=== PATIENT | male | born 1945 | race Caucasian/White ===

== ENCOUNTER 2016-11-27 08:29 | Outpatient (RCR) | payer MEDICARE, OTHER ==
[2016-09-04 15:35] LABS: BASOPHILS % (AUTO) 0 % (0-10); EOSINOPHILS # (AUTO) 0.3 10^3/uL (0.0-0.3); EOSINOPHILS % (AUTO) 5 % (0-10); LYMPHOCYTES # (AUTO) 1.1 X 10^3 (1.0-4.0); LYMPHOCYTES % (AUTO) 18 % (12-44); MEAN CORPUSCULAR HEMOGLOBIN 31 PG (25-34); MEAN CORPUSCULAR HGB CONC 34 G/DL (32-36); MEAN CORPUSCULAR VOLUME 90 FL (80-99); MONOCYTES # (AUTO) 0.7 X 10^3 (0.0-1.0); MONOCYTES % (AUTO) 12 % (0-12); NEUTROPHILS # (AUTO) 3.9 X 10^3 (1.8-7.8); NEUTROPHILS % (AUTO) 65 % (42-75); PLATELET COUNT 233 10^3/uL (130-400); RED BLOOD COUNT 4.46 10^6/uL (4.35-5.85); RED CELL DISTRIBUTION WIDTH 13.9 % (10.0-14.5); WHITE BLOOD COUNT 6.1 10^3/uL (4.3-11.0)
[2016-09-04 16:07] LABS: BILIRUBIN,TOTAL 0.6 MG/DL (0.1-1.0); CREATININE SERUM 1.68 MG/DL (0.60-1.30); MAGNESIUM 2.1 MG/DL (1.8-2.4); TOTAL PROTEIN 6.6 G/DL (6.4-8.2)
[~2016-11-27 08:29] MED LIST: AMIO200T50 PO; AMLO-304 PO; ASP325TEC PO; ASP81CT PO; ASP81TEC PO; ASPI-999 PO; ATOR80TA PO; ATOR80TA75 PO; CEPH500C PO; CLOP75TA PO; E400C PO; EZET10TA23 PO; EZET1TAB16; EZET1TAB16 PO; EZET1TAB44 PO; FENO135C PO; FINA5TAB PO; FISH1CAP15 PO; METO-272 PO; METO100T5 PO; MULT-1029 PO; MULT-850 PO; OMEP20CA12 PO; OMEP20TA2 PO; OMG1KC PO; PRAS10TA6 PO; RABE20TA PO; RAMI10TA PO; RAMI5CAP PO; RMP5C PO; RNT150T PO; VITA-198 PO; WARF-48 PO; WARF5TAB PO; WARF7.5T PO; WRF2.5T PO; WRF5T PO
[2016-11-27 08:48] LABS: BASOPHILS % (AUTO) 1 % (0-10); EOSINOPHILS # (AUTO) 0.4 10^3/uL (0.0-0.3); EOSINOPHILS % (AUTO) 6 % (0-10); LYMPHOCYTES # (AUTO) 1.6 X 10^3 (1.0-4.0); LYMPHOCYTES % (AUTO) 24 % (12-44); MEAN CORPUSCULAR HEMOGLOBIN 32 PG (25-34); MEAN CORPUSCULAR HGB CONC 36 G/DL (32-36); MEAN CORPUSCULAR VOLUME 90 FL (80-99); MEAN PLATELET VOLUME 9.6 FL (7.4-10.4); MONOCYTES % (AUTO) 16 % (0-12); NEUTROPHILS # (AUTO) 3.6 X 10^3 (1.8-7.8); NEUTROPHILS % (AUTO) 55 % (42-75); PLATELET COUNT 211 10^3/uL (130-400); RED CELL DISTRIBUTION WIDTH 13.3 % (10.0-14.5); WHITE BLOOD COUNT 6.6 10^3/uL (4.3-11.0)
[2016-11-27 09:49] LABS: ALBUMIN 4.1 G/DL (3.2-4.5); BILIRUBIN,TOTAL 0.8 MG/DL (0.1-1.0); CALCIUM 9.1 MG/DL (8.5-10.1); CREATININE SERUM 1.51 MG/DL (0.60-1.30); POTASSIUM 4.5 MMOL/L (3.6-5.0); TOTAL PROTEIN 6.9 G/DL (6.4-8.2)
== END 2016-12-03 | disposition home or self-care (01) ==
LOC: ONC 08:29
PROVIDERS: ATTEND Internal Medicine Hematology & Oncology
DX: C91.10 Chronic lymphocytic 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 (principal); I25.10 Atherosclerotic heart disease of native coronary artery without angina pectoris; I10 Essential (primary) hypertension; E11.9 Type 2 diabetes mellitus without complications; E78.5 Hyperlipidemia, unspecified; Z95.1 Presence of aortocoronary bypass graft; Z79.01 Long term (current) use of anticoagulants; Z79.899 Other long term (current) drug therapy; Z45.2 Encounter for adjustment and management of vascular access device
CPT/HCPCS: 36591; 80053; 82232; 82784; 83615; 83735; 85025; 96523; 99213

== ENCOUNTER → 2016-12-26 | Outpatient (CLI) | payer MEDICARE, OTHER ==
[~2016-12-26] MED LIST changes: +TRAM50TA2 PO
--- NOTE | 2016-12-26 14:20 | Diagnostic Imaging Report ---
INDICATION: Pneumonia, cough. Study compared to 09/15/2015. FINDINGS: Lungs are clear. The heart and vessels normal. There is no effusion or pneumothorax. IMPRESSION: No acute-appearing abnormality. Dictated by: Dictated on workstation # [id number]
== END ==
LOC: RAD 09:44
PROVIDERS: ATTEND Nurse Practitioner Family
DX: J18.9 Pneumonia, unspecified organism (principal); R05 Cough
CPT/HCPCS: 71020

== ENCOUNTER 2017-01-30 09:31 | Outpatient (RCR) | payer MEDICARE, OTHER ==
[~2017-01-30 09:31] MED LIST changes: -TRAM50TA2 PO
== END 2017-01-30 12:01 | disposition home or self-care (01) ==
PROVIDERS: ATTEND Orthopaedic Surgery
DX: M25.511 Pain in right shoulder (principal); M75.111 Incomplete rotator cuff tear or rupture of right shoulder, not specified as traumatic

== ENCOUNTER 2017-02-18 10:19 | Outpatient (RCR) | payer MEDICARE, OTHER ==
[2017-02-18 10:44] LABS: BASOPHILS % (AUTO) 0 % (0-10); EOSINOPHILS # (AUTO) 0.3 10^3/uL (0.0-0.3); EOSINOPHILS % (AUTO) 3 % (0-10); LYMPHOCYTES # (AUTO) 1.7 X 10^3 (1.0-4.0); LYMPHOCYTES % (AUTO) 22 % (12-44); MEAN CORPUSCULAR HEMOGLOBIN 32 PG (25-34); MEAN CORPUSCULAR HGB CONC 35 G/DL (32-36); MEAN CORPUSCULAR VOLUME 91 FL (80-99); MEAN PLATELET VOLUME 9.9 FL (7.4-10.4); MONOCYTES # (AUTO) 0.7 X 10^3 (0.0-1.0); MONOCYTES % (AUTO) 9 % (0-12); NEUTROPHILS % (AUTO) 66 % (42-75); PLATELET COUNT 229 10^3/uL (130-400); RED BLOOD COUNT 4.74 10^6/uL (4.35-5.85); WHITE BLOOD COUNT 7.6 10^3/uL (4.3-11.0)
[2017-02-18 11:09] LABS: ALBUMIN 3.9 G/DL (3.2-4.5); BILIRUBIN,TOTAL 0.9 MG/DL (0.1-1.0); CREATININE SERUM 1.59 MG/DL (0.60-1.30); POTASSIUM 4.2 MMOL/L (3.6-5.0); TOTAL PROTEIN 6.5 G/DL (6.4-8.2)
[2017-03-12] MEDS ORDERED: TRAM50TA2 PO (09:00)
== END 2017-03-25 | disposition home or self-care (01) ==
LOC: ONC 10:19
PROVIDERS: ATTEND Internal Medicine Hematology & Oncology
DX: C91.10 Chronic lymphocytic 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 (principal); I25.10 Atherosclerotic heart disease of native coronary artery without angina pectoris; I10 Essential (primary) hypertension; E11.9 Type 2 diabetes mellitus without complications; E78.5 Hyperlipidemia, unspecified; Z95.1 Presence of aortocoronary bypass graft; Z79.01 Long term (current) use of anticoagulants; Z79.899 Other long term (current) drug therapy; Z45.2 Encounter for adjustment and management of vascular access device
CPT/HCPCS: 36591; 80053; 82232; 83615; 85025; 96523; 99213

== ENCOUNTER 2017-03-05 08:40 | Outpatient (CLI) | payer MEDICARE, OTHER ==
[~2017-03-05] VITALS: Ht 172.7 cm; Wt 90.0 kg
[2017-03-05 08:57] VITALS: BP 158/88
== END 2017-03-05 09:17 | disposition home or self-care (01) ==
LOC: PREOP 08:40
PROVIDERS: ATTEND Surgery
DX: Z01.818 Encounter for other preprocedural examination (principal); Z11.2 Encounter for screening for other bacterial diseases; C85.10 Unspecified B-cell lymphoma, unspecified site
CPT/HCPCS: 87081

== ENCOUNTER 2017-03-12 06:00 | Day surgery (SDC) | payer MEDICARE, OTHER ==
[~2017-03-12] VITALS: Ht 172.7 cm; Wt 90.0 kg
[2017-03-12] MEDS ORDERED: LACTATED RINGERS 1,000 ML IV PRN (06:22)
[2017-03-12 06:30] VITALS: BP 140/87
[2017-03-12] MEDS ORDERED: ceFAZolin 1,000 MG (ANCEF) VIAL ONE (06:39)
[2017-03-12] MEDS ORDERED: NS (IVPB) 50 ML ONE (06:40)
[2017-03-12] MEDS ORDERED: ceFAZolin 1 GM/NS 50 ML IVPB IV ONE ×2 (06:45)
[2017-03-12] MEDS ORDERED: CATHETER FLUSH 10 ML SYR IV PRN (07:00)
[2017-03-12] MEDS ORDERED: BUP/EPI 0.25% 1:200,000 (MARCAINE) 30 ML VIAL ONE (07:12)
[2017-03-12] MEDS ORDERED: MIDAZOLAM 2 MG/2 ML (VERSED) VIAL ONE (07:14)
[2017-03-12] MEDS ORDERED: LACTATED RINGERS 1,000 ML IV ONE (07:14)
[2017-03-12] MEDS ORDERED: proPOfol 200 MG/20 ML (DIPRIVAN) VIAL IV ONE (07:14)
--- NOTE | 2017-03-12 08:29 | Progress Note-Pre Operative ---
Pre-Operative Progress Note H&P Reviewed The H&P was reviewed, patient examined and no changes noted. Date H&P Reviewed: Mar 12, 2017 Time H&P Reviewed: 08:29 Pre-Operative Diagnosis: Treated lymphoma KINJAL PORTER MD Mar 12, 2017 8:29 am
--- NOTE | 2017-03-12 08:57 | Progress Note-Post Operative ---
Post-Operative Progess Note Surgeon (s)/Histologic Aide (s) Surgeon KINJAL PORTER MD Histologic Aide: Kat Pre-Operative Diagnosis Treated lymphoma Post-Operative Diagnosis same Post-Op Procedure Note Date of Procedure: Mar 12, 2017 Name of Procedure Performed: removal of [id number] Description of the Procedure: see operative report Findings of the Procedure see operative report Anesthesia Type sedation with local Estimated blood loss (mL): minimal Specimen(s) collected/removed none KINJAL PORTER MD Mar 12, 2017 8:57 am
--- NOTE | 2017-03-12 08:59 | Discharge Inst-Simple/Standard ---
Discharge Inst-Standard Discharge Medications New, Converted or Re-Newed RX: RX on Chart Patient Instructions/Follow Up Plan of Care/Instructions/FU: dressings off in 48 hours. Activity as Tolerated: Yes Discharge Diet: No Restrictions KINJAL PORTER MD Mar 12, 2017 8:59 am
[2017-03-12] MEDS ORDERED: TRAM50TA2 PO (09:00)
[2017-03-12] MEDS ORDERED: morphine INJ 10 MG/ML 1ML (SYR OR VIAL) IVP PRN (09:15)
[2017-03-12 09:25] VITALS: BP 141/76
[2017-03-12 09:55] VITALS: BP 147/83
--- NOTE | 2017-03-12 23:22 | OPERATIVE REPORT ---
DATE OF SERVICE: 03/12/2017 PREOPERATIVE DIAGNOSIS: Treated lymphoma. POSTOPERATIVE DIAGNOSIS: Treated lymphoma. OPERATION: Removal of Infusaport. SURGEON: Kinjal Porter MD ANESTHESIA: Sedation with local. BLOOD LOSS: Minimal. FLUIDS: 500 mL of crystalloid. WOUND TYPE: Type 1 (clean wound). INDICATION FOR PROCEDURE: This gentleman has completed systemic therapy to manage lymphoma. Therefore, it was felt reasonable to remove the Infusaport, after confirming with his oncologist. Informed consent was obtained after reviewing the procedure in detail. DESCRIPTION OF PROCEDURE: He was placed supine on the operating room table, and our anesthesiologist administered sedation, monitored his vital signs. A gram of Ancef was administered intravenously as prophylaxis against wound infection. Sequential compression devices were placed around his legs to minimize the risk of venous thrombosis. His right infraclavicular fossa was prepared and draped in the usual sterile manner. Local anesthesia was achieved using 0.25% Marcaine with epinephrine. A secondary incision was made along the previous scar, and the Infusaport removed without risking air embolism. The pocket was irrigated with saline, and the incision closed using 3-0 Vicryl for the subcutaneous tissue and 4-0 Vicryl for skin in subcuticular fashion. He tolerated the procedure well and was taken to the recovery room in a stable condition. Needle, sponges and instruments were correct at the end of the operation. Job ID: [id number] DocumentID: [id number] Dictated Date: 03/12/2017 08:54:35 Phone Specialist Date: 03/12/2017 23:03:40 Dictated By: KINJAL PORTER MD [facility]
== END 2017-03-12 10:10 | disposition home or self-care (01) ==
LOC: SDC 06:00
PROVIDERS: ATTEND Surgery
DX: Z08 Encounter for follow-up examination after completed treatment for malignant neoplasm (principal); Z85.72 Personal history of non-Hodgkin lymphomas

== ENCOUNTER 2017-05-27 08:47 | Outpatient (RCR) | payer MEDICARE, OTHER ==
[~2017-05-27 08:47] MED LIST changes: +TRAM50TA2 PO
[2017-05-27 09:17] LABS: BASOPHILS % (AUTO) 1 % (0-10); EOSINOPHILS # (AUTO) 0.4 10^3/uL (0.0-0.3); EOSINOPHILS % (AUTO) 5 % (0-10); LYMPHOCYTES # (AUTO) 1.5 X 10^3 (1.0-4.0); LYMPHOCYTES % (AUTO) 20 % (12-44); MEAN CORPUSCULAR HEMOGLOBIN 31 PG (25-34); MEAN CORPUSCULAR HGB CONC 33 G/DL (32-36); MEAN CORPUSCULAR VOLUME 92 FL (80-99); MEAN PLATELET VOLUME 9.6 FL (7.4-10.4); MONOCYTES # (AUTO) 1.1 X 10^3 (0.0-1.0); MONOCYTES % (AUTO) 15 % (0-12); NEUTROPHILS # (AUTO) 4.4 X 10^3 (1.8-7.8); NEUTROPHILS % (AUTO) 59 % (42-75); PLATELET COUNT 282 10^3/uL (130-400); RED BLOOD COUNT 4.59 10^6/uL (4.35-5.85); RED CELL DISTRIBUTION WIDTH 13.2 % (10.0-14.5); WHITE BLOOD COUNT 7.4 10^3/uL (4.3-11.0)
[2017-05-27 09:59] LABS: ALBUMIN 3.8 GM/DL (3.2-4.5); BILIRUBIN,TOTAL 0.8 MG/DL (0.1-1.0); CALCIUM 9.4 MG/DL (8.5-10.1); CREATININE SERUM 1.33 MG/DL (0.60-1.30); POTASSIUM 4.6 MMOL/L (3.6-5.0)
== END 2017-08-16 | disposition home or self-care (01) ==
LOC: ONC 08:47
PROVIDERS: ATTEND Internal Medicine Hematology & Oncology
DX: C91.10 Chronic lymphocytic 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 (principal); I25.10 Atherosclerotic heart disease of native coronary artery without angina pectoris; I10 Essential (primary) hypertension; E11.9 Type 2 diabetes mellitus without complications; E78.5 Hyperlipidemia, unspecified; Z95.1 Presence of aortocoronary bypass graft; Z79.01 Long term (current) use of anticoagulants; Z79.899 Other long term (current) drug therapy
CPT/HCPCS: 36415; 80053; 82232; 82784; 83615; 85025; 99213

== ENCOUNTER 2017-08-25 13:22 | Outpatient (RCR) | payer MEDICARE, OTHER ==
[2017-08-25 13:34] LABS: BASOPHILS % (AUTO) 1 % (0-10); EOSINOPHILS # (AUTO) 0.4 10^3/uL (0.0-0.3); EOSINOPHILS % (AUTO) 7 % (0-10); LYMPHOCYTES # (AUTO) 1.5 X 10^3 (1.0-4.0); LYMPHOCYTES % (AUTO) 24 % (12-44); MEAN CORPUSCULAR HEMOGLOBIN 30 PG (25-34); MEAN CORPUSCULAR HGB CONC 33 G/DL (32-36); MEAN CORPUSCULAR VOLUME 89 FL (80-99); MEAN PLATELET VOLUME 10.3 FL (7.4-10.4); MONOCYTES # (AUTO) 0.7 X 10^3 (0.0-1.0); MONOCYTES % (AUTO) 11 % (0-12); NEUTROPHILS # (AUTO) 3.5 X 10^3 (1.8-7.8); NEUTROPHILS % (AUTO) 57 % (42-75); PLATELET COUNT 247 10^3/uL (130-400); RED BLOOD COUNT 4.72 10^6/uL (4.35-5.85); RED CELL DISTRIBUTION WIDTH 13.9 % (10.0-14.5); WHITE BLOOD COUNT 6.1 10^3/uL (4.3-11.0)
[2017-08-25 13:57] LABS: ALBUMIN 3.9 GM/DL (3.2-4.5); BILIRUBIN,TOTAL 0.6 MG/DL (0.1-1.0); CALCIUM 9.1 MG/DL (8.5-10.1); CREATININE SERUM 1.47 MG/DL (0.60-1.30); POTASSIUM 4.1 MMOL/L (3.6-5.0); TOTAL PROTEIN 7.2 GM/DL (6.4-8.2)
== END 2017-09-03 13:03 | disposition home or self-care (01) ==
LOC: ONC 13:22
PROVIDERS: ATTEND Internal Medicine Hematology & Oncology
DX: C91.10 Chronic lymphocytic 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 (principal); I25.10 Atherosclerotic heart disease of native coronary artery without angina pectoris; I10 Essential (primary) hypertension; E11.9 Type 2 diabetes mellitus without complications; E78.5 Hyperlipidemia, unspecified; Z95.1 Presence of aortocoronary bypass graft; Z79.01 Long term (current) use of anticoagulants; Z79.899 Other long term (current) drug therapy
CPT/HCPCS: 36415; 80053; 82232; 83615; 85025

== ENCOUNTER 2017-09-03 13:50 | Outpatient (RCR) | payer MEDICARE, OTHER ==
[2017-12-04 13:03] LABS: BASOPHILS % (AUTO) 0 % (0-10); EOSINOPHILS # (AUTO) 0.3 10^3/uL (0.0-0.3); EOSINOPHILS % (AUTO) 4 % (0-10); HEMATOCRIT 44 % (40-54); HEMOGLOBIN 15.5 G/DL (13.3-17.7); LYMPHOCYTES # (AUTO) 2.4 X 10^3 (1.0-4.0); LYMPHOCYTES % (AUTO) 31 % (12-44); MEAN CORPUSCULAR HEMOGLOBIN 31 PG (25-34); MEAN CORPUSCULAR HGB CONC 35 G/DL (32-36); MEAN CORPUSCULAR VOLUME 89 FL (80-99); MEAN PLATELET VOLUME 10.4 FL (7.4-10.4); MONOCYTES # (AUTO) 0.8 X 10^3 (0.0-1.0); MONOCYTES % (AUTO) 10 % (0-12); NEUTROPHILS # (AUTO) 4.2 X 10^3 (1.8-7.8); NEUTROPHILS % (AUTO) 55 % (42-75); PLATELET COUNT 219 10^3/uL (130-400); RED BLOOD COUNT 4.98 10^6/uL (4.35-5.85); RED CELL DISTRIBUTION WIDTH 14.4 % (10.0-14.5); WHITE BLOOD COUNT 7.6 10^3/uL (4.3-11.0)
[2017-12-04 13:23] LABS: BILIRUBIN,TOTAL 0.8 MG/DL (0.1-1.0); CALCIUM 9.1 MG/DL (8.5-10.1); CREATININE SERUM 1.58 MG/DL (0.60-1.30); TOTAL PROTEIN 7.1 GM/DL (6.4-8.2)
== END 2017-12-02 | disposition home or self-care (01) ==
LOC: ONC 13:50
PROVIDERS: ATTEND Internal Medicine Hematology & Oncology
DX: C91.10 Chronic lymphocytic 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 (principal); I25.10 Atherosclerotic heart disease of native coronary artery without angina pectoris; I10 Essential (primary) hypertension; E11.9 Type 2 diabetes mellitus without complications; E78.5 Hyperlipidemia, unspecified; Z95.1 Presence of aortocoronary bypass graft; Z79.01 Long term (current) use of anticoagulants; Z79.899 Other long term (current) drug therapy
CPT/HCPCS: 99213

== ENCOUNTER 2017-12-04 12:48 | Outpatient (RCR) | payer MEDICARE, OTHER ==
[2018-02-03] MEDS ORDERED: TRAM50TA2 PO (15:59)
== END 2018-03-04 | disposition home or self-care (01) ==
LOC: ONC 12:48
PROVIDERS: ATTEND Internal Medicine Hematology & Oncology
DX: C91.10 Chronic lymphocytic 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 (principal); I25.10 Atherosclerotic heart disease of native coronary artery without angina pectoris; I10 Essential (primary) hypertension; E11.9 Type 2 diabetes mellitus without complications; E78.5 Hyperlipidemia, unspecified; Z95.1 Presence of aortocoronary bypass graft; Z79.01 Long term (current) use of anticoagulants; Z79.899 Other long term (current) drug therapy
CPT/HCPCS: 99213

== ENCOUNTER 2018-02-03 13:22 | Emergency (ER) | payer MEDICARE, OTHER ==
[~2018-02-03] VITALS: Ht 175.3 cm; Wt 88.5 kg
[2018-02-03] MEDS ORDERED: fentaNYL INJECTION 100 MCG/2 ML AMP IVP STA (13:34)
[2018-02-03] MEDS ORDERED: ACETAMINOPHEN 500 MG TAB (TYLENOL) PO STA (13:34)
--- NOTE | 2018-02-03 13:43 | ED General ---
General Chief Complaint: General Problems/Pain Stated Complaint: KIDNEY ISSUES Source of Information: Patient History of Present Illness Date Seen by Provider: Feb 03, 2018 Time Seen by Provider: 13:30 Initial Comments Here with report of left CVA tenderness. Has history of kidney issues and is supposed to be checked out with the golf sales associate from [place] the pain was worse today and he is instructed to come here. Does have history of leukemia and is on blood thinners. Reports that his INR is a little tooth and on Coumadin so they have adjusted that recently. Denies dysuria or diarrhea or blood in his urine. Denies fever or chills. He is instructed to seek care and get ultrasound, labs and UA is reasonable. Denies other changes. Kidney problem found during stress test with cardiology care. Timing/Duration: 2-3 Days Severity: Moderate Associated Systoms: No Cough, No Fever/Chills, No Nausea/Vomiting, No Shortness of Air, No Weakness Allergies and Home Medications Allergies Coded Allergies: No Known Drug Allergies (Unverified , 03/05/17) Home Medications Amiodarone Hcl 200 Mg Tab, 200 MG PO DAILY, (Reported) Aspirin 81 Mg Tab.chew, 81 MG PO DAILY, (Reported) Atorvastatin Calcium 80 Mg Tablet, 80 MG PO EVERY EVENING, (Reported) Fenofibric Acid (Choline) 135 Mg Capsule.dr, 135 MG PO DAILY, (Reported) Finasteride 5 Mg Tablet, 5 MG PO DAILY, (Reported) Fish Oil/Dha/Epa 1 Each Capsule, 1,200 MG PO BID, (Reported) Metoprolol Succinate 50 Mg Tab.sr.24h, 25 MG PO BID, (Reported) Multivitamins W-Minerals/Lut 1 Each Tablet, 1 TAB PO HS, (Reported) Omeprazole 20 Mg Capsule.dr, 20 MG PO DAILY, (Reported) Ramipril 5 Mg Capsule, 5 MG PO DAILY, (Reported) Tramadol HCl 50 Mg Tablet, 50 MG PO Q12H PRN for PAIN-MILD Prescribed by: KINJAL PORTER on 03/12/17 0900 Vitamin E (Dl,Tocopheryl Acet) 1,000 Unit Capsule, 1,000 UNIT PO DAILY, ( Reported) Warfarin Sodium 5 Mg Tablet, 5 MG PO DAILY, (Reported) 2.5MG MON AND FRI, 5MG T,W,TH,SAT,SUN Patient Home Medication List Home Medication List Reviewed: Yes Constitutional: see HPI, No chills, No fever EENTM: no symptoms reported Respiratory: no symptoms reported, No cough, No short of breath Cardiovascular: No chest pain, No edema Gastrointestinal: No abdominal pain, No nausea, No vomiting Genitourinary: No hematuria, pain (left flank CVA area) Musculoskeletal: see HPI, back pain, No muscle pain Skin: no symptoms reported Psychiatric/Neurological: No Symptoms Reported All Other Systems Reviewed Negative Unless Noted: Yes Past Gydosgr-Gzzrxp-Edledp Hx Patient Social History Alcohol Use: Denies Use Recreational Drug Use: No Smoking Status: Former Smoker Type Used: Cigarettes Former Smoker, Quit: Mar 05, 1966 Recent Foreign Travel: No Contact w/Someone Who Travel: No Recent Hopitalizations: Yes Immunizations Up To Date Tetanus Booster (TDap): Unknown Date of Pneumonia Vaccine: Aug 26, 2016 Date of Influenza Vaccine: Aug 26, 2016 Seasonal Allergies Seasonal Allergies: No Surgeries History of Surgeries: Yes (CAROTID ARTERY, LT INGUINAL HERNIA, PORT PLACED) Surgeries: CABG, Gallbladder Respiratory History of Respiratory Disorde: Yes (CPAP) Respiratory Disorders: Sleep Apnea Currently Using CPAP: Yes Cardiovascular History of Cardiac Disorders: Yes (OPEN HEART, STENTS x3, ABLATION) Cardiac Disorders: Atrial Fibrillation, Coronary Artery Disease, Heart Attack, High Cholesterol Neurological History of Neurological Disord: No Reproductive System Hx Reproductive Disorders: No Sexually Transmitted Disease: No HIV/AIDS: No Gastrointestinal History of Gastrointestinal Di: Yes Gastrointestinal Disorders: Gastroesophageal Reflux, Diverticulosis Musculoskeletal History of Musculoskeletal Dis: No Endocrine History of Endocrine Disorders: No HEENT Loss of Vision: Bilateral Hearing Impairment: Denies Cancer History of Cancer: Yes Cancer: Leukemia, Lymphoma Psychosocial History of Psychiatric Problem: No Integumentary History of Skin or Integumenta: No Blood Transfusions History of Blood Disorders: No Adverse Reaction to a Blood Tr: No (N/A) Reviewed Nursing Assessment Reviewed/Agree w Nursing PMH: Yes Family Medical History Significant Family History: No Pertinent Family Hx Physical Exam Vital Signs Vital Signs - First Documented 02/03/18 13:26 Temp 97.3 Pulse 68 Resp 18 B/P (MAP) 133/93 (106) Capillary Refill : General Appearance: No Apparent Distress, WD/WN HEENT: PERRL/EOMI, Pharynx Normal Neck: Non Tender, Supple Respiratory: Lungs Clear, Normal Breath Sounds Cardiovascular: Regular Rate, Rhythm, No Murmur Gastrointestinal: Non Tender, Soft Back: Normal Inspection, No Vertebral Tenderness, CVA Tenderness (L), No CVA Tenderness (R) Extremity: Normal Range of Motion, Non Tender Neurologic/Psychiatric: Alert, Oriented x3 Skin: Normal Color, Warm/Dry Progress/Results/Core Measures Suspected Sepsis SIRS Temperature: Pulse: Respiratory Rate: Laboratory Tests 02/03/18 13:42: White Blood Count 8.1 Blood Pressure / Mean: Laboratory Tests 02/03/18 13:42: Creatinine 1.72H, INR Comment 3.4H, Platelet Count 234, Total Bilirubin 0.7 Results/Orders Lab Results Laboratory Tests Test 02/03/18 13:42 02/03/18 14:02 Range/Units White Blood Count 8.1 4.3-11.0 10^3/uL Red Blood Count 4.62 4.35-5.85 10^6/uL Hemoglobin 14.3 13.3-17.7 G/DL Hematocrit 42 40-54 % Mean Corpuscular Volume 91 80-99 FL Mean Corpuscular Hemoglobin 31 25-34 PG Mean Corpuscular Hemoglobin Concent 34 32-36 G/DL Red Cell Distribution Width 13.8 10.0-14.5 % Platelet Count 234 130-400 10^3/uL Mean Platelet Volume 10.6 H 7.4-10.4 FL Neutrophils (%) (Auto) 59 42-75 % Lymphocytes (%) (Auto) 25 12-44 % Monocytes (%) (Auto) 11 0-12 % Eosinophils (%) (Auto) 5 0-10 % Basophils (%) (Auto) 1 0-10 % Neutrophils # (Auto) 4.8 1.8-7.8 X 10^3 Lymphocytes # (Auto) 2.0 1.0-4.0 X 10^3 Monocytes # (Auto) 0.9 0.0-1.0 X 10^3 Eosinophils # (Auto) 0.4 H 0.0-0.3 10^3/uL Basophils # (Auto) 0.1 0.0-0.1 10^3/uL Prothrombin Time 34.4 H 12.2-14.7 SEC INR Comment 3.4 H 0.8-1.4 Sodium Level 140 135-145 MMOL/L Potassium Level 4.3 3.6-5.0 MMOL/L Chloride Level 110 H 98-107 MMOL/L Carbon Dioxide Level 21 21-32 MMOL/L Anion Gap 9 5-14 MMOL/L Blood Urea Nitrogen 20 H 7-18 MG/DL Creatinine 1.72 H 0.60-1.30 MG/DL Estimat Glomerular Filtration Rate 39 BUN/Creatinine Ratio 12 Glucose Level 113 H 70-105 MG/DL Calcium Level 9.0 8.5-10.1 MG/DL Total Bilirubin 0.7 0.1-1.0 MG/DL Aspartate Amino Transf (AST/SGOT) 22 5-34 U/L Alanine Aminotransferase (ALT/SGPT) 21 0-55 U/L Alkaline Phosphatase 48 40-136 U/L C-Reactive Protein High Sensitivity 0.02 0.00-0.50 MG/DL Total Protein 6.6 6.4-8.2 GM/DL Albumin 4.0 3.2-4.5 GM/DL Amylase Level 100 25-125 U/L Lipase 33 8-78 U/L Urine Color YELLOW Urine Clarity CLEAR Urine pH 5 5-9 Urine Specific [place] 1.020 1.016-1.022 Urine Protein NEGATIVE NEGATIVE Urine Glucose (UA) NEGATIVE NEGATIVE Urine Ketones NEGATIVE NEGATIVE Urine Nitrite NEGATIVE NEGATIVE Urine Bilirubin NEGATIVE NEGATIVE Urine Urobilinogen NORMAL NORMAL MG/DL Urine Leukocyte Esterase NEGATIVE NEGATIVE Urine RBC (Auto) NEGATIVE NEGATIVE Urine RBC NONE /HPF Urine WBC RARE /HPF Urine Squamous Epithelial Cells RARE /HPF Urine Crystals NONE /LPF Urine Bacteria NEGATIVE /HPF Urine Casts NONE /LPF Urine Mucus SMALL H /LPF Urine Culture Indicated NO My Orders Orders - ASTRID WISDOM MD Cbc With Automated Diff (02/03/18 13:34) Comprehensive Metabolic Panel (02/03/18 13:34) Hs C Reactive Protein (02/03/18 13:34) Protime With Inr (02/03/18 13:34) Ua Culture If Indicated (02/03/18 13:34) Saline Lock/Iv-Start (02/03/18 13:34) Acetaminophen Tablet (Tylenol Tablet) (02/03/18 13:34) Fentanyl Injection (Sublimaze Injection (02/03/18 13:34) Us Renal Bilateral [id number] (02/03/18 13:44) Ct Abdomen/Pelvis Wo (02/03/18 14:59) Amylase (02/03/18 15:00) Lipase (3/20/18 15:00) Vital Signs/I&O Vital Sign - Last 12Hours 02/03/18 13:26 Temp 97.3 Pulse 68 Resp 18 B/P (MAP) 133/93 (106) Capillary Refill : Progress Note : Progress Note Seen and evaluated. IV, labs, UA and ultrasound renal studies ordered. Monitor patient. 1500: Ultrasound complete and shows no significant findings. Patient's renal dysfunction appears to be chronic renal insufficiency and not mass related. Patient does have pain. We will add amylase and lipase and get CT of the abdomen and pelvis. This is discussed with patient who agrees. 1555 : CT negative for acute findings. Patient still daily okay. Discharge home with return precautions. Patient verbalize understanding instructions and agreement with plan. Diagnostic Imaging Diagonstic Imaging: Ultrasound Plain Films/CT/US/NM/MRI: other (renal) [facility] [place], [place] NAME: ANGELA HILL [facility] REC#: [id number] PT STATUS: REG ER : 1945 PHYSICIAN: ASTRID WISDOM MD ADMIT DATE: 02/03/18/ER Draft Date of Exam:02/03/18 US RENAL BILATERAL [id number] INDICATION: Left flank pain. TECHNIQUE: Multiple Real-time grayscale images were obtained over both kidneys in various projections. FINDINGS: The right kidney measures 11 x 5.4 x 5.3 cm. The left kidney measures 10.6 x 5.6 x 5.3 cm. Both kidneys demonstrate normal renal cortical thickness and echogenicity. The bladder is normal. Neither ureteral jet was visualized. The IVC was not seen. IMPRESSION: Unremarkable sonographic appearance of both kidneys. Neither ureteral jet was visualized. Dictated on workstation # [id number] Dict: 02/03/18 1448 Trans: 02/03/18 1455 [id number] Interpreted by: CESAR CHAMPION MD Electronically signed by: Diagonstic Imaging: CT Plain Films/CT/US/NM/MRI: abdomen, pelvis Comments [facility] [place] [place] NAME: ANGELA HILL [facility] REC#: [id number] PT STATUS: REG ER : 1945 PHYSICIAN: ASTRID WISDOM MD ADMIT DATE: 02/03/18/ER Draft Date of Exam:02/03/18 CT ABDOMEN/PELVIS WO PROCEDURE: CT abdomen and pelvis without contrast. TECHNIQUE: Multiple contiguous axial images were obtained through the abdomen and pelvis without the use of intravenous contrast. INDICATION: Left-sided pain. FINDINGS: The previous CT abdomen/pelvis exam of 06/07/2016 failed to show any sign of an acute abnormality. On this exam, there is still no evidence for nephrolithiasis or urolithiasis, and the kidneys do not appear to be obstructed. The urinary bladder is grossly unremarkable. The prostate gland is mildly enlarged but stable in size when compared to the prior study. The gland measures approximately 5.4 cm in maximum transverse diameter. As noted on the previous study, there is extensive diverticulosis of the sigmoid and distal descending colon. There is still no evidence for acute diverticulitis, however. The postsurgical changes involving the inguinal canal on the left noted previously are again evident. There is still a fat-containing hernia in the left inguinal canal. There is no incarceration or obstruction of the bowel in this area, however. The appendix is partially filled with gas and not abnormally thickened. The liver, spleen, pancreas, adrenals, aorta, and inferior vena cava show no sign of an acute abnormality. The gallbladder is surgically absent. The stomach is partially filled with fluid and particulate matter and consequently difficult to assess. The small hiatal hernia seen previously is again evident and no different. The lung bases are clear. The bone window show no evidence for a fracture or for a destructive lesion. IMPRESSION: 1. There is still no evidence for nephrolithiasis or urolithiasis, and the kidneys do not appear to be obstructed. 2. There is extensive diverticulosis of the sigmoid and descending colon, but there is no evidence for acute diverticulitis. 3. The remainder of the abdomen and pelvis is stable when compared to the prior exam. No new abnormality has developed. Dictated on workstation # [id number] Dict: 02/03/18 1522 Trans: 02/03/18 1538 [id number] Interpreted by: ELIZABETH OQUENDO MD Electronically signed by: Departure Impression Impression: Primary Impression: Left flank pain Additional Impression: Muscle strain Disposition: HOME, SELF-CARE Condition: Improved Departure-Patient Inst. Decision time for Depature: 15:58 Referrals: MARYLOU BARAJAS MD (PCP/Family) Primary Care Physician Patient Instructions: Flank Pain (DC), Muscle Strain (DC) Add. Discharge Instructions: All discharge instructions reviewed with patient and/or family. Voiced understanding. You may take Tylenol 1000 mg every 8 hours as needed for pain. Take other medications as directed. Follow-up with your Dr. in a few days for recheck. Return for worse pain, fever, vomiting, weakness, breathing problems or other concerns as needed. Scripts Tramadol HCl (Tramadol HCl) 50 Mg Tablet 50 MG PO Q6H Y for PAIN, #20 TAB 0 Refills Prov: ASTRID WISDOM MD 02/03/18 ASTRID WISDOM MD Feb 03, 2018 13:43
[2018-02-03 13:54] LABS: BASOPHILS # (AUTO) 0.1 10^3/uL (0.0-0.1); BASOPHILS % (AUTO) 1 % (0-10); EOSINOPHILS # (AUTO) 0.4 10^3/uL (0.0-0.3); EOSINOPHILS % (AUTO) 5 % (0-10); HEMATOCRIT 42 % (40-54); HEMOGLOBIN 14.3 G/DL (13.3-17.7); LYMPHOCYTES % (AUTO) 25 % (12-44); MEAN CORPUSCULAR HEMOGLOBIN 31 PG (25-34); MEAN CORPUSCULAR HGB CONC 34 G/DL (32-36); MEAN CORPUSCULAR VOLUME 91 FL (80-99); MEAN PLATELET VOLUME 10.6 FL (7.4-10.4); MONOCYTES # (AUTO) 0.9 X 10^3 (0.0-1.0); MONOCYTES % (AUTO) 11 % (0-12); NEUTROPHILS # (AUTO) 4.8 X 10^3 (1.8-7.8); NEUTROPHILS % (AUTO) 59 % (42-75); PLATELET COUNT 234 10^3/uL (130-400); RED BLOOD COUNT 4.62 10^6/uL (4.35-5.85); RED CELL DISTRIBUTION WIDTH 13.8 % (10.0-14.5); WHITE BLOOD COUNT 8.1 10^3/uL (4.3-11.0)
[2018-02-03 14:06] LABS: INR 3.4 (0.8-1.4); PROTHROMBIN TIME PATIENT 34.4 SEC (12.2-14.7)
[2018-02-03 14:09] LABS: BILIRUBIN,URINE NEGATIVE (NEGATIVE); CLARITY,URINE CLEAR; COLOR,URINE YELLOW; GLUCOSE, URINE (UA) NEGATIVE (NEGATIVE); KETONES,URINE NEGATIVE (NEGATIVE); LEUKOCYTE ESTERASE ,URINE NEGATIVE (NEGATIVE); NITRITE,URINE NEGATIVE (NEGATIVE); PH,URINE 5 (5-9); PROTEIN,URINE NEGATIVE (NEGATIVE); UROBILINOGEN,URINE NORMAL (NORMAL)
[2018-02-03 14:12] LABS: BILIRUBIN,TOTAL 0.7 MG/DL (0.1-1.0); CREATININE SERUM 1.72 MG/DL (0.60-1.30); POTASSIUM 4.3 MMOL/L (3.6-5.0); TOTAL PROTEIN 6.6 GM/DL (6.4-8.2)
[2018-02-03 14:18] LABS: BACTERIA,URINE NEGATIVE /HPF; SQUAMOUS EPITHELIAL CELL,UR RARE /HPF; WBC,URINE RARE /HPF
--- NOTE | 2018-02-03 14:56 | Diagnostic Imaging Report ---
INDICATION: Left flank pain. TECHNIQUE: Multiple Real-time grayscale images were obtained over both kidneys in various projections. FINDINGS: The right kidney measures 11 x 5.4 x 5.3 cm. The left kidney measures 10.6 x 5.6 x 5.3 cm. Both kidneys demonstrate normal renal cortical thickness and echogenicity. The bladder is normal. Neither ureteral jet was visualized. The IVC was not seen. IMPRESSION: Unremarkable sonographic appearance of both kidneys. Neither ureteral jet was visualized. Dictated by: Dictated on workstation # [id number]
[2018-02-03 15:17] LABS: AMYLASE 100 U/L (25-125); LIPASE 33 U/L (8-78)
--- NOTE | 2018-02-03 15:39 | Diagnostic Imaging Report ---
PROCEDURE: CT abdomen and pelvis without contrast. TECHNIQUE: Multiple contiguous axial images were obtained through the abdomen and pelvis without the use of intravenous contrast. INDICATION: Left-sided pain. FINDINGS: The previous CT abdomen/pelvis exam of 06/07/2016 failed to show any sign of an acute abnormality. On this exam, there is still no evidence for nephrolithiasis or urolithiasis, and the kidneys do not appear to be obstructed. The urinary bladder is grossly unremarkable. The prostate gland is mildly enlarged but stable in size when compared to the prior study. The gland measures approximately 5.4 cm in maximum transverse diameter. As noted on the previous study, there is extensive diverticulosis of the sigmoid and distal descending colon. There is still no evidence for acute diverticulitis, however. The postsurgical changes involving the inguinal canal on the left noted previously are again evident. There is still a fat-containing hernia in the left inguinal canal. There is no incarceration or obstruction of the bowel in this area, however. The appendix is partially filled with gas and not abnormally thickened. The liver, spleen, pancreas, adrenals, aorta, and inferior vena cava show no sign of an acute abnormality. The gallbladder is surgically absent. The stomach is partially filled with fluid and particulate matter and consequently difficult to assess. The small hiatal hernia seen previously is again evident and no different. The lung bases are clear. The bone window show no evidence for a fracture or for a destructive lesion. IMPRESSION: 1. There is still no evidence for nephrolithiasis or urolithiasis, and the kidneys do not appear to be obstructed. 2. There is extensive diverticulosis of the sigmoid and descending colon, but there is no evidence for acute diverticulitis. 3. The remainder of the abdomen and pelvis is stable when compared to the prior exam. No new abnormality has developed. Dictated by: Dictated on workstation # [id number]
[2018-02-03] MEDS ORDERED: TRAM50TA2 PO (15:59)
[2018-02-03 16:10] VITALS: BP 133/93
== END 2018-02-03 16:10 | disposition home or self-care (01) ==
LOC: EDUNIT# 13:22 → ER 13:24
DX: S39.012A Strain of muscle, fascia and tendon of lower back, initial encounter (principal); R10.9 Unspecified abdominal pain; G47.30 Sleep apnea, unspecified; I48.91 Unspecified atrial fibrillation; I25.10 Atherosclerotic heart disease of native coronary artery without angina pectoris; I25.2 Old myocardial infarction; E78.00 Pure hypercholesterolemia, unspecified; K21.9 Gastro-esophageal reflux disease without esophagitis; Z95.5 Presence of coronary angioplasty implant and graft; Z79.01 Long term (current) use of anticoagulants; Z85.6 Personal history of leukemia; Z95.1 Presence of aortocoronary bypass graft; Z87.19 Personal history of other diseases of the digestive system; Z87.891 Personal history of nicotine dependence; Z79.82 Long term (current) use of aspirin; X58.XXXA Exposure to other specified factors, initial encounter
CPT/HCPCS: 36415; 74176; 76770; 80053; 81000; 82150; 83690; 85025; 85610; 86141; 96374

== ENCOUNTER 2018-03-05 10:41 | Outpatient (RCR) | payer MEDICARE, OTHER ==
[2018-03-05 10:57] LABS: BASOPHILS % (AUTO) 1 % (0-10); EOSINOPHILS # (AUTO) 0.3 10^3/uL (0.0-0.3); EOSINOPHILS % (AUTO) 4 % (0-10); HEMATOCRIT 42 % (40-54); HEMOGLOBIN 14.5 G/DL (13.3-17.7); LYMPHOCYTES # (AUTO) 1.5 X 10^3 (1.0-4.0); LYMPHOCYTES % (AUTO) 19 % (12-44); MEAN CORPUSCULAR HEMOGLOBIN 31 PG (25-34); MEAN CORPUSCULAR HGB CONC 34 G/DL (32-36); MEAN CORPUSCULAR VOLUME 90 FL (80-99); MEAN PLATELET VOLUME 9.7 FL (7.4-10.4); MONOCYTES # (AUTO) 0.7 X 10^3 (0.0-1.0); MONOCYTES % (AUTO) 9 % (0-12); NEUTROPHILS # (AUTO) 5.2 X 10^3 (1.8-7.8); NEUTROPHILS % (AUTO) 68 % (42-75); PLATELET COUNT 234 10^3/uL (130-400); RED BLOOD COUNT 4.71 10^6/uL (4.35-5.85); RED CELL DISTRIBUTION WIDTH 13.6 % (10.0-14.5); WHITE BLOOD COUNT 7.6 10^3/uL (4.3-11.0)
[2018-03-05 11:13] LABS: ALBUMIN 4.1 GM/DL (3.2-4.5); BILIRUBIN,TOTAL 0.8 MG/DL (0.1-1.0); CALCIUM 9.2 MG/DL (8.5-10.1); CREATININE SERUM 1.5 MG/DL (0.60-1.30); POTASSIUM 4.5 MMOL/L (3.6-5.0); TOTAL PROTEIN 6.8 GM/DL (6.4-8.2)
== END 2018-06-03 | disposition home or self-care (01) ==
LOC: ONC 10:41
PROVIDERS: ATTEND Internal Medicine Hematology & Oncology
DX: C91.10 Chronic lymphocytic 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 (principal); I25.10 Atherosclerotic heart disease of native coronary artery without angina pectoris; I10 Essential (primary) hypertension; E11.9 Type 2 diabetes mellitus without complications; E78.5 Hyperlipidemia, unspecified; Z95.1 Presence of aortocoronary bypass graft; Z79.01 Long term (current) use of anticoagulants; Z79.899 Other long term (current) drug therapy
CPT/HCPCS: 36415; 80053; 83615; 85025; 99213

== ENCOUNTER 2018-06-11 08:14 | Outpatient (RCR) | payer MEDICARE, OTHER ==
[~2018-06-11 08:14] MED LIST changes: -RAMI5CAP PO; +RAMI5CAP65 PO
[2018-06-11 08:34] LABS: BASOPHILS # (AUTO) 0.1 10^3/uL (0.0-0.1); BASOPHILS % (AUTO) 1 % (0-10); EOSINOPHILS # (AUTO) 0.4 10^3/uL (0.0-0.3); EOSINOPHILS % (AUTO) 7 % (0-10); HEMATOCRIT 41 % (40-54); HEMOGLOBIN 14.3 G/DL (13.3-17.7); LYMPHOCYTES # (AUTO) 1.8 X 10^3 (1.0-4.0); LYMPHOCYTES % (AUTO) 29 % (12-44); MEAN CORPUSCULAR HEMOGLOBIN 32 PG (25-34); MEAN CORPUSCULAR HGB CONC 35 G/DL (32-36); MEAN CORPUSCULAR VOLUME 91 FL (80-99); MEAN PLATELET VOLUME 10.1 FL (7.4-10.4); MONOCYTES # (AUTO) 0.7 X 10^3 (0.0-1.0); MONOCYTES % (AUTO) 11 % (0-12); NEUTROPHILS # (AUTO) 3.2 X 10^3 (1.8-7.8); NEUTROPHILS % (AUTO) 52 % (42-75); PLATELET COUNT 238 10^3/uL (130-400); RED BLOOD COUNT 4.48 10^6/uL (4.35-5.85); RED CELL DISTRIBUTION WIDTH 13.5 % (10.0-14.5); WHITE BLOOD COUNT 6.2 10^3/uL (4.3-11.0)
[2018-06-11 09:02] LABS: ALBUMIN 3.9 GM/DL (3.2-4.5); BILIRUBIN,TOTAL 0.6 MG/DL (0.1-1.0); CALCIUM 9.1 MG/DL (8.5-10.1); CREATININE SERUM 1.54 MG/DL (0.60-1.30); POTASSIUM 4.5 MMOL/L (3.6-5.0); TOTAL PROTEIN 6.7 GM/DL (6.4-8.2)
== END 2018-06-16 | disposition home or self-care (01) ==
LOC: ONC 08:14
PROVIDERS: ATTEND Internal Medicine Hematology & Oncology
DX: C91.10 Chronic lymphocytic 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 (principal); I25.10 Atherosclerotic heart disease of native coronary artery without angina pectoris; I10 Essential (primary) hypertension; E11.9 Type 2 diabetes mellitus without complications; E78.5 Hyperlipidemia, unspecified; Z95.1 Presence of aortocoronary bypass graft; Z79.01 Long term (current) use of anticoagulants; Z79.899 Other long term (current) drug therapy
CPT/HCPCS: 36415; 80053; 83615; 85025; 99213

== ENCOUNTER 2018-08-07 11:29 | Outpatient (RCR) | payer MEDICARE, OTHER | END 2018-08-07 12:48 | disposition home or self-care (01) | PROVIDERS: ATTEND Nurse Practitioner Family | DX: M17.12 Unilateral primary osteoarthritis, left knee (principal) ==

== ENCOUNTER 2018-11-01 21:33 | Inpatient (IN) | payer MEDICARE, OTHER ==
[~2018-11-01] VITALS: Ht 180.3 cm; Wt 90.4 kg
[2018-11-01] MEDS ORDERED: NITROGLYCERIN 0.4 MG SL TABS BTL 25'S SL ONE (21:39)
[2018-11-01] MEDS ORDERED: ASPIRIN 81 MG CHEW (CHILDREN'S ASA) ONE (21:39)
--- OUTSIDE RECORDS SUMMARY | 2018-11-01 21:41 | XMS REPORT | CCD ---
Author Author Amanda Celestin MD, [facility] Address [address] [place] [address] Phone Care Team Providers Care Form Drafter Name Role Phone PP Unavailable CCM Unavailable Summary Purpose Interface Exchange Insurance Providers Payer name Policy type / Coverage type Covered libertarian ID Effective Begin Date Effective End Date WPS Medicare Part B [id number] Unknown Link [employer] [id number] Unknown Family history Brother Diagnosis Age At Onset pancreatic cancer Unknown Sister Diagnosis Age At Onset Leukemia Unknown Father Diagnosis Age At Onset Heart Attack Unknown Aneursym Unknown Mother Diagnosis Age At Onset Stroke Unknown Dementia Unknown Social History Social History Element Codes Description Effective Dates Marital status Unknown Griselda 03/25/2017 Number of children Unknown 2 05/02/2015 Living arrangements Unknown House 05/02/2015 Employment Unknown Retired 05/02/[address]: 0020576 Former smoker Quit in 1966 05/02/2015 Number of years using tobacco Unknown 5 - 10 05/02/2015 Allergies, Adverse Reactions, Alerts Substance Reaction Codes Entered Date Inactivated Date Status * NO KNOWN FOOD ALLERGIES Unknown 05/02/2015 No Inactive Date Active NO KNOWN DRUG ALLERGIES Unknown 05/02/2015 No Inactive Date Active Past Medical History Illness Codes Condition Status Onset Date Resolved Date Encounter for screening for malignant neoplasm of colon ICD-9: V76.51 ICD-10: Z12.11 Active 04/08/2018 Unknown Encounter for general adult medical examination with abnormal findings ICD-9: V70.0 ICD-10: Z00.01 Active 10/31/2017 Unknown Low back pain ICD-9: 724.2 ICD-10: M54.5 Active 03/31/2018 Unknown Muscle spasm of back ICD-9: 724.8 ICD-10: M62.830 Active 03/31/2018 Unknown Actinic keratosis ICD- 9: 702.0 ICD-10: L57.0 Active 11/26/2017 Unknown Other hypertrophic disorders of the skin ICD-9: 701.9 ICD-10: L91.8 Active 11/26/2017 Unknown Essential (primary) hypertension ICD-9: 401.9 ICD-10: I10 Active 11/20/2016 Unknown Mild cognitive impairment, so stated ICD-9: 331.83 ICD-10: G31.84 Active 10/07/2017 Unknown Cough ICD-9: 786.2 ICD-10: R05 Active 12/01/2016 Unknown Pneumonia due to other streptococci ICD-9: 482.39 ICD-10: J15.4 Active 12/01/2016 Unknown Left lower quadrant pain ICD-9: 789.04 ICD-10: R10.32 Active 05/08/2017 Unknown Other fatigue ICD-9: 780.79 ICD-10: R53.83 Active 05/08/2017 Unknown Allergic rhinitis due to pollen ICD-9: 477.0 ICD-10: J30.1 Active 01/21/2017 Unknown Other allergic rhinitis ICD-9: 477.8 ICD-10: J30.89 Active 07/28/2016 Unknown Pneumonia, unspecified organism ICD-9: 486 ICD-10: J18.9 Active 06/26/2016 Unknown Encounter for general adult medical examination without abnormal findings ICD-9: V70.9 ICD-10: Z00.00 Active 10/24/2016 Unknown Mixed hyperlipidemia ICD-9: 272.2 ICD-10: E78.2 Active 06/23/2016 Unknown Gastro-esophageal reflux disease without esophagitis ICD-9: 530.81 ICD-10: K21.9 Active 02/20/2016 Unknown Hypertension Unknown Active 10/18/2015 Unknown Chronic lymphocytic 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 ICD-9: 204.10 ICD-10: C91.10 Active 10/17/2015 Unknown Diverticulitis ICD-9: 562.11 Active 05/01/2015 Unknown Problems Condition Codes Effective Dates Condition Status Encounter for screening for malignant neoplasm of colon ICD-9: V76.51 ICD-10: Z12.11 04/08/2018 Active Encounter for general adult medical examination with abnormal findings ICD-9: V70.0 ICD-10: Z00.01 10/31/2017 Active Low back pain ICD-9: 724.2 ICD-10: M54.5 03/31/2018 Active Muscle spasm of back ICD-9: 724.8 ICD-10: M62.830 03/31/2018 Active Actinic keratosis ICD- 9: 702.0 ICD-10: L57.0 11/26/2017 Active Other hypertrophic disorders of the skin ICD-9: 701.9 ICD-10: L91.8 11/26/2017 Active Essential (primary) hypertension ICD-9: 401.9 ICD-10: I10 11/20/2016 Active Mild cognitive impairment, so stated ICD-9: 331.83 ICD-10: G31.84 10/07/2017 Active Cough ICD-9: 786.2 ICD-10: R05 12/01/2016 Active Pneumonia due to other streptococci ICD-9: 482.39 ICD-10: J15.4 12/01/2016 Active Left lower quadrant pain ICD-9: 789.04 ICD-10: R10.32 05/08/2017 Active Other fatigue ICD-9: 780.79 ICD-10: R53.83 05/08/2017 Active Allergic rhinitis due to pollen ICD-9: 477.0 ICD-10: J30.1 01/21/2017 Active Other allergic rhinitis ICD-9: 477.8 ICD-10: J30.89 07/28/2016 Active Pneumonia, unspecified organism ICD-9: 486 ICD-10: J18.9 06/26/2016 Active Encounter for general adult medical examination without abnormal findings ICD-9: V70.9 ICD-10: Z00.00 10/24/2016 Active Mixed hyperlipidemia ICD-9: 272.2 ICD-10: E78.2 06/23/2016 Active Gastro-esophageal reflux disease without esophagitis ICD-9: 530.81 ICD-10: K21.9 02/20/2016 Active Hypertension Unknown 10/18/2015 Active Chronic lymphocytic 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 ICD-9: 204.10 ICD-10: C91.10 10/17/2015 Active Diverticulitis ICD-9: 562.11 05/01/2015 Active Medications Medication Codes Instructions Start Date Stop Date Status Fill Instructions metoprolol tartrate 25 mg tablet RxNorm: 611061 Tablet(s) TAKE 1 TABLET BY MOUTH TWICE DAILY 10/16/2018 No Stop Date Active metoprolol tartrate 25 mg tablet RxNorm: 135288 TAKE 1 TABLET BY MOUTH TWICE DAILY 07/13/2018 10/15/2018 Inactive Trilipix 135 mg capsule,delayed release RxNorm: 954599 1 Capsule(s) PO daily 06/17/2018 10/14/2018 Inactive ramipril 10 mg capsule RxNorm: 815145 TAKE ONE CAPSULE BY MOUTH ONCE DAILY 06/15/2018 No Stop Date Active omeprazole 20 mg capsule,delayed release RxNorm: 556297 Capsule(s) TAKE ONE CAPSULE BY MOUTH ONCE DAILY 06/03/2018 No Stop Date Active omeprazole 20 mg capsule,delayed release RxNorm: 325957 Capsule(s) TAKE ONE CAPSULE BY MOUTH ONCE DAILY 06/02/2018 Inactive metoprolol tartrate 25 mg tablet RxNorm: 161162 TAKE ONE TABLET BY MOUTH TWICE DAILY 02/16/2018 07/12/2018 Inactive omeprazole 20 mg capsule,delayed release RxNorm: 681352 TAKE ONE CAPSULE BY MOUTH ONCE DAILY 01/05/2018 06/01/2018 Inactive metoprolol tartrate 25 mg tablet RxNorm: 463730 TAKE ONE TABLET BY MOUTH TWICE DAILY 10/27/2017 02/15/2018 Inactive azithromycin 250 mg tablet RxNorm: 852751 1 Tablet(s) PO UD 2 tabs on day #1, then 1 pill daily x 4 days 09/22/201707/2018 Inactive omeprazole 20 mg capsule,delayed release RxNorm: 440285 TAKE ONE CAPSULE BY MOUTH ONCE DAILY 06/16/2017 12/12/2017 Inactive metronidazole 500 mg tablet RxNorm: 887587 1 Tablet(s) PO TID 05/08/2017 05/14/2017 Inactive ramipril 10 mg capsule RxNorm: 844274 1 Capsule(s) PO daily 07/201703/19/2018 Inactive Kenalog 40 mg/mL suspension for injection RxNorm: 4121470 Milliliter(s) Inj 01/21/2017 01/21/2017 Inactive ceftriaxone 500 mg solution for injection RxNorm: 2635759 Inj 12/30/2016 12/30/2016 Inactive Phenergan with Codeine Syrup RxNorm: 5-10 Milliliter(s) PO Q6 PRN 12/26/2016 No Stop Date Active Levaquin 500 mg tablet RxNorm: 711910 1 Tablet(s) PO daily 07/201701/01/2017 Inactive Tessangeetha Perles 100 mg capsule RxNorm: 604179 1 Capsule(s) PO TID as needed 12/26/2016 01/04/2017 Inactive prednisone 20 mg tablet RxNorm: 596042 1 Tablet(s) PO BID 12/2612/30/2016 Inactive omeprazole 20 mg capsule,delayed release RxNorm: 861035 TAKE ONE CAPSULE BY MOUTH ONCE DAILY 12/16/2016 06/13/2017 Inactive cefdinir 300 mg capsule RxNorm: 110845 1 Capsule(s) PO BID 12/08/2016 Inactive azithromycin 250 mg tablet RxNorm: 756706 Tablet(s) 2 tabs on day #1, then one tab PO daily x 4 more days 12/02/201606/2017 Inactive metoprolol tartrate 25 mg tablet RxNorm: 683424 1 Tablet(s) PO BID 10/23/2016 10/17/2017 Inactive metoprolol tartrate 25 mg tablet RxNorm: 860014 1 Tablet(s) PO BID 10/23/2016 10/22/2016 Inactive ceftriaxone 500 mg solution for injection RxNorm: 6535196 Inj 06/24/2016 06/24/2016 Inactive cefdinir 300 mg capsule RxNorm: 930493 1 Capsule(s) PO BID 06/201606/30/2016 Inactive omeprazole 20 mg capsule,delayed release RxNorm: 909497 TAKE ONE CAPSULE BY MOUTH DAILY 06/07/2016 12/03/2016 Inactive omeprazole 20 mg capsule,delayed release RxNorm: 993494 TAKE ONE CAPSULE BY MOUTH DAILY 01/29/2016 05/27/2016 Inactive metoprolol tartrate 50 mg tablet RxNorm: 733337 Tablet(s) TAKE ONE TABLET BY MOUTH DAILY 10/11/2015 10/10/2015 Inactive metoprolol tartrate 50 mg tablet RxNorm: 257243 TAKE ONE TABLET BY MOUTH DAILY 10/11/2015 10/22/2016 Inactive omeprazole 20 mg capsule,delayed release RxNorm: 718462 TAKE ONE CAPSULE BY MOUTH DAILY 08/28/2015 01/24/2016 Inactive metoprolol tartrate 50 mg tablet RxNorm: 809106 TAKE ONE TABLET BY MOUTH DAILY 08/11/2015 10/09/2015 Inactive metoprolol tartrate 50 mg tablet RxNorm: 890509 1 Tablet(s) PO daily 06/14/2015 08/10/2015 Inactive omeprazole 20 mg capsule,delayed release RxNorm: 615863 1 Capsule(s) PO daily 05/29/2015 08/26/2015 Inactive omeprazole 20 mg capsule,delayed release RxNorm: 727024 1 Capsule(s) PO daily 05/29/2015 05/28/2015 Inactive metronidazole 500 mg tablet RxNorm: 298176 1 Tablet(s) PO TID 05/02/2015 05/08/2015 Inactive finasteride 5 mg tablet RxNorm: 481564 1 Tablet(s) PO daily No Start Date Active warfarin 5 mg tablet RxNorm: 784066 1 Tablet(s) PO daily No Start Date Active Aspirin Childrens 81 mg chewable tablet RxNorm: 245271 1 Tablet(s) PO daily No Start Date Active amiodarone 200 mg tablet RxNorm: 126916 1 Tablet(s) PO daily No Start Date Active vitamin E (dl, acetate) 1,000 unit capsule RxNorm: 167494 1 Capsule(s) PO daily No Start Date Active atorvastatin 80 mg tablet RxNorm: 933146 1 Tablet(s) PO daily No Start Date Active Fish Oil 120 mg-180 mg capsule RxNorm: 971995 1 Capsule(s) PO BID No Start Date 10/30/2017 Inactive metoprolol tartrate 50 mg tablet RxNorm: 438231 1 Tablet(s) PO daily No Start Date 06/13/2015 Inactive Zetia 10 mg tablet RxNorm: 995828 1 Tablet(s) PO daily No Start Date 10/17/2015 Inactive ramipril 5 mg capsule RxNorm: 928773 1 Capsule(s) PO daily No Start Date 03/24/2017 Inactive Tessalon Perles 100 mg capsule RxNorm: 525116 1 Capsule(s) PO TID as needed No Start Date 12/25/2016 Inactive omeprazole 20 mg capsule,delayed release RxNorm: 743983 1 Capsule(s) PO daily No Start Date 05/28/2015 Inactive Trilipix 135 mg capsule,delayed release RxNorm: 013193 1 Capsule(s) PO daily No Start Date 06/16/2018 Inactive Centrum Silver tablet RxNorm: 1 Tablet(s) PO daily No Start Date 10/30/2017 Inactive Medication Administered Medication Codes Instructions Start Date Status Kenalog 40 mg/mL suspension for injection RxNorm: 0745996 Milliliter 01/21/2017 No longer Active ceftriaxone 500 mg solution for injection RxNorm: 6482443 12/30/2016 No longer Active ceftriaxone 500 mg solution for injection RxNorm: 8211495 06/24/2016 No longer Active Immunizations Vaccine Codes Date Status Influenza CVX: 141 09/11/2015 completed Pneumococcal (Adult) CVX: 33 05/02/2014 completed Assessments Condition Codes Effective Dates Encounter for screening for malignant neoplasm of colon ICD- 10: Z12.11 ICD-9: V76.51 04/08/2018 Encounter for general adult medical examination with abnormal findings ICD-10: Z00.01 ICD-9: V70.0 04/03/2018 Muscle spasm of back ICD-10: M62.830 ICD-9: 724.8 03/31/2018 Low back pain ICD-10: M54.5 ICD-9: 724.2 03/31/2018 Other hypertrophic disorders of the skin ICD-10: L91.8 ICD-9: 701.9 11/26/2017 Actinic keratosis ICD-10: L57.0 ICD-9: 702.0 11/26/2017 Mild cognitive impairment, so stated ICD-10: G31.84 ICD-9: 331.83 10/07/2017 Essential (primary) hypertension ICD-10: I10 ICD-9: 401.9 10/07/2017 Pneumonia due to other streptococci ICD-10: J15.4 ICD-9: 482.39 09/22/2017 Cough ICD-10: R05 ICD-9: 786.2 09/22/2017 Left lower quadrant pain ICD-10: R10.32 ICD-9: 789.04 05/08/2017 Other fatigue ICD-10: R53.83 ICD-9: 780.79 05/08/2017 Allergic rhinitis due to pollen ICD-10: J30.1 ICD-9: 477.0 01/21/2017 Other allergic rhinitis ICD-10: J30.89 ICD-9: 477.8 12/30/2016 Pneumonia, unspecified organism ICD-10: J18.9 ICD-9: 486 12/26/2016 Encounter for general adult medical examination without abnormal findings ICD-10: Z00.00 ICD-9: V70.9 10/25/2016 Mixed hyperlipidemia ICD-10: E78.2 ICD-9: 272.2 10/23/2016 Gastro-esophageal reflux disease without esophagitis ICD-10 : K21.9 ICD-9: 530.81 02/21/2016 Chronic lymphocytic 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 ICD-10: C91.10 ICD-9: 204.10 10/18/2015 Diverticulitis ICD-9: 562.11 05/02/2015 Reason For Visit Reason For Visit Effective Dates Notes Annual Medicare Wellness Exam 04/03/2018 low back pain 03/31/2018 acrochordon (skin tags) 11/26/2017 Annual Medicare Wellness Exam 10/31/2017 ~generic 10/07/2017 Diagnosed with leukemia in Jul 2015 cough 09/22/2017 abdominal pain 05/08/2017 ~generic 03/25/2017 Diagnosed with leukemia in Jul 2015 cough 01/21/2017 sore throat 12/30/2016 sore throat 12/26/2016 sore throat 12/02/2016 ~generic 11/21/2016 Diagnosed with leukemia in Jul 2015 Annual Medicare Wellness Exam 10/25/2016 ~generic 10/23/2016 Diagnosed with leukemia in Jul 2015 cough 07/29/2016 ~generic 06/24/2016 Diagnosed with leukemia in Jul 2015 ~generic 02/21/2016 Diagnosed with leukemia in Jul ~generic 10/18/2015 Diagnosed with leukemia in Jul abdominal pain 05/02/2015 Night sweats Results Observation Observation Code Item Item Code Result Date Pt Igk8078 PT 29.8 seconds 08/17/2018 Pt Vya4254 INR 2.8 08/17/2018 Pt Bvq6281 Low Intensity - 1.5-2.0 08/17/2018 Pt Jrh4481 Mod intensity - 2.0-3.0 08/17/2018 Pt Rvk7595 Hi intensity - 3.0-4.0 08/17/2018 Random Urine Protein/Creatinine Ratio Iou0990 U Prot 7.0 mg/dl 05/18/2018 Random Urine Protein/Creatinine Ratio Weq5688 U CREAT 75.0 mg/dL 05/18/2018 Random Urine Protein/Creatinine Ratio Teb4898 R MTP/Creat Ratio 0.09 05/18/2018 Tibc Ord40 Iron 68 ug/dl 05/18/2018 Tibc Ord40 UIBC 308 ug/dL 05/18/2018 Tibc Ord40 TIBC 376 ug/dL 05/18/2018 Tibc Ord40 Fe-%Sat 18.1 % 05/18/2018 Urinalysis Ord28 U-Color Yellow 05/18/2018 Urinalysis Ord28 U-Clarity Clear 05/18/2018 Urinalysis Ord28 U-Gluc Negative 05/18/2018 Urinalysis Ord28 U-Bili Negative 05/18/2018 Urinalysis Ord28 U-Ketone Negative 05/18/2018 Urinalysis Ord28 U-SG 1.010 05/18/2018 Urinalysis Ord28 U-Blood Negative 05/18/2018 Urinalysis Ord28 U-pH 5.0 05/18/2018 Urinalysis Ord28 U-Protein Negative 05/18/2018 Urinalysis Ord28 U-Urobilin 0.2 E.U./dL E.U./dL 05/18/2018 Urinalysis Ord28 U-Nitrites Negative 05/18/2018 Urinalysis Ord28 U-Leuk Negative 05/18/2018 Urinalysis Ord28 U-Bact None 05/18/2018 Urinalysis Ord28 U-Squamous Epi 0-5 per/HPF 05/18/2018 Urinalysis Ord28 U-Crystal CALCIUM OXALATE per/HPF 05/18/2018 Urinalysis Ord28 U-Mucus 1+ 05/18/2018 Urinalysis Ord28 U-Renal tubular epi None 05/18/2018 Urinalysis Ord28 U-RBC RARE per/HPF 05/18/2018 Urinalysis Ord28 U-Transitional epi RARE per/HPF 05/18/2018 Urinalysis Ord28 U-WBC RARE per/HPF 05/18/2018 Urinalysis Ord28 U-Cast None per/HPF 05/18/2018 Urinalysis Ord28 U-VOL VOLUME SUFFICIENT (10mL) 05/18/2018 Urinalysis Ord28 U-Com Urine saved if culture needed (specimen acceptable for 48 hours from collection if refrigerated) 05/18/2018 Urinalysis Ord28 U-Yeast NEGATIVE 05/18/2018 Parathyroid Hormone Stf161 PTH 36.20 pg/ml 05/18/2018 Uric Acid Ord77 Uric A 3.9 mg/dL 05/18/2018 Vitamin D 25 Oh Kag6901 VITAMIN D, 25 HYDROXY 27.40 ng/mL Cbc With Differential Ord2 WBC 6.21 K/ul 05/18/2018 Cbc With Differential Ord2 RBC 4.66 M/ul 05/18/2018 Cbc With Differential Ord2 HGB 14.4 g/dl 05/18/2018 Cbc With Differential Ord2 Neut% 48.0 % 05/18/2018 Cbc With Differential Ord2 HCT 42.7 % 05/18/2018 Cbc With Differential Ord2 Lymph% 31.2 % 05/18/2018 Cbc With Differential Ord2 MCV 91.6 fl 05/18/2018 Cbc With Differential Ord2 MCH 30.9 pg 05/18/2018 Cbc With Differential Ord2 [place]% 13.8 % 05/18/2018 Cbc With Differential Ord2 MCHC 33.7 pg 05/18/2018 Cbc With Differential Ord2 Eos% 6.8 % 05/18/2018 Cbc With Differential Ord2 PLT 227 K/ul 05/18/2018 Cbc With Differential Ord2 Baso% 0.2 % 05/18/2018 Cbc With Differential Ord2 RDW 14.1 % 05/18/2018 Cbc With Differential Ord2 Neut ABS# 2.98 K/ul 05/18/2018 Cbc With Differential Ord2 Lymph ABS# 1.94 K/ul 05/18/2018 Cbc With Differential Ord2 [place] ABS# 0.9 K/ul 05/18/2018 Cbc With Differential Ord2 Eos ABS# 0.4 K/ul 05/18/2018 Cbc With Differential Ord2 Baso ABS# 0.0 K/ul 05/18/2018 Ferritin Ord22 FERRITIN 43.3 ng/mL 05/18/2018 Pt Vdv2833 PT 27.7 seconds 05/18/2018 Pt Znv0687 INR 2.6 05/18/2018 Pt Rnd4098 Low Intensity - 1.5-2.0 05/18/2018 Pt Vak4149 Mod intensity - 2.0-3.0 05/18/2018 Pt Ssq9489 Hi intensity - 3.0-4.0 05/18/2018 Renal Qox249 NA 141 mEq/L 05/18/2018 Renal Www070 K 4.0 mEq/L 05/18/2018 Renal Vqz606 CL 107 mEq/L 05/18/2018 Renal Mje991 CO2 27.0 mEq/L 05/18/2018 Renal Kxw114 ANION GAP 11 05/18/2018 Renal Dlz992 Osmo 282 mOsmo 05/18/2018 Renal Xpc141 GLUCOSE 83 mg/dL 05/18/2018 Renal Qoq167 BUN 18 mg/dL 05/18/2018 Renal Hxd678 Creat 1.4 mg/dL 05/18/2018 Renal Oyz444 eGFR 55 ml/min/1.73m2 05/18/2018 Renal Psi785 B/C Ratio 13.3 Ratio 05/18/2018 Renal Ofn131 CALCIUM 9.0 mg/dL 05/18/2018 Renal Cpk944 PHOS 2.9 mg/dL 05/18/2018 Renal Ydx059 ALBUMIN 4.0 g/dL 05/18/2018 Metabolic Ord15 NA 139 mEq/L 03/23/2018 Metabolic Ord15 K 4.5 mEq/L 03/23/2018 Metabolic Ord15 CL 104 mEq/L 03/23/2018 Metabolic Ord15 CO2 28.0 mEq/L 03/23/2018 Metabolic Ord15 GLUCOSE 80 mg/dL 03/23/2018 Metabolic Ord15 BUN 19 mg/dL 03/23/2018 Metabolic Ord15 Creat 1.5 mg/dL 03/23/2018 Metabolic Ord15 B/C Ratio 12.4 Ratio 03/23/2018 Metabolic Ord15 eGFR 47 ml/min/1.73m2 03/23/2018 Metabolic Ord15 Osmo 279 mOsmo 03/23/2018 Metabolic Ord15 ANION GAP 12 03/23/2018 Metabolic Ord15 CALCIUM 9.2 mg/dL 03/23/2018 Pt Sno5191 PT 29.0 seconds 03/13/2018 Pt Ufd6955 INR 2.7 03/13/2018 Pt Vmk1046 Low Intensity - 1.5-2.0 03/13/2018 Pt Xwe6464 Mod intensity - 2.0-3.0 03/13/2018 Pt Uht3053 Hi intensity - 3.0-4.0 03/13/2018 Pt Dof2215 PT 31.6 seconds 03/04/2018 Pt Irf3986 INR 3.0 03/04/2018 Pt Lcx2712 Low Intensity - 1.5-2.0 03/04/2018 Pt Wjj5229 Mod intensity - 2.0-3.0 03/04/2018 Pt Pkg0822 Hi intensity - 3.0-4.0 03/04/2018 Pt Vct5935 PT 33.3 seconds 01/29/2018 Pt Dbq4043 INR 3.2 01/29/2018 Pt Fol5105 Low Intensity - 1.5-2.0 01/29/2018 Pt Fct5573 Mod intensity - 2.0-3.0 01/29/2018 Pt Htx3149 Hi intensity - 3.0-4.0 01/29/2018 Pt Cqw0191 PT 26.1 seconds 01/21/2018 Pt Xpk6293 INR 2.4 01/21/2018 Pt Qjw2639 Low Intensity - 1.5-2.0 01/21/2018 Pt Qtp2854 Mod intensity - 2.0-3.0 01/21/2018 Pt Bfc2163 Hi intensity - 3.0-4.0 01/21/2018 Pt Obo0422 PT 35.7 seconds 01/09/2018 Pt Wip6838 INR 3.5 01/09/2018 Pt Mlq8039 Low Intensity - 1.5-2.0 01/09/2018 Pt Rwx9394 Mod intensity - 2.0-3.0 01/09/2018 Pt Sel7322 Hi intensity - 3.0-4.0 01/09/2018 Pt Hrz7770 PT 23.8 seconds 12/04/2017 Pt Mom8152 INR 2.1 12/04/2017 Pt Ulr7704 Low Intensity - 1.5-2.0 12/04/2017 Pt Woy8269 Mod intensity - 2.0-3.0 12/04/2017 Pt Sza6811 Hi intensity - 3.0-4.0 12/04/2017 Pt Bre6155 PT 32.3 seconds 11/12/2017 Pt Bqj5995 INR 3.1 11/12/2017 Pt Bek0110 Low Intensity - 1.5-2.0 11/12/2017 Pt Czc9382 Mod intensity - 2.0-3.0 11/12/2017 Pt Cux6967 Hi intensity - 3.0-4.0 11/12/2017 Pt Izw8639 PT 16.6 seconds 10/20/2017 Pt Gag1385 INR 1.4 10/20/2017 Pt Ylv8251 Low Intensity - 1.5-2.0 10/20/2017 Pt Qeu8215 Mod intensity - 2.0-3.0 10/20/2017 Pt Wad3697 Hi intensity - 3.0-4.0 10/20/2017 Urinalysis Ord28 U-Color Yellow 10/20/2017 Urinalysis Ord28 U-Clarity Clear 10/20/2017 Urinalysis Ord28 U-Gluc Negative 10/20/2017 Urinalysis Ord28 U-Bili Negative 10/20/2017 Urinalysis Ord28 U-Ketone Negative 10/20/2017 Urinalysis Ord28 U-SG 1.020 10/20/2017 Urinalysis Ord28 U-Blood Negative 10/20/2017 Urinalysis Ord28 U-pH 5.5 10/20/2017 Urinalysis Ord28 U-Protein Negative 10/20/2017 Urinalysis Ord28 U-Urobilin 0.2 E.U./dL E.U./dL 10/20/2017 Urinalysis Ord28 U-Nitrites Negative 10/20/2017 Urinalysis Ord28 U-Leuk Negative 10/20/2017 Urinalysis Ord28 U-Bact None 10/20/2017 Urinalysis Ord28 U-Squamous Epi None per/HPF 10/20/2017 Urinalysis Ord28 U-Crystal URIC ACID, MONOSODIUM URATE per/HPF 10/20/2017 Urinalysis Ord28 U-Mucus 1+ 10/20/2017 Urinalysis Ord28 U-Renal tubular epi None 10/20/2017 Urinalysis Ord28 U-RBC RARE per/HPF 10/20/2017 Urinalysis Ord28 U-Transitional epi None per/HPF 10/20/2017 Urinalysis Ord28 U-WBC RARE per/HPF 10/20/2017 Urinalysis Ord28 U-Cast GRANULAR CAST per/HPF 10/20/2017 Urinalysis Ord28 U-VOL VOLUME SUFFICIENT (10mL) 10/20/2017 Urinalysis Ord28 U-Yeast NEGATIVE 10/20/2017 Urinalysis Ord28 U-Com Urine saved if culture needed (specimen acceptable for 48 hours from collection if refrigerated) 10/20/2017 Renal Pmr281 NA 142 mEq/L 10/20/2017 Renal Aoi187 K 4.5 mEq/L 10/20/2017 Renal Klf987 CL 107 mEq/L 10/20/2017 Renal Thd464 CO2 28.0 mEq/L 10/20/2017 Renal Sgk006 ANION GAP 12 10/20/2017 Renal Zlj873 Osmo 288 mOsmo 10/20/2017 Renal Tlv585 GLUCOSE 96 mg/dL 10/20/2017 Renal Svb234 BUN 27 mg/dL 10/20/2017 Renal Jbd959 Creat 1.6 mg/dL 10/20/2017 Renal Hdg975 eGFR 46 ml/min/1.73m2 10/20/2017 Renal Xfh555 B/C Ratio 17.2 Ratio 10/20/2017 Renal Wvf874 CALCIUM 9.4 mg/dL 10/20/2017 Renal Fgt921 PHOS 3.0 mg/dL 10/20/2017 Renal Cpk037 ALBUMIN 4.2 g/dL 10/20/2017 Pt Fto9788 PT 31.2 seconds 10/17/2017 Pt Dmg7125 INR 3.0 10/17/2017 Pt Jky0587 Low Intensity - 1.5-2.0 10/17/2017 Pt Jjw9052 Mod intensity - 2.0-3.0 10/17/2017 Pt Jbf8743 Hi intensity - 3.0-4.0 10/17/2017 Cbc With Differential Ord2 WBC 8.45 K/ul 05/08/2017 Cbc With Differential Ord2 RBC 4.63 M/ul 05/08/2017 Cbc With Differential Ord2 HGB 14.6 g/dl 05/08/2017 Cbc With Differential Ord2 Neut% 68.4 % 05/08/2017 Cbc With Differential Ord2 HCT 43.5 % 05/08/2017 Cbc With Differential Ord2 MCV 94.0 fl 05/08/2017 Cbc With Differential Ord2 Lymph% 15.3 % 05/08/2017 Cbc With Differential Ord2 MCH 31.5 pg 05/08/2017 Cbc With Differential Ord2 [place]% 13.5 % 05/08/2017 Cbc With Differential Ord2 Eos% 2.6 % 05/08/2017 Cbc With Differential Ord2 MCHC 33.6 pg 05/08/2017 Cbc With Differential Ord2 PLT 218 K/ul 05/08/2017 Cbc With Differential Ord2 Baso% 0.2 % 05/08/2017 Cbc With Differential Ord2 Neut ABS# 5.78 K/ul 05/08/2017 Cbc With Differential Ord2 RDW 13.7 % 05/08/2017 Cbc With Differential Ord2 Lymph ABS# 1.29 K/ul 05/08/2017 Cbc With Differential Ord2 [place] ABS# 1.1 K/ul 05/08/2017 Cbc With Differential Ord2 Eos ABS# 0.2 K/ul 05/08/2017 Cbc With Differential Ord2 Baso ABS# 0.0 K/ul 05/08/2017 Comp Metabolic Cnf469 NA 139 mEq/L 05/08/2017 Comp Metabolic Yte315 K 4.1 mEq/L 05/08/2017 Comp Metabolic Upn555 CL 103 mEq/L 05/08/2017 Comp Metabolic Igc221 CO2 28.0 mEq/L 05/08/2017 Comp Metabolic Bqc948 ANION GAP 12 05/08/2017 Comp Metabolic Rkd297 GLUCOSE 75 mg/dL 05/08/2017 Comp Metabolic Eum511 Creat 1.3 mg/dL 05/08/2017 Comp Metabolic Lzi261 eGFR 55 ml/min/1.73m2 05/08/2017 Comp Metabolic Poo909 BUN 20 mg/dL 05/08/2017 Comp Metabolic Lxi467 B/C Ratio 14.9 Ratio 05/08/2017 Comp Metabolic Msr417 CALCIUM 8.8 mg/dL 05/08/2017 Comp Metabolic Upw966 ALK PHOS 51 U/L 05/08/2017 Comp Metabolic Mao358 AST(SGOT) 30 U/L 05/08/2017 Comp Metabolic Wkq475 ALT(SGPT) 31 U/L 05/08/2017 Comp Metabolic Gor732 BILI T 0.9 mg/dL 05/08/2017 Comp Metabolic Ewl089 ALBUMIN 4.0 g/dL 05/08/2017 Comp Metabolic Xsq422 TPRO 6.5 g/dL 05/08/2017 Comp Metabolic Duu866 GLOB 2.6 g/dL 05/08/2017 Comp Metabolic Tmp929 A/G Ratio 1.5 Ratio 05/08/2017 Comp Metabolic Mwb131 Osmo 279 mOsmo 05/08/2017 Pt Gns4160 PT 22.7 seconds 11/22/2016 Pt Pfu3261 INR 2.1 11/22/2016 Pt Frb7508 Low Intensity - 1.5-2.0 11/22/2016 Pt Cyy3943 Mod intensity - 2.0-3.0 11/22/2016 Pt Ufa0754 Hi intensity - 3.0-4.0 11/22/2016 Pt Zdo1174 PT 24.4 seconds 10/25/2016 Pt Iob3239 INR 2.3 10/25/2016 Pt Pkx4071 Low Intensity - 1.5-2.0 10/25/2016 Pt Cmj9375 Mod intensity - 2.0-3.0 10/25/2016 Pt Gth6651 Hi intensity - 3.0-4.0 10/25/2016 Pt Pen8063 PT 23.5 seconds 09/04/2016 Pt Yyx2458 INR 2.2 09/04/2016 Pt Rqr1518 Low Intensity - 1.5-2.0 09/04/2016 Pt Xxg6903 Mod intensity - 2.0-3.0 09/04/2016 Pt Lak4477 Hi intensity - 3.0-4.0 09/04/2016 Pt Xfh1445 PT 26.1 seconds 07/09/2016 Pt Ldn3753 INR 2.6 07/09/2016 Pt Gsn0914 Low Intensity - 1.5-2.0 07/09/2016 Pt Yih8415 Mod intensity - 2.0-3.0 07/09/2016 Pt Fwg8854 Hi intensity - 3.0-4.0 07/09/2016 Pt Ddl2402 PT 19.4 seconds 06/24/2016 Pt Jpb8792 INR 1.7 06/24/2016 Pt Kty8980 Low Intensity - 1.5-2.0 06/24/2016 Pt Jud1254 Mod intensity - 2.0-3.0 06/24/2016 Pt [id number] Hi intensity - 3.0-4.0 06/24/2016 Pt Nid8578 PT 28.9 seconds 04/26/2016 Pt Iez8289 INR 2.9 04/26/2016 Pt Bfe2820 Low Intensity - 1.5-2.0 04/26/2016 Pt [id number] Mod intensity - 2.0-3.0 04/26/2016 Pt Wxn3427 Hi intensity - 3.0-4.0 04/26/2016 Lipid Ord30 CHOL 181 mg/dL 02/29/2016 Lipid Ord30 HDL 33.0 mg/dl 02/29/2016 Lipid Ord30 TRIG 248 mg/dL 02/29/2016 Lipid Ord30 LDL 98 mg/dL 02/29/2016 Lipid Ord30 C/HDL 5.5 Ratio 02/29/2016 Tsh Ord6 hTSH II 1.21 uIU/mL 02/29/2016 Pt [id number] PT 21.8 seconds 02/29/2016 Pt Ril1107 INR 2.0 02/29/2016 Pt Rqq1142 Low Intensity - 1.5-2.0 02/29/2016 Pt Gpb3378 Mod intensity - 2.0-3.0 02/29/2016 Pt Fzd5082 Hi intensity - 3.0-4.0 02/29/2016 Cbc With Differential Ord2 WBC 14.7 K/uL 06/30/2015 Cbc With Differential Ord2 LYM 9.3 K/uL 06/30/2015 Cbc With Differential Ord2 LYM% 63.4 % 06/30/2015 Cbc With Differential Ord2 NEUT/GRAN 4.4 K/uL 06/30/2015 Cbc With Differential Ord2 NEUT/GRAN % 29.6 % 06/30/2015 Cbc With Differential Ord2 MID 1.0 K/uL 06/30/2015 Cbc With Differential Ord2 MID% 7.0 % 06/30/2015 Cbc With Differential Ord2 RBC 4.83 M/uL 06/30/2015 Cbc With Differential Ord2 HGB 14.1 g/dL 06/30/2015 Cbc With Differential Ord2 HCT 44.0 % 06/30/2015 Cbc With Differential Ord2 MCV 91 fL 06/30/2015 Cbc With Differential Ord2 MCH 29 pg 06/30/2015 Cbc With Differential Ord2 MCHC 32 g/dL 06/30/2015 Cbc With Differential Ord2 PLT 233 K/uL 06/30/2015 Cbc With Differential Ord2 RDW 16.2 % 06/30/2015 Comp Metabolic Rae830 NA 138 mEq/L 06/30/2015 Comp Metabolic Fns280 K 4.8 mEq/L 06/30/2015 Comp Metabolic Zhr012 CL 107 mEq/L 06/30/2015 Comp Metabolic Csk541 CO2 27.0 mEq/L 06/30/2015 Comp Metabolic Ylx983 ANION GAP 9 06/30/2015 Comp Metabolic Lwy178 GLUCOSE 98 mg/dL 06/30/2015 Comp Metabolic Mfg700 Creat 1.8 mg/dL 06/30/2015 Comp Metabolic Ghq842 eGFR 40 ml/min/1.73m2 06/30/2015 Comp Metabolic Dtg320 BUN 20 mg/dL 06/30/2015 Comp Metabolic Kpa339 B/C Ratio 11.1 Ratio 06/30/2015 Comp Metabolic Vji494 CALCIUM 9.1 mg/dL 06/30/2015 Comp Metabolic Pzb434 ALK PHOS 39 U/L 06/30/2015 Comp Metabolic Nec614 AST(SGOT) 21 U/L 06/30/2015 Comp Metabolic Jic245 ALT(SGPT) 23 U/L 06/30/2015 Comp Metabolic Dli128 BILI T 0.5 mg/dL 06/30/2015 Comp Metabolic Vps197 ALBUMIN 4.0 g/dL 06/30/2015 Comp Metabolic Nhj732 TPRO 6.6 g/dL 06/30/2015 Comp Metabolic Wsu357 GLOB 2.6 g/dL 06/30/2015 Comp Metabolic Liz284 A/G Ratio 1.5 Ratio 06/30/2015 Comp Metabolic Qem694 Osmo 278 mOsmo 06/30/2015 Pt Bcl7068 PT 26.1 seconds 06/30/2015 Pt [id number] INR 2.5 06/30/2015 Pt Psn0421 Low Intensity - 1.5-2.0 06/30/2015 Pt Orh2001 Mod intensity - 2.0-3.0 06/30/2015 Pt Uzt7080 Hi intensity - 3.0-4.0 06/30/2015 Review of Systems System Result Effective Dates Constitutional No recent illness 2017 Constitutional No chills 04/03/2018 Constitutional No diaphoresis 04/03/2018 Constitutional No fever 04/03/2018 Eyes No blindness 04/03/2018 Ears/Nose/Throat/Neck No nasal discharge 04/03/2018 Cardiovascular No chest pain/pressure Cardiovascular No dyspnea 04/03/2018 Respiratory No cough 04/03/2018 Respiratory No dyspnea 04/03/2018 Neurologic No alteration of consciousness 04/03/2018 Neurologic No mental status change 2017 Constitutional No anorexia 04/03/2018 Constitutional No night sweats 2017 Constitutional No fatigue 04/03/2018 Constitutional No insomnia 04/03/2018 Constitutional No malaise 04/03/2018 Constitutional No weight loss 04/03/2018 Constitutional No weight gain 04/03/2018 Gastrointestinal No abdominal pain 2017 Musculoskeletal back pain 04/03/2018 Genitourinary/Nephrology No dysuria 04/03 Dermatologic No rash 04/03/2018 Constitutional No recent illness 2017 Constitutional No anorexia 03/31/2018 Constitutional No night sweats 2017 Constitutional No chills 03/31/2018 Constitutional No diaphoresis 03/31/2018 Constitutional No fatigue 03/31/2018 Constitutional No fever 03/31/2018 Constitutional No insomnia 03/31/2018 Constitutional No malaise 03/31/2018 Constitutional No weight loss 03/31/2018 Constitutional No weight gain 03/31/2018 Musculoskeletal back pain 03/31/2018 Dermatologic No rash 03/31/2018 Dermatologic No sores 03/31/2018 Neurologic No alteration of consciousness 03/31/2018 Gastrointestinal No abdominal pain 2017 Gastrointestinal No constipation 2017 Gastrointestinal No diarrhea 03/31/2018 Genitourinary/Nephrology No dysuria 03/31 Cardiovascular No chest pain/pressure Respiratory No cough 03/31/2018 Ears/Nose/Throat/Neck No dizziness 2017 Constitutional No recent illness 2017 Dermatologic acrochordon (skin tags) 08/2018 Dermatologic sores 11/26/2017 Constitutional No recent illness 2016 Constitutional No chills 10/31/2017 Constitutional No diaphoresis 10/31/2017 Constitutional No fever 10/31/2017 Eyes No eye erythema 10/31/2017 Ears/Nose/Throat/Neck No nasal discharge 10/31/2017 Cardiovascular No chest pain/pressure Cardiovascular No dyspnea 10/31/2017 Respiratory No cough 10/31/2017 Respiratory No dyspnea 10/31/2017 Neurologic No alteration of consciousness 10/31/2017 Neurologic No mental status change 2016 Constitutional No recent illness 2016 Constitutional No chills 10/07/2017 Constitutional No fatigue 10/07/2017 Constitutional No fever 10/07/2017 Constitutional No insomnia 10/07/2017 Constitutional No malaise 10/07/2017 Eyes No blindness 10/07/2017 Eyes No vision change 10/07/2017 Ears/Nose/Throat/Neck No dental pain Ears/Nose/Throat/Neck No dizziness 2016 Ears/Nose/Throat/Neck No dysphagia 2016 Ears/Nose/Throat/Neck No headache 2016 Ears/Nose/Throat/Neck No hearing loss Ears/Nose/Throat/Neck No nasal allergies 10/07/2017 Ears/Nose/Throat/Neck No sore throat Ears/Nose/Throat/Neck No postnasal drip 10/07/2017 Ears/Nose/Throat/Neck No sinus congestion 10/07/2017 Cardiovascular No chest pain/pressure Cardiovascular No dyspnea 10/07/2017 Cardiovascular No edema 10/07/2017 Cardiovascular No exercise intolerance Cardiovascular No fatigue 10/07/2017 Cardiovascular hypertension 10/07/2017 Cardiovascular No near-syncope/dizziness 10/07/2017 Respiratory No chest tightness 2016 Respiratory No cough 10/07/2017 Respiratory No dyspnea 10/07/2017 Respiratory No pedal edema 10/07/2017 Gastrointestinal No abdominal pain 2016 Gastrointestinal No constipation 2016 Gastrointestinal No diarrhea 10/07/2017 Gastrointestinal No gastroesophageal reflux 10/07/2017 Gastrointestinal No nausea 10/07/2017 Gastrointestinal No vomiting 10/07/2017 Genitourinary/Nephrology No dysuria 10/07 Genitourinary/Nephrology No nocturia Genitourinary/Nephrology No urinary incontinence 10/07/2017 Musculoskeletal No stiffness 10/07/2017 Musculoskeletal No swelling 10/07/2017 Musculoskeletal No muscle weakness 2016 Musculoskeletal No myalgias 10/07/2017 Dermatologic No rash 10/07/2017 Dermatologic sores 10/07/2017 Neurologic No dizziness 10/07/2017 Neurologic No headache 10/07/2017 Neurologic No neck pain 10/07/2017 Neurologic No syncope 10/07/2017 Psychiatric No anxiety 10/07/2017 Psychiatric No depression 10/07/2017 Psychiatric disturbances of memory 2016 Constitutional No anorexia 09/22/2017 Constitutional No night sweats 2016 Constitutional chills 09/22/2017 Constitutional No diaphoresis 09/22/2017 Constitutional fatigue 09/22/2017 Constitutional fever 09/22/2017 Constitutional insomnia 09/22/2017 Constitutional malaise 09/22/2017 Constitutional No obesity 09/22/2017 Eyes No eye pain 09/22/2017 Eyes No vision change 09/22/2017 Ears/Nose/Throat/Neck nasal discharge 04/2017 Ears/Nose/Throat/Neck sore throat 2016 Cardiovascular chest pain/pressure 2016 Cardiovascular dyspnea 09/22/2017 Cardiovascular fatigue 09/22/2017 Respiratory chest congestion 09/22/2017 Respiratory chest tightness 09/22/2017 Respiratory cough 09/22/2017 Gastrointestinal No abdominal pain 2016 Gastrointestinal No nausea 09/22/2017 Gastrointestinal No vomiting 09/22/2017 Genitourinary/Nephrology No anuria/oliguria 09/22/2017 Genitourinary/Nephrology No dysuria 09/22 Genitourinary/Nephrology No nocturia 04/2017 Musculoskeletal stiffness 09/22/2017 Musculoskeletal swelling 09/22/2017 Musculoskeletal arthralgia(s) 09/22/2017 Dermatologic No rash 09/22/2017 Dermatologic No sores 09/22/2017 Psychiatric No anxiety 09/22/2017 Psychiatric No depression 09/22/2017 Constitutional recent illness 05/08/2017 Constitutional chills 05/08/2017 Constitutional No diaphoresis 05/08/2017 Constitutional fatigue 05/08/2017 Constitutional No fever 05/08/2017 Eyes No eye erythema 05/08/2017 Ears/Nose/Throat/Neck No nasal allergies 05/08/2017 Ears/Nose/Throat/Neck No nasal discharge 05/08/2017 Cardiovascular No chest pain/pressure Cardiovascular No dyspnea 05/08/2017 Respiratory No cough 05/08/2017 Respiratory No chest congestion 2016 Gastrointestinal abdominal pain 2016 Gastrointestinal No constipation 2016 Gastrointestinal No diarrhea 05/08/2017 Gastrointestinal No vomiting 05/08/2017 Gastrointestinal No nausea 05/08/2017 Dermatologic No rash 05/08/2017 Neurologic No alteration of consciousness 05/08/2017 Neurologic No mental status change 2016 Constitutional No recent illness 2016 Constitutional No chills 03/25/2017 Constitutional No fatigue 03/25/2017 Constitutional No fever 03/25/2017 Constitutional No insomnia 03/25/2017 Constitutional No malaise 03/25/2017 Eyes No blindness 03/25/2017 Eyes No vision change 03/25/2017 Ears/Nose/Throat/Neck No dental pain 07/2017 Ears/Nose/Throat/Neck No dizziness 2016 Ears/Nose/Throat/Neck No dysphagia 2016 Ears/Nose/Throat/Neck No headache 2016 Ears/Nose/Throat/Neck No hearing loss 07/2017 Ears/Nose/Throat/Neck No nasal allergies 03/25/2017 Ears/Nose/Throat/Neck No sore throat 07/2017 Ears/Nose/Throat/Neck No postnasal drip 03/25/2017 Ears/Nose/Throat/Neck No sinus congestion 03/25/2017 Cardiovascular No chest pain/pressure 07/2017 Cardiovascular No dyspnea 03/25/2017 Cardiovascular No edema 03/25/2017 Cardiovascular No exercise intolerance Cardiovascular No fatigue 03/25/2017 Cardiovascular No near-syncope/dizziness 03/25/2017 Respiratory No chest tightness 2016 Respiratory No cough 03/25/2017 Respiratory No dyspnea 03/25/2017 Respiratory No pedal edema 03/25/2017 Gastrointestinal No abdominal pain 2016 Gastrointestinal No constipation 2016 Gastrointestinal No diarrhea 03/25/2017 Gastrointestinal No gastroesophageal reflux 03/25/2017 Gastrointestinal No nausea 03/25/2017 Gastrointestinal No vomiting 03/25/2017 Genitourinary/Nephrology No dysuria 03/25 Genitourinary/Nephrology No nocturia 07/2017 Genitourinary/Nephrology No urinary incontinence 03/25/2017 Musculoskeletal No stiffness 03/25/2017 Musculoskeletal No swelling 03/25/2017 Musculoskeletal No muscle weakness 2016 Musculoskeletal No myalgias 03/25/2017 Dermatologic No rash 03/25/2017 Dermatologic sores 03/25/2017 Neurologic No dizziness 03/25/2017 Neurologic No headache 03/25/2017 Neurologic No neck pain 03/25/2017 Neurologic No syncope 03/25/2017 Psychiatric No anxiety 03/25/2017 Psychiatric No depression 03/25/2017 Cardiovascular hypertension 03/25/2017 Constitutional recent illness 01/21/2017 Constitutional No chills 01/21/2017 Constitutional No fatigue 01/21/2017 Constitutional No fever 01/21/2017 Constitutional No insomnia 01/21/2017 Constitutional No malaise 01/21/2017 Eyes No blindness 01/21/2017 Eyes No vision change 01/21/2017 Ears/Nose/Throat/Neck No dental pain 05/2017 Ears/Nose/Throat/Neck No dizziness 2016 Ears/Nose/Throat/Neck No dysphagia 2016 Ears/Nose/Throat/Neck No headache 2016 Ears/Nose/Throat/Neck No hearing loss 05/2017 Ears/Nose/Throat/Neck nasal allergies 05/2017 Ears/Nose/Throat/Neck No sore throat 05/2017 Ears/Nose/Throat/Neck No postnasal drip 01/21/2017 Ears/Nose/Throat/Neck No sinus congestion 01/21/2017 Cardiovascular No chest pain/pressure 05/2017 Cardiovascular No dyspnea 01/21/2017 Cardiovascular No edema 01/21/2017 Cardiovascular No exercise intolerance Cardiovascular No fatigue 01/21/2017 Cardiovascular No near-syncope/dizziness 01/21/2017 Respiratory No chest tightness 2016 Respiratory cough 01/21/2017 Respiratory No dyspnea 01/21/2017 Respiratory No pedal edema 01/21/2017 Gastrointestinal No abdominal pain 2016 Gastrointestinal No constipation 2016 Gastrointestinal No diarrhea 01/21/2017 Gastrointestinal No gastroesophageal reflux 01/21/2017 Gastrointestinal No nausea 01/21/2017 Gastrointestinal No vomiting 01/21/2017 Genitourinary/Nephrology No dysuria 01/21 Genitourinary/Nephrology No nocturia 05/2017 Genitourinary/Nephrology No urinary incontinence 01/21/2017 Musculoskeletal No stiffness 01/21/2017 Musculoskeletal No swelling 01/21/2017 Musculoskeletal No muscle weakness 2016 Musculoskeletal No myalgias 01/21/2017 Dermatologic No rash 01/21/2017 Neurologic No dizziness 01/21/2017 Neurologic No headache 01/21/2017 Neurologic No neck pain 01/21/2017 Neurologic No syncope 01/21/2017 Psychiatric No anxiety 01/21/2017 Psychiatric No depression 01/21/2017 Constitutional No anorexia 01/21/2017 Constitutional No night sweats 2016 Constitutional No diaphoresis 01/21/2017 Ears/Nose/Throat/Neck nasal discharge 05/2017 Constitutional recent illness 12/30/2016 Constitutional No chills 12/30/2016 Constitutional No diaphoresis 12/30/2016 Constitutional No fever 12/30/2016 Eyes No eye erythema 12/30/2016 Eyes No vision change 12/30/2016 Ears/Nose/Throat/Neck nasal allergies Ears/Nose/Throat/Neck nasal discharge Ears/Nose/Throat/Neck postnasal drip Ears/Nose/Throat/Neck sinus congestion Cardiovascular No chest pain/pressure Cardiovascular No dyspnea 12/30/2016 Respiratory cough 12/30/2016 Respiratory No dyspnea 12/30/2016 Gastrointestinal No abdominal pain 2016 Gastrointestinal No constipation 2016 Gastrointestinal No diarrhea 12/30/2016 Gastrointestinal No nausea 12/30/2016 Gastrointestinal No vomiting 12/30/2016 Dermatologic No rash 12/30/2016 Constitutional No malaise 12/30/2016 Respiratory No chest congestion 2016 Musculoskeletal No joint complaint 2016 Neurologic No alteration of consciousness 12/30/2016 Neurologic No mental status change 2016 Constitutional recent illness 12/26/2016 Constitutional No anorexia 12/26/2016 Constitutional No night sweats 2016 Constitutional chills 12/26/2016 Constitutional No diaphoresis 12/26/2016 Constitutional fatigue 12/26/2016 Constitutional fever 12/26/2016 Constitutional insomnia 12/26/2016 Constitutional malaise 12/26/2016 Constitutional No weight loss 12/26/2016 Constitutional No weight gain 12/26/2016 Constitutional No obesity 12/26/2016 Eyes No eye pain 12/26/2016 Eyes No vision change 12/26/2016 Ears/Nose/Throat/Neck No dizziness 2016 Ears/Nose/Throat/Neck No headache 2016 Cardiovascular chest pain/pressure 2016 Cardiovascular dyspnea 12/26/2016 Cardiovascular fatigue 12/26/2016 Respiratory cough 12/26/2016 Respiratory chest tightness 12/26/2016 Respiratory chest congestion 12/26/2016 Gastrointestinal No abdominal pain 2016 Gastrointestinal No nausea 12/26/2016 Gastrointestinal No vomiting 12/26/2016 Genitourinary/Nephrology No dysuria 12/26 Genitourinary/Nephrology No anuria/oliguria 12/26/2016 Genitourinary/Nephrology No nocturia 07/2017 Musculoskeletal stiffness 12/26/2016 Musculoskeletal swelling 12/26/2016 Musculoskeletal arthralgia(s) 12/26/2016 Dermatologic No rash 12/26/2016 Dermatologic No sores 12/26/2016 Neurologic headache 12/26/2016 Neurologic mental status change 2016 Psychiatric No anxiety 12/26/2016 Psychiatric No depression 12/26/2016 Endocrine No polyuria 12/26/2016 Endocrine No polydipsia 12/26/2016 Endocrine No weakness 12/26/2016 Hematologic/Lymphatic No abnormal ecchymoses 12/26/2016 Hematologic/Lymphatic No abnormal bleeding and bruising 12/26/2016 Ears/Nose/Throat/Neck nasal discharge 07/2017 Ears/Nose/Throat/Neck sore throat 2016 Constitutional recent illness 12/02/2016 Constitutional fatigue 12/02/2016 Constitutional No fever 12/02/2016 Cardiovascular No chest pain/pressure Cardiovascular No dyspnea 12/02/2016 Cardiovascular No edema 12/02/2016 Cardiovascular No exercise intolerance Cardiovascular No fatigue 12/02/2016 Cardiovascular No near-syncope/dizziness 12/02/2016 Respiratory cough 12/02/2016 Respiratory No dyspnea on exertion 2016 Psychiatric No anxiety 12/02/2016 Psychiatric No depression 12/02/2016 Dermatologic No rash 12/02/2016 Constitutional No recent illness 2016 Constitutional No chills 11/21/2016 Constitutional No fatigue 11/21/2016 Constitutional No fever 11/21/2016 Constitutional No insomnia 11/21/2016 Constitutional No malaise 11/21/2016 Eyes No blindness 11/21/2016 Eyes No vision change 11/21/2016 Ears/Nose/Throat/Neck No dental pain 03/2017 Ears/Nose/Throat/Neck No dizziness 2016 Ears/Nose/Throat/Neck No dysphagia 2016 Ears/Nose/Throat/Neck No headache 2016 Ears/Nose/Throat/Neck No hearing loss 03/2017 Ears/Nose/Throat/Neck No nasal allergies 11/21/2016 Ears/Nose/Throat/Neck No sore throat 03/2017 Ears/Nose/Throat/Neck No postnasal drip 11/21/2016 Ears/Nose/Throat/Neck No sinus congestion 11/21/2016 Cardiovascular No chest pain/pressure 03/2017 Cardiovascular No dyspnea 11/21/2016 Cardiovascular No edema 11/21/2016 Cardiovascular No exercise intolerance Cardiovascular No fatigue 11/21/2016 Cardiovascular No near-syncope/dizziness 11/21/2016 Respiratory No chest tightness 2016 Respiratory No cough 11/21/2016 Respiratory No dyspnea 11/21/2016 Respiratory No pedal edema 11/21/2016 Gastrointestinal No abdominal pain 2016 Gastrointestinal No constipation 2016 Gastrointestinal No diarrhea 11/21/2016 Gastrointestinal No gastroesophageal reflux 11/21/2016 Gastrointestinal No nausea 11/21/2016 Gastrointestinal No vomiting 11/21/2016 Genitourinary/Nephrology No dysuria 11/21 Genitourinary/Nephrology No nocturia 03/2017 Genitourinary/Nephrology No urinary incontinence 11/21/2016 Musculoskeletal No stiffness 11/21/2016 Musculoskeletal No swelling 11/21/2016 Musculoskeletal No muscle weakness 2016 Musculoskeletal No myalgias 11/21/2016 Dermatologic No rash 11/21/2016 Dermatologic sores 11/21/2016 Neurologic No dizziness 11/21/2016 Neurologic No headache 11/21/2016 Neurologic No neck pain 11/21/2016 Neurologic No syncope 11/21/2016 Psychiatric No anxiety 11/21/2016 Psychiatric No depression 11/21/2016 Constitutional No recent illness 2015 Constitutional No chills 10/25/2016 Constitutional No fever 10/25/2016 Eyes No eye erythema 10/25/2016 Eyes No vision change 10/25/2016 Ears/Nose/Throat/Neck No nasal allergies 10/25/2016 Ears/Nose/Throat/Neck No sore throat 07/2016 Ears/Nose/Throat/Neck No postnasal drip 10/25/2016 Ears/Nose/Throat/Neck No sinus congestion 10/25/2016 Cardiovascular No chest pain/pressure 07/2016 Cardiovascular No dyspnea 10/25/2016 Respiratory No cough 10/25/2016 Respiratory No dyspnea 10/25/2016 Gastrointestinal No constipation 2015 Gastrointestinal No diarrhea 10/25/2016 Gastrointestinal No gastroesophageal reflux 10/25/2016 Gastrointestinal No nausea 10/25/2016 Gastrointestinal No vomiting 10/25/2016 Dermatologic No rash 10/25/2016 Respiratory No chest congestion 2015 Gastrointestinal No abdominal pain 2015 Musculoskeletal No joint complaint 2015 Neurologic No alteration of consciousness 10/25/2016 Neurologic No mental status change 2015 Constitutional No recent illness 2015 Constitutional No chills 10/23/2016 Constitutional No fatigue 10/23/2016 Constitutional No fever 10/23/2016 Constitutional No insomnia 10/23/2016 Constitutional No malaise 10/23/2016 Eyes No blindness 10/23/2016 Eyes No vision change 10/23/2016 Ears/Nose/Throat/Neck No dental pain 05/2016 Ears/Nose/Throat/Neck No dizziness 2015 Ears/Nose/Throat/Neck No dysphagia 2015 Ears/Nose/Throat/Neck No headache 2015 Ears/Nose/Throat/Neck No hearing loss 05/2016 Ears/Nose/Throat/Neck No nasal allergies 10/23/2016 Ears/Nose/Throat/Neck No sore throat 05/2016 Ears/Nose/Throat/Neck No postnasal drip 10/23/2016 Ears/Nose/Throat/Neck No sinus congestion 10/23/2016 Cardiovascular No chest pain/pressure 05/2016 Cardiovascular No dyspnea 10/23/2016 Cardiovascular No edema 10/23/2016 Cardiovascular No exercise intolerance Cardiovascular No fatigue 10/23/2016 Cardiovascular No near-syncope/dizziness 10/23/2016 Respiratory No chest tightness 2015 Respiratory No cough 10/23/2016 Respiratory No dyspnea 10/23/2016 Respiratory No pedal edema 10/23/2016 Gastrointestinal No abdominal pain 2015 Gastrointestinal No constipation 2015 Gastrointestinal No diarrhea 10/23/2016 Gastrointestinal No gastroesophageal reflux 10/23/2016 Gastrointestinal No nausea 10/23/2016 Gastrointestinal No vomiting 10/23/2016 Genitourinary/Nephrology No dysuria 10/23 Genitourinary/Nephrology No nocturia 05/2016 Genitourinary/Nephrology No urinary incontinence 10/23/2016 Musculoskeletal No stiffness 10/23/2016 Musculoskeletal No swelling 10/23/2016 Musculoskeletal No muscle weakness 2015 Musculoskeletal No myalgias 10/23/2016 Dermatologic No rash 10/23/2016 Dermatologic sores 10/23/2016 Neurologic No dizziness 10/23/2016 Neurologic No headache 10/23/2016 Neurologic No neck pain 10/23/2016 Neurologic No syncope 10/23/2016 Psychiatric No anxiety 10/23/2016 Psychiatric No depression 10/23/2016 Constitutional No recent illness 2015 Constitutional No chills 07/29/2016 Constitutional No fever 07/29/2016 Eyes No eye erythema 07/29/2016 Eyes No vision change 07/29/2016 Ears/Nose/Throat/Neck nasal allergies 10/2016 Cardiovascular No chest pain/pressure 10/2016 Cardiovascular No dyspnea 07/29/2016 Respiratory cough 07/29/2016 Respiratory No dyspnea 07/29/2016 Gastrointestinal No abdominal pain 2015 Gastrointestinal No vomiting 07/29/2016 Dermatologic No rash 07/29/2016 Constitutional No diaphoresis 07/29/2016 Ears/Nose/Throat/Neck nasal discharge 10/2016 Respiratory No productive sputum 2015 Gastrointestinal No nausea 07/29/2016 Gastrointestinal No gastroesophageal reflux 07/29/2016 Gastrointestinal No diarrhea 07/29/2016 Gastrointestinal No constipation 2015 Musculoskeletal No joint complaint 2015 Neurologic No alteration of consciousness 07/29/2016 Neurologic No mental status change 2015 Constitutional No recent illness 2015 Constitutional No chills 06/24/2016 Constitutional No fatigue 06/24/2016 Constitutional No fever 06/24/2016 Constitutional No insomnia 06/24/2016 Constitutional No malaise 06/24/2016 Eyes No blindness 06/24/2016 Eyes No vision change 06/24/2016 Ears/Nose/Throat/Neck No dental pain 06/2016 Ears/Nose/Throat/Neck No dizziness 2015 Ears/Nose/Throat/Neck No dysphagia 2015 Ears/Nose/Throat/Neck No headache 2015 Ears/Nose/Throat/Neck No hearing loss 06/2016 Ears/Nose/Throat/Neck No nasal allergies 06/24/2016 Ears/Nose/Throat/Neck No sore throat 06/2016 Ears/Nose/Throat/Neck No postnasal drip 06/24/2016 Ears/Nose/Throat/Neck No sinus congestion 06/24/2016 Cardiovascular No chest pain/pressure 06/2016 Cardiovascular No dyspnea 06/24/2016 Cardiovascular No edema 06/24/2016 Cardiovascular No exercise intolerance Cardiovascular No fatigue 06/24/2016 Cardiovascular No near-syncope/dizziness 06/24/2016 Respiratory No chest tightness 2015 Respiratory No cough 06/24/2016 Respiratory No dyspnea 06/24/2016 Respiratory No pedal edema 06/24/2016 Gastrointestinal No abdominal pain 2015 Gastrointestinal No constipation 2015 Gastrointestinal No diarrhea 06/24/2016 Gastrointestinal No gastroesophageal reflux 06/24/2016 Gastrointestinal No nausea 06/24/2016 Gastrointestinal No vomiting 06/24/2016 Genitourinary/Nephrology No dysuria 06/24 Genitourinary/Nephrology No nocturia 06/2016 Genitourinary/Nephrology No urinary incontinence 06/24/2016 Musculoskeletal No stiffness 06/24/2016 Musculoskeletal No swelling 06/24/2016 Musculoskeletal No muscle weakness 2015 Musculoskeletal No myalgias 06/24/2016 Dermatologic No rash 06/24/2016 Dermatologic sores 06/24/2016 Neurologic No dizziness 06/24/2016 Neurologic No headache 06/24/2016 Neurologic No neck pain 06/24/2016 Neurologic No syncope 06/24/2016 Psychiatric No anxiety 06/24/2016 Psychiatric No depression 06/24/2016 Constitutional No recent illness 2015 Constitutional No chills 02/21/2016 Constitutional No fatigue 02/21/2016 Constitutional No fever 02/21/2016 Constitutional No insomnia 02/21/2016 Constitutional No malaise 02/21/2016 Eyes No blindness 02/21/2016 Eyes No vision change 02/21/2016 Ears/Nose/Throat/Neck No dental pain 04/2016 Ears/Nose/Throat/Neck No dizziness 2015 Ears/Nose/Throat/Neck No dysphagia 2015 Ears/Nose/Throat/Neck No headache 2015 Ears/Nose/Throat/Neck No hearing loss 04/2016 Ears/Nose/Throat/Neck No nasal allergies 02/21/2016 Ears/Nose/Throat/Neck No sore throat 04/2016 Ears/Nose/Throat/Neck No postnasal drip 02/21/2016 Ears/Nose/Throat/Neck No sinus congestion 02/21/2016 Cardiovascular No chest pain/pressure 04/2016 Cardiovascular No dyspnea 02/21/2016 Cardiovascular No edema 02/21/2016 Cardiovascular No exercise intolerance Cardiovascular No fatigue 02/21/2016 Cardiovascular No near-syncope/dizziness 02/21/2016 Respiratory No chest tightness 2015 Respiratory No cough 02/21/2016 Respiratory No dyspnea 02/21/2016 Respiratory No pedal edema 02/21/2016 Gastrointestinal No abdominal pain 2015 Gastrointestinal No constipation 2015 Gastrointestinal No diarrhea 02/21/2016 Gastrointestinal No gastroesophageal reflux 02/21/2016 Gastrointestinal No nausea 02/21/2016 Gastrointestinal No vomiting 02/21/2016 Genitourinary/Nephrology No dysuria 02/20 Genitourinary/Nephrology No nocturia 04/2016 Genitourinary/Nephrology No urinary incontinence 02/21/2016 Musculoskeletal No stiffness 02/21/2016 Musculoskeletal No swelling 02/21/2016 Musculoskeletal No muscle weakness 2015 Musculoskeletal No myalgias 02/21/2016 Dermatologic No rash 02/21/2016 Dermatologic sores 02/21/2016 Neurologic No dizziness 02/21/2016 Neurologic No headache 02/21/2016 Neurologic No neck pain 02/21/2016 Neurologic No syncope 02/21/2016 Psychiatric No anxiety 02/21/2016 Psychiatric No depression 02/21/2016 Constitutional No recent illness 2014 Constitutional No chills 10/18/2015 Constitutional No fatigue 10/18/2015 Constitutional No fever 10/18/2015 Constitutional No insomnia 10/18/2015 Constitutional No malaise 10/18/2015 Eyes No blindness 10/18/2015 Eyes No vision change 10/18/2015 Ears/Nose/Throat/Neck No dental pain 12/2014 Ears/Nose/Throat/Neck No dizziness 2014 Ears/Nose/Throat/Neck No dysphagia 2014 Ears/Nose/Throat/Neck No headache 2014 Ears/Nose/Throat/Neck No hearing loss 12/2014 Ears/Nose/Throat/Neck No nasal allergies 10/18/2015 Ears/Nose/Throat/Neck No sore throat 12/2014 Ears/Nose/Throat/Neck No postnasal drip 10/18/2015 Ears/Nose/Throat/Neck No sinus congestion 10/18/2015 Cardiovascular No chest pain/pressure 12/2014 Cardiovascular No dyspnea 10/18/2015 Cardiovascular No edema 10/18/2015 Cardiovascular No exercise intolerance Cardiovascular No fatigue 10/18/2015 Cardiovascular No near-syncope/dizziness 10/18/2015 Respiratory No chest tightness 2014 Respiratory No cough 10/18/2015 Respiratory No dyspnea 10/18/2015 Respiratory No pedal edema 10/18/2015 Gastrointestinal No abdominal pain 2014 Gastrointestinal No constipation 2014 Gastrointestinal No diarrhea 10/18/2015 Gastrointestinal No gastroesophageal reflux 10/18/2015 Gastrointestinal No nausea 10/18/2015 Gastrointestinal No vomiting 10/18/2015 Genitourinary/Nephrology No dysuria 10/18 Genitourinary/Nephrology No nocturia 12/2014 Genitourinary/Nephrology No urinary incontinence 10/18/2015 Musculoskeletal No stiffness 10/18/2015 Musculoskeletal No swelling 10/18/2015 Musculoskeletal No muscle weakness 2014 Musculoskeletal No myalgias 10/18/2015 Dermatologic No rash 10/18/2015 Dermatologic sores 10/18/2015 Neurologic No dizziness 10/18/2015 Neurologic No headache 10/18/2015 Neurologic No neck pain 10/18/2015 Neurologic No syncope 10/18/2015 Psychiatric No anxiety 10/18/2015 Psychiatric No depression 10/18/2015 Constitutional No fever 05/02/2015 Constitutional night sweats 05/02/2015 Cardiovascular No chest pain/pressure Cardiovascular No dyspnea 05/02/2015 Respiratory No cough 05/02/2015 Respiratory No chest tightness 2014 Respiratory No cigarette smoking 2014 Gastrointestinal abdominal pain 2014 Gastrointestinal No constipation 2014 Gastrointestinal diarrhea 05/02/2015 Gastrointestinal No nausea 05/02/2015 Gastrointestinal No vomiting 05/02/2015 Genitourinary/Nephrology No dysuria 05/02 Genitourinary/Nephrology No hematuria Genitourinary/Nephrology No urinary incontinence 05/02/2015 Dermatologic No sores 05/02/2015 Dermatologic No rash 05/02/2015 Physical Exam Exam Name System Name Item Name Status Result Effective Dates Notes Full Exam - General 1994 Constitutional general appearance Overall: well developed 04/03/2018 None Full Exam - General 1994 Constitutional general appearance Overall: in no acute distress 04/03/2018 None Full Exam - General 1994 Constitutional general appearance Overall: well nourished 04/03/2018 None Full Exam - General 1994 Eyes conjunctiva /eyelids Overall: conjunctiva clear 04/03/2018 None Full Exam - General 1994 Eyes conjunctiva /eyelids Overall: eyelids normal 04/03/2018 None Full Exam - General 1994 Ears/Nose/Throat lips/teeth/gingiva Overall: benign lips 04/03/2018 None Full Exam - General 1994 Respiratory respiratory effort/rhythm Overall: no retractions 04/03/2018 None Full Exam - General 1994 Respiratory respiratory effort/rhythm Overall: normal rate 04/03/2018 None Full Exam - General 1994 Musculoskeletal head and neck Overall: head atraumatic 04/03/2018 None Full Exam - General 1994 Neurologic cranial nerves Overall: crainial nerves 2 - 12 grossly intact 04/03/2018 None Full Exam - General 1994 Psychiatric orientation/consciousness Overall: oriented to person, place and time 04/03/2018 None Full Exam - General 1994 Psychiatric mood and affect Overall: normal mood and affect 04/03/2018 None Full Exam - General 1994 Psychiatric appearance Overall: well-groomed, good eye contact 04/03/2018 None Full Exam - General 1994 Abdomen abdominal exam Contour: rounded 04/03/2018 None Full Exam - General 1994 Abdomen abdominal exam Overall: normal bowel sounds 04/03/2018 None Full Exam - General 1994 Constitutional general appearance Development: well developed 03/31/2018 None Full Exam - General 1994 Constitutional general appearance Development: appears stated age 0503/31/2018 None Full Exam - General 1994 Constitutional general appearance Hygiene/Attention to Grooming: good hygiene 03/31/2018 None Full Exam - General 1994 Eyes conjunctiva /eyelids Overall: conjunctiva clear 03/31/2018 None Full Exam - General 1994 Eyes conjunctiva /eyelids Overall: cornea clear 03/31/2018 None Full Exam - General 1994 Eyes conjunctiva /eyelids Overall: eyelids normal 03/31/2018 None Full Exam - General 1994 Eyes pupils and irises Overall: pupils equal, round, reactive to light and accomodation 03/31/2018 None Full Exam - General 1994 Ears/Nose/Throat otoscopic exam Overall: external auditory canals clear 03/31/2018 None Full Exam - General 1994 Ears/Nose/Throat otoscopic exam Overall: tympanic membranes clear 03/31/2018 None Full Exam - General 1994 Ears/Nose/Throat lips/teeth/gingiva Overall: benign lips 03/31/2018 None Full Exam - General 1994 Ears/Nose/Throat lips/teeth/gingiva Overall: normal dentition 03/31/2018 None Full Exam - General 1994 Ears/Nose/Throat oral cavity/pharynx/larynx Overall: oral mucosa clear 03/31/2018 None Full Exam - General 1994 Ears/Nose/Throat oral cavity/pharynx/larynx Overall: oropharyngeal mucosa clear 03/31/2018 None Full Exam - General 1994 Ears/Nose/Throat oral cavity/pharynx/larynx Overall: hypopharynx benign 03/31/2018 None Full Exam - General 1994 Ears/Nose/Throat oral cavity/pharynx/larynx Overall: no masses 03/31/2018 None Full Exam - General 1994 Respiratory auscultation Overall: breath sounds clear bilaterally 03/31/2018 None Full Exam - General 1994 Respiratory respiratory effort/rhythm Overall: no retractions 03/31/2018 None Full Exam - General 1994 Respiratory respiratory effort/rhythm Overall: normal rate 03/31/2018 None Full Exam - General 1994 Cardiovascular extremities Overall: no clubbing 03/31/2018 None Full Exam - General 1994 Cardiovascular auscultation of heart Overall: regular rate 03/31/2018 None Full Exam - General 1994 Cardiovascular auscultation of heart Overall: normal heart sounds 03/31/2018 None Full Exam - General 1994 Abdomen abdominal exam Overall: no tenderness 03/31/2018 None Full Exam - General 1994 Abdomen abdominal exam Overall: normal bowel sounds 03/31/2018 None Full Exam - General 1994 Lymphatic neck nodes Overall: anterior cervical chain benign 03/31/2018 None Full Exam - General 1994 Lymphatic neck nodes Overall: posterior cervical chain benign 03/31/2018 None Full Exam - General 1994 Musculoskeletal spine, ribs and pelvis Overall: sacroiliac joint benign 03/31/2018 None Full Exam - General 1994 Musculoskeletal spine, ribs and pelvis Overall: good posture 03/31/2018 None Full Exam - General 1994 Musculoskeletal head and neck Overall: head atraumatic 03/31/2018 None Full Exam - General 1994 Musculoskeletal head and neck Overall: cervical spine benign 03/31/2018 None Full Exam - General 1994 Neurologic mental status Overall: alert 03/31/2018 None Full Exam - General 1994 Neurologic mental status Overall: oriented 03/31/2018 None Full Exam - General 1994 Neurologic cranial nerves Overall: crainial nerves 2 - 12 grossly intact 03/31/2018 None Full Exam - General 1994 Psychiatric orientation/consciousness Overall: oriented to person, place and time 03/31/2018 None Full Exam - General 1994 Psychiatric mood and affect Overall: normal mood and affect 03/31/2018 None Full Exam - General 1994 Musculoskeletal spine, ribs and pelvis Overall: spine benign 03/31/2018 tender left lumbar muscles Full Exam - General 1994 Constitutional general appearance Development: well developed 11/26/2017 None Full Exam - General 1994 Constitutional general appearance Development: appears stated age 0111/26/2017 None Full Exam - General 1994 Psychiatric orientation/consciousness Overall: oriented to person, place and time 11/26/2017 None Full Exam - General 1994 Integument inspection of skin Location: left arm 11/26/2017 actinic keratosis on dorsum of arm on left x 2 - treated with cryotherapy, skin tags x 5 on left removed with sharp excision Full Exam - General 1994 Integument inspection of skin Location: right arm 11/26/2017 actinic keratosis on dorsum of arm on right x 1 - treated with cryotherapy, skin tags x 5 on right axilla removed with sharp excision Full Exam - General 1994 Integument inspection of skin Location: neck 11/26/2017 actinic keratosis - on neck x 1 - treated with cryotherapy Full Exam - General 1994 Constitutional general appearance Overall: well developed 10/31/2017 None Full Exam - General 1994 Constitutional general appearance Overall: in no acute distress 10/31/2017 None Full Exam - General 1994 Constitutional general appearance Overall: well nourished 10/31/2017 None Full Exam - General 1994 Eyes conjunctiva /eyelids Overall: conjunctiva clear 10/31/2017 None Full Exam - General 1994 Eyes conjunctiva /eyelids Overall: eyelids normal 10/31/2017 None Full Exam - General 1994 Ears/Nose/Throat lips/teeth/gingiva Overall: benign lips 10/31/2017 None Full Exam - General 1994 Respiratory respiratory effort/rhythm Overall: no retractions 10/31/2017 None Full Exam - General 1994 Respiratory respiratory effort/rhythm Overall: normal rate 10/31/2017 None Full Exam - General 1994 Musculoskeletal head and neck Overall: head atraumatic 10/31/2017 None Full Exam - General 1994 Neurologic cranial nerves Overall: crainial nerves 2 - 12 grossly intact 10/31/2017 None Full Exam - General 1994 Psychiatric orientation/consciousness Overall: oriented to person, place and time 10/31/2017 None Full Exam - General 1994 Psychiatric mood and affect Overall: normal mood and affect 10/31/2017 None Full Exam - General 1994 Psychiatric appearance Overall: well-groomed, good eye contact 10/31/2017 None Full Exam - General 1994 Constitutional general appearance Development: well developed 10/07/2017 None Full Exam - General 1994 Constitutional general appearance Development: appears stated age 1110/07/2017 None Full Exam - General 1994 Constitutional general appearance Hygiene/Attention to Grooming: good hygiene 10/07/2017 None Full Exam - General 1994 Eyes conjunctiva /eyelids Overall: conjunctiva clear 10/07/2017 None Full Exam - General 1994 Eyes conjunctiva /eyelids Overall: cornea clear 10/07/2017 None Full Exam - General 1994 Eyes conjunctiva /eyelids Overall: eyelids normal 10/07/2017 None Full Exam - General 1994 Eyes pupils and irises Overall: pupils equal, round, reactive to light and accomodation 10/07/2017 None Full Exam - General 1994 Ears/Nose/Throat otoscopic exam Overall: external auditory canals clear 10/07/2017 None Full Exam - General 1994 Ears/Nose/Throat otoscopic exam Overall: tympanic membranes clear 10/07/2017 None Full Exam - General 1994 Ears/Nose/Throat lips/teeth/gingiva Overall: benign lips 10/07/2017 None Full Exam - General 1994 Ears/Nose/Throat lips/teeth/gingiva Overall: normal dentition 10/07/2017 None Full Exam - General 1994 Ears/Nose/Throat oral cavity/pharynx/larynx Overall: oral mucosa clear 10/07/2017 None Full Exam - General 1994 Ears/Nose/Throat oral cavity/pharynx/larynx Overall: oropharyngeal mucosa clear 10/07/2017 None Full Exam - General 1994 Ears/Nose/Throat oral cavity/pharynx/larynx Overall: hypopharynx benign 10/07/2017 None Full Exam - General 1994 Ears/Nose/Throat oral cavity/pharynx/larynx Overall: no masses 10/07/2017 None Full Exam - General 1994 Respiratory auscultation Overall: breath sounds clear bilaterally 10/07/2017 None Full Exam - General 1994 Respiratory respiratory effort/rhythm Overall: no retractions 10/07/2017 None Full Exam - General 1994 Respiratory respiratory effort/rhythm Overall: normal rate 10/07/2017 None Full Exam - General 1994 Cardiovascular extremities Overall: no clubbing 10/07/2017 None Full Exam - General 1994 Cardiovascular auscultation of heart Overall: regular rate 10/07/2017 None Full Exam - General 1994 Cardiovascular auscultation of heart Overall: normal heart sounds 10/07/2017 None Full Exam - General 1994 Abdomen abdominal exam Overall: no tenderness 10/07/2017 None Full Exam - General 1994 Abdomen abdominal exam Overall: normal bowel sounds 10/07/2017 None Full Exam - General 1994 Lymphatic neck nodes Overall: anterior cervical chain benign 10/07/2017 None Full Exam - General 1994 Lymphatic neck nodes Overall: posterior cervical chain benign 10/07/2017 None Full Exam - General 1994 Musculoskeletal spine, ribs and pelvis Overall: spine benign 10/07/2017 None Full Exam - General 1994 Musculoskeletal spine, ribs and pelvis Overall: sacroiliac joint benign 10/07/2017 None Full Exam - General 1994 Musculoskeletal spine, ribs and pelvis Overall: good posture 10/07/2017 None Full Exam - General 1994 Musculoskeletal head and neck Overall: head atraumatic 10/07/2017 None Full Exam - General 1994 Musculoskeletal head and neck Overall: cervical spine benign 10/07/2017 None Full Exam - General 1994 Integument inspection of skin Pigmentation: erythematous 10/07/2017 on right knee slightly indurated region of tissue Full Exam - General 1994 Neurologic cranial nerves Overall: crainial nerves 2 - 12 grossly intact 10/07/2017 None Full Exam - General 1994 Psychiatric orientation/consciousness Overall: oriented to person, place and time 10/07/2017 None Full Exam - General 1994 Psychiatric mood and affect Overall: normal mood and affect 10/07/2017 None Full Exam - General 1994 Neurologic mental status Overall: alert 10/07/2017 - [id number] Full Exam - General 1994 Neurologic mental status Overall: oriented 10/07/2017 None Full Exam - Pulmonary Constitutional general appearance Overall: well nourished 09/22/2017 None Full Exam - Pulmonary Constitutional general appearance Overall: well developed 09/22/2017 None Full Exam - Pulmonary Constitutional general appearance Overall: in no acute distress 09/22/2017 None Full Exam - Pulmonary Eyes conjunctiva/ eyelids Overall: conjunctiva clear 09/22/2017 None Full Exam - Pulmonary Eyes conjunctiva/ eyelids Overall: cornea clear 09/22/2017 None Full Exam - Pulmonary Eyes conjunctiva/ eyelids Overall: eyelids normal 09/22/2017 None Full Exam - Pulmonary Eyes pupils and irises Overall: pupils equal, round, reactive to light and accomodation 09/22/2017 None Full Exam - Pulmonary Ears/Nose/Throat teeth/gingiva Overall: normal dentition 09/22/2017 None Full Exam - Pulmonary Ears/Nose/Throat teeth/gingiva Overall: no masses 09/22/2017 None Full Exam - Pulmonary Ears/Nose/Throat oropharynx Posterior Pharynx: clear post nasal drainage 09/22/2017 None Full Exam - Pulmonary Respiratory auscultation Left lower lung field: crackles 09/22/2017 None Full Exam - Pulmonary Respiratory respiratory effort/rhythm Overall: no retractions 09/22/2017 None Full Exam - Pulmonary Respiratory respiratory effort/rhythm Overall: normal rate 09/22/2017 None Full Exam - Pulmonary Cardiovascular auscultation of heart Overall: regular rate 09/22/2017 None Full Exam - Pulmonary Cardiovascular auscultation of heart Overall: normal heart sounds 09/22/2017 None Full Exam - Pulmonary Cardiovascular auscultation of heart Overall: no murmurs 09/22/2017 None Full Exam - Pulmonary Abdomen abdominal exam Overall: no tenderness 09/22/2017 None Full Exam - Pulmonary Abdomen abdominal exam Overall: normal bowel sounds 09/22/2017 None Full Exam - Pulmonary Musculoskeletal muscle strength and tone Overall: normal strength 09/22/2017 None Full Exam - Pulmonary Musculoskeletal muscle strength and tone Overall: normal tone 09/22/2017 None Full Exam - Pulmonary Musculoskeletal gait and station Overall: normal gait 09/22/2017 None Full Exam - Pulmonary Musculoskeletal gait and station Overall: normal station 09/22/2017 None Full Exam - Pulmonary Neurologic mental status Overall: alert 09/22/2017 None Full Exam - Pulmonary Neurologic mental status Overall: oriented 09/22/2017 None Full Exam - Pulmonary Neurologic gait Overall: no ataxia, no unsteadiness 09/22/2017 None Full Exam - Pulmonary Neurologic speech Overall: normal quality, no aphasia 09/22/2017 None Full Exam - Pulmonary Psychiatric orientation/consciousness Overall: oriented to person, place and time 09/22/2017 None Full Exam - Pulmonary Psychiatric mood and affect Overall: normal mood and affect 09/22/2017 None Full Exam - General 1994 Constitutional general appearance Overall: well developed 05/08/2017 None Full Exam - General 1994 Constitutional general appearance Overall: in no acute distress 05/08/2017 None Full Exam - General 1994 Constitutional general appearance Overall: well nourished 05/08/2017 None Full Exam - General 1994 Eyes conjunctiva /eyelids Overall: conjunctiva clear 05/08/2017 None Full Exam - General 1994 Eyes conjunctiva /eyelids Overall: eyelids normal 05/08/2017 None Full Exam - General 1994 Ears/Nose/Throat lips/teeth/gingiva Overall: benign lips 05/08/2017 None Full Exam - General 1994 Ears/Nose/Throat oral cavity/pharynx/larynx Overall: oral mucosa clear 05/08/2017 None Full Exam - General 1994 Ears/Nose/Throat oral cavity/pharynx/larynx Overall: oropharyngeal mucosa clear 05/08/2017 None Full Exam - General 1994 Respiratory auscultation Overall: breath sounds clear bilaterally 05/08/2017 None Full Exam - General 1994 Respiratory respiratory effort/rhythm Overall: no retractions 05/08/2017 None Full Exam - General 1994 Respiratory respiratory effort/rhythm Overall: normal rate 05/08/2017 None Full Exam - General 1994 Cardiovascular auscultation of heart Overall: regular rate 05/08/2017 None Full Exam - General 1994 Cardiovascular auscultation of heart Overall: normal heart sounds 05/08/2017 None Full Exam - General 1994 Abdomen abdominal exam Overall: normal bowel sounds 05/08/2017 None Full Exam - General 1994 Abdomen abdominal exam Lower quadrant: tender to palpation 05/08/2017 None Full Exam - General 1994 Abdomen abdominal exam Lower quadrant: dull pain 05/08/2017 None Full Exam - General 1994 Abdomen abdominal exam Lower quadrant: voluntary guarding 05/08/2017 None Full Exam - General 1994 Abdomen abdominal exam Lower quadrant: no rebound tenderness 05/08/2017 None Full Exam - General 1994 Abdomen abdominal exam Lower quadrant: soft 05/08/2017 None Full Exam - General 1994 Abdomen abdominal exam Lower quadrant: sharp pain 05/08/2017 None Full Exam - General 1994 Abdomen abdominal exam Upper quadrant: non-tender to palpation 05/08/2017 None Full Exam - General 1994 Abdomen abdominal exam Upper quadrant: no guarding 05/08/2017 None Full Exam - General 1994 Abdomen abdominal exam Upper quadrant: no rebound tenderness 05/08/2017 None Full Exam - General 1994 Abdomen abdominal exam Upper quadrant: soft 05/08/2017 None Full Exam - General 1994 Musculoskeletal head and neck Overall: head atraumatic 05/08/2017 None Full Exam - General 1994 Musculoskeletal gait and station Overall: normal gait 05/08/2017 None Full Exam - General 1994 Musculoskeletal gait and station Overall: normal station 05/08/2017 None Full Exam - General 1994 Neurologic cranial nerves Overall: crainial nerves 2 - 12 grossly intact 05/08/2017 None Full Exam - General 1994 Psychiatric orientation/consciousness Overall: oriented to person, place and time 05/08/2017 None Full Exam - General 1994 Psychiatric mood and affect Overall: normal mood and affect 05/08/2017 None Full Exam - General 1994 Psychiatric appearance Overall: well-groomed, good eye contact 05/08/2017 None Full Exam - General 1994 Constitutional general appearance Development: well developed 03/25/2017 None Full Exam - General 1994 Constitutional general appearance Development: appears stated age 0503/25/2017 None Full Exam - General 1994 Constitutional general appearance Hygiene/Attention to Grooming: good hygiene 03/25/2017 None Full Exam - General 1994 Eyes conjunctiva /eyelids Overall: conjunctiva clear 03/25/2017 None Full Exam - General 1994 Eyes conjunctiva /eyelids Overall: cornea clear 03/25/2017 None Full Exam - General 1994 Eyes conjunctiva /eyelids Overall: eyelids normal 03/25/2017 None Full Exam - General 1994 Eyes pupils and irises Overall: pupils equal, round, reactive to light and accomodation 03/25/2017 None Full Exam - General 1994 Ears/Nose/Throat otoscopic exam Overall: external auditory canals clear 03/25/2017 None Full Exam - General 1994 Ears/Nose/Throat otoscopic exam Overall: tympanic membranes clear 03/25/2017 None Full Exam - General 1994 Ears/Nose/Throat lips/teeth/gingiva Overall: benign lips 03/25/2017 None Full Exam - General 1994 Ears/Nose/Throat lips/teeth/gingiva Overall: normal dentition 03/25/2017 None Full Exam - General 1994 Ears/Nose/Throat oral cavity/pharynx/larynx Overall: oral mucosa clear 03/25/2017 None Full Exam - General 1994 Ears/Nose/Throat oral cavity/pharynx/larynx Overall: oropharyngeal mucosa clear 03/25/2017 None Full Exam - General 1994 Ears/Nose/Throat oral cavity/pharynx/larynx Overall: hypopharynx benign 03/25/2017 None Full Exam - General 1994 Ears/Nose/Throat oral cavity/pharynx/larynx Overall: no masses 03/25/2017 None Full Exam - General 1994 Respiratory auscultation Overall: breath sounds clear bilaterally 03/25/2017 None Full Exam - General 1994 Respiratory respiratory effort/rhythm Overall: no retractions 03/25/2017 None Full Exam - General 1994 Respiratory respiratory effort/rhythm Overall: normal rate 03/25/2017 None Full Exam - General 1994 Cardiovascular extremities Overall: no clubbing 03/25/2017 None Full Exam - General 1994 Cardiovascular auscultation of heart Overall: regular rate 03/25/2017 None Full Exam - General 1994 Cardiovascular auscultation of heart Overall: normal heart sounds 03/25/2017 None Full Exam - General 1994 Abdomen abdominal exam Overall: no tenderness 03/25/2017 None Full Exam - General 1994 Abdomen abdominal exam Overall: normal bowel sounds 03/25/2017 None Full Exam - General 1994 Lymphatic neck nodes Overall: anterior cervical chain benign 03/25/2017 None Full Exam - General 1994 Lymphatic neck nodes Overall: posterior cervical chain benign 03/25/2017 None Full Exam - General 1994 Musculoskeletal spine, ribs and pelvis Overall: spine benign 03/25/2017 None Full Exam - General 1994 Musculoskeletal spine, ribs and pelvis Overall: sacroiliac joint benign 03/25/2017 None Full Exam - General 1994 Musculoskeletal spine, ribs and pelvis Overall: good posture 03/25/2017 None Full Exam - General 1994 Musculoskeletal head and neck Overall: head atraumatic 03/25/2017 None Full Exam - General 1994 Musculoskeletal head and neck Overall: cervical spine benign 03/25/2017 None Full Exam - General 1994 Integument inspection of skin Pigmentation: erythematous 03/25/2017 on right knee slightly indurated region of tissue Full Exam - General 1994 Neurologic deep tendon reflexes Overall: deep tendon reflexes intact 03/25/2017 None Full Exam - General 1994 Neurologic cranial nerves Overall: crainial nerves 2 - 12 grossly intact 03/25/2017 None Full Exam - General 1994 Psychiatric orientation/consciousness Overall: oriented to person, place and time 03/25/2017 None Full Exam - General 1994 Psychiatric mood and affect Overall: normal mood and affect 03/25/2017 None Full Exam - ENT Constitutional general appearance Overall: well nourished 01/21/2017 None Full Exam - ENT Constitutional general appearance Overall: in no acute distress 01/21/2017 None Full Exam - ENT Constitutional general appearance Overall: well developed 01/21/2017 None Full Exam - ENT Neurologic orientation Overall: oriented to person, place and time 01/21/2017 None Full Exam - ENT Integument inspection of skin Overall: no rash, lesions 01/21/2017 None Full Exam - ENT Lymphatic palpation of lymph nodes Overall: posterior cervical chain benign 01/21/2017 None Full Exam - ENT Lymphatic palpation of lymph nodes Overall: anterior cervical chain benign 01/21/2017 None Full Exam - ENT Abdomen abdominal exam Overall: normal bowel sounds 01/21/2017 None Full Exam - ENT Abdomen abdominal exam Overall: no tenderness 01/21/2017 None Full Exam - ENT Cardiovascular auscultation of heart Overall: regular rate 01/21/2017 None Full Exam - ENT Cardiovascular auscultation of heart Overall: normal heart sounds 01/21/2017 None Full Exam - ENT Respiratory inspection Overall: normal rate 05/2017 None Full Exam - ENT Respiratory inspection Overall: no retractions 01/21/2017 None Full Exam - ENT Respiratory auscultation Overall: breath sounds clear bilaterally 01/21/2017 None Full Exam - ENT Face and Head palpation Overall: no sinus tenderness 01/21/2017 None Full Exam - ENT Ears/Nose/Throat otoscopic exam Overall: external auditory canals normal 01/21/2017 None Full Exam - ENT Ears/Nose/Throat otoscopic exam Overall: tympanic membranes normal 01/21/2017 None Full Exam - ENT Ears/Nose/Throat oropharynx Overall: oral mucosa clear 01/21/2017 None Full Exam - ENT Constitutional general appearance Overall: well nourished 12/30/2016 None Full Exam - ENT Constitutional general appearance Overall: well developed 12/30/2016 None Full Exam - ENT Constitutional general appearance Overall: in no acute distress 12/30/2016 None Full Exam - ENT Ears/Nose/Throat otoscopic exam Overall: external auditory canals normal 12/30/2016 None Full Exam - ENT Ears/Nose/Throat otoscopic exam Overall: tympanic membranes normal 12/30/2016 None Full Exam - ENT Ears/Nose/Throat oropharynx Overall: oral mucosa clear 12/30/2016 None Full Exam - ENT Respiratory inspection Overall: no retractions 12/30/2016 None Full Exam - ENT Respiratory inspection Overall: normal rate None Full Exam - ENT Respiratory auscultation Overall: breath sounds clear bilaterally 12/30/2016 None Full Exam - ENT Cardiovascular auscultation of heart Overall: regular rate 12/30/2016 None Full Exam - ENT Cardiovascular auscultation of heart Overall: normal heart sounds 12/30/2016 None Full Exam - ENT Lymphatic palpation of lymph nodes Overall: anterior cervical chain benign 12/30/2016 None Full Exam - ENT Lymphatic palpation of lymph nodes Overall: posterior cervical chain benign 12/30/2016 None Full Exam - ENT Integument inspection of skin Overall: no rash, lesions 12/30/2016 None Full Exam - ENT Neurologic orientation Overall: oriented to person, place and time 12/30/2016 None Full Exam - ENT Ears/Nose/Throat oropharynx Posterior Pharynx: clear post nasal drainage 12/30/2016 None Full Exam - ENT Ears/Nose/Throat lips/ teeth/gingiva Overall: benign lips 12/30/2016 None Full Exam - ENT Neurologic cranial nerves /coordination Overall: cranial nerves 2- 12 grossly intact 12/30/2016 None Full Exam - Pulmonary Constitutional general appearance Overall: well nourished 12/26/2016 None Full Exam - Pulmonary Constitutional general appearance Overall: well developed 12/26/2016 None Full Exam - Pulmonary Constitutional general appearance Overall: in no acute distress 12/26/2016 None Full Exam - Pulmonary Eyes conjunctiva/ eyelids Overall: conjunctiva clear 12/26/2016 None Full Exam - Pulmonary Eyes conjunctiva/ eyelids Overall: cornea clear 12/26/2016 None Full Exam - Pulmonary Eyes conjunctiva/ eyelids Overall: eyelids normal 12/26/2016 None Full Exam - Pulmonary Eyes pupils and irises Overall: pupils equal, round, reactive to light and accomodation 12/26/2016 None Full Exam - Pulmonary Ears/Nose/Throat teeth/gingiva Overall: normal dentition 12/26/2016 None Full Exam - Pulmonary Ears/Nose/Throat teeth/gingiva Overall: no masses 12/26/2016 None Full Exam - Pulmonary Ears/Nose/Throat oropharynx Posterior Pharynx: clear post nasal drainage 12/26/2016 None Full Exam - Pulmonary Neck thyroid Overall: normal size 2016 None Full Exam - Pulmonary Neck thyroid Overall: normal consistency 12/26/2016 None Full Exam - Pulmonary Neck thyroid Overall: nontender 2016 None Full Exam - Pulmonary Neck inspection of neck Overall: normal size 12/26/2016 None Full Exam - Pulmonary Neck inspection of neck Overall: normal appearance 12/26/2016 None Full Exam - Pulmonary Respiratory auscultation Left lower lung field: crackles 12/26/2016 None Full Exam - Pulmonary Respiratory respiratory effort/rhythm Overall: no retractions 12/26/2016 None Full Exam - Pulmonary Respiratory respiratory effort/rhythm Overall: normal rate 12/26/2016 None Full Exam - Pulmonary Respiratory auscultation Right lower lung field: crackles 12/26/2016 None Full Exam - Pulmonary Cardiovascular auscultation of heart Overall: regular rate 12/26/2016 None Full Exam - Pulmonary Cardiovascular auscultation of heart Overall: normal heart sounds 12/26/2016 None Full Exam - Pulmonary Cardiovascular auscultation of heart Overall: no murmurs 12/26/2016 None Full Exam - Pulmonary Abdomen abdominal exam Overall: no tenderness 12/26/2016 None Full Exam - Pulmonary Abdomen abdominal exam Overall: normal bowel sounds 12/26/2016 None Full Exam - Pulmonary Musculoskeletal muscle strength and tone Overall: normal strength 12/26/2016 None Full Exam - Pulmonary Musculoskeletal muscle strength and tone Overall: normal tone 12/26/2016 None Full Exam - Pulmonary Musculoskeletal gait and station Overall: normal gait 12/26/2016 None Full Exam - Pulmonary Musculoskeletal gait and station Overall: normal station 12/26/2016 None Full Exam - Pulmonary Neurologic mental status Overall: alert 12/26/2016 None Full Exam - Pulmonary Neurologic mental status Overall: oriented 12/26/2016 None Full Exam - Pulmonary Neurologic gait Overall: no ataxia, no unsteadiness 12/26/2016 None Full Exam - Pulmonary Neurologic speech Overall: normal quality, no aphasia 12/26/2016 None Full Exam - Pulmonary Psychiatric orientation/consciousness Overall: oriented to person, place and time 12/26/2016 None Full Exam - Pulmonary Psychiatric mood and affect Overall: normal mood and affect 12/26/2016 None Full Exam - General 1994 Constitutional general appearance Overall: well nourished 12/02/2016 None Full Exam - General 1994 Constitutional general appearance Overall: well developed 12/02/2016 None Full Exam - General 1994 Constitutional general appearance Overall: in no acute distress 12/02/2016 None Full Exam - General 1994 Eyes pupils and irises Overall: pupils equal, round, reactive to light and accomodation 12/02/2016 None Full Exam - General 1994 Ears/Nose/Throat otoscopic exam Tympanic membrane: air- fluid level 12/02/2016 None Full Exam - General 1994 Ears/Nose/Throat otoscopic exam Tympanic membrane: tympanosclerosis 12/02/2016 None Full Exam - General 1994 Ears/Nose/Throat oral cavity/pharynx/larynx Oropharynx: erythema 12/02/2016 None Full Exam - General 1994 Respiratory respiratory effort/rhythm Overall: normal rate 12/02/2016 None Full Exam - General 1994 Respiratory respiratory effort/rhythm Overall: no retractions 12/02/2016 None Full Exam - General 1994 Respiratory auscultation Lower lung field: crackles 12/02/2016 faint Full Exam - General 1994 Cardiovascular auscultation of heart Overall: regular rate 12/02/2016 None Full Exam - General 1994 Cardiovascular auscultation of heart Overall: normal heart sounds 12/02/2016 None Full Exam - General 1994 Cardiovascular auscultation of heart Overall: no murmurs 12/02/2016 None Full Exam - General 1994 Cardiovascular extremities Overall: no clubbing 12/02/2016 None Full Exam - General 1994 Cardiovascular inspection of carotid pulses Overall: strong, bilaterally equal, no bruits 12/02/2016 None Full Exam - General 1994 Lymphatic neck nodes Overall: anterior cervical chain benign 12/02/2016 None Full Exam - General 1994 Lymphatic neck nodes Overall: posterior cervical chain benign 12/02/2016 None Full Exam - General 1994 Psychiatric orientation/consciousness Overall: oriented to person, place and time 12/02/2016 None Full Exam - General 1994 Psychiatric mood and affect Mood: happy 12/02/2016 None Full Exam - General 1994 Psychiatric mood and affect Overall: normal mood and affect 12/02/2016 None Full Exam - General 1994 Constitutional general appearance Development: well developed 11/21/2016 None Full Exam - General 1994 Constitutional general appearance Development: appears stated age 0111/21/2016 None Full Exam - General 1994 Constitutional general appearance Hygiene/Attention to Grooming: good hygiene 11/21/2016 None Full Exam - General 1994 Eyes conjunctiva /eyelids Overall: conjunctiva clear 11/21/2016 None Full Exam - General 1994 Eyes conjunctiva /eyelids Overall: cornea clear 11/21/2016 None Full Exam - General 1994 Eyes conjunctiva /eyelids Overall: eyelids normal 11/21/2016 None Full Exam - General 1994 Eyes pupils and irises Overall: pupils equal, round, reactive to light and accomodation 11/21/2016 None Full Exam - General 1994 Ears/Nose/Throat otoscopic exam Overall: external auditory canals clear 11/21/2016 None Full Exam - General 1994 Ears/Nose/Throat otoscopic exam Overall: tympanic membranes clear 11/21/2016 None Full Exam - General 1994 Ears/Nose/Throat lips/teeth/gingiva Overall: benign lips 11/21/2016 None Full Exam - General 1994 Ears/Nose/Throat lips/teeth/gingiva Overall: normal dentition 11/21/2016 None Full Exam - General 1994 Ears/Nose/Throat oral cavity/pharynx/larynx Overall: oral mucosa clear 11/21/2016 None Full Exam - General 1994 Ears/Nose/Throat oral cavity/pharynx/larynx Overall: oropharyngeal mucosa clear 11/21/2016 None Full Exam - General 1994 Ears/Nose/Throat oral cavity/pharynx/larynx Overall: hypopharynx benign 11/21/2016 None Full Exam - General 1994 Ears/Nose/Throat oral cavity/pharynx/larynx Overall: no masses 11/21/2016 None Full Exam - General 1994 Respiratory auscultation Overall: breath sounds clear bilaterally 11/21/2016 None Full Exam - General 1994 Respiratory respiratory effort/rhythm Overall: no retractions 11/21/2016 None Full Exam - General 1994 Respiratory respiratory effort/rhythm Overall: normal rate 11/21/2016 None Full Exam - General 1994 Cardiovascular extremities Overall: no clubbing 11/21/2016 None Full Exam - General 1994 Cardiovascular auscultation of heart Overall: regular rate 11/21/2016 None Full Exam - General 1994 Cardiovascular auscultation of heart Overall: normal heart sounds 11/21/2016 None Full Exam - General 1994 Abdomen abdominal exam Overall: no tenderness 11/21/2016 None Full Exam - General 1994 Abdomen abdominal exam Overall: normal bowel sounds 11/21/2016 None Full Exam - General 1994 Lymphatic neck nodes Overall: anterior cervical chain benign 11/21/2016 None Full Exam - General 1994 Lymphatic neck nodes Overall: posterior cervical chain benign 11/21/2016 None Full Exam - General 1994 Musculoskeletal spine, ribs and pelvis Overall: spine benign 11/21/2016 None Full Exam - General 1994 Musculoskeletal spine, ribs and pelvis Overall: sacroiliac joint benign 11/21/2016 None Full Exam - General 1994 Musculoskeletal spine, ribs and pelvis Overall: good posture 11/21/2016 None Full Exam - General 1994 Musculoskeletal head and neck Overall: head atraumatic 11/21/2016 None Full Exam - General 1994 Musculoskeletal head and neck Overall: cervical spine benign 11/21/2016 None Full Exam - General 1994 Integument inspection of skin Pigmentation: erythematous 11/21/2016 on right knee slightly indurated region of tissue Full Exam - General 1994 Neurologic deep tendon reflexes Overall: deep tendon reflexes intact 11/21/2016 None Full Exam - General 1994 Neurologic cranial nerves Overall: crainial nerves 2 - 12 grossly intact 11/21/2016 None Full Exam - General 1994 Psychiatric orientation/consciousness Overall: oriented to person, place and time 11/21/2016 None Full Exam - General 1994 Psychiatric mood and affect Overall: normal mood and affect 11/21/2016 None Full Exam - General 1994 Constitutional general appearance Hygiene/Attention to Grooming: good hygiene 10/25/2016 None Full Exam - General 1994 Eyes conjunctiva /eyelids Overall: conjunctiva clear 10/25/2016 None Full Exam - General 1994 Eyes conjunctiva /eyelids Overall: eyelids normal 10/25/2016 None Full Exam - General 1994 Eyes pupils and irises Overall: pupils equal, round, reactive to light and accomodation 10/25/2016 None Full Exam - General 1994 Ears/Nose/Throat otoscopic exam Overall: external auditory canals clear 10/25/2016 None Full Exam - General 1994 Ears/Nose/Throat otoscopic exam Overall: tympanic membranes clear 10/25/2016 None Full Exam - General 1994 Ears/Nose/Throat lips/teeth/gingiva Overall: benign lips 10/25/2016 None Full Exam - General 1994 Ears/Nose/Throat oral cavity/pharynx/larynx Overall: oral mucosa clear 10/25/2016 None Full Exam - General 1994 Ears/Nose/Throat oral cavity/pharynx/larynx Overall: oropharyngeal mucosa clear 10/25/2016 None Full Exam - General 1994 Ears/Nose/Throat oral cavity/pharynx/larynx Overall: no masses 10/25/2016 None Full Exam - General 1994 Respiratory auscultation Overall: breath sounds clear bilaterally 10/25/2016 None Full Exam - General 1994 Respiratory respiratory effort/rhythm Overall: no retractions 10/25/2016 None Full Exam - General 1994 Respiratory respiratory effort/rhythm Overall: normal rate 10/25/2016 None Full Exam - General 1994 Cardiovascular extremities Overall: no clubbing 10/25/2016 None Full Exam - General 1994 Cardiovascular auscultation of heart Overall: regular rate 10/25/2016 None Full Exam - General 1994 Cardiovascular auscultation of heart Overall: normal heart sounds 10/25/2016 None Full Exam - General 1994 Musculoskeletal spine, ribs and pelvis Overall: good posture 10/25/2016 None Full Exam - General 1994 Musculoskeletal head and neck Overall: head atraumatic 10/25/2016 None Full Exam - General 1994 Neurologic cranial nerves Overall: crainial nerves 2 - 12 grossly intact 10/25/2016 None Full Exam - General 1994 Psychiatric orientation/consciousness Overall: oriented to person, place and time 10/25/2016 None Full Exam - General 1994 Psychiatric mood and affect Overall: normal mood and affect 10/25/2016 None Full Exam - General 1994 Constitutional general appearance Overall: well developed 10/25/2016 None Full Exam - General 1994 Constitutional general appearance Overall: in no acute distress 10/25/2016 None Full Exam - General 1994 Constitutional general appearance Overall: well nourished 10/25/2016 None Full Exam - General 1994 Psychiatric appearance Overall: well-groomed, good eye contact 10/25/2016 None Full Exam - General 1994 Constitutional general appearance Development: well developed 10/23/2016 None Full Exam - General 1994 Constitutional general appearance Development: appears stated age 1210/23/2016 None Full Exam - General 1994 Constitutional general appearance Hygiene/Attention to Grooming: good hygiene 10/23/2016 None Full Exam - General 1994 Eyes conjunctiva /eyelids Overall: conjunctiva clear 10/23/2016 None Full Exam - General 1994 Eyes conjunctiva /eyelids Overall: cornea clear 10/23/2016 None Full Exam - General 1994 Eyes conjunctiva /eyelids Overall: eyelids normal 10/23/2016 None Full Exam - General 1994 Eyes pupils and irises Overall: pupils equal, round, reactive to light and accomodation 10/23/2016 None Full Exam - General 1994 Ears/Nose/Throat otoscopic exam Overall: external auditory canals clear 10/23/2016 None Full Exam - General 1994 Ears/Nose/Throat otoscopic exam Overall: tympanic membranes clear 10/23/2016 None Full Exam - General 1994 Ears/Nose/Throat lips/teeth/gingiva Overall: benign lips 10/23/2016 None Full Exam - General 1994 Ears/Nose/Throat lips/teeth/gingiva Overall: normal dentition 10/23/2016 None Full Exam - General 1994 Ears/Nose/Throat oral cavity/pharynx/larynx Overall: oral mucosa clear 10/23/2016 None Full Exam - General 1994 Ears/Nose/Throat oral cavity/pharynx/larynx Overall: oropharyngeal mucosa clear 10/23/2016 None Full Exam - General 1994 Ears/Nose/Throat oral cavity/pharynx/larynx Overall: hypopharynx benign 10/23/2016 None Full Exam - General 1994 Ears/Nose/Throat oral cavity/pharynx/larynx Overall: no masses 10/23/2016 None Full Exam - General 1994 Respiratory auscultation Overall: breath sounds clear bilaterally 10/23/2016 None Full Exam - General 1994 Respiratory respiratory effort/rhythm Overall: no retractions 10/23/2016 None Full Exam - General 1994 Respiratory respiratory effort/rhythm Overall: normal rate 10/23/2016 None Full Exam - General 1994 Cardiovascular extremities Overall: no clubbing 10/23/2016 None Full Exam - General 1994 Cardiovascular auscultation of heart Overall: regular rate 10/23/2016 None Full Exam - General 1994 Cardiovascular auscultation of heart Overall: normal heart sounds 10/23/2016 None Full Exam - General 1994 Abdomen abdominal exam Overall: no tenderness 10/23/2016 None Full Exam - General 1994 Abdomen abdominal exam Overall: normal bowel sounds 10/23/2016 None Full Exam - General 1994 Lymphatic neck nodes Overall: anterior cervical chain benign 10/23/2016 None Full Exam - General 1994 Lymphatic neck nodes Overall: posterior cervical chain benign 10/23/2016 None Full Exam - General 1994 Musculoskeletal spine, ribs and pelvis Overall: spine benign 10/23/2016 None Full Exam - General 1994 Musculoskeletal spine, ribs and pelvis Overall: sacroiliac joint benign 10/23/2016 None Full Exam - General 1994 Musculoskeletal spine, ribs and pelvis Overall: good posture 10/23/2016 None Full Exam - General 1994 Musculoskeletal head and neck Overall: head atraumatic 10/23/2016 None Full Exam - General 1994 Musculoskeletal head and neck Overall: cervical spine benign 10/23/2016 None Full Exam - General 1994 Integument inspection of skin Pigmentation: erythematous 10/23/2016 on right knee slightly indurated region of tissue Full Exam - General 1994 Neurologic deep tendon reflexes Overall: deep tendon reflexes intact 10/23/2016 None Full Exam - General 1994 Neurologic cranial nerves Overall: crainial nerves 2 - 12 grossly intact 10/23/2016 None Full Exam - General 1994 Psychiatric orientation/consciousness Overall: oriented to person, place and time 10/23/2016 None Full Exam - General 1994 Psychiatric mood and affect Overall: normal mood and affect 10/23/2016 None Full Exam - General 1994 Eyes conjunctiva /eyelids Overall: conjunctiva clear 07/29/2016 None Full Exam - General 1994 Eyes conjunctiva /eyelids Overall: cornea clear 07/29/2016 None Full Exam - General 1994 Eyes conjunctiva /eyelids Overall: eyelids normal 07/29/2016 None Full Exam - General 1994 Ears/Nose/Throat otoscopic exam Overall: external auditory canals clear 07/29/2016 None Full Exam - General 1994 Ears/Nose/Throat otoscopic exam Overall: tympanic membranes clear 07/29/2016 None Full Exam - General 1994 Ears/Nose/Throat lips/teeth/gingiva Overall: benign lips 07/29/2016 None Full Exam - General 1994 Ears/Nose/Throat lips/teeth/gingiva Overall: normal dentition 07/29/2016 None Full Exam - General 1994 Ears/Nose/Throat oral cavity/pharynx/larynx Overall: oral mucosa clear 07/29/2016 None Full Exam - General 1994 Respiratory auscultation Overall: breath sounds clear bilaterally 07/29/2016 None Full Exam - General 1994 Respiratory respiratory effort/rhythm Overall: no retractions 07/29/2016 None Full Exam - General 1994 Respiratory respiratory effort/rhythm Overall: normal rate 07/29/2016 None Full Exam - General 1994 Cardiovascular extremities Overall: no clubbing 07/29/2016 None Full Exam - General 1994 Cardiovascular auscultation of heart Overall: regular rate 07/29/2016 None Full Exam - General 1994 Cardiovascular auscultation of heart Overall: normal heart sounds 07/29/2016 None Full Exam - General 1994 Lymphatic neck nodes Overall: anterior cervical chain benign 07/29/2016 None Full Exam - General 1994 Lymphatic neck nodes Overall: posterior cervical chain benign 07/29/2016 None Full Exam - General 1994 Musculoskeletal spine, ribs and pelvis Overall: good posture 07/29/2016 None Full Exam - General 1994 Musculoskeletal head and neck Overall: head atraumatic 07/29/2016 None Full Exam - General 1994 Neurologic cranial nerves Overall: crainial nerves 2 - 12 grossly intact 07/29/2016 None Full Exam - General 1994 Psychiatric orientation/consciousness Overall: oriented to person, place and time 07/29/2016 None Full Exam - General 1994 Psychiatric mood and affect Overall: normal mood and affect 07/29/2016 None Full Exam - General 1994 Constitutional general appearance Overall: well developed 07/29/2016 None Full Exam - General 1994 Constitutional general appearance Overall: in no acute distress 07/29/2016 None Full Exam - General 1994 Constitutional general appearance Overall: well nourished 07/29/2016 None Full Exam - General 1994 Ears/Nose/Throat oral cavity/pharynx/larynx Posterior Pharynx: clear post nasal drainage 07/29/2016 None Full Exam - General 1994 Neurologic gait Overall: no ataxia, no unsteadiness 07/29/2016 None Full Exam - General 1994 Psychiatric appearance Overall: well-groomed, good eye contact 07/29/2016 None Full Exam - General 1994 Psychiatric speech Overall: normal quality, no aphasia 07/29/2016 None Full Exam - General 1994 Psychiatric speech Overall: normal quality, quantity, rate 07/29/2016 None Full Exam - General 1994 Constitutional general appearance Development: well developed 06/24/2016 None Full Exam - General 1994 Constitutional general appearance Development: appears stated age 0806/24/2016 None Full Exam - General 1994 Constitutional general appearance Hygiene/Attention to Grooming: good hygiene 06/24/2016 None Full Exam - General 1994 Eyes conjunctiva /eyelids Overall: conjunctiva clear 06/24/2016 None Full Exam - General 1994 Eyes conjunctiva /eyelids Overall: cornea clear 06/24/2016 None Full Exam - General 1994 Eyes conjunctiva /eyelids Overall: eyelids normal 06/24/2016 None Full Exam - General 1994 Eyes pupils and irises Overall: pupils equal, round, reactive to light and accomodation 06/24/2016 None Full Exam - General 1994 Ears/Nose/Throat otoscopic exam Overall: external auditory canals clear 06/24/2016 None Full Exam - General 1994 Ears/Nose/Throat otoscopic exam Overall: tympanic membranes clear 06/24/2016 None Full Exam - General 1994 Ears/Nose/Throat lips/teeth/gingiva Overall: benign lips 06/24/2016 None Full Exam - General 1994 Ears/Nose/Throat lips/teeth/gingiva Overall: normal dentition 06/24/2016 None Full Exam - General 1994 Ears/Nose/Throat oral cavity/pharynx/larynx Overall: oral mucosa clear 06/24/2016 None Full Exam - General 1994 Ears/Nose/Throat oral cavity/pharynx/larynx Overall: oropharyngeal mucosa clear 06/24/2016 None Full Exam - General 1994 Ears/Nose/Throat oral cavity/pharynx/larynx Overall: hypopharynx benign 06/24/2016 None Full Exam - General 1994 Ears/Nose/Throat oral cavity/pharynx/larynx Overall: no masses 06/24/2016 None Full Exam - General 1994 Respiratory auscultation Overall: breath sounds clear bilaterally 06/24/2016 None Full Exam - General 1994 Respiratory respiratory effort/rhythm Overall: no retractions 06/24/2016 None Full Exam - General 1994 Respiratory respiratory effort/rhythm Overall: normal rate 06/24/2016 None Full Exam - General 1994 Cardiovascular extremities Overall: no clubbing 06/24/2016 None Full Exam - General 1994 Cardiovascular auscultation of heart Overall: regular rate 06/24/2016 None Full Exam - General 1994 Cardiovascular auscultation of heart Overall: normal heart sounds 06/24/2016 None Full Exam - General 1994 Abdomen abdominal exam Overall: no tenderness 06/24/2016 None Full Exam - General 1994 Abdomen abdominal exam Overall: normal bowel sounds 06/24/2016 None Full Exam - General 1994 Lymphatic neck nodes Overall: anterior cervical chain benign 06/24/2016 None Full Exam - General 1994 Lymphatic neck nodes Overall: posterior cervical chain benign 06/24/2016 None Full Exam - General 1994 Musculoskeletal spine, ribs and pelvis Overall: spine benign 06/24/2016 None Full Exam - General 1994 Musculoskeletal spine, ribs and pelvis Overall: sacroiliac joint benign 06/24/2016 None Full Exam - General 1994 Musculoskeletal spine, ribs and pelvis Overall: good posture 06/24/2016 None Full Exam - General 1994 Musculoskeletal head and neck Overall: head atraumatic 06/24/2016 None Full Exam - General 1994 Musculoskeletal head and neck Overall: cervical spine benign 06/24/2016 None Full Exam - General 1994 Integument inspection of skin Pigmentation: erythematous 06/24/2016 on right knee slightly indurated region of tissue Full Exam - General 1994 Neurologic deep tendon reflexes Overall: deep tendon reflexes intact 06/24/2016 None Full Exam - General 1994 Neurologic cranial nerves Overall: crainial nerves 2 - 12 grossly intact 06/24/2016 None Full Exam - General 1994 Psychiatric orientation/consciousness Overall: oriented to person, place and time 06/24/2016 None Full Exam - General 1994 Psychiatric mood and affect Overall: normal mood and affect 06/24/2016 None Full Exam - General 1994 Constitutional general appearance Development: well developed 02/21/2016 None Full Exam - General 1994 Constitutional general appearance Development: appears stated age 0402/21/2016 None Full Exam - General 1994 Constitutional general appearance Hygiene/Attention to Grooming: good hygiene 02/21/2016 None Full Exam - General 1994 Eyes conjunctiva /eyelids Overall: conjunctiva clear 02/21/2016 None Full Exam - General 1994 Eyes conjunctiva /eyelids Overall: cornea clear 02/21/2016 None Full Exam - General 1994 Eyes conjunctiva /eyelids Overall: eyelids normal 02/21/2016 None Full Exam - General 1994 Eyes pupils and irises Overall: pupils equal, round, reactive to light and accomodation 02/21/2016 None Full Exam - General 1994 Ears/Nose/Throat otoscopic exam Overall: external auditory canals clear 02/21/2016 None Full Exam - General 1994 Ears/Nose/Throat otoscopic exam Overall: tympanic membranes clear 02/21/2016 None Full Exam - General 1994 Ears/Nose/Throat lips/teeth/gingiva Overall: benign lips 02/21/2016 None Full Exam - General 1994 Ears/Nose/Throat lips/teeth/gingiva Overall: normal dentition 02/21/2016 None Full Exam - General 1994 Ears/Nose/Throat oral cavity/pharynx/larynx Overall: oral mucosa clear 02/21/2016 None Full Exam - General 1994 Ears/Nose/Throat oral cavity/pharynx/larynx Overall: oropharyngeal mucosa clear 02/21/2016 None Full Exam - General 1994 Ears/Nose/Throat oral cavity/pharynx/larynx Overall: hypopharynx benign 02/21/2016 None Full Exam - General 1994 Ears/Nose/Throat oral cavity/pharynx/larynx Overall: no masses 02/21/2016 None Full Exam - General 1994 Respiratory auscultation Overall: breath sounds clear bilaterally 02/21/2016 None Full Exam - General 1994 Respiratory respiratory effort/rhythm Overall: no retractions 02/21/2016 None Full Exam - General 1994 Respiratory respiratory effort/rhythm Overall: normal rate 02/21/2016 None Full Exam - General 1994 Cardiovascular extremities Overall: no clubbing 02/21/2016 None Full Exam - General 1994 Cardiovascular auscultation of heart Overall: regular rate 02/21/2016 None Full Exam - General 1994 Cardiovascular auscultation of heart Overall: normal heart sounds 02/21/2016 None Full Exam - General 1994 Abdomen abdominal exam Overall: no tenderness 02/21/2016 None Full Exam - General 1994 Abdomen abdominal exam Overall: normal bowel sounds 02/21/2016 None Full Exam - General 1994 Lymphatic neck nodes Overall: anterior cervical chain benign 02/21/2016 None Full Exam - General 1994 Lymphatic neck nodes Overall: posterior cervical chain benign 02/21/2016 None Full Exam - General 1994 Musculoskeletal spine, ribs and pelvis Overall: spine benign 02/21/2016 None Full Exam - General 1994 Musculoskeletal spine, ribs and pelvis Overall: sacroiliac joint benign 02/21/2016 None Full Exam - General 1994 Musculoskeletal spine, ribs and pelvis Overall: good posture 02/21/2016 None Full Exam - General 1994 Musculoskeletal head and neck Overall: head atraumatic 02/21/2016 None Full Exam - General 1994 Musculoskeletal head and neck Overall: cervical spine benign 02/21/2016 None Full Exam - General 1994 Integument inspection of skin Pigmentation: erythematous 02/21/2016 on right knee slightly indurated region of tissue Full Exam - General 1994 Neurologic deep tendon reflexes Overall: deep tendon reflexes intact 02/21/2016 None Full Exam - General 1994 Neurologic cranial nerves Overall: crainial nerves 2 - 12 grossly intact 02/21/2016 None Full Exam - General 1994 Psychiatric orientation/consciousness Overall: oriented to person, place and time 02/21/2016 None Full Exam - General 1994 Psychiatric mood and affect Overall: normal mood and affect 02/21/2016 None Full Exam - General 1994 Constitutional general appearance Development: well developed 10/18/2015 None Full Exam - General 1994 Constitutional general appearance Development: appears stated age 1210/18/2015 None Full Exam - General 1994 Constitutional general appearance Hygiene/Attention to Grooming: good hygiene 10/18/2015 None Full Exam - General 1994 Eyes conjunctiva /eyelids Overall: conjunctiva clear 10/18/2015 None Full Exam - General 1994 Eyes conjunctiva /eyelids Overall: cornea clear 10/18/2015 None Full Exam - General 1994 Eyes conjunctiva /eyelids Overall: eyelids normal 10/18/2015 None Full Exam - General 1994 Eyes pupils and irises Overall: pupils equal, round, reactive to light and accomodation 10/18/2015 None Full Exam - General 1994 Ears/Nose/Throat otoscopic exam Overall: external auditory canals clear 10/18/2015 None Full Exam - General 1994 Ears/Nose/Throat otoscopic exam Overall: tympanic membranes clear 10/18/2015 None Full Exam - General 1994 Ears/Nose/Throat lips/teeth/gingiva Overall: benign lips 10/18/2015 None Full Exam - General 1994 Ears/Nose/Throat lips/teeth/gingiva Overall: normal dentition 10/18/2015 None Full Exam - General 1994 Ears/Nose/Throat oral cavity/pharynx/larynx Overall: oral mucosa clear 10/18/2015 None Full Exam - General 1994 Ears/Nose/Throat oral cavity/pharynx/larynx Overall: oropharyngeal mucosa clear 10/18/2015 None Full Exam - General 1994 Ears/Nose/Throat oral cavity/pharynx/larynx Overall: hypopharynx benign 10/18/2015 None Full Exam - General 1994 Ears/Nose/Throat oral cavity/pharynx/larynx Overall: no masses 10/18/2015 None Full Exam - General 1994 Respiratory auscultation Overall: breath sounds clear bilaterally 10/18/2015 None Full Exam - General 1994 Respiratory respiratory effort/rhythm Overall: no retractions 10/18/2015 None Full Exam - General 1994 Respiratory respiratory effort/rhythm Overall: normal rate 10/18/2015 None Full Exam - General 1994 Cardiovascular extremities Overall: no clubbing 10/18/2015 None Full Exam - General 1994 Cardiovascular auscultation of heart Overall: regular rate 10/18/2015 None Full Exam - General 1994 Cardiovascular auscultation of heart Overall: normal heart sounds 10/18/2015 None Full Exam - General 1994 Abdomen abdominal exam Overall: no tenderness 10/18/2015 None Full Exam - General 1994 Abdomen abdominal exam Overall: normal bowel sounds 10/18/2015 None Full Exam - General 1994 Lymphatic neck nodes Overall: anterior cervical chain benign 10/18/2015 None Full Exam - General 1994 Lymphatic neck nodes Overall: posterior cervical chain benign 10/18/2015 None Full Exam - General 1994 Musculoskeletal spine, ribs and pelvis Overall: spine benign 10/18/2015 None Full Exam - General 1994 Musculoskeletal spine, ribs and pelvis Overall: sacroiliac joint benign 10/18/2015 None Full Exam - General 1994 Musculoskeletal spine, ribs and pelvis Overall: good posture 10/18/2015 None Full Exam - General 1994 Musculoskeletal head and neck Overall: head atraumatic 10/18/2015 None Full Exam - General 1994 Musculoskeletal head and neck Overall: cervical spine benign 10/18/2015 None Full Exam - General 1994 Neurologic deep tendon reflexes Overall: deep tendon reflexes intact 10/18/2015 None Full Exam - General 1994 Neurologic cranial nerves Overall: crainial nerves 2 - 12 grossly intact 10/18/2015 None Full Exam - General 1994 Psychiatric orientation/consciousness Overall: oriented to person, place and time 10/18/2015 None Full Exam - General 1994 Psychiatric mood and affect Overall: normal mood and affect 10/18/2015 None Full Exam - General 1994 Integument inspection of skin Pigmentation: erythematous 10/18/2015 on right knee slightly indurated region of tissue Full Exam - General 1994 Abdomen abdominal exam Overall: normal bowel sounds 05/02/2015 abdominal diastasis recti Full Exam - General 1994 Psychiatric orientation/consciousness Overall: oriented to person, place and time 05/02/2015 None Full Exam - General 1994 Psychiatric mood and affect Overall: normal mood and affect 05/02/2015 None Full Exam - General 1994 Psychiatric appearance Overall: well-groomed, good eye contact 05/02/2015 None Full Exam - General 1994 Neurologic deep tendon reflexes Overall: deep tendon reflexes intact 05/02/2015 None Full Exam - General 1994 Neurologic gait Overall: no ataxia, no unsteadiness 05/02/2015 None Full Exam - General 1994 Integument inspection of skin Overall: few scattered moles, no gross abnormalities 05/02/2015 None Full Exam - General 1994 Musculoskeletal head and neck Overall: head atraumatic 05/02/2015 None Full Exam - General 1994 Musculoskeletal head and neck Overall: cervical spine benign 05/02/2015 None Full Exam - General 1994 Musculoskeletal gait and station Overall: normal gait 05/02/2015 None Full Exam - General 1994 Musculoskeletal gait and station Overall: normal station 05/02/2015 None Full Exam - General 1994 Musculoskeletal spine, ribs and pelvis Overall: ribs benign 05/02/2015 None Full Exam - General 1994 Musculoskeletal spine, ribs and pelvis Overall: spine benign 05/02/2015 None Full Exam - General 1994 Musculoskeletal spine, ribs and pelvis Overall: sacroiliac joint benign 05/02/2015 None Full Exam - General 1994 Lymphatic neck nodes Overall: posterior cervical chain benign 05/02/2015 None Full Exam - General 1994 Lymphatic neck nodes Overall: anterior cervical chain benign 05/02/2015 None Full Exam - General 1994 Abdomen abdominal exam Upper quadrant: non-tender to palpation 05/02/2015 None Full Exam - General 1994 Abdomen abdominal exam Lower quadrant: tender to palpation 05/02/2015 None Full Exam - General 1994 Abdomen abdominal exam Epigastric: non-tender to palpation 05/02/2015 None Full Exam - General 1994 Abdomen abdominal exam Periumbilical: non-tender to palpation 05/02/2015 None Full Exam - General 1994 Abdomen abdominal exam Suprapubic: tender to palpation 05/02/2015 None Full Exam - General 1994 Cardiovascular auscultation of heart Overall: regular rate 05/02/2015 None Full Exam - General 1994 Cardiovascular auscultation of heart Overall: normal heart sounds 05/02/2015 None Full Exam - General 1994 Cardiovascular extremities Overall: no clubbing 05/02/2015 None Full Exam - General 1994 Cardiovascular inspection of pedal pulses Dorsalis pedis: a normal exam 05/02/2015 None Full Exam - General 1994 Respiratory respiratory effort/rhythm Overall: no retractions 05/02/2015 None Full Exam - General 1994 Respiratory respiratory effort/rhythm Overall: normal rate 05/02/2015 None Full Exam - General 1994 Respiratory auscultation Overall: breath sounds clear bilaterally 05/02/2015 None Full Exam - General 1994 Neck inspection of neck Overall: normal size 05/02/2015 None Full Exam - General 1994 Neck inspection of neck Overall: normal appearance 05/02/2015 None Full Exam - General 1994 Ears/Nose/Throat oral cavity/pharynx/larynx Overall: oropharyngeal mucosa clear 05/02/2015 None Full Exam - General 1994 Ears/Nose/Throat lips/teeth/gingiva Overall: benign lips 05/02/2015 None Full Exam - General 1994 Ears/Nose/Throat lips/teeth/gingiva Overall: normal dentition 05/02/2015 None Full Exam - General 1994 Eyes pupils and irises Overall: pupils equal, round, reactive to light and accomodation 05/02/2015 None Full Exam - General 1994 Eyes conjunctiva /eyelids Overall: cornea clear 05/02/2015 None Full Exam - General 1994 Eyes conjunctiva /eyelids Overall: eyelids normal 05/02/2015 None Full Exam - General 1994 Eyes conjunctiva /eyelids Overall: conjunctiva clear 05/02/2015 None Full Exam - General 1994 Constitutional general appearance Development: well developed 05/02/2015 None Full Exam - General 1994 Constitutional general appearance Development: appears stated age 0605/02/2015 None Full Exam - General 1994 Constitutional general appearance Overall: in no acute distress 05/02/2015 None Full Exam - General 1994 Constitutional general appearance Overall: well nourished 05/02/2015 None Procedures Procedure Codes Date OCCULT BLOOD FECES CPT -4: 81405 04/08/2018 PPPS, SUBSEQ VISIT CPT -4: G0439 04/03/2018 PPPS, SUBSEQ VISIT CPT -4: G0439 10/31/2017 PRESCRIP TRANSMIT VIA ERX SY CPT-4: G8553 09/22/2017 THER/PROPH/DIAG INJ SC/IM CPT-4: 19514 01/21/2017 TRIAMCINOLONE ACET INJ NOS CPT-4: J3301 01/21/2017 THER/PROPH/DIAG INJ SC/IM CPT-4: 77724 12/30/2016 ROCEPHIN, PER 250 MG CPT-4: J0696 12/30/2016 PPPS, SUBSEQ VISIT CPT -4: G0439 10/25/2016 ROCEPHIN, PER 250 MG CPT-4: J0696 06/24/2016 THER/PROPH/DIAG INJ SC/IM CPT-4: 30055 06/24/2016 Vital Signs Date Vital 04/03/2018 Blood Pressure 1: 128/72 Code : 8480-6 BMI: 29.8 Code : 16292-5 Heart Rate 1 : 60 bpm Height: 5'8" SpO2: 96% Weight: 196 lbs 03/31/2018 Blood Pressure 1: 12876 Code : 8480-6 BMI: 29.8 Code : 27725-2 Heart Rate 1 : 56 bpm Height: 5'8" SpO2: 98% Weight: 196 lbs 11/26/2017 Blood Pressure 1: 156/76 Code : 8480-6 BMI: 29.6 Code : 76975-4 Heart Rate 1 : 57 bpm Height: 5'8" SpO2: 98% Weight: 195 lbs 10/31/2017 Blood Pressure 1: 136/74 Code : 8480-6 BMI: 29.5 Code : 70353-9 Heart Rate 1 : 56 bpm Height: 5'8" SpO2: 95% Waist Measure (cm): 91 cm Weight: 194 lbs 10/07/2017 Blood Pressure 1: 136/72 Code : 8480-6 BMI: 30.3 Code : 56719-2 Heart Rate 1 : 58 bpm Height: 5'8" SpO2: 96% Weight: 199 lbs 09/22/2017 Blood Pressure 1: 138/78 Code : 8480-6 BMI: 30.4 Code : 95359-0 Heart Rate 1 : 60 bpm Height: 5'8" SpO2: 98% Temperature: 36.6 (C) / 97.9 (F) Weight: 200 lbs 05/08/2017 Blood Pressure 1: 128/80 Code : 8480-6 BMI: 30.0 Code : 86770-7 Heart Rate 1 : 75 bpm Height: 5'8" SpO2: 98% Weight: 197 lbs 03/25/2017 Blood Pressure 1: 150/80 Code : 8480-6 BMI: 30.1 Code : 25125-7 Heart Rate 1 : 53 bpm Height: 5'8" SpO2: 98% Weight: 198 lbs 01/21/2017 Blood Pressure 1: 156/88 Code : 8480-6 BMI: 29.8 Code : 85613-4 Heart Rate 1 : 95 bpm Height: 5'8" SpO2: 98% Temperature: 36.9 (C) / 98.4 (F) Weight: 196 lbs 12/30/2016 Blood Pressure 1: 122/74 Code : 8480-6 BMI: 29.8 Code : 04486-7 Heart Rate 1 : 60 bpm Height: 5'8" SpO2: 96% Temperature: 37.1 (C) / 98.8 (F) Weight: 196 lbs 12/26/2016 Blood Pressure 1: 142/74 Code : 8480-6 BMI: 29.8 Code : 48351-2 Heart Rate 1 : 58 bpm Height: 5'8" SpO2: 96% Temperature: 36.7 (C) / 98.0 (F) Weight: 196 lbs 12/02/2016 Blood Pressure 1: 128/78 Code : 8480-6 BMI: 30.3 Code : 39027-2 Heart Rate 1 : 49 bpm Height: 5'8" SpO2: 98% Temperature: 36.5 (C) / 97.7 (F) Weight: 199 lbs 11/21/2016 Blood Pressure 1: 130/68 Code : 8480-6 BMI: 30.3 Code : 64232-3 Heart Rate 1 : 54 bpm Height: 5'8" SpO2: 98% Weight: 199 lbs 10/25/2016 Blood Pressure 1: 150/92 Code : 8480-6 BMI: 29.8 Code : 55177-9 Heart Rate 1 : 54 bpm Height: 5'8" SpO2: 97% Waist Measure (cm): 97 cm Weight: 196 lbs 10/23/2016 Blood Pressure 1: 150/92 Code : 8480-6 BMI: 29.9 Code : 94544-7 Heart Rate 1 : 54 bpm Height: 5'8" SpO2: 98% Weight: 196 lbs 8 oz 07/29/2016 Blood Pressure 1: 144/72 Code : 8480-6 BMI: 30.3 Code : 05083-0 Heart Rate 1 : 54 bpm Height: 5'8" SpO2: 98% Weight: 199 lbs 06/24/2016 Blood Pressure 1: 132/78 Code : 8480-6 BMI: 29.5 Code : 14044-3 Heart Rate 1 : 59 bpm Height: 5'8" SpO2: 94% Weight: 194 lbs 02/21/2016 Blood Pressure 1: 138/84 Code : 8480-6 BMI: 30.3 Code : 48048-6 Heart Rate 1 : 64 bpm Height: 5'8" SpO2: 95% Weight: 199 lbs 10/18/2015 Blood Pressure 1: 138/72 Code : 8480-6 Blood Pressure 1: 154/84 Code: 8480-6 BMI: 30.4 Code: 45202-4 Heart Rate 1: 68 bpm Height: 5'8" SpO2: 97% Weight: 200 lbs 05/02/2015 Blood Pressure 1: 114/64 Code : 8480-6 BMI: 29.0 Code : 00931-9 Heart Rate 1 : 62 bpm Height: 5'8" Respiratory Rate: 20 bpm Weight: 191 lbs Functional Status No Functional Status data History of Present Illness Symptom Name Status Result Effective Date Notes Annual Medicare Wellness Exam Depression or Hopelessness almost never 04/03/2018 None Annual Medicare Wellness Exam Depression (last 6 months) almost never 04/03/2018 None Annual Medicare Wellness Exam Describe Your Health very good 04/03/2018 None Annual Medicare Wellness Exam Motor Vehicle Safety always fastens seat belt: yes 04/03/2018 None Annual Medicare Wellness Exam Alcohol Use does not drink any alcohol 04/03/2018 None Annual Medicare Wellness Exam Smoking and Tobacco Use non smoker 04/03/2018 None Annual Medicare Wellness Exam Exercise Habits exercises 3 days per week 04/03/2018 None Annual Medicare Wellness Exam Exercise Habits exercises 20 minutes per day 04/03/2018 None Annual Medicare Wellness Exam Aspirin Use yes 04/03/2018 None Annual Medicare Wellness Exam Blood Glucose (self reported) don't know 04/03/2018 None Annual Medicare Wellness Exam Hemaglobin A-1C (self reported ) don't know 04/03/2018 None Annual Medicare Wellness Exam Blood Pressure (self reported ) diagnosed with hypertension 04/03/2018 None Annual Medicare Wellness Exam Cholesterol (self reported) diagnosed with elevated cholesterol 2017 None Annual Medicare Wellness Exam Handling Stress usually migdalia effectively 04/03/2018 None Annual Medicare Wellness Exam Interaction with Friends yes 04/03/2018 None Annual Medicare Wellness Exam Interests & Pleasure daily 04/03/2018 None Annual Medicare Wellness Exam Social & Emotional Support always 04/03/2018 None Annual Medicare Wellness Exam Stress almost never 04/03/2018 None Annual Medicare Wellness Exam Hours of Sleep 7-8 04/03/2018 None Annual Medicare Wellness Exam Sun Exposure protects skin when outdoors: yes 04/03/2018 None Annual Medicare Wellness Exam Life Satisfaction very satisfied 04/03/2018 None Annual Medicare Wellness Exam Nutrition servings of fried food / high fat foods per day: 0-1 2017 None Annual Medicare Wellness Exam Nutrition servings of high fiber / whole grain per day: 1-2 04/03/2018 None Annual Medicare Wellness Exam Nutrition servings of vegetables / fruit per day: 2-3 04/03/2018 None low back pain Quality acute 03/31/2018 None low back pain Quality intermittent 03/31/2018 None low back pain Location on the left 03/31/2018 None low back pain Onset and Resolution ongoing 03/31/2018 None low back pain Onset of Symptom 3-4 months ago 03/31/2018 None low back pain Limitation on Activities moderately limits activities 03/31/2018 None low back pain Frequency of Episodes daily 03/31/2018 None low back pain Mechanism of injury unknown 03/31/2018 None low back pain Exacerbating Factors activity 03/31/2018 None low back pain Exacerbating Factors changing position 03/31/2018 None low back pain Exacerbating Factors standing or walking 03/31/2018 None low back pain Pertinent Findings pain with movement 03/31/2018 None low back pain Significant Medical Conditions cancer 03/31/2018 None acrochordon (skin tags) Location on the neck 11/26/2017 None acrochordon (skin tags) Location in both axillae 11/26/2017 None acrochordon (skin tags) Onset and Resolution ongoing 11/26/2017 None acrochordon (skin tags) Significant Medical Conditions rubbing 11/26/2017 None skin lesion Location left arm 11/26/2017 None skin lesion Quality tender 11/26/2017 None skin lesion Quality ulcerated 11/26/2017 None skin lesion Onset and Resolution ongoing 11/26/2017 None Annual Medicare Wellness Exam Alcohol Use does not drink any alcohol 10/31/2017 None Annual Medicare Wellness Exam Aspirin Use yes 10/31/2017 None Annual Medicare Wellness Exam Blood Glucose (self reported) don't know 10/31/2017 None Annual Medicare Wellness Exam Blood Pressure (self reported ) borderline (120/80 - 139/89) 10/31/2017 None Annual Medicare Wellness Exam Cholesterol (self reported) don't know 10/31/2017 None Annual Medicare Wellness Exam Depression (last 6 months) almost never 10/31/2017 None Annual Medicare Wellness Exam Depression or Hopelessness almost never 10/31/2017 None Annual Medicare Wellness Exam Describe Your Health fair 10/31/2017 None Annual Medicare Wellness Exam Exercise Habits does not exercise 10/31/2017 None Annual Medicare Wellness Exam Handling Stress usually migdalia effectively 10/31/2017 None Annual Medicare Wellness Exam Hemaglobin A-1C (self reported ) don't know 10/31/2017 None Annual Medicare Wellness Exam Hours of Sleep 8 10/31/2017 None Annual Medicare Wellness Exam Interaction with Friends yes 10/31/2017 None Annual Medicare Wellness Exam Interests & Pleasure almost all of the time 10/31/2017 None Annual Medicare Wellness Exam Life Satisfaction very satisfied 10/31/2017 None Annual Medicare Wellness Exam Motor Vehicle Safety always fastens seat belt: y 10/31/2017 None Annual Medicare Wellness Exam Motor Vehicle Safety drives after drinking: n 10/31/2017 None Annual Medicare Wellness Exam Motor Vehicle Safety rides with someone who has been drinking: n 2016 None Annual Medicare Wellness Exam Nutrition servings of fried food / high fat foods per day: 0 2016 None Annual Medicare Wellness Exam Nutrition servings of high fiber / whole grain per day: 0 10/31/2017 None Annual Medicare Wellness Exam Nutrition servings of vegetables / fruit per day: 6 10/31/2017 None Annual Medicare Wellness Exam Smoking and Tobacco Use non smoker 10/31/2017 None Annual Medicare Wellness Exam Social & Emotional Support always 10/31/2017 None Annual Medicare Wellness Exam Stress almost never 10/31/2017 None Annual Medicare Wellness Exam Sun Exposure protects skin when outdoors: y 10/31/2017 None hypertension Quality chronic 10/07/2017 None hypertension Quality primary hypertension 10/07/2017 None hypertension Onset and Resolution ongoing 10/07/2017 None hypertension Onset of Symptom during adulthood 10/07/2017 None hypertension Blood Pressure Values not checking blood pressure at home 10/07/2017 None hypertension Alleviating Factors medication 10/07/2017 None hypertension Exacerbating Factors stress 10/07/2017 None hypertension Pertinent Findings Denies decreased energy 10/07/2017 None hypertension Pertinent Findings Denies dizziness 10/07/2017 None hypertension Pertinent Findings Denies dyspnea 10/07/2017 None hypertension Pertinent Findings Denies edema 10/07/2017 None hypertension Pertinent Findings Denies nausea 10/07/2017 None cough Quality acute None cough Quality intermittent 10/07/2017 None cough Quality productive 10/07/2017 None cough Onset and Resolution sudden in onset 10/07/2017 None cough Onset of Symptom 1 days ago 10/07/2017 None cough Pertinent Findings Denies fever 10/07/2017 None cough Pertinent Findings hoarseness 10/07/2017 None cough Pertinent Findings Denies muscle aches 10/07/2017 None cough Pertinent Findings Denies nasal congestion 10/07/2017 None cough Pertinent Findings Denies nausea 10/07/2017 None cough Pertinent Findings Denies post nasal drip 10/07/2017 None cough Pertinent Findings sputum production 10/07/2017 white ~generic Quality chronic 10/07/2017 None ~generic Quality intermittent 10/07/2017 left hand/thumb worst area of tremors ~generic Severity mild 10/07/2017 None ~generic Exacerbating Factors activity 10/07/2017 None cough Quality acute None cough Quality intermittent 09/22/2017 None cough Quality productive 09/22/2017 None cough Onset and Resolution sudden in onset 09/22/2017 None cough Onset of Symptom 1 days ago 09/22/2017 None cough Pertinent Findings Denies fever 09/22/2017 None cough Pertinent Findings hoarseness 09/22/2017 None cough Pertinent Findings Denies muscle aches 09/22/2017 None cough Pertinent Findings Denies nausea 09/22/2017 None cough Pertinent Findings sputum production 09/22/2017 white cough Pertinent Findings Denies post nasal drip 09/22/2017 None cough Pertinent Findings Denies nasal congestion 09/22/2017 None abdominal pain Location in the LLQ 05/08/2017 None abdominal pain Quality acute 05/08/2017 None abdominal pain Onset and Resolution sudden in onset 05/08/2017 None abdominal pain Onset of Symptom 2-3 days ago 05/08/2017 None abdominal pain Limitation on Activities moderately limits activities 05/08/2017 None abdominal pain Alleviating Factors medication 05/08/2017 None hypertension Quality chronic 03/25/2017 None hypertension Onset and Resolution ongoing 03/25/2017 None hypertension Onset of Symptom during adulthood 03/25/2017 None hypertension Alleviating Factors medication 03/25/2017 None hypertension Exacerbating Factors stress 03/25/2017 None hypertension Pertinent Findings Denies decreased energy 03/25/2017 None hypertension Pertinent Findings Denies dizziness 03/25/2017 None hypertension Pertinent Findings Denies dyspnea 03/25/2017 None hypertension Pertinent Findings Denies edema 03/25/2017 None hypertension Pertinent Findings Denies nausea 03/25/2017 None hypertension Blood Pressure Values not checking blood pressure at home 03/25/2017 None hypertension Quality primary hypertension 03/25/2017 None cough Location in the lung 01/21/2017 None cough Quality constant 01/21/2017 None cough Quality hacking 01/21/2017 None cough Quality productive 01/21/2017 None cough Onset and Resolution ongoing 01/21/2017 None cough Pertinent Findings chest discomfort 01/21/2017 None cough Onset of Symptom _ weeks ago 01/21/2017 None cough Limitation on Activities does not limit activities 01/21/2017 None cough Frequency of Episodes unchanged 01/21/2017 None cough Triggers no known associated factors 01/21/2017 None sore throat Quality acute 12/30/2016 None sore throat Onset of Symptom 3 weeks ago 12/30/2016 None sore throat Limitation on Activities does not limit oral intake 12/30/2016 None sore throat Significant Medications antibiotics 12/30/2016 was prescribed two ABT on 12/02 sore throat Triggers no known associated factors 12/30/2016 None sore throat Pertinent Findings cough 12/30/2016 None sore throat Pertinent Findings fever 12/30/2016 None sore throat Pertinent Findings Denies nasal congestion 12/30/2016 None cough Quality acute None cough Quality intermittent 12/30/2016 None cough Quality productive 12/30/2016 None cough Onset of Symptom 3 days ago 12/30/2016 None cough Triggers no known associated factors 12/30/2016 None cough Exacerbating Factors exercise 12/30/2016 None cough Exacerbating Factors stress 12/30/2016 None cough Exacerbating Factors cold exposure 12/30/2016 None cough Pertinent Findings chest discomfort 12/30/2016 None cough Pertinent Findings dyspnea 12/30/2016 None cough Pertinent Findings fever 12/30/2016 None cough Pertinent Findings muscle aches 12/30/2016 stiff cough Pertinent Findings Denies nasal congestion 12/30/2016 None cough Pertinent Findings sputum production 12/30/2016 clear sore throat Onset and Resolution ongoing 12/30/2016 None cough Onset and Resolution ongoing 12/30/2016 None sore throat Quality acute 12/26/2016 None sore throat Onset and Resolution sudden in onset 12/26/2016 None sore throat Pertinent Findings cough 12/26/2016 None sore throat Pertinent Findings fever 12/26/2016 None cough Quality acute None cough Quality intermittent 12/26/2016 None cough Quality productive 12/26/2016 None cough Onset and Resolution sudden in onset 12/26/2016 None cough Onset of Symptom 3 days ago 12/26/2016 None cough Pertinent Findings fever 12/26/2016 None cough Pertinent Findings sputum production 12/26/2016 clear sore throat Onset of Symptom 3 weeks ago 12/26/2016 None sore throat Limitation on Activities does not limit oral intake 12/26/2016 None sore throat Pertinent Findings Denies nasal congestion 12/26/2016 None sore throat Significant Medications antibiotics 12/26/2016 was prescribed two ABT on 12/02 sore throat Triggers no known associated factors 12/26/2016 None cough Pertinent Findings dyspnea 12/26/2016 None cough Pertinent Findings chest discomfort 12/26/2016 None cough Pertinent Findings muscle aches 12/26/2016 stiff cough Pertinent Findings Denies nasal congestion 12/26/2016 None cough Triggers no known associated factors 12/26/2016 None cough Exacerbating Factors exercise 12/26/2016 None cough Exacerbating Factors stress 12/26/2016 None cough Exacerbating Factors cold exposure 12/26/2016 None sore throat Quality acute 12/02/2016 None sore throat Onset and Resolution sudden in onset 12/02/2016 None sore throat Onset of Symptom 3 days ago 12/02/2016 None sore throat Pertinent Findings cough 12/02/2016 None sore throat Pertinent Findings Denies fever 12/02/2016 None cough Quality acute None cough Quality intermittent 12/02/2016 None cough Quality productive 12/02/2016 None cough Onset and Resolution sudden in onset 12/02/2016 None cough Onset of Symptom 3 days ago 12/02/2016 None cough Pertinent Findings Denies fever 12/02/2016 None cough Pertinent Findings sputum production 12/02/2016 whitish ~generic Quality acute 11/21/2016 None ~generic Onset and Resolution ongoing 11/21/2016 None hypertension Quality chronic 11/21/2016 None hypertension Onset and Resolution ongoing 11/21/2016 None hypertension Onset of Symptom during adulthood 11/21/2016 None hypertension Blood Pressure Values patient checking blood pressure at home - did not bring in readings 11/21/2016 None hypertension Alleviating Factors medication 11/21/2016 None hypertension Exacerbating Factors stress 11/21/2016 None hypertension Pertinent Findings decreased energy 11/21/2016 -improving hypertension Pertinent Findings Denies dizziness 11/21/2016 None hypertension Pertinent Findings Denies dyspnea 11/21/2016 None hypertension Pertinent Findings Denies edema 11/21/2016 None hypertension Pertinent Findings Denies nausea 11/21/2016 None hyperlipidemia Onset and Resolution gradual in onset 11/21/2016 None hyperlipidemia Onset and Resolution ongoing 11/21/2016 None hyperlipidemia Onset of Symptom during adulthood 11/21/2016 None hyperlipidemia Alleviating Factors medication 11/21/2016 None hyperlipidemia Exacerbating Factors diet 11/21/2016 None diaphoresis Onset and Resolution sudden in onset 11/21/2016 None diaphoresis Onset of Symptom 1 weeks ago 11/21/2016 None diaphoresis Timing of Episodes at night 11/21/2016 None diaphoresis Pertinent Findings Denies dizziness 11/21/2016 None diaphoresis Pertinent Findings Denies dyspnea 11/21/2016 None diaphoresis Pertinent Findings Denies lightheadedness 11/21/2016 None diaphoresis Pertinent Findings Denies nausea 11/21/2016 None Annual Medicare Wellness Exam Alcohol Use does not drink any alcohol 10/25/2016 None Annual Medicare Wellness Exam Aspirin Use yes 10/25/2016 None Annual Medicare Wellness Exam Blood Glucose (self reported) don't know 10/25/2016 None Annual Medicare Wellness Exam Blood Pressure (self reported ) high (140/90 or higher) 10/25/2016 None Annual Medicare Wellness Exam Cholesterol (self reported) don't know 10/25/2016 None Annual Medicare Wellness Exam Depression (last 6 months) almost never 10/25/2016 None Annual Medicare Wellness Exam Depression or Hopelessness almost never 10/25/2016 None Annual Medicare Wellness Exam Describe Your Health excellent 10/25/2016 None Annual Medicare Wellness Exam Exercise Habits exercises 7 days per week 10/25/2016 None Annual Medicare Wellness Exam Handling Stress usually migdalia effectively 10/25/2016 None Annual Medicare Wellness Exam Hemaglobin A-1C (self reported ) don't know 10/25/2016 None Annual Medicare Wellness Exam Hours of Sleep 6 10/25/2016 None Annual Medicare Wellness Exam Interaction with Friends yes 10/25/2016 None Annual Medicare Wellness Exam Interests & Pleasure daily 10/25/2016 None Annual Medicare Wellness Exam Life Satisfaction satisfied 10/25/2016 None Annual Medicare Wellness Exam Motor Vehicle Safety always fastens seat belt: y 10/25/2016 None Annual Medicare Wellness Exam Motor Vehicle Safety drives after drinking: n 10/25/2016 None Annual Medicare Wellness Exam Motor Vehicle Safety rides with someone who has been drinking: n 2015 None Annual Medicare Wellness Exam Nutrition servings of fried food / high fat foods per day: 1 2015 None Annual Medicare Wellness Exam Nutrition servings of high fiber / whole grain per day: 1 10/25/2016 None Annual Medicare Wellness Exam Nutrition servings of vegetables / fruit per day: 4 10/25/2016 None Annual Medicare Wellness Exam Smoking and Tobacco Use non smoker 10/25/2016 None Annual Medicare Wellness Exam Social & Emotional Support always 10/25/2016 None Annual Medicare Wellness Exam Stress almost never 10/25/2016 None Annual Medicare Wellness Exam Sun Exposure protects skin when outdoors: _ 10/25/2016 None ~generic Quality acute 10/23/2016 None ~generic Onset and Resolution ongoing 10/23/2016 None hypertension Quality chronic 10/23/2016 None hypertension Onset and Resolution ongoing 10/23/2016 None hypertension Onset of Symptom during adulthood 10/23/2016 None hypertension Blood Pressure Values patient checking blood pressure at home - did not bring in readings 10/23/2016 None hypertension Alleviating Factors medication 10/23/2016 None hypertension Exacerbating Factors stress 10/23/2016 None hypertension Pertinent Findings Denies decreased energy 10/23/2016 None hypertension Pertinent Findings Denies dizziness 10/23/2016 None hypertension Pertinent Findings Denies dyspnea 10/23/2016 None hypertension Pertinent Findings Denies edema 10/23/2016 None hyperlipidemia Onset and Resolution gradual in onset 10/23/2016 None hyperlipidemia Onset and Resolution ongoing 10/23/2016 None hyperlipidemia Onset of Symptom during adulthood 10/23/2016 None hyperlipidemia Alleviating Factors medication 10/23/2016 None hyperlipidemia Exacerbating Factors diet 10/23/2016 None cough Location in the throat 07/29/2016 None cough Quality dry 10/2016 None cough Quality constant 07/29/2016 None cough Onset and Resolution ongoing 07/29/2016 None cough Onset of Symptom 1 months ago 07/29/2016 None cough Frequency of Episodes daily 07/29/2016 None cough Pertinent Findings hoarseness 07/29/2016 None ~generic Quality acute 06/24/2016 None ~generic Onset and Resolution ongoing 06/24/2016 None hypertension Quality chronic 06/24/2016 None hypertension Onset and Resolution ongoing 06/24/2016 None hypertension Onset of Symptom during adulthood 06/24/2016 None hypertension Alleviating Factors medication 06/24/2016 None hypertension Exacerbating Factors stress 06/24/2016 None hypertension Pertinent Findings decreased energy 06/24/2016 -improving hypertension Pertinent Findings Denies dizziness 06/24/2016 None hypertension Pertinent Findings Denies dyspnea 06/24/2016 None hypertension Pertinent Findings Denies edema 06/24/2016 None hypertension Pertinent Findings Denies nausea 06/24/2016 None hyperlipidemia Onset and Resolution ongoing 06/24/2016 None hyperlipidemia Onset of Symptom during adulthood 06/24/2016 None hyperlipidemia Alleviating Factors medication 06/24/2016 None hyperlipidemia Exacerbating Factors diet 06/24/2016 None hypertension Blood Pressure Values patient checking blood pressure at home - did not bring in readings 06/24/2016 None hyperlipidemia Onset and Resolution gradual in onset 06/24/2016 None diaphoresis Onset of Symptom 1 weeks ago 06/24/2016 None diaphoresis Onset and Resolution sudden in onset 06/24/2016 None diaphoresis Timing of Episodes at night 06/24/2016 None diaphoresis Pertinent Findings Denies nausea 06/24/2016 None diaphoresis Pertinent Findings Denies lightheadedness 06/24/2016 None diaphoresis Pertinent Findings Denies dyspnea 06/24/2016 None diaphoresis Pertinent Findings Denies dizziness 06/24/2016 None ~generic Quality acute 02/21/2016 None ~generic Onset and Resolution ongoing 02/21/2016 None hypertension Quality chronic 02/21/2016 None hypertension Onset and Resolution ongoing 02/21/2016 None hypertension Onset of Symptom during adulthood 02/21/2016 None hypertension Alleviating Factors medication 02/21/2016 None hypertension Exacerbating Factors stress 02/21/2016 None hypertension Blood Pressure Values not checking blood pressure at home 02/21/2016 None hypertension Pertinent Findings Denies dizziness 02/21/2016 None hypertension Pertinent Findings dyspnea 02/21/2016 due to the chemo- has been improving hypertension Pertinent Findings decreased energy 02/21/2016 due to the chemo- is now increasing hypertension Pertinent Findings Denies edema 02/21/2016 None hypertension Pertinent Findings Denies nausea 02/21/2016 None hypertension Pertinent Findings muscle weakness 02/21/2016 due to the chemo- has been improving hyperlipidemia Onset and Resolution ongoing 02/21/2016 None hyperlipidemia Onset of Symptom during adulthood 02/21/2016 None hyperlipidemia Alleviating Factors medication 02/21/2016 None hyperlipidemia Exacerbating Factors diet 02/21/2016 None skin lesion Quality acute 10/18/2015 None skin lesion Onset and Resolution sudden in onset 10/18/2015 None skin lesion Onset and Resolution improving _ days ago 10/18/2015 None skin lesion Location Right Knee 10/18/2015 None ~generic Quality acute 10/18/2015 None ~generic Onset and Resolution ongoing 10/18/2015 None hypertension Quality chronic 10/18/2015 None hypertension Onset and Resolution ongoing 10/18/2015 None hypertension Onset of Symptom during adulthood 10/18/2015 None hypertension Alleviating Factors medication 10/18/2015 None hypertension Exacerbating Factors stress 10/18/2015 None abdominal pain Location in the suprapubic area 05/02/2015 None abdominal pain Location in the RLQ 05/02/2015 None abdominal pain Quality aching 05/02/2015 None abdominal pain Quality acute 05/02/2015 None abdominal pain Onset and Resolution sudden in onset 05/02/2015 None abdominal pain Onset of Symptom 5 days ago 05/02/2015 None abdominal pain Limitation on Activities moderately limits activities 05/02/2015 None abdominal pain Frequency of Episodes decreasing 05/02/2015 None abdominal pain Significant Medical Conditions history of abdominal surgery 05/02/2015 hernia repair abdominal pain Location in the LLQ 05/02/2015 None Advance Directives No Advance Directive data Encounters Encounter Performer Location Codes Date ([id number]) 65984 EST. PATIENT, LEVEL III Diagnosis: Low back pain[ICD10: M54.5] Diagnosis: Muscle spasm of back[ICD10: M62.830] Leidy Husain MD, [facility] CPT-4: 89349 03/31/2018 ([id number]) 50299 EST. PATIENT, LEVEL III Diagnosis: Actinic keratosis[ICD10: L57.0] Diagnosis: Other hypertrophic disorders of the skin[ICD10: L91.8] Amanda Husain MD, [facility] CPT-4: 88734 11/26/2017 [id number]) 02205 EST. PATIENT, LEVEL IV Diagnosis: Essential (primary) hypertension[ICD10: I10] Diagnosis: Mild cognitive impairment, so stated[ICD10: G31.84] [facility] CPT-4: 73317 10/07/2017 ([id number] 57823 EST. PATIENT, LEVEL III Diagnosis: Pneumonia due to other streptococci[ICD10: J15.4] Diagnosis: Cough[ICD10: R05] Amanda Husain MD, [facility] CPT-4: 82333 09/22/2017 [id number] EST. PATIENT, LEVEL IV Diagnosis: Left lower quadrant pain[ICD10: R10.32] Diagnosis: Other fatigue[ICD10: R53.83] Gabrielle Husain MD, [facility] CPT-4 : 30691 05/08/2017 ([id number]) 28326 EST. PATIENT, LEVEL III Diagnosis: Essential (primary) hypertension[ICD10: I10] Amanda Husain MD, [facility] CPT-4: 70388 03/25/2017 ([id number]) 57888 EST. PATIENT, LEVEL III Diagnosis: Cough[ICD10: R05] Diagnosis: Allergic rhinitis due to pollen[ICD10: J30.1] Leidy Husain MD, [facility] CPT-4: 48616 01/21/2017 [id number] EST. PATIENT, LEVEL III Diagnosis: Other allergic rhinitis[ICD10: J30.89] Diagnosis: Cough[ICD10: R05] Gabrielle Husain MD, [facility] CPT-4: 58079 12/30/2016 ([id number]) 38960 EST. PATIENT, LEVEL III Diagnosis: Cough[ICD10: R05] Diagnosis: Pneumonia, unspecified organism[ICD10: J18.9] Leidy Husain MD, [facility] CPT-4: 98312 12/26/2016 ([id number]) 87033 EST. PATIENT, LEVEL III Diagnosis: Pneumonia due to other streptococci[ICD10: J15.4] Diagnosis: Cough[ICD10: R05] Amanda Husain MD, [facility] CPT-4: 80882 12/02/2016 ([id number]) 71963 EST. PATIENT, LEVEL III Diagnosis: Essential (primary) hypertension[ICD10: I10] Amanda Husain MD, [facility] CPT-4: 29403 11/21/2016 ([id number]) 11425 EST. PATIENT, LEVEL IV Diagnosis: Essential (primary) hypertension[ICD10: I10] Diagnosis: Mixed hyperlipidemia[ICD10: E78.2] Amanda Husain MD, [facility] CPT-4: 66367 10/23/2016 47646 EST. PATIENT, LEVEL IV Diagnosis: Other allergic rhinitis[ICD10: J30.89] Diagnosis: Cough[ICD10: R05] Gabrielle Husain MD, [facility] CPT-4: 55797 07/29/2016 ([id number]) Miscellaneous no charge Diagnosis: Pneumonia, unspecified organism[ICD10: J18.9] Gabrielle Husain MD [facility] CPT-4: 42702 06/27/2016 ([id number]) 18901 EST. PATIENT, LEVEL IV Diagnosis: Essential (primary) hypertension[ICD10: I10] Diagnosis: Pneumonia, unspecified organism[ICD10: J18.9] Diagnosis: Cough[ICD10: R05] Diagnosis: Mixed hyperlipidemia[ICD10: E78.2] Amanda Husain MD [facility] CPT-4: 85557 06/24/2016 ([id number]) 32457 EST. PATIENT, LEVEL IV Diagnosis: Mixed hyperlipidemia[ICD10: E78.2] Diagnosis: Essential (primary) hypertension[ICD10: I10] Diagnosis: Gastro-esophageal reflux disease without esophagitis[ICD10: K21.9] Amanda Husain MD [facility] CPT-4: 93961 02/21/2016 ([id number]) 99282 EST. PATIENT, LEVEL IV Diagnosis: Essential (primary) hypertension[ICD10: I10] Diagnosis: Mixed hyperlipidemia[ICD10: E78.2] Diagnosis: Chronic lymphocytic 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[ICD10: C91.10] Amanda Husain MD, [facility] CPT-4: 94338 10/18/2015 ([id number]) OFFICE VISIT, NEW - LEVEL 3 Diagnosis: Diverticulitis[ICD9: 562.11] Amanda Husain MD, [facility] CPT-4 : 26897 05/02/2015 Plan of Care Planned Activity Notes Codes Status Date Appointment: Lab Draw 04/08/2018 Patient Education: Patient Medication Summary Completed 04/08/2018 Visit Plan: Medicare Exam - today we discussed the patients past history, immunizations, preventative exams/evaluations - colonoscopy, fecal occult blood testing, routine labs for renal function, glucose, cholesterol, osteoporosis evaluations, cardiovascular testing and cancer screenings. We have also discussed mental health and the signs/symptoms of depression. The patient was advised of home safety evaluations and the need to make sure that as the aging process continues, we need to be aware of different ways to make the home a safer place to reside. The patient has also been counseled that exercise is necessary - and of utmost importance as we age to help decrease fall risk and to maintain independence in the home. Today we discussed the need for the patient to create paperwork for Advanced directives as well as for the patient to provide this office with a copy of her DOPA paperwork for health care surrogate. 04/03/2018 Patient Education: Patient Medication Summary Completed 04/03/2018 Visit Plan: Low back pain- recommend rest, tiger balm as directed and stretches. Discussed imaging vs physical therapy if symptoms persist. The patient is to call the office if the pain is worsening or does not improve. 03/31/2018 Appointment: Leidy Angulo WPtel: [phone] [id number] (15 min) Moderate 03/31/2018 Patient Education: Patient Medication Summary Completed 03/31/2018 Visit Plan: Wound Instructions - Pt was instructed to keep the wound clean, wash with antibacterial soap, use triple antibiotic ointment, call if redness, pustular drainage, or any other acute concerns. 11/26/2017 Appointment: [phone] [id number] [facility] 11/26/2017 Patient Education: Patient Medication Summary Completed 11/26/2017 Visit Plan: Medicare Exam - today we discussed the patients past history, immunizations, preventative exams/evaluations - colonoscopy, fecal occult blood testing, routine labs for renal function, glucose, cholesterol, osteoporosis evaluations, cardiovascular testing and cancer screenings. We have also discussed mental health and the signs/symptoms of depression. The patient was advised of home safety evaluations and the need to make sure that as the aging process continues, we need to be aware of different ways to make the home a safer place to reside. The patient has also been counseled that exercise is necessary - and of utmost importance as we age to help decrease fall risk and to maintain independece in the home. Today we discussed the need for the patient to create paperwork for Advanced directives as well as for the patient to provide this office with a copy of her DOPA paperwork for health care surrogate. 10/31/2017 Appointment: [phone] [phone] [facility] - Annual Wellness Visit 10/31/2017 Patient Education: Patient Medication Summary Completed 10/31/2017 Visit Plan: Hypertension - well controlled - continue with current medications, continue with no added salt diet. Pt has been encouraged to exercise daily. The pt has been advised to call the office if there are any acute concerns about change in blood pressure readings at home. Mild Cognitive Impairment - discussed with pt the diagnosis, pt is not yet in category of dementia, but is in danger of approaching that level of memory loss. 10/07/2017 Appointment: Amanda Hus[facility]el[facility] [phone] [id number] (30 min) Complex 10/07/2017 Patient Education: Patient Medication Summary Completed 10/07/2017 Patient Education: Obesity Completed 10/07/2017 Patient Education: Hypertension Completed 10/07/2017 Visit Plan: Pneumonia - Pt has been diagnosed with pneumonia by physical exam. Antibiotics have been ordered. The pt is aware of the diagnosis and the need for acute treatment of this illness. 09/22/2017 Appointment: [facility]el[facility] [phone] [id number] (15 min) Moderate 09/22/2017 Patient Education: Patient Medication Summary Completed 09/22/2017 Patient Education: Obesity Completed 09/22/2017 Visit Plan: Diverticulitis - rx for antibiotic sent to pt' s pharmacy - pt advised to avoid seeds, nuts, popcorn, or any other food which has been proven to upset the pt's stomach. Fatigue, history of CLL - will check labs, pt has a follow up appointment with his oncologist on 05/27. Pt is to notify clinic if symptoms do not improve, if they worsen, or with any questions or concerns. 05/08/2017 Appointment: [facility] Corona [facility] [phone] [id number] ([facility] min) Complex 05/08/2017 Patient Education: Patient Medication Summary Completed 05/08/2017 Patient Education: Obesity Completed 05/08/2017 Visit Plan: Hypertension - uncontrolled - the patient's medications have been modified as documented in the visit note. The patient has been counseled to cut back on salt in diet for a no added salt diet, low fat diet, start an exercise program with low weight bearing exercises and higher aerobic activity for heart health. The patient is to check blood pressure readings as an outpatient and either fax, call, or email the readings to the office next week for practitioner to review. The pt is to call for acute concerns. Increase the ramipril to 10mg daily. 03/25/2017 Appointment: Amanda Husain WPtel: [phone] [facility] (15 min) Moderate 03/25/2017 Patient Education: Patient Medication Summary Completed 03/25/2017 Appointment: Leidy Angulo WPtel: [phone] (15 min) Moderate 01/31/2017 Visit Plan: URI/Allergies - Pt advised to increase fluids, vitamin C. Discussed natural and expected course of this diagnosis and need to alert me if symptoms do not follow expected course, or if any worse. RX sent to patient's pharmacy. 01/21/2017 Appointment: Leidy Angulo WPtel: [phone] (15 min) Moderate 01/21/2017 Patient Education: Patient Medication Summary Completed 01/21/2017 Visit Plan: URI - Pt advised to increase fluids, vitamin C. Discussed natural and expected course of this diagnosis and need to alert me if symptoms do not follow expected course, or if any worse. RX sent to patient' s pharmacy. Allergies - chronic - recommended pt to use allergy medication as prescribed. Pt has been counseled as to the appropriate use of the medication. Pt to call if allergy symptoms are not controlled with the medication. 12/30/2016 Appointment: Leidy Angulo WPtel: [phone] [phone] [place] (15 min) Moderate 12/30/2016 Appointment: Gabrielle Corona WPtel: [facility] [place] (30 min) Complex 12/30/2016 Patient Education: Patient Medication Summary Completed 12/30/2016 Visit Plan: Pneumonia - Pt has been diagnosed with pneumonia by physical exam. Antibiotics ordered, pt advised on starting a probiotic, and to have his inr checked on Friday. The pt is aware of the diagnosis and the need for acute treatment of this illness. Discussed with Dr Husain-hold amiodarone while on the levaquin. 12/26/2016 Appointment: Leidy Angulo WPtel: [phone] [phone] [place] (15 min) Moderate 12/26/2016 Patient Education: Patient Medication Summary Completed 12/26/2016 Visit Plan: Pneumonia - Pt has been diagnosed with pneumonia by physical exam. Antibiotics ordered, pt advised on starting a probiotic, and to have his inr checked on of this week. The pt is aware of the diagnosis and the need for acute treatment of this illness. 12/02/2016 Patient Education: Patient Medication Summary Completed 12/02/2016 Patient Education: Obesity Completed 12/02/2016 Visit Plan: Hypertension - well controlled - continue with current medications, continue with no added salt diet. Pt has been encouraged to exercise daily. The pt has been advised to call the office if there are any acute concerns about change in blood pressure readings at home. 11/21/2016 Appointment: [facility]el[phone] [place] (15 min) Moderate 11/21/2016 Patient Education: Patient Medication Summary Completed 11/21/2016 Patient Education: Obesity Completed 11/21/2016 Patient Education: Hypertension Completed 11/21/2016 Visit Plan: Medicare Exam - today we discussed the patients past history, immunizations, preventative exams/evaluations - colonoscopy, fecal occult blood testing, routine labs for renal function, glucose, cholesterol, osteoporosis evaluations, cardiovascular testing and cancer screenings. We have also discussed mental health and the signs/symptoms of depression. The patient was advised of home safety evaluations and the need to make sure that as the aging process continues, we need to be aware of different ways to make the home a safer place to reside. The patient has also been counseled that exercise is necessary - and of utmost importance as we age to help decrease fall risk and to maintain independece in the home. Today we discussed the need for the patient to create paperwork for Advanced directives as well as for the patient to provide this office with a copy of her DOPA paperwork for health care surrogate. 10/25/2016 Appointment: Leidy Angulo WPtel: [phone] [phone] [facility] Wellness Visit 10/25/2016 Patient Education: Patient Medication Summary Completed 10/25/2016 Visit Plan: Hypertension - well controlled - continue with current medications, continue with no added salt diet. Pt has been encouraged to exercise daily. The pt has been advised to call the office if there are any acute concerns about change in blood pressure readings at home. Hyperlipidemia - pt has been counseled about appropriate diet, exercise, and need for low fat food choices. I have discussed the need for the patient to take medications as prescribed. If the patient has negative side effects from the medication, they are to CALL the office and not abruptly discontinue the medication without discussion with a practitioner in the office. We will check labs in 3-6 months for follow up on the patient's chronic medical problem and to assure normal liver response to medications. 10/23/2016 Appointment: Amanda Husain WPtel: [phone] [facility] (15 min) Moderate 10/23/2016 Patient Education: Patient Medication Summary Completed 10/23/2016 Patient Education: Hypertension Completed 10/23/2016 Visit Plan: Allergies - chronic - recommended pt to use allergy medication as prescribed. Pt has been counseled as to the appropriate use of the medication. Pt to call if allergy symptoms are not controlled with the medication. If using nasal spray, instructions as follows: Nasal spray- use twice daily, one spray per nostril twice daily, after 30 minutes, rinse out nose with saline spray.. Use opposite hand per nostril to spray in the nasal steroid allergy spray. Ongoing dry, nonproductive cough - will stop JEFF inhibitor - pt is to monitor blood pressures and HR and notify clinic with any concerns. 07/29/2016 Appointment: Gabrielle Corona WPtel: [phone] [facility] (15 min) Moderate 07/29/2016 Patient Education: Patient Medication Summary Completed 07/29/2016 Patient Education: Obesity Completed 07/29/2016 Appointment: Nurse Visit 06/27/2016 Patient Education: Patient Medication Summary Completed 06/27/2016 Visit Plan: Hypertension - well controlled - continue with current medications, continue with no added salt diet. Pt has been encouraged to exercise daily. The pt has been advised to call the office if there are any acute concerns about change in blood pressure readings at home. Pneumonia - Pt has been diagnosed with pneumonia by physical exam. A chest xray has been ordered as have antibiotics. The pt is aware of the diagnosis and the need for acute treatment of this illness. Rx for antibiotic sent to pharmacy Hyperlipidemia - pt has been counseled about appropriate diet, exercise, and need for low fat food choices. I have discussed the need for the patient to take medications as prescribed. If the patient has negative side effects from the medication, they are to CALL the office and not abruptly discontinue the medication without discussion with a practitioner in the office. We will check labs in 3-6 months for follow up on the patient's chronic medical problem and to assure normal liver response to medications. 06/24/2016 Visit Plan: Hypertension - well controlled - continue with current medications, continue with no added salt diet. Pt has been encouraged to exercise daily. The pt has been advised to call the office if there are any acute concerns about change in blood pressure readings at home. Pneumonia - Pt has been diagnosed with pneumonia by physical exam. A chest xray has been ordered as have antibiotics. The pt is aware of the diagnosis and the need for acute treatment of this illness. Rx for antibiotic sent to pharmacy Hyperlipidemia - pt has been counseled about appropriate diet, exercise, and need for low fat food choices. I have discussed the need for the patient to take medications as prescribed. If the patient has negative side effects from the medication, they are to CALL the office and not abruptly discontinue the medication without discussion with a practitioner in the office. We will check labs in 3-6 months for follow up on the patient's chronic medical problem and to assure normal liver response to medications. 06/24/2016 Appointment: Amanda Husain WPtel: [address] [place], [place] [id number] (15 min) Moderate 06/24/2016 Patient Education: Patient Medication Summary Completed 06/24/2016 Visit Plan: Hypertension - well controlled - continue with current medications, continue with no added salt diet. Pt has been encouraged to exercise daily. The pt has been advised to call the office if there are any acute concerns about change in blood pressure readings at home. Hyperlipidemia - pt has been counseled about appropriate diet, exercise, and need for low fat food choices. I have discussed the need for the patient to take medications as prescribed. If the patient has negative side effects from the medication, they are to CALL the office and not abruptly discontinue the medication without discussion with a practitioner in the office. We will check labs in 3-6 months for follow up on the patient's chronic medical problem and to assure normal liver response to medications. Esophageal Reflux - the patient has been counseled against excessive intake of caffeine, spicy foods, peppermint, and cinnamon - all of which can exacerbate esophageal reflux. The patient is to take medications as prescribed and call the office if the symptoms are not improving. 02/21/2016 Appointment: Amanda Husain WPtel: [address] [place], [place] [id number] (15 min) Moderate 02/21/2016 Patient Education: Patient Medication Summary Completed 02/21/2016 Patient Education: Obesity Completed 02/21/2016 Patient Education: Hypertension Completed 02/21/2016 Visit Plan: Hypertension - well controlled - continue with current medications, continue with no added salt diet. Pt has been encouraged to exercise daily. The pt has been advised to call the office if there are any acute concerns about change in blood pressure readings at home. Hyperlipidemia - pt has been counseled about appropriate diet, exercise, and need for low fat food choices. I have discussed the need for the patient to take medications as prescribed. If the patient has negative side effects from the medication, they are to CALL the office and not abruptly discontinue the medication without discussion with a practitioner in the office. We will check labs in 3-6 months for follow up on the patient's chronic medical problem and to assure normal liver response to medications. CLL - pt receiving treatment per oncology - per his report - he is tolerating treatments well. 10/18/2015 Patient Education: Patient Medication Summary Completed 10/18/2015 Patient Education: Hypertension Completed 10/18/2015 Visit Plan: Diverticulitis - rx for antibiotic sent to pt' s pharmacy - pt advised to avoid seeds, nuts, popcorn, or any other food which has been proven to upset the pt's stomach. If pain worsens pt is to go to the ER. Check labs today. Will check cardiac enzymes as well. Come back Friday to recheck PT/INR 05/02/2015 Appointment: (S) New Patient 05/02/2015 Patient Education: Patient Medication Summary Completed 05/02/2015 Care Plan: COMPLETE CBC AUTOMATED LOINC : 61035-0 Ordered 05/02/2015 Care Plan: ASSAY OF TROPONIN QUANT Ordered 05/02/2015 Care Plan: ASSAY OF CK (CPK) Ordered 05/02/2015 Instructions Comment please go home and confirm that the metoprolol is TARTATE - - if so, we will need to change you to twice daily dosing on that medication - we could to 1/2 of a pill twice daily - but the TARTATE is only a 12 hour medication. . Hypertension - well controlled - continue with current medications, continue with no added salt diet. Pt has been encouraged to exercise daily. The pt has been advised to call the office if there are any acute concerns about change in blood pressure readings at home. Hyperlipidemia - pt has been counseled about appropriate diet, exercise, and need for low fat food choices. I have discussed the need for the patient to take medications as prescribed. If the patient has negative side effects from the medication, they are to CALL the office and not abruptly discontinue the medication without discussion with a practitioner in the office. We will check labs in 3-6 months for follow up on the patient's chronic medical problem and to assure normal liver response to medications. CLL - pt receiving treatment per oncology - per his report - he is tolerating treatments well. . Diverticulitis - rx for antibiotic sent to pt's pharmacy - pt advised to avoid seeds, nuts, popcorn, or any other food which has been proven to upset the pt's stomach. If pain worsens pt is to go to the ER. Check labs today. Will check cardiac enzymes as well. Come back Friday to recheck PT/INR check INR today and - come by office on for dr to listen to your lungs an antibiotic was sent to your pharmacy - first dose to be taken tonight start on a probiotic twice daily x 7 days while taking the antibiotic - this will help prevent diarrhea on the antibiotic . Hypertension - well controlled - continue with current medications, continue with no added salt diet. Pt has been encouraged to exercise daily. The pt has been advised to call the office if there are any acute concerns about change in blood pressure readings at home. Pneumonia - Pt has been diagnosed with pneumonia by physical exam. A chest xray has been ordered as have antibiotics. The pt is aware of the diagnosis and the need for acute treatment of this illness. Rx for antibiotic sent to pharmacy Hyperlipidemia - pt has been counseled about appropriate diet, exercise, and need for low fat food choices. I have discussed the need for the patient to take medications as prescribed. If the patient has negative side effects from the medication, they are to CALL the office and not abruptly discontinue the medication without discussion with a practitioner in the office. We will check labs in 3-6 months for follow up on the patient's chronic medical problem and to assure normal liver response to medications. check INR today and - come by office on for dr to listen to your lungs an antibiotic was sent to your pharmacy - first dose to be taken tonight start on a probiotic twice daily x 7 days while taking the antibiotic - this will help prevent diarrhea on the antibiotic . Hypertension - well controlled - continue with current medications, continue with no added salt diet. Pt has been encouraged to exercise daily. The pt has been advised to call the office if there are any acute concerns about change in blood pressure readings at home. Pneumonia - Pt has been diagnosed with pneumonia by physical exam. A chest xray has been ordered as have antibiotics. The pt is aware of the diagnosis and the need for acute treatment of this illness. Rx for antibiotic sent to pharmacy Hyperlipidemia - pt has been counseled about appropriate diet, exercise, and need for low fat food choices. I have discussed the need for the patient to take medications as prescribed. If the patient has negative side effects from the medication, they are to CALL the office and not abruptly discontinue the medication without discussion with a practitioner in the office. We will check labs in 3-6 months for follow up on the patient's chronic medical problem and to assure normal liver response to medications. Increase the ramipril to 10mg daily. . Hypertension - uncontrolled - the patient's medications have been modified as documented in the visit note. The patient has been counseled to cut back on salt in diet for a no added salt diet, low fat diet, start an exercise program with low weight bearing exercises and higher aerobic activity for heart health. The patient is to check blood pressure readings as an outpatient and either fax , call, or email the readings to the office next week for practitioner to review. The pt is to call for acute concerns. Increase the ramipril to 10mg daily. kenalog injection zyrtec 10mg daily call if symptoms do not resolve or if any worse . URI/Allergies - Pt advised to increase fluids, vitamin C. Discussed natural and expected course of this diagnosis and need to alert me if symptoms do not follow expected course, or if any worse. RX sent to patient's pharmacy. . Hypertension - well controlled - continue with current medications, continue with no added salt diet. Pt has been encouraged to exercise daily. The pt has been advised to call the office if there are any acute concerns about change in blood pressure readings at home. Mild Cognitive Impairment - discussed with pt the diagnosis, pt is not yet in category of dementia, but is in danger of approaching that level of memory loss. Finish levaquin and prednisone - let me know if it does not improve and we will change your antibiotic. URI - Pt advised to increase fluids, vitamin C. Discussed natural and expected course of this diagnosis and need to alert me if symptoms do not follow expected course, or if any worse. RX sent to patient's pharmacy. Allergies - chronic - recommended pt to use allergy medication as prescribed. Pt has been counseled as to the appropriate use of the medication. Pt to call if allergy symptoms are not controlled with the medication. [employer]) or [employer] - take three times daily x 7 days get a PT/INR check on of this week . Pneumonia - Pt has been diagnosed with pneumonia by physical exam. Antibiotics ordered, pt advised on starting a probiotic, and to have his inr checked on of this week. The pt is aware of the diagnosis and the need for acute treatment of this illness. . Medicare Exam - today we discussed the patients past history, immunizations, preventative exams/evaluations - colonoscopy, fecal occult blood testing, routine labs for renal function, glucose, cholesterol, osteoporosis evaluations, cardiovascular testing and cancer screenings. We have also discussed mental health and the signs/symptoms of depression. The patient was advised of home safety evaluations and the need to make sure that as the aging process continues, we need to be aware of different ways to make the home a safer place to reside. The patient has also been counseled that exercise is necessary - and of utmost importance as we age to help decrease fall risk and to maintain independece in the home. Today we discussed the need for the patient to create paperwork for Advanced directives as well as for the patient to provide this office with a copy of her DOPA paperwork for health care surrogate. . Hypertension - well controlled - continue with current medications, continue with no added salt diet. Pt has been encouraged to exercise daily. The pt has been advised to call the office if there are any acute concerns about change in blood pressure readings at home. Hyperlipidemia - pt has been counseled about appropriate diet, exercise, and need for low fat food choices. I have discussed the need for the patient to take medications as prescribed. If the patient has negative side effects from the medication, they are to CALL the office and not abruptly discontinue the medication without discussion with a practitioner in the office. We will check labs in 3-6 months for follow up on the patient's chronic medical problem and to assure normal liver response to medications. Esophageal Reflux - the patient has been counseled against excessive intake of caffeine, spicy foods, peppermint, and cinnamon - all of which can exacerbate esophageal reflux. The patient is to take medications as prescribed and call the office if the symptoms are not improving. change metoprolol to 25mg twice daily. . Hypertension - well controlled - continue with current medications, continue with no added salt diet. Pt has been encouraged to exercise daily. The pt has been advised to call the office if there are any acute concerns about change in blood pressure readings at home. Hyperlipidemia - pt has been counseled about appropriate diet, exercise, and need for low fat food choices. I have discussed the need for the patient to take medications as prescribed. If the patient has negative side effects from the medication, they are to CALL the office and not abruptly discontinue the medication without discussion with a practitioner in the office. We will check labs in 3-6 months for follow up on the patient's chronic medical problem and to assure normal liver response to medications. . Pneumonia - Pt has been diagnosed with pneumonia by physical exam. Antibiotics have been ordered. The pt is aware of the diagnosis and the need for acute treatment of this illness. We will call to see if you need a prevnar 13 vaccine . Medicare Exam - today we discussed the patients past history, immunizations, preventative exams/evaluations - colonoscopy, fecal occult blood testing, routine labs for renal function, glucose, cholesterol, osteoporosis evaluations , cardiovascular testing and cancer screenings. We have also discussed mental health and the signs/symptoms of depression. The patient was advised of home safety evaluations and the need to make sure that as the aging process continues , we need to be aware of different ways to make the home a safer place to reside. The patient has also been counseled that exercise is necessary - and of utmost importance as we age to help decrease fall risk and to maintain independence in the home. Today we discussed the need for the patient to create paperwork for Advanced directives as well as for the patient to provide this office with a copy of her DOPA paperwork for health care surrogate. Follow up appointment with Dr. Cantu on 05/27 at 9AM. They will set you up with someone new at that time. . Diverticulitis - rx for antibiotic sent to pt's pharmacy - pt advised to avoid seeds, nuts, popcorn, or any other food which has been proven to upset the pt's stomach. Fatigue, history of CLL - will check labs, pt has a follow up appointment with his oncologist on 05/27. Pt is to notify clinic if symptoms do not improve, if they worsen, or with any questions or concerns. . Medicare Exam - today we discussed the patients past history, immunizations, preventative exams/evaluations - colonoscopy, fecal occult blood testing, routine labs for renal function, glucose, cholesterol, osteoporosis evaluations, cardiovascular testing and cancer screenings. We have also discussed mental health and the signs/symptoms of depression. The patient was advised of home safety evaluations and the need to make sure that as the aging process continues, we need to be aware of different ways to make the home a safer place to reside. The patient has also been counseled that exercise is necessary - and of utmost importance as we age to help decrease fall risk and to maintain independece in the home. Today we discussed the need for the patient to create paperwork for Advanced directives as well as for the patient to provide this office with a copy of her DOPA paperwork for health care surrogate. HOLD AMIODARONE X 7 DAYS LEVAQUIN 500MG DAILY X 7 DAYS PREDNISONE 20MG TWICE DAILY X 5 DAYS CHECK PT/INR ON FRIDAY . Pneumonia - Pt has been diagnosed with pneumonia by physical exam. Antibiotics ordered, pt advised on starting a probiotic, and to have his inr checked on Friday. The pt is aware of the diagnosis and the need for acute treatment of this illness. Discussed with Dr Husain-hold amiodarone while on the levaquin. . Low back pain- recommend rest, tiger balm as directed and stretches. Discussed imaging vs physical therapy if symptoms persist. The patient is to call the office if the pain is worsening or does not improve. . Wound Instructions - Pt was instructed to keep the wound clean, wash with antibacterial soap, use triple antibiotic ointment, call if redness, pustular drainage, or any other acute concerns. . Hypertension - well controlled - continue with current medications, continue with no added salt diet. Pt has been encouraged to exercise daily. The pt has been advised to call the office if there are any acute concerns about change in blood pressure readings at home. zyrtec - daily for allergies If in a few days still coughing add a flonase nasal spray 1 spray each nostril twice a day stop Ramipril - it can cause a dry cough - check blood pressure and heart rate three times a day for the next few days - write them down, let me know with any concerns. . Allergies - chronic - recommended pt to use allergy medication as prescribed. Pt has been counseled as to the appropriate use of the medication. Pt to call if allergy symptoms are not controlled with the medication. If using nasal spray, instructions as follows: Nasal spray- use twice daily, one spray per nostril twice daily, after 30 minutes, rinse out nose with saline spray.. Use opposite hand per nostril to spray in the nasal steroid allergy spray. Ongoing dry, nonproductive cough - will stop JEFF inhibitor - pt is to monitor blood pressures and HR and notify clinic with any concerns.
[2018-11-01] MEDS ORDERED: TICAGRELOR 90 MG TABLET (BRILINTA) PO ONE ×2 (21:42→22:00)
[2018-11-01] MEDS: NITROGLYCERIN 0.4 MG SL TABS BTL 25'S SL PRN (21:42)
--- OUTSIDE RECORDS SUMMARY | 2018-11-01 21:43 | XMS REPORT | CCD ---
Author Author Amanda Celestin Organization Amanda Husain MD, [facility] Address [address] [place] [address] Phone Care Team Providers Care Associate Professor Of Art History Name Role Phone PP Unavailable CCM Unavailable Summary Purpose Interface Exchange Insurance Providers Payer name Policy type / Coverage type Covered republican ID Effective Begin Date Effective End Date WPS Medicare Part B [id number] 2017 Unknown [employer] [id number] Unknown Family history Brother Diagnosis Age At [...] Unknown Retired 05/02/[address]: 6786984 Former smoker Quit in 1966 05/02/2015 Number of years using tobacco Unknown - 05/02/2015 Allergies, Adverse Reactions, Alerts Allergies, Adverse Reactions, Alerts data not found Past Medical History Illness Codes Condition Status Onset Date Resolved Date Actinic keratosis ICD- 9: 702.0 ICD-10: L57.0 Active 11/26/2017 Unknown Other hypertrophic disorders of the skin ICD-9: 701.9 ICD-10: L91.8 Active 11/26/2017 Unknown Encounter for general adult medical examination with abnormal findings ICD-9: V70.0 ICD-10: Z00.01 Active 10/31/2017 Unknown Essential (primary) hypertension ICD-9: 401.9 ICD-10: [...] Problems Condition Codes Effective Dates Condition Status Actinic keratosis ICD- 9: 702.0 ICD-10: L57.0 11/26/2017 Active Other hypertrophic disorders of the skin ICD-9: 701.9 ICD-10: L91.8 11/26/2017 Active Encounter for general adult medical examination with abnormal findings ICD-9: V70.0 ICD-10: Z00.01 10/31/2017 Active Essential (primary) hypertension ICD-9: 401.9 ICD-10: [...] Instructions metoprolol tartrate 25 mg tablet RxNorm: 238043 TAKE ONE TABLET BY MOUTH TWICE DAILY 10/27/2017 No Stop Date Active azithromycin 250 mg tablet RxNorm: 202504 1 Tablet(s) PO UD 2 tabs on day #1, then 1 pill daily x 4 days 09/22/201707/2018 Inactive omeprazole 20 mg capsule,delayed release RxNorm: 898345 TAKE ONE CAPSULE BY MOUTH ONCE DAILY 06/16/2017 12/12/2017 Active metronidazole 500 mg tablet RxNorm: 414033 1 Tablet(s) PO TID 05/08/2017 05/14/2017 Inactive ramipril 10 mg capsule RxNorm: 801177 1 Capsule(s) PO daily 07/201703/19/2018 Active Kenalog 40 mg/mL suspension for injection RxNorm: 9149253 Milliliter(s) Inj 01/21/2017 01/21/2017 Inactive ceftriaxone 500 mg solution for injection RxNorm: 3773691 Inj 12/30/2016 12/30/2016 Inactive Phenergan with Codeine Syrup RxNorm: 5-10 Milliliter(s) PO Q6 PRN 12/26/2016 No Stop Date Active Levaquin 500 mg tablet RxNorm: 552017 1 Tablet(s) PO daily 07/201701/01/2017 Inactive Tessalon Perles 100 mg capsule RxNorm: 923627 1 Capsule(s) PO TID as needed 12/26/2016 01/04/2017 Inactive prednisone 20 mg tablet RxNorm: 977627 1 Tablet(s) PO BID 12/2612/30/2016 Inactive omeprazole 20 mg capsule,delayed release RxNorm: 669105 TAKE ONE CAPSULE BY MOUTH ONCE DAILY 12/16/2016 06/13/2017 Inactive cefdinir 300 mg capsule RxNorm: 825354 1 Capsule(s) PO BID 12/08/2016 Inactive azithromycin 250 mg tablet RxNorm: 685878 Tablet(s) 2 tabs on day #1, then one tab PO daily x 4 more days 12/02/201606/2017 Inactive metoprolol tartrate 25 mg tablet RxNorm: 417696 1 Tablet(s) PO BID 10/23/2016 10/17/2017 Inactive metoprolol tartrate 25 mg tablet RxNorm: 260273 1 Tablet(s) PO BID 10/23/2016 10/22/2016 Inactive ceftriaxone 500 mg solution for injection RxNorm: 7015983 Inj 06/24/2016 06/24/2016 Inactive cefdinir 300 mg capsule RxNorm: 245807 1 Capsule(s) PO BID 06/201606/30/2016 Inactive omeprazole 20 mg capsule,delayed release RxNorm: 946840 TAKE ONE CAPSULE BY MOUTH DAILY 06/07/2016 12/03/2016 Inactive omeprazole 20 mg capsule,delayed release RxNorm: 202283 TAKE ONE CAPSULE BY MOUTH DAILY 01/29/2016 05/27/2016 Inactive metoprolol tartrate 50 mg tablet RxNorm: 418820 Tablet(s) TAKE ONE TABLET BY MOUTH DAILY 10/11/2015 10/10/2015 Inactive metoprolol tartrate 50 mg tablet RxNorm: 969465 TAKE ONE TABLET BY MOUTH DAILY 10/11/2015 10/22/2016 Inactive omeprazole 20 mg capsule,delayed release RxNorm: 348809 TAKE ONE CAPSULE BY MOUTH DAILY 08/28/2015 01/24/2016 Inactive metoprolol tartrate 50 mg tablet RxNorm: 220292 TAKE ONE TABLET BY MOUTH DAILY 08/11/2015 10/09/2015 Inactive metoprolol tartrate 50 mg tablet RxNorm: 196650 1 Tablet(s) PO daily 06/14/2015 08/10/2015 Inactive omeprazole 20 mg capsule,delayed release RxNorm: 970494 1 Capsule(s) PO daily 05/29/2015 08/26/2015 Inactive omeprazole 20 mg capsule,delayed release RxNorm: 371576 1 Capsule(s) PO daily 05/29/2015 05/28/2015 Inactive metronidazole 500 mg tablet RxNorm: 825974 1 Tablet(s) PO TID 05/02/2015 05/08/2015 Inactive finasteride 5 mg tablet RxNorm: 220359 1 Tablet(s) PO daily No Start Date Active warfarin 5 mg tablet RxNorm: 837724 1 Tablet(s) PO daily No Start Date Active Aspirin Childrens 81 mg chewable tablet RxNorm: 256343 1 Tablet(s) PO daily No Start Date Active amiodarone 200 mg tablet RxNorm: 337040 1 Tablet(s) PO daily No Start Date Active vitamin E (dl, acetate) 1,000 unit capsule RxNorm: 451387 1 Capsule(s) PO daily No Start Date Active Trilipix 135 mg capsule,delayed release RxNorm: 436505 1 Capsule(s) PO daily No Start Date Active atorvastatin 80 mg tablet RxNorm: 842016 1 Tablet(s) PO daily No Start Date Active Fish Oil 120 mg-180 mg capsule RxNorm: 000234 1 Capsule(s) PO BID No Start Date 10/30/2017 Inactive metoprolol tartrate 50 mg tablet RxNorm: 815206 1 Tablet(s) PO daily No Start Date 06/13/2015 Inactive Zetia 10 mg tablet RxNorm: 682887 1 Tablet(s) PO daily No Start Date 10/17/2015 Inactive ramipril 5 mg capsule RxNorm: 329672 1 Capsule(s) PO daily No Start Date 03/24/2017 Inactive Tessalon Perles 100 mg capsule RxNorm: 659570 1 Capsule(s) PO TID as needed No Start Date 12/25/2016 Inactive omeprazole 20 mg capsule,delayed release RxNorm: 224295 1 Capsule(s) PO daily No Start Date 05/28/2015 Inactive Centrum Silver tablet RxNorm: 1 Tablet(s) PO daily No Start Date 10/30/2017 Inactive Medication Administered Medication Codes Instructions Start Date Status Kenalog 40 mg/mL suspension for injection RxNorm: 0182395 Milliliter 01/21/2017 No longer Active ceftriaxone 500 mg solution for injection RxNorm: 4801220 12/30/2016 No longer Active ceftriaxone 500 mg solution for injection RxNorm: 2798756 06/24/2016 No longer Active Immunizations Vaccine Codes Date Status Influenza CVX: 141 09/11/2015 completed Pneumococcal (Adult) CVX: 33 05/02/2014 completed Assessments Condition Codes Effective Dates Other hypertrophic disorders of the skin ICD-10: L91.8 ICD-9: 701.9 11/26/2017 Actinic keratosis ICD-10: L57.0 ICD-9: 702.0 11/26/2017 Encounter for general adult medical examination with abnormal findings ICD-10: Z00.01 ICD-9: V70.0 10/31/2017 Mild cognitive impairment, so stated ICD-10: G31.84 [...] Visit Reason For Visit Effective Dates Notes acrochordon (skin tags) 11/26/2017 Annual Medicare Wellness [...] Code Item Item Code Result Date Pt Wgf1294 PT 23.8 seconds 12/04/2017 Pt Agk9067 INR 2.1 12/04/2017 Pt Kdx3911 Low Intensity - 1.5-2.0 12/04/2017 Pt Ncn2258 Mod intensity - 2.0-3.0 12/04/2017 Pt Syt5289 Hi intensity - 3.0-4.0 12/04/2017 Pt Hbu7423 PT 32.3 seconds 11/12/2017 Pt Gdm1266 INR 3.1 11/12/2017 Pt Ixd3542 Low Intensity - 1.5-2.0 11/12/2017 Pt Acs8673 Mod intensity - 2.0-3.0 11/12/2017 Pt Jxk3729 Hi intensity - 3.0-4.0 11/12/2017 Renal Hlj397 NA 142 mEq/L 10/20/2017 Renal Obh000 K 4.5 mEq/L 10/20/2017 Renal Ets133 CL 107 mEq/L 10/20/2017 Renal Yky095 CO2 28.0 mEq/L 10/20/2017 Renal Rbf775 ANION GAP 12 10/20/2017 Renal Uhu603 Osmo 288 mOsmo 10/20/2017 Renal Opj266 GLUCOSE 96 mg/dL 10/20/2017 Renal Bwl378 BUN 27 mg/dL 10/20/2017 Renal Pjv962 Creat 1.6 mg/dL 10/20/2017 Renal Pxz493 eGFR 46 ml/min/1.73m2 10/20/2017 Renal Imb324 B/C Ratio 17.2 Ratio 10/20/2017 Renal Sgc533 CALCIUM 9.4 mg/dL 10/20/2017 Renal Dbn372 PHOS 3.0 mg/dL 10/20/2017 Renal Ejh865 ALBUMIN 4.2 g/dL 10/20/2017 Pt Bno4968 PT 16.6 seconds 10/20/2017 Pt Clh5572 INR 1.4 10/20/2017 Pt Gjp2983 Low Intensity - 1.5-2.0 10/20/2017 Pt Gnz5527 Mod intensity - 2.0-3.0 10/20/2017 Pt Woq6772 Hi intensity - 3.0-4.0 10/20/2017 Urinalysis Ord28 [...] 48 hours from collection if refrigerated) 10/20/2017 Pt Wuo8259 PT 31.2 seconds 10/17/2017 Pt Xcm9579 INR 3.0 10/17/2017 Pt Gii9776 Low Intensity - 1.5-2.0 10/17/2017 Pt Uet0240 Mod intensity - 2.0-3.0 10/17/2017 Pt Xqj4547 Hi intensity - 3.0-4.0 10/17/2017 Comp Metabolic Ejp616 NA 139 mEq/L 05/08/2017 Comp Metabolic Mdr695 K 4.1 mEq/L 05/08/2017 Comp Metabolic Xtt382 CL 103 mEq/L 05/08/2017 Comp Metabolic Gws732 CO2 28.0 mEq/L 05/08/2017 Comp Metabolic Xfs431 ANION GAP 12 05/08/2017 Comp Metabolic Ssy328 GLUCOSE 75 mg/dL 05/08/2017 Comp Metabolic Qua281 Creat 1.3 mg/dL 05/08/2017 Comp Metabolic Ozt508 eGFR 55 ml/min/1.73m2 05/08/2017 Comp Metabolic Tlv542 BUN 20 mg/dL 05/08/2017 Comp Metabolic Qqk212 B/C Ratio 14.9 Ratio 05/08/2017 Comp Metabolic Qzp775 CALCIUM 8.8 mg/dL 05/08/2017 Comp Metabolic Ynt135 ALK PHOS 51 U/L 05/08/2017 Comp Metabolic Mgm095 AST(SGOT) 30 U/L 05/08/2017 Comp Metabolic Yfw212 ALT(SGPT) 31 U/L 05/08/2017 Comp Metabolic Taa573 BILI T 0.9 mg/dL 05/08/2017 Comp Metabolic Qbu002 ALBUMIN 4.0 g/dL 05/08/2017 Comp Metabolic Iaf187 TPRO 6.5 g/dL 05/08/2017 Comp Metabolic Ncr267 GLOB 2.6 g/dL 05/08/2017 Comp Metabolic Vkz455 A/G Ratio 1.5 Ratio 05/08/2017 Comp Metabolic Nhu732 Osmo 279 mOsmo 05/08/2017 Cbc With Differential Ord2 WBC 8.45 K/ul 05/08/2017 Cbc With Differential Ord2 RBC 4.63 M/ul 05/08/2017 Cbc With Differential Ord2 HGB 14.6 g/dl 05/08/2017 Cbc With Differential Ord2 HCT 43.5 % 05/08/2017 Cbc With Differential Ord2 Neut% 68.4 % 05/08/2017 Cbc With Differential Ord2 MCV 94.0 fl 05/08/2017 Cbc With Differential Ord2 Lymph% 15.3 % 05/08/2017 Cbc With Differential Ord2 Rice% 13.5 % 05/08/2017 Cbc With Differential Ord2 MCH 31.5 pg 05/08/2017 Cbc With Differential Ord2 MCHC 33.6 pg 05/08/2017 Cbc With Differential Ord2 Eos% 2.6 % 05/08/2017 Cbc With Differential Ord2 Baso% 0.2 % 05/08/2017 Cbc With Differential Ord2 PLT 218 K/ul 05/08/2017 Cbc With Differential Ord2 Neut ABS# 5.78 K/ul 05/08/2017 Cbc With Differential Ord2 RDW 13.7 % 05/08/2017 Cbc With Differential Ord2 Lymph ABS# 1.29 K/ul 05/08/2017 Cbc With Differential Ord2 Rice ABS# 1.1 K/ul 05/08/2017 Cbc With Differential Ord2 Eos ABS# 0.2 K/ul 05/08/2017 Cbc With Differential Ord2 Baso ABS# 0.0 K/ul 05/08/2017 Pt Jqi2540 PT 22.7 seconds 11/22/2016 Pt Qfk7360 INR 2.1 11/22/2016 Pt Wmv7319 Low Intensity - 1.5-2.0 11/22/2016 Pt Bkh1532 Mod intensity - 2.0-3.0 11/22/2016 Pt Drw1776 Hi intensity - 3.0-4.0 11/22/2016 Pt Xbv1605 PT 24.4 seconds 10/25/2016 Pt Spi8993 INR 2.3 10/25/2016 Pt Obf0875 Low Intensity - 1.5-2.0 10/25/2016 Pt Pkv5745 Mod intensity - 2.0-3.0 10/25/2016 Pt Pbf8738 Hi intensity - 3.0-4.0 10/25/2016 Pt Srp2974 PT 23.5 seconds 09/04/2016 Pt Knd0297 INR 2.2 09/04/2016 Pt Zxc4994 Low Intensity - 1.5-2.0 09/04/2016 Pt Hsz5193 Mod intensity - 2.0-3.0 09/04/2016 Pt Xmp6703 Hi intensity - 3.0-4.0 09/04/2016 Pt Fvg8984 PT 26.1 seconds 07/09/2016 Pt INR 2.6 07/09/2016 Pt Unp7012 Low Intensity - 1.5-2.0 07/09/2016 Pt Xgz8705 Mod intensity - 2.0-3.0 07/09/2016 Pt Hpu8628 Hi intensity - 3.0-4.0 07/09/2016 Pt Pxk5262 PT 19.4 seconds 06/24/2016 Pt Snf2660 INR 1.7 06/24/2016 Pt Ofy4791 Low Intensity - 1.5-2.0 06/24/2016 Pt Mtu0435 Mod intensity - 2.0-3.0 06/24/2016 Pt Tln8495 Hi intensity - 3.0-4.0 06/24/2016 Pt Yog0097 PT 28.9 seconds 04/26/2016 Pt Viz7125 INR 2.9 04/26/2016 Pt Mdi0985 Low Intensity - 1.5-2.0 04/26/2016 Pt Tym7709 Mod intensity - 2.0-3.0 04/26/2016 Pt Hqj7475 Hi intensity - 3.0-4.0 04/26/2016 Lipid Ord30 CHOL 181 mg/dL 02/29/2016 Lipid Ord30 HDL 33.0 mg/dl 02/29/2016 Lipid Ord30 TRIG 248 mg/dL 02/29/2016 Lipid Ord30 LDL 98 mg/dL 02/29/2016 Lipid Ord30 C/HDL 5.5 Ratio 02/29/2016 Pt Xsw3107 PT 21.8 seconds 02/29/2016 Pt Bez8392 INR 2.0 02/29/2016 Pt Jpa7876 Low Intensity - 1.5-2.0 02/29/2016 Pt Jjq2041 Mod intensity - 2.0-3.0 02/29/2016 Pt Atf7086 Hi intensity - 3.0-4.0 02/29/2016 Tsh Ord6 hTSH II 1.21 uIU/mL 02/29/2016 Pt Ehs5331 PT 26.1 seconds 06/30/2015 Pt Wlg6458 INR 2.5 06/30/2015 Pt Xqc2349 Low Intensity - 1.5-2.0 06/30/2015 Pt Tkx5909 Mod intensity - 2.0-3.0 06/30/2015 Pt Lmb9351 Hi intensity - 3.0-4.0 06/30/2015 Comp Metabolic Sze043 NA 138 mEq/L 06/30/2015 Comp Metabolic Qut172 K 4.8 mEq/L 06/30/2015 Comp Metabolic Mye311 CL 107 mEq/L 06/30/2015 Comp Metabolic Ieh612 CO2 27.0 mEq/L 06/30/2015 Comp Metabolic Kgg090 ANION GAP 9 06/30/2015 Comp Metabolic Lbg306 GLUCOSE 98 mg/dL 06/30/2015 Comp Metabolic Ydn031 Creat 1.8 mg/dL 06/30/2015 Comp Metabolic Qbp525 eGFR 40 ml/min/1.73m2 06/30/2015 Comp Metabolic Uzo656 BUN 20 mg/dL 06/30/2015 Comp Metabolic Bqy680 B/C Ratio 11.1 Ratio 06/30/2015 Comp Metabolic Diu555 CALCIUM 9.1 mg/dL 06/30/2015 Comp Metabolic Ath090 ALK PHOS 39 U/L 06/30/2015 Comp Metabolic Yko927 AST(SGOT) 21 U/L 06/30/2015 Comp Metabolic Zno668 ALT(SGPT) 23 U/L 06/30/2015 Comp Metabolic Tga963 BILI T 0.5 mg/dL 06/30/2015 Comp Metabolic Zvh344 ALBUMIN 4.0 g/dL 06/30/2015 Comp Metabolic Pbb304 TPRO 6.6 g/dL 06/30/2015 Comp Metabolic Rrg752 GLOB 2.6 g/dL 06/30/2015 Comp Metabolic Rvi055 A/G Ratio 1.5 Ratio 06/30/2015 Comp Metabolic Usz156 Osmo 278 mOsmo 06/30/2015 Cbc With Differential Ord2 WBC 14.7 K/uL [...] With Differential Ord2 RDW 16.2 % 06/30/2015 Review of Systems System Result Effective Dates Constitutional No recent illness 2017 Dermatologic acrochordon [...] nourished 05/02/2015 None Procedures Procedure Codes Date PPPS, SUBSEQ VISIT CPT -4: G0439 10/31/2017 PRESCRIP TRANSMIT VIA ERX SY CPT-4: G8553 09/22/2017 THER/PROPH/DIAG INJ SC/IM CPT-4: 14434 01/21/2017 TRIAMCINOLONE ACET INJ NOS CPT-4: J3301 01/21/2017 THER/PROPH/DIAG INJ SC/IM CPT-4: 60507 12/30/2016 ROCEPHIN, PER 250 MG CPT-4: J0696 12/30/2016 PPPS, SUBSEQ VISIT CPT -4: G0439 10/25/2016 ROCEPHIN, PER 250 MG CPT-4: J0696 06/24/2016 THER/PROPH/DIAG INJ SC/IM CPT-4: 65924 06/24/2016 Vital Signs Date Vital 11/26/2017 Blood Pressure 1: 156/76 Code : 8480-6 BMI: 29.6 Code : 43310-6 Heart Rate 1 : 57 bpm Height: 5'8" SpO2: 98% Weight: 195 lbs 10/31/2017 Blood Pressure 1: 136/74 Code : 8480-6 BMI: 29.5 Code : 83161-3 Heart Rate 1 : 56 bpm Height: 5'8" SpO2: 95% Waist Measure (cm): 91 cm Weight: 194 lbs 10/07/2017 Blood Pressure 1: 136/72 Code : 8480-6 BMI: 30.3 Code : 78208-6 Heart Rate 1 : 58 bpm Height: 5'8" SpO2: 96% Weight: 199 lbs 09/22/2017 Blood Pressure 1: 138/78 Code : 8480-6 BMI: 30.4 Code : 16144-8 Heart Rate 1 : 60 bpm Height: 5'8" SpO2: 98% Temperature: 36.6 (C) / 97.9 (F) Weight: 200 lbs 05/08/2017 Blood Pressure 1: 128/80 Code : 8480-6 BMI: 30.0 Code : 73571-0 Heart Rate 1 : 75 bpm Height: 5'8" SpO2: 98% Weight: 197 lbs 03/25/2017 Blood Pressure 1: 150/80 Code : 8480-6 BMI: 30.1 Code : 16916-1 Heart Rate 1 : 53 bpm Height: 5'8" SpO2: 98% Weight: 198 lbs 01/21/2017 Blood Pressure 1: 156/88 Code : 8480-6 BMI: 29.8 Code : 39083-9 Heart Rate 1 : 95 bpm Height: 5'8" SpO2: 98% Temperature: 36.9 (C) / 98.4 (F) Weight: 196 lbs 12/30/2016 Blood Pressure 1: 122/74 Code : 8480-6 BMI: 29.8 Code : 58835-1 Heart Rate 1 : 60 bpm Height: 5'8" SpO2: 96% Temperature: 37.1 (C) / 98.8 (F) Weight: 196 lbs 12/26/2016 Blood Pressure 1: 142/74 Code : 8480-6 BMI: 29.8 Code : 78180-7 Heart Rate 1 : 58 bpm Height: 5'8" SpO2: 96% Temperature: 36.7 (C) / 98.0 (F) Weight: 196 lbs 12/02/2016 Blood Pressure 1: 128/78 Code : 8480-6 BMI: 30.3 Code : 10090-0 Heart Rate 1 : 49 bpm Height: 5'8" SpO2: 98% Temperature: 36.5 (C) / 97.7 (F) Weight: 199 lbs 11/21/2016 Blood Pressure 1: 130/68 Code : 8480-6 BMI: 30.3 Code : 76257-0 Heart Rate 1 : 54 bpm Height: 5'8" SpO2: 98% Weight: 199 lbs 10/25/2016 Blood Pressure 1: 150/92 Code : 8480-6 BMI: 29.8 Code : 67270-7 Heart Rate 1 : 54 bpm Height: 5'8" SpO2: 97% Waist Measure (cm): 97 cm Weight: 196 lbs 10/23/2016 Blood Pressure 1: 150/92 Code : 8480-6 BMI: 29.9 Code : 98415-9 Heart Rate 1 : 54 bpm Height: 5'8" SpO2: 98% Weight: 196 lbs 8 oz 07/29/2016 Blood Pressure 1: 144/72 Code : 8480-6 BMI: 30.3 Code : 19444-4 Heart Rate 1 : 54 bpm Height: 5'8" SpO2: 98% Weight: 199 lbs 06/24/2016 Blood Pressure 1: 132/78 Code : 8480-6 BMI: 29.5 Code : 35575-7 Heart Rate 1 : 59 bpm Height: 5'8" SpO2: 94% Weight: 194 lbs 02/21/2016 Blood Pressure 1: 138/84 Code : 8480-6 BMI: 30.3 Code : 94635-3 Heart Rate 1 : 64 bpm Height: 5'8" SpO2: 95% Weight: 199 lbs 10/18/2015 Blood Pressure 1: 138/72 Code : 8480-6 Blood Pressure 1: 154/84 Code: 8480-6 BMI: 30.4 Code: 43297-0 Heart Rate 1: 68 bpm Height: 5'8" SpO2: 97% Weight: 200 lbs 05/02/2015 Blood Pressure 1: 114/64 Code : 8480-6 BMI: 29.0 Code : 71992-2 Heart Rate 1 : 62 bpm Height: 5'8" Respiratory Rate: 20 bpm Weight: 191 lbs Functional Status No Functional Status data History of Present Illness Symptom Name Status Result Effective Date Notes acrochordon (skin tags) Location on the neck [...] data Encounters Encounter Performer Location Codes Date ([id number]) 45516 EST. PATIENT, LEVEL III Diagnosis: Actinic keratosis[ICD10: L57.0] Diagnosis: Other hypertrophic disorders of the skin[ICD10: L91.8] Amanda Husain MD, [facility] CPT-4: 27980 11/26/2017 ([id number]) 92231 EST. PATIENT, LEVEL IV Diagnosis: Essential (primary) hypertension[ICD10: I10] Diagnosis: Mild cognitive impairment, so stated[ICD10: G31.84] Amanda Husain MD, [facility] CPT-4: 22914 10/07/2017 ([id number]) 53836 EST. PATIENT, LEVEL III Diagnosis: Pneumonia due to other streptococci[ICD10: J15.4] Diagnosis: Cough[ICD10: R05] Amanda Husain MD, [facility] CPT-4: 78065 09/22/2017 [id number] EST. PATIENT, LEVEL IV Diagnosis: Left lower quadrant pain[ICD10: R10.32] Diagnosis: Other fatigue[ICD10: R53.83] Gabrielle Husain MD, [facility] CPT-4 : 59763 05/08/2017 ([id number]) 83279 EST. PATIENT, LEVEL III Diagnosis: Essential (primary) hypertension[ICD10: I10] Amanda Husain MD, [facility] CPT-4: 91055 03/25/2017 ([id number]) 70763 EST. PATIENT, LEVEL III Diagnosis: Cough[ICD10: R05] Diagnosis: Allergic rhinitis due to pollen[ICD10: J30.1] Leidy Husain MD, [facility] CPT-4: 18846 01/21/2017 [id number] EST. PATIENT, LEVEL III Diagnosis: Other allergic rhinitis[ICD10: J30.89] Diagnosis: Cough[ICD10: R05] Gabrielle Husain MD, [facility] CPT-4: 22974 12/30/2016 ([id number]) 62153 EST. PATIENT, LEVEL III Diagnosis: Cough[ICD10: R05] Diagnosis: Pneumonia, unspecified organism[ICD10: J18.9] Leidy Husain MD, [facility] CPT-4: 35633 12/26/2016 ([id number]) 13568 EST. PATIENT, LEVEL III Diagnosis: Pneumonia due to other streptococci[ICD10: J15.4] Diagnosis: Cough[ICD10: R05] Amanda Husain MD [facility] CPT-4: 65656 12/02/2016 ([id number]) 94072 EST. PATIENT, LEVEL III Diagnosis: Essential (primary) hypertension[ICD10: I10] Amanda Husain MD [facility] CPT-4: 36273 11/21/2016 ([id number]) 66199 EST. PATIENT, LEVEL IV Diagnosis: Essential (primary) hypertension[ICD10: I10] Diagnosis: Mixed hyperlipidemia[ICD10: E78.2] Amanda Husain MD [facility] CPT-4: 04067 10/23/2016 27818 EST. PATIENT, LEVEL IV Diagnosis: Other allergic rhinitis[ICD10: J30.89] Diagnosis: Cough[ICD10: R05] Gabrielle Husain MD [facility] CPT-4: 79880 07/29/2016 ([id number]) Miscellaneous no charge Diagnosis: Pneumonia, unspecified organism[ICD10: J18.9] Gabrielle Husain MD [facility] CPT-4: 40745 06/27/2016 ([id number]) 37099 EST. PATIENT, LEVEL IV Diagnosis: Essential (primary) hypertension[ICD10: I10] Diagnosis: Pneumonia, unspecified organism[ICD10: J18.9] Diagnosis: Cough[ICD10: R05] Diagnosis: Mixed hyperlipidemia[ICD10: E78.2] Amanda Husain MD [facility] CPT-4: 16177 06/24/2016 ([id number]) 70185 EST. PATIENT, LEVEL IV Diagnosis: Mixed hyperlipidemia[ICD10: E78.2] Diagnosis: Essential (primary) hypertension[ICD10: I10] Diagnosis: Gastro-esophageal reflux disease without esophagitis[ICD10: K21.9] Amanda Husain MD [facility] CPT-4: 95420 02/21/2016 ([id number]) 73464 EST. PATIENT, LEVEL IV Diagnosis: Essential (primary) hypertension[ICD10: I10] Diagnosis: Mixed hyperlipidemia[ICD10: E78.2] Diagnosis: Chronic lymphocytic 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[ICD10: C91.10] [facility] CPT-4: 93564 10/18/2015 ([id number]) OFFICE VISIT, NEW - LEVEL 3 Diagnosis: Diverticulitis[ICD9: 562.11] [facility] CPT-4 : 16808 05/02/2015 Plan of Care Planned Activity Notes Codes Status Date Visit Plan: Wound Instructions - Pt was instructed to keep the wound clean, wash with antibacterial soap, use triple antibiotic ointment, call if redness, pustular drainage, or any other acute concerns. 11/26/2017 App[facility]ment: [phone] [place] [facility] Procedure 11/26/2017 Patient Education: Patient Medication [...] care surrogate. 10/31/2017 [phone] [facility] - Annual Wellness Visit 10/31/2017 Patient [...] memory loss. 10/07/2017 Appointment: Amanda Husain WPtel: [phone] [facility] (30 min) Complex 10/07/2017 Patient Education: Patient Medication Summary Completed 10/07/2017 Patient Education: Obesity Completed 10/07/2017 Patient Education: Hypertension Completed 10/07/2017 Visit Plan: Pneumonia - Pt has been diagnosed with pneumonia by physical exam. Antibiotics have been ordered. The pt is aware of the diagnosis and the need for acute treatment of this illness. 09/22/2017 Appointment: Amanda Husain WPtel: [phone] [facility] (15 min) Moderate 09/22/2017 Patient Education: Patient [...] or concerns. 05/08/2017 Appointment: Gabrielle Corona WPtel: [phone] [facility] (30 min) Complex 05/08/2017 Patient Education: Patient [...] 10mg daily. 03/25/2017 Appointment: Amanda Husain WPtel: [phone] [facility] (15 min) Moderate 03/25/2017 Patient Education: Patient Medication Summary Completed 03/25/2017 Appointment: Leidy Angulo WPtel: [facility] [address] (15 min) Moderate 01/31/2017 Visit Plan: URI/Allergies - Pt advised to increase fluids, vitamin C. Discussed natural and expected course of this diagnosis and need to alert me if symptoms do not follow expected course, or if any worse. RX sent to patient's pharmacy. 01/21/2017 Appointment: Leidy Angulo WPtel: [phone] [place] (15 min) Moderate 01/21/2017 Patient Education: Patient [...] the medication. 12/30/2016 Appointment: Leidy Angulo WPtel: [facility] (15 min) Moderate 12/30/2016 Appointment: Gabirelle Corona WPtel: [address] [place] [address] (30 min) Complex 12/30/2016 Patient Education: Patient [...] the levaquin. 12/26/2016 Appointment: Leidy Angulo WPtel: [phone] [place] (15 min) Moderate 12/26/2016 Patient Education: [...] at home. 11/21/2016 Appointment: [phone] (15 min) Moderate 11/21/2016 Patient Education: Patient [...] care surrogate. 10/25/2016 Appointment: Leidy Angulo WPtel: [phone] [facility] - Annual Wellness Visit 10/25/2016 Patient [...] to medications. 10/23/2016 Appointment: Amanda Husain WPtel: [facility] (15 min) Moderate 10/23/2016 Patient Education: Patient [...] any concerns. 07/29/2016 Appointment: Gabrielle Corona WPtel: [facility]5 [facility] (15 min) Moderate 07/29/2016 Patient Education: Patient [...] to medications. 06/24/2016 Appointment: Amanda Husain WPtel: [address] [place], [place] [id number] (15 min) Moderate 06/24/2016 Patient Education: Patient [...] the symptoms are not improving. 02/21/2016 Appointment: Rodrigue Amanda WPtel: [id number] (15 min) Moderate 02/21/2016 Patient Education: Patient [...] Care Plan: COMPLETE CBC AUTOMATED LOINC : 83926-3 Ordered 05/02/2015 Care Plan: ASSAY OF TROPONIN QUANT Ordered 05/02/2015 Care Plan: [facility] ([facility]) Ordered 05/02/2015 [facility]ructions [facility] [employer] - take three times daily x 7 days get a PT/INR check on of this week . Pneumonia - Pt has been diagnosed with pneumonia by physical exam. Antibiotics ordered, pt advised on starting a probiotic, and to have his inr checked on of this week. The pt is aware of the diagnosis and the need for acute treatment of this illness. zyrtec - daily for allergies If in [...] HR and notify clinic with any concerns. . Wound Instructions - Pt was instructed to keep the wound clean, wash with antibacterial soap, use triple antibiotic ointment, call if redness, pustular drainage, or any other acute concerns. HOLD AMIODARONE X 7 DAYS LEVAQUIN 500MG [...] Husain-hold amiodarone while on the levaquin. . Medicare Exam - today we discussed [...] or with any questions or concerns. . 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 Finish levaquin and prednisone - let me [...] symptoms are not controlled with the medication. . Hypertension - well controlled - [...] of approaching that level of memory loss. kenalog injection zyrtec 10mg daily call if symptoms do not resolve or if any worse . URI/Allergies - Pt advised to increase fluids, vitamin C. Discussed natural and expected course of this diagnosis and need to alert me if symptoms do not follow expected course, or if any worse. RX sent to patient's pharmacy. Increase the ramipril to 10mg daily. . [...] concerns. Increase the ramipril to 10mg daily. check INR today and - come by [...] assure normal liver response to medications. . Diverticulitis - rx for antibiotic sent to pt's pharmacy - pt advised to avoid seeds, nuts, popcorn, or any other food which has been proven to upset the pt's stomach. If pain worsens pt is to go to the ER. Check labs today. Will check cardiac enzymes as well. Come back Friday to recheck PT/INR please go home and confirm that the [...] - he is tolerating treatments well. . Hypertension - well controlled - continue with current medications, continue with no added salt diet. Pt has been encouraged to exercise daily. The pt has been advised to call the office if there are any acute concerns about change in blood pressure readings at home. change metoprolol to 25mg twice daily. . [...] assure normal liver response to medications. . Hypertension - well controlled - continue [...]
--- OUTSIDE RECORDS SUMMARY | 2018-11-01 21:50 | XMS REPORT | Continuity of Care Document ---
Author Author [facility] Organization [facility] Address Unknown Phone Unavailable Allergies Active Description Code Type Severity Reaction Onset Reported/Identified Relationship to Patient Clinical Status Yes No Known Drug Allergies [id number] Drug Allergy Unknown N/A 03/05/2017 Medications There is no data. 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 01/25/2011 Ot 433.10 CAROTID ARTERY OCCLUSION 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 CEREBRAL IN 01/25/2011 Ot 786.09 RESPIRATORY ABNORM NEC 01/25/2011 Ot 786.50 CHEST PAIN NOS 01/25/2011 Ot V45.82 PERCUTANEOUS TRANSLUM CORON ANGIOPLASTY 04/02/2011 Ot 272.4 HYPERLIPIDEMIA NEC/NOS 04/02/2011 Ot 401.9 HYPERTENSION NOS 04/02/2011 Ot 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 04/02/2011 Ot 427.31 ATRIAL FIBRILLATION 04/02/2011 Ot 433.10 CAROTID ARTERY OCCLUSION 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 CEREBRAL IN 04/02/2011 Ot 443.9 PERIPH VASCULAR DIS NOS 04/02/2011 Ot V45.82 PERCUTANEOUS TRANSLUM CORON ANGIOPLASTY 04/02/2011 Ot V58.66 LONG-TERM ( CURRENT) USE OF ASPIRIN 04/02/2011 Ot V58.69 OTH MED,LT, CURRENT USE 06/04/2011 Ot V45.82 PERCUTANEOUS TRANSLUM CORON ANGIOPLASTY 06/04/2011 Ot V57.89 REHABILITATION PROC NEC 07/12/2011 Ot V45.82 PERCUTANEOUS TRANSLUM CORON ANGIOPLASTY 07/12/2011 Ot V57.89 REHABILITATION PROC NEC 08/24/2012 Ot 562.10 DIVERTICULOSIS COLON (W/O MENT OF HEMORR 08/24/2012 Ot V12.72 PERSONAL HISTORY OF COLONIC POLYPS 08/24/2012 Ot V58.66 LONG-TERM ( CURRENT) USE OF ASPIRIN 08/24/2012 Ot V58.69 OTH MED,LT, CURRENT USE 03/09/2013 Ot 272.4 HYPERLIPIDEMIA NEC/NOS 03/09/2013 Ot 401.9 HYPERTENSION NOS 03/09/2013 Ot 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 03/09/2013 Ot 427.31 ATRIAL FIBRILLATION 03/09/2013 Ot 427.69 PREMATURE BEATS NEC 03/09/2013 Ot 427.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 03/09/2013 Ot 433.10 CAROTID ARTERY OCCLUSION 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 CEREBRAL IN 03/09/2013 Ot 600.00 HYPERTROPHY (BENIGN) OF PROSTATE W/O URI 03/09/2013 Ot V45.82 PERCUTANEOUS TRANSLUM CORON ANGIOPLASTY 03/09/2013 Ot V58.61 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S,LT,CURRENT USE 03/09/2013 Ot V58.66 LONG-TERM ( CURRENT) USE OF ASPIRIN 03/09/2013 Ot V58.69 OT MED,LT, CURRENT USE 04/10/2013 CAT PERES MD Ot 272.4 HYPERLIPIDEMIA NEC/NOS 04/10/2013 CAT PERES MD Ot 285.9 ANEMIA NOS 04/10/2013 CAT PERES MD Ot 401.9 HYPERTENSION NOS 04/10/2013 CAT PERES MD Ot 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 INFARCT 04/10/2013 CAT PERES MD Ot 414.00 CORON ATHEROSCLER NOS TYPE VESSEL, NATIV 04/10/2013 CAT PERES MD Ot 427.31 ATRIAL FIBRILLATION 04/10/2013 CAT PERES MD Ot 427.89 CARDIAC DYSRHYTHMIAS NEC 04/10/2013 CAT PERES MD Ot V45.81 AORTOCORONARY BYPASS 08/02/2013 JENNY KIM MD Ot V45.81 AORTOCORONARY BYPASS 08/02/2013 JENNY KIM MD Ot V57.89 REHABILITATION PROC NEC 08/04/2013 JENNY KIM MD Ot V45.81 AORTOCORONARY BYPASS 08/04/2013 JENNY KIM MD Ot V57.89 REHABILITATION PROC NEC 05/10/2014 [facility] Ot 327.23 OBSTRUCTIVE SLEEP APNEA (ADULT) (PEDIATR 02/03/2015 Ot 211.3 BENIGN NEOPLASM LG BOWEL 02/03/2015 Ot 562.10 DIVERTICULOSIS COLON (W/O MENT OF HEMORR 02/03/2015 Ot V76.51 SCREEN MAL NEOP-COLON 03/03/2015 Ot V72.84 05/03/2015 Ot V72.84 05/03/2015 Ot 442.2 05/03/2015 Ot 562.10 05/03/2015 Ot 599.70 05/03/2015 Ot 600.00 05/24/2015 DEIDRE AMIN APRN Ot 412 05/24/2015 DEIDRE AMIN APRN Ot 780.8 07/06/2015 DEIDRE AMIN APRN Ot 412 07/06/2015 DEIDRE AMIN APRN Ot 780.8 07/14/2015 Ot 442.2 07/14/2015 Ot 562.10 07/14/2015 Ot 599.70 07/14/2015 Ot 600.00 07/14/2015 Ot V72.84 07/14/2015 Ot 427.81 07/14/2015 Ot 785.1 07/14/2015 Ot 427.31 07/14/2015 Ot 427.81 07/14/2015 Ot 785.1 07/14/2015 OSCAR VALENCIA GEOLOGICAL ENGINEERING TEACHER Ot 414.01 07/14/2015 OSCAR VALENCIA GEOLOGICAL ENGINEERING TEACHER Ot 427.31 07/14/2015 OSCAR VALENCIA GEOLOGICAL ENGINEERING TEACHER Ot V45.81 07/14/2015 ANATOLIY LUNA GEOLOGICAL ENGINEERING TEACHER Ot 786.09 07/14/2015 ANATOLIY LUNA GEOLOGICAL ENGINEERING TEACHER Ot 786.2 07/14/2015 Ot V72.84 07/14/2015 DEIDRE AMIN ANALYTICS ASSOCIATE Ot 412 07/14/2015 DEIDRE AMIN APRN Ot 780.8 07/14/2015 ALEX CHANDLER GEOLOGICAL ENGINEERING TEACHER Ot 288.61 07/18/2015 ALEX CHANDLER GEOLOGICAL ENGINEERING TEACHER Ot 288.61 07/26/2015 Ot V72.84 08/16/2015 PEBBLES FRANCO, LUIGI Foote Ot 204.10 CHRONIC LYMPHOID LEUKEMIA, 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 08/16/2015 PEBBLES FRANCO, LUIGI Foote Ot 272.4 HYPERLIPIDEMIA NEC/NOS 08/16/2015 PEBBLES FRANCO, LUIGI Foote Ot 401.9 HYPERTENSION NOS 08/16/2015 PEBBLES FRANCO, LUIGI Foote Ot 414.00 CORON ATHEROSCLER NOS TYPE VESSEL, NATIV 08/16/2015 LUIGI ROGEL MD Ot 427.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 08/16/2015 LUIGI ROGEL MD Ot 447.9 ARTERIAL DISEASE NOS 08/16/2015 LUIGI ROGEL MD Ot V45.81 AORTOCORONARY BYPASS 08/16/2015 PEBBLES FRANCO, LUIGI Foote Ot V58.69 OT MED,LT,CURRENT USE 08/22/2015 LUIGI ROGEL MD Ot 204.10 08/22/2015 LUIGI ROGEL MD Ot 272.4 08/22/2015 PEBBLES FRANCO, LUIGI Foote Ot 401.9 08/22/2015 PEBBLES FRANCO, LUIGI Foote Ot 414.00 08/22/2015 LUIGI ROGEL MD Ot 427.81 08/22/2015 PEBBLES FRANCO, LUIGI Foote Ot 447.9 08/22/2015 PEBBLES FRANCO, LUIGI Foote Ot V45.81 08/22/2015 PEBBLES FRANCO, LUIGI Foote Ot V58.69 08/23/2015 LUIGI ROGEL MD Ot 204.10 08/23/2015 PEBBLES FRANCO, LUIGI Foote Ot 562.10 08/23/2015 PEBBLES FRANCO, LUIGI Foote Ot 571.8 09/15/2015 CHARLOTTE FRANCO, KINJAL Anna Ot C95.90 LEUKEMIA, UNSPECIFIED NOT HAVING ACHIEVE 09/19/2015 PEBBLES FRANCO, LUIGI Foote Ot C91.10 09/19/2015 PEBBLES FRANCO, LUIGI Foote Ot E11.9 09/19/2015 PEBBLES FRANCO, LUIGI Foote Ot E78.5 09/19/2015 PEBBLES FRANCO, LUIGI Foote Ot I12.9 09/19/2015 PEBBLES FRANCO, LUIGI Foote Ot I25.10 09/19/2015 PEBBLES FRANCO, LUIGI Foote Ot Z79.01 09/19/2015 PEBBLES FRANCO, LUIGI Foote Ot Z79.899 09/19/2015 PEBBLES FRANCO, LUIGI Foote Ot Z95.1 10/03/2015 PEBBLES FRANCO, LUIGI K Ot C91.10 10/03/2015 PEBBLES FRANCO, LUIGI Dary Ot E11.9 10/03/2015 PEBBLES FRANCO, LUIGI Foote Ot E78.5 10/03/2015 PEBBLES FRANCO, LUIGI K Ot I12.9 10/03/2015 PEBBLES FRANCO, LUIGI Foote Ot I25.10 10/03/2015 PEBBLES FRANCO, LUIGI Dary Ot Z79.01 10/03/2015 PEBBLES FRANCO, LUIGI Dary Ot Z79.899 10/03/2015 PEBBLES FRANCO, LUIGI K Ot Z95.1 10/04/2015 BRIEN JESUS S GEOLOGICAL ENGINEERING TEACHER Ot C91.10 10/04/2015 BRIEN HILAH S GEOLOGICAL ENGINEERING TEACHER Ot E11.9 10/04/2015 BRIEN HILTISH S GEOLOGICAL ENGINEERING TEACHER Ot E78.5 10/04/2015 BRIEN HILAH S GEOLOGICAL ENGINEERING TEACHER Ot I12.9 10/04/2015 BRIEN HILAH S GEOLOGICAL ENGINEERING TEACHER Ot I25.10 10/04/2015 BRIEN HILAH S GEOLOGICAL ENGINEERING TEACHER Ot Z79.01 10/04/2015 BRIEN HILAH S GEOLOGICAL ENGINEERING TEACHER Ot Z79.899 10/04/2015 BRIEN HILAH S GEOLOGICAL ENGINEERING TEACHER Ot Z95.1 10/17/2015 PEBBLES FRANCO, LUIGI Dary Ot C91.10 10/17/2015 PEBBLES FRANCO, LUIGI Dary Ot E11.9 10/17/2015 EPBBLES FRANCO, LUIGI Dary Ot E78.5 10/17/2015 PEBBLES FRANCO, LUIGI Dary Ot I12.9 10/17/2015 PEBBLES FRANCO, LUIGI Foote Ot I25.10 10/17/2015 PEBBLES FRANCO, LUIGI Foote Ot Z79.01 10/17/2015 PEBBLES FRANCO, LUIGI K Ot Z79.899 10/17/2015 PEBBLES FRANCO, LUIGI K Ot Z95.1 10/18/2015 PEBBLES FRANCO, LUIGI Foote Ot C91.10 10/18/2015 PEBBLES FRANCO, LUIGI K Ot E11.9 10/18/2015 PEBBLES FRANCO, LUIGI Dary Ot E78.5 10/18/2015 PEBBLES FRANCO, LUIGI K Ot I12.9 10/18/2015 PEBBLES FRANCO, LUIGI Foote Ot I25.10 10/18/2015 PEBBLES FRANCO, LUIGI Foote Ot Z79.01 10/18/2015 PEBBLES FRANCO, LUIGI Foote Ot Z79.899 10/18/2015 PEBBLES FRANCO, LUIGI K Ot Z95.1 10/18/2015 LUIGI ROGEL MD, Ot C91.10 10/18/2015 LUIGI ROGEL MD Ot E11.9 10/18/2015 LUIGI ROGEL MD, Ot E78.5 10/18/2015 LUIGI ROGEL MD Ot I12.9 10/18/2015 LUIGI ROGEL MD, Ot I25.10 10/18/2015 LUIGI ROGEL MD, Ot Z79.01 10/18/2015 LUIGI ROGEL MD, Ot Z79.899 10/18/2015 LUIGI ROGEL MD, Ot Z95.1 11/15/2015 LUIGI ROGEL MD Ot 204.10 CHRONIC LYMPHOID LEUKEMIA, 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 11/15/2015 LUIGI ROGEL MD Ot 250.00 DIAB GISELLA WO COMPL, TYPE II OR UNSPEC TY 11/15/2015 LUIGI ROGEL MD Ot 272.4 HYPERLIPIDEMIA NEC/NOS 11/15/2015 LUIGI ROGEL MD, Ot C91.10 CHRONIC LYMPHOCYTIC LEUK OF B-CELL TYPE 11/15/2015 LUIGI ROGEL MD, Ot E11.9 TYPE 2 DIABETES MELLITUS WITHOUT COMPLIC 11/15/2015 LUIGI ROGEL MD, Ot E78.5 HYPERLIPIDEMIA, UNSPECIFIED 11/15/2015 LUIGI ROGEL MD, Ot I12.9 HYPERTENSIVE CHRONIC KIDNEY DISEASE W ST 11/15/2015 LUIGI ROGEL MD, Ot 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 11/15/2015 LUIGI ROGEL MD Ot V45.81 AORTOCORONARY BYPASS 11/15/2015 LUIGI ROGEL MD, Ot V58.61 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S,LT,CURRENT USE 11/15/2015 LUIGI ROGEL MD, Ot V58.69 OTH MED,LT,CURRENT USE 11/15/2015 LUIGI ROGEL MD Ot Z51.11 ENCOUNTER FOR ANTINEOPLASTIC CHEMOTHERAP 11/15/2015 LUIGI ROGEL MD, Ot 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 11/15/2015 LUIGI ROGEL MD, Ot Z79.899 OTHER GENERAL II FARMWORKER (CURRENT) DRUG THERAPY 11/15/2015 LUIGI ROGEL MD Ot Z95.1 PRESENCE OF AORTOCORONARY BYPASS GRAFT 11/20/2015 LUIGI ROGEL MD Ot 204.10 11/20/2015 LUIGI ROGEL MD Ot 250.00 11/20/2015 LUIGI ROGEL MD Ot 272.4 11/20/2015 LUIGI ROGEL MD, Ot C91.10 11/20/2015 PEBBLES FRANCO, LUIGI Foote Ot E11.9 11/20/2015 PEBBLES FRANCO, LUIGI Foote Ot E78.5 11/20/2015 PEBBLES FRANCO, LUIGI Foote Ot I12.9 11/20/2015 PEBBLES FRANCO, LUIGI Foote Ot I25.10 11/20/2015 PEBBLES FRANCO, LUIGI Foote Ot V45.81 11/20/2015 PEBBLES FRANCO, LUIGI Foote Ot V58.61 11/20/2015 PEBBLES FRANCO, LUIGI Foote Ot V58.69 11/20/2015 PEBBLES FRANCO, LUIGI Foote Ot Z79.01 11/20/2015 PEBBLES FRANCO, LUIGI Foote Ot Z79.899 11/20/2015 PEBBLES FRANCO, LUIGI Foote Ot Z95.1 12/05/2015 PEBBLES FRANCO, LUIGI Foote Ot C91.10 12/05/2015 PEBBLES FRANCO, LUIGI Foote Ot E11.9 12/05/2015 PEBBLES FRANCO, LUIGI Foote Ot E78.5 12/05/2015 PEBBLES FRANCO, LUIGI Foote Ot I10 12/05/2015 PEBBLES FRANCO, LUIGI Foote Ot I25.10 12/05/2015 PEBBLES FRANCO, LUIGI Foote Ot Z51.11 12/05/2015 PEBBLES FRANCO, LUIGI Foote Ot Z79.01 12/05/2015 PEBBLES FRANCO, LUIGI Foote Ot Z79.899 12/05/2015 PEBBLES FRANCO, LUIGI Foote Ot Z95.1 12/15/2015 PEBBLES FRANCO, LUIGI Foote Ot C91.10 12/15/2015 PEBBLES FRANCO, LUIGI Foote Ot E11.9 12/15/2015 PEBBLES FRANCO, LUIGI Foote Ot E78.5 12/15/2015 PEBBLES FRANCO, LUIGI Foote Ot I10 12/15/2015 PEBBLES FRANCO, LUIGI Foote Ot I25.10 12/15/2015 PEBBLES FRANCO, LUIGI Foote Ot Z51.11 12/15/2015 PEBBLES FRANCO, LUIGI Foote Ot Z79.01 12/15/2015 PEBBLES FRANCO, LUIGI Foote Ot Z79.899 12/15/2015 PEBBLES FRANCO, LUIGI Foote Ot Z95.1 01/23/2016 Ot 562.10 01/23/2016 Ot 574.20 01/23/2016 Ot 599.7 01/23/2016 Ot 600.00 01/23/2016 Ot 272.0 01/23/2016 Ot 401.9 01/23/2016 Ot 414.00 01/23/2016 Ot 574.10 01/23/2016 Ot V45.82 01/23/2016 Ot V58.69 01/23/2016 Ot V72.81 01/23/2016 Ot V72.83 01/23/2016 PEBBLES FRANCO, LUIGI Foote Ot C91.10 01/23/2016 PEBBLES FRANCO, LUIGI Dary Ot E11.9 01/23/2016 PEBBLES FRANCO, LUIGI Dary Ot E78.5 01/23/2016 PEBBLES FRANCO, LUIGI Dary Ot I10 01/23/2016 PEBBLES FRANCO, LUIGI Dary Ot I25.10 01/23/2016 PEBBLES FRANCO, LUIGI Dary Ot Z51.11 01/23/2016 PEBBLES FRANCO, LUIGI Foote Ot Z79.01 01/23/2016 PEBBLES FRANCO, LUIGI Foote Ot Z79.899 01/23/2016 PEBBLES FRANCO, LUIGI Foote Ot Z95.1 01/23/2016 Ot V72.84 01/23/2016 Ot V72.84 01/23/2016 PEBBLES FRANCO, LUIGI Dary Ot 204.10 01/23/2016 PEBBLES FRANCO, LUIGI Foote Ot 562.10 01/23/2016 PEBBLES FRANCO, LUIGI Foote Ot 571.8 01/23/2016 CHARLOTTE FRANCO, KINJAL Anna Ot C91.10 01/23/2016 CHARLOTTE FRANCO, KINJAL Anna Ot Z01.818 01/23/2016 PEBBLES FRANCO, LUIGI Foote Ot C91.10 01/23/2016 PEBBLES FRANCO, LUIGI Dary Ot E11.9 01/23/2016 PEBBLES FRANCO, LUIGI Foote Ot E78.5 01/23/2016 PEBBLES FRANCO, LUIGI Dary Ot I10 01/23/2016 PEBBLES FRANCO, LUIGI Foote Ot I25.10 01/23/2016 PEBBLES FRANCO, LUIGI Foote Ot Z51.11 01/23/2016 PEBBLES FRANCO, LUIGI Foote Ot Z79.01 01/23/2016 PEBBLES FRANCO, LUIGI Foote Ot Z79.899 01/23/2016 PEBBLES FRANCO, LUIGI Dary Ot Z95.1 01/26/2016 PEBBLES FRANCO, LUIGI Foote Ot C91.10 01/26/2016 PEBBLES FRANCO, LUIGI Foote Ot E11.9 01/26/2016 PEBBLES FRANCO, LUIGI Foote Ot E78.5 01/26/2016 PEBBLES FRANCO, LUIGI Foote Ot I10 01/26/2016 PEBBLES FRANCO, LUIGI Dary Ot I25.10 01/26/2016 PEBBLES FRANCO, LUIGI Foote Ot Z51.11 01/26/2016 PEBBLES FRANCO, LUIGI Foote Ot Z79.01 01/26/2016 PEBBLES FRANCO, LUIGI Dary Ot Z79.899 01/26/2016 PEBBLES FRANCO, LUIGI Foote Ot Z95.1 01/26/2016 PEBBLES FRANCO, LUIGI Foote Ot C91.10 01/26/2016 PEBBLES FRANCO, LUIGI Foote Ot E11.9 01/26/2016 PEBBLES FRANCO, LUIGI Foote Ot E78.5 01/26/2016 PEBBLES FRANCO, LUIGI Foote Ot I10 01/26/2016 PEBBLES FRANCO, LUIGI Foote Ot I25.10 01/26/2016 PEBBLES FRANCO, LUIGI Dary Ot Z51.11 01/26/2016 PEBBLES FRANCO, LUIGI Dary Ot Z79.01 01/26/2016 PEBBLES FRANCO, LUIGI Dary Ot Z79.899 01/26/2016 PEBBLES FRANCO, LUIGI Foote Ot Z95.1 02/14/2016 PEBBLES FRANCO, LUIGI Foote Ot C91.10 CHRONIC LYMPHOCYTIC LEUK OF B-CELL TYPE 02/14/2016 PEBBLES FRANCO, LUIGI Foote Ot E11.9 TYPE 2 DIABETES MELLITUS WITHOUT COMPLIC 02/14/2016 LUIGI ROGEL MD Ot E78.5 HYPERLIPIDEMIA, UNSPECIFIED 02/14/2016 PEBBLES FRANCO, LUIGI Foote Ot I10 ESSENTIAL (PRIMARY) HYPERTENSION 02/14/2016 PEBBLES FRANCO, LUIGI Dary Ot 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 02/14/2016 PEBBLES FRANCO, LUIGI Dary Ot Z51.11 ENCOUNTER FOR ANTINEOPLASTIC CHEMOTHERAP 02/14/2016 PEBBLES FRANCO, LUIGI Dary Ot 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 02/14/2016 PEBBLES FRANCO, LUIGI Dary Ot Z79.899 OTHER GENERAL II FARMWORKER (CURRENT) DRUG THERAPY 02/14/2016 PEBBLES FRANCO, LUIGI Dary Ot Z95.1 PRESENCE OF AORTOCORONARY BYPASS GRAFT 02/29/2016 Ot 442.2 02/29/2016 Ot 562.10 02/29/2016 Ot 599.70 02/29/2016 Ot 600.00 02/29/2016 DEIDRE AMIN APRN Ot 412 02/29/2016 DEIDRE AMIN APRN Ot 780.8 02/29/2016 ALEX CHANDLER GEOLOGICAL ENGINEERING TEACHER Ot 288.61 02/29/2016 PEBBLES FRANCO, LUIGI Foote Ot 204.10 02/29/2016 PEBBLES FRANCO, LUIGI Foote Ot 562.10 02/29/2016 PEBBLES FRANCO, LUIGI Foote Ot 571.8 02/29/2016 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 Ot C91.10 02/29/2016 TESFAYEJESUS Arreguin GEOLOGICAL ENGINEERING TEACHER Ot E11.9 02/29/2016 TESFAYEJESUS Arreguin GEOLOGICAL ENGINEERING TEACHER Ot E78.5 02/29/2016 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 Ot I12.9 02/29/2016 TESFAYEJESUS Arreguin GEOLOGICAL ENGINEERING TEACHER Ot I25.10 02/29/2016 TESFAYEJESUS Arreguin GEOLOGICAL ENGINEERING TEACHER Ot Z79.01 02/29/2016 TESFAYEJESUS Arreguin GEOLOGICAL ENGINEERING TEACHER Ot Z79.899 02/29/2016 TESFAYEJESUS Arreguin GEOLOGICAL ENGINEERING TEACHER Ot Z95.1 02/29/2016 CHARLOTTE FRANCO, KINJAL Anna Ot C91.10 02/29/2016 CHARLOTTE FRANCO, KINJAL Anna Ot Z01.818 03/04/2016 LUIGI ROGEL MD, Ot C91.10 CHRONIC LYMPHOCYTIC LEUK OF B-CELL TYPE 03/04/2016 LUIGI ROGEL MD Ot E11.9 TYPE 2 DIABETES MELLITUS WITHOUT COMPLIC 03/04/2016 LUIGI ROGEL MD, Ot E78.5 HYPERLIPIDEMIA, UNSPECIFIED 03/04/2016 LUIGI ROGEL MD Ot I10 ESSENTIAL (PRIMARY) HYPERTENSION 03/04/2016 LUIGI ROGEL MD, Ot 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 03/04/2016 LUIGI ROGEL MD Ot Z51.11 ENCOUNTER FOR ANTINEOPLASTIC CHEMOTHERAP 03/04/2016 LUIGI ROGEL MD Ot 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 03/04/2016 LUIGI ROGEL MD, Ot Z79.899 OTHER GENERAL II FARMWORKER (CURRENT) DRUG THERAPY 03/04/2016 LUIGI ROGEL MD Ot Z95.1 PRESENCE OF AORTOCORONARY BYPASS GRAFT 03/11/2016 LUIGI ROGEL MD, Ot C91.10 CHRONIC LYMPHOCYTIC LEUK OF B-CELL TYPE 03/11/2016 LUIGI ROGEL MD Ot E11.9 TYPE 2 DIABETES MELLITUS WITHOUT COMPLIC 03/11/2016 LUIGI ROGEL MD Ot E78.5 HYPERLIPIDEMIA, UNSPECIFIED 03/11/2016 LUIGI ROGEL MD Ot I10 ESSENTIAL (PRIMARY) HYPERTENSION 03/11/2016 LUIGI ROGEL MD Ot 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 03/11/2016 LUIGI ROGEL MD Ot Z51.11 ENCOUNTER FOR ANTINEOPLASTIC CHEMOTHERAP 03/11/2016 LUIGI ROGEL MD Ot Z79.01 ALF (CURRENT) USE OF 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 03/11/2016 LUIGI ROGEL MD Ot Z79.899 OTHER ALF (CURRENT) DRUG THERAPY 03/11/2016 LUIGI ROGEL MD Ot Z95.1 PRESENCE OF AORTOCORONARY BYPASS GRAFT 03/28/2016 MARIETTA VITAL MD, Ot S01.91XA LACERATION W/O FOREIGN BODY OF UNSP PART 03/28/2016 MARIETTA VITAL MD, Ot Z53.21 PROC/TRTMT NOT CRD OUT D/T PT LV BEF SEE 03/28/2016 Ot V72.84 EXAM PRE- OPERATIVE NOS 03/28/2016 LUIGI ROGEL MD Ot 204.10 CHRONIC LYMPHOID LEUKEMIA, 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 03/28/2016 LUIGI ROGEL MD Ot 562.10 DIVERTICULOSIS COLON (W/O MENT OF HEMORR 03/28/2016 LUIGI ROGEL MD Ot 571.8 CHRONIC LIVER DIS NEC 03/28/2016 JESUS TESFAYE Ot C91.10 CHRONIC LYMPHOCYTIC LEUK OF B-CELL TYPE 03/28/2016 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 Ot E11.9 TYPE 2 DIABETES MELLITUS WITHOUT COMPLIC 03/28/2016 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 Ot E78.5 HYPERLIPIDEMIA, UNSPECIFIED 03/28/2016 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 Ot I12.9 HYPERTENSIVE CHRONIC KIDNEY DISEASE W ST 03/28/2016 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 Ot 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 03/28/2016 JESUS TESFAYEP Ot 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 03/28/2016 JESUS TESFAYEP Ot Z79.899 OTHER GENERAL II FARMWORKER (CURRENT) DRUG THERAPY 03/28/2016 JESUS TESFAYEP Ot Z95.1 PRESENCE OF AORTOCORONARY BYPASS GRAFT 03/28/2016 KINJAL PORTER MD Ot C91.10 CHRONIC LYMPHOCYTIC LEUK OF B-CELL TYPE 03/28/2016 CHARLOTTE FRANCO, KINJAL Anna Ot Z01.818 ENCOUNTER FOR OTHER PREPROCEDURAL EXAMIN 03/28/2016 LUIGI ROGEL MD Ot C91.10 CHRONIC LYMPHOCYTIC LEUK OF B-CELL TYPE 03/28/2016 LUIGI ROGEL MD Ot E11.9 TYPE 2 DIABETES MELLITUS WITHOUT COMPLIC 03/28/2016 LUIGI ROGEL MD, Ot E78.5 HYPERLIPIDEMIA, UNSPECIFIED 03/28/2016 LUIGI ROGEL MD Ot I10 ESSENTIAL (PRIMARY) HYPERTENSION 03/28/2016 LUIGI ROGEL MD, Ot 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 03/28/2016 LUIGI ROGEL MD, Ot Z51.11 ENCOUNTER FOR ANTINEOPLASTIC CHEMOTHERAP 03/28/2016 LUIGI ROGEL MD, Ot Z79.01 ALF (CURRENT) USE OF 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 03/28/2016 LUIGI ROGEL MD, Ot Z79.899 OTHER GENERAL II FARMWORKER (CURRENT) DRUG THERAPY 03/28/2016 LUIGI ROGEL MD Ot Z95.1 PRESENCE OF AORTOCORONARY BYPASS GRAFT 03/29/2016 MARIETTA VITAL MD, Ot S01.91XA LACERATION W/O FOREIGN BODY OF UNSP PART 03/29/2016 MARIETTA VITAL MD, Ot Z53.21 PROC/TRTMT NOT CRD OUT D/T PT LV BEF SEE 04/03/2016 MARIETTA VITAL MD, Ot S01.91XA LACERATION W/O FOREIGN BODY OF UNSP PART 04/03/2016 MARIETTA VITAL MD, Ot Z53.21 PROC/TRTMT NOT CRD OUT D/T PT LV BEF SEE 04/10/2016 LUIGI ROGEL MD, Ot C91.10 CHRONIC LYMPHOCYTIC LEUK OF B-CELL TYPE 04/10/2016 LUIGI ROGEL MD Ot E11.9 TYPE 2 DIABETES MELLITUS WITHOUT COMPLIC 04/10/2016 LUIGI ROGEL MD, Ot E78.5 HYPERLIPIDEMIA, UNSPECIFIED 04/10/2016 LUIGI ROGEL MD Ot I10 ESSENTIAL (PRIMARY) HYPERTENSION 04/10/2016 LUIGI ROGEL MD, Ot 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 04/10/2016 LUIGI ROGEL MD, Ot Z51.11 ENCOUNTER FOR ANTINEOPLASTIC CHEMOTHERAP 04/10/2016 LUIGI ROGEL MD, Ot 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 04/10/2016 LUIGI ROGEL MD, Ot Z79.899 OTHER ALF (CURRENT) DRUG THERAPY 04/10/2016 LUIGI ROGEL MD Ot Z95.1 PRESENCE OF AORTOCORONARY BYPASS GRAFT 04/27/2016 LUIGI ROGEL MD, Ot C91.10 CHRONIC LYMPHOCYTIC LEUK OF B-CELL TYPE 04/27/2016 LUIGI ROGEL MD Ot E11.9 TYPE 2 DIABETES MELLITUS WITHOUT COMPLIC 04/27/2016 LUIGI ROGEL MD Ot E78.5 HYPERLIPIDEMIA, UNSPECIFIED 04/27/2016 LUIGI ROGEL MD Ot I10 ESSENTIAL (PRIMARY) HYPERTENSION 04/27/2016 LUIGI ROGEL MD Ot 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 04/27/2016 LUIGI ROGEL MD Ot Z45.2 ENCOUNTER FOR ADJUSTMENT AND MANAGEMENT 04/27/2016 LUIGI ROGEL MD Ot 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 04/27/2016 LUIGI ROGEL MD Ot Z79.899 OTHER GENERAL II FARMWORKER (CURRENT) DRUG THERAPY 04/27/2016 LUIGI ROGEL MD Ot Z95.1 PRESENCE OF AORTOCORONARY BYPASS GRAFT 05/21/2016 LUIGI ROGEL MD, Ot C91.10 CHRONIC LYMPHOCYTIC LEUK OF B-CELL TYPE 05/21/2016 LUIGI ROGEL MD, Ot E11.9 TYPE 2 DIABETES MELLITUS WITHOUT COMPLIC 05/21/2016 LUIGI ROGEL MD, Ot E78.5 HYPERLIPIDEMIA, UNSPECIFIED 05/21/2016 LUIGI ROGEL MD Ot I10 ESSENTIAL (PRIMARY) HYPERTENSION 05/21/2016 LUIGI ROGEL MD Ot 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 05/21/2016 LUIGI ROGEL MD, Ot Z45.2 ENCOUNTER FOR ADJUSTMENT AND MANAGEMENT 05/21/2016 LUIGI ROGEL MD, Ot 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 05/21/2016 LUIGI ROGEL MD Ot Z79.899 OTHER GENERAL II FARMWORKER (CURRENT) DRUG THERAPY 05/21/2016 LUIGI ROGEL MD Ot Z95.1 PRESENCE OF AORTOCORONARY BYPASS GRAFT 05/23/2016 LUIGI ROGEL MD, Ot C91.10 CHRONIC LYMPHOCYTIC LEUK OF B-CELL TYPE 05/23/2016 LUIGI ROGEL MD Ot E11.9 TYPE 2 DIABETES MELLITUS WITHOUT COMPLIC 05/23/2016 LUIGI ROGEL MD, Ot E78.5 HYPERLIPIDEMIA, UNSPECIFIED 05/23/2016 LUIGI ROGEL MD Ot I10 ESSENTIAL (PRIMARY) HYPERTENSION 05/23/2016 LUIGI ROGEL MD Ot 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 05/23/2016 LUIGI ROGEL MD Ot Z45.2 ENCOUNTER FOR ADJUSTMENT AND MANAGEMENT 05/23/2016 LUIGI ORGEL MD Ot Z79.01 ALF (CURRENT) USE OF 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 05/23/2016 LUIGI ROGEL MD Ot Z79.899 OTHER ALF (CURRENT) DRUG THERAPY 05/23/2016 LUIGI ROGEL MD Ot Z95.1 PRESENCE OF AORTOCORONARY BYPASS GRAFT 05/29/2016 LUIGI ROGEL MD, Ot C91.10 CHRONIC LYMPHOCYTIC LEUK OF B-CELL TYPE 05/29/2016 LUIGI ROGEL MD Ot E11.9 TYPE 2 DIABETES MELLITUS WITHOUT COMPLIC 05/29/2016 LUIGI ROGEL MD Ot E78.5 HYPERLIPIDEMIA, UNSPECIFIED 05/29/2016 LUIGI ROGEL MD Ot I10 ESSENTIAL (PRIMARY) HYPERTENSION 05/29/2016 LUIGI ROGEL MD Ot 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 05/29/2016 LUIGI ROGEL MD Ot Z45.2 ENCOUNTER FOR ADJUSTMENT AND MANAGEMENT 05/29/2016 LUIGI ROGEL MD, Ot Z79.01 ALF (CURRENT) USE OF 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 05/29/2016 LUIGI ROGEL MD, Ot Z79.899 OTHER ALF (CURRENT) DRUG THERAPY 05/29/2016 LUIGI ROGEL MD Ot Z95.1 PRESENCE OF AORTOCORONARY BYPASS GRAFT 06/06/2016 LUIGI ROGEL MD, Ot C91.10 CHRONIC LYMPHOCYTIC LEUK OF B-CELL TYPE 06/06/2016 LUIGI ROGEL MD Ot E11.9 TYPE 2 DIABETES MELLITUS WITHOUT COMPLIC 06/06/2016 LUIGI ROGEL MD Ot E78.5 HYPERLIPIDEMIA, UNSPECIFIED 06/06/2016 LUIGI ROGEL MD Ot I10 ESSENTIAL (PRIMARY) HYPERTENSION 06/06/2016 LUIGI ROGEL MD Ot 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 06/06/2016 LUIGI ROGEL MD Ot Z45.2 ENCOUNTER FOR ADJUSTMENT AND MANAGEMENT 06/06/2016 LUIGI ROGEL MD Ot 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 06/06/2016 LUIGI ROGEL MD Ot Z79.899 OTHER GENERAL II FARMWORKER (CURRENT) DRUG THERAPY 06/06/2016 LUIGI ROGEL MD Ot Z95.1 PRESENCE OF AORTOCORONARY BYPASS GRAFT 06/07/2016 Ot V72.84 EXAM PRE- OPERATIVE NOS 06/07/2016 LUIGI ROGEL MD Ot 204.10 CHRONIC LYMPHOID LEUKEMIA, 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 06/07/2016 LUIGI ROGEL MD Ot 562.10 DIVERTICULOSIS COLON (W/O MENT OF HEMORR 06/07/2016 LUIGI ROGEL MD Ot 571.8 CHRONIC LIVER DIS NEC 06/07/2016 JESUS TESFAYE Ot C91.10 CHRONIC LYMPHOCYTIC LEUK OF B-CELL TYPE 06/07/2016 JESUS TESFAYE Ot E11.9 TYPE 2 DIABETES MELLITUS WITHOUT COMPLIC 06/07/2016 JESUS TESFAYE Ot E78.5 HYPERLIPIDEMIA, UNSPECIFIED 06/07/2016 JESUS TESFAYE Ot I12.9 HYPERTENSIVE CHRONIC KIDNEY DISEASE W ST 06/07/2016 JESUS TESFAYE Ot 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 06/07/2016 JESUS TESFAYE Ot Z79.01 ALF (CURRENT) USE OF 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 06/07/2016 JESUS TESFAYE Ot Z79.899 OTHER GENERAL II FARMWORKER (CURRENT) DRUG THERAPY 06/07/2016 JESUS TESFAYE Ot Z95.1 PRESENCE OF AORTOCORONARY BYPASS GRAFT 06/07/2016 KINJAL PORTER MD Ot C91.10 CHRONIC LYMPHOCYTIC LEUK OF B-CELL TYPE 06/07/2016 KINJAL PORTER MD Ot Z01.818 ENCOUNTER FOR OTHER PREPROCEDURAL EXAMIN 06/07/2016 LUIGI ROGEL MD Ot C91.10 CHRONIC LYMPHOCYTIC LEUK OF B-CELL TYPE 06/07/2016 LUIGI ROGEL MD Ot E11.9 TYPE 2 DIABETES MELLITUS WITHOUT COMPLIC 06/07/2016 LUIGI ROGEL MD Ot E78.5 HYPERLIPIDEMIA, UNSPECIFIED 06/07/2016 LUIGI ROGEL MD Ot I10 ESSENTIAL (PRIMARY) HYPERTENSION 06/07/2016 LUIGI ROGEL MD Ot 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 06/07/2016 LUGII ROGEL MD Ot Z45.2 ENCOUNTER FOR ADJUSTMENT AND MANAGEMENT 06/07/2016 LUIGI ROGEL MD Ot Z79.01 ALF (CURRENT) USE OF 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 06/07/2016 LUIGI ROGEL MD Ot Z79.899 OTHER GENERAL II FARMWORKER (CURRENT) DRUG THERAPY 06/07/2016 LUIGI ROGEL MD Ot Z95.1 PRESENCE OF AORTOCORONARY BYPASS GRAFT 06/07/2016 Ot 442.2 ILIAC ARTERY ANEURYSM 06/07/2016 Ot 562.10 DIVERTICULOSIS COLON (W/O MENT OF HEMORR 06/07/2016 Ot 599.70 HEMATURIA, UNSPECIFIED 06/07/2016 Ot 600.00 HYPERTROPHY (BENIGN) OF PROSTATE W/O URI 06/07/2016 Ot V72.84 EXAM PRE- OPERATIVE NOS 06/07/2016 Ot 427.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 06/07/2016 Ot 785.1 PALPITATIONS 06/07/2016 Ot 427.31 ATRIAL FIBRILLATION 06/07/2016 Ot 427.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 06/07/2016 Ot 785.1 PALPITATIONS 06/07/2016 OSCAR VALENCIA GEOLOGICAL ENGINEERING TEACHER Ot 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 06/07/2016 OSCAR VALENCIA GEOLOGICAL ENGINEERING TEACHER Ot 427.31 ATRIAL FIBRILLATION 06/07/2016 OSCAR VALENCIA GEOLOGICAL ENGINEERING TEACHER Ot V45.81 AORTOCORONARY BYPASS 06/07/2016 ANATOLIY LUNA GEOLOGICAL ENGINEERING TEACHER Ot 786.09 RESPIRATORY ABNORM NEC 06/07/2016 ANATOLIY LUNA GEOLOGICAL ENGINEERING TEACHER Ot 786.2 COUGH 06/07/2016 Ot V72.84 EXAM PRE- OPERATIVE NOS 06/07/2016 DEIDRE AMIN ANALYTICS ASSOCIATE Ot 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 INFARCT 06/07/2016 DEIDRE AMIN ANALYTICS ASSOCIATE Ot 780.8 GENERALIZED HYPERHIDROSIS 06/07/2016 ALEX CHANDLER GEOLOGICAL ENGINEERING TEACHER Ot 288.61 LYMPHOCYTOSIS (SYMPTOMATIC) 06/07/2016 PEBBLES FRANCO, LUIGI Foote Ot 204.10 CHRONIC LYMPHOID LEUKEMIA, 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 06/07/2016 PEBBLES FRANCO, LUIGI Foote Ot 562.10 DIVERTICULOSIS COLON (W/O MENT OF HEMORR 06/07/2016 PEBBLES FRANCO, LUIGI Foote Ot 571.8 CHRONIC LIVER DIS NEC 06/07/2016 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 Ot C91.10 CHRONIC LYMPHOCYTIC LEUK OF B-CELL TYPE 06/07/2016 JESUS TESFAYEP Ot E11.9 TYPE 2 DIABETES MELLITUS WITHOUT COMPLIC 06/07/2016 JESUS TESFAYEP Ot E78.5 HYPERLIPIDEMIA, UNSPECIFIED 06/07/2016 JESUS TESFAYEP Ot I12.9 HYPERTENSIVE CHRONIC KIDNEY DISEASE W ST 06/07/2016 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 Ot 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 06/07/2016 TESFAYEJESUS Arreguin RUPINDER Ot 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 06/07/2016 TESFAYEJESUS Arreguin RUPINDER Ot Z79.899 OTHER ALF (CURRENT) DRUG THERAPY 06/07/2016 TESFAYEJESUS Arreguin RUPINDER Ot Z95.1 PRESENCE OF AORTOCORONARY BYPASS GRAFT 06/07/2016 KINJAL PORTER MD Ot C91.10 CHRONIC LYMPHOCYTIC LEUK OF B-CELL TYPE 06/07/2016 KINJAL PORTER MD Ot Z01.818 ENCOUNTER FOR OTHER PREPROCEDURAL EXAMIN 06/07/2016 LUIGI ROGEL MD Ot C91.10 CHRONIC LYMPHOCYTIC LEUK OF B-CELL TYPE 06/07/2016 LUIGI ROGEL MD Ot E11.9 TYPE 2 DIABETES MELLITUS WITHOUT COMPLIC 06/07/2016 LUIGI ROGEL MD Ot E78.5 HYPERLIPIDEMIA, UNSPECIFIED 06/07/2016 LUIGI ROGEL MD Ot I10 ESSENTIAL (PRIMARY) HYPERTENSION 06/07/2016 LUIGI ROGEL MD Ot 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 06/07/2016 LUIGI ROGEL MD Ot Z45.2 ENCOUNTER FOR ADJUSTMENT AND MANAGEMENT 06/07/2016 LUIGI ROGEL MD Ot Z79.01 ALF (CURRENT) USE OF 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 06/07/2016 LUIGI ROGEL MD Ot Z79.899 OTHER ALF (CURRENT) DRUG THERAPY 06/07/2016 LUIGI ROGEL MD Ot Z95.1 PRESENCE OF AORTOCORONARY BYPASS GRAFT 06/11/2016 MADYSON MARTINEZ MD Ot K57.90 DVRTCLOS OF INTEST, PART UNSP, W/O PERF 06/11/2016 MADYSON MARTINEZ MD Ot K76.0 FATTY (CHANGE OF) LIVER, NOT ELSEWHERE C 06/11/2016 MADYSON MARTINEZ MD Ot N40.0 ENLARGED PROSTATE WITHOUT LOWER URINARY 06/11/2016 MADYSON MARTINEZ MD Ot R31.9 HEMATURIA, UNSPECIFIED 07/02/2016 MADYSON MARTINEZ MD Ot K57.90 DVRTCLOS OF INTEST, PART UNSP, W/O PERF 07/02/2016 MADYSON MARTINEZ MD Ot K76.0 FATTY (CHANGE OF) LIVER, NOT ELSEWHERE C 07/02/2016 MADYSON MARTINEZ MD Ot N40.0 ENLARGED PROSTATE WITHOUT LOWER URINARY 07/02/2016 MADYSON MARTINEZ MD Ot R31.9 HEMATURIA, UNSPECIFIED 08/05/2016 MADYSON MARTINEZ MD Ot K57.90 DVRTCLOS OF INTEST, PART UNSP, W/O PERF 08/05/2016 MADYSON MARTINEZ MD Ot K76.0 FATTY (CHANGE OF) LIVER, NOT ELSEWHERE C 08/05/2016 MADYSON MARTINEZ MD Ot N40.0 ENLARGED PROSTATE WITHOUT LOWER URINARY 08/05/2016 MADYSON MARTINEZ MD Ot R31.9 HEMATURIA, UNSPECIFIED 08/08/2016 Ot V72.84 EXAM PRE- OPERATIVE NOS 08/08/2016 PEBBLES FRANCO, LUIGI Foote Ot 204.10 CHRONIC LYMPHOID LEUKEMIA, 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 08/08/2016 PEBBLES FRANCO, LUIGI Foote Ot 562.10 DIVERTICULOSIS COLON (W/O MENT OF HEMORR 08/08/2016 PEBBLES FRANCO, LUIGI Foote Ot 571.8 CHRONIC LIVER DIS NEC 08/08/2016 JESUS TESFAYEP Ot C91.10 CHRONIC LYMPHOCYTIC LEUK OF B-CELL TYPE 08/08/2016 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 Ot E11.9 TYPE 2 DIABETES MELLITUS WITHOUT COMPLIC 08/08/2016 JESUS TESFAYEP Ot E78.5 HYPERLIPIDEMIA, UNSPECIFIED 08/08/2016 JESUS TESFAYEP Ot I12.9 HYPERTENSIVE CHRONIC KIDNEY DISEASE W ST 08/08/2016 JESUS TESFAYEP Ot 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 08/08/2016 JESUS TESFAYEP Ot 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 08/08/2016 JESUS TESFAYEP Ot Z79.899 OTHER ALF (CURRENT) DRUG THERAPY 08/08/2016 JESUS TESFAYEP Ot Z95.1 PRESENCE OF AORTOCORONARY BYPASS GRAFT 08/08/2016 CHARLOTTE FRANCO, KINJAL Anna Ot C91.10 CHRONIC LYMPHOCYTIC LEUK OF B-CELL TYPE 08/08/2016 CHARLOTTE FRANCO, KINJAL Anna Ot Z01.818 ENCOUNTER FOR OTHER PREPROCEDURAL EXAMIN 08/08/2016 PEBBLES FRANCO, LUIGI Foote Ot C91.10 CHRONIC LYMPHOCYTIC LEUK OF B-CELL TYPE 08/08/2016 LUIGI ROGEL MD Ot E11.9 TYPE 2 DIABETES MELLITUS WITHOUT COMPLIC 08/08/2016 LUIGI ROGEL MD Ot E78.5 HYPERLIPIDEMIA, UNSPECIFIED 08/08/2016 LUIGI ROGEL MD Ot I10 ESSENTIAL (PRIMARY) HYPERTENSION 08/08/2016 LUIGI ROGEL MD Ot 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 08/08/2016 LUIGI ROGEL MD Ot Z45.2 ENCOUNTER FOR ADJUSTMENT AND MANAGEMENT 08/08/2016 LUIGI ROGEL MD Ot 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 08/08/2016 LUIGI ROGEL MD Ot Z79.899 OTHER GENERAL II FARMWORKER (CURRENT) DRUG THERAPY 08/08/2016 LUIGI ROGEL MD Ot Z95.1 PRESENCE OF AORTOCORONARY BYPASS GRAFT 08/08/2016 MADYSON MARTINEZ MD, Ot K57.90 DVRTCLOS OF INTEST, PART UNSP, W/O PERF 08/08/2016 MADYSON MARTINEZ MD Ot K76.0 FATTY (CHANGE OF) LIVER, NOT ELSEWHERE C 08/08/2016 MADYSON MARTINEZ MD Ot N40.0 ENLARGED PROSTATE WITHOUT LOWER URINARY 08/08/2016 MADYSON MARTINEZ MD Ot R31.9 HEMATURIA, UNSPECIFIED 08/14/2016 Ot V72.84 EXAM PRE- OPERATIVE NOS 08/14/2016 PEBBLES FRANCO, LUIGI Foote Ot 204.10 CHRONIC LYMPHOID LEUKEMIA, 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 08/14/2016 LUIGI ROGEL MD Ot 562.10 DIVERTICULOSIS COLON (W/O MENT OF HEMORR 08/14/2016 LUIGI ROGEL MD Ot 571.8 CHRONIC LIVER DIS NEC 08/14/2016 JESUS TESFAYE Ot C91.10 CHRONIC LYMPHOCYTIC LEUK OF B-CELL TYPE 08/14/2016 JESUS TESFAYE Ot E11.9 TYPE 2 DIABETES MELLITUS WITHOUT COMPLIC 08/14/2016 JESUS TESFAYE Ot E78.5 HYPERLIPIDEMIA, UNSPECIFIED 08/14/2016 JESUS TESFAYE Ot I12.9 HYPERTENSIVE CHRONIC KIDNEY DISEASE W ST 08/14/2016 JESUS TESFAYE Ot 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 08/14/2016 JESUS TESFAYE Ot 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 08/14/2016 BRIEN JESUS Arreguin RUPINDER Ot Z79.899 OTHER ALF (CURRENT) DRUG THERAPY 08/14/2016 TESFAYE JESUS Arreguin RUPINDER Ot Z95.1 PRESENCE OF AORTOCORONARY BYPASS GRAFT 08/14/2016 CHARLOTTE FRANCO, KINJAL Anna Ot C91.10 CHRONIC LYMPHOCYTIC LEUK OF B-CELL TYPE 08/14/2016 CHARLOTTE FRANCO, KINJAL Anna Ot Z01.818 ENCOUNTER FOR OTHER PREPROCEDURAL EXAMIN 08/14/2016 LUIGI ROGEL MD Ot C91.10 CHRONIC LYMPHOCYTIC LEUK OF B-CELL TYPE 08/14/2016 LUIGI ROGEL MD Ot E11.9 TYPE 2 DIABETES MELLITUS WITHOUT COMPLIC 08/14/2016 LUIGI ROGEL MD Ot E78.5 HYPERLIPIDEMIA, UNSPECIFIED 08/14/2016 LUIGI ROGEL MD Ot I10 ESSENTIAL (PRIMARY) HYPERTENSION 08/14/2016 LUIGI ROGEL MD Ot 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 08/14/2016 LUIGI ROGEL MD Ot Z45.2 ENCOUNTER FOR ADJUSTMENT AND MANAGEMENT 08/14/2016 LUIGI ROGEL MD Ot 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 08/14/2016 LUIGI ROGEL MD Ot Z79.899 OTHER GENERAL II FARMWORKER (CURRENT) DRUG THERAPY 08/14/2016 LUIGI ROGEL MD Ot Z95.1 PRESENCE OF AORTOCORONARY BYPASS GRAFT 08/14/2016 MADYSON MARTINEZ MD Ot K57.90 DVRTCLOS OF INTEST, PART UNSP, W/O PERF 08/14/2016 MADYSON MARTINEZ MD Ot K76.0 FATTY (CHANGE OF) LIVER, NOT ELSEWHERE C 08/14/2016 MADYSON MARTINEZ MD, Ot N40.0 ENLARGED PROSTATE WITHOUT LOWER URINARY 08/14/2016 MADYSON MARTINEZ MD, Ot R31.9 HEMATURIA, UNSPECIFIED 08/23/2016 Ot V72.84 EXAM PRE- OPERATIVE NOS 08/23/2016 LUIGI ROGEL MD Ot 204.10 CHRONIC LYMPHOID LEUKEMIA, 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 08/23/2016 ULIGI ROGEL MD Ot 562.10 DIVERTICULOSIS COLON (W/O MENT OF HEMORR 08/23/2016 LUIGI ROGEL MD Ot 571.8 CHRONIC LIVER DIS NEC 08/23/2016 BRIEN JESUS Arreguin GEOLOGICAL ENGINEERING TEACHER Ot C91.10 CHRONIC LYMPHOCYTIC LEUK OF B-CELL TYPE 08/23/2016 BRIEN JESUS Arreguin GEOLOGICAL ENGINEERING TEACHER Ot E11.9 TYPE 2 DIABETES MELLITUS WITHOUT COMPLIC 08/23/2016 BRIEN JESUS HERRERAP Ot E78.5 HYPERLIPIDEMIA, UNSPECIFIED 08/23/2016 BRIEN JESUS Arreguin GEOLOGICAL ENGINEERING TEACHER Ot I12.9 HYPERTENSIVE CHRONIC KIDNEY DISEASE W ST 08/23/2016 MAURO TESFAYETISH Arreguin GEOLOGICAL ENGINEERING TEACHER Ot 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 08/23/2016 MAURO TESFAYETISH Arreguin GEOLOGICAL ENGINEERING TEACHER Ot Z79.01 ALF (CURRENT) USE OF 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 08/23/2016 MAURO TESFAYETISH Arreguin RUPINDER Ot Z79.899 OTHER GENERAL II FARMWORKER (CURRENT) DRUG THERAPY 08/23/2016 MAURO TESFAYETISH Arreguin RUPINDER Ot Z95.1 PRESENCE OF AORTOCORONARY BYPASS GRAFT 08/23/2016 CHARLOTTE FRANCO, KINJAL Anna Ot C91.10 CHRONIC LYMPHOCYTIC LEUK OF B-CELL TYPE 08/23/2016 CHARLOTTE FRANCO, KINJAL Anna Ot Z01.818 ENCOUNTER FOR OTHER PREPROCEDURAL EXAMIN 08/23/2016 LUIGI ROGEL MD Ot C91.10 CHRONIC LYMPHOCYTIC LEUK OF B-CELL TYPE 08/23/2016 LUIGI ROGEL MD Ot E11.9 TYPE 2 DIABETES MELLITUS WITHOUT COMPLIC 08/23/2016 LUIGI ROGEL MD Ot E78.5 HYPERLIPIDEMIA, UNSPECIFIED 08/23/2016 LUIGI ROGEL MD Ot I10 ESSENTIAL (PRIMARY) HYPERTENSION 08/23/2016 LUIGI ROGEL MD Ot 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 08/23/2016 LUIGI ROGEL MD Ot Z45.2 ENCOUNTER FOR ADJUSTMENT AND MANAGEMENT 08/23/2016 LUIGI ROGEL MD Ot Z79.01 ALF (CURRENT) USE OF 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 08/23/2016 LUIGI ROGEL MD Ot Z79.899 OTHER GENERAL II FARMWORKER (CURRENT) DRUG THERAPY 08/23/2016 LUIGI ROGEL MD Ot Z95.1 PRESENCE OF AORTOCORONARY BYPASS GRAFT 08/23/2016 MADYSON MARTINEZ MD, Ot K57.90 DVRTCLOS OF INTEST, PART UNSP, W/O PERF 08/23/2016 MADYSON MARTINEZ MD Ot K76.0 FATTY (CHANGE OF) LIVER, NOT ELSEWHERE C 08/23/2016 JUAN FRANCO, MADYSON Pro Ot N40.0 ENLARGED PROSTATE WITHOUT LOWER URINARY 08/23/2016 MADYSON MARTINEZ MD Ot R31.9 HEMATURIA, UNSPECIFIED 08/23/2016 LUIGI ROGEL MD Ot C91.10 CHRONIC LYMPHOCYTIC LEUK OF B-CELL TYPE 08/23/2016 LUIGI ROGEL MD Ot E11.9 TYPE 2 DIABETES MELLITUS WITHOUT COMPLIC 08/23/2016 LUIGI ROGEL MD Ot E78.5 HYPERLIPIDEMIA, UNSPECIFIED 08/23/2016 LUIGI ROGEL MD Ot I10 ESSENTIAL (PRIMARY) HYPERTENSION 08/23/2016 LUIGI ROGEL MD Ot 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 08/23/2016 LUIGI ROGEL MD Ot Z45.2 ENCOUNTER FOR ADJUSTMENT AND MANAGEMENT 08/23/2016 LUIGI ROGEL MD Ot Z79.01 ALF (CURRENT) USE OF 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 08/23/2016 LUIGI ROGEL MD Ot Z79.899 OTHER ALF (CURRENT) DRUG THERAPY 08/23/2016 LUIGI ROGEL MD Ot Z95.1 PRESENCE OF AORTOCORONARY BYPASS GRAFT 09/04/2016 Ot V72.84 EXAM PRE- OPERATIVE NOS 09/04/2016 LUIGI ROGEL MD Ot 204.10 CHRONIC LYMPHOID LEUKEMIA, 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 09/04/2016 LUIGI ROGEL MD Ot 562.10 DIVERTICULOSIS COLON (W/O MENT OF HEMORR 09/04/2016 LUIGI ROGEL MD Ot 571.8 CHRONIC LIVER DIS NEC 09/04/2016 JESUS TESFAYE Ot C91.10 CHRONIC LYMPHOCYTIC LEUK OF B-CELL TYPE 09/04/2016 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 Ot E11.9 TYPE 2 DIABETES MELLITUS WITHOUT COMPLIC 09/04/2016 JESUS TESFAYE Ot E78.5 HYPERLIPIDEMIA, UNSPECIFIED 09/04/2016 JESUS TEFSAYEP Ot I12.9 HYPERTENSIVE CHRONIC KIDNEY DISEASE W ST 09/04/2016 JESUS TESFAYEP Ot 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 09/04/2016 JESUS TESFAYEP Ot 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 09/04/2016 JESUS TESFAYEP Ot Z79.899 OTHER GENERAL II FARMWORKER (CURRENT) DRUG THERAPY 09/04/2016 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 Ot Z95.1 PRESENCE OF AORTOCORONARY BYPASS GRAFT 09/04/2016 CHARLOTTE FRANCO, KINJAL Anna Ot C91.10 CHRONIC LYMPHOCYTIC LEUK OF B-CELL TYPE 09/04/2016 KINJAL PORTER MD Ot Z01.818 ENCOUNTER FOR OTHER PREPROCEDURAL EXAMIN 09/04/2016 MADYSON MARTINEZ MD, Ot K57.90 DVRTCLOS OF INTEST, PART UNSP, W/O PERF 09/04/2016 MADYSON MARTINEZ MD Ot K76.0 FATTY (CHANGE OF) LIVER, NOT ELSEWHERE C 09/04/2016 MADYSON MARTINEZ MD, Ot N40.0 ENLARGED PROSTATE WITHOUT LOWER URINARY 09/04/2016 MADYSON MARTINEZ MD, Ot R31.9 HEMATURIA, UNSPECIFIED 09/04/2016 LUIGI ROGEL MD, Ot C91.10 CHRONIC LYMPHOCYTIC LEUK OF B-CELL TYPE 09/04/2016 LUIGI ROGEL MD Ot E11.9 TYPE 2 DIABETES MELLITUS WITHOUT COMPLIC 09/04/2016 LUIGI ROGEL MD Ot E78.5 HYPERLIPIDEMIA, UNSPECIFIED 09/04/2016 LUIGI ROGEL MD Ot I10 ESSENTIAL (PRIMARY) HYPERTENSION 09/04/2016 LUIGI ROGEL MD Ot 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 09/04/2016 LUIGI ROGEL MD Ot Z45.2 ENCOUNTER FOR ADJUSTMENT AND MANAGEMENT 09/04/2016 LUIGI ROGEL MD Ot 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 09/04/2016 LUIGI ROGEL MD Ot Z79.899 OTHER GENERAL II FARMWORKER (CURRENT) DRUG THERAPY 09/04/2016 LUIGI ROGEL MD Ot Z95.1 PRESENCE OF AORTOCORONARY BYPASS GRAFT 09/05/2016 LUIGI ROGEL MD Ot C91.10 CHRONIC LYMPHOCYTIC LEUK OF B-CELL TYPE 09/05/2016 LUIGI ROGEL MD Ot E11.9 TYPE 2 DIABETES MELLITUS WITHOUT COMPLIC 09/05/2016 LUIGI ROGEL MD Ot E78.5 HYPERLIPIDEMIA, UNSPECIFIED 09/05/2016 LUIGI ROGEL MD Ot I10 ESSENTIAL (PRIMARY) HYPERTENSION 09/05/2016 LUIGI ROGEL MD Ot 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 09/05/2016 LUIGI ROGEL MD, Ot Z45.2 ENCOUNTER FOR ADJUSTMENT AND MANAGEMENT 09/05/2016 LUIGI ROGEL MD, Ot 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 09/05/2016 LUIGI ROGEL MD, Ot Z79.899 OTHER GENERAL II FARMWORKER (CURRENT) DRUG THERAPY 09/05/2016 LUIGI ROGEL MD, Ot Z95.1 PRESENCE OF AORTOCORONARY BYPASS GRAFT 09/17/2016 LUIGI ROGEL MD Ot 204.10 CHRONIC LYMPHOID LEUKEMIA, 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 09/17/2016 LUIGI ROGEL MD Ot 250.00 DIAB GISELLA WO COMPL, TYPE II OR UNSPEC TY 09/17/2016 LUIGI ROGEL MD Ot 272.4 HYPERLIPIDEMIA NEC/NOS 09/17/2016 LUIGI ROGEL MD, Ot C91.10 CHRONIC LYMPHOCYTIC LEUK OF B-CELL TYPE 09/17/2016 LUIGI ROGEL MD, Ot E11.9 TYPE 2 DIABETES MELLITUS WITHOUT COMPLIC 09/17/2016 LUIGI ROGEL MD, Ot E78.5 HYPERLIPIDEMIA, UNSPECIFIED 09/17/2016 LUIGI ROGEL MD, Ot I12.9 HYPERTENSIVE CHRONIC KIDNEY DISEASE W ST 09/17/2016 LUIGI ROGEL MD, Ot 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 09/17/2016 LUIGI ROGEL MD Ot V45.81 AORTOCORONARY BYPASS 09/17/2016 LUIGI ROGEL MD, Ot V58.61 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S,LT,CURRENT USE 09/17/2016 LUIGI ROGEL MD, Ot V58.69 OTH MED,LT,CURRENT USE 09/17/2016 LUIGI ROGEL MD, Ot Z51.11 ENCOUNTER FOR ANTINEOPLASTIC CHEMOTHERAP 09/17/2016 LUIGI ROGEL MD, Ot Z79.01 ALF (CURRENT) USE OF 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 09/17/2016 LUIGI ROGEL MD, Ot Z79.899 OTHER ALF (CURRENT) DRUG THERAPY 09/17/2016 LUIGI ROGEL MD, Ot Z95.1 PRESENCE OF AORTOCORONARY BYPASS GRAFT 12/03/2016 LUIGI ROGEL MD, Ot C91.10 CHRONIC LYMPHOCYTIC LEUK OF B-CELL TYPE 12/03/2016 LUIGI ROGEL MD, Ot E11.9 TYPE 2 DIABETES MELLITUS WITHOUT COMPLIC 12/03/2016 LUIGI ROGEL MD, Ot E78.5 HYPERLIPIDEMIA, UNSPECIFIED 12/03/2016 LUIGI ROGEL MD Ot I10 ESSENTIAL (PRIMARY) HYPERTENSION 12/03/2016 LUIGI ROGEL MD, Ot 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 12/03/2016 LUIGI ROGEL MD, Ot Z45.2 ENCOUNTER FOR ADJUSTMENT AND MANAGEMENT 12/03/2016 LUIGI ROGEL MD, Ot Z79.01 ALF (CURRENT) USE OF 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 12/03/2016 LUIGI ROGEL MD, Ot Z79.899 OTHER ALF (CURRENT) DRUG THERAPY 12/03/2016 LUIGI ROGEL MD Ot Z95.1 PRESENCE OF AORTOCORONARY BYPASS GRAFT 12/04/2016 LUIGI ROGEL MD, Ot C91.10 CHRONIC LYMPHOCYTIC LEUK OF B-CELL TYPE 12/04/2016 LUIGI ROGEL MD Ot E11.9 TYPE 2 DIABETES MELLITUS WITHOUT COMPLIC 12/04/2016 LUIGI ROGEL MD, Ot E78.5 HYPERLIPIDEMIA, UNSPECIFIED 12/04/2016 LUIGI ROGEL MD Ot I10 ESSENTIAL (PRIMARY) HYPERTENSION 12/04/2016 LUIIG ROGEL MD, Ot 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 12/04/2016 LUIGI ROGEL MD, Ot Z45.2 ENCOUNTER FOR ADJUSTMENT AND MANAGEMENT 12/04/2016 LUIGI ROGEL MD Ot 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 12/04/2016 LUIGI ROGEL MD, Ot Z79.899 OTHER ALF (CURRENT) DRUG THERAPY 12/04/2016 LUIGI ROGEL MD Ot Z95.1 PRESENCE OF AORTOCORONARY BYPASS GRAFT 12/26/2016 LUIGI ROGEL MD, Ot C91.10 CHRONIC LYMPHOCYTIC LEUK OF B-CELL TYPE 12/26/2016 LUIGI ROGEL MD Ot E11.9 TYPE 2 DIABETES MELLITUS WITHOUT COMPLIC 12/26/2016 LUIGI ROGEL MD Ot E78.5 HYPERLIPIDEMIA, UNSPECIFIED 12/26/2016 LUIGI ROGEL MD Ot I10 ESSENTIAL (PRIMARY) HYPERTENSION 12/26/2016 LUIGI ROGEL MD Ot 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 12/26/2016 LUIGI ROGEL MD Ot Z45.2 ENCOUNTER FOR ADJUSTMENT AND MANAGEMENT 12/26/2016 LUIGI ROGEL MD, Ot Z79.01 ALF (CURRENT) USE OF 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 12/26/2016 LUIGI ROGEL MD Ot Z79.899 OTHER ALF (CURRENT) DRUG THERAPY 12/26/2016 LUIGI ROGEL MD Ot Z95.1 PRESENCE OF AORTOCORONARY BYPASS GRAFT 12/26/2016 Ot 442.2 ILIAC ARTERY ANEURYSM 12/26/2016 Ot 562.10 DIVERTICULOSIS COLON (W/O MENT OF HEMORR 12/26/2016 Ot 599.70 HEMATURIA, UNSPECIFIED 12/26/2016 Ot 600.00 HYPERTROPHY (BENIGN) OF PROSTATE W/O URI 12/26/2016 Ot V72.84 EXAM PRE- OPERATIVE NOS 12/26/2016 Ot 427.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 12/26/2016 Ot 785.1 PALPITATIONS 12/26/2016 Ot 427.31 ATRIAL FIBRILLATION 12/26/2016 Ot 427.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 12/26/2016 Ot 785.1 PALPITATIONS 12/26/2016 OSCAR VALENCIA GEOLOGICAL ENGINEERING TEACHER Ot 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 12/26/2016 OSCAR VALENCIA GEOLOGICAL ENGINEERING TEACHER Ot 427.31 ATRIAL FIBRILLATION 12/26/2016 OSCAR VALENCIA GEOLOGICAL ENGINEERING TEACHER Ot V45.81 AORTOCORONARY BYPASS 12/26/2016 ANATOLIY LUNA GEOLOGICAL ENGINEERING TEACHER Ot 786.09 RESPIRATORY ABNORM NEC 12/26/2016 ANATOLIY LUNA GEOLOGICAL ENGINEERING TEACHER Ot 786.2 COUGH 12/26/2016 Ot V72.84 EXAM PRE- OPERATIVE NOS 12/26/2016 DEIDRE AMIN ANALYTICS ASSOCIATE Ot 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 INFARCT 12/26/2016 DEIDRE AMIN ANALYTICS ASSOCIATE Ot 780.8 GENERALIZED HYPERHIDROSIS 12/26/2016 ALEX CHANDLER GEOLOGICAL ENGINEERING TEACHER Ot 288.61 LYMPHOCYTOSIS (SYMPTOMATIC) 12/26/2016 PEBBLES FRANCO, LUIGI Foote Ot 204.10 CHRONIC LYMPHOID LEUKEMIA, 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 12/26/2016 PEBBLES FRANCO, LUIGI Foote Ot 562.10 DIVERTICULOSIS COLON (W/O MENT OF HEMORR 12/26/2016 PEBBLES FRANCO, LUIGI Foote Ot 571.8 CHRONIC LIVER DIS NEC 12/26/2016 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 Ot C91.10 CHRONIC LYMPHOCYTIC LEUK OF B-CELL TYPE 12/26/2016 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 Ot E11.9 TYPE 2 DIABETES MELLITUS WITHOUT COMPLIC 12/26/2016 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 Ot E78.5 HYPERLIPIDEMIA, UNSPECIFIED 12/26/2016 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 Ot I12.9 HYPERTENSIVE CHRONIC KIDNEY DISEASE W ST 12/26/2016 MAURO TESFAYETISH Arreguin RUPINDER Ot 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 12/26/2016 MAURO TESFAYETISH Arreguin RUPINDER Ot Z79.01 ALF (CURRENT) USE OF 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 12/26/2016 BRIEN JESUS Arreguin RUPINDER Ot Z79.899 OTHER ALF (CURRENT) DRUG THERAPY 12/26/2016 BRIEN JESUS Arreguin RUPINDER Ot Z95.1 PRESENCE OF AORTOCORONARY BYPASS GRAFT 12/26/2016 CHARLOTTE FRANCO, KINJAL Anna Ot C91.10 CHRONIC LYMPHOCYTIC LEUK OF B-CELL TYPE 12/26/2016 KINJAL PORTER MD Ot Z01.818 ENCOUNTER FOR OTHER PREPROCEDURAL EXAMIN 12/26/2016 MADYSON MARTINEZ MD, Ot K57.90 DVRTCLOS OF INTEST, PART UNSP, W/O PERF 12/26/2016 MADYSON MARTINEZ MD Ot K76.0 FATTY (CHANGE OF) LIVER, NOT ELSEWHERE C 12/26/2016 MADYSON MARTINEZ MD, Ot N40.0 ENLARGED PROSTATE WITHOUT LOWER URINARY 12/26/2016 MADYSON MARTINEZ MD, Ot R31.9 HEMATURIA, UNSPECIFIED 12/26/2016 LUIGI ROGEL MD Ot C91.10 CHRONIC LYMPHOCYTIC LEUK OF B-CELL TYPE 12/26/2016 LUIGI ROGEL MD Ot E11.9 TYPE 2 DIABETES MELLITUS WITHOUT COMPLIC 12/26/2016 LUIGI ROGEL MD Ot E78.5 HYPERLIPIDEMIA, UNSPECIFIED 12/26/2016 LUIGI ROGEL MD Ot I10 ESSENTIAL (PRIMARY) HYPERTENSION 12/26/2016 LUIGI ROGEL MD Ot 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 12/26/2016 LUIGI ROGEL MD Ot Z45.2 ENCOUNTER FOR ADJUSTMENT AND MANAGEMENT 12/26/2016 LUIGI ROGEL MD Ot 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 12/26/2016 LUIGI ROGEL MD Ot Z79.899 OTHER ALF (CURRENT) DRUG THERAPY 12/26/2016 LUIGI ROGEL MD Ot Z95.1 PRESENCE OF AORTOCORONARY BYPASS GRAFT 12/26/2016 Ot 442.2 ILIAC ARTERY ANEURYSM 12/26/2016 Ot 562.10 DIVERTICULOSIS COLON (W/O MENT OF HEMORR 12/26/2016 Ot 599.70 HEMATURIA, UNSPECIFIED 12/26/2016 Ot 600.00 HYPERTROPHY (BENIGN) OF PROSTATE W/O URI 12/26/2016 DEIDRE AMIN APRN Ot 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 INFARCT 12/26/2016 DEIDRE AMIN APRN Ot 780.8 GENERALIZED HYPERHIDROSIS 12/26/2016 ALEX CHANDLER Ot 288.61 LYMPHOCYTOSIS (SYMPTOMATIC) 12/26/2016 PEBBLES FRANCO, LUIGI Foote Ot 204.10 CHRONIC LYMPHOID LEUKEMIA, 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 12/26/2016 PEBBLES FRANCO, LUIGI Foote Ot 562.10 DIVERTICULOSIS COLON (W/O MENT OF HEMORR 12/26/2016 PEBBLES FRANCO, LUIGI Foote Ot 571.8 CHRONIC LIVER DIS NEC 12/26/2016 JESUS TESFAYE Ot C91.10 CHRONIC LYMPHOCYTIC LEUK OF B-CELL TYPE 12/26/2016 JESUS TESFAYE Ot E11.9 TYPE 2 DIABETES MELLITUS WITHOUT COMPLIC 12/26/2016 JESUS TESFAYE Ot E78.5 HYPERLIPIDEMIA, UNSPECIFIED 12/26/2016 JESUS TESFAYE Ot I12.9 HYPERTENSIVE CHRONIC KIDNEY DISEASE W ST 12/26/2016 JESUS TESFAYE Ot 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 12/26/2016 JESUS TESFAYE Ot 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 12/26/2016 JESUS TESFAYEP Ot Z79.899 OTHER ALF (CURRENT) DRUG THERAPY 12/26/2016 JESUS TESFAYE Ot Z95.1 PRESENCE OF AORTOCORONARY BYPASS GRAFT 12/26/2016 CHARLOTTE FRANCO, KINJAL Anna Ot C91.10 CHRONIC LYMPHOCYTIC LEUK OF B-CELL TYPE 12/26/2016 CHARLOTTE FRANCO, KINJAL Anna Ot Z01.818 ENCOUNTER FOR OTHER PREPROCEDURAL EXAMIN 12/27/2016 ALEX CHANDLER Ot J18.9 PNEUMONIA, UNSPECIFIED ORGANISM 12/27/2016 ALEX CHANDLER Ot R05 COUGH 01/16/2017 ALEX CHANDLER Ot J18.9 PNEUMONIA, UNSPECIFIED ORGANISM 01/16/2017 ALEX CHANDLER Ot R05 COUGH 01/30/2017 KEN PRABHAKAR DO Ot M25.511 PAIN IN RIGHT SHOULDER 01/30/2017 KEN PRABHAKAR DO F Ot M75.111 INCOMPLETE ROTATR-CUFF TEAR/RUPTR OF R S 03/05/2017 KINJAL PORTER MD, Ot C85.10 UNSPECIFIED B-CELL LYMPHOMA, UNSPECIFIED 03/05/2017 KINJAL PORTER MD Ot Z01.818 ENCOUNTER FOR OTHER PREPROCEDURAL EXAMIN 03/05/2017 KINJAL PORTER MD Ot Z11.2 ENCOUNTER FOR SCREENING FOR OTHER BACTER 03/06/2017 KINJAL PORTER MD, Ot C85.10 UNSPECIFIED B-CELL LYMPHOMA, UNSPECIFIED 03/06/2017 KINJAL PORTER MD Ot Z01.818 ENCOUNTER FOR OTHER PREPROCEDURAL EXAMIN 03/06/2017 KINJAL PORTER MD, Ot Z11.2 ENCOUNTER FOR SCREENING FOR OTHER BACTER 03/12/2017 KINJAL PORTER MD Ot Z08 ENCNTR FOR FOLLOW-UP EXAM AFTER TRTMT FO 03/12/2017 KINJAL PORTER MD, Ot Z85.72 PERSONAL HISTORY OF NON-HODGKIN LYMPHOMA 03/13/2017 KINJAL PORTER MD Ot Z08 ENCNTR FOR FOLLOW-UP EXAM AFTER TRTMT FO 03/13/2017 KINJAL PORTER MD Ot Z85.72 PERSONAL HISTORY OF NON-HODGKIN LYMPHOMA 03/25/2017 LUIGI ROGEL MD Ot C91.10 CHRONIC LYMPHOCYTIC LEUK OF B-CELL TYPE 03/25/2017 LUGII ROGEL MD Ot E11.9 TYPE 2 DIABETES MELLITUS WITHOUT COMPLIC 03/25/2017 LUIGI ROGEL MD Ot E78.5 HYPERLIPIDEMIA, UNSPECIFIED 03/25/2017 LUIGI ROGEL MD Ot I10 ESSENTIAL (PRIMARY) HYPERTENSION 03/25/2017 LUIGI ROGEL MD, Ot 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 03/25/2017 LUIGI ROGEL MD Ot Z45.2 ENCOUNTER FOR ADJUSTMENT AND MANAGEMENT 03/25/2017 LUIGI ROGEL MD Ot 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9 TYPE 2 DIABETES MELLITUS WITHOUT COMPLIC 05/27/2017 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 Ot E78.5 HYPERLIPIDEMIA, UNSPECIFIED 05/27/2017 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 Ot I12.9 HYPERTENSIVE CHRONIC KIDNEY DISEASE W ST 05/27/2017 JESUS TESFAYE Ot 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 05/27/2017 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 Ot 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 05/27/2017 JESUS TESFAYEP Ot Z79.899 OTHER GENERAL II FARMWORKER (CURRENT) DRUG THERAPY 05/27/2017 JESUS TESFAYEP Ot Z95.1 PRESENCE OF AORTOCORONARY BYPASS GRAFT 05/27/2017 CHARLOTTE FRANCO, KINJAL Anna Ot C91.10 CHRONIC LYMPHOCYTIC LEUK OF B-CELL TYPE 05/27/2017 CHARLOTTE FRANCO, KINJAL Anna Ot Z01.818 ENCOUNTER FOR OTHER PREPROCEDURAL EXAMIN 05/27/2017 MADYSON MARTINEZ MD, Ot K57.90 DVRTCLOS OF INTEST, PART UNSP, W/O PERF 05/27/2017 MADYSON MARTINEZ MD Ot K76.0 FATTY (CHANGE OF) LIVER, NOT ELSEWHERE C 05/27/2017 MADYSON MARTINEZ MD Ot N40.0 ENLARGED PROSTATE WITHOUT LOWER URINARY 05/27/2017 MADYSON MARTINEZ MD, Ot R31.9 HEMATURIA, UNSPECIFIED 05/27/2017 LUIGI ROGEL MD Ot C91.10 CHRONIC LYMPHOCYTIC LEUK OF B-CELL TYPE 05/27/2017 LUIGI ROGEL MD Ot E11.9 TYPE 2 DIABETES MELLITUS WITHOUT COMPLIC 05/27/2017 LUIGI ROGEL MD Ot E78.5 HYPERLIPIDEMIA, UNSPECIFIED 05/27/2017 LUIGI ROGEL MD Ot I10 ESSENTIAL (PRIMARY) HYPERTENSION 05/27/2017 LUIGI ROGEL MD, Ot 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 05/27/2017 LUIGI ROGEL MD, Ot Z45.2 ENCOUNTER FOR ADJUSTMENT AND MANAGEMENT 05/27/2017 LUIGI ROGEL MD, Ot 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 05/27/2017 LUIGI ROGEL MD, Ot Z79.899 OTHER ALF (CURRENT) DRUG THERAPY 05/27/2017 LUIGI ROGEL MD Ot Z95.1 PRESENCE OF AORTOCORONARY BYPASS GRAFT 05/28/2017 LUIGI ROGEL MD, Ot C91.10 CHRONIC LYMPHOCYTIC LEUK OF B-CELL TYPE 05/28/2017 LUIGI ROGEL MD, Ot E11.9 TYPE 2 DIABETES MELLITUS WITHOUT COMPLIC 05/28/2017 LUIGI ROGEL MD, Ot E78.5 HYPERLIPIDEMIA, UNSPECIFIED 05/28/2017 LUIGI ROGEL MD, Ot I10 ESSENTIAL (PRIMARY) HYPERTENSION 05/28/2017 LUIGI ROGEL MD, Ot 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 05/28/2017 LUIGI ROGEL MD, Ot Z45.2 ENCOUNTER FOR ADJUSTMENT AND MANAGEMENT 05/28/2017 LUIGI ROGEL MD, Ot Z79.01 ALF (CURRENT) USE OF 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 05/28/2017 LUIGI ROGEL MD, Ot Z79.899 OTHER ALF (CURRENT) DRUG THERAPY 05/28/2017 LUIGI ROGEL MD, Ot Z95.1 PRESENCE OF AORTOCORONARY BYPASS GRAFT 08/16/2017 LUIGI ROGEL MD, Ot C91.10 CHRONIC LYMPHOCYTIC LEUK OF B-CELL TYPE 08/16/2017 LUIGI ROGEL MD, Ot E11.9 TYPE 2 DIABETES MELLITUS WITHOUT COMPLIC 08/16/2017 LUIGI ROGEL MD, Ot E78.5 HYPERLIPIDEMIA, UNSPECIFIED 08/16/2017 LUIGI ROGEL MD Ot I10 ESSENTIAL (PRIMARY) HYPERTENSION 08/16/2017 LUIGI ROGEL MD Ot 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 08/16/2017 LUIGI ROGEL MD, Ot Z79.01 ALF (CURRENT) USE OF 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 08/16/2017 LUIGI ROGEL MD, Ot Z79.899 OTHER ALF (CURRENT) DRUG THERAPY 08/16/2017 LUIGI ROGEL MD Ot Z95.1 PRESENCE OF AORTOCORONARY BYPASS GRAFT 08/25/2017 PEBBLES MD, LUIGI K Ot C91.10 CHRONIC LYMPHOCYTIC LEUK OF B-CELL TYPE 08/25/2017 LUIGI ROGEL MD Ot E11.9 TYPE 2 DIABETES MELLITUS WITHOUT COMPLIC 08/25/2017 LUIGI ROGEL MD Ot E78.5 HYPERLIPIDEMIA, UNSPECIFIED 08/25/2017 LUIGI ROGEL MD Ot I10 ESSENTIAL (PRIMARY) HYPERTENSION 08/25/2017 LUIGI ROGEL MD Ot 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 08/25/2017 LUIGI ROGEL MD Ot 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 08/25/2017 LUIGI ROGEL MD Ot Z79.899 OTHER GENERAL II FARMWORKER (CURRENT) DRUG THERAPY 08/25/2017 LUIGI ROGEL MD Ot Z95.1 PRESENCE OF AORTOCORONARY BYPASS GRAFT 08/25/2017 Ot V72.84 EXAM PRE- OPERATIVE NOS 08/25/2017 LUIGI ROGEL MD Ot 204.10 CHRONIC LYMPHOID LEUKEMIA, 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 08/25/2017 LUIGI ROGEL MD Ot 562.10 DIVERTICULOSIS COLON (W/O MENT OF HEMORR 08/25/2017 LUIGI ROGEL MD Ot 571.8 CHRONIC LIVER DIS NEC 08/25/2017 JESUS TESFAYEP Ot C91.10 CHRONIC LYMPHOCYTIC LEUK OF B-CELL TYPE 08/25/2017 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 Ot E11.9 TYPE 2 DIABETES MELLITUS WITHOUT COMPLIC 08/25/2017 JESUS TESFAYEP Ot E78.5 HYPERLIPIDEMIA, UNSPECIFIED 08/25/2017 JESUS TESFAYEP Ot I12.9 HYPERTENSIVE CHRONIC KIDNEY DISEASE W ST 08/25/2017 JESUS TESFAYEP Ot 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 08/25/2017 JESUS TESFAYEP Ot 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 08/25/2017 JESUS TESFAYEP Ot Z79.899 OTHER ALF (CURRENT) DRUG THERAPY 08/25/2017 JESUS TESFAYEP Ot Z95.1 PRESENCE OF AORTOCORONARY BYPASS GRAFT 08/25/2017 KINJAL PORTER MD Ot C91.10 CHRONIC LYMPHOCYTIC LEUK OF B-CELL TYPE 08/25/2017 KINJAL PORTER MD Ot Z01.818 ENCOUNTER FOR OTHER PREPROCEDURAL EXAMIN 08/25/2017 MADYSON MARTINEZ MD, Ot K57.90 DVRTCLOS OF INTEST, PART UNSP, W/O PERF 08/25/2017 MADYSON MARTINEZ MD, Ot K76.0 FATTY (CHANGE OF) LIVER, NOT ELSEWHERE C 08/25/2017 MADYSON MARTINEZ MD, Ot N40.0 ENLARGED PROSTATE WITHOUT LOWER URINARY 08/25/2017 MADYSON MARTINEZ MD, Ot R31.9 HEMATURIA, UNSPECIFIED 08/26/2017 EDMUNDO MITCHELL MD, Ot C91.10 CHRONIC LYMPHOCYTIC LEUK OF B-CELL TYPE 08/26/2017 EDMUNDO MITCHELL MD, Ot E11.9 TYPE 2 DIABETES MELLITUS WITHOUT COMPLIC 08/26/2017 EDMUNDO MITCHELL MD, Ot E78.5 HYPERLIPIDEMIA, UNSPECIFIED 08/26/2017 EDMUNDO MITCHELL MD, Ot I10 ESSENTIAL (PRIMARY) HYPERTENSION 08/26/2017 EDMUNDO MITCHELL MD, Ot 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 08/26/2017 EDMUNDO MITCHELL MD Ot 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 08/26/2017 EDMUNDO MITCHELL MD, Ot Z79.899 OTHER GENERAL II FARMWORKER (CURRENT) DRUG THERAPY 08/26/2017 EDMUNDO MITCHELL MD, Ot Z95.1 PRESENCE OF AORTOCORONARY BYPASS GRAFT 09/03/2017 EDMUNDO MITCHELL MD, Ot C91.10 CHRONIC LYMPHOCYTIC LEUK OF B-CELL TYPE 09/03/2017 EDMUNDO MITCHELL MD Ot E11.9 TYPE 2 DIABETES MELLITUS WITHOUT COMPLIC 09/03/2017 EDMUNDO MITCHELL MD, Ot E78.5 HYPERLIPIDEMIA, UNSPECIFIED 09/03/2017 EDMUNDO MITCHELL MD Ot I10 ESSENTIAL (PRIMARY) HYPERTENSION 09/03/2017 EDMUNDO MITCHELL MD Ot 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 09/03/2017 EDMUNDO MITCHELL MD, Ot Z79.01 ALF (CURRENT) USE OF 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 09/03/2017 EDMUNDO MITCHELL MD, Ot Z79.899 OTHER GENERAL II FARMWORKER (CURRENT) DRUG THERAPY 09/03/2017 EDMUNDO MITCHELL MD, Ot Z95.1 PRESENCE OF AORTOCORONARY BYPASS GRAFT 09/04/2017 JOSE JACOB MD Ot C91.10 CHRONIC LYMPHOCYTIC LEUK OF B-CELL TYPE 09/04/2017 JOSE JACOB MD Ot E11.9 TYPE 2 DIABETES MELLITUS WITHOUT COMPLIC 09/04/2017 JOSE JACOB MD Ot E78.5 HYPERLIPIDEMIA, UNSPECIFIED 09/04/2017 JOSE JACOB MD Ot I10 ESSENTIAL (PRIMARY) HYPERTENSION 09/04/2017 JOSE JACOB MD Ot 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 09/04/2017 JOSE JACOB MD Ot Z79.01 ALF (CURRENT) USE OF 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 09/04/2017 JOSE JACOB MD Ot Z79.899 OTHER ALF (CURRENT) DRUG THERAPY 09/04/2017 JOSE JACOB MD Ot Z95.1 PRESENCE OF AORTOCORONARY BYPASS GRAFT 09/18/2017 Ot V72.84 EXAM PRE- OPERATIVE NOS 09/18/2017 Ot 427.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 09/18/2017 Ot 785.1 PALPITATIONS 09/18/2017 Ot 427.31 ATRIAL FIBRILLATION 09/18/2017 Ot 427.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 09/18/2017 Ot 785.1 PALPITATIONS 09/18/2017 OSCAR VALENCIA Ot 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 09/18/2017 OSCAR VALENCIA Ot 427.31 ATRIAL FIBRILLATION 09/18/2017 OSCAR VALENCIA Ot V45.81 AORTOCORONARY BYPASS 09/18/2017 ANATOLIY LUNA GEOLOGICAL ENGINEERING TEACHER Ot 786.09 RESPIRATORY ABNORM NEC 09/18/2017 ANATOLIY LUNA GEOLOGICAL ENGINEERING TEACHER Ot 786.2 COUGH 09/18/2017 Ot V72.84 EXAM PRE- OPERATIVE NOS 09/18/2017 DEIDRE AMIN ANALYTICS ASSOCIATE Ot 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 INFARCT 09/18/2017 DEIDRE AMIN ANALYTICS ASSOCIATE Ot 780.8 GENERALIZED HYPERHIDROSIS 09/18/2017 ALEX CHANDLER Ot 288.61 LYMPHOCYTOSIS (SYMPTOMATIC) 09/18/2017 PEBBLES FRANCO, LUIGI Foote Ot 204.10 CHRONIC LYMPHOID LEUKEMIA, 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 09/18/2017 PEBBLES FRANCO, LUIGI Foote Ot 562.10 DIVERTICULOSIS COLON (W/O MENT OF HEMORR 09/18/2017 LUIGI ROGEL MD Ot 571.8 CHRONIC LIVER DIS NEC 09/18/2017 MAURO TESFAYEAH S RUPINDER Ot C91.10 CHRONIC LYMPHOCYTIC LEUK OF B-CELL TYPE 09/18/2017 BRIEN JESUS Arreguin RUPINDER Ot E11.9 TYPE 2 DIABETES MELLITUS WITHOUT COMPLIC 09/18/2017 MARUO TESFAYETISH Arreguin RUPINDER Ot E78.5 HYPERLIPIDEMIA, UNSPECIFIED 09/18/2017 MAURO TESFAYETISH Arreguin RUPINDER Ot I12.9 HYPERTENSIVE CHRONIC KIDNEY DISEASE W ST 09/18/2017 MAURO TESFAYETISH Arreguin RUPINDER Ot 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 09/18/2017 MAURO TESFAYETISH Arreguin RUPINDER Ot 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 09/18/2017 MAURO TESFAYETISH Arreguin RUPINDER Ot Z79.899 OTHER ALF (CURRENT) DRUG THERAPY 09/18/2017 MAURO TESFAYETISH Arreguin RUPINDER Ot Z95.1 PRESENCE OF AORTOCORONARY BYPASS GRAFT 09/18/2017 KINJAL PORTER MD, Ot C91.10 CHRONIC LYMPHOCYTIC LEUK OF B-CELL TYPE 09/18/2017 KINJAL PORTER MD, Ot Z01.818 ENCOUNTER FOR OTHER PREPROCEDURAL EXAMIN 09/18/2017 MADYSON MARTINEZ MD, Ot K57.90 DVRTCLOS OF INTEST, PART UNSP, W/O PERF 09/18/2017 MADYSON MARTINEZ MD Ot K76.0 FATTY (CHANGE OF) LIVER, NOT ELSEWHERE C 09/18/2017 MADYSON MARTINEZ MD Ot N40.0 ENLARGED PROSTATE WITHOUT LOWER URINARY 09/18/2017 MADYSON MARTINEZ MD Ot R31.9 HEMATURIA, UNSPECIFIED 09/18/2017 ALEX CHANDLER Ot J18.9 PNEUMONIA, UNSPECIFIED ORGANISM 09/18/2017 ALEX CHANDLER Ot R05 COUGH 09/18/2017 JOSE JACOB MD, Ot C91.10 CHRONIC LYMPHOCYTIC LEUK OF B-CELL TYPE 09/18/2017 JOSE JACOB MD, Ot E11.9 TYPE 2 DIABETES MELLITUS WITHOUT COMPLIC 09/18/2017 JOSE JACOB MD, Ot E78.5 HYPERLIPIDEMIA, UNSPECIFIED 09/18/2017 JOSE JACOB MD Ot I10 ESSENTIAL (PRIMARY) HYPERTENSION 09/18/2017 JOSE JACOB MD, Ot 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 09/18/2017 JOSE JACOB MD Ot 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 09/18/2017 JOSE JACOB MD Ot Z79.899 OTHER GENERAL II FARMWORKER (CURRENT) DRUG THERAPY 09/18/2017 JOSE JACOB MD Ot Z95.1 PRESENCE OF AORTOCORONARY BYPASS GRAFT 10/10/2017 JOSE JACOB MD Ot C91.10 CHRONIC LYMPHOCYTIC LEUK OF B-CELL TYPE 10/10/2017 JOSE JACOB MD Ot E11.9 TYPE 2 DIABETES MELLITUS WITHOUT COMPLIC 10/10/2017 JOSE JACOB MD Ot E78.5 HYPERLIPIDEMIA, UNSPECIFIED 10/10/2017 JOSE JACOB MD Ot I10 ESSENTIAL (PRIMARY) HYPERTENSION 10/10/2017 JOSE JACOB MD Ot 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 10/10/2017 JOSE JACOB MD Ot Z79.01 ALF (CURRENT) USE OF 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 10/10/2017 JOSE JACOB MD Ot Z79.899 OTHER GENERAL II FARMWORKER (CURRENT) DRUG THERAPY 10/10/2017 JOSE JACOB MD Ot Z95.1 PRESENCE OF AORTOCORONARY BYPASS GRAFT 10/15/2017 YEHUDA FRANCO FACC, ALI FACP CCDS Ot C91.10 CHRONIC LYMPHOCYTIC LEUK OF B-CELL TYPE 10/15/2017 YEHUDA FRANCO FACC, ALI FACP CCDS Ot E78.4 OTHER HYPERLIPIDEMIA 10/15/2017 YEHUDA FRANCO FACC, ALI FACP CCDS Ot I10 ESSENTIAL (PRIMARY) HYPERTENSION 10/15/2017 YEHUDA FRANCO FACC, ALI FACP CCDS Ot 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 10/15/2017 YEHUDA FRANCO FACC, ALI FACP CCDS Ot I65.23 OCCLUSION AND STENOSIS OF BILATERAL [place] 10/15/2017 YEHUDA FRANCO FACC, ALI FACP CCDS Ot R07.89 OTHER CHEST PAIN 10/27/2017 JOSE JACOB MD Ot C91.10 CHRONIC LYMPHOCYTIC LEUK OF B-CELL TYPE 10/27/2017 JOSE JACOB MD Ot E11.9 TYPE 2 DIABETES MELLITUS WITHOUT COMPLIC 10/27/2017 JOSE JACOB MD Ot E78.5 HYPERLIPIDEMIA, UNSPECIFIED 10/27/2017 JOSE JACOB MD Ot I10 ESSENTIAL (PRIMARY) HYPERTENSION 10/27/2017 JOSE JACOB MD Ot 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 10/27/2017 JOSE JACOB MD Ot 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 10/27/2017 JOSE JACOB MD Ot Z79.899 OTHER GENERAL II FARMWORKER (CURRENT) DRUG THERAPY 10/27/2017 JOSE JACOB MD Ot Z95.1 PRESENCE OF AORTOCORONARY BYPASS GRAFT 12/02/2017 JOSE JACOB MD Ot C91.10 CHRONIC LYMPHOCYTIC LEUK OF B-CELL TYPE 12/02/2017 JOSE JACOB MD Ot E11.9 TYPE 2 DIABETES MELLITUS WITHOUT COMPLIC 12/02/2017 JOSE JACOB MD Ot E78.5 HYPERLIPIDEMIA, UNSPECIFIED 12/02/2017 JOSE JACOB MD Ot I10 ESSENTIAL (PRIMARY) HYPERTENSION 12/02/2017 JOSE JACOB MD Ot 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 12/02/2017 JOSE JACOB MD Ot 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 12/02/2017 JOSE JACOB MD Ot Z79.899 OTHER ALF (CURRENT) DRUG THERAPY 12/02/2017 JOSE JACOB MD Ot Z95.1 PRESENCE OF AORTOCORONARY BYPASS GRAFT 12/03/2017 JOSE JACOB MD Ot C91.10 CHRONIC LYMPHOCYTIC LEUK OF B-CELL TYPE 12/03/2017 JOSE JACOB MD Ot E11.9 TYPE 2 DIABETES MELLITUS WITHOUT COMPLIC 12/03/2017 JOSE JACOB MD Ot E78.5 HYPERLIPIDEMIA, UNSPECIFIED 12/03/2017 JOSE JACOB MD Ot I10 ESSENTIAL (PRIMARY) HYPERTENSION 12/03/2017 JOSE JACOB MD Ot 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 12/03/2017 JOSE JACOB MD Ot 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 12/03/2017 JOSE JACOB MD Ot Z79.899 OTHER GENERAL II FARMWORKER (CURRENT) DRUG THERAPY 12/03/2017 JOSE JACOB MD Ot Z95.1 PRESENCE OF AORTOCORONARY BYPASS GRAFT 12/12/2017 JOSE JACOB MD Ot C91.10 CHRONIC LYMPHOCYTIC LEUK OF B-CELL TYPE 12/12/2017 JOSE JACOB MD Ot E11.9 TYPE 2 DIABETES MELLITUS WITHOUT COMPLIC 12/12/2017 JOSE JACOB MD Ot E78.5 HYPERLIPIDEMIA, UNSPECIFIED 12/12/2017 JOSE JACOB MD Ot I10 ESSENTIAL (PRIMARY) HYPERTENSION 12/12/2017 JOSE JACOB MD Ot 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 12/12/2017 JOSE JACOB MD Ot 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 12/12/2017 JOSE JACOB MD Ot Z79.899 OTHER ALF (CURRENT) DRUG THERAPY 12/12/2017 JOSE JACOB MD Ot Z95.1 PRESENCE OF AORTOCORONARY BYPASS GRAFT 01/09/2018 JOSE JACOB MD Ot C91.10 CHRONIC LYMPHOCYTIC LEUK OF B-CELL TYPE 01/09/2018 JOSE JACOB MD Ot E11.9 TYPE 2 DIABETES MELLITUS WITHOUT COMPLIC 01/09/2018 JOSE JACOB MD Ot E78.5 HYPERLIPIDEMIA, UNSPECIFIED 01/09/2018 JOSE JACOB MD Ot I10 ESSENTIAL (PRIMARY) HYPERTENSION 01/09/2018 JOSE JACOB MD Ot 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 01/09/2018 JOSE JACOB MD Ot Z79.01 ALF (CURRENT) USE OF 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 01/09/2018 JOSE JACOB MD Ot Z79.899 OTHER ALF (CURRENT) DRUG THERAPY 01/09/2018 JOSE JACOB MD Ot Z95.1 PRESENCE OF AORTOCORONARY BYPASS GRAFT 02/03/2018 ASTRID WISDOM MD Ot E78.00 PURE HYPERCHOLESTEROLEMIA, UNSPECIFIED 02/03/2018 ASTRID WISDOM MD Ot G47.30 SLEEP APNEA, UNSPECIFIED 02/03/2018 ASTRID WISDOM MD Ot 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 02/03/2018 ASTRID WISDOM MD Ot I25.2 OLD MYOCARDIAL INFARCTION 02/03/2018 ASTRID WISDOM MD Ot I48.91 UNSPECIFIED ATRIAL FIBRILLATION 02/03/2018 ASTRID WISDOM MD Ot K21.9 GASTRO-ESOPHAGEAL REFLUX DISEASE WITHOUT 02/03/2018 ASTRID WISDOM MD Ot R10.9 UNSPECIFIED ABDOMINAL PAIN 02/03/2018 ASTRID WISDOM MD Ot S39.012A STRAIN OF MUSCLE, FASCIA AND TENDON OF L 02/03/2018 ASTRID WISDOM MD Ot X58.XXXA EXPOSURE TO OTHER SPECIFIED FACTORS, INI 02/03/2018 ASTRID WISDOM MD Ot 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 02/03/2018 ASTRID WISDOM MD, Ot Z79.82 ALF (CURRENT) USE OF ASPIRIN 02/03/2018 ASTRID WISDOM MD, Ot Z85.6 PERSONAL HISTORY OF LEUKEMIA 02/03/2018 ASTRID WISDOM MD, Ot Z87.19 PERSONAL HISTORY OF OTHER DISEASES OF 02/03/2018 ASTRID WISDOM MD, Ot Z87.891 PERSONAL HISTORY OF NICOTINE DEPENDENCE 02/03/2018 ASTRID WISDOM MD Ot Z95.1 PRESENCE OF AORTOCORONARY BYPASS GRAFT 02/03/2018 ASTRID WISDOM MD Ot Z95.5 PRESENCE OF CORONARY ANGIOPLASTY IMPLANT 02/05/2018 ASTRID WISDOM MD Ot E78.00 PURE HYPERCHOLESTEROLEMIA, UNSPECIFIED 02/05/2018 ASTRID WISDOM MD Ot G47.30 SLEEP APNEA, UNSPECIFIED 02/05/2018 ASTRID WISDOM MD Ot 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 02/05/2018 ASTRID WISDOM MD Ot I25.2 OLD MYOCARDIAL INFARCTION 02/05/2018 ASTRID WISDOM MD Ot I48.91 UNSPECIFIED ATRIAL FIBRILLATION 02/05/2018 ASTRID WISDOM MD Ot K21.9 GASTRO-ESOPHAGEAL REFLUX DISEASE WITHOUT 02/05/2018 ASTRID WISDOM MD Ot R10.9 UNSPECIFIED ABDOMINAL PAIN 02/05/2018 ASTRID WISDOM MD Ot S39.012A STRAIN OF MUSCLE, FASCIA AND TENDON OF L 02/05/2018 ASTRID WISDOM MD Ot X58.XXXA EXPOSURE TO OTHER SPECIFIED FACTORS, INI 02/05/2018 ASTRID WISDOM MD Ot 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 02/05/2018 ASTRID WISDOM MD, Ot Z79.82 ALF (CURRENT) USE OF ASPIRIN 02/05/2018 ASTRID WISDOM MD Ot Z85.6 PERSONAL HISTORY OF LEUKEMIA 02/05/2018 ASTRID WISDOM MD Ot Z87.19 PERSONAL HISTORY OF OTHER DISEASES OF 02/05/2018 ASTRID WISDOM MD, Ot Z87.891 PERSONAL HISTORY OF NICOTINE DEPENDENCE 02/05/2018 ASTRID WISDOM MD Ot Z95.1 PRESENCE OF AORTOCORONARY BYPASS GRAFT 02/05/2018 ASTRID WISDOM MD Ot Z95.5 PRESENCE OF CORONARY ANGIOPLASTY IMPLANT 03/04/2018 JOSE JACOB MD Ot C91.10 CHRONIC LYMPHOCYTIC LEUK OF B-CELL TYPE 03/04/2018 JOSE JACOB MD Ot E11.9 TYPE 2 DIABETES MELLITUS WITHOUT COMPLIC 03/04/2018 JOSE JACOB MD Ot E78.5 HYPERLIPIDEMIA, UNSPECIFIED 03/04/2018 JOSE JACOB MD Ot I10 ESSENTIAL (PRIMARY) HYPERTENSION 03/04/2018 JOSE JACOB MD Ot 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 03/04/2018 JSOE JACOB MD Ot 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 03/04/2018 JOSE JACOB MD Ot Z79.899 OTHER GENERAL II FARMWORKER (CURRENT) DRUG THERAPY 03/04/2018 JOSE JACOB MD Ot Z95.1 PRESENCE OF AORTOCORONARY BYPASS GRAFT 03/05/2018 JOSE JACOB MD Ot C91.10 CHRONIC LYMPHOCYTIC LEUK OF B-CELL TYPE 03/05/2018 JOSE JACOB MD Ot E11.9 TYPE 2 DIABETES MELLITUS WITHOUT COMPLIC 03/05/2018 JOSE JACOB MD Ot E78.5 HYPERLIPIDEMIA, UNSPECIFIED 03/05/2018 JOSE JACOB MD Ot I10 ESSENTIAL (PRIMARY) HYPERTENSION 03/05/2018 JOSE JACOB MD Ot 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 03/05/2018 JOSE JACOB MD Ot 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 03/05/2018 JOSE JACOB MD Ot Z79.899 OTHER ALF (CURRENT) DRUG THERAPY 03/05/2018 JOSE JACOB MD Ot Z95.1 PRESENCE OF AORTOCORONARY BYPASS GRAFT 03/25/2018 JOSE JACOB MD Ot C91.10 CHRONIC LYMPHOCYTIC LEUK OF B-CELL TYPE 03/25/2018 JOSE JACOB MD Ot E11.9 TYPE 2 DIABETES MELLITUS WITHOUT COMPLIC 03/25/2018 JOSE JACOB MD Ot E78.5 HYPERLIPIDEMIA, UNSPECIFIED 03/25/2018 JOSE JACOB MD Ot I10 ESSENTIAL (PRIMARY) HYPERTENSION 03/25/2018 JOSE JACOB MD Ot 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 03/25/2018 JOSE JACOB MD Ot 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 03/25/2018 JOSE JACOB MD Ot Z79.899 OTHER GENERAL II FARMWORKER (CURRENT) DRUG THERAPY 03/25/2018 JOSE JACOB MD Ot Z95.1 PRESENCE OF AORTOCORONARY BYPASS GRAFT 04/10/2018 JOSE JACOB MD Ot C91.10 CHRONIC LYMPHOCYTIC LEUK OF B-CELL TYPE 04/10/2018 JOSE JACOB MD Ot E11.9 TYPE 2 DIABETES MELLITUS WITHOUT COMPLIC 04/10/2018 JOSE JACOB MD Ot E78.5 HYPERLIPIDEMIA, UNSPECIFIED 04/10/2018 JOSE JACOB MD Ot I10 ESSENTIAL (PRIMARY) HYPERTENSION 04/10/2018 JOSE JACOB MD Ot 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 04/10/2018 JOSE JACOB MD Ot Z79.01 ALF (CURRENT) USE OF 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 04/10/2018 JOSE JACOB MD Ot Z79.899 OTHER GENERAL II FARMWORKER (CURRENT) DRUG THERAPY 04/10/2018 JOSE JACOB MD Ot Z95.1 PRESENCE OF AORTOCORONARY BYPASS GRAFT 06/03/2018 JOSE JACOB MD Ot C91.10 CHRONIC LYMPHOCYTIC LEUK OF B-CELL TYPE 06/03/2018 JOSE JACOB MD Ot E11.9 TYPE 2 DIABETES MELLITUS WITHOUT COMPLIC 06/03/2018 JOSE JACOB MD Ot E78.5 HYPERLIPIDEMIA, UNSPECIFIED 06/03/2018 JOSE JACOB MD Ot I10 ESSENTIAL (PRIMARY) HYPERTENSION 06/03/2018 JOSE JACOB MD Ot 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 06/03/2018 JOSE JACOB MD Ot 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 06/03/2018 JOSE JACOB MD Ot Z79.899 OTHER ALF (CURRENT) DRUG THERAPY 06/03/2018 JOSE JACOB MD Ot Z95.1 PRESENCE OF AORTOCORONARY BYPASS GRAFT 06/04/2018 JOSE JACOB MD Ot C91.10 CHRONIC LYMPHOCYTIC LEUK OF B-CELL TYPE 06/04/2018 JOSE JACOB MD Ot E11.9 TYPE 2 DIABETES MELLITUS WITHOUT COMPLIC 06/04/2018 JOSE JACOB MD Ot E78.5 HYPERLIPIDEMIA, UNSPECIFIED 06/04/2018 JOSE JACOB MD Ot I10 ESSENTIAL (PRIMARY) HYPERTENSION 06/04/2018 JOSE JACOB MD Ot 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 06/04/2018 JOSE JACOB MD Ot 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 06/04/2018 JOSE JACOB MD Ot Z79.899 OTHER GENERAL II FARMWORKER (CURRENT) DRUG THERAPY 06/04/2018 JOSE JACOB MD Ot Z95.1 PRESENCE OF AORTOCORONARY BYPASS GRAFT 06/11/2018 Ot 427.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 06/11/2018 Ot 785.1 PALPITATIONS 06/11/2018 Ot 427.31 ATRIAL FIBRILLATION 06/11/2018 Ot 427.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 06/11/2018 Ot 785.1 PALPITATIONS 06/11/2018 OSCAR VALENCIA Ot 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 06/11/2018 OSCAR VALENCIA Ot 427.31 ATRIAL FIBRILLATION 06/11/2018 OSCAR VALENCIA Ot V45.81 AORTOCORONARY BYPASS 06/11/2018 ANATOLIY LUNA GEOLOGICAL ENGINEERING TEACHER Ot 786.09 RESPIRATORY ABNORM NEC 06/11/2018 ANATOLIY LUNA GEOLOGICAL ENGINEERING TEACHER Ot 786.2 COUGH 06/11/2018 Ot V72.84 EXAM PRE- OPERATIVE NOS 06/11/2018 DEIDRE AMIN ANALYTICS ASSOCIATE Ot 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 INFARCT 06/11/2018 DEIDRE AMIN ANALYTICS ASSOCIATE Ot 780.8 GENERALIZED HYPERHIDROSIS 06/11/2018 ALEX CHANDLER GEOLOGICAL ENGINEERING TEACHER Ot 288.61 LYMPHOCYTOSIS (SYMPTOMATIC) 06/11/2018 LUIGI ROGEL MD Ot 204.10 CHRONIC LYMPHOID LEUKEMIA, 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 06/11/2018 LUIGI ROGEL MD Ot 562.10 DIVERTICULOSIS COLON (W/O MENT OF HEMORR 06/11/2018 LUIGI ROGEL MD Ot 571.8 CHRONIC LIVER DIS NEC 06/11/2018 JESUS TESFAYE Ot C91.10 CHRONIC LYMPHOCYTIC LEUK OF B-CELL TYPE 06/11/2018 JESUS TESFAYEP Ot E11.9 TYPE 2 DIABETES MELLITUS WITHOUT COMPLIC 06/11/2018 JESUS TESFAYE Ot E78.5 HYPERLIPIDEMIA, UNSPECIFIED 06/11/2018 TESFAYE, HILAH S GEOLOGICAL ENGINEERING TEACHER Ot I12.9 HYPERTENSIVE CHRONIC KIDNEY DISEASE W ST 06/11/2018 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 Ot 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 06/11/2018 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 Ot Z79.01 ALF (CURRENT) USE OF 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 06/11/2018 TESFAYEJESUS Arreguin GEOLOGICAL ENGINEERING TEACHER Ot Z79.899 OTHER ALF (CURRENT) DRUG THERAPY 06/11/2018 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 Ot Z95.1 PRESENCE OF AORTOCORONARY BYPASS GRAFT 06/11/2018 CHARLOTTE FRANCO, KINJAL Anna Ot C91.10 CHRONIC LYMPHOCYTIC LEUK OF B-CELL TYPE 06/11/2018 CHARLOTTE FRANCO, KINJAL Anna Ot Z01.818 ENCOUNTER FOR OTHER PREPROCEDURAL EXAMIN 06/11/2018 JUAN FRANCO, MADYSON Pro Ot K57.90 DVRTCLOS OF INTEST, PART UNSP, W/O PERF 06/11/2018 MADYSON MARTINEZ MD Ot K76.0 FATTY (CHANGE OF) LIVER, NOT ELSEWHERE C 06/11/2018 MADYSON MARTINEZ MD Ot N40.0 ENLARGED PROSTATE WITHOUT LOWER URINARY 06/11/2018 MADYSON MARTINEZ MD Ot R31.9 HEMATURIA, UNSPECIFIED 06/11/2018 ALEX CHANDLER GEOLOGICAL ENGINEERING TEACHER Ot J18.9 PNEUMONIA, UNSPECIFIED ORGANISM 06/11/2018 ALEX CHANDLER GEOLOGICAL ENGINEERING TEACHER Ot R05 COUGH 06/11/2018 YEHUDA FRANCO FACC, LUIS FACP CCDS Ot C91.10 CHRONIC LYMPHOCYTIC LEUK OF B-CELL TYPE 06/11/2018 YEHUDA FRANCO FACC, ALI FACP CCDS Ot E78.4 OTHER HYPERLIPIDEMIA 06/11/2018 YEHUDA FRANCO FACC, ALI FACP CCDS Ot I10 ESSENTIAL (PRIMARY) HYPERTENSION 06/11/2018 YEHUDA FRANCO FACC, ALI FACP CCDS Ot 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 06/11/2018 YEHUDA FRANCO FACC, ALI FACP CCDS Ot I65.23 OCCLUSION AND STENOSIS OF BILATERAL [place] 06/11/2018 YEHUDA FRANCO FACC, ALI FACP CCDS Ot R07.89 OTHER CHEST PAIN 06/11/2018 JOSE JACOB MD Ot C91.10 CHRONIC LYMPHOCYTIC LEUK OF B-CELL TYPE 06/11/2018 OJSE JACOB MD Ot E11.9 TYPE 2 DIABETES MELLITUS WITHOUT COMPLIC 06/11/2018 JOSE JACOB MD Ot E78.5 HYPERLIPIDEMIA, UNSPECIFIED 06/11/2018 JOSE JACOB MD Ot I10 ESSENTIAL (PRIMARY) HYPERTENSION 06/11/2018 JOES JACOB MD Ot 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 06/11/2018 JOSE JACOB MD Ot 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 06/11/2018 JOSE JACOB MD Ot Z79.899 OTHER GENERAL II FARMWORKER (CURRENT) DRUG THERAPY 06/11/2018 JOSE JACOB MD Ot Z95.1 PRESENCE OF AORTOCORONARY BYPASS GRAFT 06/12/2018 JOSE JACOB MD Ot C91.10 CHRONIC LYMPHOCYTIC LEUK OF B-CELL TYPE 06/12/2018 JOSE JACOB MD Ot E11.9 TYPE 2 DIABETES MELLITUS WITHOUT COMPLIC 06/12/2018 JOSE JACOB MD Ot E78.5 HYPERLIPIDEMIA, UNSPECIFIED 06/12/2018 JOSE JACOB MD Ot I10 ESSENTIAL (PRIMARY) HYPERTENSION 06/12/2018 JOSE JACOB MD Ot 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 06/12/2018 JOSE JACOB MD Ot 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 06/12/2018 JOSE JACOB MD Ot Z79.899 OTHER GENERAL II FARMWORKER (CURRENT) DRUG THERAPY 06/12/2018 JOSE JACOB MD Ot Z95.1 PRESENCE OF AORTOCORONARY BYPASS GRAFT 06/16/2018 JOSE JACOB MD Ot C91.10 CHRONIC LYMPHOCYTIC LEUK OF B-CELL TYPE 06/16/2018 JOSE JACOB MD Ot E11.9 TYPE 2 DIABETES MELLITUS WITHOUT COMPLIC 06/16/2018 JOSE JACOB MD Ot E78.5 HYPERLIPIDEMIA, UNSPECIFIED 06/16/2018 JOSE JACOB MD Ot I10 ESSENTIAL (PRIMARY) HYPERTENSION 06/16/2018 JOSE JACOB MD Ot 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 06/16/2018 JOSE JACOB MD Ot 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 06/16/2018 JOSE JACOB MD Ot Z79.899 OTHER GENERAL II FARMWORKER (CURRENT) DRUG THERAPY 06/16/2018 JOSE JACOB MD Ot Z95.1 PRESENCE OF AORTOCORONARY BYPASS GRAFT 07/07/2018 JOSE JACOB MD Ot C91.10 CHRONIC LYMPHOCYTIC LEUK OF B-CELL TYPE 07/07/2018 JOSE JACOB MD Ot E11.9 TYPE 2 DIABETES MELLITUS WITHOUT COMPLIC 07/07/2018 JOSE JACOB MD, Ot E78.5 HYPERLIPIDEMIA, UNSPECIFIED 07/07/2018 JOSE JACOB MD Ot I10 ESSENTIAL (PRIMARY) HYPERTENSION 07/07/2018 JOSE JACOB MD, Ot 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 Results Test Result Range Methicillin resistant Staphylococcus aureus (MRSA) screening culture - 09:00 Methicillin resistant Staphylococcus aureus (MRSA) screening culture NEG NRG Complete blood count (CBC) with automated white blood cell (WBC) differential - 02/03/18 13:42 Blood leukocytes automated count (number/volume) 8.1 10*3/uL 4.3-11.0 Blood erythrocytes automated count (number/volume) 4.62 10*6/uL 4.35-5.85 Venous blood hemoglobin measurement (mass/volume) 14.3 g/dL 13.3-17.7 Blood hematocrit (volume fraction) 42 % 40-54 Automated erythrocyte mean corpuscular volume 91 [foz_us] 80-99 Automated erythrocyte mean corpuscular hemoglobin (mass per erythrocyte) 31 pg 25-34 Automated erythrocyte mean corpuscular hemoglobin concentration measurement ( mass/volume) 34 g/dL 32-36 Automated erythrocyte distribution width ratio 13.8 % 10.0-14.5 Automated blood platelet count (count/volume) 234 10*3/uL 130-400 Automated blood platelet mean volume measurement 10.6 [foz_us] 7.4-10.4 Automated blood neutrophils/100 leukocytes 59 % 42-75 Automated blood lymphocytes/100 leukocytes 25 % 12-44 Blood monocytes/100 leukocytes 11 % 0-12 Automated blood eosinophils/100 leukocytes 5 % 0-10 Automated blood basophils/100 leukocytes 1 % 0-10 Blood neutrophils automated count (number/volume) 4.8 10*3 1.8-7.8 Blood lymphocytes automated count (number/volume) 2.0 10*3 1.0-4.0 Blood monocytes automated count (number/volume) 0.9 10*3 0.0-1.0 Automated eosinophil count 0.4 10*3/uL 0.0-0.3 Automated blood basophil count (count/volume) 0.1 10*3/uL 0.0-0.1 PT panel in platelet poor plasma by coagulation assay - 02/03/18 13:42 Prothrombin time (PT) in platelet poor plasma by coagulation assay 34.4 s 12.2-14.7 INR in platelet poor plasma or blood by coagulation assay 3.4 0.8-1.4 Comprehensive metabolic panel - 02/03/18 13:42 Serum or plasma sodium measurement (moles/volume) 140 mmol/L 135-145 Serum or plasma potassium measurement (moles/volume) 4.3 mmol/L 3.6-5.0 Serum or plasma chloride measurement (moles/volume) 110 mmol/L 98-107 Carbon dioxide 21 mmol/L 21-32 Serum or plasma anion gap determination (moles/volume) 9 mmol/L 5-14 Serum or plasma urea nitrogen measurement (mass/volume) 20 mg/dL 7-18 Serum or plasma creatinine measurement (mass/volume) 1.72 mg/dL 0.60-1.30 Serum or plasma urea nitrogen/creatinine mass ratio 12 NRG Serum or plasma creatinine measurement with calculation of estimated glomerular filtration rate 39 NRG Serum or plasma glucose measurement (mass/volume) 113 mg/dL 70-105 Serum or plasma calcium measurement (mass/volume) 9.0 mg/dL 8.5-10.1 Serum or plasma total bilirubin measurement (mass/volume) 0.7 mg/dL 0.1-1.0 Serum or plasma alkaline phosphatase measurement (enzymatic activity/volume) 48 U/L 40-136 Serum or plasma aspartate aminotransferase measurement (enzymatic activity/ volume) 22 U/L 5-34 Serum or plasma alanine aminotransferase measurement (enzymatic activity/volume ) 21 U/L 0-55 Serum or plasma protein measurement (mass/volume) 6.6 g/dL 6.4-8.2 Serum or plasma albumin measurement (mass/volume) 4.0 g/dL 3.2-4.5 Serum or plasma C reactive protein measurement (mass/volume) - 02/03/18 13:42 Serum or plasma C reactive protein measurement (mass/volume) 0.02 mg /dL 0.00-0.50 Serum or plasma amylase measurement (enzymatic activity/volume) - 02/03/18 13: 42 Serum or plasma amylase measurement (enzymatic activity/volume) 100 U/L 25-125 Lipase - 02/03/18 13:42 Lipase 33 U/L 8-78 Complete urinalysis with reflex to culture - 02/03/18 14:02 Urine color determination YELLOW NRG Urine clarity determination CLEAR NRG Urine pH measurement by test strip 5 5-9 Specific gravity of urine by test strip 1.020 1.016- 1.022 Urine protein assay by test strip, semi-quantitative NEGATIVE NEGATIVE Urine glucose detection by automated test strip NEGATIVE NEGATIVE Erythrocytes detection in urine sediment by light microscopy NEGATIVE NEGATIVE Urine ketones detection by automated test strip NEGATIVE NEGATIVE Urine nitrite detection by test strip NEGATIVE NEGATIVE Urine total bilirubin detection by test strip NEGATIVE NEGATIVE Urine urobilinogen measurement by automated test strip (mass/volume) NORMAL NORMAL Urine leukocyte esterase detection by dipstick NEGATIVE NEGATIVE Automated urine sediment erythrocyte count by microscopy (number/high power field) NONE NRG Automated urine sediment leukocyte count by microscopy (number/high power field ) RARE NRG Bacteria detection in urine sediment by light microscopy NEGATIVE NRG Squamous epithelial cells detection in urine sediment by light microscopy RARE NRG Crystals detection in urine sediment by light microscopy NONE NRG Casts detection in urine sediment by light microscopy NONE NRG Mucus detection in urine sediment by light microscopy SMALL NRG Complete urinalysis with reflex to culture NO NRG Encounters ACCT No. Visit Date/Time Discharge Status Pt. Type Provider Facility Loc./Unit Complaint [id number] 08/17/2018 00:25:00 08/17/2018 23:59:59 CLS Preadmit JOSE JACOB MD [facility] ONC [id number] 08/07/2018 11:29:00 08/07/2018 12:48:00 DIS Outpatient JEFFERY AYALA APRN [facility] REHAB PRIMARY OA KNEE [id number] 06/11/2018 08:14:00 06/16/2018 00:01:00 DIS Outpatient JOSE JACOB MD [facility] ONC [id number] 03/05/2018 10:41:00 06/03/2018 00:01:00 DIS Outpatient OJSE JACOB MD [facility] ONC [id number] 12/04/2017 12:48:00 03/04/2018 00:01:00 DIS Outpatient JOSE JACOB MD [facility] ONC [id number] 02/03/2018 13:24:00 02/03/2018 16:10:00 DIS Emergency ASTRID WISDOM MD [facility] ER KIDNEY ISSUES [id number] 12/04/2017 14:59:00 12/04/2017 23:59:59 CLS Preadmit NICHOLAS CASTRO MD [facility] RAD CHRONIC KIDNEY DISEASE, STAGE 3 [id number] 09/03/2017 13:50:00 12/02/2017 00:01:00 DIS Outpatient JOSE JACOB MD [facility] ONC [id number] 09/23/2017 07:18:00 09/23/2017 23:59:59 CLS Outpatient YEHUDA FRANCO FACC, LUIS ANNE CCDS [facility] CARD CAD I25.10 [id number] 08/25/2017 13:22:00 09/03/2017 13:03:00 DIS Outpatient EDMUNDO MITCHELL MD [facility] ONC [id number] 05/27/2017 08:47:00 08/16/2017 00:01:00 DIS Outpatient LUIGI ROGEL MD [facility] ONC [id number] 02/18/2017 10:19:00 03/25/2017 00:01:00 DIS Outpatient LUIGI ROGEL MD [facility] ONC [id number] 03/12/2017 06:00:00 03/12/2017 10:10:00 DIS Outpatient KINJAL PORTER MD [facility] SDC BASAL CELL CARCINOMA [id number] 03/05/2017 08:40:00 03/05/2017 09:17:00 DIS Outpatient KINJAL PORTER MD [facility] PREOP BASAL CELL CARCINOMA [id number] 01/30/2017 09:31:00 01/30/2017 12:01:00 DIS Outpatient AKIKEN GREER DO [facility] REHAB RT SHOULDER PAIN; PARTIAL RCT TEAR [id number] 12/26/2016 09:44:00 12/26/2016 23:59:59 CLS Outpatient ALEX CHANDLER [facility] RAD PNEUMONIA,COUGH [id number] 11/27/2016 08:29:00 12/03/2016 00:01:00 DIS Outpatient LUIGI ROGEL MD [facility] ONC [id number] 07/31/2016 09:08:00 08/23/2016 16:22:00 DIS Outpatient LUIGI ROGEL MD [facility] ONC [id number] 06/07/2016 11:12:00 06/07/2016 23:59:59 CLS Outpatient MADYSON MARTINEZ MD [facility] RAD HEMATERIA [id number] 05/01/2016 08:52:00 05/21/2016 00:01:00 DIS Outpatient LUIGI ROGEL MD [facility] ONC [id number] 03/28/2016 15:24:00 03/28/2016 15:56:00 DIS Emergency MARIETTA VITAL MD [facility] ER HEAD LAC [id number] 02/14/2016 09:36:00 02/14/2016 00:01:00 DIS Outpatient LUIGI ROGEL MD [facility] ONC [id number] 11/15/2015 08:33:00 11/15/2015 00:01:00 DIS Outpatient LUIGI ROGEL MD [facility] ONC [id number] 09/15/2015 06:18:00 09/15/2015 11:26:00 DIS Outpatient KINJAL PORTER MD [facility] SDC LEUKEMIA [id number] 09/14/2015 05:34:00 09/14/2015 23:59:59 CLS Outpatient KINJAL PORTER MD [facility] PREOP PORT PLACEMENT [id number] 09/13/2015 13:29:00 09/13/2015 23:59:59 CLS Outpatient JESUS TESFAYE [facility] ONC [id number] 07/26/2015 13:23:00 08/16/2015 00:01:00 DIS Outpatient LUIGI ROGEL MD [facility] ONC [id number] 08/01/2015 09:03:00 08/01/2015 23:59:59 CLS Outpatient LUIGI ROGEL MD [facility] RAD MULTIPLE MYLOMA [id number] 07/03/2015 09:55:00 07/03/2015 23:59:59 CLS Outpatient ALEX CHANDLER [facility] LAB ELEVATED WBC, ELEVATED LYMPHOCYTES [id number] 05/02/2015 10:30:00 05/02/2015 23:59:59 CLS Outpatient DEIDRE AMIN APRN [facility] CARD NIGHT SWEATS [id number] 05/09/2014 21:02:00 05/10/2014 06:25:00 DIS Outpatient MOSHE MARIE NUMERICAL CONTROL LATHE OPERATOR [facility] SLEEP EXCESSIVE DAYTIME SLEEPINESS [id number] 08/04/2013 12:10:00 08/04/2013 13:10:00 DIS Outpatient JENNY KIM MD [facility] CR STATUS POST ACB [id number] 08/02/2013 13:31:00 08/02/2013 00:01:00 DIS Outpatient JENNY KIM MD [facility] CR STATUS POST ACB [id number] 06/08/2013 16:44:00 06/08/2013 23:59:59 CLS Outpatient ANATOLIY LUNA [facility] RAD COUGH [id number] 04/09/2013 12:56:00 04/10/2013 11:10:00 DIS Inpatient CAT PERES MD [facility] ICU IRREGULAR HEART RATE [id number] 04/01/2013 08:50:00 04/01/2013 23:59:59 CLS Outpatient OSCAR VALENCIA [facility] CARD CAD [id number] 11/06/2018 11:56:00 PEN Preadmit AKIKEN GREER DO [facility] REHAB S/P L TKR [id number] 01/23/2016 14:14:00 Document Registration [id number] 01/23/2016 14:14:00 Document Registration [id number] 01/23/2016 14:14:00 Document Registration [id number] 07/14/2015 15:25:00 Document Registration [id number] 07/14/2015 15:25:00 Document Registration [id number] 02/03/2015 06:54:00 Document Registration [id number] 02/02/2015 05:56:00 Document Registration [id number] 03/09/2013 08:10:00 Document Registration [id number] 02/26/2013 10:43:00 Document Registration [id number] 08/24/2012 06:57:00 Document Registration [id number] 08/21/2012 08:34:00 Document Registration [id number] 08/02/2011 10:03:00 Document Registration [id number] 06/12/2011 12:03:00 Document Registration [id number] 06/03/2011 12:40:00 Document Registration [id number] 04/01/2011 11:20:00 Document Registration [id number] 01/25/2011 09:37:00 Document Registration [id number] 10/22/2006 15:56:00 Document Registration [id number] 09/12/2006 06:47:00 Document Registration [id number] 10/06/2017 23:41:23 10/06/2017 23:59:59 CLS Outpatient
[2018-11-01] MEDS ORDERED: morphine INJ 10 MG/ML 1ML (SYR OR VIAL) IVP STA (21:53)
[2018-11-01 21:55] LABS: BASOPHILS % (AUTO) 0 % (0-10); EOSINOPHILS # (AUTO) 0.3 10^3/uL (0.0-0.3); EOSINOPHILS % (AUTO) 4 % (0-10); HEMATOCRIT 37 % (40-54); HEMOGLOBIN 12.2 G/DL (13.3-17.7); LYMPHOCYTES # (AUTO) 2.2 X 10^3 (1.0-4.0); LYMPHOCYTES % (AUTO) 31 % (12-44); MEAN CORPUSCULAR HEMOGLOBIN 30 PG (25-34); MEAN CORPUSCULAR HGB CONC 33 G/DL (32-36); MEAN CORPUSCULAR VOLUME 91 FL (80-99); MEAN PLATELET VOLUME 9.7 FL (7.4-10.4); MONOCYTES # (AUTO) 0.6 X 10^3 (0.0-1.0); MONOCYTES % (AUTO) 8 % (0-12); NEUTROPHILS # (AUTO) 4.1 X 10^3 (1.8-7.8); NEUTROPHILS % (AUTO) 57 % (42-75); PLATELET COUNT 343 10^3/uL (130-400); RED BLOOD COUNT 4.03 10^6/uL (4.35-5.85); RED CELL DISTRIBUTION WIDTH 15.3 % (10.0-14.5); WHITE BLOOD COUNT 7.1 10^3/uL (4.3-11.0)
[2018-11-01] MEDS ORDERED: LIDOCAINE 1% INJ 20 ML 20 ML VIAL ONE (21:57)
[2018-11-01] MEDS ORDERED: fentaNYL INJECTION 100 MCG/2 ML AMP ONE (21:58)
[2018-11-01] MEDS ORDERED: HEParin (CATH LAB) 2,000 ML IV ONE (21:58)
[2018-11-01] MEDS ORDERED: MIDAZOLAM 5 MG/5 ML (VERSED) VIAL ONE (21:58)
[2018-11-01] MEDS ORDERED: NITRO DRIP 25000 MCG/D5W 250 ML IV ONE (21:58)
[2018-11-01] MEDS ORDERED: NS IV 1000 ML 1,000 ML ONE (21:58)
[2018-11-01] MEDS ORDERED: HEParin 1000 UNIT/ML (10ML VIAL) FOR BOLUS ONE (21:58)
[2018-11-01] MEDS ORDERED: ASPIRIN 81 MG CHEW (CHILDREN'S ASA) PO ONE (22:00)
[2018-11-01 22:02] LABS: INR 3.8 (0.8-1.4); PROTHROMBIN TIME PATIENT 37.6 SEC (12.2-14.7)
--- NOTE | 2018-11-01 22:03 | ED Chest Pain ---
General Chief Complaint: Chest Pain Source: patient Exam Limitations: no limitations History of Present Illness Date Seen by Provider: Nov 01, 2018 Time Seen by Provider: 21:37 Initial Comments PT ARRIVES VIA POV FROM HOME C/O CHEST PAIN X 30 MINUTES PAIN BEGAN WHILE TRYING TO GO TO SLEEP PAIN IS MID AND LEFT CHEST, RADIATES DOWN LEFT ARM TO WRIST, AND INTO LEFT JAW RATES PAIN 6/10 NO SHORTNESS OF BREATH NO PALPITATIONS NO SWEATS NO NAUSEA/VOMITING NO DIZZINESS NO SWELLING IN FEET/ANKLES PT TOOK 1 BABY ASPIRIN PRIOR TO ARRIVAL PT TAKES COUMADIN FOR CAD AND HISTORY OF ATRIAL FIB, AND TOOK NORMAL DOSE TONIGHT PT HAS HAD MO X 3--SEES DR. BLACKMAN FIRST MO-- HAD STENT X 1 SECOND MO--HAD STENT X 2 THIRD MO--HAD 2 VESSEL CABG + CARDIOVERSION FOR ATRIAL FIBRILLATION--2012 LAST STRESS TEST 09/2017 STATES THIS PAIN IS SAME WITH PRIOR MO'S PT HAD LEFT TOTAL KNEE REPLACEMENT 10/20/[address] PRABHAKAR. PT HAD DENTAL PROCEDURE FOR DENTAL ABSCESS THE WEEK BEFORE THAT. WAS CLEARED FOR SURGERY BY DR. BLACKMAN PCP: DR. BARAJAS ASPHALT ROLLER OPERATOR: DR. BLACKMAN ORTHOPEDIC SURGEON: DR. PRABHAKAR Allergies and Home Medications Allergies Coded Allergies: No Known Drug Allergies (Unverified , 03/05/17) Home Medications Amiodarone Hcl 200 Mg Tab, 200 MG PO DAILY, (Reported) Aspirin 81 Mg Tab.chew, 81 MG PO DAILY, (Reported) Atorvastatin Calcium 80 Mg Tablet, 80 MG PO EVERY EVENING, (Reported) Fenofibric Acid (Choline) 135 Mg Capsule.dr, 135 MG PO DAILY, (Reported) Finasteride 5 Mg Tablet, 5 MG PO DAILY, (Reported) Fish Oil/Dha/Epa 1 Each Capsule, 1,200 MG PO BID, (Reported) Metoprolol Succinate 50 Mg Tab.sr.24h, 25 MG PO BID, (Reported) Multivitamins W-Minerals/Lut 1 Each Tablet, 1 TAB PO HS, (Reported) Omeprazole 20 Mg Capsule.dr, 20 MG PO DAILY, (Reported) Ramipril 5 Mg Capsule, 5 MG PO DAILY, (Reported) Tramadol HCl 50 Mg Tablet, 50 MG PO Q12H PRN for PAIN-MILD Prescribed by: KINJAL PORTER on 03/12/17 0900 Tramadol HCl 50 Mg Tablet, 50 MG PO Q6H PRN for PAIN Prescribed by: ASTRID WISDOM on 02/03/18 9550 Vitamin E (Dl,Tocopheryl Acet) 1,000 Unit Capsule, 1,000 UNIT PO DAILY, ( Reported) Warfarin Sodium 5 Mg Tablet, 5 MG PO DAILY, (Reported) 2.5MG MON AND FRI, 5MG T,W,TH,SAT,SUN Patient Home Medication List Home Medication List Reviewed: Yes Review of Systems Review of Systems Constitutional: no symptoms reported; No diaphoresis, No dizziness EENTM: No Symptoms Reported Respiratory: No Symptoms Reported; Denies Orthopnea, Denies Shortness of Air Cardiovascular: See HPI, Chest Pain, Edema (MILD LEFT LEG SWELLING POST OP KNEE REPLACEMENT); Denies Irregular Heart Rate, Denies Lightheadedness, Denies Palpitations, Denies Syncope Gastrointestinal: No Symptoms Reported; Denies Abdominal Pain, Denies Nausea, Denies Vomiting Genitourinary: No Symptoms Reported Musculoskeletal: see HPI Skin: no symptoms reported Psychiatric/Neurological: No Symptoms Reported Endocrine: No Symptoms Reported Hematologic/Lymphatic: No Symptoms Reported Past Omrycxy-Rlzbrg-Umitrl Hx Patient Social History Alcohol Use: Denies Use Recreational Drug Use: No Smoking Status: Former Smoker Type Used: Cigarettes Former Smoker, Quit: Mar 05, 1966 Recent Foreign Travel: No Contact w/Someone Who Travel: No Recent Hopitalizations: Yes Immunizations Up To Date Tetanus Booster (TDap): Unknown Date of Pneumonia Vaccine: Aug 26, 2016 Date of Influenza Vaccine: Aug 26, 2016 Seasonal Allergies Seasonal Allergies: No Past Medical History Surgeries: Yes (LEFT CAROTID ARTERY; LEFT INGUINAL HERNIA; PORT PLACED/ REMOVED ; RIGHT TRIGGER FINGER; LEFT TOTAL KNEE REPLACEMENT 10/20/18; CARDIAC CATHS--STENTS X 3; 2 VESSEL CABG 2014; BILATERAL CATARACTS; COLONOSCOPIES/ POLYPECTOMIES; ) Abdominal, Cardiac, CABG, Coronary Stent, Eye Surgery, Gallbladder, Joint Replacement, Orthopedic, Vascular Surgery Respiratory: Yes (CPAP) Sleep Apnea Currently Using CPAP: Yes Cardiac: Yes (2 VESSEL CABG WITH CARDIAC ABLATION FOR ATRIAL FIBRILLATION 2014 ; CARDIAC STENTS x3; CAROTID DISEASE--LEFT CAROTID ENDARTERECTOMY; STRESS TEST 09/2017) Atrial Fibrillation, Coronary Artery Disease, Heart Attack, High Cholesterol, Hypertension, Peripheral Vascular Neurological: No Reproductive Disorders: No Sexually Transmitted Disease: No HIV/AIDS: No Genitourinary: Yes (CHRONIC RENAL FAILURE/INSUFFICIENCY) Benign Prostatic Hyperpl, Prostate Problems, Renal Failure Gastrointestinal: Yes Gastroesophageal Reflux, Diverticulosis Musculoskeletal: Yes Arthritis Endocrine: No Loss of Vision: Bilateral Hearing Impairment: Denies Cancer: Yes (CLL--DX 2016--IN REMISSION AFTER 6 MONTHS OF CHEMO) Leukemia, Lymphoma Did You Recieve Any Treatments: Yes What Type of Treatment Did You: Chemotherapy Psychosocial: No Integumentary: No Blood Disorders: No Adverse Reaction/Blood Tranf: No (N/A) Family Medical History No Pertinent Family Hx Physical Exam Vital Signs Capillary Refill : Height, Weight, BMI Height: 5'9.00" Weight: 195lbs. 6.0oz. 88.111219jj; 30.2 BMI Method:Stated General Appearance: No Apparent Distress, WD/WN Neck: Full Range of Motion, Normal Inspection, Non Tender, Supple; No Carotid Bruit, No JVD Respiratory: Normal Breath Sounds, No Accessory Muscle Use, No Respiratory Distress Cardiovascular: Regular Rate, Rhythm, No JVD, No Murmur, Normal Peripheral Pulses Gastrointestinal: Non Tender, Soft Extremity: Normal Capillary Refill, No Calf Tenderness, Other (SURIGICAL WOUND LEFT KNEE--HEALING WITH STERI STRIPS IN PLACE, NO SIGNS OF INFECTION; 1+ EDEMA LEFT LEG. NO SWELLING ON RIGHT) Neurologic/Psychiatric: Alert, Oriented x3, No Motor/Sensory Deficits, Normal Mood/Affect, lidar scientist II-XII Norm as Tested Skin: Normal Color, Warm/Dry, Other (BIRTHMARK TO MOST OF LEFT ABDOMEN) Progress/Results/Core Measures Results/Orders Lab Results Laboratory Tests Test 11/01/18 21:41 Range/Units My Orders Orders - AQUILINO TALBERT DO Nitroglycerin 0.4 Mg Btl 25's (Nitrostat (11/01/18 21:39) Aspirin Chewable Tablet (Baby Aspirin Ch (11/01/18 21:39) Ticagrelor Tablet (Brilinta Tablet) (11/01/18 21:42) Aspirin Chewable Tablet (Baby Aspirin Ch (11/01/18 22:00) Nitroglycerin 0.4 Mg Btl 25's (Nitrostat (11/01/18 22:00) Ticagrelor Tablet (Brilinta Tablet) (11/01/18 22:00) Morphine Injection (Morphine Injection (11/01/18 21:53) I-Stat Bedside Testing (11/01/18 21:56) Progress Progress Note : Progress Note PAIN RESOLVED WITH NTG AND MORPHINE UNEVENTFUL ER STAY 2212--[facility] HERE Initial ECG Impression Date: Nov 01, 2018 Initial ECG Impression Time: 21:38 Initial ECG Rate: 69 Initial ECG Rhythm: Normal Sinus (WITH PAC'S) Initial ECG Impression: Acute MO (INFERIOR) Initial ECG Comparisson: Changed Diagnostic Imaging Comments CXR--NO ACUTE PROCESS, PENDING RADIOLOGIST REVIEW Departure Communication (Admissions) 2138--SPOKE WITH DR. CAR, INFORMED OF STEMI, ADVISES BRILINTA 180 MG AND CALL IN [facility]--BEING DONE BY RN AT THIS TIME. 2212--[facility] HERE TO TAKE PT Impression Primary Impression: STEMI (ST elevation myocardial infarction) Additional Impressions: HX OF CAD WITH STENTS AND CABG RECENT LEFT TKR Disposition: 09 ADMITTED INPATIENT (TO [facility]) Condition: Improved Admissions Decision to Admit Reason: Admit from ER (General) (TO [facility]) Decision to Admit/Date: Nov 01, 2018 Time/Decision to Admit Time: 21:39 Departure-Patient Inst. Referrals: KEN PRABHAKAR DO (PCP) Primary Care Physician AQUILINO TALBERT DO Nov 01, 2018 22:03
[2018-11-01 22:09] LABS: ALANINE AMINOTRANSFERASE 20 U/L (0-55); ALBUMIN 3.8 GM/DL (3.2-4.5); ALKALINE PHOSPHATASE 74 U/L (40-136); BUN/CREATININE RATIO 13; CALCIUM 9.1 MG/DL (8.5-10.1); CARBON DIOXIDE 22 MMOL/L (21-32); CHLORIDE 107 MMOL/L (98-107); CREATININE SERUM 1.82 MG/DL (0.60-1.30); GFR ESTIMATED 36; GLUCOSE 115 MG/DL (70-105); MAGNESIUM 2.1 MG/DL (1.8-2.4); SODIUM 140 MMOL/L (135-145); TOTAL PROTEIN 6.9 GM/DL (6.4-8.2)
[2018-11-01 22:15] LABS: MYOGLOBIN SERUM 51.3 NG/ML (10.0-92.0)
--- OUTSIDE RECORDS SUMMARY | 2018-11-01 22:16 | XMS REPORT | Continuity of Care Document ---
Author Author [facility] Organization [facility] Address Unknown Phone Unavailable Allergies Active Description Code Type Severity Reaction Onset Reported/Identified Relationship to Patient Clinical Status Yes No Known Drug Allergies [id number] Drug Allergy Unknown N/A 03/05/2017 Medications There [...] INFARCT,EPISO 01/25/2011 Ot 414.01 CORONARY ATHEROSCLEROSIS OF [place] CORON 01/25/2011 Ot 433.10 CAROTID ARTERY OCCLUSION W O CEREBRAL IN 01/25/2011 Ot 786.09 RESPIRATORY ABNORM NEC 01/25/2011 Ot 786.50 CHEST PAIN NOS 01/25/2011 Ot V45.82 PERCUTANEOUS TRANSLUM CORON ANGIOPLASTY 04/02/2011 Ot 272.4 HYPERLIPIDEMIA NEC/NOS 04/02/2011 Ot 401.9 HYPERTENSION NOS 04/02/2011 Ot 414.01 CORONARY ATHEROSCLEROSIS OF [place] CORON 04/02/2011 Ot 427.31 ATRIAL FIBRILLATION 04/02/2011 [...] NOS 03/09/2013 Ot 414.01 CORONARY ATHEROSCLEROSIS OF [place] CORON 03/09/2013 Ot 427.31 ATRIAL FIBRILLATION 03/09/2013 [...] V57.89 REHABILITATION PROC NEC 05/10/2014 [facility] Ot 327.23 OBSTRUCTIVE SLEEP APNEA (ADULT) (PEDIATR [...] 427.81 07/14/2015 Ot 785.1 07/14/2015 OSCAR VALENCIA MEDICAL PROGRAM SPECIALIST Ot 414.01 07/14/2015 OSCAR VALENCIA MEDICAL PROGRAM SPECIALIST Ot 427.31 07/14/2015 OSCAR VALENCIA MEDICAL PROGRAM SPECIALIST Ot V45.81 07/14/2015 ANATOLIY LUNA MEDICAL PROGRAM SPECIALIST Ot 786.09 07/14/2015 ANATOLIY LUNA MEDICAL PROGRAM SPECIALIST Ot 786.2 07/14/2015 Ot V72.84 07/14/2015 DEIDRE AMIN ONLINE ADVERTISING DIRECTOR Ot 412 07/14/2015 DEIDRE AMIN APRN Ot 780.8 07/14/2015 ALEX CHANDLER MEDICAL PROGRAM SPECIALIST Ot 288.61 07/18/2015 ALEX CHANDLER MEDICAL PROGRAM SPECIALIST Ot 288.61 07/26/2015 Ot V72.84 08/16/2015 PEBBLES [...] K Ot Z95.1 10/04/2015 BRIEN JESUS S MEDICAL PROGRAM SPECIALIST Ot C91.10 10/04/2015 BRIEN HILAH S MEDICAL PROGRAM SPECIALIST Ot E11.9 10/04/2015 BRIEN HILTISH S MEDICAL PROGRAM SPECIALIST Ot E78.5 10/04/2015 BRIEN HILAH S MEDICAL PROGRAM SPECIALIST Ot I12.9 10/04/2015 BRIEN HILAH S MEDICAL PROGRAM SPECIALIST Ot I25.10 10/04/2015 BRIEN HILAH S MEDICAL PROGRAM SPECIALIST Ot Z79.01 10/04/2015 BRIEN HILAH S MEDICAL PROGRAM SPECIALIST Ot Z79.899 10/04/2015 BRIEN HILAH S MEDICAL PROGRAM SPECIALIST Ot Z95.1 10/17/2015 PEBBLES FRANCO, LUIGI Dary Ot C91.10 10/17/2015 PEBBLES FRANCO, LUIGI Dary Ot E11.9 10/17/2015 PEBBLES FRANCO, LUIGI Dary Ot E78.5 10/17/2015 PEBBLES [...] 10/18/2015 LUIGI ROGEL MD, Ot E78.5 10/18/2015 ULIGI ROGEL MD Ot I12.9 10/18/2015 LUIGI ROGEL [...] MD, Ot I25.10 ATHSCL HEART DISEASE OF [place] CORONARY 11/15/2015 LUIGI ROGEL MD Ot V45.81 AORTOCORONARY BYPASS 11/15/2015 LUIGI ROGEL MD, Ot V58.61 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S,LT,CURRENT USE 11/15/2015 LUIGI ROGEL MD, Ot V58.69 OTH MED,LT,CURRENT USE 11/15/2015 LUIGI ROGEL MD Ot Z51.11 ENCOUNTER FOR ANTINEOPLASTIC CHEMOTHERAP 11/15/2015 LUIGI ROGEL MD, Ot Z79.01 ART PSYCHOTHERAPIST OR THERAPIST (CURRENT) USE OF 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 11/15/2015 LUIGI ROGEL MD, Ot Z79.899 OTHER ART PSYCHOTHERAPIST OR THERAPIST (CURRENT) DRUG THERAPY 11/15/2015 LUIGI ROGEL MD [...] PEBBLES FRANCO, LUIGI Foote Ot Z95.1 02/14/2016 EPBBLES FRANCO, LUIGI Foote Ot C91.10 CHRONIC LYMPHOCYTIC LEUK OF B-CELL TYPE 02/14/2016 PEBBLES FRANCO, LUIGI Foote Ot E11.9 TYPE 2 DIABETES MELLITUS WITHOUT COMPLIC 02/14/2016 LUIGI ROGEL MD Ot E78.5 HYPERLIPIDEMIA, UNSPECIFIED 02/14/2016 PEBBLES FRACNO, LUIGI Foote Ot I10 ESSENTIAL (PRIMARY) HYPERTENSION 02/14/2016 PEBBLES FRANCO, LUIGI Dary Ot I25.10 ATHSCL HEART DISEASE OF [place] CORONARY 02/14/2016 PEBBLES FRANCO, LUIGI Dary Ot Z51.11 ENCOUNTER FOR ANTINEOPLASTIC CHEMOTHERAP 02/14/2016 PEBBLES FRACNO, LUIGI Dary Ot Z79.01 ART PSYCHOTHERAPIST OR THERAPIST (CURRENT) USE OF 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 02/14/2016 PEBBLES FRANCO, LUIGI Dary Ot Z79.899 OTHER ART PSYCHOTHERAPIST OR THERAPIST (CURRENT) DRUG THERAPY 02/14/2016 PEBBLES FRANCO, LUIGI Dary Ot Z95.1 PRESENCE OF AORTOCORONARY BYPASS GRAFT 02/29/2016 Ot 442.2 02/29/2016 Ot 562.10 02/29/2016 Ot 599.70 02/29/2016 Ot 600.00 02/29/2016 DEIDRE AMIN APRN Ot 412 02/29/2016 DEIDRE AMIN APRN Ot 780.8 02/29/2016 ALEX CHANDLER MEDICAL PROGRAM SPECIALIST Ot 288.61 02/29/2016 PEBBLES FRANCO, LUIGI Foote Ot 204.10 02/29/2016 PEBBLES FRANCO, LUIGI Foote Ot 562.10 02/29/2016 PEBBLES FRANCO, LUIGI Foote Ot 571.8 02/29/2016 JESUS TESFAYE MEDICAL PROGRAM SPECIALIST Ot C91.10 02/29/2016 TESFAYEJESUS Arreguin MEDICAL PROGRAM SPECIALIST Ot E11.9 02/29/2016 TESFAYEJESUS Arreguin MEDICAL PROGRAM SPECIALIST Ot E78.5 02/29/2016 JESUS TESFAYE MEDICAL PROGRAM SPECIALIST Ot I12.9 02/29/2016 TESFAYEJESUS Arreguin MEDICAL PROGRAM SPECIALIST Ot I25.10 02/29/2016 TESFAYEJESUS Arreguin MEDICAL PROGRAM SPECIALIST Ot Z79.01 02/29/2016 TESFAYEJESUS Arreguin MEDICAL PROGRAM SPECIALIST Ot Z79.899 02/29/2016 TESFAYEJESUS Arreguin MEDICAL PROGRAM SPECIALIST Ot Z95.1 02/29/2016 CHARLOTTE FRANCO, KINJAL Anna [...] MD, Ot I25.10 ATHSCL HEART DISEASE OF [place] CORONARY 03/04/2016 LUIGI ROGEL MD Ot Z51.11 ENCOUNTER FOR ANTINEOPLASTIC CHEMOTHERAP 03/04/2016 LUIGI ROGEL MD Ot Z79.01 ART PSYCHOTHERAPIST OR THERAPIST (CURRENT) USE OF 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 03/04/2016 LUIGI ROGEL MD, Ot Z79.899 OTHER ART PSYCHOTHERAPIST OR THERAPIST (CURRENT) DRUG THERAPY 03/04/2016 LUIGI ROGEL MD [...] MD Ot I25.10 ATHSCL HEART DISEASE OF [place] CORONARY 03/11/2016 LUIGI ROGEL MD Ot Z51.11 ENCOUNTER FOR ANTINEOPLASTIC CHEMOTHERAP 03/11/2016 LUIGI ROGEL MD Ot Z79.01 HALFWAY (CURRENT) USE OF 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 03/11/2016 LUIGI ROGEL MD Ot Z79.899 OTHER HALFWAY (CURRENT) DRUG THERAPY 03/11/2016 LUIGI ROGEL MD [...] LEUK OF B-CELL TYPE 03/28/2016 JESUS TESFAYE MEDICAL PROGRAM SPECIALIST Ot E11.9 TYPE 2 DIABETES MELLITUS WITHOUT COMPLIC 03/28/2016 JESUS TESFAYE MEDICAL PROGRAM SPECIALIST Ot E78.5 HYPERLIPIDEMIA, UNSPECIFIED 03/28/2016 JESUS TESFAYE MEDICAL PROGRAM SPECIALIST Ot I12.9 HYPERTENSIVE CHRONIC KIDNEY DISEASE W ST 03/28/2016 JESUS TESFAYE MEDICAL PROGRAM SPECIALIST Ot I25.10 ATHSCL HEART DISEASE OF [place] CORONARY 03/28/2016 JESUS TESFAYEP Ot Z79.01 ART PSYCHOTHERAPIST OR THERAPIST (CURRENT) USE OF 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 03/28/2016 JESUS TESFAYEP Ot Z79.899 OTHER ART PSYCHOTHERAPIST OR THERAPIST (CURRENT) DRUG THERAPY 03/28/2016 JESUS TESFAYEP Ot [...] MD, Ot I25.10 ATHSCL HEART DISEASE OF [place] CORONARY 03/28/2016 LUIGI ROGEL MD, Ot Z51.11 ENCOUNTER FOR ANTINEOPLASTIC CHEMOTHERAP 03/28/2016 LUIGI ROGEL MD, Ot Z79.01 HALFWAY (CURRENT) USE OF 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 03/28/2016 LUIGI ROGEL MD, Ot Z79.899 OTHER ART PSYCHOTHERAPIST OR THERAPIST (CURRENT) DRUG THERAPY 03/28/2016 LUIGI ROGEL MD Ot Z95.1 PRESENCE OF AORTOCORONARY BYPASS GRAFT 03/29/2016 MAIRETTA VITAL MD, Ot S01.91XA LACERATION W/O FOREIGN [...] MD, Ot I25.10 ATHSCL HEART DISEASE OF [place] CORONARY 04/10/2016 LUIGI ROGEL MD, Ot Z51.11 ENCOUNTER FOR ANTINEOPLASTIC CHEMOTHERAP 04/10/2016 LUIGI ROGEL MD, Ot Z79.01 ART PSYCHOTHERAPIST OR THERAPIST (CURRENT) USE OF 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 04/10/2016 LUIGI ROGEL MD, Ot Z79.899 OTHER HALFWAY (CURRENT) DRUG THERAPY 04/10/2016 LUIGI ROGEL MD [...] MD Ot I25.10 ATHSCL HEART DISEASE OF [place] CORONARY 04/27/2016 LUIGI ROGEL MD Ot Z45.2 ENCOUNTER FOR ADJUSTMENT AND MANAGEMENT 04/27/2016 LUIGI ROGEL MD Ot Z79.01 ART PSYCHOTHERAPIST OR THERAPIST (CURRENT) USE OF 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 04/27/2016 LUIGI ROGEL MD Ot Z79.899 OTHER ART PSYCHOTHERAPIST OR THERAPIST (CURRENT) DRUG THERAPY 04/27/2016 LUIGI ROGEL MD [...] MD Ot I25.10 ATHSCL HEART DISEASE OF [place] CORONARY 05/21/2016 LUIGI ROGEL MD, Ot Z45.2 ENCOUNTER FOR ADJUSTMENT AND MANAGEMENT 05/21/2016 LUIGI ROGEL MD, Ot Z79.01 ART PSYCHOTHERAPIST OR THERAPIST (CURRENT) USE OF 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 05/21/2016 LUIGI ROGEL MD Ot Z79.899 OTHER ART PSYCHOTHERAPIST OR THERAPIST (CURRENT) DRUG THERAPY 05/21/2016 LUIGI ROGEL MD [...] MD Ot I25.10 ATHSCL HEART DISEASE OF [place] CORONARY 05/23/2016 LUIGI ROGEL MD Ot Z45.2 ENCOUNTER FOR ADJUSTMENT AND MANAGEMENT 05/23/2016 LUIGI ROGEL MD Ot Z79.01 HALFWAY (CURRENT) USE OF 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 05/23/2016 LUIGI ROGEL MD Ot Z79.899 OTHER HALFWAY (CURRENT) DRUG THERAPY 05/23/2016 LUIGI ROGEL MD Ot Z95.1 PRESENCE OF AORTOCORONARY BYPASS GRAFT 05/29/2016 LUIGI ROGEL MD, Ot C91.10 CHRONIC LYMPHOCYTIC LEUK OF B-CELL TYPE 05/29/2016 LUIGI ROGEL MD Ot E11.9 TYPE 2 DIABETES MELLITUS WITHOUT COMPLIC 05/29/2016 LUIGI ROGEL MD Ot E78.5 HYPERLIPIDEMIA, UNSPECIFIED 05/29/2016 ULIGI ROGEL MD Ot I10 ESSENTIAL (PRIMARY) HYPERTENSION 05/29/2016 LUIGI ROGEL MD Ot I25.10 ATHSCL HEART DISEASE OF [place] CORONARY 05/29/2016 LUIGI ROGEL MD Ot Z45.2 ENCOUNTER FOR ADJUSTMENT AND MANAGEMENT 05/29/2016 LUIGI ROGEL MD, Ot Z79.01 HALFWAY (CURRENT) USE OF 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 05/29/2016 LUIGI ROGEL MD, Ot Z79.899 OTHER HALFWAY (CURRENT) DRUG THERAPY 05/29/2016 LUIGI ROGEL MD [...] MD Ot I25.10 ATHSCL HEART DISEASE OF [place] CORONARY 06/06/2016 LUIGI ROGEL MD Ot Z45.2 ENCOUNTER FOR ADJUSTMENT AND MANAGEMENT 06/06/2016 LUIGI ROGEL MD Ot Z79.01 ART PSYCHOTHERAPIST OR THERAPIST (CURRENT) USE OF 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 06/06/2016 LUIGI ROGEL MD Ot Z79.899 OTHER ART PSYCHOTHERAPIST OR THERAPIST (CURRENT) DRUG THERAPY 06/06/2016 LUIGI ROGEL MD [...] TESFAYE Ot I25.10 ATHSCL HEART DISEASE OF [place] CORONARY 06/07/2016 JESUS TESFAYE Ot Z79.01 HALFWAY (CURRENT) USE OF 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 06/07/2016 JESUS TESFAYE Ot Z79.899 OTHER ART PSYCHOTHERAPIST OR THERAPIST (CURRENT) DRUG THERAPY 06/07/2016 JESUS TESFAYE Ot [...] MD Ot I25.10 ATHSCL HEART DISEASE OF [place] CORONARY 06/07/2016 LUIGI ROGEL MD Ot Z45.2 ENCOUNTER FOR ADJUSTMENT AND MANAGEMENT 06/07/2016 LUIGI ROGEL MD Ot Z79.01 HALFWAY (CURRENT) USE OF 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 06/07/2016 LUIGI ROGEL MD Ot Z79.899 OTHER ART PSYCHOTHERAPIST OR THERAPIST (CURRENT) DRUG THERAPY 06/07/2016 LUIGI ROGEL MD [...] 06/07/2016 Ot 785.1 PALPITATIONS 06/07/2016 OSCAR VALENCIA MEDICAL PROGRAM SPECIALIST Ot 414.01 CORONARY ATHEROSCLEROSIS OF [place] CORON 06/07/2016 OSCAR VALNECIA MEDICAL PROGRAM SPECIALIST Ot 427.31 ATRIAL FIBRILLATION 06/07/2016 OSCAR VALENCIA MEDICAL PROGRAM SPECIALIST Ot V45.81 AORTOCORONARY BYPASS 06/07/2016 ANATOLIY LUNA MEDICAL PROGRAM SPECIALIST Ot 786.09 RESPIRATORY ABNORM NEC 06/07/2016 ANATOLIY LUNA MEDICAL PROGRAM SPECIALIST Ot 786.2 COUGH 06/07/2016 Ot V72.84 EXAM PRE- OPERATIVE NOS 06/07/2016 DEIDRE AMIN ONLINE ADVERTISING DIRECTOR Ot 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 INFARCT 06/07/2016 DEIDRE AMIN ONLINE ADVERTISING DIRECTOR Ot 780.8 GENERALIZED HYPERHIDROSIS 06/07/2016 ALEX CHANDLER MEDICAL PROGRAM SPECIALIST Ot 288.61 LYMPHOCYTOSIS (SYMPTOMATIC) 06/07/2016 PEBBLES FRANCO, LUIGI Foote Ot 204.10 CHRONIC LYMPHOID LEUKEMIA, 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 06/07/2016 PEBBLES FRANCO, LUIGI Foote Ot 562.10 DIVERTICULOSIS COLON (W/O MENT OF HEMORR 06/07/2016 PEBBLES FRANCO, LUIGI Foote Ot 571.8 CHRONIC LIVER DIS NEC 06/07/2016 JESUS TESFAYE MEDICAL PROGRAM SPECIALIST Ot C91.10 CHRONIC LYMPHOCYTIC LEUK OF B-CELL TYPE 06/07/2016 JESUS TESFAYEP Ot E11.9 TYPE 2 DIABETES MELLITUS WITHOUT COMPLIC 06/07/2016 JESUS TESFAYEP Ot E78.5 HYPERLIPIDEMIA, UNSPECIFIED 06/07/2016 JESUS TESFAYEP Ot I12.9 HYPERTENSIVE CHRONIC KIDNEY DISEASE W ST 06/07/2016 JESUS TESFAYE MEDICAL PROGRAM SPECIALIST Ot I25.10 ATHSCL HEART DISEASE OF [place] CORONARY 06/07/2016 TESFAYEJESUS Arreguin RUPINDER Ot Z79.01 ART PSYCHOTHERAPIST OR THERAPIST (CURRENT) USE OF 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 06/07/2016 TESFAYEJESUS Arreguin RUPINDER Ot Z79.899 OTHER HALFWAY (CURRENT) DRUG THERAPY 06/07/2016 TESFAYEJESUS Arreguin RUPINDER [...] MD Ot I25.10 ATHSCL HEART DISEASE OF [place] CORONARY 06/07/2016 LUIGI ROGEL MD Ot Z45.2 ENCOUNTER FOR ADJUSTMENT AND MANAGEMENT 06/07/2016 LUIGI ROGEL MD Ot Z79.01 HALFWAY (CURRENT) USE OF 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 06/07/2016 LUIGI ROGEL MD Ot Z79.899 OTHER HALFWAY (CURRENT) DRUG THERAPY 06/07/2016 LUIGI ROGEL MD [...] EXAM PRE- OPERATIVE NOS 08/08/2016 PEBBLES FRANCO, LUIIG Foote Ot 204.10 CHRONIC LYMPHOID LEUKEMIA, 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 08/08/2016 PEBBLES FRANCO, LUIGI Foote Ot 562.10 DIVERTICULOSIS COLON (W/O MENT OF HEMORR 08/08/2016 PEBBLES FRANCO, LUIGI Foote Ot 571.8 CHRONIC LIVER DIS NEC 08/08/2016 JESUS TESFAYEP Ot C91.10 CHRONIC LYMPHOCYTIC LEUK OF B-CELL TYPE 08/08/2016 JESUS TESFAYE MEDICAL PROGRAM SPECIALIST Ot E11.9 TYPE 2 DIABETES MELLITUS WITHOUT COMPLIC 08/08/2016 JESUS TESFAYEP Ot E78.5 HYPERLIPIDEMIA, UNSPECIFIED 08/08/2016 JESUS TESFAYEP Ot I12.9 HYPERTENSIVE CHRONIC KIDNEY DISEASE W ST 08/08/2016 JESUS TESFAYEP Ot I25.10 ATHSCL HEART DISEASE OF [place] CORONARY 08/08/2016 JESUS TESFAYEP Ot Z79.01 ART PSYCHOTHERAPIST OR THERAPIST (CURRENT) USE OF 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 08/08/2016 JESUS TESFAYEP Ot Z79.899 OTHER HALFWAY (CURRENT) DRUG THERAPY 08/08/2016 JESUS TESFAYEP Ot [...] MD Ot I25.10 ATHSCL HEART DISEASE OF [place] CORONARY 08/08/2016 LUIGI ROGEL MD Ot Z45.2 ENCOUNTER FOR ADJUSTMENT AND MANAGEMENT 08/08/2016 LUIGI ROGEL MD Ot Z79.01 ART PSYCHOTHERAPIST OR THERAPIST (CURRENT) USE OF 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 08/08/2016 LUIGI ROGEL MD Ot Z79.899 OTHER ART PSYCHOTHERAPIST OR THERAPIST (CURRENT) DRUG THERAPY 08/08/2016 LUIGI ROGEL MD [...] TESFAYE Ot I25.10 ATHSCL HEART DISEASE OF [place] CORONARY 08/14/2016 JESUS TESFAYE Ot Z79.01 ART PSYCHOTHERAPIST OR THERAPIST (CURRENT) USE OF 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 08/14/2016 BRIEN JESUS Arreguin RUPINDER Ot Z79.899 OTHER HALFWAY (CURRENT) DRUG THERAPY 08/14/2016 TESFAYE JESUS Arreguin [...] MD Ot I25.10 ATHSCL HEART DISEASE OF [place] CORONARY 08/14/2016 LUIGI ROGEL MD Ot Z45.2 ENCOUNTER FOR ADJUSTMENT AND MANAGEMENT 08/14/2016 LUIGI ROGEL MD Ot Z79.01 ART PSYCHOTHERAPIST OR THERAPIST (CURRENT) USE OF 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 08/14/2016 LUIGI ROGEL MD Ot Z79.899 OTHER ART PSYCHOTHERAPIST OR THERAPIST (CURRENT) DRUG THERAPY 08/14/2016 LUIGI ROGEL MD [...] CHRONIC LYMPHOID LEUKEMIA, 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 08/23/2016 LUIGI ROGEL MD Ot 562.10 DIVERTICULOSIS COLON (W/O MENT OF HEMORR 08/23/2016 LUIGI ROGEL MD Ot 571.8 CHRONIC LIVER DIS NEC 08/23/2016 BRIEN JESUS Arreguin MEDICAL PROGRAM SPECIALIST Ot C91.10 CHRONIC LYMPHOCYTIC LEUK OF B-CELL TYPE 08/23/2016 BRIEN JESUS Arreguin MEDICAL PROGRAM SPECIALIST Ot E11.9 TYPE 2 DIABETES MELLITUS WITHOUT COMPLIC 08/23/2016 BRIEN JESUS HERRERAP Ot E78.5 HYPERLIPIDEMIA, UNSPECIFIED 08/23/2016 BREIN JESUS Arreguin MEDICAL PROGRAM SPECIALIST Ot I12.9 HYPERTENSIVE CHRONIC KIDNEY DISEASE W ST 08/23/2016 MAURO TESFAYETISH Arreguin MEDICAL PROGRAM SPECIALIST Ot I25.10 ATHSCL HEART DISEASE OF [place] CORONARY 08/23/2016 MAURO TESFAYETISH Arreguin MEDICAL PROGRAM SPECIALIST Ot Z79.01 HALFWAY (CURRENT) USE OF 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 08/23/2016 MAURO TESFAYETISH Arreguin RUPINDER Ot Z79.899 OTHER ART PSYCHOTHERAPIST OR THERAPIST (CURRENT) DRUG THERAPY 08/23/2016 MAURO TESFAYETISH Arreguin [...] MD Ot I25.10 ATHSCL HEART DISEASE OF [place] CORONARY 08/23/2016 LUIGI ROGEL MD Ot Z45.2 ENCOUNTER FOR ADJUSTMENT AND MANAGEMENT 08/23/2016 LIUGI ROGEL MD Ot Z79.01 HALFWAY (CURRENT) USE OF 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 08/23/2016 LUIGI ROGEL MD Ot Z79.899 OTHER ART PSYCHOTHERAPIST OR THERAPIST (CURRENT) DRUG THERAPY 08/23/2016 LUIGI ROGEL MD [...] MD Ot I25.10 ATHSCL HEART DISEASE OF [place] CORONARY 08/23/2016 LUIGI ROGEL MD Ot Z45.2 ENCOUNTER FOR ADJUSTMENT AND MANAGEMENT 08/23/2016 LUIGI ROGEL MD Ot Z79.01 HALFWAY (CURRENT) USE OF 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 08/23/2016 LUIGI ROGEL MD Ot Z79.899 OTHER HALFWAY (CURRENT) DRUG THERAPY 08/23/2016 LUIGI ROGEL MD [...] LEUK OF B-CELL TYPE 09/04/2016 JESUS TESFAYE MEDICAL PROGRAM SPECIALIST Ot E11.9 TYPE 2 DIABETES MELLITUS WITHOUT COMPLIC 09/04/2016 JESUS TESFAYE Ot E78.5 HYPERLIPIDEMIA, UNSPECIFIED 09/04/2016 JESUS TESFAYEP Ot I12.9 HYPERTENSIVE CHRONIC KIDNEY DISEASE W ST 09/04/2016 JESUS TESFAYEP Ot I25.10 ATHSCL HEART DISEASE OF [place] CORONARY 09/04/2016 JESUS TESFAYEP Ot Z79.01 ART PSYCHOTHERAPIST OR THERAPIST (CURRENT) USE OF 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 09/04/2016 JESUS TESFAYEP Ot Z79.899 OTHER ART PSYCHOTHERAPIST OR THERAPIST (CURRENT) DRUG THERAPY 09/04/2016 JESUS TESFAYE MEDICAL PROGRAM SPECIALIST Ot Z95.1 PRESENCE OF AORTOCORONARY BYPASS GRAFT [...] MD Ot I25.10 ATHSCL HEART DISEASE OF [place] CORONARY 09/04/2016 LUIGI ROGEL MD Ot Z45.2 ENCOUNTER FOR ADJUSTMENT AND MANAGEMENT 09/04/2016 LUIGI ROGEL MD Ot Z79.01 ART PSYCHOTHERAPIST OR THERAPIST (CURRENT) USE OF 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 09/04/2016 LUIGI ROGEL MD Ot Z79.899 OTHER ART PSYCHOTHERAPIST OR THERAPIST (CURRENT) DRUG THERAPY 09/04/2016 LUIGI ROGEL MD [...] MD Ot I25.10 ATHSCL HEART DISEASE OF [place] CORONARY 09/05/2016 LUIGI ROGEL MD, Ot Z45.2 ENCOUNTER FOR ADJUSTMENT AND MANAGEMENT 09/05/2016 LUIGI ROGEL MD, Ot Z79.01 ART PSYCHOTHERAPIST OR THERAPIST (CURRENT) USE OF 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 09/05/2016 LUIGI ROGEL MD, Ot Z79.899 OTHER ART PSYCHOTHERAPIST OR THERAPIST (CURRENT) DRUG THERAPY 09/05/2016 LUIGI ROGEL MD, [...] MD, Ot I25.10 ATHSCL HEART DISEASE OF [place] CORONARY 09/17/2016 LUIGI ROGEL MD Ot V45.81 AORTOCORONARY BYPASS 09/17/2016 LUIGI ROGEL MD, Ot V58.61 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S,LT,CURRENT USE 09/17/2016 LUIGI ROGEL MD, Ot V58.69 OTH MED,LT,CURRENT USE 09/17/2016 LUIGI ROGEL MD, Ot Z51.11 ENCOUNTER FOR ANTINEOPLASTIC CHEMOTHERAP 09/17/2016 LUIGI ROGEL MD, Ot Z79.01 HALFWAY (CURRENT) USE OF 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 09/17/2016 LUIGI ROGEL MD, Ot Z79.899 OTHER HALFWAY (CURRENT) DRUG THERAPY 09/17/2016 LUIGI ROGEL MD, [...] MD, Ot I25.10 ATHSCL HEART DISEASE OF [place] CORONARY 12/03/2016 LUIGI ROGEL MD, Ot Z45.2 ENCOUNTER FOR ADJUSTMENT AND MANAGEMENT 12/03/2016 LUIGI ROGEL MD, Ot Z79.01 HALFWAY (CURRENT) USE OF 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 12/03/2016 LUIGI ROGEL MD, Ot Z79.899 OTHER HALFWAY (CURRENT) DRUG THERAPY 12/03/2016 LUIGI ROGEL MD Ot Z95.1 PRESENCE OF AORTOCORONARY BYPASS GRAFT 12/04/2016 LUIGI ROGEL MD, Ot C91.10 CHRONIC LYMPHOCYTIC LEUK OF B-CELL TYPE 12/04/2016 LUIGI ROGEL MD Ot E11.9 TYPE 2 DIABETES MELLITUS WITHOUT COMPLIC 12/04/2016 LUIGI ROGEL MD, Ot E78.5 HYPERLIPIDEMIA, UNSPECIFIED 12/04/2016 LUIGI ROGEL MD Ot I10 ESSENTIAL (PRIMARY) HYPERTENSION 12/04/2016 LUIGI ROGEL MD, Ot I25.10 ATHSCL HEART DISEASE OF [place] CORONARY 12/04/2016 LUIGI ROGEL MD, Ot Z45.2 ENCOUNTER FOR ADJUSTMENT AND MANAGEMENT 12/04/2016 LUIGI ROGEL MD Ot Z79.01 ART PSYCHOTHERAPIST OR THERAPIST (CURRENT) USE OF 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 12/04/2016 LUIGI ROGEL MD, Ot Z79.899 OTHER HALFWAY (CURRENT) DRUG THERAPY 12/04/2016 LUIGI ROGEL MD Ot Z95.1 PRESENCE OF AORTOCORONARY BYPASS GRAFT 12/26/2016 LUIGI ROGEL MD, Ot C91.10 CHRONIC LYMPHOCYTIC LEUK OF B-CELL TYPE 12/26/2016 LUIGI ROGLE MD Ot E11.9 TYPE 2 DIABETES MELLITUS WITHOUT COMPLIC 12/26/2016 LUIGI ROGEL MD Ot E78.5 HYPERLIPIDEMIA, UNSPECIFIED 12/26/2016 LUIGI ROGEL MD Ot I10 ESSENTIAL (PRIMARY) HYPERTENSION 12/26/2016 LUIGI ROGEL MD Ot I25.10 ATHSCL HEART DISEASE OF [place] CORONARY 12/26/2016 LUIGI ROGEL MD Ot Z45.2 ENCOUNTER FOR ADJUSTMENT AND MANAGEMENT 12/26/2016 LUIGI ROGEL MD, Ot Z79.01 HALFWAY (CURRENT) USE OF 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 12/26/2016 LUIGI ROGEL MD Ot Z79.899 OTHER HALFWAY (CURRENT) DRUG THERAPY 12/26/2016 LUIGI ROGEL MD [...] 12/26/2016 Ot 785.1 PALPITATIONS 12/26/2016 OSCAR VALENCIA MEDICAL PROGRAM SPECIALIST Ot 414.01 CORONARY ATHEROSCLEROSIS OF [place] CORON 12/26/2016 OSCAR VALENCIA MEDICAL PROGRAM SPECIALIST Ot 427.31 ATRIAL FIBRILLATION 12/26/2016 OSCAR VALENCIA MEDICAL PROGRAM SPECIALIST Ot V45.81 AORTOCORONARY BYPASS 12/26/2016 ANATOLIY LUNA MEDICAL PROGRAM SPECIALIST Ot 786.09 RESPIRATORY ABNORM NEC 12/26/2016 ANATOLIY LUNA MEDICAL PROGRAM SPECIALIST Ot 786.2 COUGH 12/26/2016 Ot V72.84 EXAM PRE- OPERATIVE NOS 12/26/2016 DEIDRE AMIN ONLINE ADVERTISING DIRECTOR Ot 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 INFARCT 12/26/2016 DEIDRE AMIN ONLINE ADVERTISING DIRECTOR Ot 780.8 GENERALIZED HYPERHIDROSIS 12/26/2016 ALEX CHANDLER MEDICAL PROGRAM SPECIALIST Ot 288.61 LYMPHOCYTOSIS (SYMPTOMATIC) 12/26/2016 PEBBLES FRANCO, LUIGI Foote Ot 204.10 CHRONIC LYMPHOID LEUKEMIA, 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 12/26/2016 PEBBLES FRANCO, LUIGI Foote Ot 562.10 DIVERTICULOSIS COLON (W/O MENT OF HEMORR 12/26/2016 PEBBLES FRANCO, LUIGI Foote Ot 571.8 CHRONIC LIVER DIS NEC 12/26/2016 JESUS TESFAYE MEDICAL PROGRAM SPECIALIST Ot C91.10 CHRONIC LYMPHOCYTIC LEUK OF B-CELL TYPE 12/26/2016 JESUS TESFAYE MEDICAL PROGRAM SPECIALIST Ot E11.9 TYPE 2 DIABETES MELLITUS WITHOUT COMPLIC 12/26/2016 JESUS TESFAYE MEDICAL PROGRAM SPECIALIST Ot E78.5 HYPERLIPIDEMIA, UNSPECIFIED 12/26/2016 JESUS TESFAYE MEDICAL PROGRAM SPECIALIST Ot I12.9 HYPERTENSIVE CHRONIC KIDNEY DISEASE W ST 12/26/2016 MAURO TESFAYETISH Arreguin RUPINDER Ot I25.10 ATHSCL HEART DISEASE OF [place] CORONARY 12/26/2016 MAURO TESFAYETISH Arreguin RUPINDER Ot Z79.01 HALFWAY (CURRENT) USE OF 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 12/26/2016 BRIEN JESUS Arreguin RUPINDER Ot Z79.899 OTHER HALFWAY (CURRENT) DRUG THERAPY 12/26/2016 BRIEN JESUS Arreguin [...] MD Ot I25.10 ATHSCL HEART DISEASE OF [place] CORONARY 12/26/2016 LUIGI ROGEL MD Ot Z45.2 ENCOUNTER FOR ADJUSTMENT AND MANAGEMENT 12/26/2016 LUIGI ROGEL MD Ot Z79.01 ART PSYCHOTHERAPIST OR THERAPIST (CURRENT) USE OF 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 12/26/2016 LUIGI ROGEL MD Ot Z79.899 OTHER HALFWAY (CURRENT) DRUG THERAPY 12/26/2016 LUIGI ROGEL MD [...] TESFAYE Ot I25.10 ATHSCL HEART DISEASE OF [place] CORONARY 12/26/2016 JESUS TESFAYE Ot Z79.01 ART PSYCHOTHERAPIST OR THERAPIST (CURRENT) USE OF 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 12/26/2016 JESUS TESFAYEP Ot Z79.899 OTHER HALFWAY (CURRENT) DRUG THERAPY 12/26/2016 JESUS TESFAYE Ot [...] CHRONIC LYMPHOCYTIC LEUK OF B-CELL TYPE 03/25/2017 LUIGI ROGEL MD Ot E11.9 TYPE 2 DIABETES MELLITUS WITHOUT COMPLIC 03/25/2017 LUIGI ROGEL MD Ot E78.5 HYPERLIPIDEMIA, UNSPECIFIED 03/25/2017 LUIGI ROGEL MD Ot I10 ESSENTIAL (PRIMARY) HYPERTENSION 03/25/2017 LUIGI ROGEL MD, Ot I25.10 ATHSCL HEART DISEASE OF [place] CORONARY 03/25/2017 LUIGI ROGEL MD Ot Z45.2 ENCOUNTER FOR ADJUSTMENT AND MANAGEMENT 03/25/2017 LUIGI ROGEL MD Ot Z79.01 ART PSYCHOTHERAPIST OR THERAPIST (CURRENT) USE OF 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 03/25/2017 LUIGI ROGEL MD Ot Z79.899 OTHER ART PSYCHOTHERAPIST OR THERAPIST (CURRENT) DRUG THERAPY 03/25/2017 LUIGI ROGEL MD [...] LEUK OF B-CELL TYPE 05/27/2017 JESUS TESFAYE MEDICAL PROGRAM SPECIALIST Ot E11.9 TYPE 2 DIABETES MELLITUS WITHOUT COMPLIC 05/27/2017 JESUS TESFAYE MEDICAL PROGRAM SPECIALIST Ot E78.5 HYPERLIPIDEMIA, UNSPECIFIED 05/27/2017 JESUS TESFAYE MEDICAL PROGRAM SPECIALIST Ot I12.9 HYPERTENSIVE CHRONIC KIDNEY DISEASE W ST 05/27/2017 JESUS TESFAYE Ot I25.10 ATHSCL HEART DISEASE OF [place] CORONARY 05/27/2017 JESUS TESFAYE MEDICAL PROGRAM SPECIALIST Ot Z79.01 ART PSYCHOTHERAPIST OR THERAPIST (CURRENT) USE OF 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 05/27/2017 JESUS TESFAYEP Ot Z79.899 OTHER ART PSYCHOTHERAPIST OR THERAPIST (CURRENT) DRUG THERAPY 05/27/2017 JESUS TESFAYEP Ot [...] MD, Ot I25.10 ATHSCL HEART DISEASE OF [place] CORONARY 05/27/2017 LUIGI ROGEL MD, Ot Z45.2 ENCOUNTER FOR ADJUSTMENT AND MANAGEMENT 05/27/2017 LUIGI ROGEL MD, Ot Z79.01 ART PSYCHOTHERAPIST OR THERAPIST (CURRENT) USE OF 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 05/27/2017 LUIGI ROGEL MD, Ot Z79.899 OTHER HALFWAY (CURRENT) DRUG THERAPY 05/27/2017 LUIGI ROGEL MD [...] MD, Ot I25.10 ATHSCL HEART DISEASE OF [place] CORONARY 05/28/2017 LUIGI ROGEL MD, Ot Z45.2 ENCOUNTER FOR ADJUSTMENT AND MANAGEMENT 05/28/2017 LUIGI ROGEL MD, Ot Z79.01 HALFWAY (CURRENT) USE OF 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 05/28/2017 LUIGI ROGEL MD, Ot Z79.899 OTHER HALFWAY (CURRENT) DRUG THERAPY 05/28/2017 LUIGI ROGEL MD, [...] MD Ot I25.10 ATHSCL HEART DISEASE OF [place] CORONARY 08/16/2017 LUIGI ROGEL MD, Ot Z79.01 HALFWAY (CURRENT) USE OF 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 08/16/2017 LUIGI ROGEL MD, Ot Z79.899 OTHER HALFWAY (CURRENT) DRUG THERAPY 08/16/2017 LUIGI ROGEL MD [...] MD Ot I25.10 ATHSCL HEART DISEASE OF [place] CORONARY 08/25/2017 LUIGI ROGEL MD Ot Z79.01 ART PSYCHOTHERAPIST OR THERAPIST (CURRENT) USE OF 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 08/25/2017 LUIGI ROGEL MD Ot Z79.899 OTHER ART PSYCHOTHERAPIST OR THERAPIST (CURRENT) DRUG THERAPY 08/25/2017 LUIGI ROGEL MD [...] LEUK OF B-CELL TYPE 08/25/2017 JESUS TESFAYE MEDICAL PROGRAM SPECIALIST Ot E11.9 TYPE 2 DIABETES MELLITUS WITHOUT COMPLIC 08/25/2017 JESUS TESFAYEP Ot E78.5 HYPERLIPIDEMIA, UNSPECIFIED 08/25/2017 JESUS TESFAYEP Ot I12.9 HYPERTENSIVE CHRONIC KIDNEY DISEASE W ST 08/25/2017 JESUS TESFAYEP Ot I25.10 ATHSCL HEART DISEASE OF [place] CORONARY 08/25/2017 JESUS TESFAYEP Ot Z79.01 ART PSYCHOTHERAPIST OR THERAPIST (CURRENT) USE OF 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 08/25/2017 JESUS TESFAYEP Ot Z79.899 OTHER HALFWAY (CURRENT) DRUG THERAPY 08/25/2017 JESUS TESFAYEP Ot [...] MD, Ot I10 ESSENTIAL (PRIMARY) HYPERTENSION 08/26/2017 EDUMNDO MITCHELL MD, Ot I25.10 ATHSCL HEART DISEASE OF [place] CORONARY 08/26/2017 EDMUNDO MITCHELL MD Ot Z79.01 ART PSYCHOTHERAPIST OR THERAPIST (CURRENT) USE OF 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 08/26/2017 EDMUNDO MITCHELL MD, Ot Z79.899 OTHER ART PSYCHOTHERAPIST OR THERAPIST (CURRENT) DRUG THERAPY 08/26/2017 EDMUNDO MITCHELL MD, [...] MD Ot I25.10 ATHSCL HEART DISEASE OF [place] CORONARY 09/03/2017 EDMUNDO MITCHELL MD, Ot Z79.01 HALFWAY (CURRENT) USE OF 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 09/03/2017 EDMUNDO MITCHELL MD, Ot Z79.899 OTHER ART PSYCHOTHERAPIST OR THERAPIST (CURRENT) DRUG THERAPY 09/03/2017 EDMUNDO MITCHELL MD, [...] MD Ot I25.10 ATHSCL HEART DISEASE OF [place] CORONARY 09/04/2017 JOSE JACOB MD Ot Z79.01 HALFWAY (CURRENT) USE OF 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 09/04/2017 JOSE JACOB MD Ot Z79.899 OTHER HALFWAY (CURRENT) DRUG THERAPY 09/04/2017 JOSE JACOB MD Ot Z95.1 PRESENCE OF AORTOCORONARY BYPASS GRAFT 09/18/2017 Ot V72.84 EXAM PRE- OPERATIVE NOS 09/18/2017 Ot 427.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 09/18/2017 Ot 785.1 PALPITATIONS 09/18/2017 Ot 427.31 ATRIAL FIBRILLATION 09/18/2017 Ot 427.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 09/18/2017 Ot 785.1 PALPITATIONS 09/18/2017 OSCAR VALENCIA Ot 414.01 CORONARY ATHEROSCLEROSIS OF [place] CORON 09/18/2017 OSCAR VALENCIA Ot 427.31 ATRIAL FIBRILLATION 09/18/2017 OSCAR VALENCIA Ot V45.81 AORTOCORONARY BYPASS 09/18/2017 ANAOTLIY LUNA MEDICAL PROGRAM SPECIALIST Ot 786.09 RESPIRATORY ABNORM NEC 09/18/2017 ANATOLIY LUNA MEDICAL PROGRAM SPECIALIST Ot 786.2 COUGH 09/18/2017 Ot V72.84 EXAM PRE- OPERATIVE NOS 09/18/2017 DEIDRE AMIN ONLINE ADVERTISING DIRECTOR Ot 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 INFARCT 09/18/2017 DEIDRE AMIN ONLINE ADVERTISING DIRECTOR Ot 780.8 GENERALIZED HYPERHIDROSIS 09/18/2017 ALEX CHANDLER Ot 288.61 LYMPHOCYTOSIS (SYMPTOMATIC) 09/18/2017 PEBBLES FRANCO, LUIGI Foote Ot 204.10 CHRONIC LYMPHOID LEUKEMIA, 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 09/18/2017 PEBBLES RFANCO, LUIGI Foote Ot 562.10 DIVERTICULOSIS COLON (W/O MENT OF HEMORR 09/18/2017 LUIGI ROGEL MD Ot 571.8 CHRONIC LIVER DIS NEC 09/18/2017 MAURO TESFAYEAH S RUPINDER Ot C91.10 CHRONIC LYMPHOCYTIC LEUK OF B-CELL TYPE 09/18/2017 BRIEN JESUS Arreguin RUPINDER Ot E11.9 TYPE 2 DIABETES MELLITUS WITHOUT COMPLIC 09/18/2017 MAURO TESFAYETISH Arreguin RUPINDER Ot E78.5 HYPERLIPIDEMIA, UNSPECIFIED 09/18/2017 MAURO TESFAYETISH Arreguin RUPINDER Ot I12.9 HYPERTENSIVE CHRONIC KIDNEY DISEASE W ST 09/18/2017 MAURO TESFAYETISH Arreguin RUPINDER Ot I25.10 ATHSCL HEART DISEASE OF [place] CORONARY 09/18/2017 MAURO TESFAYETISH Arreguin RUPINDER Ot Z79.01 ART PSYCHOTHERAPIST OR THERAPIST (CURRENT) USE OF 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 09/18/2017 MAURO TESFAYETISH Arreguin RUPINDER Ot Z79.899 OTHER HALFWAY (CURRENT) DRUG THERAPY 09/18/2017 MAURO TESFAYETISH Arreguin [...] MD, Ot I25.10 ATHSCL HEART DISEASE OF [place] CORONARY 09/18/2017 JOSE JACOB MD Ot Z79.01 ART PSYCHOTHERAPIST OR THERAPIST (CURRENT) USE OF 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 09/18/2017 JOSE JACOB MD Ot Z79.899 OTHER ART PSYCHOTHERAPIST OR THERAPIST (CURRENT) DRUG THERAPY 09/18/2017 JOSE JACOB MD [...] MD Ot I25.10 ATHSCL HEART DISEASE OF [place] CORONARY 10/10/2017 JOSE JACOB MD Ot Z79.01 HALFWAY (CURRENT) USE OF 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 10/10/2017 JOSE JACOB MD Ot Z79.899 OTHER ART PSYCHOTHERAPIST OR THERAPIST (CURRENT) DRUG THERAPY 10/10/2017 JOSE JACOB MD [...] CCDS Ot I25.10 ATHSCL HEART DISEASE OF [place] CORONARY 10/15/2017 YEHUDA FRANCO FACC, ALI FACP [...] MD Ot I25.10 ATHSCL HEART DISEASE OF [place] CORONARY 10/27/2017 JOSE JACOB MD Ot Z79.01 ART PSYCHOTHERAPIST OR THERAPIST (CURRENT) USE OF 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 10/27/2017 JOSE JACOB MD Ot Z79.899 OTHER ART PSYCHOTHERAPIST OR THERAPIST (CURRENT) DRUG THERAPY 10/27/2017 JOSE JACOB MD [...] MD Ot I25.10 ATHSCL HEART DISEASE OF [place] CORONARY 12/02/2017 JOSE JACOB MD Ot Z79.01 ART PSYCHOTHERAPIST OR THERAPIST (CURRENT) USE OF 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 12/02/2017 JOSE JACOB MD Ot Z79.899 OTHER HALFWAY (CURRENT) DRUG THERAPY 12/02/2017 JOSE JACOB MD [...] MD Ot I25.10 ATHSCL HEART DISEASE OF [place] CORONARY 12/03/2017 JOSE JACOB MD Ot Z79.01 ART PSYCHOTHERAPIST OR THERAPIST (CURRENT) USE OF 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 12/03/2017 JOSE JACOB MD Ot Z79.899 OTHER ART PSYCHOTHERAPIST OR THERAPIST (CURRENT) DRUG THERAPY 12/03/2017 JOSE JACOB MD [...] MD Ot I25.10 ATHSCL HEART DISEASE OF [place] CORONARY 12/12/2017 JOSE JACOB MD Ot Z79.01 ART PSYCHOTHERAPIST OR THERAPIST (CURRENT) USE OF 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 12/12/2017 JOSE JACOB MD Ot Z79.899 OTHER HALFWAY (CURRENT) DRUG THERAPY 12/12/2017 JOSE JACOB MD [...] MD Ot I25.10 ATHSCL HEART DISEASE OF [place] CORONARY 01/09/2018 JOSE JACOB MD Ot Z79.01 HALFWAY (CURRENT) USE OF 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 01/09/2018 JOSE JACOB MD Ot Z79.899 OTHER HALFWAY (CURRENT) DRUG THERAPY 01/09/2018 JOSE JACOB MD Ot Z95.1 PRESENCE OF AORTOCORONARY BYPASS GRAFT 02/03/2018 ASTRID WISDOM MD Ot E78.00 PURE HYPERCHOLESTEROLEMIA, UNSPECIFIED 02/03/2018 ASTRID WISDOM MD Ot G47.30 SLEEP APNEA, UNSPECIFIED 02/03/2018 ASTRID WISDOM MD Ot I25.10 ATHSCL HEART DISEASE OF [place] CORONARY 02/03/2018 ASTRID WISDOM MD Ot I25.2 [...] INI 02/03/2018 ASTRID WISDOM MD Ot Z79.01 ART PSYCHOTHERAPIST OR THERAPIST (CURRENT) USE OF 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 02/03/2018 ASTRID WISDOM MD, Ot Z79.82 HALFWAY (CURRENT) USE OF ASPIRIN 02/03/2018 ASTRID WISDOM [...] MD Ot I25.10 ATHSCL HEART DISEASE OF [place] CORONARY 02/05/2018 ASTRID WISDOM MD Ot I25.2 [...] INI 02/05/2018 ASTRID WISDOM MD Ot Z79.01 ART PSYCHOTHERAPIST OR THERAPIST (CURRENT) USE OF 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 02/05/2018 ASTRID WISDOM MD, Ot Z79.82 HALFWAY (CURRENT) USE OF ASPIRIN 02/05/2018 ASTRID WISDOM [...] MD Ot I25.10 ATHSCL HEART DISEASE OF [place] CORONARY 03/04/2018 JOSE JACOB MD Ot Z79.01 ART PSYCHOTHERAPIST OR THERAPIST (CURRENT) USE OF 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 03/04/2018 JOSE JACOB MD Ot Z79.899 OTHER ART PSYCHOTHERAPIST OR THERAPIST (CURRENT) DRUG THERAPY 03/04/2018 JOSE JACOB MD [...] MD Ot I25.10 ATHSCL HEART DISEASE OF [place] CORONARY 03/05/2018 JOSE JACOB MD Ot Z79.01 ART PSYCHOTHERAPIST OR THERAPIST (CURRENT) USE OF 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 03/05/2018 JOSE JACOB MD Ot Z79.899 OTHER HALFWAY (CURRENT) DRUG THERAPY 03/05/2018 JOSE JACOB MD [...] MD Ot I25.10 ATHSCL HEART DISEASE OF [place] CORONARY 03/25/2018 JOSE JACOB MD Ot Z79.01 ART PSYCHOTHERAPIST OR THERAPIST (CURRENT) USE OF 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 03/25/2018 JOSE JACOB MD Ot Z79.899 OTHER ART PSYCHOTHERAPIST OR THERAPIST (CURRENT) DRUG THERAPY 03/25/2018 JOSE JACOB MD [...] MD Ot I25.10 ATHSCL HEART DISEASE OF [place] CORONARY 04/10/2018 JOSE JACOB MD Ot Z79.01 HALFWAY (CURRENT) USE OF 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 04/10/2018 JOSE JACOB MD Ot Z79.899 OTHER ART PSYCHOTHERAPIST OR THERAPIST (CURRENT) DRUG THERAPY 04/10/2018 JOSE JACOB MD [...] MD Ot I25.10 ATHSCL HEART DISEASE OF [place] CORONARY 06/03/2018 JOSE JACOB MD Ot Z79.01 ART PSYCHOTHERAPIST OR THERAPIST (CURRENT) USE OF 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 06/03/2018 JOSE JACOB MD Ot Z79.899 OTHER HALFWAY (CURRENT) DRUG THERAPY 06/03/2018 JOSE JACOB MD [...] MD Ot I25.10 ATHSCL HEART DISEASE OF [place] CORONARY 06/04/2018 JOSE JACOB MD Ot Z79.01 ART PSYCHOTHERAPIST OR THERAPIST (CURRENT) USE OF 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 06/04/2018 JOSE JACOB MD Ot Z79.899 OTHER ART PSYCHOTHERAPIST OR THERAPIST (CURRENT) DRUG THERAPY 06/04/2018 JOSE JCAOB MD Ot Z95.1 PRESENCE OF AORTOCORONARY BYPASS GRAFT 06/11/2018 Ot 427.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 06/11/2018 Ot 785.1 PALPITATIONS 06/11/2018 Ot 427.31 ATRIAL FIBRILLATION 06/11/2018 Ot 427.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 06/11/2018 Ot 785.1 PALPITATIONS 06/11/2018 OSCAR VALENCIA Ot 414.01 CORONARY ATHEROSCLEROSIS OF [place] CORON 06/11/2018 OSCAR VALENCIA Ot 427.31 ATRIAL FIBRILLATION 06/11/2018 OSCAR VALENCIA Ot V45.81 AORTOCORONARY BYPASS 06/11/2018 ANATOLIY LUNA MEDICAL PROGRAM SPECIALIST Ot 786.09 RESPIRATORY ABNORM NEC 06/11/2018 ANATOLIY LUNA MEDICAL PROGRAM SPECIALIST Ot 786.2 COUGH 06/11/2018 Ot V72.84 EXAM PRE- OPERATIVE NOS 06/11/2018 DEIDRE AMIN ONLINE ADVERTISING DIRECTOR Ot 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 INFARCT 06/11/2018 DEIDRE AMIN ONLINE ADVERTISING DIRECTOR Ot 780.8 GENERALIZED HYPERHIDROSIS 06/11/2018 ALEX CHANDLER MEDICAL PROGRAM SPECIALIST Ot 288.61 LYMPHOCYTOSIS (SYMPTOMATIC) 06/11/2018 LUIGI ROGEL [...] E78.5 HYPERLIPIDEMIA, UNSPECIFIED 06/11/2018 TESFAYE, HILAH S MEDICAL PROGRAM SPECIALIST Ot I12.9 HYPERTENSIVE CHRONIC KIDNEY DISEASE W ST 06/11/2018 JESUS TESFAYE MEDICAL PROGRAM SPECIALIST Ot I25.10 ATHSCL HEART DISEASE OF [place] CORONARY 06/11/2018 JESUS TESFAYE MEDICAL PROGRAM SPECIALIST Ot Z79.01 HALFWAY (CURRENT) USE OF 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 06/11/2018 TESFAYEJESUS Arreguin MEDICAL PROGRAM SPECIALIST Ot Z79.899 OTHER HALFWAY (CURRENT) DRUG THERAPY 06/11/2018 JESUS TESFAYE MEDICAL PROGRAM SPECIALIST Ot Z95.1 PRESENCE OF AORTOCORONARY BYPASS GRAFT [...] Ot R31.9 HEMATURIA, UNSPECIFIED 06/11/2018 ALEX CHANDLER MEDICAL PROGRAM SPECIALIST Ot J18.9 PNEUMONIA, UNSPECIFIED ORGANISM 06/11/2018 ALEX CHANDLER MEDICAL PROGRAM SPECIALIST Ot R05 COUGH 06/11/2018 YEHUDA FRANCO FACC, LUIS FACP CCDS Ot C91.10 CHRONIC LYMPHOCYTIC LEUK OF B-CELL TYPE 06/11/2018 YEHUDA FRANCO FACC, ALI FACP CCDS Ot E78.4 OTHER HYPERLIPIDEMIA 06/11/2018 YEHUDA FRANCO FACC, ALI FACP CCDS Ot I10 ESSENTIAL (PRIMARY) HYPERTENSION 06/11/2018 YEHUDA FRANCO FACC, ALI FACP CCDS Ot I25.10 ATHSCL HEART DISEASE OF [place] CORONARY 06/11/2018 YEHUDA FRANCO FACC, ALI FACP CCDS Ot I65.23 OCCLUSION AND STENOSIS OF BILATERAL [place] 06/11/2018 YEHUDA FRANCO FACC, ALI FACP CCDS Ot R07.89 OTHER CHEST PAIN 06/11/2018 JOSE JACOB MD Ot C91.10 CHRONIC LYMPHOCYTIC LEUK OF B-CELL TYPE 06/11/2018 JOSE JACOB MD Ot E11.9 TYPE 2 DIABETES MELLITUS WITHOUT COMPLIC 06/11/2018 JOSE JACOB MD Ot E78.5 HYPERLIPIDEMIA, UNSPECIFIED 06/11/2018 JOSE JACOB MD Ot I10 ESSENTIAL (PRIMARY) HYPERTENSION 06/11/2018 JOSE JACOB MD Ot I25.10 ATHSCL HEART DISEASE OF [place] CORONARY 06/11/2018 JOSE JACOB MD Ot Z79.01 ART PSYCHOTHERAPIST OR THERAPIST (CURRENT) USE OF 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 06/11/2018 JOSE JACOB MD Ot Z79.899 OTHER ART PSYCHOTHERAPIST OR THERAPIST (CURRENT) DRUG THERAPY 06/11/2018 JOSE JACOB MD [...] MD Ot I25.10 ATHSCL HEART DISEASE OF [place] CORONARY 06/12/2018 JOSE JACOB MD Ot Z79.01 ART PSYCHOTHERAPIST OR THERAPIST (CURRENT) USE OF 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 06/12/2018 JOSE JACOB MD Ot Z79.899 OTHER ART PSYCHOTHERAPIST OR THERAPIST (CURRENT) DRUG THERAPY 06/12/2018 JOSE JACOB MD [...] MD Ot I25.10 ATHSCL HEART DISEASE OF [place] CORONARY 06/16/2018 JOSE JACOB MD Ot Z79.01 ART PSYCHOTHERAPIST OR THERAPIST (CURRENT) USE OF 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 06/16/2018 JOSE JACOB MD Ot Z79.899 OTHER ART PSYCHOTHERAPIST OR THERAPIST (CURRENT) DRUG THERAPY 06/16/2018 JOSE JACOB MD [...] MD, Ot I25.10 ATHSCL HEART DISEASE OF [place] CORONARY 07/07/2018 JOSE JACOB MD, Ot Z79.01 HALFWAY (CURRENT) USE OF 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 07/07/2018 JOSE JACOB MD, Ot Z79.899 OTHER ART PSYCHOTHERAPIST OR THERAPIST (CURRENT) DRUG THERAPY 07/07/2018 JOSE JACOB MD, [...] Status Pt. Type Provider Facility Loc./Unit Complaint [id number] 08/17/2018 00:25:00 08/17/2018 23:59:59 CLS Preadmit JOSE JACOB MD [facility] ONC [id number] 08/07/2018 11:29:00 08/07/2018 12:48:00 DIS Outpatient JEFFERY AYALA APRN Via [facility] REHAB PRIMARY OA KNEE [id number] 06/11/2018 08:14:00 06/16/2018 00:01:00 DIS Outpatient JOSE JACOB MD [facility] ONC [id number] 03/05/2018 10:41:00 06/03/2018 00:01:00 DIS Outpatient JOSE JACOB MD [facility] ONC [id number] 12/04/2017 12:48:00 03/04/2018 00:01:00 DIS Outpatient JOSE JACOB MD [facility] ONC [id number] 02/03/2018 13:24:00 02/03/2018 16:10:00 DIS Emergency ASTRID WISDOM MD [facility] ER KIDNEY ISSUES [id number] 12/04/2017 14:59:00 12/04/2017 23:59:59 CLS Preadmit NICHOLAS CASTRO MD [facility] RAD CHRONIC KIDNEY DISEASE, STAGE 3 [id number] 09/03/2017 13:50:00 12/02/2017 00:01:00 DIS Outpatient JOSE JACOB MD [facility] ONC [id number] 09/23/2017 07:18:00 09/23/2017 23:59:59 CLS Outpatient YEHUDA FRANCO FACC, LUIS ANNE CCDS [facility] CARD CAD I25.10 [id number] 08/25/2017 13:22:00 09/03/2017 13:03:00 DIS Outpatient EDMUNDO MITCHELL MD [facility] ONC [id number] 05/27/2017 08:47:00 08/16/2017 00:01:00 DIS Outpatient LUIGI ROGEL MD [facility] ONC [id number] 02/18/2017 10:19:00 03/25/2017 00:01:00 DIS Outpatient LUIGI ROGEL MD [facility] ONC [id number] 03/12/2017 06:00:00 03/12/2017 10:10:00 DIS Outpatient KINJAL PORTER MD [facility] SDC BASAL CELL CARCINOMA [id number] 03/05/2017 08:40:00 03/05/2017 09:17:00 DIS Outpatient KINJAL PORTER MD [facility] PREOP BASAL CELL CARCINOMA [id number] 01/30/2017 09:31:00 01/30/2017 12:01:00 DIS Outpatient AKIKEN GREER DO [facility] REHAB RT SHOULDER PAIN; PARTIAL RCT TEAR [id number] 12/26/2016 09:44:00 12/26/2016 23:59:59 CLS Outpatient ALEX CHANDLER [facility] RAD PNEUMONIA,COUGH [id number] 11/27/2016 08:29:00 12/03/2016 00:01:00 DIS Outpatient LUIGI ROGEL MD [facility] ONC [id number] 07/31/2016 09:08:00 08/23/2016 16:22:00 DIS Outpatient LUIGI ROGEL MD [facility] ONC [id number] 06/07/2016 11:12:00 06/07/2016 23:59:59 CLS Outpatient MADYSON MARTINEZ MD [facility] RAD HEMATERIA [id number] 05/01/2016 08:52:00 05/21/2016 00:01:00 DIS Outpatient LUIGI ROGEL MD [facility] ONC [id number] 03/28/2016 15:24:00 03/28/2016 15:56:00 DIS Emergency MARIETTA VITAL MD [facility] ER HEAD LAC [id number] 02/14/2016 09:36:00 02/14/2016 00:01:00 DIS Outpatient LUIGI ROGEL MD [facility] ONC [id number] 11/15/2015 08:33:00 11/15/2015 00:01:00 DIS Outpatient LUIGI ROGEL MD [facility] ONC [id number] 09/15/2015 06:18:00 09/15/2015 11:26:00 DIS Outpatient KINJAL PORTER MD [facility] SDC LEUKEMIA [id number] 09/14/2015 05:34:00 09/14/2015 23:59:59 CLS Outpatient KINJAL PORTER MD [facility] PREOP PORT PLACEMENT [id number] 09/13/2015 13:29:00 09/13/2015 23:59:59 CLS Outpatient JESUS TESFAYE [facility] ONC [id number] 07/26/2015 13:23:00 08/16/2015 00:01:00 DIS Outpatient LUIGI ROGEL MD [facility] ONC [id number] 08/01/2015 09:03:00 08/01/2015 23:59:59 CLS Outpatient LUIGI ROGEL MD [facility] RAD MULTIPLE MYLOMA [id number] 07/03/2015 09:55:00 07/03/2015 23:59:59 CLS Outpatient ALEX CHANDLER [facility] LAB ELEVATED WBC, ELEVATED LYMPHOCYTES [id number] 05/02/2015 10:30:00 05/02/2015 23:59:59 CLS Outpatient DEIDRE AMIN APRN [facility] CARD NIGHT SWEATS [id number] 05/09/2014 21:02:00 05/10/2014 06:25:00 DIS Outpatient MOSHE MARIE WATCH CASE POLISHER [facility] SLEEP EXCESSIVE DAYTIME SLEEPINESS [id number] 08/04/2013 12:10:00 08/04/2013 13:10:00 DIS Outpatient JENNY KIM MD [facility] CR STATUS POST ACB [id number] 08/02/2013 13:31:00 08/02/2013 00:01:00 DIS Outpatient JENNY KIM MD [facility] CR STATUS POST ACB [id number] 06/08/2013 16:44:00 06/08/2013 23:59:59 CLS Outpatient ANATOLIY LUNA [facility] RAD COUGH [id number] 04/09/2013 12:56:00 04/10/2013 11:10:00 DIS Inpatient CAT PERES MD [facility] ICU IRREGULAR HEART RATE [id number] 04/01/2013 08:50:00 04/01/2013 23:59:59 CLS Outpatient OSCAR VALENCIA [facility] CARD CAD [id number] 11/06/2018 11:56:00 PEN Preadmit AKIKEN GREER DO [facility] REHAB S/P L TKR [id number] 01/23/2016 14:14:00 Document Registration [id number] 01/23/2016 14:14:00 Document Registration [id number] 01/23/2016 14:14:00 Document Registration [id number] 07/14/2015 15:25:00 Document Registration [id number] 07/14/2015 15:25:00 Document Registration [id number] 02/03/2015 06:54:00 Document Registration [id number] 02/02/2015 05:56:00 Document Registration [id number] 03/09/2013 08:10:00 Document Registration [id number] 02/26/2013 10:43:00 Document Registration [id number] 08/24/2012 06:57:00 Document Registration [id number] 08/21/2012 08:34:00 Document Registration [id number] 08/02/2011 10:03:00 Document Registration [id number] 06/12/2011 12:03:00 Document Registration [id number] 06/03/2011 12:40:00 Document Registration [id number] 04/01/2011 11:20:00 Document Registration [id number] 01/25/2011 09:37:00 Document Registration [id number] 10/22/2006 15:56:00 Document Registration [id number] 09/12/2006 06:47:00 Document Registration [id number] 10/06/2017 23:41:23 10/06/2017 23:59:59 CLS Outpatient
--- NOTE | 2018-11-01 23:33 | History & Physicial-Cardiolgy ---
HPI-Cardiology Cardiology Consultation: Date of Consultation 11/01/18 Date of Admission Attending Physician Amanda Husain MD Admitting Physician Amanda Husain MD Consulting Physician Shoshana CAR MD HPI: Time Seen by a Provider: 10:20 Chief Complaint: Chest pain This is a 73 [address] old patient of Dr brown with history of CABG x2 in 2013. PCI in LAD and left circumflex artery.. Recent knee surgery. On coumadin. Who presented with severe chest pain. Chest pain started 30 minutes before arrival. Chest pain was substernal and in the left side of the chest. It radiates to the left arm and left jaw. Moderate intensity. No associated shortness of breath, palpitations, nausea and vomiting. Patient took aspirin when the chest pain started. Patient takes Coumadin for CAD and possible atrial fibrillation. Previous history of TN and cardioversion for atrial fibrillation. Maze procedure was done during cardiac surgery. Review of Systems-Cardiology Review of Systems Constitutional: As described under HPI; No As described under HPI, No no symptoms reported, No chills, No fever, No lightheadedness Eyes: No As described under HPI, No no symptoms reported, No blindness, No blurred vision, No contact lenses, No drainage, No decreased acuity, No foreign body sensation, No pain, No vision change Ears/Nose/Throat: No As described under HPI, No no symptoms reported, No chronic hearing loss, No ear discharge, No ear pain, No nasal drainage, No ulcerations Respiratory: No no symptoms reported; As described under HPI; No As described under HPI, No cough, No orthopnea, No shortness of breath, No SOB with excertion Cardiovascular: No no symptoms reported; As described under HPI; No As described under HPI; chest pain; No edema, No irregular heart rate, No lightheadedness, No palpitations Gastrointestinal: No no symptoms reported, No As described under HPI, No abdomen distended, No abdominal pain, No blood streaked bowels, No constipation , No diarrhea, No nausea, No vomiting, No stool coloration changes Genitourinary: No As described under HPI, No burning, No dysuria, No discharge , No frequency, No flank pain, No hematuria, No urgency Skin: No rash, No skin related problems, No ulcerations Psychiatric/Neurological: No anxiety, No depression, No seizure, No focal weakness, No syncope Hematologic: No bleeding abnormalities [id number] Hx Patient Social History Alcohol Use: Denies Use Recreational Drug Use: No Smoking Status: Former Smoker Former smoker/When Quit: Sep 15, 1966 Type Used: Cigarettes Recent Foreign Travel: No Recent Infectious Disease Expo: No Hospitalization with Isolation: Denies Immunizations Up To Date Tetanus Booster (TDap): Unknown Date of Pneumonia Vaccine: Aug 26, 2016 Date of Influenza Vaccine: Aug 26, 2016 Past Medical History PMH As described under Assessment. Allergies and Home Medications Allergies Coded Allergies: No Known Drug Allergies (Unverified , 03/05/17) Home Medications Amiodarone Hcl 200 Mg Tab, 200 MG PO DAILY, (Reported) Amlodipine Besylate 5 Mg Tablet, 5 MG PO DAILY, (Reported) Aspirin 81 Mg Tab.chew, 81 MG PO HS, (Reported) Atorvastatin Calcium 80 Mg Tablet, 80 MG PO HS, (Reported) Cholecalciferol (Vitamin D3) 1,000 Unit Capsule, 1,000 UNIT PO DAILY, (Reported) Fenofibric Acid (Choline) 135 Mg Capsule.dr, 135 MG PO HS, (Reported) Finasteride 5 Mg Tablet, 5 MG PO DAILY, (Reported) Hydrocodone/Acetaminophen 1 Each Tablet, 1 EACH PO Q6H PRN for PAIN-MODERATE, ( Reported) Metoprolol Tartrate 25 Mg Tablet, 25 MG PO BID, (Reported) Omeprazole 20 Mg Capsule.dr, 20 MG PO HS, (Reported) Ramipril 10 Mg Capsule, 10 MG PO DAILY, (Reported) Warfarin Sodium 2.5 Mg Tablet, 2.5 MG PO Fri, (Reported) Warfarin Sodium 5 Mg Tablet, 5 MG PO Fri SAT, (Reported) Patient Home Medication List Home Medication List Reviewed: Yes Physical Exam-Cardiology Physical Exam Vital Signs/I&O 11/02/18 11/02/18 11/02/18 11/02/18 05:00 06:00 07:00 07:16 Pulse 54 57 62 62 Resp 20 13 B/P (MAP) 153/78 (103) 150/78 (102) 151/68 (95) Pulse Ox 98 99 99 O2 Delivery Nasal Cannula Nasal Cannula Nasal Cannula O2 Flow Rate 2.00 2.00 2.00 11/02/18 11/02/18 11/02/18 11/02/18 08:00 08:00 12:00 12:07 Pulse 64 59 57 Resp 19 12 B/P (MAP) 134/73 (93) Pulse Ox 95 99 O2 Delivery Nasal Cannula Nasal Cannula Room Air O2 Flow Rate 2.00 2.00 11/02/18 11/02/18 12:30 16:45 Temp 98.7 Pulse 64 Resp 20 B/P (MAP) 147/79 (101) Pulse Ox 98 95 O2 Delivery Nasal Cannula Room Air Capillary Refill : NONE Constitutional: appears stated age, AAO x 3, apparent distress, well-developed , well-nourished HEENT: PERRL; No normal ENT inspection, No TMs normal, No pharynx normal, No scleral icterus (R), No scleral icterus (L), No pale conjunctivae (R), No pale conjunctivae (L), No photophobia, No TM abnormal (R), No TM abnormal (L), No pharyngeal erythema, No tonsillar exudate, No other, No discharge, No EOMI; hearing is well preserved; No hard of hearing; oral hygience is good; No ulceration, No xanthelasmas are seen Neck: No non-tender, No full range of motion, No supple, No normal inspection, No carotid bruit, No limited range of motion, No lymphadenopathy (R), No lymphadenopathy (L), No tender lateral, No tender midline, No thyromegaly, No other; carotid pulses are 2 + bilaterally; No with good upstrokes Respiratory: No accessory muscle use, No respiratory distress, No chest tender , No chest expansion is symmetric; chest is bilaterally symmetric; No lungs clear to percussion; lungs clear to auscultation; No crackles, No rhonchi, No rales, No stridor, No wheezing, No pleural rub, No other Cardiovascular: regular rate-rhythm; No irregularly irregular, No extra beats, No parasternal heave is noted, No JVD, No edema, No bradycardia, No tachycardia , No point of maximal impulse, No cardiac thrills are palpable; S1 and S2; No gallop/S3, No gallop/S4, No diastolic murmur, No systolic murmur, No friction rub, No click, No other Gastrointestinal: No tender, No soft, No round, No distended, No pulsatile mass , No organomegaly, No guarding, No rebound, No tenderness, No hernia, No mass, No audible bowel sounds, No abnormal bowel sounds, No abdominal bruits, No spleenomegaly, No other Rectal: deferred Extremities: No normal range of motion, No non-tender, No normal inspection, No pedal edema, No calf tenderness, No normal capillary refill, No pelvis stable , No calf tenderness, No inflammation, No pedal edema, No slow capillary refill , No swelling, No other, No abrasion, No clubbing, No cyanosis, No ecchymosis, No laceration, No no lower extremity edema bilateral, No significant edema, No tenderness, No wound Neurologic/Psychiatric: no motor/sensory deficits, alert, normal mood/affect, oriented x 3, power is 5/5 both on sides Skin: No normal color, No warm/dry, No cyanosis, No cool, No diaphoresis, No damp, No ecchymosis, No jaundice, No mottled, No pallor, No rash, No tattoos/ piercings, No ulcerations, No rash on exposed areas, No ulcerations on exposed areas, No other Data Review Labs Laboratory Tests 11/01/18 21:41: White Blood Count 7.1, Red Blood Count 4.03L, Hemoglobin 12.2L, Hematocrit 37L, Mean Corpuscular Volume 91, Mean Corpuscular Hemoglobin 30, Mean Corpuscular Hemoglobin Concent 33, Red Cell Distribution Width 15.3H, Platelet Count 343, Mean Platelet Volume 9.7, Neutrophils (%) (Auto) 57, Lymphocytes (%) (Auto) 31, Monocytes (%) (Auto) 8, Eosinophils (%) (Auto) 4, Basophils (%) (Auto) 0, Neutrophils # (Auto) 4.1, Lymphocytes # (Auto) 2.2, Monocytes # (Auto) 0.6, Eosinophils # (Auto) 0.3, Basophils # (Auto) 0.0, Prothrombin Time 37.6H, INR Comment 3.8H, Activated Partial Thromboplast Time 55H, Sodium Level 140, Potassium Level 4.0, Chloride Level 107, Carbon Dioxide Level 22, Anion Gap 11, Blood Urea Nitrogen 24H, Creatinine 1.82H, Estimat Glomerular Filtration Rate 36 , BUN/Creatinine Ratio 13, Glucose Level 115H, Calcium Level 9.1, Corrected Calcium 9.3, Magnesium Level 2.1, Total Bilirubin 1.0, Aspartate Amino Transf ( AST/SGOT) 17, Alanine Aminotransferase (ALT/SGPT) 20, Alkaline Phosphatase 74, Myoglobin 51.3, Troponin I < 0.30, Total Protein 6.9, Albumin 3.8 11/02/18 05:20: White Blood Count 7.1, Red Blood Count 3.65L, Hemoglobin 10.9L, Hematocrit 33L, Mean Corpuscular Volume 92, Mean Corpuscular Hemoglobin 30, Mean Corpuscular Hemoglobin Concent 33, Red Cell Distribution Width 15.0H, Platelet Count 265, Mean Platelet Volume 9.9, Neutrophils (%) (Auto) 65, Lymphocytes (%) (Auto) 22, Monocytes (%) (Auto) 10, Eosinophils (%) (Auto) 3, Basophils (%) (Auto) 0, Neutrophils # (Auto) 4.6, Lymphocytes # (Auto) 1.6, Monocytes # (Auto) 0.7, Eosinophils # (Auto) 0.2, Basophils # (Auto) 0.0, Prothrombin Time 41.9H, INR Comment 4.3H, Sodium Level 139, Potassium Level 4.0, Chloride Level 109H, Carbon Dioxide Level 18L, Anion Gap 12, Blood Urea Nitrogen 19H, Creatinine 1.35H, Estimat Glomerular Filtration Rate 52, BUN/Creatinine Ratio 14, Glucose Level 88, Calcium Level 8.7, Magnesium Level 2.0, Troponin I 6.89*H, Phosphorus Level 3.3, Triglycerides Level 190H, Cholesterol Level 139, LDL Cholesterol Direct 86, VLDL Cholesterol 38, HDL Cholesterol 31L ECG Impression ECG Initial ECG Impression: Acute TN A/P-Cardiology Assessment/Admission Diagnosis Inferior STEMI, CAD/CABG/PCI, HTN, Chronic kidney disease, 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 Paroxysmal atrial fibrillation, Recent knee surgery, Anemia Admission Status: Inpatient Order (span 2 midnights) Reason for Inpatient Admission: STEMI Plan Inferior STEMI - Emergent coronary angiography. aspirin, brilinta bolus. MICHOACANO - iv fluids, CAD/CABG -continue aspirin. Will likely require dual antiplatelet therapy. Supratherapeutic INR - 3.8. Need to hold coumadin. HTN - will continue outpatient meds. Hyperlipidemia continue statin. Anemia, Recent knee surgery. Dr. Brown to take over cardiology care from tomorrow. Clinical Quality Measures AMI/AHF: ASA po Prior to arrival: Yes Shoshana CAR MD Nov 01, 2018 11:33 pm
--- NOTE | 2018-11-01 23:34 | Coronary Angiography & PCI ---
Coronary Angiography & PCI DATE OF PROCEDURE: 11/01/18 INDICATION: Inferior STEMI PREOPERATIVE DIAGNOSIS: Inferior STEMI POSTOPERATIVE DIAGNOSIS: Distal RCA occlusion, PTCA HISTORY: This is a 73 [address] old patient of Dr mcclain with history of CABG x2 in 2013. PCI in LAD and left circumflex artery. Recent knee surgery. On coumadin. Who presented with severe chest pain and inferior STEMI.Therefore, the patient was scheduled for emergent coronary angiography. PROCEDURES PERFORMED: 1.Coronary angiography. 2.Left heart catheterization. 3. Aortic arch angiography. 4. Graft Angiography. DELAROSA injection. 3. PTCA to the distal RCA. COMPLICATIONS: None. SPECIMENS: None. ESTIMATED BLOOD LOSS: 10 mL ANESTHESIA: Conscious sedation ANTICOAGULATION: IV heparin CONTRAST: 210 mL. FLUOROSCOPY: 17.53 minutes. FLOUROSCOPY DOSE: [id number] mgy. PROCEDURE DETAILS: The patient is a 73 male and was brought to the pharmacy laboratory technician after informed consent was taken. All the risks and complications were explained in detail; this included the risk of bleeding, vascular damage, stroke , [place] and even . The patient was draped and prepped in the usual sterile fashion. Access was gained in the right femoral artery. Diagnostic angiography was performed with a JR4 and JL4 catheter. Left heart catheterization was performed with a JR4 catheter. Aortic arch angiogram was performed with a JR4 catheter. SVG was engaged with a JR4 guide catheter. DELAROSA was engaged with a DELAROSA catheter. FINDINGS: 1.Left main: Moderate ostial stenosis. 2.LAD: Patent stent in the proximal and distal LAD. Moderate diffuse disease with no focal stenosis. 3.Left circumflex artery: Moderate diffuse disease. 4.RCA: Moderate diffuse disease. Distal occlusion. 5.Left heart catheterization: LV pressure 127/3 mmHg. LVEDP 11 mmHg. Aortic pressure 124/63 mmHg. Normal LV function with no wall motion abnormalities. No gradient across the aortic valve. 6. Aortic arch angiography: Only one graft visible. No evidence of dissection or aneurysm. Patent proximal segments of the great arteries. 7. SVG to OM1: Patent. 8. DELAROSA: Patent. Diffuse distal disease after the distal anastomotic site. RECOMMENDATIONS: Intervention the distal RCA is recommended. INTERVENTION DETAILS: JR4 Guide, Whisper guide wire, heparin IV. ACT x1 was 260 seconds. The lesion was crossed with difficulty in the distal RCA and a Emerge 2.0x12 balloon was done at nominal pressure. Door to balloon time was 78 minutes. Small artery ( diameter < 1.5mm), not amenable to PCI. Balloon inflation done and recanalization achieved, however there was distal disease resulting in slow flow. No stents were placed. Patient chest pain resolved and he was pain free at the end of the procedure. Right femoral artery was closed with the mynx device. CONCLUSIONS: 1. PTCA to distal RCA. Small artery (diameter <1.5mm) therefore no stents done. 2. Dual antiplatelet therapy. 3. Echocardiogram. Rickey Meyer MD, FACP, FACC, [facility] Interventional Cardiology Shoshana MEYER MD Nov 01, 2018 11:34 pm
[2018-11-01] MEDS ORDERED: PATIENT MAY USE OWN MEDS, ALL PO SCH (23:45)
[2018-11-01 23:50] VITALS: BP 126/75
[2018-11-02] VITALS (13 sets, daily range): BP systolic 123–153; BP diastolic 65–79
[2018-11-02 05:27] LABS: BASOPHILS % (AUTO) 0 % (0-10); EOSINOPHILS # (AUTO) 0.2 10^3/uL (0.0-0.3); EOSINOPHILS % (AUTO) 3 % (0-10); HEMATOCRIT 33 % (40-54); HEMOGLOBIN 10.9 G/DL (13.3-17.7); LYMPHOCYTES # (AUTO) 1.6 X 10^3 (1.0-4.0); LYMPHOCYTES % (AUTO) 22 % (12-44); MEAN CORPUSCULAR HEMOGLOBIN 30 PG (25-34); MEAN CORPUSCULAR HGB CONC 33 G/DL (32-36); MEAN CORPUSCULAR VOLUME 92 FL (80-99); MEAN PLATELET VOLUME 9.9 FL (7.4-10.4); MONOCYTES # (AUTO) 0.7 X 10^3 (0.0-1.0); MONOCYTES % (AUTO) 10 % (0-12); NEUTROPHILS # (AUTO) 4.6 X 10^3 (1.8-7.8); NEUTROPHILS % (AUTO) 65 % (42-75); PLATELET COUNT 265 10^3/uL (130-400); RED BLOOD COUNT 3.65 10^6/uL (4.35-5.85); WHITE BLOOD COUNT 7.1 10^3/uL (4.3-11.0)
[2018-11-02 05:46] LABS: CALCIUM 8.7 MG/DL (8.5-10.1); CREATININE SERUM 1.35 MG/DL (0.60-1.30); PHOSPHORUS 3.3 MG/DL (2.3-4.7)
[2018-11-02] MEDS ORDERED: KCL 20 MEQ TAB (K-DUR) PO SCH (06:00)
[2018-11-02] MEDS ORDERED: MAGNESIUM 1 GM/100 ML IVPB 100 ML IV SCH (06:00)
[2018-11-02] MEDS ORDERED: POTASSIUM CL 10MEQ/50ML IVPB 50 ML IV SCH (06:00)
[2018-11-02] MEDS: NS IV 1000 ML 1,000 ML IV SCH ×4 (06:27→23:21)
--- NOTE | 2018-11-02 07:15 | Diagnostic Imaging Report ---
INDICATION: Chest pain, coronary artery disease. COMPARISON: 12/26/2016. FINDINGS: A single view of the chest demonstrates stable minimal cardiac enlargement. The lungs are clear. There is no pneumothorax, effusion or infiltrate. Sternal wires are midline. The Port-A-Cath has been removed. Osseous structures are age-appropriate. IMPRESSION: Stable slight cardiac enlargement without pulmonary edema or infiltrate. Dictated by: Dictated on workstation # [id number]
--- NOTE | 2018-11-02 07:38 | Diagnostic Imaging Report ---
INDICATION: Shortness of breath, coronary artery disease, recent heart catheter. COMPARISON: 11/01/2018. FINDINGS: Single view of the chest demonstrates stable cardiac enlargement. Lungs are clear. There is no pneumothorax. Osseous structures are stable. Sternal wires are midline. IMPRESSION: Stable cardiac enlargement without pulmonary edema or infiltrate. Dictated by: Dictated on workstation # [id number]
--- NOTE | 2018-11-02 08:21 | Progress Note-Cardiology ---
Cardiology SOAP Progress Note Subjective: In bed. Denies any further c/o CP. No c/o dyspnea, palpitations, syncope or near syncope. H/O L TKR on 10-20-18 for which he was off Plavix for 5 days prior , but had resumed the day after surgery. Objective: I&O/Vital Signs 11/02/18 11/02/18 11/02/18 11/02/18 12:00 12:07 12:30 16:45 Temp 98.7 Pulse 59 57 64 Resp 12 20 B/P (MAP) 147/79 (101) Pulse Ox 98 95 O2 Delivery Room Air Nasal Cannula Room Air 11/02/18 19:00 Pulse 61 Weight (Pounds): 217 Weight (Ounces): 0.0 Weight (Calculated Kilograms): 98.840381 Side: right Groin site without hematoma: Yes Condition: DP/PT pulses palpable, extremity w/d/p Bruising: mild bruising Constitutional: appears stated age, AAO x 3, well-developed, well-nourished Respiratory: chest is bilaterally symmetric, lungs clear to auscultation Cardiovascular: regular rate-rhythm, S1 and S2 Gastrointestional: No tender; soft, round, audible bowel sounds Extremities: other (mild swelling to left leg (post TKR on 10-20-18)) Neurologic/Psychiatric: alert, grossly intact Skin: other (L knee with steri-strips at surgial site; edges approx; no s/s of infection) Results/Procedures: Labs Laboratory Tests 11/01/18 21:41: White Blood Count 7.1, Red Blood Count 4.03L, Hemoglobin 12.2L, Hematocrit 37L, Mean Corpuscular Volume 91, Mean Corpuscular Hemoglobin 30, Mean Corpuscular Hemoglobin Concent 33, Red Cell Distribution Width 15.3H, Platelet Count 343, Mean Platelet Volume 9.7, Neutrophils (%) (Auto) 57, Lymphocytes (%) (Auto) 31, Monocytes (%) (Auto) 8, Eosinophils (%) (Auto) 4, Basophils (%) (Auto) 0, Neutrophils # (Auto) 4.1, Lymphocytes # (Auto) 2.2, Monocytes # (Auto) 0.6, Eosinophils # (Auto) 0.3, Basophils # (Auto) 0.0, Prothrombin Time 37.6H, INR Comment 3.8H, Activated Partial Thromboplast Time 55H, Sodium Level 140, Potassium Level 4.0, Chloride Level 107, Carbon Dioxide Level 22, Anion Gap 11, Blood Urea Nitrogen 24H, Creatinine 1.82H, Estimat Glomerular Filtration Rate 36 , BUN/Creatinine Ratio 13, Glucose Level 115H, Calcium Level 9.1, Corrected Calcium 9.3, Magnesium Level 2.1, Total Bilirubin 1.0, Aspartate Amino Transf ( AST/SGOT) 17, Alanine Aminotransferase (ALT/SGPT) 20, Alkaline Phosphatase 74, Myoglobin 51.3, Troponin I < 0.30, Total Protein 6.9, Albumin 3.8 11/02/18 05:20: White Blood Count 7.1, Red Blood Count 3.65L, Hemoglobin 10.9L, Hematocrit 33L, Mean Corpuscular Volume 92, Mean Corpuscular Hemoglobin 30, Mean Corpuscular Hemoglobin Concent 33, Red Cell Distribution Width 15.0H, Platelet Count 265, Mean Platelet Volume 9.9, Neutrophils (%) (Auto) 65, Lymphocytes (%) (Auto) 22, Monocytes (%) (Auto) 10, Eosinophils (%) (Auto) 3, Basophils (%) (Auto) 0, Neutrophils # (Auto) 4.6, Lymphocytes # (Auto) 1.6, Monocytes # (Auto) 0.7, Eosinophils # (Auto) 0.2, Basophils # (Auto) 0.0, Prothrombin Time 41.9H, INR Comment 4.3H, Sodium Level 139, Potassium Level 4.0, Chloride Level 109H, Carbon Dioxide Level 18L, Anion Gap 12, Blood Urea Nitrogen 19H, Creatinine 1.35H, Estimat Glomerular Filtration Rate 52, BUN/Creatinine Ratio 14, Glucose Level 88, Calcium Level 8.7, Magnesium Level 2.0, Troponin I 6.89*H, Phosphorus Level 3.3, Triglycerides Level 190H, Cholesterol Level 139, LDL Cholesterol Direct 86, VLDL Cholesterol 38, HDL Cholesterol 31L Procedures NAME: [facility] REC#: [id number] PT STATUS: REG [facility] : 1945 PHYSICIAN: NICHOLAS MEYER MD ADMIT DATE: 11/01/18/ICU Signed Date of Exam: 11/02/18 CHEST 1 VIEW, AP/PA ONLY INDICATION: Shortness of breath, coronary artery disease, recent heart catheter. COMPARISON: 11/01/2018. FINDINGS: Single view of the chest demonstrates stable cardiac enlargement. Lungs are clear. There is no pneumothorax. Osseous structures are stable. Sternal wires are midline. IMPRESSION: Stable cardiac enlargement without pulmonary edema or infiltrate. Dictated by: Dictated on workstation # [id number] Dict: 11/02/1827 Trans: 11/02/18819 Interpreted by: BETY MCGOWAN Electronically signed by: BETY MCGOWAN 11/02/18819 A/P: Assessment: CAD - Most recent cardiac cath by Dr. Meyer on 11-01-18: PTCA to distal RCA. Small artery (diameter <1.5mm) therefore no stents done. History of bare-metal stenting (ZETA 3 x 12 mm stent) in the left anterior descending artery in April 2003. In 01/25/2011, at [facility] by Dr. Reed, the patient received 2.25 x 24 mm Taxus stent to the distal left anterior descending artery and 2.25 x 20 mm Taxus stent to the left circumflex artery. In March 2013, he underwent coronary artery bypass grafting x2 with the left internal thoracic artery to the anterior descending coronary artery and saphenous vein to the first obtuse marginal coronary artery. Also, radioablation MAZE procedure and transmyocardial laser revascularization to the left ventricular apex and lateral wall in the post lateral territory were by Dr. Yefri Luis at [facility] in [place], [place] B-Cell CLL, treated with bendamustine and rituximab, treatment completed on 01/17, followed by Dr Cantu MPI of 09/23/17: No ischemia or infarction; LVEF 57% H/o palpitations in the past, which he is not reporting any episodes at this time Sinus node dysfunction with paroxysmal atrial fibrillation with a controlled ventricular response. Chronic asymptomatic sinus dinesh Chronic warfarin anticoag - supra-therapeutic INR (warfarin being held) Hypertension, controlled Hyperlipidemia, being treated with atorvastatin, Trilipix and Zetia History of mild carotid arterial disease History of prostate enlargement, being followed by Dr. Husain Right-sided trigger finger, treated surgically in May 2012 CKD stage 2 No evidence of AAA on abd ao screeing of 09/27/16 Plan: Chart reviewed Spoke with Dr. Meyer Continue current medication regimen Increase activity Monitor lab Hold Warfarin for now d/t supra-therapeutic INR Resume BB, Amiodarone, and statin Hold JEFF (-) for now Physician Assessment Physician Assessment Denies cp or palp or syncope or shortness of breath Lungs: good bilat air entry Cor: reg Ext: no c/c/e A&R * As documented in our note above that I updated (italics) and as noted below * Transfer to floor with tele * I answered patient's questions * I discussed his case with Dr Meyer Clinical Quality Measures AMI/AHF: ASA po Prior to arrival: Yes ANATOLIY LUNA [employer] BUSINESS ANALYST Nov 02, 2018 08:21 LUIS BLACKMAN MD FACP [facility] Nov 02, 2018 20:31
[2018-11-02 08:50] LABS: INR 4.3 (0.8-1.4); PROTHROMBIN TIME PATIENT 41.9 SEC (12.2-14.7)
[2018-11-02] MEDS: CLOPIDOGREL 75 MG (PLAVIX) TABLET PO SCH (10:00)
[2018-11-02] MEDS: AMIODARONE 200 MG (CORDARONE) TAB PO SCH (10:00)
[2018-11-02] MEDS: ASPIRIN E.C. 81 MG (ECOTRIN) TAB PO SCH (10:00)
[2018-11-02] MEDS ORDERED: RAMI10CA69 PO (13:23)
[2018-11-02] MEDS ORDERED: ATOR80TA76 PO (13:24)
[2018-11-02] MEDS ORDERED: AMLO5TAB7 PO (13:24)
[2018-11-02] MEDS ORDERED: CHOL10007 PO (13:27)
[2018-11-02] MEDS ORDERED: HYDR-3820 PO (13:30)
[2018-11-02] MEDS ORDERED: METO-333 PO (13:31)
[2018-11-02] MEDS ORDERED: WARF2.5T82 PO (13:32)
[2018-11-02] MEDS ORDERED: WARF-48 PO (13:32)
[2018-11-02] MEDS ORDERED: ATORVASTATIN 40 MG (LIPITOR) TABLET PO SCH (21:00)
[2018-11-03 00:11] VITALS: BP 125/60
[2018-11-03 04:02] VITALS: BP 134/67
[2018-11-03 08:00] VITALS: BP 120/79
[2018-11-03] MEDS ORDERED: METO-387 PO (08:30)
[2018-11-03] MEDS ORDERED: CLOP75TA28 PO (08:30)
[2018-11-03 09:03] LABS: INR 3.9 (0.8-1.4); PROTHROMBIN TIME PATIENT 38.6 SEC (12.2-14.7)
--- NOTE | 2018-11-03 09:31 | Progress Note-Cardiology ---
Cardiology SOAP Progress Note Subjective: Up in room. Has been ambulating in the halls. No c/o CP, palpitations, syncope , dyspnea or near syncope. Wants to go home. Objective: I&O/Vital Signs Weight (Pounds): 199 Weight (Ounces): 5.4 Weight (Calculated Kilograms): 90.668954 Side: right Groin site without hematoma: Yes Condition: DP/PT pulses palpable, extremity w/d/p Bruising: mild bruising Constitutional: appears stated age, AAO x 3, well-developed, well-nourished Respiratory: chest is bilaterally symmetric, lungs clear to auscultation Cardiovascular: regular rate-rhythm, S1 and S2 Gastrointestional: No tender; soft, round, audible bowel sounds Extremities: other (mild swelling to left leg (post TKR on 10-20-18)) Neurologic/Psychiatric: alert, grossly intact Skin: other (L knee with steri-strips at surgial site; edges approx; no s/s of infection) Results/Procedures: Labs Microbiology 11/02/18 MRSA Screen - Final, Complete MRSA not isolated A/P: Assessment: CAD - Most recent cardiac cath by Dr. Meyer on 11-01-18: PTCA to distal RCA. Small artery (diameter <1.5mm) therefore no stents done. History of bare-metal stenting (ZETA 3 x 12 mm stent) in the left anterior descending artery in April 2003. In 01/25/2011, at [facility] by Dr. Reed, the patient received 2.25 x 24 mm Taxus stent to the distal left anterior descending artery and 2.25 x 20 mm Taxus stent to the left circumflex artery. In March 2013, he underwent coronary artery bypass grafting x2 with the left internal thoracic artery to the anterior descending coronary artery and saphenous vein to the first obtuse marginal coronary artery. Also, radioablation MAZE procedure and transmyocardial laser revascularization to the left ventricular apex and lateral wall in the post lateral territory were by Dr. Yefri Luis at [facility] in [place], [place] B-Cell CLL, treated with bendamustine and rituximab, treatment completed on 01/17, followed by Dr Cnatu Echocardiogram of 11-02-[address] Meyer: LVEF 55-60%. Mild to mod MR. Mild AoR. PASP 30 mmHg. MPI of 09/23/17: No ischemia or infarction; LVEF 57% H/o palpitations in the past, which he is not reporting any episodes at this time Sinus node dysfunction with paroxysmal atrial fibrillation with a controlled ventricular response. Chronic asymptomatic sinus diensh Chronic warfarin anticoag - supra-therapeutic INR (warfarin being held) Hypertension, controlled Hyperlipidemia, being treated with atorvastatin, Trilipix and Zetia History of mild carotid arterial disease History of prostate enlargement, being followed by Dr. Husain Right-sided trigger finger, treated surgically in May 2012 CKD stage 2 No evidence of AAA on abd ao screeing of 09/27/16 Plan: OK to discharge home today Continue to hold Warfarin for now d/t supra-therapeutic INR - Advise PT/INR to be done on . Advised he call our office after he has had his lab drawn for instructions regarding warfarin. Stop ASA and continue Plavix and warfarin. Having him on all three will increase his risk of bleeding Continue BB, Amiodarone, and statin BB changed to long-acting BB LVEF 55-60% on recent echo. BP well controlled we will stop JEFF (-) for now Stop Norvasc Out pt f/u Clinical Quality Measures AMI/AHF: ASA po Prior to arrival: Yes ANATOLIY LUNA Nov 03, 2018 09:31
[2018-11-03] MEDS: CLOPIDOGREL 75 MG (PLAVIX) TABLET PO SCH (09:47)
[2018-11-03] MEDS: ASPIRIN E.C. 81 MG (ECOTRIN) TAB PO SCH (09:48)
[2018-11-03] MEDS: AMIODARONE 200 MG (CORDARONE) TAB PO SCH (09:48)
--- NOTE | 2018-11-03 10:53 | Discharge Inst-Cardiology ---
Discharge Inst-Cardiac Discharge Medications New Medications: Clopidogrel Bisulfate (Clopidogrel) 75 Mg Tablet 75 MG PO DAILY, #30 TAB Metoprolol Succinate (Metoprolol Succinate) 25 Mg Tab.er.24h 25 MG PO DAILY, #30 TAB Continued Medications: Amiodarone Hcl (Cordarone Po) 200 Mg Tab 200 MG PO DAILY Aspirin (Aspirin) 81 Mg Tab.chew 81 MG PO HS, TAB Atorvastatin Calcium (Atorvastatin Calcium) 80 Mg Tablet 80 MG PO HS, TAB Cholecalciferol (Vitamin D3) (Vitamin D3) 1,000 Unit Capsule 1000 UNIT PO DAILY, CAP Fenofibric Acid (Choline) (Trilipix) 135 Mg Capsule.dr 135 MG PO HS, CAP Finasteride (Finasteride) 5 Mg Tablet 5 MG PO DAILY Hydrocodone/Acetaminophen (Hydrocodon-Acetaminophn 10-325) 1 Each Tablet 1 EACH PO Q6H PRN for PAIN-MODERATE MDD 5, TAB Ramipril (Ramipril) 10 Mg Capsule 10 MG PO DAILY, CAP Discontinued Medications: Amlodipine Besylate (Amlodipine Besylate) 5 Mg Tablet 5 MG PO DAILY, TAB Metoprolol Tartrate (Metoprolol Tartrate) 25 Mg Tablet 25 MG PO BID, TAB Omeprazole (Omeprazole) 20 Mg Capsule.dr 20 MG PO HS, CAP Warfarin Sodium (Warfarin Sodium) 2.5 Mg Tablet 2.5 MG PO Fri, TAB Warfarin Sodium (Warfarin Sodium) 5 Mg Tablet 5 MG PO SUN SAT, TAB New, Converted or Re-Newed RX: Transmitted to Pharmacy Patient Instructions Patient Instructions: Stop Warfarin (Coumadin). INR on - please call our office after you have had lab done for results and further instructions Follow up appointment with Ginger Miller APRN next week GINGER MILLER Nov 03, 2018 10:53
[2018-11-03 11:50] VITALS: BP 133/78
[2018-11-03 12:04] VITALS: BP 133/78
--- NOTE | 2018-11-03 12:16 | Cardiology Discharge Summary ---
Diagnosis/Chief Complaint Date of Admission 11-01-18 Date of Discharge 11-03-18 Admission Diagnosis Inferior STEMI, CAD/CABG/PCI, HTN, Chronic kidney disease, 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 Paroxysmal atrial fibrillation, Recent knee surgery, Anemia Final/Discharge Diagnosis CAD - Most recent cardiac cath by Dr. Meyer on 11-01-18: PTCA to distal RCA. Small artery (diameter <1.5mm) therefore no stents done. History of bare-metal stenting (ZETA 3 x 12 mm stent) in the left anterior descending artery in April 2003. In 01/25/2011, at [facility] by Dr. Reed, the patient received 2.25 x 24 mm Taxus stent to the distal left anterior descending artery and 2.25 x 20 mm Taxus stent to the left circumflex artery. In March 2013, he underwent coronary artery bypass grafting x2 with the left internal thoracic artery to the anterior descending coronary artery and saphenous vein to the first obtuse marginal coronary artery. Also, radioablation MAZE procedure and transmyocardial laser revascularization to the left ventricular apex and lateral wall in the post lateral territory were by Dr. Yefri Luis at [facility] in [place], [place] B-Cell CLL, treated with bendamustine and rituximab, treatment completed on 01/17, followed by Dr Cantu Echocardiogram of 11-02-[address] Meyer: LVEF 55-60%. Mild to mod MR. Mild AoR. PASP 30 mmHg. MPI of 09/23/17: No ischemia or infarction; LVEF 57% H/o palpitations in the past, which he is not reporting any episodes at this time Sinus node dysfunction with paroxysmal atrial fibrillation with a controlled ventricular response. Chronic asymptomatic sinus dinesh Chronic warfarin anticoag - supra-therapeutic INR (warfarin being held) Hypertension, controlled Hyperlipidemia, being treated with atorvastatin, Trilipix and Zetia History of mild carotid arterial disease History of prostate enlargement, being followed by Dr. Husain Right-sided trigger finger, treated surgically in May 2012 CKD stage 2 No evidence of AAA on abd ao screeing of 09/27/16 Chief Complaint/HPI Chief Complaint/HPI Chest pain This is a 73 year old patient of Dr mcclain with history of CABG x2 in 2012. PCI in LAD and left circumflex artery.. Recent knee surgery. On coumadin. Who presented with severe chest pain. Chest pain started 30 minutes before arrival. Chest pain was substernal and in the left side of the chest. It radiates to the left arm and left jaw. Moderate intensity. No associated shortness of breath, palpitations, nausea and vomiting. Patient took aspirin when the chest pain started. Patient takes Coumadin for CAD and possible atrial fibrillation. Previous history of LA and cardioversion for atrial fibrillation. Maze procedure was done during cardiac surgery. Discharge Summary Procedures Cardiac cath with successful intervention on 11-01-[address] Meyer. Please refer to his cardiac cath report for details. Discharge Physical Examination Please refer to progress note of 11-03-18 Hospital Course Mr. Beyer was admitted on 11-01-18 with an inferior STEMI. He underwent cardiac cath with successful intervention by . His INR was supratherapeutic at time of admission and remained elevated. Warfarin is currently being withheld. He has had no further episodes of chest pain. He is being discharged home today. Pending Labs Discussion & Recommendations Discussion INR remain supratherapeutic. We are continuing to hold. INR on , Nov 05, 2018. We will discontinue tx with warfarin and start on Eliquis as an out pt once INR is 2.0 or below for OAC to protect against stroke. We will continue BB, JEFF (-) and statin We will continue ASA and Plavix for now. Once we start Eliquis we will then stop the ASA and continue Plavix. Out pt f/u appt next week Home Medications Reviewed patient Home Medication Reconciliation performed by pharmacy medication reconciliations chemical waste management technician and/or nursing. Patients Allergies have been reviewed. Discharge Home Medications: Reviewed and agree with Discharge Medication list on patient's Discharge Instruction sheet Clinical Quality Measures AMI/AHF: ASA po Prior to arrival: Yes DVT/VTE Risk/Contraindication: Risk Factor Score Per Nursin RFS Level Per Nursing on Admit: 4+=Very High ANATOLIY LUNA Nov 03, 2018 12:16
--- OUTSIDE RECORDS SUMMARY | 2018-11-03 15:16 | XMS REPORT | Continuity of Care Document ---
Author Author [facility] Organization [facility] Address Unknown Phone Unavailable Allergies Active Description Code Type Severity Reaction Onset Reported/Identified Relationship to Patient Clinical Status Yes No Known Drug Allergies [id number] Drug Allergy Unknown N/A 03/05/2017 Medications There [...] INFARCT,EPISO 01/25/2011 Ot 414.01 CORONARY ATHEROSCLEROSIS OF [place] CORON 01/25/2011 Ot 433.10 CAROTID ARTERY OCCLUSION W O CEREBRAL IN 01/25/2011 Ot 786.09 RESPIRATORY ABNORM NEC 01/25/2011 Ot 786.50 CHEST PAIN NOS 01/25/2011 Ot V45.82 PERCUTANEOUS TRANSLUM CORON ANGIOPLASTY 04/02/2011 Ot 272.4 HYPERLIPIDEMIA NEC/NOS 04/02/2011 Ot 401.9 HYPERTENSION NOS 04/02/2011 Ot 414.01 CORONARY ATHEROSCLEROSIS OF [place] CORON 04/02/2011 Ot 427.31 ATRIAL FIBRILLATION 04/02/2011 [...] NOS 03/09/2013 Ot 414.01 CORONARY ATHEROSCLEROSIS OF [place] CORON 03/09/2013 Ot 427.31 ATRIAL FIBRILLATION 03/09/2013 [...] V57.89 REHABILITATION PROC NEC 05/10/2014 [facility] [place] [facility] Ot 327.23 OBSTRUCTIVE SLEEP APNEA (ADULT) (PEDIATR [...] 427.81 07/14/2015 Ot 785.1 07/14/2015 OSCAR VALENCIA GYROSCOPIC INSTRUMENT TESTER Ot 414.01 07/14/2015 OSCAR VALENCIA GYROSCOPIC INSTRUMENT TESTER Ot 427.31 07/14/2015 OSCAR VALENCIA GYROSCOPIC INSTRUMENT TESTER Ot V45.81 07/14/2015 ANATOLIY LUNA GYROSCOPIC INSTRUMENT TESTER Ot 786.09 07/14/2015 ANATOLIY LUNA GYROSCOPIC INSTRUMENT TESTER Ot 786.2 07/14/2015 Ot V72.84 07/14/2015 DEIDRE AMIN DRAPERY CUTTER Ot 412 07/14/2015 DEIDRE AMIN APRN Ot 780.8 07/14/2015 ALEX CHANDLER GYROSCOPIC INSTRUMENT TESTER Ot 288.61 07/18/2015 ALEX CHANDLER GYROSCOPIC INSTRUMENT TESTER Ot 288.61 07/26/2015 Ot V72.84 08/16/2015 PEBBLES [...] K Ot Z95.1 10/04/2015 BRIEN JESUS S GYROSCOPIC INSTRUMENT TESTER Ot C91.10 10/04/2015 BRIEN HILAH S GYROSCOPIC INSTRUMENT TESTER Ot E11.9 10/04/2015 BRIEN HILTISH S GYROSCOPIC INSTRUMENT TESTER Ot E78.5 10/04/2015 BRIEN HILAH S GYROSCOPIC INSTRUMENT TESTER Ot I12.9 10/04/2015 BRIEN HILAH S GYROSCOPIC INSTRUMENT TESTER Ot I25.10 10/04/2015 BRIEN HILAH S GYROSCOPIC INSTRUMENT TESTER Ot Z79.01 10/04/2015 BRIEN HILAH S GYROSCOPIC INSTRUMENT TESTER Ot Z79.899 10/04/2015 BRIEN HILAH S GYROSCOPIC INSTRUMENT TESTER Ot Z95.1 10/17/2015 PEBBLES FRANCO, LUIGI Dary [...] MD, Ot I25.10 ATHSCL HEART DISEASE OF [place] CORONARY 11/15/2015 LUIGI ROGEL MD Ot V45.81 AORTOCORONARY BYPASS 11/15/2015 LUIGI ROGEL MD, Ot V58.61 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S,LT,CURRENT USE 11/15/2015 LUIGI ROGEL MD, Ot V58.69 OTH MED,LT,CURRENT USE 11/15/2015 LUIGI ROGEL MD Ot Z51.11 ENCOUNTER FOR ANTINEOPLASTIC CHEMOTHERAP 11/15/2015 LUIGI ROGEL MD, Ot Z79.01 PROJECT CONTROL ANALYST (CURRENT) USE OF 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 11/15/2015 LUIGI ROGEL MD, Ot Z79.899 OTHER PROJECT CONTROL ANALYST (CURRENT) DRUG THERAPY 11/15/2015 LUIGI ROGEL MD [...] LUIGI Foote Ot V58.61 11/20/2015 PEBBLES FRANCO, LUGII Foote Ot V58.69 11/20/2015 PEBBLES FRANCO, LUIGI [...] Dary Ot I25.10 ATHSCL HEART DISEASE OF [place] CORONARY 02/14/2016 PEBBLES FRANCO, LUIGI Dary Ot Z51.11 ENCOUNTER FOR ANTINEOPLASTIC CHEMOTHERAP 02/14/2016 PEBBLES FRANCO, LUIGI Dary Ot Z79.01 PROJECT CONTROL ANALYST (CURRENT) USE OF 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 02/14/2016 PEBBLES FRANCO, LUIGI Dary Ot Z79.899 OTHER PROJECT CONTROL ANALYST (CURRENT) DRUG THERAPY 02/14/2016 PEBBLES FRANCO, LUIGI Dary Ot Z95.1 PRESENCE OF AORTOCORONARY BYPASS GRAFT 02/29/2016 Ot 442.2 02/29/2016 Ot 562.10 02/29/2016 Ot 599.70 02/29/2016 Ot 600.00 02/29/2016 DEIDRE AMIN APRN Ot 412 02/29/2016 DEIDRE AMIN APRN Ot 780.8 02/29/2016 ALEX CHANDLER GYROSCOPIC INSTRUMENT TESTER Ot 288.61 02/29/2016 PEBBLES FRANCO, LUIGI Foote Ot 204.10 02/29/2016 PEBBLES FRANCO, LUIGI Foote Ot 562.10 02/29/2016 PEBBLES FRANCO, LUIGI Foote Ot 571.8 02/29/2016 JESUS TESFAYE GYROSCOPIC INSTRUMENT TESTER Ot C91.10 02/29/2016 TESFAYEJESUS Arreguin GYROSCOPIC INSTRUMENT TESTER Ot E11.9 02/29/2016 TESFAYEJESUS Arreguin GYROSCOPIC INSTRUMENT TESTER Ot E78.5 02/29/2016 JESUS TESFAYE GYROSCOPIC INSTRUMENT TESTER Ot I12.9 02/29/2016 TESFAYEJESUS Arreguin GYROSCOPIC INSTRUMENT TESTER Ot I25.10 02/29/2016 TESFAYEJESUS Arreguin GYROSCOPIC INSTRUMENT TESTER Ot Z79.01 02/29/2016 TESFAYEJESUS Arreguin GYROSCOPIC INSTRUMENT TESTER Ot Z79.899 02/29/2016 TESFAYEJESUS Arreguin GYROSCOPIC INSTRUMENT TESTER Ot Z95.1 02/29/2016 CHARLOTTE FRANCO, KINJAL Anna [...] MD, Ot I25.10 ATHSCL HEART DISEASE OF [place] CORONARY 03/04/2016 LUIGI ROGEL MD Ot Z51.11 ENCOUNTER FOR ANTINEOPLASTIC CHEMOTHERAP 03/04/2016 LUIGI ROGEL MD Ot Z79.01 PROJECT CONTROL ANALYST (CURRENT) USE OF 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 03/04/2016 LUIGI ROGEL MD, Ot Z79.899 OTHER PROJECT CONTROL ANALYST (CURRENT) DRUG THERAPY 03/04/2016 LUIGI ROGEL MD [...] MD Ot I25.10 ATHSCL HEART DISEASE OF [place] CORONARY 03/11/2016 LUIGI ROGEL MD Ot Z51.11 ENCOUNTER FOR ANTINEOPLASTIC CHEMOTHERAP 03/11/2016 LUIGI ROGEL MD Ot Z79.01 [facility] (CURRENT) USE OF 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 03/11/2016 LUIGI ROGEL MD Ot Z79.899 OTHER [facility] (CURRENT) DRUG THERAPY 03/11/2016 LUIGI ROGEL MD [...] LEUK OF B-CELL TYPE 03/28/2016 JESUS TESFAYE GYROSCOPIC INSTRUMENT TESTER Ot E11.9 TYPE 2 DIABETES MELLITUS WITHOUT COMPLIC 03/28/2016 JESUS TESFAYE GYROSCOPIC INSTRUMENT TESTER Ot E78.5 HYPERLIPIDEMIA, UNSPECIFIED 03/28/2016 JESUS TESFAYE GYROSCOPIC INSTRUMENT TESTER Ot I12.9 HYPERTENSIVE CHRONIC KIDNEY DISEASE W ST 03/28/2016 JESUS TESFAYE GYROSCOPIC INSTRUMENT TESTER Ot I25.10 ATHSCL HEART DISEASE OF [place] CORONARY 03/28/2016 JESUS TESFAYEP Ot Z79.01 PROJECT CONTROL ANALYST (CURRENT) USE OF 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 03/28/2016 JESUS TESFAYEP Ot Z79.899 OTHER PROJECT CONTROL ANALYST (CURRENT) DRUG THERAPY 03/28/2016 JESUS TESFAYEP Ot [...] MD, Ot I25.10 ATHSCL HEART DISEASE OF [place] CORONARY 03/28/2016 LUIGI ROGEL MD, Ot Z51.11 ENCOUNTER FOR ANTINEOPLASTIC CHEMOTHERAP 03/28/2016 LUIGI ROGEL MD, Ot Z79.01 [facility] (CURRENT) USE OF 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 03/28/2016 LUIGI ROGEL MD, Ot Z79.899 OTHER PROJECT CONTROL ANALYST (CURRENT) DRUG THERAPY 03/28/2016 LUIGI ROGEL MD [...] MD, Ot I25.10 ATHSCL HEART DISEASE OF [place] CORONARY 04/10/2016 LUIGI ROGEL MD, Ot Z51.11 ENCOUNTER FOR ANTINEOPLASTIC CHEMOTHERAP 04/10/2016 LUIGI ROGEL MD, Ot Z79.01 PROJECT CONTROL ANALYST (CURRENT) USE OF 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 04/10/2016 LUIGI ROGEL MD, Ot Z79.899 OTHER [facility] (CURRENT) DRUG THERAPY 04/10/2016 LUIGI ROGEL MD [...] MD Ot I25.10 ATHSCL HEART DISEASE OF [place] CORONARY 04/27/2016 LUIGI ROGEL MD Ot Z45.2 ENCOUNTER FOR ADJUSTMENT AND MANAGEMENT 04/27/2016 LUIGI ROGEL MD Ot Z79.01 PROJECT CONTROL ANALYST (CURRENT) USE OF 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 04/27/2016 LUIGI ROGEL MD Ot Z79.899 OTHER PROJECT CONTROL ANALYST (CURRENT) DRUG THERAPY 04/27/2016 LUIGI ROGEL MD [...] MD Ot I25.10 ATHSCL HEART DISEASE OF [place] CORONARY 05/21/2016 LUIGI ROGEL MD, Ot Z45.2 ENCOUNTER FOR ADJUSTMENT AND MANAGEMENT 05/21/2016 LUIGI ORGEL MD, Ot Z79.01 PROJECT CONTROL ANALYST (CURRENT) USE OF 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 05/21/2016 LUIGI ROGEL MD Ot Z79.899 OTHER PROJECT CONTROL ANALYST (CURRENT) DRUG THERAPY 05/21/2016 LUIGI ROGEL MD [...] MD Ot I25.10 ATHSCL HEART DISEASE OF [place] CORONARY 05/23/2016 LUIGI ROGEL MD Ot Z45.2 ENCOUNTER FOR ADJUSTMENT AND MANAGEMENT 05/23/2016 LUIGI ROGEL MD Ot Z79.01 [facility] (CURRENT) USE OF 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 05/23/2016 LUIGI ROGEL MD Ot Z79.899 [facility] (CURRENT) DRUG THERAPY 05/23/2016 LUIGI ROGEL MD [...] MD Ot I25.10 ATHSCL HEART DISEASE OF [place] CORONARY 05/29/2016 LUIGI ROGEL MD Ot Z45.2 ENCOUNTER FOR ADJUSTMENT AND MANAGEMENT 05/29/2016 LUIGI ROGEL MD, Ot Z79.01 [facility] (CURRENT) USE OF 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 05/29/2016 LUIGI ROGEL MD, Ot Z79.899 [facility] (CURRENT) DRUG THERAPY 05/29/2016 LUIGI ROGEL MD [...] MD Ot I25.10 ATHSCL HEART DISEASE OF [place] CORONARY 06/06/2016 LUIGI ROGEL MD Ot Z45.2 ENCOUNTER FOR ADJUSTMENT AND MANAGEMENT 06/06/2016 LUIGI ROGEL MD Ot Z79.01 PROJECT CONTROL ANALYST (CURRENT) USE OF 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 06/06/2016 LUIGI ROGEL MD Ot Z79.899 OTHER PROJECT CONTROL ANALYST (CURRENT) DRUG THERAPY 06/06/2016 LUIGI ROGEL MD [...] TESFAYE Ot I25.10 ATHSCL HEART DISEASE OF [place] CORONARY 06/07/2016 JESUS TESFAYE Ot Z79.01 [facility] (CURRENT) USE OF 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 06/07/2016 JESUS TESFAYE Ot Z79.899 OTHER PROJECT CONTROL ANALYST (CURRENT) DRUG THERAPY 06/07/2016 JESUS TESFAYE Ot [...] MD Ot I25.10 ATHSCL HEART DISEASE OF [place] CORONARY 06/07/2016 LUIGI ROGEL MD Ot Z45.2 ENCOUNTER FOR ADJUSTMENT AND MANAGEMENT 06/07/2016 LUIGI ROGEL MD Ot Z79.01 [facility] (CURRENT) USE OF 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 06/07/2016 LUIGI ROGEL MD Ot Z79.899 OTHER PROJECT CONTROL ANALYST (CURRENT) DRUG THERAPY 06/07/2016 LUIGI ROGEL MD [...] 06/07/2016 Ot 785.1 PALPITATIONS 06/07/2016 OSCAR VALENCIA GYROSCOPIC INSTRUMENT TESTER Ot 414.01 CORONARY ATHEROSCLEROSIS OF [place] CORON 06/07/2016 OSCAR VALENCIA GYROSCOPIC INSTRUMENT TESTER Ot 427.31 ATRIAL FIBRILLATION 06/07/2016 OSCAR VALENCIA GYROSCOPIC INSTRUMENT TESTER Ot V45.81 AORTOCORONARY BYPASS 06/07/2016 ANATOLIY LUNA GYROSCOPIC INSTRUMENT TESTER Ot 786.09 RESPIRATORY ABNORM NEC 06/07/2016 ANATOLIY LUNA GYROSCOPIC INSTRUMENT TESTER Ot 786.2 COUGH 06/07/2016 Ot V72.84 EXAM PRE- OPERATIVE NOS 06/07/2016 DEIDRE AMIN DRAPERY CUTTER Ot 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 INFARCT 06/07/2016 DEIDRE AMIN DRAPERY CUTTER Ot 780.8 GENERALIZED HYPERHIDROSIS 06/07/2016 ALEX CHANDLER GYROSCOPIC INSTRUMENT TESTER Ot 288.61 LYMPHOCYTOSIS (SYMPTOMATIC) 06/07/2016 PEBBLES FRANCO, LUIGI Foote Ot 204.10 CHRONIC LYMPHOID LEUKEMIA, 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 06/07/2016 PEBBLES FRANCO, LUIGI Foote Ot 562.10 DIVERTICULOSIS COLON (W/O MENT OF HEMORR 06/07/2016 PEBBLES FRANCO, LUIGI Foote Ot 571.8 CHRONIC LIVER DIS NEC 06/07/2016 JESUS TESFAYE GYROSCOPIC INSTRUMENT TESTER Ot C91.10 CHRONIC LYMPHOCYTIC LEUK OF B-CELL TYPE 06/07/2016 JESUS TESFAYEP Ot E11.9 TYPE 2 DIABETES MELLITUS WITHOUT COMPLIC 06/07/2016 JESUS TESFAYEP Ot E78.5 HYPERLIPIDEMIA, UNSPECIFIED 06/07/2016 JESUS TESFAYEP Ot I12.9 HYPERTENSIVE CHRONIC KIDNEY DISEASE W ST 06/07/2016 JESUS TESFAYE GYROSCOPIC INSTRUMENT TESTER Ot I25.10 ATHSCL HEART DISEASE OF [place] CORONARY 06/07/2016 TESFAYEJESUS Arreguin RUPINDER Ot Z79.01 PROJECT CONTROL ANALYST (CURRENT) USE OF 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 06/07/2016 TESFAYEJESUS Arreguin RUPINDER Ot Z79.899 OTHER [facility] (CURRENT) DRUG THERAPY 06/07/2016 TESFAYEJESUS Arreguin RUPINDER [...] MD Ot I25.10 ATHSCL HEART DISEASE OF [place] CORONARY 06/07/2016 LUIGI ROGEL MD Ot Z45.2 ENCOUNTER FOR ADJUSTMENT AND MANAGEMENT 06/07/2016 LUIGI ROGEL MD Ot Z79.01 [facility] (CURRENT) USE OF 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 06/07/2016 LUIGI ROGEL MD Ot Z79.899 [facility] (CURRENT) DRUG THERAPY 06/07/2016 LUIGI ROGEL MD [...] LEUK OF B-CELL TYPE 08/08/2016 JESUS TESFAYE GYROSCOPIC INSTRUMENT TESTER Ot E11.9 TYPE 2 DIABETES MELLITUS WITHOUT COMPLIC 08/08/2016 JESUS TESFAYEP Ot E78.5 HYPERLIPIDEMIA, UNSPECIFIED 08/08/2016 JESUS TESFAYEP Ot I12.9 HYPERTENSIVE CHRONIC KIDNEY DISEASE W ST 08/08/2016 JESUS TESFAYEP Ot I25.10 ATHSCL HEART DISEASE OF [place] CORONARY 08/08/2016 JESUS TESFAYEP Ot Z79.01 PROJECT CONTROL ANALYST (CURRENT) USE OF 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 08/08/2016 JESUS TESFAYEP Ot Z79.899 [facility] (CURRENT) DRUG THERAPY 08/08/2016 JESUS TESFAYEP Ot [...] MD Ot I25.10 ATHSCL HEART DISEASE OF [place] CORONARY 08/08/2016 LUIGI ROGEL MD Ot Z45.2 ENCOUNTER FOR ADJUSTMENT AND MANAGEMENT 08/08/2016 LUIGI ROGEL MD Ot Z79.01 PROJECT CONTROL ANALYST (CURRENT) USE OF 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 08/08/2016 LUIGI ROGEL MD Ot Z79.899 OTHER PROJECT CONTROL ANALYST (CURRENT) DRUG THERAPY 08/08/2016 LUIGI ROGEL MD [...] TESFAYE Ot I25.10 ATHSCL HEART DISEASE OF [place] CORONARY 08/14/2016 JESUS TESFAYE Ot Z79.01 PROJECT CONTROL ANALYST (CURRENT) USE OF 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 08/14/2016 BRIEN JESUS Arreguin RUPINDER Ot Z79.899 OTHER [facility] (CURRENT) DRUG THERAPY 08/14/2016 TESFAYE JESUS Arreguin [...] MD Ot I25.10 ATHSCL HEART DISEASE OF [place] CORONARY 08/14/2016 LUIGI ROGEL MD Ot Z45.2 ENCOUNTER FOR ADJUSTMENT AND MANAGEMENT 08/14/2016 LUIGI ROGEL MD Ot Z79.01 PROJECT CONTROL ANALYST (CURRENT) USE OF 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 08/14/2016 LUIGI ROGEL MD Ot Z79.899 OTHER PROJECT CONTROL ANALYST (CURRENT) DRUG THERAPY 08/14/2016 LUIGI ROGEL MD [...] LIVER DIS NEC 08/23/2016 BRIEN JESUS Arreguin GYROSCOPIC INSTRUMENT TESTER Ot C91.10 CHRONIC LYMPHOCYTIC LEUK OF B-CELL TYPE 08/23/2016 BRIEN JESUS Arreguin GYROSCOPIC INSTRUMENT TESTER Ot E11.9 TYPE 2 DIABETES MELLITUS WITHOUT COMPLIC 08/23/2016 BRIEN JESUS HERRERAP Ot E78.5 HYPERLIPIDEMIA, UNSPECIFIED 08/23/2016 BRIEN JEUSS Arreguin GYROSCOPIC INSTRUMENT TESTER Ot I12.9 HYPERTENSIVE CHRONIC KIDNEY DISEASE W ST 08/23/2016 MAURO TESFAYETISH Arreguin GYROSCOPIC INSTRUMENT TESTER Ot I25.10 ATHSCL HEART DISEASE OF [place] CORONARY 08/23/2016 MAURO TESFAYETISH Arreguin GYROSCOPIC INSTRUMENT TESTER Ot Z79.01 [facility] (CURRENT) USE OF 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 08/23/2016 MAURO TESFAYETISH Arreguin RUPINDER Ot Z79.899 OTHER PROJECT CONTROL ANALYST (CURRENT) DRUG THERAPY 08/23/2016 MAURO TESFAYETISH Arreguin [...] MD Ot I25.10 ATHSCL HEART DISEASE OF [place] CORONARY 08/23/2016 LUIGI ROGEL MD Ot Z45.2 ENCOUNTER FOR ADJUSTMENT AND MANAGEMENT 08/23/2016 LUIGI ROGEL MD Ot Z79.01 [facility] (CURRENT) USE OF 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 08/23/2016 LUIGI ROGEL MD Ot Z79.899 OTHER PROJECT CONTROL ANALYST (CURRENT) DRUG THERAPY 08/23/2016 LUIGI ROGEL MD [...] MD Ot I25.10 ATHSCL HEART DISEASE OF [place] CORONARY 08/23/2016 LUIGI ROGEL MD Ot Z45.2 ENCOUNTER FOR ADJUSTMENT AND MANAGEMENT 08/23/2016 LUIGI ROGEL MD Ot Z79.01 [facility] (CURRENT) USE OF 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 08/23/2016 LUIGI ROGEL MD Ot Z79.899 [facility] (CURRENT) DRUG THERAPY 08/23/2016 LUIGI ROGEL MD [...] LEUK OF B-CELL TYPE 09/04/2016 JESUS TESFAYE GYROSCOPIC INSTRUMENT TESTER Ot E11.9 TYPE 2 DIABETES MELLITUS WITHOUT COMPLIC 09/04/2016 JESUS TESFAYE Ot E78.5 HYPERLIPIDEMIA, UNSPECIFIED 09/04/2016 JESUS TESFAYEP Ot I12.9 HYPERTENSIVE CHRONIC KIDNEY DISEASE W ST 09/04/2016 JESUS TESFAYEP Ot I25.10 ATHSCL HEART DISEASE OF [place] CORONARY 09/04/2016 JESUS TESFAYEP Ot Z79.01 PROJECT CONTROL ANALYST (CURRENT) USE OF 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 09/04/2016 JESUS TESFAYEP Ot Z79.899 OTHER PROJECT CONTROL ANALYST (CURRENT) DRUG THERAPY 09/04/2016 JESUS TESFAYE GYROSCOPIC INSTRUMENT TESTER Ot Z95.1 PRESENCE OF AORTOCORONARY BYPASS GRAFT [...] MD Ot I25.10 ATHSCL HEART DISEASE OF [place] CORONARY 09/04/2016 LUIGI ROGEL MD Ot Z45.2 ENCOUNTER FOR ADJUSTMENT AND MANAGEMENT 09/04/2016 LUIGI ROGEL MD Ot Z79.01 PROJECT CONTROL ANALYST (CURRENT) USE OF 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 09/04/2016 LUIGI ROGEL MD Ot Z79.899 OTHER PROJECT CONTROL ANALYST (CURRENT) DRUG THERAPY 09/04/2016 LUIGI ROGEL MD [...] MD Ot I25.10 ATHSCL HEART DISEASE OF [place] CORONARY 09/05/2016 LUIGI ROGEL MD, Ot Z45.2 ENCOUNTER FOR ADJUSTMENT AND MANAGEMENT 09/05/2016 LUIGI ROGEL MD, Ot Z79.01 PROJECT CONTROL ANALYST (CURRENT) USE OF 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 09/05/2016 LUIGI ROGEL MD, Ot Z79.899 OTHER PROJECT CONTROL ANALYST (CURRENT) DRUG THERAPY 09/05/2016 LUIGI ROGEL MD, [...] MD, Ot I25.10 ATHSCL HEART DISEASE OF [place] CORONARY 09/17/2016 LUIGI ROGEL MD Ot V45.81 AORTOCORONARY BYPASS 09/17/2016 LUIGI ROGEL MD, Ot V58.61 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S,LT,CURRENT USE 09/17/2016 LUIGI ROGEL MD, Ot V58.69 OTH MED,LT,CURRENT USE 09/17/2016 LUIGI ROGEL MD, Ot Z51.11 ENCOUNTER FOR ANTINEOPLASTIC CHEMOTHERAP 09/17/2016 LUIGI ROGEL MD, Ot Z79.01 [facility] (CURRENT) USE OF 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 09/17/2016 LUIGI ROGEL MD, Ot Z79.899 OTHER [facility] (CURRENT) DRUG THERAPY 09/17/2016 LUIGI ROGEL MD, [...] MD, Ot I25.10 ATHSCL HEART DISEASE OF [place] CORONARY 12/03/2016 LUIGI ROGEL MD, Ot Z45.2 ENCOUNTER FOR ADJUSTMENT AND MANAGEMENT 12/03/2016 LUIGI ROGEL MD, Ot Z79.01 [facility] (CURRENT) USE OF 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 12/03/2016 LUIGI ROGEL MD, Ot Z79.899 OTHER [facility] (CURRENT) DRUG THERAPY 12/03/2016 LUIGI ROGEL MD [...] MD, Ot I25.10 ATHSCL HEART DISEASE OF [place] CORONARY 12/04/2016 LUIGI ROGEL MD, Ot Z45.2 ENCOUNTER FOR ADJUSTMENT AND MANAGEMENT 12/04/2016 LUIGI ROGEL MD Ot Z79.01 PROJECT CONTROL ANALYST (CURRENT) USE OF 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 12/04/2016 LUIGI ROGEL MD, Ot Z79.899 OTHER [facility] (CURRENT) DRUG THERAPY 12/04/2016 LUIGI ROGEL MD [...] MD Ot I25.10 ATHSCL HEART DISEASE OF [place] CORONARY 12/26/2016 LUIGI ROGEL MD Ot Z45.2 ENCOUNTER FOR ADJUSTMENT AND MANAGEMENT 12/26/2016 LUIGI ROGEL MD, Ot Z79.01 [facility] (CURRENT) USE OF 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 12/26/2016 LUIGI ROGEL MD Ot Z79.899 OTHER [facility] (CURRENT) DRUG THERAPY 12/26/2016 LUIGI ROGEL MD [...] 12/26/2016 Ot 785.1 PALPITATIONS 12/26/2016 OSCAR VALENCIA GYROSCOPIC INSTRUMENT TESTER Ot 414.01 CORONARY ATHEROSCLEROSIS OF [place] CORON 12/26/2016 OSCAR VALENCIA GYROSCOPIC INSTRUMENT TESTER Ot 427.31 ATRIAL FIBRILLATION 12/26/2016 OSCAR VALENCIA GYROSCOPIC INSTRUMENT TESTER Ot V45.81 AORTOCORONARY BYPASS 12/26/2016 ANATOLIY LUNA GYROSCOPIC INSTRUMENT TESTER Ot 786.09 RESPIRATORY ABNORM NEC 12/26/2016 ANATOLIY LUNA GYROSCOPIC INSTRUMENT TESTER Ot 786.2 COUGH 12/26/2016 Ot V72.84 EXAM PRE- OPERATIVE NOS 12/26/2016 DEIDRE AMIN DRAPERY CUTTER Ot 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 INFARCT 12/26/2016 DEIDRE AMIN DRAPERY CUTTER Ot 780.8 GENERALIZED HYPERHIDROSIS 12/26/2016 ALEX CHANDLER GYROSCOPIC INSTRUMENT TESTER Ot 288.61 LYMPHOCYTOSIS (SYMPTOMATIC) 12/26/2016 PEBBLES FRANCO, LUIGI Foote Ot 204.10 CHRONIC LYMPHOID LEUKEMIA, 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 12/26/2016 PEBBLES FRANCO, LUIGI Foote Ot 562.10 DIVERTICULOSIS COLON (W/O MENT OF HEMORR 12/26/2016 PEBBLES FRANCO, LUIGI Foote Ot 571.8 CHRONIC LIVER DIS NEC 12/26/2016 JESUS TESFAYE GYROSCOPIC INSTRUMENT TESTER Ot C91.10 CHRONIC LYMPHOCYTIC LEUK OF B-CELL TYPE 12/26/2016 JESUS TESFAYE GYROSCOPIC INSTRUMENT TESTER Ot E11.9 TYPE 2 DIABETES MELLITUS WITHOUT COMPLIC 12/26/2016 JESUS TESFAYE GYROSCOPIC INSTRUMENT TESTER Ot E78.5 HYPERLIPIDEMIA, UNSPECIFIED 12/26/2016 JESUS TESFAYE GYROSCOPIC INSTRUMENT TESTER Ot I12.9 HYPERTENSIVE CHRONIC KIDNEY DISEASE W ST 12/26/2016 MAURO TESFAYETISH Arreguin RUPINDER Ot I25.10 ATHSCL HEART DISEASE OF [place] CORONARY 12/26/2016 MAURO TESFAYETISH Arreguin RUPINDER Ot Z79.01 [facility] (CURRENT) USE OF 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 12/26/2016 BRIEN JESUS Arreguin RUPINDER Ot Z79.899 OTHER [facility] (CURRENT) DRUG THERAPY 12/26/2016 BRIEN JESUS Arreguin [...] MD Ot I25.10 ATHSCL HEART DISEASE OF [place] CORONARY 12/26/2016 LUIGI ROGEL MD Ot Z45.2 ENCOUNTER FOR ADJUSTMENT AND MANAGEMENT 12/26/2016 LUIGI ROGEL MD Ot Z79.01 PROJECT CONTROL ANALYST (CURRENT) USE OF 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 12/26/2016 LUIGI ROGEL MD Ot Z79.899 OTHER [facility] (CURRENT) DRUG THERAPY 12/26/2016 LUIGI ROGEL MD [...] TESFAYE Ot I25.10 ATHSCL HEART DISEASE OF [place] CORONARY 12/26/2016 JESUS TESFAYE Ot Z79.01 PROJECT CONTROL ANALYST (CURRENT) USE OF 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 12/26/2016 JESUS TESFAYEP Ot Z79.899 OTHER [facility] (CURRENT) DRUG THERAPY 12/26/2016 JESUS TESFAYE Ot [...] MD, Ot I25.10 ATHSCL HEART DISEASE OF [place] CORONARY 03/25/2017 LUIGI ROGEL MD Ot Z45.2 ENCOUNTER FOR ADJUSTMENT AND MANAGEMENT 03/25/2017 LUIGI ROGEL MD Ot Z79.01 PROJECT CONTROL ANALYST (CURRENT) USE OF 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 03/25/2017 LUIGI ROGEL MD Ot Z79.899 OTHER PROJECT CONTROL ANALYST (CURRENT) DRUG THERAPY 03/25/2017 LUIGI ROGEL MD [...] LEUK OF B-CELL TYPE 05/27/2017 JESUS TESFAYE GYROSCOPIC INSTRUMENT TESTER Ot E11.9 TYPE 2 DIABETES MELLITUS WITHOUT COMPLIC 05/27/2017 JESUS TESFAYE GYROSCOPIC INSTRUMENT TESTER Ot E78.5 HYPERLIPIDEMIA, UNSPECIFIED 05/27/2017 JESUS TESFAYE GYROSCOPIC INSTRUMENT TESTER Ot I12.9 HYPERTENSIVE CHRONIC KIDNEY DISEASE W ST 05/27/2017 JESUS TESFAYE Ot I25.10 ATHSCL HEART DISEASE OF [place] CORONARY 05/27/2017 JESUS TESFAYE GYROSCOPIC INSTRUMENT TESTER Ot Z79.01 PROJECT CONTROL ANALYST (CURRENT) USE OF 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 05/27/2017 JESUS TESFAYEP Ot Z79.899 OTHER PROJECT CONTROL ANALYST (CURRENT) DRUG THERAPY 05/27/2017 JESUS TESFAYEP Ot [...] MD, Ot I25.10 ATHSCL HEART DISEASE OF [place] CORONARY 05/27/2017 LUIGI ROGEL MD, Ot Z45.2 ENCOUNTER FOR ADJUSTMENT AND MANAGEMENT 05/27/2017 LUIGI ROGEL MD, Ot Z79.01 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 CONTROL ANALYST (CURRENT) USE OF 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 05/27/2017 LUIGI ROGEL MD, Ot Z79.899 OTHER [facility] (CURRENT) DRUG THERAPY 05/27/2017 LUIGI ROGEL MD Ot Z95.1 PRESENCE OF AORTOCORONARY BYPASS GRAFT 05/28/2017 LUIGI ROGEL MD, Ot C91.10 CHRONIC LYMPHOCYTIC LEUK OF B-CELL TYPE 05/28/2017 LUIGI ROEGL MD, Ot E11.9 TYPE 2 DIABETES MELLITUS WITHOUT COMPLIC 05/28/2017 LUIGI ROGEL MD, Ot E78.5 HYPERLIPIDEMIA, UNSPECIFIED 05/28/2017 LUIGI ROGEL MD, Ot I10 ESSENTIAL (PRIMARY) HYPERTENSION 05/28/2017 LUIGI ROGEL MD, Ot I25.10 ATHSCL HEART DISEASE OF [place] CORONARY 05/28/2017 LUIGI ROGEL MD, Ot Z45.2 ENCOUNTER FOR ADJUSTMENT AND MANAGEMENT 05/28/2017 LUIGI ROGEL MD, Ot Z79.01 [facility] (CURRENT) USE OF 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 05/28/2017 LUIGI ROGEL MD, Ot Z79.899 OTHER [facility] (CURRENT) DRUG THERAPY 05/28/2017 LUIGI ROGEL MD, [...] MD Ot I25.10 ATHSCL HEART DISEASE OF [place] CORONARY 08/16/2017 LUIGI ROGEL MD, Ot Z79.01 [facility] (CURRENT) USE OF 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 08/16/2017 LUIGI ROGEL MD, Ot Z79.899 OTHER [facility] (CURRENT) DRUG THERAPY 08/16/2017 LUIGI ROGEL MD [...] MD Ot I25.10 ATHSCL HEART DISEASE OF [place] CORONARY 08/25/2017 LUIGI ROGEL MD Ot Z79.01 PROJECT CONTROL ANALYST (CURRENT) USE OF 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 08/25/2017 LUIGI ROGEL MD Ot Z79.899 OTHER PROJECT CONTROL ANALYST (CURRENT) DRUG THERAPY 08/25/2017 LUIGI ROGEL MD [...] LEUK OF B-CELL TYPE 08/25/2017 JESUS TESFAYE GYROSCOPIC INSTRUMENT TESTER Ot E11.9 TYPE 2 DIABETES MELLITUS WITHOUT COMPLIC 08/25/2017 JESUS TESFAYEP Ot E78.5 HYPERLIPIDEMIA, UNSPECIFIED 08/25/2017 JESUS TESFAYEP Ot I12.9 HYPERTENSIVE CHRONIC KIDNEY DISEASE W ST 08/25/2017 JESUS TESFAYEP Ot I25.10 ATHSCL HEART DISEASE OF [place] CORONARY 08/25/2017 JESUS TESFAYEP Ot Z79.01 PROJECT CONTROL ANALYST (CURRENT) USE OF 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 08/25/2017 JESUS TESFAYEP Ot Z79.899 OTHER [facility] (CURRENT) DRUG THERAPY 08/25/2017 JESUS TESFAYEP Ot [...] MD, Ot I25.10 ATHSCL HEART DISEASE OF [place] CORONARY 08/26/2017 EDMUNDO MITCHELL MD Ot Z79.01 PROJECT CONTROL ANALYST (CURRENT) USE OF 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 08/26/2017 EDMUNDO MITCHELL MD, Ot Z79.899 OTHER PROJECT CONTROL ANALYST (CURRENT) DRUG THERAPY 08/26/2017 EDMUNDO MITCHELL MD, [...] MD Ot I25.10 ATHSCL HEART DISEASE OF [place] CORONARY 09/03/2017 EDMUNDO MITCHELL MD, Ot Z79.01 [facility] (CURRENT) USE OF 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 09/03/2017 EDMUNDO MITCHELL MD, Ot Z79.899 OTHER PROJECT CONTROL ANALYST (CURRENT) DRUG THERAPY 09/03/2017 EDMUNDO MITCHELL MD, [...] MD Ot I25.10 ATHSCL HEART DISEASE OF [place] CORONARY 09/04/2017 JOSE JACOB MD Ot Z79.01 [facility] (CURRENT) USE OF 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 09/04/2017 JOSE JACOB MD Ot Z79.899 OTHER [facility] (CURRENT) DRUG THERAPY 09/04/2017 JOSE JACOB MD Ot Z95.1 PRESENCE OF AORTOCORONARY BYPASS GRAFT 09/18/2017 Ot V72.84 EXAM PRE- OPERATIVE NOS 09/18/2017 Ot 427.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 09/18/2017 Ot 785.1 PALPITATIONS 09/18/2017 Ot 427.31 ATRIAL FIBRILLATION 09/18/2017 Ot 427.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 09/18/2017 Ot 785.1 PALPITATIONS 09/18/2017 OSCAR VALENCIA Ot 414.01 CORONARY ATHEROSCLEROSIS OF [place] CORON 09/18/2017 OSCAR VALENCIA Ot 427.31 ATRIAL FIBRILLATION 09/18/2017 OSCAR VALENCIA Ot V45.81 AORTOCORONARY BYPASS 09/18/2017 ANATOLIY LUNA GYROSCOPIC INSTRUMENT TESTER Ot 786.09 RESPIRATORY ABNORM NEC 09/18/2017 ANATOLIY LUNA GYROSCOPIC INSTRUMENT TESTER Ot 786.2 COUGH 09/18/2017 Ot V72.84 EXAM PRE- OPERATIVE NOS 09/18/2017 DEIDRE AMIN DRAPERY CUTTER Ot 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 INFARCT 09/18/2017 DEIDRE AMIN DRAPERY CUTTER Ot 780.8 GENERALIZED HYPERHIDROSIS 09/18/2017 ALEX CHANDLER [...] RUPINDER Ot I25.10 ATHSCL HEART DISEASE OF [place] CORONARY 09/18/2017 MAURO TESFAYETISH Arreguin RUIPNDER Ot Z79.01 PROJECT CONTROL ANALYST (CURRENT) USE OF 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 09/18/2017 MAURO TESFAYETISH Arreguin RUPINDER Ot Z79.899 OTHER [facility] (CURRENT) DRUG THERAPY 09/18/2017 MAURO TESFAYETISH Arreguin [...] MD, Ot I25.10 ATHSCL HEART DISEASE OF [place] CORONARY 09/18/2017 JOSE JACOB MD Ot Z79.01 PROJECT CONTROL ANALYST (CURRENT) USE OF 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 09/18/2017 JOSE JACOB MD Ot Z79.899 OTHER PROJECT CONTROL ANALYST (CURRENT) DRUG THERAPY 09/18/2017 JOSE JACOB MD [...] MD Ot I25.10 ATHSCL HEART DISEASE OF [place] CORONARY 10/10/2017 JOSE JACOB MD Ot Z79.01 [facility] (CURRENT) USE OF 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 10/10/2017 JOSE JACOB MD Ot Z79.899 OTHER PROJECT CONTROL ANALYST (CURRENT) DRUG THERAPY 10/10/2017 JOSE JACOB MD [...] CCDS Ot I25.10 ATHSCL HEART DISEASE OF [place] CORONARY 10/15/2017 YEHUDA FRANCO FACC, ALI FACP [...] MD Ot I25.10 ATHSCL HEART DISEASE OF [place] CORONARY 10/27/2017 JOSE JACOB MD Ot Z79.01 PROJECT CONTROL ANALYST (CURRENT) USE OF 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 10/27/2017 JOSE JACOB MD Ot Z79.899 OTHER PROJECT CONTROL ANALYST (CURRENT) DRUG THERAPY 10/27/2017 JOSE JACOB MD [...] MD Ot I25.10 ATHSCL HEART DISEASE OF [place] CORONARY 12/02/2017 JOSE JACOB MD Ot Z79.01 PROJECT CONTROL ANALYST (CURRENT) USE OF 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 12/02/2017 JOSE JACOB MD Ot Z79.899 OTHER [facility] (CURRENT) DRUG THERAPY 12/02/2017 JOSE JACOB MD [...] MD Ot I25.10 ATHSCL HEART DISEASE OF [place] CORONARY 12/03/2017 JOSE JACOB MD Ot Z79.01 PROJECT CONTROL ANALYST (CURRENT) USE OF 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 12/03/2017 JOSE JACOB MD Ot Z79.899 OTHER PROJECT CONTROL ANALYST (CURRENT) DRUG THERAPY 12/03/2017 JOSE JACOB MD [...] MD Ot I25.10 ATHSCL HEART DISEASE OF [place] CORONARY 12/12/2017 JOSE JACOB MD Ot Z79.01 PROJECT CONTROL ANALYST (CURRENT) USE OF 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 12/12/2017 JOSE JACOB MD Ot Z79.899 OTHER [facility] (CURRENT) DRUG THERAPY 12/12/2017 JOSE JACOB MD [...] MD Ot I25.10 ATHSCL HEART DISEASE OF [place] CORONARY 01/09/2018 JOSE JACOB MD Ot Z79.01 [facility] (CURRENT) USE OF 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 01/09/2018 JOSE JACOB MD Ot Z79.899 OTHER [facility] (CURRENT) DRUG THERAPY 01/09/2018 JOSE JACOB MD Ot Z95.1 PRESENCE OF AORTOCORONARY BYPASS GRAFT 02/03/2018 ASTRID WISDOM MD Ot E78.00 PURE HYPERCHOLESTEROLEMIA, UNSPECIFIED 02/03/2018 ASTRID WISDOM MD Ot G47.30 SLEEP APNEA, UNSPECIFIED 02/03/2018 ASTRID WISDOM MD Ot I25.10 ATHSCL HEART DISEASE OF [place] CORONARY 02/03/2018 ASTRID WISDOM MD Ot I25.2 [...] INI 02/03/2018 ASTRID WISDOM MD Ot Z79.01 PROJECT CONTROL ANALYST (CURRENT) USE OF 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 02/03/2018 ASTRID WISDOM MD, Ot Z79.82 [facility] (CURRENT) USE OF ASPIRIN 02/03/2018 ASTRID WISDOM [...] MD Ot I25.10 ATHSCL HEART DISEASE OF [place] CORONARY 02/05/2018 ASTRID WISDOM MD Ot I25.2 [...] INI 02/05/2018 ASTRID WISDOM MD Ot Z79.01 PROJECT CONTROL ANALYST (CURRENT) USE OF 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 02/05/2018 ASTRID WISDOM MD, Ot Z79.82 [facility] (CURRENT) USE OF ASPIRIN 02/05/2018 ASTRID WISDOM [...] MD Ot I25.10 ATHSCL HEART DISEASE OF [place] CORONARY 03/04/2018 JOSE JACOB MD Ot Z79.01 PROJECT CONTROL ANALYST (CURRENT) USE OF 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 03/04/2018 JOSE JACOB MD Ot Z79.899 OTHER PROJECT CONTROL ANALYST (CURRENT) DRUG THERAPY 03/04/2018 JOSE JACOB MD [...] MD Ot I25.10 ATHSCL HEART DISEASE OF [place] CORONARY 03/05/2018 JOSE JACOB MD Ot Z79.01 PROJECT CONTROL ANALYST (CURRENT) USE OF 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 03/05/2018 JOSE JACOB MD Ot Z79.899 OTHER [facility] (CURRENT) DRUG THERAPY 03/05/2018 JOSE JACOB MD [...] MD Ot I25.10 ATHSCL HEART DISEASE OF [place] CORONARY 03/25/2018 JOSE JACOB MD Ot Z79.01 PROJECT CONTROL ANALYST (CURRENT) USE OF 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 03/25/2018 JOSE JACOB MD Ot Z79.899 OTHER PROJECT CONTROL ANALYST (CURRENT) DRUG THERAPY 03/25/2018 JOSE JACOB MD [...] MD Ot I25.10 ATHSCL HEART DISEASE OF [place] CORONARY 04/10/2018 JOSE JACOB MD Ot Z79.01 [facility] (CURRENT) USE OF 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 04/10/2018 JOSE JACOB MD Ot Z79.899 OTHER PROJECT CONTROL ANALYST (CURRENT) DRUG THERAPY 04/10/2018 JOSE JACOB MD [...] MD Ot I25.10 ATHSCL HEART DISEASE OF [place] CORONARY 06/03/2018 JOSE JACOB MD Ot Z79.01 PROJECT CONTROL ANALYST (CURRENT) USE OF 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 06/03/2018 JOSE JACOB MD Ot Z79.899 OTHER [facility] (CURRENT) DRUG THERAPY 06/03/2018 JOSE JACOB MD [...] MD Ot I25.10 ATHSCL HEART DISEASE OF [place] CORONARY 06/04/2018 JOSE JACOB MD Ot Z79.01 PROJECT CONTROL ANALYST (CURRENT) USE OF 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 06/04/2018 JOSE JACOB MD Ot Z79.899 OTHER PROJECT CONTROL ANALYST (CURRENT) DRUG THERAPY 06/04/2018 JOSE JACOB MD Ot Z95.1 PRESENCE OF AORTOCORONARY BYPASS GRAFT 06/11/2018 Ot 427.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 06/11/2018 Ot 785.1 PALPITATIONS 06/11/2018 Ot 427.31 ATRIAL FIBRILLATION 06/11/2018 Ot 427.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 06/11/2018 Ot 785.1 PALPITATIONS 06/11/2018 OSCAR VALENCIA Ot 414.01 CORONARY ATHEROSCLEROSIS OF [place] CORON 06/11/2018 OSCAR VALENCIA Ot 427.31 ATRIAL FIBRILLATION 06/11/2018 OSCAR VALENCIA Ot V45.81 AORTOCORONARY BYPASS 06/11/2018 ANATOLIY LUNA GYROSCOPIC INSTRUMENT TESTER Ot 786.09 RESPIRATORY ABNORM NEC 06/11/2018 ANATOLIY LUNA GYROSCOPIC INSTRUMENT TESTER Ot 786.2 COUGH 06/11/2018 Ot V72.84 EXAM PRE- OPERATIVE NOS 06/11/2018 DEIDRE AMIN DRAPERY CUTTER Ot 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 INFARCT 06/11/2018 DEIDRE AMIN DRAPERY CUTTER Ot 780.8 GENERALIZED HYPERHIDROSIS 06/11/2018 ALEX CHANDLER GYROSCOPIC INSTRUMENT TESTER Ot 288.61 LYMPHOCYTOSIS (SYMPTOMATIC) 06/11/2018 LUIGI ROGEL [...] E78.5 HYPERLIPIDEMIA, UNSPECIFIED 06/11/2018 TESFAYE, HILAH S GYROSCOPIC INSTRUMENT TESTER Ot I12.9 HYPERTENSIVE CHRONIC KIDNEY DISEASE W ST 06/11/2018 JESUS TESFAYE GYROSCOPIC INSTRUMENT TESTER Ot I25.10 ATHSCL HEART DISEASE OF [place] CORONARY 06/11/2018 JESUS TESFAYE GYROSCOPIC INSTRUMENT TESTER Ot Z79.01 [facility] (CURRENT) USE OF 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 06/11/2018 TESFAYEJESUS Arreguin GYROSCOPIC INSTRUMENT TESTER Ot Z79.899 OTHER [facility] (CURRENT) DRUG THERAPY 06/11/2018 JESUS TESFAYE GYROSCOPIC INSTRUMENT TESTER Ot Z95.1 PRESENCE OF AORTOCORONARY BYPASS GRAFT [...] Ot R31.9 HEMATURIA, UNSPECIFIED 06/11/2018 ALEX CHANDLER GYROSCOPIC INSTRUMENT TESTER Ot J18.9 PNEUMONIA, UNSPECIFIED ORGANISM 06/11/2018 ALEX CHANDLER GYROSCOPIC INSTRUMENT TESTER Ot R05 COUGH 06/11/2018 YEHUDA FRANCO FACC, LUIS FACP CCDS Ot C91.10 CHRONIC LYMPHOCYTIC LEUK OF B-CELL TYPE 06/11/2018 YEHUDA FRANCO FACC, ALI FACP CCDS Ot E78.4 OTHER HYPERLIPIDEMIA 06/11/2018 YEHUDA FRANCO FACC, ALI FACP CCDS Ot I10 ESSENTIAL (PRIMARY) HYPERTENSION 06/11/2018 YEHUDA FRANCO FACC, ALI FACP CCDS Ot I25.10 ATHSCL HEART DISEASE OF [place] CORONARY 06/11/2018 YEHUDA FRANCO FACC, ALI FACP [...] MD Ot I25.10 ATHSCL HEART DISEASE OF [place] CORONARY 06/11/2018 JOSE JACOB MD Ot Z79.01 PROJECT CONTROL ANALYST (CURRENT) USE OF 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 06/11/2018 JOSE JACOB MD Ot Z79.899 OTHER PROJECT CONTROL ANALYST (CURRENT) DRUG THERAPY 06/11/2018 JOSE JACOB MD [...] MD Ot I25.10 ATHSCL HEART DISEASE OF [place] CORONARY 06/12/2018 JOSE JACOB MD Ot Z79.01 PROJECT CONTROL ANALYST (CURRENT) USE OF 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 06/12/2018 JOSE JACOB MD Ot Z79.899 OTHER PROJECT CONTROL ANALYST (CURRENT) DRUG THERAPY 06/12/2018 JOSE JACOB MD [...] MD Ot I25.10 ATHSCL HEART DISEASE OF [place] CORONARY 06/16/2018 JOSE JACOB MD Ot Z79.01 PROJECT CONTROL ANALYST (CURRENT) USE OF 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 06/16/2018 JOSE JACOB MD Ot Z79.899 OTHER PROJECT CONTROL ANALYST (CURRENT) DRUG THERAPY 06/16/2018 JOSE JACOB MD [...] MD, Ot I25.10 ATHSCL HEART DISEASE OF [place] CORONARY 07/07/2018 JOSE JACOB MD, Ot Z79.01 [facility] (CURRENT) USE OF 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 07/07/2018 JOSE JACOB MD, Ot Z79.899 OTHER PROJECT CONTROL ANALYST (CURRENT) DRUG THERAPY 07/07/2018 JOSE JACOB MD, [...] Status Pt. Type Provider Facility Loc./Unit Complaint [id number] 08/17/2018 00:25:00 08/17/2018 23:59:59 CLS Preadmit JOSE JACOB MD [facility] ONC [id number] 08/07/2018 11:29:00 08/07/2018 12:48:00 DIS Outpatient JEFFERY AYALA APRN [facility] REHAB PRIMARY OA KNEE [id number] 06/11/2018 08:14:00 06/16/2018 00:01:00 DIS Outpatient JOSE JACOB MD [facility] ONC [id number] 03/05/2018 10:41:00 06/03/2018 00:01:00 DIS Outpatient JOSE JACOB MD [facility] ONC [id number] 12/04/2017 12:48:00 03/04/2018 00:01:00 DIS Outpatient JOSE JACOB MD [facility] ONC [id number] 02/03/2018 13:24:00 02/03/2018 16:10:00 DIS Emergency ASTRID WISDOM MD [facility] ER KIDNEY ISSUES [id number] 12/04/2017 14:59:00 12/04/2017 23:59:59 CLS Preadmit NICHOLAS CASTRO MD [facility] RAD CHRONIC KIDNEY DISEASE, STAGE 3 [id number] 09/03/2017 13:50:00 12/02/2017 00:01:00 DIS Outpatient JOSE JACOB MD [facility] ONC [id number] 09/23/2017 07:18:00 09/23/2017 23:59:59 CLS Outpatient YEHUDA FRANCO FACC, LUIS ANNE CCDS [facility] CARD CAD I25.10 [id number] 08/25/2017 13:22:00 09/03/2017 13:03:00 DIS Outpatient EDMUNDO MITCHELL MD [facility] ONC [id number] 05/27/2017 08:47:00 08/16/2017 00:01:00 DIS Outpatient LUIGI ROGEL MD [facility] ONC [id number] 02/18/2017 10:19:00 03/25/2017 00:01:00 DIS Outpatient LUIGI ROGEL MD [facility] ONC [id number] 03/12/2017 06:00:00 03/12/2017 10:10:00 DIS Outpatient KINJAL PORTER MD [facility] SDC BASAL CELL CARCINOMA [id number] 03/05/2017 08:40:00 03/05/2017 09:17:00 DIS Outpatient KINJAL PORTER MD [facility] PREOP BASAL CELL CARCINOMA [id number] 01/30/2017 09:31:00 01/30/2017 12:01:00 DIS Outpatient AKIKEN GREER DO [facility] REHAB RT SHOULDER PAIN; PARTIAL RCT TEAR [id number] 12/26/2016 09:44:00 12/26/2016 23:59:59 CLS Outpatient ALEX CHANDLER [facility] RAD PNEUMONIA,COUGH [id number] 11/27/2016 08:29:00 12/03/2016 00:01:00 DIS Outpatient LUIGI ROGEL MD [facility] ONC [id number] 07/31/2016 09:08:00 08/23/2016 16:22:00 DIS Outpatient LUIGI ROGEL MD [facility] ONC [id number] 06/07/2016 11:12:00 06/07/2016 23:59:59 CLS Outpatient MADYSON MARTINEZ MD [facility] RAD HEMATERIA [id number] 05/01/2016 08:52:00 05/21/2016 00:01:00 DIS Outpatient LUIGI ROGEL MD [facility] ONC [id number] 03/28/2016 15:24:00 03/28/2016 15:56:00 DIS Emergency MARIETTA VITAL MD [facility] ER HEAD LAC [id number] 02/14/2016 09:36:00 02/14/2016 00:01:00 DIS Outpatient LUIGI ROGEL MD [facility] ONC [id number] 11/15/2015 08:33:00 11/15/2015 00:01:00 DIS Outpatient LUIGI ROGEL MD [facility] ONC [id number] 09/15/2015 06:18:00 09/15/2015 11:26:00 DIS Outpatient KINJAL PORTER MD [facility] SDC LEUKEMIA [id number] 09/14/2015 05:34:00 09/14/2015 23:59:59 CLS Outpatient KINJAL PORTER MD [facility] PREOP PORT PLACEMENT [id number] 09/13/2015 13:29:00 09/13/2015 23:59:59 CLS Outpatient JESUS TESFAYE [facility] ONC [id number] 07/26/2015 13:23:00 08/16/2015 00:01:00 DIS Outpatient LUIGI ROGEL MD [facility] ONC [id number] 08/01/2015 09:03:00 08/01/2015 23:59:59 CLS Outpatient LUIGI ROGEL MD [facility] RAD MULTIPLE MYLOMA [id number] 07/03/2015 09:55:00 07/03/2015 23:59:59 CLS Outpatient ALEX CHANDLER [facility] LAB ELEVATED WBC, ELEVATED LYMPHOCYTES [id number] 05/02/2015 10:30:00 05/02/2015 23:59:59 CLS Outpatient DEIDRE AMIN APRN [facility] CARD NIGHT SWEATS [id number] 05/09/2014 21:02:00 05/10/2014 06:25:00 DIS Outpatient MOSHE MARIE VEGETABLE PREPARER [facility] SLEEP EXCESSIVE DAYTIME SLEEPINESS [id number] 08/04/2013 12:10:00 08/04/2013 13:10:00 DIS Outpatient JENNY KIM MD [facility] CR STATUS POST ACB [id number] 08/02/2013 13:31:00 08/02/2013 00:01:00 DIS Outpatient JENNY KIM MD [facility] CR STATUS POST ACB [id number] 06/08/2013 16:44:00 06/08/2013 23:59:59 CLS Outpatient ANATOLIY LUNA [facility] RAD COUGH [id number] 04/09/2013 12:56:00 04/10/2013 11:10:00 DIS Inpatient CAT PERES MD [facility] ICU IRREGULAR HEART RATE [id number] 04/01/2013 08:50:00 04/01/2013 23:59:59 CLS Outpatient OSCAR VALENCIA [facility] CARD CAD [id number] 11/06/2018 11:56:00 PEN Preadmit AKIKEN GREER DO [facility] REHAB S/P L TKR [id number] 01/23/2016 14:14:00 Document Registration [id number] 01/23/2016 14:14:00 Document Registration [id number] 01/23/2016 14:14:00 Document Registration [id number] 07/14/2015 15:25:00 Document Registration [id number] 07/14/2015 15:25:00 Document Registration [id number] 02/03/2015 06:54:00 Document Registration [id number] 02/02/2015 05:56:00 Document Registration [id number] 03/09/2013 08:10:00 Document Registration [id number] 02/26/2013 10:43:00 Document Registration [id number] 08/24/2012 06:57:00 Document Registration [id number] 08/21/2012 08:34:00 Document Registration [id number] 08/02/2011 10:03:00 Document Registration [id number] 06/12/2011 12:03:00 Document Registration [id number] 06/03/2011 12:40:00 Document Registration [id number] 04/01/2011 11:20:00 Document Registration [id number] 01/25/2011 09:37:00 Document Registration [id number] 10/22/2006 15:56:00 Document Registration [id number] 09/12/2006 06:47:00 Document Registration [id number] 10/06/2017 23:41:23 10/06/2017 23:59:59 CLS Outpatient
--- OUTSIDE RECORDS SUMMARY | 2018-11-03 15:37 | XMS REPORT | Continuity of Care Document ---
Author Author [facility] Organization [facility] Address Unknown Phone Unavailable Allergies Active Description Code Type Severity Reaction Onset Reported/Identified Relationship to Patient Clinical Status Yes No Known Drug Allergies [id number] Drug Allergy Unknown N/A 03/05/2017 Medications There [...] INFARCT,EPISO 01/25/2011 Ot 414.01 CORONARY ATHEROSCLEROSIS OF [place] CORON 01/25/2011 Ot 433.10 CAROTID ARTERY OCCLUSION W O CEREBRAL IN 01/25/2011 Ot 786.09 RESPIRATORY ABNORM NEC 01/25/2011 Ot 786.50 CHEST PAIN NOS 01/25/2011 Ot V45.82 PERCUTANEOUS TRANSLUM CORON ANGIOPLASTY 04/02/2011 Ot 272.4 HYPERLIPIDEMIA NEC/NOS 04/02/2011 Ot 401.9 HYPERTENSION NOS 04/02/2011 Ot 414.01 CORONARY ATHEROSCLEROSIS OF [place] CORON 04/02/2011 Ot 427.31 ATRIAL FIBRILLATION 04/02/2011 [...] NOS 03/09/2013 Ot 414.01 CORONARY ATHEROSCLEROSIS OF [place] CORON 03/09/2013 Ot 427.31 ATRIAL FIBRILLATION 03/09/2013 [...] V57.89 REHABILITATION PROC NEC 05/10/2014 [facility] Ot 327.23 OBSTRUCTIVE SLEEP APNEA (ADULT) [...] 427.81 07/14/2015 Ot 785.1 07/14/2015 OSCAR VALENCIA FIRE LIEUTENANT Ot 414.01 07/14/2015 OSCAR VALENCIA FIRE LIEUTENANT Ot 427.31 07/14/2015 OSCAR VALENCIA FIRE LIEUTENANT Ot V45.81 07/14/2015 ANATOLIY LUNA FIRE LIEUTENANT Ot 786.09 07/14/2015 ANATOLIY LUNA FIRE LIEUTENANT Ot 786.2 07/14/2015 Ot V72.84 07/14/2015 DEIDRE AMIN BLOOD COLLECTOR Ot 412 07/14/2015 DEIDRE AMIN APRN Ot 780.8 07/14/2015 ALEX CHANDLER FIRE LIEUTENANT Ot 288.61 07/18/2015 ALEX CHANDLER FIRE LIEUTENANT Ot 288.61 07/26/2015 Ot V72.84 08/16/2015 PEBBLES [...] K Ot Z95.1 10/04/2015 BRIEN JESUS S FIRE LIEUTENANT Ot C91.10 10/04/2015 BRIEN HILAH S FIRE LIEUTENANT Ot E11.9 10/04/2015 BRIEN HILTISH S FIRE LIEUTENANT Ot E78.5 10/04/2015 BRIEN HILAH S FIRE LIEUTENANT Ot I12.9 10/04/2015 BRIEN HILAH S FIRE LIEUTENANT Ot I25.10 10/04/2015 BRIEN HILAH S FIRE LIEUTENANT Ot Z79.01 10/04/2015 BRIEN HILAH S FIRE LIEUTENANT Ot Z79.899 10/04/2015 BRIEN HILAH S FIRE LIEUTENANT Ot Z95.1 10/17/2015 PEBBLES FRANCO, LUIGI Dary [...] MD, Ot I25.10 ATHSCL HEART DISEASE OF [place] CORONARY 11/15/2015 LUIGI ROGEL MD Ot V45.81 AORTOCORONARY BYPASS 11/15/2015 LUIGI ROGEL MD, Ot V58.61 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S,LT,CURRENT USE 11/15/2015 LUIGI ROGEL MD, Ot V58.69 OTH MED,LT,CURRENT USE 11/15/2015 LUIGI ROGEL MD Ot Z51.11 ENCOUNTER FOR ANTINEOPLASTIC CHEMOTHERAP 11/15/2015 LUIGI ROGEL MD, Ot Z79.01 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 ADJUSTER (CURRENT) USE OF ANTICOAGULANT 11/15/2015 LUIGI ROGEL MD, Ot Z79.899 OTHER 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 ADJUSTER (CURRENT) DRUG THERAPY 11/15/2015 LUIGI ROGEL MD Ot Z95.1 PRESENCE OF AORTOCORONARY BYPASS GRAFT 11/20/2015 LUIGI ROGEL MD Ot 204.10 11/20/2015 LUIGI ROGEL MD Ot 250.00 11/20/2015 LUIGI ROGEL MD Ot 272.4 11/20/2015 LUIGI ROGEL MD, Ot C91.10 11/20/2015 PEBBLES FRANCO, LUIGI Foote Ot E11.9 11/20/2015 PEBBLES FARNCO, LUIGI Foote Ot E78.5 11/20/2015 PEBBLES FRANCO, [...] Dary Ot I25.10 ATHSCL HEART DISEASE OF [place] CORONARY 02/14/2016 PEBBLES FRANCO, LUIGI Dary Ot Z51.11 ENCOUNTER FOR ANTINEOPLASTIC CHEMOTHERAP 02/14/2016 PEBBLES FRANCO, LUIGI Dary Ot Z79.01 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 ADJUSTER (CURRENT) USE OF ANTICOAGULANT 02/14/2016 PEBBLES FRANCO, LUIGI Dary Ot Z79.899 OTHER 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 ADJUSTER (CURRENT) DRUG THERAPY 02/14/2016 PEBBLES FRANCO, LUIGI Dary Ot Z95.1 PRESENCE OF AORTOCORONARY BYPASS GRAFT 02/29/2016 Ot 442.2 02/29/2016 Ot 562.10 02/29/2016 Ot 599.70 02/29/2016 Ot 600.00 02/29/2016 DEIDRE AMIN APRN Ot 412 02/29/2016 DEIDRE AMIN APRN Ot 780.8 02/29/2016 ALEX CHANDLER FIRE LIEUTENANT Ot 288.61 02/29/2016 PEBBLES FRANCO, LUIGI Foote Ot 204.10 02/29/2016 PEBBLES FRANCO, LUIGI Foote Ot 562.10 02/29/2016 PEBBLES FRANCO, LUIGI Foote Ot 571.8 02/29/2016 JESUS TESFAYE FIRE LIEUTENANT Ot C91.10 02/29/2016 TESFAYEJESUS Arreguin FIRE LIEUTENANT Ot E11.9 02/29/2016 TESFAYEJESUS Arreguin FIRE LIEUTENANT Ot E78.5 02/29/2016 JESUS TESFAYE FIRE LIEUTENANT Ot I12.9 02/29/2016 TESFAYEJESUS Arreguin FIRE LIEUTENANT Ot I25.10 02/29/2016 TESFAYEJESUS Arreguin FIRE LIEUTENANT Ot Z79.01 02/29/2016 TESFAYEJESUS Arreguin FIRE LIEUTENANT Ot Z79.899 02/29/2016 TESFAYEJESUS Arreguin FIRE LIEUTENANT Ot Z95.1 02/29/2016 CHARLOTTE FRANCO, KINJAL Anna [...] MD, Ot I25.10 ATHSCL HEART DISEASE OF [place] CORONARY 03/04/2016 LUIGI ROGEL MD Ot Z51.11 ENCOUNTER FOR ANTINEOPLASTIC CHEMOTHERAP 03/04/2016 LUIGI ROGEL MD Ot Z79.01 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 ADJUSTER (CURRENT) USE OF ANTICOAGULANT 03/04/2016 LUIGI ROGEL MD, Ot Z79.899 OTHER 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 ADJUSTER (CURRENT) DRUG THERAPY 03/04/2016 LUIGI ROGEL MD [...] MD Ot I25.10 ATHSCL HEART DISEASE OF [place] CORONARY 03/11/2016 LUIGI ROGEL MD Ot Z51.11 ENCOUNTER FOR ANTINEOPLASTIC CHEMOTHERAP 03/11/2016 LUIGI ROGEL MD Ot Z79.01 [facility] (CURRENT) USE OF ANTICOAGULANT 03/11/2016 LUIGI ROGEL MD Ot Z79.899 OTHER [facility] (CURRENT) DRUG THERAPY 03/11/2016 LUIGI ROGEL MD [...] LEUK OF B-CELL TYPE 03/28/2016 JESUS TESFAYE FIRE LIEUTENANT Ot E11.9 TYPE 2 DIABETES MELLITUS WITHOUT COMPLIC 03/28/2016 JESUS TESFAYE FIRE LIEUTENANT Ot E78.5 HYPERLIPIDEMIA, UNSPECIFIED 03/28/2016 JESUS TESFAYE FIRE LIEUTENANT Ot I12.9 HYPERTENSIVE CHRONIC KIDNEY DISEASE W ST 03/28/2016 JESUS TESFAYE FIRE LIEUTENANT Ot I25.10 ATHSCL HEART DISEASE OF [place] CORONARY 03/28/2016 EJSUS TESFAYEP Ot Z79.01 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 ADJUSTER (CURRENT) USE OF ANTICOAGULANT 03/28/2016 JESUS TESFAYEP Ot Z79.899 OTHER 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 ADJUSTER (CURRENT) DRUG THERAPY 03/28/2016 JESUS TESFAYEP Ot [...] MD, Ot I25.10 ATHSCL HEART DISEASE OF [place] CORONARY 03/28/2016 LUIGI ROGEL MD, Ot Z51.11 ENCOUNTER FOR ANTINEOPLASTIC CHEMOTHERAP 03/28/2016 LUIGI ROGEL MD, Ot Z79.01 [facility] (CURRENT) USE OF ANTICOAGULANT 03/28/2016 LUIGI ROGEL MD, Ot Z79.899 OTHER 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 ADJUSTER (CURRENT) DRUG THERAPY 03/28/2016 LUIGI ROGEL MD [...] MD, Ot I25.10 ATHSCL HEART DISEASE OF [place] CORONARY 04/10/2016 LUIGI ROGEL MD, Ot Z51.11 ENCOUNTER FOR ANTINEOPLASTIC CHEMOTHERAP 04/10/2016 LUIGI ROGEL MD, Ot Z79.01 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 ADJUSTER (CURRENT) USE OF ANTICOAGULANT 04/10/2016 LUIGI ROGEL MD, Ot Z79.899 OTHER [facility] (CURRENT) DRUG THERAPY 04/10/2016 LUIGI ROGEL MD Ot Z95.1 PRESENCE OF AORTOCORONARY BYPASS GRAFT 04/27/2016 LUIGI ROGEL MD, Ot C91.10 CHRONIC LYMPHOCYTIC LEUK OF B-CELL TYPE 04/27/2016 LUIGI ROGEL MD Ot E11.9 TYPE 2 DIABETES MELLITUS WITHOUT COMPLIC 04/27/2016 ULIGI ROGEL MD Ot E78.5 HYPERLIPIDEMIA, UNSPECIFIED 04/27/2016 LUIGI ROGEL MD Ot I10 ESSENTIAL (PRIMARY) HYPERTENSION 04/27/2016 LUIGI ROGEL MD Ot I25.10 ATHSCL HEART DISEASE OF [place] CORONARY 04/27/2016 LUIGI ROGEL MD Ot Z45.2 ENCOUNTER FOR ADJUSTMENT AND MANAGEMENT 04/27/2016 LUIGI ROGEL MD Ot Z79.01 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 ADJUSTER (CURRENT) USE OF ANTICOAGULANT 04/27/2016 LUIGI ROGEL MD Ot Z79.899 OTHER 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 ADJUSTER (CURRENT) DRUG THERAPY 04/27/2016 LUIGI ROGEL MD [...] MD Ot I25.10 ATHSCL HEART DISEASE OF [place] CORONARY 05/21/2016 LUIGI ROGEL MD, Ot Z45.2 ENCOUNTER FOR ADJUSTMENT AND MANAGEMENT 05/21/2016 LUIGI ROGEL MD, Ot Z79.01 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 ADJUSTER (CURRENT) USE OF ANTICOAGULANT 05/21/2016 LUIGI ROGEL MD Ot Z79.899 OTHER 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 ADJUSTER (CURRENT) DRUG THERAPY 05/21/2016 LUIGI ROGEL MD [...] MD Ot I25.10 ATHSCL HEART DISEASE OF [place] CORONARY 05/23/2016 LUIGI ROGEL MD Ot Z45.2 ENCOUNTER FOR ADJUSTMENT AND MANAGEMENT 05/23/2016 LUIGI ROGEL MD Ot Z79.01 [facility] (CURRENT) USE OF ANTICOAGULANT 05/23/2016 LUIGI ROGEL MD Ot Z79.899 OTHER [facility] (CURRENT) DRUG THERAPY 05/23/2016 LUIGI ROGEL MD [...] MD Ot I25.10 ATHSCL HEART DISEASE OF [place] CORONARY 05/29/2016 LUIGI ROGEL MD Ot Z45.2 ENCOUNTER FOR ADJUSTMENT AND MANAGEMENT 05/29/2016 LUIGI ROGEL MD, Ot Z79.01 [facility] (CURRENT) USE OF ANTICOAGULANT 05/29/2016 LUIGI ROGEL MD, Ot Z79.899 OTHER [facility] (CURRENT) DRUG THERAPY 05/29/2016 LUIGI ROGEL MD [...] MD Ot I25.10 ATHSCL HEART DISEASE OF [place] CORONARY 06/06/2016 LUIGI ROGEL MD Ot Z45.2 ENCOUNTER FOR ADJUSTMENT AND MANAGEMENT 06/06/2016 LUIGI ROGEL MD Ot Z79.01 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 ADJUSTER (CURRENT) USE OF ANTICOAGULANT 06/06/2016 LUIGI ROGEL MD Ot Z79.899 OTHER 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 ADJUSTER (CURRENT) DRUG THERAPY 06/06/2016 LUIGI ROGEL MD [...] TESFAYE Ot I25.10 ATHSCL HEART DISEASE OF [place] CORONARY 06/07/2016 JESUS TESFAYE Ot Z79.01 [facility] (CURRENT) USE OF ANTICOAGULANT 06/07/2016 JESUS TESFAYE Ot Z79.899 OTHER 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 ADJUSTER (CURRENT) DRUG THERAPY 06/07/2016 JESUS TESFAYE Ot [...] MD Ot I25.10 ATHSCL HEART DISEASE OF [place] CORONARY 06/07/2016 LUIGI ROGEL MD Ot Z45.2 ENCOUNTER FOR ADJUSTMENT AND MANAGEMENT 06/07/2016 LUIGI ROGEL MD Ot Z79.01 [facility] (CURRENT) USE OF ANTICOAGULANT 06/07/2016 LUIGI ROGEL MD Ot Z79.899 OTHER 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 ADJUSTER (CURRENT) DRUG THERAPY 06/07/2016 LUIGI ROGLE MD Ot Z95.1 PRESENCE OF AORTOCORONARY BYPASS [...] 06/07/2016 Ot 785.1 PALPITATIONS 06/07/2016 OSCAR VALENCIA FIRE LIEUTENANT Ot 414.01 CORONARY ATHEROSCLEROSIS OF [place] CORON 06/07/2016 OSCAR VALENCIA FIRE LIEUTENANT Ot 427.31 ATRIAL FIBRILLATION 06/07/2016 OSCAR VALENCIA FIRE LIEUTENANT Ot V45.81 AORTOCORONARY BYPASS 06/07/2016 ANATOLIY LUNA FIRE LIEUTENANT Ot 786.09 RESPIRATORY ABNORM NEC 06/07/2016 ANATOLIY LUNA FIRE LIEUTENANT Ot 786.2 COUGH 06/07/2016 Ot V72.84 EXAM PRE- OPERATIVE NOS 06/07/2016 DEIDRE AMIN BLOOD COLLECTOR Ot 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 INFARCT 06/07/2016 DEIDRE AMIN BLOOD COLLECTOR Ot 780.8 GENERALIZED HYPERHIDROSIS 06/07/2016 ALEX CHANDLER FIRE LIEUTENANT Ot 288.61 LYMPHOCYTOSIS (SYMPTOMATIC) 06/07/2016 PEBBLES FRANCO, LUIGI Foote Ot 204.10 CHRONIC LYMPHOID LEUKEMIA, 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 06/07/2016 PEBBLES FRANCO, LUIGI Foote Ot 562.10 DIVERTICULOSIS COLON (W/O MENT OF HEMORR 06/07/2016 PEBBLES FRANCO, LUIGI Foote Ot 571.8 CHRONIC LIVER DIS NEC 06/07/2016 JESUS TESFAYE FIRE LIEUTENANT Ot C91.10 CHRONIC LYMPHOCYTIC LEUK OF B-CELL TYPE 06/07/2016 JESUS TESFAYEP Ot E11.9 TYPE 2 DIABETES MELLITUS WITHOUT COMPLIC 06/07/2016 JESUS TESFAYEP Ot E78.5 HYPERLIPIDEMIA, UNSPECIFIED 06/07/2016 JESUS TESFAYEP Ot I12.9 HYPERTENSIVE CHRONIC KIDNEY DISEASE W ST 06/07/2016 JESUS TESFAYE FIRE LIEUTENANT Ot I25.10 ATHSCL HEART DISEASE OF [place] CORONARY 06/07/2016 TESFAYEJESUS Arreguin RUPINDER Ot Z79.01 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 ADJUSTER (CURRENT) USE OF ANTICOAGULANT 06/07/2016 TESFAYEJESUS Arreguin RUPINDER Ot Z79.899 OTHER [facility] (CURRENT) DRUG THERAPY 06/07/2016 TESFAYEJESUS Arreguin RUPINDER [...] MD Ot I25.10 ATHSCL HEART DISEASE OF [place] CORONARY 06/07/2016 LUIGI ROGEL MD Ot Z45.2 ENCOUNTER FOR ADJUSTMENT AND MANAGEMENT 06/07/2016 LUIGI ROGEL MD Ot Z79.01 [facility] (CURRENT) USE OF ANTICOAGULANT 06/07/2016 LUIGI ROGEL MD Ot Z79.899 OTHER [facility] (CURRENT) DRUG THERAPY 06/07/2016 LUIGI ROGEL MD [...] LEUK OF B-CELL TYPE 08/08/2016 JESUS TESFAYE FIRE LIEUTENANT Ot E11.9 TYPE 2 DIABETES MELLITUS WITHOUT COMPLIC 08/08/2016 JESUS TESFAYEP Ot E78.5 HYPERLIPIDEMIA, UNSPECIFIED 08/08/2016 JESUS TESFAYEP Ot I12.9 HYPERTENSIVE CHRONIC KIDNEY DISEASE W ST 08/08/2016 JESUS TESFAYEP Ot I25.10 ATHSCL HEART DISEASE OF [place] CORONARY 08/08/2016 JESUS TESFAYEP Ot Z79.01 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 ADJUSTER (CURRENT) USE OF ANTICOAGULANT 08/08/2016 JESUS TESFAYEP Ot Z79.899 OTHER [facility] (CURRENT) DRUG THERAPY 08/08/2016 JESUS TESFAYEP Ot Z95.1 PRESENCE OF AORTOCORONARY BYPASS GRAFT 08/08/2016 CHARLOTTE FRANCO, KINJAL Anna Ot C91.10 CHRONIC LYMPHOCYTIC LEUK OF B-CELL TYPE 08/08/2016 CAHRLOTTE FRANCO, KINJAL Anna Ot Z01.818 ENCOUNTER FOR OTHER PREPROCEDURAL EXAMIN 08/08/2016 PEBBLES FRANCO, LUIGI Foote Ot C91.10 CHRONIC LYMPHOCYTIC LEUK OF B-CELL TYPE 08/08/2016 LUIGI ROGEL MD Ot E11.9 TYPE 2 DIABETES MELLITUS WITHOUT COMPLIC 08/08/2016 LIUGI ROGEL MD Ot E78.5 HYPERLIPIDEMIA, UNSPECIFIED 08/08/2016 LUIGI ROGEL MD Ot I10 ESSENTIAL (PRIMARY) HYPERTENSION 08/08/2016 LUIGI ROGEL MD Ot I25.10 ATHSCL HEART DISEASE OF [place] CORONARY 08/08/2016 LUIGI ROGEL MD Ot Z45.2 ENCOUNTER FOR ADJUSTMENT AND MANAGEMENT 08/08/2016 LUIGI ROGEL MD Ot Z79.01 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 ADJUSTER (CURRENT) USE OF ANTICOAGULANT 08/08/2016 LUIGI ROGEL MD Ot Z79.899 OTHER 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 ADJUSTER (CURRENT) DRUG THERAPY 08/08/2016 LUIGI ROGEL MD Ot Z95.1 PRESENCE OF AORTOCORONARY BYPASS GRAFT 08/08/2016 MADYSON MARTINEZ MD, Ot K57.90 DVRTCLOS OF INTEST, PART UNSP, W/O PERF 08/08/2016 MADYSON MARTINEZ MD Ot K76.0 FATTY (CHANGE OF) LIVER, NOT ELSEWHERE C 08/08/2016 AMDYSON MARTINEZ MD Ot N40.0 ENLARGED PROSTATE WITHOUT [...] TESFAYE Ot I25.10 ATHSCL HEART DISEASE OF [place] CORONARY 08/14/2016 JESUS TESFAYE Ot Z79.01 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 ADJUSTER (CURRENT) USE OF ANTICOAGULANT 08/14/2016 BRIEN JESUS Arreguin RUPINDER Ot Z79.899 OTHER [facility] (CURRENT) DRUG THERAPY 08/14/2016 TESFAYE JESUS Arreguin [...] MD Ot I25.10 ATHSCL HEART DISEASE OF [place] CORONARY 08/14/2016 LUIGI ROGEL MD Ot Z45.2 ENCOUNTER FOR ADJUSTMENT AND MANAGEMENT 08/14/2016 LUIGI ROGEL MD Ot Z79.01 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 ADJUSTER (CURRENT) USE OF ANTICOAGULANT 08/14/2016 LUIGI ROGEL MD Ot Z79.899 OTHER 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 ADJUSTER (CURRENT) DRUG THERAPY 08/14/2016 LUIGI ROGEL MD [...] LIVER DIS NEC 08/23/2016 BRIEN JESUS Arreguin FIRE LIEUTENANT Ot C91.10 CHRONIC LYMPHOCYTIC LEUK OF B-CELL TYPE 08/23/2016 BRIEN JESUS Arreguin FIRE LIEUTENANT Ot E11.9 TYPE 2 DIABETES MELLITUS WITHOUT COMPLIC 08/23/2016 BRIEN JESUS HERRERAP Ot E78.5 HYPERLIPIDEMIA, UNSPECIFIED 08/23/2016 BRIEN JESUS Arreguin FIRE LIEUTENANT Ot I12.9 HYPERTENSIVE CHRONIC KIDNEY DISEASE W ST 08/23/2016 MAURO TESFAYETISH Arreguin FIRE LIEUTENANT Ot I25.10 ATHSCL HEART DISEASE OF [place] CORONARY 08/23/2016 MAURO TESFAYETISH Arreguin FIRE LIEUTENANT Ot Z79.01 [facility] (CURRENT) USE OF ANTICOAGULANT 08/23/2016 MAURO TESFAYETISH Arreguin RUPINDER Ot Z79.899 OTHER 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 ADJUSTER (CURRENT) DRUG THERAPY 08/23/2016 MAURO TESFAYETISH Arreguin [...] MD Ot I25.10 ATHSCL HEART DISEASE OF [place] CORONARY 08/23/2016 LUIGI ROGEL MD Ot Z45.2 ENCOUNTER FOR ADJUSTMENT AND MANAGEMENT 08/23/2016 LUIGI ROGEL MD Ot Z79.01 [facility] (CURRENT) USE OF ANTICOAGULANT 08/23/2016 LUIGI ROGEL MD Ot Z79.899 OTHER 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 ADJUSTER (CURRENT) DRUG THERAPY 08/23/2016 LUIGI ROGEL MD [...] MD Ot I25.10 ATHSCL HEART DISEASE OF [place] CORONARY 08/23/2016 LUIGI ROGEL MD Ot Z45.2 ENCOUNTER FOR ADJUSTMENT AND MANAGEMENT 08/23/2016 LUIGI ROGEL MD Ot Z79.01 [facility] (CURRENT) USE OF ANTICOAGULANT 08/23/2016 LUIGI ROGEL MD Ot Z79.899 OTHER [facility] (CURRENT) DRUG THERAPY 08/23/2016 LUIGI ROGEL MD [...] LEUK OF B-CELL TYPE 09/04/2016 JESUS TESFAYE FIRE LIEUTENANT Ot E11.9 TYPE 2 DIABETES MELLITUS WITHOUT COMPLIC 09/04/2016 JESUS TESFAYE Ot E78.5 HYPERLIPIDEMIA, UNSPECIFIED 09/04/2016 JESUS TESFAYEP Ot I12.9 HYPERTENSIVE CHRONIC KIDNEY DISEASE W ST 09/04/2016 JESUS TESFAYEP Ot I25.10 ATHSCL HEART DISEASE OF [place] CORONARY 09/04/2016 JESUS TESFAYEP Ot Z79.01 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 ADJUSTER (CURRENT) USE OF ANTICOAGULANT 09/04/2016 JESUS TESFAYEP Ot Z79.899 OTHER 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 ADJUSTER (CURRENT) DRUG THERAPY 09/04/2016 JESUS TESFAYE FIRE LIEUTENANT Ot Z95.1 PRESENCE OF AORTOCORONARY BYPASS GRAFT 09/04/2016 CHALROTTE FRANCO, KINJAL Anna Ot C91.10 CHRONIC LYMPHOCYTIC [...] MD Ot I25.10 ATHSCL HEART DISEASE OF [place] CORONARY 09/04/2016 LUIGI ROGEL MD Ot Z45.2 ENCOUNTER FOR ADJUSTMENT AND MANAGEMENT 09/04/2016 LUIGI ROGEL MD Ot Z79.01 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 ADJUSTER (CURRENT) USE OF ANTICOAGULANT 09/04/2016 LUIGI ROGEL MD Ot Z79.899 OTHER 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 ADJUSTER (CURRENT) DRUG THERAPY 09/04/2016 LUIGI ROGEL MD [...] MD Ot I25.10 ATHSCL HEART DISEASE OF [place] CORONARY 09/05/2016 LUIGI ROGEL MD, Ot Z45.2 ENCOUNTER FOR ADJUSTMENT AND MANAGEMENT 09/05/2016 LUIGI ROGEL MD, Ot Z79.01 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 ADJUSTER (CURRENT) USE OF ANTICOAGULANT 09/05/2016 LUIGI ROGEL MD, Ot Z79.899 OTHER 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 ADJUSTER (CURRENT) DRUG THERAPY 09/05/2016 LUIGI ROGEL MD, [...] MD, Ot I25.10 ATHSCL HEART DISEASE OF [place] CORONARY 09/17/2016 LUIGI ROGEL MD Ot V45.81 AORTOCORONARY BYPASS 09/17/2016 LUIGI ROGEL MD, Ot V58.61 ANTICOAGULANTS,LT,CURRENT USE 09/17/2016 LUIGI ROGEL MD, Ot V58.69 OTH MED,LT,CURRENT USE 09/17/2016 LUIGI ROGEL MD, Ot Z51.11 ENCOUNTER FOR ANTINEOPLASTIC CHEMOTHERAP 09/17/2016 LUIGI ROGEL MD, Ot Z79.01 [facility] (CURRENT) USE OF ANTICOAGULANT 09/17/2016 LUIGI ROGEL MD, Ot Z79.899 OTHER [facility] (CURRENT) DRUG THERAPY 09/17/2016 LUIGI ROGEL MD, [...] MD, Ot I25.10 ATHSCL HEART DISEASE OF [place] CORONARY 12/03/2016 LUIGI ROGEL MD, Ot Z45.2 ENCOUNTER FOR ADJUSTMENT AND MANAGEMENT 12/03/2016 LUIGI ROGEL MD, Ot Z79.01 [facility] (CURRENT) USE OF ANTICOAGULANT 12/03/2016 LUIGI ROGEL MD, Ot Z79.899 OTHER [facility] (CURRENT) DRUG THERAPY 12/03/2016 LUIGI ROGEL MD [...] MD, Ot I25.10 ATHSCL HEART DISEASE OF [place] CORONARY 12/04/2016 LUIGI ROGEL MD, Ot Z45.2 ENCOUNTER FOR ADJUSTMENT AND MANAGEMENT 12/04/2016 LUIGI ROGEL MD Ot Z79.01 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 ADJUSTER (CURRENT) USE OF ANTICOAGULANT 12/04/2016 LUIGI ROGEL MD, Ot Z79.899 OTHER [facility] (CURRENT) DRUG THERAPY 12/04/2016 LUIGI ROGEL MD [...] MD Ot I25.10 ATHSCL HEART DISEASE OF [place] CORONARY 12/26/2016 LUIGI ROGEL MD Ot Z45.2 ENCOUNTER FOR ADJUSTMENT AND MANAGEMENT 12/26/2016 LUIGI ROGEL MD, Ot Z79.01 [facility] (CURRENT) USE OF ANTICOAGULANT 12/26/2016 LUIGI ROGEL MD Ot Z79.899 OTHER [facility] (CURRENT) DRUG THERAPY 12/26/2016 LUIGI ROGEL MD [...] 12/26/2016 Ot 785.1 PALPITATIONS 12/26/2016 OSCAR VALENCIA FIRE LIEUTENANT Ot 414.01 CORONARY ATHEROSCLEROSIS OF [place] CORON 12/26/2016 OSCAR VALENCIA FIRE LIEUTENANT Ot 427.31 ATRIAL FIBRILLATION 12/26/2016 OSCAR VALENCIA FIRE LIEUTENANT Ot V45.81 AORTOCORONARY BYPASS 12/26/2016 ANATOLIY LUNA FIRE LIEUTENANT Ot 786.09 RESPIRATORY ABNORM NEC 12/26/2016 ANATOLIY LUNA FIRE LIEUTENANT Ot 786.2 COUGH 12/26/2016 Ot V72.84 EXAM PRE- OPERATIVE NOS 12/26/2016 DEIDRE AMIN BLOOD COLLECTOR Ot 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 INFARCT 12/26/2016 DEIDRE AMIN BLOOD COLLECTOR Ot 780.8 GENERALIZED HYPERHIDROSIS 12/26/2016 ALEX CHANDLER FIRE LIEUTENANT Ot 288.61 LYMPHOCYTOSIS (SYMPTOMATIC) 12/26/2016 PEBBLES FRANCO, LUIGI Foote Ot 204.10 CHRONIC LYMPHOID LEUKEMIA, 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 12/26/2016 PEBBLES FRANCO, LUIGI Foote Ot 562.10 DIVERTICULOSIS COLON (W/O MENT OF HEMORR 12/26/2016 PEBBLES FRANCO, LUIGI Foote Ot 571.8 CHRONIC LIVER DIS NEC 12/26/2016 JESUS TESFAYE FIRE LIEUTENANT Ot C91.10 CHRONIC LYMPHOCYTIC LEUK OF B-CELL TYPE 12/26/2016 JESUS TESFAYE FIRE LIEUTENANT Ot E11.9 TYPE 2 DIABETES MELLITUS WITHOUT COMPLIC 12/26/2016 JESUS TESFAYE FIRE LIEUTENANT Ot E78.5 HYPERLIPIDEMIA, UNSPECIFIED 12/26/2016 JESUS TESFAYE FIRE LIEUTENANT Ot I12.9 HYPERTENSIVE CHRONIC KIDNEY DISEASE W ST 12/26/2016 MAURO TESFAYETISH Arreguin RUPINDER Ot I25.10 ATHSCL HEART DISEASE OF [place] CORONARY 12/26/2016 MAURO TESFAYETISH Arreguin RUPINDER Ot Z79.01 [facility] (CURRENT) USE OF ANTICOAGULANT 12/26/2016 BRIEN JESUS Arreguin RUPINDER Ot Z79.899 OTHER [facility] (CURRENT) DRUG THERAPY 12/26/2016 BRIEN JESUS Arreguin [...] MD Ot I25.10 ATHSCL HEART DISEASE OF [place] CORONARY 12/26/2016 LUIGI ROGEL MD Ot Z45.2 ENCOUNTER FOR ADJUSTMENT AND MANAGEMENT 12/26/2016 LUIGI ROGEL MD Ot Z79.01 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 ADJUSTER (CURRENT) USE OF ANTICOAGULANT 12/26/2016 LUIGI ROGEL MD Ot Z79.899 OTHER [facility] (CURRENT) DRUG THERAPY 12/26/2016 LUIGI ROGEL MD [...] MENT OF HEMORR 12/26/2016 PEBBLES FRANCO, LUIGI Fooet Ot 571.8 CHRONIC LIVER DIS NEC 12/26/2016 JESUS TESFAYE Ot C91.10 CHRONIC LYMPHOCYTIC LEUK OF B-CELL TYPE 12/26/2016 JESUS TESFAYE Ot E11.9 TYPE 2 DIABETES MELLITUS WITHOUT COMPLIC 12/26/2016 JESUS TESFAYE Ot E78.5 HYPERLIPIDEMIA, UNSPECIFIED 12/26/2016 JESUS TESFAYE Ot I12.9 HYPERTENSIVE CHRONIC KIDNEY DISEASE W ST 12/26/2016 JESUS TESFAYE Ot I25.10 ATHSCL HEART DISEASE OF [place] CORONARY 12/26/2016 JESUS TESFAYE Ot Z79.01 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 ADJUSTER (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) USE OF ANTICOAGULANT 12/26/2016 JESUS TESFAYEP Ot Z79.899 OTHER [facility] (CURRENT) DRUG THERAPY 12/26/2016 JESUS TESFAYE Ot [...] MD, Ot I25.10 ATHSCL HEART DISEASE OF [place] CORONARY 03/25/2017 LUIGI ROGEL MD Ot Z45.2 ENCOUNTER FOR ADJUSTMENT AND MANAGEMENT 03/25/2017 LUIGI ROGEL MD Ot Z79.01 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 ADJUSTER (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) USE OF ANTICOAGULANT 03/25/2017 LUIGI ROGEL MD Ot Z79.899 OTHER 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 ADJUSTER (CURRENT) DRUG THERAPY 03/25/2017 LUIGI ROGEL MD [...] LEUK OF B-CELL TYPE 05/27/2017 JESUS TESFAYE FIRE LIEUTENANT Ot E11.9 TYPE 2 DIABETES MELLITUS WITHOUT COMPLIC 05/27/2017 JESUS TESFAYE FIRE LIEUTENANT Ot E78.5 HYPERLIPIDEMIA, UNSPECIFIED 05/27/2017 JESUS TESFAYE FIRE LIEUTENANT Ot I12.9 HYPERTENSIVE CHRONIC KIDNEY DISEASE W ST 05/27/2017 JESUS TESFAYE Ot I25.10 ATHSCL HEART DISEASE OF [place] CORONARY 05/27/2017 JESUS TESFAYE FIRE LIEUTENANT Ot Z79.01 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 ADJUSTER (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) USE OF ANTICOAGULANT 05/27/2017 JESUS TESFAYEP Ot Z79.899 OTHER 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 ADJUSTER (CURRENT) DRUG THERAPY 05/27/2017 JESUS TESFAYEP Ot [...] MD, Ot I25.10 ATHSCL HEART DISEASE OF [place] CORONARY 05/27/2017 LUIGI ROGEL MD, Ot Z45.2 ENCOUNTER FOR ADJUSTMENT AND MANAGEMENT 05/27/2017 LUIGI ROGEL MD, Ot Z79.01 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 ADJUSTER (CURRENT) USE OF ANTICOAGULANT 05/27/2017 LUIGI ROGEL MD, Ot Z79.899 OTHER [facility] (CURRENT) DRUG THERAPY 05/27/2017 LUIGI ROGEL MD [...] MD, Ot I25.10 ATHSCL HEART DISEASE OF [place] CORONARY 05/28/2017 LUIGI ROGEL MD, Ot Z45.2 ENCOUNTER FOR ADJUSTMENT AND MANAGEMENT 05/28/2017 LUIGI ROGEL MD, Ot Z79.01 [facility] (CURRENT) USE OF ANTICOAGULANT 05/28/2017 LUIGI ROGEL MD, Ot Z79.899 OTHER [facility] (CURRENT) DRUG THERAPY 05/28/2017 LUIGI ROGEL MD, [...] MD Ot I25.10 ATHSCL HEART DISEASE OF [place] CORONARY 08/16/2017 LUIGI ROGEL MD, Ot Z79.01 [facility] (CURRENT) USE OF ANTICOAGULANT 08/16/2017 LUIGI ROGEL MD, Ot Z79.899 OTHER [facility] (CURRENT) DRUG THERAPY 08/16/2017 LUIGI ROGEL MD [...] MD Ot I25.10 ATHSCL HEART DISEASE OF [place] CORONARY 08/25/2017 LUIGI ROGEL MD Ot Z79.01 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 ADJUSTER (CURRENT) USE OF ANTICOAGULANT 08/25/2017 LUIGI ROGEL MD Ot Z79.899 OTHER 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 ADJUSTER (CURRENT) DRUG THERAPY 08/25/2017 LUIGI ROGEL MD [...] LEUK OF B-CELL TYPE 08/25/2017 JESUS TESFAYE FIRE LIEUTENANT Ot E11.9 TYPE 2 DIABETES MELLITUS WITHOUT COMPLIC 08/25/2017 JESUS TESFAYEP Ot E78.5 HYPERLIPIDEMIA, UNSPECIFIED 08/25/2017 JESUS TESFAYEP Ot I12.9 HYPERTENSIVE CHRONIC KIDNEY DISEASE W ST 08/25/2017 JESUS TESFAYEP Ot I25.10 ATHSCL HEART DISEASE OF [place] CORONARY 08/25/2017 JESUS TESFAYEP Ot Z79.01 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 ADJUSTER (CURRENT) USE OF ANTICOAGULANT 08/25/2017 JESUS TESFAYEP Ot Z79.899 OTHER [facility] (CURRENT) DRUG THERAPY 08/25/2017 JESUS TESFAYEP Ot [...] OF) LIVER, NOT ELSEWHERE C 08/25/2017 MADYSON MARTIENZ MD, Ot N40.0 ENLARGED PROSTATE WITHOUT LOWER [...] MD, Ot I25.10 ATHSCL HEART DISEASE OF [place] CORONARY 08/26/2017 EDMUNDO MITCHELL MD Ot Z79.01 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 ADJUSTER (CURRENT) USE OF ANTICOAGULANT 08/26/2017 EDMUNDO MITCHELL MD, Ot Z79.899 OTHER 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 ADJUSTER (CURRENT) DRUG THERAPY 08/26/2017 EDMUNDO MITCHELL MD, [...] MD Ot I25.10 ATHSCL HEART DISEASE OF [place] CORONARY 09/03/2017 EDMUNDO MITCHELL MD, Ot Z79.01 [facility] (CURRENT) USE OF ANTICOAGULANT 09/03/2017 EDMUNDO MITCHELL MD, Ot Z79.899 OTHER 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 ADJUSTER (CURRENT) DRUG THERAPY 09/03/2017 EDMUNDO MITCHELL MD, [...] MD Ot I25.10 ATHSCL HEART DISEASE OF [place] CORONARY 09/04/2017 JOSE JACOB MD Ot Z79.01 [facility] (CURRENT) USE OF ANTICOAGULANT 09/04/2017 JOSE JACOB MD Ot Z79.899 OTHER [facility] (CURRENT) DRUG THERAPY 09/04/2017 JOSE JACOB MD Ot Z95.1 PRESENCE OF AORTOCORONARY BYPASS GRAFT 09/18/2017 Ot V72.84 EXAM PRE- OPERATIVE NOS 09/18/2017 Ot 427.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 09/18/2017 Ot 785.1 PALPITATIONS 09/18/2017 Ot 427.31 ATRIAL FIBRILLATION 09/18/2017 Ot 427.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 09/18/2017 Ot 785.1 PALPITATIONS 09/18/2017 OSCAR VALENCIA Ot 414.01 CORONARY ATHEROSCLEROSIS OF [place] CORON 09/18/2017 OSCAR VALENCIA Ot 427.31 ATRIAL FIBRILLATION 09/18/2017 OSCAR VALENCIA Ot V45.81 AORTOCORONARY BYPASS 09/18/2017 ANATOLIY LUNA FIRE LIEUTENANT Ot 786.09 RESPIRATORY ABNORM NEC 09/18/2017 ANATOLIY LUNA FIRE LIEUTENANT Ot 786.2 COUGH 09/18/2017 Ot V72.84 EXAM PRE- OPERATIVE NOS 09/18/2017 DEIDRE AMIN BLOOD COLLECTOR Ot 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 INFARCT 09/18/2017 DEIDRE AMIN BLOOD COLLECTOR Ot 780.8 GENERALIZED HYPERHIDROSIS 09/18/2017 ALEX CHANDLER [...] RUPINDER Ot I25.10 ATHSCL HEART DISEASE OF [place] CORONARY 09/18/2017 MAURO TESFAYETISH Arreguin RUPINDER Ot Z79.01 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 ADJUSTER (CURRENT) USE OF ANTICOAGULANT 09/18/2017 MAURO TESFAYETISH Arreguin RUPINDER Ot Z79.899 OTHER [facility] (CURRENT) DRUG THERAPY 09/18/2017 MAURO TESFAYETISH Arreguin [...] MD, Ot I25.10 ATHSCL HEART DISEASE OF [place] CORONARY 09/18/2017 JOSE JACOB MD Ot Z79.01 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 ADJUSTER (CURRENT) USE OF ANTICOAGULANT 09/18/2017 JOSE JACOB MD Ot Z79.899 OTHER 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 ADJUSTER (CURRENT) DRUG THERAPY 09/18/2017 JOSE JACOB MD [...] MD Ot I25.10 ATHSCL HEART DISEASE OF [place] CORONARY 10/10/2017 JOSE JACOB MD Ot Z79.01 [facility] (CURRENT) USE OF ANTICOAGULANT 10/10/2017 JOSE JACOB MD Ot Z79.899 OTHER 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 ADJUSTER (CURRENT) DRUG THERAPY 10/10/2017 JOSE JACOB MD [...] CCDS Ot I25.10 ATHSCL HEART DISEASE OF [place] CORONARY 10/15/2017 YEHUDA FRANCO FACC, ALI FACP [...] MD Ot I25.10 ATHSCL HEART DISEASE OF [place] CORONARY 10/27/2017 JOSE JACOB MD Ot Z79.01 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 ADJUSTER (CURRENT) USE OF ANTICOAGULANT 10/27/2017 JOSE JACOB MD Ot Z79.899 OTHER 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 ADJUSTER (CURRENT) DRUG THERAPY 10/27/2017 JOSE JACOB MD [...] MD Ot I25.10 ATHSCL HEART DISEASE OF [place] CORONARY 12/02/2017 JOSE JACOB MD Ot Z79.01 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 ADJUSTER (CURRENT) USE OF ANTICOAGULANT 12/02/2017 JOSE JACOB MD Ot Z79.899 OTHER [facility] (CURRENT) DRUG THERAPY 12/02/2017 JOSE JACOB MD [...] MD Ot I25.10 ATHSCL HEART DISEASE OF [place] CORONARY 12/03/2017 JOSE JACOB MD Ot Z79.01 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 ADJUSTER (CURRENT) USE OF ANTICOAGULANT 12/03/2017 JOSE JACOB MD Ot Z79.899 OTHER 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 ADJUSTER (CURRENT) DRUG THERAPY 12/03/2017 JOSE JACOB MD [...] MD Ot I25.10 ATHSCL HEART DISEASE OF [place] CORONARY 12/12/2017 JOSE JACOB MD Ot Z79.01 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 ADJUSTER (CURRENT) USE OF ANTICOAGULANT 12/12/2017 JOSE JACOB MD Ot Z79.899 OTHER [facility] (CURRENT) DRUG THERAPY 12/12/2017 JOSE JACOB MD [...] MD Ot I25.10 ATHSCL HEART DISEASE OF [place] CORONARY 01/09/2018 JOSE JACOB MD Ot Z79.01 [facility] (CURRENT) USE OF ANTICOAGULANT 01/09/2018 JOSE JACOB MD Ot Z79.899 OTHER [facility] (CURRENT) DRUG THERAPY 01/09/2018 JOSE JACOB MD Ot Z95.1 PRESENCE OF AORTOCORONARY BYPASS GRAFT 02/03/2018 ASTRID WISDOM MD Ot E78.00 PURE HYPERCHOLESTEROLEMIA, UNSPECIFIED 02/03/2018 ASTRID WISDOM MD Ot G47.30 SLEEP APNEA, UNSPECIFIED 02/03/2018 ASTRID WISDOM MD Ot I25.10 ATHSCL HEART DISEASE OF [place] CORONARY 02/03/2018 ASTRID WISDOM MD Ot I25.2 [...] INI 02/03/2018 ASTRID WISDOM MD Ot Z79.01 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 ADJUSTER (CURRENT) USE OF ANTICOAGULANT 02/03/2018 ASTRID WISDOM MD, Ot Z79.82 [facility] (CURRENT) USE OF ASPIRIN 02/03/2018 ASTRID WISDOM [...] MD Ot I25.10 ATHSCL HEART DISEASE OF [place] CORONARY 02/05/2018 ASTRID WISDOM MD Ot I25.2 [...] INI 02/05/2018 ASTRID WISDOM MD Ot Z79.01 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 ADJUSTER (CURRENT) USE OF ANTICOAGULANT 02/05/2018 ASTRID WISDOM MD, Ot Z79.82 [facility] (CURRENT) USE OF ASPIRIN 02/05/2018 ATSRID WISDOM MD Ot Z85.6 PERSONAL HISTORY OF [...] MD Ot I25.10 ATHSCL HEART DISEASE OF [place] CORONARY 03/04/2018 JOSE JACOB MD Ot Z79.01 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 ADJUSTER (CURRENT) USE OF ANTICOAGULANT 03/04/2018 JOSE JACOB MD Ot Z79.899 OTHER 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 ADJUSTER (CURRENT) DRUG THERAPY 03/04/2018 JOSE JACOB MD [...] MD Ot I25.10 ATHSCL HEART DISEASE OF [place] CORONARY 03/05/2018 JOSE JACOB MD Ot Z79.01 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 ADJUSTER (CURRENT) USE OF ANTICOAGULANT 03/05/2018 JOSE JACOB MD Ot Z79.899 OTHER [facility] (CURRENT) DRUG THERAPY 03/05/2018 JOSE JACOB MD [...] MD Ot I25.10 ATHSCL HEART DISEASE OF [place] CORONARY 03/25/2018 JOSE JACOB MD Ot Z79.01 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 ADJUSTER (CURRENT) USE OF ANTICOAGULANT 03/25/2018 JOSE JACOB MD Ot Z79.899 OTHER 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 ADJUSTER (CURRENT) DRUG THERAPY 03/25/2018 JOSE JACOB MD [...] MD Ot I25.10 ATHSCL HEART DISEASE OF [place] CORONARY 04/10/2018 JOSE JACOB MD Ot Z79.01 [facility] (CURRENT) USE OF ANTICOAGULANT 04/10/2018 JOSE JACOB MD Ot Z79.899 OTHER 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 ADJUSTER (CURRENT) DRUG THERAPY 04/10/2018 JOSE JACOB MD [...] MD Ot I25.10 ATHSCL HEART DISEASE OF [place] CORONARY 06/03/2018 JOSE JACOB MD Ot Z79.01 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 ADJUSTER (CURRENT) USE OF ANTICOAGULANT 06/03/2018 JOSE JACOB MD Ot Z79.899 OTHER [facility] (CURRENT) DRUG THERAPY 06/03/2018 JOSE JACOB MD [...] MD Ot I25.10 ATHSCL HEART DISEASE OF [place] CORONARY 06/04/2018 OJSE JACOB MD Ot Z79.01 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 ADJUSTER (CURRENT) USE OF ANTICOAGULANT 06/04/2018 JOSE JACOB MD Ot Z79.899 OTHER 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 ADJUSTER (CURRENT) DRUG THERAPY 06/04/2018 JOSE JACOB MD Ot Z95.1 PRESENCE OF AORTOCORONARY BYPASS GRAFT 06/11/2018 Ot 427.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 06/11/2018 Ot 785.1 PALPITATIONS 06/11/2018 Ot 427.31 ATRIAL FIBRILLATION 06/11/2018 Ot 427.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 06/11/2018 Ot 785.1 PALPITATIONS 06/11/2018 OSCAR VALENCIA Ot 414.01 CORONARY ATHEROSCLEROSIS OF [place] CORON 06/11/2018 OSCAR VALENCIA Ot 427.31 ATRIAL FIBRILLATION 06/11/2018 OSCAR VALENCIA Ot V45.81 AORTOCORONARY BYPASS 06/11/2018 ANATOLIY LUNA FIRE LIEUTENANT Ot 786.09 RESPIRATORY ABNORM NEC 06/11/2018 ANATOLIY LUNA FIRE LIEUTENANT Ot 786.2 COUGH 06/11/2018 Ot V72.84 EXAM PRE- OPERATIVE NOS 06/11/2018 DEIDRE AMIN BLOOD COLLECTOR Ot 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 INFARCT 06/11/2018 DEIDRE AMIN BLOOD COLLECTOR Ot 780.8 GENERALIZED HYPERHIDROSIS 06/11/2018 ALEX CHANDLER FIRE LIEUTENANT Ot 288.61 LYMPHOCYTOSIS (SYMPTOMATIC) 06/11/2018 LUIGI ROGEL [...] E78.5 HYPERLIPIDEMIA, UNSPECIFIED 06/11/2018 TESFAYE, HILAH S FIRE LIEUTENANT Ot I12.9 HYPERTENSIVE CHRONIC KIDNEY DISEASE W ST 06/11/2018 JESUS TESFAYE FIRE LIEUTENANT Ot I25.10 ATHSCL HEART DISEASE OF [place] CORONARY 06/11/2018 JESUS TESFAYE FIRE LIEUTENANT Ot Z79.01 [facility] (CURRENT) USE OF ANTICOAGULANT 06/11/2018 TESFAYEJESUS Arreguin FIRE LIEUTENANT Ot Z79.899 OTHER [facility] (CURRENT) DRUG THERAPY 06/11/2018 JESUS TESFAYE FIRE LIEUTENANT Ot Z95.1 PRESENCE OF AORTOCORONARY BYPASS GRAFT [...] Ot R31.9 HEMATURIA, UNSPECIFIED 06/11/2018 ALEX CHANDLER FIRE LIEUTENANT Ot J18.9 PNEUMONIA, UNSPECIFIED ORGANISM 06/11/2018 ALEX CHANDLER FIRE LIEUTENANT Ot R05 COUGH 06/11/2018 YEHUDA FRANCO FACC, LUIS FACP CCDS Ot C91.10 CHRONIC LYMPHOCYTIC LEUK OF B-CELL TYPE 06/11/2018 YEHUDA FRANCO FACC, ALI FACP CCDS Ot E78.4 OTHER HYPERLIPIDEMIA 06/11/2018 YEHUDA FRANCO FACC, ALI FACP CCDS Ot I10 ESSENTIAL (PRIMARY) HYPERTENSION 06/11/2018 YEHUDA FRANCO FACC, ALI FACP CCDS Ot I25.10 ATHSCL HEART DISEASE OF [place] CORONARY 06/11/2018 YEHUDA FRANCO FACC, ALI FACP [...] MD Ot I25.10 ATHSCL HEART DISEASE OF [place] CORONARY 06/11/2018 JOSE JACOB MD Ot Z79.01 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 ADJUSTER (CURRENT) USE OF ANTICOAGULANT 06/11/2018 JOSE JACOB MD Ot Z79.899 OTHER 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 ADJUSTER (CURRENT) DRUG THERAPY 06/11/2018 JOSE JACOB MD [...] MD Ot I25.10 ATHSCL HEART DISEASE OF [place] CORONARY 06/12/2018 JOSE JACOB MD Ot Z79.01 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 ADJUSTER (CURRENT) USE OF ANTICOAGULANT 06/12/2018 JOSE JACOB MD Ot Z79.899 OTHER 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 ADJUSTER (CURRENT) DRUG THERAPY 06/12/2018 JOSE JACOB MD [...] MD Ot I25.10 ATHSCL HEART DISEASE OF [place] CORONARY 06/16/2018 JOSE JACOB MD Ot Z79.01 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 ADJUSTER (CURRENT) USE OF ANTICOAGULANT 06/16/2018 JOSE JACOB MD Ot Z79.899 OTHER 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 ADJUSTER (CURRENT) DRUG THERAPY 06/16/2018 JOSE JACOB MD [...] MD, Ot I25.10 ATHSCL HEART DISEASE OF [place] CORONARY 07/07/2018 JOSE JACOB MD, Ot Z79.01 [facility] (CURRENT) USE OF ANTICOAGULANT 07/07/2018 JOSE JACOB MD, Ot Z79.899 OTHER 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 ADJUSTER (CURRENT) DRUG THERAPY 07/07/2018 JOSE JACOB MD, [...] Status Pt. Type Provider Facility Loc./Unit Complaint [id number] 08/17/2018 00:25:00 08/17/2018 23:59:59 CLS Preadmit JOSE JACOB MD [facility] ONC [id number] 08/07/2018 11:29:00 08/07/2018 12:48:00 DIS Outpatient JEFFERY AYALA APRN [facility] REHAB PRIMARY OA KNEE [id number] 06/11/2018 08:14:00 06/16/2018 00:01:00 DIS Outpatient JOSE JACOB MD [facility] ONC [id number] 03/05/2018 10:41:00 06/03/2018 00:01:00 DIS Outpatient JOSE JACOB MD [facility] ONC [id number] 12/04/2017 12:48:00 03/04/2018 00:01:00 DIS Outpatient JOSE JACOB MD [facility] ONC [id number] 02/03/2018 13:24:00 02/03/2018 16:10:00 DIS Emergency ASTRID WISDOM MD [facility] ER KIDNEY ISSUES [id number] 12/04/2017 14:59:00 12/04/2017 23:59:59 CLS Preadmit NICHOLAS CASTRO MD [facility] RAD CHRONIC KIDNEY DISEASE, STAGE 3 [id number] 09/03/2017 13:50:00 12/02/2017 00:01:00 DIS Outpatient JOSE JACOB MD [facility] ONC [id number] 09/23/2017 07:18:00 09/23/2017 23:59:59 CLS Outpatient YEHUDA FRANCO FACC, LUIS ANNE CCDS [facility] CARD CAD I25.10 [id number] 08/25/2017 13:22:00 09/03/2017 13:03:00 DIS Outpatient EDMUNDO MITCHELL MD [facility] ONC [id number] 05/27/2017 08:47:00 08/16/2017 00:01:00 DIS Outpatient LUIGI ROGEL MD [facility] ONC [id number] 02/18/2017 10:19:00 03/25/2017 00:01:00 DIS Outpatient LUIGI ROGEL MD [facility] ONC [id number] 03/12/2017 06:00:00 03/12/2017 10:10:00 DIS Outpatient KINJAL PORTER MD [facility] SDC BASAL CELL CARCINOMA [id number] 03/05/2017 08:40:00 03/05/2017 09:17:00 DIS Outpatient KINJAL PORTER MD [facility] PREOP BASAL CELL CARCINOMA [id number] 01/30/2017 09:31:00 01/30/2017 12:01:00 DIS Outpatient AKIKEN GREER DO [facility] REHAB RT SHOULDER PAIN; PARTIAL RCT TEAR [id number] 12/26/2016 09:44:00 12/26/2016 23:59:59 CLS Outpatient ALEX CHANDLER [facility] RAD PNEUMONIA,COUGH [id number] 11/27/2016 08:29:00 12/03/2016 00:01:00 DIS Outpatient LUIGI ROGEL MD [facility] ONC [id number] 07/31/2016 09:08:00 08/23/2016 16:22:00 DIS Outpatient LUIGI ROGEL MD [facility] ONC [id number] 06/07/2016 11:12:00 06/07/2016 23:59:59 CLS Outpatient MADYSON MARTINEZ MD [facility] RAD HEMATERIA [id number] 05/01/2016 08:52:00 05/21/2016 00:01:00 DIS Outpatient LUIGI ROGEL MD [facility] ONC [id number] 03/28/2016 15:24:00 03/28/2016 15:56:00 DIS Emergency MARIETTA VITAL MD [facility] ER HEAD LAC [id number] 02/14/2016 09:36:00 02/14/2016 00:01:00 DIS Outpatient LUIGI ROGEL MD [facility] ONC [id number] 11/15/2015 08:33:00 11/15/2015 00:01:00 DIS Outpatient LUIGI ROGEL MD [facility] ONC [id number] 09/15/2015 06:18:00 09/15/2015 11:26:00 DIS Outpatient KINJAL PORTER MD [facility] SDC LEUKEMIA [id number] 09/14/2015 05:34:00 09/14/2015 23:59:59 CLS Outpatient KINJAL PORTER MD [facility] PREOP PORT PLACEMENT [id number] 09/13/2015 13:29:00 09/13/2015 23:59:59 CLS Outpatient JESUS TESFAYE [facility] ONC [id number] 07/26/2015 13:23:00 08/16/2015 00:01:00 DIS Outpatient LUIGI ROGEL MD [facility] ONC [id number] 08/01/2015 09:03:00 08/01/2015 23:59:59 CLS Outpatient LUIGI ROGEL MD [facility] RAD MULTIPLE MYLOMA [id number] 07/03/2015 09:55:00 07/03/2015 23:59:59 CLS Outpatient ALEX CHANDLER [facility] LAB ELEVATED WBC, ELEVATED LYMPHOCYTES [id number] 05/02/2015 10:30:00 05/02/2015 23:59:59 CLS Outpatient DEIDRE AMIN APRN [facility] CARD NIGHT SWEATS [id number] 05/09/2014 21:02:00 05/10/2014 06:25:00 DIS Outpatient MOSHE MARIE GRADES 1 THRU 6 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 TEACHER [facility] SLEEP EXCESSIVE DAYTIME SLEEPINESS [id number] 08/04/2013 12:10:00 08/04/2013 13:10:00 DIS Outpatient JENNY KIM MD [facility] CR STATUS POST ACB [id number] 08/02/2013 13:31:00 08/02/2013 00:01:00 DIS Outpatient JENNY KIM MD [facility] CR STATUS POST ACB [id number] 06/08/2013 16:44:00 06/08/2013 23:59:59 CLS Outpatient ANATOLIY LUNA [facility] RAD COUGH [id number] 04/09/2013 12:56:00 04/10/2013 11:10:00 DIS Inpatient CAT PERES MD [facility] ICU IRREGULAR HEART RATE [id number] 04/01/2013 08:50:00 04/01/2013 23:59:59 CLS Outpatient OSCAR VALENCIA [facility] CARD CAD [id number] 11/06/2018 11:56:00 PEN Preadmit KAIKEN GREER DO [facility] REHAB S/P L TKR [id number] 01/23/2016 14:14:00 Document Registration [id number] 01/23/2016 14:14:00 Document Registration [id number] 01/23/2016 14:14:00 Document Registration [id number] 07/14/2015 15:25:00 Document Registration [id number] 07/14/2015 15:25:00 Document Registration [id number] 02/03/2015 06:54:00 Document Registration [id number] 02/02/2015 05:56:00 Document Registration [id number] 03/09/2013 08:10:00 Document Registration [id number] 02/26/2013 10:43:00 Document Registration [id number] 08/24/2012 06:57:00 Document Registration [id number] 08/21/2012 08:34:00 Document Registration [id number] 08/02/2011 10:03:00 Document Registration [id number] 06/12/2011 12:03:00 Document Registration [id number] 06/03/2011 12:40:00 Document Registration [id number] 04/01/2011 11:20:00 Document Registration [id number] 01/25/2011 09:37:00 Document Registration [id number] 10/22/2006 15:56:00 Document Registration [id number] 09/12/2006 06:47:00 Document Registration [id number] 10/06/2017 23:41:23 10/06/2017 23:59:59 CLS Outpatient
--- NOTE | 2018-11-03 17:09 | Progress Note-Cardiology ---
Cardiology SOAP Progress Note Subjective: No cp or palp or syncope or shortness of breath Wishes to go home Objective: I&O/Vital Signs 11/03/18 11/03/18 11/03/18 11/03/18 07:00 08:00 09:00 11:50 Temp 97.2 99.0 Pulse 78 79 66 Resp 18 18 B/P (MAP) 120/79 (93) 133/78 (96) Pulse Ox 98 98 O2 Delivery Nasal Cannula Room Air Room Air O2 Flow Rate 2.00 11/03/18 12:04 Pulse 66 Resp 18 B/P (MAP) 133/78 Pulse Ox 98 O2 Delivery Room Air O2 Flow Rate 2.00 FiO2 100 11/03/18 00:00 Intake Total 800 ml Balance 800 ml Weight (Pounds): 199 Weight (Ounces): 5.4 Weight (Calculated Kilograms): 90.948005 Side: right Groin site without hematoma: Yes Condition: DP/PT pulses palpable, extremity w/d/p Bruising: mild bruising Constitutional: appears stated age, AAO x 3, well-developed, well-nourished Respiratory: chest is bilaterally symmetric, lungs clear to auscultation Cardiovascular: regular rate-rhythm, S1 and S2 Gastrointestional: No tender; soft, round, audible bowel sounds Extremities: other (mild swelling to left leg (post TKR on 10-20-18)) Neurologic/Psychiatric: alert, grossly intact Skin: other (L knee with steri-strips at surgial site; edges approx; no s/s of infection) Results/Procedures: Labs Laboratory Tests 11/03/18 08:45: Prothrombin Time 38.6H, INR Comment 3.9H Microbiology 11/02/18 MRSA Screen - Final, Complete MRSA not isolated Laboratory Tests 11/01/18 21:41 11/02/18 05:20 A/P: Assessment: Inferior STEMI, treated with primary PTCA on CAD/CABG/PCI HTN Chronic kidney disease, stage 2-3 Supratherapeutic INR Paroxysmal atrial fibrillation Recent knee surgery Anemia, mild, post-op, stable Plan: Hold warfarin until INR below 2. Then switch out to apixaban Continue ASA and Plavix for now D/c Plavix when starting apixaban; continue ASA Continue BB, Amiodarone, and statin BB changed to long-acting BB LVEF 55-60% on recent echo. BP well controlled we will stop JEFF (-) for now Stop Norvasc Out pt f/u Clinical Quality Measures AMI/AHF: ASA po Prior to arrival: Yes LUIS BLACKMAN MD FACP FACC CCDS Nov 03, 2018 17:09
--- NOTE | 2018-11-03 17:16 | Cardiology Discharge Summary ---
Diagnosis/Chief Complaint Date of Admission Nov 01, 2018 at 21:36 Date of Discharge Nov 03, 2018 at 12:06 Final/Discharge Diagnosis Inferior STEMI, treated with primary PTCA on CAD/CABG/PCI HTN Chronic kidney disease, stage 2-3 Supratherapeutic INR Paroxysmal atrial fibrillation Recent knee surgery Anemia, mild, post-op, stable Chief Complaint/HPI Chief Complaint/HPI This is a 73 year old patient with history of CABG x2 in 2012. PCI in LAD and left circumflex artery.. Recent knee surgery. On coumadin. Who presented with severe chest pain. Chest pain started 30 minutes before arrival. Chest pain was substernal and in the left side of the chest. It radiates to the left arm and left jaw. Moderate intensity. No associated shortness of breath, palpitations, nausea and vomiting. Patient took aspirin when the chest pain started. Patient takes Coumadin for CAD and possible atrial fibrillation. Previous history of IN and cardioversion for atrial fibrillation. Maze procedure was done during cardiac surgery. For condition at d/c and hosp course, please refer to my progress note of today' s date Discharge Summary Discussion & Recommendations Home Medications Reviewed patient Home Medication Reconciliation performed by pharmacy medication reconciliations neon technician and/or nursing. Patients Allergies have been reviewed. Discharge Home Medications: Reviewed and agree with Discharge Medication list on patient's Discharge Instruction sheet Clinical Quality Measures AMI/AHF: ASA po Prior to arrival: Yes DVT/VTE Risk/Contraindication: Risk Factor Score Per Nursin RFS Level Per Nursing on Admit: 4+=Very High LUIS BLACKMAN MD FACP FAC CCDS Nov 03, 2018 17:16
== END 2018-11-03 12:06 | disposition home or self-care (01) | DRG 251 ==
LOC: EDUNIT# 21:33 → ER 21:35 → CATH 21:35 → ICU 21:36 → CATH 11-02 00:50 → ICU 11-02 00:50 → UNDOFXSDCSVC 11-02 12:30 → 4TH 11-02 12:30 → ICU 11-02 12:30 → UNDOFXSDCACCOM 11-02 12:30 → UNDOFXSDCRRACCOM 11-02 12:36 → UNDOFXSDCACCOM 11-02 12:36 → CATH 11-03 12:06 → 4TH 11-03 12:06 → EDSTATUS 11-03 14:50
PROVIDERS: ADMIT Internal Medicine Interventional Cardiology; ATTEND Internal Medicine Interventional Cardiology
PROC: 02703ZZ Dilation of Coronary Artery, One Artery, Percutaneous Approach (ICD-10-PCS; principal; 2018-11-01)
PROC: 4A023N7 Measurement of Cardiac Sampling and Pressure, Left Heart, Percutaneous Approach (ICD-10-PCS; 2018-11-01)
PROC: B2151ZZ Fluoroscopy of Left Heart using Low Osmolar Contrast (ICD-10-PCS; 2018-11-01)
PROC: B2111ZZ Fluoroscopy of Multiple Coronary Arteries using Low Osmolar Contrast (ICD-10-PCS; 2018-11-01)
PROC: B3101ZZ Fluoroscopy of Thoracic Aorta using Low Osmolar Contrast (ICD-10-PCS; 2018-11-01)
DX: I21.11 ST elevation (STEMI) myocardial infarction involving right coronary artery (principal); I25.10 Atherosclerotic heart disease of native coronary artery without angina pectoris; N17.9 Acute kidney failure, unspecified; I48.0 Paroxysmal atrial fibrillation; I12.9 Hypertensive chronic kidney disease with stage 1 through stage 4 chronic kidney disease, or unspecified chronic kidney disease; N18.2 Chronic kidney disease, stage 2 (mild); D50.0 Iron deficiency anemia secondary to blood loss (chronic); R79.1 Abnormal coagulation profile; I73.9 Peripheral vascular disease, unspecified; E78.00 Pure hypercholesterolemia, unspecified; G47.30 Sleep apnea, unspecified; K21.9 Gastro-esophageal reflux disease without esophagitis; Z95.1 Presence of aortocoronary bypass graft; Z95.5 Presence of coronary angioplasty implant and graft; Z79.01 Long term (current) use of anticoagulants; Z79.899 Other long term (current) drug therapy; Z79.82 Long term (current) use of aspirin; Z87.891 Personal history of nicotine dependence; Z96.651 Presence of right artificial knee joint
CPT/HCPCS: 36221; 36415; 71045; 80053; 83735; 83874; 84484; 85025; 85347; 85610; 85730; 93005; 93041; 93306; 93458

== ENCOUNTER 2018-12-10 08:41 | Outpatient (RCR) | payer MEDICARE, OTHER ==
[~2018-12-10 08:41] MED LIST changes: +AMLO5TAB9 PO; +ATOR80TA76 PO; +CHOL10007 PO; +CLOP75TA28 PO; +HYDR-3820 PO; +METO-333 PO; +METO-387 PO; +RAMI10CA69 PO; +WARF2.5T82 PO
[2018-12-10 08:48] LABS: BASOPHILS % (AUTO) 1 % (0-10); EOSINOPHILS # (AUTO) 0.3 10^3/uL (0.0-0.3); EOSINOPHILS % (AUTO) 5 % (0-10); HEMATOCRIT 39 % (40-54); HEMOGLOBIN 12.9 G/DL (13.3-17.7); LYMPHOCYTES # (AUTO) 1.8 X 10^3 (1.0-4.0); LYMPHOCYTES % (AUTO) 30 % (12-44); MEAN CORPUSCULAR HEMOGLOBIN 30 PG (25-34); MEAN CORPUSCULAR HGB CONC 33 G/DL (32-36); MEAN CORPUSCULAR VOLUME 91 FL (80-99); MEAN PLATELET VOLUME 9.6 FL (7.4-10.4); MONOCYTES # (AUTO) 0.7 X 10^3 (0.0-1.0); MONOCYTES % (AUTO) 11 % (0-12); NEUTROPHILS # (AUTO) 3.2 X 10^3 (1.8-7.8); NEUTROPHILS % (AUTO) 52 % (42-75); PLATELET COUNT 279 10^3/uL (130-400); RED CELL DISTRIBUTION WIDTH 14.1 % (10.0-14.5); WHITE BLOOD COUNT 6.1 10^3/uL (4.3-11.0)
[2018-12-10 09:11] LABS: ALBUMIN 3.8 GM/DL (3.2-4.5); BILIRUBIN,TOTAL 0.5 MG/DL (0.1-1.0); CREATININE SERUM 1.49 MG/DL (0.60-1.30); TOTAL PROTEIN 6.5 GM/DL (6.4-8.2)
== END 2019-03-10 | disposition home or self-care (01) ==
LOC: ONC 08:41
PROVIDERS: ATTEND Internal Medicine Hematology & Oncology
DX: C91.10 Chronic lymphocytic 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 (principal); I25.10 Atherosclerotic heart disease of native coronary artery without angina pectoris; I10 Essential (primary) hypertension; E11.9 Type 2 diabetes mellitus without complications; E78.5 Hyperlipidemia, unspecified; Z95.1 Presence of aortocoronary bypass graft; Z79.01 Long term (current) use of anticoagulants; Z79.899 Other long term (current) drug therapy
CPT/HCPCS: 36415; 80053; 83615; 85025; 99213

== ENCOUNTER 2018-12-11 12:52 | Outpatient (RCR) | payer MEDICARE, OTHER | END 2018-12-11 13:29 | disposition home or self-care (01) | PROVIDERS: ATTEND Orthopaedic Surgery | DX: Z47.1 Aftercare following joint replacement surgery (principal); Z96.651 Presence of right artificial knee joint ==

== ENCOUNTER 2019-05-11 05:32 | Outpatient (CLI) | payer MEDICARE, OTHER ==
[~2019-05-11] VITALS: Ht 180.3 cm; Wt 90.4 kg
[2019-05-11] MEDS ORDERED: OMEP20TA7 PO (13:55)
[2019-05-11] MEDS ORDERED: FINA5TAB6 PO (13:55)
[2019-05-11] MEDS ORDERED: WARF-48 PO (13:55)
[2019-05-11] MEDS ORDERED: AMIO200T4 PO (13:55)
[2019-05-11] MEDS ORDERED: WARF2.5T82 PO (13:55)
== END 2019-05-11 14:08 | disposition home or self-care (01) ==
LOC: PREOP 05:32
PROVIDERS: ATTEND Surgery
DX: Z01.818 Encounter for other preprocedural examination (principal)

== ENCOUNTER → 2019-05-14 | Outpatient (CLI) | payer MEDICARE, OTHER ==
[~2019-05-14] MED LIST changes: +AMIO200T4 PO; +FINA5TAB6 PO; +OMEP20TA7 PO
[2019-05-14 08:51] LABS: BILIRUBIN,TOTAL 0.6 MG/DL (0.1-1.0); CALCIUM 9.2 MG/DL (8.5-10.1); CREATININE SERUM 1.36 MG/DL (0.60-1.30); POTASSIUM 4.1 MMOL/L (3.6-5.0); TOTAL PROTEIN 6.8 GM/DL (6.4-8.2)
[2019-05-14 08:55] LABS: BASOPHILS % (AUTO) 1 % (0-10); EOSINOPHILS # (AUTO) 0.3 10^3/uL (0.0-0.3); EOSINOPHILS % (AUTO) 5 % (0-10); HEMATOCRIT 41 % (40-54); HEMOGLOBIN 13.5 G/DL (13.3-17.7); LYMPHOCYTES # (AUTO) 2.1 X 10^3 (1.0-4.0); LYMPHOCYTES % (AUTO) 32 % (12-44); MEAN CORPUSCULAR HEMOGLOBIN 29 PG (25-34); MEAN CORPUSCULAR HGB CONC 33 G/DL (32-36); MEAN CORPUSCULAR VOLUME 87 FL (80-99); MEAN PLATELET VOLUME 10.3 FL (7.4-10.4); MONOCYTES # (AUTO) 0.8 X 10^3 (0.0-1.0); MONOCYTES % (AUTO) 12 % (0-12); NEUTROPHILS # (AUTO) 3.4 X 10^3 (1.8-7.8); NEUTROPHILS % (AUTO) 51 % (42-75); PLATELET COUNT 246 10^3/uL (130-400); RED CELL DISTRIBUTION WIDTH 15.1 % (10.0-14.5); WHITE BLOOD COUNT 6.5 10^3/uL (4.3-11.0)
== END ==
LOC: EDSTATUS 03-11 08:18 → ONC 08:20
PROVIDERS: ATTEND Internal Medicine Hematology & Oncology
DX: C91.10 Chronic lymphocytic 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 (principal); I25.10 Atherosclerotic heart disease of native coronary artery without angina pectoris; I10 Essential (primary) hypertension; E11.9 Type 2 diabetes mellitus without complications; E78.5 Hyperlipidemia, unspecified; Z95.1 Presence of aortocoronary bypass graft; Z79.01 Long term (current) use of anticoagulants; Z79.899 Other long term (current) drug therapy
CPT/HCPCS: 36415; 80053; 83615; 85025; 99213

== ENCOUNTER 2019-05-19 10:13 | Day surgery (SDC) | payer MEDICARE, OTHER ==
[~2019-05-19] VITALS: Ht 180.3 cm; Wt 89.4 kg
[2019-05-19] VITALS (7 sets, daily range): BP systolic 151–184; BP diastolic 77–91
--- OUTSIDE RECORDS SUMMARY | 2019-05-19 10:20 | XMS REPORT | CCD ---
Author Author Amanda Celestin MD, [facility] Address [address] [place] [address] Phone Care Team Providers Care Valuation Manager Name Role Phone PP Unavailable CCM Unavailable Summary Purpose Interface Exchange Insurance Providers Payer name Policy type / Coverage type Covered republican ID Effective Begin Date Effective End Date WPS Medicare Part B [id number] 2019 Unknown [employer] [id number] Unknown Family history Brother Diagnosis Age At [...] Unknown Retired 05/02/[address]: 1541606 Former smoker Quit in 1966 05/02/2015 Number of years using tobacco Unknown 5 - 10 05/02/2015 Allergies, Adverse Reactions, Alerts Substance Reaction Codes Entered Date Inactivated Date Status * NO KNOWN FOOD ALLERGIES Unknown 05/02/2015 No Inactive Date Active NO KNOWN DRUG ALLERGIES Unknown 05/02/2015 No Inactive Date Active Past Medical History Illness Codes Condition Status Onset Date Resolved Date Actinic keratosis ICD-9: 702.0 ICD-10: L57.0 Active 11/26/2017 Unknown Squamous cell carcinoma of skin of right lower limb, including hip ICD-9: 173.72 ICD-10: C44.722 Active 04/29/2019 Unknown Diverticulitis of small intestine with perforation and abscess without bleeding ICD-9: 562.11 ICD-10: K57.00 Active 12/23/2018 Unknown Encounter for screening for malignant neoplasm of colon ICD-9: V76.51 ICD-10: Z12.11 Active 04/08/2018 Unknown Encounter for general adult medical examination with abnormal findings ICD-9: V70.0 ICD-10: Z00.01 Active 10/31/2017 Unknown Low back pain ICD-9: 724.2 ICD-10: M54.5 Active 03/31/2018 Unknown Muscle spasm of back ICD- 9: 724.8 ICD-10: M62.830 Active 03/31/2018 Unknown Other hypertrophic disorders of the skin [...] ICD-10: Z00.00 Active 10/24/2016 Unknown Mixed hyperlipidemia ICD- 9: 272.2 ICD-10: E78.2 Active 06/23/2016 Unknown Gastro-esophageal reflux disease without esophagitis ICD-9: 530.81 ICD-10: K21.9 Active 02/20/2016 Unknown Hypertension Unknown Active 10/18/2015 Unknown Chronic lymphocytic 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 ICD-9: 204.10 ICD-10: C91.10 Active 10/17/2015 Unknown Diverticulitis ICD-9: 562.11 Active 05/01/2015 Unknown Problems Condition Codes Effective Dates Condition Status Actinic keratosis ICD-9: 702.0 ICD-10: L57.0 11/26/2017 Active Squamous cell carcinoma of skin of right lower limb, including hip ICD-9: 173.72 ICD-10: C44.722 04/29/2019 Active Diverticulitis of small intestine with perforation and abscess without bleeding ICD-9: 562.11 ICD-10: K57.00 12/23/2018 Active Encounter for screening for malignant neoplasm of colon ICD-9: V76.51 ICD-10: Z12.11 04/08/2018 Active Encounter for general adult medical examination with abnormal findings ICD-9: V70.0 ICD-10: Z00.01 10/31/2017 Active Low back pain ICD-9: 724.2 ICD-10: M54.5 03/31/2018 Active Muscle spasm of back ICD- 9: 724.8 ICD-10: M62.830 03/31/2018 Active Other hypertrophic disorders of the skin [...] V70.9 ICD-10: Z00.00 10/24/2016 Active Mixed hyperlipidemia ICD- 9: 272.2 ICD-10: E78.2 06/23/2016 Active Gastro-esophageal reflux disease without esophagitis ICD-9: 530.81 ICD-10: K21.9 02/20/2016 Active Hypertension Unknown 10/18/2015 Active Chronic lymphocytic 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 ICD-9: 204.10 ICD-10: C91.10 10/17/2015 Active Diverticulitis ICD-9: 562.11 05/01/2015 Active Medications Medication Codes Instructions Start Date Stop Date Status Fill Instructions Zithromax Z-Carlo 250 mg tablet RxNorm: 573411 2 Tablet(s) PO on 1 st day then 1 daily x 4 days ZPACK X 1 01/15/2019 04/28/2019 Inactive metronidazole 500 mg tablet RxNorm: 369089 1 Tablet(s) PO TID 12/23/2018 01/01/2019 Inactive omeprazole 20 mg capsule,delayed release RxNorm: 573908 TAKE 1 CAPSULE BY MOUTH ONCE DAILY 12/07/2018 No Stop Date Active metoprolol tartrate 25 mg tablet RxNorm: 127637 Tablet(s) TAKE 1 TABLET BY MOUTH TWICE DAILY 10/16/2018 No Stop Date Active metoprolol tartrate 25 mg tablet RxNorm: 231738 TAKE 1 TABLET BY MOUTH TWICE DAILY 07/13/2018 10/15/2018 Inactive Trilipix 135 mg capsule,delayed release RxNorm: 649746 1 Capsule(s) PO daily 06/17/2018 10/14/2018 Inactive ramipril 10 mg capsule RxNorm: 802656 TAKE ONE CAPSULE BY MOUTH ONCE DAILY 06/15/2018 No Stop Date Active omeprazole 20 mg capsule,delayed release RxNorm: 140970 Capsule(s) TAKE ONE CAPSULE BY MOUTH ONCE DAILY 06/03/2018 04/28/2019 Inactive omeprazole 20 mg capsule,delayed release RxNorm: 324959 Capsule(s) TAKE ONE CAPSULE BY MOUTH ONCE DAILY 06/02/2018 06/02/2018 Inactive metoprolol tartrate 25 mg tablet RxNorm: 718527 TAKE ONE TABLET BY MOUTH TWICE DAILY 02/16/2018 07/12/2018 Inactive omeprazole 20 mg capsule,delayed release RxNorm: 306065 TAKE ONE CAPSULE BY MOUTH ONCE DAILY 01/05/2018 06/01/2018 Inactive metoprolol tartrate 25 mg tablet RxNorm: 112196 TAKE ONE TABLET BY MOUTH TWICE DAILY 10/27/2017 02/15/2018 Inactive azithromycin 250 mg tablet RxNorm: 977078 1 Tablet(s) PO UD 2 tabs on day #1, then 1 pill daily x 4 days 09/22/2017 11/25/2017 Inactive omeprazole 20 mg capsule,delayed release RxNorm: 997225 TAKE ONE CAPSULE BY MOUTH ONCE DAILY 06/16/2017 12/12/2017 Inactive metronidazole 500 mg tablet RxNorm: 300943 1 Tablet(s) PO TID 05/08/2017 05/14/2017 Inactive ramipril 10 mg capsule RxNorm: 819157 1 Capsule(s) PO daily 03/25/2017 03/19/2018 Inactive Kenalog 40 mg/mL suspension for injection RxNorm: 9604282 Milliliter(s) Inj 01/21/2017 01/21/2017 Inactive ceftriaxone 500 mg solution for injection RxNorm: 3100113 Inj 12/30/2016 12/30/2016 Inactive Levaquin 500 mg tablet RxNorm: 057584 1 Tablet(s) PO daily 12/26/2016 01/01/2017 Inactive Tessalon Perles 100 mg capsule RxNorm: 162583 1 Capsule(s) PO TID as needed 12/26/2016 01/04/2017 Inactive prednisone 20 mg tablet RxNorm: 531040 1 Tablet(s) PO BID 12/26/2016 12/30/2016 Inactive Phenergan with Codeine Syrup RxNorm: 5-10 Milliliter(s) PO Q6 PRN 12/26/2016 04/28/2019 Inactive omeprazole 20 mg capsule,delayed release RxNorm: 874448 TAKE ONE CAPSULE BY MOUTH ONCE DAILY 12/16/2016 06/13/2017 Inactive cefdinir 300 mg capsule RxNorm: 693008 1 Capsule(s) PO BID 12/02/2016 12/08/2016 Inactive azithromycin 250 mg tablet RxNorm: 327891 Tablet(s) 2 tabs on day #1, then one tab PO daily x 4 more days 12/02/2016 12/25/2016 Inactive metoprolol tartrate 25 mg tablet RxNorm: 985758 1 Tablet(s) PO BID 10/23/2016 10/22/2016 Inactive metoprolol tartrate 25 mg tablet RxNorm: 115782 1 Tablet(s) PO BID 10/23/2016 04/28/2019 Inactive ceftriaxone 500 mg solution for injection RxNorm: 2300855 Inj 06/24/2016 06/24/2016 Inactive cefdinir 300 mg capsule RxNorm: 009038 1 Capsule(s) PO BID 06/24/2016 06/30/2016 Inactive omeprazole 20 mg capsule,delayed release RxNorm: 905675 TAKE ONE CAPSULE BY MOUTH DAILY 06/07/2016 12/03/2016 Inactive omeprazole 20 mg capsule,delayed release RxNorm: 417502 TAKE ONE CAPSULE BY MOUTH DAILY 01/29/2016 05/27/2016 Inactive metoprolol tartrate 50 mg tablet RxNorm: 741864 Tablet(s) TAKE ONE TABLET BY MOUTH DAILY 10/11/2015 10/10/2015 Inactive metoprolol tartrate 50 mg tablet RxNorm: 454994 TAKE ONE TABLET BY MOUTH DAILY 10/11/2015 10/22/2016 Inactive omeprazole 20 mg capsule,delayed release RxNorm: 912836 TAKE ONE CAPSULE BY MOUTH DAILY 08/28/2015 01/24/2016 Inactive metoprolol tartrate 50 mg tablet RxNorm: 615938 TAKE ONE TABLET BY MOUTH DAILY 08/11/2015 10/09/2015 Inactive metoprolol tartrate 50 mg tablet RxNorm: 945587 1 Tablet(s) PO daily 06/14/2015 08/10/2015 Inactive omeprazole 20 mg capsule,delayed release RxNorm: 249434 1 Capsule(s) PO daily 05/29/2015 05/28/2015 Inactive omeprazole 20 mg capsule,delayed release RxNorm: 926075 1 Capsule(s) PO daily 05/29/2015 04/28/2019 Inactive metronidazole 500 mg tablet RxNorm: 750637 1 Tablet(s) PO TID 05/02/2015 05/08/2015 Inactive finasteride 5 mg tablet RxNorm: 335645 1 Tablet(s) PO daily No Start Date Active warfarin 5 mg tablet RxNorm: 571294 1 Tablet(s) PO daily No Start Date Active Aspirin Childrens 81 mg chewable tablet RxNorm: 464213 1 Tablet(s) PO daily No Start Date Active amiodarone 200 mg tablet RxNorm: 441477 1 Tablet(s) PO daily No Start Date Active vitamin E (dl, acetate) 1,000 unit capsule RxNorm: 406877 1 Capsule(s) PO daily No Start Date Active atorvastatin 80 mg tablet RxNorm: 979207 1 Tablet(s) PO daily No Start Date Active Fish Oil 120 mg-180 mg capsule RxNorm: 100901 1 Capsule(s) PO BID No Start Date 10/30/2017 Inactive metoprolol tartrate 50 mg tablet RxNorm: 750998 1 Tablet(s) PO daily No Start Date 06/13/2015 Inactive Zetia 10 mg tablet RxNorm: 774136 1 Tablet(s) PO daily No Start Date 10/17/2015 Inactive ramipril 5 mg capsule RxNorm: 697989 1 Capsule(s) PO daily No Start Date 03/24/2017 Inactive Tessalon Perles 100 mg capsule RxNorm: 420858 1 Capsule(s) PO TID as needed No Start Date 12/25/2016 Inactive omeprazole 20 mg capsule,delayed release RxNorm: 129250 1 Capsule(s) PO daily No Start Date 05/28/2015 Inactive Zithromax Z-Carlo 250 mg tablet RxNorm: 977894 2 Tablet(s) PO on 1 st day then 1 daily x 4 days ZPACK X 1 No Start Date 01/14/2019 Inactive Trilipix 135 mg capsule,delayed release RxNorm: 730310 1 Capsule(s) PO daily No Start Date 06/16/2018 Inactive Centrum Silver tablet RxNorm: 1 Tablet(s) PO daily No Start Date 10/30/2017 Inactive Medication Administered Medication Codes Instructions Start Date Status Kenalog 40 mg/mL suspension for injection RxNorm: 4681776 Milliliter 01/21/2017 No longer Active ceftriaxone 500 mg solution for injection RxNorm: 2458918 12/30/2016 No longer Active ceftriaxone 500 mg solution for injection RxNorm: 3333491 06/24/2016 No longer Active Immunizations Vaccine Codes Date Status Influenza CVX: 141 09/11/2015 completed Pneumococcal (Adult) CVX: 33 05/02/2014 completed Assessments Condition Codes Effective Dates Actinic keratosis ICD-10: L57.0 ICD-9: 702.0 04/29/2019 Squamous cell carcinoma of skin of right lower limb, including hip ICD-10: C44.722 ICD-9: 173.72 04/29/2019 Diverticulitis of small intestine with perforation and abscess without bleeding ICD-10: K57.00 ICD-9: 562.11 12/23/2018 Encounter for screening for malignant neoplasm of colon ICD-10: Z12.11 ICD-9: V76.51 04/08/2018 Encounter for general adult medical examination with abnormal findings ICD-10: Z00.01 ICD-9: V70.0 04/03/2018 Muscle spasm of back ICD-10: M62.830 ICD-9: 724.8 03/31/2018 Low back pain ICD-10: M54.5 ICD-9: 724.2 03/31/2018 Other hypertrophic disorders of the skin ICD-10: L91.8 ICD-9: 701.9 11/26/2017 Mild cognitive impairment, so stated ICD-10: [...] 272.2 10/23/2016 Gastro-esophageal reflux disease without esophagitis ICD-10: K21.9 ICD-9: 530.81 02/21/2016 Chronic lymphocytic 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 ICD-10: C91.10 ICD-9: 204.10 10/18/2015 Diverticulitis ICD-9: 562.11 05/02/2015 Reason For Visit Reason For Visit Effective Dates Notes skin lesion 04/29/2019 mole check 12/31/2018 abdominal pain 12/23/2018 Annual Medicare Wellness Exam 04/03/2018 low back [...] Code Item Item Code Result Date Pt Txg5290 PT 30.4 seconds 05/14/2019 Pt Axo2748 INR 2.9 05/14/2019 Pt Hwv8190 Low Intensity - 1.5-2.0 05/14/2019 Pt Ugi9657 Mod intensity - 2.0-3.0 05/14/2019 Pt Wpa7813 Hi intensity - 3.0-4.0 05/14/2019 Pt Rgh1595 PT 32.1 seconds 04/30/2019 Pt Usr1688 INR 3.2 04/30/2019 Pt Das9123 Low Intensity - 1.5-2.0 04/30/2019 Pt Ypg0996 Mod intensity - 2.0-3.0 04/30/2019 Pt Jgv4379 Hi intensity - 3.0-4.0 04/30/2019 Metabolic Ord15 NA 142 mEq/L 04/19/2019 Metabolic Ord15 K 4.2 mEq/L 04/19/2019 Metabolic Ord15 CL 109 mEq/L 04/19/2019 Metabolic Ord15 CO2 24.0 mEq/L 04/19/2019 Metabolic Ord15 GLUCOSE 88 mg/dL 04/19/2019 Metabolic Ord15 BUN 22 mg/dL 04/19/2019 Metabolic Ord15 Creat 1.5 mg/dL 04/19/2019 Metabolic Ord15 B/C Ratio 14.9 Ratio 04/19/2019 Metabolic Ord15 eGFR 49 ml/min/1.73m2 04/19/2019 Metabolic Ord15 Osmo 286 mOsmo 04/19/2019 Metabolic Ord15 ANION GAP 13 04/19/2019 Metabolic Ord15 CALCIUM 9.0 mg/dL 04/19/2019 Pt Ntm9315 PT 32.2 seconds 04/15/2019 Pt Ryh7082 INR 3.2 04/15/2019 Pt Hle3186 Low Intensity - 1.5-2.0 04/15/2019 Pt Wqs5185 Mod intensity - 2.0-3.0 04/15/2019 Pt Frj6092 Hi intensity - 3.0-4.0 04/15/2019 Pt Kzc1672 PT 20.2 seconds 03/19/2019 Pt Ijy4524 INR 1.8 03/19/2019 Pt Mft0638 Low Intensity - 1.5-2.0 03/19/2019 Pt Bea0964 Mod intensity - 2.0-3.0 03/19/2019 Pt Cpz7908 Hi intensity - 3.0-4.0 03/19/2019 Pt Qel6881 PT 29.7 seconds 03/03/2019 Pt Jom3828 INR 2.9 03/03/2019 Pt Wjq5821 Low Intensity - 1.5-2.0 03/03/2019 Pt Oxu5435 Mod intensity - 2.0-3.0 03/03/2019 Pt Jpu7153 Hi intensity - 3.0-4.0 03/03/2019 Pt Xxr8316 PT 27.9 seconds 02/24/2019 Pt Ytk9639 INR 2.7 02/24/2019 Pt Ynp5386 Low Intensity - 1.5-2.0 02/24/2019 Pt Hao6052 Mod intensity - 2.0-3.0 02/24/2019 Pt Tyr8632 Hi intensity - 3.0-4.0 02/24/2019 Pt Dsy3190 PT 16.6 seconds 02/15/2019 Pt Sbk1072 INR 1.4 02/15/2019 Pt Qdu3820 Low Intensity - 1.5-2.0 02/15/2019 Pt Eks0284 Mod intensity - 2.0-3.0 02/15/2019 Pt Rsa1296 Hi intensity - 3.0-4.0 02/15/2019 Pt Twh9505 PT 16.6 seconds 02/05/2019 Pt Qwt1564 INR 1.4 02/05/2019 Pt Iva6221 Low Intensity - 1.5-2.0 02/05/2019 Pt Uac1676 Mod intensity - 2.0-3.0 02/05/2019 Pt Rnr7310 Hi intensity - 3.0-4.0 02/05/2019 Pt Iuc7423 PT 39.6 seconds 02/01/2019 Pt Zxr4859 INR 4.1 02/01/2019 Pt Xwb8649 Low Intensity - 1.5-2.0 02/01/2019 Pt Yqp4721 Mod intensity - 2.0-3.0 02/01/2019 Pt Mwy8119 Hi intensity - 3.0-4.0 02/01/2019 Pt Yhu3546 PT 31.9 seconds 01/20/2019 Pt Sbf1215 INR 3.1 01/20/2019 Pt Hub2151 Low Intensity - 1.5-2.0 01/20/2019 Pt Efx3082 Mod intensity - 2.0-3.0 01/20/2019 Pt Qmc2274 Hi intensity - 3.0-4.0 01/20/2019 Pt Sba4744 PT 21.0 seconds 01/12/2019 Pt Gqq8384 INR 1.9 01/12/2019 Pt Jnk8796 Low Intensity - 1.5-2.0 01/12/2019 Pt Ntl1288 Mod intensity - 2.0-3.0 01/12/2019 Pt Dfy7851 Hi intensity - 3.0-4.0 01/12/2019 Pt Fcu7264 PT 31.8 seconds 01/07/2019 Pt Yin0640 INR 3.1 01/07/2019 Pt Nef2675 Low Intensity - 1.5-2.0 01/07/2019 Pt Klr3340 Mod intensity - 2.0-3.0 01/07/2019 Pt Jva6732 Hi intensity - 3.0-4.0 01/07/2019 Pt Jmc3948 PT 48.2 seconds 01/05/2019 Pt Mvt9989 INR 5.2 01/05/2019 Pt Ruo3598 Low Intensity - 1.5-2.0 01/05/2019 Pt Kxh1348 Mod intensity - 2.0-3.0 01/05/2019 Pt Vqj2548 Hi intensity - 3.0-4.0 01/05/2019 Pt Cyh1255 PT 17.6 seconds 12/25/2018 Pt Muj4420 INR 1.5 12/25/2018 Pt Ser0983 Low Intensity - 1.5-2.0 12/25/2018 Pt Pfl2618 Mod intensity - 2.0-3.0 12/25/2018 Pt Six0369 Hi intensity - 3.0-4.0 12/25/2018 Cbc With Differential Ord2 WBC 7.65 K/ul 12/10/2018 Cbc With Differential Ord2 RBC 4.46 M/ul 12/10/2018 Cbc With Differential Ord2 HGB 13.4 g/dl 12/10/2018 Cbc With Differential Ord2 HCT 41.1 % 12/10/2018 Cbc With Differential Ord2 Neut% 56.7 % 12/10/2018 Cbc With Differential Ord2 MCV 92.2 fl 12/10/2018 Cbc With Differential Ord2 Lymph% 27.3 % 12/10/2018 Cbc With Differential Ord2 MCH 30.0 pg 12/10/2018 Cbc With Differential Ord2 Conway% 10.5 % 12/10/2018 Cbc With Differential Ord2 MCHC 32.6 pg 12/10/2018 Cbc With Differential Ord2 Eos% 5.2 % 12/10/2018 Cbc With Differential Ord2 PLT 281 K/ul 12/10/2018 Cbc With Differential Ord2 Baso% 0.3 % 12/10/2018 Cbc With Differential Ord2 RDW 14.4 % 12/10/2018 Cbc With Differential Ord2 Neut ABS# 4.34 K/ul 12/10/2018 Cbc With Differential Ord2 Lymph ABS# 2.09 K/ul 12/10/2018 Cbc With Differential Ord2 Conway ABS# 0.8 K/ul 12/10/2018 Cbc With Differential Ord2 Eos ABS# 0.4 K/ul 12/10/2018 Cbc With Differential Ord2 Baso ABS# 0.0 K/ul 12/10/2018 Uric Acid Ord77 Uric A 4.6 mg/dL 12/10/2018 Random Urine Protein/Creatinine Ratio Kth6029 U Prot 9.0 mg/dl 12/10/2018 Random Urine Protein/Creatinine Ratio Jix1702 U CREAT 126.0 mg/dL 12/10/2018 Random Urine Protein/Creatinine Ratio Ruy5254 R MTP/Creat Ratio 0.07 12/10/2018 Ferritin Ord22 FERRITIN 47.9 ng/mL 12/10/2018 Renal Zrx693 NA 142 mEq/L 12/10/2018 Renal Vza663 K 4.3 mEq/L 12/10/2018 Renal Hcg130 CL 106 mEq/L 12/10/2018 Renal Xzp181 CO2 30.0 mEq/L 12/10/2018 Renal Rya536 ANION GAP 10 12/10/2018 Renal Wtv690 Osmo 286 mOsmo 12/10/2018 Renal Dhr901 GLUCOSE 105 mg/dL 12/10/2018 Renal Czl342 BUN 20 mg/dL 12/10/2018 Renal Roh854 Creat 1.4 mg/dL 12/10/2018 Renal Zqx276 eGFR 52 ml/min/1.73m2 12/10/2018 Renal Xpu375 B/C Ratio 14.1 Ratio 12/10/2018 Renal Abn738 CALCIUM 9.7 mg/dL 12/10/2018 Renal Sjs754 PHOS 3.3 mg/dL 12/10/2018 Renal Vjg550 ALBUMIN 4.0 g/dL 12/10/2018 Urinalysis Ord28 U-Color Yellow 12/10/2018 Urinalysis Ord28 U-Clarity Clear 12/10/2018 Urinalysis Ord28 U-Gluc Negative 12/10/2018 Urinalysis Ord28 U-Bili Negative 12/10/2018 Urinalysis Ord28 U-Ketone Negative 12/10/2018 Urinalysis Ord28 U-SG 1.015 12/10/2018 Urinalysis Ord28 U-Blood Negative 12/10/2018 Urinalysis Ord28 U-pH 5.5 12/10/2018 Urinalysis Ord28 U-Protein Negative 12/10/2018 Urinalysis Ord28 U-Urobilin 0.2 E.U./dL E.U./dL 12/10/2018 Urinalysis Ord28 U-Nitrites Negative 12/10/2018 Urinalysis Ord28 U-Leuk Negative 12/10/2018 Urinalysis Ord28 U-Bact None 12/10/2018 Urinalysis Ord28 U-Squamous Epi None per/HPF 12/10/2018 Urinalysis Ord28 U-Crystal None per/HPF 12/10/2018 Urinalysis Ord28 U-Mucus None 12/10/2018 Urinalysis Ord28 U-Renal tubular epi None 12/10/2018 Urinalysis Ord28 U-RBC None per/HPF 12/10/2018 Urinalysis Ord28 U-Transitional epi None per/HPF 12/10/2018 Urinalysis Ord28 U-WBC None per/HPF 12/10/2018 Urinalysis Ord28 U-Cast None per/HPF 12/10/2018 Urinalysis Ord28 U-VOL VOLUME SUFFICIENT (10mL) 12/10/2018 Urinalysis Ord28 U-Yeast NEGATIVE 12/10/2018 Urinalysis Ord28 U-Com Urine saved if culture needed (specimen acceptable for 48 hours from collection if refrigerated) 12/10/2018 Tibc Ord40 Iron 69 ug/dl 12/10/2018 Tibc Ord40 UIBC 318 ug/dL 12/10/2018 Tibc Ord40 TIBC 387 ug/dL 12/10/2018 Tibc Ord40 Fe-%Sat 17.8 % 12/10/2018 Vitamin D 25 Oh Gig7588 VITAMIN D, 25 HYDROXY 27.29 ng/mL 12/10/2018 Pt Kcl1558 PT 23.1 seconds 11/05/2018 Pt Oso1064 INR 2.1 11/05/2018 Pt Ehr5514 Low Intensity - 1.5-2.0 11/05/2018 Pt Ewf0950 Mod intensity - 2.0-3.0 11/05/2018 Pt Ckq9351 Hi intensity - 3.0-4.0 11/05/2018 Pt Gsb6756 PT 29.8 seconds 08/17/2018 Pt Ujt3999 INR 2.8 08/17/2018 Pt Hjn6654 Low Intensity - 1.5-2.0 08/17/2018 Pt Nxg9961 Mod intensity - 2.0-3.0 08/17/2018 Pt Stw0316 Hi intensity - 3.0-4.0 08/17/2018 Pt Nqd4987 PT 27.7 seconds 05/18/2018 Pt Qpf1191 INR 2.6 05/18/2018 Pt Tlq7994 Low Intensity - 1.5-2.0 05/18/2018 Pt Zqz7477 Mod intensity - 2.0-3.0 05/18/2018 Pt Ouw5412 Hi intensity - 3.0-4.0 05/18/2018 Uric Acid Ord77 Uric A 3.9 mg/dL 05/18/2018 Cbc With Differential Ord2 WBC 6.21 K/ul 05/18/2018 Cbc With Differential Ord2 RBC 4.66 M/ul 05/18/2018 Cbc With Differential Ord2 HGB 14.4 g/dl 05/18/2018 Cbc With Differential Ord2 HCT 42.7 % 05/18/2018 Cbc With Differential Ord2 Neut% 48.0 % 05/18/2018 Cbc With Differential Ord2 MCV 91.6 fl 05/18/2018 Cbc With Differential Ord2 Lymph% 31.2 % 05/18/2018 Cbc With Differential Ord2 MCH 30.9 pg 05/18/2018 Cbc With Differential Ord2 Conway% 13.8 % 05/18/2018 Cbc With Differential Ord2 [...] 1.94 K/ul 05/18/2018 Cbc With Differential Ord2 Conway ABS# 0.9 K/ul 05/18/2018 Cbc With Differential Ord2 Eos ABS# 0.4 K/ul 05/18/2018 Cbc With Differential Ord2 Baso ABS# 0.0 K/ul 05/18/2018 Random Urine Protein/Creatinine Ratio Nth5628 U Prot 7.0 mg/dl 05/18/2018 Random Urine Protein/Creatinine Ratio Lvj6806 U CREAT 75.0 mg/dL 05/18/2018 Random Urine Protein/Creatinine Ratio Cfo1173 R MTP/Creat Ratio 0.09 05/18/2018 Vitamin D 25 Oh Edq8370 VITAMIN D, 25 HYDROXY 27.40 ng/mL 05/18/2018 Tibc Ord40 Iron 68 ug/dl 05/18/2018 Tibc Ord40 UIBC 308 ug/dL 05/18/2018 Tibc Ord40 TIBC 376 ug/dL 05/18/2018 Tibc Ord40 Fe-%Sat 18.1 % 05/18/2018 Parathyroid Hormone Gsz980 PTH 36.20 pg/ml 05/18/2018 Urinalysis Ord28 U-Color Yellow 05/18/2018 Urinalysis [...] U-VOL VOLUME SUFFICIENT (10mL) 05/18/2018 Urinalysis Ord28 U-Yeast NEGATIVE 05/18/2018 Urinalysis Ord28 U-Com Urine saved if culture needed (specimen acceptable for 48 hours from collection if refrigerated) 05/18/2018 Renal Tzx656 NA 141 mEq/L 05/18/2018 Renal Ona086 K 4.0 mEq/L 05/18/2018 Renal Tza255 CL 107 mEq/L 05/18/2018 Renal Itv665 CO2 27.0 mEq/L 05/18/2018 Renal Gpq320 ANION GAP 11 05/18/2018 Renal Zgz318 Osmo 282 mOsmo 05/18/2018 Renal Own273 GLUCOSE 83 mg/dL 05/18/2018 Renal Wqs817 BUN 18 mg/dL 05/18/2018 Renal Pav005 Creat 1.4 mg/dL 05/18/2018 Renal Zwo303 eGFR 55 ml/min/1.73m2 05/18/2018 Renal Ysb151 B/C Ratio 13.3 Ratio 05/18/2018 Renal Vin627 CALCIUM 9.0 mg/dL 05/18/2018 Renal Tgt310 PHOS 2.9 mg/dL 05/18/2018 Renal Lee690 ALBUMIN 4.0 g/dL 05/18/2018 Ferritin Ord22 FERRITIN 43.3 ng/mL 05/18/2018 Metabolic Ord15 NA 139 mEq/L 03/23/2018 [...] Metabolic Ord15 CALCIUM 9.2 mg/dL 03/23/2018 Pt Jiz2095 PT 29.0 seconds 03/13/2018 Pt Edt1439 INR 2.7 03/13/2018 Pt Fep8356 Low Intensity - 1.5-2.0 03/13/2018 Pt Jwn8559 Mod intensity - 2.0-3.0 03/13/2018 Pt Cjh6109 Hi intensity - 3.0-4.0 03/13/2018 Pt Jtr8109 PT 31.6 seconds 03/04/2018 Pt Rcg7259 INR 3.0 03/04/2018 Pt Phl2090 Low Intensity - 1.5-2.0 03/04/2018 Pt Fbc6194 Mod intensity - 2.0-3.0 03/04/2018 Pt Pdp3013 Hi intensity - 3.0-4.0 03/04/2018 Pt Den0003 PT 33.3 seconds 01/29/2018 Pt Kkr0409 INR 3.2 01/29/2018 Pt Vmt1773 Low Intensity - 1.5-2.0 01/29/2018 Pt Nca4212 Mod intensity - 2.0-3.0 01/29/2018 Pt Gla5080 Hi intensity - 3.0-4.0 01/29/2018 Pt Qmw0407 PT 26.1 seconds 01/21/2018 Pt Now3982 INR 2.4 01/21/2018 Pt Vfw6130 Low Intensity - 1.5-2.0 01/21/2018 Pt Aem1498 Mod intensity - 2.0-3.0 01/21/2018 Pt Mnh4653 Hi intensity - 3.0-4.0 01/21/2018 Pt Uup8627 PT 35.7 seconds 01/09/2018 Pt Dkz5674 INR 3.5 01/09/2018 Pt Hxd9936 Low Intensity - 1.5-2.0 01/09/2018 Pt Wkd6079 Mod intensity - 2.0-3.0 01/09/2018 Pt Vpo6962 Hi intensity - 3.0-4.0 01/09/2018 Pt Ygg3018 PT 23.8 seconds 12/04/2017 Pt Uwi0295 INR 2.1 12/04/2017 Pt Zaw9005 Low Intensity - 1.5-2.0 12/04/2017 Pt Dje6040 Mod intensity - 2.0-3.0 12/04/2017 Pt Hoa6784 Hi intensity - 3.0-4.0 12/04/2017 Pt Yea8208 PT 32.3 seconds 11/12/2017 Pt Oim5345 INR 3.1 11/12/2017 Pt Vll9648 Low Intensity - 1.5-2.0 11/12/2017 Pt Rhz5439 Mod intensity - 2.0-3.0 11/12/2017 Pt Pne1830 Hi intensity - 3.0-4.0 11/12/2017 Urinalysis Ord28 U-Color Yellow 10/20/2017 Urinalysis Ord28 [...] hours from collection if refrigerated) 10/20/2017 Pt Hek3144 PT 16.6 seconds 10/20/2017 Pt Vvw5812 INR 1.4 10/20/2017 Pt Hxl2437 Low Intensity - 1.5-2.0 10/20/2017 Pt Gip5113 Mod intensity - 2.0-3.0 10/20/2017 Pt Ivf3124 Hi intensity - 3.0-4.0 10/20/2017 Renal Pgd140 NA 142 mEq/L 10/20/2017 Renal Plt029 K 4.5 mEq/L 10/20/2017 Renal Mtt359 CL 107 mEq/L 10/20/2017 Renal Vkd854 CO2 28.0 mEq/L 10/20/2017 Renal Txt389 ANION GAP 12 10/20/2017 Renal Trj252 Osmo 288 mOsmo 10/20/2017 Renal Kfr614 GLUCOSE 96 mg/dL 10/20/2017 Renal Jlb175 BUN 27 mg/dL 10/20/2017 Renal Jjj250 Creat 1.6 mg/dL 10/20/2017 Renal Chp675 eGFR 46 ml/min/1.73m2 10/20/2017 Renal Srp312 B/C Ratio 17.2 Ratio 10/20/2017 Renal Rmn885 CALCIUM 9.4 mg/dL 10/20/2017 Renal Gdu089 PHOS 3.0 mg/dL 10/20/2017 Renal Dtk502 ALBUMIN 4.2 g/dL 10/20/2017 Pt Rxa4360 PT 31.2 seconds 10/17/2017 Pt Qmj5700 INR 3.0 10/17/2017 Pt Oio9829 Low Intensity - 1.5-2.0 10/17/2017 Pt Bho6069 Mod intensity - 2.0-3.0 10/17/2017 Pt Drk7394 Hi intensity - 3.0-4.0 10/17/2017 Comp Metabolic Sey985 NA 139 mEq/L 05/08/2017 Comp Metabolic Hdw181 K 4.1 mEq/L 05/08/2017 Comp Metabolic Ifu172 CL 103 mEq/L 05/08/2017 Comp Metabolic Bjd712 CO2 28.0 mEq/L 05/08/2017 Comp Metabolic Igs773 ANION GAP 12 05/08/2017 Comp Metabolic Tlw535 GLUCOSE 75 mg/dL 05/08/2017 Comp Metabolic Eer071 Creat 1.3 mg/dL 05/08/2017 Comp Metabolic Wid395 eGFR 55 ml/min/1.73m2 05/08/2017 Comp Metabolic Wbx377 BUN 20 mg/dL 05/08/2017 Comp Metabolic Wjo722 B/C Ratio 14.9 Ratio 05/08/2017 Comp Metabolic Mxb268 CALCIUM 8.8 mg/dL 05/08/2017 Comp Metabolic Szw701 ALK PHOS 51 U/L 05/08/2017 Comp Metabolic Klj777 AST(SGOT) 30 U/L 05/08/2017 Comp Metabolic Ngj451 ALT(SGPT) 31 U/L 05/08/2017 Comp Metabolic Wpn631 BILI T 0.9 mg/dL 05/08/2017 Comp Metabolic Mvh718 ALBUMIN 4.0 g/dL 05/08/2017 Comp Metabolic Ayr380 TPRO 6.5 g/dL 05/08/2017 Comp Metabolic Pcr653 GLOB 2.6 g/dL 05/08/2017 Comp Metabolic Nmm564 A/G Ratio 1.5 Ratio 05/08/2017 Comp Metabolic Eoc679 Osmo 279 mOsmo 05/08/2017 Cbc With Differential [...] 31.5 pg 05/08/2017 Cbc With Differential Ord2 [place]% 13.5 % 05/08/2017 Cbc With Differential Ord2 MCHC 33.6 pg 05/08/2017 Cbc With Differential Ord2 Eos% 2.6 % 05/08/2017 Cbc With Differential Ord2 PLT 218 K/ul 05/08/2017 Cbc With Differential Ord2 Baso% 0.2 % 05/08/2017 Cbc With Differential Ord2 RDW 13.7 % 05/08/2017 Cbc With Differential Ord2 Neut ABS# 5.78 K/ul 05/08/2017 Cbc With Differential Ord2 Lymph ABS# 1.29 K/ul 05/08/2017 Cbc With Differential Ord2 [place] ABS# 1.1 K/ul 05/08/2017 Cbc With Differential Ord2 Eos ABS# 0.2 K/ul 05/08/2017 Cbc With Differential Ord2 Baso ABS# 0.0 K/ul 05/08/2017 Pt [id number] PT 22.7 seconds 11/22/2016 Pt [id number] INR 2.1 11/22/2016 Pt Hsi7844 Low Intensity - 1.5-2.0 11/22/2016 Pt Uyl5246 Mod intensity - 2.0-3.0 11/22/2016 Pt Kwy5213 Hi intensity - 3.0-4.0 11/22/2016 Pt Iok4166 PT 24.4 seconds 10/25/2016 Pt Lhb3895 INR 2.3 10/25/2016 Pt Ojq1926 Low Intensity - 1.5-2.0 10/25/2016 Pt Meg8259 Mod intensity - 2.0-3.0 10/25/2016 Pt Vlc8007 Hi intensity - 3.0-4.0 10/25/2016 Pt Wns4239 PT 23.5 seconds 09/04/2016 Pt Xru1959 INR 2.2 09/04/2016 Pt Nhg0305 Low Intensity - 1.5-2.0 09/04/2016 Pt Xef5205 Mod intensity - 2.0-3.0 09/04/2016 Pt Cjc3978 Hi intensity - 3.0-4.0 09/04/2016 Pt Oqp3888 PT 26.1 seconds 07/09/2016 Pt Yhv8317 INR 2.6 07/09/2016 Pt Wgn1215 Low Intensity - 1.5-2.0 07/09/2016 Pt Afe0794 Mod intensity - 2.0-3.0 07/09/2016 Pt Zif5645 Hi intensity - 3.0-4.0 07/09/2016 Pt Aca2137 PT 19.4 seconds 06/24/2016 Pt Cto1345 INR 1.7 06/24/2016 Pt Lgy2242 Low Intensity - 1.5-2.0 06/24/2016 Pt Fsd4759 Mod intensity - 2.0-3.0 06/24/2016 Pt Wkb8469 Hi intensity - 3.0-4.0 06/24/2016 Pt Ipd7877 PT 28.9 seconds 04/26/2016 Pt Nkx4793 INR 2.9 04/26/2016 Pt Keq3345 Low Intensity - 1.5-2.0 04/26/2016 Pt Xqd4598 Mod intensity - 2.0-3.0 04/26/2016 Pt Ryj4973 Hi intensity - 3.0-4.0 04/26/2016 Tsh Ord6 hTSH II 1.21 uIU/mL 02/29/2016 Pt Zha2717 PT 21.8 seconds 02/29/2016 Pt Qcm9463 INR 2.0 02/29/2016 Pt Ytb0917 Low Intensity - 1.5-2.0 02/29/2016 Pt Ihm4924 Mod intensity - 2.0-3.0 02/29/2016 Pt Cci3458 Hi intensity - 3.0-4.0 02/29/2016 Lipid Ord30 CHOL 181 mg/dL 02/29/2016 Lipid Ord30 HDL 33.0 mg/dl 02/29/2016 Lipid Ord30 TRIG 248 mg/dL 02/29/2016 Lipid Ord30 LDL 98 mg/dL 02/29/2016 Lipid Ord30 C/HDL 5.5 Ratio 02/29/2016 Cbc With Differential Ord2 WBC 14.7 [...] Ord2 RDW 16.2 % 06/30/2015 Comp Metabolic Vlo125 NA 138 mEq/L 06/30/2015 Comp Metabolic Tpl989 K 4.8 mEq/L 06/30/2015 Comp Metabolic Fdp173 CL 107 mEq/L 06/30/2015 Comp Metabolic Brd215 CO2 27.0 mEq/L 06/30/2015 Comp Metabolic Ibq591 ANION GAP 9 06/30/2015 Comp Metabolic Wvo791 GLUCOSE 98 mg/dL 06/30/2015 Comp Metabolic Sdl061 Creat 1.8 mg/dL 06/30/2015 Comp Metabolic Tom942 eGFR 40 ml/min/1.73m2 06/30/2015 Comp Metabolic Yja293 BUN 20 mg/dL 06/30/2015 Comp Metabolic Jfj841 B/C Ratio 11.1 Ratio 06/30/2015 Comp Metabolic Ttr979 CALCIUM 9.1 mg/dL 06/30/2015 Comp Metabolic Krq442 ALK PHOS 39 U/L 06/30/2015 Comp Metabolic Dmn270 AST(SGOT) 21 U/L 06/30/2015 Comp Metabolic Whn896 ALT(SGPT) 23 U/L 06/30/2015 Comp Metabolic Oba958 BILI T 0.5 mg/dL 06/30/2015 Comp Metabolic Wmd917 ALBUMIN 4.0 g/dL 06/30/2015 Comp Metabolic Hay629 TPRO 6.6 g/dL 06/30/2015 Comp Metabolic Udk134 GLOB 2.6 g/dL 06/30/2015 Comp Metabolic Ggw978 A/G Ratio 1.5 Ratio 06/30/2015 Comp Metabolic Ubb153 Osmo 278 mOsmo 06/30/2015 Pt Wnb2630 PT 26.1 seconds 06/30/2015 Pt Mfh3009 INR 2.5 06/30/2015 Pt Kxd7866 Low Intensity - 1.5-2.0 06/30/2015 Pt Hxh4689 Mod intensity - 2.0-3.0 06/30/2015 Pt Vsp0095 Hi intensity - 3.0-4.0 06/30/2015 Review of Systems System Result Effective Dates Eyes No blindness 04/29/2019 Eyes No eye discharge 04/29/2019 Eyes No eye erythema 04/29/2019 Eyes No eye floaters 04/29/2019 Eyes No eye foreign body 04/29/2019 Eyes No eye pain 04/29/2019 Eyes No eye tearing 04/29/2019 Eyes No eye trauma 04/29/2019 Eyes No eyelid edema 04/29/2019 Eyes No eyelid erythema 04/29/2019 Eyes No eyelid pain 04/29/2019 Eyes No photophobia 04/29/2019 Eyes No vision change 04/29/2019 Eyes No amblyopia 04/29/2019 Eyes No cataract 04/29/2019 Eyes No glaucoma 04/29/2019 Eyes No macular degeneration 04/29/2019 Constitutional No recent illness 04/29/2019 Constitutional No night sweats 04/29/2019 Constitutional No chills 04/29/2019 Constitutional No diaphoresis 04/29/2019 Constitutional No fatigue 04/29/2019 Constitutional No fever 04/29/2019 Constitutional No insomnia 04/29/2019 Constitutional No malaise 04/29/2019 Constitutional No weight loss 04/29/2019 Constitutional No weight gain 04/29/2019 Constitutional No obesity 04/29/2019 Ears/Nose/Throat/Neck No dry mouth 04/29/2019 Ears/Nose/Throat/Neck No dental pain 04/29/2019 Ears/Nose/Throat/Neck No dizziness 04/29/2019 Ears/Nose/Throat/Neck No dysphagia 04/29/2019 Ears/Nose/Throat/Neck No headache 04/29/2019 Ears/Nose/Throat/Neck No hearing loss 04/29/2019 Ears/Nose/Throat/Neck No nasal allergies 04/29/2019 Ears/Nose/Throat/Neck No nasal discharge 04/29/2019 Ears/Nose/Throat/Neck No postnasal drip 04/29/2019 Ears/Nose/Throat/Neck No sinus congestion 04/29/2019 Ears/Nose/Throat/Neck No sore throat 04/29/2019 Cardiovascular No arrhythmia 04/29/2019 Cardiovascular No chest pain/pressure 04/29/2019 Cardiovascular No dyspnea 04/29/2019 Cardiovascular No edema 04/29/2019 Cardiovascular No exercise intolerance 04/29/2019 Cardiovascular No fatigue 04/29/2019 Cardiovascular No near-syncope/dizziness 04/29/2019 Cardiovascular No orthopnea 04/29/2019 Cardiovascular No palpitations 04/29/2019 Respiratory No electronic cigarettes/Vapor 04/29/2019 Respiratory No asthma 04/29/2019 Respiratory No pleuritic pain 04/29/2019 Respiratory No productive sputum 04/29/2019 Respiratory No chest tightness 04/29/2019 Respiratory No cigarette smoking 04/29/2019 Respiratory No cough 04/29/2019 Respiratory No dyspnea 04/29/2019 Respiratory No pedal edema 04/29/2019 Respiratory No snoring 04/29/2019 Respiratory No wheezing 04/29/2019 Gastrointestinal No hemorrhoids 04/29/2019 Gastrointestinal No abdominal pain 04/29/2019 Gastrointestinal No constipation 04/29/2019 Gastrointestinal No diarrhea 04/29/2019 Gastrointestinal No gastroesophageal reflux 04/29/2019 Gastrointestinal No melena 04/29/2019 Gastrointestinal No nausea 04/29/2019 Gastrointestinal No vomiting 04/29/2019 Genitourinary/Nephrology No dysuria 04/29/2019 Genitourinary/Nephrology No nocturia 04/29/2019 Genitourinary/Nephrology No urinary incontinence 04/29/2019 Musculoskeletal No stiffness 04/29/2019 Musculoskeletal No swelling 04/29/2019 Musculoskeletal No muscle weakness 04/29/2019 Musculoskeletal No myalgias 04/29/2019 Dermatologic sores 04/29/2019 Neurologic No dizziness 04/29/2019 Neurologic No headache 04/29/2019 Neurologic No neck pain 04/29/2019 Neurologic No syncope 04/29/2019 Constitutional No recent illness 12/31/2018 Dermatologic sores 12/31/2018 Constitutional recent illness 12/23/2018 Constitutional No chills 12/23/2018 Constitutional No diaphoresis 12/23/2018 Constitutional No fever 12/23/2018 Eyes No eye erythema 12/23/2018 Ears/Nose/Throat/Neck No nasal discharge 12/23/2018 Cardiovascular No chest pain/pressure 12/23/2018 Cardiovascular No dyspnea 12/23/2018 Respiratory No chest congestion 12/23/2018 Respiratory No cough 12/23/2018 Gastrointestinal abdominal pain 12/23/2018 Gastrointestinal No constipation 12/23/2018 Gastrointestinal diarrhea 12/23/2018 Gastrointestinal No hematochezia 12/23/2018 Gastrointestinal No melena 12/23/2018 Gastrointestinal No nausea 12/23/2018 Gastrointestinal No vomiting 12/23/2018 Neurologic No alteration of consciousness 12/23/2018 Neurologic No mental status change 12/23/2018 Constitutional No recent illness 04/03/2018 Constitutional No chills 04/03/2018 Constitutional No diaphoresis 04/03/2018 Constitutional No fever 04/03/2018 Eyes No blindness 04/03/2018 Ears/Nose/Throat/Neck No nasal discharge 04/03/2018 Cardiovascular No chest pain/pressure 04/03/2018 Cardiovascular No dyspnea 04/03/2018 Respiratory No cough 04/03/2018 Respiratory No dyspnea 04/03/2018 Neurologic No alteration of consciousness 04/03/2018 Neurologic No mental status change 04/03/2018 Constitutional No anorexia 04/03/2018 Constitutional No night sweats 04/03/2018 Constitutional No fatigue 04/03/2018 Constitutional No insomnia 04/03/2018 Constitutional No malaise 04/03/2018 Constitutional No weight loss 04/03/2018 Constitutional No weight gain 04/03/2018 Gastrointestinal No abdominal pain 04/03/2018 Musculoskeletal back pain 04/03/2018 Genitourinary/Nephrology No dysuria 04/03/2018 Dermatologic No rash 04/03/2018 Constitutional No recent illness 03/31/2018 Constitutional No anorexia 03/31/2018 Constitutional No night sweats 03/31/2018 Constitutional No chills 03/31/2018 Constitutional No diaphoresis 03/31/2018 Constitutional No fatigue 03/31/2018 Constitutional No fever 03/31/2018 Constitutional No insomnia 03/31/2018 Constitutional No malaise 03/31/2018 Constitutional No weight loss 03/31/2018 Constitutional No weight gain 03/31/2018 Musculoskeletal back pain 03/31/2018 Dermatologic No rash 03/31/2018 Dermatologic No sores 03/31/2018 Neurologic No alteration of consciousness 03/31/2018 Gastrointestinal No abdominal pain 03/31/2018 Gastrointestinal No constipation 03/31/2018 Gastrointestinal No diarrhea 03/31/2018 Genitourinary/Nephrology No dysuria 03/31/2018 Cardiovascular No chest pain/pressure 03/31/2018 Respiratory No cough 03/31/2018 Ears/Nose/Throat/Neck No dizziness 03/31/2018 Constitutional No recent illness 11/26/2017 Dermatologic acrochordon (skin tags) 11/26/2017 Dermatologic sores 11/26/2017 Constitutional No recent illness 10/31/2017 Constitutional No chills 10/31/2017 Constitutional No diaphoresis 10/31/2017 Constitutional No fever 10/31/2017 Eyes No eye erythema 10/31/2017 Ears/Nose/Throat/Neck No nasal discharge 10/31/2017 Cardiovascular No chest pain/pressure 10/31/2017 Cardiovascular No dyspnea 10/31/2017 Respiratory No cough 10/31/2017 Respiratory No dyspnea 10/31/2017 Neurologic No alteration of consciousness 10/31/2017 Neurologic No mental status change 10/31/2017 Constitutional No recent illness 10/07/2017 Constitutional No chills 10/07/2017 Constitutional No fatigue 10/07/2017 Constitutional No fever 10/07/2017 Constitutional No insomnia 10/07/2017 Constitutional No malaise 10/07/2017 Eyes No blindness 10/07/2017 Eyes No vision change 10/07/2017 Ears/Nose/Throat/Neck No dental pain 10/07/2017 Ears/Nose/Throat/Neck No dizziness 10/07/2017 Ears/Nose/Throat/Neck No dysphagia 10/07/2017 Ears/Nose/Throat/Neck No headache 10/07/2017 Ears/Nose/Throat/Neck No hearing loss 10/07/2017 Ears/Nose/Throat/Neck No nasal allergies 10/07/2017 Ears/Nose/Throat/Neck No sore throat 10/07/2017 Ears/Nose/Throat/Neck No postnasal drip 10/07/2017 Ears/Nose/Throat/Neck No sinus congestion 10/07/2017 Cardiovascular No chest pain/pressure 10/07/2017 Cardiovascular No dyspnea 10/07/2017 Cardiovascular No edema 10/07/2017 Cardiovascular No exercise intolerance 10/07/2017 Cardiovascular No fatigue 10/07/2017 Cardiovascular hypertension 10/07/2017 Cardiovascular No near-syncope/dizziness 10/07/2017 Respiratory No chest tightness 10/07/2017 Respiratory No cough 10/07/2017 Respiratory No dyspnea 10/07/2017 Respiratory No pedal edema 10/07/2017 Gastrointestinal No abdominal pain 10/07/2017 Gastrointestinal No constipation 10/07/2017 Gastrointestinal No diarrhea 10/07/2017 Gastrointestinal No gastroesophageal reflux 10/07/2017 Gastrointestinal No nausea 10/07/2017 Gastrointestinal No vomiting 10/07/2017 Genitourinary/Nephrology No dysuria 10/07/2017 Genitourinary/Nephrology No nocturia 10/07/2017 Genitourinary/Nephrology No urinary incontinence 10/07/2017 Musculoskeletal No stiffness 10/07/2017 Musculoskeletal No swelling 10/07/2017 Musculoskeletal No muscle weakness 10/07/2017 Musculoskeletal No myalgias 10/07/2017 Dermatologic No rash 10/07/2017 Dermatologic sores 10/07/2017 Neurologic No dizziness 10/07/2017 Neurologic No headache 10/07/2017 Neurologic No neck pain 10/07/2017 Neurologic No syncope 10/07/2017 Psychiatric No anxiety 10/07/2017 Psychiatric No depression 10/07/2017 Psychiatric disturbances of memory 10/07/2017 Constitutional No anorexia 09/22/2017 Constitutional No night sweats 09/22/2017 Constitutional chills 09/22/2017 Constitutional No diaphoresis 09/22/2017 Constitutional fatigue 09/22/2017 Constitutional fever 09/22/2017 Constitutional insomnia 09/22/2017 Constitutional malaise 09/22/2017 Constitutional No obesity 09/22/2017 Eyes No eye pain 09/22/2017 Eyes No vision change 09/22/2017 Ears/Nose/Throat/Neck nasal discharge 09/22/2017 Ears/Nose/Throat/Neck sore throat 09/22/2017 Cardiovascular chest pain/pressure 09/22/2017 Cardiovascular dyspnea 09/22/2017 Cardiovascular fatigue 09/22/2017 Respiratory chest congestion 09/22/2017 Respiratory chest tightness 09/22/2017 Respiratory cough 09/22/2017 Gastrointestinal No abdominal pain 09/22/2017 Gastrointestinal No nausea 09/22/2017 Gastrointestinal No vomiting 09/22/2017 Genitourinary/Nephrology No anuria/oliguria 09/22/2017 Genitourinary/Nephrology No dysuria 09/22/2017 Genitourinary/Nephrology No nocturia 09/22/2017 Musculoskeletal stiffness 09/22/2017 Musculoskeletal swelling 09/22/2017 Musculoskeletal arthralgia(s) 09/22/2017 Dermatologic No rash 09/22/2017 Dermatologic No sores 09/22/2017 Psychiatric No anxiety 09/22/2017 Psychiatric No depression 09/22/2017 Constitutional recent illness 05/08/2017 Constitutional chills 05/08/2017 Constitutional No diaphoresis 05/08/2017 Constitutional fatigue 05/08/2017 Constitutional No fever 05/08/2017 Eyes No eye erythema 05/08/2017 Ears/Nose/Throat/Neck No nasal allergies 05/08/2017 Ears/Nose/Throat/Neck No nasal discharge 05/08/2017 Cardiovascular No chest pain/pressure 05/08/2017 Cardiovascular No dyspnea 05/08/2017 Respiratory No cough 05/08/2017 Respiratory No chest congestion 05/08/2017 Gastrointestinal abdominal pain 05/08/2017 Gastrointestinal No constipation 05/08/2017 Gastrointestinal No diarrhea 05/08/2017 Gastrointestinal No vomiting 05/08/2017 Gastrointestinal No nausea 05/08/2017 Dermatologic No rash 05/08/2017 Neurologic No alteration of consciousness 05/08/2017 Neurologic No mental status change 05/08/2017 Constitutional No recent illness 03/25/2017 Constitutional No chills 03/25/2017 Constitutional No fatigue 03/25/2017 Constitutional No fever 03/25/2017 Constitutional No insomnia 03/25/2017 Constitutional No malaise 03/25/2017 Eyes No blindness 03/25/2017 Eyes No vision change 03/25/2017 Ears/Nose/Throat/Neck No dental pain 03/25/2017 Ears/Nose/Throat/Neck No dizziness 03/25/2017 Ears/Nose/Throat/Neck No dysphagia 03/25/2017 Ears/Nose/Throat/Neck No headache 03/25/2017 Ears/Nose/Throat/Neck No hearing loss 03/25/2017 Ears/Nose/Throat/Neck No nasal allergies 03/25/2017 Ears/Nose/Throat/Neck No sore throat 03/25/2017 Ears/Nose/Throat/Neck No postnasal drip 03/25/2017 Ears/Nose/Throat/Neck No sinus congestion 03/25/2017 Cardiovascular No chest pain/pressure 03/25/2017 Cardiovascular No dyspnea 03/25/2017 Cardiovascular No edema 03/25/2017 Cardiovascular No exercise intolerance 03/25/2017 Cardiovascular No fatigue 03/25/2017 Cardiovascular No near-syncope/dizziness 03/25/2017 Respiratory No chest tightness 03/25/2017 Respiratory No cough 03/25/2017 Respiratory No dyspnea 03/25/2017 Respiratory No pedal edema 03/25/2017 Gastrointestinal No abdominal pain 03/25/2017 Gastrointestinal No constipation 03/25/2017 Gastrointestinal No diarrhea 03/25/2017 Gastrointestinal No gastroesophageal reflux 03/25/2017 Gastrointestinal No nausea 03/25/2017 Gastrointestinal No vomiting 03/25/2017 Genitourinary/Nephrology No dysuria 03/25/2017 Genitourinary/Nephrology No nocturia 03/25/2017 Genitourinary/Nephrology No urinary incontinence 03/25/2017 Musculoskeletal No stiffness 03/25/2017 Musculoskeletal No swelling 03/25/2017 Musculoskeletal No muscle weakness 03/25/2017 Musculoskeletal No myalgias 03/25/2017 Dermatologic No rash [...] vision change 01/21/2017 Ears/Nose/Throat/Neck No dental pain 01/21/2017 Ears/Nose/Throat/Neck No dizziness 01/21/2017 Ears/Nose/Throat/Neck No dysphagia 01/21/2017 Ears/Nose/Throat/Neck No headache 01/21/2017 Ears/Nose/Throat/Neck No hearing loss 01/21/2017 Ears/Nose/Throat/Neck nasal allergies 01/21/2017 Ears/Nose/Throat/Neck No sore throat 01/21/2017 Ears/Nose/Throat/Neck No postnasal drip 01/21/2017 Ears/Nose/Throat/Neck No sinus congestion 01/21/2017 Cardiovascular No chest pain/pressure 01/21/2017 Cardiovascular No dyspnea 01/21/2017 Cardiovascular No edema 01/21/2017 Cardiovascular No exercise intolerance 01/21/2017 Cardiovascular No fatigue 01/21/2017 Cardiovascular No near-syncope/dizziness 01/21/2017 Respiratory No chest tightness 01/21/2017 Respiratory cough 01/21/2017 Respiratory No dyspnea 01/21/2017 Respiratory No pedal edema 01/21/2017 Gastrointestinal No abdominal pain 01/21/2017 Gastrointestinal No constipation 01/21/2017 Gastrointestinal No diarrhea 01/21/2017 Gastrointestinal No gastroesophageal reflux 01/21/2017 Gastrointestinal No nausea 01/21/2017 Gastrointestinal No vomiting 01/21/2017 Genitourinary/Nephrology No dysuria 01/21/2017 Genitourinary/Nephrology No nocturia 01/21/2017 Genitourinary/Nephrology No urinary incontinence 01/21/2017 Musculoskeletal No stiffness 01/21/2017 Musculoskeletal No swelling 01/21/2017 Musculoskeletal No muscle weakness 01/21/2017 Musculoskeletal No myalgias 01/21/2017 Dermatologic No rash 01/21/2017 Neurologic No dizziness 01/21/2017 Neurologic No headache 01/21/2017 Neurologic No neck pain 01/21/2017 Neurologic No syncope 01/21/2017 Psychiatric No anxiety 01/21/2017 Psychiatric No depression 01/21/2017 Constitutional No anorexia 01/21/2017 Constitutional No night sweats 01/21/2017 Constitutional No diaphoresis 01/21/2017 Ears/Nose/Throat/Neck nasal discharge 01/21/2017 Constitutional recent illness 12/30/2016 Constitutional No chills 12/30/2016 Constitutional No diaphoresis 12/30/2016 Constitutional No fever 12/30/2016 Eyes No eye erythema 12/30/2016 Eyes No vision change 12/30/2016 Ears/Nose/Throat/Neck nasal allergies 12/30/2016 Ears/Nose/Throat/Neck nasal discharge 12/30/2016 Ears/Nose/Throat/Neck postnasal drip 12/30/2016 Ears/Nose/Throat/Neck sinus congestion 12/30/2016 Cardiovascular No chest pain/pressure 12/30/2016 Cardiovascular No dyspnea 12/30/2016 Respiratory cough 12/30/2016 Respiratory No dyspnea 12/30/2016 Gastrointestinal No abdominal pain 12/30/2016 Gastrointestinal No constipation 12/30/2016 Gastrointestinal No diarrhea 12/30/2016 Gastrointestinal No nausea 12/30/2016 Gastrointestinal No vomiting 12/30/2016 Dermatologic No rash 12/30/2016 Constitutional No malaise 12/30/2016 Respiratory No chest congestion 12/30/2016 Musculoskeletal No joint complaint 12/30/2016 Neurologic No alteration of consciousness 12/30/2016 Neurologic No mental status change 12/30/2016 Constitutional recent illness 12/26/2016 Constitutional No anorexia 12/26/2016 Constitutional No night sweats 12/26/2016 Constitutional chills 12/26/2016 Constitutional No diaphoresis 12/26/2016 Constitutional fatigue 12/26/2016 Constitutional fever 12/26/2016 Constitutional insomnia 12/26/2016 Constitutional malaise 12/26/2016 Constitutional No weight loss 12/26/2016 Constitutional No weight gain 12/26/2016 Constitutional No obesity 12/26/2016 Eyes No eye pain 12/26/2016 Eyes No vision change 12/26/2016 Ears/Nose/Throat/Neck No dizziness 12/26/2016 Ears/Nose/Throat/Neck No headache 12/26/2016 Cardiovascular chest pain/pressure 12/26/2016 Cardiovascular dyspnea 12/26/2016 Cardiovascular fatigue 12/26/2016 Respiratory cough 12/26/2016 Respiratory chest tightness 12/26/2016 Respiratory chest congestion 12/26/2016 Gastrointestinal No abdominal pain 12/26/2016 Gastrointestinal No nausea 12/26/2016 Gastrointestinal No vomiting 12/26/2016 Genitourinary/Nephrology No dysuria 12/26/2016 Genitourinary/Nephrology No anuria/oliguria 12/26/2016 Genitourinary/Nephrology No nocturia 12/26/2016 Musculoskeletal stiffness 12/26/2016 Musculoskeletal swelling 12/26/2016 Musculoskeletal arthralgia(s) 12/26/2016 Dermatologic No rash 12/26/2016 Dermatologic No sores 12/26/2016 Neurologic headache 12/26/2016 Neurologic mental status change 12/26/2016 Psychiatric No anxiety 12/26/2016 Psychiatric No depression 12/26/2016 Endocrine No polyuria 12/26/2016 Endocrine No polydipsia 12/26/2016 Endocrine No weakness 12/26/2016 Hematologic/Lymphatic No abnormal ecchymoses 12/26/2016 Hematologic/Lymphatic No abnormal bleeding and bruising 12/26/2016 Ears/Nose/Throat/Neck nasal discharge 12/26/2016 Ears/Nose/Throat/Neck sore throat 12/26/2016 Constitutional recent illness 12/02/2016 Constitutional fatigue 12/02/2016 Constitutional No fever 12/02/2016 Cardiovascular No chest pain/pressure 12/02/2016 Cardiovascular No dyspnea 12/02/2016 Cardiovascular No edema 12/02/2016 Cardiovascular No exercise intolerance 12/02/2016 Cardiovascular No fatigue 12/02/2016 Cardiovascular No near-syncope/dizziness 12/02/2016 Respiratory cough 12/02/2016 Respiratory No dyspnea on exertion 12/02/2016 Psychiatric No anxiety 12/02/2016 Psychiatric No depression 12/02/2016 Dermatologic No rash 12/02/2016 Constitutional No recent illness 11/21/2016 Constitutional No chills 11/21/2016 Constitutional No fatigue 11/21/2016 Constitutional No fever 11/21/2016 Constitutional No insomnia 11/21/2016 Constitutional No malaise 11/21/2016 Eyes No blindness 11/21/2016 Eyes No vision change 11/21/2016 Ears/Nose/Throat/Neck No dental pain 11/21/2016 Ears/Nose/Throat/Neck No dizziness 11/21/2016 Ears/Nose/Throat/Neck No dysphagia 11/21/2016 Ears/Nose/Throat/Neck No headache 11/21/2016 Ears/Nose/Throat/Neck No hearing loss 11/21/2016 Ears/Nose/Throat/Neck No nasal allergies 11/21/2016 Ears/Nose/Throat/Neck No sore throat 11/21/2016 Ears/Nose/Throat/Neck No postnasal drip 11/21/2016 Ears/Nose/Throat/Neck No sinus congestion 11/21/2016 Cardiovascular No chest pain/pressure 11/21/2016 Cardiovascular No dyspnea 11/21/2016 Cardiovascular No edema 11/21/2016 Cardiovascular No exercise intolerance 11/21/2016 Cardiovascular No fatigue 11/21/2016 Cardiovascular No near-syncope/dizziness 11/21/2016 Respiratory No chest tightness 11/21/2016 Respiratory No cough 11/21/2016 Respiratory No dyspnea 11/21/2016 Respiratory No pedal edema 11/21/2016 Gastrointestinal No abdominal pain 11/21/2016 Gastrointestinal No constipation 11/21/2016 Gastrointestinal No diarrhea 11/21/2016 Gastrointestinal No gastroesophageal reflux 11/21/2016 Gastrointestinal No nausea 11/21/2016 Gastrointestinal No vomiting 11/21/2016 Genitourinary/Nephrology No dysuria 11/21/2016 Genitourinary/Nephrology No nocturia 11/21/2016 Genitourinary/Nephrology No urinary incontinence 11/21/2016 Musculoskeletal No stiffness 11/21/2016 Musculoskeletal No swelling 11/21/2016 Musculoskeletal No muscle weakness 11/21/2016 Musculoskeletal No myalgias 11/21/2016 Dermatologic No rash 11/21/2016 Dermatologic sores 11/21/2016 Neurologic No dizziness 11/21/2016 Neurologic No headache 11/21/2016 Neurologic No neck pain 11/21/2016 Neurologic No syncope 11/21/2016 Psychiatric No anxiety 11/21/2016 Psychiatric No depression 11/21/2016 Constitutional No recent illness 10/25/2016 Constitutional No chills 10/25/2016 Constitutional No fever 10/25/2016 Eyes No eye erythema 10/25/2016 Eyes No vision change 10/25/2016 Ears/Nose/Throat/Neck No nasal allergies 10/25/2016 Ears/Nose/Throat/Neck No sore throat 10/25/2016 Ears/Nose/Throat/Neck No postnasal drip 10/25/2016 Ears/Nose/Throat/Neck No sinus congestion 10/25/2016 Cardiovascular No chest pain/pressure 10/25/2016 Cardiovascular No dyspnea 10/25/2016 Respiratory No cough 10/25/2016 Respiratory No dyspnea 10/25/2016 Gastrointestinal No constipation 10/25/2016 Gastrointestinal No diarrhea 10/25/2016 Gastrointestinal No gastroesophageal reflux 10/25/2016 Gastrointestinal No nausea 10/25/2016 Gastrointestinal No vomiting 10/25/2016 Dermatologic No rash 10/25/2016 Respiratory No chest congestion 10/25/2016 Gastrointestinal No abdominal pain 10/25/2016 Musculoskeletal No joint complaint 10/25/2016 Neurologic No alteration of consciousness 10/25/2016 Neurologic No mental status change 10/25/2016 Constitutional No recent illness 10/23/2016 Constitutional No chills 10/23/2016 Constitutional No fatigue 10/23/2016 Constitutional No fever 10/23/2016 Constitutional No insomnia 10/23/2016 Constitutional No malaise 10/23/2016 Eyes No blindness 10/23/2016 Eyes No vision change 10/23/2016 Ears/Nose/Throat/Neck No dental pain 10/23/2016 Ears/Nose/Throat/Neck No dizziness 10/23/2016 Ears/Nose/Throat/Neck No dysphagia 10/23/2016 Ears/Nose/Throat/Neck No headache 10/23/2016 Ears/Nose/Throat/Neck No hearing loss 10/23/2016 Ears/Nose/Throat/Neck No nasal allergies 10/23/2016 Ears/Nose/Throat/Neck No sore throat 10/23/2016 Ears/Nose/Throat/Neck No postnasal drip 10/23/2016 Ears/Nose/Throat/Neck No sinus congestion 10/23/2016 Cardiovascular No chest pain/pressure 10/23/2016 Cardiovascular No dyspnea 10/23/2016 Cardiovascular No edema 10/23/2016 Cardiovascular No exercise intolerance 10/23/2016 Cardiovascular No fatigue 10/23/2016 Cardiovascular No near-syncope/dizziness 10/23/2016 Respiratory No chest tightness 10/23/2016 Respiratory No cough 10/23/2016 Respiratory No dyspnea 10/23/2016 Respiratory No pedal edema 10/23/2016 Gastrointestinal No abdominal pain 10/23/2016 Gastrointestinal No constipation 10/23/2016 Gastrointestinal No diarrhea 10/23/2016 Gastrointestinal No gastroesophageal reflux 10/23/2016 Gastrointestinal No nausea 10/23/2016 Gastrointestinal No vomiting 10/23/2016 Genitourinary/Nephrology No dysuria 10/23/2016 Genitourinary/Nephrology No nocturia 10/23/2016 Genitourinary/Nephrology No urinary incontinence 10/23/2016 Musculoskeletal No stiffness 10/23/2016 Musculoskeletal No swelling 10/23/2016 Musculoskeletal No muscle weakness 10/23/2016 Musculoskeletal No myalgias 10/23/2016 Dermatologic No rash 10/23/2016 Dermatologic sores 10/23/2016 Neurologic No dizziness 10/23/2016 Neurologic No headache 10/23/2016 Neurologic No neck pain 10/23/2016 Neurologic No syncope 10/23/2016 Psychiatric No anxiety 10/23/2016 Psychiatric No depression 10/23/2016 Constitutional No recent illness 07/29/2016 Constitutional No chills 07/29/2016 Constitutional No fever 07/29/2016 Eyes No eye erythema 07/29/2016 Eyes No vision change 07/29/2016 Ears/Nose/Throat/Neck nasal allergies 07/29/2016 Cardiovascular No chest pain/pressure 07/29/2016 Cardiovascular No dyspnea 07/29/2016 Respiratory cough 07/29/2016 Respiratory No dyspnea 07/29/2016 Gastrointestinal No abdominal pain 07/29/2016 Gastrointestinal No vomiting 07/29/2016 Dermatologic No rash 07/29/2016 Constitutional No diaphoresis 07/29/2016 Ears/Nose/Throat/Neck nasal discharge 07/29/2016 Respiratory No productive sputum 07/29/2016 Gastrointestinal No nausea 07/29/2016 Gastrointestinal No gastroesophageal reflux 07/29/2016 Gastrointestinal No diarrhea 07/29/2016 Gastrointestinal No constipation 07/29/2016 Musculoskeletal No joint complaint 07/29/2016 Neurologic No alteration of consciousness 07/29/2016 Neurologic No mental status change 07/29/2016 Constitutional No recent illness 06/24/2016 Constitutional No chills 06/24/2016 Constitutional No fatigue 06/24/2016 Constitutional No fever 06/24/2016 Constitutional No insomnia 06/24/2016 Constitutional No malaise 06/24/2016 Eyes No blindness 06/24/2016 Eyes No vision change 06/24/2016 Ears/Nose/Throat/Neck No dental pain 06/24/2016 Ears/Nose/Throat/Neck No dizziness 06/24/2016 Ears/Nose/Throat/Neck No dysphagia 06/24/2016 Ears/Nose/Throat/Neck No headache 06/24/2016 Ears/Nose/Throat/Neck No hearing loss 06/24/2016 Ears/Nose/Throat/Neck No nasal allergies 06/24/2016 Ears/Nose/Throat/Neck No sore throat 06/24/2016 Ears/Nose/Throat/Neck No postnasal drip 06/24/2016 Ears/Nose/Throat/Neck No sinus congestion 06/24/2016 Cardiovascular No chest pain/pressure 06/24/2016 Cardiovascular No dyspnea 06/24/2016 Cardiovascular No edema 06/24/2016 Cardiovascular No exercise intolerance 06/24/2016 Cardiovascular No fatigue 06/24/2016 Cardiovascular No near-syncope/dizziness 06/24/2016 Respiratory No chest tightness 06/24/2016 Respiratory No cough 06/24/2016 Respiratory No dyspnea 06/24/2016 Respiratory No pedal edema 06/24/2016 Gastrointestinal No abdominal pain 06/24/2016 Gastrointestinal No constipation 06/24/2016 Gastrointestinal No diarrhea 06/24/2016 Gastrointestinal No gastroesophageal reflux 06/24/2016 Gastrointestinal No nausea 06/24/2016 Gastrointestinal No vomiting 06/24/2016 Genitourinary/Nephrology No dysuria 06/24/2016 Genitourinary/Nephrology No nocturia 06/24/2016 Genitourinary/Nephrology No urinary incontinence 06/24/2016 Musculoskeletal No stiffness 06/24/2016 Musculoskeletal No swelling 06/24/2016 Musculoskeletal No muscle weakness 06/24/2016 Musculoskeletal No myalgias 06/24/2016 Dermatologic No rash 06/24/2016 Dermatologic sores 06/24/2016 Neurologic No dizziness 06/24/2016 Neurologic No headache 06/24/2016 Neurologic No neck pain 06/24/2016 Neurologic No syncope 06/24/2016 Psychiatric No anxiety 06/24/2016 Psychiatric No depression 06/24/2016 Constitutional No recent illness 02/21/2016 Constitutional No chills 02/21/2016 Constitutional No fatigue 02/21/2016 Constitutional No fever 02/21/2016 Constitutional No insomnia 02/21/2016 Constitutional No malaise 02/21/2016 Eyes No blindness 02/21/2016 Eyes No vision change 02/21/2016 Ears/Nose/Throat/Neck No dental pain 02/21/2016 Ears/Nose/Throat/Neck No dizziness 02/21/2016 Ears/Nose/Throat/Neck No dysphagia 02/21/2016 Ears/Nose/Throat/Neck No headache 02/21/2016 Ears/Nose/Throat/Neck No hearing loss 02/21/2016 Ears/Nose/Throat/Neck No nasal allergies 02/21/2016 Ears/Nose/Throat/Neck No sore throat 02/21/2016 Ears/Nose/Throat/Neck No postnasal drip 02/21/2016 Ears/Nose/Throat/Neck No sinus congestion 02/21/2016 Cardiovascular No chest pain/pressure 02/21/2016 Cardiovascular No dyspnea 02/21/2016 Cardiovascular No edema 02/21/2016 Cardiovascular No exercise intolerance 02/21/2016 Cardiovascular No fatigue 02/21/2016 Cardiovascular No near-syncope/dizziness 02/21/2016 Respiratory No chest tightness 02/21/2016 Respiratory No cough 02/21/2016 Respiratory No dyspnea 02/21/2016 Respiratory No pedal edema 02/21/2016 Gastrointestinal No abdominal pain 02/21/2016 Gastrointestinal No constipation 02/21/2016 Gastrointestinal No diarrhea 02/21/2016 Gastrointestinal No gastroesophageal reflux 02/21/2016 Gastrointestinal No nausea 02/21/2016 Gastrointestinal No vomiting 02/21/2016 Genitourinary/Nephrology No dysuria 02/21/2016 Genitourinary/Nephrology No nocturia 02/21/2016 Genitourinary/Nephrology No urinary incontinence 02/21/2016 Musculoskeletal No stiffness 02/21/2016 Musculoskeletal No swelling 02/21/2016 Musculoskeletal No muscle weakness 02/21/2016 Musculoskeletal No myalgias 02/21/2016 Dermatologic No rash 02/21/2016 Dermatologic sores 02/21/2016 Neurologic No dizziness 02/21/2016 Neurologic No headache 02/21/2016 Neurologic No neck pain 02/21/2016 Neurologic No syncope 02/21/2016 Psychiatric No anxiety 02/21/2016 Psychiatric No depression 02/21/2016 Constitutional No recent illness 10/18/2015 Constitutional No chills 10/18/2015 Constitutional No fatigue 10/18/2015 Constitutional No fever 10/18/2015 Constitutional No insomnia 10/18/2015 Constitutional No malaise 10/18/2015 Eyes No blindness 10/18/2015 Eyes No vision change 10/18/2015 Ears/Nose/Throat/Neck No dental pain 10/18/2015 Ears/Nose/Throat/Neck No dizziness 10/18/2015 Ears/Nose/Throat/Neck No dysphagia 10/18/2015 Ears/Nose/Throat/Neck No headache 10/18/2015 Ears/Nose/Throat/Neck No hearing loss 10/18/2015 Ears/Nose/Throat/Neck No nasal allergies 10/18/2015 Ears/Nose/Throat/Neck No sore throat 10/18/2015 Ears/Nose/Throat/Neck No postnasal drip 10/18/2015 Ears/Nose/Throat/Neck No sinus congestion 10/18/2015 Cardiovascular No chest pain/pressure 10/18/2015 Cardiovascular No dyspnea 10/18/2015 Cardiovascular No edema 10/18/2015 Cardiovascular No exercise intolerance 10/18/2015 Cardiovascular No fatigue 10/18/2015 Cardiovascular No near-syncope/dizziness 10/18/2015 Respiratory No chest tightness 10/18/2015 Respiratory No cough 10/18/2015 Respiratory No dyspnea 10/18/2015 Respiratory No pedal edema 10/18/2015 Gastrointestinal No abdominal pain 10/18/2015 Gastrointestinal No constipation 10/18/2015 Gastrointestinal No diarrhea 10/18/2015 Gastrointestinal No gastroesophageal reflux 10/18/2015 Gastrointestinal No nausea 10/18/2015 Gastrointestinal No vomiting 10/18/2015 Genitourinary/Nephrology No dysuria 10/18/2015 Genitourinary/Nephrology No nocturia 10/18/2015 Genitourinary/Nephrology No urinary incontinence 10/18/2015 Musculoskeletal No stiffness 10/18/2015 Musculoskeletal No swelling 10/18/2015 Musculoskeletal No muscle weakness 10/18/2015 Musculoskeletal No myalgias 10/18/2015 Dermatologic No rash 10/18/2015 Dermatologic sores 10/18/2015 Neurologic No dizziness 10/18/2015 Neurologic No headache 10/18/2015 Neurologic No neck pain 10/18/2015 Neurologic No syncope 10/18/2015 Psychiatric No anxiety 10/18/2015 Psychiatric No depression 10/18/2015 Constitutional No fever 05/02/2015 Constitutional night sweats 05/02/2015 Cardiovascular No chest pain/pressure 05/02/2015 Cardiovascular No dyspnea 05/02/2015 Respiratory No cough 05/02/2015 Respiratory No chest tightness 05/02/2015 Respiratory No cigarette smoking 05/02/2015 Gastrointestinal abdominal pain 05/02/2015 Gastrointestinal No constipation 05/02/2015 Gastrointestinal diarrhea 05/02/2015 Gastrointestinal No nausea 05/02/2015 Gastrointestinal No vomiting 05/02/2015 Genitourinary/Nephrology No dysuria 05/02/2015 Genitourinary/Nephrology No hematuria 05/02/2015 Genitourinary/Nephrology No urinary incontinence 05/02/2015 Dermatologic No sores 05/02/2015 Dermatologic No rash 05/02/2015 Physical Exam Exam Name System Name Item Name Status Result Effective Dates Notes Full Exam - Dermatology Constitutional general appearance Overall: well nourished 04/29/2019 None Full Exam - Dermatology Constitutional general appearance Overall: well developed 04/29/2019 None Full Exam - Dermatology Constitutional general appearance Overall: in no acute distress 04/29/2019 None Full Exam - Dermatology Constitutional general appearance Overall: of normal body habitus 04/29/2019 None Full Exam - Dermatology Constitutional general appearance Overall: well groomed 04/29/2019 None Full Exam - Dermatology Psychiatric orientation Overall: oriented to person, place and time 04/29/2019 None Full Exam - Dermatology Integument insp & palp - right lower extremity Location: on the miller 04/29/2019 1cm x 1 cm raised erythematous circular lesion with partly eroded surface Full Exam - Dermatology Integument insp & palp - head/face Location: on the left cheek 04/29/2019 AK right cheek Full Exam - General 1994 Constitutional general appearance Development: well developed 12/31/2018 None Full Exam - General 1994 Constitutional general appearance Development: appears stated age 0212/31/2018 None Full Exam - General 1994 Psychiatric orientation/consciousness Overall: oriented to person, place and time 12/31/2018 None Full Exam - General 1994 Integument inspection of skin Location: shoulder 12/31/2018 thick actinic keratosis irritated on upper shoulder/neck Full Exam - General 1994 Integument inspection of skin Location: face 12/31/2018 irritated actinic keratosis on forehead, right cheek, left cheek Full Exam - General 1994 Constitutional general appearance Overall: well developed 12/23/2018 None Full Exam - General 1994 Constitutional general appearance Overall: in no acute distress 12/23/2018 None Full Exam - General 1994 Constitutional general appearance Overall: well nourished 12/23/2018 None Full Exam - General 1994 Eyes conjunctiva/eyelids Overall: conjunctiva clear 12/23/2018 None Full Exam - General 1994 Eyes conjunctiva/eyelids Overall: cornea clear 12/23/2018 None Full Exam - General 1994 Eyes conjunctiva/eyelids Overall: eyelids normal 12/23/2018 None Full Exam - General 1994 Ears/Nose/Throat lips/teeth/gingiva Overall: benign lips 12/23/2018 None Full Exam - General 1994 Ears/Nose/Throat oral cavity/pharynx/larynx Overall: oral mucosa clear 12/23/2018 None Full Exam - General 1994 Respiratory auscultation Overall: breath sounds clear bilaterally 12/23/2018 None Full Exam - General 1994 Respiratory respiratory effort/rhythm Overall: no retractions 12/23/2018 None Full Exam - General 1994 Respiratory respiratory effort/rhythm Overall: normal rate 12/23/2018 None Full Exam - General 1994 Cardiovascular auscultation of heart Overall: regular rate 12/23/2018 None Full Exam - General 1994 Cardiovascular auscultation of heart Overall: normal heart sounds 12/23/2018 None Full Exam - General 1994 Musculoskeletal head and neck Overall: head atraumatic 12/23/2018 None Full Exam - General 1994 Neurologic cranial nerves Overall: crainial nerves 2 - 12 grossly intact 12/23/2018 None Full Exam - General 1994 Psychiatric orientation/consciousness Overall: oriented to person, place and time 12/23/2018 None Full Exam - General 1994 Psychiatric mood and affect Overall: normal mood and affect 12/23/2018 None Full Exam - General 1994 Abdomen abdominal exam Overall: normal bowel sounds 12/23/2018 None Full Exam - General 1994 Abdomen abdominal exam Lower quadrant: tender to palpation 12/23/2018 None Full Exam - General 1994 Abdomen abdominal exam Lower quadrant: dull pain 12/23/2018 None Full Exam - General 1994 Abdomen abdominal exam Lower quadrant: voluntary guarding 12/23/2018 None Full Exam - General 1994 Abdomen abdominal exam Lower quadrant: no rebound tenderness 12/23/2018 None Full Exam - General 1994 Abdomen abdominal exam Lower quadrant: soft 12/23/2018 None Full Exam - General 1994 Constitutional general appearance Overall: well developed 04/03/2018 None Full Exam - General 1994 Constitutional general appearance Overall: in no acute distress 04/03/2018 None Full Exam - General 1994 Constitutional general appearance Overall: well nourished 04/03/2018 None Full Exam - General 1994 Eyes conjunctiva/eyelids Overall: conjunctiva clear 04/03/2018 None Full Exam - General 1994 Eyes conjunctiva/eyelids Overall: eyelids normal 04/03/2018 None Full Exam [...] None Full Exam - General 1994 Eyes conjunctiva/eyelids Overall: conjunctiva clear 03/31/2018 None Full Exam - General 1994 Eyes conjunctiva/eyelids Overall: cornea clear 03/31/2018 None Full Exam - General 1994 Eyes conjunctiva/eyelids Overall: eyelids normal 03/31/2018 None Full Exam [...] None Full Exam - General 1994 Eyes conjunctiva/eyelids Overall: conjunctiva clear 10/31/2017 None Full Exam - General 1994 Eyes conjunctiva/eyelids Overall: eyelids normal 10/31/2017 None Full Exam [...] None Full Exam - General 1994 Eyes conjunctiva/eyelids Overall: conjunctiva clear 10/07/2017 None Full Exam - General 1994 Eyes conjunctiva/eyelids Overall: cornea clear 10/07/2017 None Full Exam - General 1994 Eyes conjunctiva/eyelids Overall: eyelids normal 10/07/2017 None Full Exam [...] 09/22/2017 None Full Exam - Pulmonary Eyes conjunctiva/eyelids Overall: conjunctiva clear 09/22/2017 None Full Exam - Pulmonary Eyes conjunctiva/eyelids Overall: cornea clear 09/22/2017 None Full Exam - Pulmonary Eyes conjunctiva/eyelids Overall: eyelids normal 09/22/2017 None Full Exam [...] None Full Exam - General 1994 Eyes conjunctiva/eyelids Overall: conjunctiva clear 05/08/2017 None Full Exam - General 1994 Eyes conjunctiva/eyelids Overall: eyelids normal 05/08/2017 None Full Exam [...] None Full Exam - General 1994 Eyes conjunctiva/eyelids Overall: conjunctiva clear 03/25/2017 None Full Exam - General 1994 Eyes conjunctiva/eyelids Overall: cornea clear 03/25/2017 None Full Exam - General 1994 Eyes conjunctiva/eyelids Overall: eyelids normal 03/25/2017 None Full Exam [...] - ENT Respiratory inspection Overall: normal rate 01/21/2017 None Full Exam - ENT Respiratory [...] - ENT Respiratory inspection Overall: normal rate 12/30/2016 None Full Exam - ENT Respiratory auscultation [...] 12/30/2016 None Full Exam - ENT Ears/Nose/Throat lips/teeth/gingiva Overall: benign lips 12/30/2016 None Full Exam - ENT Neurologic cranial nerves/coordination Overall: cranial nerves 2-12 grossly intact 12/30/2016 None Full Exam - Pulmonary Constitutional general appearance Overall: well nourished 12/26/2016 None Full Exam - Pulmonary Constitutional general appearance Overall: well developed 12/26/2016 None Full Exam - Pulmonary Constitutional general appearance Overall: in no acute distress 12/26/2016 None Full Exam - Pulmonary Eyes conjunctiva/eyelids Overall: conjunctiva clear 12/26/2016 None Full Exam - Pulmonary Eyes conjunctiva/eyelids Overall: cornea clear 12/26/2016 None Full Exam - Pulmonary Eyes conjunctiva/eyelids Overall: eyelids normal 12/26/2016 None Full Exam [...] - Pulmonary Neck thyroid Overall: normal size 12/26/2016 None Full Exam - Pulmonary Neck thyroid Overall: normal consistency 12/26/2016 None Full Exam - Pulmonary Neck thyroid Overall: nontender 12/26/2016 None Full Exam - Pulmonary Neck [...] General 1994 Ears/Nose/Throat otoscopic exam Tympanic membrane: air-fluid level 12/02/2016 None Full Exam - General [...] None Full Exam - General 1994 Eyes conjunctiva/eyelids Overall: conjunctiva clear 11/21/2016 None Full Exam - General 1994 Eyes conjunctiva/eyelids Overall: cornea clear 11/21/2016 None Full Exam - General 1994 Eyes conjunctiva/eyelids Overall: eyelids normal 11/21/2016 None Full Exam [...] None Full Exam - General 1994 Eyes conjunctiva/eyelids Overall: conjunctiva clear 10/25/2016 None Full Exam - General 1994 Eyes conjunctiva/eyelids Overall: eyelids normal 10/25/2016 None Full Exam [...] None Full Exam - General 1994 Eyes conjunctiva/eyelids Overall: conjunctiva clear 10/23/2016 None Full Exam - General 1994 Eyes conjunctiva/eyelids Overall: cornea clear 10/23/2016 None Full Exam - General 1994 Eyes conjunctiva/eyelids Overall: eyelids normal 10/23/2016 None Full Exam [...] None Full Exam - General 1994 Eyes conjunctiva/eyelids Overall: conjunctiva clear 07/29/2016 None Full Exam - General 1994 Eyes conjunctiva/eyelids Overall: cornea clear 07/29/2016 None Full Exam - General 1994 Eyes conjunctiva/eyelids Overall: eyelids normal 07/29/2016 None Full Exam [...] None Full Exam - General 1994 Eyes conjunctiva/eyelids Overall: conjunctiva clear 06/24/2016 None Full Exam - General 1994 Eyes conjunctiva/eyelids Overall: cornea clear 06/24/2016 None Full Exam - General 1994 Eyes conjunctiva/eyelids Overall: eyelids normal 06/24/2016 None Full Exam [...] None Full Exam - General 1994 Eyes conjunctiva/eyelids Overall: conjunctiva clear 02/21/2016 None Full Exam - General 1994 Eyes conjunctiva/eyelids Overall: cornea clear 02/21/2016 None Full Exam - General 1994 Eyes conjunctiva/eyelids Overall: eyelids normal 02/21/2016 None Full Exam [...] None Full Exam - General 1994 Eyes conjunctiva/eyelids Overall: conjunctiva clear 10/18/2015 None Full Exam - General 1994 Eyes conjunctiva/eyelids Overall: cornea clear 10/18/2015 None Full Exam - General 1994 Eyes conjunctiva/eyelids Overall: eyelids normal 10/18/2015 None Full Exam [...] None Full Exam - General 1994 Eyes conjunctiva/eyelids Overall: cornea clear 05/02/2015 None Full Exam - General 1994 Eyes conjunctiva/eyelids Overall: eyelids normal 05/02/2015 None Full Exam - General 1994 Eyes conjunctiva/eyelids Overall: conjunctiva clear 05/02/2015 None Full Exam [...] nourished 05/02/2015 None Procedures Procedure Codes Date DESTRUCT PREMALG LESION CPT-4: 79315 04/29/2019 DESTRUCT PREMALG LESION CPT-4: 18272 12/31/2018 DESTRUCT PREMALG LES 2-14 CPT-4: 07728 12/31/2018 OCCULT BLOOD FECES CPT- 4: 05637 04/08/2018 PPPS, SUBSEQ VISIT CPT- 4: G0439 04/03/2018 PPPS, SUBSEQ VISIT CPT- 4: G0439 10/31/2017 PRESCRIP TRANSMIT VIA ERX SY CPT-4: G8553 09/22/2017 THER/PROPH/DIAG INJ SC/IM CPT-4: 63111 01/21/2017 TRIAMCINOLONE ACET INJ NOS CPT-4: J3301 01/21/2017 THER/PROPH/DIAG INJ SC/IM CPT-4: 79211 12/30/2016 ROCEPHIN, PER 250 MG CPT- 4: J0696 12/30/2016 PPPS, SUBSEQ VISIT CPT- 4: G0439 10/25/2016 ROCEPHIN, PER 250 MG CPT- 4: J0696 06/24/2016 THER/PROPH/DIAG INJ SC/IM CPT-4: 82668 06/24/2016 Vital Signs Date Vital 04/29/2019 Blood Pressure 1: 158/80 Code: 8480-6 BMI: 31.0 Code: 03934-2 Heart Rate 1: 58 bpm Height: 5'8" SpO2: 96% Weight: 204 lbs 12/31/2018 Blood Pressure 1: 140/80 Code: 8480-6 BMI: 29.0 Code: 16854-8 Heart Rate 1: 86 bpm Height: 5'8" SpO2: 97% Weight: 191 lbs 12/23/2018 Blood Pressure 1: 140/68 Code: 8480-6 BMI: 29.3 Code: 13628-1 Heart Rate 1: 70 bpm Height: 5'8" SpO2: 97% Weight: 193 lbs 04/03/2018 Blood Pressure 1: 128/72 Code: 8480-6 BMI: 29.8 Code: 10360-0 Heart Rate 1: 60 bpm Height: 5'8" SpO2: 96% Weight: 196 lbs 03/31/2018 Blood Pressure 1: 128/76 Code: 8480-6 BMI: 29.8 Code: 51199-1 Heart Rate 1: 56 bpm Height: 5'8" SpO2: 98% Weight: 196 lbs 11/26/2017 Blood Pressure 1: 15676 Code: 8480-6 BMI: 29.6 Code: 02299-8 Heart Rate 1: 57 bpm Height: 5'8" SpO2: 98% Weight: 195 lbs 10/31/2017 Blood Pressure 1: 136/74 Code: 8480-6 BMI: 29.5 Code: 33736-2 Heart Rate 1: 56 bpm Height: 5'8" SpO2: 95% Waist Measure (cm): 91 cm Weight: 194 lbs 10/07/2017 Blood Pressure 1: 13672 Code: 8480-6 BMI: 30.3 Code: 80505-6 Heart Rate 1: 58 bpm Height: 5'8" SpO2: 96% Weight: 199 lbs 09/22/2017 Blood Pressure 1: 138/78 Code: 8480-6 BMI: 30.4 Code: 94907-4 Heart Rate 1: 60 bpm Height: 5'8" SpO2: 98% Temperature: 36.6 (C) / 97.9 (F) Weight: 200 lbs 05/08/2017 Blood Pressure 1: 128/80 Code: 8480-6 BMI: 30.0 Code: 36239-1 Heart Rate 1: 75 bpm Height: 5'8" SpO2: 98% Weight: 197 lbs 03/25/2017 Blood Pressure 1: 150/80 Code: 8480-6 BMI: 30.1 Code: 17347-1 Heart Rate 1: 53 bpm Height: 5'8" SpO2: 98% Weight: 198 lbs 01/21/2017 Blood Pressure 1: 156/ Code: 8480-6 BMI: 29.8 Code: 67158-0 Heart Rate 1: 95 bpm Height: 5'8" SpO2: 98% Temperature: 36.9 (C) / 98.4 (F) Weight: 196 lbs 12/30/2016 Blood Pressure 1: 122/74 Code: 8480-6 BMI: 29.8 Code: 66481-8 Heart Rate 1: 60 bpm Height: 5'8" SpO2: 96% Temperature: 37.1 (C) / 98.8 (F) Weight: 196 lbs 12/26/2016 Blood Pressure 1: 142/74 Code: 8480-6 BMI: 29.8 Code: 84434-0 Heart Rate 1: 58 bpm Height: 5'8" SpO2: 96% Temperature: 36.7 (C) / 98.0 (F) Weight: 196 lbs 12/02/2016 Blood Pressure 1: 128/78 Code: 8480-6 BMI: 30.3 Code: 11552-0 Heart Rate 1: 49 bpm Height: 5'8" SpO2: 98% Temperature: 36.5 (C) / 97.7 (F) Weight: 199 lbs 11/21/2016 Blood Pressure 1: 130/68 Code: 8480-6 BMI: 30.3 Code: 62568-9 Heart Rate 1: 54 bpm Height: 5'8" SpO2: 98% Weight: 199 lbs 10/25/2016 Blood Pressure 1: 150/92 Code: 8480-6 BMI: 29.8 Code: 17317-8 Heart Rate 1: 54 bpm Height: 5'8" SpO2: 97% Waist Measure (cm): 97 cm Weight: 196 lbs 10/23/2016 Blood Pressure 1: 150/92 Code: 8480-6 BMI: 29.9 Code: 53580-9 Heart Rate 1: 54 bpm Height: 5'8" SpO2: 98% Weight: 196 lbs 8 oz 07/29/2016 Blood Pressure 1: 144/72 Code: 8480-6 BMI: 30.3 Code: 22030-0 Heart Rate 1: 54 bpm Height: 5'8" SpO2: 98% Weight: 199 lbs 06/24/2016 Blood Pressure 1: 132/78 Code: 8480-6 BMI: 29.5 Code: 99792-0 Heart Rate 1: 59 bpm Height: 5'8" SpO2: 94% Weight: 194 lbs 02/21/2016 Blood Pressure 1: 138/84 Code: 8480-6 BMI: 30.3 Code: 87733-0 Heart Rate 1: 64 bpm Height: 5'8" SpO2: 95% Weight: 199 lbs 10/18/2015 Blood Pressure 1: 154/84 Code: 8480-6 Blood Pressure 1: 138/72 Code: 8480-6 BMI: 30.4 Code: 71987-9 Heart Rate 1: 68 bpm Height: 5'8" SpO2: 97% Weight: 200 lbs 05/02/2015 Blood Pressure 1: 114/64 Code: 8480-6 BMI: 29.0 Code: 87482-2 Heart Rate 1: 62 bpm Height: 5'8" Respiratory Rate: 20 bpm Weight: 191 lbs Functional Status No Functional Status data History of Present Illness Symptom Name Status Result Effective Date Notes Location right lower leg 04/29/2019 None Quality acute 04/29/2019 None Quality oozing 04/29/2019 None Quality erythematous 04/29/2019 None Quality tender 04/29/2019 None Onset and Resolution ongoing 04/29/2019 None Quality worsening 04/29/2019 None Onset of Symptom months ago 04/29/2019 None Frequency of Episodes daily 04/29/2019 None Location-Major on the head 12/31/2018 None Location-Major on the arms 12/31/2018 None Location-Major on the legs 12/31/2018 None Color brown 12/31/2018 None Onset and Resolution ongoing 12/31/2018 None Onset of Symptom _ years ago 12/31/2018 None Pertinent Findings Denies pain 12/31/2018 None Location in the LLQ 12/23/2018 None Quality aching 12/23/2018 None Quality cramping 12/23/2018 None Quality constant 12/23/2018 None Onset and Resolution sudden in onset 12/23/2018 None Onset of Symptom 1 weeks ago 12/23/2018 None Annual Medicare Wellness Exam Depression or [...] Annual Medicare Wellness Exam Hemaglobin A-1C (self reported) don't know 04/03/2018 None Annual Medicare Wellness Exam Blood Pressure (self reported) diagnosed with hypertension 04/03/2018 None Annual Medicare Wellness Exam Cholesterol (self reported) diagnosed with elevated cholesterol 04/03/2018 None Annual Medicare Wellness Exam Handling Stress [...] / high fat foods per day: 0-1 04/03/2018 None Annual Medicare Wellness Exam Nutrition [...] Annual Medicare Wellness Exam Blood Pressure (self reported) borderline (120/80 - 139/89) 10/31/2017 None Annual [...] Annual Medicare Wellness Exam Hemaglobin A-1C (self reported) don't know 10/31/2017 None Annual [...] with someone who has been drinking: n 10/31/2017 None Annual Medicare Wellness Exam Nutrition servings of fried food / high fat foods per day: 0 10/31/2017 None Annual Medicare [...] Denies nausea 10/07/2017 None cough Quality acute 10/07/2017 None cough Quality intermittent 10/07/2017 None cough [...] Factors activity 10/07/2017 None cough Quality acute 09/22/2017 None cough Quality intermittent 09/22/2017 None cough [...] nasal congestion 12/30/2016 None cough Quality acute 12/30/2016 None cough Quality intermittent 12/30/2016 None cough [...] Findings fever 12/26/2016 None cough Quality acute 12/26/2016 None cough Quality intermittent 12/26/2016 None cough [...] Denies fever 12/02/2016 None cough Quality acute 12/02/2016 None cough Quality intermittent 12/02/2016 None cough [...] Annual Medicare Wellness Exam Blood Pressure (self reported) high (140/90 or higher) 10/25/2016 None Annual [...] Annual Medicare Wellness Exam Hemaglobin A-1C (self reported) don't know 10/25/2016 None Annual [...] with someone who has been drinking: n 10/25/2016 None Annual Medicare Wellness Exam Nutrition servings of fried food / high fat foods per day: 1 10/25/2016 None Annual Medicare [...] the throat 07/29/2016 None cough Quality dry 07/29/2016 None cough Quality constant 07/29/2016 None cough [...] data Encounters Encounter Performer Location Codes Date 20361 EST. PATIENT, LEVEL II Diagnosis: Squamous cell carcinoma of skin of right lower limb, including hip[ICD10: C44.722] [facility] CPT-4: 60001 04/29/2019 78248 EST. PATIENT, LEVEL III Diagnosis: Diverticulitis of small intestine with perforation and abscess without bleeding[ICD10: K57.00] [facility] CPT-4: 88778 12/23/2018 ([id number]) 66596 EST. PATIENT, LEVEL III Diagnosis: Low back pain[ICD10: M54.5] Diagnosis: Muscle spasm of back[ICD10: M62.830] Leidy Husain MD, [facility] CPT-4: 95243 03/31/2018 ([id number]) 10983 EST. PATIENT, LEVEL III Diagnosis: Actinic keratosis[ICD10: L57.0] Diagnosis: Other hypertrophic disorders of the skin[ICD10: L91.8] Amanda Husain MD, [facility] CPT-4: 63278 11/26/2017 ([id number]) 05539 EST. PATIENT, LEVEL IV Diagnosis: Essential (primary) hypertension[ICD10: I10] Diagnosis: Mild cognitive impairment, so stated[ICD10: G31.84] Amanda Husain MD, [facility] CPT-4: 95666 10/07/2017 ([id number]) 80336 EST. PATIENT, LEVEL III Diagnosis: Pneumonia due to other streptococci[ICD10: J15.4] Diagnosis: Cough[ICD10: R05] Amanda Husain MD, [facility] CPT-4: 42472 09/22/2017 86604 EST. PATIENT, LEVEL IV Diagnosis: Left lower quadrant pain[ICD10: R10.32] Diagnosis: Other fatigue[ICD10: R53.83] Gabrielle Husain MD, [facility] CPT-4: 28892 05/08/2017 ([id number]) 68089 EST. PATIENT, LEVEL III Diagnosis: Essential (primary) hypertension[ICD10: I10] Amanda Husain MD, [facility] CPT-4: 66064 03/25/2017 ([id number]) 98020 EST. PATIENT, LEVEL III Diagnosis: Cough[ICD10: R05] Diagnosis: Allergic rhinitis due to pollen[ICD10: J30.1] Leidy Husain MD, [facility] CPT-4: 97555 01/21/2017 81388 EST. PATIENT, LEVEL III Diagnosis: Other allergic rhinitis[ICD10: J30.89] Diagnosis: Cough[ICD10: R05] Gabrielle Husain MD, [facility] CPT-4: 42913 12/30/2016 ([id number]) 91180 EST. PATIENT, LEVEL III Diagnosis: Cough[ICD10: R05] Diagnosis: Pneumonia, unspecified organism[ICD10: J18.9] Leidy Husain MD, [facility] CPT-4: 70960 12/26/2016 ([id number]) 47834 EST. PATIENT, LEVEL III Diagnosis: Pneumonia due to other streptococci[ICD10: J15.4] Diagnosis: Cough[ICD10: R05] Amanda Husain MD, [facility] CPT-4: 83273 12/02/2016 ([id number]) 89648 EST. PATIENT, LEVEL III Diagnosis: Essential (primary) hypertension[ICD10: I10] Amanda Husain MD [facility] CPT-4: 36538 11/21/2016 ([id number]) 16685 EST. PATIENT, LEVEL IV Diagnosis: Essential (primary) hypertension[ICD10: I10] Diagnosis: Mixed hyperlipidemia[ICD10: E78.2] Amanda Husain MD, [facility] CPT- 4: 83917 10/23/2016 10837 EST. PATIENT, LEVEL IV Diagnosis: Other allergic rhinitis[ICD10: J30.89] Diagnosis: Cough[ICD10: R05] Gabrielle Husain MD, [facility] CPT-4: 99748 07/29/2016 ([id number]) Miscellaneous no charge Diagnosis: Pneumonia, unspecified organism[ICD10: J18.9] Gabrielle Husain MD, [facility] CPT-4: 07412 06/27/2016 ([id number]) 73756 EST. PATIENT, LEVEL IV Diagnosis: Essential (primary) hypertension[ICD10: I10] Diagnosis: Pneumonia, unspecified organism[ICD10: J18.9] Diagnosis: Cough[ICD10: R05] Diagnosis: Mixed hyperlipidemia[ICD10: E78.2] Amanda Husain MD, [facility] CPT- 4: 75929 06/24/2016 ([id number]) 42918 EST. PATIENT, LEVEL IV Diagnosis: Mixed hyperlipidemia[ICD10: E78.2] Diagnosis: Essential (primary) hypertension[ICD10: I10] Diagnosis: Gastro-esophageal reflux disease without esophagitis[ICD10: K21.9] Amanda Husain MD, [facility] CPT-4: 98251 02/21/2016 ([id number]) 66252 EST. PATIENT, LEVEL IV Diagnosis: Essential (primary) hypertension[ICD10: I10] Diagnosis: Mixed hyperlipidemia[ICD10: E78.2] Diagnosis: Chronic lymphocytic 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[ICD10: C91.10] [facility] CPT-4: 98568 10/18/2015 ([id number]) OFFICE VISIT, NEW - LEVEL 3 Diagnosis: Diverticulitis[ICD9: 562.11] [facility] CPT-4: 40246 05/02/2015 Plan of Care Planned Activity Notes Codes Status Date Visit Plan: Nonhealing skin lesion -right lower leg -refer to Dr Andrade for biopsy/removal AK-cryotherapy - three cryotherapy on each lesion, dressed with neosporin and monitor lesions. 04/29/2019 Appointment: Leidy Angulo WPtel: [phone] (30 min) Complex 04/29/2019 Patient Education: Patient Medication Summary Completed 04/29/2019 Visit Plan: Actinic Keratosis - treated with cryotherapy x 3, pt advised on how to appropriately care for the lesion. Call if not improved after thorough healing - apply neosporin to skin lesions. 12/31/2018 Appointment: Amanda Husain WPtel: [address] [place], [place] [phone] (30 min) Complex 12/31/2018 Patient Education: Patient Medication Summary Completed 12/31/2018 Visit Plan: Diverticulitis - rx for antibiotic sent to pt's pharmacy - pt advised to avoid seeds, nuts, popcorn, or any other food which has been proven to upset the pt's stomach. 12/23/2018 Appointment: Gabrielle Corona WPtel: [facility] (15 min) Moderate 12/23/2018 Patient Education: Patient Medication Summary Completed 12/23/2018 Appointment: Gabrielle Corona WPtel: [facility] (30 min) Complex 12/16/2018 Appointment: Lab Draw 04/08/2018 Patient Education: Patient [...] not improve. 03/31/2018 Appointment: Leidy Angulo WPtel: [facility] [place] [address] (15 min) Moderate 03/31/2018 Patient Education: Patient Medication Summary Completed 03/31/2018 Visit Plan: Wound Instructions - Pt was instructed to keep the wound clean, wash with antibacterial soap, use triple antibiotic ointment, call if redness, pustular drainage, or any other acute concerns. 11/26/2017 Appointment: Amanda Husain WPtel: [facility] Surgical Procedure 11/26/2017 Patient Education: Patient Medication [...] care surrogate. 10/31/2017 [phone] [facility] - Annual Wellness Visit 10/31/2017 Patient [...] memory loss. 10/07/2017 Appointment: Amanda Husain WPtel: [phone] [facility] (30 min) Complex 10/07/2017 Patient Education: Patient Medication Summary Completed 10/07/2017 Patient Education: Obesity Completed 10/07/2017 Patient Education: Hypertension Completed 10/07/2017 Visit Plan: Pneumonia - Pt has been diagnosed with pneumonia by physical exam. Antibiotics have been ordered. The pt is aware of the diagnosis and the need for acute treatment of this illness. 09/22/2017 [facility]ment: [phone] (15 min) Moderate 09/22/2017 Patient Education: [...] or concerns. 05/08/2017 Appointment: Gabrielle Corona WPtel: [facility] (30 min) Complex 05/08/2017 Patient [...] 10mg daily. 03/25/2017 Appointment: Amanda Husain WPtel: [facility] (15 min) Moderate 03/25/2017 Patient Education: Patient Medication Summary Completed 03/25/2017 Appointment: Leidy Angulo WPtel: [phone] (15 min) Moderate 01/31/2017 Visit Plan: URI/Allergies - Pt advised to increase fluids, vitamin C. Discussed natural and expected course of this diagnosis and need to alert me if symptoms do not follow expected course, or if any worse. RX sent to patient's pharmacy. 01/21/2017 Appointment: Leidy Angulo WPtel: [phone] [place] (15 min) Moderate 01/21/2017 [...] the medication. 12/30/2016 Appointment: Leidy Angulo WPtel: [phone] (15 min) Moderate 12/30/2016 Appointment: Gabrielle Corona WPtel: [facility] (30 min) Complex 12/30/2016 Patient Education: Patient [...] the levaquin. 12/26/2016 Appointment: Leidy Angulo WPtel: [phone] (15 min) Moderate 12/26/2016 Patient Education: Patient Medication Summary Completed 12/26/2016 Visit Plan: Pneumonia - Pt has been diagnosed with pneumonia by physical exam. Antibiotics ordered, pt advised on starting a probiotic, and to have his inr checked on of this week. The pt is aware of the d iagnosis and the need for acute treatment of [...] at home. 11/21/2016 Appointment: [facility] Husain [facility]Ptel[facility] (15 min) Moderate 11/21/2016 Patient Education: Patient [...] surrogate. 10/25/2016 Appointment: Leidy Angulo WPtel: [phone] [phone] [facility] - Annual Wellness Visit 10/25/2016 Patient [...] medications. 10/23/2016 Appointment: [phone] (15 min) Moderate 10/23/2016 Patient Education: Patient [...] any concerns. 07/29/2016 Appointment: [phone] [facility] (15 min) Moderate 07/29/2016 Patient Education: Patient [...] to medications. 06/24/2016 Appointment: [phone] (15 min) Moderate 06/24/2016 Patient Education: Patient [...] the symptoms are not improving. 02/21/2016 Appointment: [facility] Husain[facility]el[phone] (15 min) Moderate 02/21/2016 Patient Education: Patient [...] Care Plan: COMPLETE CBC AUTOMATED LOINC : 41746-5 Ordered 05/02/2015 Care Plan: ASSAY OF TROPONIN QUANT Ordered 05/02/2015 Care Plan: ASSAY OF CK (CPK) Ordered 05/02/2015 Instructions Comment check INR today and - come by [...] symptoms are not controlled with the medication. [employer] [facility] - take three times daily x 7 days get a PT/INR check on of this week . Pneumonia - Pt has been diagnosed with pneumonia by physical exam. Antibiotics ordered, pt advised on starting a probiotic, and to have his inr checked on of this week. The pt is aware of the diagnosis and the need for acute treatment of this illness. . Pneumonia - Pt has been diagnosed with pneumonia by physical exam. Antibiotics have been ordered. The pt is aware of the diagnosis and the need for acute treatment of this illness. . Low back pain- recommend rest, tiger [...] DOPA paperwork for health care surrogate. . Diverticulitis - rx for antibiotic sent to pt's pharmacy - pt advised to avoid seeds, nuts, popcorn, or any other food which has been proven to upset the pt's stomach. Follow up appointment with Dr. Cantu on [...] worsen, or with any questions or concerns. We will call to see if you [...] DOPA paperwork for health care surrogate. . Nonhealing skin lesion -right lower leg -refer to Dr Andrade for biopsy/removal AK-cryotherapy - three cryotherapy on each lesion, dressed with neosporin and monitor lesions. change metoprolol to 25mg twice daily. . [...] office if the symptoms are not improving. . Medicare Exam - today we discussed [...] DOPA paperwork for health care surrogate. . Actinic Keratosis - treated with cryotherapy x 3, pt advised on how to appropriately care for the lesion. Call if not improved after thorough healing - apply neosporin to skin lesions. check INR today and - come by [...] and confirm that the metoprolol is TARTATE -- if so, we will need to change [...] report - he is tolerating treatments well. zyrtec - daily for allergies If in [...] and notify clinic with any concerns. . Hypertension - well controlled - continue with current medications, continue with no added salt diet. Pt has been encouraged to exercise daily. The pt has been advised to call the office if there are any acute concerns about change in blood pressure readings at home.
--- OUTSIDE RECORDS SUMMARY | 2019-05-19 10:23 | XMS REPORT | CCD ---
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 Phone PP Unavailable CCM Unavailable Summary Purpose Interface Exchange Insurance Providers Payer name Policy type / Coverage type Covered republican ID Effective Begin Date Effective End Date WPS Medicare Part B [id number] 2019 Unknown [employer] [id number] Unknown Family history Brother Diagnosis Age At [...] Unknown Retired 05/02/[address]: 9303034 Former smoker Quit in 1966 05/02/2015 Number [...] Instructions Zithromax Z-Carlo 250 mg tablet RxNorm: 767150 2 Tablet(s) PO on 1 st day then 1 daily x 4 days ZPACK X 1 01/15/2019 04/28/2019 Inactive metronidazole 500 mg tablet RxNorm: 787419 1 Tablet(s) PO TID 12/23/2018 01/01/2019 Inactive omeprazole 20 mg capsule,delayed release RxNorm: 248045 TAKE 1 CAPSULE BY MOUTH ONCE DAILY 12/07/2018 No Stop Date Active metoprolol tartrate 25 mg tablet RxNorm: 165838 Tablet(s) TAKE 1 TABLET BY MOUTH TWICE DAILY 10/16/2018 No Stop Date Active metoprolol tartrate 25 mg tablet RxNorm: 799685 TAKE 1 TABLET BY MOUTH TWICE DAILY 07/13/2018 10/15/2018 Inactive Trilipix 135 mg capsule,delayed release RxNorm: 503115 1 Capsule(s) PO daily 06/17/2018 10/14/2018 Inactive ramipril 10 mg capsule RxNorm: 006389 TAKE ONE CAPSULE BY MOUTH ONCE DAILY 06/15/2018 No Stop Date Active omeprazole 20 mg capsule,delayed release RxNorm: 477114 Capsule(s) TAKE ONE CAPSULE BY MOUTH ONCE DAILY 06/03/2018 04/28/2019 Inactive omeprazole 20 mg capsule,delayed release RxNorm: 222448 Capsule(s) TAKE ONE CAPSULE BY MOUTH ONCE DAILY 06/02/2018 06/02/2018 Inactive metoprolol tartrate 25 mg tablet RxNorm: 299376 TAKE ONE TABLET BY MOUTH TWICE DAILY 02/16/2018 07/12/2018 Inactive omeprazole 20 mg capsule,delayed release RxNorm: 611018 TAKE ONE CAPSULE BY MOUTH ONCE DAILY 01/05/2018 06/01/2018 Inactive metoprolol tartrate 25 mg tablet RxNorm: 749119 TAKE ONE TABLET BY MOUTH TWICE DAILY 10/27/2017 02/15/2018 Inactive azithromycin 250 mg tablet RxNorm: 124958 1 Tablet(s) PO UD 2 tabs on day #1, then 1 pill daily x 4 days 09/22/2017 11/25/2017 Inactive omeprazole 20 mg capsule,delayed release RxNorm: 680698 TAKE ONE CAPSULE BY MOUTH ONCE DAILY 06/16/2017 12/12/2017 Inactive metronidazole 500 mg tablet RxNorm: 505775 1 Tablet(s) PO TID 05/08/2017 05/14/2017 Inactive ramipril 10 mg capsule RxNorm: 188840 1 Capsule(s) PO daily 03/25/2017 03/19/2018 Inactive Kenalog 40 mg/mL suspension for injection RxNorm: 5615890 Milliliter(s) Inj 01/21/2017 01/21/2017 Inactive ceftriaxone 500 mg solution for injection RxNorm: 8656800 Inj 12/30/2016 12/30/2016 Inactive Levaquin 500 mg tablet RxNorm: 657462 1 Tablet(s) PO daily 12/26/2016 01/01/2017 Inactive Tessalon Perles 100 mg capsule RxNorm: 190262 1 Capsule(s) PO TID as needed 12/26/2016 01/04/2017 Inactive prednisone 20 mg tablet RxNorm: 076319 1 Tablet(s) PO BID 12/26/2016 12/30/2016 Inactive Phenergan with Codeine Syrup RxNorm: 5-10 Milliliter(s) PO Q6 PRN 12/26/2016 04/28/2019 Inactive omeprazole 20 mg capsule,delayed release RxNorm: 204807 TAKE ONE CAPSULE BY MOUTH ONCE DAILY 12/16/2016 06/13/2017 Inactive cefdinir 300 mg capsule RxNorm: 619446 1 Capsule(s) PO BID 12/02/2016 12/08/2016 Inactive azithromycin 250 mg tablet RxNorm: 218009 Tablet(s) 2 tabs on day #1, then one tab PO daily x 4 more days 12/02/2016 12/25/2016 Inactive metoprolol tartrate 25 mg tablet RxNorm: 082798 1 Tablet(s) PO BID 10/23/2016 10/22/2016 Inactive metoprolol tartrate 25 mg tablet RxNorm: 320580 1 Tablet(s) PO BID 10/23/2016 04/28/2019 Inactive ceftriaxone 500 mg solution for injection RxNorm: 4265979 Inj 06/24/2016 06/24/2016 Inactive cefdinir 300 mg capsule RxNorm: 011007 1 Capsule(s) PO BID 06/24/2016 06/30/2016 Inactive omeprazole 20 mg capsule,delayed release RxNorm: 488890 TAKE ONE CAPSULE BY MOUTH DAILY 06/07/2016 12/03/2016 Inactive omeprazole 20 mg capsule,delayed release RxNorm: 793640 TAKE ONE CAPSULE BY MOUTH DAILY 01/29/2016 05/27/2016 Inactive metoprolol tartrate 50 mg tablet RxNorm: 605000 Tablet(s) TAKE ONE TABLET BY MOUTH DAILY 10/11/2015 10/10/2015 Inactive metoprolol tartrate 50 mg tablet RxNorm: 835253 TAKE ONE TABLET BY MOUTH DAILY 10/11/2015 10/22/2016 Inactive omeprazole 20 mg capsule,delayed release RxNorm: 636264 TAKE ONE CAPSULE BY MOUTH DAILY 08/28/2015 01/24/2016 Inactive metoprolol tartrate 50 mg tablet RxNorm: 544162 TAKE ONE TABLET BY MOUTH DAILY 08/11/2015 10/09/2015 Inactive metoprolol tartrate 50 mg tablet RxNorm: 459096 1 Tablet(s) PO daily 06/14/2015 08/10/2015 Inactive omeprazole 20 mg capsule,delayed release RxNorm: 776712 1 Capsule(s) PO daily 05/29/2015 05/28/2015 Inactive omeprazole 20 mg capsule,delayed release RxNorm: 432355 1 Capsule(s) PO daily 05/29/2015 04/28/2019 Inactive metronidazole 500 mg tablet RxNorm: 943157 1 Tablet(s) PO TID 05/02/2015 05/08/2015 Inactive finasteride 5 mg tablet RxNorm: 932602 1 Tablet(s) PO daily No Start Date Active warfarin 5 mg tablet RxNorm: 608133 1 Tablet(s) PO daily No Start Date Active Aspirin Childrens 81 mg chewable tablet RxNorm: 478941 1 Tablet(s) PO daily No Start Date Active amiodarone 200 mg tablet RxNorm: 337912 1 Tablet(s) PO daily No Start Date Active vitamin E (dl, acetate) 1,000 unit capsule RxNorm: 633195 1 Capsule(s) PO daily No Start Date Active atorvastatin 80 mg tablet RxNorm: 951799 1 Tablet(s) PO daily No Start Date Active Fish Oil 120 mg-180 mg capsule RxNorm: 304988 1 Capsule(s) PO BID No Start Date 10/30/2017 Inactive metoprolol tartrate 50 mg tablet RxNorm: 022755 1 Tablet(s) PO daily No Start Date 06/13/2015 Inactive Zetia 10 mg tablet RxNorm: 544755 1 Tablet(s) PO daily No Start Date 10/17/2015 Inactive ramipril 5 mg capsule RxNorm: 979414 1 Capsule(s) PO daily No Start Date 03/24/2017 Inactive Tessalon Perles 100 mg capsule RxNorm: 756233 1 Capsule(s) PO TID as needed No Start Date 12/25/2016 Inactive omeprazole 20 mg capsule,delayed release RxNorm: 734389 1 Capsule(s) PO daily No Start Date 05/28/2015 Inactive Zithromax Z-Carlo 250 mg tablet RxNorm: 367775 2 Tablet(s) PO on 1 st day then 1 daily x 4 days ZPACK X 1 No Start Date 01/14/2019 Inactive Trilipix 135 mg capsule,delayed release RxNorm: 578522 1 Capsule(s) PO daily No Start Date 06/16/2018 Inactive Centrum Silver tablet RxNorm: 1 Tablet(s) PO daily No Start Date 10/30/2017 Inactive Medication Administered Medication Codes Instructions Start Date Status Kenalog 40 mg/mL suspension for injection RxNorm: 7558027 Milliliter 01/21/2017 No longer Active ceftriaxone 500 mg solution for injection RxNorm: 8370023 12/30/2016 No longer Active ceftriaxone 500 mg solution for injection RxNorm: 7637764 06/24/2016 No longer Active Immunizations Vaccine Codes [...] Code Item Item Code Result Date Pt Ank8336 PT 32.1 seconds 04/30/2019 Pt Fik1121 INR 3.2 04/30/2019 Pt Pfa2772 Low Intensity - 1.5-2.0 04/30/2019 Pt Ccs3890 Mod intensity - 2.0-3.0 04/30/2019 Pt Cnb8929 Hi intensity - 3.0-4.0 04/30/2019 Metabolic Ord15 [...] Metabolic Ord15 CALCIUM 9.0 mg/dL 04/19/2019 Pt Ait0742 PT 32.2 seconds 04/15/2019 Pt Vdc8848 INR 3.2 04/15/2019 Pt Vct3761 Low Intensity - 1.5-2.0 04/15/2019 Pt Xxz6721 Mod intensity - 2.0-3.0 04/15/2019 Pt Spq2040 Hi intensity - 3.0-4.0 04/15/2019 Pt Vpn6655 PT 20.2 seconds 03/19/2019 Pt Jho6706 INR 1.8 03/19/2019 Pt Wdw7676 Low Intensity - 1.5-2.0 03/19/2019 Pt Fvf7104 Mod intensity - 2.0-3.0 03/19/2019 Pt Pvz9637 Hi intensity - 3.0-4.0 03/19/2019 Pt Fhm9976 PT 29.7 seconds 03/03/2019 Pt Ixc3062 INR 2.9 03/03/2019 Pt Cys8466 Low Intensity - 1.5-2.0 03/03/2019 Pt Ssa2554 Mod intensity - 2.0-3.0 03/03/2019 Pt Ugw9541 Hi intensity - 3.0-4.0 03/03/2019 Pt Lpc5352 PT 27.9 seconds 02/24/2019 Pt Akm4563 INR 2.7 02/24/2019 Pt Cwj5763 Low Intensity - 1.5-2.0 02/24/2019 Pt Doe6216 Mod intensity - 2.0-3.0 02/24/2019 Pt Ptb9763 Hi intensity - 3.0-4.0 02/24/2019 Pt Qjt1992 PT 16.6 seconds 02/15/2019 Pt Umy7886 INR 1.4 02/15/2019 Pt Mas6095 Low Intensity - 1.5-2.0 02/15/2019 Pt Oyf3660 Mod intensity - 2.0-3.0 02/15/2019 Pt Uds8431 Hi intensity - 3.0-4.0 02/15/2019 Pt Cus9973 PT 16.6 seconds 02/05/2019 Pt Zla1922 INR 1.4 02/05/2019 Pt Bry4169 Low Intensity - 1.5-2.0 02/05/2019 Pt Spz8963 Mod intensity - 2.0-3.0 02/05/2019 Pt Eep6211 Hi intensity - 3.0-4.0 02/05/2019 Pt Btn5825 PT 39.6 seconds 02/01/2019 Pt Sga2209 INR 4.1 02/01/2019 Pt Vot6239 Low Intensity - 1.5-2.0 02/01/2019 Pt Kpr2028 Mod intensity - 2.0-3.0 02/01/2019 Pt Pvt5621 Hi intensity - 3.0-4.0 02/01/2019 Pt Xfu6091 PT 31.9 seconds 01/20/2019 Pt Ndf0822 INR 3.1 01/20/2019 Pt Rou7064 Low Intensity - 1.5-2.0 01/20/2019 Pt Vpf1184 Mod intensity - 2.0-3.0 01/20/2019 Pt Cmy5112 Hi intensity - 3.0-4.0 01/20/2019 Pt Ezh3560 PT 21.0 seconds 01/12/2019 Pt Qyr0220 INR 1.9 01/12/2019 Pt Knd6480 Low Intensity - 1.5-2.0 01/12/2019 Pt Pgh6562 Mod intensity - 2.0-3.0 01/12/2019 Pt Ctz6441 Hi intensity - 3.0-4.0 01/12/2019 Pt Tut7643 PT 31.8 seconds 01/07/2019 Pt Zdf0313 INR 3.1 01/07/2019 Pt Yaq0822 Low Intensity - 1.5-2.0 01/07/2019 Pt Ntv0191 Mod intensity - 2.0-3.0 01/07/2019 Pt Uvl0237 Hi intensity - 3.0-4.0 01/07/2019 Pt Mxg8731 PT 48.2 seconds 01/05/2019 Pt Kbm0181 INR 5.2 01/05/2019 Pt Meg7125 Low Intensity - 1.5-2.0 01/05/2019 Pt Ycl5109 Mod intensity - 2.0-3.0 01/05/2019 Pt Qba5076 Hi intensity - 3.0-4.0 01/05/2019 Pt Hls3610 PT 17.6 seconds 12/25/2018 Pt Nxd9705 INR 1.5 12/25/2018 Pt Qnz8564 Low Intensity - 1.5-2.0 12/25/2018 Pt Txk2127 Mod intensity - 2.0-3.0 12/25/2018 Pt Vbq8934 Hi intensity - 3.0-4.0 12/25/2018 Cbc With [...] 30.0 pg 12/10/2018 Cbc With Differential Ord2 Lawrence% 10.5 % 12/10/2018 Cbc With Differential Ord2 [...] 2.09 K/ul 12/10/2018 Cbc With Differential Ord2 Lawrence ABS# 0.8 K/ul 12/10/2018 Cbc With Differential Ord2 Eos ABS# 0.4 K/ul 12/10/2018 Cbc With Differential Ord2 Baso ABS# 0.0 K/ul 12/10/2018 Uric Acid Ord77 Uric A 4.6 mg/dL 12/10/2018 Random Urine Protein/Creatinine Ratio Wid1437 U Prot 9.0 mg/dl 12/10/2018 Random Urine Protein/Creatinine Ratio Lcc3136 U CREAT 126.0 mg/dL 12/10/2018 Random Urine Protein/Creatinine Ratio Wjq0605 R MTP/Creat Ratio 0.07 12/10/2018 Ferritin Ord22 FERRITIN 47.9 ng/mL 12/10/2018 Renal Fbw026 NA 142 mEq/L 12/10/2018 Renal Waf675 K 4.3 mEq/L 12/10/2018 Renal Uus475 CL 106 mEq/L 12/10/2018 Renal Kxx539 CO2 30.0 mEq/L 12/10/2018 Renal Hcc209 ANION GAP 10 12/10/2018 Renal Weo468 Osmo 286 mOsmo 12/10/2018 Renal Rnt206 GLUCOSE 105 mg/dL 12/10/2018 Renal Qlt270 BUN 20 mg/dL 12/10/2018 Renal Moi948 Creat 1.4 mg/dL 12/10/2018 Renal Gfb852 eGFR 52 ml/min/1.73m2 12/10/2018 Renal Zay617 B/C Ratio 14.1 Ratio 12/10/2018 Renal Vmf921 CALCIUM 9.7 mg/dL 12/10/2018 Renal Ekv571 PHOS 3.3 mg/dL 12/10/2018 Renal Ogw190 ALBUMIN 4.0 g/dL 12/10/2018 Urinalysis Ord28 U-Color [...] 17.8 % 12/10/2018 Vitamin D 25 Oh Wol3013 VITAMIN D, 25 HYDROXY 27.29 ng/mL 12/10/2018 Pt Qms0906 PT 23.1 seconds 11/05/2018 Pt Syg6172 INR 2.1 11/05/2018 Pt Woz7696 Low Intensity - 1.5-2.0 11/05/2018 Pt Dqw8463 Mod intensity - 2.0-3.0 11/05/2018 Pt Kkr4909 Hi intensity - 3.0-4.0 11/05/2018 Pt Qyw1900 PT 29.8 seconds 08/17/2018 Pt Fwn9501 INR 2.8 08/17/2018 Pt Bse4899 Low Intensity - 1.5-2.0 08/17/2018 Pt Epa9564 Mod intensity - 2.0-3.0 08/17/2018 Pt Mct2111 Hi intensity - 3.0-4.0 08/17/2018 Pt Dhc2237 PT 27.7 seconds 05/18/2018 Pt Wcx2870 INR 2.6 05/18/2018 Pt Ose0032 Low Intensity - 1.5-2.0 05/18/2018 Pt Lot8575 Mod intensity - 2.0-3.0 05/18/2018 Pt Yyn2943 Hi intensity - 3.0-4.0 05/18/2018 Uric Acid [...] 30.9 pg 05/18/2018 Cbc With Differential Ord2 Lawrence% 13.8 % 05/18/2018 Cbc With Differential Ord2 [...] 1.94 K/ul 05/18/2018 Cbc With Differential Ord2 Lawrence ABS# 0.9 K/ul 05/18/2018 Cbc With Differential Ord2 Eos ABS# 0.4 K/ul 05/18/2018 Cbc With Differential Ord2 Baso ABS# 0.0 K/ul 05/18/2018 Random Urine Protein/Creatinine Ratio Owc7926 U Prot 7.0 mg/dl 05/18/2018 Random Urine Protein/Creatinine Ratio Dum1222 U CREAT 75.0 mg/dL 05/18/2018 Random Urine Protein/Creatinine Ratio Lek6224 R MTP/Creat Ratio 0.09 05/18/2018 Vitamin D 25 Oh Fam2497 VITAMIN D, 25 HYDROXY 27.40 ng/mL 05/18/2018 Tibc Ord40 Iron 68 ug/dl 05/18/2018 Tibc Ord40 UIBC 308 ug/dL 05/18/2018 Tibc Ord40 TIBC 376 ug/dL 05/18/2018 Tibc Ord40 Fe-%Sat 18.1 % 05/18/2018 Parathyroid Hormone Wav928 PTH 36.20 pg/ml 05/18/2018 Urinalysis Ord28 U-Color [...] hours from collection if refrigerated) 05/18/2018 Renal Geo308 NA 141 mEq/L 05/18/2018 Renal Fzu265 K 4.0 mEq/L 05/18/2018 Renal Hiw172 CL 107 mEq/L 05/18/2018 Renal Nmj106 CO2 27.0 mEq/L 05/18/2018 Renal Ycq936 ANION GAP 11 05/18/2018 Renal Ksq047 Osmo 282 mOsmo 05/18/2018 Renal Fcz497 GLUCOSE 83 mg/dL 05/18/2018 Renal Cfa550 BUN 18 mg/dL 05/18/2018 Renal Pbh720 Creat 1.4 mg/dL 05/18/2018 Renal Uoe156 eGFR 55 ml/min/1.73m2 05/18/2018 Renal Drh731 B/C Ratio 13.3 Ratio 05/18/2018 Renal Fky745 CALCIUM 9.0 mg/dL 05/18/2018 Renal Oqc195 PHOS 2.9 mg/dL 05/18/2018 Renal Les742 ALBUMIN 4.0 g/dL 05/18/2018 Ferritin Ord22 FERRITIN [...] Metabolic Ord15 CALCIUM 9.2 mg/dL 03/23/2018 Pt Cdz7077 PT 29.0 seconds 03/13/2018 Pt Hmx0185 INR 2.7 03/13/2018 Pt Pce9770 Low Intensity - 1.5-2.0 03/13/2018 Pt Tgp0892 Mod intensity - 2.0-3.0 03/13/2018 Pt Htd3852 Hi intensity - 3.0-4.0 03/13/2018 Pt Gku4045 PT 31.6 seconds 03/04/2018 Pt Yqb7223 INR 3.0 03/04/2018 Pt Yui7678 Low Intensity - 1.5-2.0 03/04/2018 Pt Hpm3757 Mod intensity - 2.0-3.0 03/04/2018 Pt Jai3907 Hi intensity - 3.0-4.0 03/04/2018 Pt Mpo8365 PT 33.3 seconds 01/29/2018 Pt Ecg3021 INR 3.2 01/29/2018 Pt Gdm5688 Low Intensity - 1.5-2.0 01/29/2018 Pt Plh6830 Mod intensity - 2.0-3.0 01/29/2018 Pt Czm5616 Hi intensity - 3.0-4.0 01/29/2018 Pt Axc7234 PT 26.1 seconds 01/21/2018 Pt Ofj9871 INR 2.4 01/21/2018 Pt Gsz1946 Low Intensity - 1.5-2.0 01/21/2018 Pt Asf5213 Mod intensity - 2.0-3.0 01/21/2018 Pt Oqp1366 Hi intensity - 3.0-4.0 01/21/2018 Pt Ywx0127 PT 35.7 seconds 01/09/2018 Pt Hzh3780 INR 3.5 01/09/2018 Pt Bvk1641 Low Intensity - 1.5-2.0 01/09/2018 Pt Fjh4467 Mod intensity - 2.0-3.0 01/09/2018 Pt Epu0837 Hi intensity - 3.0-4.0 01/09/2018 Pt Hmk8772 PT 23.8 seconds 12/04/2017 Pt Gsy6605 INR 2.1 12/04/2017 Pt Dst8989 Low Intensity - 1.5-2.0 12/04/2017 Pt Jmu0293 Mod intensity - 2.0-3.0 12/04/2017 Pt Fsk8571 Hi intensity - 3.0-4.0 12/04/2017 Pt Etb8716 PT 32.3 seconds 11/12/2017 Pt Uux3107 INR 3.1 11/12/2017 Pt Noz0364 Low Intensity - 1.5-2.0 11/12/2017 Pt Wbg0232 Mod intensity - 2.0-3.0 11/12/2017 Pt Pjw1058 Hi intensity - 3.0-4.0 11/12/2017 Urinalysis Ord28 [...] hours from collection if refrigerated) 10/20/2017 Pt Gzy8711 PT 16.6 seconds 10/20/2017 Pt Zrv4365 INR 1.4 10/20/2017 Pt Mcn8110 Low Intensity - 1.5-2.0 10/20/2017 Pt Ukr7850 Mod intensity - 2.0-3.0 10/20/2017 Pt Azu3584 Hi intensity - 3.0-4.0 10/20/2017 Renal Xyb133 NA 142 mEq/L 10/20/2017 Renal Gpn134 K 4.5 mEq/L 10/20/2017 Renal Xkx789 CL 107 mEq/L 10/20/2017 Renal Bwg064 CO2 28.0 mEq/L 10/20/2017 Renal Smh634 ANION GAP 12 10/20/2017 Renal Tye541 Osmo 288 mOsmo 10/20/2017 Renal Vht703 GLUCOSE 96 mg/dL 10/20/2017 Renal Gzk367 BUN 27 mg/dL 10/20/2017 Renal Xud310 Creat 1.6 mg/dL 10/20/2017 Renal Dhl130 eGFR 46 ml/min/1.73m2 10/20/2017 Renal Fwc495 B/C Ratio 17.2 Ratio 10/20/2017 Renal Zgf616 CALCIUM 9.4 mg/dL 10/20/2017 Renal Gcd524 PHOS 3.0 mg/dL 10/20/2017 Renal Xtt237 ALBUMIN 4.2 g/dL 10/20/2017 Pt Vjg8450 PT 31.2 seconds 10/17/2017 Pt Rdc3186 INR 3.0 10/17/2017 Pt Rdu1450 Low Intensity - 1.5-2.0 10/17/2017 Pt Psf4231 Mod intensity - 2.0-3.0 10/17/2017 Pt Hyk9223 Hi intensity - 3.0-4.0 10/17/2017 Comp Metabolic Iqi588 NA 139 mEq/L 05/08/2017 Comp Metabolic Dis554 K 4.1 mEq/L 05/08/2017 Comp Metabolic Cbx009 CL 103 mEq/L 05/08/2017 Comp Metabolic Lxi616 CO2 28.0 mEq/L 05/08/2017 Comp Metabolic Zfn565 ANION GAP 12 05/08/2017 Comp Metabolic Zro861 GLUCOSE 75 mg/dL 05/08/2017 Comp Metabolic Goz813 Creat 1.3 mg/dL 05/08/2017 Comp Metabolic Ebr715 eGFR 55 ml/min/1.73m2 05/08/2017 Comp Metabolic Ube395 BUN 20 mg/dL 05/08/2017 Comp Metabolic Elg325 B/C Ratio 14.9 Ratio 05/08/2017 Comp Metabolic Jvs509 CALCIUM 8.8 mg/dL 05/08/2017 Comp Metabolic Bxv711 ALK PHOS 51 U/L 05/08/2017 Comp Metabolic Ffo732 AST(SGOT) 30 U/L 05/08/2017 Comp Metabolic Iuy868 ALT(SGPT) 31 U/L 05/08/2017 Comp Metabolic Njf841 BILI T 0.9 mg/dL 05/08/2017 Comp Metabolic Alx937 ALBUMIN 4.0 g/dL 05/08/2017 Comp Metabolic Ukd916 TPRO 6.5 g/dL 05/08/2017 Comp Metabolic Bbu617 GLOB 2.6 g/dL 05/08/2017 Comp Metabolic Tnt828 A/G Ratio 1.5 Ratio 05/08/2017 Comp Metabolic Xie212 Osmo 279 mOsmo 05/08/2017 Cbc With Differential [...] 31.5 pg 05/08/2017 Cbc With Differential Ord2 Lawrence% 13.5 % 05/08/2017 Cbc With Differential Ord2 [...] 1.29 K/ul 05/08/2017 Cbc With Differential Ord2 Lawrence ABS# 1.1 K/ul 05/08/2017 Cbc With Differential Ord2 Eos ABS# 0.2 K/ul 05/08/2017 Cbc With Differential Ord2 Baso ABS# 0.0 K/ul 05/08/2017 Pt Nqv4124 PT 22.7 seconds 11/22/2016 Pt Fcn3900 INR 2.1 11/22/2016 Pt Wff4426 Low Intensity - 1.5-2.0 11/22/2016 Pt Lza0950 Mod intensity - 2.0-3.0 11/22/2016 Pt Qrz6237 Hi intensity - 3.0-4.0 11/22/2016 Pt Rhl2551 PT 24.4 seconds 10/25/2016 Pt Rnp9415 INR 2.3 10/25/2016 Pt Sgq1031 Low Intensity - 1.5-2.0 10/25/2016 Pt Wcj1165 Mod intensity - 2.0-3.0 10/25/2016 Pt Xme9275 Hi intensity - 3.0-4.0 10/25/2016 Pt Gss9936 PT 23.5 seconds 09/04/2016 Pt Bek7175 INR 2.2 09/04/2016 Pt Hmy0822 Low Intensity - 1.5-2.0 09/04/2016 Pt Dwd0098 Mod intensity - 2.0-3.0 09/04/2016 Pt Zzw0700 Hi intensity - 3.0-4.0 09/04/2016 Pt Sjf7577 PT 26.1 seconds 07/09/2016 Pt Zxj1859 INR 2.6 07/09/2016 Pt Zmk0405 Low Intensity - 1.5-2.0 07/09/2016 Pt Ewj6865 Mod intensity - 2.0-3.0 07/09/2016 Pt Cfb8960 Hi intensity - 3.0-4.0 07/09/2016 Pt Fis1703 PT 19.4 seconds 06/24/2016 Pt Bgw0345 INR 1.7 06/24/2016 Pt Bog7808 Low Intensity - 1.5-2.0 06/24/2016 Pt Igt3995 Mod intensity - 2.0-3.0 06/24/2016 Pt Qee9609 Hi intensity - 3.0-4.0 06/24/2016 Pt Sso4195 PT 28.9 seconds 04/26/2016 Pt Jwo3506 INR 2.9 04/26/2016 Pt Nfx1557 Low Intensity - 1.5-2.0 04/26/2016 Pt Vcy0407 Mod intensity - 2.0-3.0 04/26/2016 Pt Htc6766 Hi intensity - 3.0-4.0 04/26/2016 Tsh Ord6 hTSH II 1.21 uIU/mL 02/29/2016 Pt Tzg7306 PT 21.8 seconds 02/29/2016 Pt Owe0298 INR 2.0 02/29/2016 Pt Pmb4554 Low Intensity - 1.5-2.0 02/29/2016 Pt Xgq3539 Mod intensity - 2.0-3.0 02/29/2016 Pt Lus7676 Hi intensity - 3.0-4.0 02/29/2016 Lipid Ord30 [...] Ord2 RDW 16.2 % 06/30/2015 Comp Metabolic Hjw054 NA 138 mEq/L 06/30/2015 Comp Metabolic Czd846 K 4.8 mEq/L 06/30/2015 Comp Metabolic Atm873 CL 107 mEq/L 06/30/2015 Comp Metabolic Kgv754 CO2 27.0 mEq/L 06/30/2015 Comp Metabolic Znd178 ANION GAP 9 06/30/2015 Comp Metabolic Vtz133 GLUCOSE 98 mg/dL 06/30/2015 Comp Metabolic Vau710 Creat 1.8 mg/dL 06/30/2015 Comp Metabolic Xfn176 eGFR 40 ml/min/1.73m2 06/30/2015 Comp Metabolic Aar586 BUN 20 mg/dL 06/30/2015 Comp Metabolic Urz135 B/C Ratio 11.1 Ratio 06/30/2015 Comp Metabolic Gds764 CALCIUM 9.1 mg/dL 06/30/2015 Comp Metabolic Whn079 ALK PHOS 39 U/L 06/30/2015 Comp Metabolic Wyx326 AST(SGOT) 21 U/L 06/30/2015 Comp Metabolic Xlo415 ALT(SGPT) 23 U/L 06/30/2015 Comp Metabolic Htl998 BILI T 0.5 mg/dL 06/30/2015 Comp Metabolic Hqi290 ALBUMIN 4.0 g/dL 06/30/2015 Comp Metabolic Bcb240 TPRO 6.6 g/dL 06/30/2015 Comp Metabolic Qsw658 GLOB 2.6 g/dL 06/30/2015 Comp Metabolic Xyi484 A/G Ratio 1.5 Ratio 06/30/2015 Comp Metabolic Vsv931 Osmo 278 mOsmo 06/30/2015 Pt Pxg2123 PT 26.1 seconds 06/30/2015 Pt Fdv2437 INR 2.5 06/30/2015 Pt Bgx2612 Low Intensity - 1.5-2.0 06/30/2015 Pt Vtn6318 Mod intensity - 2.0-3.0 06/30/2015 Pt Awo9145 Hi intensity - 3.0-4.0 06/30/2015 Review of [...] Procedure Codes Date DESTRUCT PREMALG LESION CPT-4: 53359 04/29/2019 DESTRUCT PREMALG LESION CPT-4: 48537 12/31/2018 DESTRUCT PREMALG LES 2-14 CPT-4: 87816 12/31/2018 OCCULT BLOOD FECES CPT- 4: 27343 04/08/2018 PPPS, SUBSEQ VISIT CPT- 4: G0439 04/03/2018 PPPS, SUBSEQ VISIT CPT- 4: G0439 10/31/2017 PRESCRIP TRANSMIT VIA ERX SY CPT-4: G8553 09/22/2017 THER/PROPH/DIAG INJ SC/IM CPT-4: 46203 01/21/2017 TRIAMCINOLONE ACET INJ NOS CPT-4: J3301 01/21/2017 THER/PROPH/DIAG INJ SC/IM CPT-4: 90127 12/30/2016 ROCEPHIN, PER 250 MG CPT- 4: J0696 12/30/2016 PPPS, SUBSEQ VISIT CPT- 4: G0439 10/25/2016 ROCEPHIN, PER 250 MG CPT- 4: J0696 06/24/2016 THER/PROPH/DIAG INJ SC/IM CPT-4: 33572 06/24/2016 Vital Signs Date Vital 04/29/2019 Blood Pressure 1: 158/80 Code: 8480-6 BMI: 31.0 Code: 47414-0 Heart Rate 1: 58 bpm Height: 5'8" SpO2: 96% Weight: 204 lbs 12/31/2018 Blood Pressure 1: 140/80 Code: 8480-6 BMI: 29.0 Code: 40707-6 Heart Rate 1: 86 bpm Height: 5'8" SpO2: 97% Weight: 191 lbs 12/23/2018 Blood Pressure 1: 140/68 Code: 8480-6 BMI: 29.3 Code: 86902-6 Heart Rate 1: 70 bpm Height: 5'8" SpO2: 97% Weight: 193 lbs 04/03/2018 Blood Pressure 1: 128/72 Code: 8480-6 BMI: 29.8 Code: 39367-0 Heart Rate 1: 60 bpm Height: 5'8" SpO2: 96% Weight: 196 lbs 03/31/2018 Blood Pressure 1: 128/76 Code: 8480-6 BMI: 29.8 Code: 63601-4 Heart Rate 1: 56 bpm Height: 5'8" SpO2: 98% Weight: 196 lbs 11/26/2017 Blood Pressure 1: 156/76 Code: 8480-6 BMI: 29.6 Code: 13538-7 Heart Rate 1: 57 bpm Height: 5'8" SpO2: 98% Weight: 195 lbs 10/31/2017 Blood Pressure 1: 136/74 Code: 8480-6 BMI: 29.5 Code: 21529-6 Heart Rate 1: 56 bpm Height: 5'8" SpO2: 95% Waist Measure (cm): 91 cm Weight: 194 lbs 10/07/2017 Blood Pressure 1: 136/72 Code: 8480-6 BMI: 30.3 Code: 04599-8 Heart Rate 1: 58 bpm Height: 5'8" SpO2: 96% Weight: 199 lbs 09/22/2017 Blood Pressure 1: 138/78 Code: 8480-6 BMI: 30.4 Code: 27308-3 Heart Rate 1: 60 bpm Height: 5'8" SpO2: 98% Temperature: 36.6 (C) / 97.9 (F) Weight: 200 lbs 05/08/2017 Blood Pressure 1: 128/80 Code: 8480-6 BMI: 30.0 Code: 34008-3 Heart Rate 1: 75 bpm Height: 5'8" SpO2: 98% Weight: 197 lbs 03/25/2017 Blood Pressure 1: 150/80 Code: 8480-6 BMI: 30.1 Code: 76339-1 Heart Rate 1: 53 bpm Height: 5'8" SpO2: 98% Weight: 198 lbs 01/21/2017 Blood Pressure 1: 156/88 Code: 8480-6 BMI: 29.8 Code: 30863-8 Heart Rate 1: 95 bpm Height: 5'8" SpO2: 98% Temperature: 36.9 (C) / 98.4 (F) Weight: 196 lbs 12/30/2016 Blood Pressure 1: 122/74 Code: 8480-6 BMI: 29.8 Code: 75909-4 Heart Rate 1: 60 bpm Height: 5'8" SpO2: 96% Temperature: 37.1 (C) / 98.8 (F) Weight: 196 lbs 12/26/2016 Blood Pressure 1: 142/74 Code: 8480-6 BMI: 29.8 Code: 27063-0 Heart Rate 1: 58 bpm Height: 5'8" SpO2: 96% Temperature: 36.7 (C) / 98.0 (F) Weight: 196 lbs 12/02/2016 Blood Pressure 1: 128/78 Code: 8480-6 BMI: 30.3 Code: 77797-1 Heart Rate 1: 49 bpm Height: 5'8" SpO2: 98% Temperature: 36.5 (C) / 97.7 (F) Weight: 199 lbs 11/21/2016 Blood Pressure 1: 130/68 Code: 8480-6 BMI: 30.3 Code: 16831-7 Heart Rate 1: 54 bpm Height: 5'8" SpO2: 98% Weight: 199 lbs 10/25/2016 Blood Pressure 1: 150/92 Code: 8480-6 BMI: 29.8 Code: 19347-1 Heart Rate 1: 54 bpm Height: 5'8" SpO2: 97% Waist Measure (cm): 97 cm Weight: 196 lbs 10/23/2016 Blood Pressure 1: 150/92 Code: 8480-6 BMI: 29.9 Code: 40254-8 Heart Rate 1: 54 bpm Height: 5'8" SpO2: 98% Weight: 196 lbs 8 oz 07/29/2016 Blood Pressure 1: 144/72 Code: 8480-6 BMI: 30.3 Code: 47288-6 Heart Rate 1: 54 bpm Height: 5'8" SpO2: 98% Weight: 199 lbs 06/24/2016 Blood Pressure 1: 132/78 Code: 8480-6 BMI: 29.5 Code: 67731-8 Heart Rate 1: 59 bpm Height: 5'8" SpO2: 94% Weight: 194 lbs 02/21/2016 Blood Pressure 1: 138/84 Code: 8480-6 BMI: 30.3 Code: 56899-5 Heart Rate 1: 64 bpm Height: 5'8" SpO2: 95% Weight: 199 lbs 10/18/2015 Blood Pressure 1: 154/84 Code: 8480-6 Blood Pressure 1: 138/72 Code: 8480-6 BMI: 30.4 Code: 31257-5 Heart Rate 1: 68 bpm Height: 5'8" SpO2: 97% Weight: 200 lbs 05/02/2015 Blood Pressure 1: 114/64 Code: 8480-6 BMI: 29.0 Code: 17701-1 Heart Rate 1: 62 bpm Height: 5'8" [...] data Encounters Encounter Performer Location Codes Date EST. PATIENT, LEVEL II Diagnosis: Squamous cell carcinoma of skin of right lower limb, including hip[ICD10: C44.722] Leidy Husain MD, [facility] CPT-4: 32281 04/29/2019 [id number] EST. PATIENT, LEVEL III Diagnosis: Diverticulitis of small intestine with perforation and abscess without bleeding[ICD10: K57.00] [facility] CPT-4: 41325 12/23/2018 [id number]) [id number] EST. PATIENT, LEVEL III Diagnosis: Low back pain[ICD10: M54.5] Diagnosis: Muscle spasm of back[ICD10: M62.830] [facility] CPT-4: 40986 03/31/2018 ([id number]) 86137 EST. PATIENT, LEVEL III Diagnosis: Actinic keratosis[ICD10: L57.0] Diagnosis: Other hypertrophic disorders of the skin[ICD10: L91.8] Amanda Husain MD, [facility] CPT-4: 09654 11/26/2017 ([id number]) 46474 EST. PATIENT, LEVEL IV Diagnosis: Essential (primary) hypertension[ICD10: I10] Diagnosis: Mild cognitive impairment, so stated[ICD10: G31.84] Amanda Husain MD [facility] CPT-4: 65180 10/07/2017 ([id number]) 01744 EST. PATIENT, LEVEL III Diagnosis: Pneumonia due to other streptococci[ICD10: J15.4] Diagnosis: Cough[ICD10: R05] Amanda Husain MD, [facility] CPT-4: 14028 09/22/2017 [id number] EST. PATIENT, LEVEL IV Diagnosis: Left lower quadrant pain[ICD10: R10.32] Diagnosis: Other fatigue[ICD10: R53.83] Gabrielle Husain MD, [facility] CPT-4: 59693 05/08/2017 ([id number]) 10467 EST. PATIENT, LEVEL III Diagnosis: Essential (primary) hypertension[ICD10: I10] Amanda Husain MD [facility] CPT-4: 51994 03/25/2017 ([id number]) 56232 EST. PATIENT, LEVEL III Diagnosis: Cough[ICD10: R05] Diagnosis: Allergic rhinitis due to pollen[ICD10: J30.1] Leidy Husain MD [facility] CPT-4: 92233 01/21/2017 [id number] EST. PATIENT, LEVEL III Diagnosis: Other allergic rhinitis[ICD10: J30.89] Diagnosis: Cough[ICD10: R05] Gabrielle Husain MD, [facility] CPT-4: 63130 12/30/2016 ([id number]) 72844 EST. PATIENT, LEVEL III Diagnosis: Cough[ICD10: R05] Diagnosis: Pneumonia, unspecified organism[ICD10: J18.9] Leidy Husain MD, [facility] CPT-4: 04869 12/26/2016 ([id number]) 17617 EST. PATIENT, LEVEL III Diagnosis: Pneumonia due to other streptococci[ICD10: J15.4] Diagnosis: Cough[ICD10: R05] Amanda Husain MD, [facility] CPT-4: 86276 12/02/2016 ([id number]) 52190 EST. PATIENT, LEVEL III Diagnosis: Essential (primary) hypertension[ICD10: I10] Amanda Husain MD [facility] CPT-4: 31526 11/21/2016 ([id number]) 61360 EST. PATIENT, LEVEL IV Diagnosis: Essential (primary) hypertension[ICD10: I10] Diagnosis: Mixed hyperlipidemia[ICD10: E78.2] Amanda Husain MD, [facility] CPT- 4: 50918 10/23/2016 07458 EST. PATIENT, LEVEL IV Diagnosis: Other allergic rhinitis[ICD10: J30.89] Diagnosis: Cough[ICD10: R05] Gabrielle Husain MD, [facility] CPT-4: 19018 07/29/2016 ([id number]) Miscellaneous no charge Diagnosis: Pneumonia, unspecified organism[ICD10: J18.9] Gabrielle Husain MD, [facility] CPT-4: 39143 06/27/2016 ([id number]) 39287 EST. PATIENT, LEVEL IV Diagnosis: Essential (primary) hypertension[ICD10: I10] Diagnosis: Pneumonia, unspecified organism[ICD10: J18.9] Diagnosis: Cough[ICD10: R05] Diagnosis: Mixed hyperlipidemia[ICD10: E78.2] Amanda Husain MD, [facility] CPT- 4: 83941 06/24/2016 ([id number]) 85256 EST. PATIENT, LEVEL IV Diagnosis: Mixed hyperlipidemia[ICD10: E78.2] Diagnosis: Essential (primary) hypertension[ICD10: I10] Diagnosis: Gastro-esophageal reflux disease without esophagitis[ICD10: K21.9] Amanda Husain MD, [facility] CPT-4: 58754 02/21/2016 ([id number]) 70079 EST. PATIENT, LEVEL IV Diagnosis: Essential (primary) hypertension[ICD10: I10] Diagnosis: Mixed hyperlipidemia[ICD10: E78.2] Diagnosis: Chronic lymphocytic 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[ICD10: C91.10] [facility] CPT-4: 49410 10/18/2015 ([id number]) OFFICE VISIT, NEW - LEVEL 3 Diagnosis: Diverticulitis[ICD9: 562.11] [facility] CPT-4: 03169 05/02/2015 Plan of Care Planned Activity Notes Codes Status Date Visit Plan: Nonhealing skin lesion -right lower leg -refer to Dr Andrade for biopsy/removal AK-cryotherapy - three cryotherapy on each lesion, dressed with neosporin and monitor lesions. 04/29/2019 Appointment: Leidy Angulo WPtel: [phone] [place] (30 min) Complex 04/29/2019 Patient Education: Patient Medication Summary Completed 04/29/2019 Visit Plan: Actinic Keratosis - treated with cryotherapy x 3, pt advised on how to appropriately care for the lesion. Call if not improved after thorough healing - apply neosporin to skin lesions. 12/31/2018 Appointment: Amanda Husain WPtel: [facility]5 [facility] (30 min) Complex 12/31/2018 Patient Education: Patient Medication Summary Completed 12/31/2018 Visit Plan: Diverticulitis - rx for antibiotic sent to pt's pharmacy - pt advised to avoid seeds, nuts, popcorn, or any other food which has been proven to upset the pt's stomach. 12/23/2018 Appointment: Gabrielle Corona WPtel: [address] [place], [place] [phone] [place] (15 min) Moderate 12/23/2018 Patient Education: Patient Medication Summary Completed 12/23/2018 Appointment: Gabrielle Corona WPtel: [phone] [facility] [place] (30 min) Complex 12/16/2018 Appointment: Lab Draw [...] not improve. 03/31/2018 Appointment: Leidy Angulo WPtel: [phone] [facility] [place] [address] (15 min) Moderate 03/31/2018 Patient Education: Patient Medication Summary Completed 03/31/2018 Visit Plan: Wound Instructions - Pt was instructed to keep the wound clean, wash with antibacterial soap, use triple antibiotic ointment, call if redness, pustular drainage, or any other acute concerns. 11/26/2017 Appointment: Amanda Husain WPtel: [phone] [phone] Surgical Procedure 11/26/2017 Patient Education: Patient Medication [...] surrogate. 10/31/2017 Appointment: Leidy Angulo WPtel: [phone] [phone] [facility] - Annual Wellness Visit 10/31/2017 Patient [...] loss. 10/07/2017 Appointment: Amanda Husain WPtel: [phone] [facility] (30 min) Complex 10/07/2017 Patient Education: Patient Medication Summary Completed 10/07/2017 Patient Education: Obesity Completed 10/07/2017 Patient Education: Hypertension Completed 10/07/2017 Visit Plan: Pneumonia - Pt has been diagnosed with pneumonia by physical exam. Antibiotics have been ordered. The pt is aware of the diagnosis and the need for acute treatment of this illness. 09/22/2017 [facility]ment: [phone] (15 min) Moderate 09/22/2017 Patient Education: [...] or concerns. 05/08/2017 Appointment: Gabrielle Corona WPtel: [phone] [phone] (30 min) Complex 05/08/2017 Patient Education: Patient [...] daily. 03/25/2017 Appointment: Amanda Husain WPtel: [phone] [facility] [place] (15 min) Moderate 03/25/2017 Patient Education: Patient Medication Summary Completed 03/25/2017 Appointment: Leidy Angulo WPtel: [facility] [address] [place] (15 min) Moderate 01/31/2017 Visit Plan: URI/Allergies - Pt advised to increase fluids, vitamin C. Discussed natural and expected course of this diagnosis and need to alert me if symptoms do not follow expected course, or if any worse. RX sent to patient's pharmacy. 01/21/2017 Appointment: Leidy Angulo WPtel: [phone] [phone] [place] (15 min) Moderate 01/21/2017 Patient Education: [...] medication. 12/30/2016 Appointment: Leidy Angulo WPtel: [phone] [phone] [place] (15 min) Moderate 12/30/2016 Appointment: [facility] Corona [phone] (30 min) Complex 12/30/2016 Patient Education: Patient [...] the levaquin. 12/26/2016 Appointment: Le[facility] Angulo [facility]Ptel: [phone] [place] (15 min) Moderate 12/26/2016 Patient Education: [...] home. 11/21/2016 Appointment: [phone] [place] (15 min) Moderate 11/21/2016 Patient [...] care surrogate. 10/25/2016 Appointment: Leidy Angulo WPtel: [phone] [phone] [facility] - Annual Wellness Visit 10/25/2016 Patient [...] to medications. 10/23/2016 Appointment: [phone] (15 min) Moderate 10/23/2016 Patient Education: [...] concerns. 07/29/2016 Appointment: Gabrielle Corona [facility]Ptel: [phone] [place] (15 min) Moderate 07/29/2016 Patient Education: Patient [...] to medications. 06/24/2016 Appointment: Amanda Husain WPtel: [phone] [facility] (15 min) Moderate 06/24/2016 Patient Education: Patient [...] not improving. 02/21/2016 Appointment: Amanda Husain WPtel: [phone] [facility] (15 min) Moderate 02/21/2016 Patient Education: Patient [...] Care Plan: COMPLETE CBC AUTOMATED LOINC : 53607-7 Ordered 05/02/2015 Care Plan: ASSAY OF TROPONIN QUANT Ordered 05/02/2015 Care Plan: ASSAY OF CK (CPK) Ordered 05/02/2015 Instructions Comment . Diverticulitis - rx for antibiotic sent to pt's pharmacy - pt advised to avoid seeds, nuts, popcorn, or any other food which has been proven to upset the pt's stomach. If pain worsens pt is to go to the ER. Check labs today. Will check cardiac enzymes as well. Come back Friday to recheck PT/INR . Hypertension - well controlled - continue [...] are not controlled with the medication. . Nonhealing skin lesion -right lower leg -refer to Dr Andrade for biopsy/removal AK-cryotherapy - three cryotherapy on each lesion, dressed with neosporin and monitor lesions. . Low back pain- recommend rest, tiger balm as directed and stretches. Discussed imaging vs physical therapy if symptoms persist. The patient is to call the office if the pain is worsening or does not improve. HOLD AMIODARONE X 7 DAYS LEVAQUIN 500MG [...] DOPA paperwork for health care surrogate. . Pneumonia - Pt has been diagnosed with pneumonia by physical exam. Antibiotics have been ordered. The pt is aware of the diagnosis and the need for acute treatment of this illness. change metoprolol to 25mg twice daily. . [...] healing - apply neosporin to skin lesions. [employer] or [employer] - take three times daily x 7 days get a PT/INR check on of this week . Pneumonia - Pt has been diagnosed with pneumonia by physical exam. Antibiotics ordered, pt advised on starting a probiotic, and to have his inr checked on of this week. The pt is aware of the diagnosis and the need for acute treatment of this illness. kenalog injection zyrtec 10mg daily call if [...] to assure normal liver response to medications. please go home and confirm that the [...] change in blood pressure readings at home. . Wound Instructions - Pt was instructed to keep the wound clean, wash with antibacterial soap, use triple antibiotic ointment, call if redness, pustular drainage, or any other acute concerns.
--- OUTSIDE RECORDS SUMMARY | 2019-05-19 10:27 | XMS REPORT | CCD ---
Author Author Amanda Celestin MD, [facility] Address [address] [place] [address] Phone Care Team Providers Care Professor Of Communication Arts Name Role Phone PP Unavailable CCM Unavailable Summary Purpose Interface Exchange Insurance Providers Payer name Policy type / Coverage type Covered green party ID Effective Begin Date Effective End Date WPS Medicare Part B [id number] 2019 Unknown [employer] Life Insurance [id number] Unknown Family history Brother Diagnosis Age At [...] Unknown Retired 05/02/[address]: 6902464 Former smoker Quit in 1966 05/02/2015 Number [...] Instructions Zithromax Z-Carlo 250 mg tablet RxNorm: 497303 2 Tablet(s) PO on 1 st day then 1 daily x 4 days ZPACK X 1 01/15/2019 04/28/2019 Inactive metronidazole 500 mg tablet RxNorm: 398485 1 Tablet(s) PO TID 12/23/2018 01/01/2019 Inactive omeprazole 20 mg capsule,delayed release RxNorm: 409667 TAKE 1 CAPSULE BY MOUTH ONCE DAILY 12/07/2018 No Stop Date Active metoprolol tartrate 25 mg tablet RxNorm: 448984 Tablet(s) TAKE 1 TABLET BY MOUTH TWICE DAILY 10/16/2018 No Stop Date Active metoprolol tartrate 25 mg tablet RxNorm: 812907 TAKE 1 TABLET BY MOUTH TWICE DAILY 07/13/2018 10/15/2018 Inactive Trilipix 135 mg capsule,delayed release RxNorm: 313491 1 Capsule(s) PO daily 06/17/2018 10/14/2018 Inactive ramipril 10 mg capsule RxNorm: 272522 TAKE ONE CAPSULE BY MOUTH ONCE DAILY 06/15/2018 No Stop Date Active omeprazole 20 mg capsule,delayed release RxNorm: 877666 Capsule(s) TAKE ONE CAPSULE BY MOUTH ONCE DAILY 06/03/2018 04/28/2019 Inactive omeprazole 20 mg capsule,delayed release RxNorm: 045769 Capsule(s) TAKE ONE CAPSULE BY MOUTH ONCE DAILY 06/02/2018 06/02/2018 Inactive metoprolol tartrate 25 mg tablet RxNorm: 083087 TAKE ONE TABLET BY MOUTH TWICE DAILY 02/16/2018 07/12/2018 Inactive omeprazole 20 mg capsule,delayed release RxNorm: 695886 TAKE ONE CAPSULE BY MOUTH ONCE DAILY 01/05/2018 06/01/2018 Inactive metoprolol tartrate 25 mg tablet RxNorm: 107610 TAKE ONE TABLET BY MOUTH TWICE DAILY 10/27/2017 02/15/2018 Inactive azithromycin 250 mg tablet RxNorm: 810785 1 Tablet(s) PO UD 2 tabs on day #1, then 1 pill daily x 4 days 09/22/2017 11/25/2017 Inactive omeprazole 20 mg capsule,delayed release RxNorm: 705441 TAKE ONE CAPSULE BY MOUTH ONCE DAILY 06/16/2017 12/12/2017 Inactive metronidazole 500 mg tablet RxNorm: 991418 1 Tablet(s) PO TID 05/08/2017 05/14/2017 Inactive ramipril 10 mg capsule RxNorm: 960558 1 Capsule(s) PO daily 03/25/2017 03/19/2018 Inactive Kenalog 40 mg/mL suspension for injection RxNorm: 7118905 Milliliter(s) Inj 01/21/2017 01/21/2017 Inactive ceftriaxone 500 mg solution for injection RxNorm: 6543135 Inj 12/30/2016 12/30/2016 Inactive Levaquin 500 mg tablet RxNorm: 992814 1 Tablet(s) PO daily 12/26/2016 01/01/2017 Inactive Tessalon Perles 100 mg capsule RxNorm: 932252 1 Capsule(s) PO TID as needed 12/26/2016 01/04/2017 Inactive prednisone 20 mg tablet RxNorm: 821241 1 Tablet(s) PO BID 12/26/2016 12/30/2016 Inactive Phenergan with Codeine Syrup RxNorm: 5-10 Milliliter(s) PO Q6 PRN 12/26/2016 04/28/2019 Inactive omeprazole 20 mg capsule,delayed release RxNorm: 580945 TAKE ONE CAPSULE BY MOUTH ONCE DAILY 12/16/2016 06/13/2017 Inactive cefdinir 300 mg capsule RxNorm: 028551 1 Capsule(s) PO BID 12/02/2016 12/08/2016 Inactive azithromycin 250 mg tablet RxNorm: 025969 Tablet(s) 2 tabs on day #1, then one tab PO daily x 4 more days 12/02/2016 12/25/2016 Inactive metoprolol tartrate 25 mg tablet RxNorm: 572241 1 Tablet(s) PO BID 10/23/2016 10/22/2016 Inactive metoprolol tartrate 25 mg tablet RxNorm: 131570 1 Tablet(s) PO BID 10/23/2016 04/28/2019 Inactive ceftriaxone 500 mg solution for injection RxNorm: 4254243 Inj 06/24/2016 06/24/2016 Inactive cefdinir 300 mg capsule RxNorm: 570308 1 Capsule(s) PO BID 06/24/2016 06/30/2016 Inactive omeprazole 20 mg capsule,delayed release RxNorm: 596935 TAKE ONE CAPSULE BY MOUTH DAILY 06/07/2016 12/03/2016 Inactive omeprazole 20 mg capsule,delayed release RxNorm: 738780 TAKE ONE CAPSULE BY MOUTH DAILY 01/29/2016 05/27/2016 Inactive metoprolol tartrate 50 mg tablet RxNorm: 100418 Tablet(s) TAKE ONE TABLET BY MOUTH DAILY 10/11/2015 10/10/2015 Inactive metoprolol tartrate 50 mg tablet RxNorm: 253062 TAKE ONE TABLET BY MOUTH DAILY 10/11/2015 10/22/2016 Inactive omeprazole 20 mg capsule,delayed release RxNorm: 710384 TAKE ONE CAPSULE BY MOUTH DAILY 08/28/2015 01/24/2016 Inactive metoprolol tartrate 50 mg tablet RxNorm: 475748 TAKE ONE TABLET BY MOUTH DAILY 08/11/2015 10/09/2015 Inactive metoprolol tartrate 50 mg tablet RxNorm: 798969 1 Tablet(s) PO daily 06/14/2015 08/10/2015 Inactive omeprazole 20 mg capsule,delayed release RxNorm: 901284 1 Capsule(s) PO daily 05/29/2015 05/28/2015 Inactive omeprazole 20 mg capsule,delayed release RxNorm: 073594 1 Capsule(s) PO daily 05/29/2015 04/28/2019 Inactive metronidazole 500 mg tablet RxNorm: 553101 1 Tablet(s) PO TID 05/02/2015 05/08/2015 Inactive finasteride 5 mg tablet RxNorm: 434315 1 Tablet(s) PO daily No Start Date Active warfarin 5 mg tablet RxNorm: 764871 1 Tablet(s) PO daily No Start Date Active Aspirin Childrens 81 mg chewable tablet RxNorm: 232385 1 Tablet(s) PO daily No Start Date Active amiodarone 200 mg tablet RxNorm: 336362 1 Tablet(s) PO daily No Start Date Active vitamin E (dl, acetate) 1,000 unit capsule RxNorm: 076657 1 Capsule(s) PO daily No Start Date Active atorvastatin 80 mg tablet RxNorm: 906548 1 Tablet(s) PO daily No Start Date Active Fish Oil 120 mg-180 mg capsule RxNorm: 062203 1 Capsule(s) PO BID No Start Date 10/30/2017 Inactive metoprolol tartrate 50 mg tablet RxNorm: 920638 1 Tablet(s) PO daily No Start Date 06/13/2015 Inactive Zetia 10 mg tablet RxNorm: 562519 1 Tablet(s) PO daily No Start Date 10/17/2015 Inactive ramipril 5 mg capsule RxNorm: 945216 1 Capsule(s) PO daily No Start Date 03/24/2017 Inactive Tessalon Perles 100 mg capsule RxNorm: 521937 1 Capsule(s) PO TID as needed No Start Date 12/25/2016 Inactive omeprazole 20 mg capsule,delayed release RxNorm: 800720 1 Capsule(s) PO daily No Start Date 05/28/2015 Inactive Zithromax Z-Carlo 250 mg tablet RxNorm: 874100 2 Tablet(s) PO on 1 st day then 1 daily x 4 days ZPACK X 1 No Start Date 01/14/2019 Inactive Trilipix 135 mg capsule,delayed release RxNorm: 862844 1 Capsule(s) PO daily No Start Date 06/16/2018 Inactive Centrum Silver tablet RxNorm: 1 Tablet(s) PO daily No Start Date 10/30/2017 Inactive Medication Administered Medication Codes Instructions Start Date Status Kenalog 40 mg/mL suspension for injection RxNorm: 8956509 Milliliter 01/21/2017 No longer Active ceftriaxone 500 mg solution for injection RxNorm: 6194424 12/30/2016 No longer Active ceftriaxone 500 mg solution for injection RxNorm: 0552932 06/24/2016 No longer Active Immunizations Vaccine Codes [...] Code Item Item Code Result Date Pt Edc9772 PT 32.1 seconds 04/30/2019 Pt Qrz7895 INR 3.2 04/30/2019 Pt Nsp9978 Low Intensity - 1.5-2.0 04/30/2019 Pt Djs6734 Mod intensity - 2.0-3.0 04/30/2019 Pt Rzv1686 Hi intensity - 3.0-4.0 04/30/2019 Metabolic Ord15 [...] Metabolic Ord15 CALCIUM 9.0 mg/dL 04/19/2019 Pt Kkg3830 PT 32.2 seconds 04/15/2019 Pt Vlw4591 INR 3.2 04/15/2019 Pt Xrx5866 Low Intensity - 1.5-2.0 04/15/2019 Pt Itb3989 Mod intensity - 2.0-3.0 04/15/2019 Pt Krd1414 Hi intensity - 3.0-4.0 04/15/2019 Pt Abe3985 PT 20.2 seconds 03/19/2019 Pt Xux3808 INR 1.8 03/19/2019 Pt Kep5079 Low Intensity - 1.5-2.0 03/19/2019 Pt Wfa1052 Mod intensity - 2.0-3.0 03/19/2019 Pt Ast3348 Hi intensity - 3.0-4.0 03/19/2019 Pt Ffu2762 PT 29.7 seconds 03/03/2019 Pt Zfw1004 INR 2.9 03/03/2019 Pt Smi6582 Low Intensity - 1.5-2.0 03/03/2019 Pt Ouq2992 Mod intensity - 2.0-3.0 03/03/2019 Pt Zme3666 Hi intensity - 3.0-4.0 03/03/2019 Pt Cak9048 PT 27.9 seconds 02/24/2019 Pt Hjd4873 INR 2.7 02/24/2019 Pt Gat2551 Low Intensity - 1.5-2.0 02/24/2019 Pt Knd6085 Mod intensity - 2.0-3.0 02/24/2019 Pt Uup1623 Hi intensity - 3.0-4.0 02/24/2019 Pt Fgw0050 PT 16.6 seconds 02/15/2019 Pt Ngs6398 INR 1.4 02/15/2019 Pt Vui5969 Low Intensity - 1.5-2.0 02/15/2019 Pt Yra2690 Mod intensity - 2.0-3.0 02/15/2019 Pt Vsf2893 Hi intensity - 3.0-4.0 02/15/2019 Pt Wns8591 PT 16.6 seconds 02/05/2019 Pt Ifu4290 INR 1.4 02/05/2019 Pt Eya1311 Low Intensity - 1.5-2.0 02/05/2019 Pt Owz7478 Mod intensity - 2.0-3.0 02/05/2019 Pt Mwt4386 Hi intensity - 3.0-4.0 02/05/2019 Pt Lox5926 PT 39.6 seconds 02/01/2019 Pt Lxy7150 INR 4.1 02/01/2019 Pt Lpz1998 Low Intensity - 1.5-2.0 02/01/2019 Pt Mep6972 Mod intensity - 2.0-3.0 02/01/2019 Pt Ogj1140 Hi intensity - 3.0-4.0 02/01/2019 Pt Mqv3992 PT 31.9 seconds 01/20/2019 Pt Cxq7409 INR 3.1 01/20/2019 Pt Lzf8311 Low Intensity - 1.5-2.0 01/20/2019 Pt Waw5126 Mod intensity - 2.0-3.0 01/20/2019 Pt Liq8166 Hi intensity - 3.0-4.0 01/20/2019 Pt Vte9977 PT 21.0 seconds 01/12/2019 Pt Fpw4092 INR 1.9 01/12/2019 Pt Eaz0905 Low Intensity - 1.5-2.0 01/12/2019 Pt Vvt3004 Mod intensity - 2.0-3.0 01/12/2019 Pt Xru6508 Hi intensity - 3.0-4.0 01/12/2019 Pt Jkv3813 PT 31.8 seconds 01/07/2019 Pt Kav2938 INR 3.1 01/07/2019 Pt Hpi0351 Low Intensity - 1.5-2.0 01/07/2019 Pt Abr4957 Mod intensity - 2.0-3.0 01/07/2019 Pt Obp4591 Hi intensity - 3.0-4.0 01/07/2019 Pt Ptq2002 PT 48.2 seconds 01/05/2019 Pt Ukc2571 INR 5.2 01/05/2019 Pt Dkv9343 Low Intensity - 1.5-2.0 01/05/2019 Pt Peb0627 Mod intensity - 2.0-3.0 01/05/2019 Pt Lxl5854 Hi intensity - 3.0-4.0 01/05/2019 Pt Zkx1122 PT 17.6 seconds 12/25/2018 Pt Cgg2510 INR 1.5 12/25/2018 Pt Yxc1367 Low Intensity - 1.5-2.0 12/25/2018 Pt Vtw3186 Mod intensity - 2.0-3.0 12/25/2018 Pt Hsr5766 Hi intensity - 3.0-4.0 12/25/2018 Cbc With [...] 30.0 pg 12/10/2018 Cbc With Differential Ord2 Dukes% 10.5 % 12/10/2018 Cbc With Differential Ord2 MCHC 32.6 pg 12/10/2018 Cbc With Differential Ord2 Eos% 5.2 % 12/10/2018 Cbc With Differential Ord2 Baso% 0.3 % 12/10/2018 Cbc With Differential Ord2 PLT 281 K/ul 12/10/2018 Cbc With Differential Ord2 RDW 14.4 % 12/10/2018 Cbc With Differential Ord2 Neut ABS# 4.34 K/ul 12/10/2018 Cbc With Differential Ord2 Lymph ABS# 2.09 K/ul 12/10/2018 Cbc With Differential Ord2 Dukes ABS# 0.8 K/ul 12/10/2018 Cbc With Differential Ord2 Eos ABS# 0.4 K/ul 12/10/2018 Cbc With Differential Ord2 Baso ABS# 0.0 K/ul 12/10/2018 Uric Acid Ord77 Uric A 4.6 mg/dL 12/10/2018 Random Urine Protein/Creatinine Ratio Slz9650 U Prot 9.0 mg/dl 12/10/2018 Random Urine Protein/Creatinine Ratio Aae4070 U CREAT 126.0 mg/dL 12/10/2018 Random Urine Protein/Creatinine Ratio Fla1147 R MTP/Creat Ratio 0.07 12/10/2018 Ferritin Ord22 FERRITIN 47.9 ng/mL 12/10/2018 Renal Vys719 NA 142 mEq/L 12/10/2018 Renal Uhj781 K 4.3 mEq/L 12/10/2018 Renal Sqd259 CL 106 mEq/L 12/10/2018 Renal Xdn919 CO2 30.0 mEq/L 12/10/2018 Renal Hpv559 ANION GAP 10 12/10/2018 Renal Gsj169 Osmo 286 mOsmo 12/10/2018 Renal Gcj281 GLUCOSE 105 mg/dL 12/10/2018 Renal Kgi199 BUN 20 mg/dL 12/10/2018 Renal Nvs433 Creat 1.4 mg/dL 12/10/2018 Renal Yqm554 eGFR 52 ml/min/1.73m2 12/10/2018 Renal Hbk291 B/C Ratio 14.1 Ratio 12/10/2018 Renal Gqb677 CALCIUM 9.7 mg/dL 12/10/2018 Renal Ysa604 PHOS 3.3 mg/dL 12/10/2018 Renal Uvg314 ALBUMIN 4.0 g/dL 12/10/2018 Urinalysis Ord28 U-Color [...] U-VOL VOLUME SUFFICIENT (10mL) 12/10/2018 Urinalysis Ord28 U-Com Urine saved if culture needed (specimen acceptable for 48 hours from collection if refrigerated) 12/10/2018 Urinalysis Ord28 U-Yeast NEGATIVE 12/10/2018 Tibc Ord40 Iron 69 ug/dl 12/10/2018 Tibc Ord40 UIBC 318 ug/dL 12/10/2018 Tibc Ord40 TIBC 387 ug/dL 12/10/2018 Tibc Ord40 Fe-%Sat 17.8 % 12/10/2018 Vitamin D 25 Oh Avq8941 VITAMIN D, 25 HYDROXY 27.29 ng/mL 12/10/2018 Pt Ovg6941 PT 23.1 seconds 11/05/2018 Pt Hws6424 INR 2.1 11/05/2018 Pt Bct2168 Low Intensity - 1.5-2.0 11/05/2018 Pt Moq6967 Mod intensity - 2.0-3.0 11/05/2018 Pt Bzn2526 Hi intensity - 3.0-4.0 11/05/2018 Pt Gcp5238 PT 29.8 seconds 08/17/2018 Pt Lzi1379 INR 2.8 08/17/2018 Pt Bqf3206 Low Intensity - 1.5-2.0 08/17/2018 Pt Oem2353 Mod intensity - 2.0-3.0 08/17/2018 Pt Rme1992 Hi intensity - 3.0-4.0 08/17/2018 Pt Rqb5231 PT 27.7 seconds 05/18/2018 Pt Kyv3886 INR 2.6 05/18/2018 Pt Gdv6277 Low Intensity - 1.5-2.0 05/18/2018 Pt Bgt9316 Mod intensity - 2.0-3.0 05/18/2018 Pt Gqk7602 Hi intensity - 3.0-4.0 05/18/2018 Uric Acid [...] 30.9 pg 05/18/2018 Cbc With Differential Ord2 Dukes% 13.8 % 05/18/2018 Cbc With Differential Ord2 Eos% 6.8 % 05/18/2018 Cbc With Differential Ord2 MCHC 33.7 pg 05/18/2018 Cbc With Differential Ord2 Baso% 0.2 % 05/18/2018 Cbc With Differential Ord2 PLT 227 K/ul 05/18/2018 Cbc With Differential Ord2 Neut ABS# 2.98 K/ul 05/18/2018 Cbc With Differential Ord2 RDW 14.1 % 05/18/2018 Cbc With Differential Ord2 Lymph ABS# 1.94 K/ul 05/18/2018 Cbc With Differential Ord2 Dukes ABS# 0.9 K/ul 05/18/2018 Cbc With Differential Ord2 Eos ABS# 0.4 K/ul 05/18/2018 Cbc With Differential Ord2 Baso ABS# 0.0 K/ul 05/18/2018 Random Urine Protein/Creatinine Ratio Lkg8122 U Prot 7.0 mg/dl 05/18/2018 Random Urine Protein/Creatinine Ratio Nje1360 U CREAT 75.0 mg/dL 05/18/2018 Random Urine Protein/Creatinine Ratio Rey6709 R MTP/Creat Ratio 0.09 05/18/2018 Vitamin D 25 Oh Bxu8380 VITAMIN D, 25 HYDROXY 27.40 ng/mL 05/18/2018 Tibc Ord40 Iron 68 ug/dl 05/18/2018 Tibc Ord40 UIBC 308 ug/dL 05/18/2018 Tibc Ord40 TIBC 376 ug/dL 05/18/2018 Tibc Ord40 Fe-%Sat 18.1 % 05/18/2018 Parathyroid Hormone Lit333 PTH 36.20 pg/ml 05/18/2018 Urinalysis Ord28 U-Color [...] refrigerated) 05/18/2018 Urinalysis Ord28 U-Yeast NEGATIVE 05/18/2018 Renal Yvv878 NA 141 mEq/L 05/18/2018 Renal Lgq633 K 4.0 mEq/L 05/18/2018 Renal Plv046 CL 107 mEq/L 05/18/2018 Renal Gbe957 CO2 27.0 mEq/L 05/18/2018 Renal Vqr296 ANION GAP 11 05/18/2018 Renal Pxz578 Osmo 282 mOsmo 05/18/2018 Renal Ukl351 GLUCOSE 83 mg/dL 05/18/2018 Renal Jzi820 BUN 18 mg/dL 05/18/2018 Renal Kdw652 Creat 1.4 mg/dL 05/18/2018 Renal Het827 eGFR 55 ml/min/1.73m2 05/18/2018 Renal Suq707 B/C Ratio 13.3 Ratio 05/18/2018 Renal Stn680 CALCIUM 9.0 mg/dL 05/18/2018 Renal Dmu559 PHOS 2.9 mg/dL 05/18/2018 Renal Hld394 ALBUMIN 4.0 g/dL 05/18/2018 Ferritin Ord22 FERRITIN [...] Metabolic Ord15 CALCIUM 9.2 mg/dL 03/23/2018 Pt Rwt8480 PT 29.0 seconds 03/13/2018 Pt Ldb3231 INR 2.7 03/13/2018 Pt Dxx1396 Low Intensity - 1.5-2.0 03/13/2018 Pt Fsh8172 Mod intensity - 2.0-3.0 03/13/2018 Pt Vlw8151 Hi intensity - 3.0-4.0 03/13/2018 Pt Nso4362 PT 31.6 seconds 03/04/2018 Pt Sak9800 INR 3.0 03/04/2018 Pt Zdm1319 Low Intensity - 1.5-2.0 03/04/2018 Pt Sie3527 Mod intensity - 2.0-3.0 03/04/2018 Pt Niz8776 Hi intensity - 3.0-4.0 03/04/2018 Pt Ntb6166 PT 33.3 seconds 01/29/2018 Pt Jaq7138 INR 3.2 01/29/2018 Pt Kyl4903 Low Intensity - 1.5-2.0 01/29/2018 Pt Clc7250 Mod intensity - 2.0-3.0 01/29/2018 Pt Ray4199 Hi intensity - 3.0-4.0 01/29/2018 Pt Iyy9628 PT 26.1 seconds 01/21/2018 Pt Bti2276 INR 2.4 01/21/2018 Pt Nsn8246 Low Intensity - 1.5-2.0 01/21/2018 Pt Her0844 Mod intensity - 2.0-3.0 01/21/2018 Pt Mly7161 Hi intensity - 3.0-4.0 01/21/2018 Pt Rkc7864 PT 35.7 seconds 01/09/2018 Pt Mwa7807 INR 3.5 01/09/2018 Pt Cgu7160 Low Intensity - 1.5-2.0 01/09/2018 Pt Dkj1471 Mod intensity - 2.0-3.0 01/09/2018 Pt Dkp4375 Hi intensity - 3.0-4.0 01/09/2018 Pt Kxw8180 PT 23.8 seconds 12/04/2017 Pt Ohi3973 INR 2.1 12/04/2017 Pt Kfz6663 Low Intensity - 1.5-2.0 12/04/2017 Pt Kse4634 Mod intensity - 2.0-3.0 12/04/2017 Pt Lba2759 Hi intensity - 3.0-4.0 12/04/2017 Pt Urp7613 PT 32.3 seconds 11/12/2017 Pt Oti9161 INR 3.1 11/12/2017 Pt Egz1096 Low Intensity - 1.5-2.0 11/12/2017 Pt Smo1861 Mod intensity - 2.0-3.0 11/12/2017 Pt Kos8646 Hi intensity - 3.0-4.0 11/12/2017 Urinalysis Ord28 [...] U-VOL VOLUME SUFFICIENT (10mL) 10/20/2017 Urinalysis Ord28 U-Com Urine saved if culture needed (specimen acceptable for 48 hours from collection if refrigerated) 10/20/2017 Urinalysis Ord28 U-Yeast NEGATIVE 10/20/2017 Pt Kpi6145 PT 16.6 seconds 10/20/2017 Pt Kbi3010 INR 1.4 10/20/2017 Pt Usj3707 Low Intensity - 1.5-2.0 10/20/2017 Pt Qiz7037 Mod intensity - 2.0-3.0 10/20/2017 Pt Ztp1357 Hi intensity - 3.0-4.0 10/20/2017 Renal Yqm791 NA 142 mEq/L 10/20/2017 Renal Zgd658 K 4.5 mEq/L 10/20/2017 Renal Xcx518 CL 107 mEq/L 10/20/2017 Renal Aqq331 CO2 28.0 mEq/L 10/20/2017 Renal Edh797 ANION GAP 12 10/20/2017 Renal Ylc936 Osmo 288 mOsmo 10/20/2017 Renal Qoy570 GLUCOSE 96 mg/dL 10/20/2017 Renal Ciq211 BUN 27 mg/dL 10/20/2017 Renal Djf249 Creat 1.6 mg/dL 10/20/2017 Renal Axt927 eGFR 46 ml/min/1.73m2 10/20/2017 Renal Ilo527 B/C Ratio 17.2 Ratio 10/20/2017 Renal Atl118 CALCIUM 9.4 mg/dL 10/20/2017 Renal Iau124 PHOS 3.0 mg/dL 10/20/2017 Renal Sjc732 ALBUMIN 4.2 g/dL 10/20/2017 Pt Dnf2165 PT 31.2 seconds 10/17/2017 Pt Qwt7514 INR 3.0 10/17/2017 Pt Ygi3737 Low Intensity - 1.5-2.0 10/17/2017 Pt Czv5940 Mod intensity - 2.0-3.0 10/17/2017 Pt Xlv0933 Hi intensity - 3.0-4.0 10/17/2017 Comp Metabolic Khg461 NA 139 mEq/L 05/08/2017 Comp Metabolic Lhn339 K 4.1 mEq/L 05/08/2017 Comp Metabolic Fam071 CL 103 mEq/L 05/08/2017 Comp Metabolic Wxk416 CO2 28.0 mEq/L 05/08/2017 Comp Metabolic Pss870 ANION GAP 12 05/08/2017 Comp Metabolic Wjd270 GLUCOSE 75 mg/dL 05/08/2017 Comp Metabolic Qsq251 Creat 1.3 mg/dL 05/08/2017 Comp Metabolic Kru091 eGFR 55 ml/min/1.73m2 05/08/2017 Comp Metabolic Wan515 BUN 20 mg/dL 05/08/2017 Comp Metabolic Uli146 B/C Ratio 14.9 Ratio 05/08/2017 Comp Metabolic Rdh219 CALCIUM 8.8 mg/dL 05/08/2017 Comp Metabolic Cxq526 ALK PHOS 51 U/L 05/08/2017 Comp Metabolic Bvy246 AST(SGOT) 30 U/L 05/08/2017 Comp Metabolic Zge587 ALT(SGPT) 31 U/L 05/08/2017 Comp Metabolic Zxs706 BILI T 0.9 mg/dL 05/08/2017 Comp Metabolic Ycp560 ALBUMIN 4.0 g/dL 05/08/2017 Comp Metabolic Bsx638 TPRO 6.5 g/dL 05/08/2017 Comp Metabolic Eog848 GLOB 2.6 g/dL 05/08/2017 Comp Metabolic Zea372 A/G Ratio 1.5 Ratio 05/08/2017 Comp Metabolic Zir594 Osmo 279 mOsmo 05/08/2017 Cbc With Differential [...] 31.5 pg 05/08/2017 Cbc With Differential Ord2 Dukes% 13.5 % 05/08/2017 Cbc With Differential Ord2 [...] 1.29 K/ul 05/08/2017 Cbc With Differential Ord2 Dukes ABS# 1.1 K/ul 05/08/2017 Cbc With Differential Ord2 Eos ABS# 0.2 K/ul 05/08/2017 Cbc With Differential Ord2 Baso ABS# 0.0 K/ul 05/08/2017 Pt Twj9738 PT 22.7 seconds 11/22/2016 Pt Zjw1902 INR 2.1 11/22/2016 Pt Bdw6646 Low Intensity - 1.5-2.0 11/22/2016 Pt Vfd2553 Mod intensity - 2.0-3.0 11/22/2016 Pt Nie9475 Hi intensity - 3.0-4.0 11/22/2016 Pt Eei8092 PT 24.4 seconds 10/25/2016 Pt Dle1549 INR 2.3 10/25/2016 Pt Kyg8438 Low Intensity - 1.5-2.0 10/25/2016 Pt Hsj9527 Mod intensity - 2.0-3.0 10/25/2016 Pt Hzn7077 Hi intensity - 3.0-4.0 10/25/2016 Pt Syw5130 PT 23.5 seconds 09/04/2016 Pt Fyh0538 INR 2.2 09/04/2016 Pt Swm1885 Low Intensity - 1.5-2.0 09/04/2016 Pt Qkt2806 Mod intensity - 2.0-3.0 09/04/2016 Pt Ycg0581 Hi intensity - 3.0-4.0 09/04/2016 Pt Fyw3589 PT 26.1 seconds 07/09/2016 Pt Oci5650 INR 2.6 07/09/2016 Pt Mes4568 Low Intensity - 1.5-2.0 07/09/2016 Pt Dkn0007 Mod intensity - 2.0-3.0 07/09/2016 Pt Eqm7839 Hi intensity - 3.0-4.0 07/09/2016 Pt Wgl3353 PT 19.4 seconds 06/24/2016 Pt Hyf8045 INR 1.7 06/24/2016 Pt Afw4735 Low Intensity - 1.5-2.0 06/24/2016 Pt Jjq5286 Mod intensity - 2.0-3.0 06/24/2016 Pt Usl2872 Hi intensity - 3.0-4.0 06/24/2016 Pt Ecm8032 PT 28.9 seconds 04/26/2016 Pt Rlh6945 INR 2.9 04/26/2016 Pt Xrj8601 Low Intensity - 1.5-2.0 04/26/2016 Pt Sva9923 Mod intensity - 2.0-3.0 04/26/2016 Pt Hfb2038 Hi intensity - 3.0-4.0 04/26/2016 Tsh Ord6 hTSH II 1.21 uIU/mL 02/29/2016 Pt Dwq1540 PT 21.8 seconds 02/29/2016 Pt Axz7202 INR 2.0 02/29/2016 Pt Jhx1594 Low Intensity - 1.5-2.0 02/29/2016 Pt Jtu9238 Mod intensity - 2.0-3.0 02/29/2016 Pt Vrf0174 Hi intensity - 3.0-4.0 02/29/2016 Lipid Ord30 [...] Ord2 RDW 16.2 % 06/30/2015 Comp Metabolic Pex930 NA 138 mEq/L 06/30/2015 Comp Metabolic Rjd137 K 4.8 mEq/L 06/30/2015 Comp Metabolic Dom469 CL 107 mEq/L 06/30/2015 Comp Metabolic Uyu639 CO2 27.0 mEq/L 06/30/2015 Comp Metabolic Wyv912 ANION GAP 9 06/30/2015 Comp Metabolic Pqx221 GLUCOSE 98 mg/dL 06/30/2015 Comp Metabolic Fyr690 Creat 1.8 mg/dL 06/30/2015 Comp Metabolic Deq922 eGFR 40 ml/min/1.73m2 06/30/2015 Comp Metabolic Fbe020 BUN 20 mg/dL 06/30/2015 Comp Metabolic Fip453 B/C Ratio 11.1 Ratio 06/30/2015 Comp Metabolic Qag738 CALCIUM 9.1 mg/dL 06/30/2015 Comp Metabolic Osy932 ALK PHOS 39 U/L 06/30/2015 Comp Metabolic Nxj294 AST(SGOT) 21 U/L 06/30/2015 Comp Metabolic Bew077 ALT(SGPT) 23 U/L 06/30/2015 Comp Metabolic Mxs335 BILI T 0.5 mg/dL 06/30/2015 Comp Metabolic Jzh020 ALBUMIN 4.0 g/dL 06/30/2015 Comp Metabolic Afd154 TPRO 6.6 g/dL 06/30/2015 Comp Metabolic Wwf116 GLOB 2.6 g/dL 06/30/2015 Comp Metabolic Gnn051 A/G Ratio 1.5 Ratio 06/30/2015 Comp Metabolic Eay138 Osmo 278 mOsmo 06/30/2015 Pt Nyq9680 PT 26.1 seconds 06/30/2015 Pt Git0951 INR 2.5 06/30/2015 Pt Yis0642 Low Intensity - 1.5-2.0 06/30/2015 Pt Led2740 Mod intensity - 2.0-3.0 06/30/2015 Pt Fxr6471 Hi intensity - 3.0-4.0 06/30/2015 Review of [...] Procedure Codes Date DESTRUCT PREMALG LESION CPT-4: 50660 04/29/2019 DESTRUCT PREMALG LESION CPT-4: 15384 12/31/2018 DESTRUCT PREMALG LES 2-14 CPT-4: 34502 12/31/2018 OCCULT BLOOD FECES CPT- 4: 21849 04/08/2018 PPPS, SUBSEQ VISIT CPT- 4: G0439 04/03/2018 PPPS, SUBSEQ VISIT CPT- 4: G0439 10/31/2017 PRESCRIP TRANSMIT VIA ERX SY CPT-4: G8553 09/22/2017 THER/PROPH/DIAG INJ SC/IM CPT-4: 40692 01/21/2017 TRIAMCINOLONE ACET INJ NOS CPT-4: J3301 01/21/2017 THER/PROPH/DIAG INJ SC/IM CPT-4: 79103 12/30/2016 ROCEPHIN, PER 250 MG CPT- 4: J0696 12/30/2016 PPPS, SUBSEQ VISIT CPT- 4: G0439 10/25/2016 ROCEPHIN, PER 250 MG CPT- 4: J0696 06/24/2016 THER/PROPH/DIAG INJ SC/IM CPT-4: 61249 06/24/2016 Vital Signs Date Vital 04/29/2019 Blood Pressure 1: 158/80 Code: 8480-6 BMI: 31.0 Code: 49862-1 Heart Rate 1: 58 bpm Height: 5'8" SpO2: 96% Weight: 204 lbs 12/31/2018 Blood Pressure 1: 140/80 Code: 8480-6 BMI: 29.0 Code: 21237-1 Heart Rate 1: 86 bpm Height: 5'8" SpO2: 97% Weight: 191 lbs 12/23/2018 Blood Pressure 1: 140/68 Code: 8480-6 BMI: 29.3 Code: 41215-2 Heart Rate 1: 70 bpm Height: 5'8" SpO2: 97% Weight: 193 lbs 04/03/2018 Blood Pressure 1: 128/72 Code: 8480-6 BMI: 29.8 Code: 83960-2 Heart Rate 1: 60 bpm Height: 5'8" SpO2: 96% Weight: 196 lbs 03/31/2018 Blood Pressure 1: 128/76 Code: 8480-6 BMI: 29.8 Code: 38055-3 Heart Rate 1: 56 bpm Height: 5'8" SpO2: 98% Weight: 196 lbs 11/26/2017 Blood Pressure 1: 156/76 Code: 8480-6 BMI: 29.6 Code: 51424-5 Heart Rate 1: 57 bpm Height: 5'8" SpO2: 98% Weight: 195 lbs 10/31/2017 Blood Pressure 1: 136/74 Code: 8480-6 BMI: 29.5 Code: 94773-0 Heart Rate 1: 56 bpm Height: 5'8" SpO2: 95% Waist Measure (cm): 91 cm Weight: 194 lbs 10/07/2017 Blood Pressure 1: 136/72 Code: 8480-6 BMI: 30.3 Code: 56069-1 Heart Rate 1: 58 bpm Height: 5'8" SpO2: 96% Weight: 199 lbs 09/22/2017 Blood Pressure 1: 138/78 Code: 8480-6 BMI: 30.4 Code: 44470-5 Heart Rate 1: 60 bpm Height: 5'8" SpO2: 98% Temperature: 36.6 (C) / 97.9 (F) Weight: 200 lbs 05/08/2017 Blood Pressure 1: 128/80 Code: 8480-6 BMI: 30.0 Code: 50941-7 Heart Rate 1: 75 bpm Height: 5'8" SpO2: 98% Weight: 197 lbs 03/25/2017 Blood Pressure 1: 150/80 Code: 8480-6 BMI: 30.1 Code: 17150-2 Heart Rate 1: 53 bpm Height: 5'8" SpO2: 98% Weight: 198 lbs 01/21/2017 Blood Pressure 1: 156/88 Code: 8480-6 BMI: 29.8 Code: 30199-8 Heart Rate 1: 95 bpm Height: 5'8" SpO2: 98% Temperature: 36.9 (C) / 98.4 (F) Weight: 196 lbs 12/30/2016 Blood Pressure 1: 122/74 Code: 8480-6 BMI: 29.8 Code: 38953-9 Heart Rate 1: 60 bpm Height: 5'8" SpO2: 96% Temperature: 37.1 (C) / 98.8 (F) Weight: 196 lbs 12/26/2016 Blood Pressure 1: 142/74 Code: 8480-6 BMI: 29.8 Code: 85537-3 Heart Rate 1: 58 bpm Height: 5'8" SpO2: 96% Temperature: 36.7 (C) / 98.0 (F) Weight: 196 lbs 12/02/2016 Blood Pressure 1: 128/78 Code: 8480-6 BMI: 30.3 Code: 17733-2 Heart Rate 1: 49 bpm Height: 5'8" SpO2: 98% Temperature: 36.5 (C) / 97.7 (F) Weight: 199 lbs 11/21/2016 Blood Pressure 1: 130/68 Code: 8480-6 BMI: 30.3 Code: 30718-1 Heart Rate 1: 54 bpm Height: 5'8" SpO2: 98% Weight: 199 lbs 10/25/2016 Blood Pressure 1: 150/92 Code: 8480-6 BMI: 29.8 Code: 12208-9 Heart Rate 1: 54 bpm Height: 5'8" SpO2: 97% Waist Measure (cm): 97 cm Weight: 196 lbs 10/23/2016 Blood Pressure 1: 150/92 Code: 8480-6 BMI: 29.9 Code: 63389-5 Heart Rate 1: 54 bpm Height: 5'8" SpO2: 98% Weight: 196 lbs 8 oz 07/29/2016 Blood Pressure 1: 144/72 Code: 8480-6 BMI: 30.3 Code: 34601-0 Heart Rate 1: 54 bpm Height: 5'8" SpO2: 98% Weight: 199 lbs 06/24/2016 Blood Pressure 1: 132/78 Code: 8480-6 BMI: 29.5 Code: 80467-1 Heart Rate 1: 59 bpm Height: 5'8" SpO2: 94% Weight: 194 lbs 02/21/2016 Blood Pressure 1: 138/84 Code: 8480-6 BMI: 30.3 Code: 75389-2 Heart Rate 1: 64 bpm Height: 5'8" SpO2: 95% Weight: 199 lbs 10/18/2015 Blood Pressure 1: 154/84 Code: 8480-6 Blood Pressure 1: 138/72 Code: 8480-6 BMI: 30.4 Code: 96688-0 Heart Rate 1: 68 bpm Height: 5'8" SpO2: 97% Weight: 200 lbs 05/02/2015 Blood Pressure 1: 114/64 Code: 8480-6 BMI: 29.0 Code: 72928-8 Heart Rate 1: 62 bpm Height: 5'8" [...] limb, including hip[ICD10: C44.722] Leidy Husain MD, [facility] CPT-4: 51630 04/29/2019 77966 EST. PATIENT, LEVEL III Diagnosis: Diverticulitis of small intestine with perforation and abscess without bleeding[ICD10: K57.00] [facility] CPT-4: 88703 12/23/[id number]) 52675 EST. PATIENT, LEVEL III Diagnosis: Low back pain[ICD10: M54.5] Diagnosis: Muscle spasm of back[ICD10: M62.830] [facility] CPT-4: 85374 03/31/2018 ([id number]) 16204 EST. PATIENT, LEVEL III Diagnosis: Actinic keratosis[ICD10: L57.0] Diagnosis: Other hypertrophic disorders of the skin[ICD10: L91.8] Amanda Husain MD, [facility] CPT-4: 59809 11/26/2017 ([id number]) 13472 EST. PATIENT, LEVEL IV Diagnosis: Essential (primary) hypertension[ICD10: I10] Diagnosis: Mild cognitive impairment, so stated[ICD10: G31.84] Amanda Husain MD [facility] CPT-4: 85288 10/07/2017 ([id number]) 36951 EST. PATIENT, LEVEL III Diagnosis: Pneumonia due to other streptococci[ICD10: J15.4] Diagnosis: Cough[ICD10: R05] Amanda Husain MD, [facility] CPT-4: 85695 09/22/2017 16651 EST. PATIENT, LEVEL IV Diagnosis: Left lower quadrant pain[ICD10: R10.32] Diagnosis: Other fatigue[ICD10: R53.83] Gabrielle Husain MD, [facility] CPT-4: 43292 05/08/2017 ([id number]) 67500 EST. PATIENT, LEVEL III Diagnosis: Essential (primary) hypertension[ICD10: I10] Amanda Husain MD [facility] CPT-4: 42973 03/25/2017 ([id number]) 70493 EST. PATIENT, LEVEL III Diagnosis: Cough[ICD10: R05] Diagnosis: Allergic rhinitis due to pollen[ICD10: J30.1] Leidy Husain MD [facility] CPT-4: 24378 01/21/2017 79749 EST. PATIENT, LEVEL III Diagnosis: Other allergic rhinitis[ICD10: J30.89] Diagnosis: Cough[ICD10: R05] Gabrielle Husain MD, [facility] CPT-4: 01147 12/30/2016 ([id number]) 66395 EST. PATIENT, LEVEL III Diagnosis: Cough[ICD10: R05] Diagnosis: Pneumonia, unspecified organism[ICD10: J18.9] Leidy Husain MD, [facility] CPT-4: 80133 12/26/2016 ([id number]) 01785 EST. PATIENT, LEVEL III Diagnosis: Pneumonia due to other streptococci[ICD10: J15.4] Diagnosis: Cough[ICD10: R05] Amanda Husain MD, [facility] CPT-4: 72218 12/02/2016 ([id number]) 17778 EST. PATIENT, LEVEL III Diagnosis: Essential (primary) hypertension[ICD10: I10] Amanda Husain MD [facility] CPT-4: 84907 11/21/2016 ([id number]) 99256 EST. PATIENT, LEVEL IV Diagnosis: Essential (primary) hypertension[ICD10: I10] Diagnosis: Mixed hyperlipidemia[ICD10: E78.2] Amanda Husain MD, [facility] CPT- 4: 77179 10/23/2016 97850 EST. PATIENT, LEVEL IV Diagnosis: Other allergic rhinitis[ICD10: J30.89] Diagnosis: Cough[ICD10: R05] Gabrielle Husain MD, [facility] CPT-4: 95264 07/29/2016 ([id number]) Miscellaneous no charge Diagnosis: Pneumonia, unspecified organism[ICD10: J18.9] Gabrielle Husain MD, [facility] CPT-4: 16075 06/27/2016 ([id number]) 76185 EST. PATIENT, LEVEL IV Diagnosis: Essential (primary) hypertension[ICD10: I10] Diagnosis: Pneumonia, unspecified organism[ICD10: J18.9] Diagnosis: Cough[ICD10: R05] Diagnosis: Mixed hyperlipidemia[ICD10: E78.2] Amanda Husain MD, [facility] CPT- 4: 34874 06/24/2016 ([id number]) 33627 EST. PATIENT, LEVEL IV Diagnosis: Mixed hyperlipidemia[ICD10: E78.2] Diagnosis: Essential (primary) hypertension[ICD10: I10] Diagnosis: Gastro-esophageal reflux disease without esophagitis[ICD10: K21.9] Amanda Husain MD, [facility] CPT-4: 04536 02/21/2016 ([id number]) 72428 EST. 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 04/29/2019 Appointment: Leidy Angulo WPtel: [phone] [place] (30 min) Complex 04/29/2019 Patient Education: Patient Medication Summary Completed 04/29/2019 Visit Plan: Actinic Keratosis - treated with cryotherapy x 3, pt advised on how to appropriately care for the lesion. Call if not improved after thorough healing - apply neosporin to skin lesions. 12/31/2018 Appointment: Amanda Husain WPtel: [facility] (30 min) Complex 12/31/2018 Patient Education: Patient Medication Summary Completed 12/31/2018 Visit Plan: Diverticulitis - rx for antibiotic sent to pt's pharmacy - pt advised to avoid seeds, nuts, popcorn, or any other food which has been proven to upset the pt's stomach. 12/23/2018 Appointment: Gabrielle Corona WPtel: [address] [place], [place] [phone] [place] (15 min) Moderate 12/23/2018 Patient Education: Patient Medication Summary Completed 12/23/2018 Appointment: Gabrielle Corona WPtel: [phone] [facility] [place] (30 min) Complex 12/16/2018 Appointment: Lab [...] not improve. 03/31/2018 Appointment: Leidy Angulo WPtel: [phone] [facility] [place] [address] (15 min) Moderate 03/31/2018 Patient Education: Patient Medication Summary Completed 03/31/2018 Visit Plan: Wound Instructions - Pt was instructed to keep the wound clean, wash with antibacterial soap, use triple antibiotic ointment, call if redness, pustular drainage, or any other acute concerns. 11/26/2017 Appointment: Amanda Husain WPtel: [phone] [facility] Surgical Procedure 11/26/2017 Patient Education: Patient Medication [...] surrogate. 10/31/2017 Appointment: Leidy Angulo WPtel: [phone] [phone] [facility] - Annual Wellness Visit 10/31/2017 Patient [...] loss. 10/07/2017 Appointment: Amanda Husain WPtel: [phone] [facility] (30 min) Complex 10/07/2017 Patient Education: Patient Medication Summary Completed 10/07/2017 Patient Education: Obesity Completed 10/07/2017 Patient Education: Hypertension Completed 10/07/2017 Visit Plan: Pneumonia - Pt has been diagnosed with pneumonia by physical exam. Antibiotics have been ordered. The pt is aware of the diagnosis and the need for acute treatment of this illness. 09/22/2017 [facility]ment[phone] (15 min) Moderate 09/22/2017 Patient Education: [...] concerns. 05/08/2017 Appointment: Gabrielle Corona WPtel: [phone] [facility] (30 min) Complex 05/08/2017 Patient Education: Patient [...] daily. 03/25/2017 Appointment: Amanda Husain WPtel: [phone] [facility] [place] (15 min) Moderate 03/25/2017 Patient Education: Patient Medication Summary Completed 03/25/2017 Appointment: Leidy Angulo WPtel: [facility] [address] [place] (15 min) Moderate 01/31/2017 Visit Plan: URI/Allergies - Pt advised to increase fluids, vitamin C. Discussed natural and expected course of this diagnosis and need to alert me if symptoms do not follow expected course, or if any worse. RX sent to patient's pharmacy. 01/21/2017 Appointment: Leidy Angulo WPtel: [phone] [phone] [place] (15 min) Moderate 01/21/2017 Patient Education: [...] medication. 12/30/2016 Appointment: Leidy Angulo WPtel: [phone] [phone] [place] (15 min) Moderate 12/30/2016 App[facility]ment: [phone] ([facility] min) Complex 12/30/2016 Patient Education: Patient [...] the levaquin. 12/26/2016 Appointment: [facility] [phone] [phone] [place] (15 min) Moderate 12/26/2016 Patient Education: [...] home. 11/21/2016 Appointment: [facility] [phone] [facility] [place] (15 min) Moderate 11/21/2016 Patient [...] care surrogate. 10/25/2016 Appointment: Leidy Angulo WPtel: [phone] [phone] [facility] - Annual Wellness Visit 10/25/2016 Patient [...] to medications. 10/23/2016 Appointment: [phone] [facility] (15 min) Moderate 10/23/2016 Patient Education: [...] concerns. 07/29/2016 Appointment: [facility] [phone] [facility] [place] (15 min) Moderate 07/29/2016 Patient Education: [...] to medications. 06/24/2016 Appointment: Amanda Husain WPtel: [phone] [facility] (15 min) Moderate 06/24/2016 Patient Education: Patient [...] improving. 02/21/2016 Appointment: Amanda Husain WPtel: [phone] [facility] (15 min) Moderate 02/21/2016 Patient Education: Patient [...] Care Plan: COMPLETE CBC AUTOMATED LOINC : 95532-1 Ordered 05/02/2015 Care Plan: ASSAY OF TROPONIN QUANT Ordered 05/02/2015 Care Plan: ASSAY OF CK (CPK) Ordered 05/02/2015 Instructions Comment . Nonhealing skin lesion -right lower leg [...] healing - apply neosporin to skin lesions. [facility] - take three times daily x 7 days get a PT/INR check on of this week . Pneumonia - Pt has been diagnosed with pneumonia by physical exam. Antibiotics ordered, pt advised on starting a probiotic, and to have his inr checked on of this week. The pt is aware of the diagnosis and the need for acute treatment of this illness. Finish levaquin and prednisone - let me [...]
--- OUTSIDE RECORDS SUMMARY | 2019-05-19 10:30 | XMS REPORT | CCD ---
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 Name Role Phone PP Unavailable CCM Unavailable Summary Purpose Interface Exchange Insurance Providers Payer name Policy type / Coverage type Covered alliance party ID Effective Begin Date Effective End Date WPS Medicare Part B [id number] 2019 Unknown [employer] [id number] 2019 Unknown Family history Brother Diagnosis Age At [...] Unknown Retired 05/02/[address]: 9317868 Former smoker Quit in 1966 05/02/2015 Number [...] Instructions Zithromax Z-Carlo 250 mg tablet RxNorm: 447020 2 Tablet(s) PO on 1 st day then 1 daily x 4 days ZPACK X 1 01/15/2019 04/28/2019 Inactive metronidazole 500 mg tablet RxNorm: 315651 1 Tablet(s) PO TID 12/23/2018 01/01/2019 Inactive omeprazole 20 mg capsule,delayed release RxNorm: 615734 TAKE 1 CAPSULE BY MOUTH ONCE DAILY 12/07/2018 No Stop Date Active metoprolol tartrate 25 mg tablet RxNorm: 764850 Tablet(s) TAKE 1 TABLET BY MOUTH TWICE DAILY 10/16/2018 No Stop Date Active metoprolol tartrate 25 mg tablet RxNorm: 588979 TAKE 1 TABLET BY MOUTH TWICE DAILY 07/13/2018 10/15/2018 Inactive Trilipix 135 mg capsule,delayed release RxNorm: 829209 1 Capsule(s) PO daily 06/17/2018 10/14/2018 Inactive ramipril 10 mg capsule RxNorm: 078497 TAKE ONE CAPSULE BY MOUTH ONCE DAILY 06/15/2018 No Stop Date Active omeprazole 20 mg capsule,delayed release RxNorm: 521071 Capsule(s) TAKE ONE CAPSULE BY MOUTH ONCE DAILY 06/03/2018 04/28/2019 Inactive omeprazole 20 mg capsule,delayed release RxNorm: 675243 Capsule(s) TAKE ONE CAPSULE BY MOUTH ONCE DAILY 06/02/2018 06/02/2018 Inactive metoprolol tartrate 25 mg tablet RxNorm: 624504 TAKE ONE TABLET BY MOUTH TWICE DAILY 02/16/2018 07/12/2018 Inactive omeprazole 20 mg capsule,delayed release RxNorm: 486190 TAKE ONE CAPSULE BY MOUTH ONCE DAILY 01/05/2018 06/01/2018 Inactive metoprolol tartrate 25 mg tablet RxNorm: 142877 TAKE ONE TABLET BY MOUTH TWICE DAILY 10/27/2017 02/15/2018 Inactive azithromycin 250 mg tablet RxNorm: 195803 1 Tablet(s) PO UD 2 tabs on day #1, then 1 pill daily x 4 days 09/22/2017 11/25/2017 Inactive omeprazole 20 mg capsule,delayed release RxNorm: 792709 TAKE ONE CAPSULE BY MOUTH ONCE DAILY 06/16/2017 12/12/2017 Inactive metronidazole 500 mg tablet RxNorm: 370918 1 Tablet(s) PO TID 05/08/2017 05/14/2017 Inactive ramipril 10 mg capsule RxNorm: 452070 1 Capsule(s) PO daily 03/25/2017 03/19/2018 Inactive Kenalog 40 mg/mL suspension for injection RxNorm: 9996589 Milliliter(s) Inj 01/21/2017 01/21/2017 Inactive ceftriaxone 500 mg solution for injection RxNorm: 8984713 Inj 12/30/2016 12/30/2016 Inactive Levaquin 500 mg tablet RxNorm: 662161 1 Tablet(s) PO daily 12/26/2016 01/01/2017 Inactive Tessalon Perles 100 mg capsule RxNorm: 247118 1 Capsule(s) PO TID as needed 12/26/2016 01/04/2017 Inactive prednisone 20 mg tablet RxNorm: 156143 1 Tablet(s) PO BID 12/26/2016 12/30/2016 Inactive Phenergan with Codeine Syrup RxNorm: 5-10 Milliliter(s) PO Q6 PRN 12/26/2016 04/28/2019 Inactive omeprazole 20 mg capsule,delayed release RxNorm: 314147 TAKE ONE CAPSULE BY MOUTH ONCE DAILY 12/16/2016 06/13/2017 Inactive cefdinir 300 mg capsule RxNorm: 461524 1 Capsule(s) PO BID 12/02/2016 12/08/2016 Inactive azithromycin 250 mg tablet RxNorm: 192880 Tablet(s) 2 tabs on day #1, then one tab PO daily x 4 more days 12/02/2016 12/25/2016 Inactive metoprolol tartrate 25 mg tablet RxNorm: 477335 1 Tablet(s) PO BID 10/23/2016 10/22/2016 Inactive metoprolol tartrate 25 mg tablet RxNorm: 509719 1 Tablet(s) PO BID 10/23/2016 04/28/2019 Inactive ceftriaxone 500 mg solution for injection RxNorm: 5808757 Inj 06/24/2016 06/24/2016 Inactive cefdinir 300 mg capsule RxNorm: 831578 1 Capsule(s) PO BID 06/24/2016 06/30/2016 Inactive omeprazole 20 mg capsule,delayed release RxNorm: 180608 TAKE ONE CAPSULE BY MOUTH DAILY 06/07/2016 12/03/2016 Inactive omeprazole 20 mg capsule,delayed release RxNorm: 429489 TAKE ONE CAPSULE BY MOUTH DAILY 01/29/2016 05/27/2016 Inactive metoprolol tartrate 50 mg tablet RxNorm: 623954 Tablet(s) TAKE ONE TABLET BY MOUTH DAILY 10/11/2015 10/10/2015 Inactive metoprolol tartrate 50 mg tablet RxNorm: 050684 TAKE ONE TABLET BY MOUTH DAILY 10/11/2015 10/22/2016 Inactive omeprazole 20 mg capsule,delayed release RxNorm: 806521 TAKE ONE CAPSULE BY MOUTH DAILY 08/28/2015 01/24/2016 Inactive metoprolol tartrate 50 mg tablet RxNorm: 071022 TAKE ONE TABLET BY MOUTH DAILY 08/11/2015 10/09/2015 Inactive metoprolol tartrate 50 mg tablet RxNorm: 913656 1 Tablet(s) PO daily 06/14/2015 08/10/2015 Inactive omeprazole 20 mg capsule,delayed release RxNorm: 035858 1 Capsule(s) PO daily 05/29/2015 05/28/2015 Inactive omeprazole 20 mg capsule,delayed release RxNorm: 100636 1 Capsule(s) PO daily 05/29/2015 04/28/2019 Inactive metronidazole 500 mg tablet RxNorm: 644018 1 Tablet(s) PO TID 05/02/2015 05/08/2015 Inactive finasteride 5 mg tablet RxNorm: 972053 1 Tablet(s) PO daily No Start Date Active warfarin 5 mg tablet RxNorm: 675789 1 Tablet(s) PO daily No Start Date Active Aspirin Childrens 81 mg chewable tablet RxNorm: 650879 1 Tablet(s) PO daily No Start Date Active amiodarone 200 mg tablet RxNorm: 729289 1 Tablet(s) PO daily No Start Date Active vitamin E (dl, acetate) 1,000 unit capsule RxNorm: 280980 1 Capsule(s) PO daily No Start Date Active atorvastatin 80 mg tablet RxNorm: 261535 1 Tablet(s) PO daily No Start Date Active Fish Oil 120 mg-180 mg capsule RxNorm: 964046 1 Capsule(s) PO BID No Start Date 10/30/2017 Inactive metoprolol tartrate 50 mg tablet RxNorm: 284977 1 Tablet(s) PO daily No Start Date 06/13/2015 Inactive Zetia 10 mg tablet RxNorm: 772853 1 Tablet(s) PO daily No Start Date 10/17/2015 Inactive ramipril 5 mg capsule RxNorm: 505655 1 Capsule(s) PO daily No Start Date 03/24/2017 Inactive Tessalon Perles 100 mg capsule RxNorm: 071987 1 Capsule(s) PO TID as needed No Start Date 12/25/2016 Inactive omeprazole 20 mg capsule,delayed release RxNorm: 024639 1 Capsule(s) PO daily No Start Date 05/28/2015 Inactive Zithromax Z-Carlo 250 mg tablet RxNorm: 538123 2 Tablet(s) PO on 1 st day then 1 daily x 4 days ZPACK X 1 No Start Date 01/14/2019 Inactive Trilipix 135 mg capsule,delayed release RxNorm: 709107 1 Capsule(s) PO daily No Start Date 06/16/2018 Inactive Centrum Silver tablet RxNorm: 1 Tablet(s) PO daily No Start Date 10/30/2017 Inactive Medication Administered Medication Codes Instructions Start Date Status Kenalog 40 mg/mL suspension for injection RxNorm: 0453218 Milliliter 01/21/2017 No longer Active ceftriaxone 500 mg solution for injection RxNorm: 6155069 12/30/2016 No longer Active ceftriaxone 500 mg solution for injection RxNorm: 3950617 06/24/2016 No longer Active Immunizations Vaccine Codes [...] Observation Code Item Item Code Result Date Metabolic Ord15 NA 142 mEq/L 04/19/2019 Metabolic [...] Metabolic Ord15 CALCIUM 9.0 mg/dL 04/19/2019 Pt Eue9747 PT 32.2 seconds 04/15/2019 Pt Ppg8284 INR 3.2 04/15/2019 Pt Yxw2048 Low Intensity - 1.5-2.0 04/15/2019 Pt Lym3561 Mod intensity - 2.0-3.0 04/15/2019 Pt Ova3962 Hi intensity - 3.0-4.0 04/15/2019 Pt Vba5671 PT 20.2 seconds 03/19/2019 Pt Rqz4714 INR 1.8 03/19/2019 Pt Mnf8743 Low Intensity - 1.5-2.0 03/19/2019 Pt Vyl6747 Mod intensity - 2.0-3.0 03/19/2019 Pt Uze5203 Hi intensity - 3.0-4.0 03/19/2019 Pt Yug3510 PT 29.7 seconds 03/03/2019 Pt Zqb0854 INR 2.9 03/03/2019 Pt Dfi5305 Low Intensity - 1.5-2.0 03/03/2019 Pt Ooi9213 Mod intensity - 2.0-3.0 03/03/2019 Pt Flc3878 Hi intensity - 3.0-4.0 03/03/2019 Pt Fvt1828 PT 27.9 seconds 02/24/2019 Pt Vqo8288 INR 2.7 02/24/2019 Pt Ogt1887 Low Intensity - 1.5-2.0 02/24/2019 Pt Jdg3663 Mod intensity - 2.0-3.0 02/24/2019 Pt Cim8781 Hi intensity - 3.0-4.0 02/24/2019 Pt Lfk9346 PT 16.6 seconds 02/15/2019 Pt Xpq8912 INR 1.4 02/15/2019 Pt Fky7970 Low Intensity - 1.5-2.0 02/15/2019 Pt Emc9092 Mod intensity - 2.0-3.0 02/15/2019 Pt Pxk6629 Hi intensity - 3.0-4.0 02/15/2019 Pt Fca4710 PT 16.6 seconds 02/05/2019 Pt Xrq1719 INR 1.4 02/05/2019 Pt Lam8588 Low Intensity - 1.5-2.0 02/05/2019 Pt Zdy1365 Mod intensity - 2.0-3.0 02/05/2019 Pt Fdj1995 Hi intensity - 3.0-4.0 02/05/2019 Pt Aca6152 PT 39.6 seconds 02/01/2019 Pt Xfc4695 INR 4.1 02/01/2019 Pt Jvv7831 Low Intensity - 1.5-2.0 02/01/2019 Pt Lxr8257 Mod intensity - 2.0-3.0 02/01/2019 Pt Dhx7573 Hi intensity - 3.0-4.0 02/01/2019 Pt Lna8848 PT 31.9 seconds 01/20/2019 Pt Bri6221 INR 3.1 01/20/2019 Pt Fka2952 Low Intensity - 1.5-2.0 01/20/2019 Pt Adr1962 Mod intensity - 2.0-3.0 01/20/2019 Pt Rfj9373 Hi intensity - 3.0-4.0 01/20/2019 Pt Zbt8012 PT 21.0 seconds 01/12/2019 Pt Urq8556 INR 1.9 01/12/2019 Pt Egz4175 Low Intensity - 1.5-2.0 01/12/2019 Pt Rvt4375 Mod intensity - 2.0-3.0 01/12/2019 Pt Tlr7869 Hi intensity - 3.0-4.0 01/12/2019 Pt Rcu1665 PT 31.8 seconds 01/07/2019 Pt Seh1542 INR 3.1 01/07/2019 Pt Kkj7297 Low Intensity - 1.5-2.0 01/07/2019 Pt Iql7350 Mod intensity - 2.0-3.0 01/07/2019 Pt Sut7530 Hi intensity - 3.0-4.0 01/07/2019 Pt Zgw3520 PT 48.2 seconds 01/05/2019 Pt Gmt5666 INR 5.2 01/05/2019 Pt Tzt1809 Low Intensity - 1.5-2.0 01/05/2019 Pt Ubx6979 Mod intensity - 2.0-3.0 01/05/2019 Pt Hdm0274 Hi intensity - 3.0-4.0 01/05/2019 Pt Xjr3293 PT 17.6 seconds 12/25/2018 Pt Kyg7059 INR 1.5 12/25/2018 Pt Yku8715 Low Intensity - 1.5-2.0 12/25/2018 Pt Szs1166 Mod intensity - 2.0-3.0 12/25/2018 Pt Oed3177 Hi intensity - 3.0-4.0 12/25/2018 Cbc With [...] 30.0 pg 12/10/2018 Cbc With Differential Ord2 Tillman% 10.5 % 12/10/2018 Cbc With Differential Ord2 [...] 2.09 K/ul 12/10/2018 Cbc With Differential Ord2 Tillman ABS# 0.8 K/ul 12/10/2018 Cbc With Differential Ord2 Eos ABS# 0.4 K/ul 12/10/2018 Cbc With Differential Ord2 Baso ABS# 0.0 K/ul 12/10/2018 Uric Acid Ord77 Uric A 4.6 mg/dL 12/10/2018 Random Urine Protein/Creatinine Ratio Ilr1561 U Prot 9.0 mg/dl 12/10/2018 Random Urine Protein/Creatinine Ratio Dhr7603 U CREAT 126.0 mg/dL 12/10/2018 Random Urine Protein/Creatinine Ratio Bvg4681 R MTP/Creat Ratio 0.07 12/10/2018 Ferritin Ord22 FERRITIN 47.9 ng/mL 12/10/2018 Renal Exw272 NA 142 mEq/L 12/10/2018 Renal Vap962 K 4.3 mEq/L 12/10/2018 Renal Dvq069 CL 106 mEq/L 12/10/2018 Renal Rxw763 CO2 30.0 mEq/L 12/10/2018 Renal Lre588 ANION GAP 10 12/10/2018 Renal Fha452 Osmo 286 mOsmo 12/10/2018 Renal Tfm702 GLUCOSE 105 mg/dL 12/10/2018 Renal Npa059 BUN 20 mg/dL 12/10/2018 Renal Dtk423 Creat 1.4 mg/dL 12/10/2018 Renal Wht830 eGFR 52 ml/min/1.73m2 12/10/2018 Renal Jmi114 B/C Ratio 14.1 Ratio 12/10/2018 Renal Byb417 CALCIUM 9.7 mg/dL 12/10/2018 Renal Cvi254 PHOS 3.3 mg/dL 12/10/2018 Renal Ejw174 ALBUMIN 4.0 g/dL 12/10/2018 Urinalysis Ord28 U-Color [...] 17.8 % 12/10/2018 Vitamin D 25 Oh Bfh5143 VITAMIN D, 25 HYDROXY 27.29 ng/mL 12/10/2018 Pt Ktd6031 PT 23.1 seconds 11/05/2018 Pt Ddd5400 INR 2.1 11/05/2018 Pt Hmm9239 Low Intensity - 1.5-2.0 11/05/2018 Pt Nfi8002 Mod intensity - 2.0-3.0 11/05/2018 Pt Qbo3761 Hi intensity - 3.0-4.0 11/05/2018 Pt Exl0120 PT 29.8 seconds 08/17/2018 Pt Znm8704 INR 2.8 08/17/2018 Pt Pdu4303 Low Intensity - 1.5-2.0 08/17/2018 Pt Tkn3934 Mod intensity - 2.0-3.0 08/17/2018 Pt Iol7911 Hi intensity - 3.0-4.0 08/17/2018 Pt Hfh4912 PT 27.7 seconds 05/18/2018 Pt Csn2528 INR 2.6 05/18/2018 Pt God1732 Low Intensity - 1.5-2.0 05/18/2018 Pt Niu0106 Mod intensity - 2.0-3.0 05/18/2018 Pt Vdg3499 Hi intensity - 3.0-4.0 05/18/2018 Uric Acid [...] 30.9 pg 05/18/2018 Cbc With Differential Ord2 Tillman% 13.8 % 05/18/2018 Cbc With Differential Ord2 [...] 1.94 K/ul 05/18/2018 Cbc With Differential Ord2 Tillman ABS# 0.9 K/ul 05/18/2018 Cbc With Differential Ord2 Eos ABS# 0.4 K/ul 05/18/2018 Cbc With Differential Ord2 Baso ABS# 0.0 K/ul 05/18/2018 Random Urine Protein/Creatinine Ratio Omn0946 U Prot 7.0 mg/dl 05/18/2018 Random Urine Protein/Creatinine Ratio Cre0636 U CREAT 75.0 mg/dL 05/18/2018 Random Urine Protein/Creatinine Ratio Lds8978 R MTP/Creat Ratio 0.09 05/18/2018 Vitamin D 25 Oh Ynp8789 VITAMIN D, 25 HYDROXY 27.40 ng/mL 05/18/2018 Tibc Ord40 Iron 68 ug/dl 05/18/2018 Tibc Ord40 UIBC 308 ug/dL 05/18/2018 Tibc Ord40 TIBC 376 ug/dL 05/18/2018 Tibc Ord40 Fe-%Sat 18.1 % 05/18/2018 Parathyroid Hormone Wmd019 PTH 36.20 pg/ml 05/18/2018 Urinalysis Ord28 U-Color [...] hours from collection if refrigerated) 05/18/2018 Renal Mzm778 NA 141 mEq/L 05/18/2018 Renal Lzx736 K 4.0 mEq/L 05/18/2018 Renal Vrv441 CL 107 mEq/L 05/18/2018 Renal Fox929 CO2 27.0 mEq/L 05/18/2018 Renal Viz065 ANION GAP 11 05/18/2018 Renal Udq933 Osmo 282 mOsmo 05/18/2018 Renal Rrp699 GLUCOSE 83 mg/dL 05/18/2018 Renal Ait292 BUN 18 mg/dL 05/18/2018 Renal Vxi867 Creat 1.4 mg/dL 05/18/2018 Renal Fzd909 eGFR 55 ml/min/1.73m2 05/18/2018 Renal Kun877 B/C Ratio 13.3 Ratio 05/18/2018 Renal Tze562 CALCIUM 9.0 mg/dL 05/18/2018 Renal Hkq532 PHOS 2.9 mg/dL 05/18/2018 Renal Ggx895 ALBUMIN 4.0 g/dL 05/18/2018 Ferritin Ord22 FERRITIN [...] Metabolic Ord15 CALCIUM 9.2 mg/dL 03/23/2018 Pt Mpm2236 PT 29.0 seconds 03/13/2018 Pt Jne2835 INR 2.7 03/13/2018 Pt Lva3365 Low Intensity - 1.5-2.0 03/13/2018 Pt Iek4631 Mod intensity - 2.0-3.0 03/13/2018 Pt Gvz9092 Hi intensity - 3.0-4.0 03/13/2018 Pt Rfy2007 PT 31.6 seconds 03/04/2018 Pt Qgt8742 INR 3.0 03/04/2018 Pt Qpv6926 Low Intensity - 1.5-2.0 03/04/2018 Pt Gjj8805 Mod intensity - 2.0-3.0 03/04/2018 Pt Ugj4544 Hi intensity - 3.0-4.0 03/04/2018 Pt Hco8204 PT 33.3 seconds 01/29/2018 Pt Czg1908 INR 3.2 01/29/2018 Pt Qfn5719 Low Intensity - 1.5-2.0 01/29/2018 Pt Ydb1885 Mod intensity - 2.0-3.0 01/29/2018 Pt Kab4665 Hi intensity - 3.0-4.0 01/29/2018 Pt Hhr9769 PT 26.1 seconds 01/21/2018 Pt Bzd4172 INR 2.4 01/21/2018 Pt Tnx9411 Low Intensity - 1.5-2.0 01/21/2018 Pt Zoi2575 Mod intensity - 2.0-3.0 01/21/2018 Pt Jzr7621 Hi intensity - 3.0-4.0 01/21/2018 Pt Qbo3284 PT 35.7 seconds 01/09/2018 Pt Swl9289 INR 3.5 01/09/2018 Pt Tdx4740 Low Intensity - 1.5-2.0 01/09/2018 Pt Hxx4312 Mod intensity - 2.0-3.0 01/09/2018 Pt Unr0858 Hi intensity - 3.0-4.0 01/09/2018 Pt Bvb3372 PT 23.8 seconds 12/04/2017 Pt Hdu6389 INR 2.1 12/04/2017 Pt Wdg3320 Low Intensity - 1.5-2.0 12/04/2017 Pt Rvw1555 Mod intensity - 2.0-3.0 12/04/2017 Pt Dtf7358 Hi intensity - 3.0-4.0 12/04/2017 Pt Yxo2072 PT 32.3 seconds 11/12/2017 Pt Gnv5668 INR 3.1 11/12/2017 Pt Mfm7669 Low Intensity - 1.5-2.0 11/12/2017 Pt Yvm5968 Mod intensity - 2.0-3.0 11/12/2017 Pt Cpu8624 Hi intensity - 3.0-4.0 11/12/2017 Urinalysis Ord28 [...] hours from collection if refrigerated) 10/20/2017 Pt Pen2168 PT 16.6 seconds 10/20/2017 Pt Pbz6034 INR 1.4 10/20/2017 Pt Jov5322 Low Intensity - 1.5-2.0 10/20/2017 Pt Dwk1959 Mod intensity - 2.0-3.0 10/20/2017 Pt Lao6432 Hi intensity - 3.0-4.0 10/20/2017 Renal Msk184 NA 142 mEq/L 10/20/2017 Renal Vpo254 K 4.5 mEq/L 10/20/2017 Renal Orj680 CL 107 mEq/L 10/20/2017 Renal Uih107 CO2 28.0 mEq/L 10/20/2017 Renal Ozw123 ANION GAP 12 10/20/2017 Renal Elu236 Osmo 288 mOsmo 10/20/2017 Renal Tzs280 GLUCOSE 96 mg/dL 10/20/2017 Renal Wji214 BUN 27 mg/dL 10/20/2017 Renal Xks883 Creat 1.6 mg/dL 10/20/2017 Renal Rfl895 eGFR 46 ml/min/1.73m2 10/20/2017 Renal Qmu498 B/C Ratio 17.2 Ratio 10/20/2017 Renal Gxw657 CALCIUM 9.4 mg/dL 10/20/2017 Renal Loy798 PHOS 3.0 mg/dL 10/20/2017 Renal Feu978 ALBUMIN 4.2 g/dL 10/20/2017 Pt Eql6130 PT 31.2 seconds 10/17/2017 Pt Skl8678 INR 3.0 10/17/2017 Pt Ggy0448 Low Intensity - 1.5-2.0 10/17/2017 Pt Ejk1125 Mod intensity - 2.0-3.0 10/17/2017 Pt Quo5949 Hi intensity - 3.0-4.0 10/17/2017 Comp Metabolic Qco622 NA 139 mEq/L 05/08/2017 Comp Metabolic Ihk897 K 4.1 mEq/L 05/08/2017 Comp Metabolic Xxe785 CL 103 mEq/L 05/08/2017 Comp Metabolic Ssn690 CO2 28.0 mEq/L 05/08/2017 Comp Metabolic Ebu920 ANION GAP 12 05/08/2017 Comp Metabolic Ahr739 GLUCOSE 75 mg/dL 05/08/2017 Comp Metabolic Hss151 Creat 1.3 mg/dL 05/08/2017 Comp Metabolic Gon870 eGFR 55 ml/min/1.73m2 05/08/2017 Comp Metabolic New913 BUN 20 mg/dL 05/08/2017 Comp Metabolic Uxc931 B/C Ratio 14.9 Ratio 05/08/2017 Comp Metabolic Ufx387 CALCIUM 8.8 mg/dL 05/08/2017 Comp Metabolic Aag848 ALK PHOS 51 U/L 05/08/2017 Comp Metabolic Aze997 AST(SGOT) 30 U/L 05/08/2017 Comp Metabolic Vea770 ALT(SGPT) 31 U/L 05/08/2017 Comp Metabolic Pcn533 BILI T 0.9 mg/dL 05/08/2017 Comp Metabolic Kxk581 ALBUMIN 4.0 g/dL 05/08/2017 Comp Metabolic Ing236 TPRO 6.5 g/dL 05/08/2017 Comp Metabolic Vsq195 GLOB 2.6 g/dL 05/08/2017 Comp Metabolic Dcw256 A/G Ratio 1.5 Ratio 05/08/2017 Comp Metabolic Lkp080 Osmo 279 mOsmo 05/08/2017 Cbc With Differential [...] 31.5 pg 05/08/2017 Cbc With Differential Ord2 Tillman% 13.5 % 05/08/2017 Cbc With Differential Ord2 [...] 1.29 K/ul 05/08/2017 Cbc With Differential Ord2 Tillman ABS# 1.1 K/ul 05/08/2017 Cbc With Differential Ord2 Eos ABS# 0.2 K/ul 05/08/2017 Cbc With Differential Ord2 Baso ABS# 0.0 K/ul 05/08/2017 Pt Kyo9966 PT 22.7 seconds 11/22/2016 Pt Xhq1140 INR 2.1 11/22/2016 Pt Lzz3485 Low Intensity - 1.5-2.0 11/22/2016 Pt Jou0652 Mod intensity - 2.0-3.0 11/22/2016 Pt Kky2095 Hi intensity - 3.0-4.0 11/22/2016 Pt Oyx4589 PT 24.4 seconds 10/25/2016 Pt Tqh6541 INR 2.3 10/25/2016 Pt Mbt3926 Low Intensity - 1.5-2.0 10/25/2016 Pt Lyk0418 Mod intensity - 2.0-3.0 10/25/2016 Pt Hik5305 Hi intensity - 3.0-4.0 10/25/2016 Pt Cce4731 PT 23.5 seconds 09/04/2016 Pt Kih7569 INR 2.2 09/04/2016 Pt Gpl6864 Low Intensity - 1.5-2.0 09/04/2016 Pt Shm6520 Mod intensity - 2.0-3.0 09/04/2016 Pt Dbg0049 Hi intensity - 3.0-4.0 09/04/2016 Pt Jaf4008 PT 26.1 seconds 07/09/2016 Pt Zgc9556 INR 2.6 07/09/2016 Pt Bur6711 Low Intensity - 1.5-2.0 07/09/2016 Pt Btr3377 Mod intensity - 2.0-3.0 07/09/2016 Pt Dtr1938 Hi intensity - 3.0-4.0 07/09/2016 Pt Vkt9729 PT 19.4 seconds 06/24/2016 Pt Ugj2132 INR 1.7 06/24/2016 Pt Exx4311 Low Intensity - 1.5-2.0 06/24/2016 Pt Hgb7182 Mod intensity - 2.0-3.0 06/24/2016 Pt Pbu3464 Hi intensity - 3.0-4.0 06/24/2016 Pt Ams4843 PT 28.9 seconds 04/26/2016 Pt Lnh0173 INR 2.9 04/26/2016 Pt Grh2027 Low Intensity - 1.5-2.0 04/26/2016 Pt Yvx1558 Mod intensity - 2.0-3.0 04/26/2016 Pt Thh7028 Hi intensity - 3.0-4.0 04/26/2016 Tsh Ord6 hTSH II 1.21 uIU/mL 02/29/2016 Pt Jkp3153 PT 21.8 seconds 02/29/2016 Pt Hnm2481 INR 2.0 02/29/2016 Pt Wnw4327 Low Intensity - 1.5-2.0 02/29/2016 Pt Ran7108 Mod intensity - 2.0-3.0 02/29/2016 Pt Cvq3077 Hi intensity - 3.0-4.0 02/29/2016 Lipid Ord30 [...] Ord2 RDW 16.2 % 06/30/2015 Comp Metabolic Klp387 NA 138 mEq/L 06/30/2015 Comp Metabolic Mzx522 K 4.8 mEq/L 06/30/2015 Comp Metabolic Qvg853 CL 107 mEq/L 06/30/2015 Comp Metabolic Hcb673 CO2 27.0 mEq/L 06/30/2015 Comp Metabolic Tcc244 ANION GAP 9 06/30/2015 Comp Metabolic Jaw935 GLUCOSE 98 mg/dL 06/30/2015 Comp Metabolic Jtm307 Creat 1.8 mg/dL 06/30/2015 Comp Metabolic Jdc068 eGFR 40 ml/min/1.73m2 06/30/2015 Comp Metabolic Caw949 BUN 20 mg/dL 06/30/2015 Comp Metabolic Oco482 B/C Ratio 11.1 Ratio 06/30/2015 Comp Metabolic Hkr256 CALCIUM 9.1 mg/dL 06/30/2015 Comp Metabolic Ryh154 ALK PHOS 39 U/L 06/30/2015 Comp Metabolic Zsz651 AST(SGOT) 21 U/L 06/30/2015 Comp Metabolic Lix123 ALT(SGPT) 23 U/L 06/30/2015 Comp Metabolic Ken937 BILI T 0.5 mg/dL 06/30/2015 Comp Metabolic Joc985 ALBUMIN 4.0 g/dL 06/30/2015 Comp Metabolic Zli878 TPRO 6.6 g/dL 06/30/2015 Comp Metabolic Lpf741 GLOB 2.6 g/dL 06/30/2015 Comp Metabolic Qal863 A/G Ratio 1.5 Ratio 06/30/2015 Comp Metabolic Wrk116 Osmo 278 mOsmo 06/30/2015 Pt Cwj4180 PT 26.1 seconds 06/30/2015 Pt Qio1197 INR 2.5 06/30/2015 Pt Vll0891 Low Intensity - 1.5-2.0 06/30/2015 Pt Mum4497 Mod intensity - 2.0-3.0 06/30/2015 Pt Loy2117 Hi intensity - 3.0-4.0 06/30/2015 Review of [...] Procedure Codes Date DESTRUCT PREMALG LESION CPT-4: 90292 04/29/2019 DESTRUCT PREMALG LESION CPT-4: 38613 12/31/2018 DESTRUCT PREMALG LES 2-14 CPT-4: 55880 12/31/2018 OCCULT BLOOD FECES CPT- 4: 57951 04/08/2018 PPPS, SUBSEQ VISIT CPT- 4: G0439 04/03/2018 PPPS, SUBSEQ VISIT CPT- 4: G0439 10/31/2017 PRESCRIP TRANSMIT VIA ERX SY CPT-4: G8553 09/22/2017 THER/PROPH/DIAG INJ SC/IM CPT-4: 33221 01/21/2017 TRIAMCINOLONE ACET INJ NOS CPT-4: J3301 01/21/2017 THER/PROPH/DIAG INJ SC/IM CPT-4: 16233 12/30/2016 ROCEPHIN, PER 250 MG CPT- 4: J0696 12/30/2016 PPPS, SUBSEQ VISIT CPT- 4: G0439 10/25/2016 ROCEPHIN, PER 250 MG CPT- 4: J0696 06/24/2016 THER/PROPH/DIAG INJ SC/IM CPT-4: 98671 06/24/2016 Vital Signs Date Vital 04/29/2019 Blood Pressure 1: 158/80 Code: 8480-6 BMI: 31.0 Code: 39517-6 Heart Rate 1: 58 bpm Height: 5'8" SpO2: 96% Weight: 204 lbs 12/31/2018 Blood Pressure 1: 140/80 Code: 8480-6 BMI: 29.0 Code: 19100-5 Heart Rate 1: 86 bpm Height: 5'8" SpO2: 97% Weight: 191 lbs 12/23/2018 Blood Pressure 1: 140/68 Code: 8480-6 BMI: 29.3 Code: 39977-9 Heart Rate 1: 70 bpm Height: 5'8" SpO2: 97% Weight: 193 lbs 04/03/2018 Blood Pressure 1: 128/72 Code: 8480-6 BMI: 29.8 Code: 81667-9 Heart Rate 1: 60 bpm Height: 5'8" SpO2: 96% Weight: 196 lbs 03/31/2018 Blood Pressure 1: 128/76 Code: 8480-6 BMI: 29.8 Code: 35789-3 Heart Rate 1: 56 bpm Height: 5'8" SpO2: 98% Weight: 196 lbs 11/26/2017 Blood Pressure 1: 156/76 Code: 8480-6 BMI: 29.6 Code: 62097-0 Heart Rate 1: 57 bpm Height: 5'8" SpO2: 98% Weight: 195 lbs 10/31/2017 Blood Pressure 1: 136/74 Code: 8480-6 BMI: 29.5 Code: 56520-4 Heart Rate 1: 56 bpm Height: 5'8" SpO2: 95% Waist Measure (cm): 91 cm Weight: 194 lbs 10/07/2017 Blood Pressure 1: 136/72 Code: 8480-6 BMI: 30.3 Code: 59061-9 Heart Rate 1: 58 bpm Height: 5'8" SpO2: 96% Weight: 199 lbs 09/22/2017 Blood Pressure 1: 138/78 Code: 8480-6 BMI: 30.4 Code: 40136-9 Heart Rate 1: 60 bpm Height: 5'8" SpO2: 98% Temperature: 36.6 (C) / 97.9 (F) Weight: 200 lbs 05/08/2017 Blood Pressure 1: 128/80 Code: 8480-6 BMI: 30.0 Code: 50403-5 Heart Rate 1: 75 bpm Height: 5'8" SpO2: 98% Weight: 197 lbs 03/25/2017 Blood Pressure 1: 150/80 Code: 8480-6 BMI: 30.1 Code: 25384-1 Heart Rate 1: 53 bpm Height: 5'8" SpO2: 98% Weight: 198 lbs 01/21/2017 Blood Pressure 1: 156/88 Code: 8480-6 BMI: 29.8 Code: 81049-8 Heart Rate 1: 95 bpm Height: 5'8" SpO2: 98% Temperature: 36.9 (C) / 98.4 (F) Weight: 196 lbs 12/30/2016 Blood Pressure 1: 122/74 Code: 8480-6 BMI: 29.8 Code: 86253-0 Heart Rate 1: 60 bpm Height: 5'8" SpO2: 96% Temperature: 37.1 (C) / 98.8 (F) Weight: 196 lbs 12/26/2016 Blood Pressure 1: 142/74 Code: 8480-6 BMI: 29.8 Code: 86406-8 Heart Rate 1: 58 bpm Height: 5'8" SpO2: 96% Temperature: 36.7 (C) / 98.0 (F) Weight: 196 lbs 12/02/2016 Blood Pressure 1: 128/78 Code: 8480-6 BMI: 30.3 Code: 02994-2 Heart Rate 1: 49 bpm Height: 5'8" SpO2: 98% Temperature: 36.5 (C) / 97.7 (F) Weight: 199 lbs 11/21/2016 Blood Pressure 1: 130/68 Code: 8480-6 BMI: 30.3 Code: 85373-3 Heart Rate 1: 54 bpm Height: 5'8" SpO2: 98% Weight: 199 lbs 10/25/2016 Blood Pressure 1: 150/92 Code: 8480-6 BMI: 29.8 Code: 22779-4 Heart Rate 1: 54 bpm Height: 5'8" SpO2: 97% Waist Measure (cm): 97 cm Weight: 196 lbs 10/23/2016 Blood Pressure 1: 150/92 Code: 8480-6 BMI: 29.9 Code: 45514-0 Heart Rate 1: 54 bpm Height: 5'8" SpO2: 98% Weight: 196 lbs 8 oz 07/29/2016 Blood Pressure 1: 144/72 Code: 8480-6 BMI: 30.3 Code: 17476-9 Heart Rate 1: 54 bpm Height: 5'8" SpO2: 98% Weight: 199 lbs 06/24/2016 Blood Pressure 1: 132/78 Code: 8480-6 BMI: 29.5 Code: 28099-6 Heart Rate 1: 59 bpm Height: 5'8" SpO2: 94% Weight: 194 lbs 02/21/2016 Blood Pressure 1: 138/84 Code: 8480-6 BMI: 30.3 Code: 07568-1 Heart Rate 1: 64 bpm Height: 5'8" SpO2: 95% Weight: 199 lbs 10/18/2015 Blood Pressure 1: 154/84 Code: 8480-6 Blood Pressure 1: 138/72 Code: 8480-6 BMI: 30.4 Code: 51348-2 Heart Rate 1: 68 bpm Height: 5'8" SpO2: 97% Weight: 200 lbs 05/02/2015 Blood Pressure 1: 114/64 Code: 8480-6 BMI: 29.0 Code: 79474-3 Heart Rate 1: 62 bpm Height: 5'8" [...] limb, including hip[ICD10: C44.722] Leidy Husain MD, [facility] CPT-4: 30596 04/29/2019 [id number] EST. PATIENT, LEVEL III Diagnosis: Diverticulitis of small intestine with perforation and abscess without bleeding[ICD10: K57.00] Gabrielle Husain MD, [facility] CPT-4: 17784 12/23/2018 ([id number]) [id number] EST. PATIENT, LEVEL III Diagnosis: Low back pain[ICD10: M54.5] Diagnosis: Muscle spasm of back[ICD10: M62.830] Leidy Husain MD, [facility] CPT-4: 97347 03/31/2018 [id number]) [id number] EST. PATIENT, LEVEL III Diagnosis: Actinic keratosis[ICD10: L57.0] Diagnosis: Other hypertrophic disorders of the skin[ICD10: L91.8] Amanda Husain MD, [facility] CPT-4: 64796 11/26/2017 ([id number]) 39810 EST. PATIENT, LEVEL IV Diagnosis: Essential (primary) hypertension[ICD10: I10] Diagnosis: Mild cognitive impairment, so stated[ICD10: G31.84] Amanda Husain MD, [facility] CPT-4: 05622 10/07/2017 ([id number]) 79762 EST. PATIENT, LEVEL III Diagnosis: Pneumonia due to other streptococci[ICD10: J15.4] Diagnosis: Cough[ICD10: R05] Amanda Husain MD, [facility] CPT-4: 52836 09/22/2017 25595 EST. PATIENT, LEVEL IV Diagnosis: Left lower quadrant pain[ICD10: R10.32] Diagnosis: Other fatigue[ICD10: R53.83] Gabrielle Husain MD, [facility] CPT-4: 48938 05/08/2017 ([id number]) 04025 EST. PATIENT, LEVEL III Diagnosis: Essential (primary) hypertension[ICD10: I10] Amanda Husain MD, [facility] CPT-4: 10638 03/25/2017 ([id number]) 55115 EST. PATIENT, LEVEL III Diagnosis: Cough[ICD10: R05] Diagnosis: Allergic rhinitis due to pollen[ICD10: J30.1] Leidy Husain MD, [facility] CPT-4: 20150 01/21/2017 11297 EST. PATIENT, LEVEL III Diagnosis: Other allergic rhinitis[ICD10: J30.89] Diagnosis: Cough[ICD10: R05] Gabrielle Husain MD, [facility] CPT-4: 77994 12/30/2016 ([id number]) 76226 EST. PATIENT, LEVEL III Diagnosis: Cough[ICD10: R05] Diagnosis: Pneumonia, unspecified organism[ICD10: J18.9] Leidy Husain MD, [facility] CPT-4: 50828 12/26/2016 ([id number]) 99486 EST. PATIENT, LEVEL III Diagnosis: Pneumonia due to other streptococci[ICD10: J15.4] Diagnosis: Cough[ICD10: R05] Amanda Husain MD, [facility] CPT-4: 81168 12/02/2016 ([id number]) 87274 EST. PATIENT, LEVEL III Diagnosis: Essential (primary) hypertension[ICD10: I10] Amanda Husain MD, [facility] CPT-4: 37312 11/21/2016 ([id number]) 94945 EST. PATIENT, LEVEL IV Diagnosis: Essential (primary) hypertension[ICD10: I10] Diagnosis: Mixed hyperlipidemia[ICD10: E78.2] Amanda Husain MD [facility] CPT- 4: 65331 10/23/2016 21344 EST. PATIENT, LEVEL IV Diagnosis: Other allergic rhinitis[ICD10: J30.89] Diagnosis: Cough[ICD10: R05] Gabrielle Husain MD [facility] CPT-4: 56912 07/29/2016 ([id number]) Miscellaneous no charge Diagnosis: Pneumonia, unspecified organism[ICD10: J18.9] Gabrielle Husain MD, [facility] CPT-4: 35332 06/27/2016 ([id number]) 46386 EST. PATIENT, LEVEL IV Diagnosis: Essential (primary) hypertension[ICD10: I10] Diagnosis: Pneumonia, unspecified organism[ICD10: J18.9] Diagnosis: Cough[ICD10: R05] Diagnosis: Mixed hyperlipidemia[ICD10: E78.2] Amanda Husain MD, [facility] CPT- 4: 60387 06/24/2016 ([id number]) 28048 EST. PATIENT, LEVEL IV Diagnosis: Mixed hyperlipidemia[ICD10: E78.2] Diagnosis: Essential (primary) hypertension[ICD10: I10] Diagnosis: Gastro-esophageal reflux disease without esophagitis[ICD10: K21.9] Amanda Husain MD [facility] CPT-4: 20802 02/21/2016 ([id number]) 85609 EST. 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 04/29/2019 Patient Education: Patient Medication Summary Completed 04/29/2019 Visit Plan: Actinic Keratosis - treated with cryotherapy x 3, pt advised on how to appropriately care for the lesion. Call if not improved after thorough healing - apply neosporin to skin lesions. 12/31/2018 Appointment: Amanda Husain WPtel: [phone] [phone] (30 min) Complex 12/31/2018 Patient Education: Patient Medication Summary Completed 12/31/2018 Visit Plan: Diverticulitis - rx for antibiotic sent to pt's pharmacy - pt advised to avoid seeds, nuts, popcorn, or any other food which has been proven to upset the pt's stomach. 12/23/2018 Appointment: Gabrielle Corona WPtel: [phone] [phone] (15 min) Moderate 12/23/2018 Patient Education: Patient Medication Summary Completed 12/23/2018 Appointment: Gabrielle Corona WPtel: [phone] [facility] (30 min) Complex 12/16/2018 Appointment: Lab Draw [...] not improve. 03/31/2018 Appointment: Leidy Angulo WPtel: [address] [place], [place] [phone] (15 min) Moderate 03/31/2018 Patient Education: Patient Medication Summary Completed 03/31/2018 Visit Plan: Wound Instructions - Pt was instructed to keep the wound clean, wash with antibacterial soap, use triple antibiotic ointment, call if redness, pustular drainage, or any other acute concerns. 11/26/2017 Appointment: Amanda Husain WPtel: [address] [place] [address] Surgical Procedure 11/26/2017 Patient Education: Patient Medication [...] care surrogate. 10/31/2017 Appointment: Leidy Angulo WPtel: [address] [place], [place] [phone] [facility] - Annual Wellness Visit 10/31/2017 Patient [...] memory loss. 10/07/2017 Appointment: Amanda Husain WPtel: [phone] [facility] (30 min) Complex 10/07/2017 Patient Education: Patient Medication Summary Completed 10/07/2017 Patient Education: Obesity Completed 10/07/2017 Patient Education: Hypertension Completed 10/07/2017 Visit Plan: Pneumonia - Pt has been diagnosed with pneumonia by physical exam. Antibiotics have been ordered. The pt is aware of the diagnosis and the need for acute treatment of this illness. 09/22/2017 Appointment: Amanda Husain WPtel: [phone] [phone] (15 min) Moderate 09/22/2017 Patient Education: Patient [...] concerns. 05/08/2017 Appointment: Gabrielle Corona WPtel: [phone] [phone] (30 min) Complex 05/08/2017 Patient Education: [...] 10mg daily. 03/25/2017 Appointment: Amanda Husain WPtel: [facility]5 [facility] (15 min) Moderate 03/25/2017 Patient Education: Patient Medication Summary Completed 03/25/2017 Appointment: Leidy Angulo WPtel: [address] [place], [place] [phone] (15 min) Moderate 01/31/2017 Visit Plan: URI/Allergies - Pt advised to increase fluids, vitamin C. Discussed natural and expected course of this diagnosis and need to alert me if symptoms do not follow expected course, or if any worse. RX sent to patient's pharmacy. 01/21/2017 Appointment: Leidy Angulo WPtel: [phone] (15 min) Moderate 01/21/2017 Patient Education: Patient [...] the medication. 12/30/2016 Appointment: Leidy Angulo WPtel: [address] [place], [place] [phone] [place] (15 min) Moderate 12/30/2016 Appointment: Gabrielle Corona WPtel: [address] [place], [place] [phone] [place] (30 min) Complex 12/30/2016 Patient Education: Patient Medication Summary Completed 12/30/2016 Visit Plan: Pneumonia - Pt has been diagnosed with pneumonia by physical exam. Antibiotics ordered, pt advised on starting a probiotic, and to have his inr checked on Friday. The pt is aware of the diagnosis and the need for acute treatment of this illness. Discussed with Dr Hsuain-hold amiodarone while on the levaquin. 12/26/2016 Appointment: Leidy Angulol: [phone] [phone] (15 min) Moderate 12/26/2016 Patient Education: Patient [...] home. 11/21/2016 Appointment: Amanda Husain WPtel: [phone] [phone] (15 min) Moderate 11/21/2016 Patient Education: Patient [...] surrogate. 10/25/2016 [phone] [facility] - Annual Wellness Visit 10/25/2016 Patient Education: [...] medications. 10/23/2016 Appointment: [phone] (15 min) Moderate 10/23/2016 Patient Education: Patient [...] any concerns. 07/29/2016 Appointment: [phone] (15 min) Moderate 07/29/2016 Patient Education: Patient [...] to medications. 06/24/2016 Appointment: Amanda Husain WPtel: [address] [place], [place] [id number] (15 min) Moderate 06/24/2016 Patient Education: Patient [...] not improving. 02/21/2016 Appointment: Amanda Husain WPtel: [facility] (15 min) Moderate 02/21/2016 Patient Education: Patient [...] Care Plan: COMPLETE CBC AUTOMATED LOINC : 70771-4 Ordered 05/02/2015 Care Plan: ASSAY OF TROPONIN [...] symptoms are not controlled with the medication. [employer] or [facility] - take three times daily x 7 days get a PT/INR check on of this week . Pneumonia - Pt has been diagnosed with pneumonia by physical exam. Antibiotics ordered, pt advised on starting a probiotic, and to have his inr checked on of this week. The pt is aware of the diagnosis and the need for acute treatment of this illness. . Actinic Keratosis - treated with cryotherapy x 3, pt advised on how to appropriately care for the lesion. Call if not improved after thorough healing - apply neosporin to skin lesions. . Medicare Exam - today we discussed [...] assure normal liver response to medications. . Nonhealing skin lesion -right lower leg -refer to Dr Andrade for biopsy/removal AK-cryotherapy - three cryotherapy on each lesion, dressed with neosporin and monitor lesions. . Pneumonia - Pt has been diagnosed [...] or with any questions or concerns. . Diverticulitis - rx for antibiotic sent to pt's pharmacy - pt advised to avoid seeds, nuts, popcorn, or any other food which has been proven to upset the pt's stomach. . Medicare Exam - today we discussed [...] Ongoing dry, nonproductive cough - will stop EJFF inhibitor - pt is to monitor blood pressures and HR and notify clinic with any concerns.
--- OUTSIDE RECORDS SUMMARY | 2019-05-19 10:34 | XMS REPORT | CCD ---
Author Author Amanda Celestin MD, [facility] Address [address] [place] [address] Phone Care Team Providers Care Wood Planer Name Role Phone PP Unavailable CCM Unavailable Summary Purpose Interface Exchange Insurance Providers Payer name Policy type / Coverage type Covered democrat ID Effective Begin Date Effective End Date WPS Medicare Part B [id number] Unknown [employer] Life Insurance [id number] Unknown Family history Brother Diagnosis Age At [...] Unknown Retired 05/02/[address]: 5817664 Former smoker Quit in 1966 05/02/2015 Number [...] ICD-9: 702.0 ICD-10: L57.0 Active 11/26/2017 Unknown Diverticulitis of small intestine with perforation [...] keratosis ICD-9: 702.0 ICD-10: L57.0 11/26/2017 Active Diverticulitis of small intestine with perforation [...] Instructions Zithromax Z-Carlo 250 mg tablet RxNorm: 663958 2 Tablet(s) PO on 1 st day then 1 daily x 4 days ZPACK X 1 01/15/2019 No Stop Date Active metronidazole 500 mg tablet RxNorm: 692850 1 Tablet(s) PO TID 12/23/2018 01/01/2019 Inactive omeprazole 20 mg capsule,delayed release RxNorm: 226994 TAKE 1 CAPSULE BY MOUTH ONCE DAILY 12/07/2018 No Stop Date Active metoprolol tartrate 25 mg tablet RxNorm: 843475 Tablet(s) TAKE 1 TABLET BY MOUTH TWICE DAILY 10/16/2018 No Stop Date Active metoprolol tartrate 25 mg tablet RxNorm: 121003 TAKE 1 TABLET BY MOUTH TWICE DAILY 07/13/2018 10/15/2018 Inactive Trilipix 135 mg capsule,delayed release RxNorm: 082765 1 Capsule(s) PO daily 06/17/2018 10/14/2018 Inactive ramipril 10 mg capsule RxNorm: 787938 TAKE ONE CAPSULE BY MOUTH ONCE DAILY 06/15/2018 No Stop Date Active omeprazole 20 mg capsule,delayed release RxNorm: 763331 Capsule(s) TAKE ONE CAPSULE BY MOUTH ONCE DAILY 06/03/2018 No Stop Date Active omeprazole 20 mg capsule,delayed release RxNorm: 081866 Capsule(s) TAKE ONE CAPSULE BY MOUTH ONCE DAILY 06/02/2018 06/02/2018 Inactive metoprolol tartrate 25 mg tablet RxNorm: 559750 TAKE ONE TABLET BY MOUTH TWICE DAILY 02/16/2018 07/12/2018 Inactive omeprazole 20 mg capsule,delayed release RxNorm: 966936 TAKE ONE CAPSULE BY MOUTH ONCE DAILY 01/05/2018 06/01/2018 Inactive metoprolol tartrate 25 mg tablet RxNorm: 006911 TAKE ONE TABLET BY MOUTH TWICE DAILY 10/27/2017 02/15/2018 Inactive azithromycin 250 mg tablet RxNorm: 780156 1 Tablet(s) PO UD 2 tabs on day #1, then 1 pill daily x 4 days 09/22/2017 11/25/2017 Inactive omeprazole 20 mg capsule,delayed release RxNorm: 131721 TAKE ONE CAPSULE BY MOUTH ONCE DAILY 06/16/2017 12/12/2017 Inactive metronidazole 500 mg tablet RxNorm: 793179 1 Tablet(s) PO TID 05/08/2017 05/14/2017 Inactive ramipril 10 mg capsule RxNorm: 277321 1 Capsule(s) PO daily 03/25/2017 03/19/2018 Inactive Kenalog 40 mg/mL suspension for injection RxNorm: 6795307 Milliliter(s) Inj 01/21/2017 01/21/2017 Inactive ceftriaxone 500 mg solution for injection RxNorm: 5068525 Inj 12/30/2016 12/30/2016 Inactive Phenergan with Codeine Syrup RxNorm: 5-10 Milliliter(s) PO Q6 PRN 12/26/2016 No Stop Date Active Levaquin 500 mg tablet RxNorm: 500921 1 Tablet(s) PO daily 12/26/2016 01/01/2017 Inactive Tessalon Perles 100 mg capsule RxNorm: 423385 1 Capsule(s) PO TID as needed 12/26/2016 01/04/2017 Inactive prednisone 20 mg tablet RxNorm: 418188 1 Tablet(s) PO BID 12/26/2016 12/30/2016 Inactive omeprazole 20 mg capsule,delayed release RxNorm: 528791 TAKE ONE CAPSULE BY MOUTH ONCE DAILY 12/16/2016 06/13/2017 Inactive cefdinir 300 mg capsule RxNorm: 624668 1 Capsule(s) PO BID 12/02/2016 12/08/2016 Inactive azithromycin 250 mg tablet RxNorm: 062075 Tablet(s) 2 tabs on day #1, then one tab PO daily x 4 more days 12/02/2016 12/25/2016 Inactive metoprolol tartrate 25 mg tablet RxNorm: 194557 1 Tablet(s) PO BID 10/23/2016 10/17/2017 Inactive metoprolol tartrate 25 mg tablet RxNorm: 802858 1 Tablet(s) PO BID 10/23/2016 10/22/2016 Inactive ceftriaxone 500 mg solution for injection RxNorm: 8486842 Inj 06/24/2016 06/24/2016 Inactive cefdinir 300 mg capsule RxNorm: 624882 1 Capsule(s) PO BID 06/24/2016 06/30/2016 Inactive omeprazole 20 mg capsule,delayed release RxNorm: 683960 TAKE ONE CAPSULE BY MOUTH DAILY 06/07/2016 12/03/2016 Inactive omeprazole 20 mg capsule,delayed release RxNorm: 948026 TAKE ONE CAPSULE BY MOUTH DAILY 01/29/2016 05/27/2016 Inactive metoprolol tartrate 50 mg tablet RxNorm: 373006 Tablet(s) TAKE ONE TABLET BY MOUTH DAILY 10/11/2015 10/10/2015 Inactive metoprolol tartrate 50 mg tablet RxNorm: 230482 TAKE ONE TABLET BY MOUTH DAILY 10/11/2015 10/22/2016 Inactive omeprazole 20 mg capsule,delayed release RxNorm: 923754 TAKE ONE CAPSULE BY MOUTH DAILY 08/28/2015 01/24/2016 Inactive metoprolol tartrate 50 mg tablet RxNorm: 832784 TAKE ONE TABLET BY MOUTH DAILY 08/11/2015 10/09/2015 Inactive metoprolol tartrate 50 mg tablet RxNorm: 922877 1 Tablet(s) PO daily 06/14/2015 08/10/2015 Inactive omeprazole 20 mg capsule,delayed release RxNorm: 902937 1 Capsule(s) PO daily 05/29/2015 08/26/2015 Inactive omeprazole 20 mg capsule,delayed release RxNorm: 870741 1 Capsule(s) PO daily 05/29/2015 05/28/2015 Inactive metronidazole 500 mg tablet RxNorm: 243605 1 Tablet(s) PO TID 05/02/2015 05/08/2015 Inactive finasteride 5 mg tablet RxNorm: 579627 1 Tablet(s) PO daily No Start Date Active warfarin 5 mg tablet RxNorm: 115604 1 Tablet(s) PO daily No Start Date Active Aspirin Childrens 81 mg chewable tablet RxNorm: 829691 1 Tablet(s) PO daily No Start Date Active amiodarone 200 mg tablet RxNorm: 789756 1 Tablet(s) PO daily No Start Date Active vitamin E (dl, acetate) 1,000 unit capsule RxNorm: 556360 1 Capsule(s) PO daily No Start Date Active atorvastatin 80 mg tablet RxNorm: 713683 1 Tablet(s) PO daily No Start Date Active Fish Oil 120 mg-180 mg capsule RxNorm: 506065 1 Capsule(s) PO BID No Start Date 10/30/2017 Inactive metoprolol tartrate 50 mg tablet RxNorm: 237688 1 Tablet(s) PO daily No Start Date 06/13/2015 Inactive Zetia 10 mg tablet RxNorm: 573298 1 Tablet(s) PO daily No Start Date 10/17/2015 Inactive ramipril 5 mg capsule RxNorm: 197708 1 Capsule(s) PO daily No Start Date 03/24/2017 Inactive Tessalon Perles 100 mg capsule RxNorm: 167071 1 Capsule(s) PO TID as needed No Start Date 12/25/2016 Inactive omeprazole 20 mg capsule,delayed release RxNorm: 974802 1 Capsule(s) PO daily No Start Date 05/28/2015 Inactive Zithromax Z-Carlo 250 mg tablet RxNorm: 826449 2 Tablet(s) PO on 1 st day then 1 daily x 4 days ZPACK X 1 No Start Date 01/14/2019 Inactive Trilipix 135 mg capsule,delayed release RxNorm: 978402 1 Capsule(s) PO daily No Start Date 06/16/2018 Inactive Centrum Silver tablet RxNorm: 1 Tablet(s) PO daily No Start Date 10/30/2017 Inactive Medication Administered Medication Codes Instructions Start Date Status Kenalog 40 mg/mL suspension for injection RxNorm: 1229972 Milliliter 01/21/2017 No longer Active ceftriaxone 500 mg solution for injection RxNorm: 1094233 12/30/2016 No longer Active ceftriaxone 500 mg solution for injection RxNorm: 8186832 06/24/2016 No longer Active Immunizations Vaccine Codes Date Status Influenza CVX: 141 09/11/2015 completed Pneumococcal (Adult) CVX: 33 05/02/2014 completed Assessments Condition Codes Effective Dates Actinic keratosis ICD-10: L57.0 ICD-9: 702.0 12/31/2018 Diverticulitis of small intestine with perforation and [...] Visit Reason For Visit Effective Dates Notes mole check 12/31/2018 abdominal pain 12/23/2018 Annual [...] Metabolic Ord15 CALCIUM 9.0 mg/dL 04/19/2019 Pt Cmr4468 PT 32.2 seconds 04/15/2019 Pt Xdf2981 INR 3.2 04/15/[address]25 Low Intensity - 1.5-2.0 04/15/2019 Pt Mdl0340 Mod intensity - 2.0-3.0 04/15/2019 Pt Jpz5471 Hi intensity - 3.0-4.0 04/15/2019 Pt Mso2210 PT 20.2 seconds 03/19/2019 Pt Zbn4336 INR 1.8 03/19/2019 Pt Nja7932 Low Intensity - 1.5-2.0 03/19/2019 Pt Cva3096 Mod intensity - 2.0-3.0 03/19/2019 Pt Qmk9520 Hi intensity - 3.0-4.0 03/19/2019 Pt Dvw7222 PT 29.7 seconds 03/03/2019 Pt Tak1253 INR 2.9 03/03/2019 Pt Amg6949 Low Intensity - 1.5-2.0 03/03/2019 Pt Szg2419 Mod intensity - 2.0-3.0 03/03/2019 Pt Yju1895 Hi intensity - 3.0-4.0 03/03/2019 Pt Lfu3355 PT 27.9 seconds 02/24/2019 Pt Cvd3122 INR 2.7 02/24/2019 Pt Dto3927 Low Intensity - 1.5-2.0 02/24/2019 Pt Vgm3428 Mod intensity - 2.0-3.0 02/24/2019 Pt Doh0862 Hi intensity - 3.0-4.0 02/24/2019 Pt Ycf4954 PT 16.6 seconds 02/15/2019 Pt Oai6329 INR 1.4 02/15/2019 Pt Vpq9433 Low Intensity - 1.5-2.0 02/15/2019 Pt Hcr6611 Mod intensity - 2.0-3.0 02/15/2019 Pt Awa8983 Hi intensity - 3.0-4.0 02/15/2019 Pt Qtz6065 PT 16.6 seconds 02/05/2019 Pt Wfa7479 INR 1.4 02/05/2019 Pt Dab5785 Low Intensity - 1.5-2.0 02/05/2019 Pt Uhk1614 Mod intensity - 2.0-3.0 02/05/2019 Pt Yzd3246 Hi intensity - 3.0-4.0 02/05/2019 Pt Oqk2508 PT 39.6 seconds 02/01/2019 Pt Quc3165 INR 4.1 02/01/2019 Pt Vdf7285 Low Intensity - 1.5-2.0 02/01/2019 Pt Qjm1128 Mod intensity - 2.0-3.0 02/01/2019 Pt Fjf1126 Hi intensity - 3.0-4.0 02/01/2019 Pt Ogy7129 PT 31.9 seconds 01/20/2019 Pt Uzg1712 INR 3.1 01/20/2019 Pt Hxi9834 Low Intensity - 1.5-2.0 01/20/2019 Pt Kri9172 Mod intensity - 2.0-3.0 01/20/2019 Pt Dfb3934 Hi intensity - 3.0-4.0 01/20/2019 Pt Pwj1136 PT 21.0 seconds 01/12/2019 Pt Qmh8471 INR 1.9 01/12/2019 Pt Ghv0936 Low Intensity - 1.5-2.0 01/12/2019 Pt Wqw8867 Mod intensity - 2.0-3.0 01/12/2019 Pt Pza2130 Hi intensity - 3.0-4.0 01/12/2019 Pt Ldg0480 PT 31.8 seconds 01/07/2019 Pt Wqo6350 INR 3.1 01/07/2019 Pt Uvf2957 Low Intensity - 1.5-2.0 01/07/2019 Pt Avz1653 Mod intensity - 2.0-3.0 01/07/2019 Pt Jhs0227 Hi intensity - 3.0-4.0 01/07/2019 Pt Rji4681 PT 48.2 seconds 01/05/2019 Pt Kij9235 INR 5.2 01/05/2019 Pt Rgc3090 Low Intensity - 1.5-2.0 01/05/2019 Pt Iyj7618 Mod intensity - 2.0-3.0 01/05/2019 Pt Gst6629 Hi intensity - 3.0-4.0 01/05/2019 Pt Gfb7059 PT 17.6 seconds 12/25/2018 Pt Wpn1254 INR 1.5 12/25/2018 Pt Uef6452 Low Intensity - 1.5-2.0 12/25/2018 Pt Owi4882 Mod intensity - 2.0-3.0 12/25/2018 Pt Nfe4178 Hi intensity - 3.0-4.0 12/25/2018 Cbc With [...] 30.0 pg 12/10/2018 Cbc With Differential Ord2 [place]% 10.5 % 12/10/2018 Cbc With Differential Ord2 [...] 2.09 K/ul 12/10/2018 Cbc With Differential Ord2 [place] ABS# 0.8 K/ul 12/10/2018 Cbc With Differential Ord2 Eos ABS# 0.4 K/ul 12/10/2018 Cbc With Differential Ord2 Baso ABS# 0.0 K/ul 12/10/2018 Uric Acid Ord77 Uric A 4.6 mg/dL 12/10/2018 Random Urine Protein/Creatinine Ratio Ndk6361 U Prot 9.0 mg/dl 12/10/2018 Random Urine Protein/Creatinine Ratio Rsc8652 U CREAT 126.0 mg/dL 12/10/2018 Random Urine Protein/Creatinine Ratio Yyq7132 R MTP/Creat Ratio 0.07 12/10/2018 Ferritin Ord22 FERRITIN 47.9 ng/mL 12/10/2018 Renal Tcu084 NA 142 mEq/L 12/10/2018 Renal Qxm146 K 4.3 mEq/L 12/10/2018 Renal Tok398 CL 106 mEq/L 12/10/2018 Renal Kql350 CO2 30.0 mEq/L 12/10/2018 Renal Iqp051 ANION GAP 10 12/10/2018 Renal Ryg033 Osmo 286 mOsmo 12/10/2018 Renal Onb675 GLUCOSE 105 mg/dL 12/10/2018 Renal Ffb921 BUN 20 mg/dL 12/10/2018 Renal Srd455 Creat 1.4 mg/dL 12/10/2018 Renal Sqs269 eGFR 52 ml/min/1.73m2 12/10/2018 Renal Nbi866 B/C Ratio 14.1 Ratio 12/10/2018 Renal Pou063 CALCIUM 9.7 mg/dL 12/10/2018 Renal Eni312 PHOS 3.3 mg/dL 12/10/2018 Renal Dgx527 ALBUMIN 4.0 g/dL 12/10/2018 Urinalysis Ord28 U-Color [...] 17.8 % 12/10/2018 Vitamin D 25 Oh Vly1000 VITAMIN D, 25 HYDROXY 27.29 ng/mL 12/10/2018 Pt Gkl0319 PT 23.1 seconds 11/05/2018 Pt Jpp0206 INR 2.1 11/05/2018 Pt Wai6882 Low Intensity - 1.5-2.0 11/05/2018 Pt Jcp4237 Mod intensity - 2.0-3.0 11/05/2018 Pt Cyt3682 Hi intensity - 3.0-4.0 11/05/2018 Pt Kdx1022 PT 29.8 seconds 08/17/2018 Pt Baz8162 INR 2.8 08/17/2018 Pt Qns4027 Low Intensity - 1.5-2.0 08/17/2018 Pt Uom2712 Mod intensity - 2.0-3.0 08/17/2018 Pt Deg2717 Hi intensity - 3.0-4.0 08/17/2018 Pt Fwm7050 PT 27.7 seconds 05/18/2018 Pt Rio7666 INR 2.6 05/18/2018 Pt Vvp3684 Low Intensity - 1.5-2.0 05/18/2018 Pt Rxo6964 Mod intensity - 2.0-3.0 05/18/2018 Pt Xvo0304 Hi intensity - 3.0-4.0 05/18/2018 Uric Acid [...] 30.9 pg 05/18/2018 Cbc With Differential Ord2 [place]% 13.8 % 05/18/2018 Cbc With Differential Ord2 [...] 1.94 K/ul 05/18/2018 Cbc With Differential Ord2 [place] ABS# 0.9 K/ul 05/18/2018 Cbc With Differential Ord2 Eos ABS# 0.4 K/ul 05/18/2018 Cbc With Differential Ord2 Baso ABS# 0.0 K/ul 05/18/2018 Random Urine Protein/Creatinine Ratio Okk1570 U Prot 7.0 mg/dl 05/18/2018 Random Urine Protein/Creatinine Ratio Huy9643 U CREAT 75.0 mg/dL 05/18/2018 Random Urine Protein/Creatinine Ratio Rso7268 R MTP/Creat Ratio 0.09 05/18/2018 Vitamin D 25 Oh Rrk4818 VITAMIN D, 25 HYDROXY 27.40 ng/mL 05/18/2018 Tibc Ord40 Iron 68 ug/dl 05/18/2018 Tibc Ord40 UIBC 308 ug/dL 05/18/2018 Tibc Ord40 TIBC 376 ug/dL 05/18/2018 Tibc Ord40 Fe-%Sat 18.1 % 05/18/2018 Parathyroid Hormone Xmv717 PTH 36.20 pg/ml 05/18/2018 Urinalysis Ord28 U-Color [...] hours from collection if refrigerated) 05/18/2018 Renal Dwh362 NA 141 mEq/L 05/18/2018 Renal Yhw734 K 4.0 mEq/L 05/18/2018 Renal Iun147 CL 107 mEq/L 05/18/2018 Renal Pmj903 CO2 27.0 mEq/L 05/18/2018 Renal Sdb443 ANION GAP 11 05/18/2018 Renal Jgw294 Osmo 282 mOsmo 05/18/2018 Renal Smk698 GLUCOSE 83 mg/dL 05/18/2018 Renal Xcx855 BUN 18 mg/dL 05/18/2018 Renal Ise886 Creat 1.4 mg/dL 05/18/2018 Renal Nga304 eGFR 55 ml/min/1.73m2 05/18/2018 Renal Nhm865 B/C Ratio 13.3 Ratio 05/18/2018 Renal Azd113 CALCIUM 9.0 mg/dL 05/18/2018 Renal Toa717 PHOS 2.9 mg/dL 05/18/2018 Renal Xzv152 ALBUMIN 4.0 g/dL 05/18/2018 Ferritin Ord22 FERRITIN [...] Metabolic Ord15 CALCIUM 9.2 mg/dL 03/23/2018 Pt Onu8531 PT 29.0 seconds 03/13/2018 Pt Ths9062 INR 2.7 03/13/2018 Pt Ytt9599 Low Intensity - 1.5-2.0 03/13/2018 Pt Upb0089 Mod intensity - 2.0-3.0 03/13/2018 Pt Azk5105 Hi intensity - 3.0-4.0 03/13/2018 Pt Btw8580 PT 31.6 seconds 03/04/2018 Pt Shd7199 INR 3.0 03/04/2018 Pt Vyl1771 Low Intensity - 1.5-2.0 03/04/2018 Pt Qpb8340 Mod intensity - 2.0-3.0 03/04/2018 Pt Rmm9846 Hi intensity - 3.0-4.0 03/04/2018 Pt Sbp9657 PT 33.3 seconds 01/29/2018 Pt Zgc7054 INR 3.2 01/29/2018 Pt Vhs5178 Low Intensity - 1.5-2.0 01/29/2018 Pt Fhe5130 Mod intensity - 2.0-3.0 01/29/2018 Pt Csq1061 Hi intensity - 3.0-4.0 01/29/2018 Pt Cmk0726 PT 26.1 seconds 01/21/2018 Pt Jfl7021 INR 2.4 01/21/2018 Pt Vsw4426 Low Intensity - 1.5-2.0 01/21/2018 Pt Ssn2299 Mod intensity - 2.0-3.0 01/21/2018 Pt Ouw4166 Hi intensity - 3.0-4.0 01/21/2018 Pt Gxi0535 PT 35.7 seconds 01/09/2018 Pt Imb1920 INR 3.5 01/09/2018 Pt Zog2955 Low Intensity - 1.5-2.0 01/09/2018 Pt Jzv2723 Mod intensity - 2.0-3.0 01/09/2018 Pt Tiw3365 Hi intensity - 3.0-4.0 01/09/2018 Pt Heb2421 PT 23.8 seconds 12/04/2017 Pt Rlj2735 INR 2.1 12/04/2017 Pt Zqz3966 Low Intensity - 1.5-2.0 12/04/2017 Pt Ydh7001 Mod intensity - 2.0-3.0 12/04/2017 Pt Jpo7025 Hi intensity - 3.0-4.0 12/04/2017 Pt Bdc3112 PT 32.3 seconds 11/12/2017 Pt Bvm0954 INR 3.1 11/12/2017 Pt Klg3047 Low Intensity - 1.5-2.0 11/12/2017 Pt Vgs6340 Mod intensity - 2.0-3.0 11/12/2017 Pt Ptl2091 Hi intensity - 3.0-4.0 11/12/2017 Urinalysis Ord28 [...] hours from collection if refrigerated) 10/20/2017 Pt Ghh4403 PT 16.6 seconds 10/20/2017 Pt Vuk0103 INR 1.4 10/20/2017 Pt Lyx2612 Low Intensity - 1.5-2.0 10/20/2017 Pt Rqt8861 Mod intensity - 2.0-3.0 10/20/2017 Pt Giu8556 Hi intensity - 3.0-4.0 10/20/2017 Renal Wnt945 NA 142 mEq/L 10/20/2017 Renal Soz645 K 4.5 mEq/L 10/20/2017 Renal Uzc595 CL 107 mEq/L 10/20/2017 Renal Epe075 CO2 28.0 mEq/L 10/20/2017 Renal Imh458 ANION GAP 12 10/20/2017 Renal Gey048 Osmo 288 mOsmo 10/20/2017 Renal Epd975 GLUCOSE 96 mg/dL 10/20/2017 Renal Ylx015 BUN 27 mg/dL 10/20/2017 Renal Bop493 Creat 1.6 mg/dL 10/20/2017 Renal Uof144 eGFR 46 ml/min/1.73m2 10/20/2017 Renal Ncp423 B/C Ratio 17.2 Ratio 10/20/2017 Renal Hxk968 CALCIUM 9.4 mg/dL 10/20/2017 Renal Cln906 PHOS 3.0 mg/dL 10/20/2017 Renal Ere243 ALBUMIN 4.2 g/dL 10/20/2017 Pt Hgx5748 PT 31.2 seconds 10/17/2017 Pt Zpx5607 INR 3.0 10/17/2017 Pt Tma8053 Low Intensity - 1.5-2.0 10/17/2017 Pt Ytd5425 Mod intensity - 2.0-3.0 10/17/2017 Pt Pxx7080 Hi intensity - 3.0-4.0 10/17/2017 Comp Metabolic Zfr697 NA 139 mEq/L 05/08/2017 Comp Metabolic Cif262 K 4.1 mEq/L 05/08/2017 Comp Metabolic Xrp810 CL 103 mEq/L 05/08/2017 Comp Metabolic Fds808 CO2 28.0 mEq/L 05/08/2017 Comp Metabolic Njw981 ANION GAP 12 05/08/2017 Comp Metabolic Erx225 GLUCOSE 75 mg/dL 05/08/2017 Comp Metabolic Fxx880 Creat 1.3 mg/dL 05/08/2017 Comp Metabolic Xdo930 eGFR 55 ml/min/1.73m2 05/08/2017 Comp Metabolic Qrv380 BUN 20 mg/dL 05/08/2017 Comp Metabolic Int584 B/C Ratio 14.9 Ratio 05/08/2017 Comp Metabolic Knn051 CALCIUM 8.8 mg/dL 05/08/2017 Comp Metabolic Wia725 ALK PHOS 51 U/L 05/08/2017 Comp Metabolic Owq359 AST(SGOT) 30 U/L 05/08/2017 Comp Metabolic Qgx199 ALT(SGPT) 31 U/L 05/08/2017 Comp Metabolic Hwl959 BILI T 0.9 mg/dL 05/08/2017 Comp Metabolic Igk192 ALBUMIN 4.0 g/dL 05/08/2017 Comp Metabolic Tct362 TPRO 6.5 g/dL 05/08/2017 Comp Metabolic Qxg446 GLOB 2.6 g/dL 05/08/2017 Comp Metabolic Act837 A/G Ratio 1.5 Ratio 05/08/2017 Comp Metabolic Klz105 Osmo 279 mOsmo 05/08/2017 Cbc With Differential [...] 31.5 pg 05/08/2017 Cbc With Differential Ord2 [place]% 13.5 % 05/08/2017 Cbc With Differential Ord2 [...] 1.29 K/ul 05/08/2017 Cbc With Differential Ord2 [place] ABS# 1.1 K/ul 05/08/2017 Cbc With Differential Ord2 Eos ABS# 0.2 K/ul 05/08/2017 Cbc With Differential Ord2 Baso ABS# 0.0 K/ul 05/08/2017 Pt Ifv9751 PT 22.7 seconds 11/22/2016 Pt Icw3495 INR 2.1 11/22/2016 Pt Pra7250 Low Intensity - 1.5-2.0 11/22/2016 Pt Waz8430 Mod intensity - 2.0-3.0 11/22/2016 Pt Jqr6928 Hi intensity - 3.0-4.0 11/22/2016 Pt Mfn2443 PT 24.4 seconds 10/25/2016 Pt Rss4859 INR 2.3 10/25/2016 Pt Lnh8015 Low Intensity - 1.5-2.0 10/25/2016 Pt Hsf9829 Mod intensity - 2.0-3.0 10/25/2016 Pt Ipt8834 Hi intensity - 3.0-4.0 10/25/2016 Pt Emk5442 PT 23.5 seconds 09/04/2016 Pt Jle9062 INR 2.2 09/04/2016 Pt Voq0638 Low Intensity - 1.5-2.0 09/04/2016 Pt Oxf3652 Mod intensity - 2.0-3.0 09/04/2016 Pt Eai5560 Hi intensity - 3.0-4.0 09/04/2016 Pt Bgu7849 PT 26.1 seconds 07/09/2016 Pt Oki7022 INR 2.6 07/09/2016 Pt Bqp3402 Low Intensity - 1.5-2.0 07/09/2016 Pt Nau7549 Mod intensity - 2.0-3.0 07/09/2016 Pt Zmy9032 Hi intensity - 3.0-4.0 07/09/2016 Pt Tfr8973 PT 19.4 seconds 06/24/2016 Pt Bwc8746 INR 1.7 06/24/2016 Pt Vxr4229 Low Intensity - 1.5-2.0 06/24/2016 Pt Fhb1428 Mod intensity - 2.0-3.0 06/24/2016 Pt Cjt5043 Hi intensity - 3.0-4.0 06/24/2016 Pt Mgp7564 PT 28.9 seconds 04/26/2016 Pt Jeh3303 INR 2.9 04/26/2016 Pt Wej9729 Low Intensity - 1.5-2.0 04/26/2016 Pt Yxv6036 Mod intensity - 2.0-3.0 04/26/2016 Pt Vud9741 Hi intensity - 3.0-4.0 04/26/2016 Tsh Ord6 hTSH II 1.21 uIU/mL 02/29/2016 Pt Xuv4839 PT 21.8 seconds 02/29/2016 Pt Ncj3766 INR 2.0 02/29/2016 Pt Qiz5035 Low Intensity - 1.5-2.0 02/29/2016 Pt Pja2700 Mod intensity - 2.0-3.0 02/29/2016 Pt Zip1441 Hi intensity - 3.0-4.0 02/29/2016 Lipid Ord30 [...] Ord2 RDW 16.2 % 06/30/2015 Comp Metabolic Wez885 NA 138 mEq/L 06/30/2015 Comp Metabolic Ull759 K 4.8 mEq/L 06/30/2015 Comp Metabolic Ang948 CL 107 mEq/L 06/30/2015 Comp Metabolic Jkx201 CO2 27.0 mEq/L 06/30/2015 Comp Metabolic Zje836 ANION GAP 9 06/30/2015 Comp Metabolic Fzv161 GLUCOSE 98 mg/dL 06/30/2015 Comp Metabolic Wgg283 Creat 1.8 mg/dL 06/30/2015 Comp Metabolic Ayn866 eGFR 40 ml/min/1.73m2 06/30/2015 Comp Metabolic Qet032 BUN 20 mg/dL 06/30/2015 Comp Metabolic Xob890 B/C Ratio 11.1 Ratio 06/30/2015 Comp Metabolic Mcg381 CALCIUM 9.1 mg/dL 06/30/2015 Comp Metabolic Eti353 ALK PHOS 39 U/L 06/30/2015 Comp Metabolic Bsx870 AST(SGOT) 21 U/L 06/30/2015 Comp Metabolic Qsp286 ALT(SGPT) 23 U/L 06/30/2015 Comp Metabolic Ceu441 BILI T 0.5 mg/dL 06/30/2015 Comp Metabolic Wud878 ALBUMIN 4.0 g/dL 06/30/2015 Comp Metabolic Ecc082 TPRO 6.6 g/dL 06/30/2015 Comp Metabolic Qye084 GLOB 2.6 g/dL 06/30/2015 Comp Metabolic Dvq048 A/G Ratio 1.5 Ratio 06/30/2015 Comp Metabolic Hil064 Osmo 278 mOsmo 06/30/2015 Pt Bjm5249 PT 26.1 seconds 06/30/2015 Pt Kfl4999 INR 2.5 06/30/2015 Pt Bte6420 Low Intensity - 1.5-2.0 06/30/2015 Pt Htw7302 Mod intensity - 2.0-3.0 06/30/2015 Pt Lgu7959 Hi intensity - 3.0-4.0 06/30/2015 Review of Systems System Result Effective Dates Constitutional No recent illness 12/31/2018 Dermatologic sores [...] Procedure Codes Date DESTRUCT PREMALG LESION CPT-4: 70216 12/31/2018 DESTRUCT PREMALG LES 2-14 CPT-4: 32646 12/31/2018 OCCULT BLOOD FECES CPT- 4: 90011 04/08/2018 PPPS, SUBSEQ VISIT CPT- 4: G0439 04/03/2018 PPPS, SUBSEQ VISIT CPT- 4: G0439 10/31/2017 PRESCRIP TRANSMIT VIA ERX SY CPT-4: G8553 09/22/2017 THER/PROPH/DIAG INJ SC/IM CPT-4: 83057 01/21/2017 TRIAMCINOLONE ACET INJ NOS CPT-4: J3301 01/21/2017 THER/PROPH/DIAG INJ SC/IM CPT-4: 95083 12/30/2016 ROCEPHIN, PER 250 MG CPT- 4: J0696 12/30/2016 PPPS, SUBSEQ VISIT CPT- 4: G0439 10/25/2016 ROCEPHIN, PER 250 MG CPT- 4: J0696 06/24/2016 THER/PROPH/DIAG INJ SC/IM CPT-4: 99894 06/24/2016 Vital Signs Date Vital 12/31/2018 Blood Pressure 1: 140/80 Code: 8480-6 BMI: 29.0 Code: 23352-1 Heart Rate 1: 86 bpm Height: 5'8" SpO2: 97% Weight: 191 lbs 12/23/2018 Blood Pressure 1: 140/68 Code: 8480-6 BMI: 29.3 Code: 86537-9 Heart Rate 1: 70 bpm Height: 5'8" SpO2: 97% Weight: 193 lbs 04/03/2018 Blood Pressure 1: 128/72 Code: 8480-6 BMI: 29.8 Code: 60911-5 Heart Rate 1: 60 bpm Height: 5'8" SpO2: 96% Weight: 196 lbs 03/31/2018 Blood Pressure 1: 128/76 Code: 8480-6 BMI: 29.8 Code: 49176-2 Heart Rate 1: 56 bpm Height: 5'8" SpO2: 98% Weight: 196 lbs 11/26/2017 Blood Pressure 1: 156/76 Code: 8480-6 BMI: 29.6 Code: 66485-7 Heart Rate 1: 57 bpm Height: 5'8" SpO2: 98% Weight: 195 lbs 10/31/2017 Blood Pressure 1: 136/74 Code: 8480-6 BMI: 29.5 Code: 92616-6 Heart Rate 1: 56 bpm Height: 5'8" SpO2: 95% Waist Measure (cm): 91 cm Weight: 194 lbs 10/07/2017 Blood Pressure 1: 136/72 Code: 8480-6 BMI: 30.3 Code: 28940-3 Heart Rate 1: 58 bpm Height: 5'8" SpO2: 96% Weight: 199 lbs 09/22/2017 Blood Pressure 1: 138/78 Code: 8480-6 BMI: 30.4 Code: 08997-2 Heart Rate 1: 60 bpm Height: 5'8" SpO2: 98% Temperature: 36.6 (C) / 97.9 (F) Weight: 200 lbs 05/08/2017 Blood Pressure 1: 128/80 Code: 8480-6 BMI: 30.0 Code: 38937-9 Heart Rate 1: 75 bpm Height: 5'8" SpO2: 98% Weight: 197 lbs 03/25/2017 Blood Pressure 1: 150/80 Code: 8480-6 BMI: 30.1 Code: 51196-5 Heart Rate 1: 53 bpm Height: 5'8" SpO2: 98% Weight: 198 lbs 01/21/2017 Blood Pressure 1: 156/88 Code: 8480-6 BMI: 29.8 Code: 70968-1 Heart Rate 1: 95 bpm Height: 5'8" SpO2: 98% Temperature: 36.9 (C) / 98.4 (F) Weight: 196 lbs 12/30/2016 Blood Pressure 1: 122/74 Code: 8480-6 BMI: 29.8 Code: 36664-9 Heart Rate 1: 60 bpm Height: 5'8" SpO2: 96% Temperature: 37.1 (C) / 98.8 (F) Weight: 196 lbs 12/26/2016 Blood Pressure 1: 142/74 Code: 8480-6 BMI: 29.8 Code: 22427-0 Heart Rate 1: 58 bpm Height: 5'8" SpO2: 96% Temperature: 36.7 (C) / 98.0 (F) Weight: 196 lbs 12/02/2016 Blood Pressure 1: 128/78 Code: 8480-6 BMI: 30.3 Code: 42116-6 Heart Rate 1: 49 bpm Height: 5'8" SpO2: 98% Temperature: 36.5 (C) / 97.7 (F) Weight: 199 lbs 11/21/2016 Blood Pressure 1: 130/68 Code: 8480-6 BMI: 30.3 Code: 44459-9 Heart Rate 1: 54 bpm Height: 5'8" SpO2: 98% Weight: 199 lbs 10/25/2016 Blood Pressure 1: 150/92 Code: 8480-6 BMI: 29.8 Code: 65858-3 Heart Rate 1: 54 bpm Height: 5'8" SpO2: 97% Waist Measure (cm): 97 cm Weight: 196 lbs 10/23/2016 Blood Pressure 1: 150/92 Code: 8480-6 BMI: 29.9 Code: 16911-9 Heart Rate 1: 54 bpm Height: 5'8" SpO2: 98% Weight: 196 lbs 8 oz 07/29/2016 Blood Pressure 1: 144/72 Code: 8480-6 BMI: 30.3 Code: 36283-3 Heart Rate 1: 54 bpm Height: 5'8" SpO2: 98% Weight: 199 lbs 06/24/2016 Blood Pressure 1: 132/78 Code: 8480-6 BMI: 29.5 Code: 08405-0 Heart Rate 1: 59 bpm Height: 5'8" SpO2: 94% Weight: 194 lbs 02/21/2016 Blood Pressure 1: 138/84 Code: 8480-6 BMI: 30.3 Code: 56861-7 Heart Rate 1: 64 bpm Height: 5'8" SpO2: 95% Weight: 199 lbs 10/18/2015 Blood Pressure 1: 154/84 Code: 8480-6 Blood Pressure 1: 138/72 Code: 8480-6 BMI: 30.4 Code: 36890-1 Heart Rate 1: 68 bpm Height: 5'8" SpO2: 97% Weight: 200 lbs 05/02/2015 Blood Pressure 1: 114/64 Code: 8480-6 BMI: 29.0 Code: 46226-8 Heart Rate 1: 62 bpm Height: 5'8" Respiratory Rate: 20 bpm Weight: 191 lbs Functional Status No Functional Status data History of Present Illness Symptom Name Status Result Effective Date Notes Location-Major on the head 12/31/2018 None Location-Major [...] data Encounters Encounter Performer Location Codes Date 53361 EST. PATIENT, LEVEL III Diagnosis: Diverticulitis of small intestine with perforation and abscess without bleeding[ICD10: K57.00] Gabrielle Husain MD, [facility] CPT-4: 40727 12/23/2018 ([id number]) 19502 EST. PATIENT, LEVEL III Diagnosis: Low back pain[ICD10: M54.5] Diagnosis: Muscle spasm of back[ICD10: M62.830] Leidy Husain MD, [facility] CPT-4: 42777 03/31/2018 ([id number]) 71029 EST. PATIENT, LEVEL III Diagnosis: Actinic keratosis[ICD10: L57.0] Diagnosis: Other hypertrophic disorders of the skin[ICD10: L91.8] Amanda Husain MD, [facility] CPT-4: 44380 11/26/2017 ([id number]) 52514 EST. PATIENT, LEVEL IV Diagnosis: Essential (primary) hypertension[ICD10: I10] Diagnosis: Mild cognitive impairment, so stated[ICD10: G31.84] Amanda Husain MD, [facility] CPT-4: 46275 10/07/2017 ([id number]) 48828 EST. PATIENT, LEVEL III Diagnosis: Pneumonia due to other streptococci[ICD10: J15.4] Diagnosis: Cough[ICD10: R05] Amanda Husain MD, [facility] CPT-4: 18665 09/22/2017 21675 EST. PATIENT, LEVEL IV Diagnosis: Left lower quadrant pain[ICD10: R10.32] Diagnosis: Other fatigue[ICD10: R53.83] Gabrielle Husain MD, [facility] CPT-4: 95045 05/08/2017 ([id number]) 80029 EST. PATIENT, LEVEL III Diagnosis: Essential (primary) hypertension[ICD10: I10] Amanda Husain MD, [facility] CPT-4: 68021 03/25/2017 ([id number]) 92049 EST. PATIENT, LEVEL III Diagnosis: Cough[ICD10: R05] Diagnosis: Allergic rhinitis due to pollen[ICD10: J30.1] Leidy Husain MD, [facility] CPT-4: 31531 01/21/2017 57368 EST. PATIENT, LEVEL III Diagnosis: Other allergic rhinitis[ICD10: J30.89] Diagnosis: Cough[ICD10: R05] Gabrielle Husain MD, [facility] CPT-4: 47084 12/30/2016 ([id number]) 49711 EST. PATIENT, LEVEL III Diagnosis: Cough[ICD10: R05] Diagnosis: Pneumonia, unspecified organism[ICD10: J18.9] Leidy Husain MD, [facility] CPT-4: 97747 12/26/2016 ([id number]) 18674 EST. PATIENT, LEVEL III Diagnosis: Pneumonia due to other streptococci[ICD10: J15.4] Diagnosis: Cough[ICD10: R05] Amanda Husain MD, [facility] CPT-4: 51313 12/02/2016 ([id number]) 82834 EST. PATIENT, LEVEL III Diagnosis: Essential (primary) hypertension[ICD10: I10] Amanda Husain MD, [facility] CPT-4: 34383 11/21/2016 ([id number]) 50662 EST. PATIENT, LEVEL IV Diagnosis: Essential (primary) hypertension[ICD10: I10] Diagnosis: Mixed hyperlipidemia[ICD10: E78.2] Amanda Husain MD, [facility] CPT- 4: 28201 10/23/2016 03669 EST. PATIENT, LEVEL IV Diagnosis: Other allergic rhinitis[ICD10: J30.89] Diagnosis: Cough[ICD10: R05] Gabrielle Husain MD, [facility] CPT-4: 46336 07/29/2016 ([id number]) Miscellaneous no charge Diagnosis: Pneumonia, unspecified organism[ICD10: J18.9] Gabrielle Husain MD [facility] CPT-4: 31685 06/27/2016 ([id number]) 44328 EST. PATIENT, LEVEL IV Diagnosis: Essential (primary) hypertension[ICD10: I10] Diagnosis: Pneumonia, unspecified organism[ICD10: J18.9] Diagnosis: Cough[ICD10: R05] Diagnosis: Mixed hyperlipidemia[ICD10: E78.2] Amanda Husain MD, [facility] CPT- 4: 75000 06/24/2016 ([id number]) 13795 EST. PATIENT, LEVEL IV Diagnosis: Mixed hyperlipidemia[ICD10: E78.2] Diagnosis: Essential (primary) hypertension[ICD10: I10] Diagnosis: Gastro-esophageal reflux disease without esophagitis[ICD10: K21.9] [facility] CPT-4: 36439 02/21/2016 ([id number]) 30535 EST. 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 Call if not improved after thorough healing - apply neosporin to skin lesions. 12/31/2018 Appointment: [facility] ([facility] Complex 12/31/2018 Patient Education: Patient Medication Summary Completed 12/31/2018 Visit Plan: Diverticulitis - rx for antibiotic sent to pt's pharmacy - pt advised to avoid seeds, nuts, popcorn, or any other food which has been proven to upset the pt's stomach. 12/23/2018 Appointment: Gabrielle Corona WPtel: [address] [place], [place] [id number] (15 min) Moderate 12/23/2018 Patient Education: Patient Medication Summary Completed 12/23/2018 Appointment: Gabrielle Corona WPtel: [address] [place] [id number] (30 min) Complex 12/16/2018 Appointment: Lab Draw [...] not improve. 03/31/2018 Appointment: Leidy Angulo WPtel: [facility]5 [facility] [place] [address] (15 min) Moderate 03/31/2018 Patient Education: Patient Medication Summary Completed 03/31/2018 Visit Plan: Wound Instructions - Pt was instructed to keep the wound clean, wash with antibacterial soap, use triple antibiotic ointment, call if redness, pustular drainage, or any other acute concerns. 11/26/2017 Appointment: Amanda Husain WPtel: [facility]5 [facility] Surgical Procedure 11/26/2017 Patient Education: Patient [...] surrogate. 10/31/2017 Appointment: Leidy Angulo WPtel: [phone] [phone] [facility] - Annual Wellness Visit 10/31/2017 Patient Education: [...] loss. 10/07/2017 Appointment: Amanda Husain WPtel: [phone] [facility] (30 min) Complex 10/07/2017 Patient Education: Patient Medication Summary Completed 10/07/2017 Patient Education: Obesity Completed 10/07/2017 Patient Education: Hypertension Completed 10/07/2017 Visit Plan: Pneumonia - Pt has been diagnosed with pneumonia by physical exam. Antibiotics have been ordered. The pt is aware of the diagnosis and the need for acute treatment of this illness. 09/22/2017 Appointment: Amanda Husain WPtel: [phone] [facility] (15 min) Moderate 09/22/2017 Patient [...] concerns. 05/08/2017 Appointment: Gabrielle Corona WPtel: [phone] [facility] (30 min) Complex 05/08/2017 Patient Education: Patient [...] daily. 03/25/2017 Appointment: Amanda Husain WPtel: [address] (15 min) Moderate 03/25/2017 Patient Education: Patient Medication Summary Completed 03/25/2017 Appointment: Leidy Angulo WPtel: [facility]9 [address] (15 min) Moderate 01/31/2017 Visit Plan: URI/Allergies - Pt advised to increase fluids, vitamin C. Discussed natural and expected course of this diagnosis and need to alert me if symptoms do not follow expected course, or if any worse. RX sent to patient's pharmacy. 01/21/2017 Appointment: Leidy Angulo WPtel: [phone] [phone] (15 min) Moderate 01/21/2017 Patient Education: Patient [...] WPtel: [phone] [phone] (15 min) Moderate 12/30/2016 Appointment: [phone] (30 min) Complex 12/30/2016 Patient Education: Patient [...] levaquin. 12/26/2016 Appointment: [facility]ulo [phone] [phone] [place] (15 min) Moderate 12/26/2016 Patient Education: [...] home. 11/21/2016 [facility]: [phone] (15 min) Moderate 11/21/2016 Patient Education: [...] WPtel: [phone] [facility] [place] [address] - Annual Wellness Visit 10/25/2016 Patient Education: [...] medications. 10/23/2016 Appointment: Amanda Husain WPtel: [phone] [facility] (15 min) Moderate 10/23/2016 Patient Education: Patient [...] any concerns. 07/29/2016 Appointment: [facility] Cor[phone] [facility] (15 min) Moderate 07/29/2016 Patient Education: Patient [...] to medications. 06/24/2016 Appointment: [phone] (15 min) Moderate 06/24/2016 Patient Education: [...] improving. 02/21/2016 Appointment: [phone] (15 min) Moderate 02/21/2016 Patient Education: [...] Care Plan: COMPLETE CBC AUTOMATED LOINC : 60396-3 Ordered 05/02/2015 Care Plan: ASSAY OF TROPONIN [...] symptoms are not controlled with the medication. [employer] - take three times daily x 7 [...]
--- OUTSIDE RECORDS SUMMARY | 2019-05-19 10:39 | XMS REPORT | CCD ---
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 Name Role Phone PP Unavailable CCM Unavailable Summary Purpose Interface Exchange Insurance Providers Payer name Policy type / Coverage type Covered constitution party ID Effective Begin Date Effective End Date WPS Medicare Part B [id number] Unknown [employer] Insurance [id number] Unknown Family history Brother Diagnosis Age At [...] Unknown Retired 05/02/[address]: 4545321 Former smoker Quit in 1966 05/02/2015 Number [...] Instructions Zithromax Z-Carlo 250 mg tablet RxNorm: 419870 2 Tablet(s) PO on 1 st day then 1 daily x 4 days ZPACK X 1 01/15/2019 No Stop Date Active metronidazole 500 mg tablet RxNorm: 919376 1 Tablet(s) PO TID 12/23/2018 01/01/2019 Inactive omeprazole 20 mg capsule,delayed release RxNorm: 671501 TAKE 1 CAPSULE BY MOUTH ONCE DAILY 12/07/2018 No Stop Date Active metoprolol tartrate 25 mg tablet RxNorm: 163172 Tablet(s) TAKE 1 TABLET BY MOUTH TWICE DAILY 10/16/2018 No Stop Date Active metoprolol tartrate 25 mg tablet RxNorm: 500034 TAKE 1 TABLET BY MOUTH TWICE DAILY 07/13/2018 10/15/2018 Inactive Trilipix 135 mg capsule,delayed release RxNorm: 780880 1 Capsule(s) PO daily 06/17/2018 10/14/2018 Inactive ramipril 10 mg capsule RxNorm: 071586 TAKE ONE CAPSULE BY MOUTH ONCE DAILY 06/15/2018 No Stop Date Active omeprazole 20 mg capsule,delayed release RxNorm: 108796 Capsule(s) TAKE ONE CAPSULE BY MOUTH ONCE DAILY 06/03/2018 No Stop Date Active omeprazole 20 mg capsule,delayed release RxNorm: 090232 Capsule(s) TAKE ONE CAPSULE BY MOUTH ONCE DAILY 06/02/2018 06/02/2018 Inactive metoprolol tartrate 25 mg tablet RxNorm: 967343 TAKE ONE TABLET BY MOUTH TWICE DAILY 02/16/2018 07/12/2018 Inactive omeprazole 20 mg capsule,delayed release RxNorm: 138380 TAKE ONE CAPSULE BY MOUTH ONCE DAILY 01/05/2018 06/01/2018 Inactive metoprolol tartrate 25 mg tablet RxNorm: 154671 TAKE ONE TABLET BY MOUTH TWICE DAILY 10/27/2017 02/15/2018 Inactive azithromycin 250 mg tablet RxNorm: 160875 1 Tablet(s) PO UD 2 tabs on day #1, then 1 pill daily x 4 days 09/22/2017 11/25/2017 Inactive omeprazole 20 mg capsule,delayed release RxNorm: 825338 TAKE ONE CAPSULE BY MOUTH ONCE DAILY 06/16/2017 12/12/2017 Inactive metronidazole 500 mg tablet RxNorm: 110274 1 Tablet(s) PO TID 05/08/2017 05/14/2017 Inactive ramipril 10 mg capsule RxNorm: 326933 1 Capsule(s) PO daily 03/25/2017 03/19/2018 Inactive Kenalog 40 mg/mL suspension for injection RxNorm: 2933559 Milliliter(s) Inj 01/21/2017 01/21/2017 Inactive ceftriaxone 500 mg solution for injection RxNorm: 4957923 Inj 12/30/2016 12/30/2016 Inactive Phenergan with Codeine Syrup RxNorm: 5-10 Milliliter(s) PO Q6 PRN 12/26/2016 No Stop Date Active Levaquin 500 mg tablet RxNorm: 711868 1 Tablet(s) PO daily 12/26/2016 01/01/2017 Inactive Tessalon Perles 100 mg capsule RxNorm: 814717 1 Capsule(s) PO TID as needed 12/26/2016 01/04/2017 Inactive prednisone 20 mg tablet RxNorm: 938284 1 Tablet(s) PO BID 12/26/2016 12/30/2016 Inactive omeprazole 20 mg capsule,delayed release RxNorm: 178289 TAKE ONE CAPSULE BY MOUTH ONCE DAILY 12/16/2016 06/13/2017 Inactive cefdinir 300 mg capsule RxNorm: 453196 1 Capsule(s) PO BID 12/02/2016 12/08/2016 Inactive azithromycin 250 mg tablet RxNorm: 789713 Tablet(s) 2 tabs on day #1, then one tab PO daily x 4 more days 12/02/2016 12/25/2016 Inactive metoprolol tartrate 25 mg tablet RxNorm: 686031 1 Tablet(s) PO BID 10/23/2016 10/17/2017 Inactive metoprolol tartrate 25 mg tablet RxNorm: 000973 1 Tablet(s) PO BID 10/23/2016 10/22/2016 Inactive ceftriaxone 500 mg solution for injection RxNorm: 3488956 Inj 06/24/2016 06/24/2016 Inactive cefdinir 300 mg capsule RxNorm: 137931 1 Capsule(s) PO BID 06/24/2016 06/30/2016 Inactive omeprazole 20 mg capsule,delayed release RxNorm: 454803 TAKE ONE CAPSULE BY MOUTH DAILY 06/07/2016 12/03/2016 Inactive omeprazole 20 mg capsule,delayed release RxNorm: 578765 TAKE ONE CAPSULE BY MOUTH DAILY 01/29/2016 05/27/2016 Inactive metoprolol tartrate 50 mg tablet RxNorm: 297062 Tablet(s) TAKE ONE TABLET BY MOUTH DAILY 10/11/2015 10/10/2015 Inactive metoprolol tartrate 50 mg tablet RxNorm: 820420 TAKE ONE TABLET BY MOUTH DAILY 10/11/2015 10/22/2016 Inactive omeprazole 20 mg capsule,delayed release RxNorm: 457063 TAKE ONE CAPSULE BY MOUTH DAILY 08/28/2015 01/24/2016 Inactive metoprolol tartrate 50 mg tablet RxNorm: 122400 TAKE ONE TABLET BY MOUTH DAILY 08/11/2015 10/09/2015 Inactive metoprolol tartrate 50 mg tablet RxNorm: 381267 1 Tablet(s) PO daily 06/14/2015 08/10/2015 Inactive omeprazole 20 mg capsule,delayed release RxNorm: 143887 1 Capsule(s) PO daily 05/29/2015 08/26/2015 Inactive omeprazole 20 mg capsule,delayed release RxNorm: 778741 1 Capsule(s) PO daily 05/29/2015 05/28/2015 Inactive metronidazole 500 mg tablet RxNorm: 485183 1 Tablet(s) PO TID 05/02/2015 05/08/2015 Inactive finasteride 5 mg tablet RxNorm: 125455 1 Tablet(s) PO daily No Start Date Active warfarin 5 mg tablet RxNorm: 012270 1 Tablet(s) PO daily No Start Date Active Aspirin Childrens 81 mg chewable tablet RxNorm: 487817 1 Tablet(s) PO daily No Start Date Active amiodarone 200 mg tablet RxNorm: 126164 1 Tablet(s) PO daily No Start Date Active vitamin E (dl, acetate) 1,000 unit capsule RxNorm: 428122 1 Capsule(s) PO daily No Start Date Active atorvastatin 80 mg tablet RxNorm: 479867 1 Tablet(s) PO daily No Start Date Active Fish Oil 120 mg-180 mg capsule RxNorm: 214103 1 Capsule(s) PO BID No Start Date 10/30/2017 Inactive metoprolol tartrate 50 mg tablet RxNorm: 256830 1 Tablet(s) PO daily No Start Date 06/13/2015 Inactive Zetia 10 mg tablet RxNorm: 204633 1 Tablet(s) PO daily No Start Date 10/17/2015 Inactive ramipril 5 mg capsule RxNorm: 542148 1 Capsule(s) PO daily No Start Date 03/24/2017 Inactive Tessalon Perles 100 mg capsule RxNorm: 473603 1 Capsule(s) PO TID as needed No Start Date 12/25/2016 Inactive omeprazole 20 mg capsule,delayed release RxNorm: 169419 1 Capsule(s) PO daily No Start Date 05/28/2015 Inactive Zithromax Z-Carlo 250 mg tablet RxNorm: 186276 2 Tablet(s) PO on 1 st day then 1 daily x 4 days ZPACK X 1 No Start Date 01/14/2019 Inactive Trilipix 135 mg capsule,delayed release RxNorm: 433863 1 Capsule(s) PO daily No Start Date 06/16/2018 Inactive Centrum Silver tablet RxNorm: 1 Tablet(s) PO daily No Start Date 10/30/2017 Inactive Medication Administered Medication Codes Instructions Start Date Status Kenalog 40 mg/mL suspension for injection RxNorm: 7775682 Milliliter 01/21/2017 No longer Active ceftriaxone 500 mg solution for injection RxNorm: 9951867 12/30/2016 No longer Active ceftriaxone 500 mg solution for injection RxNorm: 6145997 06/24/2016 No longer Active Immunizations Vaccine Codes [...] Code Item Item Code Result Date Pt Zbn0436 PT 32.2 seconds 04/15/2019 Pt Osf6015 INR 3.2 04/15/2019 Pt Xez7235 Low Intensity - 1.5-2.0 04/15/2019 Pt Jsx2699 Mod intensity - 2.0-3.0 04/15/2019 Pt Fnk1972 Hi intensity - 3.0-4.0 04/15/2019 Pt Ffj1773 PT 20.2 seconds 03/19/2019 Pt Mag1743 INR 1.8 03/19/2019 Pt Iio2228 Low Intensity - 1.5-2.0 03/19/2019 Pt Agk1727 Mod intensity - 2.0-3.0 03/19/2019 Pt Wla2750 Hi intensity - 3.0-4.0 03/19/2019 Pt Mkx9208 PT 29.7 seconds 03/03/2019 Pt Hkx4485 INR 2.9 03/03/2019 Pt Wrv1778 Low Intensity - 1.5-2.0 03/03/2019 Pt Bba1511 Mod intensity - 2.0-3.0 03/03/2019 Pt Bsg4886 Hi intensity - 3.0-4.0 03/03/2019 Pt Jzx6950 PT 27.9 seconds 02/24/2019 Pt Wer6993 INR 2.7 02/24/2019 Pt Kyk6465 Low Intensity - 1.5-2.0 02/24/2019 Pt Rvx4285 Mod intensity - 2.0-3.0 02/24/2019 Pt Diz8200 Hi intensity - 3.0-4.0 02/24/2019 Pt Kap0705 PT 16.6 seconds 02/15/2019 Pt Knh7206 INR 1.4 02/15/2019 Pt Bjb2996 Low Intensity - 1.5-2.0 02/15/2019 Pt Jie2846 Mod intensity - 2.0-3.0 02/15/2019 Pt Nrz8503 Hi intensity - 3.0-4.0 02/15/2019 Pt Rtv3774 PT 16.6 seconds 02/05/2019 Pt Mys0057 INR 1.4 02/05/2019 Pt Zsa6830 Low Intensity - 1.5-2.0 02/05/2019 Pt Qwt2637 Mod intensity - 2.0-3.0 02/05/2019 Pt Uhx1178 Hi intensity - 3.0-4.0 02/05/2019 Pt Shg0587 PT 39.6 seconds 02/01/2019 Pt Upv2466 INR 4.1 02/01/2019 Pt Ilk8282 Low Intensity - 1.5-2.0 02/01/2019 Pt Mlz8095 Mod intensity - 2.0-3.0 02/01/2019 Pt Obf9704 Hi intensity - 3.0-4.0 02/01/2019 Pt Iew0110 PT 31.9 seconds 01/20/2019 Pt Euk9651 INR 3.1 01/20/2019 Pt Gzi5049 Low Intensity - 1.5-2.0 01/20/2019 Pt Etb0028 Mod intensity - 2.0-3.0 01/20/2019 Pt Tev7314 Hi intensity - 3.0-4.0 01/20/2019 Pt Qze3135 PT 21.0 seconds 01/12/2019 Pt Vfc2338 INR 1.9 01/12/2019 Pt Ihf9759 Low Intensity - 1.5-2.0 01/12/2019 Pt Emn6494 Mod intensity - 2.0-3.0 01/12/2019 Pt Gke7297 Hi intensity - 3.0-4.0 01/12/2019 Pt Pcy6106 PT 31.8 seconds 01/07/2019 Pt Tks3997 INR 3.1 01/07/2019 Pt Ivj9543 Low Intensity - 1.5-2.0 01/07/2019 Pt Eim9176 Mod intensity - 2.0-3.0 01/07/2019 Pt Qmp6581 Hi intensity - 3.0-4.0 01/07/2019 Pt Vzx1680 PT 48.2 seconds 01/05/2019 Pt Xwg5290 INR 5.2 01/05/2019 Pt Anq7561 Low Intensity - 1.5-2.0 01/05/2019 Pt Gaf0331 Mod intensity - 2.0-3.0 01/05/2019 Pt Dzv6591 Hi intensity - 3.0-4.0 01/05/2019 Pt Hyp8224 PT 17.6 seconds 12/25/2018 Pt Sam5039 INR 1.5 12/25/2018 Pt Syq7953 Low Intensity - 1.5-2.0 12/25/2018 Pt Leh2937 Mod intensity - 2.0-3.0 12/25/2018 Pt Zeh6222 Hi intensity - 3.0-4.0 12/25/2018 Cbc With [...] 30.0 pg 12/10/2018 Cbc With Differential Ord2 [place]% 10.5 % 12/10/2018 Cbc With Differential Ord2 [...] 2.09 K/ul 12/10/2018 Cbc With Differential Ord2 [place] ABS# 0.8 K/ul 12/10/2018 Cbc With Differential Ord2 Eos ABS# 0.4 K/ul 12/10/2018 Cbc With Differential Ord2 Baso ABS# 0.0 K/ul 12/10/2018 Uric Acid Ord77 Uric A 4.6 mg/dL 12/10/2018 Random Urine Protein/Creatinine Ratio Giw9518 U Prot 9.0 mg/dl 12/10/2018 Random Urine Protein/Creatinine Ratio Kcn0489 U CREAT 126.0 mg/dL 12/10/2018 Random Urine Protein/Creatinine Ratio Cqe6515 R MTP/Creat Ratio 0.07 12/10/2018 Ferritin Ord22 FERRITIN 47.9 ng/mL 12/10/2018 Renal Wqo368 NA 142 mEq/L 12/10/2018 Renal Drf669 K 4.3 mEq/L 12/10/2018 Renal Bkh353 CL 106 mEq/L 12/10/2018 Renal Nkn057 CO2 30.0 mEq/L 12/10/2018 Renal Men354 ANION GAP 10 12/10/2018 Renal Nfp018 Osmo 286 mOsmo 12/10/2018 Renal Hin003 GLUCOSE 105 mg/dL 12/10/2018 Renal Qsv812 BUN 20 mg/dL 12/10/2018 Renal Oed225 Creat 1.4 mg/dL 12/10/2018 Renal Gve238 eGFR 52 ml/min/1.73m2 12/10/2018 Renal Bfl717 B/C Ratio 14.1 Ratio 12/10/2018 Renal Jxw354 CALCIUM 9.7 mg/dL 12/10/2018 Renal Ucv136 PHOS 3.3 mg/dL 12/10/2018 Renal Qgl800 ALBUMIN 4.0 g/dL 12/10/2018 Urinalysis Ord28 U-Color [...] 17.8 % 12/10/2018 Vitamin D 25 Oh Hkv5348 VITAMIN D, 25 HYDROXY 27.29 ng/mL 12/10/2018 Pt Grd2650 PT 23.1 seconds 11/05/2018 Pt Whz4912 INR 2.1 11/05/2018 Pt Jok3202 Low Intensity - 1.5-2.0 11/05/2018 Pt Glb0151 Mod intensity - 2.0-3.0 11/05/2018 Pt Okh3679 Hi intensity - 3.0-4.0 11/05/2018 Pt Hgw4103 PT 29.8 seconds 08/17/2018 Pt Xta6271 INR 2.8 08/17/2018 Pt Wjq8337 Low Intensity - 1.5-2.0 08/17/2018 Pt Qok1344 Mod intensity - 2.0-3.0 08/17/2018 Pt Xbd5295 Hi intensity - 3.0-4.0 08/17/2018 Pt Pkm9965 PT 27.7 seconds 05/18/2018 Pt Tev4153 INR 2.6 05/18/2018 Pt Nko9782 Low Intensity - 1.5-2.0 05/18/2018 Pt Yug3847 Mod intensity - 2.0-3.0 05/18/2018 Pt Ugx0977 Hi intensity - 3.0-4.0 05/18/2018 Uric Acid [...] 30.9 pg 05/18/2018 Cbc With Differential Ord2 [place]% 13.8 % 05/18/2018 Cbc With Differential Ord2 [...] 1.94 K/ul 05/18/2018 Cbc With Differential Ord2 [place] ABS# 0.9 K/ul 05/18/2018 Cbc With Differential Ord2 Eos ABS# 0.4 K/ul 05/18/2018 Cbc With Differential Ord2 Baso ABS# 0.0 K/ul 05/18/2018 Random Urine Protein/Creatinine Ratio Vae1369 U Prot 7.0 mg/dl 05/18/2018 Random Urine Protein/Creatinine Ratio Qwi3380 U CREAT 75.0 mg/dL 05/18/2018 Random Urine Protein/Creatinine Ratio Poj4924 R MTP/Creat Ratio 0.09 05/18/2018 Vitamin D 25 Oh Gcu9605 VITAMIN D, 25 HYDROXY 27.40 ng/mL 05/18/2018 Tibc Ord40 Iron 68 ug/dl 05/18/2018 Tibc Ord40 UIBC 308 ug/dL 05/18/2018 Tibc Ord40 TIBC 376 ug/dL 05/18/2018 Tibc Ord40 Fe-%Sat 18.1 % 05/18/2018 Parathyroid Hormone Ydp801 PTH 36.20 pg/ml 05/18/2018 Urinalysis Ord28 U-Color [...] hours from collection if refrigerated) 05/18/2018 Renal Rke380 NA 141 mEq/L 05/18/2018 Renal Zvy976 K 4.0 mEq/L 05/18/2018 Renal Bqt865 CL 107 mEq/L 05/18/2018 Renal Kfy448 CO2 27.0 mEq/L 05/18/2018 Renal Tvz482 ANION GAP 11 05/18/2018 Renal Lem069 Osmo 282 mOsmo 05/18/2018 Renal Dmj660 GLUCOSE 83 mg/dL 05/18/2018 Renal Tcp001 BUN 18 mg/dL 05/18/2018 Renal Nue566 Creat 1.4 mg/dL 05/18/2018 Renal Inm891 eGFR 55 ml/min/1.73m2 05/18/2018 Renal Msr704 B/C Ratio 13.3 Ratio 05/18/2018 Renal Pvp777 CALCIUM 9.0 mg/dL 05/18/2018 Renal Yya353 PHOS 2.9 mg/dL 05/18/2018 Renal Qem665 ALBUMIN 4.0 g/dL 05/18/2018 Ferritin Ord22 FERRITIN [...] Metabolic Ord15 CALCIUM 9.2 mg/dL 03/23/2018 Pt Vlk6397 PT 29.0 seconds 03/13/2018 Pt Pep2298 INR 2.7 03/13/2018 Pt Zoq3897 Low Intensity - 1.5-2.0 03/13/2018 Pt Ozo6549 Mod intensity - 2.0-3.0 03/13/2018 Pt Jkr3131 Hi intensity - 3.0-4.0 03/13/2018 Pt Klr6618 PT 31.6 seconds 03/04/2018 Pt Gmu9032 INR 3.0 03/04/2018 Pt Gqw0377 Low Intensity - 1.5-2.0 03/04/2018 Pt Xae3124 Mod intensity - 2.0-3.0 03/04/2018 Pt Rmn2142 Hi intensity - 3.0-4.0 03/04/2018 Pt Osb1064 PT 33.3 seconds 01/29/2018 Pt Ezu4082 INR 3.2 01/29/2018 Pt Qkl3540 Low Intensity - 1.5-2.0 01/29/2018 Pt Nsu2140 Mod intensity - 2.0-3.0 01/29/2018 Pt Weq8702 Hi intensity - 3.0-4.0 01/29/2018 Pt Jim9796 PT 26.1 seconds 01/21/2018 Pt Bkf3260 INR 2.4 01/21/2018 Pt Rgb4918 Low Intensity - 1.5-2.0 01/21/2018 Pt Utd5096 Mod intensity - 2.0-3.0 01/21/2018 Pt Fze7703 Hi intensity - 3.0-4.0 01/21/2018 Pt Sjk9407 PT 35.7 seconds 01/09/2018 Pt Pdf1419 INR 3.5 01/09/2018 Pt Epu0759 Low Intensity - 1.5-2.0 01/09/2018 Pt Udg8651 Mod intensity - 2.0-3.0 01/09/2018 Pt Ocy5206 Hi intensity - 3.0-4.0 01/09/2018 Pt Sxe4454 PT 23.8 seconds 12/04/2017 Pt Xwq4415 INR 2.1 12/04/2017 Pt Erw7760 Low Intensity - 1.5-2.0 12/04/2017 Pt Ujh5368 Mod intensity - 2.0-3.0 12/04/2017 Pt Tfv0805 Hi intensity - 3.0-4.0 12/04/2017 Pt Gyx5953 PT 32.3 seconds 11/12/2017 Pt Taf1462 INR 3.1 11/12/2017 Pt Ckj0270 Low Intensity - 1.5-2.0 11/12/2017 Pt Unv9467 Mod intensity - 2.0-3.0 11/12/2017 Pt Hiw0750 Hi intensity - 3.0-4.0 11/12/2017 Urinalysis Ord28 [...] hours from collection if refrigerated) 10/20/2017 Pt Ogj6654 PT 16.6 seconds 10/20/2017 Pt Phd1435 INR 1.4 10/20/2017 Pt Lkw7204 Low Intensity - 1.5-2.0 10/20/2017 Pt Lpk9916 Mod intensity - 2.0-3.0 10/20/2017 Pt Ttf9309 Hi intensity - 3.0-4.0 10/20/2017 Renal Uzs989 NA 142 mEq/L 10/20/2017 Renal Xpt432 K 4.5 mEq/L 10/20/2017 Renal Iwr705 CL 107 mEq/L 10/20/2017 Renal Zks290 CO2 28.0 mEq/L 10/20/2017 Renal Rnb333 ANION GAP 12 10/20/2017 Renal Csx129 Osmo 288 mOsmo 10/20/2017 Renal Rfv136 GLUCOSE 96 mg/dL 10/20/2017 Renal Yif875 BUN 27 mg/dL 10/20/2017 Renal Vjj761 Creat 1.6 mg/dL 10/20/2017 Renal Xuq822 eGFR 46 ml/min/1.73m2 10/20/2017 Renal Nmf582 B/C Ratio 17.2 Ratio 10/20/2017 Renal Jna633 CALCIUM 9.4 mg/dL 10/20/2017 Renal Ogn879 PHOS 3.0 mg/dL 10/20/2017 Renal Hbt550 ALBUMIN 4.2 g/dL 10/20/2017 Pt Qsu5134 PT 31.2 seconds 10/17/2017 Pt Exg8448 INR 3.0 10/17/2017 Pt Sis9578 Low Intensity - 1.5-2.0 10/17/2017 Pt Shy9387 Mod intensity - 2.0-3.0 10/17/2017 Pt Yrm1301 Hi intensity - 3.0-4.0 10/17/2017 Comp Metabolic Sbe340 NA 139 mEq/L 05/08/2017 Comp Metabolic Rur504 K 4.1 mEq/L 05/08/2017 Comp Metabolic Ujk010 CL 103 mEq/L 05/08/2017 Comp Metabolic Dbh163 CO2 28.0 mEq/L 05/08/2017 Comp Metabolic Jdl757 ANION GAP 12 05/08/2017 Comp Metabolic Afx081 GLUCOSE 75 mg/dL 05/08/2017 Comp Metabolic Wvy132 Creat 1.3 mg/dL 05/08/2017 Comp Metabolic Nof524 eGFR 55 ml/min/1.73m2 05/08/2017 Comp Metabolic Lak447 BUN 20 mg/dL 05/08/2017 Comp Metabolic Xve022 B/C Ratio 14.9 Ratio 05/08/2017 Comp Metabolic Qjy494 CALCIUM 8.8 mg/dL 05/08/2017 Comp Metabolic Ceo382 ALK PHOS 51 U/L 05/08/2017 Comp Metabolic Wrp630 AST(SGOT) 30 U/L 05/08/2017 Comp Metabolic Gcq626 ALT(SGPT) 31 U/L 05/08/2017 Comp Metabolic Wap525 BILI T 0.9 mg/dL 05/08/2017 Comp Metabolic Nmz529 ALBUMIN 4.0 g/dL 05/08/2017 Comp Metabolic Txl302 TPRO 6.5 g/dL 05/08/2017 Comp Metabolic Iky121 GLOB 2.6 g/dL 05/08/2017 Comp Metabolic Lyg531 A/G Ratio 1.5 Ratio 05/08/2017 Comp Metabolic Yvs575 Osmo 279 mOsmo 05/08/2017 Cbc With Differential [...] 31.5 pg 05/08/2017 Cbc With Differential Ord2 [place]% 13.5 % 05/08/2017 Cbc With Differential Ord2 [...] 1.29 K/ul 05/08/2017 Cbc With Differential Ord2 [place] ABS# 1.1 K/ul 05/08/2017 Cbc With Differential Ord2 Eos ABS# 0.2 K/ul 05/08/2017 Cbc With Differential Ord2 Baso ABS# 0.0 K/ul 05/08/2017 Pt Yek7751 PT 22.7 seconds 11/22/2016 Pt Qfi3006 INR 2.1 11/22/2016 Pt Cho0874 Low Intensity - 1.5-2.0 11/22/2016 Pt Szn2515 Mod intensity - 2.0-3.0 11/22/2016 Pt Gpx8660 Hi intensity - 3.0-4.0 11/22/2016 Pt Vwv2389 PT 24.4 seconds 10/25/2016 Pt Cxd8510 INR 2.3 10/25/2016 Pt Lxs4215 Low Intensity - 1.5-2.0 10/25/2016 Pt Vff0373 Mod intensity - 2.0-3.0 10/25/2016 Pt Dkv3016 Hi intensity - 3.0-4.0 10/25/2016 Pt Gor3787 PT 23.5 seconds 09/04/2016 Pt Dxo1892 INR 2.2 09/04/2016 Pt Krw8408 Low Intensity - 1.5-2.0 09/04/2016 Pt Edg7832 Mod intensity - 2.0-3.0 09/04/2016 Pt Fgy1745 Hi intensity - 3.0-4.0 09/04/2016 Pt Vpq4966 PT 26.1 seconds 07/09/2016 Pt Vnf0681 INR 2.6 07/09/2016 Pt Mgb9268 Low Intensity - 1.5-2.0 07/09/2016 Pt Wec3443 Mod intensity - 2.0-3.0 07/09/2016 Pt Weu0373 Hi intensity - 3.0-4.0 07/09/2016 Pt Mkm7926 PT 19.4 seconds 06/24/2016 Pt Zub6061 INR 1.7 06/24/2016 Pt Zbm8774 Low Intensity - 1.5-2.0 06/24/2016 Pt Cmd4590 Mod intensity - 2.0-3.0 06/24/2016 Pt Ays6328 Hi intensity - 3.0-4.0 06/24/2016 Pt Hoc5816 PT 28.9 seconds 04/26/2016 Pt Hni8105 INR 2.9 04/26/2016 Pt Oll8725 Low Intensity - 1.5-2.0 04/26/2016 Pt Itg5625 Mod intensity - 2.0-3.0 04/26/2016 Pt Xaa4876 Hi intensity - 3.0-4.0 04/26/2016 Tsh Ord6 hTSH II 1.21 uIU/mL 02/29/2016 Pt Qru5946 PT 21.8 seconds 02/29/2016 Pt Sfs3786 INR 2.0 02/29/2016 Pt Qie9063 Low Intensity - 1.5-2.0 02/29/2016 Pt Vmm8492 Mod intensity - 2.0-3.0 02/29/2016 Pt Piq1951 Hi intensity - 3.0-4.0 02/29/2016 Lipid Ord30 [...] Ord2 RDW 16.2 % 06/30/2015 Comp Metabolic Cii650 NA 138 mEq/L 06/30/2015 Comp Metabolic Tvw169 K 4.8 mEq/L 06/30/2015 Comp Metabolic Uhz535 CL 107 mEq/L 06/30/2015 Comp Metabolic Zmd007 CO2 27.0 mEq/L 06/30/2015 Comp Metabolic Ykz935 ANION GAP 9 06/30/2015 Comp Metabolic Prk414 GLUCOSE 98 mg/dL 06/30/2015 Comp Metabolic Hwj004 Creat 1.8 mg/dL 06/30/2015 Comp Metabolic Hka763 eGFR 40 ml/min/1.73m2 06/30/2015 Comp Metabolic Kua226 BUN 20 mg/dL 06/30/2015 Comp Metabolic Iaq589 B/C Ratio 11.1 Ratio 06/30/2015 Comp Metabolic Rck154 CALCIUM 9.1 mg/dL 06/30/2015 Comp Metabolic Jzb296 ALK PHOS 39 U/L 06/30/2015 Comp Metabolic Nlq906 AST(SGOT) 21 U/L 06/30/2015 Comp Metabolic Muc450 ALT(SGPT) 23 U/L 06/30/2015 Comp Metabolic Dqp640 BILI T 0.5 mg/dL 06/30/2015 Comp Metabolic Upr180 ALBUMIN 4.0 g/dL 06/30/2015 Comp Metabolic Hcl834 TPRO 6.6 g/dL 06/30/2015 Comp Metabolic Vbb096 GLOB 2.6 g/dL 06/30/2015 Comp Metabolic Fuy540 A/G Ratio 1.5 Ratio 06/30/2015 Comp Metabolic Jfu189 Osmo 278 mOsmo 06/30/2015 Pt Bgh7555 PT 26.1 seconds 06/30/2015 Pt Nvf8376 INR 2.5 06/30/2015 Pt Irp8132 Low Intensity - 1.5-2.0 06/30/2015 Pt Jao2024 Mod intensity - 2.0-3.0 06/30/2015 Pt Fls9062 Hi intensity - 3.0-4.0 06/30/2015 Review of [...] time 03/25/2017 None Full Exam - General [facility] Psychiatric mood and affect Overall: normal mood [...] accomodation 12/02/2016 None Full Exam - General 1995 Ears/Nose/Throat otoscopic exam Tympanic membrane: air-fluid level [...] clear 11/21/2016 None Full Exam - General 1995 Ears/Nose/Throat lips/teeth/gingiva Overall: benign lips 11/21/2016 None [...] Procedure Codes Date DESTRUCT PREMALG LESION CPT-4: 01701 12/31/2018 DESTRUCT PREMALG LES 2-14 CPT-4: 73658 12/31/2018 OCCULT BLOOD FECES CPT- 4: 96797 04/08/2018 PPPS, SUBSEQ VISIT CPT- 4: G0439 04/03/2018 PPPS, SUBSEQ VISIT CPT- 4: G0439 10/31/2017 PRESCRIP TRANSMIT VIA ERX SY CPT-4: G8553 09/22/2017 THER/PROPH/DIAG INJ SC/IM CPT-4: 22048 01/21/2017 TRIAMCINOLONE ACET INJ NOS CPT-4: J3301 01/21/2017 THER/PROPH/DIAG INJ SC/IM CPT-4: 31234 12/30/2016 ROCEPHIN, PER 250 MG CPT- 4: J0696 12/30/2016 PPPS, SUBSEQ VISIT CPT- 4: G0439 10/25/2016 ROCEPHIN, PER 250 MG CPT- 4: J0696 06/24/2016 THER/PROPH/DIAG INJ SC/IM CPT-4: 94492 06/24/2016 Vital Signs Date Vital 12/31/2018 Blood Pressure 1: 140/80 Code: 8480-6 BMI: 29.0 Code: 49211-6 Heart Rate 1: 86 bpm Height: 5'8" SpO2: 97% Weight: 191 lbs 12/23/2018 Blood Pressure 1: 140/68 Code: 8480-6 BMI: 29.3 Code: 89083-5 Heart Rate 1: 70 bpm Height: 5'8" SpO2: 97% Weight: 193 lbs 04/03/2018 Blood Pressure 1: 128/72 Code: 8480-6 BMI: 29.8 Code: 81822-7 Heart Rate 1: 60 bpm Height: 5'8" SpO2: 96% Weight: 196 lbs 03/31/2018 Blood Pressure 1: 128/76 Code: 8480-6 BMI: 29.8 Code: 62914-1 Heart Rate 1: 56 bpm Height: 5'8" SpO2: 98% Weight: 196 lbs 11/26/2017 Blood Pressure 1: 156/76 Code: 8480-6 BMI: 29.6 Code: 40327-8 Heart Rate 1: 57 bpm Height: 5'8" SpO2: 98% Weight: 195 lbs 10/31/2017 Blood Pressure 1: 136/74 Code: 8480-6 BMI: 29.5 Code: 23365-0 Heart Rate 1: 56 bpm Height: 5'8" SpO2: 95% Waist Measure (cm): 91 cm Weight: 194 lbs 10/07/2017 Blood Pressure 1: 136/72 Code: 8480-6 BMI: 30.3 Code: 93613-1 Heart Rate 1: 58 bpm Height: 5'8" SpO2: 96% Weight: 199 lbs 09/22/2017 Blood Pressure 1: 138/78 Code: 8480-6 BMI: 30.4 Code: 51977-0 Heart Rate 1: 60 bpm Height: 5'8" SpO2: 98% Temperature: 36.6 (C) / 97.9 (F) Weight: 200 lbs 05/08/2017 Blood Pressure 1: 128/80 Code: 8480-6 BMI: 30.0 Code: 17218-9 Heart Rate 1: 75 bpm Height: 5'8" SpO2: 98% Weight: 197 lbs 03/25/2017 Blood Pressure 1: 150/80 Code: 8480-6 BMI: 30.1 Code: 64093-2 Heart Rate 1: 53 bpm Height: 5'8" SpO2: 98% Weight: 198 lbs 01/21/2017 Blood Pressure 1: 156/88 Code: 8480-6 BMI: 29.8 Code: 69949-0 Heart Rate 1: 95 bpm Height: 5'8" SpO2: 98% Temperature: 36.9 (C) / 98.4 (F) Weight: 196 lbs 12/30/2016 Blood Pressure 1: 122/74 Code: 8480-6 BMI: 29.8 Code: 40650-6 Heart Rate 1: 60 bpm Height: 5'8" SpO2: 96% Temperature: 37.1 (C) / 98.8 (F) Weight: 196 lbs 12/26/2016 Blood Pressure 1: 142/74 Code: 8480-6 BMI: 29.8 Code: 67869-5 Heart Rate 1: 58 bpm Height: 5'8" SpO2: 96% Temperature: 36.7 (C) / 98.0 (F) Weight: 196 lbs 12/02/2016 Blood Pressure 1: 128/78 Code: 8480-6 BMI: 30.3 Code: 66313-5 Heart Rate 1: 49 bpm Height: 5'8" SpO2: 98% Temperature: 36.5 (C) / 97.7 (F) Weight: 199 lbs 11/21/2016 Blood Pressure 1: 130/68 Code: 8480-6 BMI: 30.3 Code: 84836-4 Heart Rate 1: 54 bpm Height: 5'8" SpO2: 98% Weight: 199 lbs 10/25/2016 Blood Pressure 1: 150/92 Code: 8480-6 BMI: 29.8 Code: 97508-3 Heart Rate 1: 54 bpm Height: 5'8" SpO2: 97% Waist Measure (cm): 97 cm Weight: 196 lbs 10/23/2016 Blood Pressure 1: 150/92 Code: 8480-6 BMI: 29.9 Code: 10385-0 Heart Rate 1: 54 bpm Height: 5'8" SpO2: 98% Weight: 196 lbs 8 oz 07/29/2016 Blood Pressure 1: 144/72 Code: 8480-6 BMI: 30.3 Code: 70254-2 Heart Rate 1: 54 bpm Height: 5'8" SpO2: 98% Weight: 199 lbs 06/24/2016 Blood Pressure 1: 132/78 Code: 8480-6 BMI: 29.5 Code: 30992-7 Heart Rate 1: 59 bpm Height: 5'8" SpO2: 94% Weight: 194 lbs 02/21/2016 Blood Pressure 1: 138/84 Code: 8480-6 BMI: 30.3 Code: 87330-5 Heart Rate 1: 64 bpm Height: 5'8" SpO2: 95% Weight: 199 lbs 10/18/2015 Blood Pressure 1: 154/84 Code: 8480-6 Blood Pressure 1: 138/72 Code: 8480-6 BMI: 30.4 Code: 21523-8 Heart Rate 1: 68 bpm Height: 5'8" SpO2: 97% Weight: 200 lbs 05/02/2015 Blood Pressure 1: 114/64 Code: 8480-6 BMI: 29.0 Code: 30621-6 Heart Rate 1: 62 bpm Height: 5'8" [...] Performer Location Codes Date EST. PATIENT, LEVEL III Diagnosis: Diverticulitis of small intestine with perforation and abscess without bleeding[ICD10: K57.00] [facility] CPT-4: 52742 12/23/2018 ([id number]) [id number] EST. PATIENT, LEVEL III Diagnosis: Low back pain[ICD10: M54.5] Diagnosis: Muscle spasm of back[ICD10: M62.830] [facility] CPT-4: 99758 03/31/2018 ([id number]) [id number] EST. PATIENT, LEVEL III Diagnosis: Actinic keratosis[ICD10: L57.0] Diagnosis: Other hypertrophic disorders of the skin[ICD10: L91.8] [facility] CPT-4: 65080 11/26/2017 ([id number]) 09695 EST. PATIENT, LEVEL IV Diagnosis: Essential (primary) hypertension[ICD10: I10] Diagnosis: Mild cognitive impairment, so stated[ICD10: G31.84] Amanda Husain MD, [facility] CPT-4: 16685 10/07/2017 ([id number]) 38096 EST. PATIENT, LEVEL III Diagnosis: Pneumonia due to other streptococci[ICD10: J15.4] Diagnosis: Cough[ICD10: R05] Amanda Husain MD, [facility] CPT-4: 79477 09/22/2017 [id number] EST. PATIENT, LEVEL IV Diagnosis: Left lower quadrant pain[ICD10: R10.32] Diagnosis: Other fatigue[ICD10: R53.83] Gabrielle Husain MD, [facility] CPT-4: 06843 05/08/2017 ([id number]) 58952 EST. PATIENT, LEVEL III Diagnosis: Essential (primary) hypertension[ICD10: I10] Amanda Husain MD, [facility] CPT-4: 41061 03/25/2017 ([id number]) 49782 EST. PATIENT, LEVEL III Diagnosis: Cough[ICD10: R05] Diagnosis: Allergic rhinitis due to pollen[ICD10: J30.1] Leidy Husain MD, [facility] CPT-4: 15825 01/21/2017 15158 EST. PATIENT, LEVEL III Diagnosis: Other allergic rhinitis[ICD10: J30.89] Diagnosis: Cough[ICD10: R05] Gabrielle Husain MD, [facility] CPT-4: 34247 12/30/2016 ([id number]) 90950 EST. PATIENT, LEVEL III Diagnosis: Cough[ICD10: R05] Diagnosis: Pneumonia, unspecified organism[ICD10: J18.9] Leidy Husain MD, [facility] CPT-4: 59154 12/26/2016 ([id number]) 40506 EST. PATIENT, LEVEL III Diagnosis: Pneumonia due to other streptococci[ICD10: J15.4] Diagnosis: Cough[ICD10: R05] Amanda Husain MD, [facility] CPT-4: 09465 12/02/2016 ([id number]) 05700 EST. PATIENT, LEVEL III Diagnosis: Essential (primary) hypertension[ICD10: I10] Amanda Husain MD, [facility] CPT-4: 52165 11/21/2016 ([id number]) 87751 EST. PATIENT, LEVEL IV Diagnosis: Essential (primary) hypertension[ICD10: I10] Diagnosis: Mixed hyperlipidemia[ICD10: E78.2] Amanda Husain MD, [facility] CPT- 4: 76836 10/23/2016 21703 EST. PATIENT, LEVEL IV Diagnosis: Other allergic rhinitis[ICD10: J30.89] Diagnosis: Cough[ICD10: R05] Gabrielle Husain MD, [facility] CPT-4: 62290 07/29/2016 ([id number]) Miscellaneous no charge Diagnosis: Pneumonia, unspecified organism[ICD10: J18.9] Gabrielle Husain MD, [facility] CPT-4: 20654 06/27/2016 ([id number]) 39170 EST. PATIENT, LEVEL IV Diagnosis: Essential (primary) hypertension[ICD10: I10] Diagnosis: Pneumonia, unspecified organism[ICD10: J18.9] Diagnosis: Cough[ICD10: R05] Diagnosis: Mixed hyperlipidemia[ICD10: E78.2] Amanda Husain MD, [facility] CPT- 4: 09507 06/24/2016 ([id number]) 16791 EST. PATIENT, LEVEL IV Diagnosis: Mixed hyperlipidemia[ICD10: E78.2] Diagnosis: Essential (primary) hypertension[ICD10: I10] Diagnosis: Gastro-esophageal reflux disease without esophagitis[ICD10: K21.9] Amanda Husain MD, [facility] CPT-4: 51526 02/21/2016 ([id number]) 60417 EST. PATIENT, LEVEL IV Diagnosis: Essential (primary) hypertension[ICD10: I10] Diagnosis: Mixed hyperlipidemia[ICD10: E78.2] Diagnosis: Chronic lymphocytic 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[ICD10: C91.10] Amanda Husain MD, [facility] CPT-4: 37594 10/18/2015 ([id number]) OFFICE VISIT, NEW - LEVEL 3 Diagnosis: Diverticulitis[ICD9: 562.11] Amanda Husain MD, [facility] CPT-4: 47584 05/02/2015 Plan of Care Planned Activity Notes Codes Status Date Visit Plan: Actinic Keratosis - treated with cryotherapy x 3, pt advised on how to appropriately care for the lesion. Call if not improved after thorough healing - apply neosporin to skin lesions. 12/31/2018 Appointment: Amanda Husain WPtel: [phone] [facility] (30 min) Complex 12/31/2018 Patient Education: Patient Medication Summary Completed 12/31/2018 Visit Plan: Diverticulitis - rx for antibiotic sent to pt's pharmacy - pt advised to avoid seeds, nuts, popcorn, or any other food which has been proven to upset the pt's stomach. 12/23/2018 Appointment: Gabrielle Corona WPtel: [phone] [phone] (15 min) Moderate 12/23/2018 Patient Education: Patient Medication Summary Completed 12/23/2018 Appointment: Gabrielle Corona WPtel: [facility]6 [phone] (30 min) Complex 12/16/2018 Appointment: Lab Draw [...] not improve. 03/31/2018 Appointment: Leidy Angulo WPtel: [facility] [place] [phone] (15 min) Moderate 03/31/2018 Patient Education: Patient Medication Summary Completed 03/31/2018 Visit Plan: Wound Instructions - Pt was instructed to keep the wound clean, wash with antibacterial soap, use triple antibiotic ointment, call if redness, pustular drainage, or any other acute concerns. 11/26/2017 Appointment: Amanda Husain WPtel: [address] [place], [place] [phone] Surgical Procedure 11/26/2017 Patient Education: Patient Medication [...] care surrogate. 10/31/2017 Appointment: Leidy Angulo WPtel: [facility]5 [phone] [facility] - Annual Wellness Visit 10/31/2017 Patient [...] memory loss. 10/07/2017 Appointment: Amanda Husain WPtel: [facility]4 [facility] (30 min) Complex 10/07/2017 Patient Education: Patient Medication Summary Completed 10/07/2017 Patient Education: Obesity Completed 10/07/2017 Patient Education: Hypertension Completed 10/07/2017 Visit Plan: Pneumonia - Pt has been diagnosed with pneumonia by physical exam. Antibiotics have been ordered. The pt is aware of the diagnosis and the need for acute treatment of this illness. 09/22/2017 Appointment: Amanda Husain WPtel: [facility] (15 min) Moderate 09/22/2017 Patient Education: Patient [...] or concerns. 05/08/2017 Appointment: Gabrielle Corona WPtel: [facility]3 [phone] (30 min) Complex 05/08/2017 Patient Education: Patient [...] 10mg daily. 03/25/2017 Appointment: Amanda Husain WPtel: [facility] [place] (15 min) Moderate 03/25/2017 Patient Education: Patient Medication Summary Completed 03/25/2017 Appointment: Leidy Angulo WPtel: [address] [place], [place] [phone] [place] (15 min) Moderate 01/31/2017 Visit Plan: URI/Allergies - Pt advised to increase fluids, vitamin C. Discussed natural and expected course of this diagnosis and need to alert me if symptoms do not follow expected course, or if any worse. RX sent to patient's pharmacy. 01/21/2017 Appointment: Leidy Angulo WPtel: [facility]6 [phone] [place] (15 min) Moderate 01/21/2017 Patient Education: [...] the medication. 12/30/2016 Appointment: Leidy Angulo WPtel: [address] [place], [place] [phone] [place] (15 min) Moderate 12/30/2016 Appointment: Gabrielle Corona WPtel: [address] [place], [place] [phone] [place] (30 min) Complex 12/30/2016 Patient Education: [...] the levaquin. 12/26/2016 Appointment: Leidy Angulo WPtel: [facility]2 [phone] [place] (15 min) Moderate 12/26/2016 Patient Education: [...] home. 11/21/2016 [facility]ment: [phone] ([facility] min) [facility] 11/21/2016 Patient Education: Patient Medication Summary Completed [...] care surrogate. 10/25/2016 [facility]ment: [phone] [facility] - Annual Wellness Visit 10/25/2016 Patient [...] to medications. 10/23/2016 Appointment: Amanda Husain WPtel: [facility] (15 min) Moderate 10/23/2016 Patient Education: Patient [...] any concerns. 07/29/2016 Appointment: Gabrielle Corona WPtel: [facility] (15 min) Moderate 07/29/2016 Patient Education: Patient [...] to medications. 06/24/2016 Appointment: Amanda Husain WPtel: [address] [place], [place] [id number] (15 min) Moderate 06/24/2016 Patient Education: Patient [...] not improving. 02/21/2016 Appointment: Rodrigue Amanda [facility]Ptel[facility] (15 min) Moderate 02/21/2016 Patient Education: [...] Care Plan: COMPLETE CBC AUTOMATED LOINC : 00767-4 Ordered 05/02/2015 Care Plan: ASSAY OF [employer]OPONIN [...] Come back Friday to recheck PT/INR . Medicare Exam - today we discussed [...] DOPA paperwork for health care surrogate. . Low back pain- recommend rest, tiger [...] Husain-hold amiodarone while on the levaquin. . Diverticulitis - rx for antibiotic sent [...] healing - apply neosporin to skin lesions. Better Weekdays or Silith[employer]IO - take three times daily x 7 [...]
--- OUTSIDE RECORDS SUMMARY | 2019-05-19 10:43 | XMS REPORT | CCD ---
Author Author Amanda Celestin MD, [facility] Address [address] [place] [address] Phone Care Team Providers Care Nurse Supervisor Name Role Phone PP Unavailable CCM Unavailable Summary Purpose Interface Exchange Insurance Providers Payer name Policy type / Coverage type Covered democrat ID Effective Begin Date Effective End Date WPS Medicare Part B [id number] Unknown Hired Life Insurance [id number] Unknown Family history Brother Diagnosis Age At [...] Unknown Retired 05/02/[address]: 5491767 Former smoker Quit in 1966 05/02/2015 Number [...] Instructions Zithromax Z-Carlo 250 mg tablet RxNorm: 384335 2 Tablet(s) PO on 1 st day then 1 daily x 4 days ZPACK X 1 01/15/2019 No Stop Date Active metronidazole 500 mg tablet RxNorm: 008090 1 Tablet(s) PO TID 12/23/2018 01/01/2019 Inactive omeprazole 20 mg capsule,delayed release RxNorm: 460028 TAKE 1 CAPSULE BY MOUTH ONCE DAILY 12/07/2018 No Stop Date Active metoprolol tartrate 25 mg tablet RxNorm: 931217 Tablet(s) TAKE 1 TABLET BY MOUTH TWICE DAILY 10/16/2018 No Stop Date Active metoprolol tartrate 25 mg tablet RxNorm: 164646 TAKE 1 TABLET BY MOUTH TWICE DAILY 07/13/2018 10/15/2018 Inactive Trilipix 135 mg capsule,delayed release RxNorm: 100769 1 Capsule(s) PO daily 06/17/2018 10/14/2018 Inactive ramipril 10 mg capsule RxNorm: 662782 TAKE ONE CAPSULE BY MOUTH ONCE DAILY 06/15/2018 No Stop Date Active omeprazole 20 mg capsule,delayed release RxNorm: 454806 Capsule(s) TAKE ONE CAPSULE BY MOUTH ONCE DAILY 06/03/2018 No Stop Date Active omeprazole 20 mg capsule,delayed release RxNorm: 825495 Capsule(s) TAKE ONE CAPSULE BY MOUTH ONCE DAILY 06/02/2018 06/02/2018 Inactive metoprolol tartrate 25 mg tablet RxNorm: 240473 TAKE ONE TABLET BY MOUTH TWICE DAILY 02/16/2018 07/12/2018 Inactive omeprazole 20 mg capsule,delayed release RxNorm: 410216 TAKE ONE CAPSULE BY MOUTH ONCE DAILY 01/05/2018 06/01/2018 Inactive metoprolol tartrate 25 mg tablet RxNorm: 089012 TAKE ONE TABLET BY MOUTH TWICE DAILY 10/27/2017 02/15/2018 Inactive azithromycin 250 mg tablet RxNorm: 319073 1 Tablet(s) PO UD 2 tabs on day #1, then 1 pill daily x 4 days 09/22/2017 11/25/2017 Inactive omeprazole 20 mg capsule,delayed release RxNorm: 675316 TAKE ONE CAPSULE BY MOUTH ONCE DAILY 06/16/2017 12/12/2017 Inactive metronidazole 500 mg tablet RxNorm: 384755 1 Tablet(s) PO TID 05/08/2017 05/14/2017 Inactive ramipril 10 mg capsule RxNorm: 041641 1 Capsule(s) PO daily 03/25/2017 03/19/2018 Inactive Kenalog 40 mg/mL suspension for injection RxNorm: 2160332 Milliliter(s) Inj 01/21/2017 01/21/2017 Inactive ceftriaxone 500 mg solution for injection RxNorm: 0799380 Inj 12/30/2016 12/30/2016 Inactive Phenergan with Codeine Syrup RxNorm: 5-10 Milliliter(s) PO Q6 PRN 12/26/2016 No Stop Date Active Levaquin 500 mg tablet RxNorm: 528903 1 Tablet(s) PO daily 12/26/2016 01/01/2017 Inactive Tessalon Perles 100 mg capsule RxNorm: 311154 1 Capsule(s) PO TID as needed 12/26/2016 01/04/2017 Inactive prednisone 20 mg tablet RxNorm: 657475 1 Tablet(s) PO BID 12/26/2016 12/30/2016 Inactive omeprazole 20 mg capsule,delayed release RxNorm: 623173 TAKE ONE CAPSULE BY MOUTH ONCE DAILY 12/16/2016 06/13/2017 Inactive cefdinir 300 mg capsule RxNorm: 508554 1 Capsule(s) PO BID 12/02/2016 12/08/2016 Inactive azithromycin 250 mg tablet RxNorm: 400840 Tablet(s) 2 tabs on day #1, then one tab PO daily x 4 more days 12/02/2016 12/25/2016 Inactive metoprolol tartrate 25 mg tablet RxNorm: 676490 1 Tablet(s) PO BID 10/23/2016 10/17/2017 Inactive metoprolol tartrate 25 mg tablet RxNorm: 338105 1 Tablet(s) PO BID 10/23/2016 10/22/2016 Inactive ceftriaxone 500 mg solution for injection RxNorm: 8606331 Inj 06/24/2016 06/24/2016 Inactive cefdinir 300 mg capsule RxNorm: 445736 1 Capsule(s) PO BID 06/24/2016 06/30/2016 Inactive omeprazole 20 mg capsule,delayed release RxNorm: 044754 TAKE ONE CAPSULE BY MOUTH DAILY 06/07/2016 12/03/2016 Inactive omeprazole 20 mg capsule,delayed release RxNorm: 396789 TAKE ONE CAPSULE BY MOUTH DAILY 01/29/2016 05/27/2016 Inactive metoprolol tartrate 50 mg tablet RxNorm: 415505 Tablet(s) TAKE ONE TABLET BY MOUTH DAILY 10/11/2015 10/10/2015 Inactive metoprolol tartrate 50 mg tablet RxNorm: 323386 TAKE ONE TABLET BY MOUTH DAILY 10/11/2015 10/22/2016 Inactive omeprazole 20 mg capsule,delayed release RxNorm: 524582 TAKE ONE CAPSULE BY MOUTH DAILY 08/28/2015 01/24/2016 Inactive metoprolol tartrate 50 mg tablet RxNorm: 124615 TAKE ONE TABLET BY MOUTH DAILY 08/11/2015 10/09/2015 Inactive metoprolol tartrate 50 mg tablet RxNorm: 436016 1 Tablet(s) PO daily 06/14/2015 08/10/2015 Inactive omeprazole 20 mg capsule,delayed release RxNorm: 587338 1 Capsule(s) PO daily 05/29/2015 08/26/2015 Inactive omeprazole 20 mg capsule,delayed release RxNorm: 497308 1 Capsule(s) PO daily 05/29/2015 05/28/2015 Inactive metronidazole 500 mg tablet RxNorm: 046994 1 Tablet(s) PO TID 05/02/2015 05/08/2015 Inactive finasteride 5 mg tablet RxNorm: 375926 1 Tablet(s) PO daily No Start Date Active warfarin 5 mg tablet RxNorm: 299428 1 Tablet(s) PO daily No Start Date Active Aspirin Childrens 81 mg chewable tablet RxNorm: 082335 1 Tablet(s) PO daily No Start Date Active amiodarone 200 mg tablet RxNorm: 620273 1 Tablet(s) PO daily No Start Date Active vitamin E (dl, acetate) 1,000 unit capsule RxNorm: 115665 1 Capsule(s) PO daily No Start Date Active atorvastatin 80 mg tablet RxNorm: 784462 1 Tablet(s) PO daily No Start Date Active Fish Oil 120 mg-180 mg capsule RxNorm: 794874 1 Capsule(s) PO BID No Start Date 10/30/2017 Inactive metoprolol tartrate 50 mg tablet RxNorm: 959743 1 Tablet(s) PO daily No Start Date 06/13/2015 Inactive Zetia 10 mg tablet RxNorm: 368785 1 Tablet(s) PO daily No Start Date 10/17/2015 Inactive ramipril 5 mg capsule RxNorm: 321037 1 Capsule(s) PO daily No Start Date 03/24/2017 Inactive Tessalon Perles 100 mg capsule RxNorm: 280751 1 Capsule(s) PO TID as needed No Start Date 12/25/2016 Inactive omeprazole 20 mg capsule,delayed release RxNorm: 050849 1 Capsule(s) PO daily No Start Date 05/28/2015 Inactive Zithromax Z-Carlo 250 mg tablet RxNorm: 295803 2 Tablet(s) PO on 1 st day then 1 daily x 4 days ZPACK X 1 No Start Date 01/14/2019 Inactive Trilipix 135 mg capsule,delayed release RxNorm: 589288 1 Capsule(s) PO daily No Start Date 06/16/2018 Inactive Centrum Silver tablet RxNorm: 1 Tablet(s) PO daily No Start Date 10/30/2017 Inactive Medication Administered Medication Codes Instructions Start Date Status Kenalog 40 mg/mL suspension for injection RxNorm: 9557693 Milliliter 01/21/2017 No longer Active ceftriaxone 500 mg solution for injection RxNorm: 2680162 12/30/2016 No longer Active ceftriaxone 500 mg solution for injection RxNorm: 2902650 06/24/2016 No longer Active Immunizations Vaccine Codes [...] Code Item Item Code Result Date Pt Iik9945 PT 20.2 seconds 03/19/2019 Pt Fnh9006 INR 1.8 03/19/2019 Pt Sun9619 Low Intensity - 1.5-2.0 03/19/2019 Pt Xgv8700 Mod intensity - 2.0-3.0 03/19/2019 Pt Jmn8700 Hi intensity - 3.0-4.0 03/19/2019 Pt Aiz8259 PT 29.7 seconds 03/03/2019 Pt Lpk8325 INR 2.9 03/03/2019 Pt Epq8780 Low Intensity - 1.5-2.0 03/03/2019 Pt Bav4112 Mod intensity - 2.0-3.0 03/03/2019 Pt Yvl0108 Hi intensity - 3.0-4.0 03/03/2019 Pt Mvo8856 PT 27.9 seconds 02/24/2019 Pt Ett9252 INR 2.7 02/24/2019 Pt Nrc2816 Low Intensity - 1.5-2.0 02/24/2019 Pt Ilz0555 Mod intensity - 2.0-3.0 02/24/2019 Pt Wfx0939 Hi intensity - 3.0-4.0 02/24/2019 Pt Msm1311 PT 16.6 seconds 02/15/2019 Pt Tik9309 INR 1.4 02/15/2019 Pt Jxe1347 Low Intensity - 1.5-2.0 02/15/2019 Pt Kad3900 Mod intensity - 2.0-3.0 02/15/2019 Pt Prs6036 Hi intensity - 3.0-4.0 02/15/2019 Pt Boy7772 PT 16.6 seconds 02/05/2019 Pt Kkx4946 INR 1.4 02/05/2019 Pt Coj5784 Low Intensity - 1.5-2.0 02/05/2019 Pt Kro5773 Mod intensity - 2.0-3.0 02/05/2019 Pt Aal8049 Hi intensity - 3.0-4.0 02/05/2019 Pt Cjt4226 PT 39.6 seconds 02/01/2019 Pt Noi2091 INR 4.1 02/01/2019 Pt Qdc0767 Low Intensity - 1.5-2.0 02/01/2019 Pt Tes6193 Mod intensity - 2.0-3.0 02/01/2019 Pt Zsl1178 Hi intensity - 3.0-4.0 02/01/2019 Pt Khm6886 PT 31.9 seconds 01/20/2019 Pt Wbx4870 INR 3.1 01/20/2019 Pt Hxp9958 Low Intensity - 1.5-2.0 01/20/2019 Pt Gnk7204 Mod intensity - 2.0-3.0 01/20/2019 Pt Jsq6306 Hi intensity - 3.0-4.0 01/20/2019 Pt Sht0098 PT 21.0 seconds 01/12/2019 Pt Uwh1156 INR 1.9 01/12/2019 Pt Sho8571 Low Intensity - 1.5-2.0 01/12/2019 Pt Wzx2068 Mod intensity - 2.0-3.0 01/12/2019 Pt Xse3440 Hi intensity - 3.0-4.0 01/12/2019 Pt Nga4779 PT 31.8 seconds 01/07/2019 Pt Goe9924 INR 3.1 01/07/2019 Pt Aqp2959 Low Intensity - 1.5-2.0 01/07/2019 Pt Rcp9620 Mod intensity - 2.0-3.0 01/07/2019 Pt Jcb3522 Hi intensity - 3.0-4.0 01/07/2019 Pt Myv4480 PT 48.2 seconds 01/05/2019 Pt Szg0819 INR 5.2 01/05/2019 Pt Eop6595 Low Intensity - 1.5-2.0 01/05/2019 Pt Wdp2534 Mod intensity - 2.0-3.0 01/05/2019 Pt Siw3860 Hi intensity - 3.0-4.0 01/05/2019 Pt Cpo2104 PT 17.6 seconds 12/25/2018 Pt Vdx1810 INR 1.5 12/25/2018 Pt Dtl9416 Low Intensity - 1.5-2.0 12/25/2018 Pt Myc2828 Mod intensity - 2.0-3.0 12/25/2018 Pt Raa4627 Hi intensity - 3.0-4.0 12/25/2018 Cbc With [...] 30.0 pg 12/10/2018 Cbc With Differential Ord2 Bladen% 10.5 % 12/10/2018 Cbc With Differential Ord2 [...] 2.09 K/ul 12/10/2018 Cbc With Differential Ord2 [place] ABS# 0.8 K/ul 12/10/2018 Cbc With Differential Ord2 Eos ABS# 0.4 K/ul 12/10/2018 Cbc With Differential Ord2 Baso ABS# 0.0 K/ul 12/10/2018 Uric Acid Ord77 Uric A 4.6 mg/dL 12/10/2018 Random Urine Protein/Creatinine Ratio Ftz9049 U Prot 9.0 mg/dl 12/10/2018 Random Urine Protein/Creatinine Ratio Aie3420 U CREAT 126.0 mg/dL 12/10/2018 Random Urine Protein/Creatinine Ratio Smr0403 R MTP/Creat Ratio 0.07 12/10/2018 Ferritin Ord22 FERRITIN 47.9 ng/mL 12/10/2018 Renal Dnf113 NA 142 mEq/L 12/10/2018 Renal Uig170 K 4.3 mEq/L 12/10/2018 Renal Iyp614 CL 106 mEq/L 12/10/2018 Renal Byp913 CO2 30.0 mEq/L 12/10/2018 Renal Kfl303 ANION GAP 10 12/10/2018 Renal Gdb525 Osmo 286 mOsmo 12/10/2018 Renal Ujd348 GLUCOSE 105 mg/dL 12/10/2018 Renal Cgs353 BUN 20 mg/dL 12/10/2018 Renal Rvp257 Creat 1.4 mg/dL 12/10/2018 Renal Hfz241 eGFR 52 ml/min/1.73m2 12/10/2018 Renal Ekg589 B/C Ratio 14.1 Ratio 12/10/2018 Renal Gjv376 CALCIUM 9.7 mg/dL 12/10/2018 Renal Fzi597 PHOS 3.3 mg/dL 12/10/2018 Renal Lau555 ALBUMIN 4.0 g/dL 12/10/2018 Urinalysis Ord28 U-Color [...] 17.8 % 12/10/2018 Vitamin D 25 Oh Big4605 VITAMIN D, 25 HYDROXY 27.29 ng/mL 12/10/2018 Pt Hun8221 PT 23.1 seconds 11/05/2018 Pt Dxv2632 INR 2.1 11/05/2018 Pt Xig6263 Low Intensity - 1.5-2.0 11/05/2018 Pt Bcd2340 Mod intensity - 2.0-3.0 11/05/2018 Pt Fzu3205 Hi intensity - 3.0-4.0 11/05/2018 Pt Lnm2517 PT 29.8 seconds 08/17/2018 Pt Azy4661 INR 2.8 08/17/2018 Pt Egt3265 Low Intensity - 1.5-2.0 08/17/2018 Pt Nzz4541 Mod intensity - 2.0-3.0 08/17/2018 Pt Hhs6391 Hi intensity - 3.0-4.0 08/17/2018 Pt Uor3124 PT 27.7 seconds 05/18/2018 Pt Uhy6980 INR 2.6 05/18/2018 Pt Fpj3740 Low Intensity - 1.5-2.0 05/18/2018 Pt Atk8329 Mod intensity - 2.0-3.0 05/18/2018 Pt Hpl5099 Hi intensity - 3.0-4.0 05/18/2018 Uric Acid [...] 30.9 pg 05/18/2018 Cbc With Differential Ord2 Bl[place]% 13.8 % 05/18/2018 Cbc With Differential Ord2 [...] 1.94 K/ul 05/18/2018 Cbc With Differential Ord2 [place] ABS# 0.9 K/ul 05/18/2018 Cbc With Differential Ord2 Eos ABS# 0.4 K/ul 05/18/2018 Cbc With Differential Ord2 Baso ABS# 0.0 K/ul 05/18/2018 Random Urine Protein/Creatinine Ratio Txj7079 U Prot 7.0 mg/dl 05/18/2018 Random Urine Protein/Creatinine Ratio Ztd5713 U CREAT 75.0 mg/dL 05/18/2018 Random Urine Protein/Creatinine Ratio Qgk8427 R MTP/Creat Ratio 0.09 05/18/2018 Vitamin D 25 Oh Ejp6662 VITAMIN D, 25 HYDROXY 27.40 ng/mL 05/18/2018 Tibc Ord40 Iron 68 ug/dl 05/18/2018 Tibc Ord40 UIBC 308 ug/dL 05/18/2018 Tibc Ord40 TIBC 376 ug/dL 05/18/2018 Tibc Ord40 Fe-%Sat 18.1 % 05/18/2018 Parathyroid Hormone Aju962 PTH 36.20 pg/ml 05/18/2018 Urinalysis Ord28 U-Color [...] hours from collection if refrigerated) 05/18/2018 Renal Bdp888 NA 141 mEq/L 05/18/2018 Renal Lqs836 K 4.0 mEq/L 05/18/2018 Renal Hoc811 CL 107 mEq/L 05/18/2018 Renal Tkj705 CO2 27.0 mEq/L 05/18/2018 Renal Ipp233 ANION GAP 11 05/18/2018 Renal Nzj249 Osmo 282 mOsmo 05/18/2018 Renal Hrj218 GLUCOSE 83 mg/dL 05/18/2018 Renal Fum055 BUN 18 mg/dL 05/18/2018 Renal Yoa914 Creat 1.4 mg/dL 05/18/2018 Renal Hre401 eGFR 55 ml/min/1.73m2 05/18/2018 Renal Pwk927 B/C Ratio 13.3 Ratio 05/18/2018 Renal Aou684 CALCIUM 9.0 mg/dL 05/18/2018 Renal Dkd633 PHOS 2.9 mg/dL 05/18/2018 Renal Llv860 ALBUMIN 4.0 g/dL 05/18/2018 Ferritin Ord22 FERRITIN [...] Metabolic Ord15 CALCIUM 9.2 mg/dL 03/23/2018 Pt Ybh2419 PT 29.0 seconds 03/13/2018 Pt Sun9830 INR 2.7 03/13/2018 Pt Udm9959 Low Intensity - 1.5-2.0 03/13/2018 Pt Awd0540 Mod intensity - 2.0-3.0 03/13/2018 Pt Bno1648 Hi intensity - 3.0-4.0 03/13/2018 Pt Mev4833 PT 31.6 seconds 03/04/2018 Pt Rjn5027 INR 3.0 03/04/2018 Pt Toa0225 Low Intensity - 1.5-2.0 03/04/2018 Pt Bku5492 Mod intensity - 2.0-3.0 03/04/2018 Pt Mnm4235 Hi intensity - 3.0-4.0 03/04/2018 Pt Vsk7711 PT 33.3 seconds 01/29/2018 Pt Njk6534 INR 3.2 01/29/2018 Pt Vvs8371 Low Intensity - 1.5-2.0 01/29/2018 Pt Cwt7452 Mod intensity - 2.0-3.0 01/29/2018 Pt Ovi5299 Hi intensity - 3.0-4.0 01/29/2018 Pt Nkn9232 PT 26.1 seconds 01/21/2018 Pt Hrw4306 INR 2.4 01/21/2018 Pt Qmn4984 Low Intensity - 1.5-2.0 01/21/2018 Pt Sqq2577 Mod intensity - 2.0-3.0 01/21/2018 Pt Nmc3768 Hi intensity - 3.0-4.0 01/21/2018 Pt Nax7955 PT 35.7 seconds 01/09/2018 Pt Bfb5776 INR 3.5 01/09/2018 Pt Msl4042 Low Intensity - 1.5-2.0 01/09/2018 Pt Ncc2007 Mod intensity - 2.0-3.0 01/09/2018 Pt Pcm9947 Hi intensity - 3.0-4.0 01/09/2018 Pt Obj3461 PT 23.8 seconds 12/04/2017 Pt Lhk1074 INR 2.1 12/04/2017 Pt Klj2993 Low Intensity - 1.5-2.0 12/04/2017 Pt Adc8470 Mod intensity - 2.0-3.0 12/04/2017 Pt Uib9136 Hi intensity - 3.0-4.0 12/04/2017 Pt Kjn3443 PT 32.3 seconds 11/12/2017 Pt Qjz6169 INR 3.1 11/12/2017 Pt Qfq8998 Low Intensity - 1.5-2.0 11/12/2017 Pt Bsa8854 Mod intensity - 2.0-3.0 11/12/2017 Pt Bta8111 Hi intensity - 3.0-4.0 11/12/2017 Urinalysis Ord28 [...] hours from collection if refrigerated) 10/20/2017 Pt Qgy6887 PT 16.6 seconds 10/20/2017 Pt Akk4601 INR 1.4 10/20/2017 Pt Hxk2451 Low Intensity - 1.5-2.0 10/20/2017 Pt Hex4606 Mod intensity - 2.0-3.0 10/20/2017 Pt Cio5856 Hi intensity - 3.0-4.0 10/20/2017 Renal Tqo965 NA 142 mEq/L 10/20/2017 Renal Psu411 K 4.5 mEq/L 10/20/2017 Renal Ucj932 CL 107 mEq/L 10/20/2017 Renal Xrk505 CO2 28.0 mEq/L 10/20/2017 Renal Kch414 ANION GAP 12 10/20/2017 Renal Clm427 Osmo 288 mOsmo 10/20/2017 Renal Hgn046 GLUCOSE 96 mg/dL 10/20/2017 Renal Zsl178 BUN 27 mg/dL 10/20/2017 Renal Drl248 Creat 1.6 mg/dL 10/20/2017 Renal Rag098 eGFR 46 ml/min/1.73m2 10/20/2017 Renal Nim995 B/C Ratio 17.2 Ratio 10/20/2017 Renal Jdy919 CALCIUM 9.4 mg/dL 10/20/2017 Renal Lvc046 PHOS 3.0 mg/dL 10/20/2017 Renal Ebi221 ALBUMIN 4.2 g/dL 10/20/2017 Pt Nkj9618 PT 31.2 seconds 10/17/2017 Pt Fff5039 INR 3.0 10/17/2017 Pt Nfd7723 Low Intensity - 1.5-2.0 10/17/2017 Pt Iub0036 Mod intensity - 2.0-3.0 10/17/2017 Pt Vfo3386 Hi intensity - 3.0-4.0 10/17/2017 Comp Metabolic Yeo045 NA 139 mEq/L 05/08/2017 Comp Metabolic Bdy477 K 4.1 mEq/L 05/08/2017 Comp Metabolic Dwi415 CL 103 mEq/L 05/08/2017 Comp Metabolic Hzn622 CO2 28.0 mEq/L 05/08/2017 Comp Metabolic Psd029 ANION GAP 12 05/08/2017 Comp Metabolic Zbe934 GLUCOSE 75 mg/dL 05/08/2017 Comp Metabolic Xsx513 Creat 1.3 mg/dL 05/08/2017 Comp Metabolic Agq019 eGFR 55 ml/min/1.73m2 05/08/2017 Comp Metabolic Rax714 BUN 20 mg/dL 05/08/2017 Comp Metabolic Hyw880 B/C Ratio 14.9 Ratio 05/08/2017 Comp Metabolic Gtv712 CALCIUM 8.8 mg/dL 05/08/2017 Comp Metabolic Uuj927 ALK PHOS 51 U/L 05/08/2017 Comp Metabolic Hdk024 AST(SGOT) 30 U/L 05/08/2017 Comp Metabolic Tnv715 ALT(SGPT) 31 U/L 05/08/2017 Comp Metabolic Mwg807 BILI T 0.9 mg/dL 05/08/2017 Comp Metabolic Pnh742 ALBUMIN 4.0 g/dL 05/08/2017 Comp Metabolic Ugu626 TPRO 6.5 g/dL 05/08/2017 Comp Metabolic Vvw135 GLOB 2.6 g/dL 05/08/2017 Comp Metabolic Suj232 A/G Ratio 1.5 Ratio 05/08/2017 Comp Metabolic Use689 Osmo 279 mOsmo 05/08/2017 Cbc With Differential [...] 31.5 pg 05/08/2017 Cbc With Differential Ord2 [place]% 13.5 % 05/08/2017 Cbc With Differential Ord2 [...] 1.29 K/ul 05/08/2017 Cbc With Differential Ord2 [place] ABS# 1.1 K/ul 05/08/2017 Cbc With Differential Ord2 Eos ABS# 0.2 K/ul 05/08/2017 Cbc With Differential Ord2 Baso ABS# 0.0 K/ul 05/08/2017 Pt Uvi7994 PT 22.7 seconds 11/22/2016 Pt Idd5661 INR 2.1 11/22/2016 Pt Jwy3623 Low Intensity - 1.5-2.0 11/22/2016 Pt Usz3007 Mod intensity - 2.0-3.0 11/22/2016 Pt Oae4634 Hi intensity - 3.0-4.0 11/22/2016 Pt Gmx4733 PT 24.4 seconds 10/25/2016 Pt Mxf2090 INR 2.3 10/25/2016 Pt Pzx5280 Low Intensity - 1.5-2.0 10/25/2016 Pt Krv7882 Mod intensity - 2.0-3.0 10/25/2016 Pt Dis0527 Hi intensity - 3.0-4.0 10/25/2016 Pt Qjg2715 PT 23.5 seconds 09/04/2016 Pt Bxn8798 INR 2.2 09/04/2016 Pt Uup5445 Low Intensity - 1.5-2.0 09/04/2016 Pt Few2865 Mod intensity - 2.0-3.0 09/04/2016 Pt Xxp8220 Hi intensity - 3.0-4.0 09/04/2016 Pt Sgp6564 PT 26.1 seconds 07/09/2016 Pt Kor9641 INR 2.6 07/09/2016 Pt Jqq1031 Low Intensity - 1.5-2.0 07/09/2016 Pt Dnd0185 Mod intensity - 2.0-3.0 07/09/2016 Pt Xwb6276 Hi intensity - 3.0-4.0 07/09/2016 Pt Rff3703 PT 19.4 seconds 06/24/2016 Pt Yox2696 INR 1.7 06/24/2016 Pt Buz9808 Low Intensity - 1.5-2.0 06/24/2016 Pt Hoi0593 Mod intensity - 2.0-3.0 06/24/2016 Pt Zsr7174 Hi intensity - 3.0-4.0 06/24/2016 Pt Lhx4419 PT 28.9 seconds 04/26/2016 Pt Tqq8677 INR 2.9 04/26/2016 Pt Yqb8205 Low Intensity - 1.5-2.0 04/26/2016 Pt Wtk3545 Mod intensity - 2.0-3.0 04/26/2016 Pt Nsq6987 Hi intensity - 3.0-4.0 04/26/2016 Tsh Ord6 hTSH II 1.21 uIU/mL 02/29/2016 Pt Lja8384 PT 21.8 seconds 02/29/2016 Pt Vjb2180 INR 2.0 02/29/2016 Pt Yjj4229 Low Intensity - 1.5-2.0 02/29/2016 Pt Ciu2897 Mod intensity - 2.0-3.0 02/29/2016 Pt Hmp7168 Hi intensity - 3.0-4.0 02/29/2016 Lipid Ord30 [...] Ord2 RDW 16.2 % 06/30/2015 Comp Metabolic Zzy974 NA 138 mEq/L 06/30/2015 Comp Metabolic Oer305 K 4.8 mEq/L 06/30/2015 Comp Metabolic Xmv014 CL 107 mEq/L 06/30/2015 Comp Metabolic Smi471 CO2 27.0 mEq/L 06/30/2015 Comp Metabolic Gzk059 ANION GAP 9 06/30/2015 Comp Metabolic Bud112 GLUCOSE 98 mg/dL 06/30/2015 Comp Metabolic Dgi519 Creat 1.8 mg/dL 06/30/2015 Comp Metabolic Zze379 eGFR 40 ml/min/1.73m2 06/30/2015 Comp Metabolic Ter085 BUN 20 mg/dL 06/30/2015 Comp Metabolic Grg100 B/C Ratio 11.1 Ratio 06/30/2015 Comp Metabolic Wcj790 CALCIUM 9.1 mg/dL 06/30/2015 Comp Metabolic War780 ALK PHOS 39 U/L 06/30/2015 Comp Metabolic Odw422 AST(SGOT) 21 U/L 06/30/2015 Comp Metabolic Jdp019 ALT(SGPT) 23 U/L 06/30/2015 Comp Metabolic Pom846 BILI T 0.5 mg/dL 06/30/2015 Comp Metabolic Wkp533 ALBUMIN 4.0 g/dL 06/30/2015 Comp Metabolic Vgk755 TPRO 6.6 g/dL 06/30/2015 Comp Metabolic Jne251 GLOB 2.6 g/dL 06/30/2015 Comp Metabolic Huk363 A/G Ratio 1.5 Ratio 06/30/2015 Comp Metabolic Yhq107 Osmo 278 mOsmo 06/30/2015 Pt Cog0151 PT 26.1 seconds 06/30/2015 Pt Elh9517 INR 2.5 06/30/2015 Pt Xli5991 Low Intensity - 1.5-2.0 06/30/2015 Pt Hut6558 Mod intensity - 2.0-3.0 06/30/2015 Pt Gjb5275 Hi intensity - 3.0-4.0 06/30/2015 Review of [...] lips 12/23/2018 None Full Exam - General 1995 Ears/Nose/Throat oral cavity/pharynx/larynx Overall: oral mucosa clear [...] Procedure Codes Date DESTRUCT PREMALG LESION CPT-4: 56981 12/31/2018 DESTRUCT PREMALG LES 2-14 CPT-4: 57542 12/31/2018 OCCULT BLOOD FECES CPT- 4: 56649 04/08/2018 PPPS, SUBSEQ VISIT CPT- 4: G0439 04/03/2018 PPPS, SUBSEQ VISIT CPT- 4: G0439 10/31/2017 PRESCRIP TRANSMIT VIA ERX SY CPT-4: G8553 09/22/2017 THER/PROPH/DIAG INJ SC/IM CPT-4: 09635 01/21/2017 TRIAMCINOLONE ACET INJ NOS CPT-4: J3301 01/21/2017 THER/PROPH/DIAG INJ SC/IM CPT-4: 03119 12/30/2016 ROCEPHIN, PER 250 MG CPT- 4: J0696 12/30/2016 PPPS, SUBSEQ VISIT CPT- 4: G0439 10/25/2016 ROCEPHIN, PER 250 MG CPT- 4: J0696 06/24/2016 THER/PROPH/DIAG INJ SC/IM CPT-4: 22512 06/24/2016 Vital Signs Date Vital 12/31/2018 Blood Pressure 1: 140/80 Code: 8480-6 BMI: 29.0 Code: 41334-3 Heart Rate 1: 86 bpm Height: 5'8" SpO2: 97% Weight: 191 lbs 12/23/2018 Blood Pressure 1: 140/68 Code: 8480-6 BMI: 29.3 Code: 97841-6 Heart Rate 1: 70 bpm Height: 5'8" SpO2: 97% Weight: 193 lbs 04/03/2018 Blood Pressure 1: 128/72 Code: 8480-6 BMI: 29.8 Code: 11677-0 Heart Rate 1: 60 bpm Height: 5'8" SpO2: 96% Weight: 196 lbs 03/31/2018 Blood Pressure 1: 128/76 Code: 8480-6 BMI: 29.8 Code: 24245-8 Heart Rate 1: 56 bpm Height: 5'8" SpO2: 98% Weight: 196 lbs 11/26/2017 Blood Pressure 1: 156/76 Code: 8480-6 BMI: 29.6 Code: 13362-2 Heart Rate 1: 57 bpm Height: 5'8" SpO2: 98% Weight: 195 lbs 10/31/2017 Blood Pressure 1: 136/74 Code: 8480-6 BMI: 29.5 Code: 87755-5 Heart Rate 1: 56 bpm Height: 5'8" SpO2: 95% Waist Measure (cm): 91 cm Weight: 194 lbs 10/07/2017 Blood Pressure 1: 136/72 Code: 8480-6 BMI: 30.3 Code: 94497-2 Heart Rate 1: 58 bpm Height: 5'8" SpO2: 96% Weight: 199 lbs 09/22/2017 Blood Pressure 1: 138/78 Code: 8480-6 BMI: 30.4 Code: 91226-3 Heart Rate 1: 60 bpm Height: 5'8" SpO2: 98% Temperature: 36.6 (C) / 97.9 (F) Weight: 200 lbs 05/08/2017 Blood Pressure 1: 128/80 Code: 8480-6 BMI: 30.0 Code: 97638-2 Heart Rate 1: 75 bpm Height: 5'8" SpO2: 98% Weight: 197 lbs 03/25/2017 Blood Pressure 1: 150/80 Code: 8480-6 BMI: 30.1 Code: 75377-7 Heart Rate 1: 53 bpm Height: 5'8" SpO2: 98% Weight: 198 lbs 01/21/2017 Blood Pressure 1: 156/88 Code: 8480-6 BMI: 29.8 Code: 74369-2 Heart Rate 1: 95 bpm Height: 5'8" SpO2: 98% Temperature: 36.9 (C) / 98.4 (F) Weight: 196 lbs 12/30/2016 Blood Pressure 1: 122/74 Code: 8480-6 BMI: 29.8 Code: 04015-8 Heart Rate 1: 60 bpm Height: 5'8" SpO2: 96% Temperature: 37.1 (C) / 98.8 (F) Weight: 196 lbs 12/26/2016 Blood Pressure 1: 142/74 Code: 8480-6 BMI: 29.8 Code: 55428-9 Heart Rate 1: 58 bpm Height: 5'8" SpO2: 96% Temperature: 36.7 (C) / 98.0 (F) Weight: 196 lbs 12/02/2016 Blood Pressure 1: 128/78 Code: 8480-6 BMI: 30.3 Code: 34929-8 Heart Rate 1: 49 bpm Height: 5'8" SpO2: 98% Temperature: 36.5 (C) / 97.7 (F) Weight: 199 lbs 11/21/2016 Blood Pressure 1: 130/68 Code: 8480-6 BMI: 30.3 Code: 62984-9 Heart Rate 1: 54 bpm Height: 5'8" SpO2: 98% Weight: 199 lbs 10/25/2016 Blood Pressure 1: 150/92 Code: 8480-6 BMI: 29.8 Code: 71827-0 Heart Rate 1: 54 bpm Height: 5'8" SpO2: 97% Waist Measure (cm): 97 cm Weight: 196 lbs 10/23/2016 Blood Pressure 1: 150/92 Code: 8480-6 BMI: 29.9 Code: 52670-1 Heart Rate 1: 54 bpm Height: 5'8" SpO2: 98% Weight: 196 lbs 8 oz 07/29/2016 Blood Pressure 1: 144/72 Code: 8480-6 BMI: 30.3 Code: 84816-5 Heart Rate 1: 54 bpm Height: 5'8" SpO2: 98% Weight: 199 lbs 06/24/2016 Blood Pressure 1: 132/78 Code: 8480-6 BMI: 29.5 Code: 12162-8 Heart Rate 1: 59 bpm Height: 5'8" SpO2: 94% Weight: 194 lbs 02/21/2016 Blood Pressure 1: 138/84 Code: 8480-6 BMI: 30.3 Code: 08302-4 Heart Rate 1: 64 bpm Height: 5'8" SpO2: 95% Weight: 199 lbs 10/18/2015 Blood Pressure 1: 154/84 Code: 8480-6 Blood Pressure 1: 138/72 Code: 8480-6 BMI: 30.4 Code: 58707-6 Heart Rate 1: 68 bpm Height: 5'8" SpO2: 97% Weight: 200 lbs 05/02/2015 Blood Pressure 1: 114/64 Code: 8480-6 BMI: 29.0 Code: 29461-6 Heart Rate 1: 62 bpm Height: 5'8" [...] bleeding[ICD10: K57.00] [facility] CPT-4: 38400 12/23/2018 ([id number]) [id number] EST. PATIENT, LEVEL III Diagnosis: Low back pain[ICD10: M54.5] Diagnosis: Muscle spasm of back[ICD10: M62.830] [facility] CPT-4: 19574 03/31/2018 ([id number]) 68213 EST. PATIENT, LEVEL III Diagnosis: Actinic keratosis[ICD10: L57.0] Diagnosis: Other hypertrophic disorders of the skin[ICD10: L91.8] [facility] CPT-4: 44333 11/26/2017 ([id number]) 49214 EST. PATIENT, LEVEL IV Diagnosis: Essential (primary) hypertension[ICD10: I10] Diagnosis: Mild cognitive impairment, so stated[ICD10: G31.84] [facility] CPT-4: 67921 10/07/2017 ([id number]) 81867 EST. PATIENT, LEVEL III Diagnosis: Pneumonia due to other streptococci[ICD10: J15.4] Diagnosis: Cough[ICD10: R05] Amanda Husain MD, [facility] CPT-4: 56594 09/22/2017 [id number] EST. PATIENT, LEVEL IV Diagnosis: Left lower quadrant pain[ICD10: R10.32] Diagnosis: Other fatigue[ICD10: R53.83] Gabrielle Husain MD, [facility] CPT-4: 71039 05/08/2017 ([id number]) [id number] EST. PATIENT, LEVEL III Diagnosis: Essential (primary) hypertension[ICD10: I10] Amanda Husain MD, [facility] CPT-4: 73166 03/25/2017 ([id number]) 59338 EST. PATIENT, LEVEL III Diagnosis: Cough[ICD10: R05] Diagnosis: Allergic rhinitis due to pollen[ICD10: J30.1] Leidy Husain MD, [facility] CPT-4: 06742 01/21/2017 [id number] EST. PATIENT, LEVEL III Diagnosis: Other allergic rhinitis[ICD10: J30.89] Diagnosis: Cough[ICD10: R05] Gabrielle Husain MD, [facility] CPT-4: 63138 12/30/2016 ([id number]) 73790 EST. PATIENT, LEVEL III Diagnosis: Cough[ICD10: R05] Diagnosis: Pneumonia, unspecified organism[ICD10: J18.9] Leidy Husain MD, [facility] CPT-4: 04875 12/26/2016 ([id number]) 88708 EST. PATIENT, LEVEL III Diagnosis: Pneumonia due to other streptococci[ICD10: J15.4] Diagnosis: Cough[ICD10: R05] Amanda Husain MD, [facility] CPT-4: 26613 12/02/2016 ([id number]) 56668 EST. PATIENT, LEVEL III Diagnosis: Essential (primary) hypertension[ICD10: I10] Amanda Husain MD, [facility] CPT-4: 40940 11/21/2016 ([id number]) 74165 EST. PATIENT, LEVEL IV Diagnosis: Essential (primary) hypertension[ICD10: I10] Diagnosis: Mixed hyperlipidemia[ICD10: E78.2] Amanda Husain MD, [facility] CPT- 4: 83579 10/23/2016 [id number] EST. PATIENT, LEVEL IV Diagnosis: Other allergic rhinitis[ICD10: J30.89] Diagnosis: Cough[ICD10: R05] Gabrielle Husain MD, [facility] CPT-4: 05533 07/29/2016 ([id number]) Miscellaneous no charge Diagnosis: Pneumonia, unspecified organism[ICD10: J18.9] Gabrielle Husain MD [facility] CPT-4: 64091 06/27/2016 ([id number]) 79106 EST. PATIENT, LEVEL IV Diagnosis: Essential (primary) hypertension[ICD10: I10] Diagnosis: Pneumonia, unspecified organism[ICD10: J18.9] Diagnosis: Cough[ICD10: R05] Diagnosis: Mixed hyperlipidemia[ICD10: E78.2] Amanda Husain MD [facility] CPT- 4: 83489 06/24/2016 ([id number]) 75977 EST. PATIENT, LEVEL IV Diagnosis: Mixed hyperlipidemia[ICD10: E78.2] Diagnosis: Essential (primary) hypertension[ICD10: I10] Diagnosis: Gastro-esophageal reflux disease without esophagitis[ICD10: K21.9] Amanda Husain MD, [facility] CPT-4: 70269 02/21/2016 ([id number]) 64967 EST. 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 Call if not improved after thorough healing - apply neosporin to skin lesions. 12/31/2018 Appointment: Amanda Husain WPtel: [address] [place], [place] [phone] [place] (30 min) Complex 12/31/2018 Patient Education: Patient Medication Summary Completed 12/31/2018 Visit Plan: Diverticulitis - rx for antibiotic sent to pt's pharmacy - pt advised to avoid seeds, nuts, popcorn, or any other food which has been proven to upset the pt's stomach. 12/23/2018 Appointment: Gabrielle Corona WPtel: [phone] [facility] [place] (15 min) Moderate 12/23/2018 Patient Education: Patient Medication Summary Completed 12/23/2018 Appointment: Gabrielle Corona WPtel: [phone] [facility] (30 min) Complex 12/16/2018 Appointment: Lab [...] not improve. 03/31/2018 Appointment: Leidy Angulo WPtel: [phone] [phone] [place] (15 min) Moderate 03/31/2018 Patient Education: Patient Medication Summary Completed 03/31/2018 Visit Plan: Wound Instructions - Pt was instructed to keep the wound clean, wash with antibacterial soap, use triple antibiotic ointment, call if redness, pustular drainage, or any other acute concerns. 11/26/2017 Appointment: Amanda Husain WPtel: [phone] [phone] Surgical Procedure 11/26/2017 Patient Education: Patient Medication [...] care surrogate. 10/31/2017 Appointment: Leidy Angulo WPtel: [phone] [phone] - Annual Wellness Visit 10/31/2017 Patient Education: [...] memory loss. 10/07/2017 Appointment: Amanda Husain WPtel: [phone] [phone] (30 min) Complex 10/07/2017 Patient Education: Patient Medication Summary Completed 10/07/2017 Patient Education: Obesity Completed 10/07/2017 Patient Education: Hypertension Completed 10/07/2017 Visit Plan: Pneumonia - Pt has been diagnosed with pneumonia by physical exam. Antibiotics have been ordered. The pt is aware of the diagnosis and the need for acute treatment of this illness. 09/22/2017 Appointment: Amanda Husain WPtel: [phone] [phone] (15 min) Moderate 09/22/2017 Patient Education: Patient [...] or concerns. 05/08/2017 Appointment: Gabrielle Corona WPtel: [facility] [place][note 2]6 [facility] (30 min) Complex 05/08/2017 Patient Education: [...] daily. 03/25/2017 Appointment: Amanda Husain WPtel: [phone] [facility] [place] (15 min) Moderate 03/25/2017 Patient Education: Patient Medication Summary Completed 03/25/2017 Appointment: Leidy Angulo WPtel: [phone] [phone] [place] (15 min) Moderate 01/31/2017 Visit Plan: URI/Allergies - Pt advised to increase fluids, vitamin C. Discussed natural and expected course of this diagnosis and need to alert me if symptoms do not follow expected course, or if any worse. RX sent to patient's pharmacy. 01/21/2017 Appointment: Leidy Angulo WPtel: [phone] [phone] (15 min) Moderate 01/21/2017 Patient Education: [...] the medication. 12/30/2016 Appointment: Leidy Angulo WPtel: [phone] [phone] [place] (15 min) Moderate 12/30/2016 Appointment: Gabrielle Corona WPtel: [phone] [facility] [place] (30 min) Complex 12/30/2016 Patient Education: [...] levaquin. 12/26/2016 Appointment: Leidy Angulo WPtel: [phone] [phone] [place] (15 min) Moderate 12/26/2016 Patient Education: [...] blood pressure readings at home. 11/21/2016 Appointment: [phone] (15 min) Moderate 11/21/2016 Patient Education: Patient [...] surrogate. 10/25/2016 [phone] [facility] - Annual Wellness Visit 10/25/2016 Patient Education: [...] medications. 10/23/2016 Appointment: Amanda Husain WPtel: [phone] [phone] (15 min) Moderate 10/23/2016 Patient Education: Patient [...] concerns. 07/29/2016 Appointment: Gabrielle Corona WPtel: [phone] [facility] (15 min) Moderate 07/29/2016 Patient Education: Patient [...] to medications. 06/24/2016 Appointment: Amanda Husain WPtel: [address] [place], [place] [phone] (15 min) Moderate 06/24/2016 Patient Education: Patient [...] not improving. 02/21/2016 Appointment: Amanda Husain WPtel: [facility] [place]note 2][facility] (15 min) Moderate 02/21/2016 Patient Education: Patient [...] Care Plan: COMPLETE CBC AUTOMATED LOINC : 11528-0 Ordered 05/02/2015 Care Plan: [employer] [...] well. Come back Friday to recheck PT/INR We will call to see if you [...] is worsening or does not improve. . Medicare Exam - today we discussed [...] proven to upset the pt's stomach. . Pneumonia - Pt has been diagnosed [...] healing - apply neosporin to skin lesions. [employer] or [employer] - take three times daily x 7 [...] pustular drainage, or any other acute concerns. Follow up appointment with Dr. Cantu on [...]
--- OUTSIDE RECORDS SUMMARY | 2019-05-19 10:45 | XMS REPORT | CCD ---
Author Author Amanda Celestin Organization Amanda Husain MD, [facility] Address [address] [place] [address] Phone Care Team Providers Care Supervisor Laboratory Name Role Phone PP Unavailable CCM Unavailable Summary Purpose Interface Exchange Insurance Providers Payer name Policy type / Coverage type Covered democrat ID Effective Begin Date Effective End Date WPS Medicare Part B [id number] Unknown Trovali [id number] Unknown Family history Brother Diagnosis Age At Onset pancreatic cancer Unknown Father Diagnosis Age At Onset Heart Attack Unknown Aneursym Unknown Mother Diagnosis Age At Onset Stroke Unknown Dementia Unknown Social History Social History Element Codes Description Effective Dates Marital status Unknown Griselda 03/25/2017 Number of children Unknown 2 05/02/2015 Living arrangements Unknown House 05/02/2015 Employment Unknown Retired 05/02/[address]: 5760052 Former smoker Quit in 1966 05/02/2015 Number of years using tobacco Unknown 5 - 10 05/02/2015 Allergies, Adverse Reactions, Alerts Allergies, Adverse Reactions, Alerts data not found Past Medical History Illness Codes Condition Status Onset Date Resolved Date Left lower quadrant pain ICD-9: 789.04 ICD-10: R10.32 Active 05/08/2017 Unknown Other fatigue ICD-9: 780.79 ICD-10: R53.83 Active 05/08/2017 Unknown Essential (primary) hypertension ICD-9: 401.9 ICD-10: I10 Active 11/20/2016 Unknown Allergic rhinitis due to pollen ICD-9: 477.0 ICD-10: J30.1 Active 01/21/2017 Unknown Cough ICD-9: 786.2 ICD-10: R05 Active 12/01/2016 12/30/2016 Other allergic rhinitis ICD-9: 477.8 ICD-10: J30.89 Active 07/28/2016 Unknown Pneumonia, unspecified organism ICD-9: 486 ICD-10: J18.9 Active 06/26/2016 Unknown Pneumonia due to other streptococci ICD-9: 482.39 ICD-10: J15.4 Active 12/01/2016 Unknown Encounter for general adult medical examination [...] Problems Condition Codes Effective Dates Condition Status Left lower quadrant pain ICD-9: 789.04 ICD-10: R10.32 05/08/2017 Active Other fatigue ICD-9: 780.79 ICD-10: R53.83 05/08/2017 Active Essential (primary) hypertension ICD-9: 401.9 ICD-10: I10 11/20/2016 Active Allergic rhinitis due to pollen ICD-9: 477.0 ICD-10: J30.1 01/21/2017 Active Cough ICD-9: 786.2 ICD-10: R05 12/01/2016 Active Other allergic rhinitis ICD-9: 477.8 ICD-10: J30.89 07/28/2016 Active Pneumonia, unspecified organism ICD-9: 486 ICD-10: J18.9 06/26/2016 Active Pneumonia due to other streptococci ICD-9: 482.39 ICD-10: J15.4 12/01/2016 Active Encounter for general adult medical examination [...] Start Date Stop Date Status Fill Instructions metronidazole 500 mg tablet RxNorm: 051271 1 Tablet(s) PO TID 05/08/2017 05/14/2017 Active ramipril 10 mg capsule RxNorm: 563242 1 Capsule(s) PO daily 03/25/2017 03/19/2018 Active Kenalog 40 mg/mL suspension for injection RxNorm: 4474499 Milliliter(s) Inj 01/21/2017 01/21/2017 Inactive ceftriaxone 500 mg solution for injection RxNorm: 3103478 Inj 12/30/2016 12/30/2016 Inactive Phenergan with Codeine Syrup RxNorm: 5-10 Milliliter(s) PO Q6 PRN 12/26/2016 No Stop Date Active Levaquin 500 mg tablet RxNorm: 487195 1 Tablet(s) PO daily 12/26/2016 01/01/2017 Inactive Tessalon Perles 100 mg capsule RxNorm: 480005 1 Capsule(s) PO TID as needed 12/26/2016 01/04/2017 Inactive prednisone 20 mg tablet RxNorm: 382628 1 Tablet(s) PO BID 12/26/2016 12/30/2016 Inactive omeprazole 20 mg capsule,delayed release RxNorm: 189605 TAKE ONE CAPSULE BY MOUTH ONCE DAILY 12/16/2016 06/13/2017 Active cefdinir 300 mg capsule RxNorm: 433664 1 Capsule(s) PO BID 12/02/2016 12/08/2016 Inactive azithromycin 250 mg tablet RxNorm: 125884 Tablet(s) 2 tabs on day #1, then one tab PO daily x 4 more days 12/02/2016 12/25/2016 Inactive metoprolol tartrate 25 mg tablet RxNorm: 084998 1 Tablet(s) PO BID 10/23/2016 10/17/2017 Active metoprolol tartrate 25 mg tablet RxNorm: 709256 1 Tablet(s) PO BID 10/23/2016 10/22/2016 Inactive ceftriaxone 500 mg solution for injection RxNorm: 1170189 Inj 06/24/2016 06/24/2016 Inactive cefdinir 300 mg capsule RxNorm: 791062 1 Capsule(s) PO BID 06/24/2016 06/30/2016 Inactive omeprazole 20 mg capsule,delayed release RxNorm: 018809 TAKE ONE CAPSULE BY MOUTH DAILY 06/07/2016 12/03/2016 Inactive omeprazole 20 mg capsule,delayed release RxNorm: 027169 TAKE ONE CAPSULE BY MOUTH DAILY 01/29/2016 05/27/2016 Inactive metoprolol tartrate 50 mg tablet RxNorm: 115873 Tablet(s) TAKE ONE TABLET BY MOUTH DAILY 10/11/2015 10/10/2015 Inactive metoprolol tartrate 50 mg tablet RxNorm: 798713 TAKE ONE TABLET BY MOUTH DAILY 10/11/2015 10/22/2016 Inactive omeprazole 20 mg capsule,delayed release RxNorm: 298027 TAKE ONE CAPSULE BY MOUTH DAILY 08/28/2015 01/24/2016 Inactive metoprolol tartrate 50 mg tablet RxNorm: 488792 TAKE ONE TABLET BY MOUTH DAILY 08/11/2015 10/09/2015 Inactive metoprolol tartrate 50 mg tablet RxNorm: 208049 1 Tablet(s) PO daily 06/14/2015 08/10/2015 Inactive omeprazole 20 mg capsule,delayed release RxNorm: 946458 1 Capsule(s) PO daily 05/29/2015 08/26/2015 Inactive omeprazole 20 mg capsule,delayed release RxNorm: 344056 1 Capsule(s) PO daily 05/29/2015 05/28/2015 Inactive metronidazole 500 mg tablet RxNorm: 976774 1 Tablet(s) PO TID 05/02/2015 05/08/2015 Inactive Fish Oil 120 mg-180 mg capsule RxNorm: 818178 1 Capsule(s) PO BID No Start Date Active finasteride 5 mg tablet RxNorm: 910756 1 Tablet(s) PO daily No Start Date Active warfarin 5 mg tablet RxNorm: 585629 1 Tablet(s) PO daily No Start Date Active Aspirin Childrens 81 mg chewable tablet RxNorm: 886075 1 Tablet(s) PO daily No Start Date Active amiodarone 200 mg tablet RxNorm: 803031 1 Tablet(s) PO daily No Start Date Active vitamin E (dl, acetate) 1,000 unit capsule RxNorm: 556114 1 Capsule(s) PO daily No Start Date Active Trilipix 135 mg capsule,delayed release RxNorm: 679957 1 Capsule(s) PO daily No Start Date Active Centrum Silver tablet RxNorm: 1 Tablet(s) PO daily No Start Date Active atorvastatin 80 mg tablet RxNorm: 705538 1 Tablet(s) PO daily No Start Date Active metoprolol tartrate 50 mg tablet RxNorm: 999764 1 Tablet(s) PO daily No Start Date 06/13/2015 Inactive Zetia 10 mg tablet RxNorm: 896668 1 Tablet(s) PO daily No Start Date 10/17/2015 Inactive ramipril 5 mg capsule RxNorm: 607941 1 Capsule(s) PO daily No Start Date 03/24/2017 Inactive Tessalon Perles 100 mg capsule RxNorm: 785394 1 Capsule(s) PO TID as needed No Start Date 12/25/2016 Inactive omeprazole 20 mg capsule,delayed release RxNorm: 991160 1 Capsule(s) PO daily No Start Date 05/28/2015 Inactive Medication Administered Medication Codes Instructions Start Date Status Kenalog 40 mg/mL suspension for injection RxNorm: 1075323 Milliliter 01/21/2017 No longer Active ceftriaxone 500 mg solution for injection RxNorm: 3517056 12/30/2016 No longer Active ceftriaxone 500 mg solution for injection RxNorm: 6604547 06/24/2016 No longer Active Immunizations Vaccine Codes Date Status Influenza CVX: 141 09/11/2015 completed Pneumococcal (Adult) CVX: 33 05/02/2014 completed Assessments Condition Codes Effective Dates Left lower quadrant pain ICD-10: R10.32 ICD-9: 789.04 05/08/2017 Other fatigue ICD-10: R53.83 ICD-9: 780.79 05/08/2017 Essential (primary) hypertension ICD-10: I10 ICD-9: 401.9 03/25/2017 Cough ICD-10: R05 ICD-9: 786.2 01/21/2017 Allergic rhinitis due to pollen ICD-10: J30.1 ICD-9: 477.0 01/21/2017 Other allergic rhinitis ICD-10: J30.89 ICD-9: 477.8 12/30/2016 Pneumonia, unspecified organism ICD-10: J18.9 ICD-9: 486 12/26/2016 Pneumonia due to other streptococci ICD-10: J15.4 ICD-9: 482.39 12/02/2016 Encounter for general adult medical examination without abnormal findings ICD-10: Z00.00 ICD-9: V70.9 10/25/2016 Mixed hyperlipidemia ICD-10: E78.2 ICD-9: 272.2 10/23/2016 Gastro-esophageal reflux disease without esophagitis ICD-10: K21.9 ICD-9: 530.81 02/21/2016 Chronic lymphocytic 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 ICD-10: C91.10 ICD-9: 204.10 10/18/2015 Diverticulitis ICD-9: 562.11 05/02/2015 Reason For Visit Reason For Visit Effective Dates Notes abdominal pain 05/08/2017 ~generic 03/25/2017 Diagnosed with [...] Observation Code Item Item Code Result Date Comp Metabolic Bsg616 NA 139 mEq/L 05/08/2017 Comp Metabolic Lgl670 K 4.1 mEq/L 05/08/2017 Comp Metabolic Btf780 CL 103 mEq/L 05/08/2017 Comp Metabolic Dli082 CO2 28.0 mEq/L 05/08/2017 Comp Metabolic Ugw381 ANION GAP 12 05/08/2017 Comp Metabolic Ehs111 GLUCOSE 75 mg/dL 05/08/2017 Comp Metabolic Pmk949 Creat 1.3 mg/dL 05/08/2017 Comp Metabolic Wsp531 eGFR 55 ml/min/1.73m2 05/08/2017 Comp Metabolic Jso964 BUN 20 mg/dL 05/08/2017 Comp Metabolic Tcc375 B/C Ratio 14.9 Ratio 05/08/2017 Comp Metabolic Ohw703 CALCIUM 8.8 mg/dL 05/08/2017 Comp Metabolic Jlg020 ALK PHOS 51 U/L 05/08/2017 Comp Metabolic Uko509 AST(SGOT) 30 U/L 05/08/2017 Comp Metabolic Brn364 ALT(SGPT) 31 U/L 05/08/2017 Comp Metabolic Bee294 BILI T 0.9 mg/dL 05/08/2017 Comp Metabolic Fki672 ALBUMIN 4.0 g/dL 05/08/2017 Comp Metabolic Czs717 TPRO 6.5 g/dL 05/08/2017 Comp Metabolic Iwd236 GLOB 2.6 g/dL 05/08/2017 Comp Metabolic Wvw261 A/G Ratio 1.5 Ratio 05/08/2017 Comp Metabolic Huq379 Osmo 279 mOsmo 05/08/2017 Cbc With Differential [...] 31.5 pg 05/08/2017 Cbc With Differential Ord2 [place]% 13.5 % 05/08/2017 Cbc With Differential Ord2 [...] 1.29 K/ul 05/08/2017 Cbc With Differential Ord2 [place] ABS# 1.1 K/ul 05/08/2017 Cbc With Differential Ord2 Eos ABS# 0.2 K/ul 05/08/2017 Cbc With Differential Ord2 Baso ABS# 0.0 K/ul 05/08/2017 Pt Lga1541 PT 22.7 seconds 11/22/2016 Pt Qmc8184 INR 2.1 11/22/2016 Pt Rra9190 Low Intensity - 1.5-2.0 11/22/2016 Pt Xtl2489 Mod intensity - 2.0-3.0 11/22/2016 Pt Guc7038 Hi intensity - 3.0-4.0 11/22/2016 Pt Wvr8718 PT 24.4 seconds 10/25/2016 Pt Mlz0839 INR 2.3 10/25/2016 Pt Wls1389 Low Intensity - 1.5-2.0 10/25/2016 Pt Ykw7461 Mod intensity - 2.0-3.0 10/25/2016 Pt Nbk2144 Hi intensity - 3.0-4.0 10/25/2016 Pt Bgo5178 PT 23.5 seconds 09/04/2016 Pt Zej3002 INR 2.2 09/04/2016 Pt Ink3638 Low Intensity - 1.5-2.0 09/04/2016 Pt Ash7055 Mod intensity - 2.0-3.0 09/04/2016 Pt Fxe4330 Hi intensity - 3.0-4.0 09/04/2016 Pt Dgx9173 PT 26.1 seconds 07/09/2016 Pt Hrp9458 INR 2.6 07/09/2016 Pt Ths2780 Low Intensity - 1.5-2.0 07/09/2016 Pt Duy3247 Mod intensity - 2.0-3.0 07/09/2016 Pt Bsu1180 Hi intensity - 3.0-4.0 07/09/2016 Pt Avk8188 PT 19.4 seconds 06/24/2016 Pt Dxp8508 INR 1.7 06/24/2016 Pt Eqv0650 Low Intensity - 1.5-2.0 06/24/2016 Pt Sxo3759 Mod intensity - 2.0-3.0 06/24/2016 Pt Vuk0102 Hi intensity - 3.0-4.0 06/24/2016 Pt Hhb7694 PT 28.9 seconds 04/26/2016 Pt Lfz3434 INR 2.9 04/26/2016 Pt Nyu8805 Low Intensity - 1.5-2.0 04/26/2016 Pt Kjb8478 Mod intensity - 2.0-3.0 04/26/2016 Pt Frq6090 Hi intensity - 3.0-4.0 04/26/2016 Tsh Ord6 hTSH II 1.21 uIU/mL 02/29/2016 Pt Asp0467 PT 21.8 seconds 02/29/2016 Pt Qeo5083 INR 2.0 02/29/2016 Pt Wyo5416 Low Intensity - 1.5-2.0 02/29/2016 Pt Onf2245 Mod intensity - 2.0-3.0 02/29/2016 Pt Gld9859 Hi intensity - 3.0-4.0 02/29/2016 Lipid Ord30 [...] Ord2 RDW 16.2 % 06/30/2015 Comp Metabolic Itj522 NA 138 mEq/L 06/30/2015 Comp Metabolic Pfo226 K 4.8 mEq/L 06/30/2015 Comp Metabolic Byl337 CL 107 mEq/L 06/30/2015 Comp Metabolic Jkx297 CO2 27.0 mEq/L 06/30/2015 Comp Metabolic Cyq127 ANION GAP 9 06/30/2015 Comp Metabolic Tbd575 GLUCOSE 98 mg/dL 06/30/2015 Comp Metabolic Gib047 Creat 1.8 mg/dL 06/30/2015 Comp Metabolic Xcn338 eGFR 40 ml/min/1.73m2 06/30/2015 Comp Metabolic Ter378 BUN 20 mg/dL 06/30/2015 Comp Metabolic Bir742 B/C Ratio 11.1 Ratio 06/30/2015 Comp Metabolic Jxj416 CALCIUM 9.1 mg/dL 06/30/2015 Comp Metabolic Sxm197 ALK PHOS 39 U/L 06/30/2015 Comp Metabolic Zan238 AST(SGOT) 21 U/L 06/30/2015 Comp Metabolic Hhg963 ALT(SGPT) 23 U/L 06/30/2015 Comp Metabolic Tkc619 BILI T 0.5 mg/dL 06/30/2015 Comp Metabolic Izt539 ALBUMIN 4.0 g/dL 06/30/2015 Comp Metabolic Btp566 TPRO 6.6 g/dL 06/30/2015 Comp Metabolic Tfp173 GLOB 2.6 g/dL 06/30/2015 Comp Metabolic Rzl643 A/G Ratio 1.5 Ratio 06/30/2015 Comp Metabolic Xlp355 Osmo 278 mOsmo 06/30/2015 Pt Wak7519 PT 26.1 seconds 06/30/2015 Pt Ctt9889 INR 2.5 06/30/2015 Pt Llp8152 Low Intensity - 1.5-2.0 06/30/2015 Pt Cup3482 Mod intensity - 2.0-3.0 06/30/2015 Pt Vkz7686 Hi intensity - 3.0-4.0 06/30/2015 Review of Systems System Result Effective Dates Constitutional recent illness 05/08/2017 Constitutional chills 05/08/2017 [...] nourished 05/02/2015 None Procedures Procedure Codes Date THER/PROPH/DIAG INJ SC/IM CPT-4: 51699Bfywqau 01/21/2017 TRIAMCINOLONE ACET INJ NOS CPT-4: S9443Peldtvz 01/21/2017 THER/PROPH/DIAG INJ SC/IM CPT-4: 32318Ltjiugk 12/30/2016 ROCEPHIN, PER 250 MG CPT-4: P8705Plvvkik 12/30/2016 PPPS, SUBSEQ VISIT CPT-4: Z4489Sgrlknf 10/25/2016 ROCEPHIN, PER 250 MG CPT-4: I0715Exhuqce 06/24/2016 THER/PROPH/DIAG INJ SC/IM CPT-4: 11769Snfbwlj 06/24/2016 Vital Signs Date Vital 05/08/2017 Blood Pressure 1: 128/80 Code: 8480-6 BMI: 30.0 Code: 89345-9 Heart Rate 1: 75 bpm Height: 5'8" SpO2: 98% Weight: 197 lbs 03/25/2017 Blood Pressure 1: 150/80 Code: 8480-6 BMI: 30.1 Code: 32096-2 Heart Rate 1: 53 bpm Height: 5'8" SpO2: 98% Weight: 198 lbs 01/21/2017 Blood Pressure 1: 156/88 Code: 8480-6 BMI: 29.8 Code: 08630-7 Heart Rate 1: 95 bpm Height: 5'8" SpO2: 98% Temperature: 36.9 (C) / 98.4 (F) Weight: 196 lbs 12/30/2016 Blood Pressure 1: 122/74 Code: 8480-6 BMI: 29.8 Code: 26246-7 Heart Rate 1: 60 bpm Height: 5'8" SpO2: 96% Temperature: 37.1 (C) / 98.8 (F) Weight: 196 lbs 12/26/2016 Blood Pressure 1: 142/74 Code: 8480-6 BMI: 29.8 Code: 87180-8 Heart Rate 1: 58 bpm Height: 5'8" SpO2: 96% Temperature: 36.7 (C) / 98.0 (F) Weight: 196 lbs 12/02/2016 Blood Pressure 1: 128/78 Code: 8480-6 BMI: 30.3 Code: 31505-4 Heart Rate 1: 49 bpm Height: 5'8" SpO2: 98% Temperature: 36.5 (C) / 97.7 (F) Weight: 199 lbs 11/21/2016 Blood Pressure 1: 130/68 Code: 8480-6 BMI: 30.3 Code: 85865-1 Heart Rate 1: 54 bpm Height: 5'8" SpO2: 98% Weight: 199 lbs 10/25/2016 Blood Pressure 1: 150/92 Code: 8480-6 BMI: 29.8 Code: 28427-3 Heart Rate 1: 54 bpm Height: 5'8" SpO2: 97% Waist Measure (cm): 97 cm Weight: 196 lbs 10/23/2016 Blood Pressure 1: 150/92 Code: 8480-6 BMI: 29.9 Code: 02384-4 Heart Rate 1: 54 bpm Height: 5'8" SpO2: 98% Weight: 196 lbs 8 oz 07/29/2016 Blood Pressure 1: 144/72 Code: 8480-6 BMI: 30.3 Code: 74909-2 Heart Rate 1: 54 bpm Height: 5'8" SpO2: 98% Weight: 199 lbs 06/24/2016 Blood Pressure 1: 132/78 Code: 8480-6 BMI: 29.5 Code: 04312-9 Heart Rate 1: 59 bpm Height: 5'8" SpO2: 94% Weight: 194 lbs 02/21/2016 Blood Pressure 1: 138/84 Code: 8480-6 BMI: 30.3 Code: 97092-4 Heart Rate 1: 64 bpm Height: 5'8" SpO2: 95% Weight: 199 lbs 10/18/2015 Blood Pressure 1: 154/84 Code: 8480-6 Blood Pressure 1: 138/72 Code: 8480-6 BMI: 30.4 Code: 18634-7 Heart Rate 1: 68 bpm Height: 5'8" SpO2: 97% Weight: 200 lbs 05/02/2015 Blood Pressure 1: 114/64 Code: 8480-6 BMI: 29.0 Code: 36681-7 Heart Rate 1: 62 bpm Height: 5'8" Respiratory Rate: 20 bpm Weight: 191 lbs Functional Status No Functional Status data History of Present Illness Symptom Name Status Result Effective Date Notes abdominal pain Location in the LLQ 05/08/2017 [...] Annual Medicare Wellness Exam Handling Stress usually [place] effectively 10/25/2016 None Annual Medicare Wellness Exam [...] data Encounters Encounter Performer Location Codes Date 98272 EST. PATIENT, LEVEL IV Diagnosis: Left lower quadrant pain[ICD10: R10.32] Diagnosis: Other fatigue[ICD10: R53.83] [facility] CPT-4: 11583 05/08/2017 ([id number]) 63588 EST. PATIENT, LEVEL III Diagnosis: Essential (primary) hypertension[ICD10: I10] [facility] CPT-4: 48745 03/25/2017 ([id number]) 87565 EST. PATIENT, LEVEL III Diagnosis: Cough[ICD10: R05] Diagnosis: Allergic rhinitis due to pollen[ICD10: J30.1] Leidy Husain MD [facility] CPT-4: 14793 01/21/2017 63546 EST. PATIENT, LEVEL III Diagnosis: Other allergic rhinitis[ICD10: J30.89] Diagnosis: Cough[ICD10: R05] Gabrielle Husain MD [facility] CPT-4: 64292 12/30/2016 ([id number]) 09512 EST. PATIENT, LEVEL III Diagnosis: Cough[ICD10: R05] Diagnosis: Pneumonia, unspecified organism[ICD10: J18.9] Leidy Husain MD [facility] CPT-4: 73616 12/26/2016 ([id number]) 30741 EST. PATIENT, LEVEL III Diagnosis: Pneumonia due to other streptococci[ICD10: J15.4] Diagnosis: Cough[ICD10: R05] Amanda Husain MD [facility] CPT-4: 73775 12/02/2016 ([id number]) 28550 EST. PATIENT, LEVEL III Diagnosis: Essential (primary) hypertension[ICD10: I10] Amanda Husain MD [facility] CPT-4: 92770 11/21/2016 ([id number]) 90733 EST. PATIENT, LEVEL IV Diagnosis: Essential (primary) hypertension[ICD10: I10] Diagnosis: Mixed hyperlipidemia[ICD10: E78.2] Amanda Husain MD [facility] CPT- 4: 26243 10/23/2016 78598 EST. PATIENT, LEVEL IV Diagnosis: Other allergic rhinitis[ICD10: J30.89] Diagnosis: Cough[ICD10: R05] Gabrielle Husain MD, [facility] CPT-4: 44086 07/29/2016 ([id number]) Miscellaneous no charge Diagnosis: Pneumonia, unspecified organism[ICD10: J18.9] Gabrielle Husain MD [facility] CPT-4: 31476 06/27/2016 ([id number]) 15053 EST. PATIENT, LEVEL IV Diagnosis: Essential (primary) hypertension[ICD10: I10] Diagnosis: Pneumonia, unspecified organism[ICD10: J18.9] Diagnosis: Cough[ICD10: R05] Diagnosis: Mixed hyperlipidemia[ICD10: E78.2] Amanda Husain MD, [facility] CPT- 4: 88246 06/24/2016 ([id number]) 64614 EST. PATIENT, LEVEL IV Diagnosis: Mixed hyperlipidemia[ICD10: E78.2] Diagnosis: Essential (primary) hypertension[ICD10: I10] Diagnosis: Gastro-esophageal reflux disease without esophagitis[ICD10: K21.9] Amanda Husain MD, [facility] CPT-4: 20148 02/21/2016 ([id number] 34236 EST. PATIENT, LEVEL IV Diagnosis: Essential (primary) hypertension[ICD10: I10] Diagnosis: Mixed hyperlipidemia[ICD10: E78.2] Diagnosis: Chronic lymphocytic 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[ICD10: C91.10] Amanda Husain MD, [facility] CPT-4: 52393 10/18/2015 ([id number]) OFFICE VISIT, NEW - LEVEL 3 Diagnosis: Diverticulitis[ICD9: 562.11] Amanda Husain MD, [facility] CPT-4: 47147 05/02/2015 Plan of Care Planned Activity Notes Codes Status Date Visit Plan: Diverticulitis - rx for antibiotic sent to pt's pharmacy - pt advised to avoid seeds, nuts, popcorn, or any other food which has been proven to upset the pt's stomach.Fatigue, history of CLL - will check labs, pt has a follow up appointment with his oncologist on 05/27. Pt is to notify clinic if symptoms do not improve, if they worsen, or with any questions or concerns. 05/08/2017 Patient Education: Patient Medication Summary Completed [...] the office next week for practitioner to review.The pt is to call for acute concerns.Increase the ramipril to 10mg daily. 03/25/2017 Appointment: Amanda Husain WPtel: [phone] (15 min) Moderate 03/25/2017 Patient Education: Patient Medication Summary Completed 03/25/2017 Appointment: Leidy Angulo WPtel: [phone] (15 min) Moderate 01/31/2017 Visit Plan: URI/Allergies - Pt advised to increase fluids, vitamin C. Discussed natural and expected course of this diagnosis and need to alert me if symptoms do not follow expected course, or if any worse. RX sent to patient's pharmacy. 01/21/2017 Appointment: Leidy Angulo WPtel: [phone] (15 min) Moderate 01/21/2017 Patient Education: Patient Medication Summary Completed 01/21/2017 Visit Plan: URI - Pt advised to increase fluids, vitamin C. Discussed natural and expected course of this diagnosis and need to alert me if symptoms do not follow expected course, or if any worse. RX sent to patient's pharmacy.Allergies - chronic - recommended pt to use allergy medication as prescribed. Pt has been counseled as to the appropriate use of the medication. Pt to call if allergy symptoms are not controlled with the medication. 12/30/2016 Appointment: Leidy Angulo WPtel: [phone] [place] (15 min) Moderate 12/30/2016 Appointment: Gabrielle Corona [facility]Ptel[facility] [place] (30 min) Complex 12/30/2016 Patient Education: Patient Medication Summary Completed 12/30/2016 Visit Plan: Pneumonia - Pt has been diagnosed with pneumonia by physical exam. Antibiotics ordered, pt advised on starting a probiotic, and to have his inr checked on Friday. The pt is aware of the diagnosis and the need for acute treatment of this illness.Discussed with Dr Husain-hold amiodarone while on the levaquin. 12/26/2016 Appointment: Leidy Angulo WPtel: [phone] [phone] (15 min) Moderate 12/26/2016 Patient Education: [...] diet. Pt has been encouraged to exercise daily.The pt has been advised to call the office if there are any acute concerns about change in blood pressure readings at home. 11/21/2016 [phone] (15 min) Moderate 11/21/2016 Patient Education: Patient [...] risk and to maintain independece in the home.Today we discussed the need for the patient to create paperwork for Advanced directives as well as for the patient to provide this office with a copy of her DOPA paperwork for health care surrogate. 10/25/2016 Appointment: Le[facility] Angulo [facility]el[facility] [phone] [phone] [facility] - Annual Wellness Visit 10/25/2016 Patient Education: Patient Medication Summary Completed 10/25/2016 Visit Plan: Hypertension - well controlled - continue with current medications, continue with no added salt diet. Pt has been encouraged to exercise daily.The pt has been advised to call the office if there are any acute concerns about change in blood pressure readings at home.Hyperlipidemia - pt has been counseled about appropriate [...] medications. 10/23/2016 [facility]ment: [phone] (15 min) Moderate 10/23/2016 Patient Education: Patient Medication Summary Completed 10/23/2016 Patient Education: Hypertension Completed 10/23/2016 Visit Plan: Allergies - chronic - recommended pt to use allergy medication as prescribed. Pt has been counseled as to the appropriate use of the medication. Pt to call if allergy symptoms are not controlled with the medication.If using nasal spray, instructions as follows: Nasal spray- use twice daily, one spray per nostril twice daily, after 30 minutes, rinse out nose with saline spray.. Use opposite hand per nostril to spray in the nasal steroid allergy spray.Ongoing dry, nonproductive cough - will stop JEFF inhibitor - pt is to monitor blood pressures and HR and notify clinic with any concerns. 07/29/2016 Appointment: [facility]ri[facility] Corona [facility] [phone] [facility] (15 min) Moderate 07/29/2016 Patient Education: Patient Medication Summary Completed 07/29/2016 Patient Education: Obesity Completed 07/29/2016 Appointment: Nurse Visit 06/27/2016 Patient Education: Patient Medication Summary Completed 06/27/2016 Visit Plan: Hypertension - well controlled - continue with current medications, continue with no added salt diet. Pt has been encouraged to exercise daily.The pt has been advised to call the office if there are any acute concerns about change in blood pressure readings at home.Pneumonia - Pt has been diagnosed with pneumonia by physical exam. A chest xray has been ordered as have antibiotics. The pt is aware of the diagnosis and the need for acute treatment of this illness.Rx for antibiotic sent to pharmacyHyperlipidemia - pt has been counseled about appropriate [...] diet. Pt has been encouraged to exercise daily.The pt has been advised to call the office if there are any acute concerns about change in blood pressure readings at home.Pneumonia - Pt has been diagnosed with pneumonia by physical exam. A chest xray has been ordered as have antibiotics. The pt is aware of the diagnosis and the need for acute treatment of this illness.Rx for antibiotic sent to pharmacyHyperlipidemia - pt has been counseled about appropriate [...] to medications. 06/24/2016 Appointment: Amanda Husain WPtel: [address] [place], [place] [id number] (15 min) Moderate 06/24/2016 Patient Education: Patient Medication Summary Completed 06/24/2016 Visit Plan: Hypertension - well controlled - continue with current medications, continue with no added salt diet. Pt has been encouraged to exercise daily.The pt has been advised to call the office if there are any acute concerns about change in blood pressure readings at home.Hyperlipidemia - pt has been counseled about appropriate [...] and to assure normal liver response to medications.Esophageal Reflux - the patient has been counseled against excessive intake of caffeine, spicy foods, peppermint, and cinnamon - all of which can exacerbate esophageal reflux.The patient is to take medications as prescribed and call the office if the symptoms are not improving. 02/21/2016 Appointment: Amanda Husain [facility]el[facility] (15 min) Moderate 02/21/2016 Patient Education: Patient Medication Summary Completed 02/21/2016 Patient Education: Obesity Completed 02/21/2016 Patient Education: Hypertension Completed 02/21/2016 Visit Plan: Hypertension - well controlled - continue with current medications, continue with no added salt diet. Pt has been encouraged to exercise daily.The pt has been advised to call the office if there are any acute concerns about change in blood pressure readings at home.Hyperlipidemia - pt has been counseled about appropriate [...] and to assure normal liver response to medications.CLL - pt receiving treatment per oncology - [...] worsens pt is to go to the ER.Check labs today. Will check cardiac enzymes as well. Come back Friday to recheck PT/INR 05/02/2015 Appointment: (S) New Patient 05/02/2015 Patient Education: Patient Medication Summary Completed 05/02/2015 Care Plan: COMPLETE CBC AUTOMATED LOINC : 67299-9 Ordered 05/02/2015 Care Plan: ASSAY OF TROPONIN [...] any worse. RX sent to patient's pharmacy. Finish levaquin and prednisone - let me [...] symptoms are not controlled with the medication. [employer] or Leondra music - take three times daily x 7 [...] to assure normal liver response to medications. Follow up appointment with Dr. Cantu on [...] worsen, or with any questions or concerns. HOLD AMIODARONE X 7 DAYS LEVAQUIN [...] Husain-hold amiodarone while on the levaquin. . Hypertension - well controlled - continue [...]
--- OUTSIDE RECORDS SUMMARY | 2019-05-19 10:47 | XMS REPORT | CCD ---
Author Author Amanda Celestin Organization Amanda Husain MD, [facility] Address [address] [place] [address] Phone Care Team Providers Care Clammer Name Role Phone PP Unavailable CCM Unavailable Summary Purpose Interface Exchange Insurance Providers Payer name Policy type / Coverage type Covered republican ID Effective Begin Date Effective End Date WPS Medicare Part B [id number] Unknown [id number] Unknown Family history Brother Diagnosis Age At Onset pancreatic cancer Unknown Father Diagnosis Age At Onset Heart Attack Unknown Aneursym Unknown Mother Diagnosis Age At Onset Stroke Unknown Dementia Unknown Social History Social History Element Codes Description Effective Dates Marital status Unknown Griselda 03/25/2017 Number of children Unknown 2 05/02/2015 Living arrangements Unknown House 05/02/2015 Employment Unknown Retired 05/02/[address]: 0239117 Former smoker Quit in 1966 05/02/2015 Number [...] Fill Instructions metronidazole 500 mg tablet RxNorm: 352839 1 Tablet(s) PO TID 05/08/2017 05/14/2017 Active ramipril 10 mg capsule RxNorm: 010358 1 Capsule(s) PO daily 03/25/2017 03/19/2018 Active Kenalog 40 mg/mL suspension for injection RxNorm: 1646606 Milliliter(s) Inj 01/21/2017 01/21/2017 Inactive ceftriaxone 500 mg solution for injection RxNorm: 6925924 Inj 12/30/2016 12/30/2016 Inactive Phenergan with Codeine Syrup RxNorm: 5-10 Milliliter(s) PO Q6 PRN 12/26/2016 No Stop Date Active Levaquin 500 mg tablet RxNorm: 166952 1 Tablet(s) PO daily 12/26/2016 01/01/2017 Inactive Tessalon Perles 100 mg capsule RxNorm: 071077 1 Capsule(s) PO TID as needed 12/26/2016 01/04/2017 Inactive prednisone 20 mg tablet RxNorm: 848880 1 Tablet(s) PO BID 12/26/2016 12/30/2016 Inactive omeprazole 20 mg capsule,delayed release RxNorm: 702071 TAKE ONE CAPSULE BY MOUTH ONCE DAILY 12/16/2016 06/13/2017 Active cefdinir 300 mg capsule RxNorm: 247233 1 Capsule(s) PO BID 12/02/2016 12/08/2016 Inactive azithromycin 250 mg tablet RxNorm: 224999 Tablet(s) 2 tabs on day #1, then one tab PO daily x 4 more days 12/02/2016 12/25/2016 Inactive metoprolol tartrate 25 mg tablet RxNorm: 354910 1 Tablet(s) PO BID 10/23/2016 10/17/2017 Active metoprolol tartrate 25 mg tablet RxNorm: 815447 1 Tablet(s) PO BID 10/23/2016 10/22/2016 Inactive ceftriaxone 500 mg solution for injection RxNorm: 4138518 Inj 06/24/2016 06/24/2016 Inactive cefdinir 300 mg capsule RxNorm: 582075 1 Capsule(s) PO BID 06/24/2016 06/30/2016 Inactive omeprazole 20 mg capsule,delayed release RxNorm: 524591 TAKE ONE CAPSULE BY MOUTH DAILY 06/07/2016 12/03/2016 Inactive omeprazole 20 mg capsule,delayed release RxNorm: 498566 TAKE ONE CAPSULE BY MOUTH DAILY 01/29/2016 05/27/2016 Inactive metoprolol tartrate 50 mg tablet RxNorm: 948422 Tablet(s) TAKE ONE TABLET BY MOUTH DAILY 10/11/2015 10/10/2015 Inactive metoprolol tartrate 50 mg tablet RxNorm: 614446 TAKE ONE TABLET BY MOUTH DAILY 10/11/2015 10/22/2016 Inactive omeprazole 20 mg capsule,delayed release RxNorm: 124877 TAKE ONE CAPSULE BY MOUTH DAILY 08/28/2015 01/24/2016 Inactive metoprolol tartrate 50 mg tablet RxNorm: 842920 TAKE ONE TABLET BY MOUTH DAILY 08/11/2015 10/09/2015 Inactive metoprolol tartrate 50 mg tablet RxNorm: 881255 1 Tablet(s) PO daily 06/14/2015 08/10/2015 Inactive omeprazole 20 mg capsule,delayed release RxNorm: 902628 1 Capsule(s) PO daily 05/29/2015 08/26/2015 Inactive omeprazole 20 mg capsule,delayed release RxNorm: 626533 1 Capsule(s) PO daily 05/29/2015 05/28/2015 Inactive metronidazole 500 mg tablet RxNorm: 691358 1 Tablet(s) PO TID 05/02/2015 05/08/2015 Inactive Fish Oil 120 mg-180 mg capsule RxNorm: 896295 1 Capsule(s) PO BID No Start Date Active finasteride 5 mg tablet RxNorm: 767438 1 Tablet(s) PO daily No Start Date Active warfarin 5 mg tablet RxNorm: 561248 1 Tablet(s) PO daily No Start Date Active Aspirin Childrens 81 mg chewable tablet RxNorm: 931072 1 Tablet(s) PO daily No Start Date Active amiodarone 200 mg tablet RxNorm: 165174 1 Tablet(s) PO daily No Start Date Active vitamin E (dl, acetate) 1,000 unit capsule RxNorm: 497980 1 Capsule(s) PO daily No Start Date Active Trilipix 135 mg capsule,delayed release RxNorm: 705823 1 Capsule(s) PO daily No Start Date Active Centrum Silver tablet RxNorm: 1 Tablet(s) PO daily No Start Date Active atorvastatin 80 mg tablet RxNorm: 248101 1 Tablet(s) PO daily No Start Date Active metoprolol tartrate 50 mg tablet RxNorm: 615699 1 Tablet(s) PO daily No Start Date 06/13/2015 Inactive Zetia 10 mg tablet RxNorm: 212049 1 Tablet(s) PO daily No Start Date 10/17/2015 Inactive ramipril 5 mg capsule RxNorm: 111056 1 Capsule(s) PO daily No Start Date 03/24/2017 Inactive Tessalon Perles 100 mg capsule RxNorm: 885695 1 Capsule(s) PO TID as needed No Start Date 12/25/2016 Inactive omeprazole 20 mg capsule,delayed release RxNorm: 981325 1 Capsule(s) PO daily No Start Date 05/28/2015 Inactive Medication Administered Medication Codes Instructions Start Date Status Kenalog 40 mg/mL suspension for injection RxNorm: 9679638 Milliliter 01/21/2017 No longer Active ceftriaxone 500 mg solution for injection RxNorm: 8571184 12/30/2016 No longer Active ceftriaxone 500 mg solution for injection RxNorm: 9445168 06/24/2016 No longer Active Immunizations Vaccine Codes [...] Item Item Code Result Date Comp Metabolic Gst110 NA 139 mEq/L 05/08/2017 Comp Metabolic Qbn377 K 4.1 mEq/L 05/08/2017 Comp Metabolic Vtf070 CL 103 mEq/L 05/08/2017 Comp Metabolic Fvg159 CO2 28.0 mEq/L 05/08/2017 Comp Metabolic Npj881 ANION GAP 12 05/08/2017 Comp Metabolic Xcf450 GLUCOSE 75 mg/dL 05/08/2017 Comp Metabolic Rul778 Creat 1.3 mg/dL 05/08/2017 Comp Metabolic War542 eGFR 55 ml/min/1.73m2 05/08/2017 Comp Metabolic Dse679 BUN 20 mg/dL 05/08/2017 Comp Metabolic Nxf729 B/C Ratio 14.9 Ratio 05/08/2017 Comp Metabolic Khp179 CALCIUM 8.8 mg/dL 05/08/2017 Comp Metabolic Bpw226 ALK PHOS 51 U/L 05/08/2017 Comp Metabolic Evp880 AST(SGOT) 30 U/L 05/08/2017 Comp Metabolic Trf154 ALT(SGPT) 31 U/L 05/08/2017 Comp Metabolic Kmf282 BILI T 0.9 mg/dL 05/08/2017 Comp Metabolic Uav718 ALBUMIN 4.0 g/dL 05/08/2017 Comp Metabolic Ksh905 TPRO 6.5 g/dL 05/08/2017 Comp Metabolic Dqh706 GLOB 2.6 g/dL 05/08/2017 Comp Metabolic Msk386 A/G Ratio 1.5 Ratio 05/08/2017 Comp Metabolic Ywh126 Osmo 279 mOsmo 05/08/2017 Cbc With Differential Ord2 WBC 8.45 K/ul 05/08/2017 Cbc With Differential Ord2 RBC 4.63 M/ul 05/08/2017 Cbc With Differential Ord2 HGB 14.6 g/dl 05/08/2017 Cbc With Differential Ord2 HCT 43.5 % 05/08/2017 Cbc With Differential Ord2 Neut% 68.4 % 05/08/2017 Cbc With Differential Ord2 Lymph% 15.3 % 05/08/2017 Cbc With Differential Ord2 MCV 94.0 fl 05/08/2017 Cbc With Differential Ord2 Loup% 13.5 % 05/08/2017 Cbc With Differential Ord2 MCH 31.5 pg 05/08/2017 Cbc With Differential Ord2 Eos% [...] 1.29 K/ul 05/08/2017 Cbc With Differential Ord2 Loup ABS# 1.1 K/ul 05/08/2017 Cbc With Differential Ord2 Eos ABS# 0.2 K/ul 05/08/2017 Cbc With Differential Ord2 Baso ABS# 0.0 K/ul 05/08/2017 Pt Qev8993 PT 22.7 seconds 11/22/2016 Pt Lmp3818 INR 2.1 11/22/2016 Pt Mlo6520 Low Intensity - 1.5-2.0 11/22/2016 Pt Hyp2531 Mod intensity - 2.0-3.0 11/22/2016 Pt Hto0307 Hi intensity - 3.0-4.0 11/22/2016 Pt Drj3009 PT 24.4 seconds 10/25/2016 Pt Zsz2639 INR 2.3 10/25/2016 Pt Rze0831 Low Intensity - 1.5-2.0 10/25/2016 Pt Zyy1650 Mod intensity - 2.0-3.0 10/25/2016 Pt Uol5440 Hi intensity - 3.0-4.0 10/25/2016 Pt Fkd6702 PT 23.5 seconds 09/04/2016 Pt Doz6645 INR 2.2 09/04/2016 Pt Cnd4330 Low Intensity - 1.5-2.0 09/04/2016 Pt Oml7248 Mod intensity - 2.0-3.0 09/04/2016 Pt Ldq2643 Hi intensity - 3.0-4.0 09/04/2016 Pt Mgc3614 PT 26.1 seconds 07/09/2016 Pt Lpp8864 INR 2.6 07/09/2016 Pt Jul8568 Low Intensity - 1.5-2.0 07/09/2016 Pt Uec1317 Mod intensity - 2.0-3.0 07/09/2016 Pt Ewj8605 Hi intensity - 3.0-4.0 07/09/2016 Pt Akx3170 PT 19.4 seconds 06/24/2016 Pt Dki2008 INR 1.7 06/24/2016 Pt Gxq3329 Low Intensity - 1.5-2.0 06/24/2016 Pt Ixu7006 Mod intensity - 2.0-3.0 06/24/2016 Pt Rwd7039 Hi intensity - 3.0-4.0 06/24/2016 Pt Tcz7552 PT 28.9 seconds 04/26/2016 Pt Xfb6123 INR 2.9 04/26/2016 Pt Oop9161 Low Intensity - 1.5-2.0 04/26/2016 Pt Qmo2558 Mod intensity - 2.0-3.0 04/26/2016 Pt Chb5703 Hi intensity - 3.0-4.0 04/26/2016 Tsh Ord6 hTSH II 1.21 uIU/mL 02/29/2016 Pt Wyw5177 PT 21.8 seconds 02/29/2016 Pt Ddo2539 INR 2.0 02/29/2016 Pt Wdc2736 Low Intensity - 1.5-2.0 02/29/2016 Pt Xoh5398 Mod intensity - 2.0-3.0 02/29/2016 Pt Odj1612 Hi intensity - 3.0-4.0 02/29/2016 Lipid Ord30 [...] Ord2 RDW 16.2 % 06/30/2015 Comp Metabolic Zhn540 NA 138 mEq/L 06/30/2015 Comp Metabolic Tfn509 K 4.8 mEq/L 06/30/2015 Comp Metabolic Jeh551 CL 107 mEq/L 06/30/2015 Comp Metabolic Ozt446 CO2 27.0 mEq/L 06/30/2015 Comp Metabolic Yem791 ANION GAP 9 06/30/2015 Comp Metabolic Ubp429 GLUCOSE 98 mg/dL 06/30/2015 Comp Metabolic Fmt622 Creat 1.8 mg/dL 06/30/2015 Comp Metabolic Hob954 eGFR 40 ml/min/1.73m2 06/30/2015 Comp Metabolic Fmi788 BUN 20 mg/dL 06/30/2015 Comp Metabolic Awa577 B/C Ratio 11.1 Ratio 06/30/2015 Comp Metabolic Voc931 CALCIUM 9.1 mg/dL 06/30/2015 Comp Metabolic Jyr226 ALK PHOS 39 U/L 06/30/2015 Comp Metabolic Vyf431 AST(SGOT) 21 U/L 06/30/2015 Comp Metabolic Pva580 ALT(SGPT) 23 U/L 06/30/2015 Comp Metabolic Grm472 BILI T 0.5 mg/dL 06/30/2015 Comp Metabolic Sdv766 ALBUMIN 4.0 g/dL 06/30/2015 Comp Metabolic Xnh812 TPRO 6.6 g/dL 06/30/2015 Comp Metabolic Sdd093 GLOB 2.6 g/dL 06/30/2015 Comp Metabolic Ujq630 A/G Ratio 1.5 Ratio 06/30/2015 Comp Metabolic Gdy946 Osmo 278 mOsmo 06/30/2015 Pt Hpk2958 PT 26.1 seconds 06/30/2015 Pt Cpl5236 INR 2.5 06/30/2015 Pt Qqm4471 Low Intensity - 1.5-2.0 06/30/2015 Pt Yuz2099 Mod intensity - 2.0-3.0 06/30/2015 Pt Anc7339 Hi intensity - 3.0-4.0 06/30/2015 Review of [...] Procedure Codes Date THER/PROPH/DIAG INJ SC/IM CPT-4: 30316Nvksghu 01/21/2017 TRIAMCINOLONE ACET INJ NOS CPT-4: N1762Nhukrzt 01/21/2017 THER/PROPH/DIAG INJ SC/IM CPT-4: 54035Ntwykmf 12/30/2016 ROCEPHIN, PER 250 MG CPT-4: Q0608Kslonci 12/30/2016 PPPS, SUBSEQ VISIT CPT-4: Y4678Ncsnvsk 10/25/2016 ROCEPHIN, PER 250 MG CPT-4: Q0368Ymftdcf 06/24/2016 THER/PROPH/DIAG INJ SC/IM CPT-4: 30671Dnwandu 06/24/2016 Vital Signs Date Vital 05/08/2017 Blood Pressure 1: 128/80 Code: 8480-6 BMI: 30.0 Code: 16624-8 Heart Rate 1: 75 bpm Height: 5'8" SpO2: 98% Weight: 197 lbs 03/25/2017 Blood Pressure 1: 150/80 Code: 8480-6 BMI: 30.1 Code: 26807-6 Heart Rate 1: 53 bpm Height: 5'8" SpO2: 98% Weight: 198 lbs 01/21/2017 Blood Pressure 1: 156/88 Code: 8480-6 BMI: 29.8 Code: 45844-1 Heart Rate 1: 95 bpm Height: 5'8" SpO2: 98% Temperature: 36.9 (C) / 98.4 (F) Weight: 196 lbs 12/30/2016 Blood Pressure 1: 122/74 Code: 8480-6 BMI: 29.8 Code: 29908-1 Heart Rate 1: 60 bpm Height: 5'8" SpO2: 96% Temperature: 37.1 (C) / 98.8 (F) Weight: 196 lbs 12/26/2016 Blood Pressure 1: 142/74 Code: 8480-6 BMI: 29.8 Code: 73476-5 Heart Rate 1: 58 bpm Height: 5'8" SpO2: 96% Temperature: 36.7 (C) / 98.0 (F) Weight: 196 lbs 12/02/2016 Blood Pressure 1: 128/78 Code: 8480-6 BMI: 30.3 Code: 64888-8 Heart Rate 1: 49 bpm Height: 5'8" SpO2: 98% Temperature: 36.5 (C) / 97.7 (F) Weight: 199 lbs 11/21/2016 Blood Pressure 1: 130/68 Code: 8480-6 BMI: 30.3 Code: 20300-8 Heart Rate 1: 54 bpm Height: 5'8" SpO2: 98% Weight: 199 lbs 10/25/2016 Blood Pressure 1: 150/92 Code: 8480-6 BMI: 29.8 Code: 73269-3 Heart Rate 1: 54 bpm Height: 5'8" SpO2: 97% Waist Measure (cm): 97 cm Weight: 196 lbs 10/23/2016 Blood Pressure 1: 150/92 Code: 8480-6 BMI: 29.9 Code: 07261-0 Heart Rate 1: 54 bpm Height: 5'8" SpO2: 98% Weight: 196 lbs 8 oz 07/29/2016 Blood Pressure 1: 144/72 Code: 8480-6 BMI: 30.3 Code: 38579-2 Heart Rate 1: 54 bpm Height: 5'8" SpO2: 98% Weight: 199 lbs 06/24/2016 Blood Pressure 1: 132/78 Code: 8480-6 BMI: 29.5 Code: 21773-3 Heart Rate 1: 59 bpm Height: 5'8" SpO2: 94% Weight: 194 lbs 02/21/2016 Blood Pressure 1: 138/84 Code: 8480-6 BMI: 30.3 Code: 44090-2 Heart Rate 1: 64 bpm Height: 5'8" SpO2: 95% Weight: 199 lbs 10/18/2015 Blood Pressure 1: 154/84 Code: 8480-6 Blood Pressure 1: 138/72 Code: 8480-6 BMI: 30.4 Code: 68084-5 Heart Rate 1: 68 bpm Height: 5'8" SpO2: 97% Weight: 200 lbs 05/02/2015 Blood Pressure 1: 114/64 Code: 8480-6 BMI: 29.0 Code: 79152-7 Heart Rate 1: 62 bpm Height: 5'8" [...] data Encounters Encounter Performer Location Codes Date 98187 EST. PATIENT, LEVEL IV Diagnosis: Left lower quadrant pain[ICD10: R10.32] Diagnosis: Other fatigue[ICD10: R53.83] [facility] CPT-4: 42063 05/08/2017 ([id number]) 69863 EST. PATIENT, LEVEL III Diagnosis: Essential (primary) hypertension[ICD10: I10] [facility] CPT-4: 53916 03/25/2017 ([id number]) 76247 EST. PATIENT, LEVEL III Diagnosis: Cough[ICD10: R05] Diagnosis: Allergic rhinitis due to pollen[ICD10: J30.1] Leidy Husain MD [facility] CPT-4: 82190 01/21/2017 40768 EST. PATIENT, LEVEL III Diagnosis: Other allergic rhinitis[ICD10: J30.89] Diagnosis: Cough[ICD10: R05] Gabrielle Husain MD [facility] CPT-4: 60898 12/30/2016 ([id number]) 60678 EST. PATIENT, LEVEL III Diagnosis: Cough[ICD10: R05] Diagnosis: Pneumonia, unspecified organism[ICD10: J18.9] Leidy Husain MD [facility] CPT-4: 32094 12/26/2016 ([id number]) 59640 EST. PATIENT, LEVEL III Diagnosis: Pneumonia due to other streptococci[ICD10: J15.4] Diagnosis: Cough[ICD10: R05] Amanda Husain MD [facility] CPT-4: 21210 12/02/2016 ([id number]) 58096 EST. PATIENT, LEVEL III Diagnosis: Essential (primary) hypertension[ICD10: I10] Amanda Husain MD [facility] CPT-4: 62482 11/21/2016 ([id number]) 49904 EST. PATIENT, LEVEL IV Diagnosis: Essential (primary) hypertension[ICD10: I10] Diagnosis: Mixed hyperlipidemia[ICD10: E78.2] Amanda Husain MD [facility] CPT- 4: 19421 10/23/2016 02991 EST. PATIENT, LEVEL IV Diagnosis: Other allergic rhinitis[ICD10: J30.89] Diagnosis: Cough[ICD10: R05] Gabrielle Husain MD, [facility] CPT-4: 51874 07/29/2016 ([id number]) Miscellaneous no charge Diagnosis: Pneumonia, unspecified organism[ICD10: J18.9] Gabrielle Husain MD [facility] CPT-4: 50140 06/27/2016 ([id number]) 15450 EST. PATIENT, LEVEL IV Diagnosis: Essential (primary) hypertension[ICD10: I10] Diagnosis: Pneumonia, unspecified organism[ICD10: J18.9] Diagnosis: Cough[ICD10: R05] Diagnosis: Mixed hyperlipidemia[ICD10: E78.2] Amanda Husain MD, [facility] CPT- 4: 30150 06/24/2016 ([id number]) 28684 EST. PATIENT, LEVEL IV Diagnosis: Mixed hyperlipidemia[ICD10: E78.2] Diagnosis: Essential (primary) hypertension[ICD10: I10] Diagnosis: Gastro-esophageal reflux disease without esophagitis[ICD10: K21.9] Amanda Husain MD, [facility] CPT-4: 12824 02/21/2016 ([id number] 15932 EST. 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 03/25/2017 Appointment: Amanda Husain WPtel: [facility] (15 min) Moderate 03/25/2017 Patient Education: Patient Medication Summary Completed 03/25/2017 Appointment: Leidy Angulo WPtel: [facility]0 [phone] (15 min) Moderate 01/31/2017 Visit Plan: URI/Allergies - Pt advised to increase fluids, vitamin C. Discussed natural and expected course of this diagnosis and need to alert me if symptoms do not follow expected course, or if any worse. RX sent to patient's pharmacy. 01/21/2017 Appointment: Leidy Angulo WPtel: [phone] (15 min) Moderate 01/21/2017 Patient Education: Patient [...] Leidy Angulo WPtel: [phone] [place] (15 min) Moderate 12/30/2016 Appointment: Gabrielle Corona WPtel: [facility] [place] [place] (30 min) Complex 12/30/2016 Patient Education: [...] levaquin. 12/26/2016 Appointment: Leidy Angulo WPtel: [phone] [phone] (15 min) Moderate 12/26/2016 Patient Education: Patient [...] home. 11/21/2016 [facility]ment[phone] ([facility] min) Moderate 11/21/2016 Patient Education: [...] surrogate. 10/25/2016 Appointment: Leidy Angulo [facility]Ptel[facility] [phone] [facility] [phone] [facility] - Annual Wellness Visit 10/25/2016 Patient [...] medications. 10/23/2016 Appointment: [phone] [facility] (15 min) Moderate 10/23/2016 Patient Education: [...] any concerns. 07/29/2016 Appointment: Gabrielle Corona [facility]Ptel[facility] [phone] [facility] [place] (15 min) Moderate 07/29/2016 Patient Education: Patient [...] to medications. 06/24/2016 Appointment: Amanda Husain WPtel: [address] [place], [place] [address] (15 min) Moderate 06/24/2016 Patient Education: Patient [...] not improving. 02/21/2016 Appointment: Amanda Husain WPtel: [facility] (15 min) Moderate 02/21/2016 Patient Education: [...] Care Plan: COMPLETE CBC AUTOMATED LOINC : 77256-5 Ordered 05/02/2015 Care Plan: ASSAY OF TROPONIN [...] symptoms are not controlled with the medication. [employer] or [employer] - take three times daily x 7 [...]
--- OUTSIDE RECORDS SUMMARY | 2019-05-19 10:54 | XMS REPORT | CCD ---
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 Name Role Phone PP Unavailable CCM Unavailable Summary Purpose Interface Exchange Insurance Providers Payer name Policy type / Coverage type Covered republican ID Effective Begin Date Effective End Date WPS Medicare Part B [id number] Unknown [employer] [id number] Unknown Family history Brother Diagnosis Age At [...] Unknown Retired 05/02/[address]: 5255836 Former smoker Quit in 1966 05/02/2015 Number [...] Instructions Zithromax Z-Carlo 250 mg tablet RxNorm: 639883 2 Tablet(s) PO on 1 st day then 1 daily x 4 days ZPACK X 1 01/15/2019 No Stop Date Active metronidazole 500 mg tablet RxNorm: 268376 1 Tablet(s) PO TID 12/23/2018 01/01/2019 Inactive omeprazole 20 mg capsule,delayed release RxNorm: 312741 TAKE 1 CAPSULE BY MOUTH ONCE DAILY 12/07/2018 No Stop Date Active metoprolol tartrate 25 mg tablet RxNorm: 651754 Tablet(s) TAKE 1 TABLET BY MOUTH TWICE DAILY 10/16/2018 No Stop Date Active metoprolol tartrate 25 mg tablet RxNorm: 473989 TAKE 1 TABLET BY MOUTH TWICE DAILY 07/13/2018 10/15/2018 Inactive Trilipix 135 mg capsule,delayed release RxNorm: 181892 1 Capsule(s) PO daily 06/17/2018 10/14/2018 Inactive ramipril 10 mg capsule RxNorm: 099329 TAKE ONE CAPSULE BY MOUTH ONCE DAILY 06/15/2018 No Stop Date Active omeprazole 20 mg capsule,delayed release RxNorm: 626923 Capsule(s) TAKE ONE CAPSULE BY MOUTH ONCE DAILY 06/03/2018 No Stop Date Active omeprazole 20 mg capsule,delayed release RxNorm: 510406 Capsule(s) TAKE ONE CAPSULE BY MOUTH ONCE DAILY 06/02/2018 06/02/2018 Inactive metoprolol tartrate 25 mg tablet RxNorm: 874194 TAKE ONE TABLET BY MOUTH TWICE DAILY 02/16/2018 07/12/2018 Inactive omeprazole 20 mg capsule,delayed release RxNorm: 442437 TAKE ONE CAPSULE BY MOUTH ONCE DAILY 01/05/2018 06/01/2018 Inactive metoprolol tartrate 25 mg tablet RxNorm: 282209 TAKE ONE TABLET BY MOUTH TWICE DAILY 10/27/2017 02/15/2018 Inactive azithromycin 250 mg tablet RxNorm: 555425 1 Tablet(s) PO UD 2 tabs on day #1, then 1 pill daily x 4 days 09/22/2017 11/25/2017 Inactive omeprazole 20 mg capsule,delayed release RxNorm: 802351 TAKE ONE CAPSULE BY MOUTH ONCE DAILY 06/16/2017 12/12/2017 Inactive metronidazole 500 mg tablet RxNorm: 366903 1 Tablet(s) PO TID 05/08/2017 05/14/2017 Inactive ramipril 10 mg capsule RxNorm: 253891 1 Capsule(s) PO daily 03/25/2017 03/19/2018 Inactive Kenalog 40 mg/mL suspension for injection RxNorm: 3983170 Milliliter(s) Inj 01/21/2017 01/21/2017 Inactive ceftriaxone 500 mg solution for injection RxNorm: 0158776 Inj 12/30/2016 12/30/2016 Inactive Phenergan with Codeine Syrup RxNorm: 5-10 Milliliter(s) PO Q6 PRN 12/26/2016 No Stop Date Active Levaquin 500 mg tablet RxNorm: 115356 1 Tablet(s) PO daily 12/26/2016 01/01/2017 Inactive Tessalon Perles 100 mg capsule RxNorm: 210416 1 Capsule(s) PO TID as needed 12/26/2016 01/04/2017 Inactive prednisone 20 mg tablet RxNorm: 194862 1 Tablet(s) PO BID 12/26/2016 12/30/2016 Inactive omeprazole 20 mg capsule,delayed release RxNorm: 636199 TAKE ONE CAPSULE BY MOUTH ONCE DAILY 12/16/2016 06/13/2017 Inactive cefdinir 300 mg capsule RxNorm: 894668 1 Capsule(s) PO BID 12/02/2016 12/08/2016 Inactive azithromycin 250 mg tablet RxNorm: 362665 Tablet(s) 2 tabs on day #1, then one tab PO daily x 4 more days 12/02/2016 12/25/2016 Inactive metoprolol tartrate 25 mg tablet RxNorm: 811943 1 Tablet(s) PO BID 10/23/2016 10/17/2017 Inactive metoprolol tartrate 25 mg tablet RxNorm: 484688 1 Tablet(s) PO BID 10/23/2016 10/22/2016 Inactive ceftriaxone 500 mg solution for injection RxNorm: 1658451 Inj 06/24/2016 06/24/2016 Inactive cefdinir 300 mg capsule RxNorm: 129691 1 Capsule(s) PO BID 06/24/2016 06/30/2016 Inactive omeprazole 20 mg capsule,delayed release RxNorm: 797714 TAKE ONE CAPSULE BY MOUTH DAILY 06/07/2016 12/03/2016 Inactive omeprazole 20 mg capsule,delayed release RxNorm: 280959 TAKE ONE CAPSULE BY MOUTH DAILY 01/29/2016 05/27/2016 Inactive metoprolol tartrate 50 mg tablet RxNorm: 052262 Tablet(s) TAKE ONE TABLET BY MOUTH DAILY 10/11/2015 10/10/2015 Inactive metoprolol tartrate 50 mg tablet RxNorm: 701419 TAKE ONE TABLET BY MOUTH DAILY 10/11/2015 10/22/2016 Inactive omeprazole 20 mg capsule,delayed release RxNorm: 441381 TAKE ONE CAPSULE BY MOUTH DAILY 08/28/2015 01/24/2016 Inactive metoprolol tartrate 50 mg tablet RxNorm: 042509 TAKE ONE TABLET BY MOUTH DAILY 08/11/2015 10/09/2015 Inactive metoprolol tartrate 50 mg tablet RxNorm: 665481 1 Tablet(s) PO daily 06/14/2015 08/10/2015 Inactive omeprazole 20 mg capsule,delayed release RxNorm: 936989 1 Capsule(s) PO daily 05/29/2015 08/26/2015 Inactive omeprazole 20 mg capsule,delayed release RxNorm: 530510 1 Capsule(s) PO daily 05/29/2015 05/28/2015 Inactive metronidazole 500 mg tablet RxNorm: 906401 1 Tablet(s) PO TID 05/02/2015 05/08/2015 Inactive finasteride 5 mg tablet RxNorm: 272696 1 Tablet(s) PO daily No Start Date Active warfarin 5 mg tablet RxNorm: 797596 1 Tablet(s) PO daily No Start Date Active Aspirin Childrens 81 mg chewable tablet RxNorm: 864416 1 Tablet(s) PO daily No Start Date Active amiodarone 200 mg tablet RxNorm: 536233 1 Tablet(s) PO daily No Start Date Active vitamin E (dl, acetate) 1,000 unit capsule RxNorm: 993182 1 Capsule(s) PO daily No Start Date Active atorvastatin 80 mg tablet RxNorm: 628229 1 Tablet(s) PO daily No Start Date Active Fish Oil 120 mg-180 mg capsule RxNorm: 961590 1 Capsule(s) PO BID No Start Date 10/30/2017 Inactive metoprolol tartrate 50 mg tablet RxNorm: 081868 1 Tablet(s) PO daily No Start Date 06/13/2015 Inactive Zetia 10 mg tablet RxNorm: 630775 1 Tablet(s) PO daily No Start Date 10/17/2015 Inactive ramipril 5 mg capsule RxNorm: 263918 1 Capsule(s) PO daily No Start Date 03/24/2017 Inactive Tessalon Perles 100 mg capsule RxNorm: 853215 1 Capsule(s) PO TID as needed No Start Date 12/25/2016 Inactive omeprazole 20 mg capsule,delayed release RxNorm: 136261 1 Capsule(s) PO daily No Start Date 05/28/2015 Inactive Zithromax Z-Carlo 250 mg tablet RxNorm: 279643 2 Tablet(s) PO on 1 st day then 1 daily x 4 days ZPACK X 1 No Start Date 01/14/2019 Inactive Trilipix 135 mg capsule,delayed release RxNorm: 339524 1 Capsule(s) PO daily No Start Date 06/16/2018 Inactive Centrum Silver tablet RxNorm: 1 Tablet(s) PO daily No Start Date 10/30/2017 Inactive Medication Administered Medication Codes Instructions Start Date Status Kenalog 40 mg/mL suspension for injection RxNorm: 8266049 Milliliter 01/21/2017 No longer Active ceftriaxone 500 mg solution for injection RxNorm: 7830716 12/30/2016 No longer Active ceftriaxone 500 mg solution for injection RxNorm: 1819474 06/24/2016 No longer Active Immunizations Vaccine Codes [...] Code Item Item Code Result Date Pt Aop4601 PT 29.7 seconds 03/03/2019 Pt Hzc4756 INR 2.9 03/03/2019 Pt Rzb7094 Low Intensity - 1.5-2.0 03/03/2019 Pt Kpe0234 Mod intensity - 2.0-3.0 03/03/2019 Pt Vhf8629 Hi intensity - 3.0-4.0 03/03/2019 Pt Rjw0859 PT 27.9 seconds 02/24/2019 Pt Dem5018 INR 2.7 02/24/2019 Pt Suk2361 Low Intensity - 1.5-2.0 02/24/2019 Pt Typ3850 Mod intensity - 2.0-3.0 02/24/2019 Pt Yrw3130 Hi intensity - 3.0-4.0 02/24/2019 Pt Gkv3836 PT 16.6 seconds 02/15/2019 Pt Pii0145 INR 1.4 02/15/2019 Pt Mdm3580 Low Intensity - 1.5-2.0 02/15/2019 Pt Fia7120 Mod intensity - 2.0-3.0 02/15/2019 Pt Nys7378 Hi intensity - 3.0-4.0 02/15/2019 Pt Dzf0697 PT 16.6 seconds 02/05/2019 Pt Cki4924 INR 1.4 02/05/2019 Pt Tpu9708 Low Intensity - 1.5-2.0 02/05/2019 Pt Gpq8852 Mod intensity - 2.0-3.0 02/05/2019 Pt Szg1849 Hi intensity - 3.0-4.0 02/05/2019 Pt Pwx2421 PT 39.6 seconds 02/01/2019 Pt Fez3516 INR 4.1 02/01/2019 Pt Lvl0260 Low Intensity - 1.5-2.0 02/01/2019 Pt Rvg8219 Mod intensity - 2.0-3.0 02/01/2019 Pt Wwg2606 Hi intensity - 3.0-4.0 02/01/2019 Pt Vxa3828 PT 31.9 seconds 01/20/2019 Pt Rdf7962 INR 3.1 01/20/2019 Pt Rme1827 Low Intensity - 1.5-2.0 01/20/2019 Pt Bzc9096 Mod intensity - 2.0-3.0 01/20/2019 Pt Sjp1562 Hi intensity - 3.0-4.0 01/20/2019 Pt Oip6871 PT 21.0 seconds 01/12/2019 Pt Hvo7432 INR 1.9 01/12/2019 Pt Qhi4704 Low Intensity - 1.5-2.0 01/12/2019 Pt Llq1080 Mod intensity - 2.0-3.0 01/12/2019 Pt Kdl1367 Hi intensity - 3.0-4.0 01/12/2019 Pt Kwt5944 PT 31.8 seconds 01/07/2019 Pt Nkr2309 INR 3.1 01/07/2019 Pt Lha2668 Low Intensity - 1.5-2.0 01/07/2019 Pt Oye5404 Mod intensity - 2.0-3.0 01/07/2019 Pt Lwb9463 Hi intensity - 3.0-4.0 01/07/2019 Pt Wss2792 PT 48.2 seconds 01/05/2019 Pt Ulb5601 INR 5.2 01/05/2019 Pt Nnh2001 Low Intensity - 1.5-2.0 01/05/2019 Pt Dqq7894 Mod intensity - 2.0-3.0 01/05/2019 Pt Wlm6283 Hi intensity - 3.0-4.0 01/05/2019 Pt Wwx9221 PT 17.6 seconds 12/25/2018 Pt Abn2345 INR 1.5 12/25/2018 Pt Duj8349 Low Intensity - 1.5-2.0 12/25/2018 Pt Cye0229 Mod intensity - 2.0-3.0 12/25/2018 Pt Rgb8581 Hi intensity - 3.0-4.0 12/25/2018 Cbc With [...] 30.0 pg 12/10/2018 Cbc With Differential Ord2 [place]% 10.5 % 12/10/2018 Cbc With Differential Ord2 [...] 2.09 K/ul 12/10/2018 Cbc With Differential Ord2 [place] ABS# 0.8 K/ul 12/10/2018 Cbc With Differential Ord2 Eos ABS# 0.4 K/ul 12/10/2018 Cbc With Differential Ord2 Baso ABS# 0.0 K/ul 12/10/2018 Uric Acid Ord77 Uric A 4.6 mg/dL 12/10/2018 Random Urine Protein/Creatinine Ratio Trt9150 U Prot 9.0 mg/dl 12/10/2018 Random Urine Protein/Creatinine Ratio Iyt9347 U CREAT 126.0 mg/dL 12/10/2018 Random Urine Protein/Creatinine Ratio Kea1753 R MTP/Creat Ratio 0.07 12/10/2018 Ferritin Ord22 FERRITIN 47.9 ng/mL 12/10/2018 Renal Koq976 NA 142 mEq/L 12/10/2018 Renal Ons738 K 4.3 mEq/L 12/10/2018 Renal Mzk926 CL 106 mEq/L 12/10/2018 Renal Ouf446 CO2 30.0 mEq/L 12/10/2018 Renal Xak397 ANION GAP 10 12/10/2018 Renal Nlc701 Osmo 286 mOsmo 12/10/2018 Renal Dcc805 GLUCOSE 105 mg/dL 12/10/2018 Renal Zsk316 BUN 20 mg/dL 12/10/2018 Renal Qee964 Creat 1.4 mg/dL 12/10/2018 Renal Ftk613 eGFR 52 ml/min/1.73m2 12/10/2018 Renal Got564 B/C Ratio 14.1 Ratio 12/10/2018 Renal Ekr354 CALCIUM 9.7 mg/dL 12/10/2018 Renal Fab888 PHOS 3.3 mg/dL 12/10/2018 Renal Yes399 ALBUMIN 4.0 g/dL 12/10/2018 Urinalysis Ord28 U-Color [...] 17.8 % 12/10/2018 Vitamin D 25 Oh Hyv6111 VITAMIN D, 25 HYDROXY 27.29 ng/mL 12/10/2018 Pt Wsa0274 PT 23.1 seconds 11/05/2018 Pt Gcl6064 INR 2.1 11/05/2018 Pt Yqr5346 Low Intensity - 1.5-2.0 11/05/2018 Pt Bmq7141 Mod intensity - 2.0-3.0 11/05/2018 Pt Jkh7684 Hi intensity - 3.0-4.0 11/05/2018 Pt Vzr3486 PT 29.8 seconds 08/17/2018 Pt Nkd0291 INR 2.8 08/17/2018 Pt Cei8629 Low Intensity - 1.5-2.0 08/17/2018 Pt Qre6592 Mod intensity - 2.0-3.0 08/17/2018 Pt Pcg8989 Hi intensity - 3.0-4.0 08/17/2018 Pt Jiy3417 PT 27.7 seconds 05/18/2018 Pt Eax9276 INR 2.6 05/18/2018 Pt Yso8638 Low Intensity - 1.5-2.0 05/18/2018 Pt Jub2739 Mod intensity - 2.0-3.0 05/18/2018 Pt Jei4074 Hi intensity - 3.0-4.0 05/18/2018 Uric Acid [...] 30.9 pg 05/18/2018 Cbc With Differential Ord2 [place]% 13.8 % 05/18/2018 Cbc With Differential Ord2 [...] 1.94 K/ul 05/18/2018 Cbc With Differential Ord2 [place] ABS# 0.9 K/ul 05/18/2018 Cbc With Differential Ord2 Eos ABS# 0.4 K/ul 05/18/2018 Cbc With Differential Ord2 Baso ABS# 0.0 K/ul 05/18/2018 Random Urine Protein/Creatinine Ratio Qfx9346 U Prot 7.0 mg/dl 05/18/2018 Random Urine Protein/Creatinine Ratio Hed3496 U CREAT 75.0 mg/dL 05/18/2018 Random Urine Protein/Creatinine Ratio Jbp1669 R MTP/Creat Ratio 0.09 05/18/2018 Vitamin D 25 Oh Uhw8494 VITAMIN D, 25 HYDROXY 27.40 ng/mL 05/18/2018 Tibc Ord40 Iron 68 ug/dl 05/18/2018 Tibc Ord40 UIBC 308 ug/dL 05/18/2018 Tibc Ord40 TIBC 376 ug/dL 05/18/2018 Tibc Ord40 Fe-%Sat 18.1 % 05/18/2018 Parathyroid Hormone Mac049 PTH 36.20 pg/ml 05/18/2018 Urinalysis Ord28 U-Color [...] hours from collection if refrigerated) 05/18/2018 Renal Ntt529 NA 141 mEq/L 05/18/2018 Renal Ipr670 K 4.0 mEq/L 05/18/2018 Renal Cog185 CL 107 mEq/L 05/18/2018 Renal Pdh990 CO2 27.0 mEq/L 05/18/2018 Renal Eia025 ANION GAP 11 05/18/2018 Renal Oqf348 Osmo 282 mOsmo 05/18/2018 Renal Jzs868 GLUCOSE 83 mg/dL 05/18/2018 Renal Dke073 BUN 18 mg/dL 05/18/2018 Renal Yrc115 Creat 1.4 mg/dL 05/18/2018 Renal Elo217 eGFR 55 ml/min/1.73m2 05/18/2018 Renal Jtt905 B/C Ratio 13.3 Ratio 05/18/2018 Renal Nfj231 CALCIUM 9.0 mg/dL 05/18/2018 Renal Wew523 PHOS 2.9 mg/dL 05/18/2018 Renal Soq539 ALBUMIN 4.0 g/dL 05/18/2018 Ferritin Ord22 FERRITIN [...] Metabolic Ord15 CALCIUM 9.2 mg/dL 03/23/2018 Pt Tjx6491 PT 29.0 seconds 03/13/2018 Pt Vxp4617 INR 2.7 03/13/2018 Pt Wnm9485 Low Intensity - 1.5-2.0 03/13/2018 Pt Gdt3595 Mod intensity - 2.0-3.0 03/13/2018 Pt Ieq3153 Hi intensity - 3.0-4.0 03/13/2018 Pt Jct2520 PT 31.6 seconds 03/04/2018 Pt Ntw6172 INR 3.0 03/04/2018 Pt Jwx8936 Low Intensity - 1.5-2.0 03/04/2018 Pt Brq2272 Mod intensity - 2.0-3.0 03/04/2018 Pt Jux6646 Hi intensity - 3.0-4.0 03/04/2018 Pt Tjz7812 PT 33.3 seconds 01/29/2018 Pt Oqv4714 INR 3.2 01/29/2018 Pt Txi3895 Low Intensity - 1.5-2.0 01/29/2018 Pt Rje3173 Mod intensity - 2.0-3.0 01/29/2018 Pt Pgc9641 Hi intensity - 3.0-4.0 01/29/2018 Pt Ewx7620 PT 26.1 seconds 01/21/2018 Pt Wmc1427 INR 2.4 01/21/2018 Pt Rmp7074 Low Intensity - 1.5-2.0 01/21/2018 Pt Ewz6863 Mod intensity - 2.0-3.0 01/21/2018 Pt Htn4483 Hi intensity - 3.0-4.0 01/21/2018 Pt Ztc1467 PT 35.7 seconds 01/09/2018 Pt Qcs3361 INR 3.5 01/09/2018 Pt Tzg0211 Low Intensity - 1.5-2.0 01/09/2018 Pt Vux4189 Mod intensity - 2.0-3.0 01/09/2018 Pt Nfz9323 Hi intensity - 3.0-4.0 01/09/2018 Pt Nay3436 PT 23.8 seconds 12/04/2017 Pt Rco4204 INR 2.1 12/04/2017 Pt Cxb3617 Low Intensity - 1.5-2.0 12/04/2017 Pt Inz1411 Mod intensity - 2.0-3.0 12/04/2017 Pt Pra3687 Hi intensity - 3.0-4.0 12/04/2017 Pt Ezx7676 PT 32.3 seconds 11/12/2017 Pt Mgc0985 INR 3.1 11/12/2017 Pt Rjs1271 Low Intensity - 1.5-2.0 11/12/2017 Pt Xxs0232 Mod intensity - 2.0-3.0 11/12/2017 Pt Goh9507 Hi intensity - 3.0-4.0 11/12/2017 Urinalysis Ord28 [...] hours from collection if refrigerated) 10/20/2017 Pt Kha0387 PT 16.6 seconds 10/20/2017 Pt Zfn8505 INR 1.4 10/20/2017 Pt Lph8097 Low Intensity - 1.5-2.0 10/20/2017 Pt Usm1208 Mod intensity - 2.0-3.0 10/20/2017 Pt Qcp9617 Hi intensity - 3.0-4.0 10/20/2017 Renal Oie872 NA 142 mEq/L 10/20/2017 Renal Iyf711 K 4.5 mEq/L 10/20/2017 Renal Frm943 CL 107 mEq/L 10/20/2017 Renal Bkk695 CO2 28.0 mEq/L 10/20/2017 Renal Qzj000 ANION GAP 12 10/20/2017 Renal Hht778 Osmo 288 mOsmo 10/20/2017 Renal Acb575 GLUCOSE 96 mg/dL 10/20/2017 Renal Ozb975 BUN 27 mg/dL 10/20/2017 Renal Cxz960 Creat 1.6 mg/dL 10/20/2017 Renal Rzu180 eGFR 46 ml/min/1.73m2 10/20/2017 Renal Zqy047 B/C Ratio 17.2 Ratio 10/20/2017 Renal Ewn939 CALCIUM 9.4 mg/dL 10/20/2017 Renal Kmt757 PHOS 3.0 mg/dL 10/20/2017 Renal Uum718 ALBUMIN 4.2 g/dL 10/20/2017 Pt Ttp3244 PT 31.2 seconds 10/17/2017 Pt Pvx3421 INR 3.0 10/17/2017 Pt Ubq7668 Low Intensity - 1.5-2.0 10/17/2017 Pt Fiv5407 Mod intensity - 2.0-3.0 10/17/2017 Pt Yji4387 Hi intensity - 3.0-4.0 10/17/2017 Comp Metabolic Ujx591 NA 139 mEq/L 05/08/2017 Comp Metabolic Vro165 K 4.1 mEq/L 05/08/2017 Comp Metabolic Kaq705 CL 103 mEq/L 05/08/2017 Comp Metabolic Nrj659 CO2 28.0 mEq/L 05/08/2017 Comp Metabolic Oyr207 ANION GAP 12 05/08/2017 Comp Metabolic Hlg216 GLUCOSE 75 mg/dL 05/08/2017 Comp Metabolic Rqt519 Creat 1.3 mg/dL 05/08/2017 Comp Metabolic Dgv092 eGFR 55 ml/min/1.73m2 05/08/2017 Comp Metabolic Mbe732 BUN 20 mg/dL 05/08/2017 Comp Metabolic Htd368 B/C Ratio 14.9 Ratio 05/08/2017 Comp Metabolic Soq824 CALCIUM 8.8 mg/dL 05/08/2017 Comp Metabolic Qly282 ALK PHOS 51 U/L 05/08/2017 Comp Metabolic Wbc472 AST(SGOT) 30 U/L 05/08/2017 Comp Metabolic Hns509 ALT(SGPT) 31 U/L 05/08/2017 Comp Metabolic Rju242 BILI T 0.9 mg/dL 05/08/2017 Comp Metabolic Mlp554 ALBUMIN 4.0 g/dL 05/08/2017 Comp Metabolic Hhx401 TPRO 6.5 g/dL 05/08/2017 Comp Metabolic Jlg945 GLOB 2.6 g/dL 05/08/2017 Comp Metabolic Kbo329 A/G Ratio 1.5 Ratio 05/08/2017 Comp Metabolic Hal901 Osmo 279 mOsmo 05/08/2017 Cbc With Differential [...] 31.5 pg 05/08/2017 Cbc With Differential Ord2 [place]% 13.5 % 05/08/2017 Cbc With Differential Ord2 [...] 1.29 K/ul 05/08/2017 Cbc With Differential Ord2 [place] ABS# 1.1 K/ul 05/08/2017 Cbc With Differential Ord2 Eos ABS# 0.2 K/ul 05/08/2017 Cbc With Differential Ord2 Baso ABS# 0.0 K/ul 05/08/2017 Pt Rjp7259 PT 22.7 seconds 11/22/2016 Pt Baw5260 INR 2.1 11/22/2016 Pt Tlt5956 Low Intensity - 1.5-2.0 11/22/2016 Pt Hpk9877 Mod intensity - 2.0-3.0 11/22/2016 Pt Yqt0744 Hi intensity - 3.0-4.0 11/22/2016 Pt Dke2541 PT 24.4 seconds 10/25/2016 Pt Snf4347 INR 2.3 10/25/2016 Pt Ihe3463 Low Intensity - 1.5-2.0 10/25/2016 Pt Qlu8619 Mod intensity - 2.0-3.0 10/25/2016 Pt Mqy6333 Hi intensity - 3.0-4.0 10/25/2016 Pt Wqa1115 PT 23.5 seconds 09/04/2016 Pt Evt8744 INR 2.2 09/04/2016 Pt Khm1611 Low Intensity - 1.5-2.0 09/04/2016 Pt Nqd4562 Mod intensity - 2.0-3.0 09/04/2016 Pt Idw1641 Hi intensity - 3.0-4.0 09/04/2016 Pt Upr6252 PT 26.1 seconds 07/09/2016 Pt Vug3467 INR 2.6 07/09/2016 Pt Mpu8664 Low Intensity - 1.5-2.0 07/09/2016 Pt Iky0191 Mod intensity - 2.0-3.0 07/09/2016 Pt Bwe7120 Hi intensity - 3.0-4.0 07/09/2016 Pt Cml7646 PT 19.4 seconds 06/24/2016 Pt New2591 INR 1.7 06/24/2016 Pt Waa0890 Low Intensity - 1.5-2.0 06/24/2016 Pt Rig3890 Mod intensity - 2.0-3.0 06/24/2016 Pt Zrf9275 Hi intensity - 3.0-4.0 06/24/2016 Pt Isx0904 PT 28.9 seconds 04/26/2016 Pt Lzk0392 INR 2.9 04/26/2016 Pt Rrn4552 Low Intensity - 1.5-2.0 04/26/2016 Pt Xft9390 Mod intensity - 2.0-3.0 04/26/2016 Pt Arf3295 Hi intensity - 3.0-4.0 04/26/2016 Tsh Ord6 hTSH II 1.21 uIU/mL 02/29/2016 Pt Hlw9479 PT 21.8 seconds 02/29/2016 Pt Sel6485 INR 2.0 02/29/2016 Pt Rlf4163 Low Intensity - 1.5-2.0 02/29/2016 Pt Wem8786 Mod intensity - 2.0-3.0 02/29/2016 Pt Tbz0023 Hi intensity - 3.0-4.0 02/29/2016 Lipid Ord30 [...] Ord2 RDW 16.2 % 06/30/2015 Comp Metabolic Fkg640 NA 138 mEq/L 06/30/2015 Comp Metabolic Mpe486 K 4.8 mEq/L 06/30/2015 Comp Metabolic Qcp239 CL 107 mEq/L 06/30/2015 Comp Metabolic Wsb170 CO2 27.0 mEq/L 06/30/2015 Comp Metabolic Cym252 ANION GAP 9 06/30/2015 Comp Metabolic Fum073 GLUCOSE 98 mg/dL 06/30/2015 Comp Metabolic Bff967 Creat 1.8 mg/dL 06/30/2015 Comp Metabolic Bbi886 eGFR 40 ml/min/1.73m2 06/30/2015 Comp Metabolic Lcy704 BUN 20 mg/dL 06/30/2015 Comp Metabolic Zrg976 B/C Ratio 11.1 Ratio 06/30/2015 Comp Metabolic Fkx225 CALCIUM 9.1 mg/dL 06/30/2015 Comp Metabolic Jdh076 ALK PHOS 39 U/L 06/30/2015 Comp Metabolic Yej772 AST(SGOT) 21 U/L 06/30/2015 Comp Metabolic Jwp947 ALT(SGPT) 23 U/L 06/30/2015 Comp Metabolic Ufc803 BILI T 0.5 mg/dL 06/30/2015 Comp Metabolic Sac703 ALBUMIN 4.0 g/dL 06/30/2015 Comp Metabolic Cfd101 TPRO 6.6 g/dL 06/30/2015 Comp Metabolic Mnd765 GLOB 2.6 g/dL 06/30/2015 Comp Metabolic Noe705 A/G Ratio 1.5 Ratio 06/30/2015 Comp Metabolic Ovo199 Osmo 278 mOsmo 06/30/2015 Pt Lbg4222 PT 26.1 seconds 06/30/2015 Pt Hga4808 INR 2.5 06/30/2015 Pt Mqd7193 Low Intensity - 1.5-2.0 06/30/2015 Pt Ovk1971 Mod intensity - 2.0-3.0 06/30/2015 Pt Hsi2123 Hi intensity - 3.0-4.0 06/30/2015 Review of [...] Procedure Codes Date DESTRUCT PREMALG LESION CPT-4: 82795 12/31/2018 DESTRUCT PREMALG LES 2-14 CPT-4: 35961 12/31/2018 OCCULT BLOOD FECES CPT- 4: 06180 04/08/2018 PPPS, SUBSEQ VISIT CPT- 4: G0439 04/03/2018 PPPS, SUBSEQ VISIT CPT- 4: G0439 10/31/2017 PRESCRIP TRANSMIT VIA ERX SY CPT-4: G8553 09/22/2017 THER/PROPH/DIAG INJ SC/IM CPT-4: 18802 01/21/2017 TRIAMCINOLONE ACET INJ NOS CPT-4: J3301 01/21/2017 THER/PROPH/DIAG INJ SC/IM CPT-4: 76503 12/30/2016 ROCEPHIN, PER 250 MG CPT- 4: J0696 12/30/2016 PPPS, SUBSEQ VISIT CPT- 4: G0439 10/25/2016 ROCEPHIN, PER 250 MG CPT- 4: J0696 06/24/2016 THER/PROPH/DIAG INJ SC/IM CPT-4: 32401 06/24/2016 Vital Signs Date Vital 12/31/2018 Blood Pressure 1: 140/80 Code: 8480-6 BMI: 29.0 Code: 22408-6 Heart Rate 1: 86 bpm Height: 5'8" SpO2: 97% Weight: 191 lbs 12/23/2018 Blood Pressure 1: 140/68 Code: 8480-6 BMI: 29.3 Code: 48995-3 Heart Rate 1: 70 bpm Height: 5'8" SpO2: 97% Weight: 193 lbs 04/03/2018 Blood Pressure 1: 128/72 Code: 8480-6 BMI: 29.8 Code: 62848-4 Heart Rate 1: 60 bpm Height: 5'8" SpO2: 96% Weight: 196 lbs 03/31/2018 Blood Pressure 1: 128/76 Code: 8480-6 BMI: 29.8 Code: 57970-3 Heart Rate 1: 56 bpm Height: 5'8" SpO2: 98% Weight: 196 lbs 11/26/2017 Blood Pressure 1: 156/76 Code: 8480-6 BMI: 29.6 Code: 99356-1 Heart Rate 1: 57 bpm Height: 5'8" SpO2: 98% Weight: 195 lbs 10/31/2017 Blood Pressure 1: 136/74 Code: 8480-6 BMI: 29.5 Code: 61665-0 Heart Rate 1: 56 bpm Height: 5'8" SpO2: 95% Waist Measure (cm): 91 cm Weight: 194 lbs 10/07/2017 Blood Pressure 1: 136/72 Code: 8480-6 BMI: 30.3 Code: 85625-0 Heart Rate 1: 58 bpm Height: 5'8" SpO2: 96% Weight: 199 lbs 09/22/2017 Blood Pressure 1: 138/78 Code: 8480-6 BMI: 30.4 Code: 94532-0 Heart Rate 1: 60 bpm Height: 5'8" SpO2: 98% Temperature: 36.6 (C) / 97.9 (F) Weight: 200 lbs 05/08/2017 Blood Pressure 1: 128/80 Code: 8480-6 BMI: 30.0 Code: 63260-7 Heart Rate 1: 75 bpm Height: 5'8" SpO2: 98% Weight: 197 lbs 03/25/2017 Blood Pressure 1: 150/80 Code: 8480-6 BMI: 30.1 Code: 61827-7 Heart Rate 1: 53 bpm Height: 5'8" SpO2: 98% Weight: 198 lbs 01/21/2017 Blood Pressure 1: 156/88 Code: 8480-6 BMI: 29.8 Code: 40515-0 Heart Rate 1: 95 bpm Height: 5'8" SpO2: 98% Temperature: 36.9 (C) / 98.4 (F) Weight: 196 lbs 12/30/2016 Blood Pressure 1: 122/74 Code: 8480-6 BMI: 29.8 Code: 88926-5 Heart Rate 1: 60 bpm Height: 5'8" SpO2: 96% Temperature: 37.1 (C) / 98.8 (F) Weight: 196 lbs 12/26/2016 Blood Pressure 1: 142/74 Code: 8480-6 BMI: 29.8 Code: 43337-8 Heart Rate 1: 58 bpm Height: 5'8" SpO2: 96% Temperature: 36.7 (C) / 98.0 (F) Weight: 196 lbs 12/02/2016 Blood Pressure 1: 128/78 Code: 8480-6 BMI: 30.3 Code: 19206-6 Heart Rate 1: 49 bpm Height: 5'8" SpO2: 98% Temperature: 36.5 (C) / 97.7 (F) Weight: 199 lbs 11/21/2016 Blood Pressure 1: 130/68 Code: 8480-6 BMI: 30.3 Code: 66901-9 Heart Rate 1: 54 bpm Height: 5'8" SpO2: 98% Weight: 199 lbs 10/25/2016 Blood Pressure 1: 150/92 Code: 8480-6 BMI: 29.8 Code: 35733-3 Heart Rate 1: 54 bpm Height: 5'8" SpO2: 97% Waist Measure (cm): 97 cm Weight: 196 lbs 10/23/2016 Blood Pressure 1: 150/92 Code: 8480-6 BMI: 29.9 Code: 44409-8 Heart Rate 1: 54 bpm Height: 5'8" SpO2: 98% Weight: 196 lbs 8 oz 07/29/2016 Blood Pressure 1: 144/72 Code: 8480-6 BMI: 30.3 Code: 97428-0 Heart Rate 1: 54 bpm Height: 5'8" SpO2: 98% Weight: 199 lbs 06/24/2016 Blood Pressure 1: 132/78 Code: 8480-6 BMI: 29.5 Code: 75198-5 Heart Rate 1: 59 bpm Height: 5'8" SpO2: 94% Weight: 194 lbs 02/21/2016 Blood Pressure 1: 138/84 Code: 8480-6 BMI: 30.3 Code: 55565-4 Heart Rate 1: 64 bpm Height: 5'8" SpO2: 95% Weight: 199 lbs 10/18/2015 Blood Pressure 1: 154/84 Code: 8480-6 Blood Pressure 1: 138/72 Code: 8480-6 BMI: 30.4 Code: 06730-4 Heart Rate 1: 68 bpm Height: 5'8" SpO2: 97% Weight: 200 lbs 05/02/2015 Blood Pressure 1: 114/64 Code: 8480-6 BMI: 29.0 Code: 64161-5 Heart Rate 1: 62 bpm Height: 5'8" [...] data Encounters Encounter Performer Location Codes Date 52814 EST. PATIENT, LEVEL III Diagnosis: Diverticulitis of small intestine with perforation and abscess without bleeding[ICD10: K57.00] Gabrielle Husain MD, [facility] CPT-4: 63040 12/23/2018 ([id number]) 34621 EST. PATIENT, LEVEL III Diagnosis: Low back pain[ICD10: M54.5] Diagnosis: Muscle spasm of back[ICD10: M62.830] Leidy Husain MD, [facility] CPT-4: 64513 03/31/2018 ([id number]) 33589 EST. PATIENT, LEVEL III Diagnosis: Actinic keratosis[ICD10: L57.0] Diagnosis: Other hypertrophic disorders of the skin[ICD10: L91.8] Amanda Husain MD, [facility] CPT-4: 94549 11/26/2017 ([id number]) 30202 EST. PATIENT, LEVEL IV Diagnosis: Essential (primary) hypertension[ICD10: I10] Diagnosis: Mild cognitive impairment, so stated[ICD10: G31.84] Amanda Husain MD, [facility] CPT-4: 97923 10/07/2017 ([id number]) 77299 EST. PATIENT, LEVEL III Diagnosis: Pneumonia due to other streptococci[ICD10: J15.4] Diagnosis: Cough[ICD10: R05] Amanda Husain MD, [facility] CPT-4: 62825 09/22/2017 28539 EST. PATIENT, LEVEL IV Diagnosis: Left lower quadrant pain[ICD10: R10.32] Diagnosis: Other fatigue[ICD10: R53.83] [facility] CPT-4: 42255 05/08/2017 ([id number]) 17617 EST. PATIENT, LEVEL III Diagnosis: Essential (primary) hypertension[ICD10: I10] Amanda Husain MD [facility] CPT-4: 93020 03/25/2017 ([id number]) 66822 EST. PATIENT, LEVEL III Diagnosis: Cough[ICD10: R05] Diagnosis: Allergic rhinitis due to pollen[ICD10: J30.1] Leidy Husain MD [facility] CPT-4: 47256 01/21/2017 [id number] EST. PATIENT, LEVEL III Diagnosis: Other allergic rhinitis[ICD10: J30.89] Diagnosis: Cough[ICD10: R05] Gabrielle Husain MD [facility] CPT-4: 46602 12/30/2016 ([id number]) 19016 EST. PATIENT, LEVEL III Diagnosis: Cough[ICD10: R05] Diagnosis: Pneumonia, unspecified organism[ICD10: J18.9] Leidy Husain MD [facility] CPT-4: 77945 12/26/2016 ([id number]) 31963 EST. PATIENT, LEVEL III Diagnosis: Pneumonia due to other streptococci[ICD10: J15.4] Diagnosis: Cough[ICD10: R05] Amanda Husain MD [facility] CPT-4: 95742 12/02/2016 ([id number]) 29082 EST. PATIENT, LEVEL III Diagnosis: Essential (primary) hypertension[ICD10: I10] Amanda Husain MD [facility] CPT-4: 43312 11/21/2016 ([id number]) 68428 EST. PATIENT, LEVEL IV Diagnosis: Essential (primary) hypertension[ICD10: I10] Diagnosis: Mixed hyperlipidemia[ICD10: E78.2] Amanda Husain MD [facility] CPT- 4: 86908 10/23/2016 01837 EST. PATIENT, LEVEL IV Diagnosis: Other allergic rhinitis[ICD10: J30.89] Diagnosis: Cough[ICD10: R05] Gabrielle Husain MD [facility] CPT-4: 41050 07/29/2016 ([id number]) Miscellaneous no charge Diagnosis: Pneumonia, unspecified organism[ICD10: J18.9] Gabrielle Husain MD, [facility] CPT-4: 07899 06/27/2016 ([id number]) 71214 EST. PATIENT, LEVEL IV Diagnosis: Essential (primary) hypertension[ICD10: I10] Diagnosis: Pneumonia, unspecified organism[ICD10: J18.9] Diagnosis: Cough[ICD10: R05] Diagnosis: Mixed hyperlipidemia[ICD10: E78.2] Amanda Husain MD, [facility] CPT- 4: 97240 06/24/2016 ([id number]) 67017 EST. PATIENT, LEVEL IV Diagnosis: Mixed hyperlipidemia[ICD10: E78.2] Diagnosis: Essential (primary) hypertension[ICD10: I10] Diagnosis: Gastro-esophageal reflux disease without esophagitis[ICD10: K21.9] Amanda Husain MD, [facility] CPT-4: 68776 02/21/2016 ([id number]) 37064 EST. PATIENT, LEVEL IV Diagnosis: Essential (primary) hypertension[ICD10: I10] Diagnosis: Mixed hyperlipidemia[ICD10: E78.2] Diagnosis: Chronic lymphocytic 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[ICD10: C91.10] Amanda Husain MD, [facility] CPT-4: 50567 10/18/2015 ([id number]) OFFICE VISIT, NEW - LEVEL 3 Diagnosis: Diverticulitis[ICD9: 562.11] Amanda Husain MD, [facility] CPT-4: 33425 05/02/2015 Plan of Care Planned Activity Notes Codes Status Date Visit Plan: Actinic Keratosis - treated with cryotherapy x 3, pt advised on how to appropriately care for the lesion. Call if not improved after thorough healing - apply neosporin to skin lesions. 12/31/2018 Appointment: Amanda Husain WPtel: [address] [place], [place] [phone] (30 min) [facility] 12/31/2018 Patient Education: Patient Medication Summary Completed 12/31/2018 Visit Plan: Diverticulitis - rx for antibiotic sent to pt's pharmacy - pt advised to avoid seeds, nuts, popcorn, or any other food which has been proven to upset the pt's stomach. 12/23/2018 Appointment: Gabrielle Corona WPtel: [facility] (15 min) Moderate 12/23/2018 Patient Education: Patient Medication Summary Completed 12/23/2018 Appointment: Gabrielle Corona WPtel: [facility] (30 min) Complex 12/16/2018 Appointment: Lab Draw [...] not improve. 03/31/2018 Appointment: Leidy Angulo WPtel: [phone] (15 min) Moderate 03/31/2018 Patient Education: Patient Medication Summary Completed 03/31/2018 Visit Plan: Wound Instructions - Pt was instructed to keep the wound clean, wash with antibacterial soap, use triple antibiotic ointment, call if redness, pustular drainage, or any other acute concerns. 11/26/2017 Appointment: Amanda Husain WPtel: [address] [place], [place] [phone] Surgical Procedure 11/26/2017 Patient Education: Patient Medication [...] surrogate. 10/31/2017 App[facility]ment: [facility]ulo [phone] [facility] - Annual Wellness Visit 10/31/2017 Patient Education: [...] memory loss. 10/07/2017 Appointment: [facility]el[facility] ([facility] min) Complex 10/07/2017 Patient Education: Patient Medication Summary Completed 10/07/2017 Patient Education: Obesity Completed 10/07/2017 Patient Education: Hypertension Completed 10/07/2017 Visit Plan: Pneumonia - Pt has been diagnosed with pneumonia by physical exam. Antibiotics have been ordered. The pt is aware of the diagnosis and the need for acute treatment of this illness. 09/22/2017 App[facility]ment: [phone] [facility] (15 min) Moderate 09/22/2017 Patient Education: [...] or concerns. 05/08/2017 Appointment: Gabrielle Corona WPtel: [facility] (30 min) Complex 05/08/2017 Patient Education: [...] 10mg daily. 03/25/2017 Appointment: Amanda Husain WPtel: [phone] (15 min) Moderate 03/25/2017 Patient Education: Patient Medication Summary Completed 03/25/2017 Appointment: Leidy Angulo WPtel: [phone] [place] (15 min) Moderate 01/31/2017 Visit Plan: URI/Allergies - Pt advised to increase fluids, vitamin C. Discussed natural and expected course of this diagnosis and need to alert me if symptoms do not follow expected course, or if any worse. RX sent to patient's pharmacy. 01/21/2017 Appointment: Leidy Angulo WPtel: [phone] [place] (15 min) Moderate 01/21/2017 Patient [...] the medication. 12/30/2016 Appointment: Leidy Angulo WPtel: [facility] [place] [phone] (15 min) Moderate 12/30/2016 Appointment: Gabrielle Corona WPtel: [facility] [place] [phone] [place] (30 min) Complex 12/30/2016 Patient Education: [...] the levaquin. 12/26/2016 Appointment: Leidy Angulo WPtel: [address] [place] [address] (15 min) Moderate 12/26/2016 Patient Education: Patient [...] home. 11/21/2016 Appointment: [phone] [facility] (15 min) Moderate 11/21/2016 Patient Education: [...] care surrogate. 10/25/2016 Appointment: [facility]ulo [facility]el[phone] [facility] - Annual Wellness Visit 10/25/2016 Patient [...] medications. 10/23/2016 Appointment: [phone] [facility] (15 min) Moderate 10/23/2016 Patient Education: [...] any concerns. 07/29/2016 Appointment: Gabrielle Corona WPtel: [address] [place] [address] (15 min) Moderate 07/29/2016 Patient Education: Patient [...] to medications. 06/24/2016 Appointment: [phone] [facility] (15 min) Moderate 06/24/2016 Patient Education: [...] not improving. 02/21/2016 Appointment: [facility]el[phone] [facility] (15 min) Moderate 02/21/2016 Patient Education: [...] Care Plan: COMPLETE CBC AUTOMATED LOINC : 80089-1 Ordered 05/02/2015 Care Plan: ASSAY OF TROPONIN QUANT Ordered 05/02/2015 Care Plan: ASSAY OF CK (CPK) Ordered 05/02/2015 Instructions Comment . Hypertension - well controlled - continue [...] office if the symptoms are not improving. zyrtec - daily for allergies If in [...] in blood pressure readings at home. . Low back pain- recommend rest, tiger [...] assure normal liver response to medications. . Medicare Exam - today we discussed [...] healing - apply neosporin to skin lesions. [facility] - take three times daily x 7 [...] - he is tolerating treatments well. . Wound Instructions - Pt was instructed to keep the wound clean, wash with antibacterial soap, use triple antibiotic ointment, call if redness, pustular drainage, or any other acute concerns.
--- OUTSIDE RECORDS SUMMARY | 2019-05-19 10:58 | XMS REPORT | CCD ---
Author Author Amanda Celestin MD, [facility] Address [address] [place] [address] Phone Care Team Providers Care Lap Welder Name Role Phone PP Unavailable CCM Unavailable Summary Purpose Interface Exchange Insurance Providers Payer name Policy type / Coverage type Covered republican ID Effective Begin Date Effective End Date WPS Medicare Part B [id number] Unknown [employer] Insurance [id number] Unknown Family history Brother Diagnosis Age At [...] Unknown Retired 05/02/[address]: 9692237 Former smoker Quit in 1966 05/02/2015 Number of years using tobacco Unknown 5 - 05/02/2015 Allergies, Adverse Reactions, Alerts Substance Reaction [...] Instructions Zithromax Z-Carlo 250 mg tablet RxNorm: 838529 2 Tablet(s) PO on 1 st day then 1 daily x 4 days ZPACK X 1 01/15/2019 No Stop Date Active metronidazole 500 mg tablet RxNorm: 312495 1 Tablet(s) PO TID 12/23/2018 01/01/2019 Inactive omeprazole 20 mg capsule,delayed release RxNorm: 721968 TAKE 1 CAPSULE BY MOUTH ONCE DAILY 12/07/2018 No Stop Date Active metoprolol tartrate 25 mg tablet RxNorm: 075495 Tablet(s) TAKE 1 TABLET BY MOUTH TWICE DAILY 10/16/2018 No Stop Date Active metoprolol tartrate 25 mg tablet RxNorm: 835170 TAKE 1 TABLET BY MOUTH TWICE DAILY 07/13/2018 10/15/2018 Inactive Trilipix 135 mg capsule,delayed release RxNorm: 684351 1 Capsule(s) PO daily 06/17/2018 10/14/2018 Inactive ramipril 10 mg capsule RxNorm: 223839 TAKE ONE CAPSULE BY MOUTH ONCE DAILY 06/15/2018 No Stop Date Active omeprazole 20 mg capsule,delayed release RxNorm: 857522 Capsule(s) TAKE ONE CAPSULE BY MOUTH ONCE DAILY 06/03/2018 No Stop Date Active omeprazole 20 mg capsule,delayed release RxNorm: 628230 Capsule(s) TAKE ONE CAPSULE BY MOUTH ONCE DAILY 06/02/2018 06/02/2018 Inactive metoprolol tartrate 25 mg tablet RxNorm: 976991 TAKE ONE TABLET BY MOUTH TWICE DAILY 02/16/2018 07/12/2018 Inactive omeprazole 20 mg capsule,delayed release RxNorm: 679600 TAKE ONE CAPSULE BY MOUTH ONCE DAILY 01/05/2018 06/01/2018 Inactive metoprolol tartrate 25 mg tablet RxNorm: 952393 TAKE ONE TABLET BY MOUTH TWICE DAILY 10/27/2017 02/15/2018 Inactive azithromycin 250 mg tablet RxNorm: 643001 1 Tablet(s) PO UD 2 tabs on day #1, then 1 pill daily x 4 days 09/22/2017 11/25/2017 Inactive omeprazole 20 mg capsule,delayed release RxNorm: 340154 TAKE ONE CAPSULE BY MOUTH ONCE DAILY 06/16/2017 12/12/2017 Inactive metronidazole 500 mg tablet RxNorm: 086276 1 Tablet(s) PO TID 05/08/2017 05/14/2017 Inactive ramipril 10 mg capsule RxNorm: 174188 1 Capsule(s) PO daily 03/25/2017 03/19/2018 Inactive Kenalog 40 mg/mL suspension for injection RxNorm: 9118566 Milliliter(s) Inj 01/21/2017 01/21/2017 Inactive ceftriaxone 500 mg solution for injection RxNorm: 7103511 Inj 12/30/2016 12/30/2016 Inactive Phenergan with Codeine Syrup RxNorm: 5-10 Milliliter(s) PO Q6 PRN 12/26/2016 No Stop Date Active Levaquin 500 mg tablet RxNorm: 911531 1 Tablet(s) PO daily 12/26/2016 01/01/2017 Inactive Tessalon Perles 100 mg capsule RxNorm: 918313 1 Capsule(s) PO TID as needed 12/26/2016 01/04/2017 Inactive prednisone 20 mg tablet RxNorm: 536648 1 Tablet(s) PO BID 12/26/2016 12/30/2016 Inactive omeprazole 20 mg capsule,delayed release RxNorm: 766740 TAKE ONE CAPSULE BY MOUTH ONCE DAILY 12/16/2016 06/13/2017 Inactive cefdinir 300 mg capsule RxNorm: 686199 1 Capsule(s) PO BID 12/02/2016 12/08/2016 Inactive azithromycin 250 mg tablet RxNorm: 445179 Tablet(s) 2 tabs on day #1, then one tab PO daily x 4 more days 12/02/2016 12/25/2016 Inactive metoprolol tartrate 25 mg tablet RxNorm: 321889 1 Tablet(s) PO BID 10/23/2016 10/17/2017 Inactive metoprolol tartrate 25 mg tablet RxNorm: 583560 1 Tablet(s) PO BID 10/23/2016 10/22/2016 Inactive ceftriaxone 500 mg solution for injection RxNorm: 7049944 Inj 06/24/2016 06/24/2016 Inactive cefdinir 300 mg capsule RxNorm: 644870 1 Capsule(s) PO BID 06/24/2016 06/30/2016 Inactive omeprazole 20 mg capsule,delayed release RxNorm: 623730 TAKE ONE CAPSULE BY MOUTH DAILY 06/07/2016 12/03/2016 Inactive omeprazole 20 mg capsule,delayed release RxNorm: 462581 TAKE ONE CAPSULE BY MOUTH DAILY 01/29/2016 05/27/2016 Inactive metoprolol tartrate 50 mg tablet RxNorm: 806391 Tablet(s) TAKE ONE TABLET BY MOUTH DAILY 10/11/2015 10/10/2015 Inactive metoprolol tartrate 50 mg tablet RxNorm: 329581 TAKE ONE TABLET BY MOUTH DAILY 10/11/2015 10/22/2016 Inactive omeprazole 20 mg capsule,delayed release RxNorm: 920180 TAKE ONE CAPSULE BY MOUTH DAILY 08/28/2015 01/24/2016 Inactive metoprolol tartrate 50 mg tablet RxNorm: 197324 TAKE ONE TABLET BY MOUTH DAILY 08/11/2015 10/09/2015 Inactive metoprolol tartrate 50 mg tablet RxNorm: 076830 1 Tablet(s) PO daily 06/14/2015 08/10/2015 Inactive omeprazole 20 mg capsule,delayed release RxNorm: 457279 1 Capsule(s) PO daily 05/29/2015 08/26/2015 Inactive omeprazole 20 mg capsule,delayed release RxNorm: 981417 1 Capsule(s) PO daily 05/29/2015 05/28/2015 Inactive metronidazole 500 mg tablet RxNorm: 931659 1 Tablet(s) PO TID 05/02/2015 05/08/2015 Inactive finasteride 5 mg tablet RxNorm: 625094 1 Tablet(s) PO daily No Start Date Active warfarin 5 mg tablet RxNorm: 041031 1 Tablet(s) PO daily No Start Date Active Aspirin Childrens 81 mg chewable tablet RxNorm: 538253 1 Tablet(s) PO daily No Start Date Active amiodarone 200 mg tablet RxNorm: 196300 1 Tablet(s) PO daily No Start Date Active vitamin E (dl, acetate) 1,000 unit capsule RxNorm: 897901 1 Capsule(s) PO daily No Start Date Active atorvastatin 80 mg tablet RxNorm: 680090 1 Tablet(s) PO daily No Start Date Active Fish Oil 120 mg-180 mg capsule RxNorm: 619593 1 Capsule(s) PO BID No Start Date 10/30/2017 Inactive metoprolol tartrate 50 mg tablet RxNorm: 402117 1 Tablet(s) PO daily No Start Date 06/13/2015 Inactive Zetia 10 mg tablet RxNorm: 450672 1 Tablet(s) PO daily No Start Date 10/17/2015 Inactive ramipril 5 mg capsule RxNorm: 011435 1 Capsule(s) PO daily No Start Date 03/24/2017 Inactive Tessalon Perles 100 mg capsule RxNorm: 031558 1 Capsule(s) PO TID as needed No Start Date 12/25/2016 Inactive omeprazole 20 mg capsule,delayed release RxNorm: 765151 1 Capsule(s) PO daily No Start Date 05/28/2015 Inactive Zithromax Z-Carlo 250 mg tablet RxNorm: 443224 2 Tablet(s) PO on 1 st day then 1 daily x 4 days ZPACK X 1 No Start Date 01/14/2019 Inactive Trilipix 135 mg capsule,delayed release RxNorm: 033445 1 Capsule(s) PO daily No Start Date 06/16/2018 Inactive Centrum Silver tablet RxNorm: 1 Tablet(s) PO daily No Start Date 10/30/2017 Inactive Medication Administered Medication Codes Instructions Start Date Status Kenalog 40 mg/mL suspension for injection RxNorm: 8410812 Milliliter 01/21/2017 No longer Active ceftriaxone 500 mg solution for injection RxNorm: 1190339 12/30/2016 No longer Active ceftriaxone 500 mg solution for injection RxNorm: 5412644 06/24/2016 No longer Active Immunizations Vaccine Codes [...] Code Item Item Code Result Date Pt Jff4990 PT 27.9 seconds 02/24/2019 Pt Gnf5063 INR 2.7 02/24/2019 Pt Ioe0078 Low Intensity - 1.5-2.0 02/24/2019 Pt Yjy3858 Mod intensity - 2.0-3.0 02/24/2019 Pt Gua0081 Hi intensity - 3.0-4.0 02/24/2019 Pt Kcx4025 PT 16.6 seconds 02/15/2019 Pt Pnj8000 INR 1.4 02/15/2019 Pt Rhq9548 Low Intensity - 1.5-2.0 02/15/2019 Pt Boh6645 Mod intensity - 2.0-3.0 02/15/2019 Pt Bny5594 Hi intensity - 3.0-4.0 02/15/2019 Pt Luh5792 PT 16.6 seconds 02/05/2019 Pt Coi7692 INR 1.4 02/05/2019 Pt Foo6537 Low Intensity - 1.5-2.0 02/05/2019 Pt Ejr5658 Mod intensity - 2.0-3.0 02/05/2019 Pt Ace0067 Hi intensity - 3.0-4.0 02/05/2019 Pt Mcd4049 PT 39.6 seconds 02/01/2019 Pt Uda6513 INR 4.1 02/01/2019 Pt Kbn2068 Low Intensity - 1.5-2.0 02/01/2019 Pt Hvr7377 Mod intensity - 2.0-3.0 02/01/2019 Pt Tdn6332 Hi intensity - 3.0-4.0 02/01/2019 Pt Vwm7899 PT 31.9 seconds 01/20/2019 Pt Fcl6229 INR 3.1 01/20/2019 Pt Gik3019 Low Intensity - 1.5-2.0 01/20/2019 Pt Njt1536 Mod intensity - 2.0-3.0 01/20/2019 Pt Cij4826 Hi intensity - 3.0-4.0 01/20/2019 Pt Sxn0827 PT 21.0 seconds 01/12/2019 Pt Xan1554 INR 1.9 01/12/2019 Pt Nwa5866 Low Intensity - 1.5-2.0 01/12/2019 Pt Viz6294 Mod intensity - 2.0-3.0 01/12/2019 Pt Sxz1343 Hi intensity - 3.0-4.0 01/12/2019 Pt Iof4869 PT 31.8 seconds 01/07/2019 Pt Sga8028 INR 3.1 01/07/2019 Pt Nhj6455 Low Intensity - 1.5-2.0 01/07/2019 Pt Cvb8254 Mod intensity - 2.0-3.0 01/07/2019 Pt Cts5758 Hi intensity - 3.0-4.0 01/07/2019 Pt Ahx1085 PT 48.2 seconds 01/05/2019 Pt Ged7909 INR 5.2 01/05/2019 Pt Phj3223 Low Intensity - 1.5-2.0 01/05/2019 Pt Hqn1756 Mod intensity - 2.0-3.0 01/05/2019 Pt Mcj4959 Hi intensity - 3.0-4.0 01/05/2019 Pt Zmw9434 PT 17.6 seconds 12/25/2018 Pt Wqc2974 INR 1.5 12/25/2018 Pt Oar1585 Low Intensity - 1.5-2.0 12/25/2018 Pt Igt0871 Mod intensity - 2.0-3.0 12/25/2018 Pt Wzo8927 Hi intensity - 3.0-4.0 12/25/2018 Cbc With [...] 30.0 pg 12/10/2018 Cbc With Differential Ord2 Mcmullen% 10.5 % 12/10/2018 Cbc With Differential Ord2 [...] 2.09 K/ul 12/10/2018 Cbc With Differential Ord2 Mcmullen ABS# 0.8 K/ul 12/10/2018 Cbc With Differential Ord2 Eos ABS# 0.4 K/ul 12/10/2018 Cbc With Differential Ord2 Baso ABS# 0.0 K/ul 12/10/2018 Uric Acid Ord77 Uric A 4.6 mg/dL 12/10/2018 Random Urine Protein/Creatinine Ratio Hyj9519 U Prot 9.0 mg/dl 12/10/2018 Random Urine Protein/Creatinine Ratio Uyj1435 U CREAT 126.0 mg/dL 12/10/2018 Random Urine Protein/Creatinine Ratio Fio5043 R MTP/Creat Ratio 0.07 12/10/2018 Ferritin Ord22 FERRITIN 47.9 ng/mL 12/10/2018 Renal Kwt196 NA 142 mEq/L 12/10/2018 Renal Alg370 K 4.3 mEq/L 12/10/2018 Renal Tcd546 CL 106 mEq/L 12/10/2018 Renal Xab164 CO2 30.0 mEq/L 12/10/2018 Renal Uqg046 ANION GAP 10 12/10/2018 Renal Pjk096 Osmo 286 mOsmo 12/10/2018 Renal Blm717 GLUCOSE 105 mg/dL 12/10/2018 Renal Mhn219 BUN 20 mg/dL 12/10/2018 Renal Alp196 Creat 1.4 mg/dL 12/10/2018 Renal Zrj094 eGFR 52 ml/min/1.73m2 12/10/2018 Renal Hmy928 B/C Ratio 14.1 Ratio 12/10/2018 Renal Fpl251 CALCIUM 9.7 mg/dL 12/10/2018 Renal Pjo027 PHOS 3.3 mg/dL 12/10/2018 Renal Zrb052 ALBUMIN 4.0 g/dL 12/10/2018 Urinalysis Ord28 U-Color [...] 17.8 % 12/10/2018 Vitamin D 25 Oh Lps8016 VITAMIN D, 25 HYDROXY 27.29 ng/mL 12/10/2018 Pt Vfb7662 PT 23.1 seconds 11/05/2018 Pt Pkh4134 INR 2.1 11/05/2018 Pt Jnw3302 Low Intensity - 1.5-2.0 11/05/2018 Pt Ewh2703 Mod intensity - 2.0-3.0 11/05/2018 Pt Mwv3660 Hi intensity - 3.0-4.0 11/05/2018 Pt Fvp1244 PT 29.8 seconds 08/17/2018 Pt Tzz2772 INR 2.8 08/17/2018 Pt Xpx4490 Low Intensity - 1.5-2.0 08/17/2018 Pt Hze6230 Mod intensity - 2.0-3.0 08/17/2018 Pt Edx9414 Hi intensity - 3.0-4.0 08/17/2018 Pt Tjx4233 PT 27.7 seconds 05/18/2018 Pt Yht1878 INR 2.6 05/18/2018 Pt Mjc1814 Low Intensity - 1.5-2.0 05/18/2018 Pt Lxc3914 Mod intensity - 2.0-3.0 05/18/2018 Pt Ywc5485 Hi intensity - 3.0-4.0 05/18/2018 Uric Acid [...] 30.9 pg 05/18/2018 Cbc With Differential Ord2 Mcmullen% 13.8 % 05/18/2018 Cbc With Differential Ord2 [...] 1.94 K/ul 05/18/2018 Cbc With Differential Ord2 Mcmullen ABS# 0.9 K/ul 05/18/2018 Cbc With Differential Ord2 Eos ABS# 0.4 K/ul 05/18/2018 Cbc With Differential Ord2 Baso ABS# 0.0 K/ul 05/18/2018 Random Urine Protein/Creatinine Ratio Zeu2502 U Prot 7.0 mg/dl 05/18/2018 Random Urine Protein/Creatinine Ratio Lfx7278 U CREAT 75.0 mg/dL 05/18/2018 Random Urine Protein/Creatinine Ratio Nsk6829 R MTP/Creat Ratio 0.09 05/18/2018 Vitamin D 25 Oh Udj8634 VITAMIN D, 25 HYDROXY 27.40 ng/mL 05/18/2018 Tibc Ord40 Iron 68 ug/dl 05/18/2018 Tibc Ord40 UIBC 308 ug/dL 05/18/2018 Tibc Ord40 TIBC 376 ug/dL 05/18/2018 Tibc Ord40 Fe-%Sat 18.1 % 05/18/2018 Parathyroid Hormone Rkw378 PTH 36.20 pg/ml 05/18/2018 Urinalysis Ord28 U-Color [...] hours from collection if refrigerated) 05/18/2018 Renal Lbl804 NA 141 mEq/L 05/18/2018 Renal Set523 K 4.0 mEq/L 05/18/2018 Renal Ffb168 CL 107 mEq/L 05/18/2018 Renal Kez244 CO2 27.0 mEq/L 05/18/2018 Renal Wce460 ANION GAP 11 05/18/2018 Renal Wzd483 Osmo 282 mOsmo 05/18/2018 Renal Hpl406 GLUCOSE 83 mg/dL 05/18/2018 Renal Uso668 BUN 18 mg/dL 05/18/2018 Renal Cpv869 Creat 1.4 mg/dL 05/18/2018 Renal Hdy873 eGFR 55 ml/min/1.73m2 05/18/2018 Renal Ikj867 B/C Ratio 13.3 Ratio 05/18/2018 Renal Kii885 CALCIUM 9.0 mg/dL 05/18/2018 Renal Tpr735 PHOS 2.9 mg/dL 05/18/2018 Renal Crp548 ALBUMIN 4.0 g/dL 05/18/2018 Ferritin Ord22 FERRITIN [...] Metabolic Ord15 CALCIUM 9.2 mg/dL 03/23/2018 Pt Bos7229 PT 29.0 seconds 03/13/2018 Pt Idl2010 INR 2.7 03/13/2018 Pt Zfg0909 Low Intensity - 1.5-2.0 03/13/2018 Pt Jxz6039 Mod intensity - 2.0-3.0 03/13/2018 Pt Qns1024 Hi intensity - 3.0-4.0 03/13/2018 Pt Cih6456 PT 31.6 seconds 03/04/2018 Pt Ldb7935 INR 3.0 03/04/2018 Pt Fpn5264 Low Intensity - 1.5-2.0 03/04/2018 Pt Son5326 Mod intensity - 2.0-3.0 03/04/2018 Pt Gny4725 Hi intensity - 3.0-4.0 03/04/2018 Pt Amo7595 PT 33.3 seconds 01/29/2018 Pt Ydm5052 INR 3.2 01/29/2018 Pt Vow9777 Low Intensity - 1.5-2.0 01/29/2018 Pt Mbl9206 Mod intensity - 2.0-3.0 01/29/2018 Pt Iqe1248 Hi intensity - 3.0-4.0 01/29/2018 Pt Nsy9963 PT 26.1 seconds 01/21/2018 Pt Uti0030 INR 2.4 01/21/2018 Pt Kyr3125 Low Intensity - 1.5-2.0 01/21/2018 Pt Pan9673 Mod intensity - 2.0-3.0 01/21/2018 Pt Ebs2314 Hi intensity - 3.0-4.0 01/21/2018 Pt Nxw3187 PT 35.7 seconds 01/09/2018 Pt Ney5304 INR 3.5 01/09/2018 Pt Lms6242 Low Intensity - 1.5-2.0 01/09/2018 Pt Vud5926 Mod intensity - 2.0-3.0 01/09/2018 Pt Doo8347 Hi intensity - 3.0-4.0 01/09/2018 Pt Twg8975 PT 23.8 seconds 12/04/2017 Pt Lmn9728 INR 2.1 12/04/2017 Pt Knl8464 Low Intensity - 1.5-2.0 12/04/2017 Pt Rhp6569 Mod intensity - 2.0-3.0 12/04/2017 Pt Kdy5310 Hi intensity - 3.0-4.0 12/04/2017 Pt Mui2206 PT 32.3 seconds 11/12/2017 Pt Zoi5059 INR 3.1 11/12/2017 Pt Vfe6179 Low Intensity - 1.5-2.0 11/12/2017 Pt Uby4903 Mod intensity - 2.0-3.0 11/12/2017 Pt Oma1278 Hi intensity - 3.0-4.0 11/12/2017 Urinalysis Ord28 [...] hours from collection if refrigerated) 10/20/2017 Pt Fyu4573 PT 16.6 seconds 10/20/2017 Pt Vlq5597 INR 1.4 10/20/2017 Pt Dud6610 Low Intensity - 1.5-2.0 10/20/2017 Pt San0948 Mod intensity - 2.0-3.0 10/20/2017 Pt Dox4570 Hi intensity - 3.0-4.0 10/20/2017 Renal Efl869 NA 142 mEq/L 10/20/2017 Renal Czy880 K 4.5 mEq/L 10/20/2017 Renal Kne386 CL 107 mEq/L 10/20/2017 Renal Olv204 CO2 28.0 mEq/L 10/20/2017 Renal Qwi862 ANION GAP 12 10/20/2017 Renal Fts620 Osmo 288 mOsmo 10/20/2017 Renal Pph643 GLUCOSE 96 mg/dL 10/20/2017 Renal Oyo125 BUN 27 mg/dL 10/20/2017 Renal Hwc126 Creat 1.6 mg/dL 10/20/2017 Renal Lnq353 eGFR 46 ml/min/1.73m2 10/20/2017 Renal Vsk294 B/C Ratio 17.2 Ratio 10/20/2017 Renal Vzl032 CALCIUM 9.4 mg/dL 10/20/2017 Renal Ljl991 PHOS 3.0 mg/dL 10/20/2017 Renal Efn288 ALBUMIN 4.2 g/dL 10/20/2017 Pt Imp1421 PT 31.2 seconds 10/17/2017 Pt Daz2035 INR 3.0 10/17/2017 Pt Bqn7328 Low Intensity - 1.5-2.0 10/17/2017 Pt Zac0121 Mod intensity - 2.0-3.0 10/17/2017 Pt Iqb7715 Hi intensity - 3.0-4.0 10/17/2017 Comp Metabolic Atm970 NA 139 mEq/L 05/08/2017 Comp Metabolic Voa953 K 4.1 mEq/L 05/08/2017 Comp Metabolic Owa205 CL 103 mEq/L 05/08/2017 Comp Metabolic Sxs901 CO2 28.0 mEq/L 05/08/2017 Comp Metabolic Giv436 ANION GAP 12 05/08/2017 Comp Metabolic Mic910 GLUCOSE 75 mg/dL 05/08/2017 Comp Metabolic Cup024 Creat 1.3 mg/dL 05/08/2017 Comp Metabolic Dpv967 eGFR 55 ml/min/1.73m2 05/08/2017 Comp Metabolic Ygk102 BUN 20 mg/dL 05/08/2017 Comp Metabolic Dho847 B/C Ratio 14.9 Ratio 05/08/2017 Comp Metabolic Scm550 CALCIUM 8.8 mg/dL 05/08/2017 Comp Metabolic Izm780 ALK PHOS 51 U/L 05/08/2017 Comp Metabolic Jwc291 AST(SGOT) 30 U/L 05/08/2017 Comp Metabolic Uix765 ALT(SGPT) 31 U/L 05/08/2017 Comp Metabolic Bqd574 BILI T 0.9 mg/dL 05/08/2017 Comp Metabolic Lge543 ALBUMIN 4.0 g/dL 05/08/2017 Comp Metabolic Sni785 TPRO 6.5 g/dL 05/08/2017 Comp Metabolic Pla379 GLOB 2.6 g/dL 05/08/2017 Comp Metabolic Djj304 A/G Ratio 1.5 Ratio 05/08/2017 Comp Metabolic Bvq826 Osmo 279 mOsmo 05/08/2017 Cbc With Differential [...] 31.5 pg 05/08/2017 Cbc With Differential Ord2 Mcmullen% 13.5 % 05/08/2017 Cbc With Differential Ord2 [...] 1.29 K/ul 05/08/2017 Cbc With Differential Ord2 Mcmullen ABS# 1.1 K/ul 05/08/2017 Cbc With Differential Ord2 Eos ABS# 0.2 K/ul 05/08/2017 Cbc With Differential Ord2 Baso ABS# 0.0 K/ul 05/08/2017 Pt Lxl6079 PT 22.7 seconds 11/22/2016 Pt Ipc8828 INR 2.1 11/22/2016 Pt Vlw6316 Low Intensity - 1.5-2.0 11/22/2016 Pt Iew1483 Mod intensity - 2.0-3.0 11/22/2016 Pt Kom9306 Hi intensity - 3.0-4.0 11/22/2016 Pt Xym3088 PT 24.4 seconds 10/25/2016 Pt Oor8228 INR 2.3 10/25/2016 Pt Ulb5851 Low Intensity - 1.5-2.0 10/25/2016 Pt Roy8315 Mod intensity - 2.0-3.0 10/25/2016 Pt Wcf3705 Hi intensity - 3.0-4.0 10/25/2016 Pt Cxq8241 PT 23.5 seconds 09/04/2016 Pt Aei7982 INR 2.2 09/04/2016 Pt Gas3198 Low Intensity - 1.5-2.0 09/04/2016 Pt Zlw5040 Mod intensity - 2.0-3.0 09/04/2016 Pt Skj3889 Hi intensity - 3.0-4.0 09/04/2016 Pt Eko6071 PT 26.1 seconds 07/09/2016 Pt Gos1016 INR 2.6 07/09/2016 Pt Qwq4573 Low Intensity - 1.5-2.0 07/09/2016 Pt Tnv3670 Mod intensity - 2.0-3.0 07/09/2016 Pt Yqn1471 Hi intensity - 3.0-4.0 07/09/2016 Pt Xsa0895 PT 19.4 seconds 06/24/2016 Pt Uzt2277 INR 1.7 06/24/2016 Pt Amo4517 Low Intensity - 1.5-2.0 06/24/2016 Pt Smw9401 Mod intensity - 2.0-3.0 06/24/2016 Pt Smq5892 Hi intensity - 3.0-4.0 06/24/2016 Pt Bcd1551 PT 28.9 seconds 04/26/2016 Pt Egv8743 INR 2.9 04/26/2016 Pt Cui1202 Low Intensity - 1.5-2.0 04/26/2016 Pt Tdz0612 Mod intensity - 2.0-3.0 04/26/2016 Pt Mvg3649 Hi intensity - 3.0-4.0 04/26/2016 Tsh Ord6 hTSH II 1.21 uIU/mL 02/29/2016 Pt Mfh0281 PT 21.8 seconds 02/29/2016 Pt Xqq5070 INR 2.0 02/29/2016 Pt Fpz8546 Low Intensity - 1.5-2.0 02/29/2016 Pt Ctu0810 Mod intensity - 2.0-3.0 02/29/2016 Pt Pkn8898 Hi intensity - 3.0-4.0 02/29/2016 Lipid Ord30 [...] Ord2 RDW 16.2 % 06/30/2015 Comp Metabolic Jlf436 NA 138 mEq/L 06/30/2015 Comp Metabolic Gsa620 K 4.8 mEq/L 06/30/2015 Comp Metabolic Ztt653 CL 107 mEq/L 06/30/2015 Comp Metabolic Iku414 CO2 27.0 mEq/L 06/30/2015 Comp Metabolic Ueq668 ANION GAP 9 06/30/2015 Comp Metabolic Ggd828 GLUCOSE 98 mg/dL 06/30/2015 Comp Metabolic Juh317 Creat 1.8 mg/dL 06/30/2015 Comp Metabolic Inu645 eGFR 40 ml/min/1.73m2 06/30/2015 Comp Metabolic Wox412 BUN 20 mg/dL 06/30/2015 Comp Metabolic Ocq178 B/C Ratio 11.1 Ratio 06/30/2015 Comp Metabolic Fus235 CALCIUM 9.1 mg/dL 06/30/2015 Comp Metabolic Gcv005 ALK PHOS 39 U/L 06/30/2015 Comp Metabolic Dwa237 AST(SGOT) 21 U/L 06/30/2015 Comp Metabolic Ooo343 ALT(SGPT) 23 U/L 06/30/2015 Comp Metabolic Jgi589 BILI T 0.5 mg/dL 06/30/2015 Comp Metabolic Hqc851 ALBUMIN 4.0 g/dL 06/30/2015 Comp Metabolic Cop345 TPRO 6.6 g/dL 06/30/2015 Comp Metabolic Pjk568 GLOB 2.6 g/dL 06/30/2015 Comp Metabolic Bnj391 A/G Ratio 1.5 Ratio 06/30/2015 Comp Metabolic Mrc367 Osmo 278 mOsmo 06/30/2015 Pt Pno2484 PT 26.1 seconds 06/30/2015 Pt Snk1312 INR 2.5 06/30/2015 Pt Wnn9317 Low Intensity - 1.5-2.0 06/30/2015 Pt Lhe3585 Mod intensity - 2.0-3.0 06/30/2015 Pt Ing3107 Hi intensity - 3.0-4.0 06/30/2015 Review of [...] Procedure Codes Date DESTRUCT PREMALG LESION CPT-4: 94298 12/31/2018 DESTRUCT PREMALG LES 2-14 CPT-4: 16342 12/31/2018 OCCULT BLOOD FECES CPT- 4: 73997 04/08/2018 PPPS, SUBSEQ VISIT CPT- 4: G0439 04/03/2018 PPPS, SUBSEQ VISIT CPT- 4: G0439 10/31/2017 PRESCRIP TRANSMIT VIA ERX SY CPT-4: G8553 09/22/2017 THER/PROPH/DIAG INJ SC/IM CPT-4: 72479 01/21/2017 TRIAMCINOLONE ACET INJ NOS CPT-4: J3301 01/21/2017 THER/PROPH/DIAG INJ SC/IM CPT-4: 85470 12/30/2016 ROCEPHIN, PER 250 MG CPT- 4: J0696 12/30/2016 PPPS, SUBSEQ VISIT CPT- 4: G0439 10/25/2016 ROCEPHIN, PER 250 MG CPT- 4: J0696 06/24/2016 THER/PROPH/DIAG INJ SC/IM CPT-4: 40586 06/24/2016 Vital Signs Date Vital 12/31/2018 Blood Pressure 1: 140/80 Code: 8480-6 BMI: 29.0 Code: 61900-0 Heart Rate 1: 86 bpm Height: 5'8" SpO2: 97% Weight: 191 lbs 12/23/2018 Blood Pressure 1: 140/68 Code: 8480-6 BMI: 29.3 Code: 21765-0 Heart Rate 1: 70 bpm Height: 5'8" SpO2: 97% Weight: 193 lbs 04/03/2018 Blood Pressure 1: 128/72 Code: 8480-6 BMI: 29.8 Code: 73076-5 Heart Rate 1: 60 bpm Height: 5'8" SpO2: 96% Weight: 196 lbs 03/31/2018 Blood Pressure 1: 128/76 Code: 8480-6 BMI: 29.8 Code: 47418-2 Heart Rate 1: 56 bpm Height: 5'8" SpO2: 98% Weight: 196 lbs 11/26/2017 Blood Pressure 1: 156/76 Code: 8480-6 BMI: 29.6 Code: 96590-4 Heart Rate 1: 57 bpm Height: 5'8" SpO2: 98% Weight: 195 lbs 10/31/2017 Blood Pressure 1: 136/74 Code: 8480-6 BMI: 29.5 Code: 17376-3 Heart Rate 1: 56 bpm Height: 5'8" SpO2: 95% Waist Measure (cm): 91 cm Weight: 194 lbs 10/07/2017 Blood Pressure 1: 136/72 Code: 8480-6 BMI: 30.3 Code: 29567-4 Heart Rate 1: 58 bpm Height: 5'8" SpO2: 96% Weight: 199 lbs 09/22/2017 Blood Pressure 1: 138/78 Code: 8480-6 BMI: 30.4 Code: 10317-4 Heart Rate 1: 60 bpm Height: 5'8" SpO2: 98% Temperature: 36.6 (C) / 97.9 (F) Weight: 200 lbs 05/08/2017 Blood Pressure 1: 128/80 Code: 8480-6 BMI: 30.0 Code: 52531-5 Heart Rate 1: 75 bpm Height: 5'8" SpO2: 98% Weight: 197 lbs 03/25/2017 Blood Pressure 1: 150/80 Code: 8480-6 BMI: 30.1 Code: 28367-9 Heart Rate 1: 53 bpm Height: 5'8" SpO2: 98% Weight: 198 lbs 01/21/2017 Blood Pressure 1: 156/88 Code: 8480-6 BMI: 29.8 Code: 40286-0 Heart Rate 1: 95 bpm Height: 5'8" SpO2: 98% Temperature: 36.9 (C) / 98.4 (F) Weight: 196 lbs 12/30/2016 Blood Pressure 1: 122/74 Code: 8480-6 BMI: 29.8 Code: 88147-2 Heart Rate 1: 60 bpm Height: 5'8" SpO2: 96% Temperature: 37.1 (C) / 98.8 (F) Weight: 196 lbs 12/26/2016 Blood Pressure 1: 142/74 Code: 8480-6 BMI: 29.8 Code: 63683-1 Heart Rate 1: 58 bpm Height: 5'8" SpO2: 96% Temperature: 36.7 (C) / 98.0 (F) Weight: 196 lbs 12/02/2016 Blood Pressure 1: 128/78 Code: 8480-6 BMI: 30.3 Code: 57451-4 Heart Rate 1: 49 bpm Height: 5'8" SpO2: 98% Temperature: 36.5 (C) / 97.7 (F) Weight: 199 lbs 11/21/2016 Blood Pressure 1: 130/68 Code: 8480-6 BMI: 30.3 Code: 65124-3 Heart Rate 1: 54 bpm Height: 5'8" SpO2: 98% Weight: 199 lbs 10/25/2016 Blood Pressure 1: 150/92 Code: 8480-6 BMI: 29.8 Code: 42852-2 Heart Rate 1: 54 bpm Height: 5'8" SpO2: 97% Waist Measure (cm): 97 cm Weight: 196 lbs 10/23/2016 Blood Pressure 1: 150/92 Code: 8480-6 BMI: 29.9 Code: 78914-4 Heart Rate 1: 54 bpm Height: 5'8" SpO2: 98% Weight: 196 lbs 8 oz 07/29/2016 Blood Pressure 1: 144/72 Code: 8480-6 BMI: 30.3 Code: 96048-5 Heart Rate 1: 54 bpm Height: 5'8" SpO2: 98% Weight: 199 lbs 06/24/2016 Blood Pressure 1: 132/78 Code: 8480-6 BMI: 29.5 Code: 69372-2 Heart Rate 1: 59 bpm Height: 5'8" SpO2: 94% Weight: 194 lbs 02/21/2016 Blood Pressure 1: 138/84 Code: 8480-6 BMI: 30.3 Code: 00753-5 Heart Rate 1: 64 bpm Height: 5'8" SpO2: 95% Weight: 199 lbs 10/18/2015 Blood Pressure 1: 154/84 Code: 8480-6 Blood Pressure 1: 138/72 Code: 8480-6 BMI: 30.4 Code: 05265-4 Heart Rate 1: 68 bpm Height: 5'8" SpO2: 97% Weight: 200 lbs 05/02/2015 Blood Pressure 1: 114/64 Code: 8480-6 BMI: 29.0 Code: 01788-9 Heart Rate 1: 62 bpm Height: 5'8" [...] abscess without bleeding[ICD10: K57.00] Gabrielle Husain MD, [facility] CPT-4: 86074 12/23/2018 ([id number]) [id number] EST. PATIENT, LEVEL III Diagnosis: Low back pain[ICD10: M54.5] Diagnosis: Muscle spasm of back[ICD10: M62.830] Leidy Husain MD, [facility] CPT-4: 86398 03/31/2018 ([id number]) 04541 EST. PATIENT, LEVEL III Diagnosis: Actinic keratosis[ICD10: L57.0] Diagnosis: Other hypertrophic disorders of the skin[ICD10: L91.8] Amanda Husain MD, [facility] CPT-4: 43348 11/26/2017 ([id number]) [id number] EST. PATIENT, LEVEL IV Diagnosis: Essential (primary) hypertension[ICD10: I10] Diagnosis: Mild cognitive impairment, so stated[ICD10: G31.84] Amanda Husain MD, [facility] CPT-4: 44739 10/07/2017 ([id number]) [id number] EST. PATIENT, LEVEL III Diagnosis: Pneumonia due to other streptococci[ICD10: J15.4] Diagnosis: Cough[ICD10: R05] Amanda Husain MD, [facility] CPT-4: 25071 09/22/2017 [id number] EST. PATIENT, LEVEL IV Diagnosis: Left lower quadrant pain[ICD10: R10.32] Diagnosis: Other fatigue[ICD10: R53.83] Gabrielle Husain MD, [facility] CPT-4: 83133 05/08/2017 ([id number]) 30751 EST. PATIENT, LEVEL III Diagnosis: Essential (primary) hypertension[ICD10: I10] Amanda Husain MD, [facility] CPT-4: 94504 03/25/2017 ([id number]) 21644 EST. PATIENT, LEVEL III Diagnosis: Cough[ICD10: R05] Diagnosis: Allergic rhinitis due to pollen[ICD10: J30.1] Leidy Husain MD, [facility] CPT-4: 18743 01/21/2017 [id number] EST. PATIENT, LEVEL III Diagnosis: Other allergic rhinitis[ICD10: J30.89] Diagnosis: Cough[ICD10: R05] Gabrielle Husain MD, [facility] CPT-4: 31775 12/30/2016 ([id number]) 32084 EST. PATIENT, LEVEL III Diagnosis: Cough[ICD10: R05] Diagnosis: Pneumonia, unspecified organism[ICD10: J18.9] Leidy Husain MD, [facility] CPT-4: 40427 12/26/2016 ([id number]) 83938 EST. PATIENT, LEVEL III Diagnosis: Pneumonia due to other streptococci[ICD10: J15.4] Diagnosis: Cough[ICD10: R05] Amanda Husain MD, [facility] CPT-4: 67807 12/02/2016 ([id number]) 38537 EST. PATIENT, LEVEL III Diagnosis: Essential (primary) hypertension[ICD10: I10] Amanda Husain MD, [facility] CPT-4: 49552 11/21/2016 ([id number]) 28913 EST. PATIENT, LEVEL IV Diagnosis: Essential (primary) hypertension[ICD10: I10] Diagnosis: Mixed hyperlipidemia[ICD10: E78.2] Amanda Husain MD, [facility] CPT- 4: 71151 10/23/2016 [id number] EST. PATIENT, LEVEL IV Diagnosis: Other allergic rhinitis[ICD10: J30.89] Diagnosis: Cough[ICD10: R05] Gabrielle Husain MD, [facility] CPT-4: 25744 07/29/2016 ([id number]) Miscellaneous no charge Diagnosis: Pneumonia, unspecified organism[ICD10: J18.9] Gabrielle Husain MD, [facility] CPT-4: 26297 06/27/2016 ([id number]) 81165 EST. PATIENT, LEVEL IV Diagnosis: Essential (primary) hypertension[ICD10: I10] Diagnosis: Pneumonia, unspecified organism[ICD10: J18.9] Diagnosis: Cough[ICD10: R05] Diagnosis: Mixed hyperlipidemia[ICD10: E78.2] Amanda Husain MD, [facility] CPT- 4: 64604 06/24/2016 ([id number]) 66012 EST. PATIENT, LEVEL IV Diagnosis: Mixed hyperlipidemia[ICD10: E78.2] Diagnosis: Essential (primary) hypertension[ICD10: I10] Diagnosis: Gastro-esophageal reflux disease without esophagitis[ICD10: K21.9] Amanda Husain MD, [facility] CPT-4: 03516 02/21/2016 ([id number]) 48617 EST. 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 Call if not improved after thorough healing - apply neosporin to skin lesions. 12/31/2018 Appointment: Amanda Husain WPtel: [phone] ([facility] min) Complex 12/31/2018 Patient Education: Patient Medication Summary Completed 12/31/2018 Visit Plan: Diverticulitis - rx for antibiotic sent to pt's pharmacy - pt advised to avoid seeds, nuts, popcorn, or any other food which has been proven to upset the pt's stomach. 12/23/2018 Appointment: Gabrielle Corona WPtel: [address] [place], [place] [id number] (15 min) Moderate 12/23/2018 Patient Education: Patient Medication Summary Completed 12/23/2018 Appointment: Gabrielle Corona WPtel: [address] [place], [place] [id number] (30 min) Complex 12/16/2018 Appointment: Lab Draw [...] not improve. 03/31/2018 Appointment: Leidy Angulo WPtel: [facility] (15 min) Moderate 03/31/2018 Patient Education: Patient Medication Summary Completed 03/31/2018 Visit Plan: Wound Instructions - Pt was instructed to keep the wound clean, wash with antibacterial soap, use triple antibiotic ointment, call if redness, pustular drainage, or any other acute concerns. 11/26/2017 Appointment: Amanda Husain WPtel: [facility]5 [phone] Surgical Procedure 11/26/2017 Patient Education: Patient Medication [...] care surrogate. 10/31/2017 Appointment: Leidy Angulo WPtel: [phone] [phone] [facility] - Annual Wellness Visit 10/31/2017 Patient [...] loss. 10/07/2017 Appointment: Amanda Husain [facility]Ptel: [phone] (30 min) Complex 10/07/2017 Patient Education: Patient Medication Summary Completed 10/07/2017 Patient Education: Obesity Completed 10/07/2017 Patient Education: Hypertension Completed 10/07/2017 Visit Plan: Pneumonia - Pt has been diagnosed with pneumonia by physical exam. Antibiotics have been ordered. The pt is aware of the diagnosis and the need for acute treatment of this illness. 09/22/2017 Appointment: Amanda Husain [facility]el: [phone] (15 min) Moderate 09/22/2017 Patient Education: Patient [...] or concerns. 05/08/2017 Appointment: Gabrielle Corona WPtel: [facility]5 [facility] (30 min) Complex 05/08/2017 Patient [...] 10mg daily. 03/25/2017 Appointment: Amanda Husain WPtel: [facility] (15 min) Moderate 03/25/2017 Patient Education: Patient Medication Summary Completed 03/25/2017 Appointment: Leidy Angulo WPtel: [phone] (15 min) Moderate 01/31/2017 Visit Plan: URI/Allergies - Pt advised to increase fluids, vitamin C. Discussed natural and expected course of this diagnosis and need to alert me if symptoms do not follow expected course, or if any worse. RX sent to patient's pharmacy. 01/21/2017 Appointment: Leidy Angulo WPtel: [facility]7 [phone] (15 min) Moderate 01/21/2017 Patient Education: Patient [...] the medication. 12/30/2016 Appointment: Leidy Angulo WPtel: [facility]7 [phone] (15 min) Moderate 12/30/2016 Appointment: Gabrielle Corona WPtel: [facility]4 [facility] (30 min) Complex 12/30/2016 Patient [...] the levaquin. 12/26/2016 Appointment: Leidy Angulo WPtel: [facility]0 [phone] (15 min) Moderate 12/26/2016 Patient [...] at home. 11/21/2016 Appointment: Amanda Husain WPtel: [facility]7 [facility] (15 min) Moderate 11/21/2016 Patient Education: Patient [...] surrogate. 10/25/2016 Appointment: Leidy Angulo [facility]el[phone] [facility] - Annual Wellness Visit 10/25/2016 Patient [...] to medications. 10/23/2016 Appointment: Amanda Husain [facility]: [phone] (15 min) Moderate 10/23/2016 Patient Education: Patient [...] concerns. 07/29/2016 Appointment: Gabrielle Corona WPtel: [phone] [id number] (15 min) Moderate 07/29/2016 Patient Education: Patient [...] normal liver response to medications. 06/24/2016 Appointment: Rodrigue Amanda [facility]Ptel: [phone] [phone] (15 min) Moderate 06/24/2016 Patient Education: Patient [...] improving. 02/21/2016 Appointment: Amanda Husain [facility]el: [phone] [place] (15 min) Moderate 02/21/2016 Patient Education: Patient [...] Care Plan: COMPLETE CBC AUTOMATED LOINC : 46224-4 Ordered 05/02/2015 Care Plan: ASSAY OF TROPONIN [...] office if the symptoms are not improving. Follow up appointment with Dr. Cantu on [...] healing - apply neosporin to skin lesions. NOW[employer] or [employer] - take three times daily x 7 [...] drainage, or any other acute concerns. . Low back pain- recommend rest, tiger [...]
--- OUTSIDE RECORDS SUMMARY | 2019-05-19 11:01 | XMS REPORT | CCD ---
Author Author Amanda Celestin MD, [facility] Address [address] [place] [address] Phone Care Team Providers Care Engagement Engineer Name Role Phone PP Unavailable CCM Unavailable Summary Purpose Interface Exchange Insurance Providers Payer name Policy type / Coverage type Covered alliance party ID Effective Begin Date Effective End Date WPS Medicare Part B [id number] Unknown Anomaly [employer] [id number] Unknown Family history Brother Diagnosis Age At [...] Unknown Retired 05/02/[address]: 3878404 Former smoker Quit in 1966 05/02/2015 Number [...] Instructions Zithromax Z-Carlo 250 mg tablet RxNorm: 156003 2 Tablet(s) PO on 1 st day then 1 daily x 4 days ZPACK X 1 01/15/2019 No Stop Date Active metronidazole 500 mg tablet RxNorm: 539711 1 Tablet(s) PO TID 12/23/2018 01/01/2019 Inactive omeprazole 20 mg capsule,delayed release RxNorm: 386506 TAKE 1 CAPSULE BY MOUTH ONCE DAILY 12/07/2018 No Stop Date Active metoprolol tartrate 25 mg tablet RxNorm: 562011 Tablet(s) TAKE 1 TABLET BY MOUTH TWICE DAILY 10/16/2018 No Stop Date Active metoprolol tartrate 25 mg tablet RxNorm: 366337 TAKE 1 TABLET BY MOUTH TWICE DAILY 07/13/2018 10/15/2018 Inactive Trilipix 135 mg capsule,delayed release RxNorm: 192833 1 Capsule(s) PO daily 06/17/2018 10/14/2018 Inactive ramipril 10 mg capsule RxNorm: 147429 TAKE ONE CAPSULE BY MOUTH ONCE DAILY 06/15/2018 No Stop Date Active omeprazole 20 mg capsule,delayed release RxNorm: 106434 Capsule(s) TAKE ONE CAPSULE BY MOUTH ONCE DAILY 06/03/2018 No Stop Date Active omeprazole 20 mg capsule,delayed release RxNorm: 064385 Capsule(s) TAKE ONE CAPSULE BY MOUTH ONCE DAILY 06/02/2018 06/02/2018 Inactive metoprolol tartrate 25 mg tablet RxNorm: 416401 TAKE ONE TABLET BY MOUTH TWICE DAILY 02/16/2018 07/12/2018 Inactive omeprazole 20 mg capsule,delayed release RxNorm: 075211 TAKE ONE CAPSULE BY MOUTH ONCE DAILY 01/05/2018 06/01/2018 Inactive metoprolol tartrate 25 mg tablet RxNorm: 800380 TAKE ONE TABLET BY MOUTH TWICE DAILY 10/27/2017 02/15/2018 Inactive azithromycin 250 mg tablet RxNorm: 980507 1 Tablet(s) PO UD 2 tabs on day #1, then 1 pill daily x 4 days 09/22/2017 11/25/2017 Inactive omeprazole 20 mg capsule,delayed release RxNorm: 337375 TAKE ONE CAPSULE BY MOUTH ONCE DAILY 06/16/2017 12/12/2017 Inactive metronidazole 500 mg tablet RxNorm: 087868 1 Tablet(s) PO TID 05/08/2017 05/14/2017 Inactive ramipril 10 mg capsule RxNorm: 356421 1 Capsule(s) PO daily 03/25/2017 03/19/2018 Inactive Kenalog 40 mg/mL suspension for injection RxNorm: 5548217 Milliliter(s) Inj 01/21/2017 01/21/2017 Inactive ceftriaxone 500 mg solution for injection RxNorm: 2830153 Inj 12/30/2016 12/30/2016 Inactive Phenergan with Codeine Syrup RxNorm: 5-10 Milliliter(s) PO Q6 PRN 12/26/2016 No Stop Date Active Levaquin 500 mg tablet RxNorm: 255852 1 Tablet(s) PO daily 12/26/2016 01/01/2017 Inactive Tessalon Perles 100 mg capsule RxNorm: 656125 1 Capsule(s) PO TID as needed 12/26/2016 01/04/2017 Inactive prednisone 20 mg tablet RxNorm: 375723 1 Tablet(s) PO BID 12/26/2016 12/30/2016 Inactive omeprazole 20 mg capsule,delayed release RxNorm: 364250 TAKE ONE CAPSULE BY MOUTH ONCE DAILY 12/16/2016 06/13/2017 Inactive cefdinir 300 mg capsule RxNorm: 663400 1 Capsule(s) PO BID 12/02/2016 12/08/2016 Inactive azithromycin 250 mg tablet RxNorm: 324705 Tablet(s) 2 tabs on day #1, then one tab PO daily x 4 more days 12/02/2016 12/25/2016 Inactive metoprolol tartrate 25 mg tablet RxNorm: 885451 1 Tablet(s) PO BID 10/23/2016 10/17/2017 Inactive metoprolol tartrate 25 mg tablet RxNorm: 321901 1 Tablet(s) PO BID 10/23/2016 10/22/2016 Inactive ceftriaxone 500 mg solution for injection RxNorm: 2436849 Inj 06/24/2016 06/24/2016 Inactive cefdinir 300 mg capsule RxNorm: 736892 1 Capsule(s) PO BID 06/24/2016 06/30/2016 Inactive omeprazole 20 mg capsule,delayed release RxNorm: 492799 TAKE ONE CAPSULE BY MOUTH DAILY 06/07/2016 12/03/2016 Inactive omeprazole 20 mg capsule,delayed release RxNorm: 454072 TAKE ONE CAPSULE BY MOUTH DAILY 01/29/2016 05/27/2016 Inactive metoprolol tartrate 50 mg tablet RxNorm: 179652 Tablet(s) TAKE ONE TABLET BY MOUTH DAILY 10/11/2015 10/10/2015 Inactive metoprolol tartrate 50 mg tablet RxNorm: 003111 TAKE ONE TABLET BY MOUTH DAILY 10/11/2015 10/22/2016 Inactive omeprazole 20 mg capsule,delayed release RxNorm: 637663 TAKE ONE CAPSULE BY MOUTH DAILY 08/28/2015 01/24/2016 Inactive metoprolol tartrate 50 mg tablet RxNorm: 528289 TAKE ONE TABLET BY MOUTH DAILY 08/11/2015 10/09/2015 Inactive metoprolol tartrate 50 mg tablet RxNorm: 896138 1 Tablet(s) PO daily 06/14/2015 08/10/2015 Inactive omeprazole 20 mg capsule,delayed release RxNorm: 074379 1 Capsule(s) PO daily 05/29/2015 08/26/2015 Inactive omeprazole 20 mg capsule,delayed release RxNorm: 030742 1 Capsule(s) PO daily 05/29/2015 05/28/2015 Inactive metronidazole 500 mg tablet RxNorm: 537368 1 Tablet(s) PO TID 05/02/2015 05/08/2015 Inactive finasteride 5 mg tablet RxNorm: 897529 1 Tablet(s) PO daily No Start Date Active warfarin 5 mg tablet RxNorm: 537291 1 Tablet(s) PO daily No Start Date Active Aspirin Childrens 81 mg chewable tablet RxNorm: 364292 1 Tablet(s) PO daily No Start Date Active amiodarone 200 mg tablet RxNorm: 159007 1 Tablet(s) PO daily No Start Date Active vitamin E (dl, acetate) 1,000 unit capsule RxNorm: 248674 1 Capsule(s) PO daily No Start Date Active atorvastatin 80 mg tablet RxNorm: 287645 1 Tablet(s) PO daily No Start Date Active Fish Oil 120 mg-180 mg capsule RxNorm: 863813 1 Capsule(s) PO BID No Start Date 10/30/2017 Inactive metoprolol tartrate 50 mg tablet RxNorm: 650308 1 Tablet(s) PO daily No Start Date 06/13/2015 Inactive Zetia 10 mg tablet RxNorm: 090920 1 Tablet(s) PO daily No Start Date 10/17/2015 Inactive ramipril 5 mg capsule RxNorm: 160817 1 Capsule(s) PO daily No Start Date 03/24/2017 Inactive Tessalon Perles 100 mg capsule RxNorm: 680375 1 Capsule(s) PO TID as needed No Start Date 12/25/2016 Inactive omeprazole 20 mg capsule,delayed release RxNorm: 367972 1 Capsule(s) PO daily No Start Date 05/28/2015 Inactive Zithromax Z-Carlo 250 mg tablet RxNorm: 695167 2 Tablet(s) PO on 1 st day then 1 daily x 4 days ZPACK X 1 No Start Date 01/14/2019 Inactive Trilipix 135 mg capsule,delayed release RxNorm: 016985 1 Capsule(s) PO daily No Start Date 06/16/2018 Inactive Centrum Silver tablet RxNorm: 1 Tablet(s) PO daily No Start Date 10/30/2017 Inactive Medication Administered Medication Codes Instructions Start Date Status Kenalog 40 mg/mL suspension for injection RxNorm: 1055917 Milliliter 01/21/2017 No longer Active ceftriaxone 500 mg solution for injection RxNorm: 1640469 12/30/2016 No longer Active ceftriaxone 500 mg solution for injection RxNorm: 0452963 06/24/2016 No longer Active Immunizations Vaccine Codes [...] Code Item Item Code Result Date Pt Pci4724 PT 16.6 seconds 02/15/2019 Pt Dhn6162 INR 1.4 02/15/2019 Pt Zln0156 Low Intensity - 1.5-2.0 02/15/2019 Pt Qxn3859 Mod intensity - 2.0-3.0 02/15/2019 Pt Qxv1653 Hi intensity - 3.0-4.0 02/15/2019 Pt Saz2091 PT 16.6 seconds 02/05/2019 Pt Lbw8782 INR 1.4 02/05/2019 Pt Gal0645 Low Intensity - 1.5-2.0 02/05/2019 Pt Vxg3578 Mod intensity - 2.0-3.0 02/05/2019 Pt Jzj8493 Hi intensity - 3.0-4.0 02/05/2019 Pt Xsx0786 PT 39.6 seconds 02/01/2019 Pt Ptq8280 INR 4.1 02/01/2019 Pt Qre2042 Low Intensity - 1.5-2.0 02/01/2019 Pt Rlm6784 Mod intensity - 2.0-3.0 02/01/2019 Pt Xgi3404 Hi intensity - 3.0-4.0 02/01/2019 Pt Bal0953 PT 31.9 seconds 01/20/2019 Pt Tti8772 INR 3.1 01/20/2019 Pt Klq6511 Low Intensity - 1.5-2.0 01/20/2019 Pt You8721 Mod intensity - 2.0-3.0 01/20/2019 Pt Zjb5631 Hi intensity - 3.0-4.0 01/20/2019 Pt Ign8670 PT 21.0 seconds 01/12/2019 Pt Qul7474 INR 1.9 01/12/2019 Pt Jdz9655 Low Intensity - 1.5-2.0 01/12/2019 Pt Pek2612 Mod intensity - 2.0-3.0 01/12/2019 Pt Bmj5439 Hi intensity - 3.0-4.0 01/12/2019 Pt Lzp2847 PT 31.8 seconds 01/07/2019 Pt Iwl1655 INR 3.1 01/07/2019 Pt Nap4074 Low Intensity - 1.5-2.0 01/07/2019 Pt Npi3767 Mod intensity - 2.0-3.0 01/07/2019 Pt Ral8224 Hi intensity - 3.0-4.0 01/07/2019 Pt Hcc4972 PT 48.2 seconds 01/05/2019 Pt Cbw5018 INR 5.2 01/05/2019 Pt Yek3923 Low Intensity - 1.5-2.0 01/05/2019 Pt Aoh1505 Mod intensity - 2.0-3.0 01/05/2019 Pt Zds5075 Hi intensity - 3.0-4.0 01/05/2019 Pt Zmn3957 PT 17.6 seconds 12/25/2018 Pt Xnf9440 INR 1.5 12/25/2018 Pt Rpk7484 Low Intensity - 1.5-2.0 12/25/2018 Pt Boh5372 Mod intensity - 2.0-3.0 12/25/2018 Pt Psz4198 Hi intensity - 3.0-4.0 12/25/2018 Cbc With [...] 30.0 pg 12/10/2018 Cbc With Differential Ord2 [place]% 10.5 % 12/10/2018 Cbc With Differential Ord2 [...] 2.09 K/ul 12/10/2018 Cbc With Differential Ord2 [place] ABS# 0.8 K/ul 12/10/2018 Cbc With Differential Ord2 Eos ABS# 0.4 K/ul 12/10/2018 Cbc With Differential Ord2 Baso ABS# 0.0 K/ul 12/10/2018 Uric Acid Ord77 Uric A 4.6 mg/dL 12/10/2018 Random Urine Protein/Creatinine Ratio Etk0649 U Prot 9.0 mg/dl 12/10/2018 Random Urine Protein/Creatinine Ratio Ryn5680 U CREAT 126.0 mg/dL 12/10/2018 Random Urine Protein/Creatinine Ratio Hll2711 R MTP/Creat Ratio 0.07 12/10/2018 Ferritin Ord22 FERRITIN 47.9 ng/mL 12/10/2018 Renal Gux200 NA 142 mEq/L 12/10/2018 Renal Cpf568 K 4.3 mEq/L 12/10/2018 Renal Czq810 CL 106 mEq/L 12/10/2018 Renal Rko093 CO2 30.0 mEq/L 12/10/2018 Renal Uqb501 ANION GAP 10 12/10/2018 Renal Sdr611 Osmo 286 mOsmo 12/10/2018 Renal Cye655 GLUCOSE 105 mg/dL 12/10/2018 Renal Aqd602 BUN 20 mg/dL 12/10/2018 Renal Iry932 Creat 1.4 mg/dL 12/10/2018 Renal Lbn741 eGFR 52 ml/min/1.73m2 12/10/2018 Renal Goj130 B/C Ratio 14.1 Ratio 12/10/2018 Renal Bxd759 CALCIUM 9.7 mg/dL 12/10/2018 Renal Kqv055 PHOS 3.3 mg/dL 12/10/2018 Renal Elq475 ALBUMIN 4.0 g/dL 12/10/2018 Urinalysis Ord28 U-Color [...] 17.8 % 12/10/2018 Vitamin D 25 Oh Gwo1859 VITAMIN D, 25 HYDROXY 27.29 ng/mL 12/10/2018 Pt Ptz9990 PT 23.1 seconds 11/05/2018 Pt Kwb5831 INR 2.1 11/05/2018 Pt Aeu5314 Low Intensity - 1.5-2.0 11/05/2018 Pt Ihi4012 Mod intensity - 2.0-3.0 11/05/2018 Pt Pgk2340 Hi intensity - 3.0-4.0 11/05/2018 Pt Nkf9242 PT 29.8 seconds 08/17/2018 Pt Vlf2474 INR 2.8 08/17/2018 Pt Cug0839 Low Intensity - 1.5-2.0 08/17/2018 Pt Uog2881 Mod intensity - 2.0-3.0 08/17/2018 Pt Szw7176 Hi intensity - 3.0-4.0 08/17/2018 Pt Bro4113 PT 27.7 seconds 05/18/2018 Pt Fjv0226 INR 2.6 05/18/2018 Pt Fja5700 Low Intensity - 1.5-2.0 05/18/2018 Pt Fxe8772 Mod intensity - 2.0-3.0 05/18/2018 Pt Hne0274 Hi intensity - 3.0-4.0 05/18/2018 Uric Acid [...] 30.9 pg 05/18/2018 Cbc With Differential Ord2 [place]% 13.8 % 05/18/2018 Cbc With Differential Ord2 [...] 1.94 K/ul 05/18/2018 Cbc With Differential Ord2 [place] ABS# 0.9 K/ul 05/18/2018 Cbc With Differential Ord2 Eos ABS# 0.4 K/ul 05/18/2018 Cbc With Differential Ord2 Baso ABS# 0.0 K/ul 05/18/2018 Random Urine Protein/Creatinine Ratio Nlk3733 U Prot 7.0 mg/dl 05/18/2018 Random Urine Protein/Creatinine Ratio Jue1282 U CREAT 75.0 mg/dL 05/18/2018 Random Urine Protein/Creatinine Ratio Spc3873 R MTP/Creat Ratio 0.09 05/18/2018 Vitamin D 25 Oh Xyw9396 VITAMIN D, 25 HYDROXY 27.40 ng/mL 05/18/2018 Tibc Ord40 Iron 68 ug/dl 05/18/2018 Tibc Ord40 UIBC 308 ug/dL 05/18/2018 Tibc Ord40 TIBC 376 ug/dL 05/18/2018 Tibc Ord40 Fe-%Sat 18.1 % 05/18/2018 Parathyroid Hormone Iul310 PTH 36.20 pg/ml 05/18/2018 Urinalysis Ord28 U-Color [...] hours from collection if refrigerated) 05/18/2018 Renal Eef162 NA 141 mEq/L 05/18/2018 Renal Pgr768 K 4.0 mEq/L 05/18/2018 Renal Mnz266 CL 107 mEq/L 05/18/2018 Renal Hwr247 CO2 27.0 mEq/L 05/18/2018 Renal Ayl990 ANION GAP 11 05/18/2018 Renal Asc853 Osmo 282 mOsmo 05/18/2018 Renal Bey608 GLUCOSE 83 mg/dL 05/18/2018 Renal Led192 BUN 18 mg/dL 05/18/2018 Renal Nfc214 Creat 1.4 mg/dL 05/18/2018 Renal Ztt803 eGFR 55 ml/min/1.73m2 05/18/2018 Renal Cad771 B/C Ratio 13.3 Ratio 05/18/2018 Renal Qxs652 CALCIUM 9.0 mg/dL 05/18/2018 Renal Ipx214 PHOS 2.9 mg/dL 05/18/2018 Renal Ssq268 ALBUMIN 4.0 g/dL 05/18/2018 Ferritin Ord22 FERRITIN [...] Metabolic Ord15 CALCIUM 9.2 mg/dL 03/23/2018 Pt Pjm5449 PT 29.0 seconds 03/13/2018 Pt Kzo8731 INR 2.7 03/13/2018 Pt Blz7444 Low Intensity - 1.5-2.0 03/13/2018 Pt Wht0848 Mod intensity - 2.0-3.0 03/13/2018 Pt Tlq5322 Hi intensity - 3.0-4.0 03/13/2018 Pt Nbd3088 PT 31.6 seconds 03/04/2018 Pt Ysb7978 INR 3.0 03/04/2018 Pt Yzl2412 Low Intensity - 1.5-2.0 03/04/2018 Pt Umm6291 Mod intensity - 2.0-3.0 03/04/2018 Pt Mew6964 Hi intensity - 3.0-4.0 03/04/2018 Pt Nkt3970 PT 33.3 seconds 01/29/2018 Pt Fwk9892 INR 3.2 01/29/2018 Pt Aac7603 Low Intensity - 1.5-2.0 01/29/2018 Pt Jlp1733 Mod intensity - 2.0-3.0 01/29/2018 Pt Ybi7683 Hi intensity - 3.0-4.0 01/29/2018 Pt Gng4205 PT 26.1 seconds 01/21/2018 Pt Yly2107 INR 2.4 01/21/2018 Pt Ymv9166 Low Intensity - 1.5-2.0 01/21/2018 Pt Kzc3946 Mod intensity - 2.0-3.0 01/21/2018 Pt Yhr1882 Hi intensity - 3.0-4.0 01/21/2018 Pt Ljz6816 PT 35.7 seconds 01/09/2018 Pt Esv3445 INR 3.5 01/09/2018 Pt Kdw6967 Low Intensity - 1.5-2.0 01/09/2018 Pt Wky1440 Mod intensity - 2.0-3.0 01/09/2018 Pt Uga9130 Hi intensity - 3.0-4.0 01/09/2018 Pt Szv6799 PT 23.8 seconds 12/04/2017 Pt Tot8410 INR 2.1 12/04/2017 Pt Qcv3307 Low Intensity - 1.5-2.0 12/04/2017 Pt Fnh7286 Mod intensity - 2.0-3.0 12/04/2017 Pt Jti5534 Hi intensity - 3.0-4.0 12/04/2017 Pt Scc2663 PT 32.3 seconds 11/12/2017 Pt Vba0379 INR 3.1 11/12/2017 Pt Jft9264 Low Intensity - 1.5-2.0 11/12/2017 Pt Ggt7620 Mod intensity - 2.0-3.0 11/12/2017 Pt Zas8125 Hi intensity - 3.0-4.0 11/12/2017 Urinalysis Ord28 [...] hours from collection if refrigerated) 10/20/2017 Pt Cmt8313 PT 16.6 seconds 10/20/2017 Pt Ppk1696 INR 1.4 10/20/2017 Pt Lqa8382 Low Intensity - 1.5-2.0 10/20/2017 Pt Hbi9070 Mod intensity - 2.0-3.0 10/20/2017 Pt Wpj4182 Hi intensity - 3.0-4.0 10/20/2017 Renal Dlr436 NA 142 mEq/L 10/20/2017 Renal Asc704 K 4.5 mEq/L 10/20/2017 Renal Dos580 CL 107 mEq/L 10/20/2017 Renal Jje952 CO2 28.0 mEq/L 10/20/2017 Renal Xvc883 ANION GAP 12 10/20/2017 Renal Pkn303 Osmo 288 mOsmo 10/20/2017 Renal Ntk140 GLUCOSE 96 mg/dL 10/20/2017 Renal Itz711 BUN 27 mg/dL 10/20/2017 Renal Jad568 Creat 1.6 mg/dL 10/20/2017 Renal Bgn155 eGFR 46 ml/min/1.73m2 10/20/2017 Renal Byf379 B/C Ratio 17.2 Ratio 10/20/2017 Renal Ygb645 CALCIUM 9.4 mg/dL 10/20/2017 Renal Mpp923 PHOS 3.0 mg/dL 10/20/2017 Renal Pyq336 ALBUMIN 4.2 g/dL 10/20/2017 Pt Ssc8777 PT 31.2 seconds 10/17/2017 Pt Fst7805 INR 3.0 10/17/2017 Pt Yha1341 Low Intensity - 1.5-2.0 10/17/2017 Pt Kqk6725 Mod intensity - 2.0-3.0 10/17/2017 Pt Pxf0520 Hi intensity - 3.0-4.0 10/17/2017 Comp Metabolic Jky833 NA 139 mEq/L 05/08/2017 Comp Metabolic Kjk659 K 4.1 mEq/L 05/08/2017 Comp Metabolic Mtp059 CL 103 mEq/L 05/08/2017 Comp Metabolic Pls431 CO2 28.0 mEq/L 05/08/2017 Comp Metabolic Dml092 ANION GAP 12 05/08/2017 Comp Metabolic Wdq474 GLUCOSE 75 mg/dL 05/08/2017 Comp Metabolic Mpo725 Creat 1.3 mg/dL 05/08/2017 Comp Metabolic Wud345 eGFR 55 ml/min/1.73m2 05/08/2017 Comp Metabolic Kzr415 BUN 20 mg/dL 05/08/2017 Comp Metabolic Hse077 B/C Ratio 14.9 Ratio 05/08/2017 Comp Metabolic Hlw628 CALCIUM 8.8 mg/dL 05/08/2017 Comp Metabolic Dpa532 ALK PHOS 51 U/L 05/08/2017 Comp Metabolic Zuh513 AST(SGOT) 30 U/L 05/08/2017 Comp Metabolic Hbq342 ALT(SGPT) 31 U/L 05/08/2017 Comp Metabolic Vak288 BILI T 0.9 mg/dL 05/08/2017 Comp Metabolic Sdc054 ALBUMIN 4.0 g/dL 05/08/2017 Comp Metabolic Hya380 TPRO 6.5 g/dL 05/08/2017 Comp Metabolic Ttl312 GLOB 2.6 g/dL 05/08/2017 Comp Metabolic Nyw110 A/G Ratio 1.5 Ratio 05/08/2017 Comp Metabolic Maj619 Osmo 279 mOsmo 05/08/2017 Cbc With Differential [...] 31.5 pg 05/08/2017 Cbc With Differential Ord2 [place]% 13.5 % 05/08/2017 Cbc With Differential Ord2 [...] 1.29 K/ul 05/08/2017 Cbc With Differential Ord2 [place] ABS# 1.1 K/ul 05/08/2017 Cbc With Differential Ord2 Eos ABS# 0.2 K/ul 05/08/2017 Cbc With Differential Ord2 Baso ABS# 0.0 K/ul 05/08/2017 Pt Tyk9839 PT 22.7 seconds 11/22/2016 Pt Wnf5089 INR 2.1 11/22/2016 Pt Ycu9988 Low Intensity - 1.5-2.0 11/22/2016 Pt Lxk1203 Mod intensity - 2.0-3.0 11/22/2016 Pt Scg6951 Hi intensity - 3.0-4.0 11/22/2016 Pt Efe5683 PT 24.4 seconds 10/25/2016 Pt Wwl5965 INR 2.3 10/25/2016 Pt Teg4805 Low Intensity - 1.5-2.0 10/25/2016 Pt Okf6580 Mod intensity - 2.0-3.0 10/25/2016 Pt Gxr4008 Hi intensity - 3.0-4.0 10/25/2016 Pt Rof6543 PT 23.5 seconds 09/04/2016 Pt Pqn2128 INR 2.2 09/04/2016 Pt Iuu9919 Low Intensity - 1.5-2.0 09/04/2016 Pt Qwj6748 Mod intensity - 2.0-3.0 09/04/2016 Pt Vct3298 Hi intensity - 3.0-4.0 09/04/2016 Pt Pii9858 PT 26.1 seconds 07/09/2016 Pt Jpu8434 INR 2.6 07/09/2016 Pt Qjr9956 Low Intensity - 1.5-2.0 07/09/2016 Pt Adj2300 Mod intensity - 2.0-3.0 07/09/2016 Pt Qsf8745 Hi intensity - 3.0-4.0 07/09/2016 Pt Zwj6825 PT 19.4 seconds 06/24/2016 Pt Iqc2811 INR 1.7 06/24/2016 Pt Ppb6074 Low Intensity - 1.5-2.0 06/24/2016 Pt Iip6457 Mod intensity - 2.0-3.0 06/24/2016 Pt Wip0276 Hi intensity - 3.0-4.0 06/24/2016 Pt Xqo5986 PT 28.9 seconds 04/26/2016 Pt Vew7801 INR 2.9 04/26/2016 Pt Lfz1165 Low Intensity - 1.5-2.0 04/26/2016 Pt Lxo0172 Mod intensity - 2.0-3.0 04/26/2016 Pt Wxh5867 Hi intensity - 3.0-4.0 04/26/2016 Tsh Ord6 hTSH II 1.21 uIU/mL 02/29/2016 Pt Vtm7776 PT 21.8 seconds 02/29/2016 Pt Bln7650 INR 2.0 02/29/2016 Pt Lof0813 Low Intensity - 1.5-2.0 02/29/2016 Pt Izx0332 Mod intensity - 2.0-3.0 02/29/2016 Pt Lxi1502 Hi intensity - 3.0-4.0 02/29/2016 Lipid Ord30 [...] Ord2 RDW 16.2 % 06/30/2015 Comp Metabolic Lyb473 NA 138 mEq/L 06/30/2015 Comp Metabolic Pux271 K 4.8 mEq/L 06/30/2015 Comp Metabolic Uhj568 CL 107 mEq/L 06/30/2015 Comp Metabolic Hmx135 CO2 27.0 mEq/L 06/30/2015 Comp Metabolic Ljd319 ANION GAP 9 06/30/2015 Comp Metabolic Cde907 GLUCOSE 98 mg/dL 06/30/2015 Comp Metabolic Zvq579 Creat 1.8 mg/dL 06/30/2015 Comp Metabolic Moh888 eGFR 40 ml/min/1.73m2 06/30/2015 Comp Metabolic Eks306 BUN 20 mg/dL 06/30/2015 Comp Metabolic Fzq573 B/C Ratio 11.1 Ratio 06/30/2015 Comp Metabolic Mdq835 CALCIUM 9.1 mg/dL 06/30/2015 Comp Metabolic Hya939 ALK PHOS 39 U/L 06/30/2015 Comp Metabolic Ggx701 AST(SGOT) 21 U/L 06/30/2015 Comp Metabolic Zwp391 ALT(SGPT) 23 U/L 06/30/2015 Comp Metabolic Lsp468 BILI T 0.5 mg/dL 06/30/2015 Comp Metabolic Jan696 ALBUMIN 4.0 g/dL 06/30/2015 Comp Metabolic Gny055 TPRO 6.6 g/dL 06/30/2015 Comp Metabolic Wbh204 GLOB 2.6 g/dL 06/30/2015 Comp Metabolic Pfn605 A/G Ratio 1.5 Ratio 06/30/2015 Comp Metabolic Rvu733 Osmo 278 mOsmo 06/30/2015 Pt Wdo2471 PT 26.1 seconds 06/30/2015 Pt Gmz4575 INR 2.5 06/30/2015 Pt Ivf1158 Low Intensity - 1.5-2.0 06/30/2015 Pt Iim0769 Mod intensity - 2.0-3.0 06/30/2015 Pt Acy9330 Hi intensity - 3.0-4.0 06/30/2015 Review of [...] Procedure Codes Date DESTRUCT PREMALG LESION CPT-4: 46567 12/31/2018 DESTRUCT PREMALG LES 2-14 CPT-4: 60618 12/31/2018 OCCULT BLOOD FECES CPT- 4: 77368 04/08/2018 PPPS, SUBSEQ VISIT CPT- 4: G0439 04/03/2018 PPPS, SUBSEQ VISIT CPT- 4: G0439 10/31/2017 PRESCRIP TRANSMIT VIA ERX SY CPT-4: G8553 09/22/2017 THER/PROPH/DIAG INJ SC/IM CPT-4: 52026 01/21/2017 TRIAMCINOLONE ACET INJ NOS CPT-4: J3301 01/21/2017 THER/PROPH/DIAG INJ SC/IM CPT-4: 81649 12/30/2016 ROCEPHIN, PER 250 MG CPT- 4: J0696 12/30/2016 PPPS, SUBSEQ VISIT CPT- 4: G0439 10/25/2016 ROCEPHIN, PER 250 MG CPT- 4: J0696 06/24/2016 THER/PROPH/DIAG INJ SC/IM CPT-4: 48707 06/24/2016 Vital Signs Date Vital 12/31/2018 Blood Pressure 1: 140/80 Code: 8480-6 BMI: 29.0 Code: 30992-4 Heart Rate 1: 86 bpm Height: 5'8" SpO2: 97% Weight: 191 lbs 12/23/2018 Blood Pressure 1: 140/68 Code: 8480-6 BMI: 29.3 Code: 21074-4 Heart Rate 1: 70 bpm Height: 5'8" SpO2: 97% Weight: 193 lbs 04/03/2018 Blood Pressure 1: 128/72 Code: 8480-6 BMI: 29.8 Code: 07715-3 Heart Rate 1: 60 bpm Height: 5'8" SpO2: 96% Weight: 196 lbs 03/31/2018 Blood Pressure 1: 128/76 Code: 8480-6 BMI: 29.8 Code: 49762-4 Heart Rate 1: 56 bpm Height: 5'8" SpO2: 98% Weight: 196 lbs 11/26/2017 Blood Pressure 1: 156/76 Code: 8480-6 BMI: 29.6 Code: 68754-7 Heart Rate 1: 57 bpm Height: 5'8" SpO2: 98% Weight: 195 lbs 10/31/2017 Blood Pressure 1: 136/74 Code: 8480-6 BMI: 29.5 Code: 38988-7 Heart Rate 1: 56 bpm Height: 5'8" SpO2: 95% Waist Measure (cm): 91 cm Weight: 194 lbs 10/07/2017 Blood Pressure 1: 136/72 Code: 8480-6 BMI: 30.3 Code: 28486-5 Heart Rate 1: 58 bpm Height: 5'8" SpO2: 96% Weight: 199 lbs 09/22/2017 Blood Pressure 1: 138/78 Code: 8480-6 BMI: 30.4 Code: 98280-7 Heart Rate 1: 60 bpm Height: 5'8" SpO2: 98% Temperature: 36.6 (C) / 97.9 (F) Weight: 200 lbs 05/08/2017 Blood Pressure 1: 128/80 Code: 8480-6 BMI: 30.0 Code: 41466-4 Heart Rate 1: 75 bpm Height: 5'8" SpO2: 98% Weight: 197 lbs 03/25/2017 Blood Pressure 1: 150/80 Code: 8480-6 BMI: 30.1 Code: 56487-0 Heart Rate 1: 53 bpm Height: 5'8" SpO2: 98% Weight: 198 lbs 01/21/2017 Blood Pressure 1: 156/88 Code: 8480-6 BMI: 29.8 Code: 80275-9 Heart Rate 1: 95 bpm Height: 5'8" SpO2: 98% Temperature: 36.9 (C) / 98.4 (F) Weight: 196 lbs 12/30/2016 Blood Pressure 1: 122/74 Code: 8480-6 BMI: 29.8 Code: 23813-5 Heart Rate 1: 60 bpm Height: 5'8" SpO2: 96% Temperature: 37.1 (C) / 98.8 (F) Weight: 196 lbs 12/26/2016 Blood Pressure 1: 142/74 Code: 8480-6 BMI: 29.8 Code: 38632-1 Heart Rate 1: 58 bpm Height: 5'8" SpO2: 96% Temperature: 36.7 (C) / 98.0 (F) Weight: 196 lbs 12/02/2016 Blood Pressure 1: 128/78 Code: 8480-6 BMI: 30.3 Code: 07967-2 Heart Rate 1: 49 bpm Height: 5'8" SpO2: 98% Temperature: 36.5 (C) / 97.7 (F) Weight: 199 lbs 11/21/2016 Blood Pressure 1: 130/68 Code: 8480-6 BMI: 30.3 Code: 01770-5 Heart Rate 1: 54 bpm Height: 5'8" SpO2: 98% Weight: 199 lbs 10/25/2016 Blood Pressure 1: 150/92 Code: 8480-6 BMI: 29.8 Code: 09128-9 Heart Rate 1: 54 bpm Height: 5'8" SpO2: 97% Waist Measure (cm): 97 cm Weight: 196 lbs 10/23/2016 Blood Pressure 1: 150/92 Code: 8480-6 BMI: 29.9 Code: 92039-9 Heart Rate 1: 54 bpm Height: 5'8" SpO2: 98% Weight: 196 lbs 8 oz 07/29/2016 Blood Pressure 1: 144/72 Code: 8480-6 BMI: 30.3 Code: 24313-1 Heart Rate 1: 54 bpm Height: 5'8" SpO2: 98% Weight: 199 lbs 06/24/2016 Blood Pressure 1: 132/78 Code: 8480-6 BMI: 29.5 Code: 91523-9 Heart Rate 1: 59 bpm Height: 5'8" SpO2: 94% Weight: 194 lbs 02/21/2016 Blood Pressure 1: 138/84 Code: 8480-6 BMI: 30.3 Code: 93546-7 Heart Rate 1: 64 bpm Height: 5'8" SpO2: 95% Weight: 199 lbs 10/18/2015 Blood Pressure 1: 154/84 Code: 8480-6 Blood Pressure 1: 138/72 Code: 8480-6 BMI: 30.4 Code: 94016-2 Heart Rate 1: 68 bpm Height: 5'8" SpO2: 97% Weight: 200 lbs 05/02/2015 Blood Pressure 1: 114/64 Code: 8480-6 BMI: 29.0 Code: 10178-7 Heart Rate 1: 62 bpm Height: 5'8" [...] data Encounters Encounter Performer Location Codes Date [id number] EST. PATIENT, LEVEL III Diagnosis: Diverticulitis of small intestine with perforation and abscess without bleeding[ICD10: K57.00] [facility] CPT-4: 37250 12/23/2018 ([id number]) 55636 EST. PATIENT, LEVEL III Diagnosis: Low back pain[ICD10: M54.5] Diagnosis: Muscle spasm of back[ICD10: M62.830] Leidy Husain MD, [facility] CPT-4: 52772 03/31/2018 ([id number]) 95615 EST. PATIENT, LEVEL III Diagnosis: Actinic keratosis[ICD10: L57.0] Diagnosis: Other hypertrophic disorders of the skin[ICD10: L91.8] Amanda Husain MD, [facility] CPT-4: 44848 11/26/2017 ([id number]) 33619 EST. PATIENT, LEVEL IV Diagnosis: Essential (primary) hypertension[ICD10: I10] Diagnosis: Mild cognitive impairment, so stated[ICD10: G31.84] Amanda Husain MD, [facility] CPT-4: 74440 10/07/2017 ([id number]) 04080 EST. PATIENT, LEVEL III Diagnosis: Pneumonia due to other streptococci[ICD10: J15.4] Diagnosis: Cough[ICD10: R05] Amanda Husain MD, [facility] CPT-4: 12729 09/22/2017 [id number] EST. PATIENT, LEVEL IV Diagnosis: Left lower quadrant pain[ICD10: R10.32] Diagnosis: Other fatigue[ICD10: R53.83] Gabrielle Husain MD, [facility] CPT-4: 71068 05/08/2017 ([id number]) 55188 EST. PATIENT, LEVEL III Diagnosis: Essential (primary) hypertension[ICD10: I10] Amanda Husain MD, [facility] CPT-4: 77629 03/25/2017 ([id number]) 36052 EST. PATIENT, LEVEL III Diagnosis: Cough[ICD10: R05] Diagnosis: Allergic rhinitis due to pollen[ICD10: J30.1] Leidy Husain MD, [facility] CPT-4: 05938 01/21/2017 [id number] EST. PATIENT, LEVEL III Diagnosis: Other allergic rhinitis[ICD10: J30.89] Diagnosis: Cough[ICD10: R05] Gabrielle Husain MD, [facility] CPT-4: 73656 12/30/2016 ([id number]) 84409 EST. PATIENT, LEVEL III Diagnosis: Cough[ICD10: R05] Diagnosis: Pneumonia, unspecified organism[ICD10: J18.9] Leidy Husain MD, [facility] CPT-4: 67657 12/26/2016 ([id number]) 59669 EST. PATIENT, LEVEL III Diagnosis: Pneumonia due to other streptococci[ICD10: J15.4] Diagnosis: Cough[ICD10: R05] Amanda Husain MD, [facility] CPT-4: 95385 12/02/2016 ([id number]) 75524 EST. PATIENT, LEVEL III Diagnosis: Essential (primary) hypertension[ICD10: I10] Amanda Husain MD [facility] CPT-4: 33598 11/21/2016 ([id number]) 93078 EST. PATIENT, LEVEL IV Diagnosis: Essential (primary) hypertension[ICD10: I10] Diagnosis: Mixed hyperlipidemia[ICD10: E78.2] Amanda Husain MD, [facility] CPT- 4: 73488 10/23/2016 56507 EST. PATIENT, LEVEL IV Diagnosis: Other allergic rhinitis[ICD10: J30.89] Diagnosis: Cough[ICD10: R05] Gabrielle Husain MD, [facility] CPT-4: 27952 07/29/2016 ([id number]) Miscellaneous no charge Diagnosis: Pneumonia, unspecified organism[ICD10: J18.9] Gabrielle Husain MD [facility] CPT-4: 30172 06/27/2016 ([id number]) 75246 EST. PATIENT, LEVEL IV Diagnosis: Essential (primary) hypertension[ICD10: I10] Diagnosis: Pneumonia, unspecified organism[ICD10: J18.9] Diagnosis: Cough[ICD10: R05] Diagnosis: Mixed hyperlipidemia[ICD10: E78.2] Amanda Husain MD, [facility] CPT- 4: 39914 06/24/2016 ([id number]) 98066 EST. PATIENT, LEVEL IV Diagnosis: Mixed hyperlipidemia[ICD10: E78.2] Diagnosis: Essential (primary) hypertension[ICD10: I10] Diagnosis: Gastro-esophageal reflux disease without esophagitis[ICD10: K21.9] [facility] CPT-4: 95456 02/21/2016 ([id number]) 74618 EST. 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 Call if not improved after thorough healing - apply neosporin to skin lesions. 12/31/2018 Appointment: Amanda Husain [facility]el[facility] ([facility] min[facility] Complex 12/31/2018 Patient Education: Patient Medication Summary Completed 12/31/2018 Visit Plan: Diverticulitis - rx for antibiotic sent to pt's pharmacy - pt advised to avoid seeds, nuts, popcorn, or any other food which has been proven to upset the pt's stomach. 12/23/2018 Appointment: Gabrielle Corona WPtel: [address] [place], [place] [address] (15 min) Moderate 12/23/2018 Patient Education: Patient Medication Summary Completed 12/23/2018 Appointment: Gabrielle Corona WPtel: [facility] (30 min) Complex 12/16/2018 Appointment: Lab Draw [...] not improve. 03/31/2018 Appointment: Leidy Angulo WPtel: [facility] (15 min) Moderate 03/31/2018 Patient Education: Patient Medication Summary Completed 03/31/2018 Visit Plan: Wound Instructions - Pt was instructed to keep the wound clean, wash with antibacterial soap, use triple antibiotic ointment, call if redness, pustular drainage, or any other acute concerns. 11/26/2017 Appointment: Amanda Husain WPtel: [facility]5 [facility] Surgical Procedure 11/26/2017 Patient Education: [...] care surrogate. 10/31/2017 Appointment: Leidy Angulo WPtel: [facility]3 [phone] [facility] - Annual Wellness Visit 10/31/2017 Patient [...] memory loss. 10/07/2017 Appointment: Amanda Husain WPtel: [facility] (30 min) Complex 10/07/2017 Patient Education: Patient Medication Summary Completed 10/07/2017 Patient Education: Obesity Completed 10/07/2017 Patient Education: Hypertension Completed 10/07/2017 Visit Plan: Pneumonia - Pt has been diagnosed with pneumonia by physical exam. Antibiotics have been ordered. The pt is aware of the diagnosis and the need for acute treatment of this illness. 09/22/2017 Appointment: Amanda Husain WPtel: [facility]3 [facility] (15 min) Moderate 09/22/2017 Patient [...] or concerns. 05/08/2017 Appointment: Gabrielle Corona WPtel: [facility] (30 min) Complex 05/08/2017 Patient Education: Patient [...] daily. 03/25/2017 Appointment: Amanda Husain WPtel: [phone] [address] [place] (15 min) Moderate 03/25/2017 Patient Education: Patient Medication Summary Completed 03/25/2017 Appointment: Leidy Angulo WPtel: [phone] [place] (15 min) Moderate 01/31/2017 Visit Plan: URI/Allergies - Pt advised to increase fluids, vitamin C. Discussed natural and expected course of this diagnosis and need to alert me if symptoms do not follow expected course, or if any worse. RX sent to patient's pharmacy. 01/21/2017 Appointment: Leidy Angulo WPtel: [address] [place] (15 min) Moderate 01/21/2017 Patient Education: [...] medication. 12/30/2016 Appointment: Leidy Angulo WPtel: [phone] [phone] [place] (15 min) Moderate 12/30/2016 Appointment: Gabrielle Corona WPtel: [phone] [facility] [place] (30 min) Complex 12/30/2016 Patient Education: Patient [...] levaquin. 12/26/2016 Appointment: Leidy Angulo WPtel: [address] [facility] [phone] [place] (15 min) Moderate 12/26/2016 Patient Education: [...] home. 11/21/2016 Appointment: [facility] [phone] [facility] (15 min) Moderate 11/21/2016 Patient Education: [...] care surrogate. 10/25/2016 Appointment: Leidy Angulo WPtel: [facility] [phone] [facility] - Annual Wellness Visit 10/25/2016 Patient [...] to medications. 10/23/2016 Appointment: Amanda Husain WPtel: [facility]0 [facility] (15 min) Moderate 10/23/2016 Patient [...] concerns. 07/29/2016 Appointment: Gabrielle Corona WPtel: [phone] [facility] [place] (15 min) Moderate 07/29/2016 Patient Education: Patient [...] medications. 06/24/2016 Appointment: Amanda Husain [facility]Ptel[facility] [phone] [facility] [place] (15 min) Moderate 06/24/2016 Patient Education: Patient [...] not improving. 02/21/2016 Appointment: Amanda Husain WPtel: [facility] [place] (15 min) Moderate 02/21/2016 Patient Education: Patient [...] Care Plan: COMPLETE CBC AUTOMATED LOINC : 80015-7 Ordered 05/02/2015 Care Plan: ASSAY OF [employer]OPONIN [...] healing - apply neosporin to skin lesions. [employer] or [employer] - take three times daily x 7 [...]
--- OUTSIDE RECORDS SUMMARY | 2019-05-19 11:05 | XMS REPORT | CCD ---
Author Author Amanda Celestin MD, [facility] Address [address] [place] [address] Phone Care Team Providers Care Server Systems Administrator Name Role Phone PP Unavailable CCM Unavailable Summary Purpose Interface Exchange Insurance Providers Payer name Policy type / Coverage type Covered constitution party ID Effective Begin Date Effective End Date WPS Medicare Part B [id number] Unknown [employer] [id number] Unknown Family history Brother Diagnosis Age At [...] Unknown Retired 05/02/[address]: 1392001 Former smoker Quit in 1966 05/02/2015 Number [...] Instructions Zithromax Z-Carlo 250 mg tablet RxNorm: 221431 2 Tablet(s) PO on 1 st day then 1 daily x 4 days ZPACK X 1 01/15/2019 No Stop Date Active metronidazole 500 mg tablet RxNorm: 956860 1 Tablet(s) PO TID 12/23/2018 01/01/2019 Inactive omeprazole 20 mg capsule,delayed release RxNorm: 813164 TAKE 1 CAPSULE BY MOUTH ONCE DAILY 12/07/2018 No Stop Date Active metoprolol tartrate 25 mg tablet RxNorm: 850847 Tablet(s) TAKE 1 TABLET BY MOUTH TWICE DAILY 10/16/2018 No Stop Date Active metoprolol tartrate 25 mg tablet RxNorm: 768513 TAKE 1 TABLET BY MOUTH TWICE DAILY 07/13/2018 10/15/2018 Inactive Trilipix 135 mg capsule,delayed release RxNorm: 671193 1 Capsule(s) PO daily 06/17/2018 10/14/2018 Inactive ramipril 10 mg capsule RxNorm: 585676 TAKE ONE CAPSULE BY MOUTH ONCE DAILY 06/15/2018 No Stop Date Active omeprazole 20 mg capsule,delayed release RxNorm: 429699 Capsule(s) TAKE ONE CAPSULE BY MOUTH ONCE DAILY 06/03/2018 No Stop Date Active omeprazole 20 mg capsule,delayed release RxNorm: 421984 Capsule(s) TAKE ONE CAPSULE BY MOUTH ONCE DAILY 06/02/2018 06/02/2018 Inactive metoprolol tartrate 25 mg tablet RxNorm: 285973 TAKE ONE TABLET BY MOUTH TWICE DAILY 02/16/2018 07/12/2018 Inactive omeprazole 20 mg capsule,delayed release RxNorm: 944919 TAKE ONE CAPSULE BY MOUTH ONCE DAILY 01/05/2018 06/01/2018 Inactive metoprolol tartrate 25 mg tablet RxNorm: 952757 TAKE ONE TABLET BY MOUTH TWICE DAILY 10/27/2017 02/15/2018 Inactive azithromycin 250 mg tablet RxNorm: 940438 1 Tablet(s) PO UD 2 tabs on day #1, then 1 pill daily x 4 days 09/22/2017 11/25/2017 Inactive omeprazole 20 mg capsule,delayed release RxNorm: 146585 TAKE ONE CAPSULE BY MOUTH ONCE DAILY 06/16/2017 12/12/2017 Inactive metronidazole 500 mg tablet RxNorm: 345830 1 Tablet(s) PO TID 05/08/2017 05/14/2017 Inactive ramipril 10 mg capsule RxNorm: 665653 1 Capsule(s) PO daily 03/25/2017 03/19/2018 Inactive Kenalog 40 mg/mL suspension for injection RxNorm: 3773005 Milliliter(s) Inj 01/21/2017 01/21/2017 Inactive ceftriaxone 500 mg solution for injection RxNorm: 1611354 Inj 12/30/2016 12/30/2016 Inactive Phenergan with Codeine Syrup RxNorm: 5-10 Milliliter(s) PO Q6 PRN 12/26/2016 No Stop Date Active Levaquin 500 mg tablet RxNorm: 439008 1 Tablet(s) PO daily 12/26/2016 01/01/2017 Inactive Tessalon Perles 100 mg capsule RxNorm: 084802 1 Capsule(s) PO TID as needed 12/26/2016 01/04/2017 Inactive prednisone 20 mg tablet RxNorm: 439928 1 Tablet(s) PO BID 12/26/2016 12/30/2016 Inactive omeprazole 20 mg capsule,delayed release RxNorm: 056341 TAKE ONE CAPSULE BY MOUTH ONCE DAILY 12/16/2016 06/13/2017 Inactive cefdinir 300 mg capsule RxNorm: 922876 1 Capsule(s) PO BID 12/02/2016 12/08/2016 Inactive azithromycin 250 mg tablet RxNorm: 425107 Tablet(s) 2 tabs on day #1, then one tab PO daily x 4 more days 12/02/2016 12/25/2016 Inactive metoprolol tartrate 25 mg tablet RxNorm: 021706 1 Tablet(s) PO BID 10/23/2016 10/17/2017 Inactive metoprolol tartrate 25 mg tablet RxNorm: 243491 1 Tablet(s) PO BID 10/23/2016 10/22/2016 Inactive ceftriaxone 500 mg solution for injection RxNorm: 9757019 Inj 06/24/2016 06/24/2016 Inactive cefdinir 300 mg capsule RxNorm: 746793 1 Capsule(s) PO BID 06/24/2016 06/30/2016 Inactive omeprazole 20 mg capsule,delayed release RxNorm: 550167 TAKE ONE CAPSULE BY MOUTH DAILY 06/07/2016 12/03/2016 Inactive omeprazole 20 mg capsule,delayed release RxNorm: 853154 TAKE ONE CAPSULE BY MOUTH DAILY 01/29/2016 05/27/2016 Inactive metoprolol tartrate 50 mg tablet RxNorm: 410932 Tablet(s) TAKE ONE TABLET BY MOUTH DAILY 10/11/2015 10/10/2015 Inactive metoprolol tartrate 50 mg tablet RxNorm: 234064 TAKE ONE TABLET BY MOUTH DAILY 10/11/2015 10/22/2016 Inactive omeprazole 20 mg capsule,delayed release RxNorm: 773265 TAKE ONE CAPSULE BY MOUTH DAILY 08/28/2015 01/24/2016 Inactive metoprolol tartrate 50 mg tablet RxNorm: 539126 TAKE ONE TABLET BY MOUTH DAILY 08/11/2015 10/09/2015 Inactive metoprolol tartrate 50 mg tablet RxNorm: 151232 1 Tablet(s) PO daily 06/14/2015 08/10/2015 Inactive omeprazole 20 mg capsule,delayed release RxNorm: 968419 1 Capsule(s) PO daily 05/29/2015 08/26/2015 Inactive omeprazole 20 mg capsule,delayed release RxNorm: 155277 1 Capsule(s) PO daily 05/29/2015 05/28/2015 Inactive metronidazole 500 mg tablet RxNorm: 166871 1 Tablet(s) PO TID 05/02/2015 05/08/2015 Inactive finasteride 5 mg tablet RxNorm: 717778 1 Tablet(s) PO daily No Start Date Active warfarin 5 mg tablet RxNorm: 009753 1 Tablet(s) PO daily No Start Date Active Aspirin Childrens 81 mg chewable tablet RxNorm: 518979 1 Tablet(s) PO daily No Start Date Active amiodarone 200 mg tablet RxNorm: 374624 1 Tablet(s) PO daily No Start Date Active vitamin E (dl, acetate) 1,000 unit capsule RxNorm: 974737 1 Capsule(s) PO daily No Start Date Active atorvastatin 80 mg tablet RxNorm: 159347 1 Tablet(s) PO daily No Start Date Active Fish Oil 120 mg-180 mg capsule RxNorm: 039828 1 Capsule(s) PO BID No Start Date 10/30/2017 Inactive metoprolol tartrate 50 mg tablet RxNorm: 346472 1 Tablet(s) PO daily No Start Date 06/13/2015 Inactive Zetia 10 mg tablet RxNorm: 203148 1 Tablet(s) PO daily No Start Date 10/17/2015 Inactive ramipril 5 mg capsule RxNorm: 003827 1 Capsule(s) PO daily No Start Date 03/24/2017 Inactive Tessalon Perles 100 mg capsule RxNorm: 348782 1 Capsule(s) PO TID as needed No Start Date 12/25/2016 Inactive omeprazole 20 mg capsule,delayed release RxNorm: 833904 1 Capsule(s) PO daily No Start Date 05/28/2015 Inactive Zithromax Z-Carlo 250 mg tablet RxNorm: 880558 2 Tablet(s) PO on 1 st day then 1 daily x 4 days ZPACK X 1 No Start Date 01/14/2019 Inactive Trilipix 135 mg capsule,delayed release RxNorm: 412285 1 Capsule(s) PO daily No Start Date 06/16/2018 Inactive Centrum Silver tablet RxNorm: 1 Tablet(s) PO daily No Start Date 10/30/2017 Inactive Medication Administered Medication Codes Instructions Start Date Status Kenalog 40 mg/mL suspension for injection RxNorm: 5518027 Milliliter 01/21/2017 No longer Active ceftriaxone 500 mg solution for injection RxNorm: 0024215 12/30/2016 No longer Active ceftriaxone 500 mg solution for injection RxNorm: 8135637 06/24/2016 No longer Active Immunizations Vaccine Codes [...] Code Item Item Code Result Date Pt Ysg0593 PT 16.6 seconds 02/05/2019 Pt Mbz0269 INR 1.4 02/05/2019 Pt Rul7001 Low Intensity - 1.5-2.0 02/05/2019 Pt Cqe4584 Mod intensity - 2.0-3.0 02/05/2019 Pt Get7557 Hi intensity - 3.0-4.0 02/05/2019 Pt Pku9330 PT 39.6 seconds 02/01/2019 Pt Wiv3219 INR 4.1 02/01/2019 Pt Ivn2658 Low Intensity - 1.5-2.0 02/01/2019 Pt Nrf9746 Mod intensity - 2.0-3.0 02/01/2019 Pt Pkf2890 Hi intensity - 3.0-4.0 02/01/2019 Pt Ear9800 PT 31.9 seconds 01/20/2019 Pt Uyd2273 INR 3.1 01/20/2019 Pt Wmn6719 Low Intensity - 1.5-2.0 01/20/2019 Pt Dup5938 Mod intensity - 2.0-3.0 01/20/2019 Pt Ikt4985 Hi intensity - 3.0-4.0 01/20/2019 Pt Qfu0203 PT 21.0 seconds 01/12/2019 Pt Axp0459 INR 1.9 01/12/2019 Pt Fcr6214 Low Intensity - 1.5-2.0 01/12/2019 Pt Nkk0108 Mod intensity - 2.0-3.0 01/12/2019 Pt Vwj7780 Hi intensity - 3.0-4.0 01/12/2019 Pt Lms7665 PT 31.8 seconds 01/07/2019 Pt Gdn6368 INR 3.1 01/07/2019 Pt Dla2239 Low Intensity - 1.5-2.0 01/07/2019 Pt Zdr7209 Mod intensity - 2.0-3.0 01/07/2019 Pt Xid6359 Hi intensity - 3.0-4.0 01/07/2019 Pt Vqw3277 PT 48.2 seconds 01/05/2019 Pt Vnf7320 INR 5.2 01/05/2019 Pt Hqh1054 Low Intensity - 1.5-2.0 01/05/2019 Pt Xqc3178 Mod intensity - 2.0-3.0 01/05/2019 Pt Hsp0382 Hi intensity - 3.0-4.0 01/05/2019 Pt Yus4579 PT 17.6 seconds 12/25/2018 Pt Voa1892 INR 1.5 12/25/2018 Pt Uxo1490 Low Intensity - 1.5-2.0 12/25/2018 Pt Pdp3252 Mod intensity - 2.0-3.0 12/25/2018 Pt Nyu8191 Hi intensity - 3.0-4.0 12/25/2018 Cbc With [...] 30.0 pg 12/10/2018 Cbc With Differential Ord2 [place]% 10.5 % 12/10/2018 Cbc With Differential Ord2 [...] 2.09 K/ul 12/10/2018 Cbc With Differential Ord2 [place] ABS# 0.8 K/ul 12/10/2018 Cbc With Differential Ord2 Eos ABS# 0.4 K/ul 12/10/2018 Cbc With Differential Ord2 Baso ABS# 0.0 K/ul 12/10/2018 Uric Acid Ord77 Uric A 4.6 mg/dL 12/10/2018 Random Urine Protein/Creatinine Ratio Hwq3290 U Prot 9.0 mg/dl 12/10/2018 Random Urine Protein/Creatinine Ratio Drk5551 U CREAT 126.0 mg/dL 12/10/2018 Random Urine Protein/Creatinine Ratio Toz6259 R MTP/Creat Ratio 0.07 12/10/2018 Ferritin Ord22 FERRITIN 47.9 ng/mL 12/10/2018 Renal Omz150 NA 142 mEq/L 12/10/2018 Renal Rab472 K 4.3 mEq/L 12/10/2018 Renal Jvg767 CL 106 mEq/L 12/10/2018 Renal Shn350 CO2 30.0 mEq/L 12/10/2018 Renal Xrn520 ANION GAP 10 12/10/2018 Renal Fqf246 Osmo 286 mOsmo 12/10/2018 Renal Jsd522 GLUCOSE 105 mg/dL 12/10/2018 Renal Zkw358 BUN 20 mg/dL 12/10/2018 Renal Bah775 Creat 1.4 mg/dL 12/10/2018 Renal Xhx932 eGFR 52 ml/min/1.73m2 12/10/2018 Renal Fto597 B/C Ratio 14.1 Ratio 12/10/2018 Renal Vps398 CALCIUM 9.7 mg/dL 12/10/2018 Renal Cdi975 PHOS 3.3 mg/dL 12/10/2018 Renal Tif621 ALBUMIN 4.0 g/dL 12/10/2018 Urinalysis Ord28 U-Color [...] 17.8 % 12/10/2018 Vitamin D 25 Oh Zvl6104 VITAMIN D, 25 HYDROXY 27.29 ng/mL 12/10/2018 Pt Tam1439 PT 23.1 seconds 11/05/2018 Pt Acx0388 INR 2.1 11/05/2018 Pt Res8853 Low Intensity - 1.5-2.0 11/05/2018 Pt Ivz0803 Mod intensity - 2.0-3.0 11/05/2018 Pt Zbb7390 Hi intensity - 3.0-4.0 11/05/2018 Pt Ezx9733 PT 29.8 seconds 08/17/2018 Pt Pcp4499 INR 2.8 08/17/2018 Pt Cgr2613 Low Intensity - 1.5-2.0 08/17/2018 Pt Xut4707 Mod intensity - 2.0-3.0 08/17/2018 Pt Yhe3053 Hi intensity - 3.0-4.0 08/17/2018 Pt Wpc9574 PT 27.7 seconds 05/18/2018 Pt Gom6970 INR 2.6 05/18/2018 Pt Wki1361 Low Intensity - 1.5-2.0 05/18/2018 Pt Fwh3373 Mod intensity - 2.0-3.0 05/18/2018 Pt Gjh9255 Hi intensity - 3.0-4.0 05/18/2018 Uric Acid [...] 30.9 pg 05/18/2018 Cbc With Differential Ord2 [place]% 13.8 % 05/18/2018 Cbc With Differential Ord2 [...] 1.94 K/ul 05/18/2018 Cbc With Differential Ord2 [place] ABS# 0.9 K/ul 05/18/2018 Cbc With Differential Ord2 Eos ABS# 0.4 K/ul 05/18/2018 Cbc With Differential Ord2 Baso ABS# 0.0 K/ul 05/18/2018 Random Urine Protein/Creatinine Ratio Epj4729 U Prot 7.0 mg/dl 05/18/2018 Random Urine Protein/Creatinine Ratio Gkh2004 U CREAT 75.0 mg/dL 05/18/2018 Random Urine Protein/Creatinine Ratio Vmu1115 R MTP/Creat Ratio 0.09 05/18/2018 Vitamin D 25 Oh Xmo0772 VITAMIN D, 25 HYDROXY 27.40 ng/mL 05/18/2018 Tibc Ord40 Iron 68 ug/dl 05/18/2018 Tibc Ord40 UIBC 308 ug/dL 05/18/2018 Tibc Ord40 TIBC 376 ug/dL 05/18/2018 Tibc Ord40 Fe-%Sat 18.1 % 05/18/2018 Parathyroid Hormone Owz202 PTH 36.20 pg/ml 05/18/2018 Urinalysis Ord28 U-Color [...] hours from collection if refrigerated) 05/18/2018 Renal Vge834 NA 141 mEq/L 05/18/2018 Renal Lsa910 K 4.0 mEq/L 05/18/2018 Renal Dxq587 CL 107 mEq/L 05/18/2018 Renal Gxj220 CO2 27.0 mEq/L 05/18/2018 Renal Oce437 ANION GAP 11 05/18/2018 Renal Uab604 Osmo 282 mOsmo 05/18/2018 Renal Axv365 GLUCOSE 83 mg/dL 05/18/2018 Renal Whr574 BUN 18 mg/dL 05/18/2018 Renal Jft720 Creat 1.4 mg/dL 05/18/2018 Renal Ikl470 eGFR 55 ml/min/1.73m2 05/18/2018 Renal Mnl977 B/C Ratio 13.3 Ratio 05/18/2018 Renal Yij838 CALCIUM 9.0 mg/dL 05/18/2018 Renal Nxm085 PHOS 2.9 mg/dL 05/18/2018 Renal Wkp597 ALBUMIN 4.0 g/dL 05/18/2018 Ferritin Ord22 FERRITIN [...] Metabolic Ord15 CALCIUM 9.2 mg/dL 03/23/2018 Pt Aaf4951 PT 29.0 seconds 03/13/2018 Pt Ngl8008 INR 2.7 03/13/2018 Pt Rfr8095 Low Intensity - 1.5-2.0 03/13/2018 Pt Hrp5456 Mod intensity - 2.0-3.0 03/13/2018 Pt Ptk3111 Hi intensity - 3.0-4.0 03/13/2018 Pt Dgm2451 PT 31.6 seconds 03/04/2018 Pt Jub5468 INR 3.0 03/04/2018 Pt Rhd4391 Low Intensity - 1.5-2.0 03/04/2018 Pt Lih3416 Mod intensity - 2.0-3.0 03/04/2018 Pt Ssh3123 Hi intensity - 3.0-4.0 03/04/2018 Pt Mbl4317 PT 33.3 seconds 01/29/2018 Pt Zxq7804 INR 3.2 01/29/2018 Pt Loh7907 Low Intensity - 1.5-2.0 01/29/2018 Pt Oqd8541 Mod intensity - 2.0-3.0 01/29/2018 Pt Bnk3393 Hi intensity - 3.0-4.0 01/29/2018 Pt Jmm8355 PT 26.1 seconds 01/21/2018 Pt Rjd2406 INR 2.4 01/21/2018 Pt Pqt5807 Low Intensity - 1.5-2.0 01/21/2018 Pt Mtw1343 Mod intensity - 2.0-3.0 01/21/2018 Pt Fyh2458 Hi intensity - 3.0-4.0 01/21/2018 Pt Hzy2909 PT 35.7 seconds 01/09/2018 Pt Bca8551 INR 3.5 01/09/2018 Pt Uiy3060 Low Intensity - 1.5-2.0 01/09/2018 Pt Lgp2129 Mod intensity - 2.0-3.0 01/09/2018 Pt Xfb8381 Hi intensity - 3.0-4.0 01/09/2018 Pt Ixj2946 PT 23.8 seconds 12/04/2017 Pt Jao4141 INR 2.1 12/04/2017 Pt Zai4781 Low Intensity - 1.5-2.0 12/04/2017 Pt Edy7132 Mod intensity - 2.0-3.0 12/04/2017 Pt Yxp2418 Hi intensity - 3.0-4.0 12/04/2017 Pt Daz2693 PT 32.3 seconds 11/12/2017 Pt Bax7801 INR 3.1 11/12/2017 Pt Ahb9167 Low Intensity - 1.5-2.0 11/12/2017 Pt Rgd9317 Mod intensity - 2.0-3.0 11/12/2017 Pt Jpw3850 Hi intensity - 3.0-4.0 11/12/2017 Urinalysis Ord28 [...] hours from collection if refrigerated) 10/20/2017 Pt Uck4284 PT 16.6 seconds 10/20/2017 Pt Uav9755 INR 1.4 10/20/2017 Pt Xol2288 Low Intensity - 1.5-2.0 10/20/2017 Pt Ptb0733 Mod intensity - 2.0-3.0 10/20/2017 Pt Hvj5051 Hi intensity - 3.0-4.0 10/20/2017 Renal Lvy474 NA 142 mEq/L 10/20/2017 Renal Yrk606 K 4.5 mEq/L 10/20/2017 Renal Qxd554 CL 107 mEq/L 10/20/2017 Renal Hqo875 CO2 28.0 mEq/L 10/20/2017 Renal Jvd193 ANION GAP 12 10/20/2017 Renal Lbv494 Osmo 288 mOsmo 10/20/2017 Renal Aec195 GLUCOSE 96 mg/dL 10/20/2017 Renal Qcq926 BUN 27 mg/dL 10/20/2017 Renal Nqn671 Creat 1.6 mg/dL 10/20/2017 Renal Gip466 eGFR 46 ml/min/1.73m2 10/20/2017 Renal Neo213 B/C Ratio 17.2 Ratio 10/20/2017 Renal Nre950 CALCIUM 9.4 mg/dL 10/20/2017 Renal Bmb369 PHOS 3.0 mg/dL 10/20/2017 Renal Gqn489 ALBUMIN 4.2 g/dL 10/20/2017 Pt Omp9415 PT 31.2 seconds 10/17/2017 Pt Vgu8126 INR 3.0 10/17/2017 Pt Hkg8812 Low Intensity - 1.5-2.0 10/17/2017 Pt Knf5111 Mod intensity - 2.0-3.0 10/17/2017 Pt Stq0563 Hi intensity - 3.0-4.0 10/17/2017 Comp Metabolic Sxf638 NA 139 mEq/L 05/08/2017 Comp Metabolic Hee984 K 4.1 mEq/L 05/08/2017 Comp Metabolic Mzd880 CL 103 mEq/L 05/08/2017 Comp Metabolic Pmj372 CO2 28.0 mEq/L 05/08/2017 Comp Metabolic Rga271 ANION GAP 12 05/08/2017 Comp Metabolic Ucg793 GLUCOSE 75 mg/dL 05/08/2017 Comp Metabolic Dvi651 Creat 1.3 mg/dL 05/08/2017 Comp Metabolic Eyi768 eGFR 55 ml/min/1.73m2 05/08/2017 Comp Metabolic Njy739 BUN 20 mg/dL 05/08/2017 Comp Metabolic Psk368 B/C Ratio 14.9 Ratio 05/08/2017 Comp Metabolic Wvd239 CALCIUM 8.8 mg/dL 05/08/2017 Comp Metabolic Qvf716 ALK PHOS 51 U/L 05/08/2017 Comp Metabolic Ypn877 AST(SGOT) 30 U/L 05/08/2017 Comp Metabolic Ohr587 ALT(SGPT) 31 U/L 05/08/2017 Comp Metabolic Zcd566 BILI T 0.9 mg/dL 05/08/2017 Comp Metabolic Cok271 ALBUMIN 4.0 g/dL 05/08/2017 Comp Metabolic Eor339 TPRO 6.5 g/dL 05/08/2017 Comp Metabolic Xhl441 GLOB 2.6 g/dL 05/08/2017 Comp Metabolic Tks916 A/G Ratio 1.5 Ratio 05/08/2017 Comp Metabolic Amk446 Osmo 279 mOsmo 05/08/2017 Cbc With Differential [...] 31.5 pg 05/08/2017 Cbc With Differential Ord2 [place]% 13.5 % 05/08/2017 Cbc With Differential Ord2 [...] 1.29 K/ul 05/08/2017 Cbc With Differential Ord2 [place] ABS# 1.1 K/ul 05/08/2017 Cbc With Differential Ord2 Eos ABS# 0.2 K/ul 05/08/2017 Cbc With Differential Ord2 Baso ABS# 0.0 K/ul 05/08/2017 Pt Zcy4254 PT 22.7 seconds 11/22/2016 Pt Jko9229 INR 2.1 11/22/2016 Pt Eqb2273 Low Intensity - 1.5-2.0 11/22/2016 Pt Ekg0248 Mod intensity - 2.0-3.0 11/22/2016 Pt Gdu2126 Hi intensity - 3.0-4.0 11/22/2016 Pt Rug5873 PT 24.4 seconds 10/25/2016 Pt Bby2323 INR 2.3 10/25/2016 Pt Res5509 Low Intensity - 1.5-2.0 10/25/2016 Pt Yow9274 Mod intensity - 2.0-3.0 10/25/2016 Pt Nys3283 Hi intensity - 3.0-4.0 10/25/2016 Pt Rgm9912 PT 23.5 seconds 09/04/2016 Pt Vie8545 INR 2.2 09/04/2016 Pt Vsf1566 Low Intensity - 1.5-2.0 09/04/2016 Pt Lzz4889 Mod intensity - 2.0-3.0 09/04/2016 Pt Wtm3937 Hi intensity - 3.0-4.0 09/04/2016 Pt Bnn5346 PT 26.1 seconds 07/09/2016 Pt Ztm2829 INR 2.6 07/09/2016 Pt Ocm7844 Low Intensity - 1.5-2.0 07/09/2016 Pt Ygi5801 Mod intensity - 2.0-3.0 07/09/2016 Pt Jif4637 Hi intensity - 3.0-4.0 07/09/2016 Pt Tkt6510 PT 19.4 seconds 06/24/2016 Pt Jtn4032 INR 1.7 06/24/2016 Pt Pcx0715 Low Intensity - 1.5-2.0 06/24/2016 Pt Xmb1677 Mod intensity - 2.0-3.0 06/24/2016 Pt Txs0517 Hi intensity - 3.0-4.0 06/24/2016 Pt Krx9529 PT 28.9 seconds 04/26/2016 Pt Qvu4679 INR 2.9 04/26/2016 Pt Rcv2699 Low Intensity - 1.5-2.0 04/26/2016 Pt Odr5131 Mod intensity - 2.0-3.0 04/26/2016 Pt Zwd1810 Hi intensity - 3.0-4.0 04/26/2016 Tsh Ord6 hTSH II 1.21 uIU/mL 02/29/2016 Pt Hjs5714 PT 21.8 seconds 02/29/2016 Pt Qdt5907 INR 2.0 02/29/2016 Pt Fjw5711 Low Intensity - 1.5-2.0 02/29/2016 Pt Jld9015 Mod intensity - 2.0-3.0 02/29/2016 Pt Zln1713 Hi intensity - 3.0-4.0 02/29/2016 Lipid Ord30 [...] Ord2 RDW 16.2 % 06/30/2015 Comp Metabolic Kcs094 NA 138 mEq/L 06/30/2015 Comp Metabolic Wvn327 K 4.8 mEq/L 06/30/2015 Comp Metabolic Cqe469 CL 107 mEq/L 06/30/2015 Comp Metabolic Mnz141 CO2 27.0 mEq/L 06/30/2015 Comp Metabolic Pgy529 ANION GAP 9 06/30/2015 Comp Metabolic Ttw378 GLUCOSE 98 mg/dL 06/30/2015 Comp Metabolic Oyu801 Creat 1.8 mg/dL 06/30/2015 Comp Metabolic Ugf357 eGFR 40 ml/min/1.73m2 06/30/2015 Comp Metabolic Mrh912 BUN 20 mg/dL 06/30/2015 Comp Metabolic Qhd620 B/C Ratio 11.1 Ratio 06/30/2015 Comp Metabolic Gnl998 CALCIUM 9.1 mg/dL 06/30/2015 Comp Metabolic Zfn194 ALK PHOS 39 U/L 06/30/2015 Comp Metabolic Wvf862 AST(SGOT) 21 U/L 06/30/2015 Comp Metabolic Hql371 ALT(SGPT) 23 U/L 06/30/2015 Comp Metabolic Hbn318 BILI T 0.5 mg/dL 06/30/2015 Comp Metabolic Uwk626 ALBUMIN 4.0 g/dL 06/30/2015 Comp Metabolic Cni501 TPRO 6.6 g/dL 06/30/2015 Comp Metabolic Pyl991 GLOB 2.6 g/dL 06/30/2015 Comp Metabolic Fqi333 A/G Ratio 1.5 Ratio 06/30/2015 Comp Metabolic Xda442 Osmo 278 mOsmo 06/30/2015 Pt Wbr0869 PT 26.1 seconds 06/30/2015 Pt Kon9709 INR 2.5 06/30/2015 Pt Qqk1490 Low Intensity - 1.5-2.0 06/30/2015 Pt Xmr0327 Mod intensity - 2.0-3.0 06/30/2015 Pt Sco1871 Hi intensity - 3.0-4.0 06/30/2015 Review of [...] Effective Dates Notes Full Exam - General 1995 Constitutional general appearance Development: well developed 12/31/2018 [...] Procedure Codes Date DESTRUCT PREMALG LESION CPT-4: 75407 12/31/2018 DESTRUCT PREMALG LES 2-14 CPT-4: 22057 12/31/2018 OCCULT BLOOD FECES CPT- 4: 12094 04/08/2018 PPPS, SUBSEQ VISIT CPT- 4: G0439 04/03/2018 PPPS, SUBSEQ VISIT CPT- 4: G0439 10/31/2017 PRESCRIP TRANSMIT VIA ERX SY CPT-4: G8553 09/22/2017 THER/PROPH/DIAG INJ SC/IM CPT-4: 73255 01/21/2017 TRIAMCINOLONE ACET INJ NOS CPT-4: J3301 01/21/2017 THER/PROPH/DIAG INJ SC/IM CPT-4: 84398 12/30/2016 ROCEPHIN, PER 250 MG CPT- 4: J0696 12/30/2016 PPPS, SUBSEQ VISIT CPT- 4: G0439 10/25/2016 ROCEPHIN, PER 250 MG CPT- 4: J0696 06/24/2016 THER/PROPH/DIAG INJ SC/IM CPT-4: 35878 06/24/2016 Vital Signs Date Vital 12/31/2018 Blood Pressure 1: 140/80 Code: 8480-6 BMI: 29.0 Code: 51161-1 Heart Rate 1: 86 bpm Height: 5'8" SpO2: 97% Weight: 191 lbs 12/23/2018 Blood Pressure 1: 140/68 Code: 8480-6 BMI: 29.3 Code: 29660-3 Heart Rate 1: 70 bpm Height: 5'8" SpO2: 97% Weight: 193 lbs 04/03/2018 Blood Pressure 1: 128/72 Code: 8480-6 BMI: 29.8 Code: 62118-0 Heart Rate 1: 60 bpm Height: 5'8" SpO2: 96% Weight: 196 lbs 03/31/2018 Blood Pressure 1: 128/76 Code: 8480-6 BMI: 29.8 Code: 23123-5 Heart Rate 1: 56 bpm Height: 5'8" SpO2: 98% Weight: 196 lbs 11/26/2017 Blood Pressure 1: 156/76 Code: 8480-6 BMI: 29.6 Code: 96416-7 Heart Rate 1: 57 bpm Height: 5'8" SpO2: 98% Weight: 195 lbs 10/31/2017 Blood Pressure 1: 136/74 Code: 8480-6 BMI: 29.5 Code: 27857-2 Heart Rate 1: 56 bpm Height: 5'8" SpO2: 95% Waist Measure (cm): 91 cm Weight: 194 lbs 10/07/2017 Blood Pressure 1: 136/72 Code: 8480-6 BMI: 30.3 Code: 18406-7 Heart Rate 1: 58 bpm Height: 5'8" SpO2: 96% Weight: 199 lbs 09/22/2017 Blood Pressure 1: 138/78 Code: 8480-6 BMI: 30.4 Code: 06802-4 Heart Rate 1: 60 bpm Height: 5'8" SpO2: 98% Temperature: 36.6 (C) / 97.9 (F) Weight: 200 lbs 05/08/2017 Blood Pressure 1: 128/80 Code: 8480-6 BMI: 30.0 Code: 68015-8 Heart Rate 1: 75 bpm Height: 5'8" SpO2: 98% Weight: 197 lbs 03/25/2017 Blood Pressure 1: 150/80 Code: 8480-6 BMI: 30.1 Code: 48938-4 Heart Rate 1: 53 bpm Height: 5'8" SpO2: 98% Weight: 198 lbs 01/21/2017 Blood Pressure 1: 156/88 Code: 8480-6 BMI: 29.8 Code: 46301-1 Heart Rate 1: 95 bpm Height: 5'8" SpO2: 98% Temperature: 36.9 (C) / 98.4 (F) Weight: 196 lbs 12/30/2016 Blood Pressure 1: 122/74 Code: 8480-6 BMI: 29.8 Code: 35055-6 Heart Rate 1: 60 bpm Height: 5'8" SpO2: 96% Temperature: 37.1 (C) / 98.8 (F) Weight: 196 lbs 12/26/2016 Blood Pressure 1: 142/74 Code: 8480-6 BMI: 29.8 Code: 86268-7 Heart Rate 1: 58 bpm Height: 5'8" SpO2: 96% Temperature: 36.7 (C) / 98.0 (F) Weight: 196 lbs 12/02/2016 Blood Pressure 1: 128/78 Code: 8480-6 BMI: 30.3 Code: 56393-1 Heart Rate 1: 49 bpm Height: 5'8" SpO2: 98% Temperature: 36.5 (C) / 97.7 (F) Weight: 199 lbs 11/21/2016 Blood Pressure 1: 130/68 Code: 8480-6 BMI: 30.3 Code: 72308-8 Heart Rate 1: 54 bpm Height: 5'8" SpO2: 98% Weight: 199 lbs 10/25/2016 Blood Pressure 1: 150/92 Code: 8480-6 BMI: 29.8 Code: 13214-0 Heart Rate 1: 54 bpm Height: 5'8" SpO2: 97% Waist Measure (cm): 97 cm Weight: 196 lbs 10/23/2016 Blood Pressure 1: 150/92 Code: 8480-6 BMI: 29.9 Code: 62574-2 Heart Rate 1: 54 bpm Height: 5'8" SpO2: 98% Weight: 196 lbs 8 oz 07/29/2016 Blood Pressure 1: 144/72 Code: 8480-6 BMI: 30.3 Code: 74673-2 Heart Rate 1: 54 bpm Height: 5'8" SpO2: 98% Weight: 199 lbs 06/24/2016 Blood Pressure 1: 132/78 Code: 8480-6 BMI: 29.5 Code: 68681-0 Heart Rate 1: 59 bpm Height: 5'8" SpO2: 94% Weight: 194 lbs 02/21/2016 Blood Pressure 1: 138/84 Code: 8480-6 BMI: 30.3 Code: 14832-8 Heart Rate 1: 64 bpm Height: 5'8" SpO2: 95% Weight: 199 lbs 10/18/2015 Blood Pressure 1: 154/84 Code: 8480-6 Blood Pressure 1: 138/72 Code: 8480-6 BMI: 30.4 Code: 26268-3 Heart Rate 1: 68 bpm Height: 5'8" SpO2: 97% Weight: 200 lbs 05/02/2015 Blood Pressure 1: 114/64 Code: 8480-6 BMI: 29.0 Code: 49271-4 Heart Rate 1: 62 bpm Height: 5'8" [...] data Encounters Encounter Performer Location Codes Date [id number] EST. PATIENT, LEVEL III Diagnosis: Diverticulitis of small intestine with perforation and abscess without bleeding[ICD10: K57.00] [facility] CPT-4: 96894 12/23/2018 ([id number]) 99703 EST. PATIENT, LEVEL III Diagnosis: Low back pain[ICD10: M54.5] Diagnosis: Muscle spasm of back[ICD10: M62.830] [facility] CPT-4: 64375 03/31/2018 ([id number]) 30524 EST. PATIENT, LEVEL III Diagnosis: Actinic keratosis[ICD10: L57.0] Diagnosis: Other hypertrophic disorders of the skin[ICD10: L91.8] Amanda Husain MD, [facility] CPT-4: 05515 11/26/2017 ([id number]) 40508 EST. PATIENT, LEVEL IV Diagnosis: Essential (primary) hypertension[ICD10: I10] Diagnosis: Mild cognitive impairment, so stated[ICD10: G31.84] Amanda Husain MD [facility] CPT-4: 99011 10/07/2017 ([id number]) 93313 EST. PATIENT, LEVEL III Diagnosis: Pneumonia due to other streptococci[ICD10: J15.4] Diagnosis: Cough[ICD10: R05] Amanda Husain MD, [facility] CPT-4: 01898 09/22/2017 86021 EST. PATIENT, LEVEL IV Diagnosis: Left lower quadrant pain[ICD10: R10.32] Diagnosis: Other fatigue[ICD10: R53.83] Gabrielle Husain MD, [facility] CPT-4: 33123 05/08/2017 ([id number]) 89059 EST. PATIENT, LEVEL III Diagnosis: Essential (primary) hypertension[ICD10: I10] Amanda Husain MD, [facility] CPT-4: 84407 03/25/2017 ([id number]) 89305 EST. PATIENT, LEVEL III Diagnosis: Cough[ICD10: R05] Diagnosis: Allergic rhinitis due to pollen[ICD10: J30.1] Leidy Husain MD [facility] CPT-4: 87224 01/21/2017 80821 EST. PATIENT, LEVEL III Diagnosis: Other allergic rhinitis[ICD10: J30.89] Diagnosis: Cough[ICD10: R05] Gabrielle Husain MD, [facility] CPT-4: 50937 12/30/2016 ([id number]) 86247 EST. PATIENT, LEVEL III Diagnosis: Cough[ICD10: R05] Diagnosis: Pneumonia, unspecified organism[ICD10: J18.9] Leidy Husain MD, [facility] CPT-4: 12748 12/26/2016 ([id number]) 28028 EST. PATIENT, LEVEL III Diagnosis: Pneumonia due to other streptococci[ICD10: J15.4] Diagnosis: Cough[ICD10: R05] Amanda Husain MD [facility] CPT-4: 01742 12/02/2016 ([id number]) 52047 EST. PATIENT, LEVEL III Diagnosis: Essential (primary) hypertension[ICD10: I10] Amanda Husain MD [facility] CPT-4: 74739 11/21/2016 ([id number]) 94703 EST. PATIENT, LEVEL IV Diagnosis: Essential (primary) hypertension[ICD10: I10] Diagnosis: Mixed hyperlipidemia[ICD10: E78.2] Amanda Husain MD [facility] CPT- 4: 50416 10/23/2016 01450 EST. PATIENT, LEVEL IV Diagnosis: Other allergic rhinitis[ICD10: J30.89] Diagnosis: Cough[ICD10: R05] Gabrielle Husain MD [facility] CPT-4: 67048 07/29/2016 ([id number]) Miscellaneous no charge Diagnosis: Pneumonia, unspecified organism[ICD10: J18.9] Gabrielle Husain MD [facility] CPT-4: 65953 06/27/2016 ([id number]) 09306 EST. PATIENT, LEVEL IV Diagnosis: Essential (primary) hypertension[ICD10: I10] Diagnosis: Pneumonia, unspecified organism[ICD10: J18.9] Diagnosis: Cough[ICD10: R05] Diagnosis: Mixed hyperlipidemia[ICD10: E78.2] Amanda Husain MD [facility] CPT- 4: 10760 06/24/2016 ([id number]) 38175 EST. PATIENT, LEVEL IV Diagnosis: Mixed hyperlipidemia[ICD10: E78.2] Diagnosis: Essential (primary) hypertension[ICD10: I10] Diagnosis: Gastro-esophageal reflux disease without esophagitis[ICD10: K21.9] Amanda Husain MD, [facility] CPT-4: 98232 02/21/2016 ([id number]) 81516 EST. 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 Call if not improved after thorough healing - apply neosporin to skin lesions. 12/31/2018 Appointment: Amanda Husain WPtel: [facility]5 [facility] (30 min) Complex 12/31/2018 Patient Education: Patient Medication Summary Completed 12/31/2018 Visit Plan: Diverticulitis - rx for antibiotic sent to pt's pharmacy - pt advised to avoid seeds, nuts, popcorn, or any other food which has been proven to upset the pt's stomach. 12/23/2018 Appointment: Gabrielle Corona WPtel: [phone] [facility] (15 min) Moderate 12/23/2018 Patient Education: Patient Medication Summary Completed 12/23/2018 Appointment: Gabrielle Corona WPtel: [facility]5 [facility] (30 min) Complex 12/16/2018 Appointment: Lab [...] not improve. 03/31/2018 Appointment: Leidy Angulo WPtel: [facility] (15 min) Moderate 03/31/2018 Patient Education: Patient Medication Summary Completed 03/31/2018 Visit Plan: Wound Instructions - Pt was instructed to keep the wound clean, wash with antibacterial soap, use triple antibiotic ointment, call if redness, pustular drainage, or any other acute concerns. 11/26/2017 Appointment: Amanda Husain WPtel: [facility] Surgical Procedure 11/26/2017 Patient Education: Patient Medication [...] care surrogate. 10/31/2017 Appointment: Leidy Angulo WPtel: [facility]8 [place] [phone] [facility] - Annual Wellness Visit 10/31/2017 Patient [...] loss. 10/07/2017 [facility]ment: [phone] ([facility] min) Complex 10/07/2017 Patient Education: [...] concerns. 05/08/2017 Appointment: [phone] ([facility] min) Complex 05/08/2017 Patient Education: Patient [...] daily. 03/25/2017 Appointment: Amanda Husain WPtel: [phone] [facility] (15 min) Moderate 03/25/2017 Patient Education: Patient Medication Summary Completed 03/25/2017 Appointment: Leidy Angulo WPtel: [facility]0 [address] [place] (15 min) Moderate 01/31/2017 Visit Plan: URI/Allergies - Pt advised to increase fluids, vitamin C. Discussed natural and expected course of this diagnosis and need to alert me if symptoms do not follow expected course, or if any worse. RX sent to patient's pharmacy. 01/21/2017 Appointment: Leidy Angulo WPtel: [facility]9 [place] [phone] [place] (15 min) Moderate 01/21/2017 Patient Education: [...] the medication. 12/30/2016 Appointment: Leidy Angulo WPtel: [facility]0 [phone] [place] (15 min) Moderate 12/30/2016 Appointment: Gabrielle Corona WPtel: [facility]1 [place] [address] [place] (30 min) Complex 12/30/2016 Patient Education: [...] levaquin. 12/26/2016 Appointment: Leidy Angulo WPtel: [phone] [phone] (15 min) Moderate 12/26/2016 Patient Education: Patient [...] [phone] (15 min) Moderate 11/21/2016 Patient Education: [...] surrogate. 10/25/2016 Appointment: [facility]ulo [facility]el[phone] [facility] - Annual Wellness Visit 10/25/2016 Patient [...] medications. 10/23/2016 Appointment: Amanda Husain WPtel: [phone] [facility] (15 min) Moderate 10/23/2016 Patient Education: [...] concerns. 07/29/2016 Appointment: Gabrielle Corona WPtel: [phone] [facility] (15 min) Moderate 07/29/2016 Patient Education: Patient [...] to medications. 06/24/2016 Appointment: Amanda Husain WPtel: [address] [place], [place] [address] (15 min) Moderate 06/24/2016 Patient Education: Patient [...] not improving. 02/21/2016 Appointment: Amanda Husain WPtel: [address] [place], [place] [address] (15 min) Moderate 02/21/2016 Patient Education: Patient [...] Care Plan: COMPLETE CBC AUTOMATED LOINC : 87907-9 Ordered 05/02/2015 Care Plan: ASSAY OF TROPONIN [...] symptoms are not controlled with the medication. [employer] [place] or [employer] - take three times daily x 7 [...]
--- OUTSIDE RECORDS SUMMARY | 2019-05-19 11:09 | XMS REPORT | CCD ---
Author Author Amanda Celestin MD, [facility] Address [address] [place] [address] Phone Care Team Providers Care Speech Coach Name Role Phone PP Unavailable CCM Unavailable Summary Purpose Interface Exchange Insurance Providers Payer name Policy type / Coverage type Covered constitution party ID Effective Begin Date Effective End Date WPS Medicare Part B [id number] Unknown [employer] [id number] Unknown Family history Brother Diagnosis Age At [...] Unknown Retired 05/02/[address]: 3052346 Former smoker Quit in 1966 05/02/2015 Number [...] Instructions Zithromax Z-Carlo 250 mg tablet RxNorm: 398598 2 Tablet(s) PO on 1 st day then 1 daily x 4 days ZPACK X 1 01/15/2019 No Stop Date Active metronidazole 500 mg tablet RxNorm: 500657 1 Tablet(s) PO TID 12/23/2018 01/01/2019 Inactive omeprazole 20 mg capsule,delayed release RxNorm: 642901 TAKE 1 CAPSULE BY MOUTH ONCE DAILY 12/07/2018 No Stop Date Active metoprolol tartrate 25 mg tablet RxNorm: 195156 Tablet(s) TAKE 1 TABLET BY MOUTH TWICE DAILY 10/16/2018 No Stop Date Active metoprolol tartrate 25 mg tablet RxNorm: 918346 TAKE 1 TABLET BY MOUTH TWICE DAILY 07/13/2018 10/15/2018 Inactive Trilipix 135 mg capsule,delayed release RxNorm: 780593 1 Capsule(s) PO daily 06/17/2018 10/14/2018 Inactive ramipril 10 mg capsule RxNorm: 957533 TAKE ONE CAPSULE BY MOUTH ONCE DAILY 06/15/2018 No Stop Date Active omeprazole 20 mg capsule,delayed release RxNorm: 841599 Capsule(s) TAKE ONE CAPSULE BY MOUTH ONCE DAILY 06/03/2018 No Stop Date Active omeprazole 20 mg capsule,delayed release RxNorm: 350207 Capsule(s) TAKE ONE CAPSULE BY MOUTH ONCE DAILY 06/02/2018 06/02/2018 Inactive metoprolol tartrate 25 mg tablet RxNorm: 543703 TAKE ONE TABLET BY MOUTH TWICE DAILY 02/16/2018 07/12/2018 Inactive omeprazole 20 mg capsule,delayed release RxNorm: 873396 TAKE ONE CAPSULE BY MOUTH ONCE DAILY 01/05/2018 06/01/2018 Inactive metoprolol tartrate 25 mg tablet RxNorm: 357076 TAKE ONE TABLET BY MOUTH TWICE DAILY 10/27/2017 02/15/2018 Inactive azithromycin 250 mg tablet RxNorm: 651807 1 Tablet(s) PO UD 2 tabs on day #1, then 1 pill daily x 4 days 09/22/2017 11/25/2017 Inactive omeprazole 20 mg capsule,delayed release RxNorm: 904478 TAKE ONE CAPSULE BY MOUTH ONCE DAILY 06/16/2017 12/12/2017 Inactive metronidazole 500 mg tablet RxNorm: 350488 1 Tablet(s) PO TID 05/08/2017 05/14/2017 Inactive ramipril 10 mg capsule RxNorm: 265115 1 Capsule(s) PO daily 03/25/2017 03/19/2018 Inactive Kenalog 40 mg/mL suspension for injection RxNorm: 7918754 Milliliter(s) Inj 01/21/2017 01/21/2017 Inactive ceftriaxone 500 mg solution for injection RxNorm: 9864315 Inj 12/30/2016 12/30/2016 Inactive Phenergan with Codeine Syrup RxNorm: 5-10 Milliliter(s) PO Q6 PRN 12/26/2016 No Stop Date Active Levaquin 500 mg tablet RxNorm: 423296 1 Tablet(s) PO daily 12/26/2016 01/01/2017 Inactive Tessalon Perles 100 mg capsule RxNorm: 209096 1 Capsule(s) PO TID as needed 12/26/2016 01/04/2017 Inactive prednisone 20 mg tablet RxNorm: 120485 1 Tablet(s) PO BID 12/26/2016 12/30/2016 Inactive omeprazole 20 mg capsule,delayed release RxNorm: 688174 TAKE ONE CAPSULE BY MOUTH ONCE DAILY 12/16/2016 06/13/2017 Inactive cefdinir 300 mg capsule RxNorm: 628209 1 Capsule(s) PO BID 12/02/2016 12/08/2016 Inactive azithromycin 250 mg tablet RxNorm: 744583 Tablet(s) 2 tabs on day #1, then one tab PO daily x 4 more days 12/02/2016 12/25/2016 Inactive metoprolol tartrate 25 mg tablet RxNorm: 843564 1 Tablet(s) PO BID 10/23/2016 10/17/2017 Inactive metoprolol tartrate 25 mg tablet RxNorm: 603593 1 Tablet(s) PO BID 10/23/2016 10/22/2016 Inactive ceftriaxone 500 mg solution for injection RxNorm: 9502943 Inj 06/24/2016 06/24/2016 Inactive cefdinir 300 mg capsule RxNorm: 377700 1 Capsule(s) PO BID 06/24/2016 06/30/2016 Inactive omeprazole 20 mg capsule,delayed release RxNorm: 431649 TAKE ONE CAPSULE BY MOUTH DAILY 06/07/2016 12/03/2016 Inactive omeprazole 20 mg capsule,delayed release RxNorm: 640536 TAKE ONE CAPSULE BY MOUTH DAILY 01/29/2016 05/27/2016 Inactive metoprolol tartrate 50 mg tablet RxNorm: 712924 Tablet(s) TAKE ONE TABLET BY MOUTH DAILY 10/11/2015 10/10/2015 Inactive metoprolol tartrate 50 mg tablet RxNorm: 557858 TAKE ONE TABLET BY MOUTH DAILY 10/11/2015 10/22/2016 Inactive omeprazole 20 mg capsule,delayed release RxNorm: 531154 TAKE ONE CAPSULE BY MOUTH DAILY 08/28/2015 01/24/2016 Inactive metoprolol tartrate 50 mg tablet RxNorm: 504034 TAKE ONE TABLET BY MOUTH DAILY 08/11/2015 10/09/2015 Inactive metoprolol tartrate 50 mg tablet RxNorm: 152077 1 Tablet(s) PO daily 06/14/2015 08/10/2015 Inactive omeprazole 20 mg capsule,delayed release RxNorm: 302533 1 Capsule(s) PO daily 05/29/2015 08/26/2015 Inactive omeprazole 20 mg capsule,delayed release RxNorm: 660951 1 Capsule(s) PO daily 05/29/2015 05/28/2015 Inactive metronidazole 500 mg tablet RxNorm: 976486 1 Tablet(s) PO TID 05/02/2015 05/08/2015 Inactive finasteride 5 mg tablet RxNorm: 058624 1 Tablet(s) PO daily No Start Date Active warfarin 5 mg tablet RxNorm: 410336 1 Tablet(s) PO daily No Start Date Active Aspirin Childrens 81 mg chewable tablet RxNorm: 000101 1 Tablet(s) PO daily No Start Date Active amiodarone 200 mg tablet RxNorm: 809273 1 Tablet(s) PO daily No Start Date Active vitamin E (dl, acetate) 1,000 unit capsule RxNorm: 573968 1 Capsule(s) PO daily No Start Date Active atorvastatin 80 mg tablet RxNorm: 813373 1 Tablet(s) PO daily No Start Date Active Fish Oil 120 mg-180 mg capsule RxNorm: 265438 1 Capsule(s) PO BID No Start Date 10/30/2017 Inactive metoprolol tartrate 50 mg tablet RxNorm: 161828 1 Tablet(s) PO daily No Start Date 06/13/2015 Inactive Zetia 10 mg tablet RxNorm: 262639 1 Tablet(s) PO daily No Start Date 10/17/2015 Inactive ramipril 5 mg capsule RxNorm: 404000 1 Capsule(s) PO daily No Start Date 03/24/2017 Inactive Tessalon Perles 100 mg capsule RxNorm: 571365 1 Capsule(s) PO TID as needed No Start Date 12/25/2016 Inactive omeprazole 20 mg capsule,delayed release RxNorm: 680282 1 Capsule(s) PO daily No Start Date 05/28/2015 Inactive Zithromax Z-Carlo 250 mg tablet RxNorm: 610363 2 Tablet(s) PO on 1 st day then 1 daily x 4 days ZPACK X 1 No Start Date 01/14/2019 Inactive Trilipix 135 mg capsule,delayed release RxNorm: 181794 1 Capsule(s) PO daily No Start Date 06/16/2018 Inactive Centrum Silver tablet RxNorm: 1 Tablet(s) PO daily No Start Date 10/30/2017 Inactive Medication Administered Medication Codes Instructions Start Date Status Kenalog 40 mg/mL suspension for injection RxNorm: 6168120 Milliliter 01/21/2017 No longer Active ceftriaxone 500 mg solution for injection RxNorm: 2427279 12/30/2016 No longer Active ceftriaxone 500 mg solution for injection RxNorm: 4480417 06/24/2016 No longer Active Immunizations Vaccine Codes [...] Code Item Item Code Result Date Pt Tns7708 PT 39.6 seconds 02/01/2019 Pt Ztd1454 INR 4.1 02/01/2019 Pt Jxv0239 Low Intensity - 1.5-2.0 02/01/2019 Pt Qpk5637 Mod intensity - 2.0-3.0 02/01/2019 Pt Kei5669 Hi intensity - 3.0-4.0 02/01/2019 Pt Lko8803 PT 31.9 seconds 01/20/2019 Pt Wmd3396 INR 3.1 01/20/2019 Pt Oyt2400 Low Intensity - 1.5-2.0 01/20/2019 Pt Cls6744 Mod intensity - 2.0-3.0 01/20/2019 Pt Tpr3121 Hi intensity - 3.0-4.0 01/20/2019 Pt Ypw3241 PT 21.0 seconds 01/12/2019 Pt Myg0499 INR 1.9 01/12/2019 Pt Mth3656 Low Intensity - 1.5-2.0 01/12/2019 Pt Ukr8658 Mod intensity - 2.0-3.0 01/12/2019 Pt Gpx3799 Hi intensity - 3.0-4.0 01/12/2019 Pt Mux6134 PT 31.8 seconds 01/07/2019 Pt Gxf0676 INR 3.1 01/07/2019 Pt Rou6963 Low Intensity - 1.5-2.0 01/07/2019 Pt Anb4697 Mod intensity - 2.0-3.0 01/07/2019 Pt Grb8220 Hi intensity - 3.0-4.0 01/07/2019 Pt Jfr1677 PT 48.2 seconds 01/05/2019 Pt Rqe6052 INR 5.2 01/05/2019 Pt Vpm6449 Low Intensity - 1.5-2.0 01/05/2019 Pt Gla6099 Mod intensity - 2.0-3.0 01/05/2019 Pt Uel9017 Hi intensity - 3.0-4.0 01/05/2019 Pt Fxd2575 PT 17.6 seconds 12/25/2018 Pt Hnx1225 INR 1.5 12/25/2018 Pt Ydu5319 Low Intensity - 1.5-2.0 12/25/2018 Pt Ufw8849 Mod intensity - 2.0-3.0 12/25/2018 Pt Ebh3607 Hi intensity - 3.0-4.0 12/25/2018 Cbc With [...] 30.0 pg 12/10/2018 Cbc With Differential Ord2 Cobb% 10.5 % 12/10/2018 Cbc With Differential Ord2 [...] 2.09 K/ul 12/10/2018 Cbc With Differential Ord2 Cobb ABS# 0.8 K/ul 12/10/2018 Cbc With Differential Ord2 Eos ABS# 0.4 K/ul 12/10/2018 Cbc With Differential Ord2 Baso ABS# 0.0 K/ul 12/10/2018 Uric Acid Ord77 Uric A 4.6 mg/dL 12/10/2018 Random Urine Protein/Creatinine Ratio Ned8184 U Prot 9.0 mg/dl 12/10/2018 Random Urine Protein/Creatinine Ratio Qtb4090 U CREAT 126.0 mg/dL 12/10/2018 Random Urine Protein/Creatinine Ratio Vof0966 R MTP/Creat Ratio 0.07 12/10/2018 Ferritin Ord22 FERRITIN 47.9 ng/mL 12/10/2018 Renal Pxw807 NA 142 mEq/L 12/10/2018 Renal Ezj835 K 4.3 mEq/L 12/10/2018 Renal Pqm825 CL 106 mEq/L 12/10/2018 Renal Jmv797 CO2 30.0 mEq/L 12/10/2018 Renal Nhd847 ANION GAP 10 12/10/2018 Renal Pam416 Osmo 286 mOsmo 12/10/2018 Renal Qzs711 GLUCOSE 105 mg/dL 12/10/2018 Renal Dkh165 BUN 20 mg/dL 12/10/2018 Renal Oms016 Creat 1.4 mg/dL 12/10/2018 Renal Nva703 eGFR 52 ml/min/1.73m2 12/10/2018 Renal Lqp520 B/C Ratio 14.1 Ratio 12/10/2018 Renal Gbe483 CALCIUM 9.7 mg/dL 12/10/2018 Renal Acu304 PHOS 3.3 mg/dL 12/10/2018 Renal Tde299 ALBUMIN 4.0 g/dL 12/10/2018 Urinalysis Ord28 U-Color [...] 17.8 % 12/10/2018 Vitamin D 25 Oh Lwy0178 VITAMIN D, 25 HYDROXY 27.29 ng/mL 12/10/2018 Pt Cnz1561 PT 23.1 seconds 11/05/2018 Pt Taj5569 INR 2.1 11/05/2018 Pt Rhz1459 Low Intensity - 1.5-2.0 11/05/2018 Pt Lfj7410 Mod intensity - 2.0-3.0 11/05/2018 Pt Zdl2548 Hi intensity - 3.0-4.0 11/05/2018 Pt Xlq6174 PT 29.8 seconds 08/17/2018 Pt Rig2751 INR 2.8 08/17/2018 Pt Kxi3378 Low Intensity - 1.5-2.0 08/17/2018 Pt Vcn3932 Mod intensity - 2.0-3.0 08/17/2018 Pt Cib1099 Hi intensity - 3.0-4.0 08/17/2018 Pt Ghn3569 PT 27.7 seconds 05/18/2018 Pt Fxc8605 INR 2.6 05/18/2018 Pt Pef5440 Low Intensity - 1.5-2.0 05/18/2018 Pt Kec6976 Mod intensity - 2.0-3.0 05/18/2018 Pt Qpj7719 Hi intensity - 3.0-4.0 05/18/2018 Uric Acid [...] 30.9 pg 05/18/2018 Cbc With Differential Ord2 Cobb% 13.8 % 05/18/2018 Cbc With Differential Ord2 [...] 1.94 K/ul 05/18/2018 Cbc With Differential Ord2 Cobb ABS# 0.9 K/ul 05/18/2018 Cbc With Differential Ord2 Eos ABS# 0.4 K/ul 05/18/2018 Cbc With Differential Ord2 Baso ABS# 0.0 K/ul 05/18/2018 Random Urine Protein/Creatinine Ratio Aar2867 U Prot 7.0 mg/dl 05/18/2018 Random Urine Protein/Creatinine Ratio Poo5225 U CREAT 75.0 mg/dL 05/18/2018 Random Urine Protein/Creatinine Ratio Cfu6103 R MTP/Creat Ratio 0.09 05/18/2018 Vitamin D 25 Oh Gmj0402 VITAMIN D, 25 HYDROXY 27.40 ng/mL 05/18/2018 Tibc Ord40 Iron 68 ug/dl 05/18/2018 Tibc Ord40 UIBC 308 ug/dL 05/18/2018 Tibc Ord40 TIBC 376 ug/dL 05/18/2018 Tibc Ord40 Fe-%Sat 18.1 % 05/18/2018 Parathyroid Hormone Gzu134 PTH 36.20 pg/ml 05/18/2018 Urinalysis Ord28 U-Color [...] hours from collection if refrigerated) 05/18/2018 Renal Now301 NA 141 mEq/L 05/18/2018 Renal Fkg173 K 4.0 mEq/L 05/18/2018 Renal Fpu133 CL 107 mEq/L 05/18/2018 Renal Gho619 CO2 27.0 mEq/L 05/18/2018 Renal Qjh779 ANION GAP 11 05/18/2018 Renal Nnl698 Osmo 282 mOsmo 05/18/2018 Renal Mqy345 GLUCOSE 83 mg/dL 05/18/2018 Renal Dhc594 BUN 18 mg/dL 05/18/2018 Renal Yxj456 Creat 1.4 mg/dL 05/18/2018 Renal Amu760 eGFR 55 ml/min/1.73m2 05/18/2018 Renal Oqe923 B/C Ratio 13.3 Ratio 05/18/2018 Renal Bkh873 CALCIUM 9.0 mg/dL 05/18/2018 Renal Qdl617 PHOS 2.9 mg/dL 05/18/2018 Renal Rgb454 ALBUMIN 4.0 g/dL 05/18/2018 Ferritin Ord22 FERRITIN [...] Metabolic Ord15 CALCIUM 9.2 mg/dL 03/23/2018 Pt Hrj6140 PT 29.0 seconds 03/13/2018 Pt Rta3189 INR 2.7 03/13/2018 Pt Vlv4243 Low Intensity - 1.5-2.0 03/13/2018 Pt Ttm1816 Mod intensity - 2.0-3.0 03/13/2018 Pt Dyj0239 Hi intensity - 3.0-4.0 03/13/2018 Pt Ulu1915 PT 31.6 seconds 03/04/2018 Pt Oks4137 INR 3.0 03/04/2018 Pt Xhh6364 Low Intensity - 1.5-2.0 03/04/2018 Pt Ctw0079 Mod intensity - 2.0-3.0 03/04/2018 Pt Kwx1461 Hi intensity - 3.0-4.0 03/04/2018 Pt Ppc5574 PT 33.3 seconds 01/29/2018 Pt Nss7122 INR 3.2 01/29/2018 Pt Gwy5903 Low Intensity - 1.5-2.0 01/29/2018 Pt Vxi0165 Mod intensity - 2.0-3.0 01/29/2018 Pt Mcn8307 Hi intensity - 3.0-4.0 01/29/2018 Pt Nae8875 PT 26.1 seconds 01/21/2018 Pt Dld3095 INR 2.4 01/21/2018 Pt Vun9850 Low Intensity - 1.5-2.0 01/21/2018 Pt Jdk9094 Mod intensity - 2.0-3.0 01/21/2018 Pt Mrf3183 Hi intensity - 3.0-4.0 01/21/2018 Pt Ubn3449 PT 35.7 seconds 01/09/2018 Pt Xqq5158 INR 3.5 01/09/2018 Pt Fsi6597 Low Intensity - 1.5-2.0 01/09/2018 Pt Blm8671 Mod intensity - 2.0-3.0 01/09/2018 Pt Igo4529 Hi intensity - 3.0-4.0 01/09/2018 Pt Elu3767 PT 23.8 seconds 12/04/2017 Pt Hoc1658 INR 2.1 12/04/2017 Pt Rgx8926 Low Intensity - 1.5-2.0 12/04/2017 Pt Kwm4172 Mod intensity - 2.0-3.0 12/04/2017 Pt Dow8212 Hi intensity - 3.0-4.0 12/04/2017 Pt Ths5934 PT 32.3 seconds 11/12/2017 Pt Xsv9710 INR 3.1 11/12/2017 Pt Cga1724 Low Intensity - 1.5-2.0 11/12/2017 Pt Mqn5702 Mod intensity - 2.0-3.0 11/12/2017 Pt Vyi0495 Hi intensity - 3.0-4.0 11/12/2017 Urinalysis Ord28 [...] hours from collection if refrigerated) 10/20/2017 Pt Vqb7679 PT 16.6 seconds 10/20/2017 Pt Job5308 INR 1.4 10/20/2017 Pt Tdg6363 Low Intensity - 1.5-2.0 10/20/2017 Pt Jcg0889 Mod intensity - 2.0-3.0 10/20/2017 Pt Drm7754 Hi intensity - 3.0-4.0 10/20/2017 Renal Fqm478 NA 142 mEq/L 10/20/2017 Renal Fdy015 K 4.5 mEq/L 10/20/2017 Renal Hlv465 CL 107 mEq/L 10/20/2017 Renal Fkt079 CO2 28.0 mEq/L 10/20/2017 Renal Zxn019 ANION GAP 12 10/20/2017 Renal Ump267 Osmo 288 mOsmo 10/20/2017 Renal Lss556 GLUCOSE 96 mg/dL 10/20/2017 Renal Rbj045 BUN 27 mg/dL 10/20/2017 Renal Zud692 Creat 1.6 mg/dL 10/20/2017 Renal Xcu036 eGFR 46 ml/min/1.73m2 10/20/2017 Renal Ozq771 B/C Ratio 17.2 Ratio 10/20/2017 Renal Kvv171 CALCIUM 9.4 mg/dL 10/20/2017 Renal Ama276 PHOS 3.0 mg/dL 10/20/2017 Renal Azo539 ALBUMIN 4.2 g/dL 10/20/2017 Pt Njd8111 PT 31.2 seconds 10/17/2017 Pt Nof0675 INR 3.0 10/17/2017 Pt Qbv4904 Low Intensity - 1.5-2.0 10/17/2017 Pt Kuv8048 Mod intensity - 2.0-3.0 10/17/2017 Pt Lic8206 Hi intensity - 3.0-4.0 10/17/2017 Comp Metabolic Pul833 NA 139 mEq/L 05/08/2017 Comp Metabolic Bvc991 K 4.1 mEq/L 05/08/2017 Comp Metabolic Zes048 CL 103 mEq/L 05/08/2017 Comp Metabolic Pdw260 CO2 28.0 mEq/L 05/08/2017 Comp Metabolic Byc007 ANION GAP 12 05/08/2017 Comp Metabolic Mrn092 GLUCOSE 75 mg/dL 05/08/2017 Comp Metabolic Agd792 Creat 1.3 mg/dL 05/08/2017 Comp Metabolic Ofs477 eGFR 55 ml/min/1.73m2 05/08/2017 Comp Metabolic Qia815 BUN 20 mg/dL 05/08/2017 Comp Metabolic Fmv782 B/C Ratio 14.9 Ratio 05/08/2017 Comp Metabolic Ogh317 CALCIUM 8.8 mg/dL 05/08/2017 Comp Metabolic Akl587 ALK PHOS 51 U/L 05/08/2017 Comp Metabolic Lqe331 AST(SGOT) 30 U/L 05/08/2017 Comp Metabolic Lvq311 ALT(SGPT) 31 U/L 05/08/2017 Comp Metabolic Cmh375 BILI T 0.9 mg/dL 05/08/2017 Comp Metabolic Xwa844 ALBUMIN 4.0 g/dL 05/08/2017 Comp Metabolic Tkr439 TPRO 6.5 g/dL 05/08/2017 Comp Metabolic Vcy278 GLOB 2.6 g/dL 05/08/2017 Comp Metabolic Hrd561 A/G Ratio 1.5 Ratio 05/08/2017 Comp Metabolic Olu166 Osmo 279 mOsmo 05/08/2017 Cbc With Differential [...] 31.5 pg 05/08/2017 Cbc With Differential Ord2 Cobb% 13.5 % 05/08/2017 Cbc With Differential Ord2 [...] 1.29 K/ul 05/08/2017 Cbc With Differential Ord2 Cobb ABS# 1.1 K/ul 05/08/2017 Cbc With Differential Ord2 Eos ABS# 0.2 K/ul 05/08/2017 Cbc With Differential Ord2 Baso ABS# 0.0 K/ul 05/08/2017 Pt Dyy3982 PT 22.7 seconds 11/22/2016 Pt Ksw7520 INR 2.1 11/22/2016 Pt Blp9808 Low Intensity - 1.5-2.0 11/22/2016 Pt Cur4884 Mod intensity - 2.0-3.0 11/22/2016 Pt Pwi5394 Hi intensity - 3.0-4.0 11/22/2016 Pt Xrr7596 PT 24.4 seconds 10/25/2016 Pt Jmv3090 INR 2.3 10/25/2016 Pt Usk9051 Low Intensity - 1.5-2.0 10/25/2016 Pt Xri2816 Mod intensity - 2.0-3.0 10/25/2016 Pt Opd2485 Hi intensity - 3.0-4.0 10/25/2016 Pt Waw8675 PT 23.5 seconds 09/04/2016 Pt Dxk4625 INR 2.2 09/04/2016 Pt Ags9015 Low Intensity - 1.5-2.0 09/04/2016 Pt Pit6073 Mod intensity - 2.0-3.0 09/04/2016 Pt Jsc7322 Hi intensity - 3.0-4.0 09/04/2016 Pt Iek0664 PT 26.1 seconds 07/09/2016 Pt Tmj5836 INR 2.6 07/09/2016 Pt Occ8122 Low Intensity - 1.5-2.0 07/09/2016 Pt Mbn7676 Mod intensity - 2.0-3.0 07/09/2016 Pt Vbr5627 Hi intensity - 3.0-4.0 07/09/2016 Pt Iqb5886 PT 19.4 seconds 06/24/2016 Pt Uaj4430 INR 1.7 06/24/2016 Pt Rfu2062 Low Intensity - 1.5-2.0 06/24/2016 Pt Uag8923 Mod intensity - 2.0-3.0 06/24/2016 Pt Pkm5113 Hi intensity - 3.0-4.0 06/24/2016 Pt Bzc3820 PT 28.9 seconds 04/26/2016 Pt Hsw5488 INR 2.9 04/26/2016 Pt Pgl2635 Low Intensity - 1.5-2.0 04/26/2016 Pt Qeh9290 Mod intensity - 2.0-3.0 04/26/2016 Pt Don5404 Hi intensity - 3.0-4.0 04/26/2016 Tsh Ord6 hTSH II 1.21 uIU/mL 02/29/2016 Pt Dho6634 PT 21.8 seconds 02/29/2016 Pt Meb5082 INR 2.0 02/29/2016 Pt Wjx1267 Low Intensity - 1.5-2.0 02/29/2016 Pt Diu7786 Mod intensity - 2.0-3.0 02/29/2016 Pt Wem5645 Hi intensity - 3.0-4.0 02/29/2016 Lipid Ord30 [...] Ord2 RDW 16.2 % 06/30/2015 Comp Metabolic Vme235 NA 138 mEq/L 06/30/2015 Comp Metabolic Cmj538 K 4.8 mEq/L 06/30/2015 Comp Metabolic Raa127 CL 107 mEq/L 06/30/2015 Comp Metabolic Gws311 CO2 27.0 mEq/L 06/30/2015 Comp Metabolic Wfq976 ANION GAP 9 06/30/2015 Comp Metabolic Ktq630 GLUCOSE 98 mg/dL 06/30/2015 Comp Metabolic Dxn461 Creat 1.8 mg/dL 06/30/2015 Comp Metabolic Ziz217 eGFR 40 ml/min/1.73m2 06/30/2015 Comp Metabolic Fok434 BUN 20 mg/dL 06/30/2015 Comp Metabolic Hbx395 B/C Ratio 11.1 Ratio 06/30/2015 Comp Metabolic Bjh791 CALCIUM 9.1 mg/dL 06/30/2015 Comp Metabolic Rac927 ALK PHOS 39 U/L 06/30/2015 Comp Metabolic Vdb272 AST(SGOT) 21 U/L 06/30/2015 Comp Metabolic Eag852 ALT(SGPT) 23 U/L 06/30/2015 Comp Metabolic Cmy885 BILI T 0.5 mg/dL 06/30/2015 Comp Metabolic Nxz670 ALBUMIN 4.0 g/dL 06/30/2015 Comp Metabolic Qyn973 TPRO 6.6 g/dL 06/30/2015 Comp Metabolic Uww915 GLOB 2.6 g/dL 06/30/2015 Comp Metabolic Lhl921 A/G Ratio 1.5 Ratio 06/30/2015 Comp Metabolic Eqw148 Osmo 278 mOsmo 06/30/2015 Pt Lyy0009 PT 26.1 seconds 06/30/2015 Pt Oxi1091 INR 2.5 06/30/2015 Pt Byj3882 Low Intensity - 1.5-2.0 06/30/2015 Pt Las9832 Mod intensity - 2.0-3.0 06/30/2015 Pt Chz8931 Hi intensity - 3.0-4.0 06/30/2015 Review of [...] time 03/25/2017 None Full Exam - General [facility] Psychiatric mood and affect Overall: normal mood [...] Procedure Codes Date DESTRUCT PREMALG LESION CPT-4: 48447 12/31/2018 DESTRUCT PREMALG LES 2-14 CPT-4: 52518 12/31/2018 OCCULT BLOOD FECES CPT- 4: 53644 04/08/2018 PPPS, SUBSEQ VISIT CPT- 4: G0439 04/03/2018 PPPS, SUBSEQ VISIT CPT- 4: G0439 10/31/2017 PRESCRIP TRANSMIT VIA ERX SY CPT-4: G8553 09/22/2017 THER/PROPH/DIAG INJ SC/IM CPT-4: 03622 01/21/2017 TRIAMCINOLONE ACET INJ NOS CPT-4: J3301 01/21/2017 THER/PROPH/DIAG INJ SC/IM CPT-4: 69675 12/30/2016 ROCEPHIN, PER 250 MG CPT- 4: J0696 12/30/2016 PPPS, SUBSEQ VISIT CPT- 4: G0439 10/25/2016 ROCEPHIN, PER 250 MG CPT- 4: J0696 06/24/2016 THER/PROPH/DIAG INJ SC/IM CPT-4: 27092 06/24/2016 Vital Signs Date Vital 12/31/2018 Blood Pressure 1: 140/80 Code: 8480-6 BMI: 29.0 Code: 90658-5 Heart Rate 1: 86 bpm Height: 5'8" SpO2: 97% Weight: 191 lbs 12/23/2018 Blood Pressure 1: 140/68 Code: 8480-6 BMI: 29.3 Code: 89103-3 Heart Rate 1: 70 bpm Height: 5'8" SpO2: 97% Weight: 193 lbs 04/03/2018 Blood Pressure 1: 128/72 Code: 8480-6 BMI: 29.8 Code: 15362-5 Heart Rate 1: 60 bpm Height: 5'8" SpO2: 96% Weight: 196 lbs 03/31/2018 Blood Pressure 1: 128/76 Code: 8480-6 BMI: 29.8 Code: 01198-4 Heart Rate 1: 56 bpm Height: 5'8" SpO2: 98% Weight: 196 lbs 11/26/2017 Blood Pressure 1: 156/76 Code: 8480-6 BMI: 29.6 Code: 90560-2 Heart Rate 1: 57 bpm Height: 5'8" SpO2: 98% Weight: 195 lbs 10/31/2017 Blood Pressure 1: 136/74 Code: 8480-6 BMI: 29.5 Code: 42184-8 Heart Rate 1: 56 bpm Height: 5'8" SpO2: 95% Waist Measure (cm): 91 cm Weight: 194 lbs 10/07/2017 Blood Pressure 1: 136/72 Code: 8480-6 BMI: 30.3 Code: 78598-5 Heart Rate 1: 58 bpm Height: 5'8" SpO2: 96% Weight: 199 lbs 09/22/2017 Blood Pressure 1: 138/78 Code: 8480-6 BMI: 30.4 Code: 97555-6 Heart Rate 1: 60 bpm Height: 5'8" SpO2: 98% Temperature: 36.6 (C) / 97.9 (F) Weight: 200 lbs 05/08/2017 Blood Pressure 1: 128/80 Code: 8480-6 BMI: 30.0 Code: 76787-5 Heart Rate 1: 75 bpm Height: 5'8" SpO2: 98% Weight: 197 lbs 03/25/2017 Blood Pressure 1: 150/80 Code: 8480-6 BMI: 30.1 Code: 18833-1 Heart Rate 1: 53 bpm Height: 5'8" SpO2: 98% Weight: 198 lbs 01/21/2017 Blood Pressure 1: 156/88 Code: 8480-6 BMI: 29.8 Code: 04067-2 Heart Rate 1: 95 bpm Height: 5'8" SpO2: 98% Temperature: 36.9 (C) / 98.4 (F) Weight: 196 lbs 12/30/2016 Blood Pressure 1: 122/74 Code: 8480-6 BMI: 29.8 Code: 97530-4 Heart Rate 1: 60 bpm Height: 5'8" SpO2: 96% Temperature: 37.1 (C) / 98.8 (F) Weight: 196 lbs 12/26/2016 Blood Pressure 1: 142/74 Code: 8480-6 BMI: 29.8 Code: 65326-3 Heart Rate 1: 58 bpm Height: 5'8" SpO2: 96% Temperature: 36.7 (C) / 98.0 (F) Weight: 196 lbs 12/02/2016 Blood Pressure 1: 128/78 Code: 8480-6 BMI: 30.3 Code: 24372-7 Heart Rate 1: 49 bpm Height: 5'8" SpO2: 98% Temperature: 36.5 (C) / 97.7 (F) Weight: 199 lbs 11/21/2016 Blood Pressure 1: 130/68 Code: 8480-6 BMI: 30.3 Code: 16960-5 Heart Rate 1: 54 bpm Height: 5'8" SpO2: 98% Weight: 199 lbs 10/25/2016 Blood Pressure 1: 150/92 Code: 8480-6 BMI: 29.8 Code: 94568-9 Heart Rate 1: 54 bpm Height: 5'8" SpO2: 97% Waist Measure (cm): 97 cm Weight: 196 lbs 10/23/2016 Blood Pressure 1: 150/92 Code: 8480-6 BMI: 29.9 Code: 21064-1 Heart Rate 1: 54 bpm Height: 5'8" SpO2: 98% Weight: 196 lbs 8 oz 07/29/2016 Blood Pressure 1: 144/72 Code: 8480-6 BMI: 30.3 Code: 48200-4 Heart Rate 1: 54 bpm Height: 5'8" SpO2: 98% Weight: 199 lbs 06/24/2016 Blood Pressure 1: 132/78 Code: 8480-6 BMI: 29.5 Code: 31217-5 Heart Rate 1: 59 bpm Height: 5'8" SpO2: 94% Weight: 194 lbs 02/21/2016 Blood Pressure 1: 138/84 Code: 8480-6 BMI: 30.3 Code: 22207-2 Heart Rate 1: 64 bpm Height: 5'8" SpO2: 95% Weight: 199 lbs 10/18/2015 Blood Pressure 1: 154/84 Code: 8480-6 Blood Pressure 1: 138/72 Code: 8480-6 BMI: 30.4 Code: 02053-9 Heart Rate 1: 68 bpm Height: 5'8" SpO2: 97% Weight: 200 lbs 05/02/2015 Blood Pressure 1: 114/64 Code: 8480-6 BMI: 29.0 Code: 11260-2 Heart Rate 1: 62 bpm Height: 5'8" [...] bleeding[ICD10: K57.00] [facility] CPT-4: 20919 12/23/2018 ([id number]) 70199 EST. PATIENT, LEVEL III Diagnosis: Low back pain[ICD10: M54.5] Diagnosis: Muscle spasm of back[ICD10: M62.830] [facility] CPT-4: 58024 03/31/2018 ([id number]) 26281 EST. PATIENT, LEVEL III Diagnosis: Actinic keratosis[ICD10: L57.0] Diagnosis: Other hypertrophic disorders of the skin[ICD10: L91.8] [facility] CPT-4: 16262 11/26/2017 ([id number]) 31409 EST. PATIENT, LEVEL IV Diagnosis: Essential (primary) hypertension[ICD10: I10] Diagnosis: Mild cognitive impairment, so stated[ICD10: G31.84] Amanda Husain MD, [facility] CPT-4: 87000 10/07/2017 ([id number]) 66403 EST. PATIENT, LEVEL III Diagnosis: Pneumonia due to other streptococci[ICD10: J15.4] Diagnosis: Cough[ICD10: R05] Amanda Husain MD, [facility] CPT-4: 24489 09/22/2017 [id number] EST. PATIENT, LEVEL IV Diagnosis: Left lower quadrant pain[ICD10: R10.32] Diagnosis: Other fatigue[ICD10: R53.83] Gabrielle Husain MD, [facility] CPT-4: 75718 05/08/2017 ([id number]) 36300 EST. PATIENT, LEVEL III Diagnosis: Essential (primary) hypertension[ICD10: I10] Amanda Husain MD, [facility] CPT-4: 39227 03/25/2017 ([id number]) 77013 EST. PATIENT, LEVEL III Diagnosis: Cough[ICD10: R05] Diagnosis: Allergic rhinitis due to pollen[ICD10: J30.1] Leidy Husain MD, [facility] CPT-4: 66866 01/21/2017 [id number] EST. PATIENT, LEVEL III Diagnosis: Other allergic rhinitis[ICD10: J30.89] Diagnosis: Cough[ICD10: R05] Gabrielle Husain MD, [facility] CPT-4: 17896 12/30/2016 ([id number]) 53458 EST. PATIENT, LEVEL III Diagnosis: Cough[ICD10: R05] Diagnosis: Pneumonia, unspecified organism[ICD10: J18.9] Leidy Husain MD, [facility] CPT-4: 23392 12/26/2016 ([id number]) 08943 EST. PATIENT, LEVEL III Diagnosis: Pneumonia due to other streptococci[ICD10: J15.4] Diagnosis: Cough[ICD10: R05] Amanda Husain MD, [facility] CPT-4: 46092 12/02/2016 ([id number]) 22765 EST. PATIENT, LEVEL III Diagnosis: Essential (primary) hypertension[ICD10: I10] Amanda Husain MD [facility] CPT-4: 13040 11/21/2016 ([id number]) 75330 EST. PATIENT, LEVEL IV Diagnosis: Essential (primary) hypertension[ICD10: I10] Diagnosis: Mixed hyperlipidemia[ICD10: E78.2] Amanda Husain MD [facility] CPT- 4: 15774 10/23/2016 15770 EST. PATIENT, LEVEL IV Diagnosis: Other allergic rhinitis[ICD10: J30.89] Diagnosis: Cough[ICD10: R05] Gabrielle Husain MD, [facility] CPT-4: 24815 07/29/2016 ([id number]) Miscellaneous no charge Diagnosis: Pneumonia, unspecified organism[ICD10: J18.9] Gabrielle Husain MD [facility] CPT-4: 56480 06/27/2016 ([id number]) 44805 EST. PATIENT, LEVEL IV Diagnosis: Essential (primary) hypertension[ICD10: I10] Diagnosis: Pneumonia, unspecified organism[ICD10: J18.9] Diagnosis: Cough[ICD10: R05] Diagnosis: Mixed hyperlipidemia[ICD10: E78.2] Amanda Husain MD, [facility] CPT- 4: 89239 06/24/2016 ([id number]) 59084 EST. PATIENT, LEVEL IV Diagnosis: Mixed hyperlipidemia[ICD10: E78.2] Diagnosis: Essential (primary) hypertension[ICD10: I10] Diagnosis: Gastro-esophageal reflux disease without esophagitis[ICD10: K21.9] Amanda Husain MD, [facility] CPT-4: 46271 02/21/2016 ([id number]) 54329 EST. PATIENT, LEVEL IV Diagnosis: Essential (primary) hypertension[ICD10: I10] Diagnosis: Mixed hyperlipidemia[ICD10: E78.2] Diagnosis: Chronic lymphocytic 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[ICD10: C91.10] Amanda Husain MD, [facility] CPT-4: 60685 10/18/2015 ([id number]) OFFICE VISIT, NEW - LEVEL 3 Diagnosis: Diverticulitis[ICD9: 562.11] Amanda Husain MD, [facility] CPT-4: 52886 05/02/2015 Plan of Care Planned Activity Notes Codes Status Date Visit Plan: Actinic Keratosis - treated with cryotherapy x 3, pt advised on how to appropriately care for the lesion. Call if not improved after thorough healing - apply neosporin to skin lesions. 12/31/2018 Appointment: Amanda Husain WPtel: [phone] [id number] (30 min) Complex 12/31/2018 Patient Education: Patient Medication Summary Completed 12/31/2018 Visit Plan: Diverticulitis - rx for antibiotic sent to pt's pharmacy - pt advised to avoid seeds, nuts, popcorn, or any other food which has been proven to upset the pt's stomach. 12/23/2018 Appointment: Gabrielle Corona WPtel: [phone] [facility] (15 min) Moderate 12/23/2018 Patient Education: Patient Medication Summary Completed 12/23/2018 Appointment: Gabrielle Corona WPtel: [facility] (30 min) Complex 12/16/2018 Appointment: Lab [...] not improve. 03/31/2018 Appointment: Leidy Angulo WPtel: [address] [place], [place] [phone] (15 min) Moderate 03/31/2018 Patient Education: Patient Medication Summary Completed 03/31/2018 Visit Plan: Wound Instructions - Pt was instructed to keep the wound clean, wash with antibacterial soap, use triple antibiotic ointment, call if redness, pustular drainage, or any other acute concerns. 11/26/2017 Appointment: Amanda Husain WPtel: [address] [place], [place] [phone] Surgical Procedure 11/26/2017 Patient Education: Patient Medication [...] care surrogate. 10/31/2017 Appointment: Leidy Angulo WPtel: [facility]5 [phone] [facility] - Annual Wellness Visit 10/31/2017 Patient [...] loss. 10/07/2017 Appointment: Amanda Husain WPtel: [phone] [id number] (30 min) Complex 10/07/2017 Patient Education: Patient Medication Summary Completed 10/07/2017 Patient Education: Obesity Completed 10/07/2017 Patient Education: Hypertension Completed 10/07/2017 Visit Plan: Pneumonia - Pt has been diagnosed with pneumonia by physical exam. Antibiotics have been ordered. The pt is aware of the diagnosis and the need for acute treatment of this illness. 09/22/2017 Appointment: Amanda Husain WPtel: [phone] [id number] (15 min) Moderate 09/22/2017 Patient Education: Patient [...] or concerns. 05/08/2017 [facility]ment: [phone] ([facility] min) Complex 05/08/2017 Patient Education: Patient [...] 10mg daily. 03/25/2017 Appointment: Amanda Husain WPtel: [phone] [id number] (15 min) Moderate 03/25/2017 Patient Education: Patient Medication Summary Completed 03/25/2017 Appointment: Leidy Angulo WPtel: [facility] (15 min) Moderate 01/31/2017 Visit Plan: URI/Allergies - Pt advised to increase fluids, vitamin C. Discussed natural and expected course of this diagnosis and need to alert me if symptoms do not follow expected course, or if any worse. RX sent to patient's pharmacy. 01/21/2017 Appointment: Leidy Angulo WPtel: [phone] (15 min) Moderate 01/21/2017 Patient Education: [...] the medication. 12/30/2016 Appointment: Leidy Angulo WPtel: [address] [place], [place] [phone] (15 min) Moderate 12/30/2016 Appointment: Gabrielle Corona WPtel: [address] [place], [place] [phone] (30 min) Complex 12/30/2016 Patient Education: Patient Medication Summary Completed 12/30/2016 Visit Plan: Pneumonia - Pt has been diagnosed with pneumonia by physical exam. Antibiotics ordered, pt advised on starting a probiotic, and to have his inr checked on Friday. The pt is aware of the diagnosis and the need for acute treatment of this illness. Discussed with Dr Husain-severiano amiodarone while on the levaquin. 12/26/2016 Appointment: Leidy Angulo WPtel: [facility]1 [phone] (15 min) Moderate 12/26/2016 Patient Education: [...] care surrogate. 10/25/2016 Appointment: Leidy Angulo WPtel: [phone] [facility] - Annual Wellness Visit 10/25/2016 Patient [...] to medications. 10/23/2016 Appointment: Amanda Husain WPtel: [phone] [id number] (15 min) Moderate 10/23/2016 Patient Education: Patient [...] any concerns. 07/29/2016 Appointment: Gabrielle Corona WPtel: [facility]8 [facility] (15 min) Moderate 07/29/2016 Patient Education: [...] to medications. 06/24/2016 Appointment: Amanda Husain WPtel: [address] [place], [place] [address] (15 min) Moderate 06/24/2016 Patient Education: Patient [...] not improving. 02/21/2016 Appointment: Rodrigue Amanda [facility]Ptel[facility] (15 min) Moderate 02/21/2016 [...] Care Plan: COMPLETE CBC AUTOMATED LOINC : 90411-5 Ordered 05/02/2015 Care Plan: ASSAY OF TROPONIN [...] of approaching that level of memory loss. Follow up appointment with Dr. Cantu on [...] healing - apply neosporin to skin lesions. [employer] - take three times daily x 7 [...] symptoms are not controlled with the medication. kenalog injection zyrtec 10mg daily call if [...]
--- NOTE | 2019-05-19 11:11 | Progress Note-Pre Operative ---
Pre-Operative Progress Note H&P Reviewed The H&P was reviewed, patient examined and no changes noted. Time Seen by Provider: 11:08 Date H&P Reviewed: May 19, 2019 Time H&P Reviewed: 11:09 Pre-Operative Diagnosis: Right lower leg lesion, Right inner thigh lesion ARMEN ROSENBERG DO May 19, 2019 11:11
--- OUTSIDE RECORDS SUMMARY | 2019-05-19 11:13 | XMS REPORT | CCD ---
Author Author Amanda Celestin MD, [facility] Address [address] [place] [address] Phone Care Team Providers Care Lead Process Engineer Name Role Phone PP Unavailable CCM Unavailable Summary Purpose Interface Exchange Insurance Providers Payer name Policy type / Coverage type Covered green party ID Effective Begin Date Effective End Date WPS Medicare Part B [id number] Unknown Vanu Coverage Life Insurance [id number] Unknown Family history Brother Diagnosis Age At [...] Unknown Retired 05/02/[address]: 8343842 Former smoker Quit in 1966 05/02/2015 Number [...] Instructions Zithromax Z-Carlo 250 mg tablet RxNorm: 074497 2 Tablet(s) PO on 1 st day then 1 daily x 4 days ZPACK X 1 01/15/2019 No Stop Date Active metronidazole 500 mg tablet RxNorm: 313236 1 Tablet(s) PO TID 12/23/2018 01/01/2019 Inactive omeprazole 20 mg capsule,delayed release RxNorm: 069682 TAKE 1 CAPSULE BY MOUTH ONCE DAILY 12/07/2018 No Stop Date Active metoprolol tartrate 25 mg tablet RxNorm: 536941 Tablet(s) TAKE 1 TABLET BY MOUTH TWICE DAILY 10/16/2018 No Stop Date Active metoprolol tartrate 25 mg tablet RxNorm: 147471 TAKE 1 TABLET BY MOUTH TWICE DAILY 07/13/2018 10/15/2018 Inactive Trilipix 135 mg capsule,delayed release RxNorm: 723189 1 Capsule(s) PO daily 06/17/2018 10/14/2018 Inactive ramipril 10 mg capsule RxNorm: 373075 TAKE ONE CAPSULE BY MOUTH ONCE DAILY 06/15/2018 No Stop Date Active omeprazole 20 mg capsule,delayed release RxNorm: 512841 Capsule(s) TAKE ONE CAPSULE BY MOUTH ONCE DAILY 06/03/2018 No Stop Date Active omeprazole 20 mg capsule,delayed release RxNorm: 316030 Capsule(s) TAKE ONE CAPSULE BY MOUTH ONCE DAILY 06/02/2018 06/02/2018 Inactive metoprolol tartrate 25 mg tablet RxNorm: 132671 TAKE ONE TABLET BY MOUTH TWICE DAILY 02/16/2018 07/12/2018 Inactive omeprazole 20 mg capsule,delayed release RxNorm: 297403 TAKE ONE CAPSULE BY MOUTH ONCE DAILY 01/05/2018 06/01/2018 Inactive metoprolol tartrate 25 mg tablet RxNorm: 317269 TAKE ONE TABLET BY MOUTH TWICE DAILY 10/27/2017 02/15/2018 Inactive azithromycin 250 mg tablet RxNorm: 399430 1 Tablet(s) PO UD 2 tabs on day #1, then 1 pill daily x 4 days 09/22/2017 11/25/2017 Inactive omeprazole 20 mg capsule,delayed release RxNorm: 605233 TAKE ONE CAPSULE BY MOUTH ONCE DAILY 06/16/2017 12/12/2017 Inactive metronidazole 500 mg tablet RxNorm: 425195 1 Tablet(s) PO TID 05/08/2017 05/14/2017 Inactive ramipril 10 mg capsule RxNorm: 185285 1 Capsule(s) PO daily 03/25/2017 03/19/2018 Inactive Kenalog 40 mg/mL suspension for injection RxNorm: 1684910 Milliliter(s) Inj 01/21/2017 01/21/2017 Inactive ceftriaxone 500 mg solution for injection RxNorm: 7297588 Inj 12/30/2016 12/30/2016 Inactive Phenergan with Codeine Syrup RxNorm: 5-10 Milliliter(s) PO Q6 PRN 12/26/2016 No Stop Date Active Levaquin 500 mg tablet RxNorm: 971948 1 Tablet(s) PO daily 12/26/2016 01/01/2017 Inactive Tessalon Perles 100 mg capsule RxNorm: 303238 1 Capsule(s) PO TID as needed 12/26/2016 01/04/2017 Inactive prednisone 20 mg tablet RxNorm: 334562 1 Tablet(s) PO BID 12/26/2016 12/30/2016 Inactive omeprazole 20 mg capsule,delayed release RxNorm: 323088 TAKE ONE CAPSULE BY MOUTH ONCE DAILY 12/16/2016 06/13/2017 Inactive cefdinir 300 mg capsule RxNorm: 784069 1 Capsule(s) PO BID 12/02/2016 12/08/2016 Inactive azithromycin 250 mg tablet RxNorm: 541970 Tablet(s) 2 tabs on day #1, then one tab PO daily x 4 more days 12/02/2016 12/25/2016 Inactive metoprolol tartrate 25 mg tablet RxNorm: 546032 1 Tablet(s) PO BID 10/23/2016 10/17/2017 Inactive metoprolol tartrate 25 mg tablet RxNorm: 314876 1 Tablet(s) PO BID 10/23/2016 10/22/2016 Inactive ceftriaxone 500 mg solution for injection RxNorm: 2602870 Inj 06/24/2016 06/24/2016 Inactive cefdinir 300 mg capsule RxNorm: 408409 1 Capsule(s) PO BID 06/24/2016 06/30/2016 Inactive omeprazole 20 mg capsule,delayed release RxNorm: 000913 TAKE ONE CAPSULE BY MOUTH DAILY 06/07/2016 12/03/2016 Inactive omeprazole 20 mg capsule,delayed release RxNorm: 809138 TAKE ONE CAPSULE BY MOUTH DAILY 01/29/2016 05/27/2016 Inactive metoprolol tartrate 50 mg tablet RxNorm: 508245 Tablet(s) TAKE ONE TABLET BY MOUTH DAILY 10/11/2015 10/10/2015 Inactive metoprolol tartrate 50 mg tablet RxNorm: 508962 TAKE ONE TABLET BY MOUTH DAILY 10/11/2015 10/22/2016 Inactive omeprazole 20 mg capsule,delayed release RxNorm: 094129 TAKE ONE CAPSULE BY MOUTH DAILY 08/28/2015 01/24/2016 Inactive metoprolol tartrate 50 mg tablet RxNorm: 223684 TAKE ONE TABLET BY MOUTH DAILY 08/11/2015 10/09/2015 Inactive metoprolol tartrate 50 mg tablet RxNorm: 022820 1 Tablet(s) PO daily 06/14/2015 08/10/2015 Inactive omeprazole 20 mg capsule,delayed release RxNorm: 070096 1 Capsule(s) PO daily 05/29/2015 08/26/2015 Inactive omeprazole 20 mg capsule,delayed release RxNorm: 768207 1 Capsule(s) PO daily 05/29/2015 05/28/2015 Inactive metronidazole 500 mg tablet RxNorm: 084366 1 Tablet(s) PO TID 05/02/2015 05/08/2015 Inactive finasteride 5 mg tablet RxNorm: 928478 1 Tablet(s) PO daily No Start Date Active warfarin 5 mg tablet RxNorm: 691036 1 Tablet(s) PO daily No Start Date Active Aspirin Childrens 81 mg chewable tablet RxNorm: 338397 1 Tablet(s) PO daily No Start Date Active amiodarone 200 mg tablet RxNorm: 202310 1 Tablet(s) PO daily No Start Date Active vitamin E (dl, acetate) 1,000 unit capsule RxNorm: 448979 1 Capsule(s) PO daily No Start Date Active atorvastatin 80 mg tablet RxNorm: 473301 1 Tablet(s) PO daily No Start Date Active Fish Oil 120 mg-180 mg capsule RxNorm: 665090 1 Capsule(s) PO BID No Start Date 10/30/2017 Inactive metoprolol tartrate 50 mg tablet RxNorm: 306648 1 Tablet(s) PO daily No Start Date 06/13/2015 Inactive Zetia 10 mg tablet RxNorm: 268267 1 Tablet(s) PO daily No Start Date 10/17/2015 Inactive ramipril 5 mg capsule RxNorm: 668002 1 Capsule(s) PO daily No Start Date 03/24/2017 Inactive Tessalon Perles 100 mg capsule RxNorm: 151819 1 Capsule(s) PO TID as needed No Start Date 12/25/2016 Inactive omeprazole 20 mg capsule,delayed release RxNorm: 452473 1 Capsule(s) PO daily No Start Date 05/28/2015 Inactive Zithromax Z-Carlo 250 mg tablet RxNorm: 286406 2 Tablet(s) PO on 1 st day then 1 daily x 4 days ZPACK X 1 No Start Date 01/14/2019 Inactive Trilipix 135 mg capsule,delayed release RxNorm: 388780 1 Capsule(s) PO daily No Start Date 06/16/2018 Inactive Centrum Silver tablet RxNorm: 1 Tablet(s) PO daily No Start Date 10/30/2017 Inactive Medication Administered Medication Codes Instructions Start Date Status Kenalog 40 mg/mL suspension for injection RxNorm: 4041183 Milliliter 01/21/2017 No longer Active ceftriaxone 500 mg solution for injection RxNorm: 9460358 12/30/2016 No longer Active ceftriaxone 500 mg solution for injection RxNorm: 4258141 06/24/2016 No longer Active Immunizations Vaccine Codes [...] Code Item Item Code Result Date Pt Ryg6410 PT 31.9 seconds 01/20/2019 Pt Qsc9784 INR 3.1 01/20/2019 Pt Kpu0993 Low Intensity - 1.5-2.0 01/20/2019 Pt Gfu9265 Mod intensity - 2.0-3.0 01/20/2019 Pt Qbp9618 Hi intensity - 3.0-4.0 01/20/2019 Pt Rmk0687 PT 21.0 seconds 01/12/2019 Pt Sva2210 INR 1.9 01/12/2019 Pt Twt3578 Low Intensity - 1.5-2.0 01/12/2019 Pt Lpi1758 Mod intensity - 2.0-3.0 01/12/2019 Pt Ujj1784 Hi intensity - 3.0-4.0 01/12/2019 Pt Sgp5116 PT 31.8 seconds 01/07/2019 Pt Yzr3981 INR 3.1 01/07/2019 Pt Pnz5872 Low Intensity - 1.5-2.0 01/07/2019 Pt Uqp1543 Mod intensity - 2.0-3.0 01/07/2019 Pt Zwj9027 Hi intensity - 3.0-4.0 01/07/2019 Pt Aoq2644 PT 48.2 seconds 01/05/2019 Pt Bei7668 INR 5.2 01/05/2019 Pt Wlo1477 Low Intensity - 1.5-2.0 01/05/2019 Pt Azv8453 Mod intensity - 2.0-3.0 01/05/2019 Pt Fwm2221 Hi intensity - 3.0-4.0 01/05/2019 Pt Ywu7730 PT 17.6 seconds 12/25/2018 Pt Nub3133 INR 1.5 12/25/2018 Pt Idj9280 Low Intensity - 1.5-2.0 12/25/2018 Pt Kkn0345 Mod intensity - 2.0-3.0 12/25/2018 Pt Aam4539 Hi intensity - 3.0-4.0 12/25/2018 Cbc With [...] 30.0 pg 12/10/2018 Cbc With Differential Ord2 [place]% 10.5 % 12/10/2018 Cbc With Differential Ord2 [...] 2.09 K/ul 12/10/2018 Cbc With Differential Ord2 [place] ABS# 0.8 K/ul 12/10/2018 Cbc With Differential Ord2 Eos ABS# 0.4 K/ul 12/10/2018 Cbc With Differential Ord2 Baso ABS# 0.0 K/ul 12/10/2018 Uric Acid Ord77 Uric A 4.6 mg/dL 12/10/2018 Random Urine Protein/Creatinine Ratio Cdo6864 U Prot 9.0 mg/dl 12/10/2018 Random Urine Protein/Creatinine Ratio Eay8636 U CREAT 126.0 mg/dL 12/10/2018 Random Urine Protein/Creatinine Ratio Ipl0363 R MTP/Creat Ratio 0.07 12/10/2018 Ferritin Ord22 FERRITIN 47.9 ng/mL 12/10/2018 Renal Lwo079 NA 142 mEq/L 12/10/2018 Renal Uyg585 K 4.3 mEq/L 12/10/2018 Renal Lyu829 CL 106 mEq/L 12/10/2018 Renal Uwv504 CO2 30.0 mEq/L 12/10/2018 Renal Sgv010 ANION GAP 10 12/10/2018 Renal Ehm980 Osmo 286 mOsmo 12/10/2018 Renal Hot476 GLUCOSE 105 mg/dL 12/10/2018 Renal Fzb095 BUN 20 mg/dL 12/10/2018 Renal Cep034 Creat 1.4 mg/dL 12/10/2018 Renal Vhr743 eGFR 52 ml/min/1.73m2 12/10/2018 Renal Uxb703 B/C Ratio 14.1 Ratio 12/10/2018 Renal Lfx663 CALCIUM 9.7 mg/dL 12/10/2018 Renal Zxk149 PHOS 3.3 mg/dL 12/10/2018 Renal Jzj513 ALBUMIN 4.0 g/dL 12/10/2018 Urinalysis Ord28 U-Color [...] 17.8 % 12/10/2018 Vitamin D 25 Oh Euo5476 VITAMIN D, 25 HYDROXY 27.29 ng/mL 12/10/2018 Pt Tqm2534 PT 23.1 seconds 11/05/2018 Pt Umy2854 INR 2.1 11/05/2018 Pt Xwv0349 Low Intensity - 1.5-2.0 11/05/2018 Pt Azs5074 Mod intensity - 2.0-3.0 11/05/2018 Pt Vwq2237 Hi intensity - 3.0-4.0 11/05/2018 Pt Weg5512 PT 29.8 seconds 08/17/2018 Pt Wzv1053 INR 2.8 08/17/2018 Pt Ldm5183 Low Intensity - 1.5-2.0 08/17/2018 Pt Cvu0594 Mod intensity - 2.0-3.0 08/17/2018 Pt Aws1773 Hi intensity - 3.0-4.0 08/17/2018 Pt Vdv2355 PT 27.7 seconds 05/18/2018 Pt Fpl1180 INR 2.6 05/18/2018 Pt Kjw9426 Low Intensity - 1.5-2.0 05/18/2018 Pt Wni0594 Mod intensity - 2.0-3.0 05/18/2018 Pt Vbn0680 Hi intensity - 3.0-4.0 05/18/2018 Uric Acid [...] 30.9 pg 05/18/2018 Cbc With Differential Ord2 [place]% 13.8 % 05/18/2018 Cbc With Differential Ord2 [...] 1.94 K/ul 05/18/2018 Cbc With Differential Ord2 [place] ABS# 0.9 K/ul 05/18/2018 Cbc With Differential Ord2 Eos ABS# 0.4 K/ul 05/18/2018 Cbc With Differential Ord2 Baso ABS# 0.0 K/ul 05/18/2018 Random Urine Protein/Creatinine Ratio Obr1937 U Prot 7.0 mg/dl 05/18/2018 Random Urine Protein/Creatinine Ratio Fsy3257 U CREAT 75.0 mg/dL 05/18/2018 Random Urine Protein/Creatinine Ratio Tsr0335 R MTP/Creat Ratio 0.09 05/18/2018 Vitamin D 25 Oh Wsg9775 VITAMIN D, 25 HYDROXY 27.40 ng/mL 05/18/2018 Tibc Ord40 Iron 68 ug/dl 05/18/2018 Tibc Ord40 UIBC 308 ug/dL 05/18/2018 Tibc Ord40 TIBC 376 ug/dL 05/18/2018 Tibc Ord40 Fe-%Sat 18.1 % 05/18/2018 Parathyroid Hormone Mbt324 PTH 36.20 pg/ml 05/18/2018 Urinalysis Ord28 U-Color [...] hours from collection if refrigerated) 05/18/2018 Renal Rsf150 NA 141 mEq/L 05/18/2018 Renal Lkm450 K 4.0 mEq/L 05/18/2018 Renal Umq147 CL 107 mEq/L 05/18/2018 Renal Chj914 CO2 27.0 mEq/L 05/18/2018 Renal Kaf649 ANION GAP 11 05/18/2018 Renal Mzc366 Osmo 282 mOsmo 05/18/2018 Renal Bcb905 GLUCOSE 83 mg/dL 05/18/2018 Renal Fku075 BUN 18 mg/dL 05/18/2018 Renal Zxz163 Creat 1.4 mg/dL 05/18/2018 Renal Qdm703 eGFR 55 ml/min/1.73m2 05/18/2018 Renal Uqo589 B/C Ratio 13.3 Ratio 05/18/2018 Renal Ksp998 CALCIUM 9.0 mg/dL 05/18/2018 Renal Bim774 PHOS 2.9 mg/dL 05/18/2018 Renal Hnw069 ALBUMIN 4.0 g/dL 05/18/2018 Ferritin Ord22 FERRITIN [...] Metabolic Ord15 CALCIUM 9.2 mg/dL 03/23/2018 Pt Nwc0968 PT 29.0 seconds 03/13/2018 Pt Lid3360 INR 2.7 03/13/2018 Pt Spm6446 Low Intensity - 1.5-2.0 03/13/2018 Pt Xxl3452 Mod intensity - 2.0-3.0 03/13/2018 Pt Xxr8949 Hi intensity - 3.0-4.0 03/13/2018 Pt Wig0570 PT 31.6 seconds 03/04/2018 Pt Ggm6133 INR 3.0 03/04/2018 Pt Gjr6018 Low Intensity - 1.5-2.0 03/04/2018 Pt Jxw8568 Mod intensity - 2.0-3.0 03/04/2018 Pt Bzz1814 Hi intensity - 3.0-4.0 03/04/2018 Pt Nzw6126 PT 33.3 seconds 01/29/2018 Pt Emz9685 INR 3.2 01/29/2018 Pt Yjn3220 Low Intensity - 1.5-2.0 01/29/2018 Pt Cea2784 Mod intensity - 2.0-3.0 01/29/2018 Pt Mjc6317 Hi intensity - 3.0-4.0 01/29/2018 Pt Jnq0920 PT 26.1 seconds 01/21/2018 Pt Nyb4990 INR 2.4 01/21/2018 Pt Qdm2159 Low Intensity - 1.5-2.0 01/21/2018 Pt Fue3015 Mod intensity - 2.0-3.0 01/21/2018 Pt Qwt9939 Hi intensity - 3.0-4.0 01/21/2018 Pt Brx3266 PT 35.7 seconds 01/09/2018 Pt Vyl2191 INR 3.5 01/09/2018 Pt Tms9759 Low Intensity - 1.5-2.0 01/09/2018 Pt Nfx7580 Mod intensity - 2.0-3.0 01/09/2018 Pt Fjw1964 Hi intensity - 3.0-4.0 01/09/2018 Pt Qns3786 PT 23.8 seconds 12/04/2017 Pt Hfb4249 INR 2.1 12/04/2017 Pt Vmv1412 Low Intensity - 1.5-2.0 12/04/2017 Pt Wcb2139 Mod intensity - 2.0-3.0 12/04/2017 Pt Ukm1633 Hi intensity - 3.0-4.0 12/04/2017 Pt Rgo2204 PT 32.3 seconds 11/12/2017 Pt Nup5464 INR 3.1 11/12/2017 Pt Fns0278 Low Intensity - 1.5-2.0 11/12/2017 Pt Xqi7210 Mod intensity - 2.0-3.0 11/12/2017 Pt Fpf5531 Hi intensity - 3.0-4.0 11/12/2017 Urinalysis Ord28 [...] hours from collection if refrigerated) 10/20/2017 Pt Spf4429 PT 16.6 seconds 10/20/2017 Pt Uvt2080 INR 1.4 10/20/2017 Pt Nvw9962 Low Intensity - 1.5-2.0 10/20/2017 Pt Mts1935 Mod intensity - 2.0-3.0 10/20/2017 Pt Wps0550 Hi intensity - 3.0-4.0 10/20/2017 Renal Qop526 NA 142 mEq/L 10/20/2017 Renal Lmw539 K 4.5 mEq/L 10/20/2017 Renal Dyb940 CL 107 mEq/L 10/20/2017 Renal Vbc289 CO2 28.0 mEq/L 10/20/2017 Renal Tuh490 ANION GAP 12 10/20/2017 Renal Ovw343 Osmo 288 mOsmo 10/20/2017 Renal Mil549 GLUCOSE 96 mg/dL 10/20/2017 Renal Lqi517 BUN 27 mg/dL 10/20/2017 Renal Wyo120 Creat 1.6 mg/dL 10/20/2017 Renal Dbj852 eGFR 46 ml/min/1.73m2 10/20/2017 Renal Xmr764 B/C Ratio 17.2 Ratio 10/20/2017 Renal Iiu329 CALCIUM 9.4 mg/dL 10/20/2017 Renal Lzr842 PHOS 3.0 mg/dL 10/20/2017 Renal Tpb762 ALBUMIN 4.2 g/dL 10/20/2017 Pt Ppo2812 PT 31.2 seconds 10/17/2017 Pt Flb6462 INR 3.0 10/17/2017 Pt Zaw7950 Low Intensity - 1.5-2.0 10/17/2017 Pt Mwy7999 Mod intensity - 2.0-3.0 10/17/2017 Pt Res6165 Hi intensity - 3.0-4.0 10/17/2017 Comp Metabolic Buf214 NA 139 mEq/L 05/08/2017 Comp Metabolic Kpp540 K 4.1 mEq/L 05/08/2017 Comp Metabolic Ynv697 CL 103 mEq/L 05/08/2017 Comp Metabolic Kix904 CO2 28.0 mEq/L 05/08/2017 Comp Metabolic Ktc654 ANION GAP 12 05/08/2017 Comp Metabolic Asg448 GLUCOSE 75 mg/dL 05/08/2017 Comp Metabolic Asc161 Creat 1.3 mg/dL 05/08/2017 Comp Metabolic Gse010 eGFR 55 ml/min/1.73m2 05/08/2017 Comp Metabolic Fkw438 BUN 20 mg/dL 05/08/2017 Comp Metabolic Miq798 B/C Ratio 14.9 Ratio 05/08/2017 Comp Metabolic Lvg377 CALCIUM 8.8 mg/dL 05/08/2017 Comp Metabolic Beu574 ALK PHOS 51 U/L 05/08/2017 Comp Metabolic Jhw969 AST(SGOT) 30 U/L 05/08/2017 Comp Metabolic Eol847 ALT(SGPT) 31 U/L 05/08/2017 Comp Metabolic Ike011 BILI T 0.9 mg/dL 05/08/2017 Comp Metabolic Yiw985 ALBUMIN 4.0 g/dL 05/08/2017 Comp Metabolic Pxe475 TPRO 6.5 g/dL 05/08/2017 Comp Metabolic Ylt973 GLOB 2.6 g/dL 05/08/2017 Comp Metabolic Htc295 A/G Ratio 1.5 Ratio 05/08/2017 Comp Metabolic Lpq555 Osmo 279 mOsmo 05/08/2017 Cbc With Differential [...] 31.5 pg 05/08/2017 Cbc With Differential Ord2 [place]% 13.5 % 05/08/2017 Cbc With Differential Ord2 [...] 1.29 K/ul 05/08/2017 Cbc With Differential Ord2 [place] ABS# 1.1 K/ul 05/08/2017 Cbc With Differential Ord2 Eos ABS# 0.2 K/ul 05/08/2017 Cbc With Differential Ord2 Baso ABS# 0.0 K/ul 05/08/2017 Pt Tgj4675 PT 22.7 seconds 11/22/2016 Pt Mvv7680 INR 2.1 11/22/2016 Pt Wtz0016 Low Intensity - 1.5-2.0 11/22/2016 Pt Sla7061 Mod intensity - 2.0-3.0 11/22/2016 Pt Hud2215 Hi intensity - 3.0-4.0 11/22/2016 Pt Dyp2934 PT 24.4 seconds 10/25/2016 Pt Kzb6049 INR 2.3 10/25/2016 Pt Qty7533 Low Intensity - 1.5-2.0 10/25/2016 Pt Czi4144 Mod intensity - 2.0-3.0 10/25/2016 Pt Sgd5594 Hi intensity - 3.0-4.0 10/25/2016 Pt Hex5321 PT 23.5 seconds 09/04/2016 Pt Oac0397 INR 2.2 09/04/2016 Pt Ouh3411 Low Intensity - 1.5-2.0 09/04/2016 Pt Alx9516 Mod intensity - 2.0-3.0 09/04/2016 Pt Vpp3365 Hi intensity - 3.0-4.0 09/04/2016 Pt Kqd0731 PT 26.1 seconds 07/09/2016 Pt Njz7528 INR 2.6 07/09/2016 Pt Orb6682 Low Intensity - 1.5-2.0 07/09/2016 Pt Dfr4534 Mod intensity - 2.0-3.0 07/09/2016 Pt Yov5438 Hi intensity - 3.0-4.0 07/09/2016 Pt Gfy7601 PT 19.4 seconds 06/24/2016 Pt Mtj5595 INR 1.7 06/24/2016 Pt Gjx9689 Low Intensity - 1.5-2.0 06/24/2016 Pt Bjh5688 Mod intensity - 2.0-3.0 06/24/2016 Pt Ttx7878 Hi intensity - 3.0-4.0 06/24/2016 Pt Skw9944 PT 28.9 seconds 04/26/2016 Pt Fgi2052 INR 2.9 04/26/2016 Pt Mlu7761 Low Intensity - 1.5-2.0 04/26/2016 Pt Mdt8001 Mod intensity - 2.0-3.0 04/26/2016 Pt Aqw1785 Hi intensity - 3.0-4.0 04/26/2016 Tsh Ord6 hTSH II 1.21 uIU/mL 02/29/2016 Pt Xcy6730 PT 21.8 seconds 02/29/2016 Pt Mrm4317 INR 2.0 02/29/2016 Pt Ttx0348 Low Intensity - 1.5-2.0 02/29/2016 Pt Hjt1240 Mod intensity - 2.0-3.0 02/29/2016 Pt Qjm7856 Hi intensity - 3.0-4.0 02/29/2016 Lipid Ord30 [...] Ord2 RDW 16.2 % 06/30/2015 Comp Metabolic Ynz315 NA 138 mEq/L 06/30/2015 Comp Metabolic Qtv974 K 4.8 mEq/L 06/30/2015 Comp Metabolic Vju016 CL 107 mEq/L 06/30/2015 Comp Metabolic Ujs362 CO2 27.0 mEq/L 06/30/2015 Comp Metabolic Phf152 ANION GAP 9 06/30/2015 Comp Metabolic Wxt599 GLUCOSE 98 mg/dL 06/30/2015 Comp Metabolic Qll970 Creat 1.8 mg/dL 06/30/2015 Comp Metabolic Tah425 eGFR 40 ml/min/1.73m2 06/30/2015 Comp Metabolic Igx581 BUN 20 mg/dL 06/30/2015 Comp Metabolic Mez314 B/C Ratio 11.1 Ratio 06/30/2015 Comp Metabolic Ooz091 CALCIUM 9.1 mg/dL 06/30/2015 Comp Metabolic Edj933 ALK PHOS 39 U/L 06/30/2015 Comp Metabolic Xhj578 AST(SGOT) 21 U/L 06/30/2015 Comp Metabolic Xyx141 ALT(SGPT) 23 U/L 06/30/2015 Comp Metabolic Qgn069 BILI T 0.5 mg/dL 06/30/2015 Comp Metabolic Qqe807 ALBUMIN 4.0 g/dL 06/30/2015 Comp Metabolic Jcc261 TPRO 6.6 g/dL 06/30/2015 Comp Metabolic Qby981 GLOB 2.6 g/dL 06/30/2015 Comp Metabolic Pej402 A/G Ratio 1.5 Ratio 06/30/2015 Comp Metabolic Zue396 Osmo 278 mOsmo 06/30/2015 Pt Fik8234 PT 26.1 seconds 06/30/2015 Pt Dqb7605 INR 2.5 06/30/2015 Pt Bmp2233 Low Intensity - 1.5-2.0 06/30/2015 Pt Wze6168 Mod intensity - 2.0-3.0 06/30/2015 Pt Wzb5483 Hi intensity - 3.0-4.0 06/30/2015 Review of [...] Procedure Codes Date DESTRUCT PREMALG LESION CPT-4: 93083 12/31/2018 DESTRUCT PREMALG LES 2-14 CPT-4: 85544 12/31/2018 OCCULT BLOOD FECES CPT- 4: 43872 04/08/2018 PPPS, SUBSEQ VISIT CPT- 4: G0439 04/03/2018 PPPS, SUBSEQ VISIT CPT- 4: G0439 10/31/2017 PRESCRIP TRANSMIT VIA ERX SY CPT-4: G8553 09/22/2017 THER/PROPH/DIAG INJ SC/IM CPT-4: 18841 01/21/2017 TRIAMCINOLONE ACET INJ NOS CPT-4: J3301 01/21/2017 THER/PROPH/DIAG INJ SC/IM CPT-4: 36926 12/30/2016 ROCEPHIN, PER 250 MG CPT- 4: J0696 12/30/2016 PPPS, SUBSEQ VISIT CPT- 4: G0439 10/25/2016 ROCEPHIN, PER 250 MG CPT- 4: J0696 06/24/2016 THER/PROPH/DIAG INJ SC/IM CPT-4: 45366 06/24/2016 Vital Signs Date Vital 12/31/2018 Blood Pressure 1: 140/80 Code: 8480-6 BMI: 29.0 Code: 50476-4 Heart Rate 1: 86 bpm Height: 5'8" SpO2: 97% Weight: 191 lbs 12/23/2018 Blood Pressure 1: 140/68 Code: 8480-6 BMI: 29.3 Code: 74273-0 Heart Rate 1: 70 bpm Height: 5'8" SpO2: 97% Weight: 193 lbs 04/03/2018 Blood Pressure 1: 128/72 Code: 8480-6 BMI: 29.8 Code: 55419-3 Heart Rate 1: 60 bpm Height: 5'8" SpO2: 96% Weight: 196 lbs 03/31/2018 Blood Pressure 1: 128/76 Code: 8480-6 BMI: 29.8 Code: 41679-9 Heart Rate 1: 56 bpm Height: 5'8" SpO2: 98% Weight: 196 lbs 11/26/2017 Blood Pressure 1: 156/76 Code: 8480-6 BMI: 29.6 Code: 26292-9 Heart Rate 1: 57 bpm Height: 5'8" SpO2: 98% Weight: 195 lbs 10/31/2017 Blood Pressure 1: 136/74 Code: 8480-6 BMI: 29.5 Code: 63186-2 Heart Rate 1: 56 bpm Height: 5'8" SpO2: 95% Waist Measure (cm): 91 cm Weight: 194 lbs 10/07/2017 Blood Pressure 1: 136/72 Code: 8480-6 BMI: 30.3 Code: 72506-7 Heart Rate 1: 58 bpm Height: 5'8" SpO2: 96% Weight: 199 lbs 09/22/2017 Blood Pressure 1: 138/78 Code: 8480-6 BMI: 30.4 Code: 23517-0 Heart Rate 1: 60 bpm Height: 5'8" SpO2: 98% Temperature: 36.6 (C) / 97.9 (F) Weight: 200 lbs 05/08/2017 Blood Pressure 1: 128/80 Code: 8480-6 BMI: 30.0 Code: 84585-0 Heart Rate 1: 75 bpm Height: 5'8" SpO2: 98% Weight: 197 lbs 03/25/2017 Blood Pressure 1: 150/80 Code: 8480-6 BMI: 30.1 Code: 32850-7 Heart Rate 1: 53 bpm Height: 5'8" SpO2: 98% Weight: 198 lbs 01/21/2017 Blood Pressure 1: 156/88 Code: 8480-6 BMI: 29.8 Code: 25521-5 Heart Rate 1: 95 bpm Height: 5'8" SpO2: 98% Temperature: 36.9 (C) / 98.4 (F) Weight: 196 lbs 12/30/2016 Blood Pressure 1: 122/74 Code: 8480-6 BMI: 29.8 Code: 44340-1 Heart Rate 1: 60 bpm Height: 5'8" SpO2: 96% Temperature: 37.1 (C) / 98.8 (F) Weight: 196 lbs 12/26/2016 Blood Pressure 1: 142/74 Code: 8480-6 BMI: 29.8 Code: 65315-1 Heart Rate 1: 58 bpm Height: 5'8" SpO2: 96% Temperature: 36.7 (C) / 98.0 (F) Weight: 196 lbs 12/02/2016 Blood Pressure 1: 128/78 Code: 8480-6 BMI: 30.3 Code: 69688-2 Heart Rate 1: 49 bpm Height: 5'8" SpO2: 98% Temperature: 36.5 (C) / 97.7 (F) Weight: 199 lbs 11/21/2016 Blood Pressure 1: 130/68 Code: 8480-6 BMI: 30.3 Code: 78426-0 Heart Rate 1: 54 bpm Height: 5'8" SpO2: 98% Weight: 199 lbs 10/25/2016 Blood Pressure 1: 150/92 Code: 8480-6 BMI: 29.8 Code: 24288-9 Heart Rate 1: 54 bpm Height: 5'8" SpO2: 97% Waist Measure (cm): 97 cm Weight: 196 lbs 10/23/2016 Blood Pressure 1: 150/92 Code: 8480-6 BMI: 29.9 Code: 99918-4 Heart Rate 1: 54 bpm Height: 5'8" SpO2: 98% Weight: 196 lbs 8 oz 07/29/2016 Blood Pressure 1: 144/72 Code: 8480-6 BMI: 30.3 Code: 65731-7 Heart Rate 1: 54 bpm Height: 5'8" SpO2: 98% Weight: 199 lbs 06/24/2016 Blood Pressure 1: 132/78 Code: 8480-6 BMI: 29.5 Code: 60896-9 Heart Rate 1: 59 bpm Height: 5'8" SpO2: 94% Weight: 194 lbs 02/21/2016 Blood Pressure 1: 138/84 Code: 8480-6 BMI: 30.3 Code: 06644-4 Heart Rate 1: 64 bpm Height: 5'8" SpO2: 95% Weight: 199 lbs 10/18/2015 Blood Pressure 1: 154/84 Code: 8480-6 Blood Pressure 1: 138/72 Code: 8480-6 BMI: 30.4 Code: 99069-3 Heart Rate 1: 68 bpm Height: 5'8" SpO2: 97% Weight: 200 lbs 05/02/2015 Blood Pressure 1: 114/64 Code: 8480-6 BMI: 29.0 Code: 08398-1 Heart Rate 1: 62 bpm Height: 5'8" [...] data Encounters Encounter Performer Location Codes Date 53866 EST. PATIENT, LEVEL III Diagnosis: Diverticulitis of small intestine with perforation and abscess without bleeding[ICD10: K57.00] Gabrielle Husain MD, [facility] CPT-4: 52337 12/23/2018 ([id number]) 63399 EST. PATIENT, LEVEL III Diagnosis: Low back pain[ICD10: M54.5] Diagnosis: Muscle spasm of back[ICD10: M62.830] [facility] CPT-4: 38806 03/31/2018 ([id number]) 95213 EST. PATIENT, LEVEL III Diagnosis: Actinic keratosis[ICD10: L57.0] Diagnosis: Other hypertrophic disorders of the skin[ICD10: L91.8] [facility] CPT-4: 21219 11/26/2017 ([id number]) 42121 EST. PATIENT, LEVEL IV Diagnosis: Essential (primary) hypertension[ICD10: I10] Diagnosis: Mild cognitive impairment, so stated[ICD10: G31.84] [facility] CPT-4: 53049 10/07/2017 ([id number]) 88213 EST. PATIENT, LEVEL III Diagnosis: Pneumonia due to other streptococci[ICD10: J15.4] Diagnosis: Cough[ICD10: R05] Amanda Husain MD, [facility] CPT-4: 41683 09/22/2017 [id number] EST. PATIENT, LEVEL IV Diagnosis: Left lower quadrant pain[ICD10: R10.32] Diagnosis: Other fatigue[ICD10: R53.83] Gabrielle Husain MD, [facility] CPT-4: 95980 05/08/2017 ([id number]) 24817 EST. PATIENT, LEVEL III Diagnosis: Essential (primary) hypertension[ICD10: I10] Amanda Husain MD, [facility] CPT-4: 22537 03/25/2017 ([id number]) 34768 EST. PATIENT, LEVEL III Diagnosis: Cough[ICD10: R05] Diagnosis: Allergic rhinitis due to pollen[ICD10: J30.1] Leidy Husain MD, [facility] CPT-4: 38414 01/21/2017 91389 EST. PATIENT, LEVEL III Diagnosis: Other allergic rhinitis[ICD10: J30.89] Diagnosis: Cough[ICD10: R05] Gabrielle Husain MD, [facility] CPT-4: 51317 12/30/2016 ([id number]) 73850 EST. PATIENT, LEVEL III Diagnosis: Cough[ICD10: R05] Diagnosis: Pneumonia, unspecified organism[ICD10: J18.9] Leidy Husain MD, [facility] CPT-4: 53842 12/26/2016 ([id number]) 05429 EST. PATIENT, LEVEL III Diagnosis: Pneumonia due to other streptococci[ICD10: J15.4] Diagnosis: Cough[ICD10: R05] Amanda Husain MD, [facility] CPT-4: 85582 12/02/2016 ([id number]) 00453 EST. PATIENT, LEVEL III Diagnosis: Essential (primary) hypertension[ICD10: I10] [facility] [facility] CPT-4: 96737 11/21/2016 ([id number]) 53159 EST. PATIENT, LEVEL IV Diagnosis: Essential (primary) hypertension[ICD10: I10] Diagnosis: Mixed hyperlipidemia[ICD10: E78.2] Amanda Husain MD, [facility] CPT- 4: 58599 10/23/2016 [id number] EST. PATIENT, LEVEL IV Diagnosis: Other allergic rhinitis[ICD10: J30.89] Diagnosis: Cough[ICD10: R05] Gabrielle Husain MD, [facility] CPT-4: 81218 07/29/2016 ([id number]) Miscellaneous no charge Diagnosis: Pneumonia, unspecified organism[ICD10: J18.9] Gabrielle Husain MD, [facility] CPT-4: 95906 06/27/2016 ([id number]) 69361 EST. PATIENT, LEVEL IV Diagnosis: Essential (primary) hypertension[ICD10: I10] Diagnosis: Pneumonia, unspecified organism[ICD10: J18.9] Diagnosis: Cough[ICD10: R05] Diagnosis: Mixed hyperlipidemia[ICD10: E78.2] Amanda Husain MD, [facility] CPT- 4: 37311 06/24/2016 ([id number]) 15379 EST. PATIENT, LEVEL IV Diagnosis: Mixed hyperlipidemia[ICD10: E78.2] Diagnosis: Essential (primary) hypertension[ICD10: I10] Diagnosis: Gastro-esophageal reflux disease without esophagitis[ICD10: K21.9] Amanda Husain MD, [facility] CPT-4: 40246 02/21/2016 ([id number]) 14101 EST. PATIENT, LEVEL IV Diagnosis: Essential (primary) hypertension[ICD10: I10] Diagnosis: Mixed hyperlipidemia[ICD10: E78.2] Diagnosis: Chronic lymphocytic 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[ICD10: C91.10] Amanda Husain MD, [facility] CPT-4: 13092 10/18/2015 ([id number]) OFFICE VISIT, NEW - LEVEL 3 Diagnosis: Diverticulitis[ICD9: 562.11] Amanda Husain MD, [facility] CPT-4: 19838 05/02/2015 Plan of Care Planned Activity Notes Codes Status Date Visit Plan: Actinic Keratosis - treated with cryotherapy x 3, pt advised on how to appropriately care for the lesion. Call if not improved after thorough healing - apply neosporin to skin lesions. 12/31/2018 Appointment: Amanda Husain WPtel: [address] [place], [place] [id number] [place] (30 min) Complex 12/31/2018 Patient Education: Patient Medication Summary Completed 12/31/2018 Visit Plan: Diverticulitis - rx for antibiotic sent to pt's pharmacy - pt advised to avoid seeds, nuts, popcorn, or any other food which has been proven to upset the pt's stomach. 12/23/2018 Appointment: Gabrielle Corona WPtel: [phone] [facility] [place] (15 min) Moderate 12/23/2018 Patient Education: Patient Medication Summary Completed 12/23/2018 [phone] [facility] [place] ([facility] min) Complex 12/16/2018 Appointment: Lab [...] improve. 03/31/2018 [facility] [phone] [phone] [place] (15 min) Moderate 03/31/2018 Patient Education: Patient Medication Summary Completed 03/31/2018 Visit Plan: Wound Instructions - Pt was instructed to keep the wound clean, wash with antibacterial soap, use triple antibiotic ointment, call if redness, pustular drainage, or any other acute concerns. 11/26/2017 [facility]ment: [phone] [facility] [facility] 11/26/2017 Patient [...] care surrogate. 10/31/2017 [facility]: [facility] [phone] [phone] [facility] - Annual Wellness Visit 10/31/2017 Patient [...] loss. 10/07/2017 App[facility]ment: [phone] [facility] (30 min) Complex 10/07/2017 Patient Education: Patient Medication Summary Completed 10/07/2017 Patient Education: Obesity Completed 10/07/2017 Patient Education: Hypertension Completed 10/07/2017 Visit Plan: Pneumonia - Pt has been diagnosed with pneumonia by physical exam. Antibiotics have been ordered. The pt is aware of the diagnosis and the need for acute treatment of this illness. 09/22/2017 Appointment: Amanda Husain WPtel: [phone] [facility] (15 min) Moderate 09/22/2017 Patient Education: [...] concerns. 05/08/2017 Appointment: Gabrielle Corona WPtel: [phone] [facility] (30 min) Complex 05/08/2017 Patient Education: [...] daily. 03/25/2017 Appointment: [phone] [facility] [place] (15 min) Moderate 03/25/2017 Patient Education: Patient Medication Summary Completed 03/25/2017 Appointment: Leidy Angulo WPtel: [phone] [phone] [place] (15 min) Moderate 01/31/2017 Visit Plan: URI/Allergies - Pt advised to increase fluids, vitamin C. Discussed natural and expected course of this diagnosis and need to alert me if symptoms do not follow expected course, or if any worse. RX sent to patient's pharmacy. 01/21/2017 Appointment: Leidy Angulo WPtel: [phone] [place] [phone] (15 min) Moderate 01/21/2017 Patient Education: Patient [...] the medication. 12/30/2016 Appointment: Leidy Angulo WPtel: Formerly named [facility] [place] [phone] (15 min) Moderate 12/30/2016 Appointment: Gabrielle Corona WPtel: Formerly named [facility] [facility] [place] (30 min) Complex 12/30/2016 Patient [...] the levaquin. 12/26/2016 Appointment: Leidy Angulo WPtel: Formerly named [phone] [place] (15 min) Moderate 12/26/2016 Patient [...] blood pressure readings at home. 11/21/2016 Appointment: Rodrigue [phone] [facility] (15 min) Moderate 11/21/2016 [...] surrogate. 10/25/2016 [facility]: [phone] [phone] [facility] - Annual Wellness Visit 10/25/2016 [...] Husain WPtel: [phone] [facility] (15 min) Moderate 10/23/2016 Patient Education: [...] concerns. 07/29/2016 Appointment: [phone] [facility] (15 min) Moderate 07/29/2016 Patient [...] to medications. 06/24/2016 Appointment: [phone] [facility] (15 min) Moderate 06/24/2016 Patient Education: Patient [...] improving. 02/21/2016 Appointment: [facility] [phone] [facility] [place] (15 min) Moderate 02/21/2016 Patient Education: [...] Care Plan: COMPLETE CBC AUTOMATED LOINC : 55066-7 Ordered 05/02/2015 Care Plan: ASSAY OF TROPONIN [...] concerns. Increase the ramipril to 10mg daily. . Actinic Keratosis - treated with cryotherapy x 3, pt advised on how to appropriately care for the lesion. Call if not improved after thorough healing - apply neosporin to skin lesions. HOLD AMIODARONE X 7 DAYS LEVAQUIN 500MG [...] her DOPA paperwork for health care surrogate. roya or [facility] - take three times daily x [...] any worse. RX sent to patient's pharmacy. check INR today and - come by [...]
--- OUTSIDE RECORDS SUMMARY | 2019-05-19 11:16 | XMS REPORT | CCD ---
Author Author Amanda Celestin MD, [facility] Address [address] [place] [address] Phone Care Team Providers Care Quality Improvement Coordinator Name Role Phone PP Unavailable CCM Unavailable Summary Purpose Interface Exchange Insurance Providers Payer name Policy type / Coverage type Covered republican ID Effective Begin Date Effective End Date WPS Medicare Part B [id number] Unknown [employer] [id number] Unknown Family history Brother Diagnosis Age At [...] Unknown Retired 05/02/[address]: 2553573 Former smoker Quit in 1966 05/02/2015 Number [...] Instructions Zithromax Z-Carlo 250 mg tablet RxNorm: 507178 2 Tablet(s) PO on 1 st day then 1 daily x 4 days ZPACK X 1 01/15/2019 No Stop Date Active metronidazole 500 mg tablet RxNorm: 757644 1 Tablet(s) PO TID 12/23/2018 01/01/2019 Inactive omeprazole 20 mg capsule,delayed release RxNorm: 908414 TAKE 1 CAPSULE BY MOUTH ONCE DAILY 12/07/2018 No Stop Date Active metoprolol tartrate 25 mg tablet RxNorm: 497849 Tablet(s) TAKE 1 TABLET BY MOUTH TWICE DAILY 10/16/2018 No Stop Date Active metoprolol tartrate 25 mg tablet RxNorm: 831368 TAKE 1 TABLET BY MOUTH TWICE DAILY 07/13/2018 10/15/2018 Inactive Trilipix 135 mg capsule,delayed release RxNorm: 017224 1 Capsule(s) PO daily 06/17/2018 10/14/2018 Inactive ramipril 10 mg capsule RxNorm: 766236 TAKE ONE CAPSULE BY MOUTH ONCE DAILY 06/15/2018 No Stop Date Active omeprazole 20 mg capsule,delayed release RxNorm: 233775 Capsule(s) TAKE ONE CAPSULE BY MOUTH ONCE DAILY 06/03/2018 No Stop Date Active omeprazole 20 mg capsule,delayed release RxNorm: 229809 Capsule(s) TAKE ONE CAPSULE BY MOUTH ONCE DAILY 06/02/2018 06/02/2018 Inactive metoprolol tartrate 25 mg tablet RxNorm: 627607 TAKE ONE TABLET BY MOUTH TWICE DAILY 02/16/2018 07/12/2018 Inactive omeprazole 20 mg capsule,delayed release RxNorm: 011946 TAKE ONE CAPSULE BY MOUTH ONCE DAILY 01/05/2018 06/01/2018 Inactive metoprolol tartrate 25 mg tablet RxNorm: 577395 TAKE ONE TABLET BY MOUTH TWICE DAILY 10/27/2017 02/15/2018 Inactive azithromycin 250 mg tablet RxNorm: 574075 1 Tablet(s) PO UD 2 tabs on day #1, then 1 pill daily x 4 days 09/22/2017 11/25/2017 Inactive omeprazole 20 mg capsule,delayed release RxNorm: 186210 TAKE ONE CAPSULE BY MOUTH ONCE DAILY 06/16/2017 12/12/2017 Inactive metronidazole 500 mg tablet RxNorm: 781714 1 Tablet(s) PO TID 05/08/2017 05/14/2017 Inactive ramipril 10 mg capsule RxNorm: 249402 1 Capsule(s) PO daily 03/25/2017 03/19/2018 Inactive Kenalog 40 mg/mL suspension for injection RxNorm: 3991468 Milliliter(s) Inj 01/21/2017 01/21/2017 Inactive ceftriaxone 500 mg solution for injection RxNorm: 9080074 Inj 12/30/2016 12/30/2016 Inactive Phenergan with Codeine Syrup RxNorm: 5-10 Milliliter(s) PO Q6 PRN 12/26/2016 No Stop Date Active Levaquin 500 mg tablet RxNorm: 367978 1 Tablet(s) PO daily 12/26/2016 01/01/2017 Inactive Tessalon Perles 100 mg capsule RxNorm: 016295 1 Capsule(s) PO TID as needed 12/26/2016 01/04/2017 Inactive prednisone 20 mg tablet RxNorm: 566321 1 Tablet(s) PO BID 12/26/2016 12/30/2016 Inactive omeprazole 20 mg capsule,delayed release RxNorm: 565306 TAKE ONE CAPSULE BY MOUTH ONCE DAILY 12/16/2016 06/13/2017 Inactive cefdinir 300 mg capsule RxNorm: 551028 1 Capsule(s) PO BID 12/02/2016 12/08/2016 Inactive azithromycin 250 mg tablet RxNorm: 118015 Tablet(s) 2 tabs on day #1, then one tab PO daily x 4 more days 12/02/2016 12/25/2016 Inactive metoprolol tartrate 25 mg tablet RxNorm: 669390 1 Tablet(s) PO BID 10/23/2016 10/17/2017 Inactive metoprolol tartrate 25 mg tablet RxNorm: 007965 1 Tablet(s) PO BID 10/23/2016 10/22/2016 Inactive ceftriaxone 500 mg solution for injection RxNorm: 5825841 Inj 06/24/2016 06/24/2016 Inactive cefdinir 300 mg capsule RxNorm: 292376 1 Capsule(s) PO BID 06/24/2016 06/30/2016 Inactive omeprazole 20 mg capsule,delayed release RxNorm: 215087 TAKE ONE CAPSULE BY MOUTH DAILY 06/07/2016 12/03/2016 Inactive omeprazole 20 mg capsule,delayed release RxNorm: 519567 TAKE ONE CAPSULE BY MOUTH DAILY 01/29/2016 05/27/2016 Inactive metoprolol tartrate 50 mg tablet RxNorm: 228196 Tablet(s) TAKE ONE TABLET BY MOUTH DAILY 10/11/2015 10/10/2015 Inactive metoprolol tartrate 50 mg tablet RxNorm: 996464 TAKE ONE TABLET BY MOUTH DAILY 10/11/2015 10/22/2016 Inactive omeprazole 20 mg capsule,delayed release RxNorm: 977281 TAKE ONE CAPSULE BY MOUTH DAILY 08/28/2015 01/24/2016 Inactive metoprolol tartrate 50 mg tablet RxNorm: 597439 TAKE ONE TABLET BY MOUTH DAILY 08/11/2015 10/09/2015 Inactive metoprolol tartrate 50 mg tablet RxNorm: 890471 1 Tablet(s) PO daily 06/14/2015 08/10/2015 Inactive omeprazole 20 mg capsule,delayed release RxNorm: 674509 1 Capsule(s) PO daily 05/29/2015 08/26/2015 Inactive omeprazole 20 mg capsule,delayed release RxNorm: 268122 1 Capsule(s) PO daily 05/29/2015 05/28/2015 Inactive metronidazole 500 mg tablet RxNorm: 603455 1 Tablet(s) PO TID 05/02/2015 05/08/2015 Inactive finasteride 5 mg tablet RxNorm: 363635 1 Tablet(s) PO daily No Start Date Active warfarin 5 mg tablet RxNorm: 395721 1 Tablet(s) PO daily No Start Date Active Aspirin Childrens 81 mg chewable tablet RxNorm: 278071 1 Tablet(s) PO daily No Start Date Active amiodarone 200 mg tablet RxNorm: 565950 1 Tablet(s) PO daily No Start Date Active vitamin E (dl, acetate) 1,000 unit capsule RxNorm: 886761 1 Capsule(s) PO daily No Start Date Active atorvastatin 80 mg tablet RxNorm: 587222 1 Tablet(s) PO daily No Start Date Active Fish Oil 120 mg-180 mg capsule RxNorm: 250350 1 Capsule(s) PO BID No Start Date 10/30/2017 Inactive metoprolol tartrate 50 mg tablet RxNorm: 840191 1 Tablet(s) PO daily No Start Date 06/13/2015 Inactive Zetia 10 mg tablet RxNorm: 448369 1 Tablet(s) PO daily No Start Date 10/17/2015 Inactive ramipril 5 mg capsule RxNorm: 594715 1 Capsule(s) PO daily No Start Date 03/24/2017 Inactive Tessalon Perles 100 mg capsule RxNorm: 384228 1 Capsule(s) PO TID as needed No Start Date 12/25/2016 Inactive omeprazole 20 mg capsule,delayed release RxNorm: 147353 1 Capsule(s) PO daily No Start Date 05/28/2015 Inactive Zithromax Z-Carlo 250 mg tablet RxNorm: 615056 2 Tablet(s) PO on 1 st day then 1 daily x 4 days ZPACK X 1 No Start Date 01/14/2019 Inactive Trilipix 135 mg capsule,delayed release RxNorm: 520609 1 Capsule(s) PO daily No Start Date 06/16/2018 Inactive Centrum Silver tablet RxNorm: 1 Tablet(s) PO daily No Start Date 10/30/2017 Inactive Medication Administered Medication Codes Instructions Start Date Status Kenalog 40 mg/mL suspension for injection RxNorm: 1959842 Milliliter 01/21/2017 No longer Active ceftriaxone 500 mg solution for injection RxNorm: 3608218 12/30/2016 No longer Active ceftriaxone 500 mg solution for injection RxNorm: 4476776 06/24/2016 No longer Active Immunizations Vaccine Codes [...] (primary) hypertension ICD-10: I10 ICD-9: 401.9 10/07/2017 Cough ICD-10: R05 ICD-9: 786.2 09/22/2017 Pneumonia due to other streptococci ICD-10: J15.4 ICD-9: 482.39 09/22/2017 Other fatigue ICD-10: R53.83 ICD-9: 780.79 05/08/2017 Left lower quadrant pain ICD-10: R10.32 ICD-9: 789.04 05/08/2017 Allergic rhinitis due to pollen ICD-10: [...] Code Item Item Code Result Date Pt Blx1705 PT 21.0 seconds 01/12/2019 Pt Lsd7657 INR 1.9 01/12/2019 Pt Rmc7464 Low Intensity - 1.5-2.0 01/12/2019 Pt Hnd2293 Mod intensity - 2.0-3.0 01/12/2019 Pt Jqn4561 Hi intensity - 3.0-4.0 01/12/2019 Pt Lan4632 PT 31.8 seconds 01/07/2019 Pt Onh3297 INR 3.1 01/07/2019 Pt Fbp9618 Low Intensity - 1.5-2.0 01/07/2019 Pt Gfr1526 Mod intensity - 2.0-3.0 01/07/2019 Pt Occ9688 Hi intensity - 3.0-4.0 01/07/2019 Pt Tuw4466 PT 48.2 seconds 01/05/2019 Pt Ssz8357 INR 5.2 01/05/2019 Pt Mbs0397 Low Intensity - 1.5-2.0 01/05/2019 Pt Vpu3453 Mod intensity - 2.0-3.0 01/05/2019 Pt Jge3155 Hi intensity - 3.0-4.0 01/05/2019 Pt Tlw5402 PT 17.6 seconds 12/25/2018 Pt Jwx2921 INR 1.5 12/25/2018 Pt Uoy2884 Low Intensity - 1.5-2.0 12/25/2018 Pt Gvo0596 Mod intensity - 2.0-3.0 12/25/2018 Pt Qtp2398 Hi intensity - 3.0-4.0 12/25/2018 Ferritin Ord22 FERRITIN 47.9 ng/mL 12/10/2018 Renal Rwq856 NA 142 mEq/L 12/10/2018 Renal Zib221 K 4.3 mEq/L 12/10/2018 Renal Dcr005 CL 106 mEq/L 12/10/2018 Renal Waq280 CO2 30.0 mEq/L 12/10/2018 Renal Tvs766 ANION GAP 10 12/10/2018 Renal Ehb612 Osmo 286 mOsmo 12/10/2018 Renal Gil632 GLUCOSE 105 mg/dL 12/10/2018 Renal Nhu311 BUN 20 mg/dL 12/10/2018 Renal Xxa232 Creat 1.4 mg/dL 12/10/2018 Renal Txu691 eGFR 52 ml/min/1.73m2 12/10/2018 Renal Ngw059 B/C Ratio 14.1 Ratio 12/10/2018 Renal Taz292 CALCIUM 9.7 mg/dL 12/10/2018 Renal Fiy118 PHOS 3.3 mg/dL 12/10/2018 Renal Pml597 ALBUMIN 4.0 g/dL 12/10/2018 Cbc With Differential Ord2 WBC 7.65 K/ul [...] 30.0 pg 12/10/2018 Cbc With Differential Ord2 [place]% 10.5 % 12/10/2018 Cbc With Differential Ord2 MCHC 32.6 pg 12/10/2018 Cbc With Differential Ord2 Eos% 5.2 % 12/10/2018 Cbc With Differential Ord2 Baso% 0.3 % 12/10/2018 Cbc With Differential Ord2 PLT 281 K/ul 12/10/2018 Cbc With Differential Ord2 Neut ABS# 4.34 K/ul 12/10/2018 Cbc With Differential Ord2 RDW 14.4 % 12/10/2018 Cbc With Differential Ord2 Lymph ABS# 2.09 K/ul 12/10/2018 Cbc With Differential Ord2 [place] ABS# 0.8 K/ul 12/10/2018 Cbc With Differential Ord2 Eos ABS# 0.4 K/ul 12/10/2018 Cbc With Differential Ord2 Baso ABS# 0.0 K/ul 12/10/2018 Uric Acid Ord77 Uric A 4.6 mg/dL 12/10/2018 Random Urine Protein/Creatinine Ratio Lla3169 U Prot 9.0 mg/dl 12/10/2018 Random Urine Protein/Creatinine Ratio Zkd4496 U CREAT 126.0 mg/dL 12/10/2018 Random Urine Protein/Creatinine Ratio Kuv6639 R MTP/Creat Ratio 0.07 12/10/2018 Urinalysis Ord28 U-Color Yellow 12/10/2018 Urinalysis [...] 17.8 % 12/10/2018 Vitamin D 25 Oh Gzx5065 VITAMIN D, 25 HYDROXY 27.29 ng/mL 12/10/2018 Pt Nzs5677 PT 23.1 seconds 11/05/2018 Pt Iwt8212 INR 2.1 11/05/2018 Pt Ssx1453 Low Intensity - 1.5-2.0 11/05/2018 Pt Kst1140 Mod intensity - 2.0-3.0 11/05/2018 Pt Jzm6585 Hi intensity - 3.0-4.0 11/05/2018 Pt Dax1382 PT 29.8 seconds 08/17/2018 Pt Ynw6578 INR 2.8 08/17/2018 Pt Xhp9672 Low Intensity - 1.5-2.0 08/17/2018 Pt Ghw3544 Mod intensity - 2.0-3.0 08/17/2018 Pt Xod0008 Hi intensity - 3.0-4.0 08/17/2018 Pt Qdn9333 PT 27.7 seconds 05/18/2018 Pt Qhp8758 INR 2.6 05/18/2018 Pt Lmq4164 Low Intensity - 1.5-2.0 05/18/2018 Pt Dqh8991 Mod intensity - 2.0-3.0 05/18/2018 Pt Pjo9882 Hi intensity - 3.0-4.0 05/18/2018 Uric Acid [...] 30.9 pg 05/18/2018 Cbc With Differential Ord2 [place]% 13.8 % 05/18/2018 Cbc With Differential Ord2 MCHC 33.7 pg 05/18/2018 Cbc With Differential Ord2 Eos% 6.8 % 05/18/2018 Cbc With Differential Ord2 PLT 227 K/ul 05/18/2018 Cbc With Differential Ord2 Baso% 0.2 % 05/18/2018 Cbc With Differential Ord2 Neut ABS# 2.98 K/ul 05/18/2018 Cbc With Differential Ord2 RDW 14.1 % 05/18/2018 Cbc With Differential Ord2 Lymph ABS# 1.94 K/ul 05/18/2018 Cbc With Differential Ord2 [place] ABS# 0.9 K/ul 05/18/2018 Cbc With Differential Ord2 Eos ABS# 0.4 K/ul 05/18/2018 Cbc With Differential Ord2 Baso ABS# 0.0 K/ul 05/18/2018 Tibc Ord40 Iron 68 ug/dl 05/18/2018 [...] refrigerated) 05/18/2018 Urinalysis Ord28 U-Yeast NEGATIVE 05/18/2018 Random Urine Protein/Creatinine Ratio Wcj8859 U Prot 7.0 mg/dl 05/18/2018 Random Urine Protein/Creatinine Ratio Fni7653 U CREAT 75.0 mg/dL 05/18/2018 Random Urine Protein/Creatinine Ratio Ttl9674 R MTP/Creat Ratio 0.09 05/18/2018 Parathyroid Hormone Dee000 PTH 36.20 pg/ml 05/18/2018 Renal Xvf317 NA 141 mEq/L 05/18/2018 Renal Sfw485 K 4.0 mEq/L 05/18/2018 Renal Cbp180 CL 107 mEq/L 05/18/2018 Renal Vmz142 CO2 27.0 mEq/L 05/18/2018 Renal Kda160 ANION GAP 11 05/18/2018 Renal Ygr934 Osmo 282 mOsmo 05/18/2018 Renal Ypw291 GLUCOSE 83 mg/dL 05/18/2018 Renal Hda320 BUN 18 mg/dL 05/18/2018 Renal Zcg193 Creat 1.4 mg/dL 05/18/2018 Renal Qru461 eGFR 55 ml/min/1.73m2 05/18/2018 Renal Ggi431 B/C Ratio 13.3 Ratio 05/18/2018 Renal Pmi449 CALCIUM 9.0 mg/dL 05/18/2018 Renal Qqa331 PHOS 2.9 mg/dL 05/18/2018 Renal Kzz570 ALBUMIN 4.0 g/dL 05/18/2018 Ferritin Ord22 FERRITIN 43.3 ng/mL 05/18/2018 Vitamin D 25 Oh Eer2086 VITAMIN D, 25 HYDROXY 27.40 ng/mL 05/18/2018 Metabolic Ord15 NA 139 mEq/L [...] Metabolic Ord15 CALCIUM 9.2 mg/dL 03/23/2018 Pt Vky4144 PT 29.0 seconds 03/13/2018 Pt Qog6638 INR 2.7 03/13/2018 Pt Rum4010 Low Intensity - 1.5-2.0 03/13/2018 Pt Bqc8569 Mod intensity - 2.0-3.0 03/13/2018 Pt Cyz8576 Hi intensity - 3.0-4.0 03/13/2018 Pt Xna5192 PT 31.6 seconds 03/04/2018 Pt Qwh7787 INR 3.0 03/04/2018 Pt Xnh0894 Low Intensity - 1.5-2.0 03/04/2018 Pt Bbi2317 Mod intensity - 2.0-3.0 03/04/2018 Pt Kuw8917 Hi intensity - 3.0-4.0 03/04/2018 Pt Xah9658 PT 33.3 seconds 01/29/2018 Pt Ljp4326 INR 3.2 01/29/2018 Pt Ebk9576 Low Intensity - 1.5-2.0 01/29/2018 Pt Skf9103 Mod intensity - 2.0-3.0 01/29/2018 Pt Akq1925 Hi intensity - 3.0-4.0 01/29/2018 Pt Byl8476 PT 26.1 seconds 01/21/2018 Pt Kpl6337 INR 2.4 01/21/2018 Pt Xpv6619 Low Intensity - 1.5-2.0 01/21/2018 Pt Gmf2204 Mod intensity - 2.0-3.0 01/21/2018 Pt Whp2781 Hi intensity - 3.0-4.0 01/21/2018 Pt Hta8278 PT 35.7 seconds 01/09/2018 Pt Vrf9194 INR 3.5 01/09/2018 Pt Krd2106 Low Intensity - 1.5-2.0 01/09/2018 Pt Fha6502 Mod intensity - 2.0-3.0 01/09/2018 Pt Epl0398 Hi intensity - 3.0-4.0 01/09/2018 Pt Asx5598 PT 23.8 seconds 12/04/2017 Pt Wet7207 INR 2.1 12/04/2017 Pt Icf5453 Low Intensity - 1.5-2.0 12/04/2017 Pt Bqo2577 Mod intensity - 2.0-3.0 12/04/2017 Pt Yhq3156 Hi intensity - 3.0-4.0 12/04/2017 Pt Ioy0288 PT 32.3 seconds 11/12/2017 Pt Tdn5613 INR 3.1 11/12/2017 Pt Mha7608 Low Intensity - 1.5-2.0 11/12/2017 Pt Xvj7975 Mod intensity - 2.0-3.0 11/12/2017 Pt Epz0677 Hi intensity - 3.0-4.0 11/12/2017 Urinalysis Ord28 [...] 10/20/2017 Urinalysis Ord28 U-Yeast NEGATIVE 10/20/2017 Pt Lif3633 PT 16.6 seconds 10/20/2017 Pt Ezt6908 INR 1.4 10/20/2017 Pt Wmf3534 Low Intensity - 1.5-2.0 10/20/2017 Pt Hwr9753 Mod intensity - 2.0-3.0 10/20/2017 Pt Gda0537 Hi intensity - 3.0-4.0 10/20/2017 Renal Qsf508 NA 142 mEq/L 10/20/2017 Renal Grh066 K 4.5 mEq/L 10/20/2017 Renal Vyq941 CL 107 mEq/L 10/20/2017 Renal Emp334 CO2 28.0 mEq/L 10/20/2017 Renal Iuv170 ANION GAP 12 10/20/2017 Renal Smq700 Osmo 288 mOsmo 10/20/2017 Renal Zva571 GLUCOSE 96 mg/dL 10/20/2017 Renal Emj666 BUN 27 mg/dL 10/20/2017 Renal Rmc063 Creat 1.6 mg/dL 10/20/2017 Renal Dtj849 eGFR 46 ml/min/1.73m2 10/20/2017 Renal Bfq563 B/C Ratio 17.2 Ratio 10/20/2017 Renal Aow655 CALCIUM 9.4 mg/dL 10/20/2017 Renal Tyu060 PHOS 3.0 mg/dL 10/20/2017 Renal Rvm970 ALBUMIN 4.2 g/dL 10/20/2017 Pt Fwq5856 PT 31.2 seconds 10/17/2017 Pt Ekc6423 INR 3.0 10/17/2017 Pt Ycn3241 Low Intensity - 1.5-2.0 10/17/2017 Pt Jvw9986 Mod intensity - 2.0-3.0 10/17/2017 Pt Vwi1019 Hi intensity - 3.0-4.0 10/17/2017 Cbc With [...] 15.3 % 05/08/2017 Cbc With Differential Ord2 [place]% 13.5 % 05/08/2017 Cbc With Differential Ord2 [...] 1.29 K/ul 05/08/2017 Cbc With Differential Ord2 [place] ABS# 1.1 K/ul 05/08/2017 Cbc With Differential Ord2 Eos ABS# 0.2 K/ul 05/08/2017 Cbc With Differential Ord2 Baso ABS# 0.0 K/ul 05/08/2017 Comp Metabolic Dbb368 NA 139 mEq/L 05/08/2017 Comp Metabolic Rss334 K 4.1 mEq/L 05/08/2017 Comp Metabolic Tdb137 CL 103 mEq/L 05/08/2017 Comp Metabolic Sqs855 CO2 28.0 mEq/L 05/08/2017 Comp Metabolic Mdv081 ANION GAP 12 05/08/2017 Comp Metabolic Aou545 GLUCOSE 75 mg/dL 05/08/2017 Comp Metabolic Iri513 Creat 1.3 mg/dL 05/08/2017 Comp Metabolic Sti135 eGFR 55 ml/min/1.73m2 05/08/2017 Comp Metabolic Blf958 BUN 20 mg/dL 05/08/2017 Comp Metabolic Vkl060 B/C Ratio 14.9 Ratio 05/08/2017 Comp Metabolic Kgn686 CALCIUM 8.8 mg/dL 05/08/2017 Comp Metabolic Fjn484 ALK PHOS 51 U/L 05/08/2017 Comp Metabolic Wau750 AST(SGOT) 30 U/L 05/08/2017 Comp Metabolic Uss494 ALT(SGPT) 31 U/L 05/08/2017 Comp Metabolic Xpj017 BILI T 0.9 mg/dL 05/08/2017 Comp Metabolic Xvo584 ALBUMIN 4.0 g/dL 05/08/2017 Comp Metabolic Yev041 TPRO 6.5 g/dL 05/08/2017 Comp Metabolic Mjp601 GLOB 2.6 g/dL 05/08/2017 Comp Metabolic Zlu245 A/G Ratio 1.5 Ratio 05/08/2017 Comp Metabolic Bcp649 Osmo 279 mOsmo 05/08/2017 Pt Fjd0620 PT 22.7 seconds 11/22/2016 Pt Tsb5899 INR 2.1 11/22/2016 Pt Jif0562 Low Intensity - 1.5-2.0 11/22/2016 Pt Poe9190 Mod intensity - 2.0-3.0 11/22/2016 Pt Tbd7200 Hi intensity - 3.0-4.0 11/22/2016 Pt Dod0734 PT 24.4 seconds 10/25/2016 Pt Vfi3114 INR 2.3 10/25/2016 Pt Fok2314 Low Intensity - 1.5-2.0 10/25/2016 Pt Fps8045 Mod intensity - 2.0-3.0 10/25/2016 Pt Oij9963 Hi intensity - 3.0-4.0 10/25/2016 Pt Jsa1712 PT 23.5 seconds 09/04/2016 Pt Txv8256 INR 2.2 09/04/2016 Pt Wxd1871 Low Intensity - 1.5-2.0 09/04/2016 Pt Ias5455 Mod intensity - 2.0-3.0 09/04/2016 Pt Nfg8864 Hi intensity - 3.0-4.0 09/04/2016 Pt Dvr0979 PT 26.1 seconds 07/09/2016 Pt Czl7397 INR 2.6 07/09/2016 Pt Jws3914 Low Intensity - 1.5-2.0 07/09/2016 Pt Zcr0354 Mod intensity - 2.0-3.0 07/09/2016 Pt Yul4596 Hi intensity - 3.0-4.0 07/09/2016 Pt Emw3017 PT 19.4 seconds 06/24/2016 Pt Phj2565 INR 1.7 06/24/2016 Pt Xpt7665 Low Intensity - 1.5-2.0 06/24/2016 Pt Gey8035 Mod intensity - 2.0-3.0 06/24/2016 Pt Wku2075 Hi intensity - 3.0-4.0 06/24/2016 Pt Cww2967 PT 28.9 seconds 04/26/2016 Pt Aef5026 INR 2.9 04/26/2016 Pt Osf8198 Low Intensity - 1.5-2.0 04/26/2016 Pt Hwf3138 Mod intensity - 2.0-3.0 04/26/2016 Pt Whb5078 Hi intensity - 3.0-4.0 04/26/2016 Lipid Ord30 CHOL 181 mg/dL 02/29/2016 Lipid Ord30 HDL 33.0 mg/dl 02/29/2016 Lipid Ord30 TRIG 248 mg/dL 02/29/2016 Lipid Ord30 LDL 98 mg/dL 02/29/2016 Lipid Ord30 C/HDL 5.5 Ratio 02/29/2016 Pt Vxz3182 PT 21.8 seconds 02/29/2016 Pt Udm2897 INR 2.0 02/29/2016 Pt Xhm0045 Low Intensity - 1.5-2.0 02/29/2016 Pt Ehr0668 Mod intensity - 2.0-3.0 02/29/2016 Pt Ibs6205 Hi intensity - 3.0-4.0 02/29/2016 Tsh Ord6 hTSH II 1.21 uIU/mL 02/29/2016 Cbc With Differential Ord2 WBC 14.7 [...] Ord2 RDW 16.2 % 06/30/2015 Comp Metabolic Kpw182 NA 138 mEq/L 06/30/2015 Comp Metabolic Jnm845 K 4.8 mEq/L 06/30/2015 Comp Metabolic Pip208 CL 107 mEq/L 06/30/2015 Comp Metabolic Knb761 CO2 27.0 mEq/L 06/30/2015 Comp Metabolic Abf195 ANION GAP 9 06/30/2015 Comp Metabolic Gcl614 GLUCOSE 98 mg/dL 06/30/2015 Comp Metabolic Ohm229 Creat 1.8 mg/dL 06/30/2015 Comp Metabolic Gmz556 eGFR 40 ml/min/1.73m2 06/30/2015 Comp Metabolic Oor534 BUN 20 mg/dL 06/30/2015 Comp Metabolic Wkl879 B/C Ratio 11.1 Ratio 06/30/2015 Comp Metabolic Rmg874 CALCIUM 9.1 mg/dL 06/30/2015 Comp Metabolic Vef958 ALK PHOS 39 U/L 06/30/2015 Comp Metabolic Rve192 AST(SGOT) 21 U/L 06/30/2015 Comp Metabolic Vrs392 ALT(SGPT) 23 U/L 06/30/2015 Comp Metabolic Ecl799 BILI T 0.5 mg/dL 06/30/2015 Comp Metabolic Wez521 ALBUMIN 4.0 g/dL 06/30/2015 Comp Metabolic Veq380 TPRO 6.6 g/dL 06/30/2015 Comp Metabolic Ivs442 GLOB 2.6 g/dL 06/30/2015 Comp Metabolic Zac121 A/G Ratio 1.5 Ratio 06/30/2015 Comp Metabolic Ycr736 Osmo 278 mOsmo 06/30/2015 Pt Cim4790 PT 26.1 seconds 06/30/2015 Pt Rkn3424 INR 2.5 06/30/2015 Pt Sbw9106 Low Intensity - 1.5-2.0 06/30/2015 Pt Tzr8557 Mod intensity - 2.0-3.0 06/30/2015 Pt Hhv4157 Hi intensity - 3.0-4.0 06/30/2015 Review of [...] normal 12/23/2018 None Full Exam - General 1995 Ears/Nose/Throat lips/teeth/gingiva Overall: benign lips 12/23/2018 None [...] Procedure Codes Date DESTRUCT PREMALG LESION CPT-4: 00577 12/31/2018 DESTRUCT PREMALG LES 2-14 CPT-4: 12106 12/31/2018 OCCULT BLOOD FECES CPT- 4: 82065 04/08/2018 PPPS, SUBSEQ VISIT CPT- 4: G0439 04/03/2018 PPPS, SUBSEQ VISIT CPT- 4: G0439 10/31/2017 PRESCRIP TRANSMIT VIA ERX SY CPT-4: G8553 09/22/2017 THER/PROPH/DIAG INJ SC/IM CPT-4: 21098 01/21/2017 TRIAMCINOLONE ACET INJ NOS CPT-4: J3301 01/21/2017 THER/PROPH/DIAG INJ SC/IM CPT-4: 59254 12/30/2016 ROCEPHIN, PER 250 MG CPT- 4: J0696 12/30/2016 PPPS, SUBSEQ VISIT CPT- 4: G0439 10/25/2016 ROCEPHIN, PER 250 MG CPT- 4: J0696 06/24/2016 THER/PROPH/DIAG INJ SC/IM CPT-4: 31943 06/24/2016 Vital Signs Date Vital 12/31/2018 Blood Pressure 1: 140/80 Code: 8480-6 BMI: 29.0 Code: 00509-5 Heart Rate 1: 86 bpm Height: 5'8" SpO2: 97% Weight: 191 lbs 12/23/2018 Blood Pressure 1: 140/68 Code: 8480-6 BMI: 29.3 Code: 57758-2 Heart Rate 1: 70 bpm Height: 5'8" SpO2: 97% Weight: 193 lbs 04/03/2018 Blood Pressure 1: 128/72 Code: 8480-6 BMI: 29.8 Code: 24944-3 Heart Rate 1: 60 bpm Height: 5'8" SpO2: 96% Weight: 196 lbs 03/31/2018 Blood Pressure 1: 128/76 Code: 8480-6 BMI: 29.8 Code: 33114-5 Heart Rate 1: 56 bpm Height: 5'8" SpO2: 98% Weight: 196 lbs 11/26/2017 Blood Pressure 1: 156/76 Code: 8480-6 BMI: 29.6 Code: 76637-9 Heart Rate 1: 57 bpm Height: 5'8" SpO2: 98% Weight: 195 lbs 10/31/2017 Blood Pressure 1: 136/74 Code: 8480-6 BMI: 29.5 Code: 38970-2 Heart Rate 1: 56 bpm Height: 5'8" SpO2: 95% Waist Measure (cm): 91 cm Weight: 194 lbs 10/07/2017 Blood Pressure 1: 136/72 Code: 8480-6 BMI: 30.3 Code: 93153-0 Heart Rate 1: 58 bpm Height: 5'8" SpO2: 96% Weight: 199 lbs 09/22/2017 Blood Pressure 1: 138/78 Code: 8480-6 BMI: 30.4 Code: 75355-2 Heart Rate 1: 60 bpm Height: 5'8" SpO2: 98% Temperature: 36.6 (C) / 97.9 (F) Weight: 200 lbs 05/08/2017 Blood Pressure 1: 128/80 Code: 8480-6 BMI: 30.0 Code: 16146-4 Heart Rate 1: 75 bpm Height: 5'8" SpO2: 98% Weight: 197 lbs 03/25/2017 Blood Pressure 1: 150/80 Code: 8480-6 BMI: 30.1 Code: 30233-5 Heart Rate 1: 53 bpm Height: 5'8" SpO2: 98% Weight: 198 lbs 01/21/2017 Blood Pressure 1: 156/88 Code: 8480-6 BMI: 29.8 Code: 50724-2 Heart Rate 1: 95 bpm Height: 5'8" SpO2: 98% Temperature: 36.9 (C) / 98.4 (F) Weight: 196 lbs 12/30/2016 Blood Pressure 1: 122/74 Code: 8480-6 BMI: 29.8 Code: 66904-7 Heart Rate 1: 60 bpm Height: 5'8" SpO2: 96% Temperature: 37.1 (C) / 98.8 (F) Weight: 196 lbs 12/26/2016 Blood Pressure 1: 142/74 Code: 8480-6 BMI: 29.8 Code: 30221-6 Heart Rate 1: 58 bpm Height: 5'8" SpO2: 96% Temperature: 36.7 (C) / 98.0 (F) Weight: 196 lbs 12/02/2016 Blood Pressure 1: 128/78 Code: 8480-6 BMI: 30.3 Code: 92026-7 Heart Rate 1: 49 bpm Height: 5'8" SpO2: 98% Temperature: 36.5 (C) / 97.7 (F) Weight: 199 lbs 11/21/2016 Blood Pressure 1: 130/68 Code: 8480-6 BMI: 30.3 Code: 76744-4 Heart Rate 1: 54 bpm Height: 5'8" SpO2: 98% Weight: 199 lbs 10/25/2016 Blood Pressure 1: 150/92 Code: 8480-6 BMI: 29.8 Code: 38569-4 Heart Rate 1: 54 bpm Height: 5'8" SpO2: 97% Waist Measure (cm): 97 cm Weight: 196 lbs 10/23/2016 Blood Pressure 1: 150/92 Code: 8480-6 BMI: 29.9 Code: 08552-7 Heart Rate 1: 54 bpm Height: 5'8" SpO2: 98% Weight: 196 lbs 8 oz 07/29/2016 Blood Pressure 1: 144/72 Code: 8480-6 BMI: 30.3 Code: 86969-9 Heart Rate 1: 54 bpm Height: 5'8" SpO2: 98% Weight: 199 lbs 06/24/2016 Blood Pressure 1: 132/78 Code: 8480-6 BMI: 29.5 Code: 89957-9 Heart Rate 1: 59 bpm Height: 5'8" SpO2: 94% Weight: 194 lbs 02/21/2016 Blood Pressure 1: 138/84 Code: 8480-6 BMI: 30.3 Code: 17017-9 Heart Rate 1: 64 bpm Height: 5'8" SpO2: 95% Weight: 199 lbs 10/18/2015 Blood Pressure 1: 154/84 Code: 8480-6 Blood Pressure 1: 138/72 Code: 8480-6 BMI: 30.4 Code: 11673-0 Heart Rate 1: 68 bpm Height: 5'8" SpO2: 97% Weight: 200 lbs 05/02/2015 Blood Pressure 1: 114/64 Code: 8480-6 BMI: 29.0 Code: 79053-4 Heart Rate 1: 62 bpm Height: 5'8" [...] data Encounters Encounter Performer Location Codes Date 23211 EST. PATIENT, LEVEL III Diagnosis: Diverticulitis of small intestine with perforation and abscess without bleeding[ICD10: K57.00] Gabrielle Husain MD, [facility] CPT-4: 33225 12/23/2018 ([id number]) 73533 EST. PATIENT, LEVEL III Diagnosis: Low back pain[ICD10: M54.5] Diagnosis: Muscle spasm of back[ICD10: M62.830] Leidy Husain MD, [facility] CPT-4: 59010 03/31/2018 ([id number]) 11913 EST. PATIENT, LEVEL III Diagnosis: Actinic keratosis[ICD10: L57.0] Diagnosis: Other hypertrophic disorders of the skin[ICD10: L91.8] Amanda Husain MD, [facility] CPT-4: 14951 11/26/2017 ([id number]) 59903 EST. PATIENT, LEVEL IV Diagnosis: Essential (primary) hypertension[ICD10: I10] Diagnosis: Mild cognitive impairment, so stated[ICD10: G31.84] Amanda Husain MD, [facility] CPT-4: 45120 10/07/2017 ([id number]) 15662 EST. PATIENT, LEVEL III Diagnosis: Pneumonia due to other streptococci[ICD10: J15.4] Diagnosis: Cough[ICD10: R05] Amanda Husain MD, [facility] CPT-4: 26188 09/22/2017 [id number] EST. PATIENT, LEVEL IV Diagnosis: Left lower quadrant pain[ICD10: R10.32] Diagnosis: Other fatigue[ICD10: R53.83] [facility], [facility] [facility] CPT-4: 41061 05/08/2017 ([id number]) 10574 EST. PATIENT, LEVEL III Diagnosis: Essential (primary) hypertension[ICD10: I10] Amanda Husain MD, [facility] CPT-4: 90787 03/25/2017 ([id number]) 75752 EST. PATIENT, LEVEL III Diagnosis: Cough[ICD10: R05] Diagnosis: Allergic rhinitis due to pollen[ICD10: J30.1] Leidy Husain MD, [facility] CPT-4: 29520 01/21/2017 [id number] EST. PATIENT, LEVEL III Diagnosis: Other allergic rhinitis[ICD10: J30.89] Diagnosis: Cough[ICD10: R05] Gabrielle Husain MD, [facility] CPT-4: 70255 12/30/2016 ([id number]) 70191 EST. PATIENT, LEVEL III Diagnosis: Cough[ICD10: R05] Diagnosis: Pneumonia, unspecified organism[ICD10: J18.9] Leidy Husain MD, [facility] CPT-4: 60006 12/26/2016 ([id number]) 49105 EST. PATIENT, LEVEL III Diagnosis: Pneumonia due to other streptococci[ICD10: J15.4] Diagnosis: Cough[ICD10: R05] Amanda Husain MD, [facility] CPT-4: 78291 12/02/2016 ([id number]) 99804 EST. PATIENT, LEVEL III Diagnosis: Essential (primary) hypertension[ICD10: I10] Amanda Husain MD, [facility] CPT-4: 51817 11/21/2016 ([id number]) 79313 EST. PATIENT, LEVEL IV Diagnosis: Essential (primary) hypertension[ICD10: I10] Diagnosis: Mixed hyperlipidemia[ICD10: E78.2] Amanda Husain MD, [facility] CPT- 4: 84510 10/23/2016 [id number] EST. PATIENT, LEVEL IV Diagnosis: Other allergic rhinitis[ICD10: J30.89] Diagnosis: Cough[ICD10: R05] Gabrielle Husain MD, [facility] CPT-4: 47227 07/29/2016 ([id number]) Miscellaneous no charge Diagnosis: Pneumonia, unspecified organism[ICD10: J18.9] Gabrielle Husain MD, [facility] CPT-4: 74419 06/27/2016 ([id number]) 80252 EST. PATIENT, LEVEL IV Diagnosis: Essential (primary) hypertension[ICD10: I10] Diagnosis: Pneumonia, unspecified organism[ICD10: J18.9] Diagnosis: Cough[ICD10: R05] Diagnosis: Mixed hyperlipidemia[ICD10: E78.2] Amanda Husain MD, [facility] CPT- 4: 69034 06/24/2016 ([id number]) 76726 EST. PATIENT, LEVEL IV Diagnosis: Mixed hyperlipidemia[ICD10: E78.2] Diagnosis: Essential (primary) hypertension[ICD10: I10] Diagnosis: Gastro-esophageal reflux disease without esophagitis[ICD10: K21.9] Amanda Husain MD, [facility] CPT-4: 80968 02/21/2016 ([id number]) 09544 EST. 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 Call if not improved after thorough healing - apply neosporin to skin lesions. 12/31/2018 Appointment: Amanda Husain WPtel: [address] [place], [place] [id number] (30 min) [facility] 12/31/2018 Patient Education: Patient Medication Summary Completed 12/31/2018 Visit Plan: Diverticulitis - rx for antibiotic sent to pt's pharmacy - pt advised to avoid seeds, nuts, popcorn, or any other food which has been proven to upset the pt's stomach. 12/23/2018 Appointment: Gabrielle Corona WPtel: [facility]5 [facility] (15 min) Moderate 12/23/2018 Patient Education: Patient Medication Summary Completed 12/23/2018 Appointment: Gabrielle Corona WPtel: [facility]5 [phone] (30 min) Complex 12/16/2018 Appointment: Lab Draw [...] not improve. 03/31/2018 Appointment: Leidy Angulo WPtel: [facility]5 [phone] (15 min) Moderate 03/31/2018 Patient Education: Patient Medication Summary Completed 03/31/2018 Visit Plan: Wound Instructions - Pt was instructed to keep the wound clean, wash with antibacterial soap, use triple antibiotic ointment, call if redness, pustular drainage, or any other acute concerns. 11/26/2017 Appointment: Amanda Husain WPtel: [facility]5 [facility] Surgical Procedure 11/26/2017 Patient Education: Patient Medication [...] care surrogate. 10/31/2017 Appointment: Leidy Angulo WPtel: [facility]0 [phone] [facility] - Annual Wellness Visit 10/31/2017 [...] memory loss. 10/07/2017 Appointment: Amanda Husain WPtel[facility] (30 min) Complex 10/07/2017 Patient Education: Patient Medication Summary Completed 10/07/2017 Patient Education: Obesity Completed 10/07/2017 Patient Education: Hypertension Completed 10/07/2017 Visit Plan: Pneumonia - Pt has been diagnosed with pneumonia by physical exam. Antibiotics have been ordered. The pt is aware of the diagnosis and the need for acute treatment of this illness. 09/22/2017 Appointment: Amanda Husain WPtel: [facility]1 [facility] (15 min) Moderate 09/22/2017 Patient Education: Patient [...] or concerns. 05/08/2017 Appointment: Gabrielle Corona WPtel: [facility]3 [phone] (30 min) Complex 05/08/2017 Patient Education: Patient [...] daily. 03/25/2017 Appointment: Amanda Husain WPtel: [facility]5 [facility] (15 min) Moderate 03/25/2017 Patient Education: Patient Medication Summary Completed 03/25/2017 Appointment: Leidy Angulo WPtel: [facility]8 [phone] [place] (15 min) Moderate 01/31/2017 Visit Plan: URI/Allergies - Pt advised to increase fluids, vitamin C. Discussed natural and expected course of this diagnosis and need to alert me if symptoms do not follow expected course, or if any worse. RX sent to patient's pharmacy. 01/21/2017 Appointment: Leidy Angulo WPtel: [facility]7 [phone] [place] (15 min) Moderate 01/21/2017 Patient Education: [...] medication. 12/30/2016 Appointment: Leidy Angulo WPtel: [facility]5 [place] [phone] (15 min) Moderate 12/30/2016 Appointment: Gabrielle Corona WPtel: [address] [place] [address] (30 min) Complex 12/30/2016 Patient Education: Patient [...] the levaquin. 12/26/2016 Appointment: Leidy Angulo WPtel: [address] [place], [place] [phone] (15 min) Moderate 12/26/2016 Patient Education: Patient [...] at home. 11/21/2016 Appointment: Amanda Husain WPtel: [facility] (15 min) Moderate 11/21/2016 Patient Education: Patient [...] surrogate. 10/25/2016 Appointment: [facility]ulo [facility]el[facility] [phone] [phone] [facility] - Annual Wellness Visit 10/25/2016 [...] medications. 10/23/2016 Appointment: Amanda Husain WPtel: [address] [facility] (15 min) Moderate 10/23/2016 Patient Education: Patient [...] any concerns. 07/29/2016 Appointment: Gabrielle Corona WPtel: [facility] (15 min) Moderate 07/29/2016 Patient Education: Patient [...] to medications. 06/24/2016 Appointment: [facility]el[facility] [phone] [facility] (15 min) Moderate 06/24/2016 Patient Education: Patient [...] not improving. 02/21/2016 Appointment: [facility] Husain [facility]Ptel[facility] [phone] [facility] (15 min) Moderate 02/21/2016 Patient Education: Patient [...] Care Plan: COMPLETE CBC AUTOMATED LOINC : 35852-8 Ordered 05/02/2015 Care Plan: ASSAY OF TROPONIN QUANT Ordered 05/02/2015 Care Plan: ASSAY OF CK (CPK) Ordered 05/02/2015 Instructions Comment . Actinic Keratosis - treated with cryotherapy x 3, pt advised on how to appropriately care for the lesion. Call if not improved after thorough healing - apply neosporin to skin lesions. zyrtec - daily for allergies If in [...] worsen, or with any questions or concerns. change metoprolol to 25mg twice daily. . [...] her DOPA paperwork for health care surrogate. [email or web address] or [employer] - take three times daily x 7 days get a PT/INR check on of this week . Pneumonia - Pt has been diagnosed with pneumonia by physical exam. Antibiotics ordered, pt advised on starting a probiotic, and to have his inr checked on of this week. The pt is aware of the diagnosis and the need for acute treatment of this illness. Increase the ramipril to 10mg daily. . [...] Increase the ramipril to 10mg daily. . Diverticulitis - rx for antibiotic sent [...] - he is tolerating treatments well. . Medicare Exam - today we discussed [...] her DOPA paperwork for health care surrogate. We will call to see if you [...] assure normal liver response to medications. . Wound Instructions - Pt was instructed to keep the wound clean, wash with antibacterial soap, use triple antibiotic ointment, call if redness, pustular drainage, or any other acute concerns.
[2019-05-19] MEDS ORDERED: PROPOFOL INJECTION 50 ML IV ONE (11:18)
[2019-05-19] MEDS ORDERED: MIDAZOLAM 2 MG/2 ML (VERSED) VIAL ONE (11:19)
--- OUTSIDE RECORDS SUMMARY | 2019-05-19 11:20 | XMS REPORT | CCD ---
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 Name Role Phone PP Unavailable CCM Unavailable Summary Purpose Interface Exchange Insurance Providers Payer name Policy type / Coverage type Covered green party ID Effective Begin Date Effective End Date WPS Medicare Part B [id number] Unknown [employer] [id number] Unknown Family history Brother Diagnosis Age At [...] Unknown Retired 05/02/[address]: 8053666 Former smoker Quit in 1966 05/02/2015 Number [...] Fill Instructions metronidazole 500 mg tablet RxNorm: 155137 1 Tablet(s) PO TID 12/23/2018 01/01/2019 Inactive omeprazole 20 mg capsule,delayed release RxNorm: 101673 TAKE 1 CAPSULE BY MOUTH ONCE DAILY 12/07/2018 No Stop Date Active metoprolol tartrate 25 mg tablet RxNorm: 981045 Tablet(s) TAKE 1 TABLET BY MOUTH TWICE DAILY 10/16/2018 No Stop Date Active metoprolol tartrate 25 mg tablet RxNorm: 562683 TAKE 1 TABLET BY MOUTH TWICE DAILY 07/13/2018 10/15/2018 Inactive Trilipix 135 mg capsule,delayed release RxNorm: 009788 1 Capsule(s) PO daily 06/17/2018 10/14/2018 Inactive ramipril 10 mg capsule RxNorm: 522274 TAKE ONE CAPSULE BY MOUTH ONCE DAILY 06/15/2018 No Stop Date Active omeprazole 20 mg capsule,delayed release RxNorm: 766381 Capsule(s) TAKE ONE CAPSULE BY MOUTH ONCE DAILY 06/03/2018 No Stop Date Active omeprazole 20 mg capsule,delayed release RxNorm: 551109 Capsule(s) TAKE ONE CAPSULE BY MOUTH ONCE DAILY 06/02/2018 06/02/2018 Inactive metoprolol tartrate 25 mg tablet RxNorm: 901486 TAKE ONE TABLET BY MOUTH TWICE DAILY 02/16/2018 07/12/2018 Inactive omeprazole 20 mg capsule,delayed release RxNorm: 921115 TAKE ONE CAPSULE BY MOUTH ONCE DAILY 01/05/2018 06/01/2018 Inactive metoprolol tartrate 25 mg tablet RxNorm: 256997 TAKE ONE TABLET BY MOUTH TWICE DAILY 10/27/2017 02/15/2018 Inactive azithromycin 250 mg tablet RxNorm: 178986 1 Tablet(s) PO UD 2 tabs on day #1, then 1 pill daily x 4 days 09/22/2017 11/25/2017 Inactive omeprazole 20 mg capsule,delayed release RxNorm: 237072 TAKE ONE CAPSULE BY MOUTH ONCE DAILY 06/16/2017 12/12/2017 Inactive metronidazole 500 mg tablet RxNorm: 438940 1 Tablet(s) PO TID 05/08/2017 05/14/2017 Inactive ramipril 10 mg capsule RxNorm: 128679 1 Capsule(s) PO daily 03/25/2017 03/19/2018 Inactive Kenalog 40 mg/mL suspension for injection RxNorm: 3158221 Milliliter(s) Inj 01/21/2017 01/21/2017 Inactive ceftriaxone 500 mg solution for injection RxNorm: 5451028 Inj 12/30/2016 12/30/2016 Inactive Phenergan with Codeine Syrup RxNorm: 5-10 Milliliter(s) PO Q6 PRN 12/26/2016 No Stop Date Active Levaquin 500 mg tablet RxNorm: 646064 1 Tablet(s) PO daily 12/26/2016 01/01/2017 Inactive Tessalon Perles 100 mg capsule RxNorm: 916457 1 Capsule(s) PO TID as needed 12/26/2016 01/04/2017 Inactive prednisone 20 mg tablet RxNorm: 698763 1 Tablet(s) PO BID 12/26/2016 12/30/2016 Inactive omeprazole 20 mg capsule,delayed release RxNorm: 485863 TAKE ONE CAPSULE BY MOUTH ONCE DAILY 12/16/2016 06/13/2017 Inactive cefdinir 300 mg capsule RxNorm: 522039 1 Capsule(s) PO BID 12/02/2016 12/08/2016 Inactive azithromycin 250 mg tablet RxNorm: 319360 Tablet(s) 2 tabs on day #1, then one tab PO daily x 4 more days 12/02/2016 12/25/2016 Inactive metoprolol tartrate 25 mg tablet RxNorm: 622880 1 Tablet(s) PO BID 10/23/2016 10/17/2017 Inactive metoprolol tartrate 25 mg tablet RxNorm: 042302 1 Tablet(s) PO BID 10/23/2016 10/22/2016 Inactive ceftriaxone 500 mg solution for injection RxNorm: 8546237 Inj 06/24/2016 06/24/2016 Inactive cefdinir 300 mg capsule RxNorm: 787945 1 Capsule(s) PO BID 06/24/2016 06/30/2016 Inactive omeprazole 20 mg capsule,delayed release RxNorm: 908888 TAKE ONE CAPSULE BY MOUTH DAILY 06/07/2016 12/03/2016 Inactive omeprazole 20 mg capsule,delayed release RxNorm: 672634 TAKE ONE CAPSULE BY MOUTH DAILY 01/29/2016 05/27/2016 Inactive metoprolol tartrate 50 mg tablet RxNorm: 275588 Tablet(s) TAKE ONE TABLET BY MOUTH DAILY 10/11/2015 10/10/2015 Inactive metoprolol tartrate 50 mg tablet RxNorm: 431501 TAKE ONE TABLET BY MOUTH DAILY 10/11/2015 10/22/2016 Inactive omeprazole 20 mg capsule,delayed release RxNorm: 130178 TAKE ONE CAPSULE BY MOUTH DAILY 08/28/2015 01/24/2016 Inactive metoprolol tartrate 50 mg tablet RxNorm: 660122 TAKE ONE TABLET BY MOUTH DAILY 08/11/2015 10/09/2015 Inactive metoprolol tartrate 50 mg tablet RxNorm: 050921 1 Tablet(s) PO daily 06/14/2015 08/10/2015 Inactive omeprazole 20 mg capsule,delayed release RxNorm: 834458 1 Capsule(s) PO daily 05/29/2015 08/26/2015 Inactive omeprazole 20 mg capsule,delayed release RxNorm: 668351 1 Capsule(s) PO daily 05/29/2015 05/28/2015 Inactive metronidazole 500 mg tablet RxNorm: 331351 1 Tablet(s) PO TID 05/02/2015 05/08/2015 Inactive finasteride 5 mg tablet RxNorm: 561776 1 Tablet(s) PO daily No Start Date Active warfarin 5 mg tablet RxNorm: 765441 1 Tablet(s) PO daily No Start Date Active Aspirin Childrens 81 mg chewable tablet RxNorm: 602366 1 Tablet(s) PO daily No Start Date Active amiodarone 200 mg tablet RxNorm: 998014 1 Tablet(s) PO daily No Start Date Active vitamin E (dl, acetate) 1,000 unit capsule RxNorm: 842458 1 Capsule(s) PO daily No Start Date Active atorvastatin 80 mg tablet RxNorm: 703176 1 Tablet(s) PO daily No Start Date Active Fish Oil 120 mg-180 mg capsule RxNorm: 048558 1 Capsule(s) PO BID No Start Date 10/30/2017 Inactive metoprolol tartrate 50 mg tablet RxNorm: 727811 1 Tablet(s) PO daily No Start Date 06/13/2015 Inactive Zetia 10 mg tablet RxNorm: 778715 1 Tablet(s) PO daily No Start Date 10/17/2015 Inactive ramipril 5 mg capsule RxNorm: 390763 1 Capsule(s) PO daily No Start Date 03/24/2017 Inactive Tessalon Perles 100 mg capsule RxNorm: 168336 1 Capsule(s) PO TID as needed No Start Date 12/25/2016 Inactive omeprazole 20 mg capsule,delayed release RxNorm: 574816 1 Capsule(s) PO daily No Start Date 05/28/2015 Inactive Trilipix 135 mg capsule,delayed release RxNorm: 827642 1 Capsule(s) PO daily No Start Date 06/16/2018 Inactive Centrum Silver tablet RxNorm: 1 Tablet(s) PO daily No Start Date 10/30/2017 Inactive Medication Administered Medication Codes Instructions Start Date Status Kenalog 40 mg/mL suspension for injection RxNorm: 2586302 Milliliter 01/21/2017 No longer Active ceftriaxone 500 mg solution for injection RxNorm: 3847651 12/30/2016 No longer Active ceftriaxone 500 mg solution for injection RxNorm: 2097972 06/24/2016 No longer Active Immunizations Vaccine Codes [...] abnormal findings ICD-10: Z00.01 ICD-9: V70.0 04/03/2018 Low back pain ICD-10: M54.5 ICD-9: 724.2 03/31/2018 Muscle spasm of back ICD-10: M62.830 ICD-9: 724.8 03/31/2018 Other hypertrophic disorders of the skin ICD-10: L91.8 ICD-9: 701.9 11/26/2017 Essential (primary) hypertension ICD-10: I10 ICD-9: 401.9 10/07/2017 Mild cognitive impairment, so stated ICD-10: G31.84 ICD-9: 331.83 10/07/2017 Pneumonia due to other streptococci ICD-10: [...] Jul ~generic 10/18/2015 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0 01/05/2019 Pt Hyt1830 Mod intensity - 2.0-3.0 01/05/2019 Pt Lcx5160 Hi intensity - 3.0-4.0 01/05/2019 Pt Qrf9193 PT 17.6 seconds 12/25/2018 Pt Com0105 INR 1.5 12/25/2018 Pt Xdg6003 Low Intensity - 1.5-2.0 12/25/2018 Pt Xgf1963 Mod intensity - 2.0-3.0 12/25/2018 Pt Yms3348 Hi intensity - 3.0-4.0 12/25/2018 Uric Acid Ord77 Uric A 4.6 mg/dL 12/10/2018 Random Urine Protein/Creatinine Ratio Ywk7243 U Prot 9.0 mg/dl 12/10/2018 Random Urine Protein/Creatinine Ratio Awq0809 U CREAT 126.0 mg/dL 12/10/2018 Random Urine Protein/Creatinine Ratio Vqt9154 R MTP/Creat Ratio 0.07 12/10/2018 Urinalysis Ord28 [...] 12/10/2018 Tibc Ord40 Fe-%Sat 17.8 % 12/10/2018 Ferritin Ord22 FERRITIN 47.9 ng/mL 12/10/2018 Renal Lpy412 NA 142 mEq/L 12/10/2018 Renal Mja069 K 4.3 mEq/L 12/10/2018 Renal Qqf916 CL 106 mEq/L 12/10/2018 Renal Dde046 CO2 30.0 mEq/L 12/10/2018 Renal Amw117 ANION GAP 10 12/10/2018 Renal Xsh669 Osmo 286 mOsmo 12/10/2018 Renal Jzz842 GLUCOSE 105 mg/dL 12/10/2018 Renal Vlq183 BUN 20 mg/dL 12/10/2018 Renal Wdx055 Creat 1.4 mg/dL 12/10/2018 Renal Qhv317 eGFR 52 ml/min/1.73m2 12/10/2018 Renal Vdl042 B/C Ratio 14.1 Ratio 12/10/2018 Renal Yro616 CALCIUM 9.7 mg/dL 12/10/2018 Renal Qpo490 PHOS 3.3 mg/dL 12/10/2018 Renal Qnm026 ALBUMIN 4.0 g/dL 12/10/2018 Vitamin D 25 Oh Mon3694 VITAMIN D, 25 HYDROXY 27.29 ng/mL 12/10/2018 Cbc With Differential Ord2 WBC 7.65 K/ul 12/10/2018 Cbc With Differential Ord2 RBC 4.46 M/ul 12/10/2018 Cbc With Differential Ord2 HGB 13.4 g/dl 12/10/2018 Cbc With Differential Ord2 HCT 41.1 % 12/10/2018 Cbc With Differential Ord2 Neut% 56.7 % 12/10/2018 Cbc With Differential Ord2 Lymph% 27.3 % 12/10/2018 Cbc With Differential Ord2 MCV 92.2 fl 12/10/2018 Cbc With Differential Ord2 Mcnairy% 10.5 % 12/10/2018 Cbc With Differential Ord2 MCH 30.0 pg 12/10/2018 Cbc With Differential Ord2 MCHC 32.6 pg 12/10/2018 Cbc With Differential Ord2 Eos% 5.2 % 12/10/2018 Cbc With Differential Ord2 PLT 281 K/ul 12/10/2018 Cbc With Differential Ord2 Baso% 0.3 % 12/10/2018 Cbc With Differential Ord2 RDW 14.4 % 12/10/2018 Cbc With Differential Ord2 Neut ABS# 4.34 K/ul 12/10/2018 Cbc With Differential Ord2 Lymph ABS# 2.09 K/ul 12/10/2018 Cbc With Differential Ord2 [place] ABS# 0.8 K/ul 12/10/2018 Cbc With Differential Ord2 Eos ABS# 0.4 K/ul 12/10/2018 Cbc With Differential Ord2 Baso ABS# 0.0 K/ul 12/10/2018 Pt Zqf7323 PT 23.1 seconds 11/05/2018 Pt Rcy9940 INR 2.1 11/05/2018 Pt Plr4560 Low Intensity - 1.5-2.0 11/05/2018 Pt Eop1556 Mod intensity - 2.0-3.0 11/05/2018 Pt Hgs2152 Hi intensity - 3.0-4.0 11/05/2018 Pt Usz4362 PT 29.8 seconds 08/17/2018 Pt Gji5225 INR 2.8 08/17/2018 Pt Aoy2002 Low Intensity - 1.5-2.0 08/17/2018 Pt Lfv4747 Mod intensity - 2.0-3.0 08/17/2018 Pt Dxf7467 Hi intensity - 3.0-4.0 08/17/2018 Vitamin D 25 Oh Vmw4479 VITAMIN D, 25 HYDROXY 27.40 ng/mL 05/18/2018 Tibc Ord40 Iron 68 ug/dl 05/18/2018 Tibc Ord40 UIBC 308 ug/dL 05/18/2018 Tibc Ord40 TIBC 376 ug/dL 05/18/2018 Tibc Ord40 Fe-%Sat 18.1 % 05/18/2018 Pt Akr0616 PT 27.7 seconds 05/18/2018 Pt Rig7683 INR 2.6 05/18/2018 Pt Cak8257 Low Intensity - 1.5-2.0 05/18/2018 Pt Trv4163 Mod intensity - 2.0-3.0 05/18/2018 Pt Mbg6402 Hi intensity - 3.0-4.0 05/18/2018 Uric Acid [...] 30.9 pg 05/18/2018 Cbc With Differential Ord2 Mcnairy% 13.8 % 05/18/2018 Cbc With Differential Ord2 [...] 1.94 K/ul 05/18/2018 Cbc With Differential Ord2 [place] ABS# 0.9 K/ul 05/18/2018 Cbc With Differential Ord2 Eos ABS# 0.4 K/ul 05/18/2018 Cbc With Differential Ord2 Baso ABS# 0.0 K/ul 05/18/2018 Random Urine Protein/Creatinine Ratio Hee7803 U Prot 7.0 mg/dl 05/18/2018 Random Urine Protein/Creatinine Ratio Gig9906 U CREAT 75.0 mg/dL 05/18/2018 Random Urine Protein/Creatinine Ratio Yfd0656 R MTP/Creat Ratio 0.09 05/18/2018 Parathyroid Hormone Ttz121 PTH 36.20 pg/ml 05/18/2018 Urinalysis Ord28 U-Color [...] 05/18/2018 Urinalysis Ord28 U-Yeast NEGATIVE 05/18/2018 Renal Dsb795 NA 141 mEq/L 05/18/2018 Renal Ezk228 K 4.0 mEq/L 05/18/2018 Renal Set950 CL 107 mEq/L 05/18/2018 Renal Qju551 CO2 27.0 mEq/L 05/18/2018 Renal Lys973 ANION GAP 11 05/18/2018 Renal Lxr634 Osmo 282 mOsmo 05/18/2018 Renal Gxi682 GLUCOSE 83 mg/dL 05/18/2018 Renal Mea730 BUN 18 mg/dL 05/18/2018 Renal Wdy064 Creat 1.4 mg/dL 05/18/2018 Renal Fzi682 eGFR 55 ml/min/1.73m2 05/18/2018 Renal Tyh725 B/C Ratio 13.3 Ratio 05/18/2018 Renal Hnc513 CALCIUM 9.0 mg/dL 05/18/2018 Renal Eek304 PHOS 2.9 mg/dL 05/18/2018 Renal Ykn412 ALBUMIN 4.0 g/dL 05/18/2018 Ferritin Ord22 FERRITIN [...] Metabolic Ord15 CALCIUM 9.2 mg/dL 03/23/2018 Pt Mps2004 PT 29.0 seconds 03/13/2018 Pt Zgd2806 INR 2.7 03/13/2018 Pt Tjk8978 Low Intensity - 1.5-2.0 03/13/2018 Pt Sxi5479 Mod intensity - 2.0-3.0 03/13/2018 Pt Opr6881 Hi intensity - 3.0-4.0 03/13/2018 Pt Raa2826 PT 31.6 seconds 03/04/2018 Pt Vyw2818 INR 3.0 03/04/2018 Pt Ctu4737 Low Intensity - 1.5-2.0 03/04/2018 Pt Tvo2653 Mod intensity - 2.0-3.0 03/04/2018 Pt Bsn9090 Hi intensity - 3.0-4.0 03/04/2018 Pt Oik3716 PT 33.3 seconds 01/29/2018 Pt Hbn5446 INR 3.2 01/29/2018 Pt Yeb9007 Low Intensity - 1.5-2.0 01/29/2018 Pt Ieb5941 Mod intensity - 2.0-3.0 01/29/2018 Pt Jrh5154 Hi intensity - 3.0-4.0 01/29/2018 Pt Cqs4124 PT 26.1 seconds 01/21/2018 Pt Rub7099 INR 2.4 01/21/2018 Pt Vav7837 Low Intensity - 1.5-2.0 01/21/2018 Pt Mzj0131 Mod intensity - 2.0-3.0 01/21/2018 Pt Fmu1788 Hi intensity - 3.0-4.0 01/21/2018 Pt Dft2223 PT 35.7 seconds 01/09/2018 Pt Rxy9161 INR 3.5 01/09/2018 Pt Xxh6285 Low Intensity - 1.5-2.0 01/09/2018 Pt Tyx1333 Mod intensity - 2.0-3.0 01/09/2018 Pt Wyu1134 Hi intensity - 3.0-4.0 01/09/2018 Pt Vwq3038 PT 23.8 seconds 12/04/2017 Pt Wfn6065 INR 2.1 12/04/2017 Pt Imv6371 Low Intensity - 1.5-2.0 12/04/2017 Pt Ehw2944 Mod intensity - 2.0-3.0 12/04/2017 Pt Egx8078 Hi intensity - 3.0-4.0 12/04/2017 Pt Nim4909 PT 32.3 seconds 11/12/2017 Pt Cey1169 INR 3.1 11/12/2017 Pt Xrz8971 Low Intensity - 1.5-2.0 11/12/2017 Pt Rlx9930 Mod intensity - 2.0-3.0 11/12/2017 Pt Cjp4638 Hi intensity - 3.0-4.0 11/12/2017 Pt Tsi1529 PT 16.6 seconds 10/20/2017 Pt Xnd4021 INR 1.4 10/20/2017 Pt Hue3061 Low Intensity - 1.5-2.0 10/20/2017 Pt Rcy0259 Mod intensity - 2.0-3.0 10/20/2017 Pt Qhv4642 Hi intensity - 3.0-4.0 10/20/2017 Urinalysis Ord28 [...] hours from collection if refrigerated) 10/20/2017 Renal Pfr817 NA 142 mEq/L 10/20/2017 Renal Fcz359 K 4.5 mEq/L 10/20/2017 Renal Abj191 CL 107 mEq/L 10/20/2017 Renal Nti275 CO2 28.0 mEq/L 10/20/2017 Renal Mzg851 ANION GAP 12 10/20/2017 Renal Kom240 Osmo 288 mOsmo 10/20/2017 Renal Jhx446 GLUCOSE 96 mg/dL 10/20/2017 Renal Kuv401 BUN 27 mg/dL 10/20/2017 Renal Tuw634 Creat 1.6 mg/dL 10/20/2017 Renal Yfz515 eGFR 46 ml/min/1.73m2 10/20/2017 Renal Aov069 B/C Ratio 17.2 Ratio 10/20/2017 Renal Icm660 CALCIUM 9.4 mg/dL 10/20/2017 Renal Vbx916 PHOS 3.0 mg/dL 10/20/2017 Renal Vkh058 ALBUMIN 4.2 g/dL 10/20/2017 Pt Gcm9768 PT 31.2 seconds 10/17/2017 Pt Lkx9264 INR 3.0 10/17/2017 Pt Ftq4429 Low Intensity - 1.5-2.0 10/17/2017 Pt Xcl9529 Mod intensity - 2.0-3.0 10/17/2017 Pt Rxi0999 Hi intensity - 3.0-4.0 10/17/2017 Comp Metabolic Rtq856 NA 139 mEq/L 05/08/2017 Comp Metabolic Hae200 K 4.1 mEq/L 05/08/2017 Comp Metabolic Gva130 CL 103 mEq/L 05/08/2017 Comp Metabolic Tzy318 CO2 28.0 mEq/L 05/08/2017 Comp Metabolic Hsu121 ANION GAP 12 05/08/2017 Comp Metabolic Pwo810 GLUCOSE 75 mg/dL 05/08/2017 Comp Metabolic Nwh330 Creat 1.3 mg/dL 05/08/2017 Comp Metabolic Akc993 eGFR 55 ml/min/1.73m2 05/08/2017 Comp Metabolic Gxk733 BUN 20 mg/dL 05/08/2017 Comp Metabolic Kbn206 B/C Ratio 14.9 Ratio 05/08/2017 Comp Metabolic Ktj916 CALCIUM 8.8 mg/dL 05/08/2017 Comp Metabolic Pqg592 ALK PHOS 51 U/L 05/08/2017 Comp Metabolic Xsa514 AST(SGOT) 30 U/L 05/08/2017 Comp Metabolic Sob417 ALT(SGPT) 31 U/L 05/08/2017 Comp Metabolic Rty660 BILI T 0.9 mg/dL 05/08/2017 Comp Metabolic Jlp630 ALBUMIN 4.0 g/dL 05/08/2017 Comp Metabolic Cov446 TPRO 6.5 g/dL 05/08/2017 Comp Metabolic Fma079 GLOB 2.6 g/dL 05/08/2017 Comp Metabolic Dow560 A/G Ratio 1.5 Ratio 05/08/2017 Comp Metabolic Hzs359 Osmo 279 mOsmo 05/08/2017 Cbc With Differential [...] 31.5 pg 05/08/2017 Cbc With Differential Ord2 Mcnairy% 13.5 % 05/08/2017 Cbc With Differential Ord2 MCHC 33.6 pg 05/08/2017 Cbc With Differential Ord2 Eos% 2.6 % 05/08/2017 Cbc With Differential Ord2 Baso% 0.2 % 05/08/2017 Cbc With Differential Ord2 PLT 218 K/ul 05/08/2017 Cbc With Differential Ord2 RDW 13.7 % 05/08/2017 Cbc With Differential Ord2 Neut ABS# 5.78 K/ul 05/08/2017 Cbc With Differential Ord2 Lymph ABS# 1.29 K/ul 05/08/2017 Cbc With Differential Ord2 [place] ABS# 1.1 K/ul 05/08/2017 Cbc With Differential Ord2 Eos ABS# 0.2 K/ul 05/08/2017 Cbc With Differential Ord2 Baso ABS# 0.0 K/ul 05/08/2017 Pt Lyn2098 PT 22.7 seconds 11/22/2016 Pt Yfd2471 INR 2.1 11/22/2016 Pt Bpu5812 Low Intensity - 1.5-2.0 11/22/2016 Pt Pfk2561 Mod intensity - 2.0-3.0 11/22/2016 Pt Vti8166 Hi intensity - 3.0-4.0 11/22/2016 Pt Iaw0169 PT 24.4 seconds 10/25/2016 Pt Msh4012 INR 2.3 10/25/2016 Pt Wok6197 Low Intensity - 1.5-2.0 10/25/2016 Pt Jhs1569 Mod intensity - 2.0-3.0 10/25/2016 Pt Int8673 Hi intensity - 3.0-4.0 10/25/2016 Pt Lro0738 PT 23.5 seconds 09/04/2016 Pt Jrw7620 INR 2.2 09/04/2016 Pt Jhm0689 Low Intensity - 1.5-2.0 09/04/2016 Pt Fkf9389 Mod intensity - 2.0-3.0 09/04/2016 Pt Xgh0525 Hi intensity - 3.0-4.0 09/04/2016 Pt Tnr2153 PT 26.1 seconds 07/09/2016 Pt Ded1934 INR 2.6 07/09/2016 Pt Kva8983 Low Intensity - 1.5-2.0 07/09/2016 Pt Rvo5029 Mod intensity - 2.0-3.0 07/09/2016 Pt Xko1204 Hi intensity - 3.0-4.0 07/09/2016 Pt Hlq2763 PT 19.4 seconds 06/24/2016 Pt Kjz4277 INR 1.7 06/24/2016 Pt Xis8977 Low Intensity - 1.5-2.0 06/24/2016 Pt Fmz5992 Mod intensity - 2.0-3.0 06/24/2016 Pt Zyd7787 Hi intensity - 3.0-4.0 06/24/2016 Pt Jcv3488 PT 28.9 seconds 04/26/2016 Pt Bso3094 INR 2.9 04/26/2016 Pt Cpx7451 Low Intensity - 1.5-2.0 04/26/2016 Pt Scb0773 Mod intensity - 2.0-3.0 04/26/2016 Pt Lww6613 Hi intensity - 3.0-4.0 04/26/2016 Tsh Ord6 hTSH II 1.21 uIU/mL 02/29/2016 Pt Tfb1952 PT 21.8 seconds 02/29/2016 Pt Sko4383 INR 2.0 02/29/2016 Pt Kdb5931 Low Intensity - 1.5-2.0 02/29/2016 Pt Ssx2576 Mod intensity - 2.0-3.0 02/29/2016 Pt Gdt5804 Hi intensity - 3.0-4.0 02/29/2016 Lipid Ord30 [...] With Differential Ord2 RDW 16.2 % 06/30/2015 Pt Xtb3995 PT 26.1 seconds 06/30/2015 Pt Erf0824 INR 2.5 06/30/2015 Pt Jdc9612 Low Intensity - 1.5-2.0 06/30/2015 Pt Gcq9360 Mod intensity - 2.0-3.0 06/30/2015 Pt Zpf2946 Hi intensity - 3.0-4.0 06/30/2015 Comp Metabolic Wat277 NA 138 mEq/L 06/30/2015 Comp Metabolic Pap872 K 4.8 mEq/L 06/30/2015 Comp Metabolic Ubq332 CL 107 mEq/L 06/30/2015 Comp Metabolic Kvh031 CO2 27.0 mEq/L 06/30/2015 Comp Metabolic Sjs413 ANION GAP 9 06/30/2015 Comp Metabolic Cjg630 GLUCOSE 98 mg/dL 06/30/2015 Comp Metabolic Zfo157 Creat 1.8 mg/dL 06/30/2015 Comp Metabolic Ray137 eGFR 40 ml/min/1.73m2 06/30/2015 Comp Metabolic Nxv062 BUN 20 mg/dL 06/30/2015 Comp Metabolic Mcg548 B/C Ratio 11.1 Ratio 06/30/2015 Comp Metabolic Ubg606 CALCIUM 9.1 mg/dL 06/30/2015 Comp Metabolic Wdt733 ALK PHOS 39 U/L 06/30/2015 Comp Metabolic Pfb677 AST(SGOT) 21 U/L 06/30/2015 Comp Metabolic Icx127 ALT(SGPT) 23 U/L 06/30/2015 Comp Metabolic Jot631 BILI T 0.5 mg/dL 06/30/2015 Comp Metabolic Zni302 ALBUMIN 4.0 g/dL 06/30/2015 Comp Metabolic Mfu643 TPRO 6.6 g/dL 06/30/2015 Comp Metabolic Jrr618 GLOB 2.6 g/dL 06/30/2015 Comp Metabolic Hrj741 A/G Ratio 1.5 Ratio 06/30/2015 Comp Metabolic Zni725 Osmo 278 mOsmo 06/30/2015 Review of Systems System Result Effective [...] Procedure Codes Date DESTRUCT PREMALG LESION CPT-4: 52195 12/31/2018 DESTRUCT PREMALG LES 2-14 CPT-4: 42802 12/31/2018 OCCULT BLOOD FECES CPT- 4: 74806 04/08/2018 PPPS, SUBSEQ VISIT CPT- 4: G0439 04/03/2018 PPPS, SUBSEQ VISIT CPT- 4: G0439 10/31/2017 PRESCRIP TRANSMIT VIA ERX SY CPT-4: G8553 09/22/2017 THER/PROPH/DIAG INJ SC/IM CPT-4: 15690 01/21/2017 TRIAMCINOLONE ACET INJ NOS CPT-4: J3301 01/21/2017 THER/PROPH/DIAG INJ SC/IM CPT-4: 23093 12/30/2016 ROCEPHIN, PER 250 MG CPT- 4: J0696 12/30/2016 PPPS, SUBSEQ VISIT CPT- 4: G0439 10/25/2016 ROCEPHIN, PER 250 MG CPT- 4: J0696 06/24/2016 THER/PROPH/DIAG INJ SC/IM CPT-4: 52410 06/24/2016 Vital Signs Date Vital 12/31/2018 Blood Pressure 1: 140/80 Code: 8480-6 BMI: 29.0 Code: 80868-2 Heart Rate 1: 86 bpm Height: 5'8" SpO2: 97% Weight: 191 lbs 12/23/2018 Blood Pressure 1: 140/68 Code: 8480-6 BMI: 29.3 Code: 89249-5 Heart Rate 1: 70 bpm Height: 5'8" SpO2: 97% Weight: 193 lbs 04/03/2018 Blood Pressure 1: 128/72 Code: 8480-6 BMI: 29.8 Code: 66869-8 Heart Rate 1: 60 bpm Height: 5'8" SpO2: 96% Weight: 196 lbs 03/31/2018 Blood Pressure 1: 128/76 Code: 8480-6 BMI: 29.8 Code: 71539-4 Heart Rate 1: 56 bpm Height: 5'8" SpO2: 98% Weight: 196 lbs 11/26/2017 Blood Pressure 1: 156/76 Code: 8480-6 BMI: 29.6 Code: 43521-5 Heart Rate 1: 57 bpm Height: 5'8" SpO2: 98% Weight: 195 lbs 10/31/2017 Blood Pressure 1: 136/74 Code: 8480-6 BMI: 29.5 Code: 01229-4 Heart Rate 1: 56 bpm Height: 5'8" SpO2: 95% Waist Measure (cm): 91 cm Weight: 194 lbs 10/07/2017 Blood Pressure 1: 136/72 Code: 8480-6 BMI: 30.3 Code: 95628-0 Heart Rate 1: 58 bpm Height: 5'8" SpO2: 96% Weight: 199 lbs 09/22/2017 Blood Pressure 1: 138/78 Code: 8480-6 BMI: 30.4 Code: 84088-5 Heart Rate 1: 60 bpm Height: 5'8" SpO2: 98% Temperature: 36.6 (C) / 97.9 (F) Weight: 200 lbs 05/08/2017 Blood Pressure 1: 128/80 Code: 8480-6 BMI: 30.0 Code: 34495-7 Heart Rate 1: 75 bpm Height: 5'8" SpO2: 98% Weight: 197 lbs 03/25/2017 Blood Pressure 1: 150/80 Code: 8480-6 BMI: 30.1 Code: 50310-7 Heart Rate 1: 53 bpm Height: 5'8" SpO2: 98% Weight: 198 lbs 01/21/2017 Blood Pressure 1: 156/88 Code: 8480-6 BMI: 29.8 Code: 81681-1 Heart Rate 1: 95 bpm Height: 5'8" SpO2: 98% Temperature: 36.9 (C) / 98.4 (F) Weight: 196 lbs 12/30/2016 Blood Pressure 1: 122/74 Code: 8480-6 BMI: 29.8 Code: 34130-9 Heart Rate 1: 60 bpm Height: 5'8" SpO2: 96% Temperature: 37.1 (C) / 98.8 (F) Weight: 196 lbs 12/26/2016 Blood Pressure 1: 142/74 Code: 8480-6 BMI: 29.8 Code: 59014-6 Heart Rate 1: 58 bpm Height: 5'8" SpO2: 96% Temperature: 36.7 (C) / 98.0 (F) Weight: 196 lbs 12/02/2016 Blood Pressure 1: 128/78 Code: 8480-6 BMI: 30.3 Code: 96879-9 Heart Rate 1: 49 bpm Height: 5'8" SpO2: 98% Temperature: 36.5 (C) / 97.7 (F) Weight: 199 lbs 11/21/2016 Blood Pressure 1: 130/68 Code: 8480-6 BMI: 30.3 Code: 30233-6 Heart Rate 1: 54 bpm Height: 5'8" SpO2: 98% Weight: 199 lbs 10/25/2016 Blood Pressure 1: 150/92 Code: 8480-6 BMI: 29.8 Code: 70355-5 Heart Rate 1: 54 bpm Height: 5'8" SpO2: 97% Waist Measure (cm): 97 cm Weight: 196 lbs 10/23/2016 Blood Pressure 1: 150/92 Code: 8480-6 BMI: 29.9 Code: 60331-1 Heart Rate 1: 54 bpm Height: 5'8" SpO2: 98% Weight: 196 lbs 8 oz 07/29/2016 Blood Pressure 1: 144/72 Code: 8480-6 BMI: 30.3 Code: 30076-2 Heart Rate 1: 54 bpm Height: 5'8" SpO2: 98% Weight: 199 lbs 06/24/2016 Blood Pressure 1: 132/78 Code: 8480-6 BMI: 29.5 Code: 72931-2 Heart Rate 1: 59 bpm Height: 5'8" SpO2: 94% Weight: 194 lbs 02/21/2016 Blood Pressure 1: 138/84 Code: 8480-6 BMI: 30.3 Code: 17970-1 Heart Rate 1: 64 bpm Height: 5'8" SpO2: 95% Weight: 199 lbs 10/18/2015 Blood Pressure 1: 154/84 Code: 8480-6 Blood Pressure 1: 138/72 Code: 8480-6 BMI: 30.4 Code: 77337-0 Heart Rate 1: 68 bpm Height: 5'8" SpO2: 97% Weight: 200 lbs 05/02/2015 Blood Pressure 1: 114/64 Code: 8480-6 BMI: 29.0 Code: 05999-1 Heart Rate 1: 62 bpm Height: 5'8" [...] abscess without bleeding[ICD10: K57.00] Gabrielle Husain MD, [facility] CPT-4: 49133 12/23/2018 ([id number]) [id number] EST. PATIENT, LEVEL III Diagnosis: Low back pain[ICD10: M54.5] Diagnosis: Muscle spasm of back[ICD10: M62.830] Leidy Husain MD, [facility] CPT-4: 59697 03/31/2018 ([id number]) [id number] EST. PATIENT, LEVEL III Diagnosis: Actinic keratosis[ICD10: L57.0] Diagnosis: Other hypertrophic disorders of the skin[ICD10: L91.8] Amanda Husain MD, [facility] CPT-4: 28944 11/26/2017 ([id number]) 69831 EST. PATIENT, LEVEL IV Diagnosis: Essential (primary) hypertension[ICD10: I10] Diagnosis: Mild cognitive impairment, so stated[ICD10: G31.84] Amanda Husain MD, [facility] CPT-4: 43046 10/07/2017 ([id number]) 03809 EST. PATIENT, LEVEL III Diagnosis: Pneumonia due to other streptococci[ICD10: J15.4] Diagnosis: Cough[ICD10: R05] Amanda Husain MD, [facility] CPT-4: 64314 09/22/2017 [id number] EST. PATIENT, LEVEL IV Diagnosis: Left lower quadrant pain[ICD10: R10.32] Diagnosis: Other fatigue[ICD10: R53.83] [facility] CPT-4: 42053 05/08/2017 ([id number]) 86916 EST. PATIENT, LEVEL III Diagnosis: Essential (primary) hypertension[ICD10: I10] Amanda Husain MD, [facility] CPT-4: 01965 03/25/2017 ([id number]) 90313 EST. PATIENT, LEVEL III Diagnosis: Cough[ICD10: R05] Diagnosis: Allergic rhinitis due to pollen[ICD10: J30.1] Leidy Husain MD, [facility] CPT-4: 18948 01/21/2017 [id number] EST. PATIENT, LEVEL III Diagnosis: Other allergic rhinitis[ICD10: J30.89] Diagnosis: Cough[ICD10: R05] Gabrielle Husain MD [facility] CPT-4: 77900 12/30/2016 ([id number]) 25037 EST. PATIENT, LEVEL III Diagnosis: Cough[ICD10: R05] Diagnosis: Pneumonia, unspecified organism[ICD10: J18.9] Leidy Husain MD, [facility] CPT-4: 78299 12/26/2016 ([id number]) 77817 EST. PATIENT, LEVEL III Diagnosis: Pneumonia due to other streptococci[ICD10: J15.4] Diagnosis: Cough[ICD10: R05] Amanda Husain MD, [facility] CPT-4: 06931 12/02/2016 ([id number]) 83559 EST. PATIENT, LEVEL III Diagnosis: Essential (primary) hypertension[ICD10: I10] Amanda Husain MD, [facility] CPT-4: 98705 11/21/2016 ([id number]) 32813 EST. PATIENT, LEVEL IV Diagnosis: Essential (primary) hypertension[ICD10: I10] Diagnosis: Mixed hyperlipidemia[ICD10: E78.2] Amanda Husain MD, [facility] CPT- 4: 85077 10/23/2016 02087 EST. PATIENT, LEVEL IV Diagnosis: Other allergic rhinitis[ICD10: J30.89] Diagnosis: Cough[ICD10: R05] Gabrielle Husain MD, [facility] CPT-4: 94091 07/29/2016 ([id number]) Miscellaneous no charge Diagnosis: Pneumonia, unspecified organism[ICD10: J18.9] Gabrielle Husain MD [facility] CPT-4: 52385 06/27/2016 ([id number]) 64091 EST. PATIENT, LEVEL IV Diagnosis: Essential (primary) hypertension[ICD10: I10] Diagnosis: Pneumonia, unspecified organism[ICD10: J18.9] Diagnosis: Cough[ICD10: R05] Diagnosis: Mixed hyperlipidemia[ICD10: E78.2] Amanda Husain MD, [facility] CPT- 4: 36482 06/24/2016 ([id number] 17834 EST. PATIENT, LEVEL IV Diagnosis: Mixed hyperlipidemia[ICD10: E78.2] Diagnosis: Essential (primary) hypertension[ICD10: I10] Diagnosis: Gastro-esophageal reflux disease without esophagitis[ICD10: K21.9] Amanda Husain MD, [facility] CPT-4: 85130 02/21/2016 ([id number] 64945 EST. PATIENT, LEVEL IV Diagnosis: Essential (primary) hypertension[ICD10: I10] Diagnosis: Mixed hyperlipidemia[ICD10: E78.2] Diagnosis: Chronic lymphocytic 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[ICD10: C91.10] Amanda Husain MD, [facility] CPT-4: 97144 10/18/2015 ([id number]) OFFICE VISIT, NEW - LEVEL 3 Diagnosis: Diverticulitis[ICD9: 562.11] Amanda Husain MD, [facility] CPT-4: 13830 05/02/2015 Plan of Care Planned Activity Notes Codes Status Date Visit Plan: Actinic Keratosis - treated with cryotherapy x 3, pt advised on how to appropriately care for the lesion. Call if not improved after thorough healing - apply neosporin to skin lesions. 12/31/2018 Appointment: Amanda Husain WPtel: [address] [place], [place] [id number] (30 min) Complex 12/31/2018 Patient Education: Patient Medication Summary Completed 12/31/2018 Visit Plan: Diverticulitis - rx for antibiotic sent to pt's pharmacy - pt advised to avoid seeds, nuts, popcorn, or any other food which has been proven to upset the pt's stomach. 12/23/2018 Appointment: Gabrielle Corona WPtel: [address] [place], [place] [id number] [place] (15 min) Moderate 12/23/2018 Patient Education: Patient Medication Summary Completed 12/23/2018 Appointment: Gabrielle Corona WPtel: [address] [place], [place] [id number] (30 min) Complex 12/16/2018 Appointment: Lab Draw [...] not improve. 03/31/2018 Appointment: Leidy Angulo WPtel: [facility] [place] (15 min) Moderate 03/31/2018 Patient Education: Patient Medication Summary Completed 03/31/2018 Visit Plan: Wound Instructions - Pt was instructed to keep the wound clean, wash with antibacterial soap, use triple antibiotic ointment, call if redness, pustular drainage, or any other acute concerns. 11/26/2017 Appointment: Amanda Husain WPtel: [facility] [id number] [facility] Procedure 11/26/2017 Patient Education: Patient Medication [...] care surrogate. 10/31/2017 Appointment: Leidy [facility]ulo [phone] [phone] [facility] - Annual Wellness Visit 10/31/2017 Patient [...] loss. 10/07/2017 Appointment: Amanda Husain [facility]Ptel[facility] [phone] [facility] [place] (30 min) Complex 10/07/2017 Patient Education: Patient Medication Summary Completed 10/07/2017 Patient Education: Obesity Completed 10/07/2017 Patient Education: Hypertension Completed 10/07/2017 Visit Plan: Pneumonia - Pt has been diagnosed with pneumonia by physical exam. Antibiotics have been ordered. The pt is aware of the diagnosis and the need for acute treatment of this illness. 09/22/2017 Appointment: Amanda Husain [facility]el[facility] [phone] [facility] [id number] (15 min) Moderate 09/22/2017 Patient Education: Patient [...] or concerns. 05/08/2017 Appointment: Gabrielle Corona WPtel: [address] [place], [place] [phone] (30 min) Complex 05/08/2017 Patient Education: Patient [...] 10mg daily. 03/25/2017 Appointment: Amanda Husain WPtel: [address] [place], [place] [phone] (15 min) Moderate 03/25/2017 Patient Education: Patient Medication Summary Completed 03/25/2017 Appointment: Leidy Angulo WPtel: [address] [place], [place] [phone] (15 min) Moderate 01/31/2017 Visit Plan: URI/Allergies - Pt advised to increase fluids, vitamin C. Discussed natural and expected course of this diagnosis and need to alert me if symptoms do not follow expected course, or if any worse. RX sent to patient's pharmacy. 01/21/2017 Appointment: Leidy Angulo WPtel: [facility] [phone] (15 min) Moderate 01/21/2017 Patient Education: [...] controlled with the medication. 12/30/2016 Appointment: Leidy Anguol WPtel: [phone] [phone] (15 min) Moderate 12/30/2016 Appointment: Gabrielle Corona WPtel: [phone] [facility] (30 min) Complex 12/30/2016 Patient Education: Patient [...] the levaquin. 12/26/2016 Appointment: Leidy Angulo WPtel: [facility] [phone] (15 min) Moderate 12/26/2016 Patient Education: [...] at home. 11/21/2016 Appointment: Amanda Husain WPtel: [facility] [place] (15 min) Moderate 11/21/2016 Patient Education: [...] surrogate. 10/25/2016 Appointment: Leidy Angulo WPtel: [phone] [phone] [facility] - Annual Wellness Visit 10/25/2016 Patient [...] Husain WPtel: [phone] [facility] [place] (15 min) Moderate 10/23/2016 Patient Education: Patient [...] concerns. 07/29/2016 Appointment: Gabrielle Corona [facility]: [phone] [place] [place] (15 min) Moderate 07/29/2016 Patient Education: [...] medications. 06/24/2016 Appointment: Rodrigue Amanda [facility]Ptel: [phone] [place] (15 min) Moderate 06/24/2016 Patient Education: Patient [...] the symptoms are not improving. 02/21/2016 Appointment: RodrigueAmanda WPtel: [phone] [facility] [place] (15 min) Moderate 02/21/2016 Patient Education: Patient [...] Care Plan: COMPLETE CBC AUTOMATED LOINC : 32732-0 Ordered 05/02/2015 Care Plan: ASSAY OF TROPONIN QUANT Ordered 05/02/2015 Care Plan: ASSAY OF CK (CPK) Ordered 05/02/2015 Instructions Comment zyrtec - daily for allergies If in [...] HR and notify clinic with any concerns. Finish levaquin and prednisone - let me [...] healing - apply neosporin to skin lesions. [facility] - take three times daily x [...] for acute treatment of this illness. . Hypertension - well controlled - continue [...] pustular drainage, or any other acute concerns. check INR today and - come by [...]
--- OUTSIDE RECORDS SUMMARY | 2019-05-19 11:24 | XMS REPORT | CCD ---
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 Role Phone PP Unavailable CCM Unavailable Summary Purpose Interface Exchange Insurance Providers Payer name Policy type / Coverage type Covered democrat ID Effective Begin Date Effective End Date WPS Medicare Part B [id number] Unknown [employer] [id number] Unknown Family history Brother Diagnosis Age At [...] Unknown Retired 05/02/[address]: 3611301 Former smoker Quit in 1966 05/02/2015 Number [...] Fill Instructions metronidazole 500 mg tablet RxNorm: 476303 1 Tablet(s) PO TID 12/23/2018 01/01/2019 Inactive omeprazole 20 mg capsule,delayed release RxNorm: 533916 TAKE 1 CAPSULE BY MOUTH ONCE DAILY 12/07/2018 No Stop Date Active metoprolol tartrate 25 mg tablet RxNorm: 886908 Tablet(s) TAKE 1 TABLET BY MOUTH TWICE DAILY 10/16/2018 No Stop Date Active metoprolol tartrate 25 mg tablet RxNorm: 310517 TAKE 1 TABLET BY MOUTH TWICE DAILY 07/13/2018 10/15/2018 Inactive Trilipix 135 mg capsule,delayed release RxNorm: 810865 1 Capsule(s) PO daily 06/17/2018 10/14/2018 Inactive ramipril 10 mg capsule RxNorm: 039880 TAKE ONE CAPSULE BY MOUTH ONCE DAILY 06/15/2018 No Stop Date Active omeprazole 20 mg capsule,delayed release RxNorm: 167625 Capsule(s) TAKE ONE CAPSULE BY MOUTH ONCE DAILY 06/03/2018 No Stop Date Active omeprazole 20 mg capsule,delayed release RxNorm: 681779 Capsule(s) TAKE ONE CAPSULE BY MOUTH ONCE DAILY 06/02/2018 06/02/2018 Inactive metoprolol tartrate 25 mg tablet RxNorm: 177478 TAKE ONE TABLET BY MOUTH TWICE DAILY 02/16/2018 07/12/2018 Inactive omeprazole 20 mg capsule,delayed release RxNorm: 756677 TAKE ONE CAPSULE BY MOUTH ONCE DAILY 01/05/2018 06/01/2018 Inactive metoprolol tartrate 25 mg tablet RxNorm: 528102 TAKE ONE TABLET BY MOUTH TWICE DAILY 10/27/2017 02/15/2018 Inactive azithromycin 250 mg tablet RxNorm: 872028 1 Tablet(s) PO UD 2 tabs on day #1, then 1 pill daily x 4 days 09/22/2017 11/25/2017 Inactive omeprazole 20 mg capsule,delayed release RxNorm: 589248 TAKE ONE CAPSULE BY MOUTH ONCE DAILY 06/16/2017 12/12/2017 Inactive metronidazole 500 mg tablet RxNorm: 362064 1 Tablet(s) PO TID 05/08/2017 05/14/2017 Inactive ramipril 10 mg capsule RxNorm: 357768 1 Capsule(s) PO daily 03/25/2017 03/19/2018 Inactive Kenalog 40 mg/mL suspension for injection RxNorm: 4093546 Milliliter(s) Inj 01/21/2017 01/21/2017 Inactive ceftriaxone 500 mg solution for injection RxNorm: 7679860 Inj 12/30/2016 12/30/2016 Inactive Phenergan with Codeine Syrup RxNorm: 5-10 Milliliter(s) PO Q6 PRN 12/26/2016 No Stop Date Active Levaquin 500 mg tablet RxNorm: 467059 1 Tablet(s) PO daily 12/26/2016 01/01/2017 Inactive Tessalon Perles 100 mg capsule RxNorm: 729721 1 Capsule(s) PO TID as needed 12/26/2016 01/04/2017 Inactive prednisone 20 mg tablet RxNorm: 456194 1 Tablet(s) PO BID 12/26/2016 12/30/2016 Inactive omeprazole 20 mg capsule,delayed release RxNorm: 561935 TAKE ONE CAPSULE BY MOUTH ONCE DAILY 12/16/2016 06/13/2017 Inactive cefdinir 300 mg capsule RxNorm: 294625 1 Capsule(s) PO BID 12/02/2016 12/08/2016 Inactive azithromycin 250 mg tablet RxNorm: 206564 Tablet(s) 2 tabs on day #1, then one tab PO daily x 4 more days 12/02/2016 12/25/2016 Inactive metoprolol tartrate 25 mg tablet RxNorm: 621926 1 Tablet(s) PO BID 10/23/2016 10/17/2017 Inactive metoprolol tartrate 25 mg tablet RxNorm: 926431 1 Tablet(s) PO BID 10/23/2016 10/22/2016 Inactive ceftriaxone 500 mg solution for injection RxNorm: 4288363 Inj 06/24/2016 06/24/2016 Inactive cefdinir 300 mg capsule RxNorm: 657970 1 Capsule(s) PO BID 06/24/2016 06/30/2016 Inactive omeprazole 20 mg capsule,delayed release RxNorm: 796556 TAKE ONE CAPSULE BY MOUTH DAILY 06/07/2016 12/03/2016 Inactive omeprazole 20 mg capsule,delayed release RxNorm: 410807 TAKE ONE CAPSULE BY MOUTH DAILY 01/29/2016 05/27/2016 Inactive metoprolol tartrate 50 mg tablet RxNorm: 722187 Tablet(s) TAKE ONE TABLET BY MOUTH DAILY 10/11/2015 10/10/2015 Inactive metoprolol tartrate 50 mg tablet RxNorm: 564597 TAKE ONE TABLET BY MOUTH DAILY 10/11/2015 10/22/2016 Inactive omeprazole 20 mg capsule,delayed release RxNorm: 441341 TAKE ONE CAPSULE BY MOUTH DAILY 08/28/2015 01/24/2016 Inactive metoprolol tartrate 50 mg tablet RxNorm: 024950 TAKE ONE TABLET BY MOUTH DAILY 08/11/2015 10/09/2015 Inactive metoprolol tartrate 50 mg tablet RxNorm: 792694 1 Tablet(s) PO daily 06/14/2015 08/10/2015 Inactive omeprazole 20 mg capsule,delayed release RxNorm: 275100 1 Capsule(s) PO daily 05/29/2015 08/26/2015 Inactive omeprazole 20 mg capsule,delayed release RxNorm: 489086 1 Capsule(s) PO daily 05/29/2015 05/28/2015 Inactive metronidazole 500 mg tablet RxNorm: 634527 1 Tablet(s) PO TID 05/02/2015 05/08/2015 Inactive finasteride 5 mg tablet RxNorm: 216324 1 Tablet(s) PO daily No Start Date Active warfarin 5 mg tablet RxNorm: 579141 1 Tablet(s) PO daily No Start Date Active Aspirin Childrens 81 mg chewable tablet RxNorm: 258127 1 Tablet(s) PO daily No Start Date Active amiodarone 200 mg tablet RxNorm: 849662 1 Tablet(s) PO daily No Start Date Active vitamin E (dl, acetate) 1,000 unit capsule RxNorm: 600571 1 Capsule(s) PO daily No Start Date Active atorvastatin 80 mg tablet RxNorm: 680995 1 Tablet(s) PO daily No Start Date Active Fish Oil 120 mg-180 mg capsule RxNorm: 053644 1 Capsule(s) PO BID No Start Date 10/30/2017 Inactive metoprolol tartrate 50 mg tablet RxNorm: 961136 1 Tablet(s) PO daily No Start Date 06/13/2015 Inactive Zetia 10 mg tablet RxNorm: 900641 1 Tablet(s) PO daily No Start Date 10/17/2015 Inactive ramipril 5 mg capsule RxNorm: 276696 1 Capsule(s) PO daily No Start Date 03/24/2017 Inactive Tessalon Perles 100 mg capsule RxNorm: 010326 1 Capsule(s) PO TID as needed No Start Date 12/25/2016 Inactive omeprazole 20 mg capsule,delayed release RxNorm: 512677 1 Capsule(s) PO daily No Start Date 05/28/2015 Inactive Trilipix 135 mg capsule,delayed release RxNorm: 716264 1 Capsule(s) PO daily No Start Date 06/16/2018 Inactive Centrum Silver tablet RxNorm: 1 Tablet(s) PO daily No Start Date 10/30/2017 Inactive Medication Administered Medication Codes Instructions Start Date Status Kenalog 40 mg/mL suspension for injection RxNorm: 3393075 Milliliter 01/21/2017 No longer Active ceftriaxone 500 mg solution for injection RxNorm: 1288316 12/30/2016 No longer Active ceftriaxone 500 mg solution for injection RxNorm: 8529373 06/24/2016 No longer Active Immunizations Vaccine Codes [...] Code Item Item Code Result Date Pt Xmh0030 PT 17.6 seconds 12/25/2018 Pt Gdr1832 INR 1.5 12/25/2018 Pt Hha7553 Low Intensity - 1.5-2.0 12/25/2018 Pt Lcu8527 Mod intensity - 2.0-3.0 12/25/2018 Pt Nac9269 Hi intensity - 3.0-4.0 12/25/2018 Cbc With [...] 30.0 pg 12/10/2018 Cbc With Differential Ord2 [place]% 10.5 % 12/10/2018 Cbc With Differential Ord2 [...] 2.09 K/ul 12/10/2018 Cbc With Differential Ord2 [place] ABS# 0.8 K/ul 12/10/2018 Cbc With Differential Ord2 Eos ABS# 0.4 K/ul 12/10/2018 Cbc With Differential Ord2 Baso ABS# 0.0 K/ul 12/10/2018 Uric Acid Ord77 Uric A 4.6 mg/dL 12/10/2018 Random Urine Protein/Creatinine Ratio Hnz9541 U Prot 9.0 mg/dl 12/10/2018 Random Urine Protein/Creatinine Ratio Ruj6906 U CREAT 126.0 mg/dL 12/10/2018 Random Urine Protein/Creatinine Ratio Yic2390 R MTP/Creat Ratio 0.07 12/10/2018 Ferritin Ord22 FERRITIN 47.9 ng/mL 12/10/2018 Renal Xwm520 NA 142 mEq/L 12/10/2018 Renal Xuk195 K 4.3 mEq/L 12/10/2018 Renal Gno755 CL 106 mEq/L 12/10/2018 Renal Xsy070 CO2 30.0 mEq/L 12/10/2018 Renal Jox544 ANION GAP 10 12/10/2018 Renal Uij270 Osmo 286 mOsmo 12/10/2018 Renal Upp676 GLUCOSE 105 mg/dL 12/10/2018 Renal Ann797 BUN 20 mg/dL 12/10/2018 Renal Idq947 Creat 1.4 mg/dL 12/10/2018 Renal Lpb124 eGFR 52 ml/min/1.73m2 12/10/2018 Renal Xrt050 B/C Ratio 14.1 Ratio 12/10/2018 Renal Vkb574 CALCIUM 9.7 mg/dL 12/10/2018 Renal Ptq541 PHOS 3.3 mg/dL 12/10/2018 Renal Tbq286 ALBUMIN 4.0 g/dL 12/10/2018 Urinalysis Ord28 U-Color [...] 17.8 % 12/10/2018 Vitamin D 25 Oh Mow6503 VITAMIN D, 25 HYDROXY 27.29 ng/mL 12/10/2018 Pt Zhx5710 PT 23.1 seconds 11/05/2018 Pt Eol5798 INR 2.1 11/05/2018 Pt Kvv9803 Low Intensity - 1.5-2.0 11/05/2018 Pt Hwu1981 Mod intensity - 2.0-3.0 11/05/2018 Pt Spl2099 Hi intensity - 3.0-4.0 11/05/2018 Pt Vbv3274 PT 29.8 seconds 08/17/2018 Pt Pqz8370 INR 2.8 08/17/2018 Pt Orf6159 Low Intensity - 1.5-2.0 08/17/2018 Pt Umt6573 Mod intensity - 2.0-3.0 08/17/2018 Pt Xxz4490 Hi intensity - 3.0-4.0 08/17/2018 Pt Vgq6769 PT 27.7 seconds 05/18/2018 Pt Nht1102 INR 2.6 05/18/2018 Pt Vvw7694 Low Intensity - 1.5-2.0 05/18/2018 Pt Xax1141 Mod intensity - 2.0-3.0 05/18/2018 Pt Pfy2499 Hi intensity - 3.0-4.0 05/18/2018 Uric Acid [...] 30.9 pg 05/18/2018 Cbc With Differential Ord2 [place]% 13.8 % 05/18/2018 Cbc With Differential Ord2 [...] 1.94 K/ul 05/18/2018 Cbc With Differential Ord2 [place] ABS# 0.9 K/ul 05/18/2018 Cbc With Differential Ord2 Eos ABS# 0.4 K/ul 05/18/2018 Cbc With Differential Ord2 Baso ABS# 0.0 K/ul 05/18/2018 Random Urine Protein/Creatinine Ratio Xoy6563 U Prot 7.0 mg/dl 05/18/2018 Random Urine Protein/Creatinine Ratio Dmh9573 U CREAT 75.0 mg/dL 05/18/2018 Random Urine Protein/Creatinine Ratio Lrv2963 R MTP/Creat Ratio 0.09 05/18/2018 Vitamin D 25 Oh Kux2630 VITAMIN D, 25 HYDROXY 27.40 ng/mL 05/18/2018 Tibc Ord40 Iron 68 ug/dl 05/18/2018 Tibc Ord40 UIBC 308 ug/dL 05/18/2018 Tibc Ord40 TIBC 376 ug/dL 05/18/2018 Tibc Ord40 Fe-%Sat 18.1 % 05/18/2018 Parathyroid Hormone Bbt287 PTH 36.20 pg/ml 05/18/2018 Urinalysis Ord28 U-Color [...] hours from collection if refrigerated) 05/18/2018 Renal Fnv969 NA 141 mEq/L 05/18/2018 Renal Dpy443 K 4.0 mEq/L 05/18/2018 Renal Dih018 CL 107 mEq/L 05/18/2018 Renal Sja696 CO2 27.0 mEq/L 05/18/2018 Renal Qnr114 ANION GAP 11 05/18/2018 Renal Dlh845 Osmo 282 mOsmo 05/18/2018 Renal Eec239 GLUCOSE 83 mg/dL 05/18/2018 Renal Xqd194 BUN 18 mg/dL 05/18/2018 Renal Lrr348 Creat 1.4 mg/dL 05/18/2018 Renal Xvt961 eGFR 55 ml/min/1.73m2 05/18/2018 Renal Dtx782 B/C Ratio 13.3 Ratio 05/18/2018 Renal Rox143 CALCIUM 9.0 mg/dL 05/18/2018 Renal Enh555 PHOS 2.9 mg/dL 05/18/2018 Renal Boo337 ALBUMIN 4.0 g/dL 05/18/2018 Ferritin Ord22 FERRITIN [...] Metabolic Ord15 CALCIUM 9.2 mg/dL 03/23/2018 Pt Hjs8703 PT 29.0 seconds 03/13/2018 Pt Enk4906 INR 2.7 03/13/2018 Pt Txa5061 Low Intensity - 1.5-2.0 03/13/2018 Pt Cxb1179 Mod intensity - 2.0-3.0 03/13/2018 Pt Zih2875 Hi intensity - 3.0-4.0 03/13/2018 Pt Chh1252 PT 31.6 seconds 03/04/2018 Pt Xtl7156 INR 3.0 03/04/2018 Pt Mvh8481 Low Intensity - 1.5-2.0 03/04/2018 Pt Pyo5210 Mod intensity - 2.0-3.0 03/04/2018 Pt Zme0873 Hi intensity - 3.0-4.0 03/04/2018 Pt Zrm7395 PT 33.3 seconds 01/29/2018 Pt Nho3737 INR 3.2 01/29/2018 Pt Bon7276 Low Intensity - 1.5-2.0 01/29/2018 Pt Qtn3256 Mod intensity - 2.0-3.0 01/29/2018 Pt Pvo5551 Hi intensity - 3.0-4.0 01/29/2018 Pt Lqn1823 PT 26.1 seconds 01/21/2018 Pt Xlo1715 INR 2.4 01/21/2018 Pt Aay1375 Low Intensity - 1.5-2.0 01/21/2018 Pt Qrx9330 Mod intensity - 2.0-3.0 01/21/2018 Pt Yop3737 Hi intensity - 3.0-4.0 01/21/2018 Pt Ccw5046 PT 35.7 seconds 01/09/2018 Pt Nwh2333 INR 3.5 01/09/2018 Pt Zzw3924 Low Intensity - 1.5-2.0 01/09/2018 Pt Hwp4536 Mod intensity - 2.0-3.0 01/09/2018 Pt Rkg7521 Hi intensity - 3.0-4.0 01/09/2018 Pt Eou3259 PT 23.8 seconds 12/04/2017 Pt Cus7327 INR 2.1 12/04/2017 Pt Zgt2698 Low Intensity - 1.5-2.0 12/04/2017 Pt Vnr2831 Mod intensity - 2.0-3.0 12/04/2017 Pt Mzv2883 Hi intensity - 3.0-4.0 12/04/2017 Pt Gup8175 PT 32.3 seconds 11/12/2017 Pt Nym1197 INR 3.1 11/12/2017 Pt Agx9094 Low Intensity - 1.5-2.0 11/12/2017 Pt Wxc2338 Mod intensity - 2.0-3.0 11/12/2017 Pt Qen5710 Hi intensity - 3.0-4.0 11/12/2017 Urinalysis Ord28 [...] hours from collection if refrigerated) 10/20/2017 Pt Vyg9973 PT 16.6 seconds 10/20/2017 Pt Gls3247 INR 1.4 10/20/2017 Pt Wjn8965 Low Intensity - 1.5-2.0 10/20/2017 Pt Jzv5856 Mod intensity - 2.0-3.0 10/20/2017 Pt Jag3829 Hi intensity - 3.0-4.0 10/20/2017 Renal Odg494 NA 142 mEq/L 10/20/2017 Renal Puq005 K 4.5 mEq/L 10/20/2017 Renal Wgx061 CL 107 mEq/L 10/20/2017 Renal Txa582 CO2 28.0 mEq/L 10/20/2017 Renal Axc455 ANION GAP 12 10/20/2017 Renal Kry881 Osmo 288 mOsmo 10/20/2017 Renal Ghy612 GLUCOSE 96 mg/dL 10/20/2017 Renal Vje976 BUN 27 mg/dL 10/20/2017 Renal Awf541 Creat 1.6 mg/dL 10/20/2017 Renal Klb166 eGFR 46 ml/min/1.73m2 10/20/2017 Renal Mlb534 B/C Ratio 17.2 Ratio 10/20/2017 Renal Pkk836 CALCIUM 9.4 mg/dL 10/20/2017 Renal Mwh939 PHOS 3.0 mg/dL 10/20/2017 Renal Mwq526 ALBUMIN 4.2 g/dL 10/20/2017 Pt Mjx1035 PT 31.2 seconds 10/17/2017 Pt Dco9839 INR 3.0 10/17/2017 Pt Qvr9288 Low Intensity - 1.5-2.0 10/17/2017 Pt Ehi9345 Mod intensity - 2.0-3.0 10/17/2017 Pt Oov4131 Hi intensity - 3.0-4.0 10/17/2017 Comp Metabolic Pqp665 NA 139 mEq/L 05/08/2017 Comp Metabolic Pvr108 K 4.1 mEq/L 05/08/2017 Comp Metabolic Ssz912 CL 103 mEq/L 05/08/2017 Comp Metabolic Djc802 CO2 28.0 mEq/L 05/08/2017 Comp Metabolic Cmd374 ANION GAP 12 05/08/2017 Comp Metabolic Bpy948 GLUCOSE 75 mg/dL 05/08/2017 Comp Metabolic Rwf527 Creat 1.3 mg/dL 05/08/2017 Comp Metabolic Rkk125 eGFR 55 ml/min/1.73m2 05/08/2017 Comp Metabolic Clm846 BUN 20 mg/dL 05/08/2017 Comp Metabolic Flx259 B/C Ratio 14.9 Ratio 05/08/2017 Comp Metabolic Lgu369 CALCIUM 8.8 mg/dL 05/08/2017 Comp Metabolic Llm532 ALK PHOS 51 U/L 05/08/2017 Comp Metabolic Jbq315 AST(SGOT) 30 U/L 05/08/2017 Comp Metabolic Pqs350 ALT(SGPT) 31 U/L 05/08/2017 Comp Metabolic Jta419 BILI T 0.9 mg/dL 05/08/2017 Comp Metabolic Hst734 ALBUMIN 4.0 g/dL 05/08/2017 Comp Metabolic Wfq243 TPRO 6.5 g/dL 05/08/2017 Comp Metabolic Kmz588 GLOB 2.6 g/dL 05/08/2017 Comp Metabolic Vvu697 A/G Ratio 1.5 Ratio 05/08/2017 Comp Metabolic Qpf989 Osmo 279 mOsmo 05/08/2017 Cbc With Differential [...] 31.5 pg 05/08/2017 Cbc With Differential Ord2 [place]% 13.5 % 05/08/2017 Cbc With Differential Ord2 [...] 1.29 K/ul 05/08/2017 Cbc With Differential Ord2 [place] ABS# 1.1 K/ul 05/08/2017 Cbc With Differential Ord2 Eos ABS# 0.2 K/ul 05/08/2017 Cbc With Differential Ord2 Baso ABS# 0.0 K/ul 05/08/2017 Pt Gev0007 PT 22.7 seconds 11/22/2016 Pt Zwu5452 INR 2.1 11/22/2016 Pt Uoq2271 Low Intensity - 1.5-2.0 11/22/2016 Pt Rnq6218 Mod intensity - 2.0-3.0 11/22/2016 Pt Msu8586 Hi intensity - 3.0-4.0 11/22/2016 Pt Npa5830 PT 24.4 seconds 10/25/2016 Pt Mhc7920 INR 2.3 10/25/2016 Pt Xgq6724 Low Intensity - 1.5-2.0 10/25/2016 Pt Uee1879 Mod intensity - 2.0-3.0 10/25/2016 Pt Cwf9087 Hi intensity - 3.0-4.0 10/25/2016 Pt Rlk8783 PT 23.5 seconds 09/04/2016 Pt Jut9125 INR 2.2 09/04/2016 Pt Qpc3426 Low Intensity - 1.5-2.0 09/04/2016 Pt Aru0425 Mod intensity - 2.0-3.0 09/04/2016 Pt Ike8547 Hi intensity - 3.0-4.0 09/04/2016 Pt Jxl4484 PT 26.1 seconds 07/09/2016 Pt Dsz6431 INR 2.6 07/09/2016 Pt Wmc1725 Low Intensity - 1.5-2.0 07/09/2016 Pt Tzw5664 Mod intensity - 2.0-3.0 07/09/2016 Pt Qbl9105 Hi intensity - 3.0-4.0 07/09/2016 Pt Hjv1575 PT 19.4 seconds 06/24/2016 Pt Sxk1681 INR 1.7 06/24/2016 Pt Ktk7895 Low Intensity - 1.5-2.0 06/24/2016 Pt Gaw7802 Mod intensity - 2.0-3.0 06/24/2016 Pt Zue0642 Hi intensity - 3.0-4.0 06/24/2016 Pt Pua5644 PT 28.9 seconds 04/26/2016 Pt Zgw8074 INR 2.9 04/26/2016 Pt Kio8081 Low Intensity - 1.5-2.0 04/26/2016 Pt Xxf8353 Mod intensity - 2.0-3.0 04/26/2016 Pt Mhs8743 Hi intensity - 3.0-4.0 04/26/2016 Tsh Ord6 hTSH II 1.21 uIU/mL 02/29/2016 Pt Xix4141 PT 21.8 seconds 02/29/2016 Pt Yay3792 INR 2.0 02/29/2016 Pt Dgg1502 Low Intensity - 1.5-2.0 02/29/2016 Pt Gqn1133 Mod intensity - 2.0-3.0 02/29/2016 Pt Swy6604 Hi intensity - 3.0-4.0 02/29/2016 Lipid Ord30 [...] Ord2 RDW 16.2 % 06/30/2015 Comp Metabolic Nhn701 NA 138 mEq/L 06/30/2015 Comp Metabolic Jyl504 K 4.8 mEq/L 06/30/2015 Comp Metabolic Fet321 CL 107 mEq/L 06/30/2015 Comp Metabolic Vvd748 CO2 27.0 mEq/L 06/30/2015 Comp Metabolic Mll400 ANION GAP 9 06/30/2015 Comp Metabolic Cak556 GLUCOSE 98 mg/dL 06/30/2015 Comp Metabolic Wdv034 Creat 1.8 mg/dL 06/30/2015 Comp Metabolic Yjb876 eGFR 40 ml/min/1.73m2 06/30/2015 Comp Metabolic Zno253 BUN 20 mg/dL 06/30/2015 Comp Metabolic Yak956 B/C Ratio 11.1 Ratio 06/30/2015 Comp Metabolic Icy006 CALCIUM 9.1 mg/dL 06/30/2015 Comp Metabolic Qcm037 ALK PHOS 39 U/L 06/30/2015 Comp Metabolic Sbf962 AST(SGOT) 21 U/L 06/30/2015 Comp Metabolic Wlw384 ALT(SGPT) 23 U/L 06/30/2015 Comp Metabolic Xun126 BILI T 0.5 mg/dL 06/30/2015 Comp Metabolic Stc262 ALBUMIN 4.0 g/dL 06/30/2015 Comp Metabolic Ixj577 TPRO 6.6 g/dL 06/30/2015 Comp Metabolic Odg103 GLOB 2.6 g/dL 06/30/2015 Comp Metabolic Qcr641 A/G Ratio 1.5 Ratio 06/30/2015 Comp Metabolic Ruv371 Osmo 278 mOsmo 06/30/2015 Pt Ibv7447 PT 26.1 seconds 06/30/2015 Pt Pis0192 INR 2.5 06/30/2015 Pt Bhn2812 Low Intensity - 1.5-2.0 06/30/2015 Pt Slr3978 Mod intensity - 2.0-3.0 06/30/2015 Pt Nid3525 Hi intensity - 3.0-4.0 06/30/2015 Review of [...] Procedure Codes Date DESTRUCT PREMALG LESION CPT-4: 70014 12/31/2018 DESTRUCT PREMALG LES 2-14 CPT-4: 44220 12/31/2018 OCCULT BLOOD FECES CPT- 4: 85620 04/08/2018 PPPS, SUBSEQ VISIT CPT- 4: G0439 04/03/2018 PPPS, SUBSEQ VISIT CPT- 4: G0439 10/31/2017 PRESCRIP TRANSMIT VIA ERX SY CPT-4: G8553 09/22/2017 THER/PROPH/DIAG INJ SC/IM CPT-4: 89031 01/21/2017 TRIAMCINOLONE ACET INJ NOS CPT-4: J3301 01/21/2017 THER/PROPH/DIAG INJ SC/IM CPT-4: 24723 12/30/2016 ROCEPHIN, PER 250 MG CPT- 4: J0696 12/30/2016 PPPS, SUBSEQ VISIT CPT- 4: G0439 10/25/2016 ROCEPHIN, PER 250 MG CPT- 4: J0696 06/24/2016 THER/PROPH/DIAG INJ SC/IM CPT-4: 96913 06/24/2016 Vital Signs Date Vital 12/31/2018 Blood Pressure 1: 140/80 Code: 8480-6 BMI: 29.0 Code: 45209-1 Heart Rate 1: 86 bpm Height: 5'8" SpO2: 97% Weight: 191 lbs 12/23/2018 Blood Pressure 1: 140/68 Code: 8480-6 BMI: 29.3 Code: 57253-8 Heart Rate 1: 70 bpm Height: 5'8" SpO2: 97% Weight: 193 lbs 04/03/2018 Blood Pressure 1: 128/72 Code: 8480-6 BMI: 29.8 Code: 59898-3 Heart Rate 1: 60 bpm Height: 5'8" SpO2: 96% Weight: 196 lbs 03/31/2018 Blood Pressure 1: 128/76 Code: 8480-6 BMI: 29.8 Code: 28179-9 Heart Rate 1: 56 bpm Height: 5'8" SpO2: 98% Weight: 196 lbs 11/26/2017 Blood Pressure 1: 156/76 Code: 8480-6 BMI: 29.6 Code: 65430-1 Heart Rate 1: 57 bpm Height: 5'8" SpO2: 98% Weight: 195 lbs 10/31/2017 Blood Pressure 1: 136/74 Code: 8480-6 BMI: 29.5 Code: 19477-5 Heart Rate 1: 56 bpm Height: 5'8" SpO2: 95% Waist Measure (cm): 91 cm Weight: 194 lbs 10/07/2017 Blood Pressure 1: 136/72 Code: 8480-6 BMI: 30.3 Code: 66829-8 Heart Rate 1: 58 bpm Height: 5'8" SpO2: 96% Weight: 199 lbs 09/22/2017 Blood Pressure 1: 138/78 Code: 8480-6 BMI: 30.4 Code: 05987-1 Heart Rate 1: 60 bpm Height: 5'8" SpO2: 98% Temperature: 36.6 (C) / 97.9 (F) Weight: 200 lbs 05/08/2017 Blood Pressure 1: 128/80 Code: 8480-6 BMI: 30.0 Code: 69513-9 Heart Rate 1: 75 bpm Height: 5'8" SpO2: 98% Weight: 197 lbs 03/25/2017 Blood Pressure 1: 150/80 Code: 8480-6 BMI: 30.1 Code: 93734-8 Heart Rate 1: 53 bpm Height: 5'8" SpO2: 98% Weight: 198 lbs 01/21/2017 Blood Pressure 1: 156/88 Code: 8480-6 BMI: 29.8 Code: 55019-8 Heart Rate 1: 95 bpm Height: 5'8" SpO2: 98% Temperature: 36.9 (C) / 98.4 (F) Weight: 196 lbs 12/30/2016 Blood Pressure 1: 122/74 Code: 8480-6 BMI: 29.8 Code: 29641-9 Heart Rate 1: 60 bpm Height: 5'8" SpO2: 96% Temperature: 37.1 (C) / 98.8 (F) Weight: 196 lbs 12/26/2016 Blood Pressure 1: 142/74 Code: 8480-6 BMI: 29.8 Code: 77127-5 Heart Rate 1: 58 bpm Height: 5'8" SpO2: 96% Temperature: 36.7 (C) / 98.0 (F) Weight: 196 lbs 12/02/2016 Blood Pressure 1: 128/78 Code: 8480-6 BMI: 30.3 Code: 75468-2 Heart Rate 1: 49 bpm Height: 5'8" SpO2: 98% Temperature: 36.5 (C) / 97.7 (F) Weight: 199 lbs 11/21/2016 Blood Pressure 1: 130/68 Code: 8480-6 BMI: 30.3 Code: 62731-1 Heart Rate 1: 54 bpm Height: 5'8" SpO2: 98% Weight: 199 lbs 10/25/2016 Blood Pressure 1: 150/92 Code: 8480-6 BMI: 29.8 Code: 24204-5 Heart Rate 1: 54 bpm Height: 5'8" SpO2: 97% Waist Measure (cm): 97 cm Weight: 196 lbs 10/23/2016 Blood Pressure 1: 150/92 Code: 8480-6 BMI: 29.9 Code: 72645-5 Heart Rate 1: 54 bpm Height: 5'8" SpO2: 98% Weight: 196 lbs 8 oz 07/29/2016 Blood Pressure 1: 144/72 Code: 8480-6 BMI: 30.3 Code: 87210-3 Heart Rate 1: 54 bpm Height: 5'8" SpO2: 98% Weight: 199 lbs 06/24/2016 Blood Pressure 1: 132/78 Code: 8480-6 BMI: 29.5 Code: 84933-4 Heart Rate 1: 59 bpm Height: 5'8" SpO2: 94% Weight: 194 lbs 02/21/2016 Blood Pressure 1: 138/84 Code: 8480-6 BMI: 30.3 Code: 09374-3 Heart Rate 1: 64 bpm Height: 5'8" SpO2: 95% Weight: 199 lbs 10/18/2015 Blood Pressure 1: 154/84 Code: 8480-6 Blood Pressure 1: 138/72 Code: 8480-6 BMI: 30.4 Code: 64945-8 Heart Rate 1: 68 bpm Height: 5'8" SpO2: 97% Weight: 200 lbs 05/02/2015 Blood Pressure 1: 114/64 Code: 8480-6 BMI: 29.0 Code: 22585-3 Heart Rate 1: 62 bpm Height: 5'8" [...] bleeding[ICD10: K57.00] [facility] CPT-4: 80765 12/23/2018 ([id number]) [id number] EST. PATIENT, LEVEL III Diagnosis: Low back pain[ICD10: M54.5] Diagnosis: Muscle spasm of back[ICD10: M62.830] [facility] CPT-4: 32112 03/31/2018 ([id number]) [id number] EST. PATIENT, LEVEL III Diagnosis: Actinic keratosis[ICD10: L57.0] Diagnosis: Other hypertrophic disorders of the skin[ICD10: L91.8] [facility] CPT-4: 18209 11/26/2017 ([id number]) 03829 EST. PATIENT, LEVEL IV Diagnosis: Essential (primary) hypertension[ICD10: I10] Diagnosis: Mild cognitive impairment, so stated[ICD10: G31.84] Amanda Husain MD, [facility] CPT-4: 26886 10/07/2017 ([id number]) 47359 EST. PATIENT, LEVEL III Diagnosis: Pneumonia due to other streptococci[ICD10: J15.4] Diagnosis: Cough[ICD10: R05] Amanda Husain MD, [facility] CPT-4: 45804 09/22/2017 [id number] EST. PATIENT, LEVEL IV Diagnosis: Left lower quadrant pain[ICD10: R10.32] Diagnosis: Other fatigue[ICD10: R53.83] Gabrielle Husain MD, [facility] CPT-4: 73744 05/08/2017 ([id number]) 73503 EST. PATIENT, LEVEL III Diagnosis: Essential (primary) hypertension[ICD10: I10] Amanda Husain MD, [facility] CPT-4: 42778 03/25/2017 ([id number]) 70152 EST. PATIENT, LEVEL III Diagnosis: Cough[ICD10: R05] Diagnosis: Allergic rhinitis due to pollen[ICD10: J30.1] Leidy Husain MD, [facility] CPT-4: 17420 01/21/2017 [id number] EST. PATIENT, LEVEL III Diagnosis: Other allergic rhinitis[ICD10: J30.89] Diagnosis: Cough[ICD10: R05] Gabrielle Husain MD, [facility] CPT-4: 85899 12/30/2016 ([id number]) 91404 EST. PATIENT, LEVEL III Diagnosis: Cough[ICD10: R05] Diagnosis: Pneumonia, unspecified organism[ICD10: J18.9] Leidy Husain MD, [facility] CPT-4: 90904 12/26/2016 ([id number]) 33779 EST. PATIENT, LEVEL III Diagnosis: Pneumonia due to other streptococci[ICD10: J15.4] Diagnosis: Cough[ICD10: R05] Amanda Husain MD, [facility] CPT-4: 15174 12/02/2016 ([id number]) 85326 EST. PATIENT, LEVEL III Diagnosis: Essential (primary) hypertension[ICD10: I10] Amanda uHsain MD, [facility] CPT-4: 27356 11/21/2016 ([id number]) 91990 EST. PATIENT, LEVEL IV Diagnosis: Essential (primary) hypertension[ICD10: I10] Diagnosis: Mixed hyperlipidemia[ICD10: E78.2] Amanda Husain MD, [facility] CPT- 4: 46035 10/23/2016 [id number] EST. PATIENT, LEVEL IV Diagnosis: Other allergic rhinitis[ICD10: J30.89] Diagnosis: Cough[ICD10: R05] Gabrielle Husain MD [facility] CPT-4: 91749 07/29/2016 ([id number]) Miscellaneous no charge Diagnosis: Pneumonia, unspecified organism[ICD10: J18.9] Gabrielle Husain MD [facility] CPT-4: 32415 06/27/2016 ([id number]) 83320 EST. PATIENT, LEVEL IV Diagnosis: Essential (primary) hypertension[ICD10: I10] Diagnosis: Pneumonia, unspecified organism[ICD10: J18.9] Diagnosis: Cough[ICD10: R05] Diagnosis: Mixed hyperlipidemia[ICD10: E78.2] Amanda Husain MD, [facility] CPT- 4: 11901 06/24/2016 ([id number]) 53738 EST. PATIENT, LEVEL IV Diagnosis: Mixed hyperlipidemia[ICD10: E78.2] Diagnosis: Essential (primary) hypertension[ICD10: I10] Diagnosis: Gastro-esophageal reflux disease without esophagitis[ICD10: K21.9] Amanda Husain MD, [facility] CPT-4: 88355 02/21/2016 ([id number]) 51747 EST. 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 Call if not improved after thorough healing - apply neosporin to skin lesions. 12/31/2018 Appointment: Amanda Husain WPtel: [phone] [facility] (30 min) Complex 12/31/2018 Patient Education: Patient Medication Summary Completed 12/31/2018 Visit Plan: Diverticulitis - rx for antibiotic sent to pt's pharmacy - pt advised to avoid seeds, nuts, popcorn, or any other food which has been proven to upset the pt's stomach. 12/23/2018 Appointment: Gabrielle Corona WPtel: [phone] [facility] (15 min) Moderate 12/23/2018 Patient Education: Patient Medication Summary Completed 12/23/2018 Appointment: Gabrielle Corona WPtel: [facility]0 [facility] (30 min) Complex 12/16/2018 Appointment: [...] not improve. 03/31/2018 Appointment: Leidy Angulo WPtel: [facility]3 [facility] [place] [address] (15 min) Moderate 03/31/2018 Patient Education: Patient Medication Summary Completed 03/31/2018 Visit Plan: Wound Instructions - Pt was instructed to keep the wound clean, wash with antibacterial soap, use triple antibiotic ointment, call if redness, pustular drainage, or any other acute concerns. 11/26/2017 Appointment: Amanda Husain WPtel: [facility]0 [facility] Surgical Procedure 11/26/2017 Patient Education: Patient [...] care surrogate. 10/31/2017 Appointment: Leidy Angulo WPtel: [facility]2 [phone] [facility] - Annual Wellness Visit 10/31/2017 [...] loss. 10/07/2017 [facility]ment: [phone] ([facility] min) Complex 10/07/2017 Patient Education: Patient Medication Summary Completed 10/07/2017 Patient Education: Obesity Completed 10/07/2017 Patient Education: Hypertension Completed 10/07/2017 Visit Plan: Pneumonia - Pt has been diagnosed with pneumonia by physical exam. Antibiotics have been ordered. The pt is aware of the diagnosis and the need for acute treatment of this illness. 09/22/2017 Appointment: Amanda Husain WPtel: [phone] [facility] (15 min) Moderate 09/22/2017 Patient Education: [...] or concerns. 05/08/2017 Appointment: Gabrielle Corona WPtel: [phone] [facility] (30 min) Complex 05/08/2017 Patient [...] ramipril to 10mg daily. 03/25/2017 Appointment: Amanda uHsain WPtel: [phone] [facility] (15 min) Moderate 03/25/2017 Patient Education: Patient Medication Summary Completed 03/25/2017 Appointment: Leidy Angulo WPtel: [facility]7 [address] (15 min) Moderate 01/31/2017 Visit Plan: URI/Allergies - Pt advised to increase fluids, vitamin C. Discussed natural and expected course of this diagnosis and need to alert me if symptoms do not follow expected course, or if any worse. RX sent to patient's pharmacy. 01/21/2017 Appointment: Leidy Angulo WPtel: [phone] [phone] (15 min) Moderate 01/21/2017 Patient [...] the medication. 12/30/2016 Appointment: Leidy Angulo WPtel: [facility]8 [place] [phone] [place] (15 min) Moderate 12/30/2016 Appointment: Gabrielle Corona WPtel: [facility] [place] (30 min) Complex 12/30/2016 Patient [...] the levaquin. 12/26/2016 Appointment: Leidy Angulo WPtel: [phone] [phone] (15 min) Moderate 12/26/2016 Patient [...] home. 11/21/2016 [facility]: [phone] ([facility] min) Moderate 11/21/2016 Patient Education: [...] care surrogate. 10/25/2016 [facility]ment[phone] [facility] - Annual Wellness Visit 10/25/2016 [...] to medications. 10/23/2016 Appointment: Amanda Husain WPtel: [facility] (15 min) Moderate 10/23/2016 Patient Education: [...] any concerns. 07/29/2016 Appointment: Gabrielle Corona WPtel: [facility]5 [facility] ([facility] Moderate 07/29/2016 Patient Education: Patient [...] to medications. 06/24/2016 Appointment: Amanda Husain WPtel: [address] [place], [place] [address] (15 min) Moderate 06/24/2016 Patient Education: Patient [...] improving. 02/21/2016 Appointment: [facility]el[phone] (15 min) Moderate 02/21/2016 Patient Education: [...] Care Plan: COMPLETE CBC AUTOMATED LOINC : 77207-6 Ordered 05/02/2015 Care Plan: ASSAY OF TROPONIN QUANT Ordered 05/02/2015 Care Plan: ASSAY OF CK (CPK) Ordered 05/02/2015 Instructions Comment Increase the ramipril to 10mg daily. . [...] - apply neosporin to skin lesions. . Wound Instructions - Pt was instructed to keep the wound clean, wash with antibacterial soap, use triple antibiotic ointment, call if redness, pustular drainage, or any other acute concerns. . 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 change metoprolol to 25mg twice daily. . [...] her DOPA paperwork for health care surrogate. [employer] or [employer] [facility] - take three times daily x 7 [...] well. Come back Friday to recheck PT/INR zyrtec - daily for allergies If in [...] and notify clinic with any concerns. . Pneumonia - Pt has been diagnosed with pneumonia by physical exam. Antibiotics have been ordered. The pt is aware of the diagnosis and the need for acute treatment of this illness. check INR today and - come by [...]
--- OUTSIDE RECORDS SUMMARY | 2019-05-19 11:27 | XMS REPORT | CCD ---
Author Author Amanda Celestin MD, [facility] Address [address] [place] [address] Phone Care Team Providers Care Measurement Technician Name Role Phone PP Unavailable CCM Unavailable Summary Purpose Interface Exchange Insurance Providers Payer name Policy type / Coverage type Covered green party ID Effective Begin Date Effective End Date WPS Medicare Part B [id number] Unknown [employer] [id number] Unknown Family history Brother Diagnosis Age At [...] Unknown Retired 05/02/[address]: 8826463 Former smoker Quit in 1966 05/02/2015 Number of years using tobacco Unknown 5 - 10 05/02/2015 Allergies, Adverse Reactions, Alerts Substance Reaction Codes Entered Date Inactivated Date Status * NO KNOWN FOOD ALLERGIES Unknown 05/02/2015 No Inactive Date Active NO KNOWN DRUG ALLERGIES Unknown 05/02/2015 No Inactive Date Active Past Medical History Illness Codes Condition Status Onset Date Resolved Date Diverticulitis of small intestine with perforation and [...] 9: 724.8 ICD-10: M62.830 Active 03/31/2018 Unknown Actinic keratosis ICD-9: 702.0 ICD-10: L57.0 Active 11/26/2017 Unknown Other [...] Problems Condition Codes Effective Dates Condition Status Diverticulitis of small intestine with perforation and [...] ICD- 9: 724.8 ICD-10: M62.830 03/31/2018 Active Actinic keratosis ICD-9: 702.0 ICD-10: L57.0 11/26/2017 Active Other hypertrophic [...] Fill Instructions metronidazole 500 mg tablet RxNorm: 064449 1 Tablet(s) PO TID 12/23/2018 01/01/2019 Active omeprazole 20 mg capsule,delayed release RxNorm: 742066 TAKE 1 CAPSULE BY MOUTH ONCE DAILY 12/07/2018 No Stop Date Active metoprolol tartrate 25 mg tablet RxNorm: 083233 Tablet(s) TAKE 1 TABLET BY MOUTH TWICE DAILY 10/16/2018 No Stop Date Active metoprolol tartrate 25 mg tablet RxNorm: 623836 TAKE 1 TABLET BY MOUTH TWICE DAILY 07/13/2018 10/15/2018 Inactive Trilipix 135 mg capsule,delayed release RxNorm: 115918 1 Capsule(s) PO daily 06/17/2018 10/14/2018 Inactive ramipril 10 mg capsule RxNorm: 959330 TAKE ONE CAPSULE BY MOUTH ONCE DAILY 06/15/2018 No Stop Date Active omeprazole 20 mg capsule,delayed release RxNorm: 951351 Capsule(s) TAKE ONE CAPSULE BY MOUTH ONCE DAILY 06/03/2018 No Stop Date Active omeprazole 20 mg capsule,delayed release RxNorm: 572813 Capsule(s) TAKE ONE CAPSULE BY MOUTH ONCE DAILY 06/02/2018 06/02/2018 Inactive metoprolol tartrate 25 mg tablet RxNorm: 255171 TAKE ONE TABLET BY MOUTH TWICE DAILY 02/16/2018 07/12/2018 Inactive omeprazole 20 mg capsule,delayed release RxNorm: 667995 TAKE ONE CAPSULE BY MOUTH ONCE DAILY 01/05/2018 06/01/2018 Inactive metoprolol tartrate 25 mg tablet RxNorm: 498853 TAKE ONE TABLET BY MOUTH TWICE DAILY 10/27/2017 02/15/2018 Inactive azithromycin 250 mg tablet RxNorm: 597332 1 Tablet(s) PO UD 2 tabs on day #1, then 1 pill daily x 4 days 09/22/2017 11/25/2017 Inactive omeprazole 20 mg capsule,delayed release RxNorm: 273664 TAKE ONE CAPSULE BY MOUTH ONCE DAILY 06/16/2017 12/12/2017 Inactive metronidazole 500 mg tablet RxNorm: 134819 1 Tablet(s) PO TID 05/08/2017 05/14/2017 Inactive ramipril 10 mg capsule RxNorm: 487513 1 Capsule(s) PO daily 03/25/2017 03/19/2018 Inactive Kenalog 40 mg/mL suspension for injection RxNorm: 8251578 Milliliter(s) Inj 01/21/2017 01/21/2017 Inactive ceftriaxone 500 mg solution for injection RxNorm: 1736576 Inj 12/30/2016 12/30/2016 Inactive Phenergan with Codeine Syrup RxNorm: 5-10 Milliliter(s) PO Q6 PRN 12/26/2016 No Stop Date Active Levaquin 500 mg tablet RxNorm: 085313 1 Tablet(s) PO daily 12/26/2016 01/01/2017 Inactive Tessalon Perles 100 mg capsule RxNorm: 823269 1 Capsule(s) PO TID as needed 12/26/2016 01/04/2017 Inactive prednisone 20 mg tablet RxNorm: 729396 1 Tablet(s) PO BID 12/26/2016 12/30/2016 Inactive omeprazole 20 mg capsule,delayed release RxNorm: 993614 TAKE ONE CAPSULE BY MOUTH ONCE DAILY 12/16/2016 06/13/2017 Inactive cefdinir 300 mg capsule RxNorm: 525063 1 Capsule(s) PO BID 12/02/2016 12/08/2016 Inactive azithromycin 250 mg tablet RxNorm: 333320 Tablet(s) 2 tabs on day #1, then one tab PO daily x 4 more days 12/02/2016 12/25/2016 Inactive metoprolol tartrate 25 mg tablet RxNorm: 252868 1 Tablet(s) PO BID 10/23/2016 10/17/2017 Inactive metoprolol tartrate 25 mg tablet RxNorm: 599057 1 Tablet(s) PO BID 10/23/2016 10/22/2016 Inactive ceftriaxone 500 mg solution for injection RxNorm: 7151807 Inj 06/24/2016 06/24/2016 Inactive cefdinir 300 mg capsule RxNorm: 886837 1 Capsule(s) PO BID 06/24/2016 06/30/2016 Inactive omeprazole 20 mg capsule,delayed release RxNorm: 416657 TAKE ONE CAPSULE BY MOUTH DAILY 06/07/2016 12/03/2016 Inactive omeprazole 20 mg capsule,delayed release RxNorm: 878932 TAKE ONE CAPSULE BY MOUTH DAILY 01/29/2016 05/27/2016 Inactive metoprolol tartrate 50 mg tablet RxNorm: 170459 Tablet(s) TAKE ONE TABLET BY MOUTH DAILY 10/11/2015 10/10/2015 Inactive metoprolol tartrate 50 mg tablet RxNorm: 490171 TAKE ONE TABLET BY MOUTH DAILY 10/11/2015 10/22/2016 Inactive omeprazole 20 mg capsule,delayed release RxNorm: 014191 TAKE ONE CAPSULE BY MOUTH DAILY 08/28/2015 01/24/2016 Inactive metoprolol tartrate 50 mg tablet RxNorm: 333603 TAKE ONE TABLET BY MOUTH DAILY 08/11/2015 10/09/2015 Inactive metoprolol tartrate 50 mg tablet RxNorm: 547028 1 Tablet(s) PO daily 06/14/2015 08/10/2015 Inactive omeprazole 20 mg capsule,delayed release RxNorm: 246455 1 Capsule(s) PO daily 05/29/2015 08/26/2015 Inactive omeprazole 20 mg capsule,delayed release RxNorm: 447076 1 Capsule(s) PO daily 05/29/2015 05/28/2015 Inactive metronidazole 500 mg tablet RxNorm: 764459 1 Tablet(s) PO TID 05/02/2015 05/08/2015 Inactive finasteride 5 mg tablet RxNorm: 067761 1 Tablet(s) PO daily No Start Date Active warfarin 5 mg tablet RxNorm: 513959 1 Tablet(s) PO daily No Start Date Active Aspirin Childrens 81 mg chewable tablet RxNorm: 479796 1 Tablet(s) PO daily No Start Date Active amiodarone 200 mg tablet RxNorm: 549638 1 Tablet(s) PO daily No Start Date Active vitamin E (dl, acetate) 1,000 unit capsule RxNorm: 363354 1 Capsule(s) PO daily No Start Date Active atorvastatin 80 mg tablet RxNorm: 467190 1 Tablet(s) PO daily No Start Date Active Fish Oil 120 mg-180 mg capsule RxNorm: 775710 1 Capsule(s) PO BID No Start Date 10/30/2017 Inactive metoprolol tartrate 50 mg tablet RxNorm: 336310 1 Tablet(s) PO daily No Start Date 06/13/2015 Inactive Zetia 10 mg tablet RxNorm: 116608 1 Tablet(s) PO daily No Start Date 10/17/2015 Inactive ramipril 5 mg capsule RxNorm: 735925 1 Capsule(s) PO daily No Start Date 03/24/2017 Inactive Tessalon Perles 100 mg capsule RxNorm: 636271 1 Capsule(s) PO TID as needed No Start Date 12/25/2016 Inactive omeprazole 20 mg capsule,delayed release RxNorm: 431967 1 Capsule(s) PO daily No Start Date 05/28/2015 Inactive Trilipix 135 mg capsule,delayed release RxNorm: 660656 1 Capsule(s) PO daily No Start Date 06/16/2018 Inactive Centrum Silver tablet RxNorm: 1 Tablet(s) PO daily No Start Date 10/30/2017 Inactive Medication Administered Medication Codes Instructions Start Date Status Kenalog 40 mg/mL suspension for injection RxNorm: 5207005 Milliliter 01/21/2017 No longer Active ceftriaxone 500 mg solution for injection RxNorm: 9800282 12/30/2016 No longer Active ceftriaxone 500 mg solution for injection RxNorm: 0579060 06/24/2016 No longer Active Immunizations Vaccine Codes Date Status Influenza CVX: 141 09/11/2015 completed Pneumococcal (Adult) CVX: 33 05/02/2014 completed Assessments Condition Codes Effective Dates Diverticulitis of small intestine with perforation and [...] For Visit Effective Dates Notes abdominal pain 12/23/2018 Annual Medicare Wellness Exam [...] Code Item Item Code Result Date Pt Tfz0734 PT 17.6 seconds 12/25/2018 Pt Tkg1445 INR 1.5 12/25/2018 Pt Ncn1415 Low Intensity - 1.5-2.0 12/25/2018 Pt Obu8353 Mod intensity - 2.0-3.0 12/25/2018 Pt Dbc7317 Hi intensity - 3.0-4.0 12/25/2018 Cbc With [...] 30.0 pg 12/10/2018 Cbc With Differential Ord2 [place]% 10.5 % 12/10/2018 Cbc With Differential Ord2 [...] 2.09 K/ul 12/10/2018 Cbc With Differential Ord2 [place] ABS# 0.8 K/ul 12/10/2018 Cbc With Differential Ord2 Eos ABS# 0.4 K/ul 12/10/2018 Cbc With Differential Ord2 Baso ABS# 0.0 K/ul 12/10/2018 Uric Acid Ord77 Uric A 4.6 mg/dL 12/10/2018 Random Urine Protein/Creatinine Ratio Kxy2518 U Prot 9.0 mg/dl 12/10/2018 Random Urine Protein/Creatinine Ratio Zhn7316 U CREAT 126.0 mg/dL 12/10/2018 Random Urine Protein/Creatinine Ratio Zyu9340 R MTP/Creat Ratio 0.07 12/10/2018 Ferritin Ord22 FERRITIN 47.9 ng/mL 12/10/2018 Renal Peg601 NA 142 mEq/L 12/10/2018 Renal Zat979 K 4.3 mEq/L 12/10/2018 Renal Bfv575 CL 106 mEq/L 12/10/2018 Renal Dhv691 CO2 30.0 mEq/L 12/10/2018 Renal Jit184 ANION GAP 10 12/10/2018 Renal Bov241 Osmo 286 mOsmo 12/10/2018 Renal Hqu068 GLUCOSE 105 mg/dL 12/10/2018 Renal Cyl205 BUN 20 mg/dL 12/10/2018 Renal Vyd627 Creat 1.4 mg/dL 12/10/2018 Renal Nsf199 eGFR 52 ml/min/1.73m2 12/10/2018 Renal Web571 B/C Ratio 14.1 Ratio 12/10/2018 Renal Hdg902 CALCIUM 9.7 mg/dL 12/10/2018 Renal Fqb999 PHOS 3.3 mg/dL 12/10/2018 Renal Zdb269 ALBUMIN 4.0 g/dL 12/10/2018 Urinalysis Ord28 U-Color [...] 17.8 % 12/10/2018 Vitamin D 25 Oh Gtd0195 VITAMIN D, 25 HYDROXY 27.29 ng/mL 12/10/2018 Pt Uab8983 PT 23.1 seconds 11/05/2018 Pt Nxb1843 INR 2.1 11/05/2018 Pt Vac5735 Low Intensity - 1.5-2.0 11/05/2018 Pt Urn6415 Mod intensity - 2.0-3.0 11/05/2018 Pt Cfd6000 Hi intensity - 3.0-4.0 11/05/2018 Pt Ihx2346 PT 29.8 seconds 08/17/2018 Pt Cwr0463 INR 2.8 08/17/2018 Pt Roz9310 Low Intensity - 1.5-2.0 08/17/2018 Pt Xjf1570 Mod intensity - 2.0-3.0 08/17/2018 Pt Out2287 Hi intensity - 3.0-4.0 08/17/2018 Pt Lto7458 PT 27.7 seconds 05/18/2018 Pt Rkn1350 INR 2.6 05/18/2018 Pt Ahd6595 Low Intensity - 1.5-2.0 05/18/2018 Pt Pcy3659 Mod intensity - 2.0-3.0 05/18/2018 Pt Dgf1049 Hi intensity - 3.0-4.0 05/18/2018 Uric Acid Ord77 Uric A 3.9 mg/dL 05/18/2018 Cbc With Differential Ord2 WBC 6.21 K/ul 05/18/2018 Cbc With Differential Ord2 RBC 4.66 M/ul 05/18/2018 Cbc With Differential Ord2 HGB 14.4 g/dl 05/18/2018 Cbc With Differential Ord2 HCT 42.7 % 05/18/2018 Cbc With Differential Ord2 Neut% 48.0 % 05/18/2018 Cbc With Differential Ord2 Lymph% 31.2 % 05/18/2018 Cbc With Differential Ord2 MCV 91.6 fl 05/18/2018 Cbc With Differential Ord2 MCH 30.9 pg 05/18/2018 Cbc With Differential Ord2 [place]% 13.8 % 05/18/2018 Cbc With Differential Ord2 MCHC 33.7 pg 05/18/2018 Cbc With Differential Ord2 Eos% 6.8 % 05/18/2018 Cbc With Differential Ord2 Baso% 0.2 % 05/18/2018 Cbc With Differential Ord2 PLT 227 K/ul 05/18/2018 Cbc With Differential Ord2 Neut ABS# 2.98 K/ul 05/18/2018 Cbc With Differential Ord2 RDW 14.1 % 05/18/2018 Cbc With Differential Ord2 Lymph ABS# 1.94 K/ul 05/18/2018 Cbc With Differential Ord2 [place] ABS# 0.9 K/ul 05/18/2018 Cbc With Differential Ord2 Eos ABS# 0.4 K/ul 05/18/2018 Cbc With Differential Ord2 Baso ABS# 0.0 K/ul 05/18/2018 Random Urine Protein/Creatinine Ratio Oyn3750 U Prot 7.0 mg/dl 05/18/2018 Random Urine Protein/Creatinine Ratio Rnw7692 U CREAT 75.0 mg/dL 05/18/2018 Random Urine Protein/Creatinine Ratio Tbs7123 R MTP/Creat Ratio 0.09 05/18/2018 Vitamin D 25 Oh Zes5135 VITAMIN D, 25 HYDROXY 27.40 ng/mL 05/18/2018 Tibc Ord40 Iron 68 ug/dl 05/18/2018 Tibc Ord40 UIBC 308 ug/dL 05/18/2018 Tibc Ord40 TIBC 376 ug/dL 05/18/2018 Tibc Ord40 Fe-%Sat 18.1 % 05/18/2018 Parathyroid Hormone Ymk624 PTH 36.20 pg/ml 05/18/2018 Urinalysis Ord28 U-Color [...] hours from collection if refrigerated) 05/18/2018 Renal Zrw539 NA 141 mEq/L 05/18/2018 Renal Tuv541 K 4.0 mEq/L 05/18/2018 Renal Fzw570 CL 107 mEq/L 05/18/2018 Renal Vnh189 CO2 27.0 mEq/L 05/18/2018 Renal Gfe106 ANION GAP 11 05/18/2018 Renal Lih419 Osmo 282 mOsmo 05/18/2018 Renal Uxv571 GLUCOSE 83 mg/dL 05/18/2018 Renal Iio412 BUN 18 mg/dL 05/18/2018 Renal Ycd147 Creat 1.4 mg/dL 05/18/2018 Renal Xrt527 eGFR 55 ml/min/1.73m2 05/18/2018 Renal Vkq090 B/C Ratio 13.3 Ratio 05/18/2018 Renal Fdq286 CALCIUM 9.0 mg/dL 05/18/2018 Renal Djg820 PHOS 2.9 mg/dL 05/18/2018 Renal Xei577 ALBUMIN 4.0 g/dL 05/18/2018 Ferritin Ord22 FERRITIN [...] Metabolic Ord15 CALCIUM 9.2 mg/dL 03/23/2018 Pt Iff7439 PT 29.0 seconds 03/13/2018 Pt Vdj5556 INR 2.7 03/13/2018 Pt Zvt1335 Low Intensity - 1.5-2.0 03/13/2018 Pt Edf2387 Mod intensity - 2.0-3.0 03/13/2018 Pt Btk9437 Hi intensity - 3.0-4.0 03/13/2018 Pt Rwv6188 PT 31.6 seconds 03/04/2018 Pt Lpz4656 INR 3.0 03/04/2018 Pt Rzh3064 Low Intensity - 1.5-2.0 03/04/2018 Pt Yfx6279 Mod intensity - 2.0-3.0 03/04/2018 Pt Cwc5654 Hi intensity - 3.0-4.0 03/04/2018 Pt Qfp1323 PT 33.3 seconds 01/29/2018 Pt Mar6507 INR 3.2 01/29/2018 Pt Ard4888 Low Intensity - 1.5-2.0 01/29/2018 Pt Tga0769 Mod intensity - 2.0-3.0 01/29/2018 Pt Dup3490 Hi intensity - 3.0-4.0 01/29/2018 Pt Xcs5281 PT 26.1 seconds 01/21/2018 Pt Ivx9937 INR 2.4 01/21/2018 Pt Nfs2706 Low Intensity - 1.5-2.0 01/21/2018 Pt Kcv9612 Mod intensity - 2.0-3.0 01/21/2018 Pt Wtp9899 Hi intensity - 3.0-4.0 01/21/2018 Pt Vuj3338 PT 35.7 seconds 01/09/2018 Pt Bvo3653 INR 3.5 01/09/2018 Pt Fed2188 Low Intensity - 1.5-2.0 01/09/2018 Pt Xdz3185 Mod intensity - 2.0-3.0 01/09/2018 Pt Kfw7295 Hi intensity - 3.0-4.0 01/09/2018 Pt Zfb3993 PT 23.8 seconds 12/04/2017 Pt Has8745 INR 2.1 12/04/2017 Pt Kyf0029 Low Intensity - 1.5-2.0 12/04/2017 Pt Tnd5347 Mod intensity - 2.0-3.0 12/04/2017 Pt Yxw5132 Hi intensity - 3.0-4.0 12/04/2017 Pt Zpx1281 PT 32.3 seconds 11/12/2017 Pt Cyd4287 INR 3.1 11/12/2017 Pt Brz3866 Low Intensity - 1.5-2.0 11/12/2017 Pt Vri7831 Mod intensity - 2.0-3.0 11/12/2017 Pt Nmm9211 Hi intensity - 3.0-4.0 11/12/2017 Urinalysis Ord28 [...] hours from collection if refrigerated) 10/20/2017 Pt Ora2199 PT 16.6 seconds 10/20/2017 Pt Mwz0284 INR 1.4 10/20/2017 Pt Yxr0057 Low Intensity - 1.5-2.0 10/20/2017 Pt Bsw4049 Mod intensity - 2.0-3.0 10/20/2017 Pt Ecp2683 Hi intensity - 3.0-4.0 10/20/2017 Renal Osc175 NA 142 mEq/L 10/20/2017 Renal Ppz012 K 4.5 mEq/L 10/20/2017 Renal Fob179 CL 107 mEq/L 10/20/2017 Renal Xyy287 CO2 28.0 mEq/L 10/20/2017 Renal Bvv680 ANION GAP 12 10/20/2017 Renal Lpe266 Osmo 288 mOsmo 10/20/2017 Renal Fru678 GLUCOSE 96 mg/dL 10/20/2017 Renal Whg919 BUN 27 mg/dL 10/20/2017 Renal Vsu659 Creat 1.6 mg/dL 10/20/2017 Renal Rlu401 eGFR 46 ml/min/1.73m2 10/20/2017 Renal Ryo774 B/C Ratio 17.2 Ratio 10/20/2017 Renal Gvw287 CALCIUM 9.4 mg/dL 10/20/2017 Renal Hvw889 PHOS 3.0 mg/dL 10/20/2017 Renal Ckf447 ALBUMIN 4.2 g/dL 10/20/2017 Pt Gck9079 PT 31.2 seconds 10/17/2017 Pt Ece1947 INR 3.0 10/17/2017 Pt Goc8628 Low Intensity - 1.5-2.0 10/17/2017 Pt Pyi2090 Mod intensity - 2.0-3.0 10/17/2017 Pt Pct1643 Hi intensity - 3.0-4.0 10/17/2017 Comp Metabolic Iah454 NA 139 mEq/L 05/08/2017 Comp Metabolic Stu760 K 4.1 mEq/L 05/08/2017 Comp Metabolic Tbz725 CL 103 mEq/L 05/08/2017 Comp Metabolic Pyr960 CO2 28.0 mEq/L 05/08/2017 Comp Metabolic Uhw045 ANION GAP 12 05/08/2017 Comp Metabolic Kre031 GLUCOSE 75 mg/dL 05/08/2017 Comp Metabolic Ekc784 Creat 1.3 mg/dL 05/08/2017 Comp Metabolic Ioz054 eGFR 55 ml/min/1.73m2 05/08/2017 Comp Metabolic Fpi230 BUN 20 mg/dL 05/08/2017 Comp Metabolic Xux934 B/C Ratio 14.9 Ratio 05/08/2017 Comp Metabolic Nfg948 CALCIUM 8.8 mg/dL 05/08/2017 Comp Metabolic Lmu688 ALK PHOS 51 U/L 05/08/2017 Comp Metabolic Dei936 AST(SGOT) 30 U/L 05/08/2017 Comp Metabolic Mqr389 ALT(SGPT) 31 U/L 05/08/2017 Comp Metabolic Hoj441 BILI T 0.9 mg/dL 05/08/2017 Comp Metabolic Irp019 ALBUMIN 4.0 g/dL 05/08/2017 Comp Metabolic Kuo104 TPRO 6.5 g/dL 05/08/2017 Comp Metabolic Wxu811 GLOB 2.6 g/dL 05/08/2017 Comp Metabolic Scs716 A/G Ratio 1.5 Ratio 05/08/2017 Comp Metabolic Lnl521 Osmo 279 mOsmo 05/08/2017 Cbc With Differential [...] 31.5 pg 05/08/2017 Cbc With Differential Ord2 [place]% 13.5 % 05/08/2017 Cbc With Differential Ord2 Eos% 2.6 % 05/08/2017 Cbc With Differential Ord2 MCHC 33.6 pg 05/08/2017 Cbc With Differential Ord2 Baso% 0.2 % 05/08/2017 Cbc With Differential Ord2 PLT 218 K/ul 05/08/2017 Cbc With Differential Ord2 Neut ABS# 5.78 K/ul 05/08/2017 Cbc With Differential Ord2 RDW 13.7 % 05/08/2017 Cbc With Differential Ord2 Lymph ABS# 1.29 K/ul 05/08/2017 Cbc With Differential Ord2 [place] ABS# 1.1 K/ul 05/08/2017 Cbc With Differential Ord2 Eos ABS# 0.2 K/ul 05/08/2017 Cbc With Differential Ord2 Baso ABS# 0.0 K/ul 05/08/2017 Pt Kwm9394 PT 22.7 seconds 11/22/2016 Pt Pvc6511 INR 2.1 11/22/2016 Pt Wlu6541 Low Intensity - 1.5-2.0 11/22/2016 Pt Kei7911 Mod intensity - 2.0-3.0 11/22/2016 Pt Qsl4359 Hi intensity - 3.0-4.0 11/22/2016 Pt Afk5073 PT 24.4 seconds 10/25/2016 Pt Xrg3056 INR 2.3 10/25/2016 Pt Urb4027 Low Intensity - 1.5-2.0 10/25/2016 Pt Egn4164 Mod intensity - 2.0-3.0 10/25/2016 Pt Qsn2237 Hi intensity - 3.0-4.0 10/25/2016 Pt Bqp9919 PT 23.5 seconds 09/04/2016 Pt Yku2253 INR 2.2 09/04/2016 Pt Pfb3093 Low Intensity - 1.5-2.0 09/04/2016 Pt Kif4497 Mod intensity - 2.0-3.0 09/04/2016 Pt Cfg0868 Hi intensity - 3.0-4.0 09/04/2016 Pt Hwj0502 PT 26.1 seconds 07/09/2016 Pt Lld4254 INR 2.6 07/09/2016 Pt Rut1404 Low Intensity - 1.5-2.0 07/09/2016 Pt Gug2374 Mod intensity - 2.0-3.0 07/09/2016 Pt Oaw1104 Hi intensity - 3.0-4.0 07/09/2016 Pt Lqi8462 PT 19.4 seconds 06/24/2016 Pt Yov6428 INR 1.7 06/24/2016 Pt Amf5509 Low Intensity - 1.5-2.0 06/24/2016 Pt Prz7096 Mod intensity - 2.0-3.0 06/24/2016 Pt Gcb5796 Hi intensity - 3.0-4.0 06/24/2016 Pt Veu3239 PT 28.9 seconds 04/26/2016 Pt Ttw5447 INR 2.9 04/26/2016 Pt Nzb6465 Low Intensity - 1.5-2.0 04/26/2016 Pt Ivd7269 Mod intensity - 2.0-3.0 04/26/2016 Pt Rba6065 Hi intensity - 3.0-4.0 04/26/2016 Tsh Ord6 hTSH II 1.21 uIU/mL 02/29/2016 Pt Ybu1898 PT 21.8 seconds 02/29/2016 Pt Gtg7630 INR 2.0 02/29/2016 Pt Vrx2098 Low Intensity - 1.5-2.0 02/29/2016 Pt Jas1285 Mod intensity - 2.0-3.0 02/29/2016 Pt Yst1175 Hi intensity - 3.0-4.0 02/29/2016 Lipid Ord30 [...] Ord2 RDW 16.2 % 06/30/2015 Comp Metabolic Awa628 NA 138 mEq/L 06/30/2015 Comp Metabolic Jze260 K 4.8 mEq/L 06/30/2015 Comp Metabolic Jzh507 CL 107 mEq/L 06/30/2015 Comp Metabolic Top395 CO2 27.0 mEq/L 06/30/2015 Comp Metabolic Hyr125 ANION GAP 9 06/30/2015 Comp Metabolic Ofe401 GLUCOSE 98 mg/dL 06/30/2015 Comp Metabolic Nlp419 Creat 1.8 mg/dL 06/30/2015 Comp Metabolic Yta915 eGFR 40 ml/min/1.73m2 06/30/2015 Comp Metabolic Znt691 BUN 20 mg/dL 06/30/2015 Comp Metabolic Adw757 B/C Ratio 11.1 Ratio 06/30/2015 Comp Metabolic Shc181 CALCIUM 9.1 mg/dL 06/30/2015 Comp Metabolic Txj145 ALK PHOS 39 U/L 06/30/2015 Comp Metabolic Vxi725 AST(SGOT) 21 U/L 06/30/2015 Comp Metabolic Bsu641 ALT(SGPT) 23 U/L 06/30/2015 Comp Metabolic Dkx085 BILI T 0.5 mg/dL 06/30/2015 Comp Metabolic Gai965 ALBUMIN 4.0 g/dL 06/30/2015 Comp Metabolic Kgr444 TPRO 6.6 g/dL 06/30/2015 Comp Metabolic Yfp951 GLOB 2.6 g/dL 06/30/2015 Comp Metabolic Cji048 A/G Ratio 1.5 Ratio 06/30/2015 Comp Metabolic Vvi355 Osmo 278 mOsmo 06/30/2015 Pt Smq4389 PT 26.1 seconds 06/30/2015 Pt Uas4654 INR 2.5 06/30/2015 Pt Gja2636 Low Intensity - 1.5-2.0 06/30/2015 Pt Yre7457 Mod intensity - 2.0-3.0 06/30/2015 Pt Smp9723 Hi intensity - 3.0-4.0 06/30/2015 Review of Systems System Result Effective Dates Constitutional recent illness 12/23/2018 Constitutional No chills [...] Procedures Procedure Codes Date OCCULT BLOOD FECES CPT- 4: 31517 04/08/2018 PPPS, SUBSEQ VISIT CPT- 4: G0439 04/03/2018 PPPS, SUBSEQ VISIT CPT- 4: G0439 10/31/2017 PRESCRIP TRANSMIT VIA ERX SY CPT-4: G8553 09/22/2017 THER/PROPH/DIAG INJ SC/IM CPT-4: 38056 01/21/2017 TRIAMCINOLONE ACET INJ NOS CPT-4: J3301 01/21/2017 THER/PROPH/DIAG INJ SC/IM CPT-4: 45881 12/30/2016 ROCEPHIN, PER 250 MG CPT- 4: J0696 12/30/2016 PPPS, SUBSEQ VISIT CPT- 4: G0439 10/25/2016 ROCEPHIN, PER 250 MG CPT- 4: J0696 06/24/2016 THER/PROPH/DIAG INJ SC/IM CPT-4: 74362 06/24/2016 Vital Signs Date Vital 12/23/2018 Blood Pressure 1: 140/68 Code: 8480-6 BMI: 29.3 Code: 19134-2 Heart Rate 1: 70 bpm Height: 5'8" SpO2: 97% Weight: 193 lbs 04/03/2018 Blood Pressure 1: 128/72 Code: 8480-6 BMI: 29.8 Code: 52032-6 Heart Rate 1: 60 bpm Height: 5'8" SpO2: 96% Weight: 196 lbs 03/31/2018 Blood Pressure 1: 128/76 Code: 8480-6 BMI: 29.8 Code: 76380-3 Heart Rate 1: 56 bpm Height: 5'8" SpO2: 98% Weight: 196 lbs 11/26/2017 Blood Pressure 1: 156/76 Code: 8480-6 BMI: 29.6 Code: 32490-3 Heart Rate 1: 57 bpm Height: 5'8" SpO2: 98% Weight: 195 lbs 10/31/2017 Blood Pressure 1: 136/74 Code: 8480-6 BMI: 29.5 Code: 94530-5 Heart Rate 1: 56 bpm Height: 5'8" SpO2: 95% Waist Measure (cm): 91 cm Weight: 194 lbs 10/07/2017 Blood Pressure 1: 136/72 Code: 8480-6 BMI: 30.3 Code: 45357-0 Heart Rate 1: 58 bpm Height: 5'8" SpO2: 96% Weight: 199 lbs 09/22/2017 Blood Pressure 1: 138/78 Code: 8480-6 BMI: 30.4 Code: 15561-2 Heart Rate 1: 60 bpm Height: 5'8" SpO2: 98% Temperature: 36.6 (C) / 97.9 (F) Weight: 200 lbs 05/08/2017 Blood Pressure 1: 128/80 Code: 8480-6 BMI: 30.0 Code: 86651-5 Heart Rate 1: 75 bpm Height: 5'8" SpO2: 98% Weight: 197 lbs 03/25/2017 Blood Pressure 1: 150/80 Code: 8480-6 BMI: 30.1 Code: 16406-1 Heart Rate 1: 53 bpm Height: 5'8" SpO2: 98% Weight: 198 lbs 01/21/2017 Blood Pressure 1: 156/88 Code: 8480-6 BMI: 29.8 Code: 54933-5 Heart Rate 1: 95 bpm Height: 5'8" SpO2: 98% Temperature: 36.9 (C) / 98.4 (F) Weight: 196 lbs 12/30/2016 Blood Pressure 1: 122/74 Code: 8480-6 BMI: 29.8 Code: 17674-0 Heart Rate 1: 60 bpm Height: 5'8" SpO2: 96% Temperature: 37.1 (C) / 98.8 (F) Weight: 196 lbs 12/26/2016 Blood Pressure 1: 142/74 Code: 8480-6 BMI: 29.8 Code: 27779-2 Heart Rate 1: 58 bpm Height: 5'8" SpO2: 96% Temperature: 36.7 (C) / 98.0 (F) Weight: 196 lbs 12/02/2016 Blood Pressure 1: 128/78 Code: 8480-6 BMI: 30.3 Code: 18824-9 Heart Rate 1: 49 bpm Height: 5'8" SpO2: 98% Temperature: 36.5 (C) / 97.7 (F) Weight: 199 lbs 11/21/2016 Blood Pressure 1: 130/68 Code: 8480-6 BMI: 30.3 Code: 66360-4 Heart Rate 1: 54 bpm Height: 5'8" SpO2: 98% Weight: 199 lbs 10/25/2016 Blood Pressure 1: 150/92 Code: 8480-6 BMI: 29.8 Code: 33148-7 Heart Rate 1: 54 bpm Height: 5'8" SpO2: 97% Waist Measure (cm): 97 cm Weight: 196 lbs 10/23/2016 Blood Pressure 1: 150/92 Code: 8480-6 BMI: 29.9 Code: 17980-5 Heart Rate 1: 54 bpm Height: 5'8" SpO2: 98% Weight: 196 lbs 8 oz 07/29/2016 Blood Pressure 1: 144/72 Code: 8480-6 BMI: 30.3 Code: 69086-3 Heart Rate 1: 54 bpm Height: 5'8" SpO2: 98% Weight: 199 lbs 06/24/2016 Blood Pressure 1: 132/78 Code: 8480-6 BMI: 29.5 Code: 54628-8 Heart Rate 1: 59 bpm Height: 5'8" SpO2: 94% Weight: 194 lbs 02/21/2016 Blood Pressure 1: 138/84 Code: 8480-6 BMI: 30.3 Code: 66993-2 Heart Rate 1: 64 bpm Height: 5'8" SpO2: 95% Weight: 199 lbs 10/18/2015 Blood Pressure 1: 154/84 Code: 8480-6 Blood Pressure 1: 138/72 Code: 8480-6 BMI: 30.4 Code: 59830-9 Heart Rate 1: 68 bpm Height: 5'8" SpO2: 97% Weight: 200 lbs 05/02/2015 Blood Pressure 1: 114/64 Code: 8480-6 BMI: 29.0 Code: 86889-5 Heart Rate 1: 62 bpm Height: 5'8" Respiratory Rate: 20 bpm Weight: 191 lbs Functional Status No Functional Status data History of Present Illness Symptom Name Status Result Effective Date Notes Location in the [facility] 12/23/2018 None Quality aching 12/23/2018 None Quality [...] data Encounters Encounter Performer Location Codes Date [id number] EST. PATIENT, LEVEL III Diagnosis: Diverticulitis of small intestine with perforation and abscess without bleeding[ICD10: K57.00] [facility] CPT-4: 46547 12/23/2018 ([id number]) 80440 EST. PATIENT, LEVEL III Diagnosis: Low back pain[ICD10: M54.5] Diagnosis: Muscle spasm of back[ICD10: M62.830] Leidy Husain MD, [facility] CPT-4: 19641 03/31/2018 ([id number]) 67364 EST. PATIENT, LEVEL III Diagnosis: Actinic keratosis[ICD10: L57.0] Diagnosis: Other hypertrophic disorders of the skin[ICD10: L91.8] Amanda Husain MD, [facility] CPT-4: 02508 11/26/2017 ([id number]) 59897 EST. PATIENT, LEVEL IV Diagnosis: Essential (primary) hypertension[ICD10: I10] Diagnosis: Mild cognitive impairment, so stated[ICD10: G31.84] Amanda Husain MD, [facility] CPT-4: 14084 10/07/2017 ([id number]) 52456 EST. PATIENT, LEVEL III Diagnosis: Pneumonia due to other streptococci[ICD10: J15.4] Diagnosis: Cough[ICD10: R05] Amanda Husain MD, [facility] CPT-4: 52090 09/22/2017 [id number] EST. PATIENT, LEVEL IV Diagnosis: Left lower quadrant pain[ICD10: R10.32] Diagnosis: Other fatigue[ICD10: R53.83] Gabrielle Husain MD, [facility] CPT-4: 13473 05/08/2017 ([id number]) 77675 EST. PATIENT, LEVEL III Diagnosis: Essential (primary) hypertension[ICD10: I10] Amanda Husain MD, [facility] CPT-4: 95566 03/25/2017 ([id number]) 39875 EST. PATIENT, LEVEL III Diagnosis: Cough[ICD10: R05] Diagnosis: Allergic rhinitis due to pollen[ICD10: J30.1] Leidy Husain MD, [facility] CPT-4: 08993 01/21/2017 21155 EST. PATIENT, LEVEL III Diagnosis: Other allergic rhinitis[ICD10: J30.89] Diagnosis: Cough[ICD10: R05] Gabrielle Husain MD, [facility] CPT-4: 44165 12/30/2016 ([id number]) 01763 EST. PATIENT, LEVEL III Diagnosis: Cough[ICD10: R05] Diagnosis: Pneumonia, unspecified organism[ICD10: J18.9] Leidy Husain MD, [facility] CPT-4: 43114 12/26/2016 ([id number]) 48193 EST. PATIENT, LEVEL III Diagnosis: Pneumonia due to other streptococci[ICD10: J15.4] Diagnosis: Cough[ICD10: R05] Amanda Husain MD, [facility] CPT-4: 15039 12/02/2016 ([id number]) 39872 EST. PATIENT, LEVEL III Diagnosis: Essential (primary) hypertension[ICD10: I10] Amanda Husain MD [facility] CPT-4: 29880 11/21/2016 ([id number]) 34847 EST. PATIENT, LEVEL IV Diagnosis: Essential (primary) hypertension[ICD10: I10] Diagnosis: Mixed hyperlipidemia[ICD10: E78.2] Amanda Husain MD, [facility] CPT- 4: 07058 10/23/2016 70148 EST. PATIENT, LEVEL IV Diagnosis: Other allergic rhinitis[ICD10: J30.89] Diagnosis: Cough[ICD10: R05] Gabrielle Husain MD, [facility] CPT-4: 10670 07/29/2016 ([id number]) Miscellaneous no charge Diagnosis: Pneumonia, unspecified organism[ICD10: J18.9] Gabrielle Husain MD [facility] CPT-4: 53152 06/27/2016 ([id number]) 77157 EST. PATIENT, LEVEL IV Diagnosis: Essential (primary) hypertension[ICD10: I10] Diagnosis: Pneumonia, unspecified organism[ICD10: J18.9] Diagnosis: Cough[ICD10: R05] Diagnosis: Mixed hyperlipidemia[ICD10: E78.2] Amanda Husain MD, [facility] CPT- 4: 79368 06/24/2016 ([id number]) 73425 EST. PATIENT, LEVEL IV Diagnosis: Mixed hyperlipidemia[ICD10: E78.2] Diagnosis: Essential (primary) hypertension[ICD10: I10] Diagnosis: Gastro-esophageal reflux disease without esophagitis[ICD10: K21.9] [facility] CPT-4: 68043 02/21/2016 ([id number]) 16537 EST. 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 12/23/2018 Appointment: Gabrielle Coronatel: [phone] (15 min) Moderate 12/23/2018 Patient Education: Patient Medication Summary Completed 12/23/2018 Appointment: Gabrielle Coronal: [address] [place], [place] [id number] (30 min) Complex 12/16/2018 Appointment: Lab Draw [...] worsening or does not improve. 03/31/2018 Appointment: eLidy Angulo WPtel: [facility] [address] (15 min) Moderate 03/31/2018 Patient Education: Patient Medication Summary Completed 03/31/2018 Visit Plan: Wound Instructions - Pt was instructed to keep the wound clean, wash with antibacterial soap, use triple antibiotic ointment, call if redness, pustular drainage, or any other acute concerns. 11/26/2017 Appointment: Amanda Husain WPtel: [address] [place] [address] Surgical Procedure 11/26/2017 Patient Education: Patient Medication [...] surrogate. 10/31/2017 Appointment: Leidy Angulo WPtel: [facility] [address] [facility] - Annual Wellness Visit 10/31/2017 [...] loss. 10/07/2017 Appointment: Amanda Husain WPtel: [phone] (30 min) Complex 10/07/2017 Patient Education: Patient Medication Summary Completed 10/07/2017 Patient Education: Obesity Completed 10/07/2017 Patient Education: Hypertension Completed 10/07/2017 Visit Plan: Pneumonia - Pt has been diagnosed with pneumonia by physical exam. Antibiotics have been ordered. The pt is aware of the diagnosis and the need for acute treatment of this illness. 09/22/2017 Appointment: Amanda Husain WPtel: [phone] (15 min) Moderate 09/22/2017 Patient Education: [...] with any questions or concerns. 05/08/2017 Appointment: Garbielle Corona WPtel: [phone] [phone] (30 min) Complex 05/08/2017 Patient Education: Patient [...] daily. 03/25/2017 Appointment: Amanda Husain WPtel: [phone] (15 min) Moderate 03/25/2017 Patient Education: Patient Medication Summary Completed 03/25/2017 Appointment: Leidy Angulo WPtel: [facility] [address] (15 min) Moderate 01/31/2017 Visit Plan: URI/Allergies - Pt advised to increase fluids, vitamin C. Discussed natural and expected course of this diagnosis and need to alert me if symptoms do not follow expected course, or if any worse. RX sent to patient's pharmacy. 01/21/2017 Appointment: Leidy Angulo WPtel: [phone] (15 min) Moderate 01/21/2017 Patient Education: Patient [...] medication. 12/30/2016 Appointment: Leidy Angulo WPtel: [phone] [place] (15 min) Moderate 12/30/2016 Appointment: Gabrielle Corona WPtel: [facility] [place] (30 min) Complex 12/30/2016 Patient Education: [...] levaquin. 12/26/2016 Appointment: Leidy Angulo WPtel: [phone] [facility] [place] [address] (15 min) Moderate 12/26/2016 Patient Education: Patient [...] home. 11/21/2016 Appointment: Amanda Husain WPtel: [address] (15 min) Moderate 11/21/2016 Patient Education: Patient [...] surrogate. 10/25/2016 Appointment: Leidy Angulo WPtel: [phone] [phone] [facility] - Annual Wellness Visit 10/25/2016 [...] to medications. 10/23/2016 Appointment: Amanda Husain WPtel: [phone] (15 min) Moderate 10/23/2016 Patient Education: [...] 07/29/2016 Appointment: Gabrielle Corona WPtel: [phone] [phone] (15 min) Moderate 07/29/2016 Patient Education: Patient [...] to medications. 06/24/2016 Appointment: Amanda Husain WPtel: [address] [place], [place] [phone] (15 min) Moderate 06/24/2016 Patient Education: Patient [...] not improving. 02/21/2016 Appointment: Amanda Husain WPtel: [address] [place], [place] [address] (15 min) Moderate 02/21/2016 Patient Education: Patient [...] Care Plan: COMPLETE CBC AUTOMATED LOINC : 67894-1 Ordered 05/02/2015 Care Plan: ASSAY OF TROPONIN [...] of approaching that level of memory loss. . Diverticulitis - rx for antibiotic sent to pt's pharmacy - pt advised to avoid seeds, nuts, popcorn, or any other food which has been proven to upset the pt's stomach. . 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 [employer] or [facility] [facility] - take three times daily [...] pustular drainage, or any other acute concerns. Finish levaquin and prednisone - let [...]
[2019-05-19] MEDS ORDERED: LACTATED RINGERS 1,000 ML IV PRN (11:29)
--- OUTSIDE RECORDS SUMMARY | 2019-05-19 11:31 | XMS REPORT | CCD ---
Author Author Amanda Celestin MD, [facility] Address [address] [place] [address] Phone Care Team Providers Care Nnp Name Role Phone PP Unavailable CCM Unavailable Summary Purpose Interface Exchange Insurance Providers Payer name Policy type / Coverage type Covered libertarian ID Effective Begin Date Effective End Date WPS Medicare Part B [id number] Unknown [employer] Insurance [id number] Unknown Family history Brother Diagnosis Age At [...] Unknown Retired 05/02/[address]: 8225459 Former smoker Quit in 1966 05/02/2015 Number [...] Fill Instructions metronidazole 500 mg tablet RxNorm: 069101 1 Tablet(s) PO TID 12/23/2018 01/01/2019 Active omeprazole 20 mg capsule,delayed release RxNorm: 657212 TAKE 1 CAPSULE BY MOUTH ONCE DAILY 12/07/2018 No Stop Date Active metoprolol tartrate 25 mg tablet RxNorm: 238428 Tablet(s) TAKE 1 TABLET BY MOUTH TWICE DAILY 10/16/2018 No Stop Date Active metoprolol tartrate 25 mg tablet RxNorm: 610843 TAKE 1 TABLET BY MOUTH TWICE DAILY 07/13/2018 10/15/2018 Inactive Trilipix 135 mg capsule,delayed release RxNorm: 001703 1 Capsule(s) PO daily 06/17/2018 10/14/2018 Inactive ramipril 10 mg capsule RxNorm: 009807 TAKE ONE CAPSULE BY MOUTH ONCE DAILY 06/15/2018 No Stop Date Active omeprazole 20 mg capsule,delayed release RxNorm: 453418 Capsule(s) TAKE ONE CAPSULE BY MOUTH ONCE DAILY 06/03/2018 No Stop Date Active omeprazole 20 mg capsule,delayed release RxNorm: 750921 Capsule(s) TAKE ONE CAPSULE BY MOUTH ONCE DAILY 06/02/2018 06/02/2018 Inactive metoprolol tartrate 25 mg tablet RxNorm: 001975 TAKE ONE TABLET BY MOUTH TWICE DAILY 02/16/2018 07/12/2018 Inactive omeprazole 20 mg capsule,delayed release RxNorm: 680985 TAKE ONE CAPSULE BY MOUTH ONCE DAILY 01/05/2018 06/01/2018 Inactive metoprolol tartrate 25 mg tablet RxNorm: 151829 TAKE ONE TABLET BY MOUTH TWICE DAILY 10/27/2017 02/15/2018 Inactive azithromycin 250 mg tablet RxNorm: 379094 1 Tablet(s) PO UD 2 tabs on day #1, then 1 pill daily x 4 days 09/22/2017 11/25/2017 Inactive omeprazole 20 mg capsule,delayed release RxNorm: 657457 TAKE ONE CAPSULE BY MOUTH ONCE DAILY 06/16/2017 12/12/2017 Inactive metronidazole 500 mg tablet RxNorm: 088168 1 Tablet(s) PO TID 05/08/2017 05/14/2017 Inactive ramipril 10 mg capsule RxNorm: 697887 1 Capsule(s) PO daily 03/25/2017 03/19/2018 Inactive Kenalog 40 mg/mL suspension for injection RxNorm: 1340704 Milliliter(s) Inj 01/21/2017 01/21/2017 Inactive ceftriaxone 500 mg solution for injection RxNorm: 4240323 Inj 12/30/2016 12/30/2016 Inactive Phenergan with Codeine Syrup RxNorm: 5-10 Milliliter(s) PO Q6 PRN 12/26/2016 No Stop Date Active Levaquin 500 mg tablet RxNorm: 059443 1 Tablet(s) PO daily 12/26/2016 01/01/2017 Inactive Tessalon Perles 100 mg capsule RxNorm: 873655 1 Capsule(s) PO TID as needed 12/26/2016 01/04/2017 Inactive prednisone 20 mg tablet RxNorm: 709930 1 Tablet(s) PO BID 12/26/2016 12/30/2016 Inactive omeprazole 20 mg capsule,delayed release RxNorm: 067976 TAKE ONE CAPSULE BY MOUTH ONCE DAILY 12/16/2016 06/13/2017 Inactive cefdinir 300 mg capsule RxNorm: 803828 1 Capsule(s) PO BID 12/02/2016 12/08/2016 Inactive azithromycin 250 mg tablet RxNorm: 238780 Tablet(s) 2 tabs on day #1, then one tab PO daily x 4 more days 12/02/2016 12/25/2016 Inactive metoprolol tartrate 25 mg tablet RxNorm: 046697 1 Tablet(s) PO BID 10/23/2016 10/17/2017 Inactive metoprolol tartrate 25 mg tablet RxNorm: 975903 1 Tablet(s) PO BID 10/23/2016 10/22/2016 Inactive ceftriaxone 500 mg solution for injection RxNorm: 0732384 Inj 06/24/2016 06/24/2016 Inactive cefdinir 300 mg capsule RxNorm: 898408 1 Capsule(s) PO BID 06/24/2016 06/30/2016 Inactive omeprazole 20 mg capsule,delayed release RxNorm: 811458 TAKE ONE CAPSULE BY MOUTH DAILY 06/07/2016 12/03/2016 Inactive omeprazole 20 mg capsule,delayed release RxNorm: 095864 TAKE ONE CAPSULE BY MOUTH DAILY 01/29/2016 05/27/2016 Inactive metoprolol tartrate 50 mg tablet RxNorm: 180149 Tablet(s) TAKE ONE TABLET BY MOUTH DAILY 10/11/2015 10/10/2015 Inactive metoprolol tartrate 50 mg tablet RxNorm: 822305 TAKE ONE TABLET BY MOUTH DAILY 10/11/2015 10/22/2016 Inactive omeprazole 20 mg capsule,delayed release RxNorm: 222125 TAKE ONE CAPSULE BY MOUTH DAILY 08/28/2015 01/24/2016 Inactive metoprolol tartrate 50 mg tablet RxNorm: 254511 TAKE ONE TABLET BY MOUTH DAILY 08/11/2015 10/09/2015 Inactive metoprolol tartrate 50 mg tablet RxNorm: 061849 1 Tablet(s) PO daily 06/14/2015 08/10/2015 Inactive omeprazole 20 mg capsule,delayed release RxNorm: 767606 1 Capsule(s) PO daily 05/29/2015 08/26/2015 Inactive omeprazole 20 mg capsule,delayed release RxNorm: 715393 1 Capsule(s) PO daily 05/29/2015 05/28/2015 Inactive metronidazole 500 mg tablet RxNorm: 895531 1 Tablet(s) PO TID 05/02/2015 05/08/2015 Inactive finasteride 5 mg tablet RxNorm: 288170 1 Tablet(s) PO daily No Start Date Active warfarin 5 mg tablet RxNorm: 800675 1 Tablet(s) PO daily No Start Date Active Aspirin Childrens 81 mg chewable tablet RxNorm: 114736 1 Tablet(s) PO daily No Start Date Active amiodarone 200 mg tablet RxNorm: 581176 1 Tablet(s) PO daily No Start Date Active vitamin E (dl, acetate) 1,000 unit capsule RxNorm: 851421 1 Capsule(s) PO daily No Start Date Active atorvastatin 80 mg tablet RxNorm: 425191 1 Tablet(s) PO daily No Start Date Active Fish Oil 120 mg-180 mg capsule RxNorm: 957903 1 Capsule(s) PO BID No Start Date 10/30/2017 Inactive metoprolol tartrate 50 mg tablet RxNorm: 370517 1 Tablet(s) PO daily No Start Date 06/13/2015 Inactive Zetia 10 mg tablet RxNorm: 151336 1 Tablet(s) PO daily No Start Date 10/17/2015 Inactive ramipril 5 mg capsule RxNorm: 301017 1 Capsule(s) PO daily No Start Date 03/24/2017 Inactive Tessalon Perles 100 mg capsule RxNorm: 771268 1 Capsule(s) PO TID as needed No Start Date 12/25/2016 Inactive omeprazole 20 mg capsule,delayed release RxNorm: 838175 1 Capsule(s) PO daily No Start Date 05/28/2015 Inactive Trilipix 135 mg capsule,delayed release RxNorm: 809058 1 Capsule(s) PO daily No Start Date 06/16/2018 Inactive Centrum Silver tablet RxNorm: 1 Tablet(s) PO daily No Start Date 10/30/2017 Inactive Medication Administered Medication Codes Instructions Start Date Status Kenalog 40 mg/mL suspension for injection RxNorm: 7669375 Milliliter 01/21/2017 No longer Active ceftriaxone 500 mg solution for injection RxNorm: 6050825 12/30/2016 No longer Active ceftriaxone 500 mg solution for injection RxNorm: 6999443 06/24/2016 No longer Active Immunizations Vaccine Codes [...] Code Item Item Code Result Date Pt Ooq7778 PT 17.6 seconds 12/25/2018 Pt Qiz0672 INR 1.5 12/25/2018 Pt Bjv3287 Low Intensity - 1.5-2.0 12/25/2018 Pt Rep4606 Mod intensity - 2.0-3.0 12/25/2018 Pt Equ8661 Hi intensity - 3.0-4.0 12/25/2018 Cbc With [...] 30.0 pg 12/10/2018 Cbc With Differential Ord2 [place]% 10.5 % 12/10/2018 Cbc With Differential Ord2 [...] 2.09 K/ul 12/10/2018 Cbc With Differential Ord2 [place] ABS# 0.8 K/ul 12/10/2018 Cbc With Differential Ord2 Eos ABS# 0.4 K/ul 12/10/2018 Cbc With Differential Ord2 Baso ABS# 0.0 K/ul 12/10/2018 Uric Acid Ord77 Uric A 4.6 mg/dL 12/10/2018 Random Urine Protein/Creatinine Ratio Dvr6592 U Prot 9.0 mg/dl 12/10/2018 Random Urine Protein/Creatinine Ratio Pxw5959 U CREAT 126.0 mg/dL 12/10/2018 Random Urine Protein/Creatinine Ratio Chb4286 R MTP/Creat Ratio 0.07 12/10/2018 Ferritin Ord22 FERRITIN 47.9 ng/mL 12/10/2018 Renal Kqw570 NA 142 mEq/L 12/10/2018 Renal Syx708 K 4.3 mEq/L 12/10/2018 Renal Kxq444 CL 106 mEq/L 12/10/2018 Renal Did002 CO2 30.0 mEq/L 12/10/2018 Renal Pjy371 ANION GAP 10 12/10/2018 Renal Foz826 Osmo 286 mOsmo 12/10/2018 Renal Apl904 GLUCOSE 105 mg/dL 12/10/2018 Renal Fxd263 BUN 20 mg/dL 12/10/2018 Renal Wxk013 Creat 1.4 mg/dL 12/10/2018 Renal Hde229 eGFR 52 ml/min/1.73m2 12/10/2018 Renal Efc660 B/C Ratio 14.1 Ratio 12/10/2018 Renal Qrn826 CALCIUM 9.7 mg/dL 12/10/2018 Renal Etk874 PHOS 3.3 mg/dL 12/10/2018 Renal Bkr139 ALBUMIN 4.0 g/dL 12/10/2018 Urinalysis Ord28 U-Color [...] 17.8 % 12/10/2018 Vitamin D 25 Oh Gpf8467 VITAMIN D, 25 HYDROXY 27.29 ng/mL 12/10/2018 Pt Bcs8718 PT 23.1 seconds 11/05/2018 Pt Qhy0051 INR 2.1 11/05/2018 Pt Fsi1968 Low Intensity - 1.5-2.0 11/05/2018 Pt Zpx6299 Mod intensity - 2.0-3.0 11/05/2018 Pt Vuk9164 Hi intensity - 3.0-4.0 11/05/2018 Pt Mop3599 PT 29.8 seconds 08/17/2018 Pt Qse9531 INR 2.8 08/17/2018 Pt Bas3863 Low Intensity - 1.5-2.0 08/17/2018 Pt Dol5339 Mod intensity - 2.0-3.0 08/17/2018 Pt Azi0781 Hi intensity - 3.0-4.0 08/17/2018 Pt Rtr0631 PT 27.7 seconds 05/18/2018 Pt Ini3602 INR 2.6 05/18/2018 Pt Eqi0202 Low Intensity - 1.5-2.0 05/18/2018 Pt Zqy1397 Mod intensity - 2.0-3.0 05/18/2018 Pt Qed3933 Hi intensity - 3.0-4.0 05/18/2018 Uric Acid [...] 30.9 pg 05/18/2018 Cbc With Differential Ord2 [place]% 13.8 % 05/18/2018 Cbc With Differential Ord2 [...] 1.94 K/ul 05/18/2018 Cbc With Differential Ord2 [place] ABS# 0.9 K/ul 05/18/2018 Cbc With Differential Ord2 Eos ABS# 0.4 K/ul 05/18/2018 Cbc With Differential Ord2 Baso ABS# 0.0 K/ul 05/18/2018 Random Urine Protein/Creatinine Ratio Wxt8958 U Prot 7.0 mg/dl 05/18/2018 Random Urine Protein/Creatinine Ratio Nwj2232 U CREAT 75.0 mg/dL 05/18/2018 Random Urine Protein/Creatinine Ratio Dxw9157 R MTP/Creat Ratio 0.09 05/18/2018 Vitamin D 25 Oh Etg1939 VITAMIN D, 25 HYDROXY 27.40 ng/mL 05/18/2018 Tibc Ord40 Iron 68 ug/dl 05/18/2018 Tibc Ord40 UIBC 308 ug/dL 05/18/2018 Tibc Ord40 TIBC 376 ug/dL 05/18/2018 Tibc Ord40 Fe-%Sat 18.1 % 05/18/2018 Parathyroid Hormone Xme047 PTH 36.20 pg/ml 05/18/2018 Urinalysis Ord28 U-Color [...] hours from collection if refrigerated) 05/18/2018 Renal Bev117 NA 141 mEq/L 05/18/2018 Renal Sqa963 K 4.0 mEq/L 05/18/2018 Renal Dox009 CL 107 mEq/L 05/18/2018 Renal Dzt639 CO2 27.0 mEq/L 05/18/2018 Renal Gwz661 ANION GAP 11 05/18/2018 Renal Opn729 Osmo 282 mOsmo 05/18/2018 Renal Jyw871 GLUCOSE 83 mg/dL 05/18/2018 Renal Rqb339 BUN 18 mg/dL 05/18/2018 Renal Twy527 Creat 1.4 mg/dL 05/18/2018 Renal Amz347 eGFR 55 ml/min/1.73m2 05/18/2018 Renal Tyr686 B/C Ratio 13.3 Ratio 05/18/2018 Renal Hjv124 CALCIUM 9.0 mg/dL 05/18/2018 Renal Nxp729 PHOS 2.9 mg/dL 05/18/2018 Renal Kjo494 ALBUMIN 4.0 g/dL 05/18/2018 Ferritin Ord22 FERRITIN [...] Metabolic Ord15 CALCIUM 9.2 mg/dL 03/23/2018 Pt Hjk9072 PT 29.0 seconds 03/13/2018 Pt Hlt9937 INR 2.7 03/13/2018 Pt Cmk0887 Low Intensity - 1.5-2.0 03/13/2018 Pt Cby7022 Mod intensity - 2.0-3.0 03/13/2018 Pt Iuh0044 Hi intensity - 3.0-4.0 03/13/2018 Pt Ssf4460 PT 31.6 seconds 03/04/2018 Pt Lua8169 INR 3.0 03/04/2018 Pt Awx7915 Low Intensity - 1.5-2.0 03/04/2018 Pt Zit2724 Mod intensity - 2.0-3.0 03/04/2018 Pt Ubz0791 Hi intensity - 3.0-4.0 03/04/2018 Pt Wnm6693 PT 33.3 seconds 01/29/2018 Pt Oqr4791 INR 3.2 01/29/2018 Pt Ujn7380 Low Intensity - 1.5-2.0 01/29/2018 Pt Des9402 Mod intensity - 2.0-3.0 01/29/2018 Pt Yuq5932 Hi intensity - 3.0-4.0 01/29/2018 Pt Npg2412 PT 26.1 seconds 01/21/2018 Pt Rip3218 INR 2.4 01/21/2018 Pt Gyf0334 Low Intensity - 1.5-2.0 01/21/2018 Pt Hpw9841 Mod intensity - 2.0-3.0 01/21/2018 Pt Dwh9337 Hi intensity - 3.0-4.0 01/21/2018 Pt Wfn0422 PT 35.7 seconds 01/09/2018 Pt Jsb0486 INR 3.5 01/09/2018 Pt Mga3067 Low Intensity - 1.5-2.0 01/09/2018 Pt Rrm5097 Mod intensity - 2.0-3.0 01/09/2018 Pt Pmv7629 Hi intensity - 3.0-4.0 01/09/2018 Pt Enf8757 PT 23.8 seconds 12/04/2017 Pt Dgj4942 INR 2.1 12/04/2017 Pt Kbs6393 Low Intensity - 1.5-2.0 12/04/2017 Pt Sii4603 Mod intensity - 2.0-3.0 12/04/2017 Pt Pbv4915 Hi intensity - 3.0-4.0 12/04/2017 Pt Vel8676 PT 32.3 seconds 11/12/2017 Pt Pcn2170 INR 3.1 11/12/2017 Pt Pmp7214 Low Intensity - 1.5-2.0 11/12/2017 Pt Ebo5428 Mod intensity - 2.0-3.0 11/12/2017 Pt Yra3396 Hi intensity - 3.0-4.0 11/12/2017 Urinalysis Ord28 [...] hours from collection if refrigerated) 10/20/2017 Pt Bio9371 PT 16.6 seconds 10/20/2017 Pt Jpu1604 INR 1.4 10/20/2017 Pt Qly6939 Low Intensity - 1.5-2.0 10/20/2017 Pt Lii3230 Mod intensity - 2.0-3.0 10/20/2017 Pt Fnw0622 Hi intensity - 3.0-4.0 10/20/2017 Renal Pfz698 NA 142 mEq/L 10/20/2017 Renal Vrq562 K 4.5 mEq/L 10/20/2017 Renal Ydf355 CL 107 mEq/L 10/20/2017 Renal Ckv769 CO2 28.0 mEq/L 10/20/2017 Renal Cvj280 ANION GAP 12 10/20/2017 Renal Fks356 Osmo 288 mOsmo 10/20/2017 Renal Oko263 GLUCOSE 96 mg/dL 10/20/2017 Renal Ved721 BUN 27 mg/dL 10/20/2017 Renal Dmz592 Creat 1.6 mg/dL 10/20/2017 Renal Efk962 eGFR 46 ml/min/1.73m2 10/20/2017 Renal Gtk218 B/C Ratio 17.2 Ratio 10/20/2017 Renal Joe814 CALCIUM 9.4 mg/dL 10/20/2017 Renal Jrt813 PHOS 3.0 mg/dL 10/20/2017 Renal Bug738 ALBUMIN 4.2 g/dL 10/20/2017 Pt Fvy5106 PT 31.2 seconds 10/17/2017 Pt Gml5847 INR 3.0 10/17/2017 Pt Vrk3224 Low Intensity - 1.5-2.0 10/17/2017 Pt Qna9667 Mod intensity - 2.0-3.0 10/17/2017 Pt Wod0536 Hi intensity - 3.0-4.0 10/17/2017 Comp Metabolic Mlo120 NA 139 mEq/L 05/08/2017 Comp Metabolic Mgt947 K 4.1 mEq/L 05/08/2017 Comp Metabolic Dyf626 CL 103 mEq/L 05/08/2017 Comp Metabolic Kiy537 CO2 28.0 mEq/L 05/08/2017 Comp Metabolic Ppz987 ANION GAP 12 05/08/2017 Comp Metabolic Ynb865 GLUCOSE 75 mg/dL 05/08/2017 Comp Metabolic Kuv055 Creat 1.3 mg/dL 05/08/2017 Comp Metabolic Gru264 eGFR 55 ml/min/1.73m2 05/08/2017 Comp Metabolic Kev003 BUN 20 mg/dL 05/08/2017 Comp Metabolic Gxa332 B/C Ratio 14.9 Ratio 05/08/2017 Comp Metabolic Jyz021 CALCIUM 8.8 mg/dL 05/08/2017 Comp Metabolic Crc742 ALK PHOS 51 U/L 05/08/2017 Comp Metabolic Aws406 AST(SGOT) 30 U/L 05/08/2017 Comp Metabolic Dlo791 ALT(SGPT) 31 U/L 05/08/2017 Comp Metabolic Jiy495 BILI T 0.9 mg/dL 05/08/2017 Comp Metabolic Pks995 ALBUMIN 4.0 g/dL 05/08/2017 Comp Metabolic Nco088 TPRO 6.5 g/dL 05/08/2017 Comp Metabolic Nsw796 GLOB 2.6 g/dL 05/08/2017 Comp Metabolic Aql644 A/G Ratio 1.5 Ratio 05/08/2017 Comp Metabolic Liq877 Osmo 279 mOsmo 05/08/2017 Cbc With Differential [...] 31.5 pg 05/08/2017 Cbc With Differential Ord2 [place]% 13.5 % 05/08/2017 Cbc With Differential Ord2 [...] 1.29 K/ul 05/08/2017 Cbc With Differential Ord2 [place] ABS# 1.1 K/ul 05/08/2017 Cbc With Differential Ord2 Eos ABS# 0.2 K/ul 05/08/2017 Cbc With Differential Ord2 Baso ABS# 0.0 K/ul 05/08/2017 Pt Nmn5880 PT 22.7 seconds 11/22/2016 Pt Den9596 INR 2.1 11/22/2016 Pt Tig6424 Low Intensity - 1.5-2.0 11/22/2016 Pt Lpy7579 Mod intensity - 2.0-3.0 11/22/2016 Pt Rxu2287 Hi intensity - 3.0-4.0 11/22/2016 Pt Joc1096 PT 24.4 seconds 10/25/2016 Pt Gka1297 INR 2.3 10/25/2016 Pt Frd8873 Low Intensity - 1.5-2.0 10/25/2016 Pt Wxd8227 Mod intensity - 2.0-3.0 10/25/2016 Pt Ejv7926 Hi intensity - 3.0-4.0 10/25/2016 Pt Mmb2684 PT 23.5 seconds 09/04/2016 Pt Hvm0603 INR 2.2 09/04/2016 Pt Ejm2192 Low Intensity - 1.5-2.0 09/04/2016 Pt Wtu8827 Mod intensity - 2.0-3.0 09/04/2016 Pt Lvv0344 Hi intensity - 3.0-4.0 09/04/2016 Pt Gxg3895 PT 26.1 seconds 07/09/2016 Pt Sab0231 INR 2.6 07/09/2016 Pt Tdq3933 Low Intensity - 1.5-2.0 07/09/2016 Pt Szj6363 Mod intensity - 2.0-3.0 07/09/2016 Pt Pwu3510 Hi intensity - 3.0-4.0 07/09/2016 Pt Tqk9937 PT 19.4 seconds 06/24/2016 Pt Jfj1892 INR 1.7 06/24/2016 Pt Trc5848 Low Intensity - 1.5-2.0 06/24/2016 Pt Ase6164 Mod intensity - 2.0-3.0 06/24/2016 Pt Fwr3686 Hi intensity - 3.0-4.0 06/24/2016 Pt Oeg1191 PT 28.9 seconds 04/26/2016 Pt Ipr2151 INR 2.9 04/26/2016 Pt Zxr7134 Low Intensity - 1.5-2.0 04/26/2016 Pt Fgj0091 Mod intensity - 2.0-3.0 04/26/2016 Pt Saf4206 Hi intensity - 3.0-4.0 04/26/2016 Tsh Ord6 hTSH II 1.21 uIU/mL 02/29/2016 Pt Fnd0251 PT 21.8 seconds 02/29/2016 Pt Ptq2315 INR 2.0 02/29/2016 Pt Arz4566 Low Intensity - 1.5-2.0 02/29/2016 Pt Nlh8869 Mod intensity - 2.0-3.0 02/29/2016 Pt Gfg0038 Hi intensity - 3.0-4.0 02/29/2016 Lipid Ord30 [...] Ord2 RDW 16.2 % 06/30/2015 Comp Metabolic Rvq798 NA 138 mEq/L 06/30/2015 Comp Metabolic Jfx239 K 4.8 mEq/L 06/30/2015 Comp Metabolic Cvz639 CL 107 mEq/L 06/30/2015 Comp Metabolic Bay591 CO2 27.0 mEq/L 06/30/2015 Comp Metabolic Kay978 ANION GAP 9 06/30/2015 Comp Metabolic Zve040 GLUCOSE 98 mg/dL 06/30/2015 Comp Metabolic Fab870 Creat 1.8 mg/dL 06/30/2015 Comp Metabolic Whk897 eGFR 40 ml/min/1.73m2 06/30/2015 Comp Metabolic Ama318 BUN 20 mg/dL 06/30/2015 Comp Metabolic Use160 B/C Ratio 11.1 Ratio 06/30/2015 Comp Metabolic Cxr308 CALCIUM 9.1 mg/dL 06/30/2015 Comp Metabolic Eza519 ALK PHOS 39 U/L 06/30/2015 Comp Metabolic Trl013 AST(SGOT) 21 U/L 06/30/2015 Comp Metabolic Dno062 ALT(SGPT) 23 U/L 06/30/2015 Comp Metabolic Ebv294 BILI T 0.5 mg/dL 06/30/2015 Comp Metabolic Uqv705 ALBUMIN 4.0 g/dL 06/30/2015 Comp Metabolic Cjs610 TPRO 6.6 g/dL 06/30/2015 Comp Metabolic Ykz127 GLOB 2.6 g/dL 06/30/2015 Comp Metabolic Vdr292 A/G Ratio 1.5 Ratio 06/30/2015 Comp Metabolic Udm171 Osmo 278 mOsmo 06/30/2015 Pt Kis0239 PT 26.1 seconds 06/30/2015 Pt Wkg5898 INR 2.5 06/30/2015 Pt Bwm1874 Low Intensity - 1.5-2.0 06/30/2015 Pt Kka4012 Mod intensity - 2.0-3.0 06/30/2015 Pt Rbs0631 Hi intensity - 3.0-4.0 06/30/2015 Review of [...] Codes Date OCCULT BLOOD FECES CPT- 4: 92475 04/08/2018 PPPS, SUBSEQ VISIT CPT- 4: G0439 04/03/2018 PPPS, SUBSEQ VISIT CPT- 4: G0439 10/31/2017 PRESCRIP TRANSMIT VIA ERX SY CPT-4: G8553 09/22/2017 THER/PROPH/DIAG INJ SC/IM CPT-4: 89112 01/21/2017 TRIAMCINOLONE ACET INJ NOS CPT-4: J3301 01/21/2017 THER/PROPH/DIAG INJ SC/IM CPT-4: 48174 12/30/2016 ROCEPHIN, PER 250 MG CPT- 4: J0696 12/30/2016 PPPS, SUBSEQ VISIT CPT- 4: G0439 10/25/2016 ROCEPHIN, PER 250 MG CPT- 4: J0696 06/24/2016 THER/PROPH/DIAG INJ SC/IM CPT-4: 54367 06/24/2016 Vital Signs Date Vital 12/23/2018 Blood Pressure 1: 140/68 Code: 8480-6 BMI: 29.3 Code: 02137-1 Heart Rate 1: 70 bpm Height: 5'8" SpO2: 97% Weight: 193 lbs 04/03/2018 Blood Pressure 1: 128/72 Code: 8480-6 BMI: 29.8 Code: 61014-6 Heart Rate 1: 60 bpm Height: 5'8" SpO2: 96% Weight: 196 lbs 03/31/2018 Blood Pressure 1: 128/76 Code: 8480-6 BMI: 29.8 Code: 27100-8 Heart Rate 1: 56 bpm Height: 5'8" SpO2: 98% Weight: 196 lbs 11/26/2017 Blood Pressure 1: 156/76 Code: 8480-6 BMI: 29.6 Code: 03981-3 Heart Rate 1: 57 bpm Height: 5'8" SpO2: 98% Weight: 195 lbs 10/31/2017 Blood Pressure 1: 136/74 Code: 8480-6 BMI: 29.5 Code: 85447-6 Heart Rate 1: 56 bpm Height: 5'8" SpO2: 95% Waist Measure (cm): 91 cm Weight: 194 lbs 10/07/2017 Blood Pressure 1: 136/72 Code: 8480-6 BMI: 30.3 Code: 95918-9 Heart Rate 1: 58 bpm Height: 5'8" SpO2: 96% Weight: 199 lbs 09/22/2017 Blood Pressure 1: 138/78 Code: 8480-6 BMI: 30.4 Code: 92416-6 Heart Rate 1: 60 bpm Height: 5'8" SpO2: 98% Temperature: 36.6 (C) / 97.9 (F) Weight: 200 lbs 05/08/2017 Blood Pressure 1: 128/80 Code: 8480-6 BMI: 30.0 Code: 21640-7 Heart Rate 1: 75 bpm Height: 5'8" SpO2: 98% Weight: 197 lbs 03/25/2017 Blood Pressure 1: 150/80 Code: 8480-6 BMI: 30.1 Code: 76652-5 Heart Rate 1: 53 bpm Height: 5'8" SpO2: 98% Weight: 198 lbs 01/21/2017 Blood Pressure 1: 156/88 Code: 8480-6 BMI: 29.8 Code: 00484-5 Heart Rate 1: 95 bpm Height: 5'8" SpO2: 98% Temperature: 36.9 (C) / 98.4 (F) Weight: 196 lbs 12/30/2016 Blood Pressure 1: 122/74 Code: 8480-6 BMI: 29.8 Code: 68783-8 Heart Rate 1: 60 bpm Height: 5'8" SpO2: 96% Temperature: 37.1 (C) / 98.8 (F) Weight: 196 lbs 12/26/2016 Blood Pressure 1: 142/74 Code: 8480-6 BMI: 29.8 Code: 69329-0 Heart Rate 1: 58 bpm Height: 5'8" SpO2: 96% Temperature: 36.7 (C) / 98.0 (F) Weight: 196 lbs 12/02/2016 Blood Pressure 1: 128/78 Code: 8480-6 BMI: 30.3 Code: 36775-8 Heart Rate 1: 49 bpm Height: 5'8" SpO2: 98% Temperature: 36.5 (C) / 97.7 (F) Weight: 199 lbs 11/21/2016 Blood Pressure 1: 130/68 Code: 8480-6 BMI: 30.3 Code: 06454-7 Heart Rate 1: 54 bpm Height: 5'8" SpO2: 98% Weight: 199 lbs 10/25/2016 Blood Pressure 1: 150/92 Code: 8480-6 BMI: 29.8 Code: 35385-8 Heart Rate 1: 54 bpm Height: 5'8" SpO2: 97% Waist Measure (cm): 97 cm Weight: 196 lbs 10/23/2016 Blood Pressure 1: 150/92 Code: 8480-6 BMI: 29.9 Code: 23624-5 Heart Rate 1: 54 bpm Height: 5'8" SpO2: 98% Weight: 196 lbs 8 oz 07/29/2016 Blood Pressure 1: 144/72 Code: 8480-6 BMI: 30.3 Code: 19037-5 Heart Rate 1: 54 bpm Height: 5'8" SpO2: 98% Weight: 199 lbs 06/24/2016 Blood Pressure 1: 132/78 Code: 8480-6 BMI: 29.5 Code: 67112-4 Heart Rate 1: 59 bpm Height: 5'8" SpO2: 94% Weight: 194 lbs 02/21/2016 Blood Pressure 1: 138/84 Code: 8480-6 BMI: 30.3 Code: 42661-4 Heart Rate 1: 64 bpm Height: 5'8" SpO2: 95% Weight: 199 lbs 10/18/2015 Blood Pressure 1: 154/84 Code: 8480-6 Blood Pressure 1: 138/72 Code: 8480-6 BMI: 30.4 Code: 59220-6 Heart Rate 1: 68 bpm Height: 5'8" SpO2: 97% Weight: 200 lbs 05/02/2015 Blood Pressure 1: 114/64 Code: 8480-6 BMI: 29.0 Code: 05349-5 Heart Rate 1: 62 bpm Height: 5'8" Respiratory Rate: 20 bpm Weight: 191 lbs Functional Status No Functional Status data History of Present Illness Symptom Name Status Result Effective Date Notes Location in the [facility] 12/23/2018 None Quality aching 12/23/2018 None Quality [...] data Encounters Encounter Performer Location Codes Date 19305 EST. PATIENT, LEVEL III Diagnosis: Diverticulitis of small intestine with perforation and abscess without bleeding[ICD10: K57.00] [facility] CPT-4: 73074 12/23/2018 ([id number]) 24514 EST. PATIENT, LEVEL III Diagnosis: Low back pain[ICD10: M54.5] Diagnosis: Muscle spasm of back[ICD10: M62.830] Leidy Husain MD, [facility] CPT-4: 17461 03/31/2018 ([id number]) 63454 EST. PATIENT, LEVEL III Diagnosis: Actinic keratosis[ICD10: L57.0] Diagnosis: Other hypertrophic disorders of the skin[ICD10: L91.8] Amanda Husain MD, [facility] CPT-4: 03689 11/26/2017 ([id number]) 54067 EST. PATIENT, LEVEL IV Diagnosis: Essential (primary) hypertension[ICD10: I10] Diagnosis: Mild cognitive impairment, so stated[ICD10: G31.84] Amanda Husain MD, [facility] CPT-4: 74513 10/07/2017 ([id number]) 65298 EST. PATIENT, LEVEL III Diagnosis: Pneumonia due to other streptococci[ICD10: J15.4] Diagnosis: Cough[ICD10: R05] Amanda Husain MD, [facility] CPT-4: 88776 09/22/2017 [id number] EST. PATIENT, LEVEL IV Diagnosis: Left lower quadrant pain[ICD10: R10.32] Diagnosis: Other fatigue[ICD10: R53.83] Gabrielle Husain MD, [facility] CPT-4: 22716 05/08/2017 ([id number]) 08936 EST. PATIENT, LEVEL III Diagnosis: Essential (primary) hypertension[ICD10: I10] Amanda Husain MD, [facility] CPT-4: 25979 03/25/2017 ([id number]) 01475 EST. PATIENT, LEVEL III Diagnosis: Cough[ICD10: R05] Diagnosis: Allergic rhinitis due to pollen[ICD10: J30.1] Leidy uHsain MD, [facility] CPT-4: 16763 01/21/2017 [id number] EST. PATIENT, LEVEL III Diagnosis: Other allergic rhinitis[ICD10: J30.89] Diagnosis: Cough[ICD10: R05] Gabrielle Husain MD, [facility] CPT-4: 58069 12/30/2016 ([id number]) 67180 EST. PATIENT, LEVEL III Diagnosis: Cough[ICD10: R05] Diagnosis: Pneumonia, unspecified organism[ICD10: J18.9] Leidy Husain MD, [facility] CPT-4: 33741 12/26/2016 ([id number]) 22368 EST. PATIENT, LEVEL III Diagnosis: Pneumonia due to other streptococci[ICD10: J15.4] Diagnosis: Cough[ICD10: R05] Amanda Husain MD, [facility] CPT-4: 81748 12/02/2016 ([id number]) 19864 EST. PATIENT, LEVEL III Diagnosis: Essential (primary) hypertension[ICD10: I10] Amanda Husain MD [facility] CPT-4: 92913 11/21/2016 ([id number]) 03729 EST. PATIENT, LEVEL IV Diagnosis: Essential (primary) hypertension[ICD10: I10] Diagnosis: Mixed hyperlipidemia[ICD10: E78.2] Amanda Husain MD, [facility] CPT- 4: 04081 10/23/2016 [id number] EST. PATIENT, LEVEL IV Diagnosis: Other allergic rhinitis[ICD10: J30.89] Diagnosis: Cough[ICD10: R05] Gabrielle Husain MD, [facility] CPT-4: 09208 07/29/2016 ([id number]) Miscellaneous no charge Diagnosis: Pneumonia, unspecified organism[ICD10: J18.9] Gabrielle Husain MD [facility] CPT-4: 66942 06/27/2016 ([id number]) 75277 EST. PATIENT, LEVEL IV Diagnosis: Essential (primary) hypertension[ICD10: I10] Diagnosis: Pneumonia, unspecified organism[ICD10: J18.9] Diagnosis: Cough[ICD10: R05] Diagnosis: Mixed hyperlipidemia[ICD10: E78.2] Amanda Husain MD, [facility] CPT- 4: 16644 06/24/2016 ([id number]) 52837 EST. PATIENT, LEVEL IV Diagnosis: Mixed hyperlipidemia[ICD10: E78.2] Diagnosis: Essential (primary) hypertension[ICD10: I10] Diagnosis: Gastro-esophageal reflux disease without esophagitis[ICD10: K21.9] [facility] CPT-4: 01834 02/21/2016 ([id number]) [address] EST. PATIENT, LEVEL IV Diagnosis: Essential (primary) hypertension[ICD10: I10] Diagnosis: Mixed hyperlipidemia[ICD10: E78.2] Diagnosis: Chronic lymphocytic 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[ICD10: C91.10] [facility] CPT-4: 89956 10/18/2015 ([id number]) OFFICE VISIT, NEW - LEVEL 3 Diagnosis: Diverticulitis[ICD9: 562.11] [facility] CPT-4: 81598 05/02/2015 Plan of Care Planned Activity Notes Codes Status Date Visit Plan: Diverticulitis - rx for antibiotic sent to pt's pharmacy - pt advised to avoid seeds, nuts, popcorn, or any other food which has been proven to upset the pt's stomach. 12/23/2018 Appointment: Gabrielle Coronatel: [facility]5 [facility] (15 min) Moderate 12/23/2018 Patient Education: Patient Medication Summary Completed 12/23/2018 Appointment: Gabrielle Coronal: [address] [place], [place] [id number] (30 min) Complex 12/16/2018 Appointment: Lab Draw [...] not improve. 03/31/2018 Appointment: Leidy Angulo WPtel: [facility] (15 min) Moderate 03/31/2018 Patient Education: Patient Medication Summary Completed 03/31/2018 Visit Plan: Wound Instructions - Pt was instructed to keep the wound clean, wash with antibacterial soap, use triple antibiotic ointment, call if redness, pustular drainage, or any other acute concerns. 11/26/2017 Appointment: Amanda Husain WPtel: [address] [place] [address] Surgical Procedure 11/26/2017 Patient Education: Patient Medication [...] care surrogate. 10/31/2017 Appointment: Leidy Angulo WPtel: [facility]3 [address] [facility] - Annual Wellness Visit 10/31/2017 [...] loss. 10/07/2017 Appointment: Amanda Husain WPtel: [phone] [facility] (30 min) Complex 10/07/2017 Patient Education: Patient Medication Summary Completed 10/07/2017 Patient Education: Obesity Completed 10/07/2017 Patient Education: Hypertension Completed 10/07/2017 Visit Plan: Pneumonia - Pt has been diagnosed with pneumonia by physical exam. Antibiotics have been ordered. The pt is aware of the diagnosis and the need for acute treatment of this illness. 09/22/2017 Appointment: Amanda Husain WPtel: [phone] [phone] (15 min) Moderate 09/22/2017 Patient Education: Patient [...] daily. 03/25/2017 Appointment: Amanda Husain WPtel: [phone] [facility] (15 min) Moderate 03/25/2017 Patient Education: Patient Medication Summary Completed 03/25/2017 Appointment: Leidy Angulo WPtel: [facility]2 [address] (15 min) Moderate 01/31/2017 Visit Plan: URI/Allergies - Pt advised to increase fluids, vitamin C. Discussed natural and expected course of this diagnosis and need to alert me if symptoms do not follow expected course, or if any worse. RX sent to patient's pharmacy. 01/21/2017 Appointment: Leidy Angulo WPtel: [facility]7 [phone] (15 min) Moderate 01/21/2017 Patient Education: [...] the medication. 12/30/2016 Appointment: Leidy Angulo WPtel: [facility]1 [phone] [place] (15 min) Moderate 12/30/2016 Appointment: Gabrielle Corona WPtel: [facility]9 [facility] [place] (30 min) Complex [...] levaquin. 12/26/2016 Appointment: Leidy Angulo WPtel: [phone] [facility] [place] [address] (15 min) Moderate 12/26/2016 Patient Education: Patient [...] home. 11/21/2016 Appointment: Amanda Husain WPtel: [phone] (15 min) Moderate 11/21/2016 Patient Education: [...] surrogate. 10/25/2016 Appointment: Leidy Angulo WPtel: [phone] [phone] [facility] - Annual Wellness Visit 10/25/2016 [...] to medications. 10/23/2016 Appointment: Amanda Husain WPtel: [phone] [facility] (15 min) Moderate 10/23/2016 Patient Education: Patient [...] concerns. 07/29/2016 Appointment: Gabrielle Corona WPtel: [phone] [facility] (15 min) Moderate 07/29/2016 Patient Education: [...] to medications. 06/24/2016 Appointment: Amanda Husain WPtel: [address] [place], [place] [id number] (15 min) Moderate 06/24/2016 Patient Education: Patient [...] not improving. 02/21/2016 Appointment: Amanda Husain WPtel: [address] [place] [phone] (15 min) Moderate 02/21/2016 Patient Education: Patient [...] Care Plan: COMPLETE CBC AUTOMATED LOINC : 46565-3 Ordered 05/02/2015 Care Plan: ASSAY OF TROPONIN [...] pustular drainage, or any other acute concerns. [employer] or [employer] - take three times daily x 7 [...]
--- OUTSIDE RECORDS SUMMARY | 2019-05-19 11:34 | XMS REPORT | CCD ---
Author Author Amanda Celestin MD, [facility] Address [address] [place] [address] Phone Care Team Providers Care Laboratory Immunologist Name Role Phone PP Unavailable CCM Unavailable Summary Purpose Interface Exchange Insurance Providers Payer name Policy type / Coverage type Covered democrat ID Effective Begin Date Effective End Date WPS Medicare Part B [id number] Unknown [employer] [id number] Unknown Family history Brother Diagnosis Age At [...] Unknown Retired 05/02/[address]: 6150182 Former smoker Quit in 1966 05/02/2015 Number [...] Fill Instructions metronidazole 500 mg tablet RxNorm: 296371 1 Tablet(s) PO TID 12/23/2018 01/01/2019 Active omeprazole 20 mg capsule,delayed release RxNorm: 411167 TAKE 1 CAPSULE BY MOUTH ONCE DAILY 12/07/2018 No Stop Date Active metoprolol tartrate 25 mg tablet RxNorm: 502947 Tablet(s) TAKE 1 TABLET BY MOUTH TWICE DAILY 10/16/2018 No Stop Date Active metoprolol tartrate 25 mg tablet RxNorm: 274282 TAKE 1 TABLET BY MOUTH TWICE DAILY 07/13/2018 10/15/2018 Inactive Trilipix 135 mg capsule,delayed release RxNorm: 484039 1 Capsule(s) PO daily 06/17/2018 10/14/2018 Inactive ramipril 10 mg capsule RxNorm: 845673 TAKE ONE CAPSULE BY MOUTH ONCE DAILY 06/15/2018 No Stop Date Active omeprazole 20 mg capsule,delayed release RxNorm: 738604 Capsule(s) TAKE ONE CAPSULE BY MOUTH ONCE DAILY 06/03/2018 No Stop Date Active omeprazole 20 mg capsule,delayed release RxNorm: 946241 Capsule(s) TAKE ONE CAPSULE BY MOUTH ONCE DAILY 06/02/2018 06/02/2018 Inactive metoprolol tartrate 25 mg tablet RxNorm: 793626 TAKE ONE TABLET BY MOUTH TWICE DAILY 02/16/2018 07/12/2018 Inactive omeprazole 20 mg capsule,delayed release RxNorm: 226046 TAKE ONE CAPSULE BY MOUTH ONCE DAILY 01/05/2018 06/01/2018 Inactive metoprolol tartrate 25 mg tablet RxNorm: 081170 TAKE ONE TABLET BY MOUTH TWICE DAILY 10/27/2017 02/15/2018 Inactive azithromycin 250 mg tablet RxNorm: 798259 1 Tablet(s) PO UD 2 tabs on day #1, then 1 pill daily x 4 days 09/22/2017 11/25/2017 Inactive omeprazole 20 mg capsule,delayed release RxNorm: 949639 TAKE ONE CAPSULE BY MOUTH ONCE DAILY 06/16/2017 12/12/2017 Inactive metronidazole 500 mg tablet RxNorm: 157655 1 Tablet(s) PO TID 05/08/2017 05/14/2017 Inactive ramipril 10 mg capsule RxNorm: 844014 1 Capsule(s) PO daily 03/25/2017 03/19/2018 Inactive Kenalog 40 mg/mL suspension for injection RxNorm: 2424186 Milliliter(s) Inj 01/21/2017 01/21/2017 Inactive ceftriaxone 500 mg solution for injection RxNorm: 1818527 Inj 12/30/2016 12/30/2016 Inactive Phenergan with Codeine Syrup RxNorm: 5-10 Milliliter(s) PO Q6 PRN 12/26/2016 No Stop Date Active Levaquin 500 mg tablet RxNorm: 374817 1 Tablet(s) PO daily 12/26/2016 01/01/2017 Inactive Tessalon Perles 100 mg capsule RxNorm: 997497 1 Capsule(s) PO TID as needed 12/26/2016 01/04/2017 Inactive prednisone 20 mg tablet RxNorm: 659890 1 Tablet(s) PO BID 12/26/2016 12/30/2016 Inactive omeprazole 20 mg capsule,delayed release RxNorm: 688072 TAKE ONE CAPSULE BY MOUTH ONCE DAILY 12/16/2016 06/13/2017 Inactive cefdinir 300 mg capsule RxNorm: 909703 1 Capsule(s) PO BID 12/02/2016 12/08/2016 Inactive azithromycin 250 mg tablet RxNorm: 777468 Tablet(s) 2 tabs on day #1, then one tab PO daily x 4 more days 12/02/2016 12/25/2016 Inactive metoprolol tartrate 25 mg tablet RxNorm: 722806 1 Tablet(s) PO BID 10/23/2016 10/17/2017 Inactive metoprolol tartrate 25 mg tablet RxNorm: 916457 1 Tablet(s) PO BID 10/23/2016 10/22/2016 Inactive ceftriaxone 500 mg solution for injection RxNorm: 4803342 Inj 06/24/2016 06/24/2016 Inactive cefdinir 300 mg capsule RxNorm: 650129 1 Capsule(s) PO BID 06/24/2016 06/30/2016 Inactive omeprazole 20 mg capsule,delayed release RxNorm: 733718 TAKE ONE CAPSULE BY MOUTH DAILY 06/07/2016 12/03/2016 Inactive omeprazole 20 mg capsule,delayed release RxNorm: 139596 TAKE ONE CAPSULE BY MOUTH DAILY 01/29/2016 05/27/2016 Inactive metoprolol tartrate 50 mg tablet RxNorm: 849056 Tablet(s) TAKE ONE TABLET BY MOUTH DAILY 10/11/2015 10/10/2015 Inactive metoprolol tartrate 50 mg tablet RxNorm: 468481 TAKE ONE TABLET BY MOUTH DAILY 10/11/2015 10/22/2016 Inactive omeprazole 20 mg capsule,delayed release RxNorm: 050880 TAKE ONE CAPSULE BY MOUTH DAILY 08/28/2015 01/24/2016 Inactive metoprolol tartrate 50 mg tablet RxNorm: 486308 TAKE ONE TABLET BY MOUTH DAILY 08/11/2015 10/09/2015 Inactive metoprolol tartrate 50 mg tablet RxNorm: 750792 1 Tablet(s) PO daily 06/14/2015 08/10/2015 Inactive omeprazole 20 mg capsule,delayed release RxNorm: 589954 1 Capsule(s) PO daily 05/29/2015 08/26/2015 Inactive omeprazole 20 mg capsule,delayed release RxNorm: 640416 1 Capsule(s) PO daily 05/29/2015 05/28/2015 Inactive metronidazole 500 mg tablet RxNorm: 705180 1 Tablet(s) PO TID 05/02/2015 05/08/2015 Inactive finasteride 5 mg tablet RxNorm: 909648 1 Tablet(s) PO daily No Start Date Active warfarin 5 mg tablet RxNorm: 378947 1 Tablet(s) PO daily No Start Date Active Aspirin Childrens 81 mg chewable tablet RxNorm: 564060 1 Tablet(s) PO daily No Start Date Active amiodarone 200 mg tablet RxNorm: 124064 1 Tablet(s) PO daily No Start Date Active vitamin E (dl, acetate) 1,000 unit capsule RxNorm: 399986 1 Capsule(s) PO daily No Start Date Active atorvastatin 80 mg tablet RxNorm: 386478 1 Tablet(s) PO daily No Start Date Active Fish Oil 120 mg-180 mg capsule RxNorm: 976902 1 Capsule(s) PO BID No Start Date 10/30/2017 Inactive metoprolol tartrate 50 mg tablet RxNorm: 912096 1 Tablet(s) PO daily No Start Date 06/13/2015 Inactive Zetia 10 mg tablet RxNorm: 125479 1 Tablet(s) PO daily No Start Date 10/17/2015 Inactive ramipril 5 mg capsule RxNorm: 816366 1 Capsule(s) PO daily No Start Date 03/24/2017 Inactive Tessalon Perles 100 mg capsule RxNorm: 729873 1 Capsule(s) PO TID as needed No Start Date 12/25/2016 Inactive omeprazole 20 mg capsule,delayed release RxNorm: 089810 1 Capsule(s) PO daily No Start Date 05/28/2015 Inactive Trilipix 135 mg capsule,delayed release RxNorm: 399751 1 Capsule(s) PO daily No Start Date 06/16/2018 Inactive Centrum Silver tablet RxNorm: 1 Tablet(s) PO daily No Start Date 10/30/2017 Inactive Medication Administered Medication Codes Instructions Start Date Status Kenalog 40 mg/mL suspension for injection RxNorm: 4232895 Milliliter 01/21/2017 No longer Active ceftriaxone 500 mg solution for injection RxNorm: 0586683 12/30/2016 No longer Active ceftriaxone 500 mg solution for injection RxNorm: 7920968 06/24/2016 No longer Active Immunizations Vaccine Codes [...] Observation Code Item Item Code Result Date Cbc With Differential Ord2 WBC 7.65 K/ul [...] 30.0 pg 12/10/2018 Cbc With Differential Ord2 [place]% 10.5 % 12/10/2018 Cbc With Differential Ord2 [...] 2.09 K/ul 12/10/2018 Cbc With Differential Ord2 [place] ABS# 0.8 K/ul 12/10/2018 Cbc With Differential Ord2 Eos ABS# 0.4 K/ul 12/10/2018 Cbc With Differential Ord2 Baso ABS# 0.0 K/ul 12/10/2018 Uric Acid Ord77 Uric A 4.6 mg/dL 12/10/2018 Random Urine Protein/Creatinine Ratio Xbh8778 U Prot 9.0 mg/dl 12/10/2018 Random Urine Protein/Creatinine Ratio Tfb1590 U CREAT 126.0 mg/dL 12/10/2018 Random Urine Protein/Creatinine Ratio Aev2741 R MTP/Creat Ratio 0.07 12/10/2018 Ferritin Ord22 FERRITIN 47.9 ng/mL 12/10/2018 Renal Wll008 NA 142 mEq/L 12/10/2018 Renal Zii835 K 4.3 mEq/L 12/10/2018 Renal Rca712 CL 106 mEq/L 12/10/2018 Renal Qlu495 CO2 30.0 mEq/L 12/10/2018 Renal Aka638 ANION GAP 10 12/10/2018 Renal Vnz557 Osmo 286 mOsmo 12/10/2018 Renal Dqb803 GLUCOSE 105 mg/dL 12/10/2018 Renal Iwb152 BUN 20 mg/dL 12/10/2018 Renal Mjn679 Creat 1.4 mg/dL 12/10/2018 Renal Ovb963 eGFR 52 ml/min/1.73m2 12/10/2018 Renal Ker892 B/C Ratio 14.1 Ratio 12/10/2018 Renal Fma359 CALCIUM 9.7 mg/dL 12/10/2018 Renal Yoh500 PHOS 3.3 mg/dL 12/10/2018 Renal Rgv902 ALBUMIN 4.0 g/dL 12/10/2018 Urinalysis Ord28 U-Color [...] 17.8 % 12/10/2018 Vitamin D 25 Oh Wsv0100 VITAMIN D, 25 HYDROXY 27.29 ng/mL 12/10/2018 Pt Xhy6014 PT 23.1 seconds 11/05/2018 Pt Rwe1333 INR 2.1 11/05/2018 Pt Efr4756 Low Intensity - 1.5-2.0 11/05/2018 Pt Njf3357 Mod intensity - 2.0-3.0 11/05/2018 Pt Zcn3793 Hi intensity - 3.0-4.0 11/05/2018 Pt Gjd1386 PT 29.8 seconds 08/17/2018 Pt Wci4796 INR 2.8 08/17/2018 Pt Ptt5177 Low Intensity - 1.5-2.0 08/17/2018 Pt Ohb7369 Mod intensity - 2.0-3.0 08/17/2018 Pt Nad5276 Hi intensity - 3.0-4.0 08/17/2018 Pt Iau8825 PT 27.7 seconds 05/18/2018 Pt Dxe5304 INR 2.6 05/18/2018 Pt Scx6158 Low Intensity - 1.5-2.0 05/18/2018 Pt Msk2421 Mod intensity - 2.0-3.0 05/18/2018 Pt Bov5608 Hi intensity - 3.0-4.0 05/18/2018 Uric Acid [...] 30.9 pg 05/18/2018 Cbc With Differential Ord2 [place]% 13.8 % 05/18/2018 Cbc With Differential Ord2 [...] 1.94 K/ul 05/18/2018 Cbc With Differential Ord2 [place] ABS# 0.9 K/ul 05/18/2018 Cbc With Differential Ord2 Eos ABS# 0.4 K/ul 05/18/2018 Cbc With Differential Ord2 Baso ABS# 0.0 K/ul 05/18/2018 Random Urine Protein/Creatinine Ratio Tvc0787 U Prot 7.0 mg/dl 05/18/2018 Random Urine Protein/Creatinine Ratio Qnd2361 U CREAT 75.0 mg/dL 05/18/2018 Random Urine Protein/Creatinine Ratio Tdu3346 R MTP/Creat Ratio 0.09 05/18/2018 Vitamin D 25 Oh Exq0265 VITAMIN D, 25 HYDROXY 27.40 ng/mL 05/18/2018 Tibc Ord40 Iron 68 ug/dl 05/18/2018 Tibc Ord40 UIBC 308 ug/dL 05/18/2018 Tibc Ord40 TIBC 376 ug/dL 05/18/2018 Tibc Ord40 Fe-%Sat 18.1 % 05/18/2018 Parathyroid Hormone Ygn237 PTH 36.20 pg/ml 05/18/2018 Urinalysis Ord28 U-Color [...] hours from collection if refrigerated) 05/18/2018 Renal Buq583 NA 141 mEq/L 05/18/2018 Renal Qhq398 K 4.0 mEq/L 05/18/2018 Renal Ulw035 CL 107 mEq/L 05/18/2018 Renal Cci069 CO2 27.0 mEq/L 05/18/2018 Renal Png586 ANION GAP 11 05/18/2018 Renal Cba312 Osmo 282 mOsmo 05/18/2018 Renal Skz282 GLUCOSE 83 mg/dL 05/18/2018 Renal Nea539 BUN 18 mg/dL 05/18/2018 Renal Cgz476 Creat 1.4 mg/dL 05/18/2018 Renal Nfd389 eGFR 55 ml/min/1.73m2 05/18/2018 Renal Rnj458 B/C Ratio 13.3 Ratio 05/18/2018 Renal Dwk134 CALCIUM 9.0 mg/dL 05/18/2018 Renal Mrj821 PHOS 2.9 mg/dL 05/18/2018 Renal Nwp610 ALBUMIN 4.0 g/dL 05/18/2018 Ferritin Ord22 FERRITIN [...] Metabolic Ord15 CALCIUM 9.2 mg/dL 03/23/2018 Pt Jyb6390 PT 29.0 seconds 03/13/2018 Pt Opw7618 INR 2.7 03/13/2018 Pt Cto1200 Low Intensity - 1.5-2.0 03/13/2018 Pt Mjy6787 Mod intensity - 2.0-3.0 03/13/2018 Pt Kyw8532 Hi intensity - 3.0-4.0 03/13/2018 Pt Knw7633 PT 31.6 seconds 03/04/2018 Pt Afb1396 INR 3.0 03/04/2018 Pt Ptc7779 Low Intensity - 1.5-2.0 03/04/2018 Pt Pno5339 Mod intensity - 2.0-3.0 03/04/2018 Pt Bmd9673 Hi intensity - 3.0-4.0 03/04/2018 Pt Nbq1193 PT 33.3 seconds 01/29/2018 Pt Afa1642 INR 3.2 01/29/2018 Pt Gag9535 Low Intensity - 1.5-2.0 01/29/2018 Pt Hiy0423 Mod intensity - 2.0-3.0 01/29/2018 Pt Few9086 Hi intensity - 3.0-4.0 01/29/2018 Pt Ngp0969 PT 26.1 seconds 01/21/2018 Pt Nhj8532 INR 2.4 01/21/2018 Pt Qxv6090 Low Intensity - 1.5-2.0 01/21/2018 Pt Znu4377 Mod intensity - 2.0-3.0 01/21/2018 Pt Jwo8098 Hi intensity - 3.0-4.0 01/21/2018 Pt Fah4750 PT 35.7 seconds 01/09/2018 Pt Kui8648 INR 3.5 01/09/2018 Pt Qhu3544 Low Intensity - 1.5-2.0 01/09/2018 Pt Dte3495 Mod intensity - 2.0-3.0 01/09/2018 Pt Bim6715 Hi intensity - 3.0-4.0 01/09/2018 Pt Bli3095 PT 23.8 seconds 12/04/2017 Pt Osq3875 INR 2.1 12/04/2017 Pt Rfw8700 Low Intensity - 1.5-2.0 12/04/2017 Pt Vjm8397 Mod intensity - 2.0-3.0 12/04/2017 Pt Lwh7179 Hi intensity - 3.0-4.0 12/04/2017 Pt Moj0385 PT 32.3 seconds 11/12/2017 Pt Mbh0097 INR 3.1 11/12/2017 Pt Rjl5903 Low Intensity - 1.5-2.0 11/12/2017 Pt Vef8708 Mod intensity - 2.0-3.0 11/12/2017 Pt Bhq5775 Hi intensity - 3.0-4.0 11/12/2017 Urinalysis Ord28 [...] hours from collection if refrigerated) 10/20/2017 Pt Sbg8788 PT 16.6 seconds 10/20/2017 Pt Yif5232 INR 1.4 10/20/2017 Pt Ghx4981 Low Intensity - 1.5-2.0 10/20/2017 Pt Nqr4615 Mod intensity - 2.0-3.0 10/20/2017 Pt Tqo5956 Hi intensity - 3.0-4.0 10/20/2017 Renal Iai815 NA 142 mEq/L 10/20/2017 Renal Pxg537 K 4.5 mEq/L 10/20/2017 Renal Zsf728 CL 107 mEq/L 10/20/2017 Renal Dgu054 CO2 28.0 mEq/L 10/20/2017 Renal Svf220 ANION GAP 12 10/20/2017 Renal Fgn216 Osmo 288 mOsmo 10/20/2017 Renal Ovx384 GLUCOSE 96 mg/dL 10/20/2017 Renal Wtq934 BUN 27 mg/dL 10/20/2017 Renal Kow801 Creat 1.6 mg/dL 10/20/2017 Renal Orf685 eGFR 46 ml/min/1.73m2 10/20/2017 Renal Wis861 B/C Ratio 17.2 Ratio 10/20/2017 Renal Hie486 CALCIUM 9.4 mg/dL 10/20/2017 Renal Hft643 PHOS 3.0 mg/dL 10/20/2017 Renal Ymg921 ALBUMIN 4.2 g/dL 10/20/2017 Pt Vum8360 PT 31.2 seconds 10/17/2017 Pt Age7044 INR 3.0 10/17/2017 Pt Jfj4706 Low Intensity - 1.5-2.0 10/17/2017 Pt Epk1867 Mod intensity - 2.0-3.0 10/17/2017 Pt Wpb4524 Hi intensity - 3.0-4.0 10/17/2017 Comp Metabolic Udx426 NA 139 mEq/L 05/08/2017 Comp Metabolic Lse132 K 4.1 mEq/L 05/08/2017 Comp Metabolic Jox834 CL 103 mEq/L 05/08/2017 Comp Metabolic Diw272 CO2 28.0 mEq/L 05/08/2017 Comp Metabolic Aiq285 ANION GAP 12 05/08/2017 Comp Metabolic Zlz808 GLUCOSE 75 mg/dL 05/08/2017 Comp Metabolic Qin572 Creat 1.3 mg/dL 05/08/2017 Comp Metabolic Ycq840 eGFR 55 ml/min/1.73m2 05/08/2017 Comp Metabolic Pcm158 BUN 20 mg/dL 05/08/2017 Comp Metabolic Gbk007 B/C Ratio 14.9 Ratio 05/08/2017 Comp Metabolic Hvh554 CALCIUM 8.8 mg/dL 05/08/2017 Comp Metabolic Hhk834 ALK PHOS 51 U/L 05/08/2017 Comp Metabolic Gpj833 AST(SGOT) 30 U/L 05/08/2017 Comp Metabolic Zfl258 ALT(SGPT) 31 U/L 05/08/2017 Comp Metabolic Yvo776 BILI T 0.9 mg/dL 05/08/2017 Comp Metabolic Xds078 ALBUMIN 4.0 g/dL 05/08/2017 Comp Metabolic Hrh480 TPRO 6.5 g/dL 05/08/2017 Comp Metabolic Rib961 GLOB 2.6 g/dL 05/08/2017 Comp Metabolic Wwh190 A/G Ratio 1.5 Ratio 05/08/2017 Comp Metabolic Zko668 Osmo 279 mOsmo 05/08/2017 Cbc With Differential [...] 31.5 pg 05/08/2017 Cbc With Differential Ord2 [place]% 13.5 % 05/08/2017 Cbc With Differential Ord2 [...] 1.29 K/ul 05/08/2017 Cbc With Differential Ord2 [place] ABS# 1.1 K/ul 05/08/2017 Cbc With Differential Ord2 Eos ABS# 0.2 K/ul 05/08/2017 Cbc With Differential Ord2 Baso ABS# 0.0 K/ul 05/08/2017 Pt Mlx5776 PT 22.7 seconds 11/22/2016 Pt Vnf5343 INR 2.1 11/22/2016 Pt Qpv5727 Low Intensity - 1.5-2.0 11/22/2016 Pt Ugs3118 Mod intensity - 2.0-3.0 11/22/2016 Pt Qua8382 Hi intensity - 3.0-4.0 11/22/2016 Pt Cgv0008 PT 24.4 seconds 10/25/2016 Pt Bng7560 INR 2.3 10/25/2016 Pt Mnq5466 Low Intensity - 1.5-2.0 10/25/2016 Pt Uzc5104 Mod intensity - 2.0-3.0 10/25/2016 Pt Fyq5873 Hi intensity - 3.0-4.0 10/25/2016 Pt Odd6209 PT 23.5 seconds 09/04/2016 Pt Auf8130 INR 2.2 09/04/2016 Pt Vnk0128 Low Intensity - 1.5-2.0 09/04/2016 Pt Hbq2967 Mod intensity - 2.0-3.0 09/04/2016 Pt Wja9751 Hi intensity - 3.0-4.0 09/04/2016 Pt Plg2270 PT 26.1 seconds 07/09/2016 Pt Stv0027 INR 2.6 07/09/2016 Pt Cjh5849 Low Intensity - 1.5-2.0 07/09/2016 Pt Eum4616 Mod intensity - 2.0-3.0 07/09/2016 Pt Fwd1362 Hi intensity - 3.0-4.0 07/09/2016 Pt Bmt8450 PT 19.4 seconds 06/24/2016 Pt Jxh6000 INR 1.7 06/24/2016 Pt Cag8316 Low Intensity - 1.5-2.0 06/24/2016 Pt Sxl5761 Mod intensity - 2.0-3.0 06/24/2016 Pt Pvz3337 Hi intensity - 3.0-4.0 06/24/2016 Pt Ytx8170 PT 28.9 seconds 04/26/2016 Pt Hcc9813 INR 2.9 04/26/2016 Pt Lnp9677 Low Intensity - 1.5-2.0 04/26/2016 Pt Rga6131 Mod intensity - 2.0-3.0 04/26/2016 Pt Tii6136 Hi intensity - 3.0-4.0 04/26/2016 Tsh Ord6 hTSH II 1.21 uIU/mL 02/29/2016 Pt Lwg6580 PT 21.8 seconds 02/29/2016 Pt Cwh7151 INR 2.0 02/29/2016 Pt Oit7417 Low Intensity - 1.5-2.0 02/29/2016 Pt Hun6288 Mod intensity - 2.0-3.0 02/29/2016 Pt Ibn9903 Hi intensity - 3.0-4.0 02/29/2016 Lipid Ord30 [...] Ord2 RDW 16.2 % 06/30/2015 Comp Metabolic Lxv065 NA 138 mEq/L 06/30/2015 Comp Metabolic Qdr658 K 4.8 mEq/L 06/30/2015 Comp Metabolic Uwh252 CL 107 mEq/L 06/30/2015 Comp Metabolic Hcm726 CO2 27.0 mEq/L 06/30/2015 Comp Metabolic Vfp099 ANION GAP 9 06/30/2015 Comp Metabolic Hav307 GLUCOSE 98 mg/dL 06/30/2015 Comp Metabolic Fhy213 Creat 1.8 mg/dL 06/30/2015 Comp Metabolic Ayy439 eGFR 40 ml/min/1.73m2 06/30/2015 Comp Metabolic Vfa267 BUN 20 mg/dL 06/30/2015 Comp Metabolic Zze223 B/C Ratio 11.1 Ratio 06/30/2015 Comp Metabolic Psk301 CALCIUM 9.1 mg/dL 06/30/2015 Comp Metabolic Yzy762 ALK PHOS 39 U/L 06/30/2015 Comp Metabolic Vdc226 AST(SGOT) 21 U/L 06/30/2015 Comp Metabolic Mju520 ALT(SGPT) 23 U/L 06/30/2015 Comp Metabolic Nui811 BILI T 0.5 mg/dL 06/30/2015 Comp Metabolic Kku164 ALBUMIN 4.0 g/dL 06/30/2015 Comp Metabolic Mnm139 TPRO 6.6 g/dL 06/30/2015 Comp Metabolic Eni415 GLOB 2.6 g/dL 06/30/2015 Comp Metabolic Lrx439 A/G Ratio 1.5 Ratio 06/30/2015 Comp Metabolic Zos009 Osmo 278 mOsmo 06/30/2015 Pt Dld1661 PT 26.1 seconds 06/30/2015 Pt Fcl3673 INR 2.5 06/30/2015 Pt Kci1471 Low Intensity - 1.5-2.0 06/30/2015 Pt Fjd9703 Mod intensity - 2.0-3.0 06/30/2015 Pt Kga3935 Hi intensity - 3.0-4.0 06/30/2015 Review of [...] Codes Date OCCULT BLOOD FECES CPT- 4: 41053 04/08/2018 PPPS, SUBSEQ VISIT CPT- 4: G0439 04/03/2018 PPPS, SUBSEQ VISIT CPT- 4: G0439 10/31/2017 PRESCRIP TRANSMIT VIA ERX SY CPT-4: G8553 09/22/2017 THER/PROPH/DIAG INJ SC/IM CPT-4: 37325 01/21/2017 TRIAMCINOLONE ACET INJ NOS CPT-4: J3301 01/21/2017 THER/PROPH/DIAG INJ SC/IM CPT-4: 12533 12/30/2016 ROCEPHIN, PER 250 MG CPT- 4: J0696 12/30/2016 PPPS, SUBSEQ VISIT CPT- 4: G0439 10/25/2016 ROCEPHIN, PER 250 MG CPT- 4: J0696 06/24/2016 THER/PROPH/DIAG INJ SC/IM CPT-4: 01315 06/24/2016 Vital Signs Date Vital 12/23/2018 Blood Pressure 1: 140/68 Code: 8480-6 BMI: 29.3 Code: 46974-9 Heart Rate 1: 70 bpm Height: 5'8" SpO2: 97% Weight: 193 lbs 04/03/2018 Blood Pressure 1: 128/72 Code: 8480-6 BMI: 29.8 Code: 41518-2 Heart Rate 1: 60 bpm Height: 5'8" SpO2: 96% Weight: 196 lbs 03/31/2018 Blood Pressure 1: 128/76 Code: 8480-6 BMI: 29.8 Code: 92288-8 Heart Rate 1: 56 bpm Height: 5'8" SpO2: 98% Weight: 196 lbs 11/26/2017 Blood Pressure 1: 156/76 Code: 8480-6 BMI: 29.6 Code: 70374-8 Heart Rate 1: 57 bpm Height: 5'8" SpO2: 98% Weight: 195 lbs 10/31/2017 Blood Pressure 1: 136/74 Code: 8480-6 BMI: 29.5 Code: 69205-0 Heart Rate 1: 56 bpm Height: 5'8" SpO2: 95% Waist Measure (cm): 91 cm Weight: 194 lbs 10/07/2017 Blood Pressure 1: 136/72 Code: 8480-6 BMI: 30.3 Code: 39964-8 Heart Rate 1: 58 bpm Height: 5'8" SpO2: 96% Weight: 199 lbs 09/22/2017 Blood Pressure 1: 138/78 Code: 8480-6 BMI: 30.4 Code: 45446-9 Heart Rate 1: 60 bpm Height: 5'8" SpO2: 98% Temperature: 36.6 (C) / 97.9 (F) Weight: 200 lbs 05/08/2017 Blood Pressure 1: 128/80 Code: 8480-6 BMI: 30.0 Code: 70517-5 Heart Rate 1: 75 bpm Height: 5'8" SpO2: 98% Weight: 197 lbs 03/25/2017 Blood Pressure 1: 150/80 Code: 8480-6 BMI: 30.1 Code: 35134-9 Heart Rate 1: 53 bpm Height: 5'8" SpO2: 98% Weight: 198 lbs 01/21/2017 Blood Pressure 1: 156/88 Code: 8480-6 BMI: 29.8 Code: 01999-8 Heart Rate 1: 95 bpm Height: 5'8" SpO2: 98% Temperature: 36.9 (C) / 98.4 (F) Weight: 196 lbs 12/30/2016 Blood Pressure 1: 122/74 Code: 8480-6 BMI: 29.8 Code: 56438-0 Heart Rate 1: 60 bpm Height: 5'8" SpO2: 96% Temperature: 37.1 (C) / 98.8 (F) Weight: 196 lbs 12/26/2016 Blood Pressure 1: 142/74 Code: 8480-6 BMI: 29.8 Code: 15440-4 Heart Rate 1: 58 bpm Height: 5'8" SpO2: 96% Temperature: 36.7 (C) / 98.0 (F) Weight: 196 lbs 12/02/2016 Blood Pressure 1: 128/78 Code: 8480-6 BMI: 30.3 Code: 35186-1 Heart Rate 1: 49 bpm Height: 5'8" SpO2: 98% Temperature: 36.5 (C) / 97.7 (F) Weight: 199 lbs 11/21/2016 Blood Pressure 1: 130/68 Code: 8480-6 BMI: 30.3 Code: 87476-0 Heart Rate 1: 54 bpm Height: 5'8" SpO2: 98% Weight: 199 lbs 10/25/2016 Blood Pressure 1: 150/92 Code: 8480-6 BMI: 29.8 Code: 84498-1 Heart Rate 1: 54 bpm Height: 5'8" SpO2: 97% Waist Measure (cm): 97 cm Weight: 196 lbs 10/23/2016 Blood Pressure 1: 150/92 Code: 8480-6 BMI: 29.9 Code: 51592-7 Heart Rate 1: 54 bpm Height: 5'8" SpO2: 98% Weight: 196 lbs 8 oz 07/29/2016 Blood Pressure 1: 144/72 Code: 8480-6 BMI: 30.3 Code: 35733-0 Heart Rate 1: 54 bpm Height: 5'8" SpO2: 98% Weight: 199 lbs 06/24/2016 Blood Pressure 1: 132/78 Code: 8480-6 BMI: 29.5 Code: 51193-7 Heart Rate 1: 59 bpm Height: 5'8" SpO2: 94% Weight: 194 lbs 02/21/2016 Blood Pressure 1: 138/84 Code: 8480-6 BMI: 30.3 Code: 16039-7 Heart Rate 1: 64 bpm Height: 5'8" SpO2: 95% Weight: 199 lbs 10/18/2015 Blood Pressure 1: 154/84 Code: 8480-6 Blood Pressure 1: 138/72 Code: 8480-6 BMI: 30.4 Code: 13900-0 Heart Rate 1: 68 bpm Height: 5'8" SpO2: 97% Weight: 200 lbs 05/02/2015 Blood Pressure 1: 114/64 Code: 8480-6 BMI: 29.0 Code: 17477-4 Heart Rate 1: 62 bpm Height: 5'8" Respiratory Rate: 20 bpm Weight: 191 lbs Functional Status No Functional Status data History of Present Illness Symptom Name Status Result Effective Date Notes Location in the LLQ 12/23/2018 None Quality [...] data Encounters Encounter Performer Location Codes Date 38573 EST. PATIENT, LEVEL III Diagnosis: Diverticulitis of small intestine with perforation and abscess without bleeding[ICD10: K57.00] [facility] CPT-4: 36662 12/23/2018 ([id number]) 16640 EST. PATIENT, LEVEL III Diagnosis: Low back pain[ICD10: M54.5] Diagnosis: Muscle spasm of back[ICD10: M62.830] [facility] CPT-4: 29909 03/31/2018 ([id number]) 18872 EST. PATIENT, LEVEL III Diagnosis: Actinic keratosis[ICD10: L57.0] Diagnosis: Other hypertrophic disorders of the skin[ICD10: L91.8] Amanda Husain MD, [facility] CPT-4: 85028 11/26/2017 ([id number]) 21429 EST. PATIENT, LEVEL IV Diagnosis: Essential (primary) hypertension[ICD10: I10] Diagnosis: Mild cognitive impairment, so stated[ICD10: G31.84] Amanda Husain MD [facility] CPT-4: 50671 10/07/2017 ([id number]) [id number] EST. PATIENT, LEVEL III Diagnosis: Pneumonia due to other streptococci[ICD10: J15.4] Diagnosis: Cough[ICD10: R05] Amanda Husain MD, [facility] CPT-4: 57569 09/22/2017 [id number] EST. PATIENT, LEVEL IV Diagnosis: Left lower quadrant pain[ICD10: R10.32] Diagnosis: Other fatigue[ICD10: R53.83] Gabrielle Husain MD, [facility] CPT-4: 23986 05/08/2017 ([id number]) 43762 EST. PATIENT, LEVEL III Diagnosis: Essential (primary) hypertension[ICD10: I10] Amanda Husain MD, [facility] CPT-4: 45349 03/25/2017 ([id number]) 05739 EST. PATIENT, LEVEL III Diagnosis: Cough[ICD10: R05] Diagnosis: Allergic rhinitis due to pollen[ICD10: J30.1] Leidy Husain MD [facility] CPT-4: 48557 01/21/2017 34911 EST. PATIENT, LEVEL III Diagnosis: Other allergic rhinitis[ICD10: J30.89] Diagnosis: Cough[ICD10: R05] Gabrielle Husain MD, [facility] CPT-4: 90237 12/30/2016 ([id number]) 17544 EST. PATIENT, LEVEL III Diagnosis: Cough[ICD10: R05] Diagnosis: Pneumonia, unspecified organism[ICD10: J18.9] Leidy Husain MD, [facility] CPT-4: 13748 12/26/2016 ([id number]) 96517 EST. PATIENT, LEVEL III Diagnosis: Pneumonia due to other streptococci[ICD10: J15.4] Diagnosis: Cough[ICD10: R05] Amanda Husain MD [facility] CPT-4: 50913 12/02/2016 ([id number]) 62554 EST. PATIENT, LEVEL III Diagnosis: Essential (primary) hypertension[ICD10: I10] Amanda Husain MD [facility] CPT-4: 44682 11/21/2016 ([id number]) 77107 EST. PATIENT, LEVEL IV Diagnosis: Essential (primary) hypertension[ICD10: I10] Diagnosis: Mixed hyperlipidemia[ICD10: E78.2] Amanda Husain MD [facility] CPT- 4: 39750 10/23/2016 97215 EST. PATIENT, LEVEL IV Diagnosis: Other allergic rhinitis[ICD10: J30.89] Diagnosis: Cough[ICD10: R05] Gabrielle Husain MD [facility] CPT-4: 52998 07/29/2016 ([id number]) Miscellaneous no charge Diagnosis: Pneumonia, unspecified organism[ICD10: J18.9] Gabrielle Husain MD [facility] CPT-4: 45863 06/27/2016 ([id number]) 66381 EST. PATIENT, LEVEL IV Diagnosis: Essential (primary) hypertension[ICD10: I10] Diagnosis: Pneumonia, unspecified organism[ICD10: J18.9] Diagnosis: Cough[ICD10: R05] Diagnosis: Mixed hyperlipidemia[ICD10: E78.2] Amanda Husain MD [facility] CPT- 4: 46341 06/24/2016 ([id number]) 74305 EST. PATIENT, LEVEL IV Diagnosis: Mixed hyperlipidemia[ICD10: E78.2] Diagnosis: Essential (primary) hypertension[ICD10: I10] Diagnosis: Gastro-esophageal reflux disease without esophagitis[ICD10: K21.9] Amanda Husain MD, [facility] CPT-4: 94023 02/21/2016 ([id number]) 71878 EST. 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 12/23/2018 Appointment: Gabrielle Corona WPtel: [phone] [facility] (15 min) Moderate 12/23/2018 Patient Education: Patient Medication Summary Completed 12/23/2018 Appointment: [phone] (30 min) Complex 12/16/2018 Appointment: Lab Draw [...] or does not improve. 03/31/2018 Appointment: Leidy Angulo: [phone] (15 min) Moderate 03/31/2018 Patient Education: Patient Medication Summary Completed 03/31/2018 Visit Plan: Wound Instructions - Pt was instructed to keep the wound clean, wash with antibacterial soap, use triple antibiotic ointment, call if redness, pustular drainage, or any other acute concerns. 11/26/2017 Appointment: Amanda Husain WPtel: [address] [place], [place] [phone] Surgical Procedure 11/26/2017 Patient Education: Patient Medication [...] care surrogate. 10/31/2017 Appointment: Leidy Angulo WPtel: [address] [place], [place] [phone] [facility] - [...] [phone] (30 min) Complex 10/07/2017 Patient Education: Patient Medication Summary Completed 10/07/2017 Patient Education: Obesity Completed 10/07/2017 Patient Education: Hypertension Completed 10/07/2017 Visit Plan: Pneumonia - Pt has been diagnosed with pneumonia by physical exam. Antibiotics have been ordered. The pt is aware of the diagnosis and the need for acute treatment of this illness. 09/22/2017 Appointment: Amanda Husain WPtel: [phone] [facility] (15 min) Moderate 09/22/2017 Patient Education: [...] or concerns. 05/08/2017 Appointment: [phone] (30 min) Complex 05/08/2017 Patient Education: Patient [...] [facility]el[phone] (15 min) Moderate 03/25/2017 Patient Education: Patient Medication Summary Completed 03/25/2017 Appointment: Leidy Angulo WPtel: [phone] (15 min) Moderate 01/31/2017 Visit Plan: URI/Allergies - Pt advised to increase fluids, vitamin C. Discussed natural and expected course of this diagnosis and need to alert me if symptoms do not follow expected course, or if any worse. RX sent to patient's pharmacy. 01/21/2017 Appointment: Leidy Angulo WPtel: [phone] [phone] [place] (15 min) Moderate 01/21/2017 Patient [...] Appointment: Leidy Angulo WPtel: [facility] [place] [phone] [place] (15 min) Moderate 12/30/2016 Appointment: Gabrielle Corona WPtel: [facility] [place] (30 min) Complex 12/30/2016 Patient [...] the levaquin. 12/26/2016 Appointment: Leidy Angulo WPtel: [phone] [phone] [place] (15 min) Moderate 12/26/2016 Patient [...] home. 11/21/2016 Appointment: Amanda Husain [facility]el: [phone] (15 min) Moderate 11/21/2016 Patient Education: Patient [...] 10/25/2016 App[facility]ment: [phone] [facility] - [...] to medications. 10/23/2016 Appointment: Amanda Husain WPtel: [address] [place] [address] (15 min) Moderate 10/23/2016 Patient Education: Patient [...] any concerns. 07/29/2016 Appointment: Gabrielle Corona WPtel: [facility] [place] [phone] (15 min) Moderate 07/29/2016 Patient Education: Patient [...] to medications. 06/24/2016 Appointment: Amanda Husain WPtel: [address] [place], [place] [id number] (15 min) Moderate 06/24/2016 Patient Education: Patient [...] not improving. 02/21/2016 Appointment: Rodrigue Amanda WPtel: [facility] (15 min) Moderate 02/21/2016 Patient Education: Patient [...] Care Plan: COMPLETE CBC AUTOMATED LOINC : 14676-5 Ordered 05/02/2015 Care Plan: ASSAY OF TROPONIN [...] been proven to upset the pt's stomach. kenalog injection zyrtec 10mg daily call if [...] her DOPA paperwork for health care surrogate. [email or web address] [facility] - take three times daily x 7 [...]
--- OUTSIDE RECORDS SUMMARY | 2019-05-19 11:38 | XMS REPORT | CCD ---
Author Author Amanda Celestin MD, [facility] Address [address] [place] [address] Phone Care Team Providers Care Storm Sash Maker Name Role Phone PP Unavailable CCM Unavailable Summary Purpose Interface Exchange Insurance Providers Payer name Policy type / Coverage type Covered constitution party ID Effective Begin Date Effective End Date WPS Medicare Part B [id number] Unknown [employer] Insurance [id number] Unknown Family history Brother Diagnosis Age At [...] Unknown Retired 05/02/[address]: 8440256 Former smoker Quit in 1966 05/02/2015 Number [...] Start Date Stop Date Status Fill Instructions omeprazole 20 mg capsule,delayed release RxNorm: 871713 TAKE 1 CAPSULE BY MOUTH ONCE DAILY 12/07/2018 No Stop Date Active metoprolol tartrate 25 mg tablet RxNorm: 525158 Tablet(s) TAKE 1 TABLET BY MOUTH TWICE DAILY 10/16/2018 No Stop Date Active metoprolol tartrate 25 mg tablet RxNorm: 599563 TAKE 1 TABLET BY MOUTH TWICE DAILY 07/13/2018 10/15/2018 Inactive Trilipix 135 mg capsule,delayed release RxNorm: 575250 1 Capsule(s) PO daily 06/17/2018 10/14/2018 Inactive ramipril 10 mg capsule RxNorm: 368687 TAKE ONE CAPSULE BY MOUTH ONCE DAILY 06/15/2018 No Stop Date Active omeprazole 20 mg capsule,delayed release RxNorm: 954816 Capsule(s) TAKE ONE CAPSULE BY MOUTH ONCE DAILY 06/03/2018 No Stop Date Active omeprazole 20 mg capsule,delayed release RxNorm: 811148 Capsule(s) TAKE ONE CAPSULE BY MOUTH ONCE DAILY 06/02/2018 06/02/2018 Inactive metoprolol tartrate 25 mg tablet RxNorm: 899826 TAKE ONE TABLET BY MOUTH TWICE DAILY 02/16/2018 07/12/2018 Inactive omeprazole 20 mg capsule,delayed release RxNorm: 606368 TAKE ONE CAPSULE BY MOUTH ONCE DAILY 01/05/2018 06/01/2018 Inactive metoprolol tartrate 25 mg tablet RxNorm: 138253 TAKE ONE TABLET BY MOUTH TWICE DAILY 10/27/2017 02/15/2018 Inactive azithromycin 250 mg tablet RxNorm: 479101 1 Tablet(s) PO UD 2 tabs on day #1, then 1 pill daily x 4 days 09/22/2017 11/25/2017 Inactive omeprazole 20 mg capsule,delayed release RxNorm: 724712 TAKE ONE CAPSULE BY MOUTH ONCE DAILY 06/16/2017 12/12/2017 Inactive metronidazole 500 mg tablet RxNorm: 872289 1 Tablet(s) PO TID 05/08/2017 05/14/2017 Inactive ramipril 10 mg capsule RxNorm: 034950 1 Capsule(s) PO daily 03/25/2017 03/19/2018 Inactive Kenalog 40 mg/mL suspension for injection RxNorm: 7064650 Milliliter(s) Inj 01/21/2017 01/21/2017 Inactive ceftriaxone 500 mg solution for injection RxNorm: 3093133 Inj 12/30/2016 12/30/2016 Inactive Phenergan with Codeine Syrup RxNorm: 5-10 Milliliter(s) PO Q6 PRN 12/26/2016 No Stop Date Active Levaquin 500 mg tablet RxNorm: 328208 1 Tablet(s) PO daily 12/26/2016 01/01/2017 Inactive Tessalon Perles 100 mg capsule RxNorm: 410534 1 Capsule(s) PO TID as needed 12/26/2016 01/04/2017 Inactive prednisone 20 mg tablet RxNorm: 243465 1 Tablet(s) PO BID 12/26/2016 12/30/2016 Inactive omeprazole 20 mg capsule,delayed release RxNorm: 003448 TAKE ONE CAPSULE BY MOUTH ONCE DAILY 12/16/2016 06/13/2017 Inactive cefdinir 300 mg capsule RxNorm: 186667 1 Capsule(s) PO BID 12/02/2016 12/08/2016 Inactive azithromycin 250 mg tablet RxNorm: 683676 Tablet(s) 2 tabs on day #1, then one tab PO daily x 4 more days 12/02/2016 12/25/2016 Inactive metoprolol tartrate 25 mg tablet RxNorm: 200207 1 Tablet(s) PO BID 10/23/2016 10/17/2017 Inactive metoprolol tartrate 25 mg tablet RxNorm: 230160 1 Tablet(s) PO BID 10/23/2016 10/22/2016 Inactive ceftriaxone 500 mg solution for injection RxNorm: 5849212 Inj 06/24/2016 06/24/2016 Inactive cefdinir 300 mg capsule RxNorm: 400922 1 Capsule(s) PO BID 06/24/2016 06/30/2016 Inactive omeprazole 20 mg capsule,delayed release RxNorm: 989541 TAKE ONE CAPSULE BY MOUTH DAILY 06/07/2016 12/03/2016 Inactive omeprazole 20 mg capsule,delayed release RxNorm: 504275 TAKE ONE CAPSULE BY MOUTH DAILY 01/29/2016 05/27/2016 Inactive metoprolol tartrate 50 mg tablet RxNorm: 547718 Tablet(s) TAKE ONE TABLET BY MOUTH DAILY 10/11/2015 10/10/2015 Inactive metoprolol tartrate 50 mg tablet RxNorm: 884285 TAKE ONE TABLET BY MOUTH DAILY 10/11/2015 10/22/2016 Inactive omeprazole 20 mg capsule,delayed release RxNorm: 024336 TAKE ONE CAPSULE BY MOUTH DAILY 08/28/2015 01/24/2016 Inactive metoprolol tartrate 50 mg tablet RxNorm: 210909 TAKE ONE TABLET BY MOUTH DAILY 08/11/2015 10/09/2015 Inactive metoprolol tartrate 50 mg tablet RxNorm: 816977 1 Tablet(s) PO daily 06/14/2015 08/10/2015 Inactive omeprazole 20 mg capsule,delayed release RxNorm: 384001 1 Capsule(s) PO daily 05/29/2015 08/26/2015 Inactive omeprazole 20 mg capsule,delayed release RxNorm: 110546 1 Capsule(s) PO daily 05/29/2015 05/28/2015 Inactive metronidazole 500 mg tablet RxNorm: 673603 1 Tablet(s) PO TID 05/02/2015 05/08/2015 Inactive finasteride 5 mg tablet RxNorm: 549604 1 Tablet(s) PO daily No Start Date Active warfarin 5 mg tablet RxNorm: 083852 1 Tablet(s) PO daily No Start Date Active Aspirin Childrens 81 mg chewable tablet RxNorm: 473484 1 Tablet(s) PO daily No Start Date Active amiodarone 200 mg tablet RxNorm: 383611 1 Tablet(s) PO daily No Start Date Active vitamin E (dl, acetate) 1,000 unit capsule RxNorm: 871107 1 Capsule(s) PO daily No Start Date Active atorvastatin 80 mg tablet RxNorm: 937989 1 Tablet(s) PO daily No Start Date Active Fish Oil 120 mg-180 mg capsule RxNorm: 343124 1 Capsule(s) PO BID No Start Date 10/30/2017 Inactive metoprolol tartrate 50 mg tablet RxNorm: 576635 1 Tablet(s) PO daily No Start Date 06/13/2015 Inactive Zetia 10 mg tablet RxNorm: 118195 1 Tablet(s) PO daily No Start Date 10/17/2015 Inactive ramipril 5 mg capsule RxNorm: 422540 1 Capsule(s) PO daily No Start Date 03/24/2017 Inactive Tessalon Perles 100 mg capsule RxNorm: 738540 1 Capsule(s) PO TID as needed No Start Date 12/25/2016 Inactive omeprazole 20 mg capsule,delayed release RxNorm: 658055 1 Capsule(s) PO daily No Start Date 05/28/2015 Inactive Trilipix 135 mg capsule,delayed release RxNorm: 253879 1 Capsule(s) PO daily No Start Date 06/16/2018 Inactive Centrum Silver tablet RxNorm: 1 Tablet(s) PO daily No Start Date 10/30/2017 Inactive Medication Administered Medication Codes Instructions Start Date Status Kenalog 40 mg/mL suspension for injection RxNorm: 9872270 Milliliter 01/21/2017 No longer Active ceftriaxone 500 mg solution for injection RxNorm: 1756188 12/30/2016 No longer Active ceftriaxone 500 mg solution for injection RxNorm: 6142039 06/24/2016 No longer Active Immunizations Vaccine Codes [...] 30.0 pg 12/10/2018 Cbc With Differential Ord2 [facility]% 10.5 % 12/10/2018 Cbc With Differential Ord2 [...] 2.09 K/ul 12/10/2018 Cbc With Differential Ord2 [facility] ABS# 0.8 K/ul 12/10/2018 Cbc With Differential Ord2 Eos ABS# 0.4 K/ul 12/10/2018 Cbc With Differential Ord2 Baso ABS# 0.0 K/ul 12/10/2018 Pt Rug9322 PT 23.1 seconds 11/05/2018 Pt Ata1551 INR 2.1 11/05/2018 Pt Pow9341 Low Intensity - 1.5-2.0 11/05/2018 Pt Zks0547 Mod intensity - 2.0-3.0 11/05/2018 Pt Nvt7062 Hi intensity - 3.0-4.0 11/05/2018 Pt Sva9779 PT 29.8 seconds 08/17/2018 Pt Kuv1945 INR 2.8 08/17/2018 Pt Asw8459 Low Intensity - 1.5-2.0 08/17/2018 Pt Mse0958 Mod intensity - 2.0-3.0 08/17/2018 Pt Fku8214 Hi intensity - 3.0-4.0 08/17/2018 Pt Qix2341 PT 27.7 seconds 05/18/2018 Pt Pde5820 INR 2.6 05/18/2018 Pt Sml4605 Low Intensity - 1.5-2.0 05/18/2018 Pt Evp8476 Mod intensity - 2.0-3.0 05/18/2018 Pt Noc0137 Hi intensity - 3.0-4.0 05/18/2018 Uric Acid [...] 30.9 pg 05/18/2018 Cbc With Differential Ord2 [facility]% 13.8 % 05/18/2018 Cbc With Differential Ord2 [...] 1.94 K/ul 05/18/2018 Cbc With Differential Ord2 [facility] ABS# 0.9 K/ul 05/18/2018 Cbc With Differential Ord2 Eos ABS# 0.4 K/ul 05/18/2018 Cbc With Differential Ord2 Baso ABS# 0.0 K/ul 05/18/2018 Random Urine Protein/Creatinine Ratio Aqm0518 U Prot 7.0 mg/dl 05/18/2018 Random Urine Protein/Creatinine Ratio Pbc7393 U CREAT 75.0 mg/dL 05/18/2018 Random Urine Protein/Creatinine Ratio Wsa1580 R MTP/Creat Ratio 0.09 05/18/2018 Vitamin D 25 Oh Hnz0585 VITAMIN D, 25 HYDROXY 27.40 ng/mL 05/18/2018 Tibc Ord40 Iron 68 ug/dl 05/18/2018 Tibc Ord40 UIBC 308 ug/dL 05/18/2018 Tibc Ord40 TIBC 376 ug/dL 05/18/2018 Tibc Ord40 Fe-%Sat 18.1 % 05/18/2018 Parathyroid Hormone Vts442 PTH 36.20 pg/ml 05/18/2018 Urinalysis Ord28 U-Color [...] hours from collection if refrigerated) 05/18/2018 Renal Prd965 NA 141 mEq/L 05/18/2018 Renal Bem835 K 4.0 mEq/L 05/18/2018 Renal Cuu005 CL 107 mEq/L 05/18/2018 Renal Fdk171 CO2 27.0 mEq/L 05/18/2018 Renal Nhw138 ANION GAP 11 05/18/2018 Renal Ztc206 Osmo 282 mOsmo 05/18/2018 Renal Lia173 GLUCOSE 83 mg/dL 05/18/2018 Renal Lko342 BUN 18 mg/dL 05/18/2018 Renal Gmu528 Creat 1.4 mg/dL 05/18/2018 Renal Atm346 eGFR 55 ml/min/1.73m2 05/18/2018 Renal Ddf364 B/C Ratio 13.3 Ratio 05/18/2018 Renal Nal054 CALCIUM 9.0 mg/dL 05/18/2018 Renal Wyq976 PHOS 2.9 mg/dL 05/18/2018 Renal Akj514 ALBUMIN 4.0 g/dL 05/18/2018 Ferritin Ord22 FERRITIN [...] Metabolic Ord15 CALCIUM 9.2 mg/dL 03/23/2018 Pt Uuz9689 PT 29.0 seconds 03/13/2018 Pt Hed9883 INR 2.7 03/13/2018 Pt Lyg1181 Low Intensity - 1.5-2.0 03/13/2018 Pt Kyt8074 Mod intensity - 2.0-3.0 03/13/2018 Pt Wnz9914 Hi intensity - 3.0-4.0 03/13/2018 Pt Dpy4263 PT 31.6 seconds 03/04/2018 Pt Uuu8563 INR 3.0 03/04/2018 Pt Vyk4058 Low Intensity - 1.5-2.0 03/04/2018 Pt Ibd6154 Mod intensity - 2.0-3.0 03/04/2018 Pt Bbt5345 Hi intensity - 3.0-4.0 03/04/2018 Pt Ocx2774 PT 33.3 seconds 01/29/2018 Pt Mri5178 INR 3.2 01/29/2018 Pt Dxu6104 Low Intensity - 1.5-2.0 01/29/2018 Pt Xkc2218 Mod intensity - 2.0-3.0 01/29/2018 Pt Mzl7398 Hi intensity - 3.0-4.0 01/29/2018 Pt Cxd5371 PT 26.1 seconds 01/21/2018 Pt Gbm0806 INR 2.4 01/21/2018 Pt Bkk3062 Low Intensity - 1.5-2.0 01/21/2018 Pt Pbv5525 Mod intensity - 2.0-3.0 01/21/2018 Pt Nhr8926 Hi intensity - 3.0-4.0 01/21/2018 Pt Blv2676 PT 35.7 seconds 01/09/2018 Pt Epg8354 INR 3.5 01/09/2018 Pt Xfx5881 Low Intensity - 1.5-2.0 01/09/2018 Pt Pyp6865 Mod intensity - 2.0-3.0 01/09/2018 Pt Opb6013 Hi intensity - 3.0-4.0 01/09/2018 Pt Tcs0574 PT 23.8 seconds 12/04/2017 Pt Exq0845 INR 2.1 12/04/2017 Pt Iwv9062 Low Intensity - 1.5-2.0 12/04/2017 Pt Alv0927 Mod intensity - 2.0-3.0 12/04/2017 Pt Lgs2863 Hi intensity - 3.0-4.0 12/04/2017 Pt Zbd1759 PT 32.3 seconds 11/12/2017 Pt Wtq5147 INR 3.1 11/12/2017 Pt Nfs3946 Low Intensity - 1.5-2.0 11/12/2017 Pt Jru2744 Mod intensity - 2.0-3.0 11/12/2017 Pt Utf3087 Hi intensity - 3.0-4.0 11/12/2017 Urinalysis Ord28 [...] hours from collection if refrigerated) 10/20/2017 Pt Tqs0361 PT 16.6 seconds 10/20/2017 Pt Nlu4513 INR 1.4 10/20/2017 Pt Ekb8852 Low Intensity - 1.5-2.0 10/20/2017 Pt Nff7119 Mod intensity - 2.0-3.0 10/20/2017 Pt Dwb1635 Hi intensity - 3.0-4.0 10/20/2017 Renal Qpt771 NA 142 mEq/L 10/20/2017 Renal Tpe342 K 4.5 mEq/L 10/20/2017 Renal Bki628 CL 107 mEq/L 10/20/2017 Renal Oys869 CO2 28.0 mEq/L 10/20/2017 Renal Yiz774 ANION GAP 12 10/20/2017 Renal Uyb961 Osmo 288 mOsmo 10/20/2017 Renal Sal753 GLUCOSE 96 mg/dL 10/20/2017 Renal Luf199 BUN 27 mg/dL 10/20/2017 Renal Hzk766 Creat 1.6 mg/dL 10/20/2017 Renal Kkr705 eGFR 46 ml/min/1.73m2 10/20/2017 Renal Nku966 B/C Ratio 17.2 Ratio 10/20/2017 Renal Rkz771 CALCIUM 9.4 mg/dL 10/20/2017 Renal Czn616 PHOS 3.0 mg/dL 10/20/2017 Renal Fwu447 ALBUMIN 4.2 g/dL 10/20/2017 Pt Zbj3570 PT 31.2 seconds 10/17/2017 Pt Bfp6133 INR 3.0 10/17/2017 Pt Qna6292 Low Intensity - 1.5-2.0 10/17/2017 Pt Csx7278 Mod intensity - 2.0-3.0 10/17/2017 Pt Gvb0402 Hi intensity - 3.0-4.0 10/17/2017 Comp Metabolic Hzn840 NA 139 mEq/L 05/08/2017 Comp Metabolic Epn338 K 4.1 mEq/L 05/08/2017 Comp Metabolic Ubt760 CL 103 mEq/L 05/08/2017 Comp Metabolic Xte631 CO2 28.0 mEq/L 05/08/2017 Comp Metabolic Hid256 ANION GAP 12 05/08/2017 Comp Metabolic Onz783 GLUCOSE 75 mg/dL 05/08/2017 Comp Metabolic Nnt913 Creat 1.3 mg/dL 05/08/2017 Comp Metabolic Asl495 eGFR 55 ml/min/1.73m2 05/08/2017 Comp Metabolic Mgr602 BUN 20 mg/dL 05/08/2017 Comp Metabolic Zvz036 B/C Ratio 14.9 Ratio 05/08/2017 Comp Metabolic Ehh029 CALCIUM 8.8 mg/dL 05/08/2017 Comp Metabolic Dut906 ALK PHOS 51 U/L 05/08/2017 Comp Metabolic Lka266 AST(SGOT) 30 U/L 05/08/2017 Comp Metabolic Bzz232 ALT(SGPT) 31 U/L 05/08/2017 Comp Metabolic Ifz308 BILI T 0.9 mg/dL 05/08/2017 Comp Metabolic Lqz718 ALBUMIN 4.0 g/dL 05/08/2017 Comp Metabolic Lbz978 TPRO 6.5 g/dL 05/08/2017 Comp Metabolic Tkb369 GLOB 2.6 g/dL 05/08/2017 Comp Metabolic Bit280 A/G Ratio 1.5 Ratio 05/08/2017 Comp Metabolic Hnk251 Osmo 279 mOsmo 05/08/2017 Cbc With Differential [...] 31.5 pg 05/08/2017 Cbc With Differential Ord2 [facility]% 13.5 % 05/08/2017 Cbc With Differential Ord2 [...] 1.29 K/ul 05/08/2017 Cbc With Differential Ord2 [facility] ABS# 1.1 K/ul 05/08/2017 Cbc With Differential Ord2 Eos ABS# 0.2 K/ul 05/08/2017 Cbc With Differential Ord2 Baso ABS# 0.0 K/ul 05/08/2017 Pt Wze5916 PT 22.7 seconds 11/22/2016 Pt Lpl0894 INR 2.1 11/22/2016 Pt Agb9351 Low Intensity - 1.5-2.0 11/22/2016 Pt Qxn4653 Mod intensity - 2.0-3.0 11/22/2016 Pt Qgx5481 Hi intensity - 3.0-4.0 11/22/2016 Pt Cmi3086 PT 24.4 seconds 10/25/2016 Pt Hvw0149 INR 2.3 10/25/2016 Pt Cgh3978 Low Intensity - 1.5-2.0 10/25/2016 Pt Hbm2381 Mod intensity - 2.0-3.0 10/25/2016 Pt Ewd6316 Hi intensity - 3.0-4.0 10/25/2016 Pt Xmi0825 PT 23.5 seconds 09/04/2016 Pt Mre8711 INR 2.2 09/04/2016 Pt Kik1739 Low Intensity - 1.5-2.0 09/04/2016 Pt Kmt3519 Mod intensity - 2.0-3.0 09/04/2016 Pt Vuv7611 Hi intensity - 3.0-4.0 09/04/2016 Pt Xyn6784 PT 26.1 seconds 07/09/2016 Pt Hhc1865 INR 2.6 07/09/2016 Pt Plb0521 Low Intensity - 1.5-2.0 07/09/2016 Pt Rsm2369 Mod intensity - 2.0-3.0 07/09/2016 Pt Ael3715 Hi intensity - 3.0-4.0 07/09/2016 Pt Znc0974 PT 19.4 seconds 06/24/2016 Pt Bet7853 INR 1.7 06/24/2016 Pt Izn9365 Low Intensity - 1.5-2.0 06/24/2016 Pt Ibb8064 Mod intensity - 2.0-3.0 06/24/2016 Pt Glq6414 Hi intensity - 3.0-4.0 06/24/2016 Pt Mia8761 PT 28.9 seconds 04/26/2016 Pt Wbs1259 INR 2.9 04/26/2016 Pt Xqa6249 Low Intensity - 1.5-2.0 04/26/2016 Pt Tgo1684 Mod intensity - 2.0-3.0 04/26/2016 Pt Plh0131 Hi intensity - 3.0-4.0 04/26/2016 Tsh Ord6 hTSH II 1.21 uIU/mL 02/29/2016 Pt Djj9667 PT 21.8 seconds 02/29/2016 Pt Kyu5524 INR 2.0 02/29/2016 Pt Nra3716 Low Intensity - 1.5-2.0 02/29/2016 Pt Ktx8389 Mod intensity - 2.0-3.0 02/29/2016 Pt Dsz2855 Hi intensity - 3.0-4.0 02/29/2016 Lipid Ord30 [...] Ord2 RDW 16.2 % 06/30/2015 Comp Metabolic Wql936 NA 138 mEq/L 06/30/2015 Comp Metabolic Sdu625 K 4.8 mEq/L 06/30/2015 Comp Metabolic Nah579 CL 107 mEq/L 06/30/2015 Comp Metabolic Mjj753 CO2 27.0 mEq/L 06/30/2015 Comp Metabolic Zfa171 ANION GAP 9 06/30/2015 Comp Metabolic Yzj530 GLUCOSE 98 mg/dL 06/30/2015 Comp Metabolic Gjq169 Creat 1.8 mg/dL 06/30/2015 Comp Metabolic Kzf636 eGFR 40 ml/min/1.73m2 06/30/2015 Comp Metabolic Jwv712 BUN 20 mg/dL 06/30/2015 Comp Metabolic Rux394 B/C Ratio 11.1 Ratio 06/30/2015 Comp Metabolic Uei612 CALCIUM 9.1 mg/dL 06/30/2015 Comp Metabolic Gxv799 ALK PHOS 39 U/L 06/30/2015 Comp Metabolic Nqx145 AST(SGOT) 21 U/L 06/30/2015 Comp Metabolic Tcx899 ALT(SGPT) 23 U/L 06/30/2015 Comp Metabolic Akx470 BILI T 0.5 mg/dL 06/30/2015 Comp Metabolic Xjh946 ALBUMIN 4.0 g/dL 06/30/2015 Comp Metabolic Blf574 TPRO 6.6 g/dL 06/30/2015 Comp Metabolic Tyt696 GLOB 2.6 g/dL 06/30/2015 Comp Metabolic Agc541 A/G Ratio 1.5 Ratio 06/30/2015 Comp Metabolic Ufz665 Osmo 278 mOsmo 06/30/2015 Pt Ecc1523 PT 26.1 seconds 06/30/2015 Pt Bzc4396 INR 2.5 06/30/2015 Pt Aji6240 Low Intensity - 1.5-2.0 06/30/2015 Pt Pcg0862 Mod intensity - 2.0-3.0 06/30/2015 Pt Vqc4477 Hi intensity - 3.0-4.0 06/30/2015 Review of Systems System Result Effective Dates Constitutional No recent illness 04/03/2018 Constitutional No [...] Codes Date OCCULT BLOOD FECES CPT- 4: 51652 04/08/2018 PPPS, SUBSEQ VISIT CPT- 4: G0439 04/03/2018 PPPS, SUBSEQ VISIT CPT- 4: G0439 10/31/2017 PRESCRIP TRANSMIT VIA ERX SY CPT-4: G8553 09/22/2017 THER/PROPH/DIAG INJ SC/IM CPT-4: 90099 01/21/2017 TRIAMCINOLONE ACET INJ NOS CPT-4: J3301 01/21/2017 THER/PROPH/DIAG INJ SC/IM CPT-4: 46348 12/30/2016 ROCEPHIN, PER 250 MG CPT- 4: J0696 12/30/2016 PPPS, SUBSEQ VISIT CPT- 4: G0439 10/25/2016 ROCEPHIN, PER 250 MG CPT- 4: J0696 06/24/2016 THER/PROPH/DIAG INJ SC/IM CPT-4: 52883 06/24/2016 Vital Signs Date Vital 04/03/2018 Blood Pressure 1: 128/72 Code: 8480-6 BMI: 29.8 Code: 59719-8 Heart Rate 1: 60 bpm Height: 5'8" SpO2: 96% Weight: 196 lbs 03/31/2018 Blood Pressure 1: 128/76 Code: 8480-6 BMI: 29.8 Code: 95202-0 Heart Rate 1: 56 bpm Height: 5'8" SpO2: 98% Weight: 196 lbs 11/26/2017 Blood Pressure 1: 156/76 Code: 8480-6 BMI: 29.6 Code: 21221-5 Heart Rate 1: 57 bpm Height: 5'8" SpO2: 98% Weight: 195 lbs 10/31/2017 Blood Pressure 1: 136/74 Code: 8480-6 BMI: 29.5 Code: 43015-5 Heart Rate 1: 56 bpm Height: 5'8" SpO2: 95% Waist Measure (cm): 91 cm Weight: 194 lbs 10/07/2017 Blood Pressure 1: 136/72 Code: 8480-6 BMI: 30.3 Code: 94818-4 Heart Rate 1: 58 bpm Height: 5'8" SpO2: 96% Weight: 199 lbs 09/22/2017 Blood Pressure 1: 138/78 Code: 8480-6 BMI: 30.4 Code: 59826-8 Heart Rate 1: 60 bpm Height: 5'8" SpO2: 98% Temperature: 36.6 (C) / 97.9 (F) Weight: 200 lbs 05/08/2017 Blood Pressure 1: 128/80 Code: 8480-6 BMI: 30.0 Code: 78641-6 Heart Rate 1: 75 bpm Height: 5'8" SpO2: 98% Weight: 197 lbs 03/25/2017 Blood Pressure 1: 150/80 Code: 8480-6 BMI: 30.1 Code: 77825-8 Heart Rate 1: 53 bpm Height: 5'8" SpO2: 98% Weight: 198 lbs 01/21/2017 Blood Pressure 1: 156/88 Code: 8480-6 BMI: 29.8 Code: 01494-6 Heart Rate 1: 95 bpm Height: 5'8" SpO2: 98% Temperature: 36.9 (C) / 98.4 (F) Weight: 196 lbs 12/30/2016 Blood Pressure 1: 122/74 Code: 8480-6 BMI: 29.8 Code: 02686-2 Heart Rate 1: 60 bpm Height: 5'8" SpO2: 96% Temperature: 37.1 (C) / 98.8 (F) Weight: 196 lbs 12/26/2016 Blood Pressure 1: 142/74 Code: 8480-6 BMI: 29.8 Code: 66469-0 Heart Rate 1: 58 bpm Height: 5'8" SpO2: 96% Temperature: 36.7 (C) / 98.0 (F) Weight: 196 lbs 12/02/2016 Blood Pressure 1: 128/78 Code: 8480-6 BMI: 30.3 Code: 35858-6 Heart Rate 1: 49 bpm Height: 5'8" SpO2: 98% Temperature: 36.5 (C) / 97.7 (F) Weight: 199 lbs 11/21/2016 Blood Pressure 1: 130/68 Code: 8480-6 BMI: 30.3 Code: 07355-5 Heart Rate 1: 54 bpm Height: 5'8" SpO2: 98% Weight: 199 lbs 10/25/2016 Blood Pressure 1: 150/92 Code: 8480-6 BMI: 29.8 Code: 70329-4 Heart Rate 1: 54 bpm Height: 5'8" SpO2: 97% Waist Measure (cm): 97 cm Weight: 196 lbs 10/23/2016 Blood Pressure 1: 150/92 Code: 8480-6 BMI: 29.9 Code: 52510-8 Heart Rate 1: 54 bpm Height: 5'8" SpO2: 98% Weight: 196 lbs 8 oz 07/29/2016 Blood Pressure 1: 144/72 Code: 8480-6 BMI: 30.3 Code: 45697-1 Heart Rate 1: 54 bpm Height: 5'8" SpO2: 98% Weight: 199 lbs 06/24/2016 Blood Pressure 1: 132/78 Code: 8480-6 BMI: 29.5 Code: 83998-1 Heart Rate 1: 59 bpm Height: 5'8" SpO2: 94% Weight: 194 lbs 02/21/2016 Blood Pressure 1: 138/84 Code: 8480-6 BMI: 30.3 Code: 14159-6 Heart Rate 1: 64 bpm Height: 5'8" SpO2: 95% Weight: 199 lbs 10/18/2015 Blood Pressure 1: 154/84 Code: 8480-6 Blood Pressure 1: 138/72 Code: 8480-6 BMI: 30.4 Code: 65563-0 Heart Rate 1: 68 bpm Height: 5'8" SpO2: 97% Weight: 200 lbs 05/02/2015 Blood Pressure 1: 114/64 Code: 8480-6 BMI: 29.0 Code: 52003-5 Heart Rate 1: 62 bpm Height: 5'8" [...] data Encounters Encounter Performer Location Codes Date ([id number]) [id number] EST. PATIENT, LEVEL III Diagnosis: Low back pain[ICD10: M54.5] Diagnosis: Muscle spasm of back[ICD10: M62.830] Leidy Husain MD, [facility] CPT-4: 71145 03/31/2018 ([id number]) 71979 EST. PATIENT, LEVEL III Diagnosis: Actinic keratosis[ICD10: L57.0] Diagnosis: Other hypertrophic disorders of the skin[ICD10: L91.8] Amanda Husain MD, [facility] CPT-4: 81367 11/26/2017 ([id number]) 20180 EST. PATIENT, LEVEL IV Diagnosis: Essential (primary) hypertension[ICD10: I10] Diagnosis: Mild cognitive impairment, so stated[ICD10: G31.84] Amanda Husain MD, [facility] CPT-4: 49107 10/07/2017 ([id number]) 74342 EST. PATIENT, LEVEL III Diagnosis: Pneumonia due to other streptococci[ICD10: J15.4] Diagnosis: Cough[ICD10: R05] Amanda Husain MD, [facility] CPT-4: 86812 09/22/2017 [id number] EST. PATIENT, LEVEL IV Diagnosis: Left lower quadrant pain[ICD10: R10.32] Diagnosis: Other fatigue[ICD10: R53.83] Gabrielle Husain MD, [facility] CPT-4: 86146 05/08/2017 ([id number]) 23101 EST. PATIENT, LEVEL III Diagnosis: Essential (primary) hypertension[ICD10: I10] Amanda Husain MD, [facility] CPT-4: 31534 03/25/2017 ([id number]) 81995 EST. PATIENT, LEVEL III Diagnosis: Cough[ICD10: R05] Diagnosis: Allergic rhinitis due to pollen[ICD10: J30.1] Leidy Husain MD, [facility] CPT-4: 88808 01/21/2017 [id number] EST. PATIENT, LEVEL III Diagnosis: Other allergic rhinitis[ICD10: J30.89] Diagnosis: Cough[ICD10: R05] Gabrielle Husain MD, [facility] CPT-4: 89884 12/30/2016 ([id number]) 54367 EST. PATIENT, LEVEL III Diagnosis: Cough[ICD10: R05] Diagnosis: Pneumonia, unspecified organism[ICD10: J18.9] Leidy Husain MD, [facility] CPT-4: 83768 12/26/2016 ([id number]) 01835 EST. PATIENT, LEVEL III Diagnosis: Pneumonia due to other streptococci[ICD10: J15.4] Diagnosis: Cough[ICD10: R05] Amanda Husain MD, [facility] CPT-4: 83753 12/02/2016 ([id number]) 30855 EST. PATIENT, LEVEL III Diagnosis: Essential (primary) hypertension[ICD10: I10] Amanda Husain MD, [facility] CPT-4: 50275 11/21/2016 ([id number]) 74260 EST. PATIENT, LEVEL IV Diagnosis: Essential (primary) hypertension[ICD10: I10] Diagnosis: Mixed hyperlipidemia[ICD10: E78.2] Amanda Husain MD, [facility] CPT- 4: 61210 10/23/2016 79743 EST. PATIENT, LEVEL IV Diagnosis: Other allergic rhinitis[ICD10: J30.89] Diagnosis: Cough[ICD10: R05] Gabrielle Husain MD, [facility] CPT-4: 89900 07/29/2016 ([id number]) Miscellaneous no charge Diagnosis: Pneumonia, unspecified organism[ICD10: J18.9] [facility] CPT-4: 88458 06/27/2016 ([id number] 29028 EST. PATIENT, LEVEL IV Diagnosis: Essential (primary) hypertension[ICD10: I10] Diagnosis: Pneumonia, unspecified organism[ICD10: J18.9] Diagnosis: Cough[ICD10: R05] Diagnosis: Mixed hyperlipidemia[ICD10: E78.2] Amanda Husain MD, [facility] CPT- 4: 48156 06/24/2016 ([id number]) 22274 EST. PATIENT, LEVEL IV Diagnosis: Mixed hyperlipidemia[ICD10: E78.2] Diagnosis: Essential (primary) hypertension[ICD10: I10] Diagnosis: Gastro-esophageal reflux disease without esophagitis[ICD10: K21.9] Amanda Husain MD, [facility] CPT-4: 10640 02/21/2016 ([id number]) 42505 EST. PATIENT, LEVEL IV Diagnosis: Essential (primary) hypertension[ICD10: I10] Diagnosis: Mixed hyperlipidemia[ICD10: E78.2] Diagnosis: Chronic lymphocytic 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[ICD10: C91.10] Amanda Husain MD, [facility] CPT-4: 13486 10/18/2015 ([id number]) OFFICE VISIT, NEW - LEVEL 3 Diagnosis: Diverticulitis[ICD9: 562.11] Amanda Husain MD, [facility] CPT-4: 76715 05/02/2015 Plan of Care Planned Activity Notes [...] improve. 03/31/2018 Appointment: Leidy Angulo WPtel: [facility] [address] (15 min) Moderate 03/31/2018 Patient Education: Patient Medication Summary Completed 03/31/2018 Visit Plan: Wound Instructions - Pt was instructed to keep the wound clean, wash with antibacterial soap, use triple antibiotic ointment, call if redness, pustular drainage, or any other acute concerns. 11/26/2017 Appointment: Amanda Husain WPtel: [facility] Surgical Procedure 11/26/2017 Patient Education: Patient [...] care surrogate. 10/31/2017 Appointment: Leidy Angulo WPtel: [facility] [address] [facility] - Annual Wellness Visit 10/31/2017 Patient [...] loss. 10/07/2017 [id number] ([facility] Complex [...] illness. 09/22/2017 App[facility]ment: [id number] ([facility] min) Moderate [...] concerns. 05/08/2017 App[facility]ment: [phone] [employer] (30 min) Complex 05/08/2017 Patient Education: Patient [...] daily. 03/25/2017 Appointment: Amanda Husain WPtel: [phone] [phone] (15 min) Moderate 03/25/2017 Patient Education: Patient Medication Summary Completed 03/25/2017 Appointment: Leidy Angulo WPtel: [facility]1 [phone] (15 min) Moderate 01/31/2017 Visit Plan: URI/Allergies - Pt advised to increase fluids, vitamin C. Discussed natural and expected course of this diagnosis and need to alert me if symptoms do not follow expected course, or if any worse. RX sent to patient's pharmacy. 01/21/2017 Appointment: Leidy Angulo WPtel: [facility]0 [phone] (15 min) Moderate 01/21/2017 Patient Education: Patient [...] medication. 12/30/2016 Appointment: Leidy Angulo WPtel: [facility]4 [phone] (15 min) Moderate 12/30/2016 Appointment: Gabrielle Corona WPtel: [facility]7 [id number] (30 min) Complex 12/30/2016 Patient Education: Patient Medication Summary Completed 12/30/2016 Visit Plan: Pneumonia - Pt has been diagnosed with pneumonia by physical exam. Antibiotics ordered, pt advised on starting a probiotic, and to have his inr checked on Friday. The pt is aware of the diagnosis and the need for acute treatment of this illness. Discussed with Dr Rodrigue-hold amiodarone while on the levaquin. 12/26/2016 Appointment: Leidy Angulo WPtel: [phone] [phone] (15 min) Moderate 12/26/2016 Patient Education: Patient [...] at home. 11/21/2016 Appointment: Amanda Husain WPtel: [facility]0 [phone] (15 min) Moderate 11/21/2016 Patient Education: Patient [...] surrogate. 10/25/2016 Appointment: Leidy Angulo WPtel: [phone] [phone] [facility] - Annual Wellness Visit 10/25/2016 Patient [...] medications. 10/23/2016 Appointment: Amanda Husain WPtel: [phone] [facility] (15 min) Moderate 10/23/2016 Patient Education: Patient [...] concerns. 07/29/2016 Appointment: Gabrielle Corona WPtel: [phone] [phone] (15 min) Moderate 07/29/2016 Patient Education: Patient [...] to medications. 06/24/2016 Appointment: Amanda Husain WPtel: [address] [place], [place] [id number] (15 min) Moderate 06/24/2016 Patient Education: Patient [...] not improving. 02/21/2016 Appointment: Amanda Husain WPtel: [address] [place], [place] [id number] (15 min) Moderate 02/21/2016 Patient Education: Patient [...] Care Plan: COMPLETE CBC AUTOMATED LOINC : 52924-1 Ordered 05/02/2015 Care Plan: ASSAY OF TROPONIN QUANT Ordered 05/02/2015 Care Plan: ASSAY OF CK (CPK) Ordered 05/02/2015 Instructions Comment kenalog injection zyrtec 10mg daily call if [...] of approaching that level of memory loss. check INR today and - come by [...] to assure normal liver response to medications. zyrtec - daily for allergies If in [...] her DOPA paperwork for health care surrogate. [facility] [employer] [facility] - take three times daily x 7 days get a PT/INR check on of this week . Pneumonia - Pt has been diagnosed with pneumonia by physical exam. Antibiotics ordered, pt advised on starting a probiotic, and to have his inr checked on thursday of this week. The pt is aware [...] symptoms are not controlled with the medication. Increase the ramipril to 10mg daily. . [...]
[2019-05-19] MEDS ORDERED: ceFAZolin 2 GM/50 ML NS 50 ML ONE (11:41)
--- OUTSIDE RECORDS SUMMARY | 2019-05-19 11:41 | XMS REPORT | CCD ---
Author Author Amanda Celestin MD, [facility] Address [address] [place] [address] Phone Care Team Providers Care Moth Exterminator Name Role Phone PP Unavailable CCM Unavailable Summary Purpose Interface Exchange Insurance Providers Payer name Policy type / Coverage type Covered republican ID Effective Begin Date Effective End Date WPS Medicare Part B [id number] Unknown NJVC Life Insurance [id number] Unknown Family history Brother Diagnosis Age At [...] Unknown Retired 05/02/[address]: 1273117 Former smoker Quit in 1966 05/02/2015 Number [...] Instructions metoprolol tartrate 25 mg tablet RxNorm: 957407 Tablet(s) TAKE 1 TABLET BY MOUTH TWICE DAILY 10/16/2018 No Stop Date Active metoprolol tartrate 25 mg tablet RxNorm: 439172 TAKE 1 TABLET BY MOUTH TWICE DAILY 07/13/2018 10/15/2018 Inactive Trilipix 135 mg capsule,delayed release RxNorm: 424871 1 Capsule(s) PO daily 06/17/2018 10/14/2018 Inactive ramipril 10 mg capsule RxNorm: 508588 TAKE ONE CAPSULE BY MOUTH ONCE DAILY 06/15/2018 No Stop Date Active omeprazole 20 mg capsule,delayed release RxNorm: 377852 Capsule(s) TAKE ONE CAPSULE BY MOUTH ONCE DAILY 06/03/2018 No Stop Date Active omeprazole 20 mg capsule,delayed release RxNorm: 247687 Capsule(s) TAKE ONE CAPSULE BY MOUTH ONCE DAILY 06/02/2018 06/02/2018 Inactive metoprolol tartrate 25 mg tablet RxNorm: 481771 TAKE ONE TABLET BY MOUTH TWICE DAILY 02/16/2018 07/12/2018 Inactive omeprazole 20 mg capsule,delayed release RxNorm: 672720 TAKE ONE CAPSULE BY MOUTH ONCE DAILY 01/05/2018 06/01/2018 Inactive metoprolol tartrate 25 mg tablet RxNorm: 071143 TAKE ONE TABLET BY MOUTH TWICE DAILY 10/27/2017 02/15/2018 Inactive azithromycin 250 mg tablet RxNorm: 153584 1 Tablet(s) PO UD 2 tabs on day #1, then 1 pill daily x 4 days 09/22/2017 11/25/2017 Inactive omeprazole 20 mg capsule,delayed release RxNorm: 114500 TAKE ONE CAPSULE BY MOUTH ONCE DAILY 06/16/2017 12/12/2017 Inactive metronidazole 500 mg tablet RxNorm: 790182 1 Tablet(s) PO TID 05/08/2017 05/14/2017 Inactive ramipril 10 mg capsule RxNorm: 842741 1 Capsule(s) PO daily 03/25/2017 03/19/2018 Inactive Kenalog 40 mg/mL suspension for injection RxNorm: 0871905 Milliliter(s) Inj 01/21/2017 01/21/2017 Inactive ceftriaxone 500 mg solution for injection RxNorm: 4385864 Inj 12/30/2016 12/30/2016 Inactive Phenergan with Codeine Syrup RxNorm: 5-10 Milliliter(s) PO Q6 PRN 12/26/2016 No Stop Date Active Levaquin 500 mg tablet RxNorm: 509462 1 Tablet(s) PO daily 12/26/2016 01/01/2017 Inactive Tessangeetha Perles 100 mg capsule RxNorm: 870044 1 Capsule(s) PO TID as needed 12/26/2016 01/04/2017 Inactive prednisone 20 mg tablet RxNorm: 172262 1 Tablet(s) PO BID 12/26/2016 12/30/2016 Inactive omeprazole 20 mg capsule,delayed release RxNorm: 325852 TAKE ONE CAPSULE BY MOUTH ONCE DAILY 12/16/2016 06/13/2017 Inactive cefdinir 300 mg capsule RxNorm: 929480 1 Capsule(s) PO BID 12/02/2016 12/08/2016 Inactive azithromycin 250 mg tablet RxNorm: 296681 Tablet(s) 2 tabs on day #1, then one tab PO daily x 4 more days 12/02/2016 12/25/2016 Inactive metoprolol tartrate 25 mg tablet RxNorm: 551633 1 Tablet(s) PO BID 10/23/2016 10/17/2017 Inactive metoprolol tartrate 25 mg tablet RxNorm: 302546 1 Tablet(s) PO BID 10/23/2016 10/22/2016 Inactive ceftriaxone 500 mg solution for injection RxNorm: 0029167 Inj 06/24/2016 06/24/2016 Inactive cefdinir 300 mg capsule RxNorm: 986848 1 Capsule(s) PO BID 06/24/2016 06/30/2016 Inactive omeprazole 20 mg capsule,delayed release RxNorm: 510080 TAKE ONE CAPSULE BY MOUTH DAILY 06/07/2016 12/03/2016 Inactive omeprazole 20 mg capsule,delayed release RxNorm: 440575 TAKE ONE CAPSULE BY MOUTH DAILY 01/29/2016 05/27/2016 Inactive metoprolol tartrate 50 mg tablet RxNorm: 839945 Tablet(s) TAKE ONE TABLET BY MOUTH DAILY 10/11/2015 10/10/2015 Inactive metoprolol tartrate 50 mg tablet RxNorm: 210388 TAKE ONE TABLET BY MOUTH DAILY 10/11/2015 10/22/2016 Inactive omeprazole 20 mg capsule,delayed release RxNorm: 199432 TAKE ONE CAPSULE BY MOUTH DAILY 08/28/2015 01/24/2016 Inactive metoprolol tartrate 50 mg tablet RxNorm: 808287 TAKE ONE TABLET BY MOUTH DAILY 08/11/2015 10/09/2015 Inactive metoprolol tartrate 50 mg tablet RxNorm: 278049 1 Tablet(s) PO daily 06/14/2015 08/10/2015 Inactive omeprazole 20 mg capsule,delayed release RxNorm: 945035 1 Capsule(s) PO daily 05/29/2015 08/26/2015 Inactive omeprazole 20 mg capsule,delayed release RxNorm: 481274 1 Capsule(s) PO daily 05/29/2015 05/28/2015 Inactive metronidazole 500 mg tablet RxNorm: 730773 1 Tablet(s) PO TID 05/02/2015 05/08/2015 Inactive finasteride 5 mg tablet RxNorm: 630930 1 Tablet(s) PO daily No Start Date Active warfarin 5 mg tablet RxNorm: 486591 1 Tablet(s) PO daily No Start Date Active Aspirin Childrens 81 mg chewable tablet RxNorm: 731028 1 Tablet(s) PO daily No Start Date Active amiodarone 200 mg tablet RxNorm: 840021 1 Tablet(s) PO daily No Start Date Active vitamin E (dl, acetate) 1,000 unit capsule RxNorm: 890024 1 Capsule(s) PO daily No Start Date Active atorvastatin 80 mg tablet RxNorm: 330702 1 Tablet(s) PO daily No Start Date Active Fish Oil 120 mg-180 mg capsule RxNorm: 061062 1 Capsule(s) PO BID No Start Date 10/30/2017 Inactive metoprolol tartrate 50 mg tablet RxNorm: 415380 1 Tablet(s) PO daily No Start Date 06/13/2015 Inactive Zetia 10 mg tablet RxNorm: 546102 1 Tablet(s) PO daily No Start Date 10/17/2015 Inactive ramipril 5 mg capsule RxNorm: 133837 1 Capsule(s) PO daily No Start Date 03/24/2017 Inactive Tessalon Perles 100 mg capsule RxNorm: 178171 1 Capsule(s) PO TID as needed No Start Date 12/25/2016 Inactive omeprazole 20 mg capsule,delayed release RxNorm: 135639 1 Capsule(s) PO daily No Start Date 05/28/2015 Inactive Trilipix 135 mg capsule,delayed release RxNorm: 072658 1 Capsule(s) PO daily No Start Date 06/16/2018 Inactive Centrum Silver tablet RxNorm: 1 Tablet(s) PO daily No Start Date 10/30/2017 Inactive Medication Administered Medication Codes Instructions Start Date Status Kenalog 40 mg/mL suspension for injection RxNorm: 5044590 Milliliter 01/21/2017 No longer Active ceftriaxone 500 mg solution for injection RxNorm: 7019491 12/30/2016 No longer Active ceftriaxone 500 mg solution for injection RxNorm: 6978695 06/24/2016 No longer Active Immunizations Vaccine Codes [...] back pain ICD-10: M54.5 ICD-9: 724.2 03/31/2018 Actinic keratosis ICD-10: L57.0 ICD-9: 702.0 11/26/2017 Other hypertrophic disorders of the skin ICD-10: [...] Code Item Item Code Result Date Pt Kyu9814 PT 23.1 seconds 11/05/2018 Pt Myb7854 INR 2.1 11/05/2018 Pt Ziv9700 Low Intensity - 1.5-2.0 11/05/2018 Pt Dzi5151 Mod intensity - 2.0-3.0 11/05/2018 Pt Rjw8895 Hi intensity - 3.0-4.0 11/05/2018 Pt Jcp1441 PT 29.8 seconds 08/17/2018 Pt Oxn5781 INR 2.8 08/17/2018 Pt Azv1803 Low Intensity - 1.5-2.0 08/17/2018 Pt Pgy0513 Mod intensity - 2.0-3.0 08/17/2018 Pt And7428 Hi intensity - 3.0-4.0 08/17/2018 Random Urine Protein/Creatinine Ratio Ybs1450 U Prot 7.0 mg/dl 05/18/2018 Random Urine Protein/Creatinine Ratio Ojv3354 U CREAT 75.0 mg/dL 05/18/2018 Random Urine Protein/Creatinine Ratio Yxj8923 R MTP/Creat Ratio 0.09 05/18/2018 Tibc Ord40 Iron 68 ug/dl 05/18/2018 Tibc Ord40 UIBC 308 ug/dL 05/18/2018 Tibc Ord40 TIBC 376 ug/dL 05/18/2018 Tibc Ord40 Fe-%Sat 18.1 % 05/18/2018 Vitamin D 25 Oh Dny7421 VITAMIN D, 25 HYDROXY 27.40 ng/mL 05/18/2018 Parathyroid Hormone Orh624 PTH 36.20 pg/ml 05/18/2018 Uric Acid Ord77 Uric A 3.9 mg/dL 05/18/2018 Ferritin Ord22 FERRITIN 43.3 ng/mL 05/18/2018 Cbc With Differential Ord2 WBC 6.21 K/ul 05/18/2018 Cbc With Differential Ord2 RBC 4.66 M/ul 05/18/2018 Cbc With Differential Ord2 HGB 14.4 g/dl 05/18/2018 Cbc With Differential Ord2 Neut% 48.0 % 05/18/2018 Cbc With Differential Ord2 HCT 42.7 % 05/18/2018 Cbc With Differential Ord2 MCV 91.6 fl 05/18/2018 Cbc With Differential Ord2 Lymph% 31.2 % 05/18/2018 Cbc With Differential Ord2 MCH 30.9 pg 05/18/2018 Cbc With Differential Ord2 [place]% 13.8 % 05/18/2018 Cbc With Differential Ord2 [...] 1.94 K/ul 05/18/2018 Cbc With Differential Ord2 [place] ABS# 0.9 K/ul 05/18/2018 Cbc With Differential Ord2 Eos ABS# 0.4 K/ul 05/18/2018 Cbc With Differential Ord2 Baso ABS# 0.0 K/ul 05/18/2018 Pt Dol3022 PT 27.7 seconds 05/18/2018 Pt Uxc4655 INR 2.6 05/18/2018 Pt Avb4614 Low Intensity - 1.5-2.0 05/18/2018 Pt Rxo6186 Mod intensity - 2.0-3.0 05/18/2018 Pt Owt6355 Hi intensity - 3.0-4.0 05/18/2018 Urinalysis Ord28 U-Color Yellow 05/18/2018 Urinalysis [...] hours from collection if refrigerated) 05/18/2018 Renal Hrw437 NA 141 mEq/L 05/18/2018 Renal Oob797 K 4.0 mEq/L 05/18/2018 Renal Tpm679 CL 107 mEq/L 05/18/2018 Renal Ptu038 CO2 27.0 mEq/L 05/18/2018 Renal Fio698 ANION GAP 11 05/18/2018 Renal Ovv872 Osmo 282 mOsmo 05/18/2018 Renal Lwr135 GLUCOSE 83 mg/dL 05/18/2018 Renal Stg940 BUN 18 mg/dL 05/18/2018 Renal Dyr707 Creat 1.4 mg/dL 05/18/2018 Renal Ywn579 eGFR 55 ml/min/1.73m2 05/18/2018 Renal Yvb808 B/C Ratio 13.3 Ratio 05/18/2018 Renal Eca887 CALCIUM 9.0 mg/dL 05/18/2018 Renal Wkp438 PHOS 2.9 mg/dL 05/18/2018 Renal Mcu708 ALBUMIN 4.0 g/dL 05/18/2018 Metabolic Ord15 NA [...] Metabolic Ord15 CALCIUM 9.2 mg/dL 03/23/2018 Pt Aak9774 PT 29.0 seconds 03/13/2018 Pt Skr9559 INR 2.7 03/13/2018 Pt Xjr3652 Low Intensity - 1.5-2.0 03/13/2018 Pt Ris9099 Mod intensity - 2.0-3.0 03/13/2018 Pt Qeo3740 Hi intensity - 3.0-4.0 03/13/2018 Pt Bvu1094 PT 31.6 seconds 03/04/2018 Pt Hwj1906 INR 3.0 03/04/2018 Pt Kjt2358 Low Intensity - 1.5-2.0 03/04/2018 Pt Cfq4834 Mod intensity - 2.0-3.0 03/04/2018 Pt Zww0673 Hi intensity - 3.0-4.0 03/04/2018 Pt Umj2135 PT 33.3 seconds 01/29/2018 Pt Ycg3859 INR 3.2 01/29/2018 Pt Wyq3046 Low Intensity - 1.5-2.0 01/29/2018 Pt Pzu8282 Mod intensity - 2.0-3.0 01/29/2018 Pt Luf2278 Hi intensity - 3.0-4.0 01/29/2018 Pt Khp4673 PT 26.1 seconds 01/21/2018 Pt Krw8844 INR 2.4 01/21/2018 Pt Fmn1513 Low Intensity - 1.5-2.0 01/21/2018 Pt Yqj4551 Mod intensity - 2.0-3.0 01/21/2018 Pt Ijz7382 Hi intensity - 3.0-4.0 01/21/2018 Pt Asu8638 PT 35.7 seconds 01/09/2018 Pt Bqm5566 INR 3.5 01/09/2018 Pt Grx2290 Low Intensity - 1.5-2.0 01/09/2018 Pt Sou5307 Mod intensity - 2.0-3.0 01/09/2018 Pt Ztj9613 Hi intensity - 3.0-4.0 01/09/2018 Pt Etq6416 PT 23.8 seconds 12/04/2017 Pt Wxn9052 INR 2.1 12/04/2017 Pt Jyu1326 Low Intensity - 1.5-2.0 12/04/2017 Pt Zpr3249 Mod intensity - 2.0-3.0 12/04/2017 Pt Cvm4113 Hi intensity - 3.0-4.0 12/04/2017 Pt Dko9095 PT 32.3 seconds 11/12/2017 Pt Vev8705 INR 3.1 11/12/2017 Pt Xkb7795 Low Intensity - 1.5-2.0 11/12/2017 Pt Fni4391 Mod intensity - 2.0-3.0 11/12/2017 Pt Oxn2067 Hi intensity - 3.0-4.0 11/12/2017 Pt Ykk3240 PT 16.6 seconds 10/20/2017 Pt Qrl0470 INR 1.4 10/20/2017 Pt Mvp7891 Low Intensity - 1.5-2.0 10/20/2017 Pt Ihs2686 Mod intensity - 2.0-3.0 10/20/2017 Pt Sko2144 Hi intensity - 3.0-4.0 10/20/2017 Urinalysis Ord28 [...] hours from collection if refrigerated) 10/20/2017 Renal Kek837 NA 142 mEq/L 10/20/2017 Renal Tqi812 K 4.5 mEq/L 10/20/2017 Renal Ovz251 CL 107 mEq/L 10/20/2017 Renal Ngm900 CO2 28.0 mEq/L 10/20/2017 Renal Ljz193 ANION GAP 12 10/20/2017 Renal Cyo295 Osmo 288 mOsmo 10/20/2017 Renal Ukh110 GLUCOSE 96 mg/dL 10/20/2017 Renal Psq122 BUN 27 mg/dL 10/20/2017 Renal Hyk553 Creat 1.6 mg/dL 10/20/2017 Renal Qjm397 eGFR 46 ml/min/1.73m2 10/20/2017 Renal Buz538 B/C Ratio 17.2 Ratio 10/20/2017 Renal Rze461 CALCIUM 9.4 mg/dL 10/20/2017 Renal Ymi607 PHOS 3.0 mg/dL 10/20/2017 Renal Oih774 ALBUMIN 4.2 g/dL 10/20/2017 Pt Fvi9605 PT 31.2 seconds 10/17/2017 Pt Qap6978 INR 3.0 10/17/2017 Pt Boi2998 Low Intensity - 1.5-2.0 10/17/2017 Pt Qfy7477 Mod intensity - 2.0-3.0 10/17/2017 Pt Pml1879 Hi intensity - 3.0-4.0 10/17/2017 Cbc With [...] 31.5 pg 05/08/2017 Cbc With Differential Ord2 [place]% 13.5 % 05/08/2017 Cbc With Differential Ord2 [...] 1.29 K/ul 05/08/2017 Cbc With Differential Ord2 [place] ABS# 1.1 K/ul 05/08/2017 Cbc With Differential Ord2 Eos ABS# 0.2 K/ul 05/08/2017 Cbc With Differential Ord2 Baso ABS# 0.0 K/ul 05/08/2017 Comp Metabolic Lqr514 NA 139 mEq/L 05/08/2017 Comp Metabolic Mlt170 K 4.1 mEq/L 05/08/2017 Comp Metabolic Dqt468 CL 103 mEq/L 05/08/2017 Comp Metabolic Uam276 CO2 28.0 mEq/L 05/08/2017 Comp Metabolic Jnf857 ANION GAP 12 05/08/2017 Comp Metabolic Pox242 GLUCOSE 75 mg/dL 05/08/2017 Comp Metabolic Hmk184 Creat 1.3 mg/dL 05/08/2017 Comp Metabolic Kka959 eGFR 55 ml/min/1.73m2 05/08/2017 Comp Metabolic Iew225 BUN 20 mg/dL 05/08/2017 Comp Metabolic Oeh634 B/C Ratio 14.9 Ratio 05/08/2017 Comp Metabolic Klx744 CALCIUM 8.8 mg/dL 05/08/2017 Comp Metabolic Gbb823 ALK PHOS 51 U/L 05/08/2017 Comp Metabolic Omn446 AST(SGOT) 30 U/L 05/08/2017 Comp Metabolic Oik595 ALT(SGPT) 31 U/L 05/08/2017 Comp Metabolic Pbs288 BILI T 0.9 mg/dL 05/08/2017 Comp Metabolic Zhg849 ALBUMIN 4.0 g/dL 05/08/2017 Comp Metabolic Pme052 TPRO 6.5 g/dL 05/08/2017 Comp Metabolic Wxa687 GLOB 2.6 g/dL 05/08/2017 Comp Metabolic Nvo865 A/G Ratio 1.5 Ratio 05/08/2017 Comp Metabolic Iur604 Osmo 279 mOsmo 05/08/2017 Pt Vmy9401 PT 22.7 seconds 11/22/2016 Pt Wcu3930 INR 2.1 11/22/2016 Pt Nsd2562 Low Intensity - 1.5-2.0 11/22/2016 Pt Dbb5582 Mod intensity - 2.0-3.0 11/22/2016 Pt Iyh1467 Hi intensity - 3.0-4.0 11/22/2016 Pt Seg1556 PT 24.4 seconds 10/25/2016 Pt Sad3604 INR 2.3 10/25/2016 Pt Nbz7112 Low Intensity - 1.5-2.0 10/25/2016 Pt Zrv1185 Mod intensity - 2.0-3.0 10/25/2016 Pt Fwr1285 Hi intensity - 3.0-4.0 10/25/2016 Pt Tgq0218 PT 23.5 seconds 09/04/2016 Pt Aua0262 INR 2.2 09/04/2016 Pt Lrq2331 Low Intensity - 1.5-2.0 09/04/2016 Pt Hiy0692 Mod intensity - 2.0-3.0 09/04/2016 Pt Ycu3820 Hi intensity - 3.0-4.0 09/04/2016 Pt Dow5598 PT 26.1 seconds 07/09/2016 Pt Pvs9852 INR 2.6 07/09/2016 Pt Dwx0773 Low Intensity - 1.5-2.0 07/09/2016 Pt Rfd2109 Mod intensity - 2.0-3.0 07/09/2016 Pt Rwl5602 Hi intensity - 3.0-4.0 07/09/2016 Pt Rrm1650 PT 19.4 seconds 06/24/2016 Pt Pse7645 INR 1.7 06/24/2016 Pt Tpv8143 Low Intensity - 1.5-2.0 06/24/2016 Pt Nla4795 Mod intensity - 2.0-3.0 06/24/2016 Pt Nrg2605 Hi intensity - 3.0-4.0 06/24/2016 Pt Kqv0064 PT 28.9 seconds 04/26/2016 Pt Ipz6039 INR 2.9 04/26/2016 Pt Akb7657 Low Intensity - 1.5-2.0 04/26/2016 Pt Cgm3295 Mod intensity - 2.0-3.0 04/26/2016 Pt Cnh7786 Hi intensity - 3.0-4.0 04/26/2016 Lipid Ord30 CHOL 181 mg/dL 02/29/2016 Lipid Ord30 HDL 33.0 mg/dl 02/29/2016 Lipid Ord30 TRIG 248 mg/dL 02/29/2016 Lipid Ord30 LDL 98 mg/dL 02/29/2016 Lipid Ord30 C/HDL 5.5 Ratio 02/29/2016 Tsh Ord6 hTSH II 1.21 uIU/mL 02/29/2016 Pt Dye9940 PT 21.8 seconds 02/29/2016 Pt Ute3343 INR 2.0 02/29/2016 Pt Wqy4851 Low Intensity - 1.5-2.0 02/29/2016 Pt Hor8155 Mod intensity - 2.0-3.0 02/29/2016 Pt Fab5889 Hi intensity - 3.0-4.0 02/29/2016 Cbc With [...] Differential Ord2 RDW 16.2 % 06/30/2015 Pt Ffw5993 PT 26.1 seconds 06/30/2015 Pt Fih6693 INR 2.5 06/30/2015 Pt Nrk8076 Low Intensity - 1.5-2.0 06/30/2015 Pt Rwj4525 Mod intensity - 2.0-3.0 06/30/2015 Pt Ywm6766 Hi intensity - 3.0-4.0 06/30/2015 Comp Metabolic Ynd758 NA 138 mEq/L 06/30/2015 Comp Metabolic Wro435 K 4.8 mEq/L 06/30/2015 Comp Metabolic Pvl783 CL 107 mEq/L 06/30/2015 Comp Metabolic Ggt591 CO2 27.0 mEq/L 06/30/2015 Comp Metabolic Erg880 ANION GAP 9 06/30/2015 Comp Metabolic Jir923 GLUCOSE 98 mg/dL 06/30/2015 Comp Metabolic Muj106 Creat 1.8 mg/dL 06/30/2015 Comp Metabolic Djg512 eGFR 40 ml/min/1.73m2 06/30/2015 Comp Metabolic Ixn274 BUN 20 mg/dL 06/30/2015 Comp Metabolic Jci636 B/C Ratio 11.1 Ratio 06/30/2015 Comp Metabolic Erj160 CALCIUM 9.1 mg/dL 06/30/2015 Comp Metabolic Maz433 ALK PHOS 39 U/L 06/30/2015 Comp Metabolic Mzy685 AST(SGOT) 21 U/L 06/30/2015 Comp Metabolic Xve954 ALT(SGPT) 23 U/L 06/30/2015 Comp Metabolic Wrd415 BILI T 0.5 mg/dL 06/30/2015 Comp Metabolic Kym639 ALBUMIN 4.0 g/dL 06/30/2015 Comp Metabolic Yuy143 TPRO 6.6 g/dL 06/30/2015 Comp Metabolic Vod767 GLOB 2.6 g/dL 06/30/2015 Comp Metabolic Gsz657 A/G Ratio 1.5 Ratio 06/30/2015 Comp Metabolic Avl370 Osmo 278 mOsmo 06/30/2015 Review of Systems [...] Codes Date OCCULT BLOOD FECES CPT- 4: 99426 04/08/2018 PPPS, SUBSEQ VISIT CPT- 4: G0439 04/03/2018 PPPS, SUBSEQ VISIT CPT- 4: G0439 10/31/2017 PRESCRIP TRANSMIT VIA ERX SY CPT-4: G8553 09/22/2017 THER/PROPH/DIAG INJ SC/IM CPT-4: 22525 01/21/2017 TRIAMCINOLONE ACET INJ NOS CPT-4: J3301 01/21/2017 THER/PROPH/DIAG INJ SC/IM CPT-4: 53826 12/30/2016 ROCEPHIN, PER 250 MG CPT- 4: J0696 12/30/2016 PPPS, SUBSEQ VISIT CPT- 4: G0439 10/25/2016 ROCEPHIN, PER 250 MG CPT- 4: J0696 06/24/2016 THER/PROPH/DIAG INJ SC/IM CPT-4: 43922 06/24/2016 Vital Signs Date Vital 04/03/2018 Blood Pressure 1: 128/72 Code: 8480-6 BMI: 29.8 Code: 85531-3 Heart Rate 1: 60 bpm Height: 5'8" SpO2: 96% Weight: 196 lbs 03/31/2018 Blood Pressure 1: 128/76 Code: 8480-6 BMI: 29.8 Code: 67619-5 Heart Rate 1: 56 bpm Height: 5'8" SpO2: 98% Weight: 196 lbs 11/26/2017 Blood Pressure 1: 156/76 Code: 8480-6 BMI: 29.6 Code: 14108-5 Heart Rate 1: 57 bpm Height: 5'8" SpO2: 98% Weight: 195 lbs 10/31/2017 Blood Pressure 1: 136/74 Code: 8480-6 BMI: 29.5 Code: 29469-4 Heart Rate 1: 56 bpm Height: 5'8" SpO2: 95% Waist Measure (cm): 91 cm Weight: 194 lbs 10/07/2017 Blood Pressure 1: 136/72 Code: 8480-6 BMI: 30.3 Code: 85557-9 Heart Rate 1: 58 bpm Height: 5'8" SpO2: 96% Weight: 199 lbs 09/22/2017 Blood Pressure 1: 138/78 Code: 8480-6 BMI: 30.4 Code: 87381-3 Heart Rate 1: 60 bpm Height: 5'8" SpO2: 98% Temperature: 36.6 (C) / 97.9 (F) Weight: 200 lbs 05/08/2017 Blood Pressure 1: 128/80 Code: 8480-6 BMI: 30.0 Code: 07522-3 Heart Rate 1: 75 bpm Height: 5'8" SpO2: 98% Weight: 197 lbs 03/25/2017 Blood Pressure 1: 150/80 Code: 8480-6 BMI: 30.1 Code: 09053-4 Heart Rate 1: 53 bpm Height: 5'8" SpO2: 98% Weight: 198 lbs 01/21/2017 Blood Pressure 1: 156/88 Code: 8480-6 BMI: 29.8 Code: 75031-9 Heart Rate 1: 95 bpm Height: 5'8" SpO2: 98% Temperature: 36.9 (C) / 98.4 (F) Weight: 196 lbs 12/30/2016 Blood Pressure 1: 122/74 Code: 8480-6 BMI: 29.8 Code: 42125-3 Heart Rate 1: 60 bpm Height: 5'8" SpO2: 96% Temperature: 37.1 (C) / 98.8 (F) Weight: 196 lbs 12/26/2016 Blood Pressure 1: 142/74 Code: 8480-6 BMI: 29.8 Code: 10018-9 Heart Rate 1: 58 bpm Height: 5'8" SpO2: 96% Temperature: 36.7 (C) / 98.0 (F) Weight: 196 lbs 12/02/2016 Blood Pressure 1: 128/78 Code: 8480-6 BMI: 30.3 Code: 59451-2 Heart Rate 1: 49 bpm Height: 5'8" SpO2: 98% Temperature: 36.5 (C) / 97.7 (F) Weight: 199 lbs 11/21/2016 Blood Pressure 1: 130/68 Code: 8480-6 BMI: 30.3 Code: 62574-4 Heart Rate 1: 54 bpm Height: 5'8" SpO2: 98% Weight: 199 lbs 10/25/2016 Blood Pressure 1: 150/92 Code: 8480-6 BMI: 29.8 Code: 00889-2 Heart Rate 1: 54 bpm Height: 5'8" SpO2: 97% Waist Measure (cm): 97 cm Weight: 196 lbs 10/23/2016 Blood Pressure 1: 150/92 Code: 8480-6 BMI: 29.9 Code: 35278-3 Heart Rate 1: 54 bpm Height: 5'8" SpO2: 98% Weight: 196 lbs 8 oz 07/29/2016 Blood Pressure 1: 144/72 Code: 8480-6 BMI: 30.3 Code: 60698-9 Heart Rate 1: 54 bpm Height: 5'8" SpO2: 98% Weight: 199 lbs 06/24/2016 Blood Pressure 1: 132/78 Code: 8480-6 BMI: 29.5 Code: 33191-3 Heart Rate 1: 59 bpm Height: 5'8" SpO2: 94% Weight: 194 lbs 02/21/2016 Blood Pressure 1: 138/84 Code: 8480-6 BMI: 30.3 Code: 67268-7 Heart Rate 1: 64 bpm Height: 5'8" SpO2: 95% Weight: 199 lbs 10/18/2015 Blood Pressure 1: 154/84 Code: 8480-6 Blood Pressure 1: 138/72 Code: 8480-6 BMI: 30.4 Code: 53489-3 Heart Rate 1: 68 bpm Height: 5'8" SpO2: 97% Weight: 200 lbs 05/02/2015 Blood Pressure 1: 114/64 Code: 8480-6 BMI: 29.0 Code: 06409-4 Heart Rate 1: 62 bpm Height: 5'8" [...] data Encounters Encounter Performer Location Codes Date ([id number]) [id number] EST. PATIENT, LEVEL III Diagnosis: Low back pain[ICD10: M54.5] Diagnosis: Muscle spasm of back[ICD10: M62.830] [facility] CPT-4: 70042 03/31/2018 ([id number]) 94078 EST. PATIENT, LEVEL III Diagnosis: Actinic keratosis[ICD10: L57.0] Diagnosis: Other hypertrophic disorders of the skin[ICD10: L91.8] [facility] CPT-4: 86322 11/26/2017 ([id number]) 21690 EST. PATIENT, LEVEL IV Diagnosis: Essential (primary) hypertension[ICD10: I10] Diagnosis: Mild cognitive impairment, so stated[ICD10: G31.84] Amanda Husain MD [facility] CPT-4: 50405 10/07/2017 ([id number]) 67124 EST. PATIENT, LEVEL III Diagnosis: Pneumonia due to other streptococci[ICD10: J15.4] Diagnosis: Cough[ICD10: R05] Amanda Husain MD [facility] CPT-4: 81139 09/22/2017 [id number] EST. PATIENT, LEVEL IV Diagnosis: Left lower quadrant pain[ICD10: R10.32] Diagnosis: Other fatigue[ICD10: R53.83] Gabrielle Husain MD [facility] CPT-4: 98228 05/08/2017 ([id number]) 09399 EST. PATIENT, LEVEL III Diagnosis: Essential (primary) hypertension[ICD10: I10] Amanda Husain MD [facility] CPT-4: 24827 03/25/2017 ([id number]) 86961 EST. PATIENT, LEVEL III Diagnosis: Cough[ICD10: R05] Diagnosis: Allergic rhinitis due to pollen[ICD10: J30.1] Leidy Husain MD [facility] CPT-4: 07797 01/21/2017 [id number] EST. PATIENT, LEVEL III Diagnosis: Other allergic rhinitis[ICD10: J30.89] Diagnosis: Cough[ICD10: R05] Gabrielle Husain MD [facility] CPT-4: 68294 12/30/2016 ([id number]) 15236 EST. PATIENT, LEVEL III Diagnosis: Cough[ICD10: R05] Diagnosis: Pneumonia, unspecified organism[ICD10: J18.9] Leidy Husain MD [facility] CPT-4: 54316 12/26/2016 ([id number]) 19529 EST. PATIENT, LEVEL III Diagnosis: Pneumonia due to other streptococci[ICD10: J15.4] Diagnosis: Cough[ICD10: R05] Amanda Husain MD [facility] CPT-4: 93865 12/02/2016 ([id number]) 10414 EST. PATIENT, LEVEL III Diagnosis: Essential (primary) hypertension[ICD10: I10] Amanda Husain MD [facility] CPT-4: 50249 11/21/2016 ([id number]) 14223 EST. PATIENT, LEVEL IV Diagnosis: Essential (primary) hypertension[ICD10: I10] Diagnosis: Mixed hyperlipidemia[ICD10: E78.2] Amanda Husain MD, [facility] CPT- 4: 46351 10/23/2016 [id number] EST. PATIENT, LEVEL IV Diagnosis: Other allergic rhinitis[ICD10: J30.89] Diagnosis: Cough[ICD10: R05] Gabrielle Husain MD [facility] CPT-4: 89522 07/29/2016 ([id number]) Miscellaneous no charge Diagnosis: Pneumonia, unspecified organism[ICD10: J18.9] Gabrielle Husain MD, [facility] CPT-4: 99481 06/27/2016 ([id number]) 53319 EST. PATIENT, LEVEL IV Diagnosis: Essential (primary) hypertension[ICD10: I10] Diagnosis: Pneumonia, unspecified organism[ICD10: J18.9] Diagnosis: Cough[ICD10: R05] Diagnosis: Mixed hyperlipidemia[ICD10: E78.2] Amanda Husain MD, [facility] CPT- 4: 84951 06/24/2016 ([id number]) 89299 EST. PATIENT, LEVEL IV Diagnosis: Mixed hyperlipidemia[ICD10: E78.2] Diagnosis: Essential (primary) hypertension[ICD10: I10] Diagnosis: Gastro-esophageal reflux disease without esophagitis[ICD10: K21.9] Amanda Husain MD, [facility] CPT-4: 17654 02/21/2016 ([id number]) 74192 EST. 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 03/31/2018 Appointment: Leidy Angulo WPtel: [id number] [place] [address] (15 min) Moderate 03/31/2018 Patient Education: Patient Medication Summary Completed 03/31/2018 Visit Plan: Wound Instructions - Pt was instructed to keep the wound clean, wash with antibacterial soap, use triple antibiotic ointment, call if redness, pustular drainage, or any other acute concerns. 11/26/2017 Appointment: Amanda Husain WPtel: [id number] Surgical Procedure 11/26/2017 Patient Education: Patient [...] care surrogate. 10/31/2017 Appointment: Leidy Angulo WPtel: [address] [id number] [place] [address] - Annual Wellness Visit 10/31/2017 Patient Education: [...] loss. 10/07/2017 Appointment: Amanda Husain WPtel: [id number] [id number] (30 min) Complex 10/07/2017 Patient Education: Patient Medication Summary Completed 10/07/2017 Patient Education: Obesity Completed 10/07/2017 Patient Education: Hypertension Completed 10/07/2017 Visit Plan: Pneumonia - Pt has been diagnosed with pneumonia by physical exam. Antibiotics have been ordered. The pt is aware of the diagnosis and the need for acute treatment of this illness. 09/22/2017 Appointment: Amanda Husain WPtel: [phone] [phone] (15 min) Moderate 09/22/2017 Patient Education: [...] any questions or concerns. 05/08/2017 Appointment: Gabrielle Corona: [phone] [phone] (30 min) Complex 05/08/2017 Patient [...] 10mg daily. 03/25/2017 Appointment: Amanda Husain WPtel: [facility]5 [facility] (15 min) Moderate 03/25/2017 Patient Education: Patient Medication Summary Completed 03/25/2017 Appointment: Leidy Angulo WPtel: [facility]5 [phone] (15 min) Moderate 01/31/2017 Visit Plan: URI/Allergies - Pt advised to increase fluids, vitamin C. Discussed natural and expected course of this diagnosis and need to alert me if symptoms do not follow expected course, or if any worse. RX sent to patient's pharmacy. 01/21/2017 Appointment: Leidy Angulo WPtel: [facility]5 [phone] (15 min) Moderate 01/21/2017 Patient [...] not controlled with the medication. 12/30/2016 Appointment: Lediy Angulo WPtel: [facility]5 [phone] (15 min) Moderate 12/30/2016 Appointment: Gabrielle Corona WPtel: [phone] (30 min) Complex 12/30/2016 Patient Education: [...] the levaquin. 12/26/2016 Appointment: Leidy Angulo WPtel: [facility]5 [phone] (15 min) Moderate 12/26/2016 Patient [...] at home. 11/21/2016 Appointment: Amanda Husain WPtel: [facility]5 [facility] (15 min) Moderate 11/21/2016 Patient Education: Patient [...] surrogate. 10/25/2016 [facility]ment: [phone] [place] [address] - Annual Wellness Visit 10/25/2016 Patient Education: [...] to medications. 10/23/2016 Appointment: Amanda Husain WPtel: [facility]5 [facility] (15 min) Moderate 10/23/2016 Patient Education: [...] notify clinic with any concerns. 07/29/2016 Appointment: CjGabrielle WPtel: [facility] [place] (15 min) Moderate 07/29/2016 Patient Education: [...] normal liver response to medications. 06/24/2016 Appointment: Barco Amanda WPtel: [phone] [phone] (15 min) Moderate 06/24/2016 Patient Education: [...] 02/21/2016 Appointment: Amanda Husain WPtel: [phone] [facility] (15 min) Moderate 02/21/2016 Patient Education: [...] Care Plan: COMPLETE CBC AUTOMATED LOINC : 95085-6 Ordered 05/02/2015 Care Plan: ASSAY OF TROPONIN [...] her D[employer] paperwork for health care surrogate. [employer] or [employer] [facility] - take three times daily x [...] change in blood pressure readings at home. HOLD AMIODARONE X 7 DAYS LEVAQUIN 500MG [...] Dr Husain-hold amiodarone while on the levaquin. Follow up appointment with Dr. Cantu on [...] or with any questions or concerns. . Hypertension - well controlled - [...] office if the symptoms are not improving. check INR today and - come by [...]
[2019-05-19] MEDS ORDERED: BUP/EPI 0.5% 1:200,000 (SENSORCAINE) 30 ML VIAL ONE (11:47)
--- OUTSIDE RECORDS SUMMARY | 2019-05-19 11:51 | XMS REPORT | Continuity of Care Document ---
Author Organization Unknown Address Unknown Allergies Active Description Code Type Severity Reaction Onset Reported/Identified Relationship to Patient Clinical Status Yes No Known Drug Allergies [id number] Drug Allergy Unknown N/A 05/11/2019 Medications There is no data. Problems Date Dx Coded Attending Type Code Diagnosis Diagnosed By 10/16/1200 KEN PRABHAKAR DO Ot M25.511 PAIN IN RIGHT SHOULDER 10/16/1200 KEN PRABHAKAR DO Ot M75.111 INCOMPLETE ROTATR-CUFF TEAR/RUPTR OF R S 10/16/1247 JEFFERY AYALA APRN Ot M17.12 UNILATERAL PRIMARY OSTEOARTHRITIS, LEFT 10/16/1328 KEN PRABHAKAR DO Ot Z47.1 AFTERCARE FOLLOWING JOINT REPLACEMENT VINCENT 10/16/1328 KEN PRABHAKAR DO Ot Z96.651 PRESENCE OF RIGHT ARTIFICIAL KNEE JOINT 09/03/2010 Ot 562.10 09/03/2010 Ot 569.0 09/03/2010 Ot V12.72 09/03/2010 Ot V67.09 01/25/2011 Ot 272.4 HYPERLIPIDEMIA NEC/NOS 01/25/2011 Ot 401.9 HYPERTENSION NOS 01/25/2011 Ot 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,SUBENDO INFARCT,EPISO 01/25/2011 Ot 414.01 CORONARY ATHEROSCLEROSIS OF [place] CORON 01/25/2011 Ot 433.10 CAROTID ARTERY OCCLUSION W O CEREBRAL IN 01/25/2011 Ot 786.09 RESPIRATORY ABNORM NEC 01/25/2011 Ot 786.50 CHEST PAIN NOS 01/25/2011 Ot V45.82 PERCUTANEOUS TRANSLUM CORON ANGIOPLASTY 04/02/2011 Ot 272.4 HYPERLIPIDEMIA NEC/NOS 04/02/2011 Ot 401.9 HYPERTENSION NOS 04/02/2011 Ot 414.01 CORONARY ATHEROSCLEROSIS OF [place] CORON 04/02/2011 Ot 427.31 ATRIAL FIBRILLATION 04/02/2011 Ot 433.10 CAROTID ARTERY OCCLUSION W O CEREBRAL IN 04/02/2011 Ot 443.9 PERIPH VASCULAR DIS NOS 04/02/2011 Ot V45.82 PERCUTANEOUS TRANSLUM CORON ANGIOPLASTY 04/02/2011 Ot V58.66 LONG-TERM (CURRENT) USE OF ASPIRIN 04/02/2011 Ot V58.69 OTH MED,LT,CURRENT USE 06/04/2011 Ot V45.82 PERCUTANEOUS TRANSLUM CORON ANGIOPLASTY 06/04/2011 Ot V57.89 REHABILITATION PROC NEC 07/12/2011 Ot V45.82 PERCUTANEOUS TRANSLUM CORON ANGIOPLASTY 07/12/2011 Ot V57.89 REHABILITATION PROC NEC 08/24/2012 Ot 562.10 DIVERTICULOSIS COLON (W/O MENT OF HEMORR 08/24/2012 Ot V12.72 PERSONAL HISTORY OF COLONIC POLYPS 08/24/2012 Ot V58.66 LONG-TERM (CURRENT) USE OF ASPIRIN 08/24/2012 Ot V58.69 OTH MED,LT,CURRENT USE 03/09/2013 Ot 272.4 HYPERLIPIDEMIA NEC/NOS 03/09/2013 Ot 401.9 HYPERTENSION NOS 03/09/2013 Ot 414.01 CORONARY ATHEROSCLEROSIS OF [place] CORON 03/09/2013 Ot 427.31 ATRIAL FIBRILLATION 03/09/2013 Ot 427.69 PREMATURE BEATS NEC 03/09/2013 Ot 427.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 03/09/2013 Ot 433.10 CAROTID ARTERY OCCLUSION W O CEREBRAL IN 03/09/2013 Ot 600.00 HYPERTROPHY (BENIGN) OF PROSTATE W/O URI 03/09/2013 Ot V45.82 PERCUTANEOUS TRANSLUM CORON ANGIOPLASTY 03/09/2013 Ot V58.61 ANTICOAGULANTS,LT,CURRENT USE 03/09/2013 Ot V58.66 LONG-TERM (CURRENT) USE OF ASPIRIN 03/09/2013 Ot V58.69 OTH MED,LT,CURRENT USE 04/10/2013 CAT PERES MD Ot 272.4 HYPERLIPIDEMIA NEC/NOS 04/10/2013 CAT PERES MD Ot 285.9 ANEMIA NOS 04/10/2013 ACT PERES MD Ot 401.9 HYPERTENSION NOS 04/10/2013 [...] V57.89 REHABILITATION PROC NEC 05/10/2014 MOSHE MARIE SAILING OFFICER Ot 327.23 OBSTRUCTIVE SLEEP APNEA (ADULT) (PEDIATR 02/03/2015 Ot 211.3 BENIGN NEOPLASM LG BOWEL 02/03/2015 Ot 562.10 DIVERTICULOSIS COLON (W/O MENT OF HEMORR 02/03/2015 Ot V76.51 SCREEN MAL NEOP- COLON 03/03/2015 Ot V72.84 05/03/2015 Ot V72.84 05/03/2015 [...] 427.81 07/14/2015 Ot 785.1 07/14/2015 OSCAR VALENCIA CRYSTAL FLAT GRINDER Ot 414.01 07/14/2015 OSCAR VALENCIA CRYSTAL FLAT GRINDER Ot 427.31 07/14/2015 OSCAR VALENCIA CRYSTAL FLAT GRINDER Ot V45.81 07/14/2015 ANATOLIY LUNA CRYSTAL FLAT GRINDER Ot 786.09 07/14/2015 ANATOLIY LUNA CRYSTAL FLAT GRINDER Ot 786.2 07/14/2015 Ot V72.84 07/14/2015 DEIDRE AMIN APRN Ot 412 07/14/2015 DEIDRE AMIN ETL TESTER Ot 780.8 07/14/2015 ALEX CHANDLER CRYSTAL FLAT GRINDER Ot 288.61 07/18/2015 ALEX CHANDLER CRYSTAL FLAT GRINDER Ot 288.61 07/26/2015 Ot V72.84 08/16/2015 PEBBLES FRANCO, LUIGI Foote Ot 204.10 CHRONIC LYMPHOID LEUKEMIA, 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 08/16/2015 LUIGI ROGEL MD Ot 272.4 HYPERLIPIDEMIA NEC/NOS 08/16/2015 PEBBLES FRANCO, LUIGI Foote Ot 401.9 HYPERTENSION NOS 08/16/2015 LUIGI ROGEL MD Ot 414.00 CORON ATHEROSCLER NOS TYPE VESSEL, NATIV 08/16/2015 LUIGI ROGEL MD Ot 427.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 08/16/2015 LUIGI ROGEL MD Ot 447.9 ARTERIAL DISEASE NOS 08/16/2015 LUIGI ROGEL MD Ot V45.81 AORTOCORONARY BYPASS 08/16/2015 PEBBLES FRANCO, LUIGI Foote Ot V58.69 OT MED,LT,CURRENT USE 08/22/2015 PEBBLES FRANCO, LUIGI Foote Ot 204.10 08/22/2015 LUIGI ROGEL MD Ot 272.4 08/22/2015 PEBBLES FRANCO, LUIGI Foote Ot 401.9 08/22/2015 PEBBLES FRANCO, LUIGI Foote Ot 414.00 08/22/2015 PEBBLES FRANCO, LUIGI Foote Ot 427.81 08/22/2015 PEBBLES FRANCO, LUIGI Foote Ot 447.9 08/22/2015 PEBBLES FRANCO, LUIGI Foote Ot V45.81 08/22/2015 LUIGI ROGEL MD Ot V58.69 08/23/2015 PEBBLES FRANCO, LUIGI Foote Ot 204.10 08/23/2015 PEBBLES FRANCO, LUIGI Foote Ot 562.10 08/23/2015 LUIGI ROGEL MD Ot 571.8 09/15/2015 CHARLOTTE FRANCO, KINJAL Anna Ot C95.90 LEUKEMIA, UNSPECIFIED NOT HAVING ACHIEVE 09/19/2015 PEBBLES FRANCO, LUIGI Foote Ot C91.10 09/19/2015 PEBBLES FRANCO, LUIGI Foote Ot E11.9 09/19/2015 PEBBLES FRANCO, LUIGI Foote Ot E78.5 09/19/2015 PEBBLES FRANCO, LUIGI Foote Ot I12.9 09/19/2015 PEBBLES FRANCO, LUIGI Foote Ot I25.10 09/19/2015 PEBBLES FRANCO, LUIGI Foote Ot Z79.01 09/19/2015 PEBBLES FRANCO, LUIGI K Ot Z79.899 09/19/2015 PEBBLES FRANCO, LUIGI K Ot Z95.1 10/03/2015 PEBBLES FRANCO, LUIGI Foote Ot C91.10 10/03/2015 PEBBLES FRANCO, LUIGI Foote Ot E11.9 10/03/2015 PEBBLES FRANCO, LUIGI Dary Ot E78.5 10/03/2015 PEBBLES FRANCO, LUIGI Dayr Ot I12.9 10/03/2015 PEBBLES FRANCO, LUIGI Foote Ot I25.10 10/03/2015 PEBBLES FRANCO, LUIGI Dary Ot Z79.01 10/03/2015 PEBBLES FRANCO, LUIGI K Ot Z79.899 10/03/2015 PEBBLES FRANCO, LUIGI K Ot Z95.1 10/04/2015 JESUS TESFAYE CRYSTAL FLAT GRINDER Ot C91.10 10/04/2015 JESUS TESFAYE CRYSTAL FLAT GRINDER Ot E11.9 10/04/2015 JESUS TESFAYE CRYSTAL FLAT GRINDER Ot E78.5 10/04/2015 JESUS TESFAYE S CRYSTAL FLAT GRINDER Ot I12.9 10/04/2015 JESUS TESFAYE S CRYSTAL FLAT GRINDER Ot I25.10 10/04/2015 JESUS TESFAYE S CRYSTAL FLAT GRINDER Ot Z79.01 10/04/2015 JESUS TESFAYE S CRYSTAL FLAT GRINDER Ot Z79.899 10/04/2015 JESUS TESFAYE S CRYSTAL FLAT GRINDER Ot Z95.1 10/17/2015 PEBBLES FRANCO, LUIGI Foote Ot C91.10 10/17/2015 PEBBLES FRANCO, LUIGI Foote Ot E11.9 10/17/2015 PEBBLES FRANCO, LUIGI Dary Ot E78.5 10/17/2015 PEBBLES FRANCO, LUIGI Dary Ot I12.9 10/17/2015 PEBBLES FRANCO, LUIGI Dary Ot I25.10 10/17/2015 PEBBLES FRANCO, LUIGI K Ot Z79.01 10/17/2015 PEBBLES FRANCO, LUIGI Dary Ot Z79.899 10/17/2015 PEBBLES FRANCO, LUIGI Dary Ot Z95.1 10/18/2015 PEBBLES FRANCO, LUIGI Foote Ot C91.10 10/18/2015 PEBBLES FRANCO, LUIGI Foote Ot E11.9 10/18/2015 PEBBLES FRANCO, LUIGI Foote Ot E78.5 10/18/2015 PEBBLES FRANCO, LUIGI K Ot I12.9 10/18/2015 PEBBLES FRANCO, LUIGI Foote Ot I25.10 10/18/2015 PEBBLES FRANCO, LUIGI Foote Ot Z79.01 10/18/2015 LUIGI ROGEL MD Ot Z79.899 10/18/2015 LUIGI ROGEL MD Ot Z95.1 10/18/2015 LUIGI ROGEL MD, Ot C91.10 10/18/2015 LUIGI ROGEL MD, Ot E11.9 10/18/2015 LUIGI ROGEL MD, Ot [...] LEUK OF B-CELL TYPE 11/15/2015 LUIGI ROGEL MD Ot E11.9 TYPE 2 DIABETES MELLITUS WITHOUT COMPLIC 11/15/2015 LUIGI ROGEL MD, Ot E78.5 HYPERLIPIDEMIA, UNSPECIFIED 11/15/2015 LUIGI ROGEL MD Ot I12.9 HYPERTENSIVE CHRONIC KIDNEY DISEASE W ST 11/15/2015 LUIGI ROGEL MD, Ot I25.10 ATHSCL HEART DISEASE OF [place] CORONARY 11/15/2015 LUIGI ROGEL MD Ot V45.81 AORTOCORONARY BYPASS 11/15/2015 LUIGI ROGEL MD, Ot V58.61 ANTICOAGULANTS,LT,CURRENT USE 11/15/2015 LUIGI ROGEL MD, Ot V58.69 OTH MED,LT,CURRENT USE 11/15/2015 LUIGI ROGEL MD Ot Z51.11 ENCOUNTER FOR ANTINEOPLASTIC CHEMOTHERAP 11/15/2015 LUIGI ROGEL MD, Ot Z79.01 GROUP HOME (CURRENT) USE OF ANTICOAGULANT 11/15/2015 LUIGI ROGEL MD, Ot Z79.899 OTHER ST[place]TM[place] (CURRENT) DRUG THERAPY 11/15/2015 LUIGI ROGEL MD Ot Z95.1 PRESENCE OF AORTOCORONARY BYPASS GRAFT 11/20/2015 LUIGI ROGEL MD Ot 204.10 11/20/2015 LUIGI ROGEL MD Ot 250.00 11/20/2015 PEBBLES FRANCO, LUIGI Foote Ot 272.4 11/20/2015 PEBBLES FRANCO, LUIGI Foote Ot C91.10 11/20/2015 PEBBLES FRANCO, LUIGI K Ot E11.9 11/20/2015 PEBBLES FRANCO, LUIGI Foote [...] 01/23/2016 Ot V72.83 01/23/2016 PEBBLES FRANCO, LUIGI Dary Ot C91.10 01/23/2016 PEBBLES FRANCO, LUIGI Dary Ot E11.9 01/23/2016 PEBBLES FRANCO, LUIGI Foote Ot E78.5 01/23/2016 PEBBLES FRANCO, LUIGI Foote Ot I10 01/23/2016 PEBBLES FRANCO, LUIGI Foote Ot I25.10 01/23/2016 PEBBLES FRANCO, LUIGI Foote Ot Z51.11 01/23/2016 PEBBLES FRANCO, LUIGI Foote Ot Z79.01 01/23/2016 PEBBLES FRANCO, LUIGI Foote Ot Z79.899 01/23/2016 PEBBLES FRANCO, LUIGI Foote Ot Z95.1 01/23/2016 Ot V72.84 01/23/2016 Ot V72.84 01/23/2016 PEBBLES FRANCO, LUIGI Foote Ot 204.10 01/23/2016 PEBBLES FRANCO, LUIGI Foote Ot 562.10 01/23/2016 PEBBLES FRANCO, LUIGI Foote Ot 571.8 01/23/2016 CHARLOTTE FRANCO, KINJAL Anna Ot C91.10 01/23/2016 CHARLOTTE FRANCO, KINJAL Anna Ot Z01.818 01/23/2016 PEBBLES FRANCO, LUIGI Dary Ot C91.10 01/23/2016 PEBBLES FRANCO, LUIGI Foote Ot E11.9 01/23/2016 PEBBLES FRANCO, LUIGI Foote Ot E78.5 01/23/2016 PEBBLES FRANCO, LUIGI Dary Ot I10 01/23/2016 PEBBLES FRANCO, LUIGI Foote Ot I25.10 01/23/2016 PEBBLES FRANCO, LUIGI Foote Ot Z51.11 01/23/2016 PEBBLES FRANCO, LUIGI Foote Ot Z79.01 01/23/2016 PEBBLES FRANCO, LUIGI Foote Ot Z79.899 01/23/2016 PEBBLES FRANCO, LUIGI Foote Ot Z95.1 01/26/2016 PEBBLES FRANCO, LUIGI Foote Ot C91.10 01/26/2016 PEBBLES FRANCO, LUIGI Dary Ot E11.9 01/26/2016 PEBBLES FRANCO, LUIGI Dary Ot E78.5 01/26/2016 PEBBLES FRANCO, LUIGI Foote Ot I10 01/26/2016 PEBBLES FRANCO, LUIGI Foote Ot I25.10 01/26/2016 PEBBLES FRANCO, LUIGI Foote Ot Z51.11 01/26/2016 PEBBLES FRANCO, LIUGI Foote Ot Z79.01 01/26/2016 PEBBLES FRANCO, LUIGI Foote Ot Z79.899 01/26/2016 PEBBLES FRANCO, LUIGI Foote Ot Z95.1 01/26/2016 PEBBLES FRANCO, LUIGI Foote Ot C91.10 01/26/2016 PEBBLES FRANCO, LUIGI Foote Ot E11.9 01/26/2016 PEBBLES FRANCO, LUIGI Foote Ot E78.5 01/26/2016 PEBBLES FRANCO, LUIGI Foote Ot I10 01/26/2016 PEBBLES FRANCO, LUIGI Foote Ot I25.10 01/26/2016 PEBBLES FRANCO, LUIGI Foote Ot Z51.11 01/26/2016 PEBBLES FRANCO, LUIGI Foote Ot Z79.01 01/26/2016 PEBBLES FRANCO, LUIGI Foote Ot Z79.899 01/26/2016 PEBBLES FRANCO, LUIGI Foote Ot Z95.1 02/14/2016 PEBBLES FRANCO, LUIGI Foote Ot C91.10 CHRONIC LYMPHOCYTIC LEUK OF B-CELL TYPE 02/14/2016 LUIGI ROGEL MD Ot E11.9 TYPE 2 DIABETES MELLITUS WITHOUT COMPLIC 02/14/2016 PEBBLES FRANCO, LUIGI Foote Ot E78.5 HYPERLIPIDEMIA, UNSPECIFIED 02/14/2016 PEBBLES FRANCO, LUIGI Foote Ot I10 ESSENTIAL (PRIMARY) HYPERTENSION 02/14/2016 PEBBLES FRANCO, LUIGI Foote Ot I25.10 ATHSCL HEART DISEASE OF [place] CORONARY 02/14/2016 PEBBLES FRANCO, LUIGI Foote Ot Z51.11 ENCOUNTER FOR ANTINEOPLASTIC CHEMOTHERAP 02/14/2016 LUIGI ROGEL MD Ot Z79.01 GROUP HOME (CURRENT) USE OF ANTICOAGULANT 02/14/2016 LUIGI ROGEL MD Ot Z79.899 OTHER [place] (CURRENT) DRUG THERAPY 02/14/2016 LUIGI ROGEL MD Ot Z95.1 PRESENCE OF AORTOCORONARY BYPASS GRAFT 02/29/2016 Ot 442.2 02/29/2016 Ot 562.10 02/29/2016 Ot 599.70 02/29/2016 Ot 600.00 02/29/2016 DEIDRE AMIN APRN Ot 412 02/29/2016 DEIDRE AMIN ETL TESTER Ot 780.8 02/29/2016 ALEX CHANDLER Ot 288.61 02/29/2016 LUIGI ROGEL MD Ot 204.10 02/29/2016 LUIGI ROGEL MD Ot 562.10 02/29/2016 LUIGI ROGEL MD Ot 571.8 02/29/2016 BRIEN JESUS Arreguin CRYSTAL FLAT GRINDER Ot C91.10 02/29/2016 BRIENJESUS CRYSTAL FLAT GRINDER Ot E11.9 02/29/2016 BRIEN JESUS Arreguin CRYSTAL FLAT GRINDER Ot E78.5 02/29/2016 BRIEN JESUS Arreguin CRYSTAL FLAT GRINDER Ot I12.9 02/29/2016 BRIEN JESUS S CRYSTAL FLAT GRINDER Ot I25.10 02/29/2016 BRIEN JESUS Arreguin CRYSTAL FLAT GRINDER Ot Z79.01 02/29/2016 BRIEN JESUS S CRYSTAL FLAT GRINDER Ot Z79.899 02/29/2016 BRIEN JESUS S CRYSTAL FLAT GRINDER Ot Z95.1 02/29/2016 CHARLOTTE FRANCO, KINJAL Anna Ot C91.10 02/29/2016 CHARLOTTE FRANCO, KINJAL Anna Ot Z01.818 03/04/2016 LUIGI ROGEL MD, Ot C91.10 CHRONIC LYMPHOCYTIC LEUK OF B-CELL TYPE 03/04/2016 LUIGI ROGEL MD Ot E11.9 TYPE 2 DIABETES MELLITUS WITHOUT COMPLIC 03/04/2016 LUIGI ROGEL MD, Ot E78.5 HYPERLIPIDEMIA, UNSPECIFIED 03/04/2016 LUIGI ROGEL MD Ot I10 ESSENTIAL (PRIMARY) HYPERTENSION 03/04/2016 LUIGI ROGEL MD Ot I25.10 ATHSCL HEART DISEASE OF [place] CORONARY 03/04/2016 LUIGI ROGEL MD Ot Z51.11 ENCOUNTER FOR ANTINEOPLASTIC CHEMOTHERAP 03/04/2016 LUIGI ROGEL MD Ot Z79.01 GROUP HOME (CURRENT) USE OF ANTICOAGULANT 03/04/2016 LUIGI ROGEL MD Ot Z79.899 OTHER [place] (CURRENT) DRUG THERAPY 03/04/2016 LUIGI ROGEL MD Ot Z95.1 PRESENCE OF AORTOCORONARY BYPASS GRAFT 03/11/2016 LUIGI ROGEL MD Ot C91.10 CHRONIC LYMPHOCYTIC LEUK OF B-CELL TYPE 03/11/2016 LUIGI ROGEL MD Ot E11.9 TYPE 2 DIABETES MELLITUS WITHOUT COMPLIC 03/11/2016 LUIGI ROGEL MD Ot E78.5 HYPERLIPIDEMIA, UNSPECIFIED 03/11/2016 LUIGI ROGEL MD Ot I10 ESSENTIAL (PRIMARY) HYPERTENSION 03/11/2016 LUIGI ROGEL MD Ot I25.10 ATHSCL HEART DISEASE OF [place] CORONARY 03/11/2016 LUIGI ROGEL MD Ot Z51.11 ENCOUNTER FOR ANTINEOPLASTIC CHEMOTHERAP 03/11/2016 LUIGI ROGEL MD Ot Z79.01 GROUP HOME (CURRENT) USE OF ANTICOAGULANT 03/11/2016 LUIGI ROGEL MD Ot Z79.899 OTHER [place] (CURRENT) DRUG THERAPY 03/11/2016 LUIGI ROGEL MD Ot Z95.1 PRESENCE OF AORTOCORONARY BYPASS GRAFT 03/28/2016 MARIETTA VITAL MD Ot S01.91XA LACERATION W/O FOREIGN BODY OF UNSP PART 03/28/2016 MARIETTA VITAL MD Ot Z53.21 PROC/TRTMT NOT CRD OUT D/T PT LV BEF SEE 03/28/2016 Ot V72.84 EXAM PRE-OPERATIVE NOS 03/28/2016 PEBBLES FRANCO, LUIGI Foote Ot 204.10 CHRONIC LYMPHOID LEUKEMIA, 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 03/28/2016 LUIGI ROGEL MD Ot 562.10 DIVERTICULOSIS COLON (W/O MENT OF HEMORR 03/28/2016 LUIGI ROGEL MD Ot 571.8 CHRONIC LIVER DIS NEC 03/28/2016 JESUS TESFAYEP Ot C91.10 CHRONIC LYMPHOCYTIC LEUK OF B-CELL TYPE 03/28/2016 JESUS TESFAYE CRYSTAL FLAT GRINDER Ot E11.9 TYPE 2 DIABETES MELLITUS WITHOUT COMPLIC 03/28/2016 JESUS TESFAYEP Ot E78.5 HYPERLIPIDEMIA, UNSPECIFIED 03/28/2016 JESUS TESFAYEP Ot I12.9 HYPERTENSIVE CHRONIC KIDNEY DISEASE W ST 03/28/2016 JESUS TESFAYEP Ot I25.10 ATHSCL HEART DISEASE OF [place] CORONARY 03/28/2016 JESUS TESFAYEP Ot Z79.01 GROUP HOME (CURRENT) USE OF ANTICOAGULANT 03/28/2016 JESUS TESFAYE Ot Z79.899 OTHER [place] (CURRENT) DRUG THERAPY 03/28/2016 JESUS TESFAYE Ot Z95.1 PRESENCE OF AORTOCORONARY BYPASS GRAFT 03/28/2016 KINJAL PORTER MD Ot C91.10 CHRONIC LYMPHOCYTIC LEUK OF B-CELL TYPE 03/28/2016 KINJAL PORTER MD Ot Z01.818 ENCOUNTER FOR OTHER PREPROCEDURAL EXAMIN 03/28/2016 LUIGI ROGEL MD, Ot C91.10 CHRONIC LYMPHOCYTIC LEUK OF B-CELL TYPE 03/28/2016 LUIGI ROGEL MD, Ot E11.9 TYPE 2 DIABETES MELLITUS WITHOUT COMPLIC 03/28/2016 LUIGI ROGEL MD, Ot E78.5 HYPERLIPIDEMIA, UNSPECIFIED 03/28/2016 LUIGI ROGEL MD, Ot I10 ESSENTIAL (PRIMARY) HYPERTENSION 03/28/2016 LUIGI ROGEL MD, Ot I25.10 ATHSCL HEART DISEASE OF [place] CORONARY 03/28/2016 LUIGI ROGEL MD, Ot Z51.11 ENCOUNTER FOR ANTINEOPLASTIC CHEMOTHERAP 03/28/2016 LUIGI ROGEL MD, Ot Z79.01 GROUP HOME (CURRENT) USE OF ANTICOAGULANT 03/28/2016 LUIGI ROGEL MD, Ot Z79.899 OTHER GROUP HOME (CURRENT) DRUG THERAPY 03/28/2016 LUIGI ROGEL MD, Ot Z95.1 PRESENCE OF [...] LEUK OF B-CELL TYPE 04/10/2016 LUIGI ROGEL MD, Ot E11.9 TYPE 2 DIABETES MELLITUS WITHOUT COMPLIC 04/10/2016 LUIGI ROGEL MD, Ot E78.5 HYPERLIPIDEMIA, UNSPECIFIED 04/10/2016 LUIGI ROGEL MD, Ot I10 ESSENTIAL (PRIMARY) HYPERTENSION 04/10/2016 LUIGI ROGEL MD, Ot I25.10 ATHSCL HEART DISEASE OF [place] CORONARY 04/10/2016 LUIGI ROGEL MD, Ot Z51.11 ENCOUNTER FOR ANTINEOPLASTIC CHEMOTHERAP 04/10/2016 LUIGI ROGEL MD, Ot Z79.01 GROUP HOME (CURRENT) USE OF ANTICOAGULANT 04/10/2016 LUIGI ROGEL MD, Ot Z79.899 OTHER [place] (CURRENT) DRUG THERAPY 04/10/2016 LUIGI ROGEL MD, Ot Z95.1 PRESENCE OF AORTOCORONARY BYPASS GRAFT 04/27/2016 LUIGI ROGEL MD, Ot C91.10 CHRONIC LYMPHOCYTIC LEUK OF B-CELL TYPE 04/27/2016 LUIGI ROGEL MD Ot E11.9 TYPE 2 DIABETES MELLITUS WITHOUT COMPLIC 04/27/2016 LUIGI ROGEL MD, Ot E78.5 HYPERLIPIDEMIA, UNSPECIFIED 04/27/2016 LUIGI ROGEL MD Ot I10 ESSENTIAL (PRIMARY) HYPERTENSION 04/27/2016 LUIGI ROGEL MD, Ot I25.10 ATHSCL HEART DISEASE OF [place] CORONARY 04/27/2016 LUIGI ROGEL MD, Ot Z45.2 ENCOUNTER FOR ADJUSTMENT AND MANAGEMENT 04/27/2016 LUIGI ROGEL MD, Ot Z79.01 ST[place]TM[place] (CURRENT) USE OF ANTICOAGULANT 04/27/2016 LUIGI ROGEL MD, Ot Z79.899 OTHER GROUP HOME (CURRENT) DRUG THERAPY 04/27/2016 LUIGI ROGEL MD, Ot Z95.1 PRESENCE OF AORTOCORONARY BYPASS GRAFT 05/21/2016 LUIGI ROGEL MD, Ot C91.10 CHRONIC LYMPHOCYTIC LEUK OF B-CELL TYPE 05/21/2016 LUIGI ROGEL MD, Ot E11.9 TYPE 2 DIABETES MELLITUS WITHOUT COMPLIC 05/21/2016 LUIGI ROGEL MD, Ot E78.5 HYPERLIPIDEMIA, UNSPECIFIED 05/21/2016 LUIGI ROGEL MD, Ot I10 ESSENTIAL (PRIMARY) HYPERTENSION 05/21/2016 LUIGI ROGEL MD, Ot I25.10 ATHSCL HEART DISEASE OF [place] CORONARY 05/21/2016 LUIGI ROGEL MD, Ot Z45.2 ENCOUNTER FOR ADJUSTMENT AND MANAGEMENT 05/21/2016 LUIGI ROGEL MD, Ot Z79.01 [place]TM[place] (CURRENT) USE OF ANTICOAGULANT 05/21/2016 LUIGI ROGEL MD, Ot Z79.899 OTHER GROUP HOME (CURRENT) DRUG THERAPY 05/21/2016 LUIGI ROGEL MD Ot Z95.1 PRESENCE OF AORTOCORONARY BYPASS GRAFT 05/23/2016 LUIGI ROGEL MD, Ot C91.10 CHRONIC LYMPHOCYTIC LEUK OF B-CELL TYPE 05/23/2016 LUIGI ROGEL MD, Ot E11.9 TYPE 2 DIABETES MELLITUS WITHOUT COMPLIC 05/23/2016 LUIGI ROGEL MD, Ot E78.5 HYPERLIPIDEMIA, UNSPECIFIED 05/23/2016 LUIGI ROGEL MD Ot I10 ESSENTIAL (PRIMARY) HYPERTENSION 05/23/2016 LUIGI ROGEL MD Ot I25.10 ATHSCL HEART DISEASE OF [place] CORONARY 05/23/2016 LUIGI ROGEL MD Ot Z45.2 ENCOUNTER FOR ADJUSTMENT AND MANAGEMENT 05/23/2016 LUIGI ROGEL MD Ot Z79.01 STUNTMAN (CURRENT) USE OF ANTICOAGULANT 05/23/2016 LUIGI ROGEL MD Ot Z79.899 OTHER [place]TM[place] (CURRENT) DRUG THERAPY 05/23/2016 LUIGI ROGEL MD [...] MD Ot I25.10 ATHSCL HEART DISEASE OF [place] CORONARY 05/29/2016 LUIGI ROGEL MD Ot Z45.2 ENCOUNTER FOR ADJUSTMENT AND MANAGEMENT 05/29/2016 LUIGI ROGEL MD, Ot Z79.01 STUNTMAN (CURRENT) USE OF ANTICOAGULANT 05/29/2016 LUIGI ROGEL MD, Ot Z79.899 OTHER [place] (CURRENT) DRUG THERAPY 05/29/2016 LUIGI ROGEL MD Ot Z95.1 PRESENCE OF AORTOCORONARY BYPASS GRAFT 06/06/2016 LUIGI ROGEL MD, Ot C91.10 CHRONIC LYMPHOCYTIC LEUK OF B-CELL TYPE 06/06/2016 LUIGI ROGEL MD Ot E11.9 TYPE 2 DIABETES MELLITUS WITHOUT COMPLIC 06/06/2016 LUIIG ROGEL MD Ot E78.5 HYPERLIPIDEMIA, UNSPECIFIED 06/06/2016 LUIGI ROGEL MD Ot I10 ESSENTIAL (PRIMARY) HYPERTENSION 06/06/2016 LUIGI ROGEL MD Ot I25.10 ATHSCL HEART DISEASE OF [place] CORONARY 06/06/2016 LUIGI ROGEL MD Ot Z45.2 ENCOUNTER FOR ADJUSTMENT AND MANAGEMENT 06/06/2016 LUIGI ROGEL MD, Ot Z79.01 GROUP HOME (CURRENT) USE OF ANTICOAGULANT 06/06/2016 LUIGI ROGEL MD Ot Z79.899 OTHER GROUP HOME (CURRENT) DRUG THERAPY 06/06/2016 LUIGI ROGEL MD Ot Z95.1 PRESENCE OF AORTOCORONARY BYPASS GRAFT 06/07/2016 Ot V72.84 EXAM PRE-OPERATIVE NOS 06/07/2016 LUIGI ROGEL MD Ot 204.10 [...] TESFAYE Ot E78.5 HYPERLIPIDEMIA, UNSPECIFIED 06/07/2016 JESUS TESFAYEP Ot I12.9 HYPERTENSIVE CHRONIC KIDNEY DISEASE W ST 06/07/2016 JESUS TESFAYE Ot I25.10 ATHSCL HEART DISEASE OF [place] CORONARY 06/07/2016 JESUS TESFAYE Ot Z79.01 [place]TM[place] (CURRENT) USE OF ANTICOAGULANT 06/07/2016 JESUS TESFAYE Ot Z79.899 OTHER [place] (CURRENT) DRUG THERAPY 06/07/2016 JESUS TESFAYE Ot Z95.1 PRESENCE OF AORTOCORONARY BYPASS GRAFT 06/07/2016 CHARLOTTE FRANCO, KINJAL Anna Ot C91.10 CHRONIC LYMPHOCYTIC LEUK OF B-CELL TYPE 06/07/2016 CHARLOTTE FRANCO, KINJAL Anna Ot Z01.818 ENCOUNTER FOR OTHER PREPROCEDURAL EXAMIN 06/07/2016 LUIGI ROGEL MD Ot C91.10 CHRONIC LYMPHOCYTIC LEUK OF B-CELL TYPE 06/07/2016 LUIGI ROGEL MD Ot E11.9 TYPE 2 DIABETES MELLITUS WITHOUT COMPLIC 06/07/2016 LUIGI ROGEL MD Ot E78.5 HYPERLIPIDEMIA, UNSPECIFIED 06/07/2016 LUIGI ROGEL MD Ot I10 ESSENTIAL (PRIMARY) HYPERTENSION 06/07/2016 LUIGI ROGEL MD Ot I25.10 ATHSCL HEART DISEASE OF [place] CORONARY 06/07/2016 LUIGI ROGEL MD Ot Z45.2 ENCOUNTER FOR ADJUSTMENT AND MANAGEMENT 06/07/2016 LUIGI ROGEL MD Ot Z79.01 [place] (CURRENT) USE OF ANTICOAGULANT 06/07/2016 LUIGI ROGEL MD Ot Z79.899 OTHER GROUP HOME (CURRENT) DRUG THERAPY 06/07/2016 LUIGI ROGEL MD Ot Z95.1 PRESENCE OF AORTOCORONARY BYPASS GRAFT 06/07/2016 Ot 442.2 ILIAC ARTERY ANEURYSM 06/07/2016 Ot 562.10 DIVERTICULOSIS COLON (W/O MENT OF HEMORR 06/07/2016 Ot 599.70 HEMATURIA, UNSPECIFIED 06/07/2016 Ot 600.00 HYPERTROPHY (BENIGN) OF PROSTATE W/O URI 06/07/2016 Ot V72.84 EXAM PRE-OPERATIVE NOS 06/07/2016 Ot 427.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 06/07/2016 Ot 785.1 PALPITATIONS 06/07/2016 Ot 427.31 ATRIAL FIBRILLATION 06/07/2016 Ot 427.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 06/07/2016 Ot 785.1 PALPITATIONS 06/07/2016 OSCAR VALENCIA CRYSTAL FLAT GRINDER Ot 414.01 CORONARY ATHEROSCLEROSIS OF [place] CORON 06/07/2016 OSCAR VALENCIA CRYSTAL FLAT GRINDER Ot 427.31 ATRIAL FIBRILLATION 06/07/2016 OSCAR VALENCIAP Ot V45.81 AORTOCORONARY BYPASS 06/07/2016 ANATOLIY LUNA CRYSTAL FLAT GRINDER Ot 786.09 RESPIRATORY ABNORM NEC 06/07/2016 ANATOLIY LUNA CRYSTAL FLAT GRINDER Ot 786.2 COUGH 06/07/2016 Ot V72.84 EXAM PRE-OPERATIVE NOS 06/07/2016 DEIDRE AMIN ETL TESTER Ot 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 INFARCT 06/07/2016 DEIDRE AMIN ETL TESTER Ot 780.8 GENERALIZED HYPERHIDROSIS 06/07/2016 ALEX CHANDLER CRYSTAL FLAT GRINDER Ot 288.61 LYMPHOCYTOSIS (SYMPTOMATIC) 06/07/2016 PEBBLES FRANCO, LUIGI Foote Ot 204.10 CHRONIC LYMPHOID LEUKEMIA, 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 06/07/2016 PEBBLES FRANCO, LUIGI Foote Ot 562.10 DIVERTICULOSIS COLON (W/O MENT OF HEMORR 06/07/2016 LUIGI ROGEL MD Ot 571.8 CHRONIC LIVER DIS NEC 06/07/2016 JESUS TESFAYE CRYSTAL FLAT GRINDER Ot C91.10 CHRONIC LYMPHOCYTIC LEUK OF B-CELL TYPE 06/07/2016 JESUS TESFAYEP Ot E11.9 TYPE 2 DIABETES MELLITUS WITHOUT COMPLIC 06/07/2016 JESUS TESFAYEP Ot E78.5 HYPERLIPIDEMIA, UNSPECIFIED 06/07/2016 JESUS TESFAYE CRYSTAL FLAT GRINDER Ot I12.9 HYPERTENSIVE CHRONIC KIDNEY DISEASE W ST 06/07/2016 TESFAYEJESUS Arreguin RUPINDER Ot I25.10 ATHSCL HEART DISEASE OF [place] CORONARY 06/07/2016 TESFAYE JESUS Arreguin RUPINDER Ot Z79.01 GROUP HOME (CURRENT) USE OF ANTICOAGULANT 06/07/2016 TESFAYEJESUS RUPINDER Ot Z79.899 OTHER GROUP HOME (CURRENT) DRUG THERAPY 06/07/2016 TESFAYE JESUS Arreguin RUPINDER Ot Z95.1 PRESENCE OF AORTOCORONARY BYPASS GRAFT 06/07/2016 CHARLOTTE FRANCO, KINJAL Anna Ot C91.10 CHRONIC [...] MD Ot I25.10 ATHSCL HEART DISEASE OF [place] CORONARY 06/07/2016 LUIGI ROGEL MD Ot Z45.2 ENCOUNTER FOR ADJUSTMENT AND MANAGEMENT 06/07/2016 LUIGI ROGEL MD Ot Z79.01 [place] (CURRENT) USE OF ANTICOAGULANT 06/07/2016 LUIGI ROGEL MD Ot Z79.899 OTHER [place] (CURRENT) DRUG THERAPY 06/07/2016 LUIGI ROGEL MD [...] R31.9 HEMATURIA, UNSPECIFIED 08/08/2016 Ot V72.84 EXAM PRE-OPERATIVE NOS 08/08/2016 PEBBLES FRANCO, LUIGI Foote Ot 204.10 CHRONIC LYMPHOID LEUKEMIA, 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 08/08/2016 PEBBLES FRANCO, LUIGI Foote Ot 562.10 DIVERTICULOSIS COLON (W/O MENT OF HEMORR 08/08/2016 PEBBLES FRANCO, LUIGI Foote Ot 571.8 CHRONIC LIVER DIS NEC 08/08/2016 JESUS TESFAYEP Ot C91.10 CHRONIC LYMPHOCYTIC LEUK OF B-CELL TYPE 08/08/2016 JESUS TESFAYE CRYSTAL FLAT GRINDER Ot E11.9 TYPE 2 DIABETES MELLITUS WITHOUT COMPLIC 08/08/2016 JESUS TESFAYEP Ot E78.5 HYPERLIPIDEMIA, UNSPECIFIED 08/08/2016 JESUS TESFAYEP Ot I12.9 HYPERTENSIVE CHRONIC KIDNEY DISEASE W ST 08/08/2016 JESUS TESFAYE CRYSTAL FLAT GRINDER Ot I25.10 ATHSCL HEART DISEASE OF [place] CORONARY 08/08/2016 JESUS TESFAYEP Ot Z79.01 GROUP HOME (CURRENT) USE OF ANTICOAGULANT 08/08/2016 JESUS TESFAYEP Ot Z79.899 OTHER [place] (CURRENT) DRUG THERAPY 08/08/2016 JESUS TESFAYEP Ot Z95.1 PRESENCE OF AORTOCORONARY BYPASS GRAFT 08/08/2016 CHARLOTTE FRANCO, KINJAL Anna Ot C91.10 CHRONIC LYMPHOCYTIC LEUK OF B-CELL TYPE 08/08/2016 CHARLOTTE FRANCO, KINJAL Anna Ot Z01.818 ENCOUNTER FOR OTHER PREPROCEDURAL EXAMIN 08/08/2016 LUIGI ROGEL MD Ot C91.10 CHRONIC LYMPHOCYTIC LEUK OF B-CELL TYPE 08/08/2016 LUIGI ROGEL MD Ot E11.9 TYPE 2 DIABETES MELLITUS WITHOUT COMPLIC 08/08/2016 LUIGI ROGEL MD Ot E78.5 HYPERLIPIDEMIA, UNSPECIFIED 08/08/2016 LUIGI ROGEL MD Ot I10 ESSENTIAL (PRIMARY) HYPERTENSION 08/08/2016 LUIGI ROGEL MD Ot I25.10 ATHSCL HEART DISEASE OF [place] CORONARY 08/08/2016 LUIGI ROGEL MD, Ot Z45.2 ENCOUNTER FOR ADJUSTMENT AND MANAGEMENT 08/08/2016 LUIGI ROGEL MD, Ot Z79.01 GROUP HOME (CURRENT) USE OF ANTICOAGULANT 08/08/2016 LUIGI ROGEL MD, Ot Z79.899 OTHER [place] (CURRENT) DRUG THERAPY 08/08/2016 LUIGI ROGEL MD Ot Z95.1 PRESENCE OF AORTOCORONARY BYPASS GRAFT 08/08/2016 MADYSON MARTINEZ MD Ot K57.90 DVRTCLOS OF INTEST, PART UNSP, W/O PERF 08/08/2016 MADYSON MARTINEZ MD Ot K76.0 FATTY (CHANGE OF) LIVER, NOT ELSEWHERE C 08/08/2016 MADYSON MARTINEZ MD, Ot N40.0 ENLARGED PROSTATE WITHOUT LOWER URINARY 08/08/2016 MADYSON MARTINEZ MD, Ot R31.9 HEMATURIA, UNSPECIFIED 08/14/2016 Ot V72.84 EXAM PRE-OPERATIVE NOS 08/14/2016 LUIGI ROGEL MD Ot 204.10 CHRONIC LYMPHOID [...] HYPERTENSIVE CHRONIC KIDNEY DISEASE W ST 08/14/2016 BRIENJESUS RUPINDER Ot I25.10 ATHSCL HEART DISEASE OF [place] CORONARY 08/14/2016 TESFAYEJESUS Arreguin RUPINDER Ot Z79.01 [place] (CURRENT) USE OF ANTICOAGULANT 08/14/2016 TESFAYEJESUS Arreguin RUPINDER Ot Z79.899 OTHER GROUP HOME (CURRENT) DRUG THERAPY 08/14/2016 TESFAYEJESUS Arreguin RUPINDER Ot Z95.1 PRESENCE OF AORTOCORONARY BYPASS GRAFT 08/14/2016 CHARLOTTE FRANCO, KINJAL Anna Ot C91.10 CHRONIC LYMPHOCYTIC LEUK OF B-CELL TYPE 08/14/2016 KINJAL PORTER MD Ot Z01.818 ENCOUNTER FOR OTHER PREPROCEDURAL EXAMIN 08/14/2016 LUIGI ROGEL MD Ot C91.10 CHRONIC LYMPHOCYTIC LEUK OF B-CELL TYPE 08/14/2016 LUIGI ROGEL MD Ot E11.9 TYPE 2 DIABETES MELLITUS WITHOUT COMPLIC 08/14/2016 LUIGI ROGEL MD Ot E78.5 HYPERLIPIDEMIA, UNSPECIFIED 08/14/2016 LUIGI ROGEL MD Ot I10 ESSENTIAL (PRIMARY) HYPERTENSION 08/14/2016 LUIGI ROGEL MD Ot I25.10 ATHSCL HEART DISEASE OF [place] CORONARY 08/14/2016 LUIGI ROGEL MD Ot Z45.2 ENCOUNTER FOR ADJUSTMENT AND MANAGEMENT 08/14/2016 LUIGI ROGEL MD Ot Z79.01 GROUP HOME (CURRENT) USE OF ANTICOAGULANT 08/14/2016 LUIGI ROGEL MD Ot Z79.899 OTHER GROUP HOME (CURRENT) DRUG THERAPY 08/14/2016 LUIGI ROGEL MD Ot Z95.1 PRESENCE OF AORTOCORONARY BYPASS GRAFT 08/14/2016 MADYSON MARTINEZ MD Ot K57.90 DVRTCLOS OF INTEST, PART UNSP, W/O PERF 08/14/2016 MADYSON MARTINEZ MD Ot K76.0 FATTY (CHANGE OF) LIVER, NOT ELSEWHERE C 08/14/2016 MADYSON MARTNIEZ MD Ot N40.0 ENLARGED PROSTATE WITHOUT LOWER URINARY 08/14/2016 MADYSON MARTINEZ MD Ot R31.9 HEMATURIA, UNSPECIFIED 08/23/2016 Ot V72.84 EXAM PRE-OPERATIVE NOS 08/23/2016 LUIGI ROGEL MD Ot 204.10 CHRONIC LYMPHOID LEUKEMIA, 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 08/23/2016 LUIGI ROGEL MD Ot 562.10 DIVERTICULOSIS COLON (W/O MENT OF HEMORR 08/23/2016 LUIGI ROGEL MD Ot 571.8 CHRONIC LIVER DIS NEC 08/23/2016 JESUS TESFAYE Ot C91.10 CHRONIC LYMPHOCYTIC LEUK OF B-CELL TYPE 08/23/2016 JESUS TESFAYEP Ot E11.9 TYPE 2 DIABETES MELLITUS WITHOUT COMPLIC 08/23/2016 JESUS TESFAYE Ot E78.5 HYPERLIPIDEMIA, UNSPECIFIED 08/23/2016 JESUS TESFAYE Ot I12.9 HYPERTENSIVE CHRONIC KIDNEY DISEASE W ST 08/23/2016 JESUS TESFAYE Ot I25.10 ATHSCL HEART DISEASE OF [place] CORONARY 08/23/2016 JESUS TESFAYE Ot Z79.01 [place] (CURRENT) USE OF ANTICOAGULANT 08/23/2016 JESUS TESFAYE Ot Z79.899 OTHER [place] (CURRENT) DRUG THERAPY 08/23/2016 JESUS TESFAYE Ot Z95.1 PRESENCE OF AORTOCORONARY BYPASS GRAFT 08/23/2016 KINJAL PORTER MD Ot C91.10 CHRONIC LYMPHOCYTIC LEUK OF B-CELL TYPE 08/23/2016 KINJAL PORTER MD Ot Z01.818 ENCOUNTER FOR OTHER PREPROCEDURAL EXAMIN 08/23/2016 LUIGI ROGEL MD Ot C91.10 CHRONIC LYMPHOCYTIC LEUK OF B-CELL TYPE 08/23/2016 LUIGI ROGEL MD Ot E11.9 TYPE 2 DIABETES MELLITUS WITHOUT COMPLIC 08/23/2016 LUIGI ROGEL MD Ot E78.5 HYPERLIPIDEMIA, UNSPECIFIED 08/23/2016 LUIGI ROGEL MD Ot I10 ESSENTIAL (PRIMARY) HYPERTENSION 08/23/2016 LUIGI ROGEL MD Ot I25.10 ATHSCL HEART DISEASE OF [place] CORONARY 08/23/2016 LUIGI ROGEL MD Ot Z45.2 ENCOUNTER FOR ADJUSTMENT AND MANAGEMENT 08/23/2016 LUIGI ROGEL MD Ot Z79.01 GROUP HOME (CURRENT) USE OF ANTICOAGULANT 08/23/2016 LUIGI ROGEL MD Ot Z79.899 OTHER GROUP HOME (CURRENT) DRUG THERAPY 08/23/2016 LUIGI ROGEL MD Ot Z95.1 PRESENCE OF AORTOCORONARY BYPASS GRAFT 08/23/2016 MADYSON MARTINEZ MD, Ot K57.90 DVRTCLOS OF INTEST, PART UNSP, W/O PERF 08/23/2016 MADYSON MARTINEZ MD Ot K76.0 FATTY (CHANGE OF) LIVER, NOT ELSEWHERE C 08/23/2016 MADYSON MARTINEZ MD, Ot N40.0 ENLARGED PROSTATE [...] MD Ot I25.10 ATHSCL HEART DISEASE OF [place] CORONARY 08/23/2016 LUIGI ROGEL MD Ot Z45.2 ENCOUNTER FOR ADJUSTMENT AND MANAGEMENT 08/23/2016 LUIGI ROGEL MD Ot Z79.01 [place] (CURRENT) USE OF ANTICOAGULANT 08/23/2016 LUIGI ROGEL MD Ot Z79.899 OTHER GROUP HOME (CURRENT) DRUG THERAPY 08/23/2016 LUIGI ROGEL MD Ot Z95.1 PRESENCE OF AORTOCORONARY BYPASS GRAFT 09/04/2016 Ot V72.84 EXAM PRE-OPERATIVE NOS 09/04/2016 LUIGI ROGEL MD Ot 204.10 CHRONIC LYMPHOID LEUKEMIA, 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 09/04/2016 LUIGI ROGEL MD Ot 562.10 DIVERTICULOSIS COLON (W/O MENT OF HEMORR 09/04/2016 LUIGI ROGEL MD Ot 571.8 CHRONIC LIVER DIS NEC 09/04/2016 JESUS TESFAYE Ot C91.10 CHRONIC LYMPHOCYTIC LEUK OF B-CELL TYPE 09/04/2016 JESUS TESFAYEP Ot E11.9 TYPE 2 DIABETES MELLITUS WITHOUT COMPLIC 09/04/2016 JESUS TESFAYE Ot E78.5 HYPERLIPIDEMIA, UNSPECIFIED 09/04/2016 JESUS TESFAYEP Ot I12.9 HYPERTENSIVE CHRONIC KIDNEY DISEASE W ST 09/04/2016 JESUS TESFAYEP Ot I25.10 ATHSCL HEART DISEASE OF [place] CORONARY 09/04/2016 TESFAYEJESUS Arreguin RUPINDER Ot Z79.01 [place] (CURRENT) USE OF ANTICOAGULANT 09/04/2016 BRIENJESUS RUPINDER Ot Z79.899 OTHER GROUP HOME (CURRENT) DRUG THERAPY 09/04/2016 TESFAYEJESUS Arreguin RUPINDER Ot Z95.1 PRESENCE OF AORTOCORONARY BYPASS GRAFT 09/04/2016 CHARLOTTE FRANCO, KINJAL Anna Ot C91.10 CHRONIC LYMPHOCYTIC LEUK OF B-CELL TYPE 09/04/2016 CHARLOTTE FRANCO, KINJAL Anna Ot Z01.818 ENCOUNTER [...] MD Ot I25.10 ATHSCL HEART DISEASE OF [place] CORONARY 09/04/2016 LUIGI ROGEL MD Ot Z45.2 ENCOUNTER FOR ADJUSTMENT AND MANAGEMENT 09/04/2016 LUIGI ROGEL MD Ot Z79.01 GROUP HOME (CURRENT) USE OF ANTICOAGULANT 09/04/2016 LUIGI ROGEL MD Ot Z79.899 OTHER [place] (CURRENT) DRUG THERAPY 09/04/2016 LUIGI ROGEL MD Ot Z95.1 PRESENCE OF AORTOCORONARY BYPASS GRAFT 09/05/2016 LUIGI ROGEL MD Ot C91.10 CHRONIC LYMPHOCYTIC LEUK OF B-CELL TYPE 09/05/2016 LUIGI ROGEL MD Ot E11.9 TYPE 2 DIABETES MELLITUS WITHOUT COMPLIC 09/05/2016 LUIGI ROGEL MD Ot E78.5 HYPERLIPIDEMIA, UNSPECIFIED 09/05/2016 LUIGI ROGEL MD, Ot I10 ESSENTIAL (PRIMARY) HYPERTENSION 09/05/2016 LUIGI ROGEL MD, Ot I25.10 ATHSCL HEART DISEASE OF [place] CORONARY 09/05/2016 LUIGI ROGEL MD, Ot Z45.2 ENCOUNTER FOR ADJUSTMENT AND MANAGEMENT 09/05/2016 LUIGI ROGEL MD, Ot Z79.01 [place] (CURRENT) USE OF ANTICOAGULANT 09/05/2016 LUIGI ROGEL MD, Ot Z79.899 OTHER [place] (CURRENT) DRUG THERAPY 09/05/2016 LUIGI ROGEL MD, Ot Z95.1 PRESENCE OF AORTOCORONARY BYPASS GRAFT 09/17/2016 LUIGI ROGEL MD, Ot 204.10 CHRONIC LYMPHOID LEUKEMIA, 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 09/17/2016 LUIGI ROGEL MD Ot 250.00 DIAB GISELLA WO COMPL, TYPE II OR UNSPEC TY 09/17/2016 LUIGI ROGEL MD, Ot 272.4 HYPERLIPIDEMIA NEC/NOS 09/17/2016 LUIGI ROGEL MD, Ot C91.10 CHRONIC LYMPHOCYTIC LEUK OF B-CELL TYPE 09/17/2016 LUIGI ROGEL MD, Ot E11.9 TYPE 2 DIABETES MELLITUS WITHOUT COMPLIC 09/17/2016 LUIGI ROGEL MD, Ot E78.5 HYPERLIPIDEMIA, UNSPECIFIED 09/17/2016 LUIGI ROGEL MD, Ot I12.9 HYPERTENSIVE CHRONIC KIDNEY DISEASE W ST 09/17/2016 LUIGI ROGEL MD, Ot I25.10 ATHSCL HEART DISEASE OF [place] CORONARY 09/17/2016 LUIGI ROGEL MD, Ot V45.81 AORTOCORONARY BYPASS 09/17/2016 LUIGI ROGEL MD, Ot V58.61 ANTICOAGULANTS,LT,CURRENT USE 09/17/2016 LUIGI ROGEL MD, Ot V58.69 OTH MED,LT,CURRENT USE 09/17/2016 LUIGI ROGEL MD, Ot Z51.11 ENCOUNTER FOR ANTINEOPLASTIC CHEMOTHERAP 09/17/2016 LUIGI ROGEL MD, Ot Z79.01 [place] (CURRENT) USE OF ANTICOAGULANT 09/17/2016 LUIGI ROGEL MD, Ot Z79.899 OTHER GROUP HOME (CURRENT) DRUG THERAPY 09/17/2016 LUIGI ROGEL MD, Ot Z95.1 PRESENCE OF AORTOCORONARY BYPASS GRAFT 12/03/2016 LUIGI ROGEL MD, Ot C91.10 CHRONIC LYMPHOCYTIC LEUK OF B-CELL TYPE 12/03/2016 LUIGI ROGEL MD Ot E11.9 TYPE 2 DIABETES MELLITUS WITHOUT COMPLIC 12/03/2016 LUIGI ROGEL MD Ot E78.5 HYPERLIPIDEMIA, UNSPECIFIED 12/03/2016 LUIGI ROGEL MD Ot I10 ESSENTIAL (PRIMARY) HYPERTENSION 12/03/2016 LUIGI ROGEL MD Ot I25.10 ATHSCL HEART DISEASE OF [place] CORONARY 12/03/2016 LUIGI ROGEL MD Ot Z45.2 ENCOUNTER FOR ADJUSTMENT AND MANAGEMENT 12/03/2016 LUIGI ROGEL MD Ot Z79.01 [place] (CURRENT) USE OF ANTICOAGULANT 12/03/2016 LUIGI ROGEL MD Ot Z79.899 OTHER GROUP HOME (CURRENT) DRUG THERAPY 12/03/2016 LUIGI ROGEL MD [...] MD, Ot I25.10 ATHSCL HEART DISEASE OF [place] CORONARY 12/04/2016 LUIGI ROGEL MD Ot Z45.2 ENCOUNTER FOR ADJUSTMENT AND MANAGEMENT 12/04/2016 LUIGI ROGEL MD, Ot Z79.01 [place] (CURRENT) USE OF ANTICOAGULANT 12/04/2016 LUIGI ROGEL MD Ot Z79.899 OTHER GROUP HOME (CURRENT) DRUG THERAPY 12/04/2016 LUIGI ROGEL MD [...] MD Ot I25.10 ATHSCL HEART DISEASE OF [place] CORONARY 12/26/2016 LUIGI ROGEL MD Ot Z45.2 ENCOUNTER FOR ADJUSTMENT AND MANAGEMENT 12/26/2016 LUIGI ROGEL MD Ot Z79.01 GROUP HOME (CURRENT) USE OF ANTICOAGULANT 12/26/2016 LUIGI ROGEL MD Ot Z79.899 OTHER [place] (CURRENT) DRUG THERAPY 12/26/2016 LUIGI ROGEL MD Ot Z95.1 PRESENCE OF AORTOCORONARY BYPASS GRAFT 12/26/2016 Ot 442.2 ILIAC ARTERY ANEURYSM 12/26/2016 Ot 562.10 DIVERTICULOSIS COLON (W/O MENT OF HEMORR 12/26/2016 Ot 599.70 HEMATURIA, UNSPECIFIED 12/26/2016 Ot 600.00 HYPERTROPHY (BENIGN) OF PROSTATE W/O URI 12/26/2016 Ot V72.84 EXAM PRE-OPERATIVE NOS 12/26/2016 Ot 427.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 12/26/2016 Ot 785.1 PALPITATIONS 12/26/2016 Ot 427.31 ATRIAL FIBRILLATION 12/26/2016 Ot 427.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 12/26/2016 Ot 785.1 PALPITATIONS 12/26/2016 OSCAR VALENCIA CRYSTAL FLAT GRINDER Ot 414.01 CORONARY ATHEROSCLEROSIS OF [place] CORON 12/26/2016 OSCAR VALENCIA Ot 427.31 ATRIAL FIBRILLATION 12/26/2016 OSCAR VALENCIA Ot V45.81 AORTOCORONARY BYPASS 12/26/2016 ANATOLIY LUNA CRYSTAL FLAT GRINDER Ot 786.09 RESPIRATORY ABNORM NEC 12/26/2016 ANATOLIY LUNA CRYSTAL FLAT GRINDER Ot 786.2 COUGH 12/26/2016 Ot V72.84 EXAM PRE-OPERATIVE NOS 12/26/2016 DEIDRE AMIN ETL TESTER Ot 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 INFARCT 12/26/2016 DEIDRE AMIN APRN Ot 780.8 GENERALIZED HYPERHIDROSIS 12/26/2016 ALEX CHANDLER CRYSTAL FLAT GRINDER Ot 288.61 LYMPHOCYTOSIS (SYMPTOMATIC) 12/26/2016 LUIGI ROGEL MD Ot 204.10 CHRONIC LYMPHOID LEUKEMIA, 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 12/26/2016 LUIGI ROGEL MD Ot 562.10 DIVERTICULOSIS COLON (W/O MENT OF HEMORR 12/26/2016 LUIGI ROGEL MD Ot 571.8 CHRONIC LIVER DIS NEC 12/26/2016 JESUS TESFAYEP Ot C91.10 CHRONIC LYMPHOCYTIC LEUK OF B-CELL TYPE 12/26/2016 JESUS TESFAYEP Ot E11.9 TYPE 2 DIABETES MELLITUS WITHOUT COMPLIC 12/26/2016 JESUS TESFAYEP Ot E78.5 HYPERLIPIDEMIA, UNSPECIFIED 12/26/2016 JESUS TESFAYEP Ot I12.9 HYPERTENSIVE CHRONIC KIDNEY DISEASE W ST 12/26/2016 JESUS TESFAYEP Ot I25.10 ATHSCL HEART DISEASE OF [place] CORONARY 12/26/2016 TESFAYEJESUS ArreguinP Ot Z79.01 GROUP HOME (CURRENT) USE OF ANTICOAGULANT 12/26/2016 BRIENJESUS CRYSTAL FLAT GRINDER Ot Z79.899 OTHER [place] (CURRENT) DRUG THERAPY 12/26/2016 TESFAYEJESUS ArreguinP Ot Z95.1 PRESENCE OF AORTOCORONARY BYPASS GRAFT 12/26/2016 CHARLOTTE FRANCO, KINJAL Anna Ot C91.10 CHRONIC LYMPHOCYTIC LEUK OF B-CELL TYPE 12/26/2016 KINJAL PORTER MD Ot Z01.818 ENCOUNTER FOR OTHER PREPROCEDURAL EXAMIN 12/26/2016 JUAN FRANCO, MADYSON Pro Ot K57.90 DVRTCLOS OF INTEST, PART UNSP, W/O PERF 12/26/2016 MADYSON MARTINEZ MD Ot K76.0 FATTY (CHANGE OF) LIVER, NOT ELSEWHERE C 12/26/2016 MADYSON MARTINEZ MD Ot N40.0 ENLARGED PROSTATE WITHOUT LOWER URINARY 12/26/2016 MADYSON MARTINEZ MD Ot R31.9 HEMATURIA, UNSPECIFIED 12/26/2016 LUIGI ROGEL MD Ot C91.10 CHRONIC LYMPHOCYTIC LEUK OF B-CELL TYPE 12/26/2016 LUIGI ROGEL MD Ot E11.9 TYPE 2 DIABETES MELLITUS WITHOUT COMPLIC 12/26/2016 LUIGI ROGEL MD Ot E78.5 HYPERLIPIDEMIA, UNSPECIFIED 12/26/2016 LUIGI ROGEL MD Ot I10 ESSENTIAL (PRIMARY) HYPERTENSION 12/26/2016 LUIGI ROGEL MD Ot I25.10 ATHSCL HEART DISEASE OF [place] CORONARY 12/26/2016 LUIGI ROGEL MD Ot Z45.2 ENCOUNTER FOR ADJUSTMENT AND MANAGEMENT 12/26/2016 LUIGI ROGEL MD Ot Z79.01 GROUP HOME (CURRENT) USE OF ANTICOAGULANT 12/26/2016 LUIGI ROGEL MD Ot Z79.899 OTHER [place] (CURRENT) DRUG THERAPY 12/26/2016 LUIGI ROGEL MD Ot Z95.1 PRESENCE OF AORTOCORONARY BYPASS GRAFT 12/26/2016 Ot 442.2 ILIAC ARTERY ANEURYSM 12/26/2016 Ot 562.10 DIVERTICULOSIS COLON (W/O MENT OF HEMORR 12/26/2016 Ot 599.70 HEMATURIA, UNSPECIFIED 12/26/2016 Ot 600.00 HYPERTROPHY (BENIGN) OF PROSTATE W/O URI 12/26/2016 DEIDRE AMIN ETL TESTER Ot 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 INFARCT 12/26/2016 DEIDRE AMIN ETL TESTER Ot 780.8 GENERALIZED HYPERHIDROSIS 12/26/2016 ALEX CHANDLER Ot 288.61 LYMPHOCYTOSIS (SYMPTOMATIC) 12/26/2016 PEBBLES FRANCO, LUIGI Foote Ot 204.10 CHRONIC LYMPHOID LEUKEMIA, 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 12/26/2016 LUIGI ROGEL MD Ot 562.10 DIVERTICULOSIS COLON (W/O MENT OF HEMORR 12/26/2016 PEBBLES FRANCO, LUIGI Foote Ot 571.8 CHRONIC LIVER DIS NEC 12/26/2016 JESUS TESFAYE Ot C91.10 CHRONIC LYMPHOCYTIC LEUK OF B-CELL TYPE 12/26/2016 JESUS TESFAYE CRYSTAL FLAT GRINDER Ot E11.9 TYPE 2 DIABETES MELLITUS WITHOUT COMPLIC 12/26/2016 JESUS TESFAYEP Ot E78.5 HYPERLIPIDEMIA, UNSPECIFIED 12/26/2016 JESUS TESFAYE Ot I12.9 HYPERTENSIVE CHRONIC KIDNEY DISEASE W ST 12/26/2016 JESUS TESFAYE Ot I25.10 ATHSCL HEART DISEASE OF [place] CORONARY 12/26/2016 JESUS TESFAYEP Ot Z79.01 GROUP HOME (CURRENT) USE OF ANTICOAGULANT 12/26/2016 JESUS TESFAYEP Ot Z79.899 OTHER GROUP HOME (CURRENT) DRUG THERAPY 12/26/2016 JESUS TESFAYEP Ot Z95.1 PRESENCE OF AORTOCORONARY BYPASS GRAFT 12/26/2016 CHARLOTTE FRANCO, KINJAL Anna Ot C91.10 CHRONIC LYMPHOCYTIC LEUK OF B-CELL TYPE 12/26/2016 CHARLOTTE FRANCO, KINJAL Anna Ot Z01.818 ENCOUNTER FOR OTHER PREPROCEDURAL EXAMIN 12/27/2016 ALEX CHANDLER Ot J18.9 PNEUMONIA, UNSPECIFIED ORGANISM 12/27/2016 ALEX CHANDLER Ot R05 COUGH 01/16/2017 ALEX CHANDLER Ot J18.9 PNEUMONIA, UNSPECIFIED ORGANISM 01/16/2017 RAMESHALEX CRYSTAL FLAT GRINDER Ot R05 COUGH 01/30/2017 KEN PRABHAKAR DO Ot M25.511 PAIN IN RIGHT SHOULDER 01/30/2017 KEN PRABHAKAR DO Ot M75.111 INCOMPLETE ROTATR-CUFF TEAR/RUPTR OF R S 03/05/2017 KINJAL PORTER MD, Ot C85.10 UNSPECIFIED B-CELL LYMPHOMA, UNSPECIFIED 03/05/2017 KINJAL PORTER MD Ot Z01.818 ENCOUNTER FOR OTHER PREPROCEDURAL EXAMIN 03/05/2017 KINJAL PORTER MD, Ot Z11.2 ENCOUNTER FOR SCREENING FOR OTHER BACTER 03/06/2017 KINJAL PORTER MD, Ot C85.10 UNSPECIFIED B-CELL LYMPHOMA, UNSPECIFIED 03/06/2017 KINJAL PORTER MD Ot Z01.818 ENCOUNTER FOR OTHER PREPROCEDURAL EXAMIN 03/06/2017 KINJAL PORTER MD Ot Z11.2 ENCOUNTER FOR [...] MD, Ot I25.10 ATHSCL HEART DISEASE OF [place] CORONARY 03/25/2017 LUIGI ROGEL MD Ot Z45.2 ENCOUNTER FOR ADJUSTMENT AND MANAGEMENT 03/25/2017 LUIGI ROGEL MD Ot Z79.01 GROUP HOME (CURRENT) USE OF ANTICOAGULANT 03/25/2017 LUIGI ROGEL MD Ot Z79.899 OTHER [place] (CURRENT) DRUG THERAPY 03/25/2017 LUIGI ROGEL MD Ot Z95.1 PRESENCE OF AORTOCORONARY BYPASS GRAFT 05/27/2017 Ot V72.84 EXAM PRE-OPERATIVE NOS 05/27/2017 LUIGI ROGEL MD Ot 204.10 CHRONIC LYMPHOID LEUKEMIA, 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 05/27/2017 LUIGI ROGEL MD Ot 562.10 DIVERTICULOSIS COLON (W/O MENT OF HEMORR 05/27/2017 LUIGI ROGEL MD Ot 571.8 CHRONIC LIVER DIS NEC 05/27/2017 JESUS TESFAYEP Ot C91.10 CHRONIC LYMPHOCYTIC LEUK OF B-CELL TYPE 05/27/2017 JESUS TESFAYE CRYSTAL FLAT GRINDER Ot E11.9 TYPE 2 DIABETES MELLITUS WITHOUT COMPLIC 05/27/2017 JESUS TESFAYEP Ot E78.5 HYPERLIPIDEMIA, UNSPECIFIED 05/27/2017 JESUS TESFAYE CRYSTAL FLAT GRINDER Ot I12.9 HYPERTENSIVE CHRONIC KIDNEY DISEASE W ST 05/27/2017 JESUS TESFAYEP Ot I25.10 ATHSCL HEART DISEASE OF [place] CORONARY 05/27/2017 JESUS TESFAYE CRYSTAL FLAT GRINDER Ot Z79.01 [place] (CURRENT) USE OF ANTICOAGULANT 05/27/2017 JESUS TESFAYE CRYSTAL FLAT GRINDER Ot Z79.899 OTHER GROUP HOME (CURRENT) DRUG THERAPY 05/27/2017 JESUS TESFAYEP Ot Z95.1 PRESENCE OF AORTOCORONARY BYPASS GRAFT 05/27/2017 KINJAL PORTER MD Ot C91.10 CHRONIC LYMPHOCYTIC LEUK OF B-CELL TYPE 05/27/2017 KINJAL PORTER MD Ot Z01.818 ENCOUNTER FOR OTHER PREPROCEDURAL EXAMIN 05/27/2017 MADYSON MARTINEZ MD Ot K57.90 DVRTCLOS OF INTEST, PART UNSP, W/O PERF 05/27/2017 MADYSON MARTINEZ MD Ot K76.0 FATTY (CHANGE OF) LIVER, NOT ELSEWHERE C 05/27/2017 MADYSON MARTINEZ MD, Ot N40.0 ENLARGED PROSTATE WITHOUT LOWER URINARY 05/27/2017 MADYSON MARTINEZ MD Ot R31.9 HEMATURIA, UNSPECIFIED 05/27/2017 LUIGI ROGEL MD Ot C91.10 CHRONIC LYMPHOCYTIC LEUK OF B-CELL TYPE 05/27/2017 LUIGI ROGEL MD Ot E11.9 TYPE 2 DIABETES MELLITUS WITHOUT COMPLIC 05/27/2017 LUIGI ROGEL MD, Ot E78.5 HYPERLIPIDEMIA, UNSPECIFIED 05/27/2017 LUIGI ROGEL MD Ot I10 ESSENTIAL (PRIMARY) HYPERTENSION 05/27/2017 LUIGI ROGEL MD Ot I25.10 ATHSCL HEART DISEASE OF [place] CORONARY 05/27/2017 LUIGI ROGEL MD Ot Z45.2 ENCOUNTER FOR ADJUSTMENT AND MANAGEMENT 05/27/2017 LUIGI ROGEL MD, Ot Z79.01 GROUP HOME (CURRENT) USE OF ANTICOAGULANT 05/27/2017 LUIGI ROGEL MD Ot Z79.899 OTHER [place] (CURRENT) DRUG THERAPY 05/27/2017 LUIGI ROGEL MD Ot Z95.1 PRESENCE OF AORTOCORONARY BYPASS GRAFT 05/28/2017 LUIGI ROGEL MD, Ot C91.10 CHRONIC LYMPHOCYTIC LEUK OF B-CELL TYPE 05/28/2017 LUIGI ROGEL MD, Ot E11.9 TYPE 2 DIABETES MELLITUS WITHOUT COMPLIC 05/28/2017 LUIGI ROGEL MD, Ot E78.5 HYPERLIPIDEMIA, UNSPECIFIED 05/28/2017 LUIGI ROGEL MD Ot I10 ESSENTIAL (PRIMARY) HYPERTENSION 05/28/2017 LUIGI ROGEL MD, Ot I25.10 ATHSCL HEART DISEASE OF [place] CORONARY 05/28/2017 LUIGI ROGEL MD, Ot Z45.2 ENCOUNTER FOR ADJUSTMENT AND MANAGEMENT 05/28/2017 LUIGI ROGEL MD, Ot Z79.01 GROUP HOME (CURRENT) USE OF ANTICOAGULANT 05/28/2017 LUIGI ROGEL MD, Ot Z79.899 OTHER [place] (CURRENT) DRUG THERAPY 05/28/2017 LUIGI ROGEL MD, Ot Z95.1 PRESENCE OF AORTOCORONARY BYPASS GRAFT 08/16/2017 LUIGI ROGEL MD, Ot C91.10 CHRONIC LYMPHOCYTIC LEUK OF B-CELL TYPE 08/16/2017 LUIGI ROGEL MD Ot E11.9 TYPE 2 DIABETES MELLITUS WITHOUT COMPLIC 08/16/2017 LUIGI ROGEL MD, Ot E78.5 HYPERLIPIDEMIA, UNSPECIFIED 08/16/2017 LUIGI ROGEL MD Ot I10 ESSENTIAL (PRIMARY) HYPERTENSION 08/16/2017 LUIGI ROGEL MD Ot I25.10 ATHSCL HEART DISEASE OF [place] CORONARY 08/16/2017 LUIGI ROGEL MD Ot Z79.01 GROUP HOME (CURRENT) USE OF ANTICOAGULANT 08/16/2017 LUIGI ROGEL MD Ot Z79.899 OTHER [place] (CURRENT) DRUG THERAPY 08/16/2017 LUIGI ROGEL MD Ot Z95.1 PRESENCE OF AORTOCORONARY BYPASS GRAFT 08/25/2017 LUIGI ROGEL MD Ot C91.10 CHRONIC LYMPHOCYTIC LEUK OF B-CELL TYPE 08/25/2017 LUIGI ROGEL MD Ot E11.9 TYPE 2 DIABETES MELLITUS WITHOUT COMPLIC 08/25/2017 LUIGI ROGEL MD Ot E78.5 HYPERLIPIDEMIA, UNSPECIFIED 08/25/2017 LUIGI ROGEL MD Ot I10 ESSENTIAL (PRIMARY) HYPERTENSION 08/25/2017 LUIGI ROGEL MD Ot I25.10 ATHSCL HEART DISEASE OF [place] CORONARY 08/25/2017 LUIGI ROGEL MD Ot Z79.01 [place] (CURRENT) USE OF ANTICOAGULANT 08/25/2017 LUIGI ROGEL MD, Ot Z79.899 OTHER [place] (CURRENT) DRUG THERAPY 08/25/2017 LUIGI ROGEL MD Ot Z95.1 PRESENCE OF AORTOCORONARY BYPASS GRAFT 08/25/2017 Ot V72.84 EXAM PRE-OPERATIVE NOS 08/25/2017 LUIGI ROGEL MD Ot 204.10 CHRONIC LYMPHOID LEUKEMIA, 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 08/25/2017 LUIGI ROGEL MD Ot 562.10 DIVERTICULOSIS COLON (W/O MENT OF HEMORR 08/25/2017 LUIGI ROGEL MD Ot 571.8 CHRONIC LIVER DIS NEC 08/25/2017 JESUS TESFAYE Ot C91.10 CHRONIC LYMPHOCYTIC LEUK OF B-CELL TYPE 08/25/2017 JESUS TESFAYE Ot E11.9 TYPE 2 DIABETES MELLITUS WITHOUT COMPLIC 08/25/2017 JESUS TESFAYE Ot E78.5 HYPERLIPIDEMIA, UNSPECIFIED 08/25/2017 JESUS TESFAYEP Ot I12.9 HYPERTENSIVE CHRONIC KIDNEY DISEASE W ST 08/25/2017 JESUS TESFAYE Ot I25.10 ATHSCL HEART DISEASE OF [place] CORONARY 08/25/2017 JESUS TESFAYE Ot Z79.01 GROUP HOME (CURRENT) USE OF ANTICOAGULANT 08/25/2017 JESUS TESFAYE Ot Z79.899 OTHER GROUP HOME (CURRENT) DRUG THERAPY 08/25/2017 JESUS TESFAYE Ot Z95.1 PRESENCE OF AORTOCORONARY BYPASS GRAFT 08/25/2017 CHARLOTTE FRANCO, KINJAL Anna Ot C91.10 CHRONIC LYMPHOCYTIC LEUK OF B-CELL TYPE 08/25/2017 CHARLOTTE FRANCO, KINJAL Anna Ot Z01.818 ENCOUNTER [...] DIABETES MELLITUS WITHOUT COMPLIC 08/26/2017 EDMUNDO MITCHELL MD Ot E78.5 HYPERLIPIDEMIA, UNSPECIFIED 08/26/2017 EDMUNDO MITCHELL MD, Ot I10 ESSENTIAL (PRIMARY) HYPERTENSION 08/26/2017 EDMUNDO MITCHELL MD, Ot I25.10 ATHSCL HEART DISEASE OF [place] CORONARY 08/26/2017 EDMUNDO MITCHELL MD Ot Z79.01 [place] (CURRENT) USE OF ANTICOAGULANT 08/26/2017 EDMUNDO MITCHELL MD, Ot Z79.899 OTHER [place] (CURRENT) DRUG THERAPY 08/26/2017 EDMUNDO MITCHELL MD, Ot Z95.1 PRESENCE OF AORTOCORONARY BYPASS GRAFT 09/03/2017 EDMUNDO MITCHELL MD, Ot C91.10 CHRONIC LYMPHOCYTIC LEUK OF B-CELL TYPE 09/03/2017 EDMUNDO MITCHELL MD, Ot E11.9 TYPE 2 DIABETES MELLITUS WITHOUT COMPLIC 09/03/2017 EDMUNDO MITCHELL MD Ot E78.5 HYPERLIPIDEMIA, UNSPECIFIED 09/03/2017 EDMUNDO MITCHELL MD Ot I10 ESSENTIAL (PRIMARY) HYPERTENSION 09/03/2017 EDMUNDO MITCHELL MD Ot I25.10 ATHSCL HEART DISEASE OF [place] CORONARY 09/03/2017 EDMUNDO MITCHELL MD Ot Z79.01 [place] (CURRENT) USE OF ANTICOAGULANT 09/03/2017 EDMUNDO MITCHELL MD Ot Z79.899 OTHER [place] (CURRENT) DRUG THERAPY 09/03/2017 EDMUNDO MITCHELL MD Ot Z95.1 PRESENCE OF AORTOCORONARY BYPASS GRAFT 09/04/2017 JOSE JACOB MD Ot C91.10 CHRONIC LYMPHOCYTIC LEUK OF B-CELL TYPE 09/04/2017 JOSE JACOB MD Ot E11.9 TYPE 2 DIABETES MELLITUS WITHOUT COMPLIC 09/04/2017 JOSE JACOB MD Ot E78.5 HYPERLIPIDEMIA, UNSPECIFIED 09/04/2017 JOSE JACOB MD Ot I10 ESSENTIAL (PRIMARY) HYPERTENSION 09/04/2017 JOSE JACOB MD Ot I25.10 ATHSCL HEART DISEASE OF [place] CORONARY 09/04/2017 JOSE JACOB MD Ot Z79.01 [place] (CURRENT) USE OF ANTICOAGULANT 09/04/2017 JOSE JACOB MD Ot Z79.899 OTHER GROUP HOME (CURRENT) DRUG THERAPY 09/04/2017 JOSE JACOB MD Ot Z95.1 PRESENCE OF AORTOCORONARY BYPASS GRAFT 09/18/2017 Ot V72.84 EXAM PRE-OPERATIVE NOS 09/18/2017 Ot 427.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 09/18/2017 Ot 785.1 PALPITATIONS 09/18/2017 Ot 427.31 ATRIAL FIBRILLATION 09/18/2017 Ot 427.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 09/18/2017 Ot 785.1 PALPITATIONS 09/18/2017 OSCAR VALENCIA Ot 414.01 CORONARY ATHEROSCLEROSIS OF [place] CORON 09/18/2017 OSCAR VALENCIA Ot 427.31 ATRIAL FIBRILLATION 09/18/2017 OSCAR VALENCIA Ot V45.81 AORTOCORONARY BYPASS 09/18/2017 ANATOLIY LUNA CRYSTAL FLAT GRINDER Ot 786.09 RESPIRATORY ABNORM NEC 09/18/2017 ANATOLIY LUNA CRYSTAL FLAT GRINDER Ot 786.2 COUGH 09/18/2017 Ot V72.84 EXAM PRE-OPERATIVE NOS 09/18/2017 DEIDRE AMIN APRN Ot 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 INFARCT 09/18/2017 DEIDRE AMIN APRN Ot 780.8 GENERALIZED HYPERHIDROSIS 09/18/2017 ALEX CHANDLER Ot 288.61 LYMPHOCYTOSIS (SYMPTOMATIC) 09/18/2017 LUIGI ROGEL MD Ot 204.10 CHRONIC LYMPHOID LEUKEMIA, 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 09/18/2017 LUIGI ROGEL MD Ot 562.10 DIVERTICULOSIS COLON (W/O MENT OF HEMORR 09/18/2017 PEBBLES FRANCO, LUIGI Foote Ot 571.8 CHRONIC LIVER DIS NEC 09/18/2017 JESUS TESFAYE Ot C91.10 CHRONIC LYMPHOCYTIC LEUK OF B-CELL TYPE 09/18/2017 JESUS TESFAYE Ot E11.9 TYPE 2 DIABETES MELLITUS WITHOUT COMPLIC 09/18/2017 JESUS TESFAYE Ot E78.5 HYPERLIPIDEMIA, UNSPECIFIED 09/18/2017 JESUS TESFAYE Ot I12.9 HYPERTENSIVE CHRONIC KIDNEY DISEASE W ST 09/18/2017 JESUS TESFAYE Ot I25.10 ATHSCL HEART DISEASE OF [place] CORONARY 09/18/2017 JESUS TESFAYE Ot Z79.01 [place] (CURRENT) USE OF ANTICOAGULANT 09/18/2017 JESUS TESFAYE Ot Z79.899 OTHER [place] (CURRENT) DRUG THERAPY 09/18/2017 JESUS TESFAYE Ot Z95.1 PRESENCE OF AORTOCORONARY BYPASS GRAFT 09/18/2017 KINJAL PORTER MD, Ot C91.10 CHRONIC LYMPHOCYTIC LEUK OF B-CELL TYPE 09/18/2017 KINJAL PORTER MD, Ot Z01.818 ENCOUNTER FOR OTHER PREPROCEDURAL EXAMIN 09/18/2017 MADYSON MARTINEZ MD Ot K57.90 DVRTCLOS OF INTEST, PART UNSP, W/O PERF 09/18/2017 MADYSON MARTINEZ MD Ot K76.0 FATTY (CHANGE OF) LIVER, NOT ELSEWHERE C 09/18/2017 MADYSON MARTINEZ MD, Ot N40.0 ENLARGED PROSTATE [...] I10 ESSENTIAL (PRIMARY) HYPERTENSION 09/18/2017 JOSE JACOB MD Ot I25.10 ATHSCL HEART DISEASE OF [place] CORONARY 09/18/2017 JOSE JACOB MD Ot Z79.01 [place] (CURRENT) USE OF ANTICOAGULANT 09/18/2017 JOSE JACOB MD Ot Z79.899 OTHER [place] (CURRENT) DRUG THERAPY 09/18/2017 JOSE JACOB MD [...] MD Ot I25.10 ATHSCL HEART DISEASE OF [place] CORONARY 10/10/2017 JOSE JACOB MD Ot Z79.01 [place] (CURRENT) USE OF ANTICOAGULANT 10/10/2017 JOSE JACOB MD Ot Z79.899 OTHER [place] (CURRENT) DRUG THERAPY 10/10/2017 JOSE JACOB MD Ot Z95.1 PRESENCE OF AORTOCORONARY BYPASS GRAFT 10/15/2017 YEHUDA FRANCO FACC, ALI FACP CCDS Ot C91.10 CHRONIC LYMPHOCYTIC LEUK OF B-CELL TYPE 10/15/2017 YEHUDA FRANCO FACC, ALI FACP CCDS Ot E78.4 OTHER HYPERLIPIDEMIA 10/15/2017 YEHUDA FRANCO FACC, ALI FACP CCDS Ot I10 ESSENTIAL (PRIMARY) HYPERTENSION 10/15/2017 YEHUDA FRANCO FACOmar, ALI FACP CCDS Ot I25.10 ATHSCL HEART DISEASE OF [place] CORONARY 10/15/2017 YEHUDA FRANCO FACC, ALI FACP [...] MD Ot I25.10 ATHSCL HEART DISEASE OF [place] CORONARY 10/27/2017 JOSE JACOB MD Ot Z79.01 STUNTMAN (CURRENT) USE OF ANTICOAGULANT 10/27/2017 JOSE JACOB MD Ot Z79.899 OTHER [place] (CURRENT) DRUG THERAPY 10/27/2017 JOSE JACOB MD [...] MD Ot I25.10 ATHSCL HEART DISEASE OF [place] CORONARY 12/02/2017 JOSE JACOB MD Ot Z79.01 GROUP HOME (CURRENT) USE OF ANTICOAGULANT 12/02/2017 JOSE JACOB MD Ot Z79.899 OTHER GROUP HOME (CURRENT) DRUG THERAPY 12/02/2017 JOSE JACOB MD [...] MD Ot I25.10 ATHSCL HEART DISEASE OF [place] CORONARY 12/03/2017 JOSE JACOB MD Ot Z79.01 STUNTMAN (CURRENT) USE OF ANTICOAGULANT 12/03/2017 JOSE JACOB MD Ot Z79.899 OTHER [place] (CURRENT) DRUG THERAPY 12/03/2017 JOSE JACOB MD [...] MD Ot I25.10 ATHSCL HEART DISEASE OF [place] CORONARY 12/12/2017 JOSE JACOB MD Ot Z79.01 GROUP HOME (CURRENT) USE OF ANTICOAGULANT 12/12/2017 JOSE JACOB MD Ot Z79.899 OTHER [place] (CURRENT) DRUG THERAPY 12/12/2017 JOSE JACOB MD [...] MD Ot I25.10 ATHSCL HEART DISEASE OF [place] CORONARY 01/09/2018 JOSE JACOB MD Ot Z79.01 GROUP HOME (CURRENT) USE OF ANTICOAGULANT 01/09/2018 JOSE JACOB MD Ot Z79.899 OTHER [place] (CURRENT) DRUG THERAPY 01/09/2018 JOSE JACOB MD Ot Z95.1 PRESENCE OF AORTOCORONARY BYPASS GRAFT 02/03/2018 ASTRID WISDOM MD Ot E78.00 PURE HYPERCHOLESTEROLEMIA, UNSPECIFIED 02/03/2018 ASTRID WISDOM MD Ot G47.30 SLEEP APNEA, UNSPECIFIED 02/03/2018 ASTRID WISDOM MD Ot I25.10 ATHSCL HEART DISEASE OF [place] CORONARY 02/03/2018 ASTRID WISDOM MD Ot I25.2 OLD MYOCARDIAL INFARCTION 02/03/2018 ASTRID WISDOM MD Ot I48.91 UNSPECIFIED ATRIAL FIBRILLATION 02/03/2018 ASTRID WISDOM MD Ot K21.9 GASTRO-ESOPHAGEAL REFLUX DISEASE WITHOUT 02/03/2018 ASTRID WISDOM MD Ot R10.9 UNSPECIFIED ABDOMINAL PAIN 02/03/2018 ASTRID WISDOM MD Ot S39.012A STRAIN OF MUSCLE, FASCIA AND TENDON OF L 02/03/2018 ASTRID WISDOM MD, Ot X58.XXXA EXPOSURE TO OTHER SPECIFIED FACTORS, INI 02/03/2018 ASTRID WISDOM MD, Ot Z79.01 GROUP HOME (CURRENT) USE OF ANTICOAGULANT 02/03/2018 ASTRID WISDOM MD Ot Z79.82 [place]UNTMAN (CURRENT) USE OF ASPIRIN 02/03/2018 ASTRID WISDOM MD Ot Z85.6 PERSONAL HISTORY OF LEUKEMIA 02/03/2018 ASTRID WISDOM MD, Ot Z87.19 PERSONAL HISTORY OF OTHER DISEASES OF TH 02/03/2018 ASTRID WISDOM MD, Ot Z87.891 PERSONAL HISTORY OF NICOTINE DEPENDENCE 02/03/2018 ASTRID WISDOM MD, Ot Z95.1 PRESENCE OF AORTOCORONARY BYPASS GRAFT 02/03/2018 ASTRID WISDOM MD Ot Z95.5 PRESENCE OF CORONARY ANGIOPLASTY IMPLANT 02/05/2018 ASTRID WISDOM MD Ot E78.00 PURE HYPERCHOLESTEROLEMIA, UNSPECIFIED 02/05/2018 ASTRID WISDOM MD Ot G47.30 SLEEP APNEA, UNSPECIFIED 02/05/2018 ASTRID WISDOM MD, Ot I25.10 ATHSCL HEART DISEASE OF [place] CORONARY 02/05/2018 ASTRID WISDOM MD Ot I25.2 [...] OTHER SPECIFIED FACTORS, INI 02/05/2018 ASTRID WISDOM MD, Ot Z79.01 GROUP HOME (CURRENT) USE OF ANTICOAGULANT 02/05/2018 ASTRID WISDOM MD Ot Z79.82 GROUP HOME (CURRENT) USE OF ASPIRIN 02/05/2018 ASTRID WISDOM MD Ot Z85.6 PERSONAL HISTORY OF LEUKEMIA 02/05/2018 ASTRID WISDOM MD Ot Z87.19 PERSONAL HISTORY OF OTHER DISEASES OF TH 02/05/2018 ASTRID WISDOM MD Ot Z87.891 PERSONAL HISTORY OF NICOTINE DEPENDENCE [...] MD Ot I25.10 ATHSCL HEART DISEASE OF [place] CORONARY 03/04/2018 JOSE JACOB MD Ot Z79.01 STUNTMAN (CURRENT) USE OF ANTICOAGULANT 03/04/2018 JOSE JACOB MD Ot Z79.899 OTHER GROUP HOME (CURRENT) DRUG THERAPY 03/04/2018 JOSE JACOB MD [...] MD Ot I25.10 ATHSCL HEART DISEASE OF [place] CORONARY 03/05/2018 JOSE JACOB MD Ot Z79.01 GROUP HOME (CURRENT) USE OF ANTICOAGULANT 03/05/2018 JOSE JACOB MD Ot Z79.899 OTHER [place] (CURRENT) DRUG THERAPY 03/05/2018 JOSE JACOB MD [...] MD Ot I25.10 ATHSCL HEART DISEASE OF [place] CORONARY 03/25/2018 JOSE JACOB MD Ot Z79.01 STUNTMAN (CURRENT) USE OF ANTICOAGULANT 03/25/2018 JOSE JACOB MD Ot Z79.899 OTHER [place] (CURRENT) DRUG THERAPY 03/25/2018 JOSE JACOB MD [...] MD Ot I25.10 ATHSCL HEART DISEASE OF [place] CORONARY 04/10/2018 JOSE JACOB MD Ot Z79.01 STUNTMAN (CURRENT) USE OF ANTICOAGULANT 04/10/2018 JOSE JACOB MD Ot Z79.899 OTHER [place] (CURRENT) DRUG THERAPY 04/10/2018 JOSE JACOB MD [...] MD Ot I25.10 ATHSCL HEART DISEASE OF [place] CORONARY 06/03/2018 JOSE JACOB MD Ot Z79.01 GROUP HOME (CURRENT) USE OF ANTICOAGULANT 06/03/2018 JOSE JACOB MD Ot Z79.899 OTHER [place] (CURRENT) DRUG THERAPY 06/03/2018 JOSE JACOB MD [...] MD Ot I25.10 ATHSCL HEART DISEASE OF [place] CORONARY 06/04/2018 JOSE JACOB MD Ot Z79.01 STUNTMAN (CURRENT) USE OF ANTICOAGULANT 06/04/2018 JOSE JACOB MD Ot Z79.899 OTHER [place] (CURRENT) DRUG THERAPY 06/04/2018 JOSE JACOB MD Ot Z95.1 PRESENCE OF AORTOCORONARY BYPASS GRAFT 06/11/2018 Ot 427.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 06/11/2018 Ot 785.1 PALPITATIONS 06/11/2018 Ot 427.31 ATRIAL FIBRILLATION 06/11/2018 Ot 427.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 06/11/2018 Ot 785.1 PALPITATIONS 06/11/2018 OSCAR VALENCIA Ot 414.01 CORONARY ATHEROSCLEROSIS OF [place] CORON 06/11/2018 OSCAR VALENCIA Ot 427.31 ATRIAL FIBRILLATION 06/11/2018 OSCAR VALENCIA Ot V45.81 AORTOCORONARY BYPASS 06/11/2018 ANATOLIY LUNA CRYSTAL FLAT GRINDER Ot 786.09 RESPIRATORY ABNORM NEC 06/11/2018 ANATOLIY LUNA CRYSTAL [employer]AT GRINDER Ot 786.2 COUGH 06/11/2018 Ot V72.84 EXAM PRE-OPERATIVE NOS 06/11/2018 DEIDRE AMIN ETL TESTER Ot 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 INFARCT 06/11/2018 DEIDRE AMIN ETL TESTER Ot 780.8 GENERALIZED HYPERHIDROSIS 06/11/2018 ALEX CHANDLER CR[employer]STAL [employer]AT GRINDER Ot 288.61 LYMPHOCYTOSIS (SYMPTOMATIC) 06/11/2018 PEBBLES FRANCO, LUIGI Foote Ot 204.10 CHRONIC LYMPHOID LEUKEMIA, 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 06/11/2018 LUIGI ROGEL MD Ot 562.10 DIVERTICULOSIS COLON (W/O MENT OF HEMORR 06/11/2018 LUIGI ROGEL MD Ot 571.8 CHRONIC LIVER DIS NEC 06/11/2018 JESUS TESFAYE Ot C91.10 CHRONIC LYMPHOCYTIC LEUK OF B-CELL TYPE 06/11/2018 JESUS TESFAYE Ot E11.9 TYPE 2 DIABETES MELLITUS WITHOUT COMPLIC 06/11/2018 MAURO TESFAYETISH Arreguin CRYSTAL [employer]AT GRINDER Ot E78.5 HYPERLIPIDEMIA, UNSPECIFIED 06/11/2018 MAURO TESFAYETISH Arreguin CR[employer]ST[employer]AT GRINDER Ot I12.9 HYPERTENSIVE CHRONIC KIDNEY DISEASE W ST 06/11/2018 BRIEN JESUS Arreguin CR[employer] GRINDER Ot I25.10 ATHSCL HEART DISEASE OF [place] CORONARY 06/11/2018 BRIEN JESUS Arreguin CRYSTAL [employer]AT GRINDER Ot Z79.01 GROUP HOME (CURRENT) USE OF ANTICOAGULANT 06/11/2018 MAURO TESFAYETISH Arreguin CRYSTAL [employer]AT GRINDER Ot Z79.899 OTHER GROUP HOME (CURRENT) DRUG THERAPY 06/11/2018 BRIEN JESUS Arreguin CRYSTAL [employer]AT GRINDER Ot Z95.1 PRESENCE OF AORTOCORONARY BYPASS GRAFT 06/11/2018 CHARLOTTE FRANCO, KINJAL Anna Ot C91.10 CHRONIC LYMPHOCYTIC LEUK OF B-CELL TYPE 06/11/2018 KINJAL PORTER MD, Ot Z01.818 ENCOUNTER FOR OTHER PREPROCEDURAL EXAMIN 06/11/2018 MADYSON MARTINEZ MD Ot K57.90 DVRTCLOS OF INTEST, PART UNSP, W/O PERF 06/11/2018 MADYSON MARTINEZ MD Ot K76.0 FATTY (CHANGE OF) LIVER, NOT ELSEWHERE C 06/11/2018 MADYSON MARTINEZ MD Ot N40.0 ENLARGED PROSTATE WITHOUT LOWER URINARY 06/11/2018 MADYSON MARTINEZ MD Ot R31.9 HEMATURIA, UNSPECIFIED 06/11/2018 ALEX CHANDLER CRYSTAL [employer]AT GRINDER Ot J18.9 PNEUMONIA, UNSPECIFIED ORGANISM 06/11/2018 ALEX CHANDLER CRYSTAL [employer]AT GRINDER Ot R05 COUGH 06/11/2018 YEHUDA FRANCO FACC, LUIS FACP CCDS Ot C91.10 CHRONIC LYMPHOCYTIC LEUK OF B-CELL TYPE 06/11/2018 YEHUDA FRANCO FACC, LUIS FACP CCDS Ot E78.4 OTHER HYPERLIPIDEMIA 06/11/2018 YEHUDA FRANCO FACC, LUIS FACP CCDS Ot I10 ESSENTIAL (PRIMARY) HYPERTENSION 06/11/2018 YEHUDA FRANCO FACC, LUIS FACP CCDS Ot I25.10 ATHSCL HEART DISEASE OF [place] CORONARY 06/11/2018 YEHUDA FRANCO FACC, ALI FACP [...] MD Ot I25.10 ATHSCL HEART DISEASE OF [place] CORONARY 06/11/2018 JOSE JACOB MD Ot Z79.01 GROUP HOME (CURRENT) USE OF ANTICOAGULANT 06/11/2018 JOSE JACOB MD Ot Z79.899 OTHER GROUP HOME (CURRENT) DRUG THERAPY 06/11/2018 JOSE JACOB MD [...] MD Ot I25.10 ATHSCL HEART DISEASE OF [place] CORONARY 06/12/2018 JOSE JACOB MD Ot Z79.01 GROUP HOME (CURRENT) USE OF ANTICOAGULANT 06/12/2018 JOSE JACOB MD Ot Z79.899 OTHER GROUP HOME (CURRENT) DRUG THERAPY 06/12/2018 JOSE JACOB MD [...] MD Ot I25.10 ATHSCL HEART DISEASE OF [place] CORONARY 06/16/2018 JOSE JACOB MD Ot Z79.01 GROUP HOME (CURRENT) USE OF ANTICOAGULANT 06/16/2018 JOSE JACOB MD Ot Z79.899 OTHER GROUP HOME (CURRENT) DRUG THERAPY 06/16/2018 JOSE JACOB MD Ot Z95.1 PRESENCE OF AORTOCORONARY BYPASS GRAFT 07/07/2018 JOSE JACOB MD Ot C91.10 CHRONIC LYMPHOCYTIC LEUK OF B-CELL TYPE 07/07/2018 JOSE JACOB MD Ot E11.9 TYPE 2 DIABETES MELLITUS WITHOUT COMPLIC 07/07/2018 JOSE JACOB MD Ot E78.5 HYPERLIPIDEMIA, UNSPECIFIED 07/07/2018 JOSE JACOB MD Ot I10 ESSENTIAL (PRIMARY) HYPERTENSION 07/07/2018 JOSE JACOB MD Ot I25.10 ATHSCL HEART DISEASE OF [place] CORONARY 07/07/2018 JOSE JACOB MD Ot Z79.01 GROUP HOME (CURRENT) USE OF ANTICOAGULANT 07/07/2018 JOSE JACOB MD Ot Z79.899 OTHER [place] (CURRENT) DRUG THERAPY 07/07/2018 JOSE JACOB MD Ot Z95.1 PRESENCE OF AORTOCORONARY BYPASS GRAFT 08/07/2018 JEFFERY AYALA APRN Ot M17.12 UNILATERAL PRIMARY OSTEOARTHRITIS, LEFT 11/03/2018 Shoshana CAR MD Ot D50.0 IRON DEFICIENCY ANEMIA SECONDARY TO BLOO 11/03/2018 Shoshana CAR MD Ot E78.00 PURE HYPERCHOLESTEROLEMIA, UNSPECIFIED 11/03/2018 Shoshana CAR MD Ot G47.30 SLEEP APNEA, UNSPECIFIED 11/03/2018 Shoshana CAR MD Ot I12.9 HYPERTENSIVE CHRONIC KIDNEY DISEASE W ST 11/03/2018 Shoshana CAR MD Ot I21.11 STEMI INVOLVING RIGHT CORONARY ARTERY 11/03/2018 Shoshana CAR MD Ot I25.10 ATHSCL HEART DISEASE OF [place] CORONARY 11/03/2018 Shoshana CAR MD Ot I48.0 PAROXYSMAL ATRIAL FIBRILLATION 11/03/2018 Shoshana CAR MD Ot I73.9 PERIPHERAL VASCULAR DISEASE, UNSPECIFIED 11/03/2018 Shoshana CAR MD Ot K21.9 GASTRO-ESOPHAGEAL REFLUX DISEASE WITHOUT 11/03/2018 Shoshana CAR MD Ot N17.9 ACUTE KIDNEY FAILURE, UNSPECIFIED 11/03/2018 Shoshana CAR MD Ot N18.2 CHRONIC KIDNEY DISEASE, STAGE 2 (MILD) 11/03/2018 JOSEP FRANCO, Shoshana JENKINS Ot R79.1 ABNORMAL COAGULATION PROFILE 11/03/2018 Shoshana CAR MD Ot Z79.01 [place] (CURRENT) USE OF ANTICOAGULANT 11/03/2018 Shoshana CAR MD Ot Z79.82 GROUP HOME (CURRENT) USE OF ASPIRIN 11/03/2018 Shoshana CAR MD, Ot Z79.899 OTHER [place] (CURRENT) DRUG THERAPY 11/03/2018 Shoshana CAR MD, Ot Z87.891 PERSONAL HISTORY OF NICOTINE DEPENDENCE 11/03/2018 Shoshana CAR MD, Ot Z95.1 PRESENCE OF AORTOCORONARY BYPASS GRAFT 11/03/2018 Shoshana CAR MD Ot Z95.5 PRESENCE OF CORONARY ANGIOPLASTY IMPLANT 11/03/2018 Shoshana CAR MD Ot Z96.651 PRESENCE OF RIGHT ARTIFICIAL KNEE JOINT 11/03/2018 Ot V72.84 EXAM PRE-OPERATIVE NOS 11/03/2018 PEBBLES FRANCO, LUIGI Foote Ot 204.10 CHRONIC LYMPHOID LEUKEMIA, 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 11/03/2018 LUIGI ROGEL MD Ot 562.10 DIVERTICULOSIS COLON (W/O MENT OF HEMORR 11/03/2018 LUIGI ROGEL MD Ot 571.8 CHRONIC LIVER DIS NEC 11/03/2018 JESUS TESFAYE Ot C91.10 CHRONIC LYMPHOCYTIC LEUK OF B-CELL TYPE 11/03/2018 JESUS TESFAYEP Ot E11.9 TYPE 2 DIABETES MELLITUS WITHOUT COMPLIC 11/03/2018 JESUS TESFAYEP Ot E78.5 HYPERLIPIDEMIA, UNSPECIFIED 11/03/2018 JESUS TESFAYEP Ot I12.9 HYPERTENSIVE CHRONIC KIDNEY DISEASE W ST 11/03/2018 JESUS TESFAYE Ot I25.10 ATHSCL HEART DISEASE OF [place] CORONARY 11/03/2018 JESUS TESFAYEP Ot Z79.01 [place]TM[place] (CURRENT) USE OF ANTICOAGULANT 11/03/2018 JESUS TESFAYEP Ot Z79.899 OTHER GROUP HOME (CURRENT) DRUG THERAPY 11/03/2018 JESUS TESFAYE Ot Z95.1 PRESENCE OF AORTOCORONARY BYPASS GRAFT 11/03/2018 CHARLOTTE FRANCO, KINJAL Anna Ot C91.10 CHRONIC LYMPHOCYTIC LEUK OF B-CELL TYPE 11/03/2018 CHARLOTTE FRANCO, KIJNAL Anna Ot Z01.818 ENCOUNTER FOR OTHER PREPROCEDURAL EXAMIN 11/03/2018 MADYSON MARTINEZ MD, Ot K57.90 DVRTCLOS OF INTEST, PART UNSP, W/O PERF 11/03/2018 MADYSON MARTINEZ MD, Ot K76.0 FATTY (CHANGE OF) LIVER, NOT ELSEWHERE C 11/03/2018 MADYSON MARTINEZ MD, Ot N40.0 ENLARGED PROSTATE WITHOUT LOWER URINARY 11/03/2018 MADYSON MARTINEZ MD, Ot R31.9 HEMATURIA, UNSPECIFIED 11/03/2018 YEHUDA FRANCO FACC, ALI FACP CCDS Ot C91.10 CHRONIC LYMPHOCYTIC LEUK OF B-CELL TYPE 11/03/2018 YEHUDA FRANCO FACC, ALI FACP CCDS Ot E78.4 OTHER HYPERLIPIDEMIA 11/03/2018 YEHUDA FRANCO FACC, ALI FACP CCDS Ot I10 ESSENTIAL (PRIMARY) HYPERTENSION 11/03/2018 YEHUDA FRANCO FACC, ALI FACP CCDS Ot I25.10 ATHSCL HEART DISEASE OF [place] CORONARY 11/03/2018 YEHUDA FRANCO FACC, ALI FACP CCDS Ot I65.23 OCCLUSION AND STENOSIS OF BILATERAL [place] 11/03/2018 YEHUDA FRANCO FACC, ALI FACP CCDS Ot R07.89 OTHER CHEST PAIN 11/03/2018 JOSE JACOB MD Ot C91.10 CHRONIC LYMPHOCYTIC LEUK OF B-CELL TYPE 11/03/2018 JOSE JACOB MD Ot E11.9 TYPE 2 DIABETES MELLITUS WITHOUT COMPLIC 11/03/2018 JOSE JACOB MD Ot E78.5 HYPERLIPIDEMIA, UNSPECIFIED 11/03/2018 JOSE JACOB MD Ot I10 ESSENTIAL (PRIMARY) HYPERTENSION 11/03/2018 JOSE JACOB MD Ot I25.10 ATHSCL HEART DISEASE OF [place] CORONARY 11/03/2018 JOSE JACOB MD Ot Z79.01 GROUP HOME (CURRENT) USE OF ANTICOAGULANT 11/03/2018 JOSE JACOB MD Ot Z79.899 OTHER GROUP HOME (CURRENT) DRUG THERAPY 11/03/2018 JOSE JACOB MD Ot Z95.1 PRESENCE OF AORTOCORONARY BYPASS GRAFT 12/04/2018 AKI DO, KEN F Ot Z47.1 AFTERCARE FOLLOWING JOINT REPLACEMENT VINCENT 12/04/2018 AKI DO, KEN F Ot Z96.651 PRESENCE OF RIGHT ARTIFICIAL KNEE JOINT 12/11/2018 AKI DO, KEN F Ot Z47.1 AFTERCARE FOLLOWING JOINT REPLACEMENT VINCENT 12/11/2018 AKI DO, KEN Lima Ot Z96.651 PRESENCE OF RIGHT ARTIFICIAL KNEE JOINT 01/08/2019 JOSE JACOB MD Ot C91.10 CHRONIC LYMPHOCYTIC LEUK OF B-CELL TYPE 01/08/2019 JOSE JACOB MD Ot E11.9 TYPE 2 DIABETES MELLITUS WITHOUT COMPLIC 01/08/2019 JOSE JACOB MD Ot E78.5 HYPERLIPIDEMIA, UNSPECIFIED 01/08/2019 JOSE JACOB MD Ot I10 ESSENTIAL (PRIMARY) HYPERTENSION 01/08/2019 JOSE JACOB MD Ot I25.10 ATHSCL HEART DISEASE OF [place] CORONARY 01/08/2019 JOSE JACOB MD Ot Z79.01 [place]TM[place] (CURRENT) USE OF ANTICOAGULANT 01/08/2019 JOSE JACOB MD Ot Z79.899 OTHER GROUP HOME (CURRENT) DRUG THERAPY 01/08/2019 JOSE JACOB MD Ot Z95.1 PRESENCE OF AORTOCORONARY BYPASS GRAFT 03/10/2019 JOSE JACOB MD Ot C91.10 CHRONIC LYMPHOCYTIC LEUK OF B-CELL TYPE 03/10/2019 JOSE JACOB MD Ot E11.9 TYPE 2 DIABETES MELLITUS WITHOUT COMPLIC 03/10/2019 JOSE JACOB MD Ot E78.5 HYPERLIPIDEMIA, UNSPECIFIED 03/10/2019 JOSE JACOB MD Ot I10 ESSENTIAL (PRIMARY) HYPERTENSION 03/10/2019 JOSE JACOB MD Ot I25.10 ATHSCL HEART DISEASE OF [place] CORONARY 03/10/2019 JOSE JACOB MD Ot Z79.01 GROUP HOME (CURRENT) USE OF ANTICOAGULANT 03/10/2019 JOSE JACOB MD Ot Z79.899 OTHER GROUP HOME (CURRENT) DRUG THERAPY 03/10/2019 JOSE JACOB MD Ot Z95.1 PRESENCE OF AORTOCORONARY BYPASS GRAFT 03/11/2019 JOSE JACOB MD Ot C91.10 CHRONIC LYMPHOCYTIC LEUK OF B-CELL TYPE 03/11/2019 JOSE JACOB MD Ot E11.9 TYPE 2 DIABETES MELLITUS WITHOUT COMPLIC 03/11/2019 JOSE JACOB MD Ot E78.5 HYPERLIPIDEMIA, UNSPECIFIED 03/11/2019 JOSE JACOB MD Ot I10 ESSENTIAL (PRIMARY) HYPERTENSION 03/11/2019 JOSE JACOB MD Ot I25.10 ATHSCL HEART DISEASE OF [place] CORONARY 03/11/2019 JOSE JACOB MD Ot Z79.01 GROUP HOME (CURRENT) USE OF ANTICOAGULANT 03/11/2019 JOSE JACOB MD Ot Z79.899 OTHER [place] (CURRENT) DRUG THERAPY 03/11/2019 JOSE JACOB MD Ot Z95.1 PRESENCE OF AORTOCORONARY BYPASS GRAFT 03/16/2019 JOSE JACOB MD Ot C91.10 CHRONIC LYMPHOCYTIC LEUK OF B-CELL TYPE 03/16/2019 JOSE JACOB MD Ot E11.9 TYPE 2 DIABETES MELLITUS WITHOUT COMPLIC 03/16/2019 JOSE JACOB MD Ot E78.5 HYPERLIPIDEMIA, UNSPECIFIED 03/16/2019 JOSE JACOB MD Ot I10 ESSENTIAL (PRIMARY) HYPERTENSION 03/16/2019 JOSE JACOB MD Ot I25.10 ATHSCL HEART DISEASE OF [place] CORONARY 03/16/2019 JOSE JACOB MD Ot Z79.01 GROUP HOME (CURRENT) USE OF ANTICOAGULANT 03/16/2019 JOSE JACOB MD Ot Z79.899 OTHER [place] (CURRENT) DRUG THERAPY 03/16/2019 JOSE JACOB MD Ot Z95.1 PRESENCE OF AORTOCORONARY BYPASS GRAFT 05/11/2019 JOSE JACOB MD Ot C91.10 CHRONIC LYMPHOCYTIC LEUK OF B-CELL TYPE 05/11/2019 JOSE JACOB MD Ot E11.9 TYPE 2 DIABETES MELLITUS WITHOUT COMPLIC 05/11/2019 JOSE JACOB MD Ot E78.5 HYPERLIPIDEMIA, UNSPECIFIED 05/11/2019 JOSE JACOB MD Ot I10 ESSENTIAL (PRIMARY) HYPERTENSION 05/11/2019 JOSE JACOB MD Ot I25.10 ATHSCL HEART DISEASE OF [place] CORONARY 05/11/2019 JOSE JACOB MD Ot Z79.01 GROUP HOME (CURRENT) USE OF ANTICOAGULANT 05/11/2019 JOSE JACOB MD Ot Z79.899 OTHER GROUP HOME (CURRENT) DRUG THERAPY 05/11/2019 JOSE JACOB MD Ot Z95.1 PRESENCE OF AORTOCORONARY BYPASS GRAFT 05/11/2019 ARMEN ROSENBERG DO Ot Z01.818 ENCOUNTER FOR OTHER PREPROCEDURAL EXAMIN 05/14/2019 JOSE JACOB MD Ot C91.10 CHRONIC LYMPHOCYTIC LEUK OF B-CELL TYPE 05/14/2019 JOSE JACOB MD, Ot E11.9 TYPE 2 DIABETES MELLITUS WITHOUT COMPLIC 05/14/2019 JOSE JACOB MD, Ot E78.5 HYPERLIPIDEMIA, UNSPECIFIED 05/14/2019 JOSE JACOB MD, Ot I10 ESSENTIAL (PRIMARY) HYPERTENSION 05/14/2019 JOSE JACOB MD, Ot I25.10 ATHSCL HEART DISEASE OF [place] CORONARY 05/14/2019 JOSE JACOB MD, Ot Z79.01 STUNTMAN (CURRENT) USE OF ANTICOAGULANT 05/14/2019 JOSE JACOB MD, Ot Z79.899 OTHER [place] (CURRENT) DRUG THERAPY 05/14/2019 JOSE JACOB MD, Ot Z95.1 PRESENCE OF AORTOCORONARY BYPASS GRAFT Procedures Code Description Performed By [place]formed [place] [id number] DILATION OF CORONARY ARTERY, ONE ARTERY, 11/01/2018 [id number] MEASURE OF CARDIAC SAMPL PRESSURE, L H 11/01/2018 [id number] FLUOROSCOPY OF MULT COR ART USING L OSM 11/01/2018 [id number] FLUOROSCOPY OF LEFT HEART USING LOW OSMO 11/01/2018 [id number] FLUOROSCOPY OF THORACIC AORTA USING LOW 11/01/2018 Results Test Result Range Methicillin resistant Staphylococcus aureus (MRSA) screening culture - 03/05/17 09:00 Methicillin resistant Staphylococcus aureus (MRSA) screening [...] Automated erythrocyte mean corpuscular hemoglobin concentration measurement (mass/volume) 34 g/dL 32-36 Automated erythrocyte distribution width ratio 13.8 % 10.0- 14.5 Automated blood platelet count (count/volume) 234 10*3/uL [...] Blood monocytes automated count (number/volume) 0.9 10*3 0.0- 1.0 Automated eosinophil count 0.4 10*3/uL 0.0-0.3 Automated [...] Serum or plasma aspartate aminotransferase measurement (enzymatic activity/volume) 22 U/L 5-34 Serum or plasma alanine aminotransferase measurement (enzymatic activity/volume) 21 U/L 0-55 Serum or plasma protein measurement (mass/volume) 6.6 g/dL 6.4-8.2 Serum or plasma albumin measurement (mass/volume) 4.0 g/dL 3.2-4.5 Serum or plasma C reactive protein measurement (mass/volume) - 02/03/18 13:42 Serum or plasma C reactive protein measurement (mass/volume) 0.02 mg/dL 0.00-0.50 Serum or plasma amylase measurement (enzymatic activity/volume) - 02/03/18 13:42 Serum or plasma amylase measurement (enzymatic activity/volume) 100 U/L 25-125 Lipase - 02/03/18 13:42 Lipase 33 U/L 8-78 Complete urinalysis with reflex to culture - 02/03/18 14:02 Urine color determination YELLOW NRG Urine clarity determination CLEAR NRG Urine pH measurement by test strip 5 5-9 Specific gravity of urine by test strip 1.020 1.016-1.022 Urine protein assay by test strip, semi-quantitative [...] sediment leukocyte count by microscopy (number/high power field) RARE NRG Bacteria detection in urine sediment by light microscopy NEGATIVE NRG Squamous epithelial cells detection in urine sediment by light microscopy RARE NRG Crystals detection in urine sediment by light microscopy NONE NRG Casts detection in urine sediment by light microscopy NONE NRG Mucus detection in urine sediment by light microscopy SMALL NRG Complete urinalysis with reflex to culture NO NRG Comprehensive metabolic panel - 11/01/18 21:41 Serum or plasma sodium measurement (moles/volume) 140 mmol/L 135-145 Serum or plasma potassium measurement (moles/volume) 4.0 mmol/L 3.6-5.0 Serum or plasma chloride measurement (moles/volume) 107 mmol/L 98-107 Carbon dioxide 22 mmol/L 21-32 Serum or plasma anion gap determination (moles/volume) 11 mmol/L 5-14 Serum or plasma urea nitrogen measurement (mass/volume) 24 mg/dL 7-18 Serum or plasma creatinine measurement (mass/volume) 1.82 mg/dL 0.60-1.30 Serum or plasma urea nitrogen/creatinine mass ratio 13 NRG Serum or plasma creatinine measurement with calculation of estimated glomerular filtration rate 36 NRG Serum or plasma glucose measurement (mass/volume) 115 mg/dL 70-105 Serum or plasma calcium measurement (mass/volume) 9.1 mg/dL 8.5-10.1 Serum or plasma total bilirubin measurement (mass/volume) 1.0 mg/dL 0.1-1.0 Serum or plasma alkaline phosphatase measurement (enzymatic activity/volume) 74 U/L 40-136 Serum or plasma aspartate aminotransferase measurement (enzymatic activity/volume) 17 U/L 5-34 Serum or plasma alanine aminotransferase measurement (enzymatic activity/volume) 20 U/L 0-55 Serum or plasma protein measurement (mass/volume) 6.9 g/dL 6.4-8.2 Serum or plasma albumin measurement (mass/volume) 3.8 g/dL 3.2-4.5 CALCIUM CORRECTED 9.3 mg/dL 8.5-10.1 Magnesium - 11/01/18 21:41 Magnesium 2.1 mg/dL 1.8-2.4 Complete blood count (CBC) with automated white blood cell (WBC) differential - 11/01/18 21:41 Blood leukocytes automated count (number/volume) 7.1 10*3/uL 4.3-11.0 Blood erythrocytes automated count (number/volume) 4.03 10*6/uL 4.35-5.85 Venous blood hemoglobin measurement (mass/volume) 12.2 g/dL 13.3-17.7 Blood hematocrit (volume fraction) 37 % 40-54 Automated erythrocyte mean corpuscular volume 91 [foz_us] 80-99 Automated erythrocyte mean corpuscular hemoglobin (mass per erythrocyte) 30 pg 25-34 Automated erythrocyte mean corpuscular hemoglobin concentration measurement (mass/volume) 33 g/dL 32-36 Automated erythrocyte distribution width ratio 15.3 % 10.0- 14.5 Automated blood platelet count (count/volume) 343 10*3/uL 130-400 Automated blood platelet mean volume measurement 9.7 [foz_us] 7.4-10.4 Automated blood neutrophils/100 leukocytes 57 % 42-75 Automated blood lymphocytes/100 leukocytes 31 % 12-44 Blood monocytes/100 leukocytes 8 % 0-12 Automated blood eosinophils/100 leukocytes 4 % 0-10 Automated blood basophils/100 leukocytes 0 % 0-10 Blood neutrophils automated count (number/volume) 4.1 10*3 1.8-7.8 Blood lymphocytes automated count (number/volume) 2.2 10*3 1.0-4.0 Blood monocytes automated count (number/volume) 0.6 10*3 0.0- 1.0 Automated eosinophil count 0.3 10*3/uL 0.0-0.3 Automated blood basophil count (count/volume) 0.0 10*3/uL 0.0-0.1 PT panel in platelet poor plasma by coagulation assay - 11/01/18 21:41 Prothrombin time (PT) in platelet poor plasma by coagulation assay 37.6 s 12.2-14.7 INR in platelet poor plasma or blood by coagulation assay 3.8 0.8-1.4 Activated partial thromboplastin time (aPTT) in platelet poor plasma bycoagulation assay - 11/01/18 21:41 Activated partial thromboplastin time (aPTT) in platelet poor plasma bycoagulation assay 55 s 24-35 Serum or plasma troponin i.cardiac measurement (mass/volume) - 11/01/18 21:41 Serum or plasma troponin i.cardiac measurement (mass/volume) < ng/mL <0.30 Myoglobin, serum - 11/01/18 21:41 Myoglobin, serum 51.3 ng/mL 10.0-92.0 Methicillin resistant Staphylococcus aureus (MRSA) screening culture - 11/02/18 00:55 Methicillin resistant Staphylococcus aureus (MRSA) screening culture [facility] Complete blood count (CBC) with automated white blood cell (WBC) differential - 11/02/18 05:20 Blood leukocytes automated count (number/volume) 7.1 10*3/uL 4.3-11.0 Blood erythrocytes automated count (number/volume) 3.65 10*6/uL 4.35-5.85 Venous blood hemoglobin measurement (mass/volume) 10.9 g/dL 13.3-17.7 Blood hematocrit (volume fraction) 33 % 40-54 Automated erythrocyte mean corpuscular volume 92 [foz_us] 80-99 Automated erythrocyte mean corpuscular hemoglobin (mass per erythrocyte) 30 pg 25-34 Automated erythrocyte mean corpuscular hemoglobin concentration measurement (mass/volume) 33 g/dL 32-36 Automated erythrocyte distribution width ratio 15.0 % 10.0- 14.5 Automated blood platelet count (count/volume) 265 10*3/uL 130-400 Automated blood platelet mean volume measurement 9.9 [foz_us] 7.4-10.4 Automated blood neutrophils/100 leukocytes 65 % 42-75 Automated blood lymphocytes/100 leukocytes 22 % 12-44 Blood monocytes/100 leukocytes 10 % 0-12 Automated blood eosinophils/100 leukocytes 3 % 0-10 Automated blood basophils/100 leukocytes 0 % 0-10 Blood neutrophils automated count (number/volume) 4.6 10*3 1.8-7.8 Blood lymphocytes automated count (number/volume) 1.6 10*3 1.0-4.0 Blood monocytes automated count (number/volume) 0.7 10*3 0.0- 1.0 Automated eosinophil count 0.2 10*3/uL 0.0-0.3 Automated blood basophil count (count/volume) 0.0 10*3/uL 0.0-0.1 Whole blood basic metabolic panel - 11/02/18 05:20 Serum or plasma sodium measurement (moles/volume) 139 mmol/L 135-145 Serum or plasma potassium measurement (moles/volume) 4.0 mmol/L 3.6-5.0 Serum or plasma chloride measurement (moles/volume) 109 mmol/L 98-107 Carbon dioxide 18 mmol/L 21-32 Serum or plasma anion gap determination (moles/volume) 12 mmol/L 5-14 Serum or plasma urea nitrogen measurement (mass/volume) 19 mg/dL 7-18 Serum or plasma creatinine measurement (mass/volume) 1.35 mg/dL 0.60-1.30 Serum or plasma urea nitrogen/creatinine mass ratio 14 NRG Serum or plasma creatinine measurement with calculation of estimated glomerular filtration rate 52 NRG Serum or plasma glucose measurement (mass/volume) 88 mg/dL 70-105 Serum or plasma calcium measurement (mass/volume) 8.7 mg/dL 8.5-10.1 Serum or plasma phosphate measurement (mass/volume) - 11/02/18 05:20 Serum or plasma phosphate measurement (mass/volume) 3.3 mg/dL 2.3-4.7 Magnesium - 11/02/18 05:20 Magnesium 2.0 mg/dL 1.8-2.4 Serum or plasma troponin i.cardiac measurement (mass/volume) - 11/02/18 05:20 Serum or plasma troponin i.cardiac measurement (mass/volume) 6.89 ng/mL <0.30 Lipid 1996 panel - 11/02/18 05:20 Serum or plasma triglyceride measurement (mass/volume) 190 mg/dL <150 Serum or plasma cholesterol measurement (mass/volume) 139 mg/dL < 200 Serum or plasma cholesterol in HDL measurement (mass/volume) 31 mg/dL 40-60 Cholesterol in LDL [mass/volume] in serum or plasma by direct assay 86 mg/dL 1-129 Serum or plasma cholesterol in VLDL measurement (mass/volume) 38 mg/dL 5-40 PT panel in platelet poor plasma by coagulation assay - 11/02/18 05:20 Prothrombin time (PT) in platelet poor plasma by coagulation assay 41.9 s 12.2-14.7 INR in platelet poor plasma or blood by coagulation assay 4.3 0.8-1.4 PT panel in platelet poor plasma by coagulation assay - 11/03/18 08:45 Prothrombin time (PT) in platelet poor plasma by coagulation assay 38.6 s 12.2-14.7 INR in platelet poor plasma or blood by coagulation assay 3.9 0.8-1.4 Encounters ACCT No. Visit Date/Time Discharge Status Pt. Type Provider Facility Loc./Unit Complaint [id number] 05/14/2019 08:20:00 05/14/2019 23:59:59 CLS Outpatient JOSE JACOB MD [facility] [address] ONC [id number] 05/11/2019 05:32:00 05/11/2019 14:08:00 DIS Outpatient ARMEN ROSENBERG DO [facility] [address] PREOP LESION RIGHT UPPER/LOWER LEG [id number] 12/10/2018 08:41:00 03/10/2019 00:01:00 DIS Outpatient JOSE JACOB MD [facility] [address] ONC [id number] 12/11/2018 12:52:00 12/11/2018 13:29:00 DIS Outpatient KEN PRABHAKAR DO [facility] [address] REHAB S/P L TKR [id number] 11/01/2018 21:36:00 11/03/2018 12:06:00 DIS Inpatient Shoshana CAR MD [facility] [address] 4TH CHEST PAIN [id number] 08/07/2018 11:29:00 08/07/2018 12:48:00 DIS Outpatient JEFFERY AYALA APRN [facility] [address] REHAB PRIMARY OA KNEE [id number] 06/11/2018 08:14:00 06/16/2018 00:01:00 DIS Outpatient JOSE JACOB MD [facility] [address] ONC [id number] 03/05/2018 10:41:00 06/03/2018 00:01:00 DIS Outpatient JOSE JACOB MD [facility] [address] ONC [id number] 12/04/2017 12:48:00 03/04/2018 00:01:00 DIS Outpatient JOSE JACOB MD [facility] [address] ONC [id number] 02/03/2018 13:24:00 02/03/2018 16:10:00 DIS Emergency ASTRID WISDOM MD [facility] [address] ER KIDNEY ISSUES [id number] 12/04/2017 14:59:00 12/04/2017 23:59:59 CLS Preadmit NICHOLAS CASTRO MD [facility] [address] RAD CHRONIC KIDNEY DISEASE,STAGE 3 [id number] 09/03/2017 13:50:00 12/02/2017 00:01:00 DIS Outpatient JOSE JACOB MD [facility] [address] ONC [id number] 09/23/2017 07:18:00 09/23/2017 23:59:59 CLS Outpatient YEHUDA FRANCO FACC, LUIS ANNE CCDS [facility] [address] CARD CAD I25.10 [id number] 08/25/2017 13:22:00 09/03/2017 13:03:00 DIS Outpatient EDMUNDO MITCHELL MD [facility] [address] ONC [id number] 05/27/2017 08:47:00 08/16/2017 00:01:00 DIS Outpatient LUIGI ROGEL MD [facility] [address] ONC [id number] 02/18/2017 10:19:00 03/25/2017 00:01:00 DIS Outpatient LUIGI ROGEL MD [facility] [address] ONC [id number] 03/12/2017 06:00:00 03/12/2017 10:10:00 DIS Outpatient KINJAL PORTER MD [facility] [address] SDC BASAL CELL CARCINOMA [id number] 03/05/2017 08:40:00 03/05/2017 09:17:00 DIS Outpatient KINJAL PORTER MD [facility] [address] PREOP BASAL CELL CARCINOMA [id number] 01/30/2017 09:31:00 01/30/2017 12:01:00 DIS Outpatient KEN PRABHAKAR DO [facility] [address] REHAB RT SHOULDER PAIN; PARTIAL RCT TEAR [id number] 12/26/2016 09:44:00 12/26/2016 23:59:59 CLS Outpatient ALEX CHANDLER [facility] [address] RAD PNEUMONIA,COUGH [id number] 11/27/2016 08:29:00 12/03/2016 00:01:00 DIS Outpatient LUIGI ROGEL MD [facility] [address] ONC [id number] 07/31/2016 09:08:00 08/23/2016 16:22:00 DIS Outpatient LUIGI ROGEL MD [facility] [address] ONC [id number] 06/07/2016 11:12:00 06/07/2016 23:59:59 CLS Outpatient MADYSON MARTINEZ MD [facility] [address] RAD HEMATERIA [id number] 05/01/2016 08:52:00 05/21/2016 00:01:00 DIS Outpatient LUIGI ROGEL MD [facility] [address] ONC [id number] 03/28/2016 15:24:00 03/28/2016 15:56:00 DIS Emergency MARIETTA VITAL MD [facility] [address] ER HEAD LAC [id number] 02/14/2016 09:36:00 02/14/2016 00:01:00 DIS Outpatient LUIGI ROGEL MD [facility] [address] ONC [id number] 11/15/2015 08:33:00 11/15/2015 00:01:00 DIS Outpatient LUIGI ROGEL MD [facility] [address] ONC [id number] 09/15/2015 06:18:00 09/15/2015 11:26:00 DIS Outpatient KINJAL PORTER MD [facility] [address] SDC LEUKEMIA [id number] 09/14/2015 05:34:00 09/14/2015 23:59:59 CLS Outpatient KINJAL PORTER MD [facility] [address] PREOP PORT PLACEMENT [id number] 09/13/2015 13:29:00 09/13/2015 23:59:59 CLS Outpatient JESUS TESFAYE CRYSTAL FLAT GRINDER [facility] [address] ONC [id number] 07/26/2015 13:23:00 08/16/2015 00:01:00 DIS Outpatient LUIGI ROGEL MD [facility] [address] ONC [id number] 08/01/2015 09:03:00 08/01/2015 23:59:59 CLS Outpatient LUIGI RGOEL MD [facility] [address] RAD MULTIPLE MYLOMA [id number] 07/03/2015 09:55:00 07/03/2015 23:59:59 CLS Outpatient ALEX CHANDLER [facility] [address] LAB ELEVATED WBC,ELEVATED LYMPHOCYTES [id number] 05/02/2015 10:30:00 05/02/2015 23:59:59 CLS Outpatient DEIDRE AMIN APRN [facility] [address] CARD NIGHT SWEATS [id number] 05/09/2014 21:02:00 05/10/2014 06:25:00 DIS Outpatient MOSHE MARIE SAILING OFFICER [facility] [address] SLEEP EXCESSIVE DAYTIME SLEEPINESS [id number] 08/04/2013 12:10:00 08/04/2013 13:10:00 DIS Outpatient JENNY KIM MD [facility] [address] CR STATUS POST ACB [id number] 08/02/2013 13:31:00 08/02/2013 00:01:00 DIS Outpatient JENNY KIM MD [facility] [address] CR STATUS POST ACB [id number] 06/08/2013 16:44:00 06/08/2013 23:59:59 CLS Outpatient BAIMAANATOLIYP [facility] [address] RAD COUGH [id number] 04/09/2013 12:56:00 04/10/2013 11:10:00 DIS Inpatient CAT PERES MD [facility] [address] ICU IRREGULAR HEART RATE [id number] 04/01/2013 08:50:00 04/01/2013 23:59:59 CLS Outpatient OSCAR VALENCIA CRYSTAL FLAT GRINDER [facility] [address] CARD CAD [id number] 05/19/2019 09:55:00 PEN Preadmit ARMEN ROSENBERG DO [facility] [address] SDC LESION UPPER/LOWER LEG [id number] 01/23/2016 14:14:00 Document Registration [id number] 01/23/2016 14:14:00 Document Registration [id number] 01/23/2016 14:14:00 Document Registration [id number] 07/14/2015 15:25:00 Document Registration [id number] 07/14/2015 15:25:00 Document Registration [id number] 02/03/2015 06:54:00 Document Registration [id number] 02/02/2015 05:56:00 Document Registration [id number] 03/09/2013 08:10:00 Document Registration [id number] 02/26/2013 10:43:00 Document Registration [id number] 08/24/2012 06:57:00 Document Registration [id number] 08/21/2012 08:34:00 Document Registration [id number] 08/02/2011 10:03:00 Document Registration [id number] 06/12/2011 12:03:00 Document Registration [id number] 06/03/2011 12:40:00 Document Registration [id number] 04/01/2011 11:20:00 Document Registration [id number] 01/25/2011 09:37:00 Document Registration [id number] 10/22/2006 15:56:00 Document Registration [id number] 09/12/2006 06:47:00 Document Registration
[2019-05-19] MEDS ORDERED: fentaNYL INJECTION 100 MCG/2 ML AMP ONE (11:58)
--- NOTE | 2019-05-19 12:39 | Progress Note-Post Operative ---
Post-Operative Progess Note Surgeon (s)/Computer Video Game Designer (s) Surgeon ARMEN ROSENBERG DO Computer Video Game Designer: none Pre-Operative Diagnosis Right lower leg lesion, Right inner thigh lesion Post-Operative Diagnosis same pending path Procedure & Operative Findings Date of Procedure 05/19/19 Procedure Performed/Findings 1. Exc R LE mass, 5.9cm incision 2. Exc R LE mass (thigh), 3.1cm incision Anesthesia Type IV sedation by PATIENT DAY COORDINATOR Estimated Blood Loss Estimated blood loss (mL): scant Specimens/Packing Specimens Removed R miller lesion R thigh lesion ARMEN ROSENBERG DO May 19, 2019 12:39
[2019-05-19] MEDS ORDERED: ACHD5005 PO (12:40)
--- NOTE | 2019-05-19 12:41 | Discharge Inst-Surgical ---
Discharge Inst-Surgical Depart Medication/Instructions New, Converted or Re-Newed RX: RX Given to Pt/Family Patient Instructions Follow up Appt: Make appointment for 1 week. [phone] Instructions: No strenuous activity. May shower in 24 hours, no tub bath or soaking. Use incentive spirometer at home as directed. No Smoking Skin/Wound Care: May remove bandages in am. You need to leave the Dermabond on incision it will fall off on it's own. Symptoms to Report: Appetite Changes, Extremity Discoloration, Numbness/Tingling, Swelling Increased, Bleeding Excessive, Eyesight Changes, Pain Increased, Urine Color Shaina nge, Constipation(Persistent), Fever over 101 degree F, Pain/Pressure in chest, Urinating Difficulty, Cough Up/Vomit Blood, Heart Beat Irreg/Pounding, Pain/Pressure in jaw, Cramps in feet or legs, Lightheadedness, Pain/Pressure in shoulder, Diarrhea(Persistent), Memory Changes Suddenly, Questions/Concerns, Weight gain consecutive days, Dizziness/Fainting, Nausea/Vomiting, Shortness of Breath, Weight gain over 2 pounds If questions or concerns contact your physician Or seek help at emergency department. Activity Activity Instructions: Avoid Stress to Incision Driving Instructions: No Driving/Refer to Diet Discharge Diet: No Restrictions Diet After 24 Hours: Clear Liquid if Nauseous If Any Problems/Questions/Issu: Contact Your Physician, Go to Emergency Room Skin/Wound Care Infection Signs and Symptoms: Increased Redness, Foul Odor of Wound, Increased Drainage, Skin Itchy or Has a Rash, Increased Swelling, Temperature Above 101 F Bathing Instructions: Shower Stitches/Luis Carlos/Dermabond Dis: Care of Stitches Ice Pack: Ice On and Off Site ARMEN ROSENBERG DO May 19, 2019 12:41
--- NOTE | 2019-05-19 13:30 | Anesthesia-General Post-Op ---
MAC Patient Condition Mental Status/LOC: Same as Preop Cardiovascular: Satisfactory Nausea/Vomiting: Absent Respiratory: Satisfactory Pain: Controlled Complications: Absent Post Op Complications Complications None Follow Up Care/Instructions Patient Instructions None needed. Anesthesiology Discharge Order Discharge Order Patient is doing well, no complaints, stable vital signs, no apparent adverse anesthesia problems. No complications reported per nursing. CORI SMART CRNA May 19, 2019 13:30
--- NOTE | 2019-05-19 20:09 | OPERATIVE REPORT ---
DATE OF SERVICE: 05/19/2019 PREOPERATIVE DIAGNOSIS: Right lower extremity mass and right upper thigh mass. POSTOPERATIVE DIAGNOSIS: Right lower extremity mass and right upper thigh mass, pending pathology. PROCEDURES PERFORMED: 1. Excision of right lower extremity mass, 5.9 cm incision. 2. Right upper thigh mass excision, 3.1 cm incision. SURGEON: Tristen Andrade DO. ICE CREAM MAN: None. ANESTHESIA: Local MAC by EMERGING SOLUTIONS EXECUTIVE. SPECIMEN: Upper thigh mass and lower extremity mass. BLOOD LOSS: Scant. FLUIDS: Per Anesthesia. POSTOPERATIVE CONDITION: Stable. INDICATION FOR PROCEDURE: The patient is a 73-year-old male who has a mass in his right lower extremity that seemed to be bleeding and not getting better, needed to get this removed. He also noted one in upper thigh (same leg) and wanted that removed as well. FINDINGS: The patient had a lower extremity mass 5.9 cm elliptical incision, removed and then upper thigh skin mass measured about 3.1 cm incision. PROCEDURE NOTE: After consent was obtained, the patient was brought to the operating room, placed on the table in the supine position. Right leg was frog legged. He was then sterilely prepped and draped in normal fashion. Local lidocaine was used to infiltrate the skin with the upper extremity mass, made an incision with #15 blade, carried down to skin and subcutaneous tissue. An elliptical incision was going around the mass going down through the skin into subcutaneous tissue, deepened down to subcutaneous tissue with Bovie electrocautery down to some fat and then passed this off the table, marked it with one suture superiorly. I created flaps superiorly and inferiorly to be able to bring this together and then closed this incision with 3-0 nylon 3 interrupted vertical mattress sutures. I then went to the lower mass on the right lower extremity and then made an incision with #15 blade, carried down through the skin into the subcutaneous tissue, Elliptical incision measured about 5.9 cm x about 2.3 cm wide, used #15 blade, carried down to skin into the subcutaneous tissue and deepened down to the subcutaneous tissue with Bovie electrocautery and carried down to the fat, removed this marked it with one short stitch superior and long stitch lateral and then passed this off the table, also created flaps medially and laterally to be able to bring this together, brought this together with 2-0 nylon 3 vertical mattress sutures and then four simple interrupted 3-0 nylon stitches. Area was cleaned and dried. Band-Aid was placed. The patient was then transferred to recovery room in stable condition. Sponge, instrument and needle counts correct at the end of the case. Job ID: [id number] DocumentID: [id number] Dictated Date: 05/19/2019 12:33:04 Business Support Date: 05/19/2019 20:08:59 Dictated By: DO SCOTT CARDOZA
== END 2019-05-19 13:48 | disposition home or self-care (01) ==
LOC: SDC 10:13
PROVIDERS: ATTEND Surgery
DX: C44.722 Squamous cell carcinoma of skin of right lower limb, including hip (principal); D23.71 Other benign neoplasm of skin of right lower limb, including hip; Z11.2 Encounter for screening for other bacterial diseases; I25.10 Atherosclerotic heart disease of native coronary artery without angina pectoris; R79.1 Abnormal coagulation profile; I12.9 Hypertensive chronic kidney disease with stage 1 through stage 4 chronic kidney disease, or unspecified chronic kidney disease; N18.3 Chronic kidney disease, stage 3 (moderate); I77.89 Other specified disorders of arteries and arterioles; Z87.891 Personal history of nicotine dependence; E78.5 Hyperlipidemia, unspecified; Z95.1 Presence of aortocoronary bypass graft; C91.10 Chronic lymphocytic 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; Z96.652 Presence of left artificial knee joint; I25.2 Old myocardial infarction; G47.33 Obstructive sleep apnea (adult) (pediatric); K21.9 Gastro-esophageal reflux disease without esophagitis; Z95.5 Presence of coronary angioplasty implant and graft; I48.91 Unspecified atrial fibrillation; I73.9 Peripheral vascular disease, unspecified; Z79.899 Other long term (current) drug therapy; Z79.82 Long term (current) use of aspirin; Z79.01 Long term (current) use of anticoagulants
CPT/HCPCS: 87081; 88305

== ENCOUNTER → 2019-11-11 | Outpatient (CLI) | payer MEDICARE, OTHER ==
[~2019-11-11] MED LIST changes: +ACHD5005 PO
== END ==
LOC: ONC 07:56
PROVIDERS: ATTEND Internal Medicine Hematology & Oncology
DX: C91.10 Chronic lymphocytic 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 (principal); I25.10 Atherosclerotic heart disease of native coronary artery without angina pectoris; I48.91 Unspecified atrial fibrillation; I48.92 Unspecified atrial flutter; I12.9 Hypertensive chronic kidney disease with stage 1 through stage 4 chronic kidney disease, or unspecified chronic kidney disease; N18.9 Chronic kidney disease, unspecified; E78.5 Hyperlipidemia, unspecified; Z98.61 Coronary angioplasty status
CPT/HCPCS: 99213

== ENCOUNTER → 2020-04-05 | Outpatient (CLI) | payer MEDICARE, OTHER ==
[~2020-04-05] MED LIST changes: +ACHYD1T PO; -HYDR-3820 PO; -METO-387 PO; +MTP25TSR PO; -TRAM50TA2 PO; +TRM50T PO
[2020-04-05 08:50] LABS: BASOPHILS % (AUTO) 1 % (0-10); EOSINOPHILS # (AUTO) 0.3 10^3/uL (0.0-0.3); EOSINOPHILS % (AUTO) 5 % (0-10); HEMATOCRIT 43 % (40-54); HEMOGLOBIN 14.1 G/DL (13.3-17.7); LYMPHOCYTES # (AUTO) 2.6 X 10^3 (1.0-4.0); LYMPHOCYTES % (AUTO) 39 % (12-44); MEAN CORPUSCULAR HEMOGLOBIN 29 PG (25-34); MEAN CORPUSCULAR HGB CONC 33 G/DL (32-36); MEAN CORPUSCULAR VOLUME 88 FL (80-99); MEAN PLATELET VOLUME 10.4 FL (7.4-10.4); MONOCYTES # (AUTO) 0.8 X 10^3 (0.0-1.0); MONOCYTES % (AUTO) 12 % (0-12); NEUTROPHILS % (AUTO) 44 % (42-75); PLATELET COUNT 246 10^3/uL (130-400); RED CELL DISTRIBUTION WIDTH 15.4 % (10.0-14.5); WHITE BLOOD COUNT 6.8 10^3/uL (4.3-11.0)
[2020-04-05 09:07] LABS: ALBUMIN 3.8 GM/DL (3.2-4.5); BILIRUBIN,TOTAL 0.7 MG/DL (0.1-1.0); CALCIUM 8.9 MG/DL (8.5-10.1); CREATININE SERUM 1.59 MG/DL (0.60-1.30); POTASSIUM 4.4 MMOL/L (3.6-5.0); TOTAL PROTEIN 6.7 GM/DL (6.4-8.2)
== END ==
LOC: ONC 08:34
PROVIDERS: ATTEND Internal Medicine Hematology & Oncology
DX: C91.10 Chronic lymphocytic 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 (principal); I25.10 Atherosclerotic heart disease of native coronary artery without angina pectoris; I48.91 Unspecified atrial fibrillation; I48.92 Unspecified atrial flutter; I12.9 Hypertensive chronic kidney disease with stage 1 through stage 4 chronic kidney disease, or unspecified chronic kidney disease; N18.9 Chronic kidney disease, unspecified; E78.5 Hyperlipidemia, unspecified; Z98.61 Coronary angioplasty status; E11.9 Type 2 diabetes mellitus without complications; Z95.1 Presence of aortocoronary bypass graft; Z79.01 Long term (current) use of anticoagulants; Z79.899 Other long term (current) drug therapy
CPT/HCPCS: 80053; 83615; 85025; 99213

== ENCOUNTER → 2020-05-23 | Outpatient (CLI) | payer MEDICARE, OTHER ==
[~2020-05-23] VITALS: Ht 172 cm; Wt 90.9 kg
[~2020-05-23] MED LIST changes: +REGADENOSON 0.4 MG/5 ML SYR (LEXISCAN) IV ONE
[2020-05-23] MEDS: CATHETER FLUSH 10 ML SYR IV PRN ×2 (11:49→12:47)
[2020-05-23 12:46] VITALS: BP 159/90
--- NOTE | 2020-05-25 09:56 | STRESS TEST ---
DATE OF SERVICE: 05/23/2020 RESTING AND POST REGADENOSON TECHNETIUM-99M TETROFOSMIN SPECT CT IMAGING ORDERING PHYSICIAN: Ginger Miller APRN PRIMARY PHYSICIAN: Dr. Husain. CLINICAL DIAGNOSIS: Coronary artery Baseline images were carried out after injection of 10.47 mCi of technetium-99m Tetrofosmin. This was followed by 0.4 mg Regadenoson and 32 mCi of technetium-99m Tetrofosmin for stress imaging. The electrocardiogram showed sinus rhythm at baseline and did not change significantly with Regadenoson. Review of images at rest and following stress does not indicate any distinct perfusion defects consistent with significant myocardial infarction. Some degree of diaphragmatic attenuation is seen both at rest and following Regadenoson infusion. Gated images show normal global left ventricular systolic function with normal regional wall motion including the diaphragmatic wall of the left ventricle. Left ventricular ejection fraction is calculated to be 65%. Left ventricular end diastolic volume is 52 mL. TID is absent (0.97). CONCLUSIONS: 1. No evidence of significant myocardial ischemia or infarction. 2. Normal regional wall motion. 3. Normal global left ventricular systolic function with a calculated ejection fraction of 65%. Job ID: [id number] DocumentID: [id number] Dictated Date: 05/25/2020 09:35:41 Hotel Manager Date: 05/25/2020 09:56:17 Dictated By: LUIS BLACKMAN MD, MA, FACP, FACC,
== END ==
LOC: CARD 10:53
PROVIDERS: ATTEND Nurse Practitioner Family
DX: I25.10 Atherosclerotic heart disease of native coronary artery without angina pectoris (principal)
CPT/HCPCS: 78452; 93017; A9502

== ENCOUNTER 2020-06-17 13:37 | Emergency (ER) | payer MEDICARE, OTHER ==
[~2020-06-17] VITALS: Ht 180.3 cm; Wt 89.8 kg
[~2020-06-17 13:37] MED LIST changes: -REGADENOSON 0.4 MG/5 ML SYR (LEXISCAN) IV ONE
[2020-06-17] MEDS ORDERED: LACTATED RINGERS 1,000 ML IV STA (14:11)
[2020-06-17 14:21] LABS: BASOPHILS % (AUTO) 0 % (0-10); EOSINOPHILS # (AUTO) 0.2 10^3/uL (0.0-0.3); EOSINOPHILS % (AUTO) 2 % (0-10); HEMATOCRIT 34 % (40-54); HEMOGLOBIN 11.3 G/DL (13.3-17.7); LYMPHOCYTES # (AUTO) 4.1 X 10^3 (1.0-4.0); LYMPHOCYTES % (AUTO) 30 % (12-44); MEAN CORPUSCULAR HEMOGLOBIN 29 PG (25-34); MEAN CORPUSCULAR HGB CONC 33 G/DL (32-36); MEAN CORPUSCULAR VOLUME 88 FL (80-99); MEAN PLATELET VOLUME 10.7 FL (7.4-10.4); MONOCYTES # (AUTO) 1.7 X 10^3 (0.0-1.0); MONOCYTES % (AUTO) 13 % (0-12); NEUTROPHILS # (AUTO) 7.7 X 10^3 (1.8-7.8); NEUTROPHILS % (AUTO) 56 % (42-75); PLATELET COUNT 311 10^3/uL (130-400); RED CELL DISTRIBUTION WIDTH 14.6 % (10.0-14.5); WHITE BLOOD COUNT 13.7 10^3/uL (4.3-11.0)
[2020-06-17 14:22] LABS: SMEAR SCAN COMMENT YES
[2020-06-17 14:24] LABS: ALBUMIN 3.6 GM/DL (3.2-4.5)
[2020-06-17 14:25] LABS: POTASSIUM 4.6 MMOL/L (3.6-5.0)
[2020-06-17 14:26] LABS: CALCIUM 8.7 MG/DL (8.5-10.1); INR 1.2 (0.8-1.4); PROTHROMBIN TIME PATIENT 15.3 SEC (12.2-14.7)
[2020-06-17 14:27] LABS: TOTAL PROTEIN 6.7 GM/DL (6.4-8.2)
[2020-06-17 14:29] LABS: BILIRUBIN,TOTAL 1.8 MG/DL (0.1-1.0)
[2020-06-17 14:31] LABS: CREATININE SERUM 1.74 MG/DL (0.60-1.30)
--- NOTE | 2020-06-17 14:36 | ED General ---
General Chief Complaint: Cardiac/General Problems Stated Complaint: DECREASED BP,APPETITE Nursing Triage Note: PT TO ROOM 08 VIA W/C WITH C/O HYPOTENSION. PT STATES HE DOES NOT KNOW WHAT HIS BP WAS AT HOME AND DOES NOT KNOW WHAT HIS BP IS USUALLY. PT STATES HIS DAUGHTER IS A NURSE AND SHE TOLD HIM TO COME TO ED. Nursing Sepsis Screen: No Definite Risk Source of Information: Patient Exam Limitations: No Limitations History of Present Illness Date Seen by Provider: Jun 17, 2020 Time Seen by Provider: 13:58 Initial Comments Here with report of low blood pressure at home today. Had knee replacement done on the right side within the last several days. This was done by Dr. Chacko in [place]. Denies fever, chills, nausea, vomiting or diarrhea. Reports that he had a negative cover test prior to the procedure and has not had contact with COVID positive or concerning patient's or persons. Thinks he may be dehydrated. Denies increasing pain to the right knee or red streaks up the leg. Denies foul- smelling drainage. Denies chest pain or significant breathing problems but is requiring oxygen currently which is not typical for him. He does wear CPAP at night. He is on warfarin and Plavix. He restarted those several days ago. Timing/Duration: 12-24 Hours Severity: Moderate Associated Systoms: No Cough, No Fever/Chills, No Nausea/Vomiting, No Shortness of Air; Weakness Allergies and Home Medications Allergies Uncoded Allergies: TAPE (Allergy, Intermediate, 05/19/19) RED, SWELLING, ITCHING, BURNING Home Medications Amiodarone HCl 200 Mg Tablet, 200 MG PO DAILY, (Reported) Atorvastatin Calcium 80 Mg Tablet, 80 MG PO HS, (Reported) Fenofibric Acid (Choline) 135 Mg Capsule.dr, 135 MG PO HS, (Reported) Finasteride 5 Mg Tablet, 5 MG PO DAILY, (Reported) Hydrocodone Bit/Acetaminophen 1 Tab Tab, 1 TAB PO Q6H PRN for PAIN-MODERATE Prescribed by: ARMEN ROSENBERG on 05/19/19 1240 Metoprolol Succinate 25 Mg Tab.er.24h, 25 MG PO DAILY Prescribed by: ANATOLIY LUNA on 11/03/18 0830 Omeprazole 20 Mg Tablet.dr, 20 MG PO DAILY, (Reported) Ramipril 10 Mg Capsule, 10 MG PO DAILY, (Reported) Warfarin Sodium 5 Mg Tablet, 5 MG PO TuTh, (Reported) Warfarin Sodium 2.5 Mg Tablet, 2.5 MG PO We, (Reported) Patient Home Medication List Home Medication List Reviewed: Yes Review of Systems Review of Systems Constitutional: see HPI; No chills, No fever; weakness EENTM: No nose congestion, No throat pain Respiratory: No cough, No short of breath Cardiovascular: No chest pain, No edema, No palpitations Gastrointestinal: No abdominal pain, No nausea, No vomiting Genitourinary: No dysuria, No pain Musculoskeletal: No back pain; joint pain Skin: no symptoms reported Psychiatric/Neurological: No Symptoms Reported All Other Systems Reviewed Negative Unless Noted: Yes Past [id number]-[id number] Hx Past Med/Social Hx: Reviewed Nursing Past Med/Soc Hx Patient Social History Alcohol Use: Denies Use Recreational Drug Use: No Smoking Status: Former Smoker Type Used: Cigarettes Former Smoker, Quit: Mar 05, 1966 2nd Hand Smoke Exposure: No Recent Foreign Travel: No Contact w/Someone Who Travel: No Recent Infectious Disease Expo: No Recent Hopitalizations: Yes (RIGHT KNEE 06/13/20) Physical Abuse: No Sexual Abuse: No Mistreated: No Fear: No Immunizations Up To Date Tetanus Booster (TDap): Unknown Date of Pneumonia Vaccine: Aug 26, 2016 Date of Influenza Vaccine: Aug 26, 2018 Seasonal Allergies Seasonal Allergies: No Past Medical History Surgeries: Yes (L TKR, INGUINAL HERNIA REPAIR, CAROTID, TRIGGER FINGER, R TKR) Abdominal, Cardiac, CABG, Coronary Stent, Eye Surgery, Gallbladder, Joint Replacement, Orthopedic, Vascular Surgery Respiratory: Yes (CPAP) Sleep Apnea Currently Using CPAP: Yes Cardiac: Yes (CABG 2012) Atrial Fibrillation, Coronary Artery Disease, Heart Attack, High Cholesterol, Hypertension, Peripheral Vascular Neurological: No Reproductive Disorders: No Sexually Transmitted Disease: No HIV/AIDS: No Genitourinary: Yes (CHRONIC RENAL FAILURE/INSUFFICIENCY) Benign Prostatic Hyperpl, Prostate Problems, Renal Failure Gastrointestinal: Yes Gastroesophageal Reflux, Diverticulosis Musculoskeletal: Yes Arthritis Endocrine: No HEENT: No (GLASSES) Cataract Loss of Vision: Denies Hearing Impairment: Denies Cancer: Yes (CLL--DX 2015--IN REMISSION AFTER 6 MONTHS OF CHEMO) Leukemia, Lymphoma Did You Recieve Any Treatments: Yes What Type of Treatment Did You: Chemotherapy Psychosocial: No Integumentary: No Blood Disorders: No Adverse Reaction/Blood Tranf: No (N/A) Family Medical History Reviewed Nursing Family Hx No Pertinent Family Hx Physical Exam Vital Signs Vital Signs - First Documented 06/17/20 06/17/20 13:49 14:07 Temp 36.7 Pulse 56 Resp 17 B/P (MAP) 97/47 (64) Pulse Ox 91 O2 Delivery Room Air O2 Flow Rate 4.00 Capillary Refill : Less Than 3 Seconds Height, Weight, BMI Height: 5'11.00" Weight: 197lbs. 2.0oz. 89.387572hy; 27.00 BMI Method:Estimated General Appearance: No Apparent Distress, WD/WN HEENT: PERRL/EOMI, Pharynx Normal Neck: Non Tender, Supple Respiratory: Lungs Clear, Normal Breath Sounds Cardiovascular: No Murmur, Bradycardia Gastrointestinal: Non Tender, Soft Back: Normal Inspection, No CVA Tenderness, No Vertebral Tenderness Extremity: Non Tender; No Swelling; Other (compressions stockings to both legs. Dressing over right knee that is island dressing to the anterior portion. A few spots of bloody drainage in the middle of the dressing but otherwise no purulence or foul smell. No red streaks up the leg or pain proximal to surgery site.) Neurologic/Psychiatric: Alert, Oriented x3 Skin: Normal Color, Warm/Dry Focused Exam Lactate Level 06/17/20 14:23: Lactic Acid Level 1.62 Lactic Acid Level Laboratory Tests Test 06/17/20 14:23 Lactic Acid Level 1.62 MMOL/L (0.50-2.00) Progress/Results/Core Measures Suspected Sepsis Recent Fever Within 48 Hours: No Infection Criteria Present: None New/Unexplained Altered Menta: No Sepsis Screen: No Definite Risk SIRS Temperature: Pulse: 56 Respiratory Rate: 17 Laboratory Tests 06/17/20 13:53: White Blood Count 13.7H Blood Pressure 97 /47 Mean: 64 06/17/20 14:23: Lactic Acid Level 1.62 Laboratory Tests 06/17/20 13:53: Creatinine 1.74H, INR Comment 1.2, Platelet Count 311, Total Bilirubin 1.8H Results/Orders Lab Results Laboratory Tests Test 06/17/20 13:53 06/17/20 14:23 06/17/20 15:22 06/17/20 15:55 Range/Units White Blood Count 13.7 H 4.3-11.0 10^3/uL Red Blood Count 3.91 L 4.35-5.85 10^6/uL Hemoglobin 11.3 L 13.3-17.7 G/DL Hematocrit 34 L 40-54 % Mean Corpuscular Volume 88 80-99 FL Mean Corpuscular Hemoglobin 29 25-34 PG Mean Corpuscular Hemoglobin Concent 33 32-36 G/DL Red Cell Distribution Width 14.6 H 10.0-14.5 % Platelet Count 311 130-400 10^3/uL Mean Platelet Volume 10.7 H 7.4-10.4 FL Neutrophils (%) (Auto) 56 42-75 % Lymphocytes (%) (Auto) 30 12-44 % Monocytes (%) (Auto) 13 H 0-12 % Eosinophils (%) (Auto) 2 0-10 % Basophils (%) (Auto) 0 0-10 % Neutrophils # (Auto) 7.7 1.8-7.8 X 10^3 Lymphocytes # (Auto) 4.1 H 1.0-4.0 X 10^3 Monocytes # (Auto) 1.7 H 0.0-1.0 X 10^3 Eosinophils # (Auto) 0.2 0.0-0.3 10^3/uL Basophils # (Auto) 0.0 0.0-0.1 10^3/uL Prothrombin Time 15.3 H 12.2-14.7 SEC INR Comment 1.2 0.8-1.4 Activated Partial Thromboplast Time 37 H 24-35 SEC Sodium Level 135 135-145 MMOL/L Potassium Level 4.6 3.6-5.0 MMOL/L Chloride Level 101 98-107 MMOL/L Carbon Dioxide Level 21 21-32 MMOL/L Anion Gap 13 5-14 MMOL/L Blood Urea Nitrogen 23 H 7-18 MG/DL Creatinine 1.74 H 0.60-1.30 MG/DL Estimat Glomerular Filtration Rate 38 BUN/Creatinine Ratio 13 Glucose Level 112 H 70-105 MG/DL Calcium Level 8.7 8.5-10.1 MG/DL Corrected Calcium 9.0 8.5-10.1 MG/DL Total Bilirubin 1.8 H 0.1-1.0 MG/DL Aspartate Amino Transf (AST/SGOT) 20 5-34 U/L Alanine Aminotransferase (ALT/SGPT) 20 0-55 U/L Alkaline Phosphatase 56 40-136 U/L Troponin I 0.030 H < 0.028 <0.028 NG/ML Total Protein 6.7 6.4-8.2 GM/DL Albumin 3.6 3.2-4.5 GM/DL Smear Scan YES Lactic Acid Level 1.62 0.50-2.00 MMOL/L Urine Color YELLOW Urine Clarity CLEAR Urine pH 7.5 5-9 Urine Specific [place] 1.010 L 1.016-1.022 Urine Protein 1+ H NEGATIVE Urine Glucose (UA) NEGATIVE NEGATIVE Urine Ketones NEGATIVE NEGATIVE Urine Nitrite NEGATIVE NEGATIVE Urine Bilirubin NEGATIVE NEGATIVE Urine Urobilinogen 1.0 < = 1.0 MG/DL Urine Leukocyte Esterase NEGATIVE NEGATIVE Urine RBC (Auto) NEGATIVE NEGATIVE Urine RBC NONE /HPF Urine WBC 0-2 /HPF Urine Squamous Epithelial Cells 2-5 /HPF Urine Crystals NONE /LPF Urine Bacteria NEGATIVE /HPF Urine Casts NONE /LPF Urine Mucus NEGATIVE /LPF Urine Culture Indicated CULTURE PENDING My Orders Orders - ASTRID WISDOM MD Cbc With Automated Diff (06/17/20 14:11) Comprehensive Metabolic Panel (06/17/20 14:11) Blood Culture (06/17/20 14:11) Sputum Culture (06/17/20 14:11) Urinalysis (06/17/20 14:11) Urine Culture (06/17/20 14:11) Protime With Inr (06/17/20 14:11) Partial Thromboplastin Time (06/17/20 14:11) Chest 1 View, Ap/Pa Only (06/17/20 14:11) Ed Iv/Invasive Line Start (06/17/20 14:11) Ekg Tracing (06/17/20 14:11) Troponin I (06/17/20 14:11) Vital Signs Adult Sepsis Patie Q15M (06/17/20 14:11) O2 (06/17/20 14:11) Remove Rings In Anticipation O (06/17/20 14:11) Lactic Acid Analyzer (06/17/20 14:11) Lactated Ringers (Lr 1000 Ml Iv Solution (06/17/20 14:11) Troponin I (06/17/20 15:50) Ns Iv 500 Ml (Sodium Chloride 0.9%) (06/17/20 15:50) Ns Iv 500 Ml (Sodium Chloride 0.9%) (06/17/20 15:49) Medications Given in ED Current Medications Medications Dose Ordered Sig/Mc Route Start Time Stop Time Status Last Admin Dose Admin Sodium Chloride 500 ml @ 0 mls/hr Q0M ONCE IV 06/17/20 15:50 06/17/20 15:51 DC 06/17/20 15:57 999 MLS/HR Vital Signs/I&O 06/17/20 06/17/20 13:49 14:07 Temp 36.7 Pulse 56 Resp 17 B/P (MAP) 97/47 (64) Pulse Ox 91 O2 Delivery Room Air Nasal Cannula O2 Flow Rate 4.00 Capillary Refill : Less Than 3 Seconds Blood Pressure Mean: 64 Progress Note : Progress Note Seen and evaluated. IV, labs, blood cultures, lactic acid, UA, chest x-ray and EKG ordered. 02 at 4 L via nasal cannula to keep sats greater than 90% initiated. LR 1 L bolus. Monitor patient. 1600: Overall doing better. Repeat troponin ordered as initial set was slightly bumped. Normal saline 500 mL bolus. Monitor patient. 1700: Doing much better with normal blood pressure and states feels better. Repeat troponin negative. I did discuss the case with Dr. Brown and we both agreed patient is safe for home. Patient agrees and wants to go home. I did talk with his daughter who will recheck his blood pressure in the morning and hold blood pressure meds as needed. Discharged home with return pr ecautions. Patient verbalize understanding instructions and agreement with plan. ECG Initial ECG Impression Date: Jun 17, 2020 Initial ECG Impression Time: 13:54 Initial ECG Rate: 56 Initial ECG Rhythm: Normal Sinus Comment Sinus rhythm with left ventricular hypertrophy. Normal axis. No evidence of ST elevation [place]. Similar to previous of 11/02/19. Interpreted by me. Diagnostic Imaging Diagonstic Imaging: Xray Plain Films/CT/US/NM/MRI: chest Comments [facility], [place] NAME: ANG[facility] REC#: [id number] PT STATUS: REG ER : 1945 PHYSICIAN: ASTRID WISDOM MD ADMIT DATE: 06/17/20/ER Signed Date of Exam:06/17/20 CHEST 1 VIEW, AP/PA ONLY EXAMINATION: Portable chest. COMPARISON: Prior study from November 02, 2018. FINDINGS: Patient is status post prior sternotomy and coronary artery bypass grafting. Heart size is stable. Pulmonary vascularity appears appropriate without evidence of failure. There are no findings of focal infiltrate or consolidation. There is no effusion. There is no pneumothorax. IMPRESSION: Previous operative changes of bypass grafting. No acute cardiopulmonary process evident. Dictated by: Dictated on workstation # [id number] Dict: 06/17/20 1501 Trans: 06/17/20 1513 PJE [id number] Interpreted by: DEBBIE OTERO MD Electronically signed by: DEBBIE OTERO MD 06/17/20 1513 Departure Impression Primary Impression: Dehydration Additional Impression: Hypotension Qualified Codes: I95.89 - Other hypotension; E86.1 - Hypovolemia Disposition: 01 HOME, SELF-CARE Condition: Improved Departure-Patient Inst. Decision time for Depature: 17:03 Referrals: MARYLOU BARAJAS MD (PCP/Family) Primary Care Physician Patient Instructions: Dehydration, Adult (DC), Low Blood Pressure (DC) Add. Discharge Instructions: All discharge instructions reviewed with patient and/or family. Voiced understanding. Continue home medications as previously prescribed but hold your blood pressure medicine if your blood pressure is less than 100 systolic. Return for worse pain, fever, vomiting, weakness, breathing problems or other concerns as needed. Drink plenty of fluids and get some rest. Try to eat a normal diet. Follow-up with your DrSlim in a few days for recheck as needed. ASTRID WISDOM MD Jun 17, 2020 14:36
--- NOTE | 2020-06-17 15:13 | Diagnostic Imaging Report ---
EXAMINATION: Portable chest. COMPARISON: Prior study from November 02, 2018. FINDINGS: Patient is status post prior sternotomy and coronary artery bypass grafting. Heart size is stable. Pulmonary vascularity appears appropriate without evidence of failure. There are no findings of focal infiltrate or consolidation. There is no effusion. There is no pneumothorax. IMPRESSION: Previous operative changes of bypass grafting. No acute cardiopulmonary process evident. Dictated by: Dictated on workstation # [id number]
[2020-06-17 15:31] LABS: BILIRUBIN,URINE NEGATIVE (NEGATIVE); CLARITY,URINE CLEAR; COLOR,URINE YELLOW; GLUCOSE, URINE (UA) NEGATIVE (NEGATIVE); KETONES,URINE NEGATIVE (NEGATIVE); LEUKOCYTE ESTERASE ,URINE NEGATIVE (NEGATIVE); NITRITE,URINE NEGATIVE (NEGATIVE); PH,URINE 7.5 (5-9); PROTEIN,URINE 1+ (NEGATIVE)
[2020-06-17 15:38] LABS: BACTERIA,URINE NEGATIVE /HPF; WBC,URINE 0-2 /HPF
[2020-06-17] MEDS ORDERED: NS IV 500 ML 500 ML ONE (15:49)
[2020-06-17] MEDS ORDERED: NS IV 500 ML 500 ML IV ONE (15:50)
[2020-06-17 17:07] VITALS: BP 120/69
== END 2020-06-17 17:07 | disposition home or self-care (01) ==
LOC: EDUNIT# 13:37 → ER 13:40
DX: I95.9 Hypotension, unspecified (principal); E86.0 Dehydration; I12.9 Hypertensive chronic kidney disease with stage 1 through stage 4 chronic kidney disease, or unspecified chronic kidney disease; N18.9 Chronic kidney disease, unspecified; E78.00 Pure hypercholesterolemia, unspecified; I25.2 Old myocardial infarction; I25.10 Atherosclerotic heart disease of native coronary artery without angina pectoris; I48.91 Unspecified atrial fibrillation; I73.9 Peripheral vascular disease, unspecified; Z96.653 Presence of artificial knee joint, bilateral; Z79.01 Long term (current) use of anticoagulants; Z79.02 Long term (current) use of antithrombotics/antiplatelets; Z88.8 Allergy status to other drugs, medicaments and biological substances; Z87.891 Personal history of nicotine dependence; Z85.6 Personal history of leukemia; Z85.72 Personal history of non-Hodgkin lymphomas
CPT/HCPCS: 36415; 71045; 80053; 81000; 83605; 84484; 85025; 85610; 85730; 87040; 87088

== ENCOUNTER → 2020-11-01 | Outpatient (CLI) | payer MEDICARE, OTHER ==
[~2020-11-01] MED LIST changes: -AMIO200T4 PO; +AMIO200T6 PO; +AMLO-250 PO; -AMLO5TAB9 PO; -WARF2.5T82 PO
[2020-11-01 14:05] LABS: BASOPHILS # (AUTO) 0.1 10^3/uL (0.0-0.1); BASOPHILS % (AUTO) 1 % (0-10); EOSINOPHILS # (AUTO) 0.4 10^3/uL (0.0-0.3); EOSINOPHILS % (AUTO) 4 % (0-10); HEMATOCRIT 43 % (40-54); HEMOGLOBIN 13.4 g/dL (13.3-17.7); LYMPHOCYTES # (AUTO) 4.5 10^3/uL (1.0-4.0); LYMPHOCYTES % (AUTO) 46 % (12-44); MEAN CORPUSCULAR HEMOGLOBIN 28 pg (25-34); MEAN CORPUSCULAR HGB CONC 31 g/dL (32-36); MEAN CORPUSCULAR VOLUME 92 fL (80-99); MEAN PLATELET VOLUME 10.1 fL (9.0-12.2); MONOCYTES # (AUTO) 1.4 10^3/uL (0.0-1.0); MONOCYTES % (AUTO) 14 % (0-12); NEUTROPHILS # (AUTO) 3.3 10^3/uL (1.8-7.8); NEUTROPHILS % (AUTO) 35 % (42-75); PLATELET COUNT 225 10^3/uL (130-400); WHITE BLOOD COUNT 9.7 10^3/uL (4.3-11.0)
[2020-11-01 14:26] LABS: BILIRUBIN,TOTAL 0.6 MG/DL (0.1-1.0); CREATININE SERUM 1.55 MG/DL (0.60-1.30); POTASSIUM 4.7 MMOL/L (3.6-5.0); TOTAL PROTEIN 7.2 GM/DL (6.4-8.2)
[2020-11-01 14:39] LABS: SMEAR SCAN COMMENT YES
== END ==
LOC: ONC 13:59
PROVIDERS: ATTEND Internal Medicine Hematology & Oncology
DX: C91.10 Chronic lymphocytic 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 (principal); I12.9 Hypertensive chronic kidney disease with stage 1 through stage 4 chronic kidney disease, or unspecified chronic kidney disease; N18.30 Chronic kidney disease, stage 3 unspecified; I25.10 Atherosclerotic heart disease of native coronary artery without angina pectoris; E78.5 Hyperlipidemia, unspecified; Z98.890 Other specified postprocedural states; Z98.61 Coronary angioplasty status; Z79.01 Long term (current) use of anticoagulants
CPT/HCPCS: 80053; 83615; 85025; G0463; 99213

== ENCOUNTER → 2021-05-02 | Outpatient (CLI) | payer MEDICARE, OTHER ==
[2021-05-02 14:22] LABS: BASOPHILS # (AUTO) 0.1 10^3/uL (0.0-0.1); BASOPHILS % (AUTO) 1 % (0-10); EOSINOPHILS # (AUTO) 0.4 10^3/uL (0.0-0.3); EOSINOPHILS % (AUTO) 4 % (0-10); HEMATOCRIT 45 % (40-54); HEMOGLOBIN 14.8 g/dL (13.3-17.7); LYMPHOCYTES # (AUTO) 5.7 10^3/uL (1.0-4.0); LYMPHOCYTES % (AUTO) 47 % (12-44); MEAN CORPUSCULAR HEMOGLOBIN 30 pg (25-34); MEAN CORPUSCULAR HGB CONC 33 g/dL (32-36); MEAN CORPUSCULAR VOLUME 92 fL (80-99); MEAN PLATELET VOLUME 10.1 fL (9.0-12.2); MONOCYTES # (AUTO) 2.5 10^3/uL (0.0-1.0); MONOCYTES % (AUTO) 20 % (0-12); NEUTROPHILS # (AUTO) 3.5 10^3/uL (1.8-7.8); NEUTROPHILS % (AUTO) 29 % (42-75); PLATELET COUNT 203 10^3/uL (130-400); WHITE BLOOD COUNT 12.3 10^3/uL (4.3-11.0)
[2021-05-02 14:40] LABS: ALBUMIN 3.9 GM/DL (3.2-4.5); BILIRUBIN,TOTAL 0.9 MG/DL (0.1-1.0); CREATININE SERUM 1.36 MG/DL (0.60-1.30); POTASSIUM 4.2 MMOL/L (3.6-5.0); TOTAL PROTEIN 7.2 GM/DL (6.4-8.2)
== END ==
LOC: ONC 14:10
PROVIDERS: ATTEND Internal Medicine Hematology & Oncology
DX: C91.10 Chronic lymphocytic 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 (principal); I12.9 Hypertensive chronic kidney disease with stage 1 through stage 4 chronic kidney disease, or unspecified chronic kidney disease; N18.30 Chronic kidney disease, stage 3 unspecified; E78.5 Hyperlipidemia, unspecified; I25.10 Atherosclerotic heart disease of native coronary artery without angina pectoris; Z79.01 Long term (current) use of anticoagulants; Z98.61 Coronary angioplasty status
CPT/HCPCS: 80053; 85025; G0463; 99213

== ENCOUNTER → 2021-10-30 | Outpatient (CLI) | payer MEDICARE, OTHER ==
[~2021-10-30] MED LIST changes: -AMIO200T6 PO; +AMIO200T65 PO
[2021-10-30 09:05] LABS: BASOPHILS # (AUTO) 0.1 10^3/uL (0.0-0.1); BASOPHILS % (AUTO) 1 % (0-10); EOSINOPHILS # (AUTO) 0.5 10^3/uL (0.0-0.3); EOSINOPHILS % (AUTO) 4 % (0-10); HEMATOCRIT 41 % (40-54); HEMOGLOBIN 13.4 g/dL (13.3-17.7); LYMPHOCYTES # (AUTO) 6.1 10^3/uL (1.0-4.0); LYMPHOCYTES % (AUTO) 53 % (12-44); MEAN CORPUSCULAR HEMOGLOBIN 30 pg (25-34); MEAN CORPUSCULAR HGB CONC 32 g/dL (32-36); MEAN CORPUSCULAR VOLUME 93 fL (80-99); MEAN PLATELET VOLUME 10.3 fL (9.0-12.2); MONOCYTES % (AUTO) 18 % (0-12); NEUTROPHILS # (AUTO) 2.9 10^3/uL (1.8-7.8); NEUTROPHILS % (AUTO) 25 % (42-75); PLATELET COUNT 169 10^3/uL (130-400); WHITE BLOOD COUNT 11.6 10^3/uL (4.3-11.0)
[2021-10-30 09:28] LABS: ALBUMIN 3.5 GM/DL (3.2-4.5); BILIRUBIN,TOTAL 1.2 MG/DL (0.1-1.0); CALCIUM 8.7 MG/DL (8.5-10.1); CREATININE SERUM 1.54 MG/DL (0.60-1.30); TOTAL PROTEIN 6.7 GM/DL (6.4-8.2)
== END ==
LOC: ONC 08:54
PROVIDERS: ATTEND Internal Medicine Hematology & Oncology
DX: C91.10 Chronic lymphocytic 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 (principal); K76.0 Fatty (change of) liver, not elsewhere classified; I12.9 Hypertensive chronic kidney disease with stage 1 through stage 4 chronic kidney disease, or unspecified chronic kidney disease; N18.30 Chronic kidney disease, stage 3 unspecified; I48.91 Unspecified atrial fibrillation; I48.92 Unspecified atrial flutter; I25.10 Atherosclerotic heart disease of native coronary artery without angina pectoris; E78.5 Hyperlipidemia, unspecified; E66.9 Obesity, unspecified; Z98.61 Coronary angioplasty status; Z79.01 Long term (current) use of anticoagulants
CPT/HCPCS: 80053; 83615; 85025; G0463; 99213

== ENCOUNTER → 2022-05-02 | Outpatient (CLI) | payer MEDICARE, OTHER ==
[~2022-05-02] MED LIST changes: +OMEP20TA56 PO; -OMEP20TA7 PO
--- NOTE | 2022-05-02 11:04 | Diagnostic Imaging Report ---
PROCEDURE: MR imaging of the brain without contrast. TECHNIQUE: Multiplanar, multisequence MR imaging of the brain was performed without contrast. INDICATION: Dizziness and loss of balance. COMPARISON: I have no relevant comparison. FINDINGS: There are no foci of abnormal diffusion restriction. There is no evidence for an acute or subacute ischemic infarct. There is no focal or generalized cerebral edema, and no evidence for elevation of the intracranial pressures. The ventricular calibers are congruent with the degree of sulcation, and the overall pattern suggests mild generalized cerebral cortical atrophy and chronic volume loss, not particularly remarkable given the patient's age. There is no hydrocephalus. Basilar cisterns are patent. There is no sulcal effacement. There are only minimal periventricular white matter changes, likely very mild small vessel disease. No acute appearing intracranial abnormality. The orbits and paranasal sinuses are nonacute. There is no mastoid effusion. There is no cerebellopontine angle mass or mass effect. IMPRESSION: Mild chronic senescent changes with no hemorrhage, infarct, mass effect, edema, or acute appearing abnormalities. Dictated by: Dictated on workstation # [id number]
== END ==
LOC: RAD 08:00
PROVIDERS: ATTEND Nurse Practitioner Family
DX: G31.1 Senile degeneration of brain, not elsewhere classified (principal)
CPT/HCPCS: 70551

== ENCOUNTER 2022-05-08 09:10 | Outpatient (RCR) | payer MEDICARE, OTHER ==
[2022-05-03 11:06] LABS: BASOPHILS # (AUTO) 0.1 10^3/uL (0.0-0.1); BASOPHILS % (AUTO) 1 % (0-10); EOSINOPHILS # (AUTO) 0.3 10^3/uL (0.0-0.3); EOSINOPHILS % (AUTO) 3 % (0-10); HEMATOCRIT 41 % (40-54); HEMOGLOBIN 13.5 g/dL (13.3-17.7); LYMPHOCYTES # (AUTO) 6.6 10^3/uL (1.0-4.0); LYMPHOCYTES % (AUTO) 51 % (12-44); MEAN CORPUSCULAR HEMOGLOBIN 30 pg (25-34); MEAN CORPUSCULAR HGB CONC 33 g/dL (32-36); MEAN CORPUSCULAR VOLUME 92 fL (80-99); MONOCYTES % (AUTO) 24 % (0-12); NEUTROPHILS # (AUTO) 2.9 10^3/uL (1.8-7.8); NEUTROPHILS % (AUTO) 22 % (42-75); PLATELET COUNT 167 10^3/uL (130-400); WHITE BLOOD COUNT 12.9 10^3/uL (4.3-11.0)
[2022-05-03 11:22] LABS: ALBUMIN 3.8 GM/DL (3.2-4.5); BILIRUBIN,TOTAL 0.9 MG/DL (0.1-1.0); CALCIUM 9.1 MG/DL (8.5-10.1); CREATININE SERUM 1.57 MG/DL (0.60-1.30); POTASSIUM 4.7 MMOL/L (3.6-5.0); TOTAL PROTEIN 7.5 GM/DL (6.4-8.2)
== END 2022-05-16 | disposition home or self-care (01) ==
LOC: ONC 09:10
PROVIDERS: ATTEND Internal Medicine Hematology & Oncology
DX: C91.10 Chronic lymphocytic 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 (principal); I25.10 Atherosclerotic heart disease of native coronary artery without angina pectoris; I12.9 Hypertensive chronic kidney disease with stage 1 through stage 4 chronic kidney disease, or unspecified chronic kidney disease; N18.30 Chronic kidney disease, stage 3 unspecified; E78.2 Mixed hyperlipidemia; E66.9 Obesity, unspecified; I48.0 Paroxysmal atrial fibrillation; Z79.01 Long term (current) use of anticoagulants; Z98.61 Coronary angioplasty status
CPT/HCPCS: 36415; 80053; 83615; 85025; 99213

== ENCOUNTER 2022-06-09 08:03 | Emergency (ER) | payer MEDICARE, OTHER ==
[~2022-06-09] VITALS: Ht 172.7 cm; Wt 88.4 kg
--- NOTE | 2022-06-09 08:21 | ED Respiratory ---
General Chief Complaint: COVID19 Suspect/Confirmed Stated Complaint: COVID POSITIVE 05/28 - WEAKNESS - COUGH - FATIGUE Source: patient Exam Limitations: no limitations History of Present Illness Date Seen by Provider: Jun 09, 2022 Time Seen by Provider: 08:17 Initial Comments Patient to the ER by private conveyance from home with his daughter and chief complaint of shortness of air fatigue diarrhea progressively getting worse over the past couple days. He was diagnosed with COVID-19 12 days ago on the . He is not having any fevers or chills. He was given azithromycin and put on a Medrol Dosepak. He is followed by Dr. Husain. He has a history of obstructive sleep apnea on CPAP at night but does not require supplemental oxygen. He denies any nausea or chest pain. He does have a significant history of coronary disease and A. fib on warfarin but has not had his PT/INR checked in about a month. No history of heart failure. Echocardiogram by Dr. Meyer and Dr. Brown in 2017 demonstrating an EF of 55 to 60% with moderate mitral valve regurgitation and mild aortic valve regurgita tion. History of atrial fibrillation status post maze procedure on warfarin. History of coronary disease with two-vessel bypass in 2012 and PCI in the LAD and left circumflex artery. Stress test by Dr. Brown 2019 demonstrating no evidence of significant myocardial ischemia or infarction and an EF of 65%. Last coronary angiogram [address] Meyer with distal occlusion intervened on in the distal RCA. No stent performed. On dual antiplatelets. Allergies and Home Medications Allergies Uncoded Allergies: TAPE (Allergy, Intermediate, 05/19/19) RED, SWELLING, ITCHING, BURNING Patient Home Medication List Home Medication List Reviewed: Yes Amiodarone HCl (Amiodarone HCl) 200 Mg Tablet, 200 MG PO DAILY, (Reported) Entered as Reported by: YULISA BROWN on 05/11/19 1355 Atorvastatin Calcium (Atorvastatin Calcium) 80 Mg Tablet, 80 MG PO HS, (Reported) Entered as Reported by: ANTHONY BURNETTE on 11/02/18 1324 Azithromycin (Azithromycin) 250 Mg Tablet, 250 MG PO UD Prescribed by: BRIGIDA NUGENT on 06/09/22 1027 Bacillus Coagulans/Inulin (Probiotic Formula Capsule) 1 Billion Cell-250 Mg Capsule, 1 EACH PO BID Prescribed by: BRIGIDA NUGENT on 06/09/22 1027 Cefdinir (Cefdinir) 300 Mg Capsule, 300 MG PO BID Prescribed by: BRIGIDA NUGENT on 06/09/22 1027 Fenofibric Acid (Choline) (Trilipix) 135 Mg Capsule.dr, 135 MG PO HS, (Reported) Entered as Reported by: YULISA BROWN on 09/14/15 0959 Finasteride (Finasteride) 5 Mg Tablet, 5 MG PO DAILY, (Reported) Entered as Reported by: YULISA BROWN on 05/11/19 1355 Hydrocodone Bit/Acetaminophen (Lortab 5 Mg Tablet) 1 Tab Tab, 1 TAB PO Q6H PRN for PAIN-MODERATE Prescribed by: ARMEN ROSENBERG on 05/19/19 1240 Ipratropium/Albuterol Sulfate (Iprat-Albut 0.5-3(2.5) mg/3 ml) 0.5 Mg-3 Mg (2.5 Mg Base)/3 Ml Ampul.neb, 3 ML IH Q4H PRN for SHORTNESS OF BREATH Prescribed by: BRIGIDA NUGENT on 06/09/22 1027 Metoprolol Succinate (Metoprolol Succinate) 25 Mg Tab.er.24h, 25 MG PO DAILY Prescribed by: ANATOLIY LUNA on 11/03/18 0830 Omeprazole (Omeprazole) 20 Mg Tablet.dr, 20 MG PO DAILY, (Reported) Entered as Reported by: YULISA BROWN on 05/11/19 1355 Ramipril (Ramipril) 10 Mg Capsule, 10 MG PO DAILY, (Reported) Entered as Reported by: ANTHONY BURNETTE on 11/02/18 1323 Warfarin Sodium (Warfarin Sodium) 5 Mg Tablet, 5 MG PO TuTh, (Reported) Entered as Reported by: YULISA BROWN on 05/11/19 1355 Warfarin Sodium (Warfarin Sodium) 2.5 Mg Tablet, 2.5 MG PO SuMoWeFrSa, (Reported) Entered as Reported by: YULISA BROWN on 05/11/19 1355 Review of Systems Review of Systems Constitutional: No chills; dizziness; No fever; malaise EENTM: No ear discharge, No ear pain Respiratory: cough, short of breath, wheezing Cardiovascular: No edema, No palpitations Gastrointestinal: No abdominal pain, No constipation; diarrhea, loss of appetite; No nausea Genitourinary: No discharge, No dysuria Musculoskeletal: No back pain, No joint pain Skin: No pruritus, No rash All Other Systems Reviewed Negative Unless Noted: Yes Past Czhjckr-Nxruqn-Gfbavp Hx Patient Social History Tobacco Use?: No Use of E-Cig and/or Vaping dev: No Substance use?: No Immunizations Up To Date Tetanus Booster (TDap): Unknown Seasonal Allergies Seasonal Allergies: No Past Medical History Surgeries: Yes (L TKR, INGUINAL HERNIA REPAIR, CAROTID, TRIGGER FINGER, R TKR) Abdominal, Cardiac, CABG, Coronary Stent, Eye Surgery, Gallbladder, Joint Replacement, Orthopedic, Vascular Surgery Respiratory: Yes (CPAP) Sleep Apnea Currently Using CPAP: Yes Cardiac: Yes (CABG 2012) Atrial Fibrillation, Coronary Artery Disease, Heart Attack, High Cholesterol, Hypertension, Peripheral Vascular Neurological: No Reproductive Disorders: No Sexually Transmitted Disease: No HIV/AIDS: No Genitourinary: Yes (CHRONIC RENAL FAILURE/INSUFFICIENCY) Benign Prostatic Hyperpl, Prostate Problems, Renal Failure Gastrointestinal: Yes Gastroesophageal Reflux, Diverticulosis Musculoskeletal: Yes Arthritis Endocrine: No HEENT: No (GLASSES) Cataract Loss of Vision: Denies Hearing Impairment: Denies Cancer: Yes (CLL--DX 2015--IN REMISSION AFTER 6 MONTHS OF CHEMO) Leukemia, Lymphoma Did You Recieve Any Treatments: Yes What Type of Treatment Did You: Chemotherapy Psychosocial: No Integumentary: No Blood Disorders: No Adverse Reaction/Blood Tranf: No (N/A) Family Medical History No Pertinent Family Hx Physical Exam Vital Signs - First Documented 06/09/22 08:15 Temp 36.8 Pulse 62 Resp 20 B/P (MAP) 125/73 (90) Pulse Ox 94 Capillary Refill : Height: 5'11.00" Weight: 197lbs. 2.0oz. 89.989950pa; 27.00 BMI Method:Estimated General Appearance: WD/WN, mild distress Eyes: Bilateral Eye Normal Inspection, Bilateral Eye PERRL, Bilateral Eye EOMI HEENT: PERRL/EOMI, normal ENT inspection, TMs normal; No pharynx normal (Dry oral mucosa) Neck: full range of motion, supple, normal inspection Respiratory: no respiratory distress (18 graspers), no accessory muscle use, crackles (Left base), wheezing (Expiratory) Cardiovascular: normal peripheral pulses, regular rate, rhythm Gastrointestinal: normal bowel sounds, non tender, soft Extremities: normal range of motion, non-tender, normal capillary refill Neurologic/Psychiatric: alert, normal mood/affect, oriented x 3 Skin: normal color, warm/dry Progress/Results/Core Measures Suspected Sepsis SIRS Temperature: Pulse: Respiratory Rate: Laboratory Tests 06/09/22 08:35: White Blood Count 20.9H Blood Pressure / Mean: Laboratory Tests 06/09/22 08:35: Creatinine 1.39H, INR Comment 3.4H, Platelet Count 133, Total Bilirubin 1.1H Results/Orders Lab Results Laboratory Tests Test 06/09/22 08:35 06/09/22 08:40 Range/Units White Blood Count 20.9 H 4.3-11.0 10^3/uL Red Blood Count 4.31 4.30-5.52 10^6/uL Hemoglobin 12.8 L 13.3-17.7 g/dL Hematocrit 40 40-54 % Mean Corpuscular Volume 92 80-99 fL Mean Corpuscular Hemoglobin 30 25-34 pg Mean Corpuscular Hemoglobin Concent 32 32-36 g/dL Red Cell Distribution Width 14.8 H 10.0-14.5 % Platelet Count 133 130-400 10^3/uL Mean Platelet Volume 10.0 9.0-12.2 fL Immature Granulocyte % (Auto) 0 % Neutrophils (%) (Auto) 21 L 42-75 % Lymphocytes (%) (Auto) 55 H 12-44 % Monocytes (%) (Auto) 22 H 0-12 % Eosinophils (%) (Auto) 1 0-10 % Basophils (%) (Auto) 0 0-10 % Neutrophils # (Auto) 4.5 1.8-7.8 10^3/uL Lymphocytes # (Auto) 11.5 H 1.0-4.0 10^3/uL Monocytes # (Auto) 4.6 H 0.0-1.0 10^3/uL Eosinophils # (Auto) 0.3 0.0-0.3 10^3/uL Basophils # (Auto) 0.0 0.0-0.1 10^3/uL Immature Granulocyte # (Auto) 0.1 0.0-0.1 10^3/uL Neutrophils % (Manual) 16 % Lymphocytes % (Manual) 10 % Monocytes % (Manual) 7 % Eosinophils % (Manual) 1 % Basophils % (Manual) 0 % Band Neutrophils 0 % Reactive Lymphocytes 66 % Percent Immature Platelet Fraction 2.9 0.0-7.6 % Blood Morphology Comment NORMAL Prothrombin Time 34.7 H 12.2-14.7 SEC INR Comment 3.4 H 0.8-1.4 Sodium Level 142 135-145 MMOL/L Potassium Level 4.1 3.6-5.0 MMOL/L Chloride Level 108 H 98-107 MMOL/L Carbon Dioxide Level 22 21-32 MMOL/L Anion Gap 12 5-14 MMOL/L Blood Urea Nitrogen 25 H 7-18 MG/DL Creatinine 1.39 H 0.60-1.30 MG/DL Estimat Glomerular Filtration Rate 52 BUN/Creatinine Ratio 18 Glucose Level 136 H 70-105 MG/DL Calcium Level 8.7 8.5-10.1 MG/DL Corrected Calcium 9.3 8.5-10.1 MG/DL Total Bilirubin 1.1 H 0.1-1.0 MG/DL Aspartate Amino Transf (AST/SGOT) 20 5-34 U/L Alanine Aminotransferase (ALT/SGPT) 25 0-55 U/L Alkaline Phosphatase 60 40-136 U/L Troponin I < 0.028 <0.028 NG/ML C-Reactive Protein High Sensitivity 1.47 H 0.00-0.50 MG/DL B-Type Natriuretic Peptide 97.9 <100.0 PG/ML Total Protein 6.6 6.4-8.2 GM/DL Albumin 3.3 3.2-4.5 GM/DL Blood Gas Puncture Site R RAD Blood Gas Patient Temperature 36.6 Arterial Blood pH 7.38 7.37-7.43 Arterial Blood Partial Pressure CO2 33 L 35-45 MMHG Arterial Blood Partial Pressure O2 72 L 79-93 MMHG Arterial Blood HCO3 20 L 23-27 MMOL/L Arterial Blood Total CO2 20.7 L 21.0-31.0 MMOL/L Arterial Blood Oxygen Saturation 94 94-100 % Arterial Blood Base Excess -4.6 L -2.5-2.5 MMOL/L Nathan Test YES-POS Blood Gas Ventilator Setting NO Blood Gas Inspired Oxygen ROOM AIR My Orders Orders - BRIGIDA NUGENT Ed Iv/Invasive Line Start (06/09/22 08:33) Ns Iv 500 Ml (Sodium Chloride 0.9%) (7/24/22 08:45) Cbc With Automated Diff (06/09/22 08:33) Comprehensive Metabolic Panel (06/09/22 08:33) Hs C Reactive Protein (06/09/22 08:33) Bnp [place] (06/09/22 08:33) Chest 1 View, Ap/Pa Only (06/09/22 08:33) Covid-19 External Lab Results (06/09/22 08:33) Protime With Inr (06/09/22 08:33) Troponin I [place] (06/09/22 08:33) Ekg Tracing (06/09/22 08:33) Continuous Ekg Monitoring (06/09/22 08:33) Albuterol/Ipra Inhalation Soln (Duoneb I (06/09/22 08:45) Svn Small Volume Nebulizer (06/09/22 08:40) Arterial Blood Gas (06/09/22 08:40) Ns Iv 500 Ml (Sodium Chloride 0.9%) (06/09/22 08:48) Manual Differential (06/09/22 08:35) Ed Iv/Invasive Line Start (06/09/22 09:19) Ns Iv 500 Ml (Sodium Chloride 0.9%) (06/09/22 09:30) Mycoplasma Antibodies (06/09/22 10:28) Medications Given in ED Current Medications Medications Dose Ordered Sig/Mc Route Start Time Stop Time Status Last Admin Dose Admin Albuterol/ Ipratropium 3 ml ONCE ONCE INH 06/09/22 08:45 06/09/22 08:46 DC 06/09/22 09:40 3 ML Sodium Chloride 500 ml @ 0 mls/hr Q0M ONCE IV 06/09/22 08:45 06/09/22 08:46 DC 06/09/22 08:50 500 MLS/HR Sodium Chloride 500 ml @ 0 mls/hr Q0M ONCE IV 06/09/22 09:30 06/09/22 09:31 DC 06/09/22 09:42 500 MLS/HR Vital Signs/I&O 06/09/22 08:15 Temp 36.8 Pulse 62 Resp 20 B/P (MAP) 125/73 (90) Pulse Ox 94 Capillary Refill : Progress Note : Time: 10:20 Progress Note The patient had significant improvement with a DuoNeb for his wheezing. We will also have him hold his metoprolol and ramipril as his blood pressure was on the soft side probably due to his poor appetite and diarrhea. After liter of fluids he is certainly doing better. He is not in heart failure actively. Because of hearing crackles and he has an elevated white count and its been 3 days since he finished his steroid Dosepak the suspicion is that he may have developed a pneumonia bacterial type in that left lower lung that cannot be seen on the c hest x-ray. We will go ahead and put him on cefdinir and another course of azithromycin as well as probiotics. Return precautions have been discussed. His ABG showed a little mild hypoxia which should have improved after the breathing treatment. He has no wheezing on repeat auscultation. His INR is elevated so we will have him just take 2-1/2 mg of warfarin this week and reche ck his INR on and follow-up next week with primary care. Return precautions were discussed. ECG Initial ECG Impression Date: Jun 09, 2022 Initial ECG Impression Time: 08:56 Initial ECG Rate: 52 Initial ECG Rhythm: Normal Sinus Initial ECG Intervals: Normal Initial ECG Impression: Normal Comment Normal sinus rhythm without clinically relevant ST changes. Diagnostic Imaging Diagonstic Imaging: Xray Plain Films/CT/US/NM/MRI: chest Comments [facility], [place] NAME: [facility] REC#: [id number] PT STATUS: REG ER : 1945 PHYSICIAN: BRIGIDA NUGENT MD ADMIT DATE: 06/09/22/ER Draft Date of Exam:06/09/22 CHEST 1 VIEW, AP/PA ONLY INDICATION: SOA, cough, post Covid 12 days. TECHNIQUE: Single view chest at 9:27 AM. CORRELATION STUDY: 06/17/2020. FINDINGS: Post sternotomy changes with coronary bypass rings. Heart size and mediastinum are enlarged and prominent. Vasculature is slightly increased from prior. The lungs are clear with no consolidating infiltrate. There is no significant effusion or pneumothorax. IMPRESSION: Post sternotomy change. Heart size, mediastinum, and vasculature overall appear slightly more prominent from prior which could reflect mild edema. Dictated on workstation # [id number] Dict: 06/09/2229 Trans: 06/09/22 0931 [id number] Interpreted by: DANIEL KRUSE DO Electronically signed by: Reviewed: Reviewed by Me Departure Impression Primary Impression: Pneumonia Qualified Codes: J18.9 - Pneumonia, unspecified organism Additional Impressions: Post covid-19 condition, unspecified Supratherapeutic INR Disposition: HOME, SELF-CARE Condition: Stable Departure-Patient Inst. Decision time for Depature: 10:22 Referrals: MARYLOU HUSAIN MD (PCP/Family) Primary Care Physician Patient Instructions: Community-Acquired Pneumonia, Adult (DC), What to Do When Your INR Is Too High Add. Discharge Instructions: If you are having shortness of air or wheezing or coughing fits then use a vial of DuoNeb every 4 hours as needed through the nebulizer. Cefdinir 1 capsule twice a day for 10 days to treat left lung pneumonia. Azithromycin 2 tablets today and 1 tablet every day afterwards until completed to treat left lower lung pneumonia. Drink plenty of fluids for the next few days. Hold your ramipril and metoprolol until you are feeling better or if your blood pressure stays significantly above 160 over 110 first thing in the morning. Make a follow-up appointment next week with your primary care doctor. Return to the lab on to have your PT/INR rechecked and the results will be forwarded to your primary care provider for review. Take 2.5 mg of warfarin daily until you have seen your primary care provider to review your INR. Return to the ER promptly for shortness of air especially with oxygen saturations below 90% or other worrisome symptoms. Continue to use your CPAP as prescribed. Probiotics 1 capsule twice a day will help reduce the incidence of diarrhea associated with antibiotics. All discharge instructions reviewed with patient and/or family. Voiced understanding. Scripts Bacillus Coagulans/Inulin (Probiotic Formula Capsule) 1 Billion Cell-250 Mg Capsule 1 EACH PO BID for 14 Days, #30 CAP 0 Refills Prov: BRIGIDA NUGENT 06/09/22 Azithromycin (Azithromycin) 250 Mg Tablet 250 MG PO UD, #6 TAB 0 Refills TAKE 2 TABLETS ON DAY ONE THEN TAKE 1 TABLET DAILY FOR FOUR MORE DAYS Prov: BRIGIDA NUGENT 06/09/22 Cefdinir (Cefdinir) 300 Mg Capsule 300 MG PO BID for 10 Days, #20 CAP 0 Refills Prov: BRIGIDA NUGENT 06/09/22 Ipratropium/Albuterol Sulfate (Iprat-Albut 0.5-3(2.5) mg/3 ml) 0.5 Mg-3 Mg (2.5 Mg Base)/3 Ml Ampul.neb 3 ML IH Q4H PRN for SHORTNESS OF BREATH, #60 EACH 0 Refills Prov: BRIGIDA NUGENT 06/09/22 Copy Copies To 1: MARYLOU HUSAIN MD, TITUS J Jun 09, 2022 08:21
[2022-06-09 08:44] LABS: ABG BASE EXCESS -4.6 MMOL/L (-2.5-2.5); ABG OXYGEN SATURATION 94 % (94-100); ABG PCO2 33 MMHG (35-45); ABG PH 7.38 (7.37-7.43); ABG PO2 72 MMHG (79-93); ABG TCO2 20.7 MMOL/L (21.0-31.0); ALLENS TEST YES-POS; INSPIRED O2 ROOM AIR; PATIENT TEMP 36.6; VENTILATOR NO
[2022-06-09] MEDS ORDERED: RT-ALBUTEROL/IPRATROPIUM 3 ML (DUONEB) VIAL INH ONE (08:45)
[2022-06-09] MEDS ORDERED: NS IV 500 ML 500 ML IV ONE ×2 (08:45→09:30)
[2022-06-09] MEDS ORDERED: NS IV 500 ML 500 ML ONE (08:48)
[2022-06-09 09:07] LABS: ALBUMIN 3.3 GM/DL (3.2-4.5); CHLORIDE 108 MMOL/L (98-107); POTASSIUM 4.1 MMOL/L (3.6-5.0); SODIUM 142 MMOL/L (135-145)
[2022-06-09 09:08] LABS: CALCIUM 8.7 MG/DL (8.5-10.1)
[2022-06-09 09:10] LABS: GLUCOSE 136 MG/DL (70-105); TOTAL PROTEIN 6.6 GM/DL (6.4-8.2)
[2022-06-09 09:11] LABS: BILIRUBIN,TOTAL 1.1 MG/DL (0.1-1.0); CARBON DIOXIDE 22 MMOL/L (21-32)
[2022-06-09 09:13] LABS: ALKALINE PHOSPHATASE 60 U/L (40-136); CREATININE SERUM 1.39 MG/DL (0.60-1.30); GFR ESTIMATED 52
[2022-06-09 09:14] LABS: BASOPHILS % (AUTO) 0 % (0-10); MEAN CORPUSCULAR VOLUME 92 fL (80-99)
[2022-06-09 09:15] LABS: BUN/CREATININE RATIO 18
[2022-06-09 09:16] LABS: ALANINE AMINOTRANSFERASE 25 U/L (0-55); EOSINOPHILS # (AUTO) 0.3 10^3/uL (0.0-0.3); EOSINOPHILS % (AUTO) 1 % (0-10); HEMATOCRIT 40 % (40-54); HEMOGLOBIN 12.8 g/dL (13.3-17.7); LYMPHOCYTES # (AUTO) 11.5 10^3/uL (1.0-4.0); LYMPHOCYTES % (AUTO) 55 % (12-44); MEAN CORPUSCULAR HEMOGLOBIN 30 pg (25-34); MEAN CORPUSCULAR HGB CONC 32 g/dL (32-36); MONOCYTES # (AUTO) 4.6 10^3/uL (0.0-1.0); MONOCYTES % (AUTO) 22 % (0-12); NEUTROPHILS # (AUTO) 4.5 10^3/uL (1.8-7.8); NEUTROPHILS % (AUTO) 21 % (42-75); PLATELET COUNT 133 10^3/uL (130-400); WHITE BLOOD COUNT 20.9 10^3/uL (4.3-11.0)
[2022-06-09 09:19] LABS: INR 3.4 (0.8-1.4); PROTHROMBIN TIME PATIENT 34.7 SEC (12.2-14.7)
--- NOTE | 2022-06-09 09:32 | Diagnostic Imaging Report ---
INDICATION: SOA, cough, post Covid 12 days. TECHNIQUE: Single view chest at 9:27 AM. CORRELATION STUDY: 06/17/2020. FINDINGS: Post sternotomy changes with coronary bypass rings. Heart size and mediastinum are enlarged and prominent. Vasculature is slightly increased from prior. The lungs are clear with no consolidating infiltrate. There is no significant effusion or pneumothorax. IMPRESSION: Post sternotomy change. Heart size, mediastinum, and vasculature overall appear slightly more prominent from prior which could reflect mild edema. Dictated by: Dictated on workstation # [id number]
[2022-06-09 09:45] LABS: BAND NEUTROPHILS 0 %; EOSINOPHILS % (MANUAL) 1 %; MONOCYTES % (MANUAL) 7 %; NEUTROPHILS % (MANUAL) 16 %
[2022-06-09 09:46] LABS: BASOPHILS % (MANUAL) 0 %; LYMPHOCYTES % (MANUAL) 10 %; RBC MORPH NORMAL; REACTIVE LYMPHOCYTES 66 %
[2022-06-09] MEDS ORDERED: IPRA3AMP31 IH (10:27)
[2022-06-09] MEDS ORDERED: BACI1CAP10 PO (10:27)
[2022-06-09] MEDS ORDERED: CEFD300C3 PO (10:27)
[2022-06-09] MEDS ORDERED: AZIT250T12 PO (10:27)
[2022-06-09 10:52] VITALS: BP 111/62
== END 2022-06-09 10:52 | disposition home or self-care (01) ==
LOC: EDUNIT# 08:03 → ER 08:04
DX: U09.9 Post COVID-19 condition, unspecified (principal); J18.9 Pneumonia, unspecified organism; R79.1 Abnormal coagulation profile; G47.30 Sleep apnea, unspecified; J44.9 Chronic obstructive pulmonary disease, unspecified; I48.91 Unspecified atrial fibrillation; Z79.01 Long term (current) use of anticoagulants; Z99.89 Dependence on other enabling machines and devices; Z85.6 Personal history of leukemia; Z85.72 Personal history of non-Hodgkin lymphomas
CPT/HCPCS: 36415; 71045; 80053; 82805; 83880; 84484; 85007; 85027; 85610; 86141; 86738; 93005

== ENCOUNTER → 2022-06-14 | Outpatient (CLI) | payer MEDICARE, OTHER ==
[~2022-06-14] MED LIST changes: +AZIT250T12 PO; +BACI1CAP10 PO; +CEFD300C3 PO; +IPRA3AMP31 IH
--- NOTE | 2022-06-14 10:19 | Diagnostic Imaging Report ---
INDICATION: Pneumonia. COMPARISON: 06/09/2022. FINDINGS: Sternal wires midline. The heart size within normal limits and stable. There is flattening of the diaphragms and air trapping chronic. No focal infiltrate, effusion, pneumothorax or acute failure pattern. IMPRESSION: Stable chronic findings. Dictated by: Dictated on workstation # [id number]
== END ==
LOC: RAD 08:24
PROVIDERS: ATTEND Nurse Practitioner Family
DX: J18.9 Pneumonia, unspecified organism (principal)
CPT/HCPCS: 71046

== ENCOUNTER 2022-09-19 05:38 | Outpatient (CLI) | payer MEDICARE, OTHER ==
[~2022-09-19] VITALS: Ht 175.3 cm; Wt 208.6 kg
[2022-09-19] MEDS ORDERED: MV-M1TAB20 PO (14:00)
[2022-09-19] MEDS ORDERED: FINA5TAB6 PO (14:00)
[2022-09-19] MEDS ORDERED: AMLO-250 PO (14:00)
[2022-09-19] MEDS ORDERED: CARV12.53 PO (14:00)
== END 2022-09-19 14:24 | disposition home or self-care (01) ==
LOC: PREOP 05:38
PROVIDERS: ATTEND Otolaryngology Otolaryngology/Facial Plastic Surgery
DX: Z01.818 Encounter for other preprocedural examination (principal)

== ENCOUNTER 2022-09-26 08:15 | Day surgery (SDC) | payer MEDICARE, OTHER ==
[2022-09-26] VITALS (10 sets, daily range): BP systolic 151–173; BP diastolic 74–88
[~2022-09-26] VITALS: Ht 175.3 cm; Wt 94.6 kg
[~2022-09-26 08:15] MED LIST changes: +CARV12.53 PO; +MV-M1TAB20 PO
[2022-09-26] MEDS ORDERED: LACTATED RINGERS 1,000 ML IV PRN (08:30)
[2022-09-26 09:09] LABS: BASOPHILS # (AUTO) 0.1 10^3/uL (0.0-0.1); BASOPHILS % (AUTO) 0 % (0-10); EOSINOPHILS # (AUTO) 0.3 10^3/uL (0.0-0.3); EOSINOPHILS % (AUTO) 1 % (0-10); HEMATOCRIT 41 % (40-54); HEMOGLOBIN 13.9 g/dL (13.3-17.7); LYMPHOCYTES # (AUTO) 11.4 10^3/uL (1.0-4.0); LYMPHOCYTES % (AUTO) 57 % (12-44); MEAN CORPUSCULAR HEMOGLOBIN 31 pg (25-34); MEAN CORPUSCULAR HGB CONC 34 g/dL (32-36); MEAN CORPUSCULAR VOLUME 92 fL (80-99); MEAN PLATELET VOLUME 9.9 fL (9.0-12.2); MONOCYTES # (AUTO) 4.1 10^3/uL (0.0-1.0); MONOCYTES % (AUTO) 21 % (0-12); NEUTROPHILS % (AUTO) 20 % (42-75); PLATELET COUNT 166 10^3/uL (130-400); WHITE BLOOD COUNT 19.9 10^3/uL (4.3-11.0)
--- NOTE | 2022-09-26 09:18 | Diagnostic Imaging Report ---
INDICATION: Preop clearance. COMPARISON: 06/14/2022. PA and lateral views. FINDINGS: Median sternotomy changes are again noted. Mild hyperaeration with flattening of the diaphragm is again noted. There are no acute infiltrates. No pneumothorax or pleural effusion. IMPRESSION: Postoperative residue and mild obstructive lung disease without acute change. Dictated by: Dictated on workstation # [id number]
[2022-09-26 09:27] LABS: CALCIUM 9.1 MG/DL (8.5-10.1); CREATININE SERUM 1.46 MG/DL (0.60-1.30); POTASSIUM 4.6 MMOL/L (3.6-5.0)
[2022-09-26] MEDS ORDERED: LIDOCAINE/EPI 1%-1:100,000 (XYLOCAINE) 10 ML ONE (09:42)
[2022-09-26] MEDS ORDERED: MUPIROCIN 2% OINT 22 GM (BACTROBAN) TUBE ONE (09:42)
[2022-09-26 10:04] LABS: ATYPICAL LYMPHOCYTES 25 %; EOSINOPHILS % (MANUAL) 3 %; LYMPHOCYTES % (MANUAL) 45 %; MONOCYTES % (MANUAL) 4 %; NEUTROPHILS % (MANUAL) 23 %; RBC MORPH NORMAL
[2022-09-26] MEDS ORDERED: fentaNYL INJ 100 MCG/2 ML AMP ONE (10:11)
[2022-09-26] MEDS ORDERED: LIDOCAINE PF 2% 5 ML (XYLOCAINE) VIAL ONE (10:11)
[2022-09-26] MEDS ORDERED: ONDANSETRON 4 MG/2 ML (SDV) Z0FRAN ONE (10:11)
[2022-09-26] MEDS ORDERED: proPOfol 200 MG/20 ML (DIPRIVAN) VIAL IV ONE (10:11)
[2022-09-26] MEDS ORDERED: ceFAZolin INJECTION 1,000 MG ONE (10:28)
--- NOTE | 2022-09-26 10:40 | Progress Note-Pre Operative ---
Pre-Operative Progress Note Date of Available H&P: Sep 26, 2022 Date H&P Reviewed: Sep 26, 2022 Time H&P Reviewed: 10:00 History & Physical: H&P Reviewed, Patient Examed, No changes noted Changes from last HP none Pre-Operative Diagnosis: Sccaof Right Neck-Skin RADHA TIRADO MD Sep 26, 2022 10:40
--- NOTE | 2022-09-26 10:41 | Progress Note-Post Operative ---
Post-Operative Progess Note Surgeon (s)/School Business Administrator (s) Surgeon RADHA TIRADO MD School Business Administrator n/a Pre-Operative Diagnosis Sccaof Right Neck-Skin Post-Operative Diagnosis same Post-Op Procedure Note Date of Procedure: Sep 26, 2022 Name of Procedure Performed: Excision of Scca of Right Neck with INtermediate Repair Description & Findings Description and Findings: n/a Anesthesia Type lma Estimated Blood Loss minimal Packing none. Specimen(s) collected/removed right neck lesio nfor frozen section RADHA TIRADO MD Sep 26, 2022 10:41
[2022-09-26] MEDS ORDERED: HYDROcodone/APAP 5 MG/325 MG (LORTAB) TAB PO PRN (10:45)
[2022-09-26] MEDS ORDERED: ACETAMINOPHEN 325 MG TABLET PO PRN (10:45)
[2022-09-26] MEDS ORDERED: LIDOCAINE/EPI 1%-1:100,000 (XYLOCAINE) 10 ML IJ ONE (10:47)
[2022-09-26] MEDS ORDERED: MUPIROCIN 2% OINT 22 GM (BACTROBAN) TUBE TOP ONE (10:48)
[2022-09-26] MEDS ORDERED: ceFAZolin INJECTION 1,000 MG IV ONE (10:49)
[2022-09-26] MEDS ORDERED: SEVOFLURANE (ULTANE) 15 ML INHAL SOLN ONE (11:09)
--- NOTE | 2022-09-26 14:55 | Anesthesia-General Post-Op ---
General Patient Condition Mental Status/LOC: Same as Preop Cardiovascular: Satisfactory Nausea/Vomiting: Absent Respiratory: Satisfactory Pain: Controlled Complications: Absent Post Op Complications Complications None Follow Up Care/Instructions Patient Instructions None needed. Anesthesia/Patient Condition Patient Condition Patient was doing well after the procedure with no complaints, stable vital signs, no apparent adverse anesthesia problems. No complications reported per nursing. PRITI KAMINSKI DO Sep 26, 2022 14:55
[2022-09-26] MEDS ORDERED: morphine INJ 10 MG/ML 1ML (SYR OR VIAL) IVP ONE (15:00)
[2022-09-26] MEDS ORDERED: ONDANSETRON 4 MG/2 ML (SDV) Z0FRAN IVP PRN (15:00)
== END 2022-09-26 12:45 | disposition home or self-care (01) ==
LOC: SDC 08:15
PROVIDERS: ATTEND Otolaryngology Otolaryngology/Facial Plastic Surgery
DX: C44.42 Squamous cell carcinoma of skin of scalp and neck (principal); B36.9 Superficial mycosis, unspecified; H62.42 Otitis externa in other diseases classified elsewhere, left ear; F17.200 Nicotine dependence, unspecified, uncomplicated
CPT/HCPCS: 36415; 71046; 80048; 85007; 85027; 87081; 93005

== ENCOUNTER 2022-11-27 10:54 | Outpatient (RCR) | payer MEDICARE, OTHER ==
[2022-11-27 11:13] LABS: BASOPHILS # (AUTO) 0.1 10^3/uL (0.0-0.1); BASOPHILS % (AUTO) 0 % (0-10); EOSINOPHILS # (AUTO) 0.3 10^3/uL (0.0-0.3); EOSINOPHILS % (AUTO) 2 % (0-10); HEMATOCRIT 41 % (40-54); HEMOGLOBIN 12.9 g/dL (13.3-17.7); LYMPHOCYTES # (AUTO) 10.5 10^3/uL (1.0-4.0); LYMPHOCYTES % (AUTO) 59 % (12-44); MEAN CORPUSCULAR HEMOGLOBIN 30 pg (25-34); MEAN CORPUSCULAR HGB CONC 32 g/dL (32-36); MEAN CORPUSCULAR VOLUME 95 fL (80-99); MEAN PLATELET VOLUME 10.1 fL (9.0-12.2); MONOCYTES # (AUTO) 3.2 10^3/uL (0.0-1.0); MONOCYTES % (AUTO) 18 % (0-12); NEUTROPHILS # (AUTO) 3.8 10^3/uL (1.8-7.8); NEUTROPHILS % (AUTO) 21 % (42-75); PLATELET COUNT 160 10^3/uL (130-400); WHITE BLOOD COUNT 17.9 10^3/uL (4.3-11.0)
[2022-11-27 11:32] LABS: ALBUMIN 3.8 GM/DL (3.2-4.5); BILIRUBIN,TOTAL 1.2 MG/DL (0.1-1.0); CALCIUM 8.8 MG/DL (8.5-10.1); CREATININE SERUM 1.47 MG/DL (0.60-1.30); POTASSIUM 4.2 MMOL/L (3.6-5.0); TOTAL PROTEIN 7.4 GM/DL (6.4-8.2)
== END 2022-12-17 | disposition home or self-care (01) ==
LOC: ONC 10:54
PROVIDERS: ATTEND Internal Medicine Hematology & Oncology
DX: C91.10 Chronic lymphocytic 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 (principal); I25.10 Atherosclerotic heart disease of native coronary artery without angina pectoris; I12.9 Hypertensive chronic kidney disease with stage 1 through stage 4 chronic kidney disease, or unspecified chronic kidney disease; I65.23 Occlusion and stenosis of bilateral carotid arteries; N18.30 Chronic kidney disease, stage 3 unspecified; E78.2 Mixed hyperlipidemia; E66.9 Obesity, unspecified; I48.0 Paroxysmal atrial fibrillation; Z79.01 Long term (current) use of anticoagulants; Z98.61 Coronary angioplasty status
CPT/HCPCS: 80053; 83615; 85025; G0463; 36415; 99213

== ENCOUNTER 2022-12-13 08:01 | Day surgery (SDC) | payer MEDICARE, OTHER ==
[2022-12-13] VITALS (8 sets, daily range): BP systolic 148–178; BP diastolic 62–95
[2022-12-13] MEDS ORDERED: NS IV 1000 ML 1,000 ML IV STA (08:12)
[2022-12-13] MEDS ORDERED: fentaNYL INJ 100 MCG/2 ML AMP IVP ONE (08:15)
[2022-12-13] MEDS ORDERED: LIDOCAINE 1% INJ 30 ML (XYLOCAINE) VIAL INJ ONE (08:15)
[2022-12-13] MEDS ORDERED: MIDAZOLAM 2 MG/2 ML (VERSED) VIAL IVP ONE (08:15)
[2022-12-13 08:38] LABS: ABSOLUTE RETIC # 90 10e9/uL (24-90); BASOPHILS # (AUTO) 0.1 10^3/uL (0.0-0.1); BASOPHILS % (AUTO) 0 % (0-10); EOSINOPHILS # (AUTO) 0.4 10^3/uL (0.0-0.3); EOSINOPHILS % (AUTO) 2 % (0-10); HEMATOCRIT 43 % (40-54); HEMOGLOBIN 13.9 g/dL (13.3-17.7); LYMPHOCYTES % (AUTO) 62 % (12-44); MEAN CORPUSCULAR HEMOGLOBIN 31 pg (25-34); MEAN CORPUSCULAR HGB CONC 33 g/dL (32-36); MEAN CORPUSCULAR VOLUME 94 fL (80-99); MEAN PLATELET VOLUME 10.1 fL (9.0-12.2); MONOCYTES # (AUTO) 4.1 10^3/uL (0.0-1.0); MONOCYTES % (AUTO) 19 % (0-12); NEUTROPHILS # (AUTO) 3.5 10^3/uL (1.8-7.8); NEUTROPHILS % (AUTO) 17 % (42-75); PLATELET COUNT 179 10^3/uL (130-400); RETICULOCYTE % 1.98 % (0.50-2.40); WHITE BLOOD COUNT 21.2 10^3/uL (4.3-11.0)
[2022-12-13 08:48] LABS: INR 1.3 (0.8-1.4); PROTHROMBIN TIME PATIENT 16.4 SEC (12.2-14.7)
[2022-12-13 10:04] LABS: BAND NEUTROPHILS 0 %; BASOPHILS % (MANUAL) 0 %; EOSINOPHILS % (MANUAL) 2 %; LYMPHOCYTES % (MANUAL) 65 %; MONOCYTES % (MANUAL) 3 %; NEUTROPHILS % (MANUAL) 17 %
[2022-12-13 10:05] LABS: ATYPICAL LYMPHOCYTES 13 %; RBC MORPH NORMAL
--- NOTE | 2022-12-13 10:17 | Pre-Op Note & Conscious Sedat ---
Pre-Operative Progress Note Date of Available H&P: Dec 13, 2022 Date H&P Reviewed: Dec 13, 2022 Time H&P Reviewed: 09:00 Pre-Op Diagnosis: leukemia Conscious Sedation Pre-Proced Time 09:00 ASA Score 2 For ASA 3 and 4: Consider anesthesia and medical clearance. Also, for patients with a history of failed moderate sedation consider anesthesia. Airway Lungs Heart ASA score ASA 1: a normal healthy patient ASA 2: a patient with a mild systemic disease (mid diabetes, controlled hypertension, obesity ASA 3: a patient with a severe systemic disease that limits activity (angina, COPD, prior Myocardial infarction) ASA 4: a patient with an incapacitating disease that is a constant threat to life (CHF, renal failure) ASA 5: a moribund patient not expected to survive 24 hrs. (ruptured aneurysm) ASA 6: a declared brain- patient whose organs are being harvested. For emergent operations, add the letter E after the classification Mallampati Classification Grade 2 Sedation Plan Analgesia, Amnesia, Plan communicated to team members, Discussed options with patient/fam, Discussed risks with patient/fam The patient is an appropriate candidate to undergo the planned procedure, sedation, and anesthesia. The patient immediately re-assessed prior to indication. JENNY FORREST MD Dec 13, 2022 10:17
--- NOTE | 2022-12-13 10:50 | Diagnostic Imaging Report ---
INDICATION: Leukemia. Patient presents for CT-guided bone marrow aspiration and biopsy. DETAILS OF THE PROCEDURE: The patient was brought to the CT suite and placed on the table in the prone position. Axial imaging through the pelvis was performed to evaluate for an appropriate entry site. The low back was then prepped and draped in the usual sterile fashion. A small amount of 1% lidocaine was utilized for local anesthesia. The procedure was performed utilizing conscious sedation with Radiology nursing and constant patient monitoring. The patient was given a total of 100 mcg of fentanyl intravenously. The total procedure times was approximately 5 minutes. A bone marrow needle was advanced and placed with its tip along the posterior cortex of the right iliac bone. The needle was advanced to the cortex utilizing the bone marrow drill. Two bone marrow aspirates were then obtained. Next, the bone marrow drill was utilized to obtain a bone marrow core biopsy. The needle was removed and hemostasis was obtained using manual compression. The patient tolerated the procedure well and left the Department in stable condition. IMPRESSION: Successful CT-guided bone marrow aspiration and core biopsy utilizing conscious sedation. Pathology results are currently pending. Dictated by: Dictated on workstation # [id number]
== END 2022-12-13 12:15 | disposition home or self-care (01) ==
LOC: RAD 08:01 → SDC 10:15 → RAD 12:15
PROVIDERS: ATTEND Internal Medicine Hematology & Oncology
DX: C91.10 Chronic lymphocytic 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 (principal); D47.Z9 Other specified neoplasms of uncertain behavior of lymphoid, hematopoietic and related tissue; E66.9 Obesity, unspecified; I25.10 Atherosclerotic heart disease of native coronary artery without angina pectoris; I12.9 Hypertensive chronic kidney disease with stage 1 through stage 4 chronic kidney disease, or unspecified chronic kidney disease; N18.9 Chronic kidney disease, unspecified; I49.8 Other specified cardiac arrhythmias; I48.0 Paroxysmal atrial fibrillation; E78.2 Mixed hyperlipidemia; I65.23 Occlusion and stenosis of bilateral carotid arteries; Z68.31 Body mass index [BMI] 31.0-31.9, adult; Z87.891 Personal history of nicotine dependence; Z79.01 Long term (current) use of anticoagulants; Z95.1 Presence of aortocoronary bypass graft
CPT/HCPCS: 36415; 38222; 77012; 85007; 85027; 85045; 85055; 85610; 85730

== ENCOUNTER 2022-12-26 09:19 | Outpatient (RCR) | payer MEDICARE, OTHER | END 2023-01-14 | disposition home or self-care (01) | LOC: ONC 09:19 | PROVIDERS: ATTEND Internal Medicine Hematology & Oncology | DX: C91.10 Chronic lymphocytic 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 (principal); I25.10 Atherosclerotic heart disease of native coronary artery without angina pectoris; I12.9 Hypertensive chronic kidney disease with stage 1 through stage 4 chronic kidney disease, or unspecified chronic kidney disease; I65.23 Occlusion and stenosis of bilateral carotid arteries; N18.30 Chronic kidney disease, stage 3 unspecified; E78.2 Mixed hyperlipidemia; E66.9 Obesity, unspecified; I48.0 Paroxysmal atrial fibrillation; Z79.01 Long term (current) use of anticoagulants; Z98.61 Coronary angioplasty status ==

== ENCOUNTER 2023-02-20 09:37 | Outpatient (RCR) | payer MEDICARE, OTHER ==
[2023-02-20 09:50] LABS: BASOPHILS # (AUTO) 0.1 10^3/uL (0.0-0.1); BASOPHILS % (AUTO) 0 % (0-10); EOSINOPHILS # (AUTO) 0.3 10^3/uL (0.0-0.3); EOSINOPHILS % (AUTO) 1 % (0-10); HEMATOCRIT 41 % (40-54); HEMOGLOBIN 13.4 g/dL (13.3-17.7); LYMPHOCYTES # (AUTO) 15.9 10^3/uL (1.0-4.0); LYMPHOCYTES % (AUTO) 65 % (12-44); MEAN CORPUSCULAR HEMOGLOBIN 31 pg (25-34); MEAN CORPUSCULAR HGB CONC 33 g/dL (32-36); MEAN CORPUSCULAR VOLUME 93 fL (80-99); MEAN PLATELET VOLUME 10.2 fL (9.0-12.2); MONOCYTES # (AUTO) 4.5 10^3/uL (0.0-1.0); MONOCYTES % (AUTO) 18 % (0-12); NEUTROPHILS # (AUTO) 3.6 10^3/uL (1.8-7.8); NEUTROPHILS % (AUTO) 15 % (42-75); PLATELET COUNT 179 10^3/uL (130-400); WHITE BLOOD COUNT 24.5 10^3/uL (4.3-11.0)
[2023-02-20 10:09] LABS: ALBUMIN 3.9 GM/DL (3.2-4.5); CALCIUM 8.9 MG/DL (8.5-10.1); CREATININE SERUM 1.58 MG/DL (0.60-1.30); POTASSIUM 4.5 MMOL/L (3.6-5.0); TOTAL PROTEIN 7.9 GM/DL (6.4-8.2)
== END 2023-03-16 | disposition home or self-care (01) ==
LOC: ONC 09:37
PROVIDERS: ATTEND Internal Medicine Hematology & Oncology
DX: C91.10 Chronic lymphocytic 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 (principal); I25.10 Atherosclerotic heart disease of native coronary artery without angina pectoris; I12.9 Hypertensive chronic kidney disease with stage 1 through stage 4 chronic kidney disease, or unspecified chronic kidney disease; I65.23 Occlusion and stenosis of bilateral carotid arteries; N18.30 Chronic kidney disease, stage 3 unspecified; E78.2 Mixed hyperlipidemia; E66.9 Obesity, unspecified; I48.0 Paroxysmal atrial fibrillation; Z79.01 Long term (current) use of anticoagulants; Z98.61 Coronary angioplasty status
CPT/HCPCS: 36415; 80053; 85025

== ENCOUNTER → 2023-03-31 | Outpatient (CLI) | payer MEDICARE, OTHER ==
--- NOTE | 2023-03-31 08:58 | Diagnostic Imaging Report ---
PROCEDURE: US left lower extremity venous. TECHNIQUE: Multiple real-time grayscale images were obtained over the left lower extremity in various projections. Additional duplex Doppler and color Doppler images were also obtained. INDICATION: Left lower extremity swelling. FINDINGS: There is no evidence of left lower extremity DVT. The left lower extremity deep venous system shows normal compressibility with normal response to augmentation and Valsalva. No fluid collection or mass is detected. IMPRESSION: No evidence of left lower extremity DVT. Dictated by: Dictated on workstation # [id number]
== END ==
LOC: RAD 07:43
PROVIDERS: ATTEND Internal Medicine Cardiovascular Disease
DX: R22.42 Localized swelling, mass and lump, left lower limb (principal)

== ENCOUNTER 2023-04-17 08:49 | Outpatient (RCR) | payer MEDICARE, OTHER ==
[2023-04-17 09:44] LABS: BASOPHILS # (AUTO) 0.1 10^3/uL (0.0-0.1); BASOPHILS % (AUTO) 0 % (0-10); EOSINOPHILS # (AUTO) 0.4 10^3/uL (0.0-0.3); EOSINOPHILS % (AUTO) 1 % (0-10); HEMATOCRIT 41 % (40-54); HEMOGLOBIN 13.4 g/dL (13.3-17.7); LYMPHOCYTES # (AUTO) 25.2 10^3/uL (1.0-4.0); LYMPHOCYTES % (AUTO) 76 % (12-44); MEAN CORPUSCULAR HEMOGLOBIN 30 pg (25-34); MEAN CORPUSCULAR HGB CONC 33 g/dL (32-36); MEAN CORPUSCULAR VOLUME 92 fL (80-99); MONOCYTES # (AUTO) 3.9 10^3/uL (0.0-1.0); MONOCYTES % (AUTO) 12 % (0-12); NEUTROPHILS # (AUTO) 3.7 10^3/uL (1.8-7.8); NEUTROPHILS % (AUTO) 11 % (42-75); PLATELET COUNT 164 10^3/uL (130-400)
[2023-04-17 09:49] LABS: WHITE BLOOD COUNT 33.3 10^3/uL (4.3-11.0)
[2023-04-17 09:58] LABS: ALBUMIN 3.7 GM/DL (3.2-4.5); BILIRUBIN,TOTAL 1.1 MG/DL (0.1-1.0); CREATININE SERUM 1.68 MG/DL (0.60-1.30); POTASSIUM 4.5 MMOL/L (3.6-5.0); TOTAL PROTEIN 7.3 GM/DL (6.4-8.2)
== END 2023-05-16 | disposition home or self-care (01) ==
LOC: ONC 08:49
PROVIDERS: ATTEND Internal Medicine Hematology & Oncology
DX: C91.10 Chronic lymphocytic 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 (principal); I25.10 Atherosclerotic heart disease of native coronary artery without angina pectoris; I12.9 Hypertensive chronic kidney disease with stage 1 through stage 4 chronic kidney disease, or unspecified chronic kidney disease; I65.23 Occlusion and stenosis of bilateral carotid arteries; N18.30 Chronic kidney disease, stage 3 unspecified; E78.2 Mixed hyperlipidemia; E66.9 Obesity, unspecified; I48.0 Paroxysmal atrial fibrillation; Z79.01 Long term (current) use of anticoagulants; Z98.61 Coronary angioplasty status
CPT/HCPCS: 80053; 85025

== ENCOUNTER 2023-06-12 08:49 | Outpatient (RCR) | payer MEDICARE, OTHER ==
[2023-06-12 09:06] LABS: BASOPHILS # (AUTO) 0.1 10^3/uL (0.0-0.1); BASOPHILS % (AUTO) 0 % (0-10); EOSINOPHILS # (AUTO) 0.3 10^3/uL (0.0-0.3); EOSINOPHILS % (AUTO) 1 % (0-10); HEMATOCRIT 40 % (40-54); HEMOGLOBIN 12.7 g/dL (13.3-17.7); LYMPHOCYTES # (AUTO) 16.6 10^3/uL (1.0-4.0); LYMPHOCYTES % (AUTO) 71 % (12-44); MEAN CORPUSCULAR HEMOGLOBIN 31 pg (25-34); MEAN CORPUSCULAR HGB CONC 32 g/dL (32-36); MEAN CORPUSCULAR VOLUME 96 fL (80-99); MEAN PLATELET VOLUME 10.4 fL (9.0-12.2); MONOCYTES # (AUTO) 3.5 10^3/uL (0.0-1.0); MONOCYTES % (AUTO) 15 % (0-12); NEUTROPHILS # (AUTO) 2.7 10^3/uL (1.8-7.8); NEUTROPHILS % (AUTO) 12 % (42-75); PLATELET COUNT 150 10^3/uL (130-400); WHITE BLOOD COUNT 23.2 10^3/uL (4.3-11.0)
[2023-06-12 09:25] LABS: ALBUMIN 3.6 GM/DL (3.2-4.5); CALCIUM 8.8 MG/DL (8.5-10.1); CREATININE SERUM 1.52 MG/DL (0.60-1.30); POTASSIUM 4.5 MMOL/L (3.6-5.0); TOTAL PROTEIN 6.8 GM/DL (6.4-8.2)
== END 2023-06-16 | disposition home or self-care (01) ==
LOC: ONC 08:49
PROVIDERS: ATTEND Internal Medicine Hematology & Oncology
DX: C91.10 Chronic lymphocytic 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 (principal); I25.10 Atherosclerotic heart disease of native coronary artery without angina pectoris; I12.9 Hypertensive chronic kidney disease with stage 1 through stage 4 chronic kidney disease, or unspecified chronic kidney disease; I65.23 Occlusion and stenosis of bilateral carotid arteries; N18.30 Chronic kidney disease, stage 3 unspecified; E78.2 Mixed hyperlipidemia; E66.9 Obesity, unspecified; I48.0 Paroxysmal atrial fibrillation; Z79.01 Long term (current) use of anticoagulants; Z98.61 Coronary angioplasty status
CPT/HCPCS: 36415; 80053; 82274; 85025

== ENCOUNTER 2023-07-10 09:34 | Outpatient (RCR) | payer MEDICARE, OTHER ==
[2023-07-10 09:48] LABS: BASOPHILS # (AUTO) 0.1 10^3/uL (0.0-0.1); BASOPHILS % (AUTO) 0 % (0-10); EOSINOPHILS # (AUTO) 0.4 10^3/uL (0.0-0.3); EOSINOPHILS % (AUTO) 1 % (0-10); HEMATOCRIT 40 % (40-54); HEMOGLOBIN 12.6 g/dL (13.3-17.7); LYMPHOCYTES % (AUTO) 65 % (12-44); MEAN CORPUSCULAR HEMOGLOBIN 30 pg (25-34); MEAN CORPUSCULAR HGB CONC 31 g/dL (32-36); MEAN CORPUSCULAR VOLUME 97 fL (80-99); MEAN PLATELET VOLUME 10.4 fL (9.0-12.2); MONOCYTES # (AUTO) 5.4 10^3/uL (0.0-1.0); MONOCYTES % (AUTO) 22 % (0-12); NEUTROPHILS # (AUTO) 2.8 10^3/uL (1.8-7.8); NEUTROPHILS % (AUTO) 11 % (42-75); PLATELET COUNT 151 10^3/uL (130-400); WHITE BLOOD COUNT 24.6 10^3/uL (4.3-11.0)
[2023-07-10 10:08] LABS: ALBUMIN 3.6 GM/DL (3.2-4.5); BILIRUBIN,TOTAL 1.1 MG/DL (0.1-1.0); CALCIUM 8.6 MG/DL (8.5-10.1); CREATININE SERUM 1.51 MG/DL (0.60-1.30); POTASSIUM 4.6 MMOL/L (3.6-5.0); TOTAL PROTEIN 6.9 GM/DL (6.4-8.2)
== END 2023-07-17 | disposition home or self-care (01) ==
LOC: ONC 09:34
PROVIDERS: ATTEND Internal Medicine Hematology & Oncology
DX: C91.10 Chronic lymphocytic 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 (principal); I25.10 Atherosclerotic heart disease of native coronary artery without angina pectoris; I12.9 Hypertensive chronic kidney disease with stage 1 through stage 4 chronic kidney disease, or unspecified chronic kidney disease; I65.23 Occlusion and stenosis of bilateral carotid arteries; N18.30 Chronic kidney disease, stage 3 unspecified; E78.2 Mixed hyperlipidemia; E66.9 Obesity, unspecified; I48.0 Paroxysmal atrial fibrillation; Z79.01 Long term (current) use of anticoagulants; Z98.61 Coronary angioplasty status
CPT/HCPCS: 80053; 82728; 83540; 83550; 85025; G0463; 36415; 99214

== ENCOUNTER 2023-09-10 09:58 | Outpatient (RCR) | payer MEDICARE, OTHER ==
[2023-09-10 10:29] LABS: BASOPHILS # (AUTO) 0.1 10^3/uL (0.0-0.1); BASOPHILS % (AUTO) 0 % (0-10); EOSINOPHILS # (AUTO) 0.4 10^3/uL (0.0-0.3); EOSINOPHILS % (AUTO) 1 % (0-10); HEMATOCRIT 41 % (40-54); HEMOGLOBIN 13.1 g/dL (13.3-17.7); LYMPHOCYTES # (AUTO) 22.3 10^3/uL (1.0-4.0); LYMPHOCYTES % (AUTO) 70 % (12-44); MEAN CORPUSCULAR HEMOGLOBIN 31 pg (25-34); MEAN CORPUSCULAR HGB CONC 32 g/dL (32-36); MEAN CORPUSCULAR VOLUME 96 fL (80-99); MEAN PLATELET VOLUME 10.7 fL (9.0-12.2); MONOCYTES # (AUTO) 6.2 10^3/uL (0.0-1.0); MONOCYTES % (AUTO) 19 % (0-12); NEUTROPHILS # (AUTO) 2.9 10^3/uL (1.8-7.8); NEUTROPHILS % (AUTO) 9 % (42-75); PLATELET COUNT 180 10^3/uL (130-400)
[2023-09-10 10:38] LABS: ALBUMIN 3.8 GM/DL (3.2-4.5); BILIRUBIN,TOTAL 1.1 MG/DL (0.1-1.0); CREATININE SERUM 1.77 MG/DL (0.60-1.30); POTASSIUM 4.3 MMOL/L (3.6-5.0); TOTAL PROTEIN 7.8 GM/DL (6.4-8.2); WHITE BLOOD COUNT 31.9 10^3/uL (4.3-11.0)
== END 2023-09-16 | disposition home or self-care (01) ==
LOC: ONC 09:58
PROVIDERS: ATTEND Internal Medicine Hematology & Oncology
DX: C91.10 Chronic lymphocytic 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 (principal); I25.10 Atherosclerotic heart disease of native coronary artery without angina pectoris; I12.9 Hypertensive chronic kidney disease with stage 1 through stage 4 chronic kidney disease, or unspecified chronic kidney disease; N18.30 Chronic kidney disease, stage 3 unspecified; I65.23 Occlusion and stenosis of bilateral carotid arteries; E78.2 Mixed hyperlipidemia; E66.9 Obesity, unspecified; I48.0 Paroxysmal atrial fibrillation; Z79.01 Long term (current) use of anticoagulants; Z98.61 Coronary angioplasty status
CPT/HCPCS: 80053; 82728; 83540; 83550; 85025; G0463; 36415; 99214